=== PATIENT | male | born 1950 | race Caucasian/White ===

== ENCOUNTER → 2017-06-10 10:19 | Outpatient (CLI) | payer MEDICARE, OTHER, SELFPAY ==
[2017-06-10 12:46] LABS: Absolute Lymphocyte Count 1.05 X10^3/ul (0.83-4.51); Absolute Neutrophil Count 3.7 X10^3/uL (2.0-7.7); Basophil# 0.03 X10^3/uL; Basophil% 0.6 % (0-1); Eosinophil# 0.03 X10^3/uL; Eosinophils% 0.6 % (0-5); Hematocrit 40.5 % (40-54); Hemoglobin 13.7 g/dl (13.0-16.5); Lymphocyte # 1.05 X10^3/ul (4.0); Lymphocyte % 19.7 % (19-41); Mean Corp Hgb Conc 33.8 g/gl (32-36); Mean Corpuscular Hgb 32.3 pg (27.0-32.0); Mean Corpuscular Volume 95.5 fL (80-94); Mean Platelet Vol. 9.7 fl (6.2-12.0); Monocyte% 9.4 % (0-10); Neutrophil # 3.71 X10^3/uL (2.7-7.7); Neutrophil % 69.5 % (47-70); Platelet Count 203 K/mm3 (150-450); RBC Distribution Width CV 13.6 % (11.6-14.6); RBC Distribution Width SD 45.6 fl (35.1-43.9); Red Blood Count 4.24 M/mm3 (4.6-6.2); White Blood Count 5.3 K/mm3 (4.4-11.0)
[2017-06-10 12:50] LABS: ALB/GLOB Ratio 1.2 RATIO (0.9-2.4); AST(SGOT) 20 U/L (15-37); Alanine Aminotransfer ALT/SGPT 30 U/L (16-61); Albumin, Serum 3.8 g/dL (3.2-5.0); Alkaline Phosphatase 76 U/L (45-117); Anion Gap 8 (5-15); BUN 14 mg/dL (7-18); BUN/Creat Ratio 10.9 RATIO (10-20); CRP 6.72 mg/L (0.0-3.0); Calcium,Total 9.4 mg/dL (8.5-10.1); Chloride 102 mmol/L (98-107); Creatinine, Serum 1.29 mg/dL (0.70-1.30); EST Glomerular Filtration Rate 59 mL/min (>60); Est Glom Filt Rate - Afr Amer 72 mL/min (>60); Globulin 3.2 g/dL (2.2-4.2); Glucose 109 mg/dL (74-106); Potassium 3.9 mmol/L (3.5-5.1); Sodium Level 139 mmol/L (136-145); Uric Acid 10.7 mg/dL (3.5-7.2)
[2017-06-10 12:55] LABS: POSITIVE COUNT NO; POSITIVE DIFFERENTIAL NO; POSITIVE MORPHOLOGY NO
[2017-06-10 13:02] LABS: Vitamin D,25 Hydroxy 21.2 ng/mL (29.95-100.01)
== END ==
PROVIDERS: Family Provider Family Medicine; PCP Family Medicine; Visit Provider Family Medicine
DX: M10.9 Gout, unspecified (principal); M77.42 Metatarsalgia, left foot
CPT/HCPCS: 36415; 80053; 82306; 84550; 85025; 86140

== ENCOUNTER → 2017-07-14 13:20 | Outpatient (CLI) | payer MEDICARE, OTHER, SELFPAY ==
--- NOTE | 2017-07-14 13:20 | DT_ITS ---
This patient was seen during an EMR downtime July 13, 2017 - July 20, 2017. This patient may have a combination of paper and electronic documentation or all paper documentation. All documentation is viewable within the e-chart portion of [facility] for each patient visit.
[2017-07-19 09:49] LABS: ALB/GLOB Ratio 1.3 RATIO (0.9-2.4); AST(SGOT) 28 U/L (15-37); Albumin, Serum 3.8 g/dL (3.2-5.0); Alkaline Phosphatase 79 U/L (45-117); BUN 14 mg/dL (7-18); BUN/Creat Ratio 11.9 RATIO (10-20); Creatinine, Serum 1.18 mg/dL (0.70-1.30); EST Glomerular Filtration Rate 66 mL/min (>60); Est Glom Filt Rate - Afr Amer 80 mL/min (>60); Glucose 97 mg/dL (74-106); Protein, Total 6.8 g/dL (6.4-8.2); Uric Acid 6.2 mg/dL (3.5-7.2)
[2017-07-19 09:50] LABS: Alanine Aminotransfer ALT/SGPT 34 U/L (16-61); Anion Gap 8 (5-15); Chloride 106 mmol/L (98-107); Potassium 3.5 mmol/L (3.5-5.1); Sodium Level 140 mmol/L (136-145)
== END ==
PROVIDERS: Family Provider Family Medicine; PCP Family Medicine; Visit Provider Family Medicine
DX: M10.9 Gout, unspecified (principal)
CPT/HCPCS: 80053; 84550

== ENCOUNTER → 2017-09-17 14:04 | Outpatient (CLI) | payer MEDICARE, OTHER, SELFPAY ==
--- NOTE | 2017-09-17 14:11 | RAD_ITS ---
STUDY: X-RAY - RIGHT KNEE REASON FOR EXAM: Male, 67 years old. Right knee was hit by a chair on previous night, pain TECHNIQUE: 4 view(s) of the knee. COMPARISON: None. FINDINGS: Normal visualized distal femur. Normal visualized proximal tibia and fibula. Normal proximal tibiofibular articulation. Normal medial femorotibial compartment. Normal lateral femorotibial compartment. Normal patellofemoral articulation. There is no demonstrated joint effusion. The soft tissue structures are unremarkable. RAD/Knee 4 or More Views IMPRESSION: Normal x-ray examination of the knee. Electronically Signed: Abel Crawley MD at 8:20 EDT , Service support ,
== END ==
PROVIDERS: Family Provider Family Medicine; PCP Family Medicine; Visit Provider Nurse Practitioner Family
DX: S89.91XA Unspecified injury of right lower leg, initial encounter (principal)
CPT/HCPCS: 73562; 73564

== ENCOUNTER → 2017-10-29 08:23 | Outpatient (CLI) | payer MEDICARE, OTHER, SELFPAY ==
[2017-10-29 10:25] LABS: Absolute Lymphocyte Count 0.93 X10^3/ul (0.83-4.51); Absolute Neutrophil Count 2.9 X10^3/uL (2.0-7.7); Basophil# 0.03 X10^3/uL; Basophil% 0.7 % (0-1); Eosinophil# 0.15 X10^3/uL; Eosinophils% 3.4 % (0-5); Hematocrit 37.8 % (40-54); Hemoglobin 12.6 g/dl (13.0-16.5); Lymphocyte # 0.93 X10^3/ul (4.0); Lymphocyte % 20.9 % (19-41); Mean Corp Hgb Conc 33.3 g/gl (32-36); Mean Corpuscular Volume 95.9 fL (80-94); Mean Platelet Vol. 9.6 fl (6.2-12.0); Neutrophil # 2.94 X10^3/uL (2.7-7.7); Platelet Count 165 K/mm3 (150-450); RBC Distribution Width CV 13.7 % (11.6-14.6); RBC Distribution Width SD 48.2 fl (35.1-43.9); Red Blood Count 3.94 M/mm3 (4.6-6.2); White Blood Count 4.5 K/mm3 (4.4-11.0)
[2017-10-29 10:38] LABS: POSITIVE COUNT NO; POSITIVE DIFFERENTIAL NO; POSITIVE MORPHOLOGY NO
[2017-10-29 10:44] LABS: Vitamin D,25 Hydroxy 19.9 ng/mL (29.95-100.01)
[2017-10-29 10:59] LABS: ALB/GLOB Ratio 1.2 RATIO (0.9-2.4); AST(SGOT) 23 U/L (15-37); Alanine Aminotransfer ALT/SGPT 37 U/L (16-61); Albumin, Serum 3.7 g/dL (3.2-5.0); Alkaline Phosphatase 90 U/L (45-117); Anion Gap 11 (5-15); BUN 15 mg/dL (7-18); BUN/Creat Ratio 12.4 RATIO (10-20); Calcium,Total 8.6 mg/dL (8.5-10.1); Chloride 103 mmol/L (98-107); Cholesterol 192 mg/dL (200); Creatinine, Serum 1.21 mg/dL (0.70-1.30); EST Glomerular Filtration Rate 64 mL/min (>60); Est Glom Filt Rate - Afr Amer 77 mL/min (>60); Ferritin 287 ng/mL (26-388); Glucose 115 mg/dL (74-106); High Density Lipoprotein 28 mg/dL; PSA,Total - Annual Screen 0.49 ng/mL (0.00-4.00); Protein, Total 6.7 g/dL (6.4-8.2); Sodium Level 141 mmol/L (136-145); Thyroid Stim Hormone (TSH) 2.07 uIU/mL (0.358-3.74); Triglycerides 524 mg/dL; Uric Acid 6.1 mg/dL (3.5-7.2)
== END ==
PROVIDERS: Family Provider Family Medicine; PCP Family Medicine; Visit Provider Family Medicine
DX: Z00.00 Encounter for general adult medical examination without abnormal findings (principal); E79.0 Hyperuricemia without signs of inflammatory arthritis and tophaceous disease; M10.9 Gout, unspecified
CPT/HCPCS: 36415; 80053; 80061; 82306; 82728; 84153; 84443; 84550; 85025; G0103

== ENCOUNTER 2017-12-13 14:04 | Observation (INO) | payer MEDICARE, OTHER, SELFPAY ==
[2017-12-13] VITALS (8 sets, daily range): BP systolic 95–112; BP diastolic 53–73; PULSE 53–67; RESP 15–20; TEMP 36.4–36.6; O2SAT 96–100; BMI 30.8; BMI 31.1; BMI 31.2
--- NOTE | 2017-12-13 14:15 | NURSING ---
NO OLD EKGS
--- NOTE | 2017-12-13 14:17 | RAD_ITS ---
STUDY: X-RAY CHEST REASON FOR EXAM: Male, 67 years old. Chest pain TECHNIQUE: AP COMPARISON: 11/26/2016 FINDINGS: Lungs are mildly underexpanded with atelectasis in both lung bases. No airspace consolidation. EKG leads project over the chest. There is no demonstrated pleural abnormality. Normal size heart. Normal mediastinum and byron. Normal visualized pulmonary arteries. There is atherosclerotic calcification of the aortic arch with tortuosity. No acute bony process. There is no demonstrated abnormality of the visualized soft tissue structures of the upper abdomen. RAD/Chest 1 View (Portable) IMPRESSION: 1. Hypoinflation with mild bibasilar atelectasis. 2. No airspace consolidation. Electronically Signed: Abel Crawley MD at 15:21 EST , Service support ,
--- NOTE | 2017-12-13 14:17 | EKG12_ITS ---
Test Reason : CP Blood Pressure : / mmHG Vent. Rate : 059 BPM Atrial Rate : 059 BPM P-R Int : 168 ms QRS Dur : 098 ms QT Int : 422 ms P-R-T Axes : 019 017 039 degrees QTc Int : 417 ms Sinus bradycardia Otherwise normal ECG Confirmed by SAPNA ACOSTA, MARLON ([id number]), editor managing newspaper ATILIO PLEITEZ ([id number]) on 12/16/2017 1:37:49 PM Referred By: GRADY Confirmed By:MARLON ALEJO MD
[2017-12-13 14:37] LABS: Absolute Lymphocyte Count 1.46 X10^3/ul (0.83-4.51); Absolute Neutrophil Count 3.6 X10^3/uL (2.0-7.7); Basophil# 0.04 X10^3/uL; Basophil% 0.7 % (0-1); Eosinophil# 0.15 X10^3/uL; Eosinophils% 2.7 % (0-5); Hematocrit 38.3 % (40-54); Hemoglobin 12.5 g/dl (13.0-16.5); Lymphocyte # 1.46 X10^3/ul (4.0); Lymphocyte % 25.9 % (19-41); Mean Corp Hgb Conc 32.6 g/gl (32-36); Mean Corpuscular Hgb 32.1 pg (27.0-32.0); Mean Corpuscular Volume 98.5 fL (80-94); Mean Platelet Vol. 9.3 fl (6.2-12.0); Monocyte% 7.1 % (0-10); Neutrophil # 3.58 X10^3/uL (2.7-7.7); Neutrophil % 63.4 % (47-70); Platelet Count 208 K/mm3 (150-450); RBC Distribution Width CV 14.2 % (11.6-14.6); RBC Distribution Width SD 51.2 fl (35.1-43.9); Red Blood Count 3.89 M/mm3 (4.6-6.2); White Blood Count 5.6 K/mm3 (4.4-11.0)
[2017-12-13] MEDS: Aspirin 81 MG TAB.CHEW 324 MG PO (14:40)
[2017-12-13] MEDS: 0.9% Normal Saline 1,000 ML 150 ML IV (14:40)
[2017-12-13 14:41] LABS: POSITIVE COUNT NO; POSITIVE DIFFERENTIAL NO; POSITIVE MORPHOLOGY NO
[2017-12-13 14:50] LABS: Anion Gap 5 (5-15); BUN 17 mg/dL (7-18); BUN/Creat Ratio 14.2 RATIO (10-20); Calcium,Total 8.6 mg/dL (8.5-10.1); Chloride 102 mmol/L (98-107); EST Glomerular Filtration Rate 64 mL/min (>60); Est Glom Filt Rate - Afr Amer 78 mL/min (>60); Estimated Creatinine Clearance 61.68 ml/min; Glucose 75 mg/dL (74-106); Potassium 3.7 mmol/L (3.5-5.1); Sodium Level 136 mmol/L (136-145)
--- NOTE | 2017-12-13 14:54 | ED.VISSUMM ---
- ER Visit Summary Date of Service: 12/13/17 Chief Complaint: Chest pain History of Present Illness: The patient is a [address] Arnaldo Casiano. He reports that he has had intermittent chest pain for the past 5 days. States the first 2 episodes were Thursday and when he was riding an exercise bike. States the pain was a sharp left-sided pain that lasted approximately 2 hours. Was 4 out of 10 at worst and is pain-free currently. States that it was worsened by exertion relieved by rest. He was short of breath and diaphoretic with this. Reports that today he had an episode while he was at rest. Physical Examination: Vitals: Stable. Afebrile. General: Well-nourished and well-developed. Head: Normocephalic atraumatic. Neck: Supple, no lymphadenopathy. No JVD. Nontender. Cardiovascular: Regular rate and rhythm. 2 out of 6 systolic murmur. Respiratory: No respiratory distress. Clear to auscultation bilaterally. Abdominal: Soft, nontender, nondistended, normal bowel sounds. No guarding, rebound, or peritoneal signs. Back: Nontender. Extremities: Nontender, no edema. Skin: Normal color, no rash. Neurologic: Alert and oriented ?3. Cranial nerves II through XII are intact. Normal strength and sensation. Psych: Normal affect. Test Results: EKG is sinus bradycardia at 59 with no acute changes. Chest x-ray shows no acute disease. CBC is more for an H&H 12.5 and 30.3. Chem-7 is normal. Troponin is negative. Emergency Department Course and Treatment: Patient was treated with aspirin. Is been pain-free while here. Treatment Plan: Patient's RACHEL score is only 1. However, his history is very concerning for unstable angina. He will be admitted to the hospital for further evaluation and treatment. Disposition: Admitted in stable condition. Impression: 1. Chest pain. 2. RACHEL score 1. This note was generated with Knock Knock dictation software. It may contain incorrect words, spelling, and punctuation that were not noted in review of the chart prior to signing ED Disposition - Plan for ED Patient: Chief Complaint: Chest Pain Referrals: Arnaldo Casiano MD [Primary Care Provider] -
--- NOTE | 2017-12-13 15:35 | HP.PCM_ITS ---
<Vipin Amos - Last Filed: 12/13/17 15:26> Problem List (1) Chest pain Status: Acute (2) HTN (hypertension) Status: Chronic (3) GERD (gastroesophageal reflux disease) Status: Chronic History of Present Illness Date of Admission: 12/13/17 Chief Complaint: chest pain The patient is a 67 year old M with a pmhx of HTN, GERD, who presents to the ER with chest pain that has occurred 3x this past week. He has not felt this before. He developed this first on Thursday. He switched from a recumbant exercise bike to an upright and was pedaling hard and started to have sharp chest pain over the left breast that he described as a muscle cramp. It occurred again with the same exercise on . Today he woke up with a dull ache over this area 02/18 which is still present. Today he denies radiation, SOB, palp, LH, dizziness, or diaphoresis. He had a stress test about 7 years ago that was negative. His dad did have 3x OR's by the age of 60, his mom had a stroke. He does not smoke. [] Past Medical History Past Medical History (Chronic Problems): Chronic Problems HTN (hypertension) (Chronic) GERD (gastroesophageal reflux disease) (Chronic) Allergies Penicillins Allergy (Verified 12/13/17 14:05) Anaphylaxis STEROIDS Adverse Reaction (Uncoded 12/13/17 14:06) Shortness of breath Home Medications: Ambulatory Orders Medication Instructions Recorded Hydrochlorothiazide 12.5 mg PO DAILY 08/15/13 Lisinopril [Zestril] 20 mg PO BID 04/28/14 Magnesium Oxide [Magnesium] 250 mg PO DAILY 04/28/14 Allopurinol [Zyloprim] 200 mg PO DAILY 12/13/17 Famotidine 40 mg PO DAILY 12/13/17 Surgical History: herniorrhaphy Psychiatric History: No pertinent psych hx Lives: Spouse/ Significant Other Smoking Status: Never smoker Tobacco Use: Non-smoker Alcohol: None Drugs: None - *Family History Maternal History Items: Stroke Paternal History Items: Heart Disease - 3x OR by the age of 60 Review of Systems Constitutional: Denies: Chills, Fever, Weight Change HEENT: Denies: Head Aches, Sinus Congestion, Sinus Drainage Cardiovascular: Reports: Chest Pressure. Denies: Chest Pain, Palpitations Respiratory: Denies: Cough, Shortness of breath at rest, Sputum production Gastrointestinal: Denies: Abdominal Pain, Nausea, Vomiting Genitourinary: Denies: Dysuria Musculoskeletal: Denies: Joint Pain, Joint Tenderness Skin: Denies: Rash, Wounds Neurological: Denies: Numbness, Tingling, Focal weakness Psychiatric: Denies: Anxiety, Depression, Homicidal Ideations, Suicidal Ideations Hematologic/ Lymphatic: Denies: Easy Bruising, Easy Bleeding VTE Information - Inpt Only VTE Present on Admission: No VTE Mechan Device Prophylaxis: None VTE Pharm Prophylaxis ordered?: No Reason prophylaxis not ordered:: Procedure Not Indicated Patient Problems: Active and Suspected Problems Chest pain (Acute) - Physical Exam General: Alert, Oriented x3, Cooperative HEENT: Atraumatic, PERRLA, EOMI, Normocephalic Neck: Supple, No JVD, Negative Carotid Bruits Lungs: Clear to auscultation, Normal air movement Cardiovascular: Regular rate, No murmurs Abdomen: Bowel Sounds Present, Soft, Non Tender Extremities: No edema, Capillary Refill Less than 3 Seconds Skin: No rashes, No breakdown Musculoskeletal: No Tenderness to Palpation of Joints or Extremities Neurological: Cranial nerves II-XII grossly intact Psych/Mental Status: Normal Affect, Appropriate, Alert and oriented to time, place, person, mood and affect Vital Signs Temp Pulse Resp BP Pulse Ox 97.6 F L 67 18 112/71 98 12/13/17 14:06 12/13/17 14:06 12/13/17 14:06 12/13/17 14:06 12/13/17 14:06 Oxygen Flow Rate (L/min) 2 Oxygen Delivery Method Nasal Cannula Weight: 215 lb Body Mass Index (BMI) 30.8 Laboratory Tests Past 24 Hrs 12/13/17 12/13/17 14:18 14:18 WBC 5.6 RBC 3.89 L Hgb 12.5 L Hct 38.3 L MCV 98.5 H MCH 32.1 H MCHC 32.6 RDW 14.2 RDW Differential 51.2 H Plt Count 208 MPV 9.3 Immature Gran % (Auto) 0.200 Neut % (Auto) 63.4 Lymph % (Auto) 25.9 [place] % (Auto) 7.1 Eos % (Auto) 2.7 Baso % (Auto) 0.7 Absolute Neuts (auto) 3.6 Absolute Lymphs (auto) 1.46 Total Counted Not Reportable Sodium 136 Potassium 3.7 Chloride 102 Carbon Dioxide 29.0 Anion Gap 5 BUN 17 Creatinine 1.20 Estim Creat Clear Calc 61.68 Est GFR (MDRD) Af Amer 78 Est GFR (MDRD) Non-Af 64 BUN/Creatinine Ratio 14.2 Glucose 75 Calcium 8.6 Troponin I < 0.015 Assessment/Plan All Active Problems Chest pain (Acute) Contusion of left hip (Acute) 1. Chest pain - negative trop, cxr, EKG. Risk factors include + family hx, htn, age. Cycle enzymes. Repeat AM EKG. Stress test in AM. Maintain on tele. 2. HTN - stable 3. GERD - pepcid 4. Gout - allopurinol DVT ppx: early ambulation This patient was seen by Vipin Amos PA-C under the supervision of Doctor Marleni. <Jack Yepez F - Last Filed: 12/13/17 16:04> History of Present Illness The patient is a 67 year old M [] Past Medical History Allergies Penicillins Allergy (Verified 12/13/17 14:05) Anaphylaxis STEROIDS Adverse Reaction (Uncoded 12/13/17 14:06) Shortness of breath - Physical Exam Vital Signs Temp Pulse Resp BP Pulse Ox 97.6 F L 61 20 H 103/73 98 12/13/17 14:06 12/13/17 15:33 12/13/17 15:33 12/13/17 15:33 12/13/17 15:33 Oxygen Flow Rate (L/min) 2 Oxygen Delivery Method Nasal Cannula Weight: 215 lb Body Mass Index (BMI) 30.8 Laboratory Tests Past 24 Hrs 12/13/17 12/13/17 14:18 14:18 WBC 5.6 RBC 3.89 L Hgb 12.5 L Hct 38.3 L MCV 98.5 H MCH 32.1 H MCHC 32.6 RDW 14.2 RDW Differential 51.2 H Plt Count 208 MPV 9.3 Immature Gran % (Auto) 0.200 Neut % (Auto) 63.4 Lymph % (Auto) 25.9 [place] % (Auto) 7.1 Eos % (Auto) 2.7 Baso % (Auto) 0.7 Absolute Neuts (auto) 3.6 Absolute Lymphs (auto) 1.46 Total Counted Not Reportable Sodium 136 Potassium 3.7 Chloride 102 Carbon Dioxide 29.0 Anion Gap 5 BUN 17 Creatinine 1.20 Estim Creat Clear Calc 61.68 Est GFR (MDRD) Af Amer 78 Est GFR (MDRD) Non-Af 64 BUN/Creatinine Ratio 14.2 Glucose 75 Calcium 8.6 Troponin I < 0.015 Code Visit Addendum: Dr. Yepez I personally examined the patient and reviewed the chart. I agree with the above. 67-year-old male with past medical history of gout, GERD, hypertension presenting with 2 episodes of chest pain with activity last week, and up episode of chest pain this morning at rest. He states that his pain is was a sharp pain over the left side of his chest that he described as a muscle cramp or spasm. No shortness of breath associated with this, no radiation of the pain. He does not smoke, he does have a family history of heart disease where his father had a had 3 heart attacks but the age of 60. Will admit for chest pain rule out with serial cardiac enzymes and obtain an exercise stress echo in the morning. Inpatient E&M: 29612 Init Hosp L3 OBSV E&M: 22537 Initial observation care L3
--- NOTE | 2017-12-13 18:09 | EKG12_ITS ---
Test Reason : CP ADMISSION Blood Pressure : / mmHG Vent. Rate : 058 BPM Atrial Rate : 058 BPM P-R Int : 180 ms QRS Dur : 100 ms QT Int : 440 ms P-R-T Axes : 023 018 024 degrees QTc Int : 431 ms Sinus bradycardia Otherwise normal ECG When compared with ECG of 13-DEC-2017 14:07, MANUAL COMPARISON REQUIRED, DATA IS UNCONFIRMED Confirmed by SAPNA ACOSTA, MARLON ([id number]), photography editor ATILIO PLEITEZ ([id number]) on 12/17/2017 4:05:40 PM Referred By: LAKHWINDER Confirmed By:MARLON ALEJO MD
[2017-12-13] MEDS: Famotidine 20 MG Tablet 40 MG PO (21:23)
[2017-12-13] MEDS: hydroCHLOROthiazide 12.5mg 12.5 MG PO (21:23)
[2017-12-13] MEDS: Lisinopril 20 MG Tablet PO (21:23)
[2017-12-13] MEDS: 0.9% NaCl Peripheral Flush Adult/Peds IV (21:24)
[2017-12-14] VITALS (9 sets, daily range): BP systolic 93–103; BP diastolic 56–62; PULSE 53–90; RESP 15–18; TEMP 36.4–36.9; O2SAT 92–98
--- NOTE | 2017-12-14 00:04 | NURSING ---
PT REPORTS HE TAKES HIS HCTZ AT BEDTIME. HCTZ GIVEN WITH HS MEDS PER PT'S REQUEST.
[2017-12-14 04:06] LABS: Hematocrit 34.4 % (40-54); Hemoglobin 11.8 g/dl (13.0-16.5); Mean Corp Hgb Conc 34.3 g/gl (32-36); Mean Corpuscular Hgb 33.4 pg (27.0-32.0); Mean Corpuscular Volume 97.5 fL (80-94); Mean Platelet Vol. 9.3 fl (6.2-12.0); Platelet Count 160 K/mm3 (150-450); RBC Distribution Width CV 13.9 % (11.6-14.6); RBC Distribution Width SD 47.7 fl (35.1-43.9); Red Blood Count 3.53 M/mm3 (4.6-6.2)
[2017-12-14 04:08] LABS: Scan Indicated on CBC? Y/N NO
[2017-12-14 04:29] LABS: Prothrombin Time (Protime)PT. 13.3 SECONDS (11.7-14.9)
[2017-12-14 04:30] LABS: Partial Thromboplast Time 28.1 Seconds (24.1-36.2)
[2017-12-14 04:32] LABS: Anion Gap 9 (5-15); BUN 18 mg/dL (7-18); BUN/Creat Ratio 18.1 RATIO (10-20); Calcium,Total 8.3 mg/dL (8.5-10.1); Chloride 104 mmol/L (98-107); Creatinine, Serum 0.99 mg/dL (0.70-1.30); EST Glomerular Filtration Rate 80 mL/min (>60); Est Glom Filt Rate - Afr Amer 97 mL/min (>60); Estimated Creatinine Clearance 74.76 ml/min; Glucose 107 mg/dL (74-106); Potassium 3.4 mmol/L (3.5-5.1); Sodium Level 139 mmol/L (136-145)
--- NOTE | 2017-12-14 05:00 | EKG12_ITS ---
Test Reason : AM EKG Blood Pressure : / mmHG Vent. Rate : 062 BPM Atrial Rate : 062 BPM P-R Int : 172 ms QRS Dur : 100 ms QT Int : 430 ms P-R-T Axes : 026 006 031 degrees QTc Int : 436 ms Normal sinus rhythm Possible Inferior infarct , age undetermined Abnormal ECG When compared with ECG of 13-DEC-2017 16:52, MANUAL COMPARISON REQUIRED, DATA IS UNCONFIRMED Confirmed by SAPNA ACOSTA, MARLON ([id number]), assignment desk editor ATILIO PLEITEZ ([id number]) on 12/17/2017 4:02:28 PM Referred By: LAKHWINDER Confirmed By:MARLON ALEJO MD
--- NOTE | 2017-12-14 05:55 | STEWCON_ITS ---
Reason For Study: Chest Pain Stress Results Protocol: Bird Protocol Maximum Predicted HR: 153 bpm Target HR: 130 bpm % Maximum Predicted HR: 100 % DurationHeart Rate Stage (mm:ss) (bpm) BP Comment Baseline 66 104/661/10 Chest Tightness Bird Protocol Stage I 3:00 110 110/701/10 Chest Tightness Bird Protocol Stage II 3:00 130 134/681/10 Chest Tightness Bird Protocol Stage III 3:00 153 142/661/10 Chest Tightness, Mild Dyspnea Recovery 96 102/641/10 Chest Tightness Stress Duration: 9:00 mm:ss Maximum Stress HR: 153 bpm METS: 10 Baseline Echocardiogram Findings Stress Echo Wall motion Data Resting WM Intermediate WM Stress WM Resting Wall Motion Wall Motion Stress No regional wall motion No regional wall motion abnormalities noted. abnormalities noted. Ejection Fraction 55 %. Ejection Fraction 65 %. Interpretation Summary Exercise stress echo. 67-year-old man with a history of chest pain. Stress protocol: Resting EKG demonstrates normal sinus rhythm with rate of 66 bpm normal intervals and noted resting blood pressure 104/66 mmHg. The patient exercised according to regular Bird protocol for a total duration of 9 minutes. The maximum heart rate attained was 176 bpm which was 115% of maximum predicted heart rate the maximum workload was 10.1 metabolic equivalents. The patient maintained sinus rhythm throughout the recording. At rest there were no ST or T wave changes noted suggest ischemia at peak exercise no ST or T wave changes were noted suggest ischemia. No clinical angina was noted the test was terminated due to leg fatigue. No arrhythmias were noted. Stress echocardiographic images. Resting echocardiogram performed with Definity demonstrated an ejection fraction of 55%. The stress echocardiographic images demonstrated improvement in left ventricular systolic function with an estimated ejection fraction of 65%. No wall motion abnormalities were noted. Conclusion: Normal stress echocardiographic images with no evidence of ischemia. Excellent functional aerobic capacity. No arrhythmias noted. Ordering Physician: Jack Yepez Referring Physician: Dwayne Klein Performed By: Radha Thornton, NASH, RVT
[2017-12-14] MEDS: Lisinopril 20 MG Tablet PO (06:14)
[2017-12-14] MEDS: 0.9% NaCl Peripheral Flush Adult/Peds IV (06:14)
[2017-12-14] MEDS: hydroCHLOROthiazide 12.5mg 12.5 MG PO (09:58)
[2017-12-14] MEDS: Allopurinol 100 MG Tablet 200 MG PO (09:58)
[2017-12-14] MEDS: Famotidine 20 MG Tablet 40 MG PO (09:58)
--- NOTE | 2017-12-14 11:09 | DCINST_ITS ---
- Discharge Diagnoses Current Active Problems: Current Active and Chronic Problems HTN (hypertension) (Chronic) GERD (gastroesophageal reflux disease) (Chronic) Chest pain (Acute) You will use the following diet at home:: Cardiac Your food should be the consistency of: Regular Your liquids should be the consistency of: Regular/Thin Discharge Activity: Return to Normal Activity Allergies/Adverse Reactions: Allergies Penicillins Allergy (Verified 12/13/17 14:05) Anaphylaxis STEROIDS Adverse Reaction (Uncoded 12/13/17 14:06) Shortness of breath Medications to take at Discharge Hydrochlorothiazide 12.5 mg PO BID 08/15/13 Lisinopril [Zestril] 20 mg PO BID 04/28/14 Allopurinol [Zyloprim] 200 mg PO DAILY 12/13/17 Famotidine 40 mg PO BID 12/13/17 Primary Care Physician: Arnaldo Casiano MD [Primary Care Provider] - Please follow up with your Primary Care Physician in: 1-2 weeks Test Results: Test results from this visit will be discussed in further detail at your follow- up appointment, if applicable. Proposed Discharge Date: 12/14/17
--- NOTE | 2017-12-14 11:27 | PHA.DC.MR ---
Pharmacy Service has performed discharge medication reconciliation for this patient. Home medication list reviewed, no new medications upon discharge. The patient's discharge medication list was reviewed for discrepancies and discrepancies were resolved. Home Medications Hydrochlorothiazide 12.5 mg PO BID 08/15/13 Lisinopril [Zestril] 20 mg PO BID 04/28/14 Allopurinol [Zyloprim] 200 mg PO DAILY 12/13/17 Famotidine 40 mg PO BID 12/13/17
--- NOTE | 2017-12-14 14:36 | DS.PCM_ITS ---
<Vipin Amos - Last Filed: 12/14/17 14:32> Discharge Date and Diagnosis Date of Admission: 12/13/17 Date of Discharge: 12/14/17 - Primary Discharge Diagnosis Chest pain-musculoskeletal Hypertension Hypokalemia GERD Mild, mildly macrocytic anemia - Secondary Discharge Diagnosis Chronic Problems HTN (hypertension) (Chronic) GERD (gastroesophageal reflux disease) (Chronic) Hospital Course and Treatment Imaging Results: 12/14/17 05:55 Stress Test Echo W/Contrast [ECHO] AM (NON MEDS) Operations: None Procedures: Stress test Summary of Care Provided: Hospital Course: The patient is a 67 year old M with past medical history of GERD, hypertension, who presented to the emergency room with complaints of chest pain started when he switched from recumbent to upright bike. Occurred twice with exertion on the exercise bike. The morning of admission it occurred when he woke up. He described it as a left-sided chest muscle ache pain which is 1 out of 10 when he presented to the ER. He had a negative troponin and negative chest x-ray. He had undergone stress testing about 7-8 years earlier which was negative. He is admitted to the PCU and placed on telemetry. No events overnight. Troponins were cycled and remained negative. He underwent a stress test the following morning and did very well with no ischemia indicated. He was discharged home in stable condition he will need to follow-up with his PCP in 1-2 weeks. He had some mild hypokalemia before he left and was given potassium supplementation. This patient was seen by Vipin Amos PA-C under the supervision of Doctor Patricia. [] - Physical Exam General: Alert, Oriented x3, Cooperative HEENT: Atraumatic, PERRLA, EOMI, Normocephalic Neck: Supple, No JVD, Negative Carotid Bruits Lungs: Clear to auscultation, Normal air movement Cardiovascular: Regular rate, No murmurs, - - Mild chest tenderness on palpation of the upper left chest wall. Abdomen: Bowel Sounds Present, Soft, Non Tender Extremities: No edema, Capillary Refill Less than 3 Seconds Skin: No rashes, No breakdown Musculoskeletal: No Tenderness to Palpation of Joints or Extremities Neurological: Cranial nerves II-XII grossly intact Psych/Mental Status: Normal Affect, Appropriate Vital Signs Temp Pulse Resp BP Pulse Ox 97.9 F 80 18 97/62 98 12/14/17 11:52 12/14/17 11:52 12/14/17 11:52 12/14/17 11:52 12/14/17 11:52 Oxygen Flow Rate (L/min) 2 Oxygen Delivery Method Room Air Weight: 217 lb 6.012 oz Body Mass Index (BMI) 31.1 Intake and Output for Last 24 Hours 12/13/17 12/13/17 12/14/17 00:59 23:59 23:59 Intake Total 340 / 340 Balance 340 / 340 Laboratory Tests Past 24 Hrs 12/13/17 12/13/17 12/13/17 14:18 14:18 18:20 WBC 5.6 RBC 3.89 L Hgb 12.5 L Hct 38.3 L MCV 98.5 H MCH 32.1 H MCHC 32.6 RDW 14.2 RDW Differential 51.2 H Plt Count 208 MPV 9.3 Immature Gran % (Auto) 0.200 Neut % (Auto) 63.4 Lymph % (Auto) 25.9 [place] % (Auto) 7.1 Eos % (Auto) 2.7 Baso % (Auto) 0.7 Absolute Neuts (auto) 3.6 Absolute Lymphs (auto) 1.46 Total Counted Not Reportable PT INR APTT Sodium 136 Potassium 3.7 Chloride 102 Carbon Dioxide 29.0 Anion Gap 5 BUN 17 Creatinine 1.20 Estim Creat Clear Calc 61.68 Est GFR (MDRD) Af Amer 78 Est GFR (MDRD) Non-Af 64 BUN/Creatinine Ratio 14.2 Glucose 75 Calcium 8.6 Troponin I < 0.015 < 0.015 12/13/17 12/14/17 12/14/17 20:48 03:50 03:50 WBC 4.0 L RBC 3.53 L Hgb 11.8 L Hct 34.4 L MCV 97.5 H MCH 33.4 H MCHC 34.3 RDW 13.9 RDW Differential 47.7 H Plt Count 160 MPV 9.3 Immature Gran % (Auto) Neut % (Auto) Lymph % (Auto) [place] % (Auto) Eos % (Auto) Baso % (Auto) Absolute Neuts (auto) Absolute Lymphs (auto) Total Counted PT 13.3 INR 1.0 APTT 28.1 Sodium Potassium Chloride Carbon Dioxide Anion Gap BUN Creatinine Estim Creat Clear Calc Est GFR (MDRD) Af Amer Est GFR (MDRD) Non-Af BUN/Creatinine Ratio Glucose Calcium Troponin I < 0.015 12/14/17 03:50 WBC RBC Hgb Hct MCV MCH MCHC RDW RDW Differential Plt Count MPV Immature Gran % (Auto) Neut % (Auto) Lymph % (Auto) [place] % (Auto) Eos % (Auto) Baso % (Auto) Absolute Neuts (auto) Absolute Lymphs (auto) Total Counted PT INR APTT Sodium 139 Potassium 3.4 L Chloride 104 Carbon Dioxide 26.0 Anion Gap 9 BUN 18 Creatinine 0.99 Estim Creat Clear Calc 74.76 Est GFR (MDRD) Af Amer 97 Est GFR (MDRD) Non-Af 80 BUN/Creatinine Ratio 18.1 Glucose 107 H Calcium 8.3 L Troponin I Discharge Diet: Low fat/ Low Cholesterol, 2000 mg Sodium Diet Discharge Activity: Return to Normal Activity Home Medications: Medications to take at Discharge Hydrochlorothiazide 12.5 mg PO BID 08/15/13 Lisinopril [Zestril] 20 mg PO BID 04/28/14 Allopurinol [Zyloprim] 200 mg PO DAILY 12/13/17 Famotidine 40 mg PO BID 12/13/17 Primary Care Physician: Arnaldo Casiano MD [Primary Care Provider] - Please follow up with your Primary Care Physician in: 1-2 weeks Please Follow Up With: Arnaldo Casiano MD Disposition: Home Minutes spent on discharge:: 35 Patient Condition:: Stable Medical Necessity - Tobacco Use Smoking Status: Never smoker Tobacco Use: Non-smoker Meaningful Use Info Meaningful Use Diagnoses (Choose all that apply): None applicable <Luana Gomez - Last Filed: 12/14/17 15:35> Discharge Date and Diagnosis - Secondary Discharge Diagnosis Chronic Problems HTN (hypertension) (Chronic) GERD (gastroesophageal reflux disease) (Chronic) Hospital Course and Treatment Operations: None Summary of Care Provided: Patient seen under my supervision by Vipin ADAME The patient is a 67 year old M has medical history as detailed above was admitted with a complaint of chest pain which was worsened with exertion. Troponins were negative and chest x-ray was negative. He had a stress echocardiogram which was negative and showed no ischemia on 12/14/2017. Patient also had hypokalemia which was replaced prior to being discharged. Patient remained stable and was discharged home on 12/14/2017. Patient seen and examined prior to discharge. He had no complaints and felt well. He denied any fever chills, cough or chest pain, any shortness of breath, abdominal pain, any diarrhea vomiting. 12 point review of systems otherwise negative. Labs and vitals reviewed. o/e: Vital Signs Height 5 ft 10 in Weight: 217 lb 6.012 oz Weight in Pounds 217.4 lbs Pulse Ox 98 Temperature 97.9 F Pulse Rate 80 Respiratory Rate 18 Blood Pressure 97/62 Blood Pressure Position Semi-Fowlers []General: Alert, Oriented x3, Cooperative HEENT: Atraumatic, PERRLA, EOMI, Normocephalic Neck: Supple, No JVD, Negative Carotid Bruits Lungs: Clear to auscultation, Normal air movement Cardiovascular: Regular rate, No murmurs, Abdomen: Bowel Sounds Present, Soft, Non Tender Extremities: No edema, Capillary Refill Less than 3 Seconds Skin: No rashes, No breakdown Musculoskeletal: No Tenderness to Palpation of Joints or Extremities Neurological: Cranial nerves II-XII grossly intact Psych/Mental Status: Normal Affect, Appropriate Patient discharged home today. He is to follow up with his PCP. Rest of management as per Vipin Amos PA-C's note. Rest of assessment and plan as by Vipin Amos PA-C's note. - Physical Exam Vital Signs Temp Pulse Resp BP Pulse Ox 97.9 F 80 18 97/62 98 12/14/17 11:52 12/14/17 11:52 12/14/17 11:52 12/14/17 11:52 12/14/17 11:52 Oxygen Flow Rate (L/min) 2 Oxygen Delivery Method Room Air Weight: 217 lb 6.012 oz Body Mass Index (BMI) 31.1 Intake and Output for Last 24 Hours 12/13/17 12/13/17 12/14/17 00:59 23:59 23:59 Intake Total 340 / 340 Balance 340 / 340 Laboratory Tests Past 24 Hrs 12/13/17 12/13/17 12/14/17 18:20 20:48 03:50 WBC 4.0 L RBC 3.53 L Hgb 11.8 L Hct 34.4 L MCV 97.5 H MCH 33.4 H MCHC 34.3 RDW 13.9 RDW Differential 47.7 H Plt Count 160 MPV 9.3 PT INR APTT Sodium Potassium Chloride Carbon Dioxide Anion Gap BUN Creatinine Estim Creat Clear Calc Est GFR (MDRD) Af Amer Est GFR (MDRD) Non-Af BUN/Creatinine Ratio Glucose Calcium Troponin I < 0.015 < 0.015 12/14/17 12/14/17 03:50 03:50 WBC RBC Hgb Hct MCV MCH MCHC RDW RDW Differential Plt Count MPV PT 13.3 INR 1.0 APTT 28.1 Sodium 139 Potassium 3.4 L Chloride 104 Carbon Dioxide 26.0 Anion Gap 9 BUN 18 Creatinine 0.99 Estim Creat Clear Calc 74.76 Est GFR (MDRD) Af Amer 97 Est GFR (MDRD) Non-Af 80 BUN/Creatinine Ratio 18.1 Glucose 107 H Calcium 8.3 L Troponin I Code Visit Inpatient E&M: 17348 Disch Hosp
== END 2017-12-14 11:09 | disposition home or self-care (01) ==
LOC: ED 14:42 → PCU 15:57
PROVIDERS: Admitting Provider Family Medicine; Emergency Provider Emergency Medicine; Family Provider Family Medicine; PCP Family Medicine; Visit Provider Student in an Organized Health Care Education/Training Program
DX: R07.89 Other chest pain (principal); K21.9 Gastro-esophageal reflux disease without esophagitis; I10 Essential (primary) hypertension; E87.6 Hypokalemia; D53.9 Nutritional anemia, unspecified; Z79.899 Other long term (current) drug therapy; R06.02 Shortness of breath; R00.1 Bradycardia, unspecified; M10.9 Gout, unspecified
CPT/HCPCS: 36415; 71045; 80048; 84484; 85025; 85027; 85610; 85730; 93005; 93017; 93350; 96360; 96361; 99218; 99283; J7030; Q9957; A4216; C8928; G0378

== ENCOUNTER 2018-03-19 08:35 | Inpatient (IN) | payer MEDICARE, OTHER, SELFPAY ==
[2018-03-19 08:37] VITALS: BP 110/60; PULSE 54; RESP 16; TEMP 36.4; BMI 31.8
--- NOTE | 2018-03-19 08:38 | RAD_ITS ---
STUDY: X-RAY - LEFT ELBOW REASON FOR EXAM: Male, 67 years old. Pain following a fall. TECHNIQUE: 3 view(s) of the elbow. COMPARISON: None. FINDINGS: Depressed fracture of the radial head. Normal radiocapitellar and ulnotrochlear articulations. Joint effusion. RAD/Elbow min 3 Views IMPRESSION: Depressed fracture of the radial head with a joint effusion. Electronically Signed: Shimon Alcazar MD at 9:27 EST , Service support ,
--- NOTE | 2018-03-19 08:38 | RAD_ITS ---
STUDY: X-RAY - LEFT HIP REASON FOR EXAM: Male, 67 years old. Left hip pain following a fall. TECHNIQUE: 2 views of the hip. COMPARISON: None. FINDINGS: The Walls of a comminuted nondisplaced left intertrochanteric fracture. Normal visualized superior and inferior pubic rami and ischial tuberosities. RAD/HIP, UNI W/ Pelvis 2-3 Views IMPRESSION: Comminuted nondisplaced left intertrochanteric fracture. Electronically Signed: Shimon Alcazar MD at 9:27 EST , Service support ,
--- NOTE | 2018-03-19 08:39 | ED.VISSUMM ---
- ER Visit Summary Date of Service: 03/19/18 Chief Complaint: Fall on ice, left elbow, left hip pain History of Present Illness: The patient is a 67 M who was walking his dog when he slipped on some ice and fell onto his left side. Did not hit his head. No LOC. He complains of left elbow and left hip pain. Denies back pain. His pain is worse with movement. He was not able to ambulate after the fall. EMS was called to help lift him and transport him to the hospital. Physical Examination: Vitals are reviewed. Left hip exam reveals no tenderness. He has limited range of motion secondary to pain near the greater trochanteric area. There is no knee pain. He has 2+ DP pulses. Left elbow is tender over the lateral condyle. He has full range of motion of the joint with pain. Test Results: Left hip x-ray reveals a left intertrochanteric fracture. Left elbow x-ray reveals a radial head fracture. Emergency Department Course and Treatment: The patient was discussed with Dr. Salvador. He will be placed in a fabricated, Ortho-Glass left posterior long-arm splint. Patient was medicated with [place] and morphine. He will be admitted to the hospital. Treatment Plan: [] Disposition: Admit for surgery Impression: Left intertrochanteric hip fracture, left radial head fracture This note was generated with [employer] dictation software. It may contain incorrect words, spelling, and punctuation that were not noted in review of the chart prior to signing ED Disposition - Plan for ED Patient: Referrals: Arnaldo Casiano MD [Primary Care Provider] -
[2018-03-19] MEDS: HYDROcodone Bitartrate/Apap 5/325 Tablet PO (08:46)
--- NOTE | 2018-03-19 09:11 | EKG12_ITS ---
Test Reason : FALL Blood Pressure : / mmHG Vent. Rate : 063 BPM Atrial Rate : 063 BPM P-R Int : 156 ms QRS Dur : 096 ms QT Int : 432 ms P-R-T Axes : 043 018 048 degrees QTc Int : 442 ms Normal sinus rhythm Normal ECG Confirmed by MARLON ALEJO MD ([id number]), supervising editor trailer ATILIO PLEITEZ ([id number]) on 03/22/2018 11:21:50 AM Referred By: WAYNE Confirmed By:MARLON ALEJO MD
[2018-03-19 09:32] LABS: Absolute Lymphocyte Count 0.92 X10^3/ul (0.83-4.51); Absolute Neutrophil Count 3.4 X10^3/uL (2.0-7.7); Basophil# 0.03 X10^3/uL; Basophil% 0.6 % (0-1); Eosinophil# 0.14 X10^3/uL; Hematocrit 37.4 % (40-54); Hemoglobin 12.5 g/dl (13.0-16.5); Lymphocyte # 0.92 X10^3/ul (4.0); Lymphocyte % 19.6 % (19-41); Mean Corp Hgb Conc 33.4 g/gl (32-36); Mean Corpuscular Hgb 32.1 pg (27.0-32.0); Mean Corpuscular Volume 96.1 fL (80-94); Mean Platelet Vol. 9.2 fl (6.2-12.0); Monocyte# 0.24 X10^3/uL; Monocyte% 5.1 % (0-10); Neutrophil # 3.35 X10^3/uL (2.7-7.7); Neutrophil % 71.5 % (47-70); Platelet Count 147 K/mm3 (150-450); Red Blood Count 3.89 M/mm3 (4.6-6.2); White Blood Count 4.7 K/mm3 (4.4-11.0)
[2018-03-19 09:34] LABS: POSITIVE COUNT NO; POSITIVE DIFFERENTIAL NO; POSITIVE MORPHOLOGY NO
[2018-03-19 09:39] LABS: Prothrombin Time (Protime)PT. 13.3 SECONDS (11.7-14.9)
--- NOTE | 2018-03-19 09:39 | NURSING ---
DR TAYO BLACK
[2018-03-19 09:48] LABS: Anion Gap 12 (5-15); BUN 12 mg/dL (7-18); BUN/Creat Ratio 10.4 RATIO (10-20); Calcium,Total 8.5 mg/dL (8.5-10.1); Chloride 105 mmol/L (98-107); Creatinine, Serum 1.15 mg/dL (0.70-1.30); EST Glomerular Filtration Rate 67 mL/min (>60); Est Glom Filt Rate - Afr Amer 82 mL/min (>60); Estimated Creatinine Clearance 62.33 ml/min; Glucose 146 mg/dL (74-106); Potassium 3.6 mmol/L (3.5-5.1); Sodium Level 145 mmol/L (136-145)
[2018-03-19] MEDS: Morphine 4 MG/ML Syringe IV (09:48)
--- NOTE | 2018-03-19 09:49 | NURSING ---
MED SURG LT HIP FX TAYO
[2018-03-19 09:57] VITALS: BP 127/71; PULSE 66; RESP 16; O2SAT 98
[2018-03-19 10:54] VITALS: BMI 32.7; BMI 32.8
[2018-03-19 11:20] VITALS: BP 117/68; PULSE 67; RESP 16; TEMP 36.4; O2SAT 95
[2018-03-19] MEDS: Allopurinol 100 MG Tablet 200 MG PO (12:27)
[2018-03-19] MEDS: hydroCHLOROthiazide 12.5mg 12.5 MG PO ×2 (12:28→21:35)
[2018-03-19] MEDS: Famotidine 20 MG Tablet PO ×2 (12:28→21:36)
[2018-03-19] MEDS: Lisinopril 20 MG Tablet PO ×2 (12:28→21:35)
--- NOTE | 2018-03-19 12:43 | PCM.HP.STD ---
Problem List (1) Closed left hip fracture Status: Acute Qualifiers: Encounter type: initial encounter Qualified Code(s): S72.002A - Fracture of unspecified part of neck of left femur, initial encounter for closed fracture (2) Fracture of radial head, left, closed Status: Acute Qualifiers: Encounter type: initial encounter Fracture alignment: nondisplaced Qualified Code(s): S52.125A - Nondisplaced fracture of head of left radius, initial encounter for closed fracture History of Present Illness Date of Admission: 03/19/18 Chief Complaint: fall The patient is a 67 year old M who was walking his dog, slipped on a patch of ice and landed on his left elbow and hip. Patient had pain. Brought to the emergency room and was found to have a depressed fracture of the left radial head with joint effusion and comminuted nondisplaced left intertrochanteric fracture. Patient denies hitting his head. Patient was seen in the emergency room and had his left arm splinted. Dr. Salvador, of orthopedics, was contacted and would be seeing the patient in consultation. [] Past Medical History Past Medical History (Chronic Problems): Chronic Problems HTN (hypertension) (Chronic) GERD (gastroesophageal reflux disease) (Chronic) Allergies Penicillins Allergy (Verified 12/13/17 14:05) Anaphylaxis STEROIDS Adverse Reaction (Uncoded 12/13/17 14:06) Shortness of breath Home Medications: Ambulatory Orders Medication Instructions Recorded Hydrochlorothiazide 12.5 mg PO BID 08/15/13 Lisinopril [Zestril] 20 mg PO BID 04/28/14 Allopurinol [Zyloprim] 200 mg PO DAILY 12/13/17 Omeprazole 40 mg PO DAILY 03/19/18 Surgical History: herniorrhaphy Psychiatric History: No pertinent psych hx Smoking Status: Never smoker - *Family History Maternal History Items: Stroke Paternal History Items: Heart Disease - 3x [place] by the age of 60 Review of Systems Constitutional: Denies: Chills, Fever, Weight Change Eyes: Denies: Blurred vision, Double vision HEENT: Denies: Head Aches, Sinus Congestion, Sinus Drainage Cardiovascular: Denies: Chest Pain, Palpitations Respiratory: Denies: Cough, Shortness of breath at rest, Sputum production Gastrointestinal: Reports: Nausea. Denies: Abdominal Pain, Vomiting Genitourinary: Denies: Dysuria Musculoskeletal: Reports: Arm Pain, Leg Pain Skin: Denies: Dryness, Jaundice Neurological: Denies: Numbness, Tingling, Focal weakness Psychiatric: Denies: Anxiety, Depression Hematologic/ Lymphatic: Denies: Easy Bruising, Easy Bleeding, Hx of blood clot Comment: A 10 point review of systems were negative except as mentioned in the history of present illness and the other review of systems. VTE Information - Inpt Only VTE Present on Admission: No VTE Mechan Device Prophylaxis: SCD's VTE Pharm Prophylaxis ordered?: No Reason prophylaxis not ordered:: Procedure Not Indicated Patient Problems: Active and Suspected Problems Fracture of radial head, left, closed (Acute) Closed left hip fracture (Acute) - Physical Exam General: Alert, Cooperative, No apparent distress HEENT: Atraumatic, Normocephalic Oral: Moist Mucosa, No Gingival or Mucosal Lesions/ Ulcerations Neck: No Nodes, Thyroid Normal Size and Texture Lungs: Clear to auscultation, Normal air movement, No rhonchi, No wheeze Cardiovascular: Regular rate, Regular Rhythm, Normal S1, Normal S2, No murmurs Abdomen: Bowel Sounds Present, Soft, Non Tender, Non-Distended, No Hepato-splenomegaly Extremities: No edema, No Calf Tenderness Skin: No rashes, No breakdown Musculoskeletal: - - Left arm in a splint and wrapped in an Johnny wrap, did not remove. Left lower extremity is shortened as compared to the right. Psych/Mental Status: Normal Affect, Appropriate Vital Signs Temp Pulse Resp BP Pulse Ox 36.4 C L 67 16 117/68 95 03/19/18 11:20 03/19/18 11:20 03/19/18 11:20 03/19/18 11:20 03/19/18 11:20 Oxygen Delivery Method Room Air Weight: 100.3 kg Body Mass Index (BMI) 32.7 Laboratory Tests Past 24 Hrs 03/19/18 03/19/18 03/19/18 09:23 09:23 09:23 WBC 4.7 RBC 3.89 L Hgb 12.5 L Hct 37.4 L MCV 96.1 H MCH 32.1 H MCHC 33.4 RDW 14.0 RDW Differential 49.0 H Plt Count 147 L MPV 9.2 Immature Gran % (Auto) 0.200 Neut % (Auto) 71.5 H Lymph % (Auto) 19.6 [place] % (Auto) 5.1 Eos % (Auto) 3.0 Baso % (Auto) 0.6 Absolute Neuts (auto) 3.4 Absolute Lymphs (auto) 0.92 Total Counted Not Reportable PT 13.3 INR 1.0 Sodium 145 Potassium 3.6 Chloride 105 Carbon Dioxide 28.0 Anion Gap 12 BUN 12 Creatinine 1.15 Estim Creat Clear Calc 62.33 Est GFR (MDRD) Af Amer 82 Est GFR (MDRD) Non-Af 67 BUN/Creatinine Ratio 10.4 Glucose 146 H Calcium 8.5 Clinical Impression(s) from Imaging Studies Elbow X-Ray 03/19/18 08:38 IMPRESSION: Depressed fracture of the radial head with a joint effusion. Electronically Signed: Shimon Alcazar MD at 9:27 EST , Service support , Hip/Pelvis X-Ray 03/19/18 08:38 IMPRESSION: Comminuted nondisplaced left intertrochanteric fracture. Electronically Signed: Shimon Alcazar MD at 9:27 EST , Service support , Assessment/Plan All Active Problems Fracture of radial head, left, closed (Acute) Closed left hip fracture (Acute) Chest pain (Acute) Contusion of left hip (Acute) 1. Left nondisplaced intertrochanteric fracture At baseline, patient is very active working out several times per week. Patient does chores around his house and to be. He is able to engage greater than 4 METs activity. Patient is medically cleared to proceed with surgery. Dr. Salvador is on and will take patient to surgery at a point to be determined. Bedrest until surgery After surgery, patient will have therapy services. Disposition will depend on patient's progress with therapy services but either home versus rehab. 2. Left radial head fracture Currently in a splint Defer to orthopedics for any potential surgical intervention 3. Hypertension Stable Continue with home medications 4. DVT prophylaxis with SCDs for now. Patient be on chemical prophylaxis after his surgery. Code Visit Inpatient E&M: 32213 Init Hosp L2
--- NOTE | 2018-03-19 12:49 | HP.PCM_ITS ---
Problem List (1) Closed left hip fracture Status: Acute Qualifiers: Encounter type: initial encounter Qualified Code(s): S72.002A - Fracture of unspecified part of neck of left femur, initial encounter for closed fracture (2) Fracture of radial head, left, closed Status: Acute Qualifiers: Encounter type: initial encounter Fracture alignment: nondisplaced Qu alified Code(s): S52.125A - Nondisplaced fracture of head of left radius, initial encounter for closed fracture History of Present Illness Date of Admission: 03/19/18 Chief Complaint: fall The patient is a 67 year old M who was walking his dog, slipped on a patch of ice and landed on his left elbow and hip. Patient had pain. Brought to the emergency room and was found to have a depressed fracture of the left radial head with joint effusion and comminuted nondisplaced left intertrochanteric fracture. Patient denies hitting his head. Patient was seen in the emergency room and had his left arm splinted. Dr. Salvador, of orthopedics, was contacted and would be seeing the patient in consultation. [] Past Medical History Past Medical History (Chronic Problems): Chronic Problems HTN (hypertension) (Chronic) GERD (gastroesophageal reflux disease) (Chronic) Allergies Penicillins Allergy (Verified 12/13/17 14:05) Anaphylaxis STEROIDS Adverse Reaction (Uncoded 12/13/17 14:06) Shortness of breath Home Medications: Ambulatory Orders Medication Instructions Recorded Hydrochlorothiazide 12.5 mg PO BID 08/15/13 Lisinopril [Zestril] 20 mg PO BID 04/28/14 Allopurinol [Zyloprim] 200 mg PO DAILY 12/13/17 Omeprazole 40 mg PO DAILY 03/19/18 Surgical History: herniorrhaphy Psychiatric History: No pertinent psych hx Smoking Status: Never smoker - *Family History Maternal History Items: Stroke Paternal History Items: Heart Disease - 3x [place] by the age of 60 Review of Systems Constitutional: Denies: Chills, Fever, Weight Change Eyes: Denies: Blurred vision, Double vision HEENT: Denies: Head Aches, Sinus Congestion, Sinus Drainage Cardiovascular: Denies: Chest Pain, Palpitations Respiratory: Denies: Cough, Shortness of breath at rest, Sputum production Gastrointestinal: Reports: Nausea. Denies: Abdominal Pain, Vomiting Genitourinary: Denies: Dysuria Musculoskeletal: Reports: Arm Pain, Leg Pain Skin: Denies: Dryness, Jaundice Neurological: Denies: Numbness, Tingling, Focal weakness Psychiatric: Denies: Anxiety, Depression Hematologic/ Lymphatic: Denies: Easy Bruising, Easy Bleeding, Hx of blood clot Comment: A 10 point review of systems were negative except as mentioned in the history of present illness and the other review of systems. VTE Information - Inpt Only VTE Present on Admission: No VTE Mechan Device Prophylaxis: SCD's VTE Pharm Prophylaxis ordered?: No Reason prophylaxis not ordered:: Procedure Not Indicated Patient Problems: Active and Suspected Problems Fracture of radial head, left, closed (Acute) Closed left hip fracture (Acute) - Physical Exam General: Alert, Cooperative, No apparent distress HEENT: Atraumatic, Normocephalic Oral: Moist Mucosa, No Gingival or Mucosal Lesions/ Ulcerations Neck: No Nodes, Thyroid Normal Size and Texture Lungs: Clear to auscultation, Normal air movement, No rhonchi, No wheeze Cardiovascular: Regular rate, Regular Rhythm, Normal S1, Normal S2, No murmurs Abdomen: Bowel Sounds Present, Soft, Non Tender, Non-Distended, No Hepato- splenomegaly Extremities: No edema, No Calf Tenderness Skin: No rashes, No breakdown Musculoskeletal: - - Left arm in a splint and wrapped in an Johnny wrap, did not remove. Left lower extremity is shortened as compared to the right. Psych/Mental Status: Normal Affect, Appropriate Vital Signs Temp Pulse Resp BP Pulse Ox 36.4 C L 67 16 117/68 95 03/19/18 11:20 03/19/18 11:20 03/19/18 11:20 03/19/18 11:20 03/19/18 11:20 Oxygen Delivery Method Room Air Weight: 100.3 kg Body Mass Index (BMI) 32.7 Laboratory Tests Past 24 Hrs 03/19/18 03/19/18 03/19/18 09:23 09:23 09:23 WBC 4.7 RBC 3.89 L Hgb 12.5 L Hct 37.4 L MCV 96.1 H MCH 32.1 H MCHC 33.4 RDW 14.0 RDW Differential 49.0 H Plt Count 147 L MPV 9.2 Immature Gran % (Auto) 0.200 Neut % (Auto) 71.5 H Lymph % (Auto) 19.6 [place] % (Auto) 5.1 Eos % (Auto) 3.0 Baso % (Auto) 0.6 Absolute Neuts (auto) 3.4 Absolute Lymphs (auto) 0.92 Total Counted Not Reportable PT 13.3 INR 1.0 Sodium 145 Potassium 3.6 Chloride 105 Carbon Dioxide 28.0 Anion Gap 12 BUN 12 Creatinine 1.15 Estim Creat Clear Calc 62.33 Est GFR (MDRD) Af Amer 82 Est GFR (MDRD) Non-Af 67 BUN/Creatinine Ratio 10.4 Glucose 146 H Calcium 8.5 Clinical Impression(s) from Imaging Studies Elbow X-Ray 03/19/18 08:38 IMPRESSION: Depressed fracture of the radial head with a joint effusion. Electronically Signed: Shimon Alcazar MD at 9:27 EST , Service support , Hip/Pelvis X-Ray 03/19/18 08:38 IMPRESSION: Comminuted nondisplaced left intertrochanteric fracture. Electronically Signed: Shimon Alcazar MD at 9:27 EST , Service support , Assessment/Plan All Active Problems Fracture of radial head, left, closed (Acute) Closed left hip fracture (Acute) Chest pain (Acute) Contusion of left hip (Acute) 1. Left nondisplaced intertrochanteric fracture At baseline, patient is very active working out several times per week. Patient does chores around his house and to be. He is able to engage greater than 4 METs activity. Patient is medically cleared to proceed with surgery. Dr. Salvador is on and will take patient to surgery at a point to be determined. Bedrest until surgery After surgery, patient will have therapy services. Disposition will depend on patient's progress with therapy services but either home versus rehab. 2. Left radial head fracture Currently in a splint Defer to orthopedics for any potential surgical intervention 3. Hypertension Stable Continue with home medications 4. DVT prophylaxis with SCDs for now. Patient be on chemical prophylaxis after his surgery. Code Visit Inpatient E&M: 07730 Init Hosp L2
--- NOTE | 2018-03-19 13:10 | CASEMGMT ---
Addendum entered by Maninder Forte 03/19/18 14:26: Correction: Sees Dr Kohler (Bridge Rigger) Original Note: RN CM FACTORY PROCESS WORKERS CM to room to meet with patient for initial transition planning/care coordination assessment. RN CM introduced self and role at [facility]. Pt voices understanding and consents to assessment at this time. Pt resting in bed in no distress at this time. Pt is A/O at this time and answers all questions appropriately. Care providers, pharmacy, and demographics verified at this time. PCP: Oh Specialists: Dr Eaton for GERD Preferred Pharmacy: [facility] Insurance: MCR, Other Commercial insurance as secondary. Does not remember the name Prescription Benefit: Envision Living Will/HPOA: States does not have LW or HCPOA . Interested in more information but states does not want to talk with SW at this time to complete paperwork. Instructed to ask for SW if he decides he would like to talk to SW while here. Provided information on advanced directives and given Social Service rac card with number to call if chooses in the future to utilize [facility] social work for advanced directive completion. Educated patient that, if patient so chooses, can come back to [facility] and meet with a SW as an outpatient to complete health care advanced directives. Patient voices understanding. Living Arrangements: Lives @ home with his in a one-story home. No steps to enter. Was independent prior to fall/hospitalization. Transportation: Pt drove self prior to fall/hospitalization. States his is able to drive. DME: States uses a BIPAP. No home O2. Has a cane and crutches but does not use. Pt states is unsure of DME need after surgery. HHC/SNF: Has never been to a SNF or used HHC. Pt states is not sure where he wishes to go on discharge. States he wants to wait until after surgery to decide on discharge plans. CM to follow for further for further discharge planning/needs. Pt voices no further concerns/needs at this time. Advised pt to ask for CM if any further questions/concerns/needs arise. Voices understanding. PLAN: CRISTÓBAL COPELAND RN, CM
[2018-03-19] MEDS: Morphine 2 MG/ML Syringe IV ×2 (14:24→19:28)
--- NOTE | 2018-03-19 16:01 | CON.PCM_ITS ---
Reason for Consult Date of Consultation: 03/19/18 Reason for Consultation: Left hip fracture, left radial head fracture. Requested by Dr Fermin History of Present Illness: The patient is a 67 year old M who lives at home with his and ambulates without a walker or a cane. Normally works out a couple times a week. Patient was walking his dog this morning when he slipped on the ice. Patient fell on his left side and was unable to bear weight on the left hip. He had 10 out of 10 pain could not get up. He also had pain on the lateral side of his elbow and difficulty with elbow range of motion. He was brought to the emergency department where he was evaluated. Patient denies any current numbness or tingling. With morphine his pain is a 4 out of 10. He is also improved with rest. His pain in the left hip is in the groin area on the elbow its over the lateral part of the elbow at the radial head. Pain is constant. Elbow pain is improved with immobilization. He is currently placed in left elbow splint and put on bedrest. Past Medical History Past Medical History (Chronic Problems): Chronic Problems HTN (hypertension) (Chronic) GERD (gastroesophageal reflux disease) (Chronic) Allergies Penicillins Allergy (Verified 12/13/17 14:05) Anaphylaxis STEROIDS Adverse Reaction (Uncoded 12/13/17 14:06) Shortness of breath Home Medications: Ambulatory Orders Medication Instructions Recorded Hydrochlorothiazide 12.5 mg PO BID 08/15/13 Lisinopril [Zestril] 20 mg PO BID 04/28/14 Allopurinol [Zyloprim] 200 mg PO DAILY 12/13/17 Omeprazole 40 mg PO DAILY 03/19/18 Surgical History: herniorrhaphy Psychiatric History: No pertinent psych hx Smoking Status: Never smoker Tobacco Use: Non-smoker Alcohol: Rare Drugs: None - *Family History Maternal History Items: Stroke Paternal History Items: Heart Disease - 3x NE by the age of 60 Review of Systems Constitutional: Denies: Chills, Fever, Weight Change HEENT: Denies: Head Aches, Sinus Congestion, Sinus Drainage Cardiovascular: Denies: Chest Pain, Palpitations Respiratory: Denies: Cough, Shortness of breath at rest, Sputum production Gastrointestinal: Denies: Abdominal Pain, Nausea, Vomiting Genitourinary: Denies: Dysuria Musculoskeletal: Reports: Joint Pain, Joint Tenderness Skin: Denies: Rash, Wounds Neurological: Denies: Numbness, Tingling, Focal weakness Psychiatric: Denies: Anxiety, Depression, Homicidal Ideations, Suicidal Ideations Hematologic/ Lymphatic: Denies: Easy Bruising, Easy Bleeding Patient Problems: Active and Suspected Problems Fracture of radial head, left, closed (Acute) Closed left hip fracture (Acute) Objective: Left hip x-rays were reviewed. Despite the radiologist reading of nondisplaced fracture patient has a displaced intertrochanteric hip fracture with complete separation of the lesser trochanter. This is a low basicervical pattern. Left elbow radiographs show lateral rim impaction of the radial head. Elbow is well aligned. - Physical Exam General: Alert, Oriented x3, Cooperative HEENT: Atraumatic Neck: No JVD Lungs: - - Nonlabored breathing Cardiovascular: Regular rate Abdomen: Non-Distended Extremities: - Skin: No rashes, No breakdown - Left lower extremity: Skin clean, dry, and intact. Limb is shortened and externally rotated Motor is intact dorsiflexion, EHL and plantar flexion. Sensation is intact to light touch saphenous, meme,l superficial peroneal, deep peroneal and tibial distributions. Calves are soft and supple. Left upper extremity: Tenderness palpation over the radial head. Splint is intact, posterior splint at 90 degrees. Positive thumbs up, okay sign and cross his fingers. Sensations intact light touch R/M/U. Digits are all warm and pink. She did have his wedding ring on which was removed from the ring finger without complications. Neurological: Cranial nerves II-XII grossly intact Psych/Mental Status: Normal Affect Vital Signs Temp Pulse Resp BP Pulse Ox 97.6 F L 67 16 117/68 95 03/19/18 11:20 03/19/18 11:20 03/19/18 11:20 03/19/18 11:20 03/19/18 11:20 Oxygen Delivery Method Room Air Weight: 221 lb 1.978 oz Body Mass Index (BMI) 32.7 Laboratory Tests Past 24 Hrs 03/19/18 03/19/18 03/19/18 09:23 09:23 09:23 WBC 4.7 RBC 3.89 L Hgb 12.5 L Hct 37.4 L MCV 96.1 H MCH 32.1 H MCHC 33.4 RDW 14.0 RDW Differential 49.0 H Plt Count 147 L MPV 9.2 Immature Gran % (Auto) 0.200 Neut % (Auto) 71.5 H Lymph % (Auto) 19.6 [place] % (Auto) 5.1 Eos % (Auto) 3.0 Baso % (Auto) 0.6 Absolute Neuts (auto) 3.4 Absolute Lymphs (auto) 0.92 Total Counted Not Reportable PT 13.3 INR 1.0 Sodium 145 Potassium 3.6 Chloride 105 Carbon Dioxide 28.0 Anion Gap 12 BUN 12 Creatinine 1.15 Estim Creat Clear Calc 62.33 Est GFR (MDRD) Af Amer 82 Est GFR (MDRD) Non-Af 67 BUN/Creatinine Ratio 10.4 Glucose 146 H Calcium 8.5 Assessment/Plan All Active Problems Fracture of radial head, left, closed (Acute) Closed left hip fracture (Acute) Chest pain (Acute) Contusion of left hip (Acute) Left intertrochanteric hip fracture Natural history of disease process and treatment options were discussed the patient. At this time based on the fracture pattern I recommended cephalo- medullary nail. Risks and benefits of the procedure were discussed with the patient including but not limited to blood loss, DVTs, PEs, neurovascular d amage, infection, general risk of anesthesia including loss of life. Patient demonstrates an understanding wishes to proceed. Medical clearance will be obtained. Plan is for surgery tomorrow morning. Patient will be n.p.o. after midnight. Clindamycin on-call to the operating room. She is consented and needs to sign consent for surgery. Left depressed lateral rim fracture of the radial head Patient has been placed in a posterior splint. We will keep him nonweightbearing with the hand and elbow. However he will be able to bear weight through the elbow in order to use a platform walker if he can tolerate it. Plan is for splint for 2 weeks and then begin range of motion. Ring was removed today to prevent excessive swelling. [facility] Office:
[2018-03-19 16:04] VITALS: BP 104/61; PULSE 70; RESP 18; TEMP 37.2; O2SAT 94
--- NOTE | 2018-03-19 17:17 | CHAPLAIN ---
Type of Pastoral Visit _x__ Initial Visit ___ Follow-up Visit ___ On-call Visit ___ General Patient Visit ___ Spiritual Assessment ___ Family Conference ___ Bereavement ___ Rapid Response ___ Code Blue ___ Other (describe below) Pastoral Care Referral From _x__ Patient ___ Family ___ Nurse ___ Physician ___ Mask Layout Designer ___ Orderly ___ Other (describe below) Sacrament/Intervention _x__ Active listening ___ Anointing ___ Alevism ___ Bereavement ___ Communion ___ Kim exploration ___ _x__ Life review _x__ Prayer ___ Reconciliation ___ Sacrament of Sick _x__ Supportive presence ___ Wedding ___ Other (describe below) Pastoral Comments
[2018-03-19] MEDS: 0.9% NaCl Peripheral Flush Adult/Peds IV (19:29)
[2018-03-19] MEDS: oxyCODONE 5 MG Tablet PO (21:35)
[2018-03-19 22:00] VITALS: BP 109/64; PULSE 84; RESP 16; TEMP 36.9; O2SAT 96
[2018-03-20] VITALS (10 sets, daily range): BP systolic 96–121; BP diastolic 55–69; PULSE 74–95; RESP 16–18; TEMP 36.5–37; O2SAT 92–97; BMI 32.8
[2018-03-20] MEDS: oxyCODONE 5 MG Tablet PO ×2 (02:36→14:19)
[2018-03-20 07:28] LABS: Absolute Lymphocyte Count 1.06 X10^3/ul (0.83-4.51); Absolute Neutrophil Count 6.5 X10^3/uL (2.0-7.7); Basophil# 0.01 X10^3/uL; Basophil% 0.1 % (0-1); Eosinophil# 0.05 X10^3/uL; Eosinophils% 0.6 % (0-5); Hematocrit 35.2 % (40-54); Hemoglobin 11.7 g/dl (13.0-16.5); Lymphocyte # 1.06 X10^3/ul (4.0); Lymphocyte % 12.7 % (19-41); Mean Corp Hgb Conc 33.2 g/gl (32-36); Mean Corpuscular Hgb 31.8 pg (27.0-32.0); Mean Corpuscular Volume 95.7 fL (80-94); Mean Platelet Vol. 9.3 fl (6.2-12.0); Monocyte# 0.72 X10^3/uL; Monocyte% 8.6 % (0-10); Neutrophil # 6.49 X10^3/uL (2.7-7.7); Neutrophil % 77.6 % (47-70); Platelet Count 169 K/mm3 (150-450); RBC Distribution Width CV 14.2 % (11.6-14.6); RBC Distribution Width SD 49.2 fl (35.1-43.9); Red Blood Count 3.68 M/mm3 (4.6-6.2); White Blood Count 8.4 K/mm3 (4.4-11.0)
[2018-03-20 07:30] LABS: POSITIVE COUNT NO; POSITIVE DIFFERENTIAL NO; POSITIVE MORPHOLOGY NO
[2018-03-20 07:49] LABS: Anion Gap 11 (5-15); BUN 17 mg/dL (7-18); BUN/Creat Ratio 15.2 RATIO (10-20); Calcium,Total 8.1 mg/dL (8.5-10.1); Chloride 105 mmol/L (98-107); Creatinine, Serum 1.12 mg/dL (0.70-1.30); EST Glomerular Filtration Rate 69 mL/min (>60); Est Glom Filt Rate - Afr Amer 84 mL/min (>60); Estimated Creatinine Clearance 61.92 ml/min; Glucose 127 mg/dL (74-106); Potassium 3.4 mmol/L (3.5-5.1); Sodium Level 143 mmol/L (136-145)
--- NOTE | 2018-03-20 07:51 | RAD_ITS ---
STUDY: X-RAY - LEFT HIP REASON FOR EXAM: Male, 67 years old. Left IT fracture, status post fixation TECHNIQUE: AP and lateral views of the hip. AP pelvis. COMPARISON: 03/19/2018 FINDINGS: Left intratrochanteric fracture is again identified with similar mild displacement of the lesser trochanter medially. Interval placement of left femoral medullary radha with femoral neck screws. Soft tissue swelling and air compatible with recent surgery. Normal acetabulum. Mild degenerative changes of the bilateral hip joints. No pelvic ring fracture or pubic symphysis/sacroiliac joint diastases. RAD/Hip Min 2 Views (Portable) IMPRESSION: Left IT fracture fixation with medullary radha and left femoral neck screws. Gross radiographic alignment. Electronically Signed: Abel Crawley MD at 12:46 EST , Service support ,
--- NOTE | 2018-03-20 07:59 | PCM.OPRPT ---
Report of Operation Date of Procedure: 03/20/18 Pre-Operative Diagnosis: Left displaced intertrochanteric hip fracture Post-Operative Diagnosis: Left displaced intertrochanteric hip fracture Surgery/Procedure Performed:: Left hip cephalo-medullary nail Description of Surgical Findings:: Stable reduction painter and body mechanic apprentice: Darlene Ramos Type of Anesthesia:: General Anesthesiologist: Griselda Garcia Special Medications: 600 mg clindamycin Estimated Blood Loss (mL): 150 Fluids Replaced: 1 L crystalloid Description of Procedure: Components used: 1. [employer] InterTAN nail 11.5 mm, 42 cm, 125 degree neck angle 2. [employer] InterTAN lag screw 100mm Brief history operative indications: 67-year-old male fell on the ice yesterday and sustained a left intertrochanteric hip fracture. After extensive discussion including risk and benefits which include but are not limited to blood loss, PEs, DVTs, neurovascular damage, nonunions, malunions and screw cut out patient has elected to proceed with a L cephalo-medullary nail. Procedure: On the date of the procedure the patient's L hip was marked in the preoperative area and patient was taken back to the operating room. Anesthetic was administered and patient was transferred to the table were all bony prominence identified well-padded and the ipsilateral arm was placed across the chest. Patient was then translated down to the perineal post and the operative leg was placed in the boot while the nonoperative leg was lowered and secured. The operative leg was placed in traction and internal rotation and live fluoroscopy was used to verify adequate reduction. The operative leg was then prepped in a sterile fashion with chlorhexidine while the surgeon scrubbed. Upon reentering the room the operative extremity was draped in the standard orthopedic fashion. Skin incision was marked and a timeout was called. Everyone agreed upon the side, the site, the procedure be performed, patient's identity, and antibiotics given. Skin incision was made and the position of the entry guidepin was verified using live fluoroscopy. Once we were satisfied with our position the pin was advanced in the soft tissue protector was placed over the pin. The entry reamer was then advanced into the proximal portion of the femur. A guidewire was placed down the intramedullary canal and fluoroscopy was used to verify that the anterior cortex had not been breached distally as well as satisfactory distal positioning. We then used live fluoroscopy to verify the length of the nail and a [employer] InterTAN 42 CM by 11.5 m hip nail was selected. The 12.5 mm reamer was then passed. The nail was then attached to the concrete finishing machine operator and inserted into the intramedullary canal. The appropriate depth was verified and the skin incision for the lag screw was made. The lag screw guidepin was then placed under live fluoroscopy and when a satisfactory position was obtained the length of the screw was measured and the standard technique to drill for the lag screws was performed. The anti-rotation bar was used. At this time a 100 mm lag screw was selected with its corresponding compression screw. The lag screw was then passed and traction was left off the leg. The compression screw was then passed and the fracture was compressed. The final position of the lag screw was verified under fluoroscopy. Live fluoroscopy was used to verify the position of the final position of the hip components. Once we were satisfied with our positioning the wounds were copiously irrigated out with normal saline skin was closed with 2-0 Vicryl and mohit for final skin closure. A sterile dressing was placed with Xeroform. Patient was then awakened by anesthesia transferred from the fracture table back to their hospital bed and transferred to the PACU for recovery. Postoperative plan: Patient will be weight-bear as tolerated. XARELTO for DVT prophylaxis with knee-high stockings. Follow up in the office in 2 weeks. Grafts/Implants Used: [employer] InterTAN - Complications No intraoperative complications - Admit VTE Documentation VTE Present on Admission: No VTE Mechan Device Prophylaxis: SCD's, Thigh High LOUISE Hose VTE Pharm Prophylaxis ordered?: Yes
--- NOTE | 2018-03-20 08:00 | RAD_ITS ---
STUDY: X-RAY - LEFT HIP REASON FOR EXAM: Male, 67 years old. Fluoroscopic guidance for left IT fracture fixation TECHNIQUE: 4 fluoroscopic views. Cumulative dose: 21.17 mGy COMPARISON: 03/19/2018 FINDINGS: 4 fluoroscopic views show placement of a femoral intramedullary rdaha with femoral neck fixation screws. Intratrochanteric fracture is improved in alignment since the prior study with mild displacement of the lesser trochanter persisting. RAD/Hip Min 2 Views (Portable) IMPRESSION: 1. Fluoroscopic guidance for left IT fracture fixation. See procedural report. Electronically Signed: Abel Crawley MD at 12:44 EST , Service support ,
--- NOTE | 2018-03-20 09:17 | PN_ITS ---
Patient Problems: Active and Suspected Problems Fracture of radial head, left, closed (Acute) Closed left hip fracture (Acute) Subjective: Patient was seen and examined. His is controlled except when he moves. Denies any fever or chills Had surgery today for left hip cephalo-medullary nailing. Vitals/I&O's: Vital Signs Temp Pulse Resp BP Pulse Ox 98.6 F 75 16 115/65 97 03/20/18 04:00 03/20/18 04:00 03/20/18 04:00 03/20/18 04:00 03/20/18 04:00 Oxygen Delivery Method Room Air Weight: 100.3 kg Body Mass Index (BMI) 32.7 Intake and Output for Last 24 Hours 03/18/18 03/19/18 03/20/18 23:59 23:59 23:59 Intake Total 300 / 300 Output Total 425 / 425 300 / 300 Balance -125 / -125 -300 / -300 General: Alert, Oriented x3, Cooperative, No apparent distress, - - 2 L of oxygen HEENT: Atraumatic, PERRLA, EOMI, Normocephalic Oral: Moist Mucosa Neck: Supple, No JVD, Negative Carotid Bruits Lungs: Clear to auscultation, Normal air movement Cardiovascular: Regular rate, Regular Rhythm, Normal S1, Normal S2, No murmurs Abdomen: Bowel Sounds Present, Soft, Non Tender, Non-Distended, No Hepato- splenomegaly Extremities: No edema Skin: No rashes, No breakdown Musculoskeletal: No Tenderness to Palpation of Joints or Extremities Lymphatic: No Cervical, Supraclavicular, or Inguinal Adenopathy Neurological: Cranial nerves II-XII grossly intact, Neuro grossly intact Psych/Mental Status: Normal Affect, Appropriate Laboratory Results 03/19/18 09:23: WBC 4.7, RBC 3.89 L, Hgb 12.5 L, Hct 37.4 L, MCV 96.1 H, MCH 32.1 H, MCHC 33.4, RDW 14.0, RDW Differential 49.0 H, Plt Count 147 L, MPV 9.2, Immature Gran % (Auto) 0.200, Neut % (Auto) 71.5 H, Lymph % (Auto) 19.6, [place] % (Auto) 5.1, Eos % (Auto) 3.0, Baso % (Auto) 0.6, Absolute Neuts (auto) 3.4, Absolute Lymphs (auto) 0.92, Total Counted Not Reportable 03/19/18 09:23: Sodium 145, Potassium 3.6, Chloride 105, Carbon Dioxide 28.0, Anion Gap 12, BUN 12, Creatinine 1.15, Estim Creat Clear Calc 62.33, Est GFR (MDRD) Af Amer 82, Est GFR (MDRD) Non-Af 67, BUN/Creatinine Ratio 10.4, Glucose 146 H, Calcium 8.5 03/19/18 09:23: PT 13.3, INR 1.0 03/19/18 20:21: Blood Type O POSITIVE, Antibody Screen NEGATIVE 03/20/18 06:45: WBC 8.4, RBC 3.68 L, Hgb 11.7 L, Hct 35.2 L, MCV 95.7 H, MCH 31.8, MCHC 33.2, RDW 14.2, RDW Differential 49.2 H, Plt Count 169, MPV 9.3, Immature Gran % (Auto) 0.400, Neut % (Auto) 77.6 H, Lymph % (Auto) 12.7 L, [place] % (Auto) 8.6, Eos % (Auto) 0.6, Baso % (Auto) 0.1, Absolute Neuts (auto) 6.5, Absolute Lymphs (auto) 1.06, Total Counted Not Reportable 03/20/18 06:45: Sodium 143, Potassium 3.4 L, Chloride 105, Carbon Dioxide 27.0, Anion Gap 11, BUN 17, Creatinine 1.12, Estim Creat Clear Calc 61.92, Est GFR (MDRD) Af Amer 84, Est GFR (MDRD) Non-Af 69, BUN/Creatinine Ratio 15.2, Glucose 127 H, Calcium 8.1 L Current Medications Acetaminophen (Tylenol) 1,000 mg PO Q8 [facility] Allopurinol (Zyloprim) 200 mg PO DAILY [facility] Last Admin: 03/19/18 12:27 Dose: 200 mg Calcium Carbonate (Os-Elroy 500) 1,000 mg PO DAILY@0800 [facility] Cholecalciferol (Vitamin D) 1,000 unit PO DAILY [facility] Famotidine (Pepcid) 20 mg PO BID [facility] Last Admin: 03/19/18 21:36 Dose: 20 mg Clindamycin Phosphate 600 mg/ (Dextrose) 54 mls @ 100 mls/hr IV Q6H [facility] Stop: 03/21/18 02:33 Lactated Ringer's () 1,000 mls @ 125 mls/hr IV .Q8H [facility] Lisinopril (Zestril) 20 mg PO BID [facility] Last Admin: 03/19/18 21:35 Dose: 20 mg Magnesium Hydroxide (Milk Of Magnesia) 30 ml PO DAILY PRN PRN PRN Reason: Constipation Morphine Sulfate () 2 - 4 mg IV Q2H PRN PRN PRN Reason: Severe pain (6-10) Nutritional Formula (Lactose Free) (Ensure Enlive) 120 ml PO TID [facility] Ondansetron HCl (Zofran) 4 mg IV Q6H PRN PRN PRN Reason: Nausea Oxycodone HCl (Oxyir) 5 - 10 mg PO Q4H PRN PRN PRN Reason: PAIN Promethazine HCl (Phenergan) 12.5 mg IV Q6H PRN PRN PRN Reason: NAUSEA/VOMITING Rivaroxaban (Xarelto) 10 mg PO DAILY@0600 [facility] Senna/Docusate Sodium (Senokot-S, Evette-Colace) 2 tablet PO BID PRN PRN PRN Reason: Constipation Sodium Chloride () 5 - 15 ml IV UD PRN PRN Reason: SALINE FLUSH Last Admin: 03/19/18 19:29 Dose: 10 ml Medical Necessity - Tobacco Use Smoking Status: Never smoker Tobacco Use: Non-smoker Assessment/Plan All Active Problems Fracture of radial head, left, closed (Acute) Closed left hip fracture (Acute) Chest pain (Acute) Contusion of left hip (Acute) 67-year-old male with past medical history hypertension, GERD comes in with complaints of hip pain and found to have depressed fracture of the left radial head with joint effusion and comminuted nondisplaced left intertrochanteric fracture. 1. Postop day #0 status post left cephalo-medullary nailing, pain is controlled, PT and OT, wound care and other therapy recommendations per orthopedics 2. Left radial head fracture, in splint, nonweightbearing with a hand and elbow Orthopedics plan is to put in splint for 2 weeks and then begin range of movement. 3. Hypertension, controlled, continue home lisinopril 4. DVT prophylaxis with Xarelto 5. Disposition: Per orthopedics recommendations Code Visit Inpatient E&M: 32036 Subs Hosp L2
[2018-03-20] MEDS: Famotidine 20 MG Tablet PO ×2 (12:13→21:20)
[2018-03-20] MEDS: Allopurinol 100 MG Tablet 200 MG PO (12:13)
[2018-03-20] MEDS: Calcium (Elemental) 500 MG Tablet 1000 MG PO (12:14)
[2018-03-20] MEDS: Lactated Ringers 1,000 ML 125 ML IV ×2 (12:18→23:28)
[2018-03-20] MEDS: Acetaminophen 500 MG Tablet 1000 MG PO ×2 (14:19→21:20)
--- NOTE | 2018-03-20 23:45 | NURSING ---
Spoke with Dr. Bermudez regarding pts urinary output of concentrated 375ml and low bp-and zestril held. Discussed that IVF is due to be dc'd when pt tolerates po intake, which he is. New order to continue IV fluids for 1 more liter.
[2018-03-21 02:38] VITALS: BP 106/59; PULSE 77; RESP 16; TEMP 36.7; O2SAT 96
[2018-03-21 06:14] LABS: Absolute Lymphocyte Count 0.67 X10^3/ul (0.83-4.51); Absolute Neutrophil Count 4.3 X10^3/uL (2.0-7.7); Basophil# 0.01 X10^3/uL; Basophil% 0.2 % (0-1); Eosinophil# 0.07 X10^3/uL; Eosinophils% 1.2 % (0-5); Hematocrit 28.4 % (40-54); Hemoglobin 9.4 g/dl (13.0-16.5); Lymphocyte # 0.67 X10^3/ul (4.0); Lymphocyte % 11.8 % (19-41); Mean Corp Hgb Conc 33.1 g/gl (32-36); Mean Corpuscular Hgb 31.9 pg (27.0-32.0); Mean Corpuscular Volume 96.3 fL (80-94); Mean Platelet Vol. 9.1 fl (6.2-12.0); Monocyte# 0.63 X10^3/uL; Monocyte% 11.1 % (0-10); Neutrophil # 4.27 X10^3/uL (2.7-7.7); Neutrophil % 75.3 % (47-70); Platelet Count 130 K/mm3 (150-450); RBC Distribution Width CV 14.6 % (11.6-14.6); RBC Distribution Width SD 50.8 fl (35.1-43.9); Red Blood Count 2.95 M/mm3 (4.6-6.2); White Blood Count 5.7 K/mm3 (4.4-11.0)
[2018-03-21 06:23] LABS: POSITIVE COUNT NO; POSITIVE DIFFERENTIAL NO; POSITIVE MORPHOLOGY NO
[2018-03-21 06:31] LABS: Anion Gap 11 (5-15); BUN 23 mg/dL (7-18); BUN/Creat Ratio 18.4 RATIO (10-20); Calcium,Total 7.8 mg/dL (8.5-10.1); Chloride 101 mmol/L (98-107); Creatinine, Serum 1.25 mg/dL (0.70-1.30); EST Glomerular Filtration Rate 61 mL/min (>60); Est Glom Filt Rate - Afr Amer 74 mL/min (>60); Estimated Creatinine Clearance 55.48 ml/min; Glucose 123 mg/dL (74-106); Potassium 3.6 mmol/L (3.5-5.1); Sodium Level 139 mmol/L (136-145)
[2018-03-21] MEDS: Acetaminophen 500 MG Tablet 1000 MG PO ×3 (07:13→20:53)
[2018-03-21] MEDS: oxyCODONE 5 MG Tablet PO (07:35)
--- NOTE | 2018-03-21 07:41 | PCM.PN.HOSP ---
Patient Problems: Active and Suspected Problems Fracture of radial head, left, closed (Acute) Closed left hip fracture (Acute) Vitals/I&O's: Vital Signs Temp Pulse Resp BP Pulse Ox 98.0 F 77 16 106/59 L 96 03/21/18 02:38 03/21/18 02:38 03/21/18 02:38 03/21/18 02:38 03/21/18 02:38 Oxygen Flow Rate (L/min) 2 Oxygen Delivery Method CPAP Weight: 100.3 kg Body Mass Index (BMI) 32.7 Intake and Output for Last 24 Hours 03/19/18 03/20/18 03/21/18 23:59 23:59 23:59 Intake Total 300 / 300 3855 / 3855 Output Total 425 / 425 675 / 675 Balance -125 / -125 3180 / 3180 Laboratory Results 03/20/18 06:45: Sodium 143, Potassium 3.4 L, Chloride 105, Carbon Dioxide 27.0, Anion Gap 11, BUN 17, Creatinine 1.12, Estim Creat Clear Calc 61.92, Est GFR (MDRD) Af Amer 84, Est GFR (MDRD) Non-Af 69, BUN/Creatinine Ratio 15.2, Glucose 127 H, Calcium 8.1 L 03/21/18 05:30: Sodium 139, Potassium 3.6, Chloride 101, Carbon Dioxide 27.0, Anion Gap 11, BUN 23 H, Creatinine 1.25, Estim Creat Clear Calc 55.48, Est GFR (MDRD) Af Amer 74, Est GFR (MDRD) Non-Af 61, BUN/Creatinine Ratio 18.4, Glucose 123 H, Calcium 7.8 L 03/21/18 05:30: WBC 5.7, RBC 2.95 L, Hgb 9.4 L, Hct 28.4 L, MCV 96.3 H, MCH 31.9, MCHC 33.1, RDW 14.6, RDW Differential 50.8 H, Plt Count 130 L, MPV 9.1, Immature Gran % (Auto) 0.400, Neut % (Auto) 75.3 H, Lymph % (Auto) 11.8 L, [place] % (Auto) 11.1 H, Eos % (Auto) 1.2, Baso % (Auto) 0.2, Absolute Neuts (auto) 4.3, Absolute Lymphs (auto) 0.67 L, Total Counted Not Reportable Current Medications Acetaminophen (Tylenol) 1,000 mg PO Q8 [facility] Last Admin: 03/21/18 07:13 Dose: 1,000 mg Allopurinol (Zyloprim) 200 mg PO DAILY [facility] Last Admin: 03/20/18 12:13 Dose: 200 mg Calcium Carbonate (Os-[place] 500) 1,000 mg PO DAILY@0800 [facility] Last Admin: 03/20/18 12:14 Dose: 1,000 mg Cholecalciferol (Vitamin D) 1,000 unit PO DAILY [facility] Last Admin: 03/20/18 12:14 Dose: 1,000 unit Famotidine (Pepcid) 20 mg PO BID [facility] Last Admin: 03/20/18 21:20 Dose: 20 mg Lactated Ringer's () 1,000 mls @ 125 mls/hr IV .Q8H [facility] Last Admin: 03/20/18 23:28 Dose: 125 mls/hr Lisinopril (Zestril) 20 mg PO BID [facility] Last Admin: 03/20/18 21:20 Dose: Not Given Magnesium Hydroxide (Milk Of Magnesia) 30 ml PO DAILY PRN PRN PRN Reason: Constipation Morphine Sulfate () 2 - 4 mg IV Q2H PRN PRN PRN Reason: Severe pain (6-10) Nutritional Formula (Lactose Free) (Ensure Enlive) 120 ml PO TID [facility] Last Admin: 03/21/18 02:30 Dose: Not Given Ondansetron HCl (Zofran) 4 mg IV Q6H PRN PRN PRN Reason: Nausea Oxycodone HCl (Oxyir) 5 - 10 mg PO Q4H PRN PRN PRN Reason: PAIN Last Admin: 03/21/18 07:35 Dose: 10 mg Promethazine HCl (Phenergan) 12.5 mg IV Q6H PRN PRN PRN Reason: NAUSEA/VOMITING Rivaroxaban (Xarelto) 10 mg PO DAILY@0600 [facility] Senna/Docusate Sodium (Senokot-S, Evette-Colace) 2 tablet PO BID PRN PRN PRN Reason: Constipation Sodium Chloride () 5 - 15 ml IV UD PRN PRN Reason: SALINE FLUSH Last Admin: 03/19/18 19:29 Dose: 10 ml Medical Necessity - Tobacco Use Smoking Status: Never smoker Tobacco Use: Non-smoker Assessment/Plan All Active Problems Fracture of radial head, left, closed (Acute) Closed left hip fracture (Acute) Chest pain (Acute) Contusion of left hip (Acute)
[2018-03-21] MEDS: Rivaroxaban 10 MG Tablet PO (07:42)
[2018-03-21 07:47] VITALS: BP 124/69; PULSE 89; RESP 16; TEMP 36.7; O2SAT 95
--- NOTE | 2018-03-21 07:56 | PCM.PN.ORT ---
Patient Problems: Active and Suspected Problems Fracture of radial head, left, closed (Acute) Closed left hip fracture (Acute) Subjective: Patient is doing well. He has not mobilized well he did get up once yesterday. No chest pain or shortness of breath. Does report some bowel gas. Overall pain is controlled. Was getting ready to get up with the [employer] today. Going to attempt to use a 4 pronged cane/side walker and platform walker today to determine which is best for him. Objective: Postop radiographs show well fixed adequately aligned intertrochanteric hip fracture status post cephalo-medullary nail. - Physical Exam General: Alert, Oriented x3, Cooperative Extremities: - - Left lower extremity: Dressing is clean dry and intact Sensations intact to light touch saphenous, sural, superficial peroneal, deep peroneal, and tibial distributions Motors intact EHL, DF, PF calves are soft and supple Vital Signs Temp Pulse Resp BP Pulse Ox 98.0 F 89 16 124/69 H 95 03/21/18 07:47 03/21/18 07:47 03/21/18 07:47 03/21/18 07:47 03/21/18 07:47 Oxygen Flow Rate (L/min) 2 Oxygen Delivery Method Room Air Weight: 221 lb 1.978 oz Body Mass Index (BMI) 32.7 Intake and Output for Last 24 Hours 03/19/18 03/20/18 03/21/18 23:59 23:59 23:59 Intake Total 300 / 300 3855 / 3855 1018 / 1018 Output Total 425 / 425 675 / 675 275 / 275 Balance -125 / -125 3180 / 3180 743 / 743 Laboratory Tests Past 24 Hrs 03/21/18 03/21/18 05:30 05:30 WBC 5.7 RBC 2.95 L Hgb 9.4 L Hct 28.4 L MCV 96.3 H MCH 31.9 MCHC 33.1 RDW 14.6 RDW Differential 50.8 H Plt Count 130 L MPV 9.1 Immature Gran % (Auto) 0.400 Neut % (Auto) 75.3 H Lymph % (Auto) 11.8 L [place] % (Auto) 11.1 H Eos % (Auto) 1.2 Baso % (Auto) 0.2 Absolute Neuts (auto) 4.3 Absolute Lymphs (auto) 0.67 L Total Counted Not Reportable Sodium 139 Potassium 3.6 Chloride 101 Carbon Dioxide 27.0 Anion Gap 11 BUN 23 H Creatinine 1.25 Estim Creat Clear Calc 55.48 Est GFR (MDRD) Af Amer 74 Est GFR (MDRD) Non-Af 61 BUN/Creatinine Ratio 18.4 Glucose 123 H Calcium 7.8 L Medical Necessity - Tobacco Use Smoking Status: Never smoker Tobacco Use: Non-smoker Assessment/Plan All Active Problems Fracture of radial head, left, closed (Acute) Closed left hip fracture (Acute) Chest pain (Acute) Contusion of left hip (Acute) Left intertrochanteric hip fracture Left elbow depressed lateral rim fracture of the radial head Postop day 1 cephalo-medullary nail 1. DVT prophylaxis: Xarelto for 2 weeks followed by a course of oral aspirin patient will be switched in the office 2. Physical therapy: Weight-bear as tolerated, activity as tolerated 3. Pain control: Currently pain is under control continue current regimen 4. Elbow: Splint for 2 weeks followed by early range of motion nonweightbearing for 6 weeks patient is however able to bear weight through the elbow for the platform on the walker 5. Anemia: Acute, related to fracture and postop/Intra-Op bleeding. Likely some dilutional effect as well considering IV fluids and hydration admission 6. Disposition: Rehab versus home. Will be able to determine this better over the next 24-48 hours as patient participates in therapy. [facility] Office:
[2018-03-21] MEDS: Calcium (Elemental) 500 MG Tablet 1000 MG PO (08:20)
--- NOTE | 2018-03-21 09:24 | PCM.PN.HOSP ---
Patient Problems: Active and Suspected Problems Fracture of radial head, left, closed (Acute) Closed left hip fracture (Acute) Subjective: Patient was seen and examined. He had issues trying to void yesterday. He had to be straight catheterized yesterday. He was able to void this morning. Pain is about 4 out of 10. Denies chest pain, dizziness, palpitations. Objective: Physical exam: General: Alert, Oriented x3, Cooperative, No apparent distress, off oxygen HEENT: Atraumatic, PERRLA, EOMI, Normocephalic Oral: Moist Mucosa Neck: Supple, No JVD, Negative Carotid Bruits Lungs: Clear to auscultation, Normal air movement Cardiovascular: Regular rate, Regular Rhythm, Normal S1, Normal S2, No murmurs Abdomen: Bowel Sounds Present, Soft, Non Tender, Non-Distended, No Hepato-splenomegaly Extremities: No edema Skin: No rashes, No breakdown Musculoskeletal: No Tenderness to Palpation of Joints or Extremities Lymphatic: No Cervical, Supraclavicular, or Inguinal Adenopathy Neurological: Cranial nerves II-XII grossly intact, Neuro grossly intact Psych/Mental Status: Normal Affect, Appropriate Vitals/I&O's: Vital Signs Temp Pulse Resp BP Pulse Ox 98.0 F 89 16 124/69 H 95 03/21/18 07:47 03/21/18 07:47 03/21/18 07:47 03/21/18 07:47 03/21/18 07:47 Oxygen Flow Rate (L/min) 2 Oxygen Delivery Method Room Air Weight: 100.3 kg Body Mass Index (BMI) 32.7 Intake and Output for Last 24 Hours 03/19/18 03/20/18 03/21/18 23:59 23:59 23:59 Intake Total 300 / 300 3855 / 3855 1018 / 1018 Output Total 425 / 425 675 / 675 275 / 275 Balance -125 / -125 3180 / 3180 743 / 743 Laboratory Results 03/21/18 05:30: Sodium 139, Potassium 3.6, Chloride 101, Carbon Dioxide 27.0, Anion Gap 11, BUN 23 H, Creatinine 1.25, Estim Creat Clear Calc 55.48, Est GFR (MDRD) Af Amer 74, Est GFR (MDRD) Non-Af 61, BUN/Creatinine Ratio 18.4, Glucose 123 H, Calcium 7.8 L 03/21/18 05:30: WBC 5.7, RBC 2.95 L, Hgb 9.4 L, Hct 28.4 L, MCV 96.3 H, MCH 31.9, MCHC 33.1, RDW 14.6, RDW Differential 50.8 H, Plt Count 130 L, MPV 9.1, Immature Gran % (Auto) 0.400, Neut % (Auto) 75.3 H, Lymph % (Auto) 11.8 L, [place] % (Auto) 11.1 H, Eos % (Auto) 1.2, Baso % (Auto) 0.2, Absolute Neuts (auto) 4.3, Absolute Lymphs (auto) 0.67 L, Total Counted Not Reportable Current Medications Acetaminophen (Tylenol) 1,[address] [facility] Last Admin: 03/21/18 07:13 Dose: 1,000 mg Allopurinol (Zyloprim) [address] [facility] Last Admin: 03/20/18 12:13 Dose: 200 mg Calcium Carbonate (Os-Elroy 500) 1,000 mg PO DAILY@0800 [facility] Last Admin: 03/21/18 08:20 Dose: 1,000 mg Cholecalciferol (Vitamin D) 1,[address] [facility] Last Admin: 03/20/18 12:14 Dose: 1,000 unit Famotidine (Pepcid) [address] [facility] Last Admin: 03/20/18 21:20 Dose: 20 mg Lisinopril (Zestril) [address] [facility] Last Admin: 03/20/18 21:20 Dose: Not Given Magnesium Hydroxide (Milk Of Magnesia) 30 ml PO DAILY PRN PRN PRN Reason: Constipation Morphine Sulfate () 2 - 4 mg IV Q2H PRN PRN PRN Reason: Severe pain (6-10) Nutritional Formula (Lactose Free) (Ensure Enlive) [address] [facility] Last Admin: 03/21/18 02:30 Dose: Not Given Ondansetron HCl (Zofran) 4 mg IV Q6H PRN PRN PRN Reason: Nausea Oxycodone HCl (Oxyir) 5 - 10 mg PO Q4H PRN PRN PRN Reason: PAIN Last Admin: 03/21/18 07:35 Dose: 10 mg Promethazine HCl (Phenergan) 12.5 mg IV Q6H PRN PRN PRN Reason: NAUSEA/VOMITING Rivaroxaban (Xarelto) 10 mg PO DAILY@0600 [facility] Last Admin: 03/21/18 07:42 Dose: 10 mg Senna/Docusate Sodium (Senokot-S, Evette-Colace) 2 tablet PO BID PRN PRN PRN Reason: Constipation Sodium Chloride () 5 - 15 ml IV UD PRN PRN Reason: SALINE FLUSH Last Admin: 03/19/18 19:29 Dose: 10 ml Medical Necessity - Tobacco Use Smoking Status: Never smoker Tobacco Use: Non-smoker Assessment/Plan All Active Problems Fracture of radial head, left, closed (Acute) Closed left hip fracture (Acute) Chest pain (Acute) Contusion of left hip (Acute) 67-year-old male with past medical history hypertension, GERD comes in with complaints of hip pain and found to have depressed fracture of the left radial head with joint effusion and comminuted nondisplaced left intertrochanteric fracture. 1. POD#1 status post left cephalo-medullary nailing, for comminuted nondisplaced left intertrochanteric fracture, pain is fairly controlled, PT and OT, wound care and other therapy recommendations per orthopedics 2. Left radial head fracture, in splint, nonweightbearing with a hand and elbow Orthopedics plan is to put in splint for 2 weeks and then begin range of movement. 3. Hypertension, controlled, continue home lisinopril 4. DVT prophylaxis with Xarelto 5. Disposition: Per orthopedics recommendations Code Visit Inpatient E&M: 80198 Subs Hosp L2
--- NOTE | 2018-03-21 09:31 | PN_ITS ---
Patient Problems: Active and Suspected Problems Fracture of radial head, left, closed (Acute) Closed left hip fracture (Acute) Subjective: Patient was seen and examined. He had issues trying to void yesterday. He had to be straight catheterized yesterday. He was able to void this morning. Pain is about 4 out of 10. Denies chest pain, dizziness, palpitations. Objective: Physical exam: General: Alert, Oriented x3, Cooperative, No apparent distress, off oxygen HEENT: Atraumatic, PERRLA, EOMI, Normocephalic Oral: Moist Mucosa Neck: Supple, No JVD, Negative Carotid Bruits Lungs: Clear to auscultation, Normal air movement Cardiovascular: Regular rate, Regular Rhythm, Normal S1, Normal S2, No murmurs Abdomen: Bowel Sounds Present, Soft, Non Tender, Non-Distended, No Hepato- splenomegaly Extremities: No edema Skin: No rashes, No breakdown Musculoskeletal: No Tenderness to Palpation of Joints or Extremities Lymphatic: No Cervical, Supraclavicular, or Inguinal Adenopathy Neurological: Cranial nerves II-XII grossly intact, Neuro grossly intact Psych/Mental Status: Normal Affect, Appropriate Vitals/I&O's: Vital Signs Temp Pulse Resp BP Pulse Ox 98.0 F 89 16 124/69 H 95 03/21/18 07:47 03/21/18 07:47 03/21/18 07:47 03/21/18 07:47 03/21/18 07:47 Oxygen Flow Rate (L/min) 2 Oxygen Delivery Method Room Air Weight: 100.3 kg Body Mass Index (BMI) 32.7 Intake and Output for Last 24 Hours 03/19/18 03/20/18 03/21/18 23:59 23:59 23:59 Intake Total 300 / 300 3855 / 3855 1018 / 1018 Output Total 425 / 425 675 / 675 275 / 275 Balance -125 / -125 3180 / 3180 743 / 743 Laboratory Results 03/21/18 05:30: Sodium 139, Potassium 3.6, Chloride 101, Carbon Dioxide 27.0, Anion Gap 11, BUN 23 H, Creatinine 1.25, Estim Creat Clear Calc 55.48, Est GFR (MDRD) Af Amer 74, Est GFR (MDRD) Non-Af 61, BUN/Creatinine Ratio 18.4, Glucose 123 H, Calcium 7.8 L 03/21/18 05:30: WBC 5.7, RBC 2.95 L, Hgb 9.4 L, Hct 28.4 L, MCV 96.3 H, MCH 31.9, MCHC 33.1, RDW 14.6, RDW Differential 50.8 H, Plt Count 130 L, MPV 9.1, Immature Gran % (Auto) 0.400, Neut % (Auto) 75.3 H, Lymph % (Auto) 11.8 L, [place] % (Auto) 11.1 H, Eos % (Auto) 1.2, Baso % (Auto) 0.2, Absolute Neuts (auto) 4.3, Absolute Lymphs (auto) 0.67 L, Total Counted Not Reportable Current Medications Acetaminophen (Tylenol) 1,000 mg PO Q8 [facility] Last Admin: 03/21/18 07:13 Dose: 1,000 mg Allopurinol (Zyloprim) 200 mg PO DAILY [facility] Last Admin: 03/20/18 12:13 Dose: 200 mg Calcium Carbonate (Os-Elroy 500) 1,000 mg PO DAILY@0800 [facility] Last Admin: 03/21/18 08:20 Dose: 1,000 mg Cholecalciferol (Vitamin D) 1,000 unit PO DAILY [facility] Last Admin: 03/20/18 12:14 Dose: 1,000 unit Famotidine (Pepcid) 20 mg PO BID [facility] Last Admin: 03/20/18 21:20 Dose: 20 mg Lisinopril (Zestril) 20 mg PO BID [facility] Last Admin: 03/20/18 21:20 Dose: Not Given Magnesium Hydroxide (Milk Of Magnesia) 30 ml PO DAILY PRN PRN PRN Reason: Constipation Morphine Sulfate () 2 - 4 mg IV Q2H PRN PRN PRN Reason: Severe pain (6-10) Nutritional Formula (Lactose Free) (Ensure Enlive) 120 ml PO TID [facility] Last Admin: 03/21/18 02:30 Dose: Not Given Ondansetron HCl (Zofran) 4 mg IV Q6H PRN PRN PRN Reason: Nausea Oxycodone HCl (Oxyir) 5 - 10 mg PO Q4H PRN PRN PRN Reason: PAIN Last Admin: 03/21/18 07:35 Dose: 10 mg Promethazine HCl (Phenergan) 12.5 mg IV Q6H PRN PRN PRN Reason: NAUSEA/VOMITING Rivaroxaban (Xarelto) 10 mg PO DAILY@0600 [facility] Last Admin: 03/21/18 07:42 Dose: 10 mg Senna/Docusate Sodium (Senokot-S, Evette-Colace) 2 tablet PO BID PRN PRN PRN Reason: Constipation Sodium Chloride () 5 - 15 ml IV UD PRN PRN Reason: SALINE FLUSH Last Admin: 03/19/18 19:29 Dose: 10 ml Medical Necessity - Tobacco Use Smoking Status: Never smoker Tobacco Use: Non-smoker Assessment/Plan All Active Problems Fracture of radial head, left, closed (Acute) Closed left hip fracture (Acute) Chest pain (Acute) Contusion of left hip (Acute) 67-year-old male with past medical history hypertension, GERD comes in with complaints of hip pain and found to have depressed fracture of the left radial head with joint effusion and comminuted nondisplaced left intertrochanteric fracture. 1. POD#1 status post left cephalo-medullary nailing, for comminuted nondisplaced left intertrochanteric fracture, pain is fairly controlled, PT and OT, wound care and other therapy recommendations per orthopedics 2. Left radial head fracture, in splint, nonweightbearing with a hand and elbow Orthopedics plan is to put in splint for 2 weeks and then begin range of movement. 3. Hypertension, controlled, continue home lisinopril 4. DVT prophylaxis with Xarelto 5. Disposition: Per orthopedics recommendations Code Visit Inpatient E&M: 11812 Subs Hosp L2
[2018-03-21] MEDS: Allopurinol 100 MG Tablet 200 MG PO (10:39)
[2018-03-21] MEDS: Lisinopril 20 MG Tablet PO ×2 (10:39→20:53)
[2018-03-21] MEDS: Famotidine 20 MG Tablet PO ×2 (10:40→20:53)
[2018-03-21 11:47] VITALS: BP 107/71; PULSE 86; RESP 16; TEMP 36.6; O2SAT 98
[2018-03-21 15:52] VITALS: BP 104/54; PULSE 83; RESP 18; TEMP 37.3; O2SAT 98
[2018-03-21 20:46] VITALS: BP 110/63; PULSE 87; RESP 16; TEMP 37.3; O2SAT 95
[2018-03-21] MEDS: 0.9% NaCl Peripheral Flush Adult/Peds IV (20:58)
[2018-03-22 02:30] VITALS: BP 109/64; PULSE 86; RESP 16; TEMP 36.9; O2SAT 92
[2018-03-22] MEDS: Rivaroxaban 10 MG Tablet PO (05:52)
[2018-03-22] MEDS: Acetaminophen 500 MG Tablet 1000 MG PO ×2 (05:52→12:38)
--- NOTE | 2018-03-22 06:55 | PCM.PN.ORT ---
Patient Problems: Active and Suspected Problems Fracture of radial head, left, closed (Acute) Closed left hip fracture (Acute) Subjective: Patient is doing well this morning. Pain is controlled with current regimen. No chest pain or shortness of breath. Was able to participate with physical therapy yesterday. Base issue at this time is continued difficulty with weightbearing due to weightbearing associated pain. Overall has been happy with his progress still unsure about his ability to go home and take care of himself. - Physical Exam General: Alert, Oriented x3, Cooperative Extremities: - - Left lower extremity: Dressing is clean dry and intact Sensations intact to light touch saphenous, sural, superficial peroneal, deep peroneal, and tibial distributions Motors intact EHL, DF, PF calves are soft and supple Vital Signs Temp Pulse Resp BP Pulse Ox 98.5 F 86 16 109/64 92 03/22/18 02:30 03/22/18 02:30 03/22/18 02:30 03/22/18 02:30 03/22/18 02:30 Oxygen Flow Rate (L/min) 2 Oxygen Delivery Method Room Air Weight: 221 lb 1.978 oz Body Mass Index (BMI) 32.7 Intake and Output for Last 24 Hours 03/20/18 03/21/18 03/22/18 23:59 23:59 23:59 Intake Total 3855 / 3855 3978 / 3978 200 / 200 Output Total 675 / 675 3185 / 3185 625 / 625 Balance 3180 / 3180 793 / 793 -425 / -425 Medical Necessity - Tobacco Use Smoking Status: Never smoker Tobacco Use: Non-smoker Assessment/Plan All Active Problems Fracture of radial head, left, closed (Acute) Closed left hip fracture (Acute) Chest pain (Acute) Contusion of left hip (Acute) Left intertrochanteric hip fracture Left elbow depressed lateral rim fracture of the radial head Postop day 2 cephalo-medullary nail 1. DVT prophylaxis: Xarelto for 2 weeks followed by a course of oral aspirin patient will be switched in the office 2. Physical therapy: Weight-bear as tolerated, activity as tolerated, continue to evaluate for appropriate disposition 3. Pain control: Currently pain is under control continue current regimen 4. Elbow: Splint for 2 weeks followed by early range of motion nonweightbearing for 6 weeks patient is however able to bear weight through the elbow for the platform on the walker 5. Anemia: Acute, related to fracture and postop/Intra-Op bleeding. Likely some dilutional effect as well considering IV fluids and hydration admission. Vital signs are stable currently asymptomatic 6. Disposition: Rehab versus home. Will be able to determine this better over the next 24-48 hours as patient participates in therapy. Patient will follow-up in the office with orthopedics 2 weeks after surgery for radiographs and staple removal. Upon discharge patient should have dressings removed 5 days after surgery. DVT prophylaxis as noted above. [facility] Office:
[2018-03-22 07:38] VITALS: BP 95/51; PULSE 83; RESP 18; TEMP 37.1; O2SAT 92
[2018-03-22] MEDS: Famotidine 20 MG Tablet PO (07:49)
[2018-03-22] MEDS: Calcium (Elemental) 500 MG Tablet 1000 MG PO (07:49)
[2018-03-22] MEDS: Allopurinol 100 MG Tablet 200 MG PO (07:50)
[2018-03-22 07:53] VITALS: BP 111/68
[2018-03-22] MEDS: oxyCODONE 5 MG Tablet PO (07:57)
[2018-03-22] MEDS: Lisinopril 20 MG Tablet PO (07:58)
--- NOTE | 2018-03-22 08:07 | PCM.PN.HOSP ---
Patient Problems: Active and Suspected Problems Fracture of radial head, left, closed (Acute) Closed left hip fracture (Acute) Subjective: Patient was seen and examined. Denied any pain except when he is moving with therapy. Denied any fever or chills. Able to void. Complains of constipation. No other acute events overnight. Vitals have been stable. Objective: Physical exam: General: Alert, Oriented x3, Cooperative, No apparent distress, off oxygen HEENT: Atraumatic, PERRLA, EOMI, Normocephalic Oral: Moist Mucosa Neck: Supple, No JVD, Negative Carotid Bruits Lungs: Clear to auscultation, Normal air movement Cardiovascular: Regular rate, Regular Rhythm, Normal S1, Normal S2, No murmurs Abdomen: Bowel Sounds Present, Soft, Non Tender, Non-Distended, No Hepato-splenomegaly Extremities: No edema in bilateral lower legs, left upper extremity in splint, able to wiggle fingers Skin: No rashes, No breakdown Musculoskeletal: Mild tenderness over left hip, Lymphatic: No Cervical, Supraclavicular, or Inguinal Adenopathy Neurological: Cranial nerves II-XII grossly intact, Neuro grossly intact Psych/Mental Status: Normal Affect, Appropriate Vitals/I&O's: Vital Signs Temp Pulse Resp BP Pulse Ox 98.8 F 83 18 111/68 92 03/22/18 07:38 03/22/18 07:38 03/22/18 07:38 03/22/18 07:53 03/22/18 07:38 Oxygen Flow Rate (L/min) 2 Oxygen Delivery Method Room Air Weight: 100.3 kg Body Mass Index (BMI) 32.7 Intake and Output for Last 24 Hours 03/20/18 03/21/18 03/22/18 23:59 23:59 23:59 Intake Total 3855 / 3855 3978 / 3978 200 / 200 Output Total 675 / 675 3185 / 3185 625 / 625 Balance 3180 / 3180 793 / 793 -425 / -425 Current Medications Acetaminophen (Tylenol) 1,000 mg PO Q8 [facility] Last Admin: 03/22/18 05:52 Dose: 1,000 mg Allopurinol (Zyloprim) 200 mg PO DAILY [facility] Last Admin: 03/22/18 07:50 Dose: 200 mg Calcium Carbonate (Os-Elroy 500) 1,000 mg PO DAILY@0800 [facility] Last Admin: 03/22/18 07:49 Dose: 1,000 mg Cholecalciferol (Vitamin D) 1,000 unit PO DAILY [facility] Last Admin: 03/22/18 07:49 Dose: 1,000 unit Famotidine (Pepcid) 20 mg PO BID [facility] Last Admin: 03/22/18 07:49 Dose: 20 mg Lisinopril (Zestril) 20 mg PO BID [facility] Last Admin: 03/22/18 07:58 Dose: 20 mg Magnesium Hydroxide (Milk Of Magnesia) 30 ml PO DAILY PRN PRN PRN Reason: Constipation Morphine Sulfate () 2 - 4 mg IV Q2H PRN PRN PRN Reason: Severe pain (6-10) Nutritional Formula (Lactose Free) (Ensure Enlive) 120 ml PO TID [facility] Last Admin: 03/21/18 23:52 Dose: Not Given Ondansetron HCl (Zofran) 4 mg IV Q6H PRN PRN PRN Reason: Nausea Oxycodone HCl (Oxyir) 5 - 10 mg PO Q4H PRN PRN PRN Reason: PAIN Last Admin: 03/22/18 07:57 Dose: 10 mg Promethazine HCl (Phenergan) 12.5 mg IV Q6H PRN PRN PRN Reason: NAUSEA/VOMITING Rivaroxaban (Xarelto) 10 mg PO DAILY@0600 [facility] Last Admin: 03/22/18 05:52 Dose: 10 mg Senna/Docusate Sodium (Senokot-S, Evette-Colace) 2 tablet PO BID PRN PRN PRN Reason: Constipation Sodium Chloride () 5 - 15 ml IV UD PRN PRN Reason: SALINE FLUSH Last Admin: 03/21/18 20:58 Dose: 10 ml Medical Necessity - Tobacco Use Smoking Status: Never smoker Tobacco Use: Non-smoker Assessment/Plan All Active Problems Fracture of radial head, left, closed (Acute) Closed left hip fracture (Acute) Chest pain (Acute) Contusion of left hip (Acute) 67-year-old male with past medical history hypertension, GERD comes in with complaints of hip pain and found to have depressed fracture of the left radial head with joint effusion and comminuted nondisplaced left intertrochanteric fracture. 1. POD#2 status post left cephalo-medullary nailing, for comminuted nondisplaced left intertrochanteric fracture, pain is controlled, PT and OT, wound care and other therapy recommendations per orthopedics 2. Left radial head fracture, in splint, nonweightbearing with a hand and elbow Orthopedics plan is to put in splint for 2 weeks and then begin range of movement. 3. Anemia, post-op related vs dilututional, hemoglobin from 12.5 to 9.4, will check iron stores,m if low, will start on po iron 4. Hypertension, relatively low, on lisinopril, will continue to hold for SBP <110 5. DVT prophylaxis with Xarelto 6. Disposition: Per orthopedics recommendations; possible TCU at discharge Code Visit Inpatient E&M: 19921 Subs Hosp L2
[2018-03-22 08:44] LABS: AST(SGOT) 19 U/L (15-37); Alanine Aminotransfer ALT/SGPT 25 U/L (16-61); Albumin, Serum 2.7 g/dL (3.2-5.0); Alkaline Phosphatase 63 U/L (45-117); Bilirubin, Direct 0.33 mg/dL (0.00-0.30); Globulin 2.7 g/dL (2.2-4.2); Iron 30 ug/dL (65-175); Iron Binding Capacity,Total 218 ug/dL (250-450); PERCENT IRON SATURATION 13.8 % (15.0-55.0); Protein, Total 5.4 g/dL (6.4-8.2)
--- NOTE | 2018-03-22 10:17 | CASEMGMT ---
Addendum entered by Bharati Ambrose 03/22/18 10:54: SW received message from Cary with [facility] stating Dr. Davis is agreeable to pt coming to TCU once medically cleared. Original Note: Social Work Note RN IVY French updated this worker that Sammie [facility] had placed pt on [facility] list Thursday for possible referral for [facility]. SW met with pt to confirm discharge plans. Pt is alert and orientated x3. Pt states that he is agreeable to [facility] or TCU at [facility]. Pt states that this first choice is [facility]. SW placed a call to Cary with [facility]. Per Cary she is able to accept pt today or once medically cleared. Physician updated. Plan: [facility] once medically cleared Bharati Ambrose [employer], [employer]
--- NOTE | 2018-03-22 10:24 | HP.PCM_ITS ---
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 previously completely indepedence.doing well now although cons tipated. pain controlled. slept poorly last night.able to ambulate with walker. lives with in one story house no steps. per admit note:The patient is a 67 year old M who was walking his dog, slipped on a patch of ice and landed on his left elbow and hip. Patient had pain. Brought to the emergency room and was found to have a depressed fracture of the left radial head with joint effusion and comminuted nondisplaced left intertrochanteric fracture. Patient denies hitting his head. Patient was seen in the emergency room and had his left arm splinted. Dr. Salvador, of orthopedics, was contacted and would be seeing the patient in consultation. Past Medical History Past Medical History (Chronic Problems): Chronic Problems HTN (hypertension) (Chronic) GERD (gastroesophageal reflux disease) (Chronic) Allergies Egg Derived Allergy (Verified 03/21/18 07:16) Food Allergy Penicillins Allergy (Verified 12/13/17 14:05) Anaphylaxis Milk Containing Products Adverse Reaction (Verified 03/20/18 21:18) Diarrhea STEROIDS Adverse Reaction (Uncoded 12/13/17 14:06) Shortness of breath Home Medications: Ambulatory Orders Medication Instructions Recorded Hydrochlorothiazide 12.5 mg PO BID 08/15/13 Lisinopril [Zestril] 20 mg PO BID 04/28/14 Allopurinol [Zyloprim] 200 mg PO DAILY 12/13/17 Omeprazole 40 mg PO DAILY 03/19/18 Acetaminophen [Tylenol] 1,000 mg PO Q8 PRN #90 tablet 03/22/18 Ascorbic Acid [Vitamin C] 500 mg PO BIDCM #60 tablet 03/22/18 Calcium (Elemental) [Os-Elroy 500] 1,000 mg PO DAILY@0800 #30 tablet 03/22/18 Cholecalciferol (VIT D3) [Vitamin 1,000 unit PO DAILY #30 tablet 03/22/18 D3] Ensure Enlive 120 ml PO TID #30 liquid 03/22/18 Ferrous Sulfate Syrup 300 mg PO BIDCM #60 udc 03/22/18 Oxycodone [Oxyir] 5 - 10 mg PO Q4H PRN PRN 5 Days 03/22/18 #20 tablet Rivaroxaban [Xarelto] 10 mg PO DAILY@0600 #30 tablet 03/22/18 Senna/Docusate Sodium [Senokot-S] 2 tablet PO BID PRN PRN #60 tablet 03/22/18 Surgical History: herniorrhaphy Psychiatric History: No pertinent psych hx Smoking Status: Never smoker Tobacco Use: Non-smoker Alcohol: Rare Drugs: None - *Family History Maternal History Items: Stroke Paternal History Items: Heart Disease - 3x CA by the age of 60 Review of Systems Constitutional: Denies: Chills, Fever, Weight Change HEENT: Denies: Head Aches, Sinus Congestion, Sinus Drainage Cardiovascular: Denies: Chest Pain, Palpitations Respiratory: Denies: Cough, Shortness of breath at rest, Sputum production Gastrointestinal: Reports: Constipation. Denies: Abdominal Pain, Nausea, Vomiting Genitourinary: Denies: Dysuria Musculoskeletal: Denies: Joint Pain, Joint Tenderness Skin: Denies: Rash, Wounds Neurological: Denies: Numbness, Tingling, Focal weakness Psychiatric: Denies: Anxiety, Depression, Homicidal Ideations, Suicidal Ideations Hematologic/ Lymphatic: Denies: Easy Bruising, Easy Bleeding VTE Information - Inpt Only VTE Present on Admission: Yes VTE Pharm Prophylaxis ordered?: Yes Patient Problems: Active and Suspected Problems Fracture of radial head, left, closed (Acute) Closed left hip fracture (Acute) - Physical Exam General: Alert, Oriented x3, Cooperative, No apparent distress Neurological: Cranial nerves II-XII grossly intact Psych/Mental Status: Normal Affect, Alert and oriented to time, place, person, mood and affect Vital Signs Temp Pulse Resp BP Pulse Ox 37.1 C 83 18 111/68 92 03/22/18 07:38 03/22/18 07:38 03/22/18 07:38 03/22/18 07:53 03/22/18 07:38 Oxygen Flow Rate (L/min) 2 Oxygen Delivery Method Room Air Weight: 100.3 kg Body Mass Index (BMI) 32.7 Intake and Output for Last 24 Hours 03/20/18 03/21/18 03/22/18 23:59 23:59 23:59 Intake Total 3855 / 3855 3978 / 3978 200 / 200 Output Total 675 / 675 3185 / 3185 625 / 625 Balance 3180 / 3180 793 / 793 -425 / -425 Laboratory Tests Past 24 Hrs 03/22/18 05:30 Iron 30 L TIBC 218 L Iron Saturation 13.8 L Total Bilirubin 1.10 H Direct Bilirubin 0.33 H AST 19 ALT 25 Alkaline Phosphatase 63 Total Protein 5.4 L Albumin 2.7 L Globulin 2.7 Current Medications Generic Name Dose Route Start Last Admin Trade Name Freq PRN Reason Stop Dose Admin Acetaminophen 1,000 mg 03/20/18 14:00 03/22/18 05:52 Tylenol PO 1,000 mg Q8 [facility] Administration Allopurinol 200 mg 03/19/18 10:45 03/22/18 07:50 Zyloprim PO 200 mg DAILY [facility] Administration Ascorbic Acid 500 mg 03/22/18 17:00 Vitamin C PO BIDCM [facility] Calcium Carbonate 1,000 mg 03/20/18 12:00 03/22/18 07:49 Os-Elroy 500 PO 1,000 mg DAILY@0800 [facility] Administration Cholecalciferol 1,000 unit 03/20/18 10:00 03/22/18 07:49 Vitamin D PO 1,000 unit DAILY [facility] Administration Famotidine 20 mg 03/19/18 22:00 03/22/18 07:49 Pepcid PO 20 mg BID [facility] Administration Ferrous Sulfate 300 mg 03/22/18 17:00 Ferrous Sulfate Syrup PO BIDCM [facility] Lisinopril 20 mg 03/22/18 10:00 03/22/18 08:42 Zestril PO Not Given BID [facility] Magnesium Hydroxide 30 ml 03/19/18 10:45 Milk Of Magnesia PO DAILY PRN PRN Constipation Morphine Sulfate 2 - 4 mg 03/20/18 07:49 IV Q2H PRN PRN Severe pain (6-10) Ondansetron HCl 4 mg 03/20/18 07:49 Zofran IV Q6H PRN PRN Nausea Oxycodone HCl 5 - 10 mg 03/20/18 07:49 03/22/18 07:57 Oxyir PO 10 mg Q4H PRN PRN Administration PAIN Promethazine HCl 12.5 mg 03/20/18 07:49 Phenergan IV Q6H PRN PRN NAUSEA/VOMITING Rivaroxaban 10 mg 03/21/18 07:45 03/22/18 05:52 Xarelto PO 10 mg DAILY@0600 [facility] Administration Senna/Docusate Sodium 2 tablet 03/20/18 07:49 Senokot-S, Evette-Colace PO BID PRN PRN Constipation Sodium Chloride 5 - 15 ml 03/19/18 12:05 03/21/18 20:58 IV 10 ml UD PRN Administration SALINE FLUSH Assessment/Plan All Active Problems Fracture of radial head, left, closed (Acute) Closed left hip fracture (Acute) Chest pain (Acute) Contusion of left hip (Acute) debility s/p mechanical fall with left hip fx/orif and nondisplaced left radial fx. goal of rehab is adventism of prior level of functional independence. pt for gait and balance ot for adls dvt prophylaxis: xarelto bowel protocol: currently constipated prn analgesics: oxyir, consider adding duragesic htn: controlled jayson on bipal
--- NOTE | 2018-03-22 11:29 | DCINST_ITS ---
- Discharge Diagnoses Current Active Problems: Current Active and Chronic Problems Fracture of radial head, left, closed (Acute) Closed left hip fracture (Acute) Reason(s) for Visit for Discharge Instructions: Fall, hip and radial fracture You will use the following diet at home:: Cardiac Your food should be the consistency of: Regular Your liquids should be the consistency of: Regular/Thin Discharge Activity: Return to Normal Activity Allergies/Adverse Reactions: Allergies Egg Derived Allergy (Verified 03/21/18 07:16) Food Allergy Penicillins Allergy (Verified 12/13/17 14:05) Anaphylaxis Milk Containing Products Adverse Reaction (Verified 03/20/18 21:18) Diarrhea STEROIDS Adverse Reaction (Uncoded 12/13/17 14:06) Shortness of breath Medications to take at Discharge Hydrochlorothiazide 12.5 mg PO BID 08/15/13 Lisinopril [Zestril] 20 mg PO BID 04/28/14 Allopurinol [Zyloprim] 200 mg PO DAILY 12/13/17 Omeprazole 40 mg PO DAILY 03/19/18 Acetaminophen [Tylenol] 1,000 mg PO Q8 PRN #90 tablet 03/22/18 Ascorbic Acid [Vitamin C] 500 mg PO BIDCM #60 tablet 03/22/18 Calcium (Elemental) [Os-Elroy 500] 1,000 mg PO DAILY@0800 #30 tablet 03/22/18 Cholecalciferol (VIT D3) [Vitamin D3] 1,000 unit PO DAILY #30 tablet 03/22/18 Ensure Enlive 120 ml PO TID #30 liquid 03/22/18 Ferrous Sulfate Syrup 300 mg PO BIDCM #60 udc 03/22/18 Oxycodone [Oxyir] 5 - 10 mg PO Q4H PRN PRN 5 Days #20 tablet 03/22/18 Rivaroxaban [Xarelto] 10 mg PO DAILY@0600 #30 tablet 03/22/18 Senna/Docusate Sodium [Senokot-S] 2 tablet PO BID PRN PRN #60 tablet 03/22/18 The following prescriptions were given: Oxycodone [Oxyir] 5 - 10 mg PO Q4H PRN PRN 5 Days #20 tablet PRN Reason: Pain Acetaminophen [Tylenol] 1,000 mg PO Q8 PRN #90 tablet PRN Reason: Pain Calcium (Elemental) [Os-Elroy 500] 1,000 mg PO DAILY@0800 #30 tablet Cholecalciferol (VIT D3) [Vitamin D3] 1,000 unit PO DAILY #30 tablet Rivaroxaban [Xarelto] 10 mg PO DAILY@0600 #30 tablet Senna/Docusate Sodium [Senokot-S] 2 tablet PO BID PRN PRN #60 tablet PRN Reason: Constipation Ascorbic Acid [Vitamin C] 500 mg PO BIDCM #60 tablet Ferrous Sulfate Syrup 300 mg PO BIDCM #60 udc Ensure Enlive 120 ml PO TID #30 liquid Primary Care Physician: Arnaldo Casiano MD [Primary Care Provider] - Please follow up with your Primary Care Physician in: within 1-2 weeks after discharge Test Results: Test results from this visit will be discussed in further detail at your follow- up appointment, if applicable. Proposed Discharge Date: 03/22/18
--- NOTE | 2018-03-22 11:29 | DS.PCM_ITS ---
Discharge Date and Diagnosis - Problem List Patient Problems: Active and Suspected Problems Fracture of radial head, left, closed (Acute) Closed left hip fracture (Acute) Date of Admission: 03/19/18 Date of Discharge: 03/22/18 - Primary Discharge Diagnosis Active and Suspected Problems Fracture of radial head, left, closed (Acute) Closed left hip fracture (Acute) Post-op anemia - Secondary Discharge Diagnosis Chronic Problems HTN (hypertension) (Chronic) GERD (gastroesophageal reflux disease) (Chronic) Hospital Course and Treatment Imaging Results: Clinical Impression(s) from Imaging Studies Elbow X-Ray 03/19/18 08:38 IMPRESSION: Depressed fracture of the radial head with a joint effusion. Electronically Signed: Shimon Alcazar MD at 9:27 EST , Service support , Hip/Pelvis X-Ray 03/19/18 08:38 IMPRESSION: Comminuted nondisplaced left intertrochanteric fracture. Electronically Signed: Shimon Alcazar MD at 9:27 EST , Service support , Hip X-Ray 03/20/18 07:51 IMPRESSION: Left IT fracture fixation with medullary radha and left femoral neck screws. Gross radiographic alignment. Electronically Signed: Abel Crawley MD at 12:46 EST , Service support , Hip X-Ray 03/20/18 08:00 IMPRESSION: 1. Fluoroscopic guidance for left IT fracture fixation. See procedural report. Electronically Signed: Abel Crawley MD at 12:44 EST , Service support , Orthopedics surgery Operations: total hip replacement - left cephalomedullary nailing Summary of Care Provided: The patient is a 67 year old M with past medical history of hypertension who was walking his dog when he slipped on some ice and fell on his left side. He denies hitting his head or loss of consciousness. He had left elbow and hip pain. Patient was unable to ambulate after the fall and EMS was called to lift him up and transported him to the hospital. In the emergency department, his vitals were stable. He had a left intertrochanteric fracture and a left radial head fracture. Patient was admitted to the telemetry floor, orthopedic surgery was consulted, patient was sent for left cephalo-medullary nailing. He was managed conservatively in a posterior splint with nonweightbearing with a hand and elbow for 2 weeks. Patient will follow-up with orthopedic surgery. Patient was found to be urine retention in the immediate postop. He was st raight catheterised once. He subsequently was able to void. He also was noted to have a drop in his hemoglobin from 12.5-9.4. No overt signs of bleeding. This is likely secondary to blood loss during surgery as well as hemodilution. Patient will need to follow-up with repeat blood work within a week. He was also started on oral iron with vitamin C. Patient Problems: Active and Suspected Problems Fracture of radial head, left, closed (Acute) Closed left hip fracture (Acute) Subjective: See progress note of the day Objective: See progress note of the day - Physical Exam Vital Signs Temp Pulse Resp BP Pulse Ox 98.8 F 83 18 111/68 92 03/22/18 07:38 03/22/18 07:38 03/22/18 07:38 03/22/18 07:53 03/22/18 07:38 Oxygen Flow Rate (L/min) 2 Oxygen Delivery Method Room Air Weight: 100.3 kg Body Mass Index (BMI) 32.7 Intake and Output for Last 24 Hours 03/20/18 03/21/18 03/22/18 23:59 23:59 23:59 Intake Total 3855 / 3855 3978 / 3978 200 / 200 Output Total 675 / 675 3185 / 3185 625 / 625 Balance 3180 / 3180 793 / 793 -425 / -425 Laboratory Tests Past 24 Hrs 03/22/18 05:30 Iron 30 L TIBC 218 L Iron Saturation 13.8 L Total Bilirubin 1.10 H Direct Bilirubin 0.33 H AST 19 ALT 25 Alkaline Phosphatase 63 Total Protein 5.4 L Albumin 2.7 L Globulin 2.7 Discharge Diet: Low fat/ Low Cholesterol, 2000 mg Sodium Diet Discharge Activity: Return to Normal Activity Home Medications: Medications to take at Discharge Hydrochlorothiazide 12.5 mg PO BID 08/15/13 Lisinopril [Zestril] 20 mg PO BID 04/28/14 Allopurinol [Zyloprim] 200 mg PO DAILY 12/13/17 Omeprazole 40 mg PO DAILY 03/19/18 Acetaminophen [Tylenol] 1,000 mg PO Q8 PRN #90 tablet 03/22/18 Ascorbic Acid [Vitamin C] 500 mg PO BIDCM #60 tablet 03/22/18 Calcium (Elemental) [Os-Elroy 500] 1,000 mg PO DAILY@0800 #30 tablet 03/22/18 Cholecalciferol (VIT D3) [Vitamin D3] 1,000 unit PO DAILY #30 tablet 03/22/18 Ensure Enlive 120 ml PO TID #30 liquid 03/22/18 Ferrous Sulfate Syrup 300 mg PO BIDCM #60 udc 03/22/18 Oxycodone [Oxyir] 5 - 10 mg PO Q4H PRN PRN 5 Days #20 tablet 03/22/18 Rivaroxaban [Xarelto] 10 mg PO DAILY@0600 #30 tablet 03/22/18 Senna/Docusate Sodium [Senokot-S] 2 tablet PO BID PRN PRN #60 tablet 03/22/18 Following Prescrptions Were Given to Patient: Oxycodone [Oxyir] 5 - 10 mg PO Q4H PRN PRN 5 Days #20 tablet PRN Reason: Pain Acetaminophen [Tylenol] 1,000 mg PO Q8 PRN #90 tablet PRN Reason: Pain Calcium (Elemental) [Os-Elroy 500] 1,000 mg PO DAILY@0800 #30 tablet Cholecalciferol (VIT D3) [Vitamin D3] 1,000 unit PO DAILY #30 tablet Rivaroxaban [Xarelto] 10 mg PO DAILY@0600 #30 tablet Senna/Docusate Sodium [Senokot-S] 2 tablet PO BID PRN PRN #60 tablet PRN Reason: Constipation Ascorbic Acid [Vitamin C] 500 mg PO BIDCM #60 tablet Ferrous Sulfate Syrup 300 mg PO BIDCM #60 udc Ensure Enlive 120 ml PO TID #30 liquid Primary Care Physician: Arnaldo Casiano MD [Primary Care Provider] - Please follow up with your Primary Care Physician in: within 1-2 weeks after discharge Disposition: Inpt Rehab Unit/Facility Minutes spent on discharge:: 40 Patient Condition:: Stable Medical Necessity - Tobacco Use Smoking Status: Never smoker Tobacco Use: Non-smoker Meaningful Use Info Meaningful Use Diagnoses (Choose all that apply): None applicable Code Visit Inpatient E&M: 50217 Disch Hosp
[2018-03-22 11:41] VITALS: BP 122/74; PULSE 89; RESP 18; TEMP 36.8; O2SAT 97
--- NOTE | 2018-03-22 12:06 | REHABEVAL_ITS ---
Admission Information Status Changes from Prescreening?: No changes Identified Actual Problem List:: Falls, Pain, ALteration in Cmfrt, Bowel, Constipation, Alteration in Sleep, Mobility Impaired, Self Care Deficit, BP, Hypertension, Ineffect.D/C Plan r/t Psy Potential Problem List:: DVT, Bleeding, Infection, UTI, Aspiration, Falls, Skin Integrity, Depression Risk of Complications DVT: LMWH, LOUISE Hose, Sequential Compression Device Bleeding: Monitor Lab Values, Nursing to Teach Precautions for anti-coagulation therapy., Wound, if applicable, to be assessed every shift., Stroke patients assessed for lethargy or change in status. Infection: Clinical Staff to Monitor for S/S of infection:, S/S of infection include fever, redness, warmth, etc. Urinary Tract Infection: Monitor for frequency, burning, discomfort, or incontinence., Nursing will obtain urine sample for urinalysis and C&S when ordered. Aspiration: Clinical staff will monitor for coughing, drooling, congestion., Speech will evaluate swallowing and dsyphasia., Nursing will monitor patient swallowing during meals. Falls: Patient will be evaluated for Fall Precautions, Patient will be placed on Fall Precautions as indicated per protocol. Skin Breakdown: Nursing will assess skin daily using assessment tool., Nursing will place on Skin Breakdown Precautions as indicated. Pain: Clinical staff will assess patient's pain level per protocol., Medications will be given, if needed, and the pain level reassessed., Other methods: Massage, distraction, decrease stimulus, etc. used PRN. Plan of Care Patient requires physician specializing in physical medicine and rehab oversight to provide close medical supervision of rehab issues including: Pain Management, Sleep Problems, Bowel and Bladder, Medical and co-morbidity Management, DVT prophylaxis, Rehabilitation Leadership, Coordination of treatment team Patient needs Physical Therapy: For a minimum of 1 hour, At least 5 out of 7 days Patient needs Physical Therapy to improve:: Mobility, Mobility, Mobility, Strengthening, Transfers, Stretching, ROM, Endurance, Stairs, Gait, Balance Patient needs Occupational Therapy: For a minimum of 1 hour, At least 5 out of 7 days Patient needs Occupational Therapy to improve ADL's incl.: Eating, Grooming, Bathing, Dressing, Toileting, Toilet transfers, Community Reintegration, Higher functioning activities, Household tasks, Adaptive Equipment, Splinting, Other activities as determined Patient requires 24/ Rehabilitation Nursing for: Pain Issues, Identifying and preventing risk factors, Monitoring and reporting current medical conditions, Assisting with ambulation, transfer, and all ADL's, Teaching patients about disease process and medications, Family teaching, Providing safe environment, Bowel and Bladder Issues, Skin integrity, Medication Management Patient needs Copy Camera Operator/ Case Management for: Discharge Planning, Arranging Home Equipment or Services, Family Interventions Patient needs Dietary and Nutrition Services for: Adequate Nutrition, Nutritional Supplements, Nutritional Education Goals Patient will remain: free from falls, or injury at time of discharge. Patient will perform bed mobility at: MOD I level of assist. Patient will complete transfers from bed to chair at: MOD I level of assist. Patient will ambulate: 100 feet, with MOD I assist, with LRD Patient will complete upper body dressing at: MOD I level of assist. Patient will complete lower body dressing at: MOD I level of assist. Patient will complete toileting at: MOD I level of assist. Patient will perform bathing at: MOD I level of assist. Patient will complete grooming at: MOD I level of assist. Patient will complete home management skills at: MOD I level of assist. Patient will achieve: 12 stairs, at MOD I assist Patient will have pain level of: of 3 or less Patient's skin will: remain intact, free from infection. Patient will receive: adequate nutrition. Discharge Planning Pt Prognosis for Sig. Practical Improv. w/in Reasonable Time: Good Anticipated D/C Destination: Home with Outpt Therapy Was Preadmission Assessment Accurate?: Yes
--- NOTE | 2018-03-22 12:09 | CASEMGMT ---
Social Work Note Pt is medically cleared to be discharged to [facility] today. SW updated [facility] of this and she is able to accept pt today. SW updated pt and RN of discharge to [facility] today. Pt states understanding. Plan: [facility] today Bharati Ambrose AIR DRILL OPERATOR, COLLECTOR OF AQUARIUM SPECIMENS
== END 2018-03-22 13:28 | DRG 481 ==
LOC: ED 09:40 → MS3 10:53
PROVIDERS: Anesthesiology; Specialist; Emergency Provider Emergency Medicine; Family Provider Family Medicine; PCP Family Medicine; Visit Provider Internal Medicine
PROC: 0QS736Z Reposition Left Upper Femur with Intramedullary Internal Fixation Device, Percutaneous Approach (ICD-10-PCS; CPT 27245; principal; 2018-03-20 07:30)
DX: S72.142A Displaced intertrochanteric fracture of left femur, initial encounter for closed fracture (principal); D62 Acute posthemorrhagic anemia; S52.122A Displaced fracture of head of left radius, initial encounter for closed fracture; W00.0XXA Fall on same level due to ice and snow, initial encounter; Y93.K1 Activity, walking an animal; K21.9 Gastro-esophageal reflux disease without esophagitis; I10 Essential (primary) hypertension
CPT/HCPCS: 36415; 73080; 73502; 76000; 80048; 80076; 83540; 83550; 85025; 85610; 86850; 86900; 93005; 97110; 97116; 97162; 97166; 97530; 99251; 99284; C1713; J7120; A4216; G0463

== ENCOUNTER 2018-03-22 13:40 | Inpatient (IN) | payer MEDICARE, OTHER, SELFPAY ==
[2018-03-19 10:54] VITALS: BMI 32.7
--- NOTE | 2018-03-22 14:56 | CHAPLAIN ---
Type of Pastoral Visit ___ Initial Visit _x__ Follow-up Visit ___ On-call Visit ___ General Patient Visit ___ Spiritual Assessment ___ Family Conference ___ Bereavement ___ Rapid Response ___ Code Blue ___ Other (describe below) Pastoral Care Referral From _x__ Patient _x__ Family ___ Nurse ___ Physician ___ Finishing Tunnel Operator ___ Natural Resource Manager ___ Other (describe below) Sacrament/Intervention _x__ Active listening ___ Anointing ___ Zoroastrianism ___ Bereavement ___ Communion ___ Kim exploration ___ ___ Life review _x__ Prayer ___ Reconciliation ___ Sacrament of Sick _x__ Supportive presence ___ Wedding ___ Other (describe below) Pastoral Comments
[2018-03-22 15:52] VITALS: BP 137/53; PULSE 86; RESP 16; TEMP 37.1; O2SAT 96; BMI 33.5
[2018-03-22 18:00] VITALS: O2SAT 97
[2018-03-22] MEDS: Ferrous Sulfate 325 MG Tablet PO (18:31)
[2018-03-22] MEDS: Ascorbic Acid 500 MG Tablet PO (18:31)
--- NOTE | 2018-03-22 18:35 | NURSING ---
Pt. admitted to rm 409 came from [facility]. Oriented pt to room, call light, bedalarm. Pt verbalized understanding. Bed in lowest position, call light within reach.
--- NOTE | 2018-03-22 18:37 | NURSING ---
Removed IV from R. AC, no bleeding noted, pressure dressing applied.
[2018-03-22 20:38] VITALS: BP 117/60; PULSE 85; RESP 16; TEMP 38.1; O2SAT 92
[2018-03-22] MEDS: Acetaminophen 500 MG Tablet 1000 MG PO (22:23)
[2018-03-22] MEDS: hydroCHLOROthiazide 12.5mg 12.5 MG PO (22:24)
[2018-03-22] MEDS: Lisinopril 20 MG Tablet PO (22:24)
--- NOTE | 2018-03-22 22:25 | NURSING ---
Refuses Ensure due to being lactose intolerant
[2018-03-23] MEDS: Magnesium Hydroxide 30 ML UDC PO (00:11)
[2018-03-23] MEDS: MELATONIN 3 MG TABLET PO ×2 (00:11→20:49)
[2018-03-23] MEDS: oxyCODONE 5 MG Tablet PO ×4 (00:13→20:45)
[2018-03-23 00:33] VITALS: TEMP 37
--- NOTE | 2018-03-23 00:33 | NURSING ---
Temp 100.6 previously. Temp now 98.6 orally. Will continue to moniter. No redness at surgical site noted. Small to moderate SS drainage only from proximal surgical site on left hip with no odor.
[2018-03-23 05:42] LABS: Hematocrit 27.8 % (40-54); Mean Corp Hgb Conc 32.4 g/gl (32-36); Mean Corpuscular Hgb 31.9 pg (27.0-32.0); Mean Corpuscular Volume 98.6 fL (80-94); Mean Platelet Vol. 9.1 fl (6.2-12.0); Platelet Count 163 K/mm3 (150-450); RBC Distribution Width CV 13.9 % (11.6-14.6); RBC Distribution Width SD 47.6 fl (35.1-43.9); Red Blood Count 2.82 M/mm3 (4.6-6.2); White Blood Count 5.5 K/mm3 (4.4-11.0)
[2018-03-23 05:44] LABS: Scan Indicated on CBC? Y/N NO
[2018-03-23 06:05] LABS: Anion Gap 10 (5-15); BUN 24 mg/dL (7-18); Calcium,Total 8.3 mg/dL (8.5-10.1); Chloride 104 mmol/L (98-107); Creatinine, Serum 1.09 mg/dL (0.70-1.30); EST Glomerular Filtration Rate 72 mL/min (>60); Est Glom Filt Rate - Afr Amer 87 mL/min (>60); Estimated Creatinine Clearance 65.76 ml/min; Glucose 99 mg/dL (74-106); Potassium 3.9 mmol/L (3.5-5.1); Sodium Level 141 mmol/L (136-145)
[2018-03-23] MEDS: Rivaroxaban 10 MG Tablet PO ×2 (06:33→20:45)
[2018-03-23 09:08] VITALS: BP 167/64; PULSE 79; RESP 16; TEMP 37.1; O2SAT 94
[2018-03-23] MEDS: Allopurinol 100 MG Tablet 200 MG PO (10:08)
[2018-03-23] MEDS: Lisinopril 20 MG Tablet PO ×2 (10:08→20:44)
[2018-03-23] MEDS: Ferrous Sulfate 325 MG Tablet PO ×2 (10:09→18:26)
[2018-03-23] MEDS: Calcium (Elemental) 500 MG Tablet 1000 MG PO (10:09)
[2018-03-23] MEDS: hydroCHLOROthiazide 12.5mg 12.5 MG PO ×2 (10:09→20:44)
[2018-03-23] MEDS: Ascorbic Acid 500 MG Tablet PO ×2 (10:09→18:26)
[2018-03-23] MEDS: Pantoprazole Sodium 40 MG Tablet PO (10:09)
--- NOTE | 2018-03-23 11:37 | PCM.PN.NEU ---
Subjective: New complaints. Tolerating therapies. No GI or complaints. Slept well last night with use of melatonin. Remains somewhat constipated, nursing staff is aware and bowel protocol is in effect. - Physical Exam General: Alert, Oriented x3, Cooperative, No apparent distress HEENT: PERRLA, EOMI Neurological: Cranial nerves II-XII grossly intact Psych/Mental Status: Normal Affect, Alert and oriented to time, place, person, mood and affect Vital Signs Temp Pulse Resp BP Pulse Ox 37.1 C 79 16 167/64 H 94 03/23/18 09:08 03/23/18 09:08 03/23/18 09:08 03/23/18 09:08 03/23/18 09:08 Oxygen Delivery Method Room Air Weight: 102.8 kg Body Mass Index (BMI) 33.5 Intake and Output for Last 24 Hours 03/21/18 03/22/18 03/23/18 23:59 23:59 23:59 Intake Total 480 / 480 Output Total 200 / 200 Balance -200 / -200 480 / 480 Laboratory Tests Past 24 Hrs 03/23/18 03/23/18 05:27 05:27 WBC 5.5 RBC 2.82 L Hgb 9.0 L Hct 27.8 L MCV 98.6 H MCH 31.9 MCHC 32.4 RDW 13.9 RDW Differential 47.6 H Plt Count 163 MPV 9.1 Sodium 141 Potassium 3.9 Chloride 104 Carbon Dioxide 27.0 Anion Gap 10 BUN 24 H Creatinine 1.09 Estim Creat Clear Calc 65.76 Est GFR (MDRD) Af Amer 87 Est GFR (MDRD) Non-Af 72 BUN/Creatinine Ratio 22.0 H Glucose 99 Calcium 8.3 L Medical Necessity - Tobacco Use Smoking Status: Never smoker Assessment/Plan All Active Problems Fracture of radial head, left, closed (Acute) Closed left hip fracture (Acute) Chest pain (Acute) Contusion of left hip (Acute) debility s/p mechanical fall with left hip fx/orif and nondisplaced left radial fx. goal of rehab is rastafari of prior level of functional independence. pt for gait and balance ot for adls dvt prophylaxis: xarelto bowel protocol: currently constipated prn analgesics: oxyir, consider adding duragesic. 03/23: Today his pain remains controlled htn: controlled jayson on BiPAP
[2018-03-23] MEDS: Senna/Docusate Sodium 1 Tablet 2 TABLET PO ×2 (13:13→20:44)
[2018-03-23 20:00] VITALS: BP 120/71; PULSE 78; RESP 16; TEMP 36.8; O2SAT 94
--- NOTE | 2018-03-24 03:12 | NURSING ---
Reviewed and agree with CUT ROLL MACHINE OPERATOR documentation and FIMs charting.
[2018-03-24 07:00] VITALS: BP 118/66; PULSE 76; RESP 18; TEMP 36.8; O2SAT 98
[2018-03-24] MEDS: oxyCODONE 5 MG Tablet PO ×2 (08:57→14:20)
[2018-03-24] MEDS: Calcium (Elemental) 500 MG Tablet 1000 MG PO (08:57)
[2018-03-24] MEDS: Allopurinol 100 MG Tablet 200 MG PO (08:57)
[2018-03-24] MEDS: Lisinopril 20 MG Tablet PO ×2 (08:57→21:04)
[2018-03-24] MEDS: Senna/Docusate Sodium 1 Tablet 2 TABLET PO ×2 (08:58→21:04)
[2018-03-24] MEDS: Ferrous Sulfate 325 MG Tablet PO ×2 (08:59→17:14)
[2018-03-24] MEDS: hydroCHLOROthiazide 12.5mg 12.5 MG PO ×2 (08:59→21:04)
[2018-03-24] MEDS: Ascorbic Acid 500 MG Tablet PO ×2 (08:59→17:14)
[2018-03-24] MEDS: Pantoprazole Sodium 40 MG Tablet PO (08:59)
[2018-03-24 13:39] VITALS: O2SAT 98
[2018-03-24] MEDS: Magnesium Hydroxide 30 ML UDC PO (14:20)
--- NOTE | 2018-03-24 15:09 | CHAPLAIN ---
Type of Pastoral Visit ___ Initial Visit _x__ Follow-up Visit ___ On-call Visit ___ General Patient Visit ___ Spiritual Assessment ___ Family Conference ___ Bereavement ___ Rapid Response ___ Code Blue ___ Other (describe below) Pastoral Care Referral From _x__ Patient ___ Family ___ Nurse ___ Physician ___ Enamel Pulverizer ___ Regional Intermodal Truck Driver ___ Other (describe below) Sacrament/Intervention _x__ Active listening ___ Anointing ___ Congregation ___ Bereavement ___ Communion ___ Kim exploration ___ ___ Life review _x__ Prayer ___ Reconciliation ___ Sacrament of Sick _x__ Supportive presence ___ Wedding ___ Other (describe below) Pastoral Comments
[2018-03-24 20:34] VITALS: BP 107/60; PULSE 81; RESP 17; TEMP 36.7; O2SAT 93
[2018-03-24] MEDS: MELATONIN 3 MG TABLET PO (21:04)
[2018-03-25] MEDS: Rivaroxaban 10 MG Tablet PO (05:45)
[2018-03-25] MEDS: Acetaminophen 500 MG Tablet 1000 MG PO ×2 (05:45→20:55)
[2018-03-25] MEDS: oxyCODONE 5 MG Tablet PO ×2 (05:45→12:17)
[2018-03-25] MEDS: Allopurinol 100 MG Tablet 200 MG PO (07:23)
[2018-03-25] MEDS: Pantoprazole Sodium 40 MG Tablet PO (07:23)
[2018-03-25] MEDS: Lisinopril 20 MG Tablet PO ×2 (07:23→20:54)
[2018-03-25] MEDS: Calcium (Elemental) 500 MG Tablet 1000 MG PO (07:23)
[2018-03-25] MEDS: hydroCHLOROthiazide 12.5mg 12.5 MG PO ×2 (07:23→20:55)
[2018-03-25] MEDS: Ascorbic Acid 500 MG Tablet PO ×2 (07:23→16:54)
[2018-03-25] MEDS: Senna/Docusate Sodium 1 Tablet 2 TABLET PO ×2 (07:23→20:54)
[2018-03-25] MEDS: Ferrous Sulfate 325 MG Tablet PO ×2 (07:24→16:54)
[2018-03-25 08:59] VITALS: BP 115/60; PULSE 77; RESP 16; TEMP 36.7; O2SAT 95
[2018-03-25 09:00] VITALS: O2SAT 95
--- NOTE | 2018-03-25 13:27 | CASEMGMT ---
Reviewed and approved attached social work student documentation. Note: Assessment completed on Inpatient Rehab Unit. ANABELLA Carrizales
[2018-03-25 19:34] VITALS: BP 112/67; PULSE 79; RESP 18; TEMP 36.5; O2SAT 96
[2018-03-25] MEDS: MELATONIN 3 MG TABLET PO (20:54)
[2018-03-26] MEDS: oxyCODONE 5 MG Tablet PO ×2 (05:29→12:42)
[2018-03-26] MEDS: Rivaroxaban 10 MG Tablet PO (05:29)
[2018-03-26 07:16] VITALS: BP 106/64; PULSE 71; RESP 16; TEMP 36.3; O2SAT 93
[2018-03-26] MEDS: Allopurinol 100 MG Tablet 200 MG PO (07:18)
[2018-03-26] MEDS: Pantoprazole Sodium 40 MG Tablet PO (07:18)
[2018-03-26] MEDS: Senna/Docusate Sodium 1 Tablet 2 TABLET PO (07:18)
[2018-03-26] MEDS: hydroCHLOROthiazide 12.5mg 12.5 MG PO ×2 (07:19→19:43)
[2018-03-26] MEDS: Lisinopril 20 MG Tablet PO ×2 (07:19→19:43)
[2018-03-26] MEDS: Ascorbic Acid 500 MG Tablet PO ×2 (07:19→16:38)
[2018-03-26] MEDS: Calcium (Elemental) 500 MG Tablet 1000 MG PO (07:19)
[2018-03-26] MEDS: Ferrous Sulfate 325 MG Tablet PO ×2 (07:19→16:38)
--- NOTE | 2018-03-26 13:17 | PCM.PN.NEU ---
Subjective: no new complaints. constipation resolved. tolerating therapies. - Physical Exam General: Alert, Oriented x3, Cooperative, No apparent distress Neurological: Cranial nerves II-XII grossly intact Psych/Mental Status: Normal Affect, Alert and oriented to time, place, person, mood and affect Vital Signs Temp Pulse Resp BP Pulse Ox 36.3 C L 71 16 106/64 93 03/26/18 07:16 03/26/18 07:16 03/26/18 07:16 03/26/18 07:16 03/26/18 07:16 Oxygen Delivery Method Room Air Weight: 102 kg Body Mass Index (BMI) 33.5 Intake and Output for Last 24 Hours 03/24/18 03/25/18 03/26/18 23:59 23:59 23:59 Intake Total 780 / 780 Output Total 500 / 500 900 / 900 Balance 780 / 780 -500 / -500 -900 / -900 Medical Necessity - Tobacco Use Smoking Status: Never smoker Assessment/Plan All Active Problems Fracture of radial head, left, closed (Acute) Closed left hip fracture (Acute) Chest pain (Acute) Contusion of left hip (Acute) debility s/p mechanical fall with left hip fx/orif and nondisplaced left radial fx. goal of rehab is scientology of prior level of functional independence. pt for gait and balance ot for adls dvt prophylaxis: xarelto bowel protocol: currently constipated. 03/26: resolved prn analgesics: oxyir, consider adding duragesic. 03/23: Today his pain remains controlled. 03/26: stable htn: controlled. 03/26: stable jayson on BiPAP. 03/26: stable
[2018-03-26] MEDS: Acetaminophen 500 MG Tablet 1000 MG PO (16:38)
[2018-03-26 19:41] VITALS: BP 103/65; PULSE 82; RESP 18; TEMP 36.8; O2SAT 95
[2018-03-26] MEDS: LORazepam 0.5 MG Tablet PO (21:30)
--- NOTE | 2018-03-27 00:58 | NURSING ---
Reviewed and agree with SHELVER documentation and FIMs charting.
[2018-03-27] MEDS: oxyCODONE 5 MG Tablet PO ×2 (05:03→17:48)
[2018-03-27] MEDS: Rivaroxaban 10 MG Tablet PO (05:03)
[2018-03-27 07:33] VITALS: BP 102/58; PULSE 77; RESP 17; TEMP 36.8; O2SAT 97
[2018-03-27] MEDS: Calcium (Elemental) 500 MG Tablet 1000 MG PO (11:20)
[2018-03-27] MEDS: Lisinopril 20 MG Tablet PO ×2 (11:21→21:39)
[2018-03-27] MEDS: Allopurinol 100 MG Tablet 200 MG PO (11:21)
[2018-03-27] MEDS: Pantoprazole Sodium 40 MG Tablet PO (11:21)
[2018-03-27] MEDS: Ferrous Sulfate 325 MG Tablet PO ×2 (11:21→17:48)
[2018-03-27] MEDS: Ascorbic Acid 500 MG Tablet PO ×2 (11:21→17:47)
[2018-03-27] MEDS: hydroCHLOROthiazide 12.5mg 12.5 MG PO ×2 (11:21→19:42)
[2018-03-27 18:55] VITALS: BP 128/71; PULSE 75; RESP 16; TEMP 36.4; O2SAT 95
[2018-03-27] MEDS: LORazepam 0.5 MG Tablet PO (19:42)
[2018-03-27 22:00] VITALS: RESP 16
[2018-03-28] MEDS: Rivaroxaban 10 MG Tablet PO (06:06)
[2018-03-28 07:54] VITALS: BP 107/64; PULSE 79; RESP 18; TEMP 36.8; O2SAT 95
[2018-03-28] MEDS: Pantoprazole Sodium 40 MG Tablet PO (08:33)
[2018-03-28] MEDS: Ferrous Sulfate 325 MG Tablet PO ×2 (08:33→17:13)
[2018-03-28] MEDS: Calcium (Elemental) 500 MG Tablet 1000 MG PO (08:33)
[2018-03-28] MEDS: Ascorbic Acid 500 MG Tablet PO ×2 (08:33→17:13)
[2018-03-28] MEDS: hydroCHLOROthiazide 12.5mg 12.5 MG PO ×2 (08:33→20:05)
[2018-03-28] MEDS: Lisinopril 20 MG Tablet PO ×2 (08:34→20:05)
[2018-03-28] MEDS: Allopurinol 100 MG Tablet 200 MG PO (08:34)
[2018-03-28] MEDS: Senna/Docusate Sodium 1 Tablet 2 TABLET PO ×2 (08:34→20:05)
[2018-03-28] MEDS: oxyCODONE 5 MG Tablet PO ×3 (08:39→20:06)
[2018-03-28] MEDS: Acetaminophen 500 MG Tablet 1000 MG PO (17:13)
[2018-03-28 19:46] VITALS: BP 109/61; PULSE 77; RESP 16; TEMP 36.6; O2SAT 95
[2018-03-28 20:05] VITALS: PULSE 77; RESP 16
[2018-03-28] MEDS: MELATONIN 3 MG TABLET PO (20:06)
[2018-03-29] MEDS: Rivaroxaban 10 MG Tablet PO (05:41)
[2018-03-29] MEDS: oxyCODONE 5 MG Tablet PO ×2 (06:13→13:07)
[2018-03-29] MEDS: hydroCHLOROthiazide 12.5mg 12.5 MG PO ×2 (08:03→19:54)
[2018-03-29] MEDS: Ferrous Sulfate 325 MG Tablet PO ×2 (08:03→17:35)
[2018-03-29] MEDS: Allopurinol 100 MG Tablet 200 MG PO (08:04)
[2018-03-29] MEDS: Calcium (Elemental) 500 MG Tablet 1000 MG PO (08:04)
[2018-03-29] MEDS: Ascorbic Acid 500 MG Tablet PO ×2 (08:04→17:35)
[2018-03-29] MEDS: Lisinopril 20 MG Tablet PO ×2 (08:05→19:53)
[2018-03-29] MEDS: Pantoprazole Sodium 40 MG Tablet PO (08:05)
[2018-03-29 08:18] VITALS: BP 102/58; PULSE 74; RESP 16; TEMP 36.1; O2SAT 94
--- NOTE | 2018-03-29 11:42 | CASEMGMT ---
Team meeting held. Patient present as well as patient spouse. Patient approved until 04/07/18. No set discharge date at this time. Patient plans to discharge to home with spouse. Patient reporting to need a walker and platform attachment at time of discharge. Patient requesting for [employer] to be utilized for equipment needs. Patient to continue with further care and treatment on the Inpatient Rehab Unit with plan to re-team patient next week. Support given. Telephone call to Kim Ram. This social security specialist making referral for needed equipment mentioned above so as to ensure that equipment will be in by time of patient discharge. Orders and supportive documentation faxed. Will continue to follow. Surendra RESENDEZ, ANABELLA
--- NOTE | 2018-03-29 11:47 | PCM.PN.NEU ---
Subjective: No complaints. Tolerating therapies. No GI or complaints. Patient's is present, staffed in team meeting. With physical therapy he is standby assistance/min assistance and doing well with occupational therapy measures. No new issues from a nursing standpoint. Tentative plan is to discharge on the . The patient reports that he is not tolerating his OxyIR well and requests tramadol. Agrees to initiate tramadol 50 mg twice daily and if this is inadequate we can readdress. - Physical Exam General: Alert, Oriented x3, Cooperative, No apparent distress Neurological: Cranial nerves II-XII grossly intact Psych/Mental Status: Normal Affect, Alert and oriented to time, place, person, mood and affect Vital Signs Temp Pulse Resp BP Pulse Ox 36.1 C L 74 16 102/58 L 94 03/29/18 08:18 03/29/18 08:18 03/29/18 08:18 03/29/18 08:18 03/29/18 08:18 Oxygen Delivery Method Room Air Weight: 102 kg Body Mass Index (BMI) 33.5 Intake and Output for Last 24 Hours 03/27/18 03/28/18 03/29/18 23:59 23:59 23:59 Intake Total 660 / 660 260 / 260 Balance 660 / 660 260 / 260 Current Medications Generic Name Dose Route Start Last Admin Trade Name Freq PRN Reason Stop Dose Admin Acetaminophen 1,000 mg 03/22/18 15:28 03/28/18 17:13 Tylenol PO 1,000 mg Q8 PRN Administration PAIN Allopurinol 200 mg 03/23/18 10:00 03/29/18 08:04 Zyloprim PO 200 mg DAILY [facility] Administration Ascorbic Acid 500 mg 03/22/18 17:00 03/29/18 08:04 Vitamin C PO 500 mg BIDCM [facility] Administration Bisacodyl 10 mg 03/22/18 15:43 Dulcolax RECTAL .PRN X 1 PRN Constipation Calcium Carbonate 1,000 mg 03/23/18 08:00 03/29/18 08:04 Os-Elroy 500 PO 1,000 mg DAILY@0800 [facility] Administration Cholecalciferol 1,000 unit 03/23/18 10:00 03/29/18 08:06 Vitamin D PO 1,000 unit DAILY [facility] Administration Ferrous Sulfate 325 mg 03/22/18 17:00 03/29/18 08:03 [facility] Hydrochlorothiazide 12.5 mg 03/22/18 22:00 03/29/18 08:03 PO 12.5 mg BID [facility] Administration Lisinopril 20 mg 03/22/18 22:00 03/29/18 08:05 Zestril PO 20 mg BID [facility] Administration Lorazepam 0.5 mg 03/26/18 16:55 03/27/18 19:42 Ativan PO 0.5 mg QHS PRN PRN Administration Insomnia Magnesium Hydroxide 30 ml 03/22/18 15:43 03/24/18 14:20 Milk Of Magnesia PO 30 ml .PRN X 1 PRN Administration Constipation Melatonin 3 mg 03/22/18 23:56 03/28/18 20:06 Melatonin PO 3 mg QHS PRN Administration INSOMNIA Oxycodone HCl 5 - 10 mg 03/22/18 15:28 03/29/18 06:13 Oxyir PO 10 mg Q4H PRN PRN Administration PAIN Pantoprazole Sodium 40 mg 03/23/18 10:00 03/29/18 08:05 Protonix PO 40 mg DAILY [facility] Administration Rivaroxaban 10 mg 03/23/18 06:00 03/29/18 05:41 Xarelto PO 10 mg DAILY@0600 [facility] Administration Senna/Docusate Sodium 2 tablet 03/23/18 11:00 03/29/18 08:06 Senokot-S, Evette-Colace PO Not Given BID [facility] Medical Necessity - Tobacco Use Smoking Status: Never smoker Assessment/Plan All Active Problems Fracture of radial head, left, closed (Acute) Closed left hip fracture (Acute) Chest pain (Acute) Contusion of left hip (Acute) debility s/p mechanical fall with left hip fx/orif and nondisplaced left radial fx. goal of rehab is bahai of prior level of functional independence. pt for gait and balance ot for adls dvt prophylaxis: xarelto bowel protocol: currently constipated. 03/26: resolved prn analgesics: oxyir, consider adding duragesic. 03/23: Today his pain remains controlled. 03/26: stable. 03/29: Reports that he is not tolerating OxyIR and has requested tramadol. Risks of tramadol discussed and understood by the patient and , 50 mg twice daily initiated. htn: controlled. 03/26: stable jayson on BiPAP. 03/26: stable
--- NOTE | 2018-03-29 15:53 | CHAPLAIN ---
Type of Pastoral Visit ___ Initial Visit _x__ Follow-up Visit ___ On-call Visit ___ General Patient Visit ___ Spiritual Assessment ___ Family Conference ___ Bereavement ___ Rapid Response ___ Code Blue ___ Other (describe below) Pastoral Care Referral From _x__ Patient ___ Family ___ Nurse ___ Physician ___ Picking Table Worker ___ Gyroscopic Instrument Tester ___ Other (describe below) Sacrament/Intervention _x__ Active listening ___ Anointing ___ Alevism ___ Bereavement ___ Communion ___ Kim exploration ___ _x__ Life review _x__ Prayer ___ Reconciliation ___ Sacrament of Sick ___ Supportive presence ___ Wedding ___ Other (describe below) Pastoral Comments
[2018-03-29] MEDS: Acetaminophen 500 MG Tablet 1000 MG PO (17:36)
[2018-03-29 19:30] VITALS: BP 110/59; PULSE 76; RESP 16; TEMP 37.1; O2SAT 97
[2018-03-29] MEDS: Senna/Docusate Sodium 1 Tablet 2 TABLET PO (19:53)
[2018-03-29] MEDS: MELATONIN 3 MG TABLET PO (19:53)
--- NOTE | 2018-03-30 01:54 | NURSING ---
REVIEWED AND AGREE WITH REIMBURSEMENT SPECIALIST'S FIM AND HANDOFF CHARTING.
[2018-03-30] MEDS: Rivaroxaban 10 MG Tablet PO (05:15)
[2018-03-30] MEDS: oxyCODONE 5 MG Tablet PO ×2 (07:44→12:59)
[2018-03-30] MEDS: Ascorbic Acid 500 MG Tablet PO ×2 (07:46→17:11)
[2018-03-30] MEDS: Ferrous Sulfate 325 MG Tablet PO ×2 (07:46→17:11)
[2018-03-30] MEDS: Calcium (Elemental) 500 MG Tablet 1000 MG PO (07:46)
[2018-03-30 08:33] VITALS: PULSE 79; RESP 16; TEMP 36.4; O2SAT 95
[2018-03-30] MEDS: Allopurinol 100 MG Tablet 200 MG PO (09:54)
[2018-03-30] MEDS: Pantoprazole Sodium 40 MG Tablet PO (09:54)
--- NOTE | 2018-03-30 12:44 | PCM.PN.NEU ---
Subjective: New complaints. He has decided to continue on OxyIR and not take tramadol. He says his pain is controlled if he takes OxyIR in the morning and early afternoon and avoids it later in the day. He says his pain is controlled otherwise and he does not needed otherwise. He is sleeping well with melatonin. We discussed that he could take a higher dose of melatonin if needed. - Physical Exam General: Alert, Oriented x3, Cooperative, No apparent distress HEENT: PERRLA, EOMI Neurological: Cranial nerves II-XII grossly intact Psych/Mental Status: Normal Affect, Alert and oriented to time, place, person, mood and affect Vital Signs Temp Pulse Resp BP Pulse Ox 36.4 C L 79 16 110/59 L 95 03/30/18 08:33 03/30/18 08:33 03/30/18 08:33 03/29/18 19:30 03/30/18 08:33 Oxygen Delivery Method Room Air Weight: 102 kg Body Mass Index (BMI) 33.5 Intake and Output for Last 24 Hours 03/28/18 03/29/18 03/30/18 23:59 23:59 23:59 Intake Total 260 / 260 Balance 260 / 260 Current Medications Generic Name Dose Route Start Last Admin Trade Name Freq PRN Reason Stop Dose Admin Acetaminophen 1,000 mg 03/22/18 15:28 03/29/18 17:36 Tylenol PO 1,000 mg Q8 PRN Administration PAIN Allopurinol 200 mg 03/23/18 10:00 03/30/18 09:54 Zyloprim PO 200 mg DAILY [facility] Administration Ascorbic Acid 500 mg 03/22/18 17:00 03/30/18 07:46 Vitamin C PO 500 mg BIDCM [facility] Administration Bisacodyl 10 mg 03/22/18 15:43 Dulcolax RECTAL .PRN X 1 PRN Constipation Calcium Carbonate 1,000 mg 03/23/18 08:00 03/30/18 07:46 Os-Elroy 500 PO 1,000 mg DAILY@0800 [facility] Administration Cholecalciferol 1,000 unit 03/23/18 10:00 03/30/18 09:54 Vitamin D PO 1,000 unit DAILY [facility] Administration Ferrous Sulfate 325 mg 03/22/18 17:00 03/30/18 07:46 Ferrous Sulfate PO 325 mg BIDCM [facility] Administration Hydrochlorothiazide 12.5 mg 03/22/18 22:00 03/30/18 10:48 PO Not Given BID [facility] Lisinopril 20 mg 03/22/18 22:00 03/30/18 10:48 Zestril PO Not Given BID [facility] Lorazepam 0.5 mg 03/26/18 16:55 03/27/18 19:42 Ativan PO 0.5 mg QHS PRN PRN Administration Insomnia Magnesium Hydroxide 30 ml 03/22/18 15:43 03/24/18 14:20 Milk Of Magnesia PO 30 ml .PRN X 1 PRN Administration Constipation Melatonin 3 mg 03/22/18 23:56 03/29/18 19:53 Melatonin PO 3 mg QHS PRN Administration INSOMNIA Oxycodone HCl 5 - 10 mg 03/22/18 15:28 03/30/18 07:44 Oxyir PO 5 mg Q4H PRN PRN Administration PAIN Pantoprazole Sodium 40 mg 03/23/18 10:00 03/30/18 09:54 Protonix PO 40 mg DAILY [facility] Administration Rivaroxaban 10 mg 03/23/18 06:00 03/30/18 05:15 Xarelto PO 10 mg DAILY@0600 [facility] Administration Senna/Docusate Sodium 2 tablet 03/23/18 11:00 03/30/18 07:47 Senokot-S, Evette-Colace PO Not Given BID [facility] Medical Necessity - Tobacco Use Smoking Status: Never smoker Assessment/Plan All Active Problems Fracture of radial head, left, closed (Acute) Closed left hip fracture (Acute) Chest pain (Acute) Contusion of left hip (Acute) debility s/p mechanical fall with left hip fx/orif and nondisplaced left radial fx. goal of rehab is jewish of prior level of functional independence. pt for gait and balance ot for adls dvt prophylaxis: xarelto bowel protocol: currently constipated. 03/26: resolved prn analgesics: oxyir, consider adding duragesic. 03/23: Today his pain remains controlled. 03/26: stable. 03/29: Reports that he is not tolerating OxyIR and has requested tramadol. Risks of tramadol discussed and understood by the patient and , 50 mg twice daily initiated. 03/30: Patient has chosen to remain with OxyIR he says his pain is controlled and he is sleeping better if he does not take the OxyIR after early afternoon. htn: controlled. 03/26: stable jayson on BiPAP. 03/26: stable Insomnia: Melatonin 3 mg. 1-3 as needed nightly
--- NOTE | 2018-03-30 14:36 | NURSING ---
This nurse spoke to Dr. Cantu nurse and orders received for repeat xrays and staple removal.
[2018-03-30] MEDS: Acetaminophen 500 MG Tablet 1000 MG PO (17:13)
--- NOTE | 2018-03-30 18:48 | PN_ITS ---
Subjective: Patient was seen and examined. Doing well with therapy. Denies chest pain, dizziness, palpitations. Vitals/I&O's: Vital Signs Temp Pulse Resp BP Pulse Ox 97.5 F L 79 16 110/59 L 95 03/30/18 08:33 03/30/18 08:33 03/30/18 08:33 03/29/18 19:30 03/30/18 08:33 Oxygen Delivery Method Room Air Weight: 102 kg Body Mass Index (BMI) 33.5 Intake and Output for Last 24 Hours 03/28/18 03/29/18 03/30/18 23:59 23:59 23:59 Intake Total 260 / 260 Balance 260 / 260 General: Alert, Oriented x3, Cooperative, No apparent distress HEENT: Atraumatic, PERRLA, EOMI, Normocephalic Oral: Moist Mucosa Neck: Supple Lungs: Clear to auscultation, Normal air movement Cardiovascular: Regular rate, Regular Rhythm, Normal S1, Normal S2, No murmurs Abdomen: Bowel Sounds Present, Soft, Non Tender, Non-Distended, No Hepato- splenomegaly Extremities: No edema, - - left upper extremity in partial cast and sling Skin: No rashes, No breakdown Musculoskeletal: No Tenderness to Palpation of Joints or Extremities Neurological: Cranial nerves II-XII grossly intact Psych/Mental Status: Normal Affect, Appropriate Current Medications Acetaminophen (Tylenol) 1,000 mg PO Q8 PRN PRN Reason: PAIN Last Admin: 03/30/18 17:13 Dose: 1,000 mg Allopurinol (Zyloprim) 200 mg PO DAILY [facility] Last Admin: 03/30/18 09:54 Dose: 200 mg [facility] Last Admin: 03/30/18 17:11 Dose: 500 mg Bisacodyl (Dulcolax) 10 mg RECTAL .PRN X 1 PRN PRN Reason: Constipation Calcium Carbonate (Os-Elroy 500) 1,000 mg PO DAILY@0800 [facility] Last Admin: 03/30/18 07:46 Dose: 1,000 mg Cholecalciferol (Vitamin D) 1,000 unit PO DAILY [facility] Last Admin: 03/30/18 09:54 Dose: 1,000 unit Ferrous Sulfate (Ferrous Sulfate) 325 mg PO BIDCM [facility] Last Admin: 03/30/18 17:11 Dose: 325 mg Hydrochlorothiazide () 12.5 mg PO BID [facility] Last Admin: 03/30/18 10:48 Dose: Not Given Lisinopril (Zestril) 20 mg PO BID [facility] Last Admin: 03/30/18 10:48 Dose: Not Given Lorazepam (Ativan) 0.5 mg PO QHS PRN PRN PRN Reason: Insomnia Last Admin: 03/27/18 19:42 Dose: 0.5 mg Magnesium Hydroxide (Milk Of Magnesia) 30 ml PO .PRN X 1 PRN PRN Reason: Constipation Last Admin: 03/24/18 14:20 Dose: 30 ml Melatonin (Melatonin) 3 - 9 mg PO QHS PRN PRN Reason: INSOMNIA Oxycodone HCl (Oxyir) 5 - 10 mg PO Q4H PRN PRN PRN Reason: PAIN Last Admin: 03/30/18 12:59 Dose: 5 mg Pantoprazole Sodium (Protonix) 40 mg PO DAILY [facility] Last Admin: 03/30/18 09:54 Dose: 40 mg Rivaroxaban (Xarelto) 10 mg PO DAILY@0600 [facility] Last Admin: 03/30/18 05:15 Dose: 10 mg Senna/Docusate Sodium (Senokot-S, Evette-Colace) 2 tablet PO BID [facility] Last Admin: 03/30/18 07:47 Dose: Not Given Medical Necessity - Tobacco Use Smoking Status: Never smoker Assessment/Plan All Active Problems Fracture of radial head, left, closed (Acute) Closed left hip fracture (Acute) Chest pain (Acute) Contusion of left hip (Acute) 67-year-old male with past medical history of hypertension, GERD admitted with debilty s/p left hip repair. 1. Debility secondary to recent left hip repair s/p fall, therapy is going well, pain is controlled. 2. Left radial head fracture, in splint, nonweightbearing with a hand and elbow, follow-up with orthopedics is planned 3. Anemia, post-op , stable, on po iron 4. Hypertension, stable 5. DVT prophylaxis with Xarelto Code Visit Inpatient E&M: 26405 Subs Hosp L2
[2018-03-30] MEDS: Lisinopril 20 MG Tablet PO (20:49)
[2018-03-30] MEDS: hydroCHLOROthiazide 12.5mg 12.5 MG PO (20:49)
[2018-03-30 20:50] VITALS: BP 102/70; PULSE 73; RESP 16; TEMP 37.1; O2SAT 97
[2018-03-30] MEDS: MELATONIN 3 MG TABLET PO (20:50)
--- NOTE | 2018-03-31 01:33 | NURSING ---
REVIEWED AND AGREE WITH BRIDGE CREW MEMBER'S FIM AND HANDOFF CHARTING.
[2018-03-31] MEDS: Rivaroxaban 10 MG Tablet PO (06:13)
[2018-03-31] MEDS: oxyCODONE 5 MG Tablet PO ×2 (06:13→13:22)
[2018-03-31] MEDS: Allopurinol 100 MG Tablet 200 MG PO (07:43)
[2018-03-31] MEDS: hydroCHLOROthiazide 12.5mg 12.5 MG PO ×2 (07:44→21:38)
[2018-03-31] MEDS: Pantoprazole Sodium 40 MG Tablet PO (07:44)
[2018-03-31] MEDS: Calcium (Elemental) 500 MG Tablet 1000 MG PO (07:44)
[2018-03-31] MEDS: Ferrous Sulfate 325 MG Tablet PO ×2 (07:44→18:38)
[2018-03-31] MEDS: Ascorbic Acid 500 MG Tablet PO ×2 (07:44→18:38)
[2018-03-31] MEDS: Lisinopril 20 MG Tablet PO ×2 (07:45→21:38)
[2018-03-31] MEDS: Senna/Docusate Sodium 1 Tablet 2 TABLET PO ×2 (07:46→21:38)
[2018-03-31 09:00] VITALS: BP 104/59; PULSE 84; RESP 16; TEMP 36.4; O2SAT 97
[2018-03-31] MEDS: Acetaminophen 500 MG Tablet 1000 MG PO (18:38)
[2018-03-31 18:43] VITALS: BP 126/68; PULSE 84; RESP 16; TEMP 36.8; O2SAT 98
[2018-03-31 20:04] VITALS: PULSE 84; RESP 16; O2SAT 98
[2018-03-31] MEDS: MELATONIN 3 MG TABLET PO (21:39)
[2018-04-01] MEDS: oxyCODONE 5 MG Tablet PO ×2 (06:42→12:13)
[2018-04-01] MEDS: Rivaroxaban 10 MG Tablet PO (06:42)
[2018-04-01 07:22] VITALS: BP 101/61; PULSE 75; RESP 18; TEMP 36.6; O2SAT 98
[2018-04-01] MEDS: Pantoprazole Sodium 40 MG Tablet PO (07:28)
[2018-04-01] MEDS: Ferrous Sulfate 325 MG Tablet PO ×2 (07:28→16:53)
[2018-04-01] MEDS: hydroCHLOROthiazide 12.5mg 12.5 MG PO ×2 (07:28→19:45)
[2018-04-01] MEDS: Calcium (Elemental) 500 MG Tablet 1000 MG PO (07:28)
[2018-04-01] MEDS: Senna/Docusate Sodium 1 Tablet 2 TABLET PO (07:28)
[2018-04-01] MEDS: Lisinopril 20 MG Tablet PO ×2 (07:28→19:46)
[2018-04-01] MEDS: Ascorbic Acid 500 MG Tablet PO ×2 (07:28→16:53)
[2018-04-01] MEDS: Allopurinol 100 MG Tablet 200 MG PO (07:28)
--- NOTE | 2018-04-01 11:41 | CASEMGMT ---
Addendum entered by Saira Perea 04/01/18 12:07: Reviewed and approved social work student documentation. Note: [facility] to contact patient to set up physical therapy appointment and patient is aware of this. Patient sposue plans to provide transportation home for patient at time of discharge. [facility] psychosocial [facility] as patient is now reporting to have gotten equipment by another means per patient choice. Surendra Perea SIGNAL MAINTAINER HELPER, WORD PROCESSOR Original Note: Social Work Patient voiced he wanted to discharge home with 04/04/2018. Team is agreeable to discharge date. Team is recommending a walker and attachable arm platform and outpatient physical therapy. Patient stated that his has obtained both a walker and attachable arm platform. Social work student spoke with patient about outpatient therapy at [facility]. Faxed paper work to [facility] to set up outpatient physical therapy. Discharge date: 04/04/2018 Discharge plan: Home with [place] social work student
[2018-04-01] MEDS: Acetaminophen 500 MG Tablet 1000 MG PO (19:46)
[2018-04-01] MEDS: MELATONIN 3 MG TABLET PO (19:46)
[2018-04-01 20:11] VITALS: BP 127/58; PULSE 83; RESP 16; TEMP 36.7; O2SAT 99
--- NOTE | 2018-04-02 04:40 | NURSING ---
Reviewed and agree with TIMBER SIZER OPERATOR documentation and FIMs charting.
[2018-04-02] MEDS: Rivaroxaban 10 MG Tablet PO (06:33)
[2018-04-02] MEDS: Ferrous Sulfate 325 MG Tablet PO ×2 (07:58→18:20)
[2018-04-02] MEDS: Calcium (Elemental) 500 MG Tablet 1000 MG PO (07:58)
[2018-04-02] MEDS: Senna/Docusate Sodium 1 Tablet 2 TABLET PO ×2 (07:58→20:36)
[2018-04-02] MEDS: Pantoprazole Sodium 40 MG Tablet PO (07:58)
[2018-04-02] MEDS: Ascorbic Acid 500 MG Tablet PO ×2 (07:58→18:20)
[2018-04-02] MEDS: Allopurinol 100 MG Tablet 200 MG PO (07:59)
[2018-04-02] MEDS: oxyCODONE 5 MG Tablet PO ×2 (08:03→12:56)
[2018-04-02 08:13] VITALS: BP 95/68; PULSE 95; RESP 18; TEMP 36.6; O2SAT 91
--- NOTE | 2018-04-02 08:47 | NURSING ---
removed 12 mohit from L. hip, no bleeding, no infection noted, area clean, dry, intact, pt tolerated well.
--- NOTE | 2018-04-02 08:50 | RAD_ITS ---
STUDY: X-RAY - LEFT ELBOW REASON FOR EXAM: Male, 67 years old. Injury, radial head fracture follow-up TECHNIQUE: 3 view(s) of the elbow. COMPARISON: 03/19/2018 FINDINGS: Splint material obscures underlying bony detail. Partial healing of radial head fracture better seen on the prior study with mild residual depression. Normal radiocapitellar and ulnotrochlear articulations. The soft tissue structures are unremarkable. RAD/Elbow min 3 Views IMPRESSION: 1. Stable alignment of radial head fracture with partial healing. Electronically Signed: Abel Crawley MD at 14:36 EST , Service support ,
--- NOTE | 2018-04-02 08:50 | RAD_ITS ---
STUDY: X-RAY - LEFT HIP REASON FOR EXAM: Male, 67 years old. Left IT fracture fixation 2 weeks ago, follow-up TECHNIQUE: 2 views of the hip. AP pelvis. COMPARISON: 03/20/2018 FINDINGS: Femoral medullary radha stable in alignment with femoral neck fixation screws. Similar displacement of lesser trochanter. Intratrochanteric fracture has a similar appearance. There is cortical sclerosis with subcortical cyst formation of the acetabulum. There is mild articular joint space narrowing. Pelvic ring is intact without evidence of sacroiliac or pubic symphysis diastases. Circumferential narrowing of the right hip joint is identified with small subchondral cysts. RAD/HIP, UNI W/ Pelvis 2-3 Views IMPRESSION: Stable alignment of left IT fracture following orthopedic fixation. Electronically Signed: Abel Crawley MD at 14:38 EST , Service support ,
--- NOTE | 2018-04-02 11:55 | DCINST_ITS ---
- Discharge Diagnoses Current Active Problems: Debility due to left hip fracture, open reduction and internal fixation and closed fracture of the left radius You will use the following diet at home:: No restrictions, Regular Your food should be the consistency of: Regular Your liquids should be the consistency of: Regular/Thin Discharge Activity: Return to Normal Activity, May Not Drive, Use Walker Weight Bearing Status: Weight bearing as tolerated Lifting Restrictions: 10 pounds Call your doctor if your incision/area has: Increased Pain/ Swelling Call your doctor if you observe: Coldness, Increased Pain Allergies/Adverse Reactions: Allergies Egg Derived Allergy (Verified 03/21/18 07:16) Food Allergy Penicillins Allergy (Verified 12/13/17 14:05) Anaphylaxis Milk Containing Products Adverse Reaction (Verified 03/20/18 21:18) Diarrhea STEROIDS Adverse Reaction (Uncoded 12/13/17 14:06) Shortness of breath Medications to take at Discharge Allopurinol [Zyloprim] 200 mg PO DAILY 12/13/17 Omeprazole 40 mg PO DAILY 03/19/18 Acetaminophen [Tylenol] 1,000 mg PO Q8 PRN #90 tablet 03/22/18 Ascorbic Acid [Vitamin C] 500 mg PO BIDCM 03/22/18 Calcium (Elemental) [Os-Elroy 500] 1,000 mg PO DAILY@0800 03/22/18 Cholecalciferol (VIT D3) [Vitamin D3] 1,000 unit PO DAILY 03/22/18 Ensure Enlive 120 ml PO TID 03/22/18 Ferrous Sulfate 325 mg PO BID 03/22/18 Senna/Docusate Sodium [Senokot-S] 2 tablet PO BID PRN PRN #60 tablet 03/22/18 Lisinopril [Zestril] 10 mg PO BID #60 tab 04/02/18 Melatonin 3 - 9 mg PO QHS PRN tablet 04/02/18 Oxycodone [Oxyir] 5 - 10 mg PO Q4H PRN PRN 7 Days #14 tab 04/02/18 The following prescriptions were given: Oxycodone [Oxyir] 5 - 10 mg PO Q4H PRN PRN 7 Days #14 tab PRN Reason: Pain Lisinopril [Zestril] 10 mg PO BID #60 tab Primary Care Physician: Arnaldo Casiano MD [Primary Care Provider] - Test Results: Test results from this visit will be discussed in further detail at your follow- up appointment, if applicable. Proposed Discharge Date: 04/04/18
--- NOTE | 2018-04-02 12:00 | DS.PCM_ITS ---
Rehab Discharge Summary DATE OF ADMISSION: 03/22/18 DATE OF DISCHARGE: 04/04/18 - Rehab Diagnosis Cele Santana is a 67-year-old previously healthy male, who slipped on ice and suffered a fracture of his left hip and his left radius. He was admitted to the hospital and a open reduction internal fixation was performed of his left hip and his left elbow was treated conservatively. He was then admitted to the rehab unit for further rehabilitation in order to return home. He was comp letely functionally independent at home. His rehab stay was unremarkable. His pain was controlled with Oxyir. He improved to the extent that he could be discharged home at a level of walker and in the care of his . - Physical Exam General: Alert, Oriented x3, Cooperative HEENT: Atraumatic, PERRLA, EOMI, Normocephalic Neck: Supple, No JVD, Negative Carotid Bruits Lungs: Clear to auscultation, Normal air movement Cardiovascular: Regular rate, No murmurs Abdomen: Bowel Sounds Present, Soft, Non Tender Extremities: No edema, Capillary Refill Less than 3 Seconds Skin: No rashes, No breakdown Musculoskeletal: No Tenderness to Palpation of Joints or Extremities Neurological: Cranial nerves II-XII grossly intact Psych/Mental Status: Normal Affect, Appropriate Vital Signs Temp Pulse Resp BP Pulse Ox 36.6 C 95 18 95/68 91 04/02/18 08:13 04/02/18 08:13 04/02/18 08:13 04/02/18 08:13 04/02/18 08:13 Oxygen Delivery Method Room Air Weight: 98.9 kg Body Mass Index (BMI) 33.5 Intake and Output for Last 24 Hours 03/31/18 04/01/18 04/02/18 23:59 23:59 23:59 Intake Total 960 / 960 1120 / 1120 360 / 360 Balance 960 / 960 1120 / 1120 360 / 360 Discharge Diet: No Restrictions Discharge Activity: Return to Normal Activity, May Not Drive, Use Walker Weight Bearing Status: Weight bearing as tolerated Lifting Restrict to (lbs):: 10 Call your doctor if your incision/area has: Increased Pain/ Swelling Call your doctor if you observe: Coldness, Increased Pain Home Medications: Medications to take at Discharge Allopurinol [Zyloprim] 200 mg PO DAILY 12/13/17 Omeprazole 40 mg PO DAILY 03/19/18 Acetaminophen [Tylenol] 1,000 mg PO Q8 PRN #90 tablet 03/22/18 Ascorbic Acid [Vitamin C] 500 mg PO BIDCM 03/22/18 Calcium (Elemental) [Os-Elroy 500] 1,000 mg PO DAILY@0800 03/22/18 Cholecalciferol (VIT D3) [Vitamin D3] 1,000 unit PO DAILY 03/22/18 Ensure Enlive 120 ml PO TID 03/22/18 Ferrous Sulfate 325 mg PO BID 03/22/18 Senna/Docusate Sodium [Senokot-S] 2 tablet PO BID PRN PRN #60 tablet 03/22/18 Lisinopril [Zestril] 10 mg PO BID #60 tab 04/02/18 Melatonin 3 - 9 mg PO QHS PRN tablet 04/02/18 Oxycodone [Oxyir] 5 - 10 mg PO Q4H PRN PRN 7 Days #14 tab 04/02/18 Following Prescrptions Were Given to Patient: Oxycodone [Oxyir] 5 - 10 mg PO Q4H PRN PRN 7 Days #14 tab PRN Reason: Pain Lisinopril [Zestril] 10 mg PO BID #60 tab Primary Care Physician: Arnaldo Casiano MD [Primary Care Provider] - Disposition: Home Minutes spent on discharge:: 40 Patient Condition:: Good Rehab Course 67-year-old male admitted to the rehab unit after brief hospitalization after he slipped and fell on the ice suffering a left hip fracture as well as a left radius fracture. His hip was treated with open reduction internal fixation p erformed by Dr. Salvador. His hospitalization was on eventful. He is previously functionally independent and was admitted to the rehab unit for further convalescence that he could return home. His rehab course was uneventful. Improved and was discharged home at walker level with assistance from his . He was instructed to follow-up with Dr. Salvador as well as his primary care physician. Meaningful Use Info Meaningful Use Diagnoses (Choose all that apply): None applicable
[2018-04-02] MEDS: Lisinopril 10 MG Tablet PO (12:56)
[2018-04-02 12:58] VITALS: BP 107/57; PULSE 91
--- NOTE | 2018-04-02 14:35 | PCM.PN.HOSP ---
Subjective: Patient was seen and examined. He denied any new complains. BP are running low. Denies dizziness, SOB, chest pain Objective: General: Alert, Oriented x3, Cooperative, No apparent distress HEENT: Atraumatic, PERRLA, EOMI, Normocephalic Oral: Moist Mucosa Neck: Supple Lungs: Clear to auscultation, Normal air movement Cardiovascular: Regular rate, Regular Rhythm, Normal S1, Normal S2, No murmurs Abdomen: Bowel Sounds Present, Soft, Non Tender, Non-Distended, No Hepato-splenomegaly Extremities: No edema, - - left upper extremity in partial cast and sling Skin: No rashes, No breakdown Musculoskeletal: No Tenderness to Palpation of Joints or Extremities Neurological: Cranial nerves II-XII grossly intact Psych/Mental Status: Normal Affect, Appropriate Vitals/I&O's: Vital Signs Temp Pulse Resp BP Pulse Ox 98 F 91 18 107/57 L 91 04/02/18 08:13 04/02/18 12:58 04/02/18 08:13 04/02/18 12:58 04/02/18 08:13 Oxygen Delivery Method Room Air Weight: 98.9 kg Body Mass Index (BMI) 33.5 Intake and Output for Last 24 Hours 03/31/18 04/01/18 04/02/18 23:59 23:59 23:59 Intake Total 960 / 960 1120 / 1120 360 / 360 Balance 960 / 960 1120 / 1120 360 / 360 Current Medications Acetaminophen (Tylenol) 1,000 mg PO Q8 PRN PRN Reason: PAIN Last Admin: 04/01/18 19:46 Dose: 1,000 mg Allopurinol (Zyloprim) 200 mg PO DAILY [facility] Last Admin: 04/02/18 07:59 Dose: 200 mg Ascorbic Acid (Vitamin C) 500 mg PO BIDCM [facility] Last Admin: 04/02/18 07:58 Dose: 500 mg Bisacodyl (Dulcolax) 10 mg RECTAL .PRN X 1 PRN PRN Reason: Constipation Calcium Carbonate (Os-Elroy 500) 1,000 mg PO DAILY@0800 [facility] Last Admin: 04/02/18 07:58 Dose: 1,000 mg Cholecalciferol (Vitamin D) 1,000 unit PO DAILY [facility] Last Admin: 04/02/18 07:58 Dose: 1,000 unit [facility]ous S[facility] S[facility] Admin: 04/02/18 07:58 Dose: 325 mg Lisinopril (Zestril) 10 mg PO BID [facility] Last Admin: 04/02/18 12:56 Dose: 10 mg Lorazepam (Ativan) 0.5 mg PO QHS PRN PRN PRN Reason: Insomnia Last Admin: 03/27/18 19:42 Dose: 0.5 mg Magnesium Hydroxide (Milk Of Magnesia) 30 ml PO .PRN X 1 PRN PRN Reason: Constipation Last Admin: 03/24/18 14:20 Dose: 30 ml Melatonin (Melatonin) 3 - 9 mg PO QHS PRN PRN Reason: INSOMNIA Last Admin: 04/01/18 19:46 Dose: 3 mg Oxycodone HCl (Oxyir) 5 - 10 mg PO Q4H PRN PRN PRN Reason: PAIN Last Admin: 04/02/18 12:56 Dose: 5 mg Pantoprazole Sodium (Protonix) 40 mg PO DAILY [facility] Last Admin: 04/02/18 07:58 Dose: 40 mg Rivaroxaban (Xarelto) 10 mg PO DAILY@0600 [facility] Last Admin: 04/02/18 06:33 Dose: 10 mg Senna/Docusate Sodium (Senokot-S, Evette-Colace) 2 tablet PO BID [facility] Last Admin: 04/02/18 07:58 Dose: 2 tablet Medical Necessity - Tobacco Use Smoking Status: Never smoker Assessment/Plan All Active Problems Fracture of radial head, left, closed (Acute) Closed left hip fracture (Acute) Chest pain (Acute) Contusion of left hip (Acute) 67-year-old male with past medical history of hypertension, GERD admitted with debilty s/p left hip repair. 1. Debility secondary to recent left hip repair s/p fall, therapy is going well, pain is controlled. 2. Left radial head fracture, in splint, nonweightbearing with a hand and elbow, follow-up with orthopedics is planned 3. Anemia, post-op , stable, on po iron 4. Hypertension, relatively low, will dc HCTZ, continue on Lisinopril, continue to monitor BP 5. DVT prophylaxis with Xarelto Code Visit Inpatient E&M: [id number] [facility] [place] [facility] L2
[2018-04-02 18:16] VITALS: BP 92/50; PULSE 88; RESP 16; TEMP 36.4; O2SAT 98
[2018-04-02] MEDS: Acetaminophen 500 MG Tablet 1000 MG PO (18:22)
[2018-04-02] MEDS: MELATONIN 3 MG TABLET PO (20:36)
[2018-04-02 20:38] VITALS: BP 86/49; PULSE 75
[2018-04-03] MEDS: oxyCODONE 5 MG Tablet PO ×2 (06:39→13:08)
[2018-04-03] MEDS: Rivaroxaban 10 MG Tablet PO (06:39)
[2018-04-03 07:00] VITALS: BP 99/68; PULSE 72; RESP 18; TEMP 36.6; O2SAT 98
[2018-04-03] MEDS: Lisinopril 10 MG Tablet PO ×2 (07:38→20:48)
[2018-04-03] MEDS: Senna/Docusate Sodium 1 Tablet 2 TABLET PO ×2 (07:38→20:48)
[2018-04-03] MEDS: Allopurinol 100 MG Tablet 200 MG PO (07:38)
[2018-04-03] MEDS: Ascorbic Acid 500 MG Tablet PO ×2 (07:39→16:55)
[2018-04-03] MEDS: Calcium (Elemental) 500 MG Tablet 1000 MG PO (07:39)
[2018-04-03] MEDS: Pantoprazole Sodium 40 MG Tablet PO (07:39)
[2018-04-03] MEDS: Ferrous Sulfate 325 MG Tablet PO ×2 (07:39→16:55)
[2018-04-03] MEDS: Acetaminophen 500 MG Tablet 1000 MG PO (18:41)
[2018-04-03 20:46] VITALS: BP 116/60; PULSE 84; RESP 16; TEMP 36.6; O2SAT 96
[2018-04-03] MEDS: MELATONIN 3 MG TABLET PO (20:48)
[2018-04-04] MEDS: Rivaroxaban 10 MG Tablet PO (06:33)
[2018-04-04] MEDS: oxyCODONE 5 MG Tablet PO (06:33)
[2018-04-04 07:21] VITALS: PULSE 69; RESP 16; TEMP 36.9; O2SAT 95
[2018-04-04 07:24] VITALS: BP 98/59
[2018-04-04] MEDS: Senna/Docusate Sodium 1 Tablet 2 TABLET PO (07:36)
[2018-04-04] MEDS: Lisinopril 10 MG Tablet PO (07:36)
[2018-04-04] MEDS: Ferrous Sulfate 325 MG Tablet PO (07:36)
[2018-04-04] MEDS: Calcium (Elemental) 500 MG Tablet 1000 MG PO (07:36)
[2018-04-04] MEDS: Ascorbic Acid 500 MG Tablet PO (07:36)
[2018-04-04] MEDS: Pantoprazole Sodium 40 MG Tablet PO (07:36)
[2018-04-04] MEDS: Acetaminophen 500 MG Tablet 1000 MG PO (09:21)
--- NOTE | 2018-04-04 09:31 | NURSING ---
patient and verbalized understanding of discharge instructions.
--- NOTE | 2018-04-04 09:44 | NURSING ---
patient discharged home with spouse at this time. denied any further questions.
== END 2018-04-04 09:45 | disposition home or self-care (01) | DRG 561 ==
PROVIDERS: Admitting Provider Psychiatry & Neurology Neurology; Family Provider Family Medicine; PCP Family Medicine; Referring Provider Psychiatry & Neurology Neurology; Visit Provider Internal Medicine
DX: S72.145D Nondisplaced intertrochanteric fracture of left femur, subsequent encounter for closed fracture with routine healing (principal); S52.122D Displaced fracture of head of left radius, subsequent encounter for closed fracture with routine healing; W00.0XXD Fall on same level due to ice and snow, subsequent encounter; I10 Essential (primary) hypertension; K21.9 Gastro-esophageal reflux disease without esophagitis; G47.33 Obstructive sleep apnea (adult) (pediatric); D64.9 Anemia, unspecified
CPT/HCPCS: 36415; 73080; 73502; 80048; 85027; 97110; 97116; 97162; 97166; 97530; 97535

== ENCOUNTER → 2018-05-18 | Outpatient (CLI) | payer MEDICARE, OTHER, SELFPAY ==
[2018-03-22 15:52] VITALS: BMI 33.5
== END | disposition home or self-care (01) ==
LOC: LABSPEC 10:41
PROVIDERS: Family Provider Family Medicine; PCP Family Medicine; Referring Provider Family Medicine; Visit Provider Family Medicine
DX: N30.90 Cystitis, unspecified without hematuria (principal)
CPT/HCPCS: 87077; 87086; 87088

== ENCOUNTER → 2018-06-10 | Outpatient (CLI) | payer MEDICARE, OTHER, SELFPAY ==
[2018-03-22 15:52] VITALS: BMI 33.5
--- NOTE | 2018-06-10 08:57 | BD_ITS ---
STUDY: DUAL ENERGY X-RAY ABSORPTIOMETRY / DXA REASON FOR EXAM: Male, 67 years old. Recent left hip fracture. Loss of height. TECHNIQUE: Bone Mineral Density (BMD) measurements of lumbar spine and right hip were obtained. COMPARISON: None. FINDINGS: Lumbar Spine (L1-L4): g/cm2 (0.904) / T-score (-2.8) / Z-score (-2.3) Findings are suggestive of osteoporosis with a high fracture risk. Right Femur Total: g/cm2 (0.792) / T-score (-2.1) / Z-score (-1.5) Right Femoral Neck: g/cm2 (0.749) / T-score (-2.5) / Z-score (-1.3) BD/Dexa Bone Density Study IMPRESSION: The patient is considered osteoporotic as outlined below according to World Hussein Organization (WHO) criteria with a high fracture risk. Reference Information: The T-score is the number of standard deviations above or below the standard which is normal for young adults at their peak bone mineral density. The World Health Organization (WHO) interprets the T-scores as follows: Above -1 Normal bone density Between -1 and -2.5 Osteopenia Equal to / or below -2.5 Osteoporosis As a practical clinical guideline, osteopenia may be graded as follows: Mild -1 through -1.5 Moderate -1.6 through -2.0 Severe -2.1 through -2.4 The Z-score is the number of standard deviations above or below age-matched controls. A Z-score of less than -1.5 would be considered abnormal. References: 1. NIH Osteoporosis and Related Bone Diseases http://www.osteo.org 2. International Society for Clinical Densitometry http://www.iscd.org 3. National Osteoporosis Foundation http://www.nof.org Electronically Signed: Shimon Alcazar, at 14:39 EDT , Service support ,
== END | disposition home or self-care (01) ==
PROVIDERS: Family Provider Family Medicine; PCP Family Medicine; Referring Provider Family Medicine; Visit Provider Family Medicine
DX: M80.00XA Age-related osteoporosis with current pathological fracture, unspecified site, initial encounter for fracture (principal); S72.142D Displaced intertrochanteric fracture of left femur, subsequent encounter for closed fracture with routine healing; S52.122D Displaced fracture of head of left radius, subsequent encounter for closed fracture with routine healing
CPT/HCPCS: 77080

== ENCOUNTER → 2019-03-17 08:31 | Outpatient (CLI) | payer MEDICARE, OTHER, SELFPAY ==
[2018-09-03 10:29] VITALS: BMI 31.4
[2019-03-17 10:23] LABS: Absolute Lymphocyte Count 0.95 X10^3/uL (0.83-4.51); Absolute Neutrophil Count 2.4 X10^3/uL (2.0-7.7); Basophil# 0.02 X10^3/uL; Basophil% 0.5 % (0-1); Eosinophil# 0.08 X10^3/uL; Eosinophils% 2.1 % (0-5); Hematocrit 37.7 % (40-54); Hemoglobin 12.7 g/dL (13.0-16.5); Lymphocyte # 0.95 X10^3/ul (4.0); Lymphocyte % 24.6 % (19-41); Mean Corp Hgb Conc 33.7 g/dL (32-36); Mean Corpuscular Hgb 32.2 pg (27.0-32.0); Mean Corpuscular Volume 95.7 fL (80-94); Mean Platelet Vol. 9.8 fl (6.2-12.0); Monocyte# 0.36 X10^3/uL; Monocyte% 9.3 % (0-10); NRBC Flagged by Analyzer 0 % (0-5); Neutrophil # 2.44 X10^3/uL (2.7-7.7); Neutrophil % 63.2 % (47-70); Platelet Count 169 K/mm3 (150-450); RBC Distribution Width CV 13.6 % (11.6-14.6); RBC Distribution Width SD 47.8 fl (35.1-43.9); Red Blood Count 3.94 M/mm3 (4.6-6.2); White Blood Count 3.9 K/mm3 (4.4-11.0)
[2019-03-17 10:50] LABS: ALB/GLOB Ratio 1.3 RATIO (0.9-2.4); AST(SGOT) 19 U/L (15-37); Alanine Aminotransfer ALT/SGPT 31 U/L (16-61); Albumin, Serum 3.9 g/dL (3.2-5.0); Alkaline Phosphatase 75 U/L (45-117); Anion Gap 4 (5-15); BUN 16 mg/dL (7-18); BUN/Creat Ratio 15.2 RATIO (10-20); Calcium,Total 9.3 mg/dL (8.5-10.1); Chloride 104 mmol/L (98-107); Creatinine, Serum 1.05 mg/dL (0.70-1.30); EST Glomerular Filtration Rate 75 mL/min (>60); Est Glom Filt Rate - Afr Amer 90 mL/min (>60); Glucose 106 mg/dL (74-106); Magnesium 2.1 mg/dL (1.6-2.6); Potassium 3.7 mmol/L (3.5-5.1); Protein, Total 6.9 g/dL (6.4-8.2); Sodium Level 137 mmol/L (136-145)
== END ==
PROVIDERS: PCP Family Medicine; Referring Provider Family Medicine; Visit Provider Family Medicine
DX: G43.909 Migraine, unspecified, not intractable, without status migrainosus (principal); I10 Essential (primary) hypertension
CPT/HCPCS: 36415; 80053; 83735; 85025

== ENCOUNTER → 2019-09-15 08:47 | Outpatient (CLI) | payer MEDICARE, OTHER, SELFPAY ==
[2018-09-03 10:29] VITALS: BMI 31.4
[2019-09-15 10:48] LABS: PTHIN 55.9 pg/mL (18.4-80.1)
[2019-09-15 10:55] LABS: ALB/GLOB Ratio 1.3 RATIO (0.9-2.4); AST(SGOT) 24 U/L (15-37); Alanine Aminotransfer ALT/SGPT 39 U/L (16-61); Albumin, Serum 3.7 g/dL (3.2-5.0); Alkaline Phosphatase 79 U/L (45-117); Anion Gap 5 (5-15); BUN 13 mg/dL (7-18); BUN/Creat Ratio 12.3 RATIO (10-20); Calcium,Total 8.9 mg/dL (8.5-10.1); Chloride 103 mmol/L (98-107); Cholesterol 217 mg/dL (200); Creatinine, Serum 1.06 mg/dL (0.70-1.30); EST Glomerular Filtration Rate 74 mL/min (>60); Est Glom Filt Rate - Afr Amer 89 mL/min (>60); Globulin 2.9 g/dL (2.2-4.2); Glucose 119 mg/dL (74-106); High Density Lipoprotein 36 mg/dL; Magnesium 2.4 mg/dL (1.6-2.6); Potassium 3.9 mmol/L (3.5-5.1); Protein, Total 6.6 g/dL (6.4-8.2); Sodium Level 138 mmol/L (136-145); Thyroid Stim Hormone (TSH) 2.22 uIU/mL (0.358-3.74); Triglycerides 296 mg/dL; Very Low Density Lipoprotein 59 mg/dL (5-40)
[2019-09-15 11:23] LABS: Vitamin D,25 Hydroxy 37.8 ng/mL
== END ==
PROVIDERS: PCP Family Medicine; Referring Provider Family Medicine; Visit Provider Family Medicine
DX: M81.8 Other osteoporosis without current pathological fracture (principal); I10 Essential (primary) hypertension
CPT/HCPCS: 36415; 80053; 80061; 82306; 83735; 83970; 84443

== ENCOUNTER 2020-06-09 14:51 | Emergency (ER) | payer MEDICARE, OTHER, SELFPAY ==
[2020-04-05 08:05] VITALS: BMI 32.2
[2020-06-09 14:52] VITALS: BP 121/74; PULSE 80; RESP 16; TEMP 36.6; O2SAT 97; BMI 28.7
--- NOTE | 2020-06-09 15:02 | RAD_ITS ---
STUDY: X-RAY - RIGHT ELBOW REASON FOR EXAM: Male, 69 years old. Injury and pain TECHNIQUE: 3 view(s) of the elbow. COMPARISON: None. FINDINGS: There is a nondisplaced fracture of the radial head. Elbow is located. Ulna is intact. There is a joint effusion. RAD/Elbow min 3 Views IMPRESSION: Radial head fracture. Electronically Signed: Drake Szymanski MD at 15:22 EDT Tel , Service support ,
--- NOTE | 2020-06-09 15:02 | EX.ED.UPPERE ---
HPI History of Present Illness Chief Complaint: Upper Extremity Injury Informant: patient Narrative Narrative: 69-year-old male presents with left arm injury. He states he was coming down off of a ladder and missed stepped and fell with his right arm bent and tucked up against him. He denies any other injuries except to the left elbow region. He notes pain with flexion extension and pronation supination. He notes no rib pain or shortness of breath. No head or neck pain. No hip pain. [facility] Medical History (Updated 06/09/20 @ 15:[address] Dominic Harmon, ) Chest pain Closed left hip fracture Contusion of left hip Fracture of radial head, left, closed GERD (gastroesophageal reflux disease) HTN (hypertension) Osteopenia Osteoporosis Sleep apnea Home Medications allopurinol 200 mg PO DAILY 12/13/17 [History Last Taken 03/18/18] omeprazole 40 mg PO DAILY 03/19/18 [History Last Taken 03/18/18] acetaminophen 1,000 mg PO Q8 PRN #90 tab 03/22/18 [Rx Last Taken Unknown] ascorbic acid (vitamin C) 500 mg PO BIDCM 03/22/18 [History Last Taken Unknown] calcium carbonate 1,000 mg PO DAILY@0800 03/22/18 [History Last Taken Unknown] cholecalciferol (vitamin D3) 1,000 unit PO DAILY 03/22/18 [History Last Taken Unknown] ferrous sulfate 325 mg PO BID 03/22/18 [History Last Taken Unknown] food supplemt, lactose-reduced 120 ml PO TID 03/22/18 [History Last Taken Unknown] sennosides-docusate sodium 2 tab PO BID PRN PRN #60 tab 03/22/18 [Rx Last Taken Unknown] lisinopril 10 mg PO BID #60 tab 04/02/18 [Rx Last Taken Unknown] melatonin 3 - 9 mg PO QHS PRN tab 04/02/18 [Rx Last Taken Unknown] loratadine 10 mg tablet 10 mg PO DAILY 04/05/20 [History Last Taken Unknown] oxycodone-acetaminophen 1 tab PO Q6H PRN PRN 3 Days #12 tablet 06/09/20 [Rx Last Taken Unknown] Allergy/AdvReac Type Severity Reaction Status Date / Time Egg Derived Allergy Food Verified 06/09/20 14:52 Allergy Penicillins Allergy Anaphylaxis Verified 06/09/20 14:52 Milk Containing Products AdvReac Diarrhea Verified 06/09/20 14:52 STEROIDS AdvReac Shortness Uncoded 06/09/20 14:52 of breath Family History (Reviewed 04/05/20 @ 08:17 by Josephine Grant BEATING MACHINE OPERATOR, BEATING MACHINE OPERATOR-C) Mother Diabetes Dementia Father Heart disease Leukemia Surgical History History of hip surgery Social History (Updated 06/09/20 @ 15:[address] Dominic Harmon DO) current occupational status: retired Smoking Status: Never smoker ROS ROS ED Constitutional Constitutional ED: Denies chills or weight loss Eyes Eyes: Denies change in vision or diplopia ENT ENT ED: Denies ear pain, rhinorrhea or sore throat Cardiovascular Cardiovascular: Denies chest pain, orthopnea, palpitations or racing heartbeat Respiratory/Chest Respiratory/Chest: Denies cough, dyspnea or orthopnea Gastrointestinal Gastrointestinal: Denies abdominal pain, diarrhea, nausea or vomiting Genitourinary Genitourinary ED: Denies dysuria, hematuria or urinary frequency Musculoskeletal Musculoskeletal: Reports extremity pain, joint pain and limited range of motion; Denies arthralgias, myalgias or neck pain Integumentary Denies abscess or rash Neurologic Neurologic: Denies headache(s) or weakness Psychiatric Psychiatric: Denies anxiety, depression, suicidal ideation or suicidal thoughts Endocrine Endocrinology: Denies polydipsia, polyphagia or polyuria Allergic/Immunologic Allergic/Immunologic ED: Denies mouth swelling, tongue swelling or urticaria EXAM Physical Exam Const Vital Signs: 06/09/20 14:52 Temperature 97.8 F Temperature Source Temporal Pulse Rate 80 Respiratory Rate 16 Blood Pressure 121/74 H Blood Pressure Mean 89 Pulse Ox 97 Positive well nourished and well developed General Appearance ED: well developed HEENT Reports normocephalic, head/scalp atraumatic and moist mucous membranes Eyes PERRL and EOMs intact bilaterally Neck no lymphadenopathy, supple and no JVD Resp normal respiratory effort and clear to auscultation bilaterally Cardio regular rate, regular rhythm and no murmurs GI normal to inspection, nondistended, normoactive bowel sounds and non-tender Palpation: soft Back/Spine no CVA tenderness and normal ROM Extremity Extremity Narrative: Right elbow is held in flexion. Pain with pronation supination. Tender palpation over the olecranon. Neurovascular intact distal General Extremety ED: Negative for edema General Extremity: Negative for edema Neuro oriented x3 and CN's II-XII intact bilaterally Sensorium / Orientation: alert Motor Exam: strength 5/5 throughout Psych mental status grossly normal Mood & Affect: Negative for depressed or tearful Skin no rashes or lesions noted and no wounds MDM MDM MDM Narrative Medical decision making narrative: My interpretation of the plain films of the right elbow is acute radial head fracture with joint effusion. Patient was placed in a sling. I will write for some pain medication. He will follow up with orthopedics. He is seen Dr. Salvador in the past. Discharge Plan Triage Chief Complaint: Upper Extremity Injury ED Provider: Dominic Harmon Dx/Rx/DC Orders Clinical Impression: Closed fracture of head of right radius, Fall Instructions: ED Radial Head Fracture Prescriptions: New oxycodone-acetaminophen [oxycodone-acetaminophen] 1 TABLET tablet 1 tab PO Q6H PRN PRN (Reason: Pain) 3 Days Qty: 12 RF: 0 No Action loratadine [Claritin] 10 mg tablet 10 mg PO DAILY RF: 0 allopurinol 100 MG tablet 200 mg PO DAILY RF: 0 omeprazole 40 MG capsule,delayed release(DR/EC) 40 mg PO DAILY RF: 0 sennosides-docusate sodium 1 TABLET tablet 2 tab PO BID PRN PRN (Reason: Constipation) Qty: 60 RF: 0 acetaminophen 500 MG tablet 1,000 mg PO Q8 PRN (Reason: Pain) Qty: 90 RF: 0 ferrous sulfate 325 MG tablet 325 mg PO BID RF: 0 calcium carbonate 500 MG tablet 1,000 mg PO DAILY@0800 RF: 0 ascorbic acid (vitamin C) 500 MG tablet 500 mg PO BIDCM RF: 0 cholecalciferol (vitamin D3) 1,000 UNIT tablet 1,000 unit PO DAILY RF: 0 food supplemt, lactose-reduced 120 ML liquid 120 ml PO TID RF: 0 melatonin 3 MG tablet 3 - 9 mg PO QHS PRN (Reason: Insomnia) RF: 0 lisinopril 10 MG tablet 10 mg PO BID Qty: 60 RF: 0 Primary Care Provider: Arnaldo Casiano Referrals: Arnaldo Casiano MD [Primary Care Provider] - Feng Salvador MD [STAFF PHYSICIAN] - As soon as possible Disposition Disposition: Home, self care
== END 2020-06-09 15:53 | disposition home or self-care (01) ==
PROVIDERS: Emergency Provider Emergency Medicine; PCP Family Medicine
DX: S52.124A Nondisplaced fracture of head of right radius, initial encounter for closed fracture (principal); W11.XXXA Fall on and from ladder, initial encounter; Y93.9 Activity, unspecified; Y92.9 Unspecified place or not applicable; I10 Essential (primary) hypertension; K21.9 Gastro-esophageal reflux disease without esophagitis; M81.0 Age-related osteoporosis without current pathological fracture; G47.30 Sleep apnea, unspecified; Z79.899 Other long term (current) drug therapy
CPT/HCPCS: 73080; 99283

== ENCOUNTER → 2020-06-13 07:59 | Outpatient (CLI) | payer MEDICARE, OTHER, SELFPAY ==
[2020-06-09 14:52] VITALS: BMI 28.7
--- NOTE | 2020-06-13 08:01 | CT_ITS ---
STUDY: CT RIGHT ELBOW WITHOUT CONTRAST REASON FOR EXAM: Right elbow fracture, right elbow pain status post right elbow injury. TECHNIQUE: Transaxial CT imaging of the elbow was performed. Sagittal and coronal images were reconstructed. Individualized dose optimization techniques were used for this CT. COMPARISON: Radiographs 06/09/2020. FINDINGS: There is a nondisplaced fracture of the radial neck (sagittal reconstruction series 601 images 28-33; axial series 4 images 48, 49). There is a mildly displaced fracture of the coronoid process (sagittal reconstruction series 601 images 18-22). There is no demonstrated fracture of the distal humerus. Normal radiocapitellar and ulnotrochlear articulations. There is a hemarthrosis. CT/Extremity Upper without Contra IMPRESSION: Nondisplaced fracture of the radial neck. Coronoid process fracture. Hemarthrosis. Electronically Signed: Paolo Dumont MD at 8:45 EDT Tel , Service support ,
== END ==
PROVIDERS: PCP Family Medicine; Referring Provider Physician Assistant; Visit Provider Physician Assistant
DX: S52.124A Nondisplaced fracture of head of right radius, initial encounter for closed fracture (principal)
CPT/HCPCS: 73200

== ENCOUNTER → 2020-07-30 15:02 | Outpatient (CLI) | payer MEDICARE, OTHER, SELFPAY ==
--- NOTE | 2020-07-30 15:05 | RAD_ITS ---
STUDY: X-RAY - BILATERAL RIBS REASON FOR EXAM: Male, 69 years old. Left sided chest pain. TECHNIQUE: 6 view(s) of the ribs. COMPARISON: None. FINDINGS: Generalized osteopenia of the osseous structures. The visualized lungs are clear and expanded. Normal heart, mediastinum and pulmonary byron. RAD/Ribs Bilat 3V No CXR IMPRESSION: Osteopenia with no displaced rib fracture identified. Electronically Signed: Tyrese Iqbal MD at 15:10 EDT , Service support ,
== END ==
PROVIDERS: PCP Family Medicine; Referring Provider Family Medicine; Visit Provider Family Medicine
DX: R07.81 Pleurodynia (principal)
CPT/HCPCS: 71110

== ENCOUNTER → 2020-11-09 13:13 | Outpatient (CLI) | payer MEDICARE, OTHER, SELFPAY ==
--- NOTE | 2020-11-09 13:28 | CT_ITS ---
EXAM: CT LUMBAR SPINE WITHOUT INTRAVENOUS CONTRAST : 1950 CLINICAL INDICATION: R/O MYELOMA TECHNIQUE: Helically acquired images were obtained of the lumbar spine without intravenous contrast. 2D reformats were reviewed. This CT exam was performed using one or more of the following dose reduction techniques: automated exposure control, adjustment of the mA and/or kV according to patient size, and/or use of iterative reconstruction technique. This report was created using [employer] report generation technology. COMPARISON: None. FINDINGS: VERTEBRAE: Unremarkable. No fracture. No traumatic subluxation. No discrete lytic or blastic abnormality. Normal alignment. DISCS/SPINAL CANAL/NEURAL FORAMINA: There is disc space narrowing at L5 - S1. VASCULATURE: Visualized abdominal aorta is not dilated. LYMPH NODES: Unremarkable. No retroperitoneal adenopathy. CT/Spine Lumbar without Contrast IMPRESSION: Degenerative changes at L5-S1 with disc space narrowing. There are no acute osseous abnormalities. There are no obvious lytic lesions identified. Individualized dose optimization techniques were used for this CT. at 1425 Reported and signed by: Lloyd Pisano MD Electronically Signed: Lloyd Pisano MD at 14:24 EDT Tel , Service support ,
--- NOTE | 2020-11-09 13:28 | CT_ITS ---
EXAM: CT THORACIC SPINE WITHOUT INTRAVENOUS CONTRAST : 1950 CLINICAL INDICATION: R/O MYELOMA TECHNIQUE: Helically acquired images were obtained of the thoracic spine without intravenous contrast. 2D reformats were reviewed. This CT exam was performed using one or more of the following dose reduction techniques: automated exposure control, adjustment of the mA and/or kV according to patient size, and/or use of iterative reconstruction technique. This report was created using [employer] report generation technology. COMPARISON: None. FINDINGS: VERTEBRAE: There is lucency within the T8 vertebral body compatible with a hemangioma. No fracture. No traumatic subluxation. Normal alignment. DISCS/SPINAL CANAL/NEURAL FORAMINA: There is multilevel degenerative change with disc space narrowing. VASCULATURE: Visualized thoracic aorta is not dilated. LYMPH NODES: Unremarkable. No retroperitoneal adenopathy. LUNGS AND PLEURAL SPACES: Unremarkable as visualized. No mass. No consolidation or edema. No pleural effusion or thickening. No pneumothorax. CT/Spine Thoracic without Contras IMPRESSION: No acute osseous abnormalities of the thoracic spine. There is multilevel degenerative change with disc space narrowing. No lytic lesions are identified. Individualized dose optimization techniques were used for this CT. at 1429 Reported and signed by: lLoyd Pisano MD Electronically Signed: Lloyd Pisano MD at 14:28 EDT Tel , Service support ,
[2020-11-09 13:49] LABS: Absolute Lymphocyte Count 1.46 X10^3/uL (0.83-4.51); Absolute Neutrophil Count 4.6 X10^3/uL (2.0-7.7); Basophil# 0.03 X10^3/uL; Basophil% 0.4 % (0-1); Eosinophil# 0.16 X10^3/uL; Eosinophils% 2.3 % (0-5); Hematocrit 38.3 % (40-54); Hemoglobin 13.4 g/dL (13.0-16.5); Lymphocyte # 1.46 X10^3/ul (0.83-4.51); Lymphocyte % 21.2 % (19-41); Mean Corpuscular Hgb 33.7 pg (27.0-32.0); Mean Corpuscular Volume 96.2 fL (80-94); Mean Platelet Vol. 9.3 fl (6.2-12.0); Monocyte# 0.62 X10^3/uL; NRBC Flagged by Analyzer 0 % (0-5); Neutrophil # 4.59 X10^3/uL (2.7-7.7); Neutrophil % 66.8 % (47-70); Platelet Count 191 K/mm3 (150-450); RBC Distribution Width CV 13.8 % (11.6-14.6); RBC Distribution Width SD 48.8 fl (35.1-43.9); Red Blood Count 3.98 M/mm3 (4.6-6.2); White Blood Count 6.9 K/mm3 (4.4-11.0)
[2020-11-09 13:54] LABS: Erythrocyte Sedimentation Rate 3 mm/hr (0-20)
[2020-11-09 14:35] LABS: ALB/GLOB Ratio 1.2 RATIO (0.9-2.4); AST(SGOT) 21 U/L (15-37); Alanine Aminotransfer ALT/SGPT 24 U/L (16-61); Albumin, Serum 3.8 g/dL (3.2-5.0); Alkaline Phosphatase 69 U/L (45-117); Anion Gap 8 (5-15); BUN 26 mg/dL (7-18); Calcium,Total 9.7 mg/dL (8.5-10.1); Chloride 103 mmol/L (98-107); Creatinine, Serum 1.13 mg/dL (0.70-1.30); EST Glomerular Filtration Rate 68 mL/min (>60); Est Glom Filt Rate - Afr Amer 83 mL/min (>60); Globulin 3.2 g/dL (2.2-4.2); Glucose 89 mg/dL (74-106); LDH 161 U/L (87-241); Potassium 3.8 mmol/L (3.5-5.1); Sodium Level 140 mmol/L (136-145)
[2020-11-12 14:08] LABS: Albumin 3.6 g/dL (2.9-4.4); Alpha-1-Globulins 0.2 g/dL (0.0-0.4); Alpha-2-Globulins 0.6 g/dL (0.4-1.0); Free Kappa Light Chains 19.6 mg/L (3.3-19.4); Free Lambda Light Chains 15.2 mg/L (5.7-26.3); Gamma Globulin 0.8 g/dL (0.4-1.8); Immunoglobulin A 93 mg/dL (61-437); Immunoglobulin G 792 mg/dL (603-1613); Immunoglobulin M 61 mg/dL (20-172); PROEL- TOTAL PROTEIN 6.3 g/dL (6.0-8.5)
[2020-11-12 16:39] LABS: IMMUNOFIXATION RESULT,S Comment: (.)
== END ==
PROVIDERS: PCP Family Medicine; Referring Provider Internal Medicine Medical Oncology; Visit Provider Internal Medicine Medical Oncology
DX: S70.02XA Contusion of left hip, initial encounter (principal); R77.9 Abnormality of plasma protein, unspecified
CPT/HCPCS: 36415; 72128; 72131; 80053; 82784; 83615; 83883; 84165; 85025; 85652; 86334

== ENCOUNTER → 2020-12-21 09:51 | Outpatient (CLI) | payer MEDICARE, OTHER, SELFPAY ==
[2020-12-21 10:06] VITALS: BP 116/66; PULSE 67; RESP 16; TEMP 35.8; O2SAT 98; BMI 29.0
[2020-12-21] MEDS: 0.9% NaCl Peripheral Flush Adult/Peds IV (10:22)
[2020-12-21] MEDS: Zoledronic Acid 5 MG 100 ML 300 MG IV (10:22)
[2020-12-21 10:48] VITALS: BP 105/61; PULSE 60; RESP 16; TEMP 35.8; O2SAT 97
== END ==
PROVIDERS: PCP Family Medicine; Referring Provider Family Medicine; Visit Provider Family Medicine
DX: M81.8 Other osteoporosis without current pathological fracture (principal); K90.9 Intestinal malabsorption, unspecified; K21.9 Gastro-esophageal reflux disease without esophagitis; K58.9 Irritable bowel syndrome, unspecified
CPT/HCPCS: 96365; A4216; J3489

== ENCOUNTER 2021-03-01 08:20 | Outpatient (CLI) | payer MEDICARE, OTHER, SELFPAY ==
[2021-03-01 09:34] LABS: AST(SGOT) 22 U/L (15-37); Alanine Aminotransfer ALT/SGPT 29 U/L (16-61); Albumin, Serum 3.9 g/dL (3.2-5.0); Alkaline Phosphatase 62 U/L (45-117); Bilirubin, Direct 0.15 mg/dL (0.00-0.30); Cholesterol 249 mg/dL (200); Globulin 3.2 g/dL (2.2-4.2); High Density Lipoprotein 44 mg/dL; Protein, Total 7.1 g/dL (6.4-8.2); Triglycerides 170 mg/dL; Very Low Density Lipoprotein 34 mg/dL (5-40)
== END 2021-03-01 23:59 | disposition short-term general hospital (02) ==
PROVIDERS: PCP Family Medicine; Referring Provider Internal Medicine Cardiovascular Disease; Visit Provider Internal Medicine Cardiovascular Disease
DX: R07.9 Chest pain, unspecified (principal); E78.5 Hyperlipidemia, unspecified
CPT/HCPCS: 36415; 80061; 80076

== ENCOUNTER 2021-03-14 11:48 | Outpatient (CLI) | payer MEDICARE, OTHER, SELFPAY ==
--- NOTE | 2021-03-14 11:57 | CT_ITS ---
STUDY: CT CHEST WITHOUT CONTRAST REASON FOR EXAM: Male, 70 years old. hyperlipidemia. Overread examination. RADIATION DOSAGE (If Supplied By Facility): CTDIvol = ( 12.19 ) mGy, DLP = ( 195.04 ) mGycm TECHNIQUE: Transaxial imaging was performed without the administration of intravenous contrast material. Individualized dose optimization techniques were used for this CT. COMPARISON: None. FINDINGS: Mild degree of increased interstitial markings with areas of confluence in the lower lobes slightly worse on the left side. This most likely represents chronic scarring. There is no demonstrated pleural abnormality. There are calcifications of the coronary arteries. There are multiple small lymph nodes within the mediastinum, which are normal in size and morphology most compatible with reactive lymph hyperplasia. Normal hilar regions. Normal unenhanced pulmonary arteries. Normal aorta arch and descending thoracic aorta. There are mild degenerative changes of the thoracic spine. There is no demonstrated abnormality of the visualized upper abdomen. CT/Limited Chest CT w/CCTA IMPRESSION: Mild degree of increased interstitial markings with areas of confluence in the lower lobes suggestive of scarring. Coronary artery calcification. Electronically Signed: Shimon Alcazar MD at 14:57 EST ,
[2021-03-14 13:04] VITALS: BP 96/51; PULSE 57; RESP 16; O2SAT 97; BMI 29.8
== END 2021-03-14 23:59 | disposition short-term general hospital (02) ==
LOC: CT 11:50
PROVIDERS: PCP Family Medicine; Referring Provider Internal Medicine Cardiovascular Disease; Visit Provider Internal Medicine Cardiovascular Disease
DX: E78.5 Hyperlipidemia, unspecified (principal); I25.10 Atherosclerotic heart disease of native coronary artery without angina pectoris; L90.5 Scar conditions and fibrosis of skin
CPT/HCPCS: 75571; 76380

== ENCOUNTER 2021-03-15 12:14 | Outpatient (CLI) | payer MEDICARE, OTHER, SELFPAY ==
--- NOTE | 2021-03-14 15:33 | CA.SCORE ---
Calcium Scoring Coronary Calcium Scoring: High-resolution Computed Tomographic imaging of the chest was performed on [03/14/21 ], with particular attention paid to the coronary arteries. Images from the examination were analyzed for the presence and extent of coronary artery calcification , using coronary calcium quantification software. The patient tolerated the procedure well and there were no complications. The results of the coronary calcification analysis are provided below. Left main coronary artery score 2.39 Left anterior descending artery score 6.56 Left circumflex artery score 92.1 Right coronary artery score 1118 Total Agatston score 1219. The above places him between the 75th and 90th percentile ranking for coronary artery calcification. This demonstrates a high likelihood of at least 1 significant coronary stenosis of more than 50% diameter Calcium Scoring Interpretation: 0 No identifiable atherosclerotic plaque. Very low cardiovascular disease risk. <5% chance of presence coronary artery disease A Negative Examination 1-10 Minimal Plaque burden. Significant coronary artery disease very unlikely. 11-100 Mild plaque burden. Likely mild or minimal coronary atherosclerosis. 101-400 Moderate plaque burden Moderate non-obstructive coronary artery disease highly likely. Over 400 Extensive plaque burden. High likelihood of at least one significant coronary stenosis (>50% diameter)
--- NOTE | 2021-03-15 12:16 | STEWCON_ITS ---
Reason For Study: Chest Pain; CAD Stress Results Protocol: Bird Protocol WITH DEFINITY Maximum Predicted HR: 150 bpm Target HR: 128 bpm % Maximum Predicted HR: 91 % DurationHeart Rate Stage (mm:ss) (bpm) BP Comment Baseline 71 102/603 ML Diluted Definity; Mild Left Chest Pain Bird Protocol Stage I 3:00 97 114/62No Chest Pain Bird Protocol Stage II 3:00 113 124/60No Chest Pain; Mild Dyspnea Bird Protocol Stage III 3:00 137 142/60No Chest Pain; Moderate Dyspnea Recovery 85 104/64No Chest Pain Stress Duration: 9:00 mm:ss Maximum Stress HR: 137 bpm METS: 10 Baseline Echocardiogram Findings Stress Echo Wall motion Data Resting WM Intermediate WM Stress WM ECHO/Stress Test Echo W/Contrast Interpretation Summary Exercise stress echo. 70-year-old male with a history of elevated calcium score. Stress protocol: Resting KG demonstrates normal sinus rhythm with a rate of 62 bpm normal interv als are noted resting blood pressure is 102/60 mmHg. The patient exercised according to regular Bird protocol for a total duration of 9 minutes. Patient completed stage III of the Bird protocol. The m aximum heart rate attained was 160 bpm which was 106% of max impact at heart rate the maximum wor kload was 10.1 metabolic equivalents. The patient maintained sinus rhythm throughout the recor ding. At rest there were no ST or T wave changes noted to suggest ischemia and at peak exercise ups loping ST changes were noted with did not meet the criteria for ischemia. No clinical angina was noted. The peak blood pressure was 142/60 mmHg. Rate-pressure product was 19,454. Stress echocardiogram. Resting echocardiographic images were obtained with Definity enhancement. There was preserved left ventricular systolic function estimated to be 60%. No wall motion abnormalities were noted. At peak exercise there was thickening of all gonzalez, reduction of left ventricular cavit y size and peaking of ejection fraction of 70%. No new wall motion abnormalities were noted. Conclusion: Normal exercise stress echo with no EKG or echocardiographic evidence of ischem ia. Excellent functional aerobic capacity. Good blood pressure response to exercise. In comparison with the stress echocardiogram from 4 years ago the above is esse ntially unchanged. Ordering Physician: Dwayne Klein Referring Physician: Arnaldo Casiano Performed By: Radha Thornton, NASH, RVT
== END 2021-03-15 23:59 | disposition short-term general hospital (02) ==
LOC: CVS 12:15
PROVIDERS: PCP Family Medicine; Referring Provider Internal Medicine Cardiovascular Disease; Visit Provider Internal Medicine Cardiovascular Disease
DX: E78.5 Hyperlipidemia, unspecified (principal); R06.09 Other forms of dyspnea
CPT/HCPCS: 93017; 93350; Q9957; A4216; C8928

== ENCOUNTER 2021-03-22 12:40 | Outpatient (CLI) | payer MEDICARE, OTHER, SELFPAY ==
[2021-03-22 15:39] LABS: Vitamin B12 262 pg/mL (211-911)
[2021-03-22 16:06] LABS: ALB/GLOB Ratio 1.2 RATIO (0.9-2.4); AST(SGOT) 23 U/L (15-37); Alanine Aminotransfer ALT/SGPT 28 U/L (16-61); Albumin, Serum 3.8 g/dL (3.2-5.0); Alkaline Phosphatase 64 U/L (45-117); Anion Gap 5 (5-15); BUN 23 mg/dL (7-18); BUN/Creat Ratio 22.3 RATIO (10-20); Calcium,Total 9.4 mg/dL (8.5-10.1); Chloride 100 mmol/L (98-107); Creatinine, Serum 1.03 mg/dL (0.70-1.30); EST Glomerular Filtration Rate 76 mL/min (>60); Est Glom Filt Rate - Afr Amer 92 mL/min (>60); Ferritin 267 ng/mL (26-388); Globulin 3.1 g/dL (2.2-4.2); Glucose 96 mg/dL (74-106); Iron 48 ug/dL (65-175); Potassium 3.7 mmol/L (3.5-5.1); Protein, Total 6.9 g/dL (6.4-8.2); Sodium Level 137 mmol/L (136-145); Thyroid Stim Hormone (TSH) 1.35 uIU/mL (0.358-3.74)
== END 2021-03-22 23:59 | disposition home or self-care (01) ==
LOC: MTLAB 12:42
PROVIDERS: PCP Family Medicine; Referring Provider Family Medicine; Visit Provider Family Medicine
DX: K90.9 Intestinal malabsorption, unspecified (principal); R53.83 Other fatigue; E53.8 Deficiency of other specified B group vitamins
CPT/HCPCS: 36415; 80053; 82607; 82728; 82746; 83540; 84443

== ENCOUNTER 2021-05-09 11:49 | Outpatient (CLI) | payer MEDICARE, OTHER, SELFPAY ==
[2021-05-09 12:10] LABS: Hematocrit 37.2 % (40-54); Hemoglobin 12.9 g/dL (13.0-16.5); Mean Corp Hgb Conc 34.7 g/dL (32-36); Mean Corpuscular Hgb 32.7 pg (27.0-32.0); Mean Corpuscular Volume 94.4 fL (80-94); Mean Platelet Vol. 8.9 fl (6.2-12.0); Platelet Count 178 K/mm3 (150-450); RBC Distribution Width CV 13.6 % (11.6-14.6); RBC Distribution Width SD 46.9 fl (35.1-43.9); Red Blood Count 3.94 M/mm3 (4.6-6.2); White Blood Count 5.7 K/mm3 (4.4-11.0)
[2021-05-09 12:59] LABS: Anion Gap 3 (5-15); BUN 17 mg/dL (7-18); Calcium,Total 9.4 mg/dL (8.5-10.1); Chloride 103 mmol/L (98-107); EST Glomerular Filtration Rate 78 mL/min (>60); Est Glom Filt Rate - Afr Amer 95 mL/min (>60); Glucose 98 mg/dL (74-106); PSA,Total- Diagnostic 0.69 ng/mL (0.0-4.0); Potassium 3.9 mmol/L (3.5-5.1); Sodium Level 137 mmol/L (136-145)
== END 2021-05-09 23:59 | disposition home or self-care (01) ==
LOC: LAB 11:51
PROVIDERS: PCP Family Medicine; Referring Provider Urology; Visit Provider Urology
DX: D41.01 Neoplasm of uncertain behavior of right kidney (principal)
CPT/HCPCS: 36415; 80048; 84153; 85027

== ENCOUNTER 2021-05-17 07:20 | Outpatient (CLI) | payer MEDICARE, OTHER, SELFPAY ==
[2021-05-17 11:02] LABS: AST(SGOT) 21 U/L (15-37); Alanine Aminotransfer ALT/SGPT 34 U/L (16-61); Albumin, Serum 3.8 g/dL (3.2-5.0); Alkaline Phosphatase 74 U/L (45-117); Bilirubin, Direct 0.17 mg/dL (0.00-0.30); Cholesterol 222 mg/dL (200); Globulin 2.8 g/dL (2.2-4.2); High Density Lipoprotein 38 mg/dL; Protein, Total 6.6 g/dL (6.4-8.2); Triglycerides 164 mg/dL; Very Low Density Lipoprotein 33 mg/dL (5-40)
== END 2021-05-17 23:59 | disposition home or self-care (01) ==
LOC: MTLAB 07:21
PROVIDERS: PCP Family Medicine; Referring Provider Internal Medicine Cardiovascular Disease; Visit Provider Internal Medicine Cardiovascular Disease
DX: E78.00 Pure hypercholesterolemia, unspecified (principal); E78.5 Hyperlipidemia, unspecified
CPT/HCPCS: 36415; 80061; 80076

== ENCOUNTER 2021-05-23 07:43 | Outpatient (CLI) | payer MEDICARE, OTHER, SELFPAY ==
--- NOTE | 2021-05-23 07:45 | CT_ITS ---
STUDY: CT ABDOMEN AND PELVIS WITH AND WITHOUT CONTRAST REASON FOR EXAM: Male, 70 years old. 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 IV 100mL Isovue-300 was administered. Sagittal and coronal images were reconstructed. Individualized dose optimization techniques were used for this CT. COMPARISON: None. FINDINGS: There are increased interstitial markings at the lung bases with areas of confluence suggestive of basilar scarring. Coronary artery calcification Normal liver. There are multiple small gallstones. Normal spleen. Normal pancreas. Normal bilateral adrenal glands. There is a 1 cm x 1 cm hypodense nodule in the upper outer aspect of the right kidney. This is not a typical cyst. There is a 3.1 cm x 2.5 cm cyst in the lower pole of the left kidney. There is also evidence of a 1.3 cm x 1.6 on the cyst in the mid medial aspect of the left kidney. There is a 3.7 cm x 3.8 cm hypodense nodule in the inferior pole of the left kidney. This is not a typical cyst. Correlation with ultrasound recommended. Incidental note is made of a left retroaortic renal vein. There is a small hiatal hernia. Normal small intestine. Normal colon. The appendix is visualized and appears normal. There is diffuse atherosclerotic calcification of the abdominal aorta and its major visceral branches, without a demonstrated aneurysm. Normal inferior vena cava. Normal retroperitoneum. Diffuse thickening of the urinary bladder wall. Heterogeneous enlargement of the prostate with calcifications. The prostate measures 4.7 cm x 4 cm. This causes indentation at the bladder base. Bilateral inguinal rings containing fat slightly larger on the right side. There are diffuse degenerative changes of the visualized lumbar spine. CT/CT Abd/Pelvis W/WO Contrast IMPRESSION: Bilateral renal cysts. Atypical cystic nodule seen in the lower pole of the left kidney as described. Relation with ultrasound is recommended. 1 cm hypodense nodule in the superior aspect of the right kidney. Diffusely thickened urinary bladder wall with heterogeneous enlargement of the prostate causing indentation at the bladder base. Electronically Signed: Shimon Alcazar MD at 9:12 EDT ,
== END 2021-05-23 23:59 | disposition home or self-care (01) ==
LOC: CT 07:44
PROVIDERS: PCP Family Medicine; Referring Provider Urology; Visit Provider Urology
DX: D41.01 Neoplasm of uncertain behavior of right kidney (principal)
CPT/HCPCS: 74178; Q9967

== ENCOUNTER 2021-06-12 14:33 | Observation (INO) | payer MEDICARE, OTHER, SELFPAY ==
--- NOTE | 2021-06-10 08:50 | EKG12_ITS ---
Test Reason : PRE OP Blood Pressure : / mmHG Vent. Rate : 071 BPM Atrial Rate : 071 BPM P-R Int : 168 ms QRS Dur : 092 ms QT Int : 400 ms P-R-T Axes : 065 056 060 degrees QTc Int : 434 ms Normal sinus rhythm Normal ECG Confirmed by SAPNA ACOSTA, MARLON ([id number]), online editor MAGGIE ENCARNACION ([id number]) on 06/10/2021 1:31:12 PM Referred By: Eduardo Wilhelm Confirmed By:MARLON ALEJO MD
--- NOTE | 2021-06-10 09:05 | RAD_ITS ---
STUDY: X-RAY CHEST REASON FOR EXAM: Male, 70 years old. preop TECHNIQUE: PA and lateral COMPARISON: None. FINDINGS: The lungs are clear and expanded. There is no demonstrated pleural abnormality. Normal size heart. Normal mediastinum and byron. Normal visualized pulmonary arteries. Normal visualized aortic arch and descending thoracic aorta. Normal visualized thoracic spine. Normal visualized ribs, clavicles, and shoulders. There is no demonstrated abnormality of the visualized soft tissue structures of the upper abdomen. RAD/Chest PA and Lateral IMPRESSION: Normal x-ray examination of the chest. Electronically Signed: Landen Armstrong MD at 22:53 EDT ,
[2021-06-12] VITALS (11 sets, daily range): BP systolic 83–108; BP diastolic 50–70; PULSE 54–84; RESP 16–18; TEMP 35.8–36.6; O2SAT 95–100; BMI 28.8
--- NOTE | 2021-06-12 | IMM_PTH ---
PATIENT: MARIA LUZ COHEN II LOC: MS3 U#:[id number] AGE/SX: 70/M ROOM: KS318 RE06/12/[address]: Dr. Jack Yepez MD : 1950 BED: 1 DIS: 06/14/2021 SPEC #: [id number] RECD: 06/17/21 12:01 STATUS: CODY TOM #: [id number] FAY: 06/12/21 00:[address]: Eduardo Wilhelm DEPT: IMMUNOHISTOCHEMISTRY RECD BY: Christine Yoo ENTERED: 06/17/21 12:03 SP TYPE: IMMUNO OTHR DR: MD Dr. Jack Jimenez MD Dr. Prakash Chand, MD Tissues: Kidney, NOS Procedures: CD10 (add) CK20 (add) CK5-6 (add) CK7 (add) MARIN-2 (add) E-CAD (add) KI-67 (add) P53 (add) Vimentin (add) 34BE12 (add) Pankeratin (initial) P40 (add) PHYSICIAN & [place] [id number] SPECIMEN INFORMATION: Tissue Source: Left renal mass Clinical Info: Left renal mass Specimen Number: [id number] #8 CPT code: 13936, 91495 x11 METHODOLOGY: Deparaffinized sections of prefer/formalin-fixed tissue or PAP/DQ stained slides are incubated with monoclonal/polyclonal antibodies/oligonucleotide probes. Localization is made via biotin free immunoperoxidase method. Appropriate controls are performed and reacted as expected. Results on target cell population are indicated in the following table: RESULTS: ANTIBODY / CLONE RESULT Block 8 E-Cad (ECH-6) negative AE1-3 (AE1/AE3/PCK26) positive CK7 (OV-TL12/30) positive CK20 (KS20.8) negative MARIN-2 (SP21) positive, focal CD10 (56C6) positive Vimentin (V9) positive 34BE12 (34BE12) negative CK5-6 (D5 & 1684) negative P40 (BC28) negative P53 (DO-7) positive, 2% Ki-67 (30-9) positive, 5% These tests were developed and their performance characteristics determined by [facility]. They may not have been cleared or approved by the U.S. Food and Drug Administration. The FDA has determined that such clearance or approval is not necessary. The above immunohistochemical/dualISH markers are ordered and reviewed by the Pathologist. INTERPRETATION: Left renal mass, partial nephrectomy: Papillary renal cell carcinoma. AM:jeanne 06/18/2021
--- NOTE | 2021-06-12 | KID_PTH ---
PATIENT: MARIA LUZ COHEN II LOC: MS3 U#:[id number] AGE/SX: 70/M ROOM: CO318 RE06/12/[address]: Dr. Jack Yepez MD : 1950 BED: 1 DIS: 06/14/2021 SPEC #: [id number] RECD: 06/12/21 12:40 STATUS: CODY SANTOS #: [id number] FAY: 06/12/21 00:[address]: Eduardo Wilhelm DEPT: SURGICAL PATHOLOGY RECD BY: Geo Brink ENTERED: 06/13/21 08:02 SP TYPE: KIDNEY OTHR DR: MD Dr. Raul Jimenez MD Tissues: Kidney, NOS Procedures: Surgery Specimen Level V HEADER OPERATION: Lap. Robotic Partial Nephrectomy PRE-OP DIAGNOSIS: History of Renal Disease TISSUE SUBMITTED: Left Renal Mass MICROSCOPIC DIAGNOSIS Left renal mass, partial nephrectomy: Papillary renal cell carcinoma, type I. See cancer checklist below. AM:rg 06/17/2021 COMMENT KIDNEY CANCER SUMMARY Procedure ? partial nephrectomy Specimen laterality ? left kidney Tumor site ? left kidney Tumor focality ? single focus of carcinoma Histologic type ? papillary renal cell carcinoma, type I Sarcomatoid features ? not identified Rhabadoid features - not identified Histologic grade - grade 2 of 4 Tumor necrosis ? focally present Tumor extension ? tumor confined to kidney. Lymphvascular invasion - not identified Regional lymph nodes ? no lymph nodes found. Non-neoplastic kidney ? mild arterionephrosclerosis. PATHOLOGIC STAGE: T1 Nx Mx The above summary is in compliance with [employer] [place] [employer] (CAP) Cancer Protocols Checklist and [place] Joint Committee on Cancer (AJCC), Staging Manual, 8th Ed. Immunohistochemistry ([id number]) supports the above diagnosis. Cytogenetic studies may be performed on sections of tumor if indicated. Please notify the laboratory if cytogenetic studies are indicated. Case has been reviewed in consultation with Dr. Marroquin who concurs with the above diagnosis. IDC:SJ MICROSCOPIC DESCRIPTION Slides are reviewed. GROSS DESCRIPTION Received in fixative is one container labeled with the patient's name and designated left renal mass. The specimen consists of a partial nephrectomy specimen consisting of portion of kidney with overlying mass including a mass and perirenal adipose tissue weighing 51 gm. The entire specimen measures 7 x 4 x 4 cm. The mass appears to be partly disrupted. The mass measures 3.5 x 3 x 3 cm. Portion of the attached kidney measures 4 x 4 x 2.5 cm. Attached perirenal adipose tissue measures 2 cm in greatest width. Renal parenchymal resection margin is inked black. The rest of the external surface is inked blue. Sections of the tumor reveal yellowish, necrotic cut surfaces without area of hemorrhage. The tumor is 0.1 cm away from the closest renal parenchymal margin. It appears to be completely excised. Sagger Filler sections are submitted in eight cassettes as follows: 1-5 ? tumor with renal parenchymal margin, 6-8 ? tumor with adjacent perirenal adipose tissue. Sections are submitted after overnight fixation. / SJ:rg 06/13/2021 TC:0 CPT: 69342
[2021-06-12] MEDS: Lactated Ringers 1,000 ML 30 ML IV ×3 (07:18→09:30)
[2021-06-12] MEDS: Ciprofloxacin 400 MG/200 ML BAG 200 MG IV (07:30)
--- NOTE | 2021-06-12 07:48 | HP.PCM_ITS ---
HPI - General HPI Narrative MARIA LUZ COHEN, is a 70 M who presents for a left partial nephrectomy he has a 3 cm solid lower pole renal mass options of management reviewed with the patient and regular proceed with a laparoscopic robotic assisted partial nephrectomy. [facility] Medical History (Updated 06/12/21 @ 07:[address] Eduardo Wilhelm MD) Cardiology follow-up encounter Chronic cough Closed left hip fracture Difficulty swallowing Eczema Essential hypertension Fracture of radial head, left, closed Fracture of right patella Fracture of right radius GERD (gastroesophageal reflux disease) Gout History of echocardiogram History of renal disease History of stress test Hyperlipidemia Hyperuricemia IBS (irritable bowel syndrome) Migraine headache Non-smoker Obesity Osteopenia Osteoporosis Personal history of supraventricular tachycardia Seasonal allergies Wears glasses Wears hearing aid Home Medications allopurinol 200 mg PO DAILY 12/13/17 [History Last Taken 03/18/18] calcium carbonate 1,000 mg PO DAILY@0800 03/22/18 [History Last Taken Unknown] loratadine 10 mg tablet 10 mg PO DAILY 04/05/20 [History Last Taken Unknown] cholecalciferol (vit D3) 1,000 unit-vitamin K2 (MK4) 100 mcg tablet 1 tab PO DAILY 02/20/21 [History Last Taken Unknown] colchicine 0.6 mg capsule 0.6 mg PO DAILY PRN 02/20/21 [History Last Taken Unknown] diltiazem HCl 60 mg capsule,extended release 12 hr 60 mg PO DAILY cap 02/20/21 [History Last Taken 06/12/21] hydrochlorothiazide 12.5 mg capsule 12.5 mg PO BID cap 02/20/21 [History Last Taken Unknown] indomethacin 50 mg capsule 50 mg PO BID PRN 02/20/21 [History Last Taken Unknown] lisinopril 20 mg tablet 20 mg PO BID tab 02/20/21 [History Last Taken 06/12/21] magnesium oxide 400 mg PO DAILY 02/20/21 [History Last Taken Unknown] ubrogepant 100 mg tablet 100 mg PO ONCE PRN tab 02/20/21 [History Last Taken Unknown] zoledronic acid 5 mg/100 mL in mannitol 5 %-water intravenous piggybck 5 ea .ROUTE .YEARLY PRN ml 02/27/21 [History Last Taken 03/13/21] atorvastatin 40 mg PO QPM 06/07/21 [History Last Taken Unknown] famotidine 40 mg PO BID 06/07/21 [History Last Taken 06/12/21] docusate sodium [Colace] 100 mg PO BID #20 cap 06/12/21 [Rx Last Taken Unknown] oxycodone-acetaminophen 1 tab PO Q4H PRN 7 Days #14 tab 06/12/21 [Rx Last Taken Unknown] Allergy/AdvReac Type Severity Reaction Status Date / Time Egg Derived Allergy Food Verified 06/12/21 06:28 Allergy Penicillins Allergy Anaphylaxis Verified 06/12/21 06:28 Milk Containing Products AdvReac Diarrhea Verified 06/12/21 06:28 STEROIDS AdvReac Other Uncoded 06/12/21 06:28 Family History Mother Diabetes Dementia Heart disease tachycardia Father Heart disease Leukemia Surgical History (Updated 06/07/21 @ 09:15 by Niru Patterson) History of hip surgery History of mandibular surgery Social History household members: spouse current occupational status: retired Smoking Status: Never smoker alcohol intake: current alcohol intake frequency: a few times a week Alcohol type: beer substance use type: does not use diet: lactose free caffeine: No what type of physical activity do you participate in: walking and bicycling frequency: 3-4 times per week ROS Constitutional Constitutional: Denies chills, fever(s) or malaise Eyes Eyes: Denies blurry vision or change in vision ENT HEENT: Reports none Cardiovascular Cardiovascular: Denies chest pain or palpitations Respiratory/Chest Respiratory/Chest: Denies cough or shortness of breath with exertion Gastrointestinal Gastrointestinal: Denies abdominal pain, constipation or diarrhea Musculoskeletal Musculoskeletal: Denies back pain, joint stiffness or joint swelling Integumentary Integumentary: Denies dry skin, jaundice, lesions or rash Neurologic Neurologic: Denies confusion, syncope or weakness Psychiatric Psychiatric: Reports none; Denies anxiety or depression Endocrine Endocrinology: Denies excessive sweating, fatigue or flushing Hematologic/Lymphatic Hematologic/Lymphatic: Denies anemia, easy bleeding or easy bruising Vital Signs Vital Signs Vital Signs: 06/12/21 06:33 Temperature 97.9 F Temperature Source Temporal Pulse Rate 71 Respiratory Rate 16 Respiratory Pattern Normal Blood Pressure 103/63 Blood Pressure Mean 76 Blood Pressure Source Monitor Blood Pressure Position Sitting Blood Pressure Location Left Arm Pulse Ox 100 Oxygen Delivery Method Room Air Weight Weight: 91 kg Body Mass Index (BMI) 28.8 Physical Exam Const alert and oriented x3 General Appearance: cooperative HEENT normocephalic, head/scalp atraumatic, EAC's normal and TM's normal bilaterally Eyes PERRL and EOMs intact bilaterally Pupil: sluggish Neck no lymphadenopathy, supple and no JVD General: trachea midline Lymph Lymphatic: no lymphadenopathy noted, lymphedema and lymphadenopathy Resp normal respiratory effort, normal air movement and clear to auscultation bilaterally Cardio regular rate, regular rhythm and peripheral pulses 2+ throughout GI soft to palpation, non-tender and non-distended Extremity normal capillary refill and no clubbing, cyanosis or edema General Extremity: no tenderness to palpation of joints or extremities Skin no rashes or lesions noted General Skin Exam: turgor normal Lesions: no lesions Rashes: no rashes Neuro CN's II-XII intact bilaterally Speech: speech normal Motor Exam: strength 5/5 throughout; Negative for general weakness Psych thought process normal, cooperative and affect normal Appearance: appropriate Results Lab / Micro Data Labs: Laboratory Results - last 24 hr 06/10/21 09:35: Blood Type Cancelled, A1 Antigen Typing Cancelled, Rho(D) Type Cancelled, Antibody Screen Cancelled, Crossmatch See Detail Assessment & Plan Assessment/Plan (1) History of renal disease:
--- NOTE | 2021-06-12 11:06 | PCM.DC ---
Discharge Instructions Diet Discharge Diet: Light diet - advance as tolerated and Soft diet Activity Discharge Activity: May Not Drive (while taking narcotic pain medications.) and May Shower May resume sexual activity in: 6-8 weeks Dressing / Incision Call your doctor if you observe: Fever of 101 or Higher Cleanse incision/area with: Soap & Water Follow Up Care Please Follow Up With: Eduardo Wilhelm MD When: Call [phone] for an appointment Test Results: Test results from this visit will be discussed in further detail at your follow-up appointment, if applicable. Discharge Plan Admission Primary Reason for Your Visit: left partial nephrectomy Attending Provider: Eduardo Wilhelm Primary Care Provider: Arnaldo Casiano Instructions Patient Instructions: Nephrectomy Dc Discharge Orders/Prescriptions Prescriptions: New docusate sodium [Colace] 100 mg capsule 100 mg PO BID Qty: 20 RF: 0 oxycodone-acetaminophen 5-325 mg tablet 1 tab PO Q4H PRN (Reason: pain) 7 Days Qty: 14 RF: 0 Continued loratadine [Claritin] 10 mg tablet 10 mg PO DAILY RF: 0 magnesium oxide 400 mg magnesium capsule 400 mg PO DAILY RF: 0 hydrochlorothiazide 12.5 mg capsule 12.5 mg PO BID RF: 0 lisinopril 20 mg tablet 20 mg PO BID RF: 0 indomethacin 50 mg capsule 50 mg PO BID PRN (Reason: arthritis) RF: 0 colchicine 0.6 mg capsule 0.6 mg PO DAILY PRN (Reason: GOUT) RF: 0 K2 Plus D3 1,000-100 unit-mcg tablet 1 tab PO DAILY RF: 0 Ubrelvy 100 mg tablet 100 mg PO ONCE PRN (Reason: migraines) RF: 0 diltiazem HCl 60 mg capsule,extended release 12 hr 60 mg PO DAILY RF: 0 zoledronic gyyz-dwblkdhm-bmjle [Reclast] 5 mg/100 mL piggyback 5 ea .Route .YEARLY PRN (Reason: osteoporosis) RF: 0 allopurinol 100 MG tablet 200 mg PO DAILY RF: 0 calcium carbonate 500 MG tablet 1,000 mg PO DAILY@0800 RF: 0 atorvastatin 40 mg tablet 40 mg PO QPM RF: 0 famotidine 40 mg tablet 40 mg PO BID RF: 0 Referrals / Follow Up: Arnaldo Casiano MD [Primary Care Provider] - Eduardo Wilhelm MD [STAFF PHYSICIAN] - Disposition Disposition (needs filled in before D/C Order can be placed): Home, Self Care
--- NOTE | 2021-06-12 11:06 | PCM.OPRPT ---
Report of Operation Date of Procedure: 06/12/21 Pre-Operative Diagnosis: Left renal mass Post-Operative Diagnosis: The same Surgery/Procedure Performed:: Laparoscopic robotic assisted partial nephrectomy Description of Surgical Findings:: Patient was taken back to the operating room at the smooth induction of general anesthesia he was then placed in full flank lateral position and secured to the table and the table was fully flexed. The abdomen was then prepped and draped in usual sterile fashion. Went in and filled the peritoneal space with CO2 gas then placed my trochars then we docked the robot we then air seal port and 4 trochars and camera trocar we used the X. I. da Silv[place] robot. We first dissected the colon off the kidney reflected the spleen off the kidney after this was completely reflected off then we went underneath the ureter and Gerota's fascia elevated this up with a fourth arm and then worked our way up to the hilum when he got to the hilum I then identified the renal vein and renal artery these were dissected out to identify them for clamping we then went up to the kidney we identified the tumor in the lower part of the kidney use of the ultrasound identify the tumor marked out the edges using ultrasound to guide this then once the tumor was completely identified in the lower part of the kidney and all the margins were identified with the resection then the artery was clamped and then using cold scissors and cautery I and cut the tumor off the lower part of the kidney and with a negative margin there was no gross contamination of the tumor after cutting out the tumor then we sewed the resection site with V-Loc stitches 3 stitches were used to control bleeding vessels then the artery was unclamped clamped times about 20 minutes I then reapproximated the edges of the resection site of the kidney back together with 0 Vicryl stitches using reconstruction free technique with a sliding clips. After this was done we checked for bleeding but he did Floseal on the site there was no bleeding from the resection of the tumor site robot was undocked we then extracted the tumor through the umbilicus we then closed the umbilicus primarily we looked back inside after 10 minutes of extracting the tumor there was no bleeding from the kidney the tumor was excised completely the fat was then placed over back over the kidney the all the ports were removed the patient anesthetic reversed minimal blood loss in the case a complete resection of the lower pole tumor and patient anesthetic reversed taken back to PACU in good condition. Surgeon: tomasz Type of Anesthesia: General Drains: granado Admit VTE Documentation VTE Present on Admission: No VTE Mechan Device Prophylaxis: SCD's VTE Pharm Prophylaxis ordered?: No
[2021-06-12 11:13] LABS: Hemoglobin 11.5 g/dL (13.0-16.5); Mean Corp Hgb Conc 33.8 g/dL (32-36); Mean Corpuscular Hgb 32.8 pg (27.0-32.0); Mean Corpuscular Volume 96.9 fL (80-94); Platelet Count 128 K/mm3 (150-450); RBC Distribution Width CV 13.6 % (11.6-14.6); Red Blood Count 3.51 M/mm3 (4.6-6.2); White Blood Count 4.3 K/mm3 (4.4-11.0)
[2021-06-12 11:23] LABS: Anion Gap 7 (5-15); BUN 17 mg/dL (7-18); BUN/Creat Ratio 18.8 RATIO (10-20); Calcium,Total 8.1 mg/dL (8.5-10.1); Chloride 101 mmol/L (98-107); EST Glomerular Filtration Rate 88 mL/min (>60); Est Glom Filt Rate - Afr Amer 106 mL/min (>60); Estimated Creatinine Clearance 78.86 ml/min; Glucose 130 mg/dL (74-106); Potassium 3.5 mmol/L (3.5-5.1); Sodium Level 136 mmol/L (136-145)
[2021-06-12] MEDS: Loratadine 10 MG Tablet PO (13:07)
[2021-06-12] MEDS: HYDROcodone Bitartrate/Apap 5/325 Tablet PO ×2 (13:07→20:44)
[2021-06-12] MEDS: Lactated Ringers 1,000 ML 125 ML IV ×2 (14:16→21:03)
--- NOTE | 2021-06-12 14:17 | CHAPLAIN ---
Type of Pastoral Visit _x__ Initial Visit ___ Follow-up Visit ___ On-call Visit ___ General Patient Visit ___ Spiritual Assessment ___ Family Conference ___ Bereavement ___ Rapid Response ___ Code Blue ___ Other (describe below) Pastoral Care Referral From _x__ Patient x Family ___ Nurse ___ Physician ___ Patient Resource Coordinator ___ Science Education Professor ___ Other (describe below) Sacrament/Intervention _x__ Active listening ___ Anointing ___ Lutheran ___ Bereavement ___ Communion _x__ Kim exploration ___ ___ Life review _x__ Prayer ___ Reconciliation ___ Sacrament of Sick _x__ Supportive presence ___ Wedding ___ Other (describe below) Pastoral Comments patient is known to this superior court justice and patient asks for support in spiritual and emotional ways; pt is awake and spouse is at his side; both relate about surgery and perspective on health; kim in God is important for pt and he speaks of that; prayer and presence of this superior court justice is welcomed
[2021-06-12] MEDS: Morphine 2 MG/ML Syringe IV (15:55)
[2021-06-12] MEDS: Docusate Sodium 100 MG Capsule 200 MG PO (20:43)
[2021-06-12] MEDS: hydroCHLOROthiazide 12.5mg 12.5 MG PO (20:43)
[2021-06-12] MEDS: Famotidine 20 MG Tablet 40 MG PO (20:44)
[2021-06-12] MEDS: 0.9% Saline Lock 10 ML Syringe IV (20:46)
[2021-06-12] MEDS: Allopurinol 100 MG Tablet 200 MG PO (21:01)
[2021-06-13] VITALS (10 sets, daily range): BP systolic 102–119; BP diastolic 63–73; PULSE 54–82; RESP 16–18; TEMP 36.4–37.2; O2SAT 93–97
[2021-06-13] MEDS: Acetaminophen 325 MG Tablet PO ×2 (02:38→23:19)
[2021-06-13] MEDS: Lactated Ringers 1,000 ML 125 ML IV (02:39)
[2021-06-13 05:23] LABS: Hematocrit 30.1 % (40-54); Hemoglobin 10.2 g/dL (13.0-16.5); Mean Corp Hgb Conc 33.9 g/dL (32-36); Mean Corpuscular Hgb 33.2 pg (27.0-32.0); Mean Platelet Vol. 9.4 fl (6.2-12.0); Platelet Count 144 K/mm3 (150-450); RBC Distribution Width CV 13.5 % (11.6-14.6); RBC Distribution Width SD 48.2 fl (35.1-43.9); Red Blood Count 3.07 M/mm3 (4.6-6.2); White Blood Count 6.2 K/mm3 (4.4-11.0)
[2021-06-13 05:45] LABS: Anion Gap 7 (5-15); BUN 17 mg/dL (7-18); BUN/Creat Ratio 17.1 RATIO (10-20); Calcium,Total 7.4 mg/dL (8.5-10.1); Chloride 102 mmol/L (98-107); EST Glomerular Filtration Rate 79 mL/min (>60); Est Glom Filt Rate - Afr Amer 95 mL/min (>60); Estimated Creatinine Clearance 70.97 ml/min; Glucose 138 mg/dL (74-106); Potassium 3.3 mmol/L (3.5-5.1); Sodium Level 135 mmol/L (136-145)
--- NOTE | 2021-06-13 06:51 | EKG12_ITS ---
Test Reason : CP Blood Pressure : / mmHG Vent. Rate : 059 BPM Atrial Rate : 059 BPM P-R Int : 164 ms QRS Dur : 098 ms QT Int : 436 ms P-R-T Axes : 031 010 -02 degrees QTc Int : 431 ms Sinus bradycardia Inferior infarct , age undetermined Abnormal ECG When compared with ECG of 10-JUN-2021 08:55, Inferior infarct is now Present Nonspecific T wave abnormality now evident in Inferior leads Confirmed by SAPNA ACOSTA, MARLON ([id number]), photograph editor MAGGIE ENCARNACION ([id number]) on 06/17/2021 1:58:17 PM Referred By: Eduardo Wilhelm Confirmed By:MARLON ALEJO MD
--- NOTE | 2021-06-13 07:43 | PN.URO_ITS ---
Subjective Subjective s/p left partial nephrectomy for renal mass yesturday did well over night but this am did have episode of chest tightness with pain into left are ad up neck looks classic for some cardiac ischemia? EKG no majoy changes, clinically stable will start on baby aspirin, but unfortunately will post op partial he can NOT be anticoagulated (unless clinical status changes) will consult hospitalist d/c loy, discharge pending cardiac status Objective Data Objective Data Vital Signs: Vital Signs Temp Pulse Resp BP Pulse Ox 97.5 F L 64 18 111/64 96 06/13/21 06:45 06/13/21 06:45 06/13/21 06:45 06/13/21 06:45 06/13/21 06:45 Oxygen Flow Rate (L/min) 4 Oxygen Delivery Method Room Air Weight: 91 kg Body Mass Index (BMI) 28.8 Intake & Output: Intake and Output for Last 24 Hours 06/11/21 06/12/21 06/13/21 23:59 23:59 23:59 Intake Total 3494.92 / 3494.92 700 / 700 Output Total 710 / 935 450 / 450 Balance 2784.92 / 2559.92 250 / 250 Lab / Micro Data Result Diagrams: 06/13/21 04:49 06/13/21 04:49 Labs: Laboratory Results - last 24 hr 06/12/21 11:01: WBC 4.3 L, RBC 3.51 L, Hgb 11.5 L, Hct 34.0 L, MCV 96.9 H, MCH 32.8 H, MCHC 33.8, RDW Std Deviation 48.0 H, RDW Coeff of Tin 13.6, Plt Count 128 L, MPV 9.0 06/12/21 11:01: Sodium 136, Potassium 3.5, Chloride 101, Carbon Dioxide 28.0, Anion Gap 7, BUN 17, Creatinine 0.90, Estim Creat Clear Calc 78.86, Est GFR (MDRD) Af Amer 106, Est GFR (MDRD) Non-Af 88, BUN/Creatinine Ratio 18.8, Glucose 130 H, Calcium 8.1 L 06/13/21 04:49: WBC 6.2, RBC 3.07 L, Hgb 10.2 L, Hct 30.1 L, MCV 98.0 H, MCH 33.2 H, MCHC 33.9, RDW Std Deviation 48.2 H, RDW Coeff of Tin 13.5, Plt Count 144 L, MPV 9.4 06/13/21 04:49: Sodium 135 L, Potassium 3.3 L, Chloride 102, Carbon Dioxide 26.0, Anion Gap 7, BUN 17, Creatinine 1.00, Estim Creat Clear Calc 70.97, Est GFR (MDRD) Af Amer 95, Est GFR (MDRD) Non-Af 79, BUN/Creatinine Ratio 17.1, Gl ucose 138 H, Calcium 7.4 L Micro: Microbiology 06/10/21 08:53 Interface Orders SARS-CoV-2 Antigen (Rapid) - Final
--- NOTE | 2021-06-13 07:46 | CON.PCM.HO_ITS ---
Assessment & Plan Assessment/Plan (1) Chest pain, atypical: PLAN: MARIA LUZ COHEN, is a 70 M with history of hypertension, dyslipidemia and supraventricular arrhythmia and coronary artery disease as per CT coronary calci um score is being evaluated by atypical chest pain with radiation to left arm. Twelve-lead EKG done in the morning shows sinus bradycardia at 59 bpm, old inferior infarct, QTC 431 ms. QRS 98 ms. No significant from prior EKG of June 10, 2021 and February. Patient had 2 prior stress echoes, first 02-12 and then 12/13/2017 and was negative for stress-induced ischemia with excellent functional aerobic capacity. Patient also had 24 hours Holter monitor for possible SVT and was started on DVT IgM in January 2021. Holter Holter monitor demonstrated average heart rate of 71 with minimal 49 bpm, maximum 123 bpm Patient has been evaluated by Dr. Klein in the office last time in February 2021. Patient had CT calcium score in March 2021 and reported total score of 1219 which is about 88 percentile of the total population for the age group 70-74. Indirectly this represents atherosclerotic heart disease. 1. Atypical chest pain history of supraventricular tachycardia arrhythmia: Patient is being admitted on MedSurg floor under telemetry by Dr. Wilhelm. Chest pain tightness is almost resolved. Serial troponin enzymes ordered. Current and previous EKGs, stress echo and coronary calcium score reviewed as described in HPI. 1 dose baby aspirin 81 mg to chew, low-dose hold if heart rate less than 60/min and if persistently low between 60-70/m, can decrease the dose to 25 mg twice daily in consultation his PCP 12.5 mg twice daily with holding parameters and nitroglycerin ointment 1 inch. Patient has sinus bradycardia therefore may not be able to tolerate beta-tia. Careful monitoring. Further recommendation as per results of all. Mild hypokalemia: Potassium replacement ordered. Ordered magnesium and phosphorus. Calcium is low 7.4. Serum albumin ordered 2. Left solid renal mass status post robotic laparoscopic partial nephrectomy: Dr. Wilhelm is very concerned about anticoagulation that he might bleed but I think he does not need it. Incentive spirometry. Rest as per Dr. Wilhelm recommendation H&H 10.2/30%. Platelet count is 1 44,000. 3. Hypertension and dyslipidemia: Blood pressure is normal 111/64, heart rate 64. Patient had recent fasting profile on May 17, 2021, total cholesterol 212, LDL 151. Patient on atorvastatin 40 mg daily and continued. VTE prophylaxis: Bilateral SCDs Total time of the visit including total time spent in counseling or coordination of care, (more than 50% of the total time, spent in obtaining medical information from nurses and other ancillary care providers,explaining to the patient about labs, imaging, diagnosis and management), , review of labs and imaging is 40 minutes. HPI Consult Data Date of Consult: 06/13/21 HPI Narrative Reason for Consultation: Chest pain with radiation to left arm at 7 AM today HPI Narrative: MARIA LUZ COHEN, is a 70 M with history of hypertension, dyslipidemia and supraventricular arrhythmia and coronary artery disease as per CT coronary calcium score was admitted electively for left kidney mass by Dr. Louise nixon. Patient had 3 cm solid lower pole renal mass and had laparoscopic robotic assisted partial nephrectomy on 06/12/2021. I talked to urologist Dr. Wilhelm and he said surgery was uncomplicated under general anesthesia. Patient has Kelley catheter which is draining clear urine. Patient described chest tightness that was on the left side of chest radiation to left arm started about 6AM and persisted for some time then completely resolved at 7:30 AM. Patient also felt dizzy and lightheaded and nauseated shortness of breath. Twelve-lead EKG done in the morning shows sinus bradycardia at 59 bpm, old inferior infarct, QTC 431 ms. QRS 98 ms. No significant from prior EKG of June 10, 2021 and February. Patient had 2 prior stress echoes, first -2021 and then 12/13/2017 and was negative for stress-induced ischemia with excellent functional aerobic capacity. Patient also had 24 hours Holter monitor for possible SVT and was started on DVT IgM in January 2021. Holter Holter monitor demonstrated average heart rate of 71 with minimal 49 bpm, maximum 123 bpm Patient has been evaluated by Dr. Klein in the office last time in February 2021. Patient had CT calcium score in March 2021 and reported total score of 1219 which is about 88 percentile of the total population for the age group 70-74. Indirectly this represents atherosclerotic heart disease. The patient has history of occasional chest tightness in the past on exertion relieved with rest and breathing. [facility] Medical History Cardiology follow-up encounter Chronic cough Closed left hip fracture Difficulty swallowing Eczema Essential hypertension Fracture of radial head, left, closed Fracture of right patella Fracture of right radius GERD (gastroesophageal reflux disease) Gout History of echocardiogram History of renal disease History of stress test Hyperlipidemia Hyperuricemia IBS (irritable bowel syndrome) Migraine headache Non-smoker Obesity Osteopenia Osteoporosis Personal history of supraventricular tachycardia Seasonal allergies Wears glasses Wears hearing aid Home Medications allopurinol 200 mg PO DAILY 12/13/17 [History Last Taken 03/18/18] calcium carbonate 1,000 mg PO DAILY@0800 03/22/18 [History Last Taken Unknown] loratadine 10 mg tablet 10 mg PO DAILY 04/05/20 [History Last Taken Unknown] cholecalciferol (vit D3) 1,000 unit-vitamin K2 (MK4) 100 mcg tablet 1 tab PO DAILY 02/20/21 [History Last Taken Unknown] colchicine 0.6 mg capsule 0.6 mg PO DAILY PRN 02/20/21 [History Last Taken Unknown] diltiazem HCl 60 mg capsule,extended release 12 hr 60 mg PO DAILY cap 02/20/21 [History Last Taken 06/12/21] hydrochlorothiazide 12.5 mg capsule 12.5 mg PO BID cap 02/20/21 [History Last Taken Unknown] indomethacin 50 mg capsule 50 mg PO BID PRN 02/20/21 [History Last Taken Unknown] lisinopril 20 mg tablet 20 mg PO BID tab 02/20/21 [History Last Taken 06/12/21] magnesium oxide 400 mg PO DAILY 02/20/21 [History Last Taken Unknown] ubrogepant 100 mg tablet 100 mg PO ONCE PRN tab 02/20/21 [History Last Taken Unknown] zoledronic acid 5 mg/100 mL in mannitol 5 %-water intravenous piggybck 5 ea .ROUTE .YEARLY PRN ml 02/27/21 [History Last Taken 03/13/21] atorvastatin 40 mg PO QPM 06/07/21 [History Last Taken Unknown] famotidine 40 mg PO BID 06/07/21 [History Last Taken 06/12/21] docusate sodium [Colace] 100 mg PO BID #20 cap 06/12/21 [Rx Last Taken Unknown] oxycodone-acetaminophen 1 tab PO Q4H PRN 7 Days #14 tab 06/12/21 [Rx Last Taken Unknown] Allergy/AdvReac Type Severity Reaction Status Date / Time Egg Derived Allergy Food Verified 06/12/21 06:28 Allergy Penicillins Allergy Anaphylaxis Verified 06/12/21 06:28 Milk Containing Products AdvReac Diarrhea Verified 06/12/21 06:28 STEROIDS AdvReac hypertensiv Uncoded 06/12/21 12:10 e Family History Mother Diabetes Dementia Heart disease tachycardia Father Heart disease Leukemia Surgical History History of hip surgery History of mandibular surgery Social History household members: spouse current occupational status: retired Smoking Status: Never smoker alcohol intake: current alcohol intake frequency: a few times a week Alcohol type: beer substance use type: does not use diet: lactose free caffeine: No what type of physical activity do you participate in: walking and bicycling frequency: 3-4 times per week ROS ROS Narrative Constitutional: No fever. Mild fatigue. HEENT: Reports systems reviewed and no addt'l complaints, except as documented Respiratory/Chest: As described in HPI Gastrointestinal: Denies coffee ground emesis, hematemesis or vomiting Genitourinary: Has Kelley catheter. As described in HPI. Musculoskeletal: Reports mild joint pain, in knees chronic Neurologic: Denies seizure-like activity skin: No ulcer. No rash Endocrinology: Reports systems reviewed and no addt'l complaints, except as documented Hematologic/Lymphatic: Reports systems reviewed and no addt'l complaints, except as documented Rest 14 ROS are negative except as mentioned in HPI Physical Exam Narrative General: Alert, Oriented x3, Cooperative HEENT: Atraumatic, PERRLA, EOMI, Normocephalic Oral: No Gingival or Mucosal Lesions/ Ulcerations Neck: Supple, No JVD, Negative Carotid Bruits Lungs: Air entry diminished in bilateral lung bases. No crepitation/rhonchi Cardiovascular: Regular rate, Regular Rhythm, Normal S1, Normal S2,grade 2/6 LLSB systolic murmur Abdomen: Bowel Sounds Present, Soft, Non Tender, Non-Distended : Kelley catheter draining clear urine. Mild tenderness over left flank. Laparoscopic ports dressing are dry. No suprapubic tenderness. Extremities: No edema, Capillary Refill Less than 3 Seconds Skin: No rashes, No breakdown Musculoskeletal: No Tenderness to Palpation of Joints or Extremities Neurological: Cranial nerves II-XII grossly intact, DTR 2+/4 and Symmetrical, Neuro grossly intact Psych/Mental Status: Normal Affect, Appropriate Lab / Micro Data Result Diagrams: 06/13/21 04:49 06/13/21 04:49 Labs: Laboratory Results - last 24 hr 06/12/21 11:01: WBC 4.3 L, RBC 3.51 L, Hgb 11.5 L, Hct 34.0 L, MCV 96.9 H, MCH 32.8 H, MCHC 33.8, RDW Std Deviation 48.0 H, RDW Coeff of Tin 13.6, Plt Count 128 L, MPV 9.0 06/12/21 11:01: Sodium 136, Potassium 3.5, Chloride 101, Carbon Dioxide 28.0, Anion Gap 7, BUN 17, Creatinine 0.90, Estim Creat Clear Calc 78.86, Est GFR (MDRD) Af Amer 106, Est GFR (MDRD) Non-Af 88, BUN/Creatinine Ratio 18.8, Glucose 130 H, Calcium 8.1 L 06/13/21 04:49: WBC 6.2, RBC 3.07 L, Hgb 10.2 L, Hct 30.1 L, MCV 98.0 H, MCH 33.2 H, MCHC 33.9, RDW Std Deviation 48.2 H, RDW Coeff of Tin 13.5, Plt Count 144 L, MPV 9.4 06/13/21 04:49: Sodium 135 L, Potassium 3.3 L, Chloride 102, Carbon Dioxide 26.0, Anion Gap 7, BUN 17, Creatinine 1.00, Estim Creat Clear Calc 70.97, Est GFR (MDRD) Af Amer 95, Est GFR (MDRD) Non-Af 79, BUN/Creatinine Ratio 17.1, Glucose 138 H, Calcium 7.4 L Charges/Coding Visit Charges Office Visits / Consults: 17550 OP Consult L4
[2021-06-13 08:02] LABS: Troponin-I HS 6 pg/mL (3.0-78.0)
[2021-06-13] MEDS: Aspirin 81 MG TAB.CHEW PO (08:57)
[2021-06-13] MEDS: Famotidine 20 MG Tablet 40 MG PO ×2 (08:57→23:16)
[2021-06-13] MEDS: Loratadine 10 MG Tablet PO (08:58)
[2021-06-13] MEDS: Magnesium Chloride 64 MG Delay Rel.Tablet 128 MG PO (08:58)
[2021-06-13] MEDS: Docusate Sodium 100 MG Capsule 200 MG PO ×2 (08:58→23:15)
[2021-06-13 09:09] LABS: Troponin-I HS 6 pg/mL (3.0-78.0)
[2021-06-13] MEDS: Metoprolol Tartrate 25 MG Tablet 12.5 MG PO ×2 (09:10→23:16)
--- NOTE | 2021-06-13 09:30 | EKG12_ITS ---
Test Reason : CP Blood Pressure : / mmHG Vent. Rate : 053 BPM Atrial Rate : 053 BPM P-R Int : 172 ms QRS Dur : 094 ms QT Int : 432 ms P-R-T Axes : 018 -01 007 degrees QTc Int : 405 ms Sinus bradycardia Otherwise normal ECG When compared with ECG of 13-JUN-2021 07:17, MANUAL COMPARISON REQUIRED, DATA IS UNCONFIRMED Confirmed by SAPNA ACOSTA, MARLON ([id number]), editor map MAGGIE ENCARNACION ([id number]) on 06/17/2021 1:58:31 PM Referred By: Eduardo Wilhelm Confirmed By:MARLON ALEJO MD
[2021-06-13 11:08] LABS: AST(SGOT) 24 U/L (15-37); Alanine Aminotransfer ALT/SGPT 27 U/L (16-61); Alkaline Phosphatase 49 U/L (45-117); Bilirubin, Direct 0.22 mg/dL (0.00-0.30); Globulin 2.4 g/dL (2.2-4.2); Magnesium 2.1 mg/dL (1.6-2.6); Protein, Total 5.4 g/dL (6.4-8.2); Troponin-I HS 6 pg/mL (3.0-78.0)
[2021-06-13] MEDS: Potassium Chloride Oral Tablet 20 MEQ 40 MEQ PO ×2 (11:18→15:10)
[2021-06-13 11:29] LABS: Phosphorus 2.8 mg/dL (2.5-4.9)
--- NOTE | 2021-06-13 15:36 | CASEMGMT ---
AILIN HAYNES in to discuss SCHAFFER form with patient and who is at bedside. RN IVY explained SCHAFFER form, patient voiced understanding. Pt signed form and filed in chart. Pt provided with a copy of signed SCHAFFER form. Patient had no further questions or concerns at this time.
--- NOTE | 2021-06-13 16:30 | CHAPLAIN ---
Type of Pastoral Visit ___ Initial Visit _x__ Follow-up Visit ___ On-call Visit ___ General Patient Visit ___ Spiritual Assessment ___ Family Conference ___ Bereavement ___ Rapid Response ___ Code Blue ___ Other (describe below) Pastoral Care Referral From _x__ Patient _x__ Family ___ Nurse ___ Physician ___ Tray Casting Machine Operator ___ Bilingual Account Manager ___ Other (describe below) Sacrament/Intervention _x__ Active listening ___ Anointing ___ Uatsdin ___ Bereavement ___ Communion ___ Kim exploration ___ ___ Life review ___ Prayer ___ Reconciliation ___ Sacrament of Sick _x__ Supportive presence ___ Wedding ___ Other (describe below) Pastoral Comments
[2021-06-13] MEDS: Tamsulosin HCl 0.4 MG Capsule 0.8 MG PO (20:48)
[2021-06-13] MEDS: Allopurinol 100 MG Tablet 200 MG PO (23:17)
[2021-06-14 03:07] VITALS: BP 111/69; PULSE 73; RESP 18; TEMP 37.1; O2SAT 93
[2021-06-14 08:30] VITALS: BP 95/57; PULSE 65; RESP 16; TEMP 36.9; O2SAT 98
--- NOTE | 2021-06-14 10:12 | PCM.PN.HOSP ---
Subjective Subjective Doing well, no issues overnight. Chest pressure has completely resolved. Work-up has been negative, he recently had a stress echo which was unremarkable in March, and troponins were all negative. Objective Data Objective Data Vital Signs: Vital Signs Temp Pulse Resp BP Pulse Ox 98.4 F 65 16 95/57 L 98 06/14/21 08:30 06/14/21 08:30 06/14/21 08:30 06/14/21 08:30 06/14/21 08:30 Oxygen Flow Rate (L/min) 4 Oxygen Delivery Method Room Air Weight: 200 lb 9.93 oz Body Mass Index (BMI) 28.8 Intake & Output: Intake and Output for Last 24 Hours 06/13/21 06/14/21 06/15/21 03:59 03:59 03:59 Intake Total 4194.92 / 4194.92 1745.83 / 1745.83 300 / 300 Output Total 935 / 935 875 / 875 1600 / 1600 Balance 3259.92 / 3259.92 870.83 / 870.83 -1300 / -1300 Lab / Micro Data Result Diagrams: 06/13/21 04:49 06/13/21 04:49 Labs: Laboratory Results - last 24 hr 06/10/21 09:35: Crossmatch See Detail 06/13/21 10:28: Magnesium 2.1, Total Bilirubin 0.80, Direct Bilirubin 0.22, AST 24, ALT 27, Alkaline Phosphatase 49, Troponin I High Sens 6, Total Protein 5.4 L, Albumin 3.0 L, Globulin 2.4 06/13/21 10:28: Phosphorus 2.8 Micro: Microbiology 06/10/21 08:53 Interface Orders SARS-CoV-2 Antigen (Rapid) - Final Physical Exam Const alert, oriented x3 and no apparent distress General Appearance: cooperative HEENT normocephalic and moist oral mucous membranes Eyes PERRL, EOMs intact bilaterally and conjunctivae normal Neck supple and no JVD Resp normal respiratory effort, no retractions, no use of accessory muscles and clear to auscultation bilaterally Auscultation: Negative for crackles, rales, rhonchi or wheezes Cardio regular rate, regular rhythm, S1 normal heart sound and S2 normal heart sound Heart Sounds: murmur GI soft to palpation, non-tender and non-distended; Negative for hepatosplenomegaly Extremity no clubbing, cyanosis or edema Skin no rashes or lesions noted Neuro no focal motor deficits and no sensory deficits noted Psych affect normal Appearance: appropriate Assessment & Plan Assessment/Plan (1) Chest pain, atypical: PLAN: 1. Atypical chest pain history of supraventricular tachycardia arrhythmia: Patient is being admitted on [facility] floor under telemetry by Dr. Wilhelm. Chest pain tightness is almost resolved. Serial troponin enzymes ordered. Current and previous EKGs, stress echo and coronary calcium score reviewed as described in HPI. 1 dose baby aspirin 81 mg to chew, low-dose hold if heart rate less than 60/min and if persistently low between 60-70/m, can decrease the dose to 25 mg twice daily in consultation his PCP 12.5 mg twice daily with holding parameters and nitroglycerin ointment 1 inch. Patient has sinus bradycardia therefore may not be able to tolerate beta-tia. Careful monitoring. Further recommendation as per results of all. Mild hypokalemia: Potassium replacement ordered. Ordered magnesium and phosphorus. Calcium is low 7.4. Serum albumin ordered 06/14/2021: Chest pain is noncardiac, recent work-up was negative and he had a stress echo in March which was unremarkable. Pain is resolved. 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 Left solid renal mass status post robotic laparoscopic partial nephrectomy: Dr. Wilhelm is very concerned about anticoagulation that he might bleed but I think he does not need it. Incentive spirometry. Rest as per Dr. Wilhelm recommendation H&H 10.2/30%. Platelet count is 1 44,000. 3. Hypertension and dyslipidemia: Blood pressure is normal 111/64, heart rate 64. Patient had recent fasting profile on May 17, 2021, total cholesterol 212, LDL 151. Patient on atorvastatin 40 mg daily and continued. Will follow peripherally VTE prophylaxis: Bilateral SCDs Charges/Coding Visit Charges OBSV E&M: 14281 Subsequent observation care L2
[2021-06-14] MEDS: Famotidine 20 MG Tablet 40 MG PO (10:26)
[2021-06-14] MEDS: Docusate Sodium 100 MG Capsule 200 MG PO (10:26)
[2021-06-14] MEDS: Loratadine 10 MG Tablet PO (10:26)
[2021-06-14] MEDS: Tamsulosin HCl 0.4 MG Capsule 0.8 MG PO (10:27)
[2021-06-14] MEDS: Magnesium Chloride 64 MG Delay Rel.Tablet 128 MG PO (10:28)
[2021-06-14] MEDS: Potassium Chloride Oral Tablet 20 MEQ 40 MEQ PO (10:32)
--- NOTE | 2021-06-14 12:20 | CHAPLAIN ---
Type of Pastoral Visit ___ Initial Visit _x__ Follow-up Visit ___ On-call Visit ___ General Patient Visit ___ Spiritual Assessment ___ Family Conference ___ Bereavement ___ Rapid Response ___ Code Blue ___ Other (describe below) Pastoral Care Referral From _x__ Patient _x__ Family ___ Nurse ___ Physician ___ Wire Chief ___ Psychology Clinician ___ Other (describe below) Sacrament/Intervention __x_ Active listening ___ Anointing ___ Temple ___ Bereavement ___ Communion ___ Kim exploration ___ ___ Life review ___ Prayer ___ Reconciliation ___ Sacrament of Sick ___ Supportive presence ___ Wedding ___ Other (describe below) Pastoral Comments patient and spouse walking in the room; stopped and had casual conversation, offer of support
[2021-06-14 14:11] VITALS: BP 103/57; PULSE 88; RESP 16; TEMP 36.9; O2SAT 96
--- NOTE | 2021-06-14 16:15 | DS.PCM_ITS ---
Providers Date of Admission: 06/12/21 Primary Care Physician: Dr. Arnaldo Casiano MD Consultations 06/13/21 07:55 Consult: Hospitalist Routine Consulting Provider: Raul Eddy Reason for Consult: chest pain EMERGENT Consult: No MD Notified: Yes Date Notified: 06/13/21 Time Notified: 07:55 Method of Notification: doctors spoke with each Reason For Visit: ROBOTIC PARTIAL NEPHRECTOMY Diagnosis Discharge Diagnosis (1) Chest pain, atypical: Status: Acute Code(s): R07.89 - Other chest pain Medications at Discharge Home Medications allopurinol 200 mg PO DAILY 12/13/17 calcium carbonate 1,000 mg PO DAILY@0800 03/22/18 loratadine 10 mg tablet 10 mg PO DAILY 04/05/20 cholecalciferol (vit D3) 1,000 unit-vitamin K2 (MK4) 100 mcg tablet 1 tab PO DAILY 02/20/21 colchicine 0.6 mg capsule 0.6 mg PO DAILY PRN 02/20/21 diltiazem HCl 60 mg capsule,extended release 12 hr 60 mg PO DAILY cap 02/20/21 hydrochlorothiazide 12.5 mg capsule 12.5 mg PO BID cap 02/20/21 indomethacin 50 mg capsule 50 mg PO BID PRN 02/20/21 lisinopril 20 mg tablet 20 mg PO BID tab 02/20/21 magnesium oxide 400 mg PO DAILY 02/20/21 ubrogepant 100 mg tablet 100 mg PO ONCE PRN tab 02/20/21 zoledronic acid 5 mg/100 mL in mannitol 5 %-water intravenous piggybck 5 ea .ROUTE .YEARLY PRN ml 02/27/21 atorvastatin 40 mg PO QPM 06/07/21 famotidine 40 mg PO BID 06/07/21 docusate sodium [Colace] 100 mg PO BID #20 cap 06/12/21 oxycodone-acetaminophen 1 tab PO Q4H PRN 7 Days #14 tab 06/12/21 tamsulosin [Flomax] 0.4 mg PO QHS #30 cap 06/14/21 Hospital Course Summary of Care Provided Hospital Course: 70-year-old male underwent a left robotic partial nephrectomy. Postop course he had some atypical chest pain work-up by hospitalist service was negative for any cardiac ischemia. He will go home the day with pain medicine stool softeners and Flomax, he did an episode of retention of urine re solved with Flomax. Instructed him that it is okay to take statins but I do want him to take any blood thinners for the risk of bleeding from the kidney. Physical Exam Const alert and oriented x3 General Appearance: cooperative HEENT normocephalic and head/scalp atraumatic Eyes PERRL and EOMs intact bilaterally Neck supple, no JVD and no carotid bruits Resp normal respiratory effort, normal air movement and clear to auscultation bilaterally Cardio regular rate and no murmurs GI normal to inspection, nondistended, normoactive bowel sounds and soft to palpat ion Extremity normal capillary refill General Extremity: no tenderness to palpation of joints or extremities; Negative for edema Skin no rashes or lesions noted and no wounds General Skin Exam: no breakdown Neuro CN's II-XII intact bilaterally Psych affect normal Appearance: appropriate Weight / BMI Weight Weight: 91 kg Body Mass Index (BMI) 28.8 ABG / Lab / Microbiology Data Result Diagrams: 06/13/21 04:49 06/13/21 04:49 Laboratory: Laboratory Results - last 24 hr 06/10/21 09:35: Crossmatch See Detail Microbiology: Microbiology 06/10/21 08:53 Interface Orders SARS-CoV-2 Antigen (Rapid) - Final D/C Instructions Discharge Diet: Light diet - advance as tolerated and Soft diet May resume sexual activity in: 6-8 weeks Call your doctor if you observe: Fever of 101 or Higher Cleanse incision/area with: Soap & Water Please Follow Up With: Eduardo Wilhelm MD When: Call [phone] for an appointment Meaningful Use Info Meaningful Use Diagnoses (Choose all that apply): None applicable Discharge Plan Admission Admit Date/Time: 06/12/21 14:33 Primary Reason for Your Visit: left partial nephrectomy Attending Provider: Jack Yepez Primary Care Provider: Arnaldo Casiano Consulting Providers: Eduardo Wilhelm ; Raul Eddy Instructions Patient Instructions: Nephrectomy Dc Discharge Orders/Prescriptions Prescriptions: New docusate sodium [Colace] 100 mg capsule 100 mg PO BID Qty: 20 RF: 0 oxycodone-acetaminophen 5-325 mg tablet 1 tab PO Q4H PRN (Reason: pain) 7 Days Qty: 14 RF: 0 tamsulosin [Flomax] 0.4 mg capsule 0.4 mg PO QHS Qty: 30 RF: 0 Continued loratadine [Claritin] 10 mg tablet 10 mg PO DAILY RF: 0 magnesium oxide 400 mg magnesium capsule 400 mg PO DAILY RF: 0 hydrochlorothiazide 12.5 mg capsule 12.5 mg PO BID RF: 0 lisinopril 20 mg tablet 20 mg PO BID RF: 0 indomethacin 50 mg capsule 50 mg PO BID PRN (Reason: arthritis) RF: 0 colchicine 0.6 mg capsule 0.6 mg PO DAILY PRN (Reason: GOUT) RF: 0 K2 Plus D3 1,000-100 unit-mcg tablet 1 tab PO DAILY RF: 0 Ubrelvy 100 mg tablet 100 mg PO ONCE PRN (Reason: migraines) RF: 0 diltiazem HCl 60 mg capsule,extended release 12 hr 60 mg PO DAILY RF: 0 zoledronic [id number] [Reclast] 5 mg/100 mL piggyback 5 ea .Route .YEARLY PRN (Reason: osteoporosis) RF: 0 allopurinol 100 MG tablet 200 mg PO DAILY RF: 0 calcium carbonate 500 MG tablet 1,000 mg PO DAILY@0800 RF: 0 atorvastatin 40 mg tablet 40 mg PO QPM RF: 0 famotidine 40 mg tablet 40 mg PO BID RF: 0 Referrals / Follow Up: Arnaldo Casiano MD [Primary Care Provider] - Eduardo Wilhelm MD [STAFF PHYSICIAN] - Disposition Discharge Orders: Discharge Patient (Routine); Ordered 06/14/21 Ordered By: Dr. Eduardo Wilhelm
== END 2021-06-14 16:51 | disposition home or self-care (01) ==
LOC: MS3 18:32 → SDC 06-14 11:56
PROVIDERS: Internal Medicine; Admitting Provider Urology; PCP Family Medicine; Referring Provider Urology; Visit Provider Family Medicine
PROC: (CPT 50543; principal; 2021-06-12 07:10)
DX: C64.2 Malignant neoplasm of left kidney, except renal pelvis (principal); R07.89 Other chest pain; I10 Essential (primary) hypertension; M10.9 Gout, unspecified; I25.10 Atherosclerotic heart disease of native coronary artery without angina pectoris; E78.5 Hyperlipidemia, unspecified; R00.1 Bradycardia, unspecified; Z79.899 Other long term (current) drug therapy; K21.9 Gastro-esophageal reflux disease without esophagitis; G47.33 Obstructive sleep apnea (adult) (pediatric); E66.9 Obesity, unspecified; Z68.28 Body mass index [BMI] 28.0-28.9, adult
CPT/HCPCS: 50543; S2900; 00862; 36415; 71046; 80048; 80076; 83735; 84100; 84484; 85027; 86850; 86900; 86901; 86920; 87426; 88307; 88341; 88342; 93005; 96361; 96374; 99218; C9803; J7120; A4216; G0378; J0744; J2405

== ENCOUNTER → 2021-06-28 | Outpatient (CLI) | payer MEDICARE, OTHER, SELFPAY | END | disposition home or self-care (01) | LOC: LABSPEC 12:19 | PROVIDERS: PCP Family Medicine; Referring Provider Family Medicine; Visit Provider Family Medicine | DX: Z20.822 Contact with and (suspected) exposure to COVID-19 (principal) | CPT/HCPCS: 87635; U0003; U0005 ==

== ENCOUNTER 2021-07-03 14:06 | Outpatient (CLI) | payer MEDICARE, OTHER, SELFPAY ==
[2021-07-03 14:20] VITALS: BP 102/66; PULSE 77; RESP 16; TEMP 36.6; O2SAT 99; BMI 28.4
[2021-07-03] MEDS: 0.9% Saline Lock 10 ML Syringe IV ×3 (14:29→14:50)
[2021-07-03] MEDS: BEBTELOVIMAB 175 MG/2 ML VIAL IV (14:47)
[2021-07-03 15:16] VITALS: BP 92/58; PULSE 69; RESP 18; TEMP 36.6; O2SAT 96
[2021-07-03 15:44] VITALS: BP 96/59; PULSE 64; RESP 16; TEMP 36.3; O2SAT 98
== END 2021-07-03 15:47 | disposition home or self-care (01) ==
LOC: MS3OUT 14:07 → MS3 14:08
PROVIDERS: PCP Family Medicine; Visit Provider Nurse Practitioner Adult Health
DX: U07.1 COVID-19 (principal)
CPT/HCPCS: M0222; Q0222; A4216

== ENCOUNTER → 2021-08-16 | Outpatient (CLI) | payer MEDICARE, OTHER, SELFPAY ==
[2021-08-16 12:54] LABS: Lyme Ab Screen Interpretation REF LAB
[2021-08-16 15:07] LABS: Absolute Lymphocyte Count 1.15 X10^3/uL (0.83-4.51); Absolute Neutrophil Count 3.6 X10^3/uL (2.0-7.7); Basophil# 0.03 X10^3/uL; Basophil% 0.6 % (0-1); Eosinophil# 0.12 X10^3/uL; Eosinophils% 2.3 % (0-5); Hematocrit 33.8 % (40-54); Hemoglobin 11.3 g/dL (13.0-16.5); Lymphocyte # 1.15 X10^3/ul (0.83-4.51); Lymphocyte % 21.6 % (19-41); Mean Corp Hgb Conc 33.4 g/dL (32-36); Mean Corpuscular Hgb 31.7 pg (27.0-32.0); Mean Corpuscular Volume 94.9 fL (80-94); Mean Platelet Vol. 9.7 fl (6.2-12.0); Monocyte# 0.43 X10^3/uL; Monocyte% 8.1 % (0-10); NRBC Flagged by Analyzer 0 % (0-5); Neutrophil # 3.59 X10^3/uL (2.7-7.7); Neutrophil % 67.2 % (47-70); Platelet Count 145 K/mm3 (150-450); RBC Distribution Width CV 14.1 % (11.6-14.6); RBC Distribution Width SD 49.2 fl (35.1-43.9); Red Blood Count 3.56 M/mm3 (4.6-6.2); White Blood Count 5.3 K/mm3 (4.4-11.0)
[2021-08-16 15:28] LABS: Bilirubin, Direct 0.27 mg/dL (0.00-0.30); Cholesterol 123 mg/dL (200); High Density Lipoprotein 47 mg/dL; Triglycerides 101 mg/dL; Very Low Density Lipoprotein 20 mg/dL (5-40)
[2021-08-16 15:40] LABS: ALB/GLOB Ratio 1.5 RATIO (0.9-2.4); AST(SGOT) 25 U/L (15-37); Alanine Aminotransfer ALT/SGPT 33 U/L (16-61); Alkaline Phosphatase 68 U/L (45-117); Anion Gap 6 (5-15); BUN 18 mg/dL (7-18); CPK Total, Creatine Kinase 139 U/L (39-308); CRP < 2.90 mg/L (0.0-3.0); Calcium,Total 9.1 mg/dL (8.5-10.1); Chloride 103 mmol/L (98-107); Creatinine, Serum 1.06 mg/dL (0.70-1.30); EST Glomerular Filtration Rate 73 mL/min (>60); Est Glom Filt Rate - Afr Amer 89 mL/min (>60); Globulin 2.7 g/dL (2.2-4.2); Glucose 89 mg/dL (74-106); Potassium 3.6 mmol/L (3.5-5.1); Protein, Total 6.7 g/dL (6.4-8.2); Sodium Level 139 mmol/L (136-145); Thyroid Stim Hormone (TSH) 1.03 uIU/mL (0.358-3.74)
[2021-08-19 13:18] LABS: Lyme Scn Total Ab w/Rflx Negative (Negative)
== END | disposition home or self-care (01) ==
PROVIDERS: Internal Medicine Cardiovascular Disease; PCP Family Medicine; Referring Provider Family Medicine; Visit Provider Family Medicine
DX: R53.81 Other malaise (principal); R53.83 Other fatigue; Z78.9 Other specified health status; R41.89 Other symptoms and signs involving cognitive functions and awareness; E78.00 Pure hypercholesterolemia, unspecified; E78.5 Hyperlipidemia, unspecified
CPT/HCPCS: 36415; 80053; 80061; 82140; 82248; 82550; 84443; 85025; 86140; 86618

== ENCOUNTER → 2021-10-10 | Outpatient (CLI) | payer MEDICARE, OTHER, SELFPAY ==
--- NOTE | 2021-10-10 07:45 | RAD_ITS ---
STUDY: X-RAY - ESOPHAGUS (BARIUM SWALLOW) WITH FLUOROSCOPY REASON FOR EXAM: Male, 71 years old. DYSPHAGIA TECHNIQUE: 15 view(s) of the esophagus were obtained following swallowing of barium. FLUOROSCOPY TIME (if supplied): (28 seconds) minutes/seconds COMPARISON: None. FINDINGS: There is no demonstrated esophageal foreign body. There is no demonstrated stricture or mucosal abnormality. Normal gastroesophageal junction, without a demonstrated hiatal hernia. The patient ingested a 12 mm tablet of barium without any difficulty. There is atherosclerotic calcification of the aortic arch with tortuosity of the descending aorta. Normal visualized pulmonary parenchyma. Normal visualized osseous structures of the thorax. RAD/Esophagus Dual Contrast IMPRESSION: Normal plain film x-ray examination (barium swallow) of the esophagus. Electronically Signed: Shimon Alcazar MD at 8:45 EDT ,
== END | disposition home or self-care (01) ==
LOC: RAD 07:31
PROVIDERS: PCP Family Medicine; Referring Provider Family Medicine; Visit Provider Family Medicine
DX: R13.10 Dysphagia, unspecified (principal)
CPT/HCPCS: 74221

== ENCOUNTER → 2021-11-21 | Outpatient (CLI) | payer MEDICARE, OTHER, SELFPAY ==
[2021-11-21 10:46] LABS: Vitamin D,25 Hydroxy 43.6 ng/mL
[2021-11-21 11:04] LABS: ALB/GLOB Ratio 1.2 RATIO (0.9-2.4); AST(SGOT) 20 U/L (15-37); Alanine Aminotransfer ALT/SGPT 30 U/L (16-61); Albumin, Serum 3.8 g/dL (3.2-5.0); Alkaline Phosphatase 69 U/L (45-117); Anion Gap 5 (5-15); BUN 18 mg/dL (7-18); BUN/Creat Ratio 16.5 RATIO (10-20); CPK Total, Creatine Kinase 111 U/L (39-308); CRP < 2.90 mg/L (0.0-3.0); Calcium,Total 9.6 mg/dL (8.5-10.1); Chloride 106 mmol/L (98-107); Cholesterol 136 mg/dL (200); Creatinine, Serum 1.09 mg/dL (0.70-1.30); EST Glomerular Filtration Rate 71 mL/min (>60); Est Glom Filt Rate - Afr Amer 86 mL/min (>60); Globulin 3.1 g/dL (2.2-4.2); Glucose 88 mg/dL (74-106); High Density Lipoprotein 46 mg/dL; Magnesium 2.3 mg/dL (1.6-2.6); Potassium 3.8 mmol/L (3.5-5.1); Protein, Total 6.9 g/dL (6.4-8.2); Sodium Level 141 mmol/L (136-145)
[2021-11-22 13:08] LABS: Anti-Centromere B Ab <0.2 AI (0.0-0.9); Anti-Chromatin <0.2 AI (0.0-0.9); Anti-Jo <0.2 AI (0.0-0.9); Anti-Scleroderma-70 AB <0.2 AI (0.0-0.9); RNP Ab <0.2 AI (0.0-0.9); SJOGREN'S Anti-SS-A test 0.2 AI (0.0-0.9); SJOGREN'S Anti-SS-B test < 0.2 AI (0.0-0.9); Smith Ab <0.2 AI (0.0-0.9)
[2021-11-23 12:25] LABS: Anti-dsDNA Ab <1 IU/mL (0-9)
[2021-11-25 16:09] LABS: PROEL- A/G Ratio 1.6 (0.7-1.7); PROEL- Albumin 4.1 g/dL (2.9-4.4); PROEL- Alpha-1 Globulin 0.3 g/dL (0.0-0.4); PROEL- Alpha-2 Globulin 0.6 g/dL (0.4-1.0); PROEL- Gamma Globulin 0.7 g/dL (0.4-1.8); PROEL- Globulin, Total 2.6 g/dL (2.2-3.9); PROEL- TOTAL PROTEIN 6.7 g/dL (6.0-8.5)
[2021-11-25 18:57] LABS: Perinuclear Ab (P-ANCA) <1:20 titer (Neg:<1:20)
== END | disposition home or self-care (01) ==
LOC: MTLAB 08:31
PROVIDERS: PCP Family Medicine; Referring Provider Family Medicine; Visit Provider Family Medicine
DX: M80.00XA Age-related osteoporosis with current pathological fracture, unspecified site, initial encounter for fracture (principal); E55.9 Vitamin D deficiency, unspecified; M25.50 Pain in unspecified joint; I25.10 Atherosclerotic heart disease of native coronary artery without angina pectoris; R41.82 Altered mental status, unspecified
CPT/HCPCS: 36415; 80053; 82306; 82465; 82550; 83718; 83735; 84165; 86140; 86225; 86235; 86256

== ENCOUNTER → 2021-12-03 | Outpatient (CLI) | payer MEDICARE, OTHER, SELFPAY ==
--- NOTE | 2021-12-03 | TISS_PTH ---
PATIENT: MARIA LUZ COHEN II LOC: [facility] U#:[id number] AGE/SX: 71/M ROOM: RE12/03/[address]: Dr. Aime De La O DDS : 1950 BED: DIS: 12/03/2021 SPEC #: [id number] RECD: 12/03/21 11:11 STATUS: CODY TOM #: [id number] FAY: 12/03/21 00:[address]: Aime De La O DEPT: SURGICAL PATHOLOGY RECD BY: Mary Ferrari ENTERED: 12/03/21 13:23 SP TYPE: Tissue Bx JÚNIOR DR: Dr. Arnaldo Casiano MD Tissues: Palate, NOS Procedures: Surgery Specimen Level IV HEADER OPERATION: Hard palate biopsy PRE-OP DIAGNOSIS: Brown macular lesion, rule out melanoma TISSUE SUBMITTED: Palate MICROSCOPIC DIAGNOSIS Lesion of hard palate, biopsy: Fibrosis with pigment incontinence. No evidence of malignancy. See comment. AM:jeanne 12/04/2021 COMMENT Immunohistochemistry ([id number]) supports the above diagnosis. Iron stain with matched control is negative. MICROSCOPIC DESCRIPTION Slides are reviewed. GROSS DESCRIPTION Received in fixative is one container labeled with the patient's name and designated upper left palate. The specimen consists of one cylindrical fragment of sin tissue measuring 0.4 cm in diameter and 0.2 cm in thickness. The specimen is totally submitted in one cassette. / AM:jeanne 12/03/2021 TC:5 CPT: 00399 ,88452
--- NOTE | 2021-12-03 | IMM_PTH ---
PATIENT: MARIA LUZ COHEN II LOC: [facility] U#:[id number] AGE/SX: 71/M ROOM: RE12/03/[address]: Dr. Aime De La O DDS : 1950 BED: DIS: 12/03/2021 SPEC #: [id number] RECD: 12/04/21 13:15 STATUS: CODY REQ #: [id number] FAY: 12/03/21 00:[address]: Aime De La O DEPT: IMMUNOHISTOCHEMISTRY RECD BY: Christine Yoo ENTERED: 12/04/21 13:17 SP TYPE: IMMUNO OTHR DR: Dr. Arnaldo Casiano MD Tissues: Palate, NOS Procedures: CD56 (add) MACRO (add) P53 (add) Vimentin (add) NEUROFIL (add) Pankeratin (initial) MELAN-A (add) P40 (add) S-100 (add) PHYSICIAN [facility] INSTITUTION [address] [address] SPECIMEN INFORMATION: Tissue Source: Hard palate biopsy Clinical Info: Brown macular lesion Specimen Number: [id number] CPT code: 73765, 70799 x8 METHODOLOGY: Deparaffinized sections of prefer/formalin-fixed tissue or PAP/DQ stained slides are incubated with monoclonal/polyclonal antibodies/oligonucleotide probes. Localization is made via biotin free immunoperoxidase method. Appropriate controls are performed and reacted as expected. Results on target cell population are indicated in the following table: RESULTS: ANTIBODY / CLONE RESULT AE1-3 (AE1/AE3/PCK26) negative Vimentin (V9) positive Macro (HAM-56) negative Melan A (A103) negative S-100 (4C4.9) negative Neurofil (2F11) negative CK5-6 (D5 & 1684) negative P40 (BC28) negative P53 (DO-7) negative These tests were developed and their performance characteristics determined by [facility]. They may not have been cleared or approved by the U.S. Food and Drug Administration. The FDA has determined that such clearance or approval is not necessary. The above immunohistochemical/dualISH markers are ordered and reviewed by the Pathologist. INTERPRETATION: Lesion of hard palate, biopsy: No evidence of melanoma. AM:jeanne 12/05/2021
== END | disposition home or self-care (01) ==
PROVIDERS: PCP Family Medicine; Visit Provider Dentist Oral and Maxillofacial Surgery
DX: L98.9 Disorder of the skin and subcutaneous tissue, unspecified (principal)
CPT/HCPCS: 88305; 88341; 88342

== ENCOUNTER 2021-12-18 15:48 | Emergency (ER) | payer MEDICARE, OTHER, SELFPAY ==
[2021-12-18 15:49] VITALS: BP 134/69; PULSE 63; RESP 16; TEMP 36.8; O2SAT 97; BMI 29.4
[2021-12-18 15:57] VITALS: BP 124/76; PULSE 62; RESP 15; O2SAT 98
--- NOTE | 2021-12-18 16:01 | EKG12_ITS ---
Test Reason : CP Blood Pressure : / mmHG Vent. Rate : 064 BPM Atrial Rate : 064 BPM P-R Int : 162 ms QRS Dur : 096 ms QT Int : 404 ms P-R-T Axes : 050 029 053 degrees QTc Int : 416 ms Normal sinus rhythm Normal ECG Confirmed by PHANI ACOSTA, CÉSAR ([id number]), city editor MAGGIE ENCARNACION ([id number]) on 12/24/2021 9:30:03 A M Referred By: BG/DELPHINE Confirmed By:GILMAR JERONIMO MD
[2021-12-18 16:03] VITALS: O2SAT 98
--- NOTE | 2021-12-18 16:08 | ED.VIS.CHEST ---
HPI History of Present Illness Chief Complaint: Chest Pain Informant: patient Onset/Context/Timing Onset: Today Activity at onset: sudden Timing: Intermittent Quality: Positive for Sharp Location: Left Parasternal Current Severity: Gone Maximum Severity: Mild Worsened By: Nothing Relieved By: Nothing Associated Symptoms: Negative for Nausea, Vomiting, Diaphoresis, Dyspnea, Cough, Fever, Lightheadedness, Acid Reflux or Palpitations Narrative Narrative: 71-year-old male history of hypertension reflux. No cardiac disease. Patient had a CAT scan for calcifications recently after that they did a stress test says it was negative and he did not need a heart cath. That was done about 3 to 4 months ago he thought. Denies any recent exertional chest pain or exertional dyspnea. He has never had a DVT or PE. No leg pain or swelling. No hemoptysis. No recent travel, surgery or immobilization. 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 He had some intermittent sharp stabbing left-sided chest discomfort. Sometimes it occurs when he coughed of the times it was not. It is not associated with deep breathing. Currently symptom-free. Said he is at episodes are very brief lasting seconds and are not associated with exertion. Prior Similar Symptoms: No Recent Illness/Hospitalization: No CVD Risk Factors: Positive for Hypertension PE Risk Factors: Negative for Recent Travel/Surgery, Recent Immobilization, Prior DVT or PE, Cancer or OCP + Smoking + >/=35 TAD Risk Factors: Negative for Marfan's Syndrome [facility] Medical History Cardiology follow-up encounter Chronic cough Closed left hip fracture Difficulty swallowing Eczema Essential hypertension Fracture of radial head, left, closed Fracture of right patella Fracture of right radius GERD (gastroesophageal reflux disease) Gout History of echocardiogram History of renal disease History of stress test Hyperlipidemia Hyperuricemia IBS (irritable bowel syndrome) Migraine headache Non-smoker Obesity Osteopenia Osteoporosis Personal history of supraventricular tachycardia Seasonal allergies Wears glasses Wears hearing aid Home Medications allopurinol 100 mg tablet 200 mg PO DAILY gout 12/13/17 [History Last Taken 03/18/18] calcium carbonate 500 mg calcium (1,250 mg) tablet 1,000 mg PO DAILY@0800 supplement 03/22/18 [History Last Taken Unknown] loratadine 10 mg tablet (Claritin) 10 mg PO DAILY allergies 04/05/20 [History Last Taken Unknown] cholecalciferol (vit D3) 1,000 unit-vitamin K2 (MK4) 100 mcg tablet (K2 Plus D3) 1 tab PO DAILY supplement 02/20/21 [History Last Taken Unknown] diltiazem HCl 60 mg capsule,extended release 12 hr 60 mg PO DAILY heart rate 02/20/21 [History Last Taken 06/12/21] hydrochlorothiazide 12.5 mg capsule 12.5 mg PO BID 02/20/21 [History Last Taken Unknown] indomethacin 50 mg capsule 50 mg PO BID PRN arthritis 02/20/21 [History Last Taken Unknown] lisinopril 20 mg tablet 20 mg PO BID HTN 02/20/21 [History Last Taken 06/12/21] ubrogepant 100 mg tablet (Ubrelvy) 100 mg PO ONCE PRN migraines 02/20/21 [History Last Taken Unknown] Allergy/AdvReac Type Severity Reaction Status Date / Time Egg Derived Allergy Severe Food Verified 12/18/21 15:51 Allergy Penicillins Allergy Anaphylaxis Verified 12/18/21 15:51 Milk Containing Products AdvReac Diarrhea Verified 12/18/21 15:51 STEROIDS AdvReac hypertensiv Uncoded 07/02/21 15:30 e Family History Mother Diabetes Dementia Heart disease tachycardia Father Heart disease Leukemia Surgical History History of hip surgery History of mandibular surgery Social History household members: spouse current occupational status: retired Smoking Status: Never smoker alcohol intake: current alcohol intake frequency: a few times a week Alcohol type: beer substance use type: does not use diet: lactose free caffeine: No what type of physical activity do you participate in: walking and bicycling frequency: 3-4 times per week ROS ROS ED ROS Narrative No recent illness. Review of Systems ROS Unobtainable: Denies due to encephalopathy Constitutional Constitutional ED: Denies chills or fever(s) Eyes Eyes: Denies none ENT ENT ED: Denies ear pain Cardiovascular Cardiovascular: Reports as per HPI and chest pain; Denies palpitations or racing heartbeat Respiratory/Chest Respiratory/Chest: Denies cough or dyspnea Gastrointestinal Gastrointestinal: Denies abdominal pain Genitourinary Genitourinary ED: Denies dysuria or hematuria Musculoskeletal Musculoskeletal: Denies arthralgias Integumentary Denies abscess Neurologic Neurologic: Denies headache(s) Psychiatric Psychiatric: Denies anxiety Endocrine Endocrinology: Denies cold intolerance Hematologic/Lymphatic Hematologic/Lymphatic: Denies easy bleeding Allergic/Immunologic Allergic/Immunologic ED: Denies mouth swelling or tongue swelling EXAM Physical Exam Narrative Exam Narrative: 71-year-old male vital signs stable afebrile. Pulse ox 97% on room air no hypoxia. H EENT exam unremarkable. Neck nontender no JVD. Lungs clear to auscultation bilaterally. Heart rate and rhythm. Abdomen soft nontender. Chest wall nontender. Moving all 4 extremities. Calves are nontender with edema or cords. Equal symmetrical radial pulses. Back nontender. Neurologically is awake and alert with no focal motor deficits. Const Vital Signs: 12/18/21 15:49 12/18/21 15:57 12/18/21 15:57 Temperature 98.2 F Temperature Source Temporal Pulse Rate 63 62 Respiratory Rate 16 15 Respiratory Effort Normal Blood Pressure 134/69 H 124/76 H Blood Pressure Mean 90 92 Pulse Ox 97 98 Oxygen Delivery Method Room Air Room Air 12/18/21 16:03 Temperature Temperature Source Pulse Rate Respiratory Rate Respiratory Effort Blood Pressure Blood Pressure Mean Pulse Ox 98 Oxygen Delivery Method Room Air Positive well nourished and well developed; Negative for obese, cachectic, contractures or unkempt General Appearance ED: well developed and NAD; Negative for unkempt, cachectic, contractures or pallor Nutritional Appearance: Negative for cachectic or obese HEENT Reports moist mucous membranes normocephalic and atraumatic; Negative for trauma or tenderness Eyes PERRL and EOMs intact bilaterally General Eye ED: Negative for pale conjunctiva or scleral icterus Neck no lymphadenopathy, supple and no JVD General: Negative for tenderness Chest Wall inspection of chest normal and palpation of chest normal Chest: Negative for tenderness Resp normal respiratory effort and clear to auscultation bilaterally Effort and Inspection: Negative for respiratory distress Auscultation: Negative for rales, rhonchi or wheezes Cardio regular rate, regular rhythm, S1 normal heart sound, S2 normal heart sound and no murmurs Rate: Negative for bradycardia or tachycardic Rhythm: Negative for abnormal rhythm GI normal to inspection, nondistended, normoactive bowel sounds, soft to palpation, non-tender, non-distended and no masses; Negative for hepatosplenomegaly Auscultation: Negative for hyperactive bowel sounds Palpation: Negative for splenomegaly Back/Spine no CVA tenderness and no thoracic nor lumbar tenderness General Back: Negative for CVA tenderness Cervical Spine: Negative for cervical spine tenderness Extremity normal to inspection General Extremety ED: Negative for edema or pulses abnormal General Extremity: Negative for edema or pulses abnormal Neuro oriented x3 and CN's II-XII intact bilaterally Sensorium / Orientation: awake, alert, oriented to person, oriented to place and oriented to time; Negative for confused, lethargic or stuporous Sensory Exam: No sensory level loss detected Motor Exam: strength 5/5 throughout Psych mental status grossly normal Appearance: Negative for unkempt Attitude: No agitated Mood & Affect: Negative for depressed, anxious or tearful Skin no rashes or lesions noted and no wounds General Skin Exam: Negative for jaundice or pallor Rashes: No rashes noted Trauma: Negative for abrasion or laceration Heart Score History: Slightly/Non-Suspicious ECG: Normal Age: >/= 65 years Risk Factors: 1 or 2 Risk Factors Troponin: </= Normal Limit Score: 3 MDM MDM MDM Narrative Medical decision making narrative: 71-year-old male with very atypical, nonexertional chest pain. Is not reproducible. He has no risk factors or history of any DVT or PE. Exam benign. He had a negative stress test about 4 months ago. He will undergo cardiac work-up with his negative uncomfortable to him being discharged home. Repeat exam patient is doing well at 4:34 PM. He and I discussed all his test results. He will be discharged home. Chest pain uncertain etiology. Outpatient follow-up. Return if worse. Lab Data Attestation: I reviewed the patient's lab results. Lab results narrative: CBC White count 5.7. H&H 12.2 and 36.5. Electrolytes unremarkable gap is 6 BUN and creatinine 18 and 1.2. Troponin 6. Labs: Laboratory Results - last 24 hr 12/18/21 12/18/21 16:10 16:10 WBC 5.7 RBC 3.80 L Hgb 12.2 L Hct 36.5 L MCV 96.1 H MCH 32.1 H MCHC 33.4 RDW Std Deviation 48.2 H RDW Coeff of Tin 13.8 Plt Count 160 MPV 9.2 Immature Gran % (Auto) 0.400 Neut % (Auto) 67.2 Lymph % (Auto) 20.4 [place] % (Auto) 8.3 Eos % (Auto) 3.0 Baso % (Auto) 0.7 Absolute Neuts (auto) 3.8 Absolute Lymphs (auto) 1.15 Nucleated RBC % 0 Sodium 140 Potassium 3.6 Chloride 104 Carbon Dioxide 30.0 Anion Gap 6 BUN 18 Creatinine 1.29 Estim Creat Clear Calc 54.23 Est GFR (MDRD) Af Amer 71 Est GFR (MDRD) Non-Af 58 L BUN/Creatinine Ratio 14.0 Glucose 100 Calcium 9.5 Troponin I High Sens 6 Radiography Chest X-Ray - ED: 1 View, Read by ED Physician, Heart, Lungs, Mediastinum, Bony Structures, No Acute Disease and Chronic Changes Rhythm Strip Rhythm Strip: Sinus Rhythm Rate: 64 Ectopy: None EKG Initial EKG: Attestation: I personally reviewed and interpreted this EKG as follows: Interpretation: Sinus Rhythm and No Acute Injury Pattern Comments: Normal sinus rhythm rate of 64 no acute signs of CA or ischemia unremarkable EKG. Discharge Plan Triage Chief Complaint: Chest Pain ED Provider: Jc Villarreal Dx/Rx/DC Orders Clinical Impression: Chest pain, Essential hypertension Instructions: ED Chest Pain, Uncertain Cause Prescriptions: No Action loratadine [Claritin] 10 mg tablet 10 mg PO DAILY hydrochlorothiazide 12.5 mg capsule 12.5 mg PO BID Label Comments: TAKE 1 CAPSULE BY MOUTH TWICE DAILY lisinopril 20 mg tablet 20 mg PO BID Label Comments: TAKE 1 TABLET BY MOUTH TWICE DAILY indomethacin 50 mg capsule 50 mg PO BID PRN (Reason: arthritis) Rx Instructions: administer with food or milk K2 Plus D3 1,000-100 unit-mcg tablet 1 tab PO DAILY Ubrelvy 100 mg tablet 100 mg PO ONCE PRN (Reason: migraines) Label Comments: Take 1 (one) Tablet PIERRE once daily as needed for migraine diltiazem HCl 60 mg capsule,extended release 12 hr 60 mg PO DAILY allopurinol 100 MG tablet 200 mg PO DAILY calcium carbonate 500 MG tablet 1,000 mg PO DAILY@0800 Primary Care Provider: Arnaldo Casiano Referrals: Arnaldo Casiano MD [Primary Care Provider] - As Needed Activity Restrictions/Additional Instructions: Your exam, history and work-up are unremarkable. Clinically this does not sound like cardiac chest pain. Follow-up with your doctor if not improving or return if worse. Disposition Disposition: Home, Self Care
--- NOTE | 2021-12-18 16:10 | RAD_ITS ---
EXAM: XR CHEST, 1 VIEW CLINICAL INDICATION: chest pain TECHNIQUE: Frontal view of the chest. This report was created using [employer] report generation technology. COMPARISON: 06/10/2021 FINDINGS: LUNGS AND PLEURAL SPACES: Unremarkable. No consolidation or edema. No pneumothorax. No effusion. HEART: Unremarkable. Cardiac silhouette not enlarged. MEDIASTINUM: Central airways and mediastinal contour are unremarkable. BONES/JOINTS: Unremarkable. SOFT TISSUES: Unremarkable. RAD/Chest 1 View (Portable) IMPRESSION: No radiographic evidence of acute cardiopulmonary disease. Electronically Signed: Lloyd Pisano MD at 16:43 EST ,
[2021-12-18 16:15] LABS: Absolute Lymphocyte Count 1.15 X10^3/uL (0.83-4.51); Absolute Neutrophil Count 3.8 X10^3/uL (2.0-7.7); Basophil# 0.04 X10^3/uL; Basophil% 0.7 % (0-1); Eosinophil# 0.17 X10^3/uL; Hematocrit 36.5 % (40-54); Hemoglobin 12.2 g/dL (13.0-16.5); Lymphocyte # 1.15 X10^3/ul (0.83-4.51); Lymphocyte % 20.4 % (19-41); Mean Corp Hgb Conc 33.4 g/dL (32-36); Mean Corpuscular Hgb 32.1 pg (27.0-32.0); Mean Corpuscular Volume 96.1 fL (80-94); Mean Platelet Vol. 9.2 fl (6.2-12.0); Monocyte# 0.47 X10^3/uL; Monocyte% 8.3 % (0-10); NRBC Flagged by Analyzer 0 % (0-5); Neutrophil % 67.2 % (47-70); Platelet Count 160 K/mm3 (150-450); RBC Distribution Width CV 13.8 % (11.6-14.6); RBC Distribution Width SD 48.2 fl (35.1-43.9); White Blood Count 5.7 K/mm3 (4.4-11.0)
[2021-12-18 16:33] LABS: Anion Gap 6 (5-15); BUN 18 mg/dL (7-18); Calcium,Total 9.5 mg/dL (8.5-10.1); Chloride 104 mmol/L (98-107); Creatinine, Serum 1.29 mg/dL (0.70-1.30); EST Glomerular Filtration Rate 58 mL/min (>60); Est Glom Filt Rate - Afr Amer 71 mL/min (>60); Estimated Creatinine Clearance 54.23 ml/min; Glucose 100 mg/dL (74-106); Potassium 3.6 mmol/L (3.5-5.1); Sodium Level 140 mmol/L (136-145); Troponin-I HS (w/2H Reflex) 6 pg/mL (3.0-78.0)
[2021-12-18 16:43] VITALS: BP 113/74; PULSE 55; RESP 16; O2SAT 96
[2021-12-18 18:12] LABS: Reflex Troponin-HS? (from REC) Y
== END 2021-12-18 16:44 | disposition home or self-care (01) ==
LOC: ED 16:21
PROVIDERS: Emergency Provider Emergency Medicine; PCP Family Medicine; Visit Provider Emergency Medicine
DX: R07.9 Chest pain, unspecified (principal); E78.5 Hyperlipidemia, unspecified; I10 Essential (primary) hypertension
CPT/HCPCS: 71045; 80048; 84484; 85025; 93005; 99284; A4216

== ENCOUNTER 2022-01-10 15:21 | Outpatient (CLI) | payer MEDICARE, OTHER, SELFPAY ==
[2022-01-10 18:02] LABS: Absolute Lymphocyte Count 1.41 X10^3/uL (0.83-4.51); Absolute Neutrophil Count 4.7 X10^3/uL (2.0-7.7); Basophil# 0.03 X10^3/uL; Basophil% 0.4 % (0-1); Eosinophil# 0.17 X10^3/uL; Eosinophils% 2.5 % (0-5); Hematocrit 39.2 % (40-54); Hemoglobin 12.8 g/dL (13.0-16.5); Lymphocyte # 1.41 X10^3/ul (0.83-4.51); Lymphocyte % 20.6 % (19-41); Mean Corp Hgb Conc 32.7 g/dL (32-36); Mean Corpuscular Hgb 31.5 pg (27.0-32.0); Mean Corpuscular Volume 96.6 fL (80-94); Mean Platelet Vol. 9.6 fl (6.2-12.0); Monocyte# 0.54 X10^3/uL; Monocyte% 7.9 % (0-10); NRBC Flagged by Analyzer 0 % (0-5); Neutrophil # 4.66 X10^3/uL (2.7-7.7); Platelet Count 203 K/mm3 (150-450); RBC Distribution Width CV 13.8 % (11.6-14.6); RBC Distribution Width SD 48.6 fl (35.1-43.9); Red Blood Count 4.06 M/mm3 (4.6-6.2); White Blood Count 6.9 K/mm3 (4.4-11.0)
[2022-01-10 18:43] LABS: ALB/GLOB Ratio 1.3 RATIO (0.9-2.4); AST(SGOT) 18 U/L (15-37); Alanine Aminotransfer ALT/SGPT 33 U/L (16-61); Alkaline Phosphatase 74 U/L (45-117); Anion Gap 6 (5-15); BUN 18 mg/dL (7-18); BUN/Creat Ratio 15.8 RATIO (10-20); Calcium,Total 9.1 mg/dL (8.5-10.1); Chloride 101 mmol/L (98-107); Creatinine, Serum 1.14 mg/dL (0.70-1.30); EST Glomerular Filtration Rate 67 mL/min (>60); Est Glom Filt Rate - Afr Amer 81 mL/min (>60); Glucose 76 mg/dL (74-106); Potassium 3.1 mmol/L (3.5-5.1); Rheumatoid Factor < 10.0 IU/mL (<15); Sodium Level 139 mmol/L (136-145)
[2022-01-10 18:44] LABS: Hepatitis B Surface Antibody Non-Reactive; Hepatitis B Surface Antigen Non-Reactive (Nonreactive); Hepatitis C Antibody Non-Reactive (Nonreactive)
[2022-01-15 09:30] LABS: CCP IgG Antibodies 2 units (0-19)
== END 2022-01-10 23:59 | disposition home or self-care (01) ==
LOC: MTLAB 15:22
PROVIDERS: PCP Family Medicine; Referring Provider Internal Medicine Rheumatology; Visit Provider Internal Medicine Rheumatology
DX: M06.4 Inflammatory polyarthropathy (principal); I47.1 Supraventricular tachycardia; M48.061 Spinal stenosis, lumbar region without neurogenic claudication; I10 Essential (primary) hypertension; E78.5 Hyperlipidemia, unspecified; K21.9 Gastro-esophageal reflux disease without esophagitis
CPT/HCPCS: 36415; 80053; 85025; 86200; 86431; 86706; 86803; 87340

== ENCOUNTER → 2022-02-07 | Outpatient (CLI) | payer MEDICARE, OTHER, SELFPAY ==
[2022-02-07 10:29] LABS: Anion Gap 5 (5-15); BUN 14 mg/dL (7-18); BUN/Creat Ratio 12.8 RATIO (10-20); Calcium,Total 8.9 mg/dL (8.5-10.1); Chloride 110 mmol/L (98-107); Creatinine, Serum 1.09 mg/dL (0.70-1.30); EST Glomerular Filtration Rate 71 mL/min (>60); Est Glom Filt Rate - Afr Amer 86 mL/min (>60); Glucose 110 mg/dL (74-106); Potassium 4.1 mmol/L (3.5-5.1); Sodium Level 143 mmol/L (136-145)
== END | disposition home or self-care (01) ==
LOC: MFPLAB 08:33
PROVIDERS: PCP Family Medicine; Referring Provider Family Medicine; Visit Provider Family Medicine
DX: E87.6 Hypokalemia (principal)
CPT/HCPCS: 36415; 80048

== ENCOUNTER 2022-02-10 08:13 | Emergency (ER) | payer MEDICARE, OTHER, SELFPAY ==
[2022-02-10 08:15] VITALS: BP 136/85; PULSE 62; RESP 25; TEMP 35.9; O2SAT 96; BMI 30.5
--- NOTE | 2022-02-10 08:33 | EKG12_ITS ---
Test Reason : CP Blood Pressure : / mmHG Vent. Rate : 058 BPM Atrial Rate : 058 BPM P-R Int : 162 ms QRS Dur : 090 ms QT Int : 412 ms P-R-T Axes : 035 005 016 degrees QTc Int : 404 ms Sinus bradycardia Possible Inferior infarct , age undetermined Abnormal ECG Confirmed by JOSE ACOSTA, RICH ([id number]), staff editor MAGGIE ENCARNACION ([id number]) on 02/11/2022 1:07:06 PM Referred By: LETI Confirmed By:RICH GARCIA MD
--- NOTE | 2022-02-10 08:33 | RAD_ITS ---
EXAM: XR CHEST, 1 VIEW CLINICAL INDICATION: chest pain TECHNIQUE: Frontal view of the chest. This report was created using [employer] report generation technology. COMPARISON: XR Chest dated december 18 2021 FINDINGS: LUNGS AND PLEURAL SPACES: No pulmonary consolidation. No pneumothorax. No effusion. HEART: Normal heart size. MEDIASTINUM: No mediastinal or hilar mass. BONES/JOINTS: No acute abnormality. SOFT TISSUES: Normal. RAD/Chest 1 View (Portable) IMPRESSION: No acute cardiopulmonary abnormality. Electronically Signed: Patrick Goddard MD at 9:06 EST ,
--- NOTE | 2022-02-10 08:35 | ED.VIS.CHEST ---
HPI History of Present Illness Chief Complaint: Chest Pain Informant: patient Narrative Narrative: Patient presents with left-sided chest pain. He states he has had issues with this in the past. Its thought to be musculoskeletal because he always sleeps on his left side. The pain is reproducible especially if he lifts his arm up high. He has an area along the lateral aspect of his left pectoralis major muscle that sore. He also has 1 area about 2 inches around that is a little sore over by his deltoid on the left. These areas are sore to move and press. He does not have dyspnea nausea vomiting lightheadedness with this. Although he has a history of SVT he is not having racing heartbeats. On review of systems he does have a little bit of dyspnea when he is walking up a hill walking his dog. But no other symptoms with this. His dyspnea resolves rapidly if he walks down or stops walking up the hill. He has had CTs that showed some coronary calcification. 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 He does have high blood pressure. He does not have diabetes high cholesterol smoking history or family history below the age of 55. His father did develop some heart disease in his 60s. His symptoms are intermittent. [facility] Medical History Cardiology follow-up encounter Chronic cough Closed left hip fracture Difficulty swallowing Eczema Essential hypertension Fracture of radial head, left, closed Fracture of right patella Fracture of right radius GERD (gastroesophageal reflux disease) Gout History of echocardiogram History of renal disease History of stress test Hyperlipidemia Hyperuricemia IBS (irritable bowel syndrome) Migraine headache Non-smoker Obesity Osteopenia Osteoporosis Personal history of supraventricular tachycardia Seasonal allergies Wears glasses Wears hearing aid Home Medications allopurinol 100 mg tablet 200 mg PO DAILY gout 12/13/17 [History Last Taken 03/18/18] calcium carbonate 500 mg calcium (1,250 mg) tablet 1,000 mg PO DAILY@0800 supplement 03/22/18 [History Last Taken Unknown] loratadine 10 mg tablet (Claritin) 10 mg PO DAILY allergies 04/05/20 [History Last Taken Unknown] cholecalciferol (vit D3) 1,000 unit-vitamin K2 (MK4) 100 mcg tablet (K2 Plus D3) 1 tab PO DAILY supplement 02/20/21 [History Last Taken Unknown] diltiazem HCl 60 mg capsule,extended release 12 hr 60 mg PO DAILY heart rate 02/20/21 [History Last Taken 06/12/21] hydrochlorothiazide 12.5 mg capsule 12.5 mg PO BID 02/20/21 [History Last Taken Unknown] indomethacin 50 mg capsule 50 mg PO BID PRN arthritis 02/20/21 [History Last Taken Unknown] lisinopril 20 mg tablet 20 mg PO BID HTN 02/20/21 [History Last Taken 06/12/21] ubrogepant 100 mg tablet (Ubrelvy) 100 mg PO ONCE PRN migraines 02/20/21 [History Last Taken Unknown] Allergy/AdvReac Type Severity Reaction Status Date / Time Egg Derived Allergy Severe Food Verified 02/10/22 08:19 Allergy Penicillins Allergy Anaphylaxis Verified 02/10/22 08:19 Milk Containing Products AdvReac Diarrhea Verified 02/10/22 08:19 STEROIDS AdvReac hypertensiv Uncoded 02/10/22 08:19 e Family History Mother Diabetes Dementia Heart disease tachycardia Father Heart disease Leukemia Surgical History History of hip surgery History of mandibular surgery Social History household members: spouse current occupational status: retired Smoking Status: Never smoker alcohol intake: current alcohol intake frequency: a few times a week Alcohol type: beer substance use type: does not use diet: lactose free caffeine: No what type of physical activity do you participate in: walking and bicycling frequency: 3-4 times per week ROS ROS ED Constitutional Constitutional ED: Denies chills or fever(s) ENT ENT ED: Denies rhinorrhea or sore throat Cardiovascular Cardiovascular: Reports as per HPI; Denies palpitations or racing heartbeat Respiratory/Chest Respiratory/Chest: Denies cough or dyspnea Gastrointestinal Gastrointestinal: Denies nausea or vomiting Musculoskeletal Musculoskeletal: Denies myalgias Integumentary Denies rash Neurologic Neurologic: Denies headache(s), paresthesias or weakness Psychiatric Psychiatric: Denies anxiety Endocrine Endocrinology: Denies polydipsia or polyuria Hematologic/Lymphatic Hematologic/Lymphatic: Denies easy bleeding or easy bruising Allergic/Immunologic Allergic/Immunologic ED: Denies urticaria EXAM Physical Exam Const Vital Signs: 02/10/22 08:15 02/10/22 08:21 02/10/22 08:38 Temperature 96.6 F L Temperature Source Temporal Pulse Rate 62 Respiratory Rate 25 H Respiratory Effort Normal Non-Labored Respiratory Pattern Tachypnea Blood Pressure 136/85 H Blood Pressure Mean 102 Pulse Ox 96 99 Oxygen Delivery Method Room Air Room Air 02/10/22 10:48 Temperature Temperature Source Pulse Rate 71 Respiratory Rate 26 H Respiratory Effort Respiratory Pattern Blood Pressure 121/78 H Blood Pressure Mean 92 Pulse Ox 98 Oxygen Delivery Method Room Air Positive well nourished General Appearance ED: NAD HEENT Reports moist mucous membranes Eyes General Eye ED: Negative for scleral icterus Neck supple and no JVD Chest Wall inspection of chest normal Chest Narrative: He does have some reproducible chest wall tenderness. If I have him lift his left arm up over his head or shrug her shoulder high it also reproduces this pain. Resp normal respiratory effort and clear to auscultation bilaterally Resp Narrative: No pain with deep breath. Lungs are clear. No asymmetry. Cardio regular rate and regular rhythm Rate: other Other Details: Heart rate runs anywhere from the upper 50s to the mid 60s. This is likely due to his diltiazem that he takes primarily for SVT. There is no ectopy on the monitor. There is no murmur that I hear. Peripheral pulses are normal. GI normal to inspection, nondistended, normoactive bowel sounds and soft to palpation Back/Spine no CVA tenderness Extremity normal to inspection Extremity Narrative: No edema, cords, tenderness, distended veins or asymmetry. Neuro Sensorium / Orientation: awake and alert Psych mental status grossly normal Skin no rashes or lesions noted Heart Score History: Slightly/Non-Suspicious ECG: Normal Age: >/= 65 years Risk Factors: 1 or 2 Risk Factors Score: 3 MDM MDM MDM Narrative Medical decision making narrative: X-ray shows no acute process. EKG is normal. He has a heart score of 3. CBC showed mildly low hemoglobin and white count. Platelets are normal. Electrolytes were overall within normal limits. Minimal elevation of the chloride and glucose. Troponin is negative at 6. Even though patient has had some symptoms for days, we did repeat the troponin and it was unchanged. This patient has isolated pain that is reproducible with motion. He has a history of the same pain he has been evaluated before. He has a negative stress test within a year. He is asymptomatic. He has 2 negative troponins and they are not rising. I think he is safe and appropriate for discharge. He will follow-up with his supervisor laboratory animal facility. He should return with worsening pain or additional symptoms such as nausea vomiting diaphoresis lightheadedness or shortness of breath. Lab Data Labs: Laboratory Results - last 24 hr 02/10/22 02/10/22 02/10/22 08:15 08:15 10:46 WBC 4.2 L RBC 3.94 L Hgb 12.9 L Hct 39.1 L MCV 99.2 H MCH 32.7 H MCHC 33.0 RDW Std Deviation 51.8 H RDW Coeff of Tin 14.2 Plt Count 157 MPV 9.9 Immature Gran % (Auto) 0.500 Neut % (Auto) 65.1 Lymph % (Auto) 23.7 Canyon % (Auto) 7.6 Eos % (Auto) 2.6 Baso % (Auto) 0.5 Absolute Neuts (auto) 2.8 Absolute Lymphs (auto) 1.00 Nucleated RBC % 0 Sodium 143 Potassium 4.1 Chloride 108 H Carbon Dioxide 30.0 Anion Gap 5 BUN 19 H Creatinine 1.10 Estim Creat Clear Calc 63.60 Est GFR (MDRD) Af Amer 85 Est GFR (MDRD) Non-Af 70 BUN/Creatinine Ratio 17.3 Glucose 119 H Calcium 9.3 Troponin I High Sens 6 6 Radiography Diagnostic Testing: Clinical Impression(s) from Imaging Studies Chest X-Ray 02/10/22 08:33 IMPRESSION: No acute cardiopulmonary abnormality. Electronically Signed: Patrick Goddard MD at 9:06 EST , X-ray shows no acute process. EKG Initial EKG: Comments: EKG done for chest pain read by me shows a normal sinus rhythm except for mildly bradycardic rate at 58. No ventricular ectopy. No acute ST elevation or depression. Mild decreased voltage. GA interval, QRS duration and QTc normal. The EKG is quite similar to 18 December 2021. Discharge Plan Triage Chief Complaint: Chest Pain ED Provider: Kenton Dillard Dx/Rx/DC Orders Clinical Impression: Left-sided chest pain Instructions: ED Chest Pain, Uncertain Cause Prescriptions: No Action loratadine [Claritin] 10 mg tablet 10 mg PO DAILY hydrochlorothiazide 12.5 mg capsule 12.5 mg PO BID Label Comments: TAKE 1 CAPSULE BY MOUTH TWICE DAILY lisinopril 20 mg tablet 20 mg PO BID Label Comments: TAKE 1 TABLET BY MOUTH TWICE DAILY indomethacin 50 mg capsule 50 mg PO BID PRN (Reason: arthritis) Rx Instructions: administer with food or milk K2 Plus D3 1,000-100 unit-mcg tablet 1 tab PO DAILY Ubrelvy 100 mg tablet 100 mg PO ONCE PRN (Reason: migraines) Label Comments: Take 1 (one) Tablet PIERRE once daily as needed for migraine diltiazem HCl 60 mg capsule,extended release 12 hr 60 mg PO DAILY allopurinol 100 MG tablet 200 mg PO DAILY calcium carbonate 500 MG tablet 1,000 mg PO DAILY@0800 Primary Care Provider: Arnaldo Casiano Referrals: Dwayne Klein MD [Med Staff - Active Staff] - 3-5 Days Arnaldo Casiano MD [Primary Care Provider] - As Needed Disposition Disposition: Home, Self Care
[2022-02-10 08:38] VITALS: O2SAT 99
[2022-02-10] MEDS: Aspirin 81 MG TAB.CHEW 324 MG PO (08:41)
[2022-02-10 08:56] LABS: Absolute Neutrophil Count 2.8 X10^3/uL (2.0-7.7); Basophil# 0.02 X10^3/uL; Basophil% 0.5 % (0-1); Eosinophil# 0.11 X10^3/uL; Eosinophils% 2.6 % (0-5); Hematocrit 39.1 % (40-54); Hemoglobin 12.9 g/dL (13.0-16.5); Lymphocyte % 23.7 % (19-41); Mean Corpuscular Hgb 32.7 pg (27.0-32.0); Mean Corpuscular Volume 99.2 fL (80-94); Mean Platelet Vol. 9.9 fl (6.2-12.0); Monocyte# 0.32 X10^3/uL; Monocyte% 7.6 % (0-10); NRBC Flagged by Analyzer 0 % (0-5); Neutrophil # 2.75 X10^3/uL (2.7-7.7); Neutrophil % 65.1 % (47-70); Platelet Count 157 K/mm3 (150-450); RBC Distribution Width CV 14.2 % (11.6-14.6); RBC Distribution Width SD 51.8 fl (35.1-43.9); Red Blood Count 3.94 M/mm3 (4.6-6.2); White Blood Count 4.2 K/mm3 (4.4-11.0)
[2022-02-10 09:01] LABS: Anion Gap 5 (5-15); BUN 19 mg/dL (7-18); BUN/Creat Ratio 17.3 RATIO (10-20); Calcium,Total 9.3 mg/dL (8.5-10.1); Chloride 108 mmol/L (98-107); EST Glomerular Filtration Rate 70 mL/min (>60); Est Glom Filt Rate - Afr Amer 85 mL/min (>60); Glucose 119 mg/dL (74-106); Potassium 4.1 mmol/L (3.5-5.1); Sodium Level 143 mmol/L (136-145); Troponin-I HS (w/2H Reflex) 6 pg/mL (3.0-78.0)
[2022-02-10 10:41] LABS: Reflex Troponin-HS? (from REC) Y
[2022-02-10 10:48] VITALS: BP 121/78; PULSE 71; RESP 26; O2SAT 98
[2022-02-10 11:13] LABS: Troponin-I HS 6 pg/mL (3.0-78.0)
[2022-02-10 11:39] VITALS: BP 134/79; PULSE 78; RESP 16; O2SAT 98
== END 2022-02-10 11:40 | disposition home or self-care (01) ==
PROVIDERS: Emergency Provider Emergency Medicine; PCP Family Medicine; Visit Provider Emergency Medicine
DX: R07.9 Chest pain, unspecified (principal); I10 Essential (primary) hypertension; Z79.899 Other long term (current) drug therapy
CPT/HCPCS: 36415; 71045; 80048; 84484; 85025; 93005; 99284; A4216

== ENCOUNTER → 2022-02-12 | Outpatient (CLI) | payer MEDICARE, OTHER, SELFPAY ==
[2022-02-12 10:27] LABS: AST(SGOT) 16 U/L (15-37); Alanine Aminotransfer ALT/SGPT 24 U/L (16-61); Albumin, Serum 3.5 g/dL (3.2-5.0); Alkaline Phosphatase 57 U/L (45-117); Bilirubin, Direct 0.18 mg/dL (0.00-0.30); Cholesterol 163 mg/dL (200); Globulin 2.4 g/dL (2.2-4.2); High Density Lipoprotein 47 mg/dL; Protein, Total 5.9 g/dL (6.4-8.2); Triglycerides 127 mg/dL; Very Low Density Lipoprotein 25 mg/dL (5-40)
== END | disposition home or self-care (01) ==
LOC: MFPLAB 08:30
PROVIDERS: PCP Family Medicine; Visit Provider Nurse Practitioner Gerontology
DX: E78.00 Pure hypercholesterolemia, unspecified (principal); E78.5 Hyperlipidemia, unspecified
CPT/HCPCS: 36415; 80061; 80076

== ENCOUNTER → 2022-02-13 | Outpatient (CLI) | payer MEDICARE, OTHER, SELFPAY ==
[2022-02-13 11:56] LABS: BNP,B-Type NATRIURETIC PEPTIDE 26.2 pg/mL (0-100)
== END | disposition home or self-care (01) ==
LOC: LAB 11:03
PROVIDERS: PCP Family Medicine; Referring Provider Nurse Practitioner Gerontology; Visit Provider Nurse Practitioner Gerontology
DX: R60.9 Edema, unspecified (principal); R06.09 Other forms of dyspnea
CPT/HCPCS: 36415; 83880

== ENCOUNTER → 2022-02-28 | Outpatient (CLI) | payer MEDICARE, OTHER, SELFPAY ==
--- NOTE | 2022-02-28 06:40 | ECHOD_ITS ---
Version 2 Reason For Study: DYSPNEA Procedure This was a 2D Doppler, Color Flow transthoracic echocardiogram. Exam performed in department. Left Ventricle Normal LV size. Left ventricular systolic function is normal. The estimated ejection fraction is 60 %. No regional wall motion abnormalities noted. Right Ventricle Normal RV size. Normal systolic function. Atria Normal left atrium. Normal right atrium. Mitral Valve Normal mitral valve. Tricuspid Valve Normal tricuspid valve. Mild (1+) tricuspid valve insufficiency. Pulmonary artery systolic pressure is 32 mmHg. Aortic Valve Normal aortic valve. Trisinus/trileaflet aortic valve. Pulmonic Valve Normal pulmonic valve. Great Vessels Normal aortic root. The pulmonary is not well visualized. Normal inferior vena cava. Pericardium/Pleural No pericardial effusion. MMode/2D Measurements & Calculations Ao root diam: 3.7 cm LAV(MOD-bp): 49.8 ml LVAd ap4: 28.0 cm2 LAV(MOD-bp) Indexed: 23.4 ml/m2 LVLd ap4: 7.3 cm LAV(MOD-sp2): 52.2 ml EDV(MOD-sp4): 85.5 ml LAV(MOD-sp4): 40.6 ml EDV(sp4-el): 91.1 ml LVAs ap4: 13.8 cm2 LVLs ap4: 6.0 cm ESV(MOD-sp4): 27.1 ml ESV(sp4-el): 26.9 ml EF(MOD-sp4): 68.3 % EF(sp4-el): 70.5 % SV(MOD-sp4): 58.4 ml SV(sp4-el): 64.2 ml LA A4 area: 15.9 cm2 LA dimension(2D): 4.2 cm RA A4 area: 14.5 cm2 Time Measurements MV dec time: 0.19 sec Doppler Measurements & Calculations MV E max jesus manuel: 69.1 cm/sec Lat Peak E' Jesus Manuel: 11.2 cm/sec Med Peak E' Jesus Manuel: 7.7 cm/sec MV A max jesus manuel: 77.2 cm/sec E/E' lat: 6.2 E/E' med: 9.0 MV E/A: 0.90 MV V2 max: 88.2 cm/sec MV dec slope: 401.4 cm/sec2 Ao V2 max: 139.0 cm/sec MV max P.1 mmHg Ao max P.7 mmHg MV V2 mean: 60.5 cm/sec Ao V2 mean: 101.6 cm/sec MV mean P.6 mmHg Ao mean P.7 mmHg MV V2 VTI: 32.1 cm Ao V2 VTI: 33.8 cm AV (velocity ratio): 0.77 LV V1 max: 112.9 cm/sec MR max jesus manuel: 438.0 cm/sec PA V2 max: 124.7 cm/sec LV V1 max P.1 mmHg MR max P.7 mmHg PA V2 mean: 80.7 cm/sec LV V1 mean P.9 mmHg MR mean jesus manuel: 333.9 cm/sec LV V1 mean: 79.9 cm/sec MR mean P.9 mmHg LV V1 VTI: 26.1 cm MR VTI: 153.8 cm TR max jesus manuel: 264.8 cm/sec TR max P.1 mmHg ECHO/Echo Complete Interpretation Summary Normal LV size. Left ventricular systolic function is normal. The estimated ejection fraction is 60 %. Mild (1+) tricuspid valve insufficiency. Pulmonary artery systolic pressure is 32 mmHg. The global longitudinal strain is normal. The global longitudinal strain = -19. 1 % (normal). Ordering Physician: Yamilet Coppola Referring Physician: ANA MOMIN Performed By: Miguelina Rodríguez RCS
--- NOTE | 2022-02-28 17:09 | STRESSREP ---
Stress Test Report Pharmacologic myocardial perfusion stress test. 71-year-old man with a history of chest pain Resting EKG demonstrates sinus rhythm with a rate of 74 bpm. Resting blood pressure is 114/70 mmHg. 0.4 mg of regadenoson was infused per usual protocol followed by rapid intravenous saline flush injection. Continuous EKG monitoring was performed. The maximum heart rate was 108 bpm which was 72% of max impacted heart rate the maximum workload was 1 metabolic equivalent. At rest there were no ST or T wave changes noted to suggest ischemia and at peak infusion nonspecific ST changes were noted which did not meet the criteria for ischemia. No clinical angina is noted. The final blood pressure was 120/74 mmHg. Myocardial perfusion protocol. 12.0 mCi of technetium 99m sestamibi was injected at rest. 0.4 mg of regadenoson was infused per usual protocol. At peak infusion 36.0 mCi of technetium 99m sestamibi was injected stress images were obtained stress and rest images were reconstructed and compared in the short axis vertical long and horizontal long axis. Gated images were also obtained. Perfusion SPECT analysis: Review of the stress images demonstrate normal uptake of tracer noted in all areas of the myocardium. The resting images similar demonstrated normal uptake of tracer noted in all areas of the myocardium. No areas of reversibility are noted to suggest ischemia and no previous infarct is noted. Gated SPECT analysis: The gated ejection fraction is 70%. Conclusion: Normal pharmacologic myocardial perfusion stress test. Preserved ejection fraction.
== END | disposition home or self-care (01) ==
LOC: CVS 06:39
PROVIDERS: PCP Family Medicine; Visit Provider Nurse Practitioner Gerontology
DX: R07.9 Chest pain, unspecified (principal); R06.09 Other forms of dyspnea
CPT/HCPCS: 78452; 93017; 93306; A9500; A4216; J2785

== ENCOUNTER → 2022-03-07 | Outpatient (CLI) | payer MEDICARE, OTHER, SELFPAY ==
[2022-03-07 15:23] LABS: Absolute Lymphocyte Count 1.37 X10^3/uL (0.83-4.51); Absolute Neutrophil Count 3.4 X10^3/uL (2.0-7.7); Basophil# 0.03 X10^3/uL; Basophil% 0.6 % (0-1); Eosinophil# 0.14 X10^3/uL; Eosinophils% 2.6 % (0-5); Hematocrit 40.5 % (40-54); Hemoglobin 13.8 g/dL (13.0-16.5); Lymphocyte # 1.37 X10^3/ul (0.83-4.51); Lymphocyte % 25.1 % (19-41); Mean Corp Hgb Conc 34.1 g/dL (32-36); Mean Corpuscular Hgb 32.2 pg (27.0-32.0); Mean Corpuscular Volume 94.6 fL (80-94); Mean Platelet Vol. 9.8 fl (6.2-12.0); Monocyte# 0.51 X10^3/uL; Monocyte% 9.4 % (0-10); NRBC Flagged by Analyzer 0 % (0-5); Neutrophil # 3.38 X10^3/uL (2.7-7.7); Neutrophil % 61.9 % (47-70); Platelet Count 194 K/mm3 (150-450); RBC Distribution Width SD 48.5 fl (35.1-43.9); Red Blood Count 4.28 M/mm3 (4.6-6.2); White Blood Count 5.5 K/mm3 (4.4-11.0)
[2022-03-07 15:38] LABS: ALB/GLOB Ratio 1.5 RATIO (0.9-2.4); AST(SGOT) 20 U/L (15-37); Alanine Aminotransfer ALT/SGPT 28 U/L (16-61); Albumin, Serum 3.9 g/dL (3.2-5.0); Alkaline Phosphatase 56 U/L (45-117); Anion Gap 9 (5-15); BUN 18 mg/dL (7-18); BUN/Creat Ratio 14.5 RATIO (10-20); Calcium,Total 9.6 mg/dL (8.5-10.1); Chloride 104 mmol/L (98-107); Creatinine, Serum 1.24 mg/dL (0.70-1.30); EST Glomerular Filtration Rate 61 mL/min (>60); Est Glom Filt Rate - Afr Amer 74 mL/min (>60); Globulin 2.6 g/dL (2.2-4.2); Glucose 100 mg/dL (74-106); Potassium 3.6 mmol/L (3.5-5.1); Protein, Total 6.5 g/dL (6.4-8.2); Sodium Level 141 mmol/L (136-145); Thyroid Stim Hormone (TSH) 1.16 uIU/mL (0.358-3.74)
[2022-03-07 16:05] LABS: Syphilis Antibodies Non-reactive; Vitamin D,25 Hydroxy 60.6 ng/mL
[2022-03-15 21:07] LABS: PROEL- A/G Ratio 1.5 (0.7-1.7); PROEL- Albumin 3.8 g/dL (2.9-4.4); PROEL- Alpha-1 Globulin 0.2 g/dL (0.0-0.4); PROEL- Alpha-2 Globulin 0.6 g/dL (0.4-1.0); PROEL- Gamma Globulin 0.8 g/dL (0.4-1.8); PROEL- Globulin, Total 2.6 g/dL (2.2-3.9); PROEL- TOTAL PROTEIN 6.4 g/dL (6.0-8.5)
[2022-03-17 19:50] LABS: Vitamin A, Retinol 64.6 ug/dL (22.0-69.5)
== END | disposition home or self-care (01) ==
PROVIDERS: PCP Family Medicine; Referring Provider Family Medicine; Visit Provider Family Medicine
DX: R41.89 Other symptoms and signs involving cognitive functions and awareness (principal); M81.8 Other osteoporosis without current pathological fracture; Z78.9 Other specified health status
CPT/HCPCS: 36415; 80053; 82140; 82306; 84165; 84443; 84590; 85025; 86780

== ENCOUNTER → 2022-05-07 | Outpatient (CLI) | payer MEDICARE, OTHER, SELFPAY ==
[2022-05-07 11:04] LABS: AST(SGOT) 21 U/L (15-37); Alanine Aminotransfer ALT/SGPT 28 U/L (16-61); Albumin, Serum 3.6 g/dL (3.2-5.0); Alkaline Phosphatase 55 U/L (45-117); Bilirubin, Direct 0.21 mg/dL (0.00-0.30); Cholesterol 230 mg/dL (200); Globulin 2.7 g/dL (2.2-4.2); High Density Lipoprotein 43 mg/dL; Protein, Total 6.3 g/dL (6.4-8.2); Triglycerides 147 mg/dL; Very Low Density Lipoprotein 29 mg/dL (5-40)
== END | disposition home or self-care (01) ==
LOC: MFPLAB 08:25
PROVIDERS: PCP Family Medicine; Visit Provider Internal Medicine Cardiovascular Disease
DX: E78.00 Pure hypercholesterolemia, unspecified (principal)
CPT/HCPCS: 36415; 80061; 80076

== ENCOUNTER 2022-05-16 07:01 | Outpatient (CLI) | payer MEDICARE, OTHER, SELFPAY ==
--- NOTE | 2022-05-16 07:03 | CT_ITS ---
STUDY: CT ABDOMEN AND PELVIS WITHOUT CONTRAST REASON FOR EXAM: Male, 71 years old. KIDNEY CA. Follow-up examination. RADIATION DOSAGE (If Supplied By Facility): CTDIvol = ( 16.86 ) mGy, DLP = ( 884.37 ) mGycm TECHNIQUE: Transaxial images were obtained from the dome of the diaphragm to the symphysis pubis without oral contrast, and without intravenous contrast. Sagittal and coronal images were reconstructed. Individualized dose optimization techniques were used for this CT. COMPARISON: Comparison is made with prior study dated May 23, 2021. FINDINGS: Stable increased markings at the lung bases with areas of confluence suggests bibasilar scarring. There has been essentially no change. Coronary artery calcification. Normal liver. Multiple small gallstones. Normal spleen. Normal pancreas. Normal bilateral adrenal glands. There is a 1.2 cm x 1 cm hypodense nodule in the upper outer anterior aspect of the right kidney. This is unchanged. There is a 3.1 sign by 3.5 cm hypodense nodule in the inferior pole of the left kidney. There is also evidence of a 1.3 cm x 1.6 cm hypodense nodule in the medial midportion of the left kidney. Incidental note is made of a left retroaortic renal vein. There is a small hiatal hernia. Normal small intestine. Normal colon. The appendix is visualized and appears normal. Normal abdominal aorta. Normal inferior vena cava. Normal retroperitoneum. Diffuse bladder wall thickening. There is a 3.4 cm x 4.3 cm density seen at the base of the bladder. This may represent an enlarged prostate with indentation at the bladder base. Small bilateral inguinal hernia is containing fat. There are degenerative changes of the visualized lumbar spine. CT/Abdomen/Pelvis without Cont IMPRESSION: Stable examinations with hypodense nodules in both kidneys as described. Prostatic enlargement. Diffuse bladder wall thickening with possible polypoid mass at the base of the bladder although this may represent prosthetic enlargement and bladder base indentation. Multiple small gallstones. Electronically Signed: Shimon Alcazar MD at 14:51 EDT ,
== END 2022-05-16 23:59 | disposition home or self-care (01) ==
LOC: CT 07:02
PROVIDERS: PCP Family Medicine; Referring Provider Urology; Visit Provider Urology
DX: N28.1 Cyst of kidney, acquired (principal); M81.0 Age-related osteoporosis without current pathological fracture
CPT/HCPCS: 96365; 74176; A4216; J3489

== ENCOUNTER → 2022-05-16 | Outpatient (CLI) | payer MEDICARE, OTHER, SELFPAY ==
[2022-05-16 12:41] VITALS: BP 116/69; PULSE 58; RESP 16; TEMP 36.6; O2SAT 98; BMI 29.4
[2022-05-16] MEDS: Zoledronic Acid 5 MG 100 ML 300 MG IV (12:53)
[2022-05-16 13:24] VITALS: BP 106/68; PULSE 52; RESP 16; TEMP 36.3; O2SAT 100
== END | disposition home or self-care (01) ==
LOC: MEDOUTP 12:36
PROVIDERS: PCP Family Medicine; Referring Provider Internal Medicine Endocrinology, Diabetes & Metabolism; Visit Provider Internal Medicine Endocrinology, Diabetes & Metabolism
DX: M81.0 Age-related osteoporosis without current pathological fracture (principal)
CPT/HCPCS: 96365; 96366; A4216; J3489

== ENCOUNTER → 2022-06-16 | Outpatient (CLI) | payer MEDICARE, OTHER, SELFPAY ==
[2022-06-16 15:12] LABS: Hematocrit 39.2 % (40-54); Hemoglobin 13.2 g/dL (13.0-16.5); Mean Corp Hgb Conc 33.7 g/dL (32-36); Mean Corpuscular Volume 94.9 fL (80-94); Platelet Count 171 K/mm3 (150-450); RBC Distribution Width CV 13.4 % (11.6-14.6); RBC Distribution Width SD 46.6 fl (35.1-43.9); Red Blood Count 4.13 M/mm3 (4.6-6.2); White Blood Count 5.1 K/mm3 (4.4-11.0)
[2022-06-16 15:36] LABS: Anion Gap 7 (5-15); BUN 19 mg/dL (7-18); BUN/Creat Ratio 15.8 RATIO (10-20); Chloride 105 mmol/L (98-107); EST Glomerular Filtration Rate 63 mL/min (>60); Est Glom Filt Rate - Afr Amer 77 mL/min (>60); Glucose 127 mg/dL (74-106); PSA,Total - Annual Screen 0.83 ng/mL (0.00-4.00); Potassium 3.5 mmol/L (3.5-5.1); Sodium Level 139 mmol/L (136-145)
== END | disposition home or self-care (01) ==
LOC: MTLAB 13:01
PROVIDERS: PCP Family Medicine; Referring Provider Urology; Visit Provider Urology
DX: Z12.5 Encounter for screening for malignant neoplasm of prostate (principal); D64.2 Secondary sideroblastic anemia due to drugs and toxins
CPT/HCPCS: 36415; 80048; 84153; 85027; G0103

== ENCOUNTER → 2022-11-19 | Outpatient (CLI) | payer MEDICARE, OTHER, SELFPAY | END | disposition home or self-care (01) | LOC: LABSPEC 15:13 | PROVIDERS: PCP Family Medicine; Referring Provider Physician Assistant Surgical; Visit Provider Physician Assistant Surgical | DX: J06.9 Acute upper respiratory infection, unspecified (principal) | CPT/HCPCS: 87632 ==

== ENCOUNTER 2022-12-22 08:33 | Day surgery (SDC) | payer MEDICARE, OTHER, SELFPAY ==
[2022-12-22] VITALS (9 sets, daily range): BP systolic 83–106; BP diastolic 60–68; PULSE 52–70; RESP 16–17; TEMP 36.4–36.7; O2SAT 92–99; BMI 31.9
--- NOTE | 2022-12-22 | IMM_PTH ---
PATIENT: MARIA LUZ COHEN II LOC: EN U#:[id number] AGE/SX: 72/M ROOM: RE12/22/[address]: Dr. Kaiden Gill DO : 1950 BED: DIS: 12/22/2022 SPEC #: [id number] RECD: 12/24/22 13:42 STATUS: CODY REQ #: [id number] FAY: 12/22/22 00:[address]: Kaiden Gill DEPT: IMMUNOHISTOCHEMISTRY RECD BY: Christine Yoo ENTERED: 12/24/22 13:42 SP TYPE: IMMUNO OTHR DR: Dr. Arnaldo Casiano MD Tissues: Esophagus, NOS Procedures: P53 (initial) KI-67 (add) MOC-31 (add) PHYSICIAN & INSTITUTION [place] [id number] SPECIMEN INFORMATION: Tissue Source: Distal esophagus Clinical Info: Difficulty swallowing Specimen Number: [id number] CPT code: 39284, 55606 x2 METHODOLOGY: Deparaffinized sections of prefer/formalin-fixed tissue or PAP/DQ stained slides are incubated with monoclonal/polyclonal antibodies/oligonucleotide probes. Localization is made via biotin free immunoperoxidase method. Appropriate controls are performed and reacted as expected. Results on target cell population are indicated in the following table: RESULTS: ANTIBODY / CLONE RESULT P53 (DO-7) positive, wild type pattern Ki-67 (30-9) positive, low MOC-31 (4561) positive These tests were developed and their performance characteristics determined by [facility]. They may not have been cleared or approved by the U.S. Food and Drug Administration. The FDA has determined that such clearance or approval is not necessary. The above immunohistochemical/dualISH markers are ordered and reviewed by the Pathologist. INTERPRETATION: Distal esophagus, biopsy: No evidence of dysplasia. AM:jeanne 12/25/2022
--- NOTE | 2022-12-22 08:50 | PCM.HP.BLA ---
History and Physical Date of Admission: 12/22/22 MARIA LUZ COHEN, is a 72 M who presents to the office today for initial consult. PCP OV 4. with back pain (spinal stenosis). Additional difficulty with GERD?CT abd/pel 4.08.31?small gallstones; renal nodules; small hiatal hernia? ?OV 9.8.23 Pt has previous dx of GERD. Currently taking famotidine 40mg BID. Has had increased dysphagia the last 2 months. Mostly has issues with bread and meats. Did have scopes with Dr. Castaneda 4-5 years ago. He told him he had a hiatal hernia. BM are normal. ROS Const Constitutional: Positive for fatigue and headache(s) ENT ENT: Positive for headache(s) and difficulty swallowing Gastro GI: Positive for bloating, diarrhea, heartburn, difficulty swallowing and excessive flatus; No abdominal pain, belching, change in bowel habits, change in stool character, coffee ground emesis, constipation, cramping, feeling full early, incontinent of stools, Vomiting blood/hematemesis, Blood in stool, loose stools, Black,tarry stools, nausea/dyspepsia, pain with swallowing, vomiting or other Musc Musculoskeletal: Positive for joint pain, back pain, muscle cramps, numbness, stiffness and tingling Skin Skin: No yellowing of the eye or itchy eyes Neuro Neurology: Positive for headache(s), numbness and tingling Psych Psychiatric: No anxiety and No depression Endo Endocrine: Positive for fatigue Aller/Imm Allergy/Immunologic: No itchy eyes Carlos/Lymp Hematologic/Lymphatic: Positive for easy bruising; No easy bleeding Exam Const General: cooperative and no acute distress Resp Effort & Inspection: normal respiratory effort, able to speak in complete sentences and cough Neuro General: patient alert, patient awake and patient oriented x3 Cognition: normal cognition Speech: speech normal Psych Mental Status: mental status grossly normal Mood: congruent mood Attitude: cooperative Thought Process: normal Thought Content: normal Judgment: judgment good Quality Reporting Tobacco Screening ([facility] 138) Smoking Status: Never smoker Assessment and Plan Assessment and Plan (1) Difficulty swallowing: Status: Acute Qualifiers: Dysphagia type: esophageal phase Qualified Code(s): R13.19 - Other dysphagia Plan: Esophageal dysphagia in the setting of gastroesophageal reflux disease history of Schatzki's ring. We will perform upper endoscopy to evaluate his upper GI tract with Christopher off of PPI therapy. He will also get a gastric emptying study will evaluate his hiatal hernia. We discussed possible manometry in the future as he may be a candidate for a fundoplication procedure. I have examined the patient and the H&P has been reviewed. There are no clinical changes since date of exam.
[2022-12-22] MEDS: Lactated Ringers 1,000 ML 15 ML IV (09:00)
--- NOTE | 2022-12-22 10:15 | EGD_PTH ---
PATIENT: MARIA LUZ COHEN II LOC: EN U#:[id number] AGE/SX: 72/M ROOM: RE12/22/[address]: Dr. Kaiden Gill DO : 1950 BED: DIS: 12/22/2022 SPEC #: [id number] RECD: 12/22/22 13:48 STATUS: CODY REQ #: [id number] FAY: 12/22/22 10:[address]: Kaiden Gill DEPT: SURGICAL PATHOLOGY RECD BY: Mary Ferrari ENTERED: 12/23/22 10:50 SP TYPE: EGD BIOPSY JÚNIOR DR: Dr. Arnaldo Casiano MD Tissues: Esophagus, NOS Procedures: Special Stain Group II Surgery Specimen Level IV Alcian Blue/PAS (control) HEADER OPERATION: EGD - PH probe and biopsy PRE-OP DIAGNOSIS: Difficulty swallowing TISSUE SUBMITTED: Distal esophagus biopsy MICROSCOPIC DIAGNOSIS Distal esophagus, biopsy: Gastroesophageal junctional mucosa with chronic inflammation. 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 Focal changes of reflux. No evidence of dysplasia. See comment. AM:jeanne 12/24/2022 COMMENT Alcian blue/PAS stain with matched control supports the above diagnosis. Immunohistochemistry ([id number]) for P53 and Ki-67 will be performed and results will be reported separately. MICROSCOPIC DESCRIPTION Slides are reviewed. GROSS DESCRIPTION Received in fixative is one container labeled with the patient's name and designated distal esophagus. The specimen consists of multiple irregular fragments of light sin soft tissue that in aggregate measure 1.5 x 0.5 x 0.1 cm. The specimen is totally submitted in one cassette. / AM:jeanne 12/23/2022 TC:3 CPT: 20591, 09446
--- NOTE | 2022-12-22 10:57 | OP.CCLET_ITS ---
12/22/2022 Arnaldo Casiano [address] [place] [address] Re : Upper GI endoscopy procedure for Garcia Santana Dear Dr. Casiano This procedure was performed on Thursday, December 22, 2022. My impressions and recommendations are as follows: Impressions : - Esophageal mucosal changes suspicious for short-segment Anthony's esophagus. Biopsied. - LA Grade B reflux esophagitis with no bleeding. Biopsied. - Medium-sized hiatal hernia. - No gross lesions in the entire stomach. - No gross lesions in the first portion of the duodenum. - The STAFFORD pH capsule was positioned 36 cm from the incisors, which was 6 cm proximal to the GE junction. Recommendations : - Discharge patient to home. - Resume previous diet. - Continue present medications. - Await pathology results. - Repeat upper endoscopy in 1 year for surveillance of Anthony's esophagus. My findings are described in the full procedure note, which is enclosed. If I can be of further assistance, please feel free to contact me at . Sincerely, Kaiden Gill, 12/22/2022 10:56:40 AM This report has been signed electronically.
--- NOTE | 2022-12-22 10:57 | OP.EGD_ITS ---
Patient Name: Garcia Santana Procedure Date: 12/22/2022 10:36 AM Date of : 1950 Age: 72 Procedure: Upper GI endoscopy Indications: Heartburn, Suspected Anthony's esophagus Providers: Kaiden Gill DO Medicines: Monitored Anesthesia Care Patient Profile: This is a 72 year old male. Refer to note in patient chart for documentation of history and physical. Patient has symptoms of chronic cough and chronic heartburn. Complications: No immediate complications. Procedure: Pre-Anesthesia Assessment: - Prior to the procedure, a History and Physical was performed, and patient medications and allergies were reviewed. The patient is competent. The risks and benefits of the procedure and the sedation options and risks were discussed with the patient. All questions were answered and informed consent was obtained. Patient identification and proposed procedure were verified by the physician in the pre-procedure area. Mental Status Examination: alert and oriented. Airway Examination: normal oropharyngeal airway and neck mobility. Respiratory Examination: clear to auscultation. CV Examination: normal. Prophylactic Antibiotics: The patient does not require prophylactic antibiotics. Prior Anticoagulants: The patient has taken no anticoagulant or antiplatelet agents. ASA Grade Assessment: II - A patient with mild systemic disease. After reviewing the risks and benefits, the patient was deemed in satisfactory condition to undergo the procedure. The anesthesia plan was to use monitored anesthesia care (MAC). Immediately prior to administration of medications, the patient was re-assessed for adequacy to receive sedatives. The heart rate, respiratory rate, oxygen saturations, blood pressure, adequacy of pulmonary ventilation, and response to care were monitored throughout the procedure. The physical status of the patient was re-assessed after the procedure. After obtaining informed consent, the endoscope was passed under direct vision. Throughout the procedure, the patient's blood pressure, pulse, and oxygen saturations were monitored continuously. The gastroscope was introduced through the mouth, and advanced to the second part of duodenum. The upper GI endoscopy was accomplished without difficulty. The patient tolerated the procedure well. Scope In: 10:40:49 AM Scope Out: 10:47:33 AM Total Procedure Duration Time 0 hours 6 minutes 44 seconds Findings: There were esophageal mucosal changes suspicious for short-segment Anthony's esophagus present in the lower third of the esophagus. The maximum longitudinal extent of these mucosal changes was 4 cm in length. Mucosa was biopsied with a cold forceps for histology in a targeted manner at intervals of 1 cm in the lower third of the esophagus. One specimen bottle was sent to pathology. Biopsies were taken with a cold forceps for histology. Verification of patient identification for the specimen was done. Estimated blood loss was minimal. LA Grade B (one or more mucosal breaks greater than 5 mm, not extending between the tops of two mucosal folds) esophagitis with no bleeding was found 32 to 36 cm from the incisors. Biopsies were taken with a cold forceps for histology. Verification of patient identification for the specimen was done. Estimated blood loss was minimal. The STAFFORD capsule with delivery system was introduced through the mouth and advanced into the esophagus, such that the STAFFORD pH capsule was positioned 36 cm from the incisors, which was 6 cm proximal to the GE junction. Suction was applied to the well of the STAFFORD pH capsule to suck in the adjacent mucosa of the esophagus using the external vacuum pump set at a minimum vacuum pressure of 550 mmHg for 30 seconds. The STAFFORD pH capsule was then deployed by depressing the plunger on top of the handle to advance the locking pin into the mucosa, thereby attaching the capsule to the esophagus. The plunger was then rotated a quarter turn clockwise to release the capsule from the delivery system. The delivery system was then withdrawn. Endoscopy was utilized for probe placement and diagnostic evaluation. A medium-sized hiatal hernia was present. No gross lesions were noted in the entire examined stomach. No gross lesions were noted in the first portion of the duodenum. Impression: - Esophageal mucosal changes suspicious for short-segment Anthony's esophagus. Biopsied. - LA Grade B reflux esophagitis with no bleeding. Biopsied. - Medium-sized hiatal hernia. - No gross lesions in the entire stomach. - No gross lesions in the first portion of the duodenum. - The STAFFORD pH capsule was positioned 36 cm from the incisors, which was 6 cm proximal to the GE junction. Recommendation: - Discharge patient to home. - Resume previous diet. - Continue present medications. - Await pathology results. - Repeat upper endoscopy in 1 year for surveillance of Anthony's esophagus. Procedure Code(s): --- Professional --- 41987, Esophagogastroduodenoscopy, flexible, transoral; with biopsy, single or multiple CPT copyright 2021 [employer]. All rights reserved. The codes documented in this report are preliminary and upon [employer] review may be revised to meet current compliance requirements. Kaiden Gill DO 12/22/2022 10:56:40 AM This report has been signed electronically. Number of Addenda: 0 Note Initiated On: 12/22/2022 10:36 AM
--- NOTE | 2022-12-22 12:05 | SUR.PHASEII ---
reviewed ph probe use
== END 2022-12-22 12:09 | disposition home or self-care (01) ==
LOC: EN 08:40 → AC 08:42
PROVIDERS: PCP Family Medicine; Referring Provider Family Medicine; Visit Provider Internal Medicine Gastroenterology
PROC: (CPT 43235; principal; 2022-12-22 10:10)
DX: R13.19 Other dysphagia (principal); K44.9 Diaphragmatic hernia without obstruction or gangrene; K20.90 Esophagitis, unspecified without bleeding
CPT/HCPCS: 43239; 81002; 88305; 88313; 88341; 88342; J7120; J2405

== ENCOUNTER → 2022-12-30 | Outpatient (CLI) | payer MEDICARE, OTHER, SELFPAY ==
--- NOTE | 2022-12-30 12:12 | CT_ITS ---
HISTORY: new, severe headache STAT. TECHNIQUE: Multiple axial images were obtained of the head without intravenous contrast. A radiation dose optimization technique was used for this scan. 252 images. COMPARISON: MR 01/16/2014. FINDINGS: BRAIN PARENCHYMA: Multiple foci and zones of low attenuation in the bilateral cerebral white matter compatible with chronic small vessel ischemic gliosis. No acute intra-axial hemorrhage identified. CSF SPACES: Chronic mild volume loss. No midline shift or other significant mass effect. No acute extra-axial hemorrhage seen. OTHER: Intact calvarium. Mild fluid in the left maxillary sinus with postoperative change of the maxilla. Bilateral lens resections. CT/Brain/Head without Contrast IMPRESSION: No acute intracranial process identified. Mild chronic involutional and white matter changes. Electronically Signed: Aspen Arreola MD at 13:58 EST ,
== END | disposition home or self-care (01) ==
LOC: CT 12:10
PROVIDERS: PCP Family Medicine; Referring Provider Family Medicine; Visit Provider Family Medicine
DX: R51.9 Headache, unspecified (principal)
CPT/HCPCS: 70450

== ENCOUNTER 2023-01-14 18:55 | Emergency (ER) | payer MEDICARE, OTHER, SELFPAY ==
[2023-01-14 18:55] VITALS: BP 125/78; PULSE 97; RESP 16; TEMP 36.6; O2SAT 98; BMI 30.5
--- NOTE | 2023-01-14 19:06 | ED.VIS.LOWEX ---
HPI History of Present Illness Chief Complaint: Lower Extremity Injury Narrative Narrative: 72-year-old male past medical history of hypertension, states he fell a few years back and shattered his left hip. This required plate and screws by Dr. Salvador. He states over the last few hours, he has had pain in his left hip. He denies any fevers or chills, no nausea or vomiting. On occasion he might have low back pain, but denies any loss of bowel or bladder, no saddle anesthesia, no other symptoms. 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 He may have aggravated this. He has soreness to his left greater trochanter area. [facility] Medical History (Updated 01/14/23 @ 20:53 by Yusuf Jurado MD) Alcohol use Barretts esophagus (01/05/23) Cancer Cardiology follow-up encounter Chronic cough Closed left hip fracture Dietary restriction Difficulty swallowing Eczema Essential hypertension Fracture of radial head, left, closed Fracture of right patella Fracture of right radius GERD (gastroesophageal reflux disease) Gout History of echocardiogram History of hiatal hernia History of irregular heartbeat History of renal cell cancer History of renal disease History of stress test Hyperlipidemia Hyperuricemia Migraine headache Non-smoker Obesity Osteopenia Osteoporosis Personal history of supraventricular tachycardia Seasonal allergies Spinal stenosis Wears glasses Wears hearing aid Home Medications allopurinol 100 mg tablet 200 mg PO DAILY PRN gout 12/13/17 [History Last Taken 03/18/18] loratadine 10 mg tablet (Claritin) 10 mg PO DAILY allergies 04/05/20 [History Last Taken Unknown] hydrochlorothiazide 12.5 mg capsule 12.5 mg PO BID 02/20/21 [History Last Taken Unknown] lisinopril 20 mg tablet 20 mg PO BID HTN 02/20/21 [History Last Taken 06/12/21] ubrogepant 100 mg tablet (Ubrelvy) 100 mg PO ONCE PRN migraines 02/20/21 [History Last Taken Unknown] diltiazem HCl 120 mg capsule,extended release 24 hr, controlled (DILT-XR) 120 mg PO DAILY 12/19/22 [History Last Taken Unknown] famotidine 40 mg tablet 40 mg PO Q12H PRN GERD 01/14/23 [History Last Taken Unknown] Allergy/AdvReac Type Severity Reaction Status Date / Time Egg Derived Allergy Severe Food Verified 01/14/23 18:57 Allergy febuxostat [From Uloric] Allergy Intermediate Other Verified 01/14/23 18:57 Penicillins Allergy Anaphylaxis Verified 01/14/23 18:57 omeprazole AdvReac Intermediate Rash Verified 01/14/23 18:57 pantoprazole [From Protonix] AdvReac Intermediate Hives Verified 01/14/23 18:57 Corticosteroids AdvReac Hypertensio Verified 01/14/23 18:57 (Glucocorticoids) n [steroids] Milk Containing Products AdvReac Diarrhea Verified 01/14/23 18:57 (Dairy) [Milk Containing Products] Family History Mother Diabetes Dementia Heart disease tachycardia Father Heart disease Leukemia Surgical History History of colonoscopy History of esophagogastroduodenoscopy (EGD) History of hip surgery History of mandibular surgery History of partial nephrectomy Social History household members: spouse current occupational status: retired Smoking Status: Never smoker alcohol intake: current alcohol intake frequency: a few times a week Alcohol type: beer substance use type: does not use diet: lactose free caffeine: No what type of physical activity do you participate in: walking and bicycling frequency: 3-4 times per week ROS ROS ED ROS Narrative Constitutional: No fever, no chills. HEENT: No sore throat. No neck pain. No loss of vision. No rhinorrhea. Cardiovascular: No chest pain. No palpitations. No pedal edema. Respiratory: No cough, no shortness of breath. Abdominal: No abdominal pain. No nausea. No vomiting. Genitourinary: No dysuria. No hematuria. Musculoskeletal: No myalgias. Left hip pain, worse with movement and touching the area. Occasional low back pain. Neurologic: No headaches. No dizziness. No lightheadedness. No saddle anesthesia. No loss of bowel or bladder. Skin: No rash. No change in color. Psychiatric: No depression. No anxiety. EXAM Physical Exam Narrative Exam Narrative: Afebrile. Vital signs noted. HEENT: Normocephalic. Atraumatic. PERRL, EOMI. Neck soft and supple. No point tenderness or step off. Cardiovascular: Regular rate and rhythm. No murmurs, rubs, or gallops appreciated. Respiratory: No tachypnea. Lungs clear to auscultation bilaterally. Gastrointestinal: Abdomen soft, nontender, with normoactive bowel sounds. No rebound or guarding. Neurological: Awake. Alert. Nonfocal, nonlateralizing. Skin: No rash. Normal color. No pallor. Musculoskeletal: No pedal edema. Full range of motion extremities. Pelvis is stable. Full range of motion of left hip including flexion extension. Flexion extension of left knee intact. Palpable dorsalis pedis pulse, left. No pain with logrolling of femur. No clinical dislocation of left hip. Const Vital Signs: 01/14/23 18:55 Temperature 98 F Temperature Source Temporal Pulse Rate 97 Respiratory Rate 16 Blood Pressure 125/78 H Blood Pressure Mean 93 Pulse Ox 98 Oxygen Delivery Method Room Air MDM MDM MDM Narrative Medical decision making narrative: In the differential diagnosis is lumbar radiculopathy versus loosening of the hardware versus occult fracture versus bursitis or hip strain. Patient declines analgesia, usually takes Tylenol but even declined this. X-rays will be obtained of the left hip and pelvis in 3 views and interpreted by myself independently. On my independent interpretation, there are postsurgical changes but no evidence of periprosthetic fracture. I reviewed the radiology report which confirms my independent interpretation. At this point in time, I feel that his pain may be more of a bursitis or muscular in nature. He will take [id number] analgesics as needed and follow-up with his primary care provider. He can also follow-up with his orthopedic surgeon as needed. Return instructions to the emergency department were reviewed. Disposition is discharged home in stable condition. History & Record Review Discussion w/independent historian: Patient Radiography Diagnostic Testing: Clinical Impression(s) from Imaging Studies Hip/Pelvis X-Ray 01/14/23 19:13 IMPRESSION: Degenerative and postoperative change with healed fracture status post ORIF. Electronically Signed: Mukesh Guardado MD at 20:49 EST , Discharge Plan Triage Chief Complaint: Lower Extremity Injury ED Provider: Reodica,Yusuf Dx/Rx/DC Orders Clinical Impression: Hip strain, Hip pain Instructions: ED Arthralgia, ED Hip Strain Prescriptions: No Action loratadine [Claritin] 10 mg tablet 10 mg PO DAILY hydrochlorothiazide 12.5 mg capsule 12.5 mg PO BID Patient Comments: TAKES 2 CAPSULES IN MORNING PER MD INSTRUCTIONS lisinopril 20 mg tablet 20 mg PO BID Patient Comments: TAKE 1 TABLET BY MOUTH TWICE DAILY Ubrelvy 100 mg tablet 100 mg PO ONCE PRN (Reason: migraines) Patient Comments: Take 1 (one) Tablet PIERRE once daily as needed for migraine allopurinol 100 MG tablet 200 mg PO DAILY PRN (Reason: gout) diltiazem HCl [DILT-XR] 120 mg capsule,ext.rel 24h degradable 120 mg PO DAILY famotidine 40 mg tablet 40 mg PO Q12H PRN (Reason: GERD) Primary Care Provider: Arnaldo Casiano Referrals: Arnaldo Casiano MD [Primary Care Provider] - 1 Week if not improving Activity Restrictions/Additional Instructions: Tylenol as needed for pain. You may also follow-up with Dr. Salvador, your orthopedic surgeon as needed. Disposition Disposition: Home, Self Care
--- NOTE | 2023-01-14 19:13 | RAD_ITS ---
STUDY: X-RAY - PELVIS AND LEFT HIP REASON FOR EXAM: Male, 72 years old. Pain TECHNIQUE: 5 views of the pelvis and hip. COMPARISON: April 02, 2018 FINDINGS: There is a non-specific bowel gas pattern. Normal visualized soft tissue structures. Normal bilateral iliac wings, sacroiliac joints and visualized sacrum. Normal bilateral superior and inferior pubic rami. Normal pubic symphysis. Normal bilateral ischial tuberosities. Normal visualized femoral head. There is healed intertrochanteric left proximal femur fracture status post ORIF with intramedullary radha extending to the distal femur and screws extending to the femoral head. Normal acetabulum. There is mild articular joint space narrowing of the hip. There is no acute fracture. RAD/HIP, UNI W/ Pelvis 2-3 Views IMPRESSION: Degenerative and postoperative change with healed fracture status post ORIF. Electronically Signed: Mukesh Guardado MD at 20:49 EST ,
== END 2023-01-14 20:59 | disposition home or self-care (01) ==
PROVIDERS: Emergency Provider Emergency Medicine; PCP Family Medicine; Referring Provider Emergency Medicine; Visit Provider Emergency Medicine
DX: S73.102A Unspecified sprain of left hip, initial encounter (principal); I10 Essential (primary) hypertension; E78.5 Hyperlipidemia, unspecified; M10.9 Gout, unspecified; G43.909 Migraine, unspecified, not intractable, without status migrainosus; Z79.899 Other long term (current) drug therapy; K21.9 Gastro-esophageal reflux disease without esophagitis; Z90.5 Acquired absence of kidney; M25.552 Pain in left hip
CPT/HCPCS: 73502; 99282

== ENCOUNTER 2023-02-08 19:45 | Emergency (ER) | payer MEDICARE, OTHER, SELFPAY ==
[2023-02-08 19:46] VITALS: BP 104/68; PULSE 72; RESP 15; TEMP 36.3; O2SAT 97; BMI 30.2
--- NOTE | 2023-02-08 20:48 | EX.ED.DYSGE1 ---
HPI History of Present Illness Chief Complaint: Other, Pain/Inj Narrative Narrative: Patient presents with soreness in the tip of his penis. Patient had a flulike illness over . He was written for a Z-Joon on the . He took this for several days. His flulike illness is gone. But he now has some irritation of the tip of the penis. It is mostly under the foreskin. He is urinating just fine. No dysuria frequency or urgency. No difficulty starting or stopping. He has no fevers or chills. He states he is tired today but that is because he took 50 mg of Benadryl twice. He had contacted his primary physician and the concern was this was an allergic reaction. He states Benadryl normally makes him feel tired but other than that he feels fine. [facility] Medical History (Updated 02/08/23 @ 20:[address] Kenton Dillard MD) Alcohol use Barretts esophagus (01/05/23) Cancer Cardiology follow-up encounter Chronic cough Closed left hip fracture Dietary restriction Difficulty swallowing Eczema Essential hypertension Fracture of radial head, left, closed Fracture of right patella Fracture of right radius GERD (gastroesophageal reflux disease) Gout History of hiatal hernia History of irregular heartbeat History of renal cell cancer History of renal disease History of stress test Hyperlipidemia Hyperuricemia Migraine headache Non-smoker Obesity Osteoporosis Personal history of supraventricular tachycardia Seasonal allergies Spinal stenosis Wears glasses Wears hearing aid Home Medications allopurinol 100 mg tablet 200 mg PO DAILY PRN gout 12/13/17 [History Last Taken 03/18/18] loratadine 10 mg tablet (Claritin) 10 mg PO DAILY allergies 04/05/20 [History Last Taken Unknown] hydrochlorothiazide 12.5 mg capsule 12.5 mg PO BID 02/20/21 [History Last Taken Unknown] lisinopril 20 mg tablet 20 mg PO BID HTN 02/20/21 [History Last Taken 06/12/21] ubrogepant 100 mg tablet (Ubrelvy) 100 mg PO ONCE PRN migraines 02/20/21 [History Last Taken Unknown] diltiazem HCl 120 mg capsule,extended release 24 hr, controlled (DILT-XR) 120 mg PO DAILY 12/19/22 [History Last Taken Unknown] famotidine 40 mg tablet 40 mg PO Q12H PRN GERD 01/14/23 [History Last Taken Unknown] Allergy/AdvReac Type Severity Reaction Status Date / Time Egg Derived Allergy Severe Food Verified 02/08/23 19:50 Allergy febuxostat [From Uloric] Allergy Intermediate Other Verified 02/08/23 19:50 Penicillins Allergy Anaphylaxis Verified 02/08/23 19:50 omeprazole AdvReac Intermediate Rash Verified 02/08/23 19:50 pantoprazole [From Protonix] AdvReac Intermediate Hives Verified 02/08/23 19:50 Corticosteroids AdvReac Hypertensio Verified 02/08/23 19:50 (Glucocorticoids) n [steroids] Milk Containing Products AdvReac Diarrhea Verified 02/08/23 19:50 (Dairy) [Milk Containing Products] Family History Mother Diabetes Dementia Heart disease tachycardia Father Heart disease Leukemia Surgical History History of colonoscopy History of esophagogastroduodenoscopy (EGD) History of hip surgery History of mandibular surgery History of partial nephrectomy Social History household members: spouse current occupational status: retired Smoking Status: Never smoker alcohol intake: current alcohol intake frequency: a few times a week Alcohol type: beer substance use type: does not use diet: lactose free caffeine: No what type of physical activity do you participate in: walking and bicycling frequency: 3-4 times per week ROS ROS ED Constitutional Constitutional ED: Denies chills, fever(s) or sweats Eyes Eyes: Denies change in vision ENT ENT ED: Denies ear pain, rhinorrhea or sore throat Cardiovascular Cardiovascular: Denies chest pain or palpitations Respiratory/Chest Respiratory/Chest: Denies cough, dyspnea or sputum Gastrointestinal Gastrointestinal: Denies abdominal pain, diarrhea, nausea or vomiting Genitourinary Genitourinary ED: Reports other Details: See his present illness ; Denies dysuria, hematuria or urinary frequency Musculoskeletal Musculoskeletal: Denies arthralgias Integumentary Reports rash; Denies abscess Hematologic/Lymphatic Hematologic/Lymphatic: Denies easy bleeding or easy bruising Allergic/Immunologic Allergic/Immunologic ED: Denies urticaria EXAM Physical Exam Narrative Exam Narrative: General: Patient awake alert no acute distress pleasant. He brings in a list of his concerns and the timing of them to help with his evaluation. Very nontoxic. HEENT shows no trauma. No thrush. Lungs are clear and saturations are normal at 97% on room air. Heart is regular. Abdomen is benign Inguinal area is normal. Testicles nontender. There are not ulcerated lesions on the penis. There is some erythema moisture and slight swelling of the foreskin and a few spots on the glans more consistent with balanitis. Const Vital Signs: 02/08/23 19:46 Temperature 97.3 F L Temperature Source Temporal Pulse Rate 72 Respiratory Rate 15 Blood Pressure 104/68 Blood Pressure Mean 80 Pulse Ox 97 Oxygen Delivery Method Room Air MDM MDM MDM Narrative Medical decision making narrative: I think this patient probably has overgrowth of yeast after being on antibiotics. We will get him on antifungal cream. He will follow-up with his primary physician. If he has trouble urinating, fevers, swelling or any other concerns he should return Discharge Plan Triage Chief Complaint: Other, Pain/Inj ED Provider: Kenton Dillard Dx/Rx/DC Orders Clinical Impression: Balanitis, History of antimicrobial use Instructions: ED Balanitis Prescriptions: No Action loratadine [Claritin] 10 mg tablet 10 mg PO DAILY hydrochlorothiazide 12.5 mg capsule 12.5 mg PO BID Patient Comments: TAKES 2 CAPSULES IN MORNING PER MD INSTRUCTIONS lisinopril 20 mg tablet 20 mg PO BID Patient Comments: TAKE 1 TABLET BY MOUTH TWICE DAILY Ubrelvy 100 mg tablet 100 mg PO ONCE PRN (Reason: migraines) Patient Comments: Take 1 (one) Tablet PIERRE once daily as needed for migraine allopurinol 100 MG tablet 200 mg PO DAILY PRN (Reason: gout) diltiazem HCl [DILT-XR] 120 mg capsule,ext.rel 24h degradable 120 mg PO DAILY famotidine 40 mg tablet 40 mg PO Q12H PRN (Reason: GERD) Primary Care Provider: Arnaldo Casiano Referrals: Arnaldo Casiano MD [Primary Care Provider] - 1 Week if not improving Activity Restrictions/Additional Instructions: Use the clotrimazole cream twice a day for the next 2-3 weeks Disposition Disposition: Home, Self Care
--- OUTSIDE RECORDS SUMMARY | 2023-02-08 21:10 | XMS RPT_ITS | CCD ---
Author Name Unknown Address [address] [place] [address] Organization [facility] Care Team Providers Care Vp Corporate Development Name Role Phone Wesley ACOSTA, Flakito Myers Unavailable Allergies Allergy Classification Reported Allergen(s) Allergy Type Date of Onset Reaction(s) Facility (2 sources) egg; Translations: [EGGS] food allergy 1 [facility] Work Phone: (2 sources) [place] Animalia; Translations: [ANIMALS] allergy to substance 2 [facility] Work Phone: (2 sources) Penicillin G Drug Allergy 1 [facility] Work Phone: (2 sources) Sulfacetamide Drug Allergy 1 [facility] Work Phone: (2 sources) PLANT POLLENS; Translations: [PLANT POLLENS] allergy to substance 1 hay fever [facility] Work Phone: (2 sources) DAIRY; Translations: [DAIRY] food allergy 1 [facility] Work Phone: Medications Completed/Discontinued Medications Medication Drug Class(es) Dates Sig (Normalized) Sig (Original) allopurinol 100 mg oral tablet (2 sources) Xanthine Oxidase Inhibitor Start: 1 take 1 tablet by mouth once daily ALLOPURINOL 100 MG TABS 1 tablet by mouth once a day allopurinol [id number] Teralanna Lovett RN Calcium (2 sources) Phosphate Binder, Calcium Start: 1 take 1 capsule by mouth twice daily CALCIUM 250 MG CAPS 1 capsule by mouth twice a day CALCIUM Liset Lovett RN Cholecalciferol (2 sources) Vitamin D Start: 1 take 1 tablet by mouth once daily RA VITAMIN D-3 25 MCG (1000 UT) TABS 1 tablet by mouth once a day cholecalciferol (vitamin d3) [id number] Liset Lovett RN hydroCHLOROthiazide 12.5 mg oral tablet (2 sources) Thiazide Diuretic Start: 1 take 2 tablets by mouth once daily HYDROCHLOROTHIAZIDE 12.5 MG TABS 2 tablet by mouth once a day (25 mg) hydrochlorothiazide [id number] Liset Lovett RN lisinopril 20 mg oral tablet (2 sources) Angiotensin Converting Enzyme Inhibitor Start: 1 take 1 tablet by mouth twice daily LISINOPRIL 20 MG TABS 1 tablet by mouth twice a day lisinopril [id number] Liset Lovett RN omeprazole 40 mg delayed release oral capsule (2 sources) Proton Pump Inhibitor Start: 1 take 1 capsule by mouth once daily OMEPRAZOLE 40 MG CPDR 1 capsule by mouth once a day omeprazole [id number] Liset Lovett RN vitamin k2 0.04 mg oral tablet (2 sources) Start: 1 take 1 tablet by mouth once daily VITAMIN K2 40 MCG TABS 1 tablet by mouth once a day vitamin k2 [id number] Liset Lovett RN Problems Active Problems Problem Classification Problem Date Documented Date Episodic/Chronic Joint disorders and dislocations; trauma-related (2 sources) Derangement of medial meniscus; Translations: [Other meniscus derangements, other medial meniscus, right knee] Onset: 08-07-2020 08-07-2020 Chronic Osteoarthritis (2 sources) Osteoarthritis of right knee joint; Translations: [Unilateral primary osteoarthritis, right knee] Onset: 08-07-2020 08-07-2020 Chronic Other and unspecified benign neoplasm (2 sources) Hemangioma; Translations: [Hemangioma unspecified site] Onset: 04-22-2021 04-22-2021 Episodic Other diseases of kidney and ureters (1 source) Renal mass; Translations: [Other specified disorders of kidney and ureter] Onset: 05-10-2021 05-10-2021 Chronic Spondylosis; intervertebral disc disorders; other back problems (4 sources) Spinal stenosis; Translations: [Spinal stenosis, site unspecified] Onset: 04-22-2021 04-22-2021 Episodic Past or Other Problems Problem Classification Problem Date Documented Da te Episodic/Chronic Fracture of lower limb (2 sources) Fracture of patella; Translations: [Unspecified fracture of unspecified patella, initial encounter for closed fracture] Onset: 08-07-2020 08-07-2020 Episodic Fracture of upper limb (2 sources) Closed fracture of neck of right radius; Translations: [Nondisplaced fracture of neck of right radius, subsequent encounter for closed fracture with delayed healing] Onset: 07-11-2020 07-11-2020 Episodic Other non-traumatic joint disorders (4 sources) Hemarthrosis of right knee; Translations: [Hemarthrosis, right knee] Onset: 07-30-2020 08-07-2020 Episodic Unclassified (2 sources) Problem Results Test Name Value Interpretation Reference Range Facil ity Vital Signs Date Time Vital Sign Value Performing Clinician Facility NEGATED: Highlighted [id number] 10:34-0400 Body height 177.8 cm Bharati Medina AT [facility] Work Phone: NEGATED: Highlighted [id number]:[id number] Body height 178 cm Bharati Medina AT [facility] Work Phone: NEGATED: Highlighted [id number] 10:34-0400 Body mass index (BMI) [Ratio] 29.23 kg/m2 Bharati Medina AT [facility] Work Phone: NEGATED: Highlighted [id number] 10:34-040 Body weight 92.08 kg Bharati Medina AT [facility] Work Phone: NEGATED: Highlighted [id number] 10:34-040 Body weight 92 kg Bharati Medina AT [facility] Work Phone: NEGATED: Highlighted [id number] 08:46-0400 Body height 177.8 cm Lali Rodolfo AT [facility] Work Phone: NEGATED: Highlighted [id number] 08:46-0400 Body height 178 cm Lali Rodolfo AT [facility] Work Phone: NEGATED: Highlighted [id number] 08:46-0400 Body mass index (BMI) [Ratio] 29.23 kg/m2 Lali Rodolfo AT [facility] Work Phone: NEGATED: Highlighted [id number] 08:46-0400 Body weight 92.08 kg Lali Rodolfo AT [facility] Work Phone: NEGATED: Highlighted [id number] 08:46-0400 Body weight 92 kg Lali Rodolfo AT [facility] Work Phone: Procedures Date Procedure Procedure Detail Performing Clinician Start: 05-10-2021 End: 05-10-2021 BP scrn no perf at interval Flakito Olson MD Work Phone: Start: 05-10-2021 End: 05-10-2021 Calc BMI out nrm freda nof/u Flakito Olson MD Work Phone: Start: 05-10-2021 End: 05-10-2021 Current tobacco non-user cad cap copd pv dm Flakito Olson MD Work Phone: Start: 05-10-2021 End: 05-10-2021 Docrev cur meds by elig clin Flakito Olson MD Work Phone: Start: 05-10-2021 End: 05-10-2021 Falls plan of care not done for unspecified reasons Flakito Olson MD Work Phone: Start: 05-10-2021 End: 05-10-2021 Falls risk not documented - reason not given Flakito Olson MD Work Phone: Start: 05-10-2021 End: 05-10-2021 No doc of pain Flakito Olson MD Work Phone: Start: 05-10-2021 End: 05-10-2021 Patient encounter procedure Flakito Olson MD Work Phone: Start: 05-10-2021 End: 05-10-2021 Pt falls assess docd 2/> falls/fall w/injury/yr Flakito Olson MD Work Phone: Start: 04-22-2021 End: 04-22-2021 BP scrn no perf at interval Flakito Olson MD Work Phone: Start: 04-22-2021 End: 04-22-2021 Calc BMI abv up freda f/u Flakito Olson MD Work Phone: Start: 04-22-2021 End: 04-22-2021 Current tobacco non-user cad cap copd pv dm Flakito Olson MD Work Phone: Start: 04-22-2021 End: 04-22-2021 Docrev cur meds by elig clin Flakito Olson MD Work Phone: Start: 04-22-2021 End: 04-22-2021 No doc of pain Flakito Olson MD Work Phone: Start: 04-22-2021 End: 04-22-2021 Patient encounter procedure Flakito Olson MD Work Phone: NEGATED: Highlighted rowStart: 05-10-2021 End: 05-10-2021 Documentation of current medications Bharati Medina AT NEGATED: Highlighted rowStart: 04-22-2021 End: 04-22-2021 Documentation of current medications Lali Reynolds AT Plan of Treatment Date Care Activity Detail Author Start: 05-10-2021 End: 05-10-2021 Patient encounter procedure Appointment [facility] Work Phone: Start: 04-22-2021 End: 04-22-2021 Patient encounter procedure Appointment [facility] Work Phone: Start: 04-22-2021 End: 04-22-2021 Mri spinal canal lumbar w/o & w/contr matrl MRI lumbar with and without contrast [facility] Work Phone: Start: 04-22-2021 End: 04-22-2021 Mri spinal canal thoracic w/o & w/contr matrl MRI thoracic with and without contrast [facility] Work Phone: Social History Date Type Detail Facility Start: 04-22-2021 End: 05-10-2021 Assertion Unknown if ever smoked [facility] Work Phone: NEGATED: Highlighted rowStart: 05-10-2021 End: 05-10-2021 Employment detail Employment detail [facility] Work Phone: Evaluation note Note Date & Type Note Facility Evaluation note There may be informa tion available, but it has not been provided by the sender. [facility] Work Phone: Instructions Note Date & Type Note Facility [facility] Work Phone: Instructions Note Date & Type Note Facility [facility] Work Phone: Chief Complaint Chief Complaint Description Start Date mid back pain Preliminary chief co mplaint data, not yet signed by the author as of Chief Complaint Description Start Date lower back pain Preliminary chief co mplaint data, not yet signed by the author as of Advance Directives There may be information available, but it has not been provided by the sender. There may be information available, but it has not been provided by the sender. Family History There may be information available, but it has not been provided by the sender.There may be information available, but it has not been provided by the sender. Additional Source Comments Reason for Visit (unrecogniz ed section and content) Reason For Visit Description Start Date Test Result Preliminary reason f or visit data, not yet signed by the author as of lower back pain FOR RECORDS PERTAINING TO PATIENTS WHO ARE OR HAVE BEEN ENROLLED IN A CHEMICAL DEPENDENCY/SUBSTANCEABUSE PROGRAM, SOME INFORMATION MAY BE OMITTED. This clinical summary was aggregated from multiple sources. Caution should be exercised in using it in the provision of clinical care. This summary normalizes information from multiple sources, and as a consequence, information in this document may materially change the coding, format and clinical context of patient data. In addition, data may be omitted in some cases. CLINICAL DECISIONS SHOULD BE BASED ON THE PRIMARY CLINICAL RECORDS. [facility] [employer] provides no warranty or guarantee of the accuracy or completeness of information in this document.
[2023-02-08] MEDS: Clotrimazole 1 APPLIC Tube TOPICAL (21:18)
== END 2023-02-08 21:20 | disposition home or self-care (01) ==
LOC: ED 21:09
PROVIDERS: Emergency Provider Emergency Medicine; PCP Family Medicine; Visit Provider Emergency Medicine
DX: N48.1 Balanitis (principal); I10 Essential (primary) hypertension; E78.5 Hyperlipidemia, unspecified; Z85.89 Personal history of malignant neoplasm of other organs and systems; M10.9 Gout, unspecified; Z79.899 Other long term (current) drug therapy; G43.909 Migraine, unspecified, not intractable, without status migrainosus; K21.9 Gastro-esophageal reflux disease without esophagitis; Z90.5 Acquired absence of kidney
CPT/HCPCS: 99284

== ENCOUNTER 2023-02-12 09:46 | Emergency (ER) | payer MEDICARE, OTHER, SELFPAY ==
[2023-02-12 09:47] VITALS: BP 108/73; BP 94/56; PULSE 68; PULSE 73; RESP 16; TEMP 36.8; O2SAT 100; O2SAT 98; BMI 29.4
[2023-02-12 09:48] VITALS: BP 96/63; PULSE 63; RESP 16; TEMP 36.7; O2SAT 97
--- NOTE | 2023-02-12 10:11 | RAD_ITS ---
EXAM: XR CHEST, 2 VIEWS CLINICAL INDICATION: Cough, wheezing TECHNIQUE: Frontal and lateral views of the chest. COMPARISON: 02/10/2022. FINDINGS: LUNGS AND PLEURAL SPACES: Equivocal 1.4 cm pulmonary nodule containing multiple lucencies overlying the left posterior sixth rib. Pulmonary hyperinflation and flattening of the hemidiaphragms.. Minimal subsegmental atelectasis in left lung base. No pneumothorax. No effusion. HEART: Unremarkable. Cardiac silhouette not enlarged. MEDIASTINUM: Central airways and mediastinal contour are unremarkable. BONES/JOINTS: Unremarkable. No acute fracture. SOFT TISSUES: Unremarkable. RAD/Chest PA and Lateral IMPRESSION: 1. Equivocal 1.4 cm pulmonary nodule containing small lucencies overlying the left posterior sixth rib. This is a new finding when compared to 02/10/2022. HRCT chest will help clarify. 2. Minimal subsegmental atelectasis in left lung base. Electronically Signed: Yusuf Law MD at 11:[address] [facility] ,
[2023-02-12 10:15] VITALS: O2SAT 96
[2023-02-12] MEDS: Albuterol 2.5 MG/3 ML VIAL.NEB. INHALATION (10:21)
[2023-02-12 10:22] VITALS: PULSE 67; RESP 17
[2023-02-12 10:32] LABS: Absolute Neutrophil Count 3.3 X10^3/uL (2.0-7.7); Basophil# 0.02 X10^3/uL; Basophil% 0.4 % (0-1); Eosinophil# 0.04 X10^3/uL; Eosinophils% 0.9 % (0-5); Hematocrit 36.3 % (40-54); Hemoglobin 12.3 g/dL (13.0-16.5); Lymphocyte % 15.5 % (19-41); Mean Corp Hgb Conc 33.9 g/dL (32-36); Mean Corpuscular Hgb 31.4 pg (27.0-32.0); Mean Corpuscular Volume 92.6 fL (80-94); Mean Platelet Vol. 9.7 fl (6.2-12.0); Monocyte# 0.43 X10^3/uL; Monocyte% 9.5 % (0-10); NRBC Flagged by Analyzer 0 % (0-5); Neutrophil # 3.31 X10^3/uL (2.7-7.7); Platelet Count 202 K/mm3 (150-450); RBC Distribution Width CV 13.6 % (11.6-14.6); RBC Distribution Width SD 46.2 fl (35.1-43.9); Red Blood Count 3.92 M/mm3 (4.6-6.2); White Blood Count 4.5 K/mm3 (4.4-11.0)
--- NOTE | 2023-02-12 10:33 | EDS_ITS ---
HPI History of Present Illness Chief Complaint: Shortness of Breath Detail of Chief Complaint: Shortness of breath, nonproductive cough and diagnosed influenza 2 weeks ag Informant: patient Onset/Context/Timing Onset: Today (While driving he became short of breath.) Context: sudden Timing: Continuous and Waxes and wanes Quality: Positive for Dyspnea on exertion and Wheezing; Negative for Orthopnea or PND Current Severity: Mild Maximum Severity: Moderate Worsened by: Exertion and Coughing; Not Worsened By Lying flat Relieved by: Nothing Associated Symptoms cough, rhinorrhea, post nasal drip and sore throat; Negative for ear pain, fever, subjective, chills, sweats, clear sputum, white sputum, yellow sputum or green sputum Chest Pain: Positive for None (Reports midsternal congestion. Denies pleuritic pain.) Narrative Narrative: Patient is a 72-year-old male with history of COVID, recent diagnosis of influenza and placed on azithromycin. He states since he is was placed on the azithromycin has had 2-3 watery stools per day. He has not noted blood or mucus. He denies odor to the diarrhea. He denies headache, visual, ocular auditory symptoms. He does endorse rhinorrhea, congestion, postnasal drainage sore throat. His cough is nonproductive. There is pain when he coughs. He denies leg pain, swelling or discoloration. He denies history of VTE. He has no risk factors for VTE. He does have history of partial left nephrectomy due to renal cancer. There were no positive lymph nodes. Patient was considered a cure with surgery. Patient denies history of angina or stents. He does have evidence of coronary calcification on CT angio of the chest. He does have history of essential hypertension and hyperlipidemia. He also has history of obstructive sleep apnea. PE Risk Factors: Positive for Cancer (Documented HPI narrative); Negative for OCP + Smoking + > 35, Prior DVT or PE, Recent immobilization, Recent surgery or Recent travel Prior similar symptoms: Yes Recent Illness/Hospital[facility]: [facility] Medical History Alcohol use Barretts esophagus (01/05/23) Cancer Cardiology follow-up encounter Chronic cough Closed left hip fracture Dietary restriction Difficulty swallowing Eczema Essential hypertension Fracture of radial head, left, closed Fracture of right patella Fracture of right radius GERD (gastroesophageal reflux disease) Gout History of hiatal hernia History of irregular heartbeat History of renal cell cancer History of renal disease History of stress test Hyperlipidemia Hyperuricemia Migraine headache Non-smoker Obesity Osteoporosis Personal history of supraventricular tachycardia Seasonal allergies Spinal stenosis Wears glasses Wears hearing aid Home Medications allopurinol 100 mg tablet 200 mg PO DAILY PRN gout 12/13/17 [History Last Taken 03/18/18] loratadine 10 mg tablet (Claritin) 10 mg PO DAILY allergies 04/05/20 [History Last Taken Unknown] hydrochlorothiazide 12.5 mg capsule 12.5 mg PO BID 02/20/21 [History Last Taken Unknown] lisinopril 20 mg tablet 20 mg PO BID HTN 02/20/21 [History Last Taken 06/12/21] ubrogepant 100 mg tablet (Ubrelvy) 100 mg PO ONCE PRN migraines 02/20/21 [History Last Taken Unknown] diltiazem HCl 120 mg capsule,extended release 24 hr, controlled (DILT-XR) 120 mg PO DAILY 12/19/22 [History Last Taken Unknown] famotidine 40 mg tablet 40 mg PO Q12H PRN GERD 01/14/23 [History Last Taken Unknown] doxycycline monohydrate 100 mg capsule 100 mg PO BID #14 CAPSULES 02/12/23 [Rx Last Taken Unknown] oseltamivir 75 mg capsule (Tamiflu) 75 mg PO BID 5 days #10 caps 02/12/23 [Rx Last Taken Unknown] Allergy/AdvReac Type Severity Reaction Status Date / Time Egg Derived Allergy Severe Food Verified 02/08/23 19:50 Allergy febuxostat [From Uloric] Allergy Intermediate Other Verified 02/08/23 19:50 Penicillins Allergy Anaphylaxis Verified 02/08/23 19:50 omeprazole AdvReac Intermediate Rash Verified 02/08/23 19:50 pantoprazole [From Protonix] AdvReac Intermediate Hives Verified 02/08/23 19:50 Corticosteroids AdvReac Hypertensio Verified 02/08/23 19:50 (Glucocorticoids) n [steroids] Milk Containing Products AdvReac Diarrhea Verified 02/08/23 19:50 (Dairy) [Milk Containing Products] Family History Mother Diabetes Dementia Heart disease tachycardia Father Heart disease Leukemia Surgical History History of colonoscopy History of esophagogastroduodenoscopy (EGD) History of hip surgery History of mandibular surgery History of partial nephrectomy Social History household members: spouse current occupational status: retired Smoking Status: Never smoker alcohol intake: current alcohol intake frequency: a few times a week Alcohol type: beer substance use type: does not use diet: lactose free caffeine: No what type of physical activity do you participate in: walking and bicycling frequency: 3-4 times per week ROS ROS ED Constitutional Constitutional ED: Denies chills, fever(s), sweats or weight loss Eyes Eyes: Denies blurry vision, change in vision or diplopia ENT ENT ED: Reports rhinorrhea and sore throat; Denies ear pain Cardiovascular Cardiovascular: Reports chest pain; Denies orthopnea, palpitations, paroxysmal nocturnal dyspnea or racing heartbeat Respiratory/Chest Respiratory/Chest: Reports cough and dyspnea; Denies dyspnea on exertion, orthopnea, paroxysmal nocturnal dyspnea or sputum Gastrointestinal Gastrointestinal: Reports diarrhea; Denies abdominal pain, constipation, melena, nausea or vomiting Genitourinary Genitourinary ED: Denies dysuria, hematuria or urinary frequency Musculoskeletal Musculoskeletal: Denies arthralgias, back pain or myalgias Integumentary Denies rash Neurologic Neurologic: Denies headache(s) or paresthesias Endocrine Endocrinology: Denies cold intolerance or heat intolerance EXAM Physical Exam Const Vital Signs: 02/12/23 09:47 02/12/23 09:47 02/12/23 10:15 Temperature 98.2 F Temperature Source Temporal Temporal Pulse Rate 73 68 Respiratory Rate 16 16 Respiratory Effort Normal Respiratory Depth Normal Respiratory Pattern Normal Blood Pressure 108/73 94/56 L Blood Pressure Mean 84 68 Pulse Ox 98 100 Oxygen Delivery Method Room Air Room Air Room Air 02/12/23 09:48 02/12/23 10:22 Temperature 98.1 F Temperature Source Temporal Pulse Rate 63 67 Respiratory Rate 16 17 Respiratory Effort Respiratory Depth Respiratory Pattern Normal Blood Pressure 96/63 Blood Pressure Mean 74 Pulse Ox 97 Oxygen Delivery Method Room Air Positive well nourished and well developed Constitutional Narrative: Vital signs noted. Patient is not hypoxic. He is not tachypneic or tachycardic. General Appearance ED: well developed; Negative for pallor HEENT Reports moist mucous membranes HEENT Narrative: Head is atraumatic and normocephalic. Ears are normal. Nares patent with clear drainage. Posterior pharynx not erythema or exudate. Uvula is midline. Eyes PERRL and EOMs intact bilaterally General Eye ED: Negative for pale conjunctiva or scleral icterus Neck no lymphadenopathy, supple, no meningeal signs and no JVD Resp normal respiratory effort and No clear to auscultation bilaterally Resp Narrative: Expiratory phase is increased. Patient has wheezing throughout greater in the lower lobes and greater on the left side. There are few crackles noted at the right base. Cardio regular rate, regular rhythm, S1 normal heart sound, S2 normal heart sound and no murmurs GI non-tender, non-distended and no masses Auscultation: normoactive bowel sounds Palpation: soft Extremity normal to inspection Extremity Narrative: There is no asymmetry, swelling, discoloration, leg vein distention, palpable cords or tenderness along the distribution of the deep venous system. Neuro oriented x3 and CN's II-XII intact bilaterally Fidelina Coma Scale: document GCS findings Spontaneous Obeys Commands Oriented 15 Sensorium / Orientation: alert Speech: speech normal Psych mental status grossly normal Skin no wounds and skin turgor normal General Skin Exam: Negative for jaundice or pallor MDM MDM MDM Narrative Medical decision making narrative: With history of influenza diagnosed outside facility approximate 2 weeks and abnormal oscillatory findings need to rule out post influenza pneumonia. Will obtain chest x-ray. CBC as well as electrolyte panel to assess for endorgan dysfunction. Respiratory panel was obtained to evaluate for influenza since the influenza is much more prominent in the area. He was treated with albuterol for his wheezing. Lab Data Attestation: I reviewed the patient's lab results. Lab results narrative: CBC reveals mild anemia. White count and differential are within normal range. Rapid antigen for influenza, COVID and RSV was positive for influenza type A. Labs: Laboratory Results - last 24 hr 02/12/23 10:23 WBC 4.5 RBC 3.92 L Hgb 12.3 L Hct 36.3 L MCV 92.6 MCH 31.4 MCHC 33.9 RDW Std Deviation 46.2 H RDW Coeff of Tin 13.6 Plt Count 202 MPV 9.7 Immature Gran % (Auto) 0.700 Neut % (Auto) 73.0 H Lymph % (Auto) 15.5 L [place] % (Auto) 9.5 Eos % (Auto) 0.9 Baso % (Auto) 0.4 Absolute Neuts (auto) 3.3 Absolute Lymphs (auto) 0.70 L Nucleated RBC % 0 Sodium 139 Potassium 3.7 Chloride 102 Carbon Dioxide 27.0 Anion Gap 10 BUN 16 Creatinine 1.30 Estim Creat Clear Calc 53.03 Est GFR (MDRD) Af Amer 70 Est GFR (MDRD) Non-Af 58 L BUN/Creatinine Ratio 12.3 Glucose 106 Lactic Acid 1.5 Calcium 9.4 Radiography Chest X-Ray - ED: Read by ED Physician (There is no effusion or pneumothorax. There is increased interstitial markings noted. Cardiac silhouette and size normal. Perihilar regions unremarkable. Osseous structures unremarkable.) Diagnostic Testing: Clinical Impression(s) from Imaging Studies Chest X-Ray 02/12/23 10:11 IMPRESSION: 1. Equivocal 1.4 cm pulmonary nodule containing small lucencies overlying the left posterior sixth rib. This is a new finding when compared to 02/10/2022. HRCT chest will help clarify. 2. Minimal subsegmental atelectasis in left lung base. Electronically Signed: Yusuf Law MD at 11:06 EST , Chest CT 02/12/23 11:51 IMPRESSION: Mild peripheral groundglass and nodular opacities septal thickening concerning for atypical or viral pneumonia. Bilateral pulmonary nodules measuring up to 10 mm; recommend close short-term interval follow-up to assess for infectious/inflammatory etiologies versus metastases. Electronically Signed: Aspen Arreola MD at 13:18 EST , Radiology read was reviewed. Since there is a 1.4 cm pulmonary nodule noted and this is new will obtain CT per radiology recommendation. Treatment and Re-Evaluation :: Patient was informed of his CAT scan results. He received first dose of doxycycline emergency room. He was given a prescription for doxycycline and Tamiflu. Because of the nodule he was referred to Dr. Cristiano Newman for nodule follow-up. Discharge Plan Triage Chief Complaint: Shortness of Breath ED Provider: Rell Valentine Dx/Rx/DC Orders Clinical Impression: Type A influenza, Essential hypertension, Bilateral interstitial pneumonia Instructions: ED Influenza (Adult), ED Pneumonia (Adult) Prescriptions: New doxycycline monohydrate 100 mg capsule 100 mg PO BID Qty: 14 0RF oseltamivir [Tamiflu] 75 mg capsule 75 mg PO BID 5 Days Qty: 10 0RF No Action loratadine [Claritin] 10 mg tablet 10 mg PO DAILY hydrochlorothiazide 12.5 mg capsule 12.5 mg PO BID Patient Comments: TAKES 2 CAPSULES IN MORNING PER MD INSTRUCTIONS lisinopril 20 mg tablet 20 mg PO BID Patient Comments: TAKE 1 TABLET BY MOUTH TWICE DAILY Ubrelvy 100 mg tablet 100 mg PO ONCE PRN (Reason: migraines) Patient Comments: Take 1 (one) Tablet PIERRE once daily as needed for migraine allopurinol 100 MG tablet 200 mg PO DAILY PRN (Reason: gout) diltiazem HCl [DILT-XR] 120 mg capsule,ext.rel 24h degradable 120 mg PO DAILY famotidine 40 mg tablet 40 mg PO Q12H PRN (Reason: GERD) Stand Alone Forms: ED Work / School Excuse Primary Care Provider: Arnaldo Casiano Referrals: Cristiano Newman DO [Med Staff - Active Staff] - 1-2 Weeks Arnaldo Casiano MD [Primary Care Provider] - 3-5 Days if not improving Disposition Disposition: Home, Self Care
[2023-02-12 10:43] LABS: Anion Gap 10 (5-15); BUN 16 mg/dL (7-18); BUN/Creat Ratio 12.3 RATIO (10-20); Calcium,Total 9.4 mg/dL (8.5-10.1); Chloride 102 mmol/L (98-107); EST Glomerular Filtration Rate 58 mL/min (>60); Est Glom Filt Rate - Afr Amer 70 mL/min (>60); Estimated Creatinine Clearance 53.03 ml/min; Glucose 106 mg/dL (74-106); Potassium 3.7 mmol/L (3.5-5.1); Sodium Level 139 mmol/L (136-145)
[2023-02-12] MEDS: 0.9% Normal Saline (500mL Bag) 500 ML 1000 ML IV (10:51)
--- OUTSIDE RECORDS SUMMARY | 2023-02-12 10:51 | XMS RPT_ITS | CCD ---
Author Name Unknown Address [address] [place] [address] Organization [facility] Care Team Providers Care Superintendent Power Name Role Phone Wesley ACOSTA, Flakito Myers Unavailable [phone] Allergies Allergy Classification Reported Allergen(s) Allergy Type Date of Onset Reaction(s) Facility (2 sources) egg; Translations: [EGGS] food allergy 1 [facility] Work Phone: (2 sources) [employer]; Translations: [ANIMALS] allergy to substance 2 [facility] Work Phone: (2 sources) Penicillin G Drug Allergy 1 [facility] Work Phone: (2 sources) Sulfacetamide Drug Allergy 1 [facility] Work Phone: (2 sources) PLANT POLLENS; Translations: [PLANT POLLENS] allergy to substance 1 hay fever [facility] Work Phone: (2 sources) DAIRY; Translations: [DAIRY] food allergy 1 [facility] Work Phone: Medications Completed/Discontinued Medications Medication Drug Class(es) Dates Sig (Normalized) Sig (Original) allopurinol 100 mg oral tablet (2 sources) Xanthine Oxidase Inhibitor Start: 1 take 1 tablet by mouth once daily ALLOPURINOL 100 MG TABS 1 tablet by mouth once a day allopurinol [id number] Teralanna Lovett RN Calcium (2 sources) Phosphate [...] mouth once a day cholecalciferol (vitamin d3) [id number] Liset Lovett RN hydroCHLOROthiazide 12.5 mg oral tablet (2 sources) Thiazide Diuretic Start: 1 take 2 tablets by mouth once daily HYDROCHLOROTHIAZIDE 12.5 MG TABS 2 tablet by mouth once a day (25 mg) hydrochlorothiazide [id number] Liset Lovett RN lisinopril 20 mg oral tablet (2 sources) Angiotensin Converting Enzyme Inhibitor Start: 1 take 1 tablet by mouth twice daily LISINOPRIL 20 MG TABS 1 tablet by mouth twice a day lisinopril [id number] Liset Lovett RN omeprazole 40 mg delayed release oral capsule (2 sources) Proton Pump Inhibitor Start: 1 take 1 capsule by mouth once daily OMEPRAZOLE 40 MG CPDR 1 capsule by mouth once a day omeprazole [id number] Liset Lovett RN vitamin k2 0.04 mg oral tablet (2 sources) Start: 1 take 1 tablet by mouth once daily VITAMIN K2 40 MCG TABS 1 tablet by mouth once a day vitamin k2 47240050375 Liset Lovett RN Problems Active Problems Problem [...] Sign Value Performing Clinician Facility NEGATED: Highlighted [id number] 10:34-0400 Body height 177.8 cm Bharati Medina AT [facility] Work Phone: NEGATED: Highlighted [id number] 10:34040 Body height 178 cm Bharati Medina AT [facility] Work Phone: NEGATED: Highlighted [id number] 10:34-0400 Body mass index (BMI) [Ratio] 29.23 kg/m2 Bharati Medina AT [facility] Work Phone: NEGATED: Highlighted [id number] 10:34-040 Body weight 92.08 kg Bharati Medina AT [facility] Work Phone: NEGATED: Highlighted [id number] 10:34-040 Body weight 92 kg Bharati Medina AT [facility] Work Phone: NEGATED: Highlighted [id number] 08:46-0400 Body height 177.8 cm Lali Rodolfo AT [facility] Work Phone: NEGATED: Highlighted [id number] 08:46-0400 Body height 178 cm Lali Rodolfo AT [facility] Work Phone: NEGATED: Highlighted [id number] 08:46-0400 Body mass index (BMI) [Ratio] 29.23 kg/m2 Lali Rodolfo AT [facility] Work Phone: NEGATED: Highlighted [id number] 08:46-0400 Body weight 92.08 kg Lali Rodolfo AT [facility] Work Phone: NEGATED: Highlighted [id number] 08:46-0400 Body weight 92 kg Lali Rodolfo AT [facility] Work Phone: Procedures Date Procedure Procedure Detail [...] 04-22-2021 BP scrn no perf at interval Flaktio Olson MD Work Phone: Start: 04-22-2021 End: [...] 05-10-2021 End: 05-10-2021 Patient encounter procedure Appointment [facility] Work Phone: Start: 04-22-2021 End: 04-22-2021 Patient encounter procedure Appointment [facility] Work Phone: Start: 04-22-2021 End: 04-22-2021 Mri spinal canal lumbar w/o & w/contr matrl MRI lumbar with and without contrast [facility] Work Phone: Start: 04-22-2021 End: 04-22-2021 Mri spinal canal thoracic w/o & w/contr matrl MRI thoracic with and without contrast [facility] Work Phone: Social History Date Type Detail Facility Start: 04-22-2021 End: 05-10-2021 Assertion Unknown if ever smoked [facility] Work Phone: NEGATED: Highlighted rowStart: 05-10-2021 End: 05-10-2021 Employment detail Employment detail [facility] Work Phone: Evaluation note Note Date & Type Note Facility Evaluation note There may be informa tion available, but it has not been provided by the sender. [facility] Work Phone: Instructions Note Date & Type Note Facility [facility] Work Phone: Instructions Note Date & Type Note Facility [facility] Work Phone: Chief Complaint Chief [...] BE BASED ON THE PRIMARY CLINICAL RECORDS. [facility] [employer] provides no warranty or guarantee of the accuracy or completeness of information in this document.
[2023-02-12 11:00] LABS: Lactic Acid 1.5 mmol/L (0.4-1.9)
--- NOTE | 2023-02-12 11:51 | CT_ITS ---
HISTORY: New nodule noted with lucency. TECHNIQUE: CT of the chest was performed after the intravenous administration of 100 mL Isovue 300. Coronal and sagittal reformatted images. Individualized dose optimization techniques were used for this CT. 845 images. COMPARISON: XR same day. FINDINGS: CENTRAL AIRWAYS: Patent. LUNGS: Mild peripheral groundglass opacities with septal thickening in the left upper, bilateral middle, and bilateral lower lobes. 9 mm pleural-based bilateral lower lobe nodules. 6 mm right lower lobe nodule adjacent to the diaphragm. 10 mm right middle lobe and left lower lobe nodules. PLEURA: No pneumothorax or significant pleural effusion. HEART/PERICARDIUM: Heart within normal limits in size. No pericardial effusion. AORTA/VESSELS: No thoracic aortic aneurysm or dissection flap. No large central filling defect identified in the pulmonary arteries. MEDIASTINUM/NERY: No pathologically enlarged lymph nodes. OSSEOUS STRUCTURES: Osteopenia and degenerative change. UPPER ABDOMEN: Unremarkable. CT/Chest WITH Contrast IMPRESSION: Mild peripheral groundglass and nodular opacities septal thickening concerning for atypical or viral pneumonia. Bilateral pulmonary nodules measuring up to 10 mm; recommend close short-term interval follow-up to assess for infectious/inflammatory etiologies versus metastases. Electronically Signed: Aspen Arreola MD at 13:18 EST ,
--- NOTE | 2023-02-12 13:16 | CHAPLAIN ---
Type of Pastoral Visit _x__ Initial Visit ___ Follow-up Visit ___ On-call Visit ___ General Patient Visit ___ Spiritual Assessment ___ Family Conference ___ Bereavement ___ Rapid Response ___ Code Blue ___ Other (describe below) Pastoral Care Referral From _x__ Patient ___ Family ___ Nurse ___ Physician ___ Heavy Line Technician ___ Corrective And Manual Arts Therapist ___ Other (describe below) Sacrament/Intervention _x__ Active listening ___ Anointing ___ Spiritism ___ Bereavement ___ Communion ___ Kim exploration ___ ___ Life review _x__ Prayer ___ Reconciliation ___ Sacrament of Sick _x__ Supportive presence ___ Wedding ___ Other (describe below) Pastoral Comments
[2023-02-12] MEDS: Doxycycline 100 MG CAPSULE PO (14:24)
== END 2023-02-12 14:34 | disposition home or self-care (01) ==
PROVIDERS: Emergency Provider Emergency Medicine; PCP Family Medicine; Visit Provider Emergency Medicine
DX: J10.1 Influenza due to other identified influenza virus with other respiratory manifestations (principal); J84.9 Interstitial pulmonary disease, unspecified; E78.5 Hyperlipidemia, unspecified; I10 Essential (primary) hypertension; Z85.9 Personal history of malignant neoplasm, unspecified; M10.9 Gout, unspecified; Z79.899 Other long term (current) drug therapy; G43.909 Migraine, unspecified, not intractable, without status migrainosus; K21.9 Gastro-esophageal reflux disease without esophagitis
CPT/HCPCS: 71046; 71260; 80048; 83605; 85025; 87631; 94640; 99284; J7040; Q9967; A4216

== ENCOUNTER 2023-02-13 17:14 | Emergency (ER) | payer MEDICARE, OTHER, SELFPAY ==
[2023-02-13 17:16] VITALS: BP 131/71; PULSE 70; RESP 14; TEMP 37.2; O2SAT 97; BMI 28.6
[2023-02-13 17:48] LABS: Basophil# 0.02 X10^3/uL; Basophil% 0.4 % (0-1); Eosinophil# 0.07 X10^3/uL; Eosinophils% 1.3 % (0-5); Hematocrit 36.9 % (40-54); Hemoglobin 12.4 g/dL (13.0-16.5); Lymphocyte % 16.5 % (19-41); Mean Corp Hgb Conc 33.6 g/dL (32-36); Mean Corpuscular Hgb 30.9 pg (27.0-32.0); Mean Platelet Vol. 9.5 fl (6.2-12.0); Monocyte# 0.47 X10^3/uL; Monocyte% 8.6 % (0-10); NRBC Flagged by Analyzer 0 % (0-5); Neutrophil # 3.95 X10^3/uL (2.7-7.7); Neutrophil % 72.6 % (47-70); Platelet Count 250 K/mm3 (150-450); RBC Distribution Width CV 13.5 % (11.6-14.6); RBC Distribution Width SD 46.1 fl (35.1-43.9); Red Blood Count 4.01 M/mm3 (4.6-6.2); White Blood Count 5.4 K/mm3 (4.4-11.0)
[2023-02-13 18:01] LABS: Anion Gap 6 (5-15); BUN 16 mg/dL (7-18); BUN/Creat Ratio 13.6 RATIO (10-20); Calcium,Total 9.2 mg/dL (8.5-10.1); Chloride 103 mmol/L (98-107); Creatinine, Serum 1.18 mg/dL (0.70-1.30); EST Glomerular Filtration Rate 64 mL/min (>60); Est Glom Filt Rate - Afr Amer 78 mL/min (>60); Estimated Creatinine Clearance 58.43 ml/min; Glucose 106 mg/dL (74-106); Potassium 3.8 mmol/L (3.5-5.1); Sodium Level 137 mmol/L (136-145)
[2023-02-13 18:24] VITALS: O2SAT 99
[2023-02-13 18:45] VITALS: PULSE 79; RESP 20
[2023-02-13] MEDS: Ipratropium/Albuterol Sulfate 3 ML AMPUL.NEB INHALATION (18:45)
--- OUTSIDE RECORDS SUMMARY | 2023-02-13 19:17 | XMS RPT_ITS | CCD ---
Author Name Unknown Address [address] [place] [address] Organization [facility] Care Team Providers Care Senior Shipping Clerk Name Role Phone Wesley ACOSTA, Flakito Myers Unavailable Allergies Allergy Classification Reported Allergen(s) Allergy Type Date of Onset Reaction(s) Facility (2 sources) egg; Translations: [EGGS] food allergy 1 [facility] Work Phone: (2 sources) [employer]; Translations: [ANIMALS] allergy to substance 2 [facility] Work Phone: (2 sources) Penicillin G Drug Allergy 1 [facility] Work Phone: (2 sources) Sulfacetamide Drug Allergy 1 [facility] Work Phone: (2 sources) PLANT POLLENS; Translations: [PLANT POLLENS] allergy to substance 1 hay fever [facility] Work Phone: (2 sources) DAIRY; Translations: [DAIRY] food allergy 1 [facility] Work Phone: Medications Completed/Discontinued Medications Medication Drug Class(es) Dates Sig (Normalized) Sig (Original) allopurinol 100 mg oral tablet (2 sources) Xanthine Oxidase Inhibitor Start: 1 take 1 tablet by mouth once daily ALLOPURINOL 100 MG TABS 1 tablet by mouth once a day allopurinol [id number] Teralanna Lovett RN Calcium (2 sources) Phosphate [...] mouth once a day cholecalciferol (vitamin d3) [id number] Liset Lovett RN hydroCHLOROthiazide 12.5 mg oral tablet (2 sources) Thiazide Diuretic Start: 1 take 2 tablets by mouth once daily HYDROCHLOROTHIAZIDE 12.5 MG TABS 2 tablet by mouth once a day (25 mg) hydrochlorothiazide [id number] Liset Lovett RN lisinopril 20 mg oral tablet (2 sources) Angiotensin Converting Enzyme Inhibitor Start: 1 take 1 tablet by mouth twice daily LISINOPRIL 20 MG TABS 1 tablet by mouth twice a day lisinopril 65387279732 Liset Lovett RN omeprazole 40 mg delayed release oral capsule (2 sources) Proton Pump Inhibitor Start: 1 take 1 capsule by mouth once daily OMEPRAZOLE 40 MG CPDR 1 capsule by mouth once a day omeprazole 64921131094 Liset Lovett RN vitamin k2 0.04 mg oral tablet (2 sources) Start: 1 take 1 tablet by mouth once daily VITAMIN K2 40 MCG TABS 1 tablet by mouth once a day vitamin k2 89362095953 Liset Lovett RN Problems Active Problems Problem [...] Sign Value Performing Clinician Facility NEGATED: Highlighted [id number] 10:34-0400 Body height 177.8 cm hBarati Medina AT [facility] Work Phone: NEGATED: Highlighted [id number] 10:34040 Body height 178 cm Bharati Medina AT [facility] Work Phone: NEGATED: Highlighted [id number] 10:34-0400 Body mass index (BMI) [Ratio] 29.23 kg/m2 Bahrati Medina AT [facility] Work Phone: NEGATED: Highlighted [id number] 10:34-040 Body weight 92.08 kg Bharati Medina AT [facility] Work Phone: NEGATED: Highlighted [id number] 10:34-040 Body weight 92 kg Bharati Medina AT [facility] Work Phone: NEGATED: Highlighted [id number] 08:46-0400 Body height 177.8 cm Lali Rodolfo AT [facility] Work Phone: NEGATED: Highlighted [id number] 08:46-0400 Body height 178 cm Lali Rodolfo AT [facility] Work Phone: NEGATED: Highlighted [id number] 08:46-0400 Body mass index (BMI) [Ratio] 29.23 kg/m2 Lali Rodolfo AT [facility] Work Phone: NEGATED: Highlighted [id number] 08:46-0400 Body weight 92.08 kg Lali Rodolfo AT [facility] Work Phone: NEGATED: Highlighted [id number] 08:46-0400 Body weight 92 kg Lali Rodolfo AT [facility] Work Phone: Procedures Date Procedure [...] 05-10-2021 End: 05-10-2021 Patient encounter procedure Appointment [facility] Work Phone: Start: 04-22-2021 End: 04-22-2021 Patient encounter procedure Appointment [facility] Work Phone: Start: 04-22-2021 End: 04-22-2021 Mri spinal canal lumbar w/o & w/contr matrl MRI lumbar with and without contrast [facility] Work Phone: Start: 04-22-2021 End: 04-22-2021 Mri spinal canal thoracic w/o & w/contr matrl MRI thoracic with and without contrast [facility] Work Phone: Social History Date Type Detail Facility Start: 04-22-2021 End: 05-10-2021 Assertion Unknown if ever smoked [facility] Work Phone: NEGATED: Highlighted rowStart: 05-10-2021 End: 05-10-2021 Employment detail Employment detail [facility] Work Phone: Evaluation note Note Date & Type Note Facility Evaluation note There may be informa tion available, but it has not been provided by the sender. [facility] Work Phone: Instructions Note Date & Type Note Facility [facility] Work Phone: Instructions Note Date & Type Note Facility [facility] Work Phone: Chief Complaint Chief [...] BE BASED ON THE PRIMARY CLINICAL RECORDS. [employer] provides no warranty or guarantee of the accuracy or completeness of information in this document.
--- NOTE | 2023-02-13 19:37 | ED.VIS.DYS ---
HPI History of Present Illness Chief Complaint: Shortness of Breath Informant: patient and spouse/S.O. Narrative Narrative: This patient presents with feeling of difficulty breathing. He states he can check his oxygen at home and it is always in the mid 90s or more even when he has symptoms. It sounds like he has had the symptoms predate his current illness. He and his state that he has been having the symptoms due to his reflux and hiatal hernia. They have tried many different meds for this and they are currently on famotidine twice a day. They are evaluating him for possible surgery. He did get viral type illness starting [place]. It started to get better. It then got worse. A week ago he was placed on azithromycin. He was seen here yesterday found to have influenza A with some infiltrative process and was placed on doxycycline and Tamiflu. He states Tamiflu has made a little bit of nausea but no vomiting. He is not having fevers. He is not bringing up sputum. He is not having chest pain. He states that is just sometimes he feels like he has trouble taking a deep breath. It is worse when he taste the acid reflux. He has been trying Maalox in addition to the famotidine. He states the albuterol does seem to help his breathing. But symptoms come back. This note was generated with BetterYou dictation software. It may contain incorrect words, spelling, and punctuation that were not noted in review of the chart prior to signing. Also, today, the computer system is making markedly more errors than normal. 100s of errors are being corrected but many may be missed per chart. [facility] Medical History Alcohol use Barretts esophagus (01/05/23) Cancer Cardiology follow-up encounter Chronic cough Closed left hip fracture Dietary restriction Difficulty swallowing Eczema Essential hypertension Fracture of radial head, left, closed Fracture of right patella Fracture of right radius GERD (gastroesophageal reflux disease) Gout History of hiatal hernia History of irregular heartbeat History of renal cell cancer History of renal disease History of stress test Hyperlipidemia Hyperuricemia Migraine headache Non-smoker Obesity Osteoporosis Personal history of supraventricular tachycardia Seasonal allergies Spinal stenosis Wears glasses Wears hearing aid Home Medications allopurinol 100 mg tablet 200 mg PO DAILY PRN gout 12/13/17 [History Last Taken 03/18/18] loratadine 10 mg tablet (Claritin) 10 mg PO DAILY allergies 04/05/20 [History Last Taken Unknown] hydrochlorothiazide 12.5 mg capsule 12.5 mg PO BID 02/20/21 [History Last Taken Unknown] lisinopril 20 mg tablet 20 mg PO BID HTN 02/20/21 [History Last Taken 06/12/21] ubrogepant 100 mg tablet (Ubrelvy) 100 mg PO ONCE PRN migraines 02/20/21 [History Last Taken Unknown] diltiazem HCl 120 mg capsule,extended release 24 hr, controlled (DILT-XR) 120 mg PO DAILY 12/19/22 [History Last Taken Unknown] famotidine 40 mg tablet 40 mg PO Q12H PRN GERD 01/14/23 [History Last Taken Unknown] doxycycline monohydrate 100 mg capsule 100 mg PO BID #14 CAPSULES 02/12/23 [Rx Last Taken Unknown] oseltamivir 75 mg capsule (Tamiflu) 75 mg PO BID 5 days #10 caps 02/12/23 [Rx Last Taken Unknown] Allergy/AdvReac Type Severity Reaction Status Date / Time Egg Derived Allergy Severe Food Verified 02/13/23 17:15 Allergy febuxostat [From Uloric] Allergy Intermediate Other Verified 02/13/23 17:15 Penicillins Allergy Anaphylaxis Verified 02/13/23 17:15 omeprazole AdvReac Intermediate Rash Verified 02/13/23 17:15 pantoprazole [From Protonix] AdvReac Intermediate Hives Verified 02/13/23 17:15 Corticosteroids AdvReac Hypertensio Verified 02/13/23 17:15 (Glucocorticoids) n [steroids] Milk Containing Products AdvReac Diarrhea Verified 02/13/23 17:15 (Dairy) [Milk Containing Products] Family History Mother Diabetes Dementia Heart disease tachycardia Father Heart disease Leukemia Surgical History History of colonoscopy History of esophagogastroduodenoscopy (EGD) History of hip surgery History of mandibular surgery History of partial nephrectomy Social History household members: spouse current occupational status: retired Smoking Status: Never smoker alcohol intake: current alcohol intake frequency: a few times a week Alcohol type: beer substance use type: does not use diet: lactose free caffeine: No what type of physical activity do you participate in: walking and bicycling frequency: 3-4 times per week ROS ROS ED Constitutional Constitutional ED: Denies fever(s) Eyes Eyes: Denies change in vision ENT ENT ED: Reports other Details: He does get acid reflux feelings in his throat. ; Denies rhinorrhea or sore throat Cardiovascular Cardiovascular: Denies chest pain or palpitations Respiratory/Chest Respiratory/Chest: Reports cough and dyspnea Gastrointestinal Gastrointestinal: Reports nausea; Denies abdominal pain, diarrhea or vomiting Genitourinary Genitourinary ED: Denies dysuria Musculoskeletal Musculoskeletal: Reports myalgias Integumentary Denies rash Neurologic Neurologic: Denies headache(s) Psychiatric Psychiatric: Reports anxiety Hematologic/Lymphatic Hematologic/Lymphatic: Denies easy bleeding, easy bruising or lymphadenopathy Allergic/Immunologic Allergic/Immunologic ED: Denies urticaria EXAM Physical Exam Narrative Exam Narrative: General: Despite this patient's influenza A infiltrate and his history, he looks phenomenally comfortable as I walk in the room. He is smiling pleasant and breathing easily with normal saturations. I was actually shocked at how good he looked. HEENT: No exudate. Oropharynx is normal. Voice is normal. Neck is supple. There is no stridor. There is no JVD. Heart is regular. No murmur. Tones are not muffled. Pulses are normal distally. Lungs there are a few coarse breath sounds at the bases a little bit more on the right than the left. But no wheezing. He takes good deep breaths without any pain. Saturations remain normal at 97% on room air showing no hypoxia. Abdomen soft nontender no mass. Extremities show no edema. Const Vital Signs: 02/13/23 17:16 02/13/23 18:22 02/13/23 18:22 Temperature 98.9 F Temperature Source Temporal Pulse Rate 70 Respiratory Rate 14 Respiratory Effort Respiratory Depth Respiratory Pattern Blood Pressure 131/71 H Blood Pressure Mean 91 Pulse Ox 97 Oxygen Delivery Method Room Air Room Air Room Air 02/13/23 18:24 02/13/23 18:56 02/13/23 18:45 Temperature Temperature Source Pulse Rate 79 Respiratory Rate 20 H Respiratory Effort Normal Non-Labored Respiratory Depth Normal Respiratory Pattern Normal Normal Blood Pressure Blood Pressure Mean Pulse Ox Oxygen Delivery Method Room Air Room Air 02/13/23 21:44 Temperature Temperature Source Pulse Rate 85 Respiratory Rate 18 Respiratory Effort Respiratory Depth Respiratory Pattern Blood Pressure 125/79 H Blood Pressure Mean 94 Pulse Ox 94 Oxygen Delivery Method Room Air MDM MDM MDM Narrative Medical decision making narrative: My independent interpretation of the patient's PA and lateral chest x-ray shows some marked base is this may be scarring no acute issue was seen by radiologist. Patient CT shows normal white count. Hemoglobin is minimally low. Platelets are normal. Patient's electrolytes show no marked normalities. Patient's lactic acid is normal. We walked the patient and his saturations are normal with a very brisk walk in the hallway. Normally I would be very concerned about somebody with pulmonary findings influenza on antibiotics and antivirals who comes back after being discharged. However, this patient looks fantastic. He does not desaturate. He wants to go home. A lot of his symptoms are chronic in terms of his reflux. We will have him follow-up. Continue his antacid. This note was generated with BetterYou dictation software. It may contain incorrect words, spelling, and punctuation that were not noted in review of the chart prior to signing. Also, today, the computer system is making markedly more errors than normal. 100s of errors are being corrected but many may be missed per chart. Lab Data Attestation: I reviewed the patient's lab results. Labs: Laboratory Results - last 24 hr 02/13/23 02/13/23 17:40 18:47 WBC 5.4 RBC 4.01 L Hgb 12.4 L Hct 36.9 L MCV 92.0 MCH 30.9 MCHC 33.6 RDW Std Deviation 46.1 H RDW Coeff of Tin 13.5 Plt Count 250 MPV 9.5 Immature Gran % (Auto) 0.600 Neut % (Auto) 72.6 H Lymph % (Auto) 16.5 L [place] % (Auto) 8.6 Eos % (Auto) 1.3 Baso % (Auto) 0.4 Absolute Neuts (auto) 4.0 Absolute Lymphs (auto) 0.90 Nucleated RBC % 0 Sodium 137 Potassium 3.8 Chloride 103 Carbon Dioxide 28.0 Anion Gap 6 BUN 16 Creatinine 1.18 Estim Creat Clear Calc 58.43 Est GFR (MDRD) Af Amer 78 Est GFR (MDRD) Non-Af 64 BUN/Creatinine Ratio 13.6 Glucose 106 Lactic Acid 1.2 Calcium 9.2 Radiography Diagnostic Testing: Clinical Impression(s) from Imaging Studies Chest X-Ray 02/13/23 19:45 IMPRESSION: Mild pulmonary hyperinflation with interstitial scarring. There is no acute pulmonary abnormality. Electronically Signed: Lloyd Pisano MD at 19:57 EST , Discharge Plan Triage Chief Complaint: Shortness of Breath ED Provider: Kenton Dillard Dx/Rx/DC Orders Clinical Impression: Acute dyspnea, Type A influenza, Pneumonia Instructions: ED Pneumonia (Adult) Prescriptions: No Action loratadine [Claritin] 10 mg tablet 10 mg PO DAILY hydrochlorothiazide 12.5 mg capsule 12.5 mg PO BID Patient Comments: TAKES 2 CAPSULES IN MORNING PER MD INSTRUCTIONS lisinopril 20 mg tablet 20 mg PO BID Patient Comments: TAKE 1 TABLET BY MOUTH TWICE DAILY Ubrelvy 100 mg tablet 100 mg PO ONCE PRN (Reason: migraines) Patient Comments: Take 1 (one) Tablet PIERRE once daily as needed for migraine allopurinol 100 MG tablet 200 mg PO DAILY PRN (Reason: gout) diltiazem HCl [DILT-XR] 120 mg capsule,ext.rel 24h degradable 120 mg PO DAILY famotidine 40 mg tablet 40 mg PO Q12H PRN (Reason: GERD) doxycycline monohydrate 100 mg capsule 100 mg PO BID Qty: 14 0RF oseltamivir [Tamiflu] 75 mg capsule 75 mg PO BID 5 Days Qty: 10 0RF Primary Care Provider: Arnaldo Casiano Referrals: Arnaldo Casiano MD [Primary Care Provider] - 1-2 Days if not improving Disposition Disposition: Home, Self Care
[2023-02-13 19:41] LABS: Lactic Acid 1.2 mmol/L (0.4-1.9)
--- NOTE | 2023-02-13 19:45 | RAD_ITS ---
EXAM: XR CHEST, 2 VIEWS CLINICAL INDICATION: cough TECHNIQUE: Frontal and lateral views of the chest. COMPARISON: 02/12/2023 FINDINGS: LUNGS AND PLEURAL SPACES: Lungs are mildly hyperinflated with minimal bibasilar scarring. No pneumothorax. No effusion. HEART: Unremarkable. Cardiac silhouette not enlarged. MEDIASTINUM: Central airways and mediastinal contour are unremarkable. BONES/JOINTS: Unremarkable. No acute fracture. SOFT TISSUES: Unremarkable. RAD/Chest PA and Lateral IMPRESSION: Mild pulmonary hyperinflation with interstitial scarring. There is no acute pulmonary abnormality. Electronically Signed: Lloyd Pisano MD at 19:57 EST ,
[2023-02-13 21:43] VITALS: O2SAT 96
[2023-02-13 21:44] VITALS: BP 125/79; PULSE 85; RESP 18; O2SAT 94
== END 2023-02-13 22:27 | disposition home or self-care (01) ==
PROVIDERS: Emergency Provider Emergency Medicine; PCP Family Medicine; Visit Provider Emergency Medicine
DX: J10.1 Influenza due to other identified influenza virus with other respiratory manifestations (principal); R06.00 Dyspnea, unspecified; J18.9 Pneumonia, unspecified organism; I10 Essential (primary) hypertension; E78.5 Hyperlipidemia, unspecified; Z85.89 Personal history of malignant neoplasm of other organs and systems; M10.9 Gout, unspecified; Z79.899 Other long term (current) drug therapy; G43.909 Migraine, unspecified, not intractable, without status migrainosus; K21.9 Gastro-esophageal reflux disease without esophagitis; Z90.5 Acquired absence of kidney
CPT/HCPCS: 71046; 80048; 83605; 85025; 87040; 93005; 94640; 94760; 99283; A4216

== ENCOUNTER → 2023-03-16 | Outpatient (CLI) | payer MEDICARE, OTHER, SELFPAY ==
[2023-03-16 13:25] LABS: Hematocrit 37.1 % (40-54); Hemoglobin 12.1 g/dL (13.0-16.5); Mean Corp Hgb Conc 32.6 g/dL (32-36); Mean Corpuscular Hgb 31.3 pg (27.0-32.0); Mean Corpuscular Volume 95.9 fL (80-94); Mean Platelet Vol. 9.2 fl (6.2-12.0); Platelet Count 207 K/mm3 (150-450); RBC Distribution Width CV 14.6 % (11.6-14.6); RBC Distribution Width SD 51.2 fl (35.1-43.9); Red Blood Count 3.87 M/mm3 (4.6-6.2); White Blood Count 5.8 K/mm3 (4.4-11.0)
[2023-03-16 14:10] LABS: Anion Gap 3 (5-15); BUN 15 mg/dL (7-18); BUN/Creat Ratio 11.9 RATIO (10-20); Chloride 105 mmol/L (98-107); Creatinine, Serum 1.26 mg/dL (0.70-1.30); EST Glomerular Filtration Rate 60 mL/min (>60); Est Glom Filt Rate - Afr Amer 72 mL/min (>60); Glucose 101 mg/dL (74-106); Potassium 3.6 mmol/L (3.5-5.1); Sodium Level 140 mmol/L (136-145)
[2023-03-16 14:11] LABS: BNP,B-Type NATRIURETIC PEPTIDE 9.7 pg/mL (0-100)
[2023-03-16 14:23] LABS: AST(SGOT) 19 U/L (15-37); Alanine Aminotransfer ALT/SGPT 25 U/L (16-61); Albumin, Serum 3.6 g/dL (3.2-5.0); Alkaline Phosphatase 56 U/L (45-117); Bilirubin, Direct 0.16 mg/dL (0.00-0.30); Cholesterol 235 mg/dL (200); Globulin 3.1 g/dL (2.2-4.2); High Density Lipoprotein 43 mg/dL; Protein, Total 6.7 g/dL (6.4-8.2); Triglycerides 253 mg/dL; Very Low Density Lipoprotein 51 mg/dL (5-40)
== END | disposition home or self-care (01) ==
LOC: LAB 12:58
PROVIDERS: Nurse Practitioner Gerontology; PCP Family Medicine; Referring Provider Internal Medicine Cardiovascular Disease; Visit Provider Internal Medicine Cardiovascular Disease
DX: R06.02 Shortness of breath (principal); I25.10 Atherosclerotic heart disease of native coronary artery without angina pectoris; I25.84 Coronary atherosclerosis due to calcified coronary lesion; E78.00 Pure hypercholesterolemia, unspecified; R93.1 Abnormal findings on diagnostic imaging of heart and coronary circulation
CPT/HCPCS: 36415; 80048; 80061; 80076; 83880; 85027

== ENCOUNTER → 2023-03-20 | Outpatient (CLI) | payer MEDICARE, OTHER, SELFPAY ==
--- NOTE | 2023-03-20 07:35 | NM_ITS ---
CLINICAL: 72-year-old male with history of thoracic spine pain. WHOLE BODY 99m Tc MDP RADIONUCLIDE BONE SCINTIGRAPHY COMPARISON: Plain film chest x-ray report 02/13/2023, CT of the chest report 02/12/2023 FINDINGS: Following the intravenous administration of 26.7 mCi of 99m Tc MDP, whole body bone images reveal: 1. Increased radiopharmaceutical concentration is defined in the mid cervical spine posteriorly on the right, the acromioclavicular and sternoclavicular compartments of both shoulders, the medial glenohumeral compartment of the left shoulder, the right elbow, bilateral knees, the right-left ankles, the bilateral midfoot and right forefoot. 2. The remaining skeletal structures are scintigraphically unremarkable with normal-appearing renal images and urinary bladder activity identified. There is an increase in uptake noted in the distal left femoral diaphysis. NM/Bone Scan Whole Body IMPRESSION: 1. The increase in tracer uptake defined in the cervical spine, the shoulder articulations bilaterally, the right elbow, right-left knees, ankles bilaterally, the midfoot bilaterally and right forefoot is commensurate with degenerative arthrosis. 2. Enhanced uptake defined in the distal left femoral diaphysis is of uncertain etiology. Plain film radiographic correlation is recommended. Electronically Signed: Patrice Maynard DO at 17:12 EST ,
--- OUTSIDE RECORDS SUMMARY | 2023-03-20 07:36 | XMS RPT_ITS | CCD ---
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 Name Role Phone Wesley ACOSTA, Flakito Myers Unavailable GATITO SULLIVAN Attending Unavailable GATITO SULLIVAN Admitting Unavailable ANA CASIANO Primary Care Unavailable ANA CASIANO Primary Care Unavailable GATITO SULLIVAN Attending Unavailable ANA CASIANO Primary Care Unavailable GATITO SULLIVAN Referring Unavailable Allergies Allergy Classification Reported Allergen(s) Allergy Type Date of Onset Reaction(s) Facility (2 sources) egg; Translations: [EGGS] food allergy 1 [facility] Work Phone: (2 sources) [employer]; Translations: [ANIMALS] allergy to substance 2 [facility] Work Phone: (2 sources) Penicillin G Drug Allergy 1 [facility] Work Phone: (2 sources) Sulfacetamide Drug Allergy 1 [facility] Work Phone: (2 sources) PLANT POLLENS; Translations: [PLANT POLLENS] allergy to substance 1 hay fever [facility] Work Phone: (2 sources) DAIRY; Translations: [DAIRY] food allergy 1 [facility] Work Phone: (1 source) Betamethasone; Translations: [BETAMETHASONE DIPROPIONATE] Drug Allergy 6 [facility] Repository (1 source) Corticosteroids; Translations: [CORTICOSTEROIDS (GLUCOCORTICOIDS) ] Propensity to adverse reactions to drug (disorder) 9 [facility] Repository (1 source) febuxostat; Translations: [FEBUXOSTAT] Drug Allergy 4 [facility] Repository (1 source) levoFLOXacin; Translations: [LEVOFLOXACIN] Drug Allergy 4 [facility] Rep[facility] (1 source) Omeprazole; Translations: [OMEPRAZOLE] Drug Allergy 4 [facility] Repository (1 source) pantoprazole; Translations: [PANTOPRAZOLE] Drug Allergy 4 [facility] Repository (1 source) Penicillins; Translations: [PENICILLINS] Propensity to adverse reactions to drug (disorder) 4 [facility] Repository (1 source) EGG DERIVED; Translations: [EGG DERIVED] Propensity to adverse reactions to drug (disorder) 9 [facility] Repository (1 source) MILK CONTAINING PRODUCTS (DAIRY); Translations: [MILK CONTAINING PRODUCTS (DAIRY)] Propensity to adverse reactions to drug (disorder) 9 [facility]ository Medications Completed/Discontinued Medications Medication Drug Class(es) Dates Sig (Normalized) Sig (Original) allopurinol 100 mg oral tablet (2 sources) Xanthine Oxidase Inhibitor Start: 1 take 1 tablet by mouth once daily ALLOPURINOL 100 MG TABS 1 tablet by mouth once a day allopurinol [id number] Liset Lovett RN Calcium (2 sources) Phosphate Binder, [...] mouth once a day cholecalciferol (vitamin d3) [id number] Liset Lovett RN hydroCHLOROthiazide 12.5 mg oral tablet (2 sources) Thiazide Diuretic Start: 1 take 2 tablets by mouth once daily HYDROCHLOROTHIAZIDE 12.5 MG TABS 2 tablet by mouth once a day (25 mg) hydrochlorothiazide [id number] Liset Lovett RN lisinopril 20 mg oral tablet (2 sources) Angiotensin Converting Enzyme Inhibitor Start: 1 take 1 tablet by mouth twice daily LISINOPRIL 20 MG TABS 1 tablet by mouth twice a day lisinopril [id number] Liset Lovett RN omeprazole 40 mg delayed release oral capsule (2 sources) Proton Pump Inhibitor Start: 1 take 1 capsule by mouth once daily OMEPRAZOLE 40 MG CPDR 1 capsule by mouth once a day omeprazole [id number] Liset Lovett RN vitamin k2 0.04 mg oral tablet (2 sources) Start: 1 take 1 tablet by mouth once daily VITAMIN K2 40 MCG TABS 1 tablet by mouth once a day vitamin k2 [id number] Liset Lovett RN Problems Active Problems Problem Classification Problem Date Documented Date Episodic/Chronic Abdominal hernia (1 source) Diaphragmatic hernia without obstruction or gangrene; Translations: [Paraesophageal hernia] Onset: 03-13-2023 Episodic Cardiac dysrhythmias (1 source) Supraventricular tachycardia; Translations: [SVT (supraventricular tachycardia)] Onset: 03-06-2023 Chronic Esophageal disorders (1 source) Anthony's esophagus without dysplasia; Translations: [Anthony's esophagus without dysplasia] Onset: 03-06-2023 Chronic Esophageal disorders (2 sources) Esophageal disorders; Translations: [Gastroesophageal reflux disease with esophagitis, unspecified whether hemorrhage] Onset: 03-06-2023 Essential hypertension (1 source) Essential (primary) hypertension; Translations: [Hypertension, unspecified type] Onset: 03-06-2023 Chronic Joint disorders and dislocations; trauma-related (2 sources) [...] kidney and ureter] Onset: 05-10-2021 05-10-2021 Chronic Other lower respiratory disease (1 source) Shortness of breath; Translations: [Shortness of breath] Onset: 03-06-2023 Episodic Residual codes; unclassified (1 source) Obstructive sleep apnea (adult) (pediatric); Translations: [STEPHANY treated with BiPAP] Onset: 03-06-2023 Chronic Spondylosis; intervertebral disc disorders; other back [...] Sign Value Performing Clinician Facility NEGATED: Highlighted [id number] 10:34-0400 Body height 177.8 cm Bharati Medina AT [facility] Work Phone: NEGATED: Highlighted [id number] Body height 178 cm Bharati Medina AT [facility] Work Phone: NEGATED: Highlighted [id number] Body mass index (BMI) [Ratio] 29.23 kg/m2 Bharati Medina AT [facility] Work Phone: NEGATED: Highlighted [id number] 10:34-0400 Body weight 92.08 kg Bharati Medina AT [facility] Work Phone: NEGATED: Highlighted [id number] 10:34-0400 Body weight 92 kg Bharati Medina AT [facility] Work Phone: NEGATED: Highlighted [id number] 08:46-0400 Body height 177.8 cm Lali Rodolfo AT [facility] Work Phone: NEGATED: Highlighted [id number] 08:46-0400 Body height 178 cm Lali Rodolfo AT [facility] Work Phone: NEGATED: Highlighted [id number] 08:46-0400 Body mass index (BMI) [Ratio] 29.23 kg/m2 Lali Rodolfo AT [facility] Work Phone: NEGATED: Highlighted [id number] 08:46-0400 Body weight 92.08 kg Lali Rodolfo AT [facility] Work Phone: NEGATED: Highlighted [id number] 08:46-0400 Body weight 92 kg Lali Rodolfo AT [facility] Work Phone: Encounters Encounter Date Encounter Type Care Provider Facility Start: 03-13-2023 End: 03-13-2023 ambulatory GATITO SULLIVAN Facility:[facility] Start: 03-10-2023 ambulatory ANA CASIANO [facility] Start: 03-06-2023 End: 03-06-2023 ambulatory ANA CASIANO Facility:[facility] Procedures Date Procedure Procedure Detail Performing Clinician Start: 05-10-2021 End: 05-10-2021 BP scrn no perf at interval Flakito Olson MD Work Phone: Start: 05-10-2021 End: 05-10-2021 Calc BMI out nrm freda nof/u Flakito Olson MD Work Phone: Start: 05-10-2021 End: 05-10-2021 Current tobacco non-user cad cap copd pv dm Flakito Olson MD Work Phone: Start: 05-10-2021 End: 05-10-2021 Docrev cur meds by perry Olson MD Work Phone: Start: 05-10-2021 End: [...] 04-22-2021 End: 04-22-2021 Docrev cur meds by perry Olson MD Work Phone: Start: 04-22-2021 End: 04-22-2021 No doc of pain Flakito Olson MD Work Phone: Start: 04-22-2021 End: 04-22-2021 Patient encounter procedure Flakito Olson MD Work Phone: NEGATED: Highlighted rowStart: 05-10-2021 End: 05-10-2021 Documentation of current medications Bharati Adam AT NEGATED: Highlighted rowStart: 04-22-2021 End: 04-22-2021 Documentation of current medications Lali Reynolds AT Plan of Treatment Date Care Activity Detail Author Start: 05-10-2021 End: 05-10-2021 Patient encounter procedure Appointment [facility] Work Phone: Start: 04-22-2021 End: 04-22-2021 Patient encounter procedure Appointment [facility] Work Phone: Start: 04-22-2021 End: 04-22-2021 Mri spinal canal lumbar w/o & w/contr matrl MRI lumbar with and without contrast [facility] Work Phone: Start: 04-22-2021 End: 04-22-2021 Mri spinal canal thoracic w/o & w/contr matrl MRI thoracic with and without contrast [facility] Work Phone: Payers Date Payer Category Payer Medicare [id number] Social History Date Type Detail Facility Start: 04-22-2021 End: 05-10-2021 Assertion Unknown if ever smoked [facility] Work Phone: NEGATED: Highlighted rowStart: 05-10-2021 End: 05-10-2021 Employment detail Employment detail [facility] Work Phone: Progress note 03-10-2023 Note Date & Type Note Facility 03-10-2023 Note HNO ID: [id number] Author: RIRI CLAYTON RT(R) Service: ? Author Type: Operations Supervisor Type: Progress Notes Filed: 03/10/2023 13:06 Note Text: Radiology Service Progress Note PATIENT NAME: Maria Luz Santana DATE OF SERVICE: March 10, 2023 TIME: 1:05 PM PATIENT IDENTITY VERIFICATION COMPLETED USING TWO (2) IDENTIFIERS: Name and Date of confirmed by patient verbally. FALL SCREENING: Has the patient had 2 falls in the last year or 1 fall with injury or currently using an Ambulatory Assistive Device (Walker, Cane, Wheelchair, Crutches, etc.)? No PATIENT GENDER DATA: Male PATIENT RELEVANT IMPLANT DATA REVIEWED: Not Applicable PATIENT PRESENTS WITH AN IMPLANTABLE OR ATTACHED LINUX NETWORK ENGINEER: No RADIOLOGY DEPARTMENT: General X-ray: Exam(s) Completed: GI/ Procedure(s): Esophogram with barium contrast PERIPHERAL IV DATA: Not applicable SIGNED BY: RT Dena(R) March 10, 2023 1:05 PM [facility] Progress note 03-06-2023 Note Date & Type Note Facility 03-06-2023 Note HNO ID: [id number] Author: KELLY ALBERT RN Service: ? Author Type: Nurse Clinician Type: Progress Notes Filed: 03/06/2023 11:22 Note Text: Patient given written information about upper GI x-ray and the prep instructions. I verbally discussed and reviewed the information with the patient. All of patient's questions were answered. Patient given written information about esophageal manometry and the prep instructions. I verbally discussed and reviewed the information with the patient. All of patient's questions were answered. Kelly Albert RN [facility] Progress note 03-06-2023 Note Date & Type Note Facility 03-06-2023 Note HNO ID: [id number] Author: GATITO SULLIVAN MD Service: ? Author Type: Physician Type: Progress Notes Filed: 03/06/2023 11:05 Note Text: SURGICAL SERVICES HISTORY AND PHYSICAL EXAMINATION SERVICE DATE: 03/06/2023 SERVICE TIME: 10:31 AM PRIMARY CARE PHYSICIAN: Ana Casiano MD SUBJECTIVE CHIEF COMPLAINT: reflux HISTORY OF PRESENT ILLNESS: Mr. Santana is a 72 year old male with a PMH of gallstones, GERD, hiatal hernia, Anthony's esophagus, HTN (HCTZ, lisinopril), SVT (diltiazem), inguinal hernias, STEPHANY (BiPAP), who presents for surgical consultation. Surgical consultation was requested by the patient's referring physician, Dr. Casiano. A copy of this consultation note will be provided to the requesting physician(s) by way of shared medical record or letter via [place] mail. The patient reports that greater than 14 years he has experienced reflux. He has been on many reflux medications over the years and has been on one medication of some sort for all of this time. He has had reactions to most of the medications he has been on recently. Currently he is taking 40 mg Pepcid BID and he is having some memory issues related to his medication and also has daily breakthrough symptoms despite being on the medication. His also endorses vocal hoarseness which is new for the patient. He endorses 2-3 times per week episodes of dysphagia with breads and crackers. He also has intermittent regurgitation of acid. He has made many lifestyle and dietary changes due to his symptoms. He has lost greater than 50 pounds over the last 10 years. He endorses new episodes of shortness of breath related to chest tightness and this happens several times a day. He does follow with a water pump servicer for SVT. He has not discussed this with his water pump servicer due to the fact that the patient thinks these symptoms are related to acid reflux. Workup: - EGD (12/22/22; Dr. Gill): LA Grade B reflux esophagitis, medium sized hiatal hernia. 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 Gill COLONOSCOPY 01/18/2015 EGD 01/18/2015 EGD WITH BIOPSY(S) 12/22/2022 medium hiatal hernia; Anthony's without dysplasia; Dr. Gill INGUINAL HERNIA REPAIR HX Left 10/11/1979 open PAST SURGICAL HISTORY OF jaw surgery VASECTOMY UNI/BI SPX W/POSTOP SEMEN EXAMS FAMILY HISTORY: FAMILY HISTORY Problem Relation Age of Onset Allergies Mother Diabetes Mother Hypertension Mother Stroke Mother Blood Disease Father Coronary Artery Disease Father Heart Father SOCIAL HISTORY: Social History Tobacco Use Smoking status: Never Smokeless tobacco: Never Substance Use Topics Alcohol use: Yes Comment: occasional Drug use: No MEDICATIONS: Current Outpatient Medications Medication Sig DILT-XR 120 mg 24 hr capsule famotidine (PEPCID) 40 mg tablet Take 40 mg by mouth once daily. allopurinol (ZYLOPRIM) 100 mg tablet Take 200 mg by mouth once daily. loratadine (CLARITIN) 10 mg tablet Take 10 mg by mouth once daily. LISINOPRIL ORAL Take by mouth. hydrochlorothiazide 12.5 mg tablet Take 12.5 mg by mouth once daily. Two tablets No current facility-administered medications for this visit. ALLERGIES: ALLERGIES Allergen Reactions Egg Derived Other: See Comments Milk Containing Pro* Diarrhea Penicillins Swelling swelling of tongue Steroids [Betametha* Swelling Tongue swelling COMPLETE REVIEW OF SYSTEMS: Review of Systems Constitutional: Negative for chills, diaphoresis, fever and malaise/fatigue. HENT: Negative for congestion, hearing loss, nosebleeds, sinus pain, sore throat and tinnitus. Eyes: Negative for blurred vision, double vision, pain and redness. Respiratory: Positive for shortness of breath. Negative for cough, hemoptysis, sputum production and wheezing. Cardiovascular: Negative for chest pain, palpitations, orthopnea, leg swelling and PND. Gastrointestinal: Positive for heartburn. Negative for abdominal pain, blood in stool, constipation, diarrhea, nausea and vomiting. Genitourinary: Negative for dysuria, frequency, hematuria and urgency. Musculoskeletal: Positive for joint pain. Negative for back pain, falls, myalgias and neck pain. Skin (more content not included)... [facility] Evaluation note Note Date & Type Note Facility Evaluation note There may be informa tion available, but it has not been provided by the sender. [facility] Work Phone: Instructions Note Date & Type Note Facility [facility] Work Phone: Instructions Note Date & Type Note Facility [facility] Work Phone: Chief Complaint Chief Complaint [...] has not been provided by the sender. No Advanced Directives Records Found Family History There may be information available, but it has not been provided by the sender.There may be information available, but it has not been provided by the sender.No Family History Records Found Summary Purpose Additional Source Comments Reason for Visit (unrecogniz ed section and content) Reason For Visit Description Start Date Test Result Preliminary reason f or visit data, not yet signed by the author as of lower back pain (unrecognized sect ion and content) No Status Records Found INFORMATION SOURCE (unrecogn ized section and content) FOR RECORDS PERTAINING TO PATIENTS WHO ARE [...] BE BASED ON THE PRIMARY CLINICAL RECORDS. [employer] provides no warranty or guarantee of the accuracy or completeness of information in this document.
== END | disposition home or self-care (01) ==
PROVIDERS: PCP Family Medicine
DX: M54.6 Pain in thoracic spine (principal)
CPT/HCPCS: 78306; A9503

== ENCOUNTER → 2023-03-31 | Outpatient (CLI) | payer MEDICARE, OTHER, SELFPAY ==
[2023-03-31 17:46] LABS: Bacteria 0 SEEN /hpf (None Seen); Mucous, Urine 0 SEEN /hpf (<or=2+); Red Blood Cells-Urine 0 SEEN /hpf (0-5); Squamous Epithelial Cells - UA 0 SEEN /hpf (0-5)
[2023-03-31 18:00] LABS: Absolute Lymphocyte Count 1.45 X10^3/uL (0.83-4.51); Absolute Neutrophil Count 3.7 X10^3/uL (2.0-7.7); Basophil# 0.04 X10^3/uL; Basophil% 0.7 % (0-1); Eosinophil# 0.11 X10^3/uL; Eosinophils% 1.9 % (0-5); Hemoglobin 12.6 g/dL (13.0-16.5); Lymphocyte # 1.45 X10^3/ul (0.83-4.51); Lymphocyte % 24.8 % (19-41); Mean Corp Hgb Conc 33.2 g/dL (32-36); Mean Corpuscular Hgb 31.8 pg (27.0-32.0); Monocyte# 0.55 X10^3/uL; Monocyte% 9.4 % (0-10); NRBC Flagged by Analyzer 0 % (0-5); Neutrophil # 3.67 X10^3/uL (2.7-7.7); Neutrophil % 62.9 % (47-70); Platelet Count 183 K/mm3 (150-450); RBC Distribution Width CV 14.5 % (11.6-14.6); RBC Distribution Width SD 51.1 fl (35.1-43.9); Red Blood Count 3.96 M/mm3 (4.6-6.2); White Blood Count 5.8 K/mm3 (4.4-11.0)
[2023-03-31 18:04] LABS: Color, Urine Yellow (Yellow); Glucose, Dipstick Normal (Normal); Ketone-Dipstick Negative (Negative); Leukocyte Esterase-Dipstick 100 /ul (Negative); Nitrite-Dipstick Negative (Negative); Occult Blood-Urine Negative /ul (Negative); Protein-Dipstick Negative (Negative); Urine Bilirubin Dipstick Negative (Negative); Urine Clarity Clear (Clear); Urine Urobilinogen Normal (Normal)
[2023-03-31 18:25] LABS: White Blood Cells 0-5 SEEN /hpf (0-5)
[2023-03-31 18:48] LABS: ALB/GLOB Ratio 1.2 RATIO (0.9-2.4); AST(SGOT) 22 U/L (15-37); Alanine Aminotransfer ALT/SGPT 31 U/L (16-61); Albumin, Serum 3.8 g/dL (3.2-5.0); Alkaline Phosphatase 63 U/L (45-117); Anion Gap 6 (5-15); BUN 19 mg/dL (7-18); CRP < 2.90 mg/L (0.0-3.0); Calcium,Total 9.2 mg/dL (8.5-10.1); Chloride 104 mmol/L (98-107); Creatinine, Serum 1.36 mg/dL (0.70-1.30); EST Glomerular Filtration Rate 55 mL/min (>60); Est Glom Filt Rate - Afr Amer 66 mL/min (>60); Globulin 3.1 g/dL (2.2-4.2); Glucose 102 mg/dL (74-106); PSA,Total- Diagnostic 0.58 ng/mL (0.0-4.0); Potassium 3.7 mmol/L (3.5-5.1); Protein, Total 6.9 g/dL (6.4-8.2); Sodium Level 138 mmol/L (136-145)
--- OUTSIDE RECORDS SUMMARY | 2023-03-31 20:51 | XMS RPT_ITS | CCD ---
Author Name Unknown Address [address] [place] [address] Organization [facility] Care Team Providers Care Store Coordinator Name Role Phone Wesley ACOSTA, Flakito Myers Unavailable [phone] Ana Casiano MD Primary Care Provider [phone] ANA CASIANO Primary Care Unavailable GATITO SULLIVAN Admitting Unavailable GATITO SULLIVAN Attending Unavailable GATITO SULLIVNA Attending Unavailable ANA CASIANO Primary Care Unavailable GATITO SULLIVAN Referring Unavailable LILIANE ANA Harpreet Primary Care Unavailable LILIANE ANA Harpreet Primary Care Unavailable LILIANE ANA Harpreet Referring Unavailable ALPA PEARSON Attending Unavailable Allergies Allergy Classification Reported Allergen(s) Allergy Type Date of Onset Reaction(s) Facility (2 sources) egg; Translations: [EGGS] food allergy 07-12-19 21 [facility] Work Phone: (2 sources) Kingdom Animalia; Translations: [ANIMALS] allergy to substance 04-20-19 [facility] Work Phone: (2 sources) Penicillin G Drug Allergy 07-12-19 [facility] Work Phone: (2 sources) Sulfacetamide Drug Allergy 07-12-19 21 [facility] Work Phone: (2 sources) PLANT POLLENS; Translations: [PLANT POLLENS] allergy to substance 07-12-19 21 hay fever [facility] Work Phone: (2 sources) DAIRY; Translations: [DAIRY] food allergy 07-12-19 21 [facility] Work Phone: (2 sources) Betamethasone; Translations: [BETAMETHASONE DIPROPIONATE] Drug Allergy 05-10-19 16 Swelling [facility] (2 sources) Egg; Translations: [EGG DERIVED] Drug Allergy 07-09-19 19 Other: See Comments [facility] (2 sources) febuxostat; Translations: [FEBUXOSTAT] Drug Allergy 03-13-19 24 Rash [facility] (2 sources) Glucocorticoid preparation; Translations: [CORTICOSTEROIDS (GLUCOCORTICOIDS) ] Drug Allergy 07-09-19 19 Other: See Comments, Shortness of Breath [facility] (2 sources) levoFLOXacin; Translations: [LEVOFLOXACIN] Drug Allergy 03-13-19 24 Rash [facility] (2 sources) Milk; Translations: [MILK CONTAINING PRODUCTS (DAIRY)] Drug Allergy 07-09-19 19 Diarrhea [facility] (2 sources) Omeprazole; Translations: [OMEPRAZOLE] Drug Allergy 03-13-19 Itching [facility] (2 sources) pantoprazole; Translations: [PANTOPRAZOLE] Drug Allergy 03-13-19 24 Itching [facility] (2 sources) Penicillins; Translations: [PENICILLINS] Drug Intolerance 10-02-19 14 Swelling [facility] Work Phone: Medications Completed/Discontinued Medications Medication Drug Class(es) Dates Sig (Normalized) Sig (Original) allopurinol 100 mg oral tablet (3 sources) Xanthine Oxidase Inhibitor Start: 07-11-2020 take 1 tablet by mouth once daily ALLOPURINOL 100 MG TABS 1 tablet by mouth once a day allopurinol [id number] Liset Lovett RN Problems Active Problems Problem Classification Problem Date Documented Date Episodic/Chronic Abdominal hernia (2 sources) Paraesophageal hernia; Translations: [Diaphragmatic hernia without obstruction or gangrene] Onset: 03-13-2023 03-30-2023 Episodic Cardiac dysrhythmias (2 sources) Supraventricular tachycardia; Translations: [SVT (supraventricular tachycardia)] Onset: 03-06-2023 03-30-2023 Chronic Esophageal disorders (2 sources) Gastro-esophageal reflux disease with esophagitis; Translations: [Gastroesophageal reflux disease with esophagitis without hemorrhage] Onset: 03-06-2023 03-30-2023 Chronic Esophageal disorders (2 sources) Esophageal disorders; Translations: [Gastroesophageal reflux disease with esophagitis, unspecified whether hemorrhage] Onset: 03-06-2023 Essential hypertension (2 sources) Hypertensive disorder; Translations: [Essential (primary) hypertension] Onset: 03-06-2023 03-30-2023 Chronic Joint disorders and dislocations; trauma-related (2 [...] codes; unclassified (1 source) Obstructive sleep apnea syndrome; Translations: [Obstructive sleep apnea (adult) (pediatric)] 03-30-2023 Chronic Residual codes; unclassified (1 source) Obstructive sleep [...] Time Vital Sign Value Performing Clinician Facility 03-30-2023 10:36-0500 Body height 177.8 cm Alpa Pearson [employer] Work Phone: [facility] 03-30-2023 10:36-0500 Body weight 88.91 kg Alpa Nguyenozoumar [employer] Work Phone: [facility] 03-30-2023 10:36-0500 Diastolic blood pressure 75 mm[Hg] Alpa Nguyenozer [employer] Work Phone: [facility] 03-30-2023 10:36-0500 Heart rate 65 /min Alpa Nguyenozoumar [employer] Work Phone: [facility] 03-30-2023 10:36-0500 Respiratory rate 18 /min Alpa Nguyenozer [employer] Work Phone: [facility] 03-30-2023 10:36-0500 SaO2% (BldA) [Mass fraction] 98 % Alpa Pearson [employer] Work Phone: [facility] 03-30-2023 10:36-0500 Systolic blood pressure 113 mm[Hg] Alpa Nguyenozer [employer] Work Phone: [facility] NEGATED: Highlighted [id number] 10:34-0400 Body height 177.8 cm Bharati Medina AT [facility] Work Phone: NEGATED: Highlighted [id number] 10:34-0400 Body height 178 cm Bharati Medina AT [facility] Work Phone: NEGATED: Highlighted [id number] 10:34-0400 Body mass index (BMI) [Ratio] 29.23 kg/m2 Bharati Medina AT [facility] Work Phone: NEGATED: Highlighted [id number] 10:34-0400 Body weight 92.08 kg Bharati Medina AT [facility] Work Phone: NEGATED: Highlighted [id number] 10:34-0400 Body weight 92 kg Bharati Medina AT [facility] Work Phone: NEGATED: Highlighted [id number] 08:46-0400 Body height 177.8 cm Lali Rodolfo AT [facility] Work Phone: NEGATED: Highlighted [id number] 08:46-0400 Body height 178 cm Lali Rodolfo AT [facility] Work Phone: NEGATED: Highlighted [id number] 08:46-0400 Body mass index (BMI) [Ratio] 29.23 kg/m2 Lali Rodolfo AT [facility] Work Phone: NEGATED: Highlighted [id number] 08:46-0400 Body weight 92.08 kg Lali Rodolfo AT [facility] Work Phone: NEGATED: Highlighted [id number] 08:46-0400 Body weight 92 kg Lali Rodolfo AT [facility] Work Phone: Encounters Encounter Date Encounter Type Care Provider Facility Start: 03-30-2023 ambulatory NAA CASIANO Facility:[facility] Start: 03-30-2023 End: 03-30-2023 Patient encounter procedure Alpa Pearson [employer] Work Phone: [facility] Procedures Date Procedure Procedure Detail Performing Clinician [...] Current tobacco non-user cad cap copd pv niurka Olson MD Work Phone: Start: 04-22-2021 End: 04-22-2021 Docrev cur meds by perry Olson MD Work Phone: Start: 04-22-2021 End: 04-22-2021 No doc of pain Flakito Olson MD Work Phone: Start: 04-22-2021 End: 04-22-2021 Patient encounter procedure Flakito Olson MD Work Phone: Start: 01-18-2015 Colonoscopy Alpa salter APRNAndriyINSTRUCTOR INDUSTRIAL DESIGN Work Phone: NEGATED: Highlighted rowStart: 05-10-2021 End: 05-10-2021 Documentation of current medications Bharati Medina AT NEGATED: Highlighted rowStart: 04-22-2021 End: 04-22-2021 Documentation of current medications Lali Reynolds AT Plan of Treatment Date Care Activity Detail Author Start: 12-08-2032 Urine microalbumin profile DTaP,Tdap,Td Vaccine (3 - Td or Tdap) [facility] Start: 01-18-2025 Screening for malignant neoplasm of colon [facility] Start: 03-30-2024 BP Controlled (<130/80) BP Controlled (<130/80) [facility] Start: 04-13-2023 End: 07-13-2023 CBC panel - Blood by Automated count CBC Lab Routine Preoperative examination Expected: 04/13/2023, Expires: 07/13/2023 [facility] Work Phone: Payers Date Payer Category Payer Medicare [id number] 2015 Medicare [id number] Social History Date Type Detail Facility Start: 04-22-2021 End: 05-10-2021 Assertion Unknown if ever smoked [facility] Work Phone: Start: 03-06-2023 Tobacco smoking status NHIS Never smoked tobacco [facility] Start: 03-06-2023 Tobacco use and exposure Smokeless tobacco non-user [facility] Start: 03-30-2023 Alcohol intake Current drinke r of alcohol (finding) [facility] Start: 03-06-2023 End: 03-30-2023 History of Social function [facility] Start: 03-06-2023 End: 03-30-2023 Tobacco use panel [facility] National Score (1-100), lower number is lower risk 48 [facility] Start: 05-10-2015 Alcohol Comment occasional [facility] Start: 1950 Sex Assigned At Not on file [facility] Start: 10-27-2019 Gender identity Identifies as male gender (finding) [facility] Start: 10-27-2019 Sexual orientation Heterosexual (fin ding) [facility] NEGATED: Highlighted rowStart: 05-10-2021 End: 05-10-2021 Employment detail Employment detail [facility] Work Phone: Progress note 03-30-2023 Note Date & Type Note Facility 03-30-2023 Note HNO ID: [id number] Author: ALPA PEARSON APRN.CNP Service: ? Author Type: Nurse Practitioner Type: Progress Notes Filed: 03/30/2023 13:18 Note Text: -- Summary: SOC -- Alpa Pearson APRN.[employer]STRUCTOR [employer] [facility] [address] [facility], [address] [place], [place] [address] Patient: Maria Luz Santana Date of : 1950 Subjective Scheduled OR Date: TBD Surgeon: Dr. Sullivan PCP: Ana Casinao MD DIAGNOSES: Hiatal Hernia PLANNED PROCEDURE: lap paraesophageal hernia with fundoplication HPI Maria Luz Santana is a 72 year old male, who was recently evaluated for surgery and has elected to proceed with the above mentioned surgical intervention. Patient has a h/o HTN, anemia, STEPHANY, kidney cancer with a left nephrectomy in 2020. Patient also has a h/o Anthony's esophagus, GERD, and a paraesophageal hernia. He is on famotidine. He had his esophogeal manometry on 03/13/23. Patient has met with Dr. Sullivan and surgery is TBD. Patient reports that he has noticed sometimes he has to catch his breath. Reports he was referred to Cardiology for clearance, was seen by Dr. Klein in [place] last week and reports there were no concerns from Cardiology. Reports he has been having sinus drainage, working with PCP using a few different nasal sprays. Reports a good appetite and no unexplained weight loss. Denies any N/V/D/C, or blood in the stool. Denies any CP, syncope, falls, fevers or chills. PAST MEDICAL HISTORY PAST MEDICAL HISTORY Diagnosis Date Anthony's esophagus without dysplasia 12/22/2022 Cancer of kidney (HCC) Gallstones 05/16/[address] Gout Hiatal hernia 12/22/2022 medium sized Hypertension Inguinal hernia 05/16/2022 bilateral, small Iron deficiency anemia Sleep apnea FAMILY HISTORY FAMILY HISTORY Problem Relation Age of Onset Allergies Mother Diabetes Mother Hypertension Mother Stroke Mother Blood Disease Father Coronary Artery Disease Father Heart Father PAST SURGICAL HISTORY PAST MEDICAL HISTORY Diagnosis Date Anthony's esophagus without dysplasia 12/22/2022 Cancer of kidney (HCC) Gallstones 05/16/[address] Gout Hiatal hernia 12/22/2022 medium sized Hypertension Inguinal hernia 05/16/2022 bilateral, small Iron deficiency anemia Sleep apnea ALLERGIES ALLERGIES Allergen Reactions Corticosteroids (Gl* Other: See Comments, Shortness of Breath Egg Derived Other: See Comments Levaquin [Levofloxa* Rash Milk Containing Pro* Diarrhea Omeprazole Itching Penicillins Swelling swelling of tongue Protonix [Pantopraz* Itching Steroids [Betametha* Swelling Tongue swelling Uloric [Febuxostat] Rash MEDICATIONS Current Outpatient Medications Medication Sig Dispense Refill ergocalciferol 50,000 unit capsule (VITAMIN D2, DRISDOL) Take 1 capsule by mouth one time a week. 8 capsule 0 DILT-XR 120 mg 24 hr capsule famotidine [...] No current facility-administered medications for this visit. Review of Systems Review of Systems Constitutional: Negative for chills, fever and unexpected weight change. HENT: Negative for trouble swallowing. Respiratory: Positive for apnea (h/o STEPHANY, compliant with BiPAP) and shortness of breath ( catches breath occasionally ). Negative for cough. +post nasal drainage Cardiovascular: Negative for chest pain, palpitations and leg swelling. Gastrointestinal: Negative for abdominal pain, blood in stool, constipation, diarrhea, nausea and vomiting. Genitourinary: Negative for hematuria. Musculoskeletal: Negative for gait problem. Skin: Negative for rash and wound. Neurological: Negative for dizziness, seizures, syncope and headaches. Psychiatric/Behavioral: Negative for confusion. OBJECTIVE PHYSICAL EXAMINATION: BP 113/75 Pulse 65 Resp 18 Ht 177.8 cm (5' 10 ) Wt 88.9 kg (196 lb) SpO2 98% BMI 28.12 kg/m? Body mass index is 28.12 kg/m?. Physical Exam Vitals and nursing note reviewed. Eyes: Pupils: Pupils are equal, round, and reactive to light. Neck: Vascular: No carotid bruit. Cardiovascular: Rate and Rhythm: Normal rate and regular rhythm. Pulses: Normal pulses. Heart sounds: Normal heart sounds. Pulmonary: Effort: Pulmonary effort is normal. Breath sounds: Normal breath sounds. Abdominal: General: Bowel sounds are normal. Musculoskeletal: Right lower leg: No edema. Left lower leg: No edema. Skin: Findings: No erythema or lesion. Neurological: Ment (more content not included)... [facility] History of Present illness Narrative 03-30-2023 Alpa Pearson APRN.[facility] - 03/30/2023 11:00 AM EST Note Date & Type Note Facility 03-30-2023 History of Presen t illness Narrative Summary: [facility] Images from the original note were not included. Alpa Pearson APRN.[facility] ([facility]) [address] [facility], [address] [place] [id number] Patient: Maria Luz Santana Date of : 1950 Subjective Scheduled OR Date: TBD Surgeon: Dr. Sullivan PCP: Ana Casiano MD DIAGNOSES: Hiatal Hernia PLANNED PROCEDURE: lap paraesophageal hernia with fundoplication HPI Maria Luz Santana is a 72 year old male, who was recently evaluated for surgery and has elected to proceed with the above mentioned surgical intervention. Patient has a h/o HTN, anemia, STEPHANY, kidney cancer with a left nephrectomy in 2020. Patient also has a h/o Anthony's esophagus, GERD, and a paraesophageal hernia. He is on famotidine. He had his esophogeal manometry on 03/13/23. Patient has met with Dr. Sullivan and surgery is TBD. Patient reports that he has noticed sometimes he has to catch his breath. Reports he was referred to Cardiology for clearance, was seen by Dr. Klein in [place] last week and reports there were no concerns from Cardiology. Reports he has been having sinus drainage, working with PCP using a few different nasal sprays. Reports a good appetite and no unexplained weight loss. Denies any N/V/D/C, or blood in the stool. Denies any CP, syncope, falls, fevers or chills. PAST MEDICAL HISTORY PAST MEDICAL HISTORY Diagnosis Date Anthony's esophagus without dysplasia 12/22/2022 Cancer of kidney (HCC) Gallstones 05/16/[address] Gout Hiatal hernia 12/22/2022 medium sized Hypertension Inguinal hernia 05/16/2022 bilateral, small Iron deficiency anemia Sleep apnea FAMILY HISTORY FAMILY HISTORY Problem Relation Age of Onset Allergies Mother Diabetes Mother Hypertension Mother Stroke Mother Blood Disease Father Coronary Artery Disease Father Heart Father PAST SURGICAL HISTORY PAST MEDICAL HISTORY Diagnosis Date Anthony's esophagus without dysplasia 12/22/2022 Cancer of kidney (HCC) Gallstones 05/16/[address] Gout Hiatal hernia 12/22/2022 medium sized Hypertension Inguinal hernia 05/16/2022 bilateral, small Iron deficiency anemia Sleep apnea ALLERGIES ALLERGIES Allergen Reactions Corticosteroids (Gl* Other: See Comments, Shortness of Breath Egg Derived Other: See Comments Levaquin [Levofloxa* Rash Milk Containing Pro* Diarrhea Omeprazole Itching Penicillins Swelling swelling of tongue Protonix [Pantopraz* Itching Steroids [Betametha* Swelling Tongue swelling Uloric [Febuxostat] Rash MEDICATIONS Current Outpatient Medications Medication Sig Dispense Refill ergocalciferol 50,000 unit capsule (VITAMIN D2, DRISDOL) Take 1 capsule by mouth one time a week. 8 capsule 0 DILT-XR 120 mg 24 hr capsule famotidine [...] No current facility-administered medications for this visit. Review of Systems Review of Systems Constitutional: Negative for chills, fever and unexpected weight change. HENT: Negative for trouble swallowing. Respiratory: Positive for apnea (h/o STEPHANY, compliant with BiPAP) and shortness of breath ( catches breath occasionally ). Negative for cough. +post nasal drainage Cardiovascular: Negative for chest pain, palpitations and leg swelling. Gastrointestinal: Negative for abdominal pain, blood in stool, constipation, diarrhea, nausea and vomiting. Genitourinary: Negative for hematuria. Musculoskeletal: Negative for gait problem. Skin: Negative for rash and wound. Neurological: Negative for dizziness, seizures, syncope and headaches. Psychiatric/Behavioral: Negative for confusion. OBJECTIVE PHYSICAL EXAMINATION: BP 113/75 Pulse 65 Resp 18 Ht 177.8 cm (5' 10 ) Wt 88.9 kg (196 lb) SpO2 98% BMI 28.12 kg/m Body mass index is 28.12 kg/m . Physical Exam Vitals and nursing note reviewed. Eyes: Pupils: Pupils are equal, round, and reactive to light. Neck: Vascular: No carotid bruit. Cardiovascular: Rate and Rhythm: Normal rate and regular rhythm. Pulses: Normal pulses. Heart sounds: Normal heart sounds. Pulmonary: Effort: Pulmonary effort is normal. Breath sounds: Normal breath sounds. Abdominal: General: Bowel sounds are normal. Musculoskeletal: Right lower leg: No edema. Left lower leg: No edema. Skin: Findings: No erythema or lesion. Neurological: Mental Status: He is alert and oriented to person, place, and time. Psychiatric: Mood and Affect: Mood normal. ADVANCED DIRECTIVES ADVANCED CARE PLANNING: Has Interest in creation of advance directives. Information will be given SURROGATE DECISION MAKERS: Spouse, Ira, number on file and verified -Patient working on AD and will bring in to be scanned when completed MENTAL STATUS: 4AT Delirium Test: -Alertness: Normal=0 Mild sleepiness for <10 seconds after waking, then normal=0 Clearly abnormal=4 -Abbreviated Mental Test: Age, , Location, current year(No mistake=0, One mistake=1, Two or more=2) -Attention: Months of the year backwards-(7 or more=0, less than 7=1, intestable=2) -Acute Change: Fluctuation in alertness, cognition, hallucinations over the past 2 weeks (No=0, yes=4) Total: 0 4 or more:possible delirium and/or cognitive impairment 1-3: possible cognitive impairment 0:Delirium or severe cognitive impairment unlikely Discussed possibility of delirium during hospital course Social History: Limited finances/resources: no Home assistance/caregiver required after surgery: no 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 Home environment/homeless/hygiene concerns: no PHQ-9 Questionnaire: Denies any symptoms No flowsheet data found.(0-4) minimal depression, (5-9) mild depression, (10-14) moderate depression, (15-19) moderately severe depression, (20-27) severe depression PIETRO-7 (Anxiety): Denies any symptoms No Data Recorded (0-4) minimal anxiety, (5-9) mild anxiety, (10-14) moderate anxiety, (15-21) severe anxiety Functional Status: Clinical Frailty Scale: -Very Fit- Exercise regularly (1) -Well- Occasionally active (2) -Managing Well- Not regularly active (3) -Vulnerable- Limited activity/tired throughout day/ slowed up (4) -Mildly Frail- Help needed with ADLs (finances, medications, transportation) (5) -Moderately Frail- Help with all outside activities and with keeping the house, stairs/bathing/dressing (6) -Severely Frail- Completely dependent for personal care (7) -Very Severely frail- Approaching End of Life (8) -Terminally Ill- Life expectancy < 6 months (9) SCORE: 1 Score 1-3- Walking Program Score 4-6- Referral to Outpatient PT/OT Score 7-9- Referral to Home PT/OT 20 mins bike and 30 mins walk, walking hour at work Functional assessment: WNL=Within normal limits Substance Abuse: Denies The Alcohol Use Disorders Identification Test (AUDIT): No flowsheet data found.The scoring instructions are as follows: Risk Level Intervention AUDIT score Zone I Alcohol Education 0-7 Zone II Simple Advice 8-15 Zone III Simple Advice plus Brief Counseling and Continued Monitoring 16-19 Zone IV Referral to Specialist for Diagnostic Evaluation and Treatment 20-40 SMOKER/TOBACCO USE: No Drug Abuse Screen Test (DAST-10): Denies No flowsheet data found. Sleep Apnea STOP BANG Questionnaire H/o STEPHANY, on Bipap, no oxygen needed Nutrition: Perioperative Nutrition Score (KRISTIE) BMI <18.5: No BMI <20 if age >65: No Eating less than 50% of normal diet in the preceding week: No Unplanned weight loss >10% in past 6 months: No Albumin Level less than 3: Will order CMP Protein supplement daily 20 mg Dyspnea Assessment (mMRC Dyspnea Scale): Dx of COPD/Asthma: No -I only get breathless with strenuous exercise 0 -I get SOB when hurrying on level ground or walking up a slight hill 1 -On level ground, I walk slower than people of the same age because of breathlessness, or have to stop for breath when walking at my own pace. 2 -I stop for breath after walking about 100 yards or after a few minutes on level ground 3 -I am too breathless to leave the house or I am breathless when dressing 4 Score: 0 Venous Thromboembolism Risk Assessment: Hx clotting disorder: No Hx PE/DVT: no OAC Use: No ASA use: No Pulmonology: Asthma: no COPD: no Hypoventilation syndrome: no Microsoft Application Developer: NA Recent exacerbation: No recent PNA or bronchitis Cardiac: Beta Derian use: No Hx of CAD: no Hx of HLD: no CHF: no Prior [place]: no Hx abnormal EKG: no Hx abnormal heart rhythm: no Valvular heart disease: no Hx endocarditis: no PAD: no PVD: no CVA: no HTN: yes, controlled on medication Pulmonary HTN: no Hx cardiovascular surgery: no Shipping Technician: Dr. Klein, will get EKG from office visit last week ASSESSMENT/PLAN: Maria Luz Santana is a 72 year old male, who was recently evaluated for surgery. Patient has a h/o HTN, anemia, STEPHANY, kidney cancer with a left nephrectomy in 2020. Patient also has a h/o Anthony's esophagus, GERD, and a paraesophageal hernia. He is on famotidine. He had his esophogeal manometry on 03/13/23. Patient has met with Dr. Sullivan and surgery is TBD. Vulnerabilities Assessed at Visit: 1.) None ACS Surgical Risk Calculator: [id number] - Laparoscopy, surgical, repair of paraesophageal hernia, includes fundoplasty, when performed; with implantation of mesh: 5.3% risk of serious complication, 0.2% risk of mortality, 6.1% risk of postop delirium, 33.8% risk of functional decline NUTRITION: KRISTIE score: negative -Education provided with reference material given to patient -Protein supplements to start 5 days prior to surgery, BID -Albumin lab work ordered -Vitamin D 50,000 units weekly x8 -Make sure to eat source of lean protein at each meal, aim for 71 grams of protein a day -Aim for 2 servings of leafy green vegetables a day ANEMIA: No -CBC ordered CKD: No -Reviewed with the patient the importance of hydration pre/postoperatively. -Nephrotoxic agents should be avoided pre and postoperatively -[employer], Dr. Norris, partial left nephrectomy in 2020 for kidney cancer DIABETES: No -CMP ordered MOBILITY: -Frailty score: 1=walking program -Pedometer: increase your steps by 100 every couple of days, goal is 2,000 steps per day over baseline COGNITION: -4AT score: 0=Delirium or severe cognitive impairment unlikely -Patient should bring all sensory aids with them DOS, hearing aids -Discussed risk of delirium during hospital course -Discussed importance of a delegated health proxy -Advanced Directives to be brought in to be scanned once completed PSYCHOSOCIAL: -Educational material given to patient for stress reduction/management -Denies any symptoms of depression or anxiety CARDIAC: Recommended cardiac clearance: requested per surgeon, saw Dr. Klein in [place] last week -will request EKG to be sent over -Continue BP medication during preoperative period as prescribed -METs >5 VENOUS THROMBOEMBOLISM RISK ASSESSMENT: -Surgeon to determine prophylaxis regimen PULMONOLOGY: -Stop BANG: h/o STEPHANY, on BiPAP -Dyspnea Scale: 0=able to climb a flight of stairs without SOB or CP -Start IS, instructions reviewed -Recommend using IS 10 times an hour while awake during hospital course -The function of the surgery optimization clinic is to optimize modifiable risk factors prior to surgery. This clinic does not provide medical clearance for surgery. As always, the decision whether or not to proceed with surgery should be based on an evaluation of the risks versus benefits of the procedure, and should be made between the patient in the surgeon. -A letter and copy of this encounter was sent to referring surgeon and the patient's primary care provider. -Surgery optimization clinic RN will follow up with patient on areas addressed for optimization. I spent a total of 100 minutes on the date of the service which included preparing to see the patient, [id number] patient care, completing clinical documentation, obtaining and/or reviewing separately obtained history, performing a medically appropriate examination, counseling and educating the patient/family/caregiver, ordering medications, tests, or procedures, and communicating with other HCPs (not separately reported). ELECTRONICALLY SIGNED AND DATED BY: Alpa Pearson APRN, CNP [facility] Surgery Optimization Clinic documented in this encounter [facility] Instructions 03-23-2023 Patient Instructions Note Date & Type Note Facility 03-23-2023 Instructions Alpa Pearson APRN.[facility] - 03/23/2023 11:23 AM EST Incentive Spirometer: -Start with breathing exercise today, goal 30-40 breaths a day *Incentive spirometer is used to help with lung expansion post operatively. It can be of benefit preoperatively to for those who smoke or have lung disease. Use the spirometer as instructed during your hospital visit. Take 10 deep breaths, hold for one second and then slowly exhale. You can take cleansing breaths in between as needed to avoid feeling dizzy or lightheaded. Use the spirometer hourly if possible. You will continue with this postoperatively. Pedometer: -Pedometer to monitor your steps starting today -For the first 3 days monitor your average daily steps to get your baseline number -Then increase your steps by 200-300 every couple of days as able -Goal is to increase mobility as much as possible prior to surgery * Research has shown that increased strength, mobility and function preoperatively will help you to recover with less complication. Your effort preoperatively will yield better results postoperatively Stress Relief: -Deep breathing exercises -Sleep: 6-8 hours of sleep each night -Meditate -Laughing -Walking -Positive self-talk -Finding a support system -Exercise, walking, being active Nutrition: -Make sure you are getting enough protein a day, with a goal of at least 1 high-protein food with each of your three meals a day -High protein sources include: chicken breast, lean beef, salmon, tofu, peanut butter, eggs, mauritian yogurt, cottage cheese, black beans, lentils -Make sure you are including high calcium foods, at least 3 servings a day: low-fat dairy, dark-leafy greens, sardines, or calcium-fortified cereals -Make sure you are getting vitamins and minerals by including at least four servings of fruits/vegetables a day - Drink 2 shakes daily for 5 days leading up to the day of surgery. *It has been shown through research that boosting the nutritional intake preoperatively with calories, vitamins and minerals, and hydration, promotes early recovery and improved healing postoperatively. You have been provided a case of supplement to take. Advanced Directives: Advanced directives are your preferences and personal requests in the event you are unable to make decisions for yourself following surgery. It is important for you to discuss your wishes with your family. It is requested that a single family member be designated as your power of insurance defense attorney in the event you cannot speak for yourself. This person should know what you would prefer as your medical choices if you were not compromised. This person, family or friend, should know what you prefer for your medical care and decisions if you are unable to make those decisions for yourself. Notify your surgeon s office to update your records with the designated Durable Power of Automobile Dealer. -A great web site for information: www.[email or web address] Sensory Aids: -If you have any sensory aids, such as hearing aids, or glasses, please bring these with you day of surgery -Encouraged to bring sleep hygiene items such as ear plugs and eye mask for more restful sleep during hospital stay - Information sheet on Delirium given to patient Sleep Apnea: If you have a CPAP machine, please bring that with you day of surgery. documented in this encounter [facility] Progress note 03-10-2023 Note Date & Type Note Facility 03-10-2023 Note HNO ID: [id number] Author: RIRI CLAYTON RT(R) Service: ? Author Type: Product Manager [employer] Services Type: Progress Notes Filed: 03/10/2023 13:06 Note [...] PATIENT PRESENTS WITH AN IMPLANTABLE OR ATTACHED END FRAZER: No RADIOLOGY DEPARTMENT: General X-ray: Exam(s) Completed: GI/ Procedure(s): Esophogram with barium contrast PERIPHERAL IV DATA: Not applicable SIGNED BY: RT Dena(R) March 10, 2023 1:05 PM [facility] Progress note 03-06-2023 Note Date & Type Note Facility 03-06-2023 Note HNO ID: [id number] Author: KELLY ALBERT RN Service: ? Author [...] patient's questions were answered. Kelly Albert RN [facility] Progress note 03-06-2023 Note Date & Type Note Facility 03-06-2023 Note HNO ID: [id number] Author: GATITO SULLIVAN MD Service: ? Author [...] a day. He does follow with a department of natural resources officer for [employer]. He has not discussed this with his department of natural resources officer due to the fact that the patient [...] neck pain. Skin (more content not included)... [facility] Evaluation note Note Date & Type Note Facility Evaluation note There may be informa tion available, but it has not been provided by the sender. [facility] Work Phone: Evaluation note Note Date & Type Note Facility documented in this encounter [facility] Instructions Note Date & Type Note Facility [facility] Work Phone: Instructions Note Date & Type Note Facility [facility] Work Phone: Chief Complaint [...] the author as of lower back pain Source Comments (unrecognize d section and content) In the event this informatio n is protected by the Federal Confidentiality of Alcohol and Drug Abuse Patient Records regulations: The Federal rules restrict any use of the information to criminally investigate or prosecute any alcohol or drug abuse patient.[facility] Care Teams (unrecognized sec tion and content) (unrecognized sect ion and content) No Status [...] BE BASED ON THE PRIMARY CLINICAL RECORDS. [facility]. provides no warranty or guarantee of the accuracy or completeness of information in this document.
== END | disposition home or self-care (01) ==
LOC: LAB 17:40
PROVIDERS: PCP Family Medicine; Referring Provider Family Medicine; Visit Provider Family Medicine
DX: R10.32 Left lower quadrant pain (principal)
CPT/HCPCS: 36415; 80053; 81001; 84153; 85025; 86140; 87086; 87088

== ENCOUNTER → 2023-04-20 | Outpatient (CLI) | payer MEDICARE, OTHER, SELFPAY ==
--- OUTSIDE RECORDS SUMMARY | 2023-04-20 09:54 | XMS RPT_ITS | CCD ---
Author Name Unknown Address [address] [place] [address] Organization [facility] Care Team Providers Care Investigative Research Specialist Name Role Phone Wesley ACOSTA, Flakito Myers Unavailable Ana Casiano MD Primary Care Provider [phone] Dwayne Klein MD Unavailable ANA CASIANO Primary Care Unavailable GATITO SULLIVAN Referring Unavailable LILIANE, ANA A Primary Care Unavailable LILIANE ANA A Referring Unavailable GATITO SULLIVAN Attending Unavailable LILIANE, ANA A Primary Care Unavailable LILIANE, ANA A Referring Unavailable ALPA PEARSON Attending Unavailable CASIANO, ANA A Primary Care Unavailable NATECHARLEE LAINEZTA Admitting Unavailable GATITO SULLIVAN Attending Unavailable LILIANE, ANA A Primary Care Unavailable GATITO SULLIVAN Attending Unavailable Allergies Allergy Classification Reported Allergen(s) Allergy Type Date of Onset Reaction(s) Facility (2 sources) egg; Translations: [EGGS] food allergy 07-12-19 [facility] Work Phone: (2 sources) [employer]; Translations: [ANIMALS] allergy to substance 04-20-19 22 [facility] Work Phone: (2 sources) Penicillin G Drug Allergy 07-12-19 [facility] Work Phone: (2 sources) Sulfacetamide Drug Allergy 07-12-19 [facility] Work Phone: (2 sources) PLANT POLLENS; Translations: [PLANT POLLENS] allergy to substance 07-12-19 21 hay fever [facility] Work Phone: (2 sources) DAIRY; Translations: [DAIRY] food allergy 07-12-19 21 [facility] Work Phone: (5 sources) Betamethasone; Translations: [BETAMETHASONE DIPROPIONATE] Drug Allergy 05-10-19 16 Swelling [facility] (5 sources) Egg; Translations: [EGG DERIVED] Drug Allergy 07-09-19 19 Other: See Comments [facility] (5 sources) febuxostat; Translations: [FEBUXOSTAT] Drug Allergy 03-13-19 24 Rash [facility] (5 sources) Glucocorticoid preparation; Translations: [CORTICOSTEROIDS (GLUCOCORTICOIDS) ] Drug Allergy 07-09-19 19 Other: See Comments, Shortness of Breath [facility] (5 sources) levoFLOXacin; Translations: [LEVOFLOXACIN] Drug Allergy 03-13-19 Rash [facility] (5 sources) Milk; Translations: [MILK CONTAINING PRODUCTS (DAIRY)] Drug Allergy 07-09-19 19 Diarrhea [facility] (5 sources) Omeprazole; Translations: [OMEPRAZOLE] Drug Allergy 03-13-19 Itching [facility] (5 sources) pantoprazole; Translations: [PANTOPRAZOLE] Drug Allergy 03-13-19 Itching [facility] (5 sources) Penicillins; Translations: [PENICILLINS] Drug Intolerance 10-02-19 14 Swelling [facility] Work Phone: Medications Completed/Discontinued Medications Medication Drug Class(es) Dates Sig (Normalized) Sig (Original) allopurinol 100 mg oral tablet (6 sources) Xanthine Oxidase Inhibitor Start: 07-11-2020 take 1 tablet by mouth once daily ALLOPURINOL 100 MG TABS 1 tablet by mouth once a day allopurinol [id number] Liset Lovett RN Problems Active Problems Problem Classification Problem Date Documented Date Episodic/Chronic Abdominal hernia (4 sources) Paraesophageal hernia; Translations: [Diaphragmatic hernia without obstruction or gangrene] Onset: 03-10-2023 03-30-2023 Episodic Cardiac dysrhythmias (3 sources) Supraventricular tachycardia; Translations: [SVT (supraventricular tachycardia)] Onset: 04-02-2023 03-30-2023 Chronic Esophageal disorders (4 sources) Gastro-esophageal reflux disease with esophagitis; Translations: [Gastroesophageal reflux disease with esophagitis without hemorrhage] Onset: 04-02-2023 03-30-2023 Chronic Esophageal disorders (2 sources) Esophageal disorders; Translations: [Gastroesophageal reflux disease with esophagitis, unspecified whether hemorrhage] Onset: 03-10-2023 Essential hypertension (3 sources) Hypertensive disorder; Translations: [Essential (primary) hypertension] Onset: 04-02-2023 03-30-2023 Chronic Joint disorders and dislocations; trauma-related [...] breath] Onset: 03-06-2023 Episodic Residual codes; unclassified (2 sources) Obstructive sleep apnea syndrome; Translations: [Obstructive sleep apnea (adult) (pediatric)] 03-30-2023 Chronic Residual codes; unclassified (1 source) Obstructive sleep apnea (adult) (pediatric); Translations: [STEPHANY treated with BiPAP] Onset: 04-02-2023 Chronic Spondylosis; intervertebral disc disorders; other back [...] Time Vital Sign Value Performing Clinician Facility 04-02-2023 08:27-0500 Body height 177.8 cm Gatito Sullivan MD Work Phone: [facility] 04-02-2023 08:27-0500 Body weight 90.27 kg Gatito Sullivan MD Work Phone: [facility] 04-02-2023 08:27-0500 Diastolic blood pressure 68 mm[Hg] Gatito Sullivan MD Work Phone: [facility] 04-02-2023 08:27-0500 Heart rate 67 /min Gatito Sullivan MD Work Phone: [facility] 04-02-2023 08:27-0500 Systolic blood pressure 110 mm[Hg] Gatito Sullivan MD Work Phone: [facility] 03-30-2023 10:36-0500 Body height 177.8 cm Alpa Nguyenozer [employer]EL HAND.SUPERVISOR ENGRAVING Work Phone: [facility] 03-30-2023 10:36-0500 Body weight 88.91 kg Alpa Boozer [employer]EL [employer].SUPERVISOR ENGRAVING Work Phone: [facility] 03-30-2023 10:36-0500 Diastolic blood pressure 75 mm[Hg] Alpa Boozer CREEL HAND.SUPERVISOR ENGRAVING Work Phone: [facility] 03-30-2023 10:36-0500 Heart rate 65 /min Alpa Boozer [employer]EL HAND.SUPERVISOR ENGRAVING Work Phone: [facility] 03-30-2023 10:36-0500 Respiratory rate 18 /min Alpa Boozer [employer]EL HAND.SUPERVISOR ENGRAVING Work Phone: [facility] 03-30-2023 10:36-0500 SaO2% (BldA) [Mass fraction] 98 % Alpa Pearson [employer]EL HAND.SUPERVISOR ENGRAVING Work Phone: [facility] 03-30-2023 10:36-0500 Systolic blood pressure 113 mm[Hg] Alpa Pearson [employer]EL HAND.SUPERVISOR ENGRAVING Work Phone: [facility] NEGATED: Highlighted [id number] 10:34-0400 Body height 177.8 cm Bharati Kelbach AT [facility] Work Phone: NEGATED: Highlighted [id number] 10:34-0400 Body height 178 cm Bharati Kelbach AT [facility] Work Phone: NEGATED: Highlighted [id number] 10:34-0400 Body mass index (BMI) [Ratio] 29.23 kg/m2 Bharati Kelbach AT [facility] Work Phone: NEGATED: Highlighted [id number] 10:34-0400 Body weight 92.08 kg Bharati Kelbach AT [facility] Work Phone: NEGATED: Highlighted [id number] 10:34-0400 Body weight 92 kg Bharati Kelbach AT [facility] Work Phone: NEGATED: Highlighted [id number] 08:46-0400 Body height 177.8 cm Lali Reynolds AT [facility] Work Phone: NEGATED: Highlighted [id number] 08:46-0400 Body height 178 cm Lalimonica Reynolds AT [facility] Work Phone: NEGATED: Highlighted [id number] 08:46-0400 Body mass index (BMI) [Ratio] 29.23 kg/m2 Lali Rodolfo AT [facility] Work Phone: NEGATED: Highlighted [id number] 08:46-0400 Body weight 92.08 kg Lali Rodolfo AT [facility] Work Phone: NEGATED: Highlighted [id number] 08:46-0400 Body weight 92 kg Lali Reynolds AT [facility] Work Phone: Encounters Encounter Date Encounter Type Care Provider Facility Start: 04-13-2023 Telephone encounter Alpa salter [employer]EL HAND.SUPERVIS[employer]RA[employer]ING Work Phone: [facility] Procedures Date Procedure Procedure [...] Work Phone: Start: 01-18-2015 Colonoscopy Alpa salter [employer]EL [employer].SUPERVIS[employer]RA[employer] Work Phone: NEGATED: Highlighted rowStart: 05-10-2021 End: 05-10-2021 Documentation of current medications Bharati Medina AT NEGATED: Highlighted rowStart: 04-22-2021 End: 04-22-2021 Documentation of current medications Lali Reynolds AT Plan of Treatment Date Care Activity Detail Author Start: 12-08-2032 Urine microalbumin profile DTaP,Tdap,Td Vaccine (3 - Td or Tdap) [facility] Start: 04-06-2026 Diabetes Screening Diabetes Screening [facility] Start: 01-18-2025 Screening for malignant neoplasm of colon [facility] Start: 04-02-2024 BP Controlled (<130/80) BP Controlled (<130/80) [facility] Start: 03-30-2024 BP Controlled (<130/80) BP Controlled (<130/80) [facility] Start: 04-13-2023 End: 07-13-2023 CBC panel - Blood by Automated count CBC Lab Routine Preoperative examination Expected: 04/13/2023, Expires: 07/13/2023 [facility] Work Phone: Payers Date Payer Category Payer Medicare [id number] 2015 Medicare [id number] 2015 Medicare [id number] Social History Date Type Detail Facility Start: 04-22-2021 End: 05-10-2021 Assertion Unknown if ever smoked [facility] Work Phone: Start: 03-06-2023 Tobacco smoking status NHIS Never smoked tobacco [facility] Start: 03-06-2023 Tobacco use and exposure Smokeless tobacco non-user [facility] Start: 03-30-2023 End: 04-02-2023 Alcohol intake Current drinker of alcohol (finding) [facility] Start: 03-06-2023 End: 03-30-2023 History of Social function [facility] Start: 03-06-2023 End: 03-30-2023 Tobacco use panel [facility] National Score (1-100), lower number is lower risk 48 [facility] Start: 05-10-2015 [facility] Start: 1950 Sex Assigned At Not on file [facility] Start: 10-27-2019 Gender identity Identifies as male gender (finding) [facility] Start: 10-27-2019 Sexual orientation Heterosexual (fin ding) [facility] NEGATED: Highlighted rowStart: 05-10-2021 End: 05-10-2021 Employment detail Employment detail [facility] Work Phone: Clinical Notes 03-06-2023 to 04-13-2023 Telephone Encounter - Alpa Pearson APRN.CNP - 04/13/2023 12:03 PM ESTTelephone Encounter - Tanja Underwood RN - 04/02/2023 10:15 AM Kelly Mas RN - 04/02/2023 9:54 AM EST Note Date & Type Note Facility 04-13-2023 Miscellaneous Notes Summary: SOC Updates LMV for patient to call clinic with SOC updates. Alpa Pearson APRN.CHADD documented in this encounter [facility] 04-02-2023 Note HNO ID: [id number] Author: KELLY ALBERT RN Service: ? Author Type: Nurse Clinician Type: Progress Notes Filed: 04/02/2023 09:55 Note Text: Patient given folder with written information about laparoscopic Toupet fundoplication and hiatal hernia repair, including the pre-op instructions, what to expect in the hospital, pre- and post-op diet and discharge instructions. I verbally discussed and reviewed all the information with the patient and his . All of patient's questions were answered. Patient has my contact information if he has questions prior to surgery. Kelly Albert RN [facility] 04-02-2023 Note HNO ID: [id number] Author: GATITO SULLIVAN MD Service: ? Author Type: Physician Type: Progress Notes Filed: 04/02/2023 09:22 Note Text: SURGICAL SERVICES HISTORY AND PHYSICAL EXAMINATION SERVICE DATE: 04/02/2023 SERVICE TIME: 8:43 AM PRIMARY CARE PHYSICIAN: Ana Casiano MD SUBJECTIVE CHIEF COMPLAINT: reflux HISTORY OF PRESENT ILLNESS: Mr. Santana is a 72 year old male with a PMH of gallstones, GERD, hiatal hernia, Anthony's esophagus, HTN (HCTZ, lisinopril), SVT (diltiazem), inguinal hernias, STEPHANY (BiPAP) who presents for follow up after testing. The patient reports he has been coughing a lot recently due to chronic sinus drainage. He sees an computer education teacher and is on medications for this. He is clearing his throat and coughing. He has greatly restricted his diet and does continue to have reflux symptoms despite taking Famotidine. He endorses intermittent dysphagia with breads or crackers - this occurs 2-3 times per week. He did see cardiology and has been cleared for surgery. He believes that the SOB is related to increased mucus production and this improves with albuterol inhaler. Workup: - CT abd/pelvis (done for back pain) done last week at [facility] patient will get this uploaded - Manometry (03/13/23): Ineffective esophageal motility; DCI less than 500 - Esophagram (03/10/23): Persistent area of very mild stricture within the distal esophagus which could be more optimally evaluated by direct visualization. Gastroesophageal reflux into the midesophagus - EGD (12/22/22; Dr. Gill): LA Grade B reflux esophagitis, medium sized hiatal hernia. 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 He does follow with a loom stop checker for SVT. He has not discussed this with his loom stop checker due to the fact that the patient thinks these symptoms are related to acid reflux. Social: denies x 3; cutting down on [...] hiatal hernia; Anthony's without dysplasia; Dr. Gill ESOPHAGEAL MANOMETRY 03/13/2023 Dr. Sullivan EXTENSIVE JAW SURGERY INGUINAL HERNIA REPAIR HX Left 10/11/1979 open NEPHRECTOMY PARTIAL Left 2020 VASECTOMY UNI/BI SPX W/POSTOP SEMEN EXAMS FAMILY HISTORY: FAMILY HISTORY Problem Relation Age of Onset Allergies Mother Diabetes Mother Hypertension Mother Stroke Mother Blood Disease Father Coronary Artery Disease Father Heart Father SOCIAL HISTORY: Social History Tobacco Use Smoking status: Never Smokeless tobacco: Never Substance Use Topics Alcohol use: Yes Comment: occasional Drug use: No MEDICATIONS: Current Outpatient Medications Medication Sig ergocalciferol 50,000 unit capsule (VITAMIN D2, DRISDOL) Take 1 capsule by mouth one time a week. DILT-XR 120 mg 24 hr capsule famotidine [...] for this visit. ALLERGIES: ALLERGIES Allergen Reactions Corticosteroids (Gl* Other: (more content not included)... [facility] 04-02-2023 Miscellaneous Notes Cardiology clearance letter sent/faxed to Dr. Dwayne Klein MD. Tanja Underwood, RN documented in this encounter [facility] 04-02-2023 History of Present illness Narrative Patient given folder with written information about laparoscopic Toupet fundoplication and hiatal hernia repair, including the pre-op instructions, what to expect in the hospital, pre- and post-op diet and discharge instructions. I verbally discussed and reviewed all the information with the patient and his . All of patient's questions were answered. Patient has my contact information if he has questions prior to surgery. Kelly Albert RN SURGICAL SERVICES HISTORY AND PHYSICAL EXAMINATION SERVICE DATE: 04/02/2023 SERVICE TIME: 8:43 AM PRIMARY CARE PHYSICIAN: Ana Casiano MD SUBJECTIVE CHIEF COMPLAINT: reflux HISTORY OF PRESENT ILLNESS: Mr. Santana is a 72 year old male with a PMH of gallstones, GERD, hiatal hernia, Anthony's esophagus, HTN (HCTZ, lisinopril), SVT (diltiazem), inguinal hernias, STEPHANY (BiPAP) who presents for follow up after testing. The patient reports he has been coughing a lot recently due to chronic sinus drainage. He sees an computer education teacher and is on medications for this. He is clearing his throat and coughing. He has greatly restricted his diet and does continue to have reflux symptoms despite taking Famotidine. He endorses intermittent dysphagia with breads or crackers - this occurs 2-3 times per week. He did see cardiology and has been cleared for surgery. He believes that the SOB is related to increased mucus production and this improves with albuterol inhaler. Workup: - CT abd/pelvis (done for back pain) done last week at [facility] patient will get this uploaded - Manometry (03/13/23): Ineffective esophageal motility; DCI less than 500 - Esophagram (03/10/23): Persistent area of very mild stricture within the distal esophagus which could be more optimally evaluated by direct visualization. Gastroesophageal reflux into the midesophagus - EGD (12/22/22; Dr. Gill): LA Grade B reflux esophagitis, medium sized hiatal hernia. 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 He does follow with a loom stop checker for SVT. He has not discussed this with his loom stop checker due to the fact that the patient thinks these symptoms are related to acid reflux. Social: denies x 3; cutting down on [...] hiatal hernia; Anthony's without dysplasia; Dr. Gill ESOPHAGEAL MANOMETRY 03/13/2023 Dr. Sullivan EXTENSIVE JAW SURGERY INGUINAL HERNIA REPAIR HX Left 10/11/1979 open NEPHRECTOMY PARTIAL Left 2020 VASECTOMY UNI/BI SPX W/POSTOP SEMEN EXAMS FAMILY HISTORY: FAMILY HISTORY Problem Relation Age of Onset Allergies Mother Diabetes Mother Hypertension Mother Stroke Mother Blood Disease Father Coronary Artery Disease Father Heart Father SOCIAL HISTORY: Social History Tobacco Use Smoking status: Never Smokeless tobacco: Never Substance Use Topics Alcohol use: Yes Comment: occasional Drug use: No MEDICATIONS: Current Outpatient Medications Medication Sig ergocalciferol 50,000 unit capsule (VITAMIN D2, DRISDOL) Take 1 capsule by mouth one time a week. DILT-XR 120 mg 24 hr capsule famotidine [...] for this visit. ALLERGIES: ALLERGIES Allergen Reactions Corticosteroids (Gl* Other: See Comments, Shortness of Breath Egg Derived Other: See Comments Levaquin [Levofloxa* Rash Milk Containing Pro* Diarrhea Omeprazole Itching Penicillins Swelling swelling of tongue Protonix [Pantopraz* Itching Steroids [Betametha* Swelling Tongue swelling Uloric [Febuxostat] Rash COMPLETE REVIEW OF SYSTEMS: Review of Systems Constitutional: Negative for chills, diaphoresis, fever and malaise/fatigue. HENT: Negative for congestion, hearing loss, nosebleeds, sinus pain, sore throat and tinnitus. Eyes: Negative for blurred vision, double vision, pain and redness. Respiratory: Negative for cough, hemoptysis, sputum production, shortness of breath and wheezing. Cardiovascular: Negative for chest pain, palpitations, orthopnea, leg swelling and PND. Gastrointestinal: Positive for heartburn. Negative for abdominal pain, blood in stool, constipation, diarrhea, nausea and vomiting. Genitourinary: Negative for dysuria, frequency, hematuria and urgency. Musculoskeletal: Positive for joint pain. Negative for falls, myalgias and neck pain. Skin: Negative for itching and rash. Neurological: Positive for headaches. Negative for dizziness, speech change, focal weakness, seizures, loss of consciousness and weakness. Endo/Heme/Allergies: Does not bruise/bleed easily. Psychiatric/Behavioral: Negative for depression, hallucinations, memory loss, substance abuse and suicidal ideas. The patient is not nervous/anxious and does not have insomnia. OBJECTIVE PHYSICAL EXAM: BP 110/68 Pulse 67 Ht 5' 10 (1.78m) Wt 199 lb (90.3kg) BMI 28.55 kg/(m^2). Physical Exam Vitals reviewed. Constitutional: Appearance: Normal appearance. HENT: Head: Normocephalic and atraumatic. Nose: Nose normal. Eyes: General: No scleral icterus. Extraocular Movements: Extraocular movements intact. Conjunctiva/sclera: Conjunctivae normal. Pupils: Pupils are equal, round, and reactive to light. Cardiovascular: Rate and Rhythm: Normal rate. Pulmonary: Effort: Pulmonary effort is normal. Skin: General: Skin is warm and dry. Coloration: Skin is not jaundiced or pale. Neurological: General: No focal deficit present. Mental Status: He is alert and oriented to person, place, and time. Psychiatric: Mood and Affect: Mood normal. DATA: Diagnostic tests reviewed for today's visit: EMR reviewed Plan ASSESSMENT AND PLAN Garcia Santana is a 72 year old male with a PMH as noted above who presents with GERD. 1. Gastroesophageal reflux disease with esophagitis without hemorrhage - ICD9: 530.81, 530.10, ICD10: K21.00 (primary diagnosis) - Discussed lifestyle modifications including losing weight, limiting caffeine, no meals three hours before sleep, and head of bed elevation - Continue treatment with Pepcid 40 mg BID - Today in clinic the patient and I reviewed his diagnosis, his workup and treatment up to this point, and my recommended treatment going forward. We discussed surgical repair of his known paraesophageal hernia which has been complicated by Anthony's esophagus and severe GERD symptoms as evidence by elevated DeMeester score. - We reviewed the surgical procedure - laparoscopic, possible open, paraesophageal hernia repair with partial posterior fundoplication, Bio-A mesh placement, EGD, and possible blood transfusion. - All of his questions and concerns were addressed. The informed consent was reviewed and the patient provided both written and verbal informed consent. We discussed the potential risks and complications associated with surgery, including but not limited to, infection, scarring, postoperative bleeding, injury to surrounding structures (stomach, esophagus, spleen, liver, lungs), deep vein thrombosis, pulmonary embolism, pneumonia, myocardial infarction. We also discussed correction risks of recurrence, dysphagia, and bloating. - While we will perform appropriate precautions to minimize patient exposure and risk, by undergoing surgery during the Covid-19 pandemic, the patient understands and accepts the unpredictable nature of the Covid-19 virus and the possibility of risks specific to the Covid-19 virus including but not limited to pneumonia, respiratory failure, sepsis, blood clots in different organs, heart attack, stroke, multiple organ failure, and . The patient understands and accepts these risks prior to proceeding with surgery. - CONSULT TO PRE-SURGICAL TESTING (AG) - CBC + DIFF - BASIC METABOLIC PNL 2. Hiatal hernia - ICD9: 553.3, ICD10: K44.9 - As above 3. Anthony's esophagus without dysplasia - ICD9: 530.85, ICD10: K22.70 - He will require surveillance with GI - he will follow up with Dr. Gill for this 4. Hypertension, unspecified type - ICD9: 401.9, ICD10: I10 - Continue current medical management 5. STEPHANY treated with BiPAP - ICD9: 327.23, ICD10: G47.33 - Continue current medical management - Bring BiPAP machine to hospital on day of surgery 6. SVT (supraventricular tachycardia) - ICD9: 427.89, ICD10: I47.10 - Continue current medical management Medical Decision Making: Problems: Moderate: 2+ stable chronic illnesses Data: Unique test result(s) reviewed: 3+ Discussed management or test w/ external physician/QHCP/source Risk: Moderate: Drug management High: Decision on elective major surgery w/ risk factors Medical Decision Making Level: 5 - High SIGNATURE: Gatito Sullivan MD PATIENT NAME: Garcia Santana DATE: April 02, 2023 TIME: 8:43 AM PAGER/CONTACT #: [id number] documented in this encounter [facility] 03-30-2023 Note HNO ID: [id number] Author: ALPA PEARSON APRN.SUPERVISOR ENGRAVING Service: ? Author Type: Nurse Practitioner Type: Progress Notes Filed: 03/30/2023 13:18 Note Text: Summary: SOC Alpa Pearson APRN.[facility] (SOC) [address] [facility], [address] [place] [id number] Patient: Garcia Santana Date of : 1950 Subjective Scheduled OR Date: TBD Surgeon: Dr. Sullivan PCP: Ana Casiano MD DIAGNOSES: Hiatal Hernia PLANNED PROCEDURE: lap paraesophageal hernia with fundoplication HPI Garcia Santana is a 72 year old male, [...] clearance, was seen by Dr. Klein in [place] last week and reports there were no [...] trouble swallowing. Respiratory: Positive for apnea (h/o STEPHNAY, compliant with BiPAP) and shortness of breath [...] lesion. Neurological: Ment (more content not included)... [facility] 03-30-2023 History of Present illness Narrative Summary: SOC Images from the original note were not included. Alpa Pearson APRN.[facility] Surgery [facility] (SOC) [address] [facility], [address] [place] [address] Patient: Garcia Santana Date of : 1950 Subjective Scheduled OR Date: TBD Surgeon: Dr. Sullivan PCP: Ana Casiano MD DIAGNOSES: Hiatal Hernia PLANNED PROCEDURE: lap paraesophageal hernia with fundoplication HPI Garcia Santana is a 72 year old male, [...] clearance, was seen by Dr. Klein in [place] last week and reports there were no [...] after surgery: no Currently involved with Case Management/Licensing Court Magistrate: no Home environment/homeless/hygiene concerns: no PHQ-9 Questionnaire: [...] Asthma: no COPD: no Hypoventilation syndrome: no Butter Production Supervisor: NA Recent exacerbation: No recent PNA or bronchitis Cardiac: Beta Derian use: No Hx of CAD: no Hx of HLD: no CHF: no Prior KS: no Hx abnormal EKG: no Hx abnormal heart rhythm: no Valvular heart disease: no Hx endocarditis: no PAD: no PVD: no CVA: no HTN: yes, controlled on medication Pulmonary HTN: no Hx cardiovascular surgery: no Recruiter Specialist: Dr. 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 Klein in [place] last week -will request EKG to be sent over -Continue BP medication during preoperative period as prescribed -METs >5 VENOUS THROMBOEMBOLISM RISK ASSESSMENT: -Surgeon to determine prophylaxis regimen PULMONOLOGY: -Stop BANG: h/o STPEHANY, on BiPAP -Dyspnea Scale: 0=able to climb [...] which included preparing to see the patient, [id number] patient care, completing clinical documentation, obtaining and/or reviewing separately obtained history, performing a medically appropriate examination, counseling and educating the patient/family/caregiver, ordering medications, tests, or procedures, and communicating with other HCPs (not separately reported). ELECTRONICALLY SIGNED AND DATED BY: Alpa Pearson APRN, CNP [facility] documented in this encounter [facility] 03-23-2023 Instructions Alpa Pearson APRN.[facility] - 03/23/2023 [...] lean beef, salmon, tofu, peanut butter, eggs, tajik yogurt, cottage cheese, black beans, lentils -Make [...] member be designated as your power of city attorney in the event you cannot speak [...] records with the designated Durable Power of Mainframe Systems Programmer. -A great web site for information: www.[email or web address].org Sensory Aids: -If you have any sensory [...] day of surgery. documented in this encounter [facility] 03-10-2023 Note HNO ID: [id number] Author: RIRI CLAYTON RT(R) Service: ? Author Type: Screw Machine Repairer Type: Progress Notes Filed: 03/10/2023 13:06 Note Text: Radiology Service Progress Note PATIENT NAME: Garcia Santana DATE OF SERVICE: March 10, 2023 [...] PATIENT PRESENTS WITH AN IMPLANTABLE OR ATTACHED LEGAL INVESTIGATOR: No RADIOLOGY DEPARTMENT: General X-ray: Exam(s) Completed: GI/ Procedure(s): Esophogram with barium contrast PERIPHERAL IV DATA: Not applicable SIGNED BY: RT Dena(R) March 10, 2023 1:05 PM [facility] 03-06-2023 Note HNO ID: [id number] Author: KELLY ALBERT RN Service: ? Author [...] patient's questions were answered. Kelly Albert RN [facility] 03-06-2023 Note HNO ID: [id number] Author: GATITO SULLIVAN MD Service: ? Author [...] a day. He does follow with a loom stop checker for SVT. He has not discussed this with his loom stop checker due to the fact that the patient [...] neck pain. Skin (more content not included)... [facility] Evaluation note There may be informa tion available, but it has not been provided by the sender. [facility] Work Phone: [facility] Diagnosis Gastroesophageal reflux disease with esophagitis without hemorrhage- Primary Hiatal hernia Diaphragmatic hernia without mention of obstruction or gangrene Anthony's esophagus without dysplasia Anthony's esophagus Hypertension, unspecified type STEPHANY treated with BiPAP SVT (supraventricular tachycardia) Other specified cardiac dysrhythmias [facility] Instruction Description Start Date CompletedPatient advised to follow-up with Primary Care Physician for BMI management. [facility] Work Phone: Instructions* Instruction Description Start Date Completed [facility] Work Phone: Chief Complaint Chief Complaint [...] by the sender.No Family History Records Found Reason for Referral Specialty Diagnoses / Procedures Referred By Contac t Referred To Contact Diagnoses Gastroesophageal reflux disease with esophagitis without hemorrhage Procedures CONSULT TO PRE-SURGICAL TESTING (AG) Gatito Sullivan MD [address] [address] Referral ID Status Reason Start Date Expiration Date Visits Requested Visits Authorized [id number] Ref Not Required PCP Requested Referral 04/02/2023 07/01/2023 1 1 Summary Purpose Additional Source Comments Reason for Visit (unrecogniz ed section and content) Reason For Visit Description Start Date Test Result Preliminary reason f or visit data, not yet signed by the author as of lower back pain Reason Comments Follow Up Reason Comments Medical Clearance Reason Comments Patient Update Source Comments (unrecognize d section and content) In the event this informatio n is protected by the Federal Confidentiality of Alcohol and Drug Abuse Patient Records regulations: The Federal rules restrict any use of the information to criminally investigate or prosecute any alcohol or drug abuse patient.[facility] the event this information is protected by the Federal Confidentiality of Alcohol and Drug Abuse Patient Records regulations: The Federal rules restrict any use of the information to criminally investigate or prosecute any alcohol or drug abuse patient.[facility] the event this information is protected by the Federal Confidentiality of Alcohol and Drug Abuse Patient Records regulations: The Federal rules restrict any use of the information to criminally investigate or prosecute any alcohol or drug abuse patient.[facility] the event this information is protected by the Federal Confidentiality of Alcohol and Drug Abuse Patient Records regulations: The Federal rules restrict any use of the information to criminally investigate or prosecute any alcohol or drug abuse patient.[facility] Care Teams (unrecognized sec tion and content) Investigative Research Specialist Relationship Specialty Start Date End Date Ana Casiano MD [address] [place], [place] [address] PCP - General Family Medicine 01/12/18 Dwayne Klein MD [address] [id number] Cardiology 04/02/23 Investigative Research Specialist Relationship Specialty Start Date End Date Ana Casiano MD [address] [place], [place] [address] PCP - General Family Medicine 01/12/18 Dwayne Klein MD [address] [id number] Cardiology 04/02/23 Investigative Research Specialist Relationship Specialty Start Date End Date Ana Casiano MD [address] [place] [address] PCP - General Family Medicine 01/12/18 Dwayne Klein MD [address] [place] [id number] Cardiology 04/02/23 (unrecognized sect ion and content) No Status [...] BE BASED ON THE PRIMARY CLINICAL RECORDS. [facility] [employer] [facility]. provides no warranty or guarantee of the accuracy or completeness of information in this document.
[2023-04-20 12:53] LABS: PTHIN 39.5 pg/mL (18.4-80.1)
[2023-04-20 12:55] LABS: Vitamin D,25 Hydroxy 33.8 ng/mL
[2023-04-20 13:43] LABS: ALB/GLOB Ratio 1.1 RATIO (0.9-2.4); AST(SGOT) 14 U/L (15-37); Alanine Aminotransfer ALT/SGPT 28 U/L (16-61); Albumin, Serum 3.6 g/dL (3.2-5.0); Alkaline Phosphatase 74 U/L (45-117); Anion Gap 5 (5-15); BUN 14 mg/dL (7-18); BUN/Creat Ratio 12.4 RATIO (10-20); Calcium,Total 9.4 mg/dL (8.5-10.1); Chloride 107 mmol/L (98-107); Creatinine, Serum 1.13 mg/dL (0.70-1.30); EST Glomerular Filtration Rate 68 mL/min (>60); Est Glom Filt Rate - Afr Amer 82 mL/min (>60); Globulin 3.2 g/dL (2.2-4.2); Glucose 101 mg/dL (74-106); Potassium 3.9 mmol/L (3.5-5.1); Protein, Total 6.8 g/dL (6.4-8.2); Sodium Level 142 mmol/L (136-145); Thyroid Stim Hormone (TSH) 1.56 uIU/mL (0.358-3.74)
== END | disposition home or self-care (01) ==
LOC: MFPLAB 09:33
PROVIDERS: Internal Medicine Endocrinology, Diabetes & Metabolism; PCP Family Medicine; Visit Provider Family Medicine
DX: M81.0 Age-related osteoporosis without current pathological fracture (principal); E21.5 Disorder of parathyroid gland, unspecified; E04.0 Nontoxic diffuse goiter; E55.9 Vitamin D deficiency, unspecified
CPT/HCPCS: 36415; 80053; 82306; 83970; 84443

== ENCOUNTER 2023-05-01 14:30 | Emergency (ER) | payer MEDICARE, OTHER, SELFPAY ==
[2023-05-01 14:32] VITALS: BP 116/62; PULSE 70; RESP 18; TEMP 36; O2SAT 99; BMI 29.1
--- NOTE | 2023-05-01 14:49 | EKG12_ITS ---
Test Reason : CP Blood Pressure : / mmHG Vent. Rate : 060 BPM Atrial Rate : 060 BPM P-R Int : 174 ms QRS Dur : 096 ms QT Int : 434 ms P-R-T Axes : 026 009 032 degrees QTc Int : 434 ms Normal sinus rhythm Confirmed by Damien Cornejo ([id number]), food editor KAVIN GALAN ([id number]) on 05/05/2023 8:53:08 AM Referred By: STEPHANY Confirmed By:Damien Cornejo
--- NOTE | 2023-05-01 14:50 | RAD_ITS ---
STUDY: X-RAY CHEST REASON FOR EXAM: Male, 72 years old. Chest pain TECHNIQUE: Single AP portable view of the chest. COMPARISON: Comparison is made with prior study dated February 13, 2023. FINDINGS: EKG electrodes are seen. Hyperinflation. Mild increased markings at the left lung base suggestive of either atelectasis and/or scarring. There is no demonstrated pleural abnormality. Normal size heart. Normal mediastinum and byron. Normal visualized pulmonary arteries. There is atherosclerotic tortuosity of the aortic arch and descending thoracic aorta. There are degenerative changes of the visualized thoracic spine. Normal visualized ribs, clavicles, and shoulders. There is no demonstrated abnormality of the visualized soft tissue structures of the upper abdomen. RAD/Chest 1 View (Portable) IMPRESSION: Persistent mild increased markings at the left lung base suggestive of linear atelectasis and/or scarring. Electronically Signed: Shimon Alcazar MD at 15:07 EDT ,
--- NOTE | 2023-05-01 14:52 | EX.ED.DYSGE1 ---
HPI <DEEP Alanis - Last Filed: 05/01/23 18:29> History of Present Illness Chief Complaint: Chest Pain Narrative Narrative: Patient resenting today due to left-sided chest pressure that started this afternoon around noon. He reports that he became fatigued and felt like his heart was pounding, he went to take a nap and when he got up he noticed left-sided chest pressure that has been constant since. It is not worse with exertion. He reports a history of a tachyarrhythmia for which he takes diltiazem for, he denies any other cardiac history. He reports a history of hypertension and hyperlipidemia. He reports that he did have a stress test about a year ago that was unremarkable. He follows with Dr. Klein. He is not feeling short of breath and denies any history of blood clots, recent surgery/procedures/travel/immobilization. He denies any recent illness, fevers, and chills. PFS <DEEP Alanis - Last Filed: 05/01/23 18:29> [facility] Medical History Alcohol use Barretts esophagus (01/05/23) Cancer Cardiology follow-up encounter Chronic cough Closed left hip fracture Dietary restriction Difficulty swallowing Eczema Essential hypertension Fracture of radial head, left, closed Fracture of right patella Fracture of right radius GERD (gastroesophageal reflux disease) Gout History of hiatal hernia History of irregular heartbeat History of renal cell cancer History of renal disease History of stress test Hyperlipidemia Hyperuricemia Migraine headache Non-smoker Obesity Osteoporosis Personal history of supraventricular tachycardia Seasonal allergies Spinal stenosis Wears glasses Wears hearing aid Home Medications hydrochlorothiazide 12.5 mg capsule 12.5 mg PO BID 02/20/21 [History Last Taken Unknown] lisinopril 20 mg tablet 20 mg PO BID HTN 02/20/21 [History Last Taken 06/12/21] ubrogepant 100 mg tablet (Ubrelvy) 100 mg PO ONCE PRN migraines 02/20/21 [History Last Taken Unknown] diltiazem HCl 120 mg capsule,extended release 24 hr, controlled (DILT-XR) 120 mg PO DAILY 12/19/22 [History Last Taken Unknown] azelastine 137 mcg (0.1 %) nasal spray aerosol 1 spray intranasal BID PRN Allergies 02/24/23 [History Last Taken Unknown] famotidine 40 mg tablet 20 mg PO BID GERD 02/24/23 [History Last Taken Unknown] allopurinol 100 mg tablet 200 mg PO DAILY PRN Gout 05/01/23 [History Last Taken Unknown] Allergy/AdvReac Type Severity Reaction Status Date / Time Egg Derived Allergy Severe Food Verified 05/01/23 14:32 Allergy febuxostat [From Uloric] Allergy Intermediate Other Verified 05/01/23 14:32 Penicillins Allergy Anaphylaxis Verified 05/01/23 14:32 omeprazole AdvReac Intermediate Rash Verified 05/01/23 14:32 pantoprazole [From Protonix] AdvReac Intermediate Hives Verified 05/01/23 14:32 Corticosteroids AdvReac Hypertensio Verified 05/01/23 14:32 (Glucocorticoids) n [steroids] Milk Containing Products AdvReac Diarrhea Verified 05/01/23 14:32 (Dairy) [Milk Containing Products] Family History Mother Diabetes Dementia Heart disease tachycardia Father Heart disease Leukemia Surgical History History of colonoscopy History of esophagogastroduodenoscopy (EGD) History of hip surgery History of mandibular surgery History of partial nephrectomy Social History household members: spouse current occupational status: retired Smoking Status: Never smoker alcohol intake: current alcohol intake frequency: a few times a week Alcohol type: beer substance use type: does not use diet: lactose free caffeine: No what type of physical activity do you participate in: walking and bicycling frequency: 3-4 times per week ROS <DEEP Alanis - Last Filed: 05/01/23 18:29> ROS ED Constitutional Constitutional ED: Denies chills or fever(s) Cardiovascular Cardiovascular: Reports chest pain; Denies palpitations Respiratory/Chest Respiratory/Chest: Denies cough or dyspnea Gastrointestinal Gastrointestinal: Denies abdominal pain, nausea or vomiting Musculoskeletal Musculoskeletal: Denies arthralgias or myalgias Integumentary Denies rash Neurologic Neurologic: Denies weakness EXAM <DEEP Alanis - Last Filed: 05/01/23 18:29> Physical Exam Const Vital Signs: 05/01/23 14:32 05/01/23 15:38 05/01/23 15:31 Temperature 96.8 F L Temperature Source Temporal Pulse Rate 70 61 62 Respiratory Rate 18 15 18 Blood Pressure 116/62 99/65 99/59 L Blood Pressure Mean 80 76 72 Pulse Ox 99 97 98 Oxygen Delivery Method Room Air Room Air 05/01/23 16:00 05/01/23 17:00 05/01/23 18:02 Temperature Temperature Source Pulse Rate 65 67 60 Respiratory Rate 14 16 16 Blood Pressure 112/70 112/72 120/79 Blood Pressure Mean 84 85 92 Pulse Ox 98 97 98 Oxygen Delivery Method Room Air Room Air 05/01/23 18:02 Temperature 96.8 F L Temperature Source Pulse Rate 60 Respiratory Rate 16 Blood Pressure 120/79 Blood Pressure Mean 92 Pulse Ox 98 Oxygen Delivery Method Positive well nourished, well developed and no apparent distress General Appearance ED: well developed HEENT Reports normocephalic and head/scalp atraumatic Mouth ED: Yes moist mucous membranes normal Eyes PERRL and EOMs intact bilaterally Neck full ROM and supple Chest Wall inspection of chest normal and palpation of chest normal Resp normal respiratory effort and clear to auscultation bilaterally Cardio regular rate and regular rhythm GI soft to palpation, non-tender, non-distended and no masses Back/Spine normal ROM and normal to inspection Extremity normal to inspection and full ROM Neuro oriented x3, CN's II-XII intact bilaterally, moves all extremities, no focal motor deficits and no sensory deficits noted Sensorium / Orientation: awake and alert Psych mental status grossly normal and thought process normal Skin no rashes or lesions noted and no wounds <Dr. Jc Villarreal MD - Last Filed: 05/01/23 16:16> Physical Exam Const Vital Signs: 05/01/23 14:32 05/01/23 15:38 05/01/23 15:31 Temperature 96.8 F L Temperature Source Temporal Pulse Rate 70 61 62 Respiratory Rate 18 15 18 Blood Pressure 116/62 99/65 99/59 L Blood Pressure Mean 80 76 72 Pulse Ox 99 97 98 Oxygen Delivery Method Room Air Room Air 05/01/23 16:00 05/01/23 17:00 05/01/23 18:02 Temperature Temperature Source Pulse Rate 65 67 60 Respiratory Rate 14 16 16 Blood Pressure 112/70 112/72 120/79 Blood Pressure Mean 84 85 92 Pulse Ox 98 97 98 Oxygen Delivery Method Room Air Room Air 05/01/23 18:02 Temperature 96.8 F L Temperature Source Pulse Rate 60 Respiratory Rate 16 Blood Pressure 120/79 Blood Pressure Mean 92 Pulse Ox 98 Oxygen Delivery Method [facility] <DEEP Alanis - Last Filed: 05/01/23 18:29> [facility] Narrative Medical decision making narrative: Patient presenting today due to left sided chest pressure started this afternoon. He had a stress test about a year ago that was unremarkable, he does not have any cardiac history. He is well-appearing and in no acute distress, vitals are unremarkable. Patient has a Wells score of 0, low suspicion for PE. Cardiac workup will be obtained to rule out ACS. EKG negative for any signs of cardiac ischemia. Nonsignificant delta troponin, otherwise labs are unremarkable. Chest x-ray negative for any acute cardiopulmonary abnormality. On reexamination he reports that his symptoms have gone away. I do think that patient is stable for outpatient follow-up and will be discharged home in stable condition. He is comfortable with plan. I have personally performed a face to face assessment of the patient and have reviewed the VESNA Note. I performed a substantive portion of the visit including all aspects of the following. My brown findings include: History is 70-year-old male no cardiac history. Stress test about a year ago which was unremarkable. Today was at home and physical therapy earlier. 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 Started having some left-sided chest discomfort which she described as pressure. Some radiated to his left arm. No nausea. No diaphoresis. No shortness of breath. No history of DVT or PE or risk factors. No leg pain or swelling. No hemoptysis. Exam is [well-appearing 72-year-old male. Vital signs stable afebrile. Pulse ox 99% room air no hypoxia. HEENT exam unremarkable. Neck nontender no JVD. Lungs clear to auscultation bilaterally. Chest wall and ribs nontender. No bruising. No reproducible pain. No subcu air or crepitance. Heart regular rate and rhythm rate about 70 no murmur. Abdomen soft nontender normal bowel sounds no peritoneal signs. Moving all 4 extremities. Calves are nontender without edema or cords. Equal symmetrical radial pulses. 5 out of 5 framing manager strength. Dorsi plantarflexion intact. Back nontender. Neurologically is awake and alert no focal motor deficits. Answering questions following commands.] Medical Decision Making [72-year-old male with left-sided chest discomfort. Undergo cardiac workup. His initial EKG is unremarkable. No signs of GA or ischemia. Chest x-ray is unremarkable.] Other additions or changes: [None] Lab Data Labs: Laboratory Results - last 24 hr 05/01/23 05/01/23 14:53 16:49 WBC 6.9 RBC 4.41 L Hgb 13.6 Hct 41.8 MCV 94.8 H MCH 30.8 MCHC 32.5 RDW Std Deviation 49.3 H RDW Coeff of Tin 14.1 Plt Count 207 MPV 9.2 Immature Gran % (Auto) 0.400 Neut % (Auto) 69.9 Lymph % (Auto) 17.4 L Lamb % (Auto) 8.8 Eos % (Auto) 2.9 Baso % (Auto) 0.6 Absolute Neuts (auto) 4.9 Absolute Lymphs (auto) 1.21 Nucleated RBC % 0 Sodium 140 Potassium 3.5 Chloride 106 Carbon Dioxide 29.0 Anion Gap 5 BUN 19 H Creatinine 1.25 Estim Creat Clear Calc 60.91 Est GFR (MDRD) Af Amer 73 Est GFR (MDRD) Non-Af 60 BUN/Creatinine Ratio 15.2 Glucose 107 H Calcium 9.4 Troponin I High Sens 6 6 Radiography Diagnostic Testing: Clinical Impression(s) from Imaging Studies Chest X-Ray 05/01/23 14:50 IMPRESSION: Persistent mild increased markings at the left lung base suggestive of linear atelectasis and/or scarring. Electronically Signed: Shimon Alcazar MD at 15:07 EDT , EKG Initial EKG: Comments: 60 bpm, normal sinus rhythm, no ST elevation, no signs of cardiac ischemia, reviewed and interpreted by attending ED physician <Dr. Jc Villarreal MD - Last Filed: 05/01/23 16:16> MDM MDM Narrative Medical decision making narrative: I have personally performed a face to face assessment of the patient and have reviewed the VESNA Note. I performed a substantive portion of the visit including all aspects of the following. My brown findings include: History is 70-year-old male no cardiac history. Stress test about a year ago which was unremarkable. Today was at home and physical therapy earlier. 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 Started having some left-sided chest discomfort which she described as pressure. Some radiated to his left arm. No nausea. No diaphoresis. No shortness of breath. No history of DVT or PE or risk factors. No leg pain or swelling. No hemoptysis. Exam is [well-appearing 72-year-old male. Vital signs stable afebrile. Pulse ox 99% room air no hypoxia. HEENT exam unremarkable. Neck nontender no JVD. Lungs clear to auscultation bilaterally. Chest wall and ribs nontender. No bruising. No reproducible pain. No subcu air or crepitance. Heart regular rate and rhythm rate about 70 no murmur. Abdomen soft nontender normal bowel sounds no peritoneal signs. Moving all 4 extremities. Calves are nontender without edema or cords. Equal symmetrical radial pulses. 5 out of 5 framing manager strength. Dorsi plantarflexion intact. Back nontender. Neurologically is awake and alert no focal motor deficits. Answering questions following commands.] Medical Decision Making [72-year-old male with left-sided chest discomfort. Undergo cardiac workup. His initial EKG is unremarkable. No signs of GA or ischemia. Chest x-ray is unremarkable.] Other additions or changes: [None] History & Record Review Discussion w/independent historian: Patient Additional record(s) reviewed:: Prior inpatient record, Prior outpatient record, Prior ED visit, Prior labs and No prior records Lab Data Attestation: I reviewed the patient's lab results. Lab results narrative: CBC normal. White count of 6.9. H&H 13 and 41. Platelets 207. Electrolytes show a gap of 5. BUN 19 creatinine 1.2. Glucose 107. Initial troponin 6. Labs: Laboratory Results - last 24 hr 05/01/23 05/01/23 14:53 16:49 WBC 6.9 RBC 4.41 L Hgb 13.6 Hct 41.8 MCV 94.8 H MCH 30.8 MCHC 32.5 RDW Std Deviation 49.3 H RDW Coeff of Tin 14.1 Plt Count 207 MPV 9.2 Immature Gran % (Auto) 0.400 Neut % (Auto) 69.9 Lymph % (Auto) 17.4 L Lamb % (Auto) 8.8 Eos % (Auto) 2.9 Baso % (Auto) 0.6 Absolute Neuts (auto) 4.9 Absolute Lymphs (auto) 1.21 Nucleated RBC % 0 Sodium 140 Potassium 3.5 Chloride 106 Carbon Dioxide 29.0 Anion Gap 5 BUN 19 H Creatinine 1.25 Estim Creat Clear Calc 60.91 Est GFR (MDRD) Af Amer 73 Est GFR (MDRD) Non-Af 60 BUN/Creatinine Ratio 15.2 Glucose 107 H Calcium 9.4 Troponin I High Sens 6 6 Radiography Chest X-Ray - ED: 1 View, Read by ED Physician, Heart, Lungs, Mediastinum, Bony Structures, No Acute Disease and Chronic Changes Diagnostic Testing: Clinical Impression(s) from Imaging Studies Chest X-Ray 05/01/23 14:50 IMPRESSION: Persistent mild increased markings at the left lung base suggestive of linear atelectasis and/or scarring. Electronically Signed: Shimon Alcazar MD at 15:07 EDT , Chest x-ray, portable, single view interpreted by myself shows no acute abnormality. Normal cardiac silhouette. Normal mediastinum. Normal lung vann. Chronic changes. Discharge Plan Triage Chief Complaint: Chest Pain ED Midlevel Provider: Zayda Tinajero ED Provider: Jc Villarreal Dx/Rx/DC Orders Clinical Impression: Chest pain Instructions: ED Chest Pain, Uncertain Cause Prescriptions: No Action hydrochlorothiazide 12.5 mg capsule 12.5 mg PO BID Patient Comments: TAKES 2 CAPSULES IN MORNING PER MD INSTRUCTIONS lisinopril 20 mg tablet 20 mg PO BID Patient Comments: TAKE 1 TABLET BY MOUTH TWICE DAILY Ubrelvy 100 mg tablet 100 mg PO ONCE PRN (Reason: migraines) Patient Comments: Take 1 (one) Tablet PIERRE once daily as needed for migraine azelastine 137 mcg (0.1 %) aerosol,spray 1 spray intranasal BID PRN (Reason: Allergies) Rx Instructions: administer into each nostril 1-2 sprays as needed diltiazem HCl [DILT-XR] 120 mg capsule,ext.rel 24h degradable 120 mg PO DAILY famotidine 40 mg tablet 20 mg PO BID allopurinol 100 mg tablet 200 mg PO DAILY PRN (Reason: Gout) Primary Care Provider: Arnaldo Casiano Referrals: Arnaldo Casiano MD [Primary Care Provider] - 3-5 Days Activity Restrictions/Additional Instructions: Follow-up with your PCP and return for any worsening of your symptoms. Disposition Disposition: Home, Self Care Discharge Date/Time: 05/01/23 18:04
[2023-05-01 15:03] LABS: Absolute Lymphocyte Count 1.21 X10^3/uL (0.83-4.51); Absolute Neutrophil Count 4.9 X10^3/uL (2.0-7.7); Basophil# 0.04 X10^3/uL; Basophil% 0.6 % (0-1); Eosinophils% 2.9 % (0-5); Hematocrit 41.8 % (40-54); Hemoglobin 13.6 g/dL (13.0-16.5); Lymphocyte # 1.21 X10^3/ul (0.83-4.51); Lymphocyte % 17.4 % (19-41); Mean Corp Hgb Conc 32.5 g/dL (32-36); Mean Corpuscular Hgb 30.8 pg (27.0-32.0); Mean Corpuscular Volume 94.8 fL (80-94); Mean Platelet Vol. 9.2 fl (6.2-12.0); Monocyte# 0.61 X10^3/uL; Monocyte% 8.8 % (0-10); NRBC Flagged by Analyzer 0 % (0-5); Neutrophil # 4.85 X10^3/uL (2.7-7.7); Neutrophil % 69.9 % (47-70); Platelet Count 207 K/mm3 (150-450); RBC Distribution Width CV 14.1 % (11.6-14.6); RBC Distribution Width SD 49.3 fl (35.1-43.9); Red Blood Count 4.41 M/mm3 (4.6-6.2); White Blood Count 6.9 K/mm3 (4.4-11.0)
[2023-05-01 15:26] LABS: Anion Gap 5 (5-15); BUN 19 mg/dL (7-18); BUN/Creat Ratio 15.2 RATIO (10-20); Calcium,Total 9.4 mg/dL (8.5-10.1); Chloride 106 mmol/L (98-107); Creatinine, Serum 1.25 mg/dL (0.70-1.30); EST Glomerular Filtration Rate 60 mL/min (>60); Est Glom Filt Rate - Afr Amer 73 mL/min (>60); Estimated Creatinine Clearance 60.91 ml/min; Glucose 107 mg/dL (74-106); Potassium 3.5 mmol/L (3.5-5.1); Sodium Level 140 mmol/L (136-145); Troponin-I HS (w/2H Reflex) 6 pg/mL (3.0-78.0)
[2023-05-01 15:31] VITALS: BP 99/59; PULSE 62; RESP 18; O2SAT 98
[2023-05-01 15:38] VITALS: BP 99/65; PULSE 61; RESP 15; O2SAT 97
[2023-05-01 16:00] VITALS: BP 112/70; PULSE 65; RESP 14; O2SAT 98
--- NOTE | 2023-05-01 16:32 | CHAPLAIN ---
Type of Pastoral Visit ___ Initial Visit ___ Follow-up Visit ___ On-call Visit _x__ General Patient Visit ___ Spiritual Assessment ___ Family Conference ___ Bereavement ___ Rapid Response ___ Code Blue ___ Other (describe below) Pastoral Care Referral From _x__ Patient _x__ Family ___ Nurse ___ Physician ___ Tool Design Drafter ___ Pulp Drier Firer ___ Other (describe below) Sacrament/Intervention _x__ Active listening ___ Anointing ___ Methodist ___ Bereavement ___ Communion _x__ Kim exploration ___ ___ Life review _x__ Prayer ___ Reconciliation ___ Sacrament of Sick ___ Supportive presence ___ Wedding ___ Other (describe below) Pastoral Comments
[2023-05-01 17:00] VITALS: BP 112/72; PULSE 67; RESP 16; O2SAT 97
[2023-05-01 17:00] LABS: Reflex Troponin-HS? (from REC) Y
[2023-05-01 17:25] LABS: Troponin-I HS 6 pg/mL (3.0-78.0)
[2023-05-01 18:02] VITALS: BP 120/79; PULSE 60; RESP 16; TEMP 36; O2SAT 98
== END 2023-05-01 18:04 | disposition home or self-care (01) ==
PROVIDERS: Physician Assistant; Emergency Provider Emergency Medicine; PCP Family Medicine; Visit Provider Emergency Medicine
DX: R07.9 Chest pain, unspecified (principal); I10 Essential (primary) hypertension; E78.5 Hyperlipidemia, unspecified; Z79.899 Other long term (current) drug therapy; G43.909 Migraine, unspecified, not intractable, without status migrainosus; K21.9 Gastro-esophageal reflux disease without esophagitis; M10.9 Gout, unspecified; Z90.5 Acquired absence of kidney
CPT/HCPCS: 71045; 80048; 84484; 85025; 93005; 99284; A4216

== ENCOUNTER → 2023-06-30 | Outpatient (CLI) | payer MEDICARE, OTHER, SELFPAY ==
--- NOTE | 2023-06-30 16:07 | RAD_ITS ---
STUDY: X-RAY - RIGHT FOOT CLINICAL: Male, 72 years old. pain TECHNIQUE: 3 view(s) of the foot. COMPARISON: None. FINDINGS: Normal talus, calcaneus, and tarsal bones. Normal visualized subtalar, talonavicular, calcaneocuboid, tarsal and tarsometatarsal articulations. Normal metatarsi. 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 Normal tibial and fibular sesamoid bones. Normal interphalangeal joint of the great toe. Normal phalanges of the great toe. Normal second through fifth metatarsophalangeal joints. Normal interphalangeal joints and phalanges of the lesser toes. The soft tissue structures are unremarkable. There is no demonstrated fracture. RAD/Foot min 3 Views IMPRESSION: Degenerative changes. No acute fracture or dislocation. Electronically Signed: Berry Garcia MD at 16:45 EDT ,
== END | disposition home or self-care (01) ==
LOC: MTRAD 16:06
PROVIDERS: PCP Family Medicine; Referring Provider Physician Assistant; Visit Provider Physician Assistant
DX: R52 Pain, unspecified (principal)
CPT/HCPCS: 73630

== ENCOUNTER → 2023-07-24 | Outpatient (CLI) | payer MEDICARE, OTHER, SELFPAY | END | disposition home or self-care (01) | LOC: LABSPEC 15:43 | PROVIDERS: PCP Family Medicine; Referring Provider Physician Assistant Surgical; Visit Provider Physician Assistant Surgical | DX: N39.0 Urinary tract infection, site not specified (principal) | CPT/HCPCS: 87086 ==

== ENCOUNTER → 2023-07-27 | Outpatient (CLI) | payer MEDICARE, OTHER, SELFPAY ==
--- NOTE | 2023-07-27 07:41 | CT_ITS ---
STUDY: CT CHEST WITHOUT CONTRAST REASON FOR EXAM: Male, 72 years old. Lung Nodules. 4-5 month history of dyspnea. RADIATION DOSAGE (If Supplied By Facility): CTDIvol = ( 14.75 ) mGy, DLP = ( 1366.53 ) mGycm TECHNIQUE: Transaxial imaging was performed without the administration of intravenous contrast material. Multiplanar coronal and sagittal images were reformatted. Individualized dose optimization techniques were used for this CT. COMPARISON: Comparison is made with prior study dated February 12, 2019. FINDINGS: CHEST Stable increased markings at the lung bases with areas of confluence suggestive of scarring. The previously seen subtle areas of groundglass appearance in the right middle lobe and lower lobes has improved. No definite pulmonary nodule is seen at this time. There is no demonstrated pleural abnormality. There are calcifications of the coronary arteries. There are small lymph nodes within the mediastinum, which are normal in size and morphology most compatible with reactive lymph hyperplasia. Normal hilar regions. Normal unenhanced pulmonary arteries. There is atherosclerotic calcification of the aortic arch. There are multi-level degenerative changes of the thoracic spine. Prominent trabecular pattern in a mid dorsal vertebra suggestive of possible hemangioma. Small hiatal hernia. Increased markings in the peripancreatic region. CT/Chest without Contrast IMPRESSION: Mild increased markings at the lung bases with areas of confluence suggestive of scarring. No suspicious nodules seen. Electronically Signed: Shimon Alcazar MD at 9:49 EDT ,
--- NOTE | 2023-07-27 07:47 | CT_ITS ---
STUDY: CT ABDOMEN AND PELVIS WITHOUT CONTRAST REASON FOR EXAM: Male, 72 years old. KIDNEY CANCER RADIATION DOSAGE (If Supplied By Facility): CTDIvol = ( 14.75 ) mGy, DLP = ( 1366.53 ) mGycm TECHNIQUE: Transaxial images were obtained from the dome of the diaphragm to the symphysis pubis without oral contrast, and without intravenous contrast. Sagittal and coronal images were reconstructed. Individualized dose optimization techniques were used for this CT. COMPARISON: Comparison is made with prior study dated May 16, 2022. FINDINGS: Stable mild degree of volar interstitial scarring at the lung bases. Coronary artery calcification is seen. Normal liver. Multiple small gallstones are seen within the gallbladder lumen. Normal spleen. Normal pancreas. Normal bilateral adrenal glands. Stable 1.2 cm x 1 cm hypodense nodule in the anterior upper pole of the right kidney. The patient is status post partial nephrectomy in the anterior upper aspect of the left kidney. Stable 2.9 cm x 3.1 cm cystic nodule in the lower pole. Stable 1.3 cm x 1.6 cm hypodense nodule in the medial midportion of the left kidney. There is a small hiatal hernia. Normal small intestine. Normal colon. The appendix is visualized and appears normal. There is atherosclerotic calcification of the abdominal aorta and its major visceral branches, without a demonstrated aneurysm. Normal inferior vena cava. Normal retroperitoneum. Mild degree of diffuse bladder wall thickening. Prostatic enlargement with indentation at the bladder base. Once again, a polypoid mass is suspected the base of the bladder. Prostatic calcifications. Small bilateral inguinal hernias containing fat or prominent on the right side. Disc space narrowing and disc degeneration at the L5-S1 level. CT/Abdomen/Pelvis without Cont IMPRESSION: Stable examination. Gallstones. Electronically Signed: Shimon Alcazar MD at 14:18 EDT ,
== END | disposition home or self-care (01) ==
PROVIDERS: PCP Family Medicine; Referring Provider Internal Medicine Critical Care Medicine; Visit Provider Internal Medicine Critical Care Medicine
DX: C64.2 Malignant neoplasm of left kidney, except renal pelvis (principal); Z12.5 Encounter for screening for malignant neoplasm of prostate
CPT/HCPCS: 71250; 74176

== ENCOUNTER → 2023-08-03 | Outpatient (CLI) | payer MEDICARE, OTHER, SELFPAY ==
[2023-08-03 15:37] LABS: AST(SGOT) 18 U/L (15-37); Alanine Aminotransfer ALT/SGPT 23 U/L (16-61); Albumin, Serum 3.7 g/dL (3.2-5.0); Alkaline Phosphatase 84 U/L (45-117); Bilirubin, Direct 0.19 mg/dL (0.00-0.30); Cholesterol 182 mg/dL (200); Globulin 2.7 g/dL (2.2-4.2); High Density Lipoprotein 46 mg/dL; Protein, Total 6.4 g/dL (6.4-8.2); Triglycerides 128 mg/dL; Very Low Density Lipoprotein 26 mg/dL (5-40)
== END | disposition home or self-care (01) ==
PROVIDERS: Nurse Practitioner Gerontology; PCP Family Medicine; Referring Provider Urology; Visit Provider Urology
DX: E78.5 Hyperlipidemia, unspecified (principal)
CPT/HCPCS: 36415; 80061; 80076

== ENCOUNTER 2023-10-29 22:34 | Emergency (ER) | payer MEDICARE, OTHER, SELFPAY ==
[2023-10-29 22:35] VITALS: BP 167/91; PULSE 48; PULSE 49; RESP 16; TEMP 36.8; O2SAT 98; BMI 30.3
--- NOTE | 2023-10-29 23:16 | CT_ITS ---
EXAM: CT HEAD WITHOUT INTRAVENOUS CONTRAST CLINICAL INDICATION: headache TECHNIQUE: Multiple axial images were obtained of the head without intravenous contrast. This CT exam was performed using one or more of the following dose reduction techniques: automated exposure control, adjustment of the mA and/or kV according to patient size, and/or use of iterative reconstruction technique. RADIATION DOSE: CTDIvol = 44.99 mGy, DLP = 883.29 mGy-cm COMPARISON: 12/30/2022. FINDINGS: BRAIN AND EXTRA-AXIAL SPACES: Unremarkable. No intra- or extra-axial hemorrhage. No evidence of acute infarct. No intracranial mass or mass effect. There is preservation of the chawla/white matter interface. Posterior fossa structures are unremarkable. Ventricles are appropriate for age. No hydrocephalus. Basal cisterns are patent. BONES/JOINTS: Unremarkable. No discrete lytic or blastic abnormalities. SINUSES: Unremarkable as visualized. Clear. MASTOID AIR CELLS: Unremarkable. Clear. ORBITS: Visualized globes, extraocular muscles, optic nerves and retrobulbar fat appear unremarkable. CT/Brain/Head without Contrast IMPRESSION: No acute intracranial abnormality. Electronically Signed: Damien Khan MD at 0:38 EDT ,
[2023-10-29] MEDS: DiphenhydrAMINE 50 MG/ML Syringe 25 MG IV (23:31)
[2023-10-29] MEDS: Ketorolac 15 MG/ML Vial IV (23:31)
[2023-10-29] MEDS: Metoclopramide 10 MG/2 ML Vial IV (23:31)
[2023-10-29] MEDS: Fluorescein 1 MG STRIP 1 STRIP RIGHT EYE (23:32)
[2023-10-29] MEDS: Tetracaine 0.5% Ophthalmic Bottle 1 DRP RIGHT EYE (23:32)
[2023-10-29] MEDS: 0.9% Normal Saline (500mL Bag) 500 ML 999 ML IV (23:32)
[2023-10-29 23:35] LABS: Absolute Lymphocyte Count 1.39 X10^3/uL (0.83-4.51); Absolute Neutrophil Count 2.8 X10^3/uL (2.0-7.7); Basophil# 0.04 X10^3/uL; Basophil% 0.8 % (0-1); Eosinophil# 0.15 X10^3/uL; Eosinophils% 3.1 % (0-5); Hematocrit 36.8 % (40-54); Hemoglobin 11.8 g/dL (13.0-16.5); Lymphocyte # 1.39 X10^3/ul (0.83-4.51); Lymphocyte % 28.8 % (19-41); Mean Corp Hgb Conc 32.1 g/dL (32-36); Mean Corpuscular Hgb 30.2 pg (27.0-32.0); Mean Corpuscular Volume 94.1 fL (80-94); Mean Platelet Vol. 9.4 fl (6.2-12.0); Monocyte# 0.41 X10^3/uL; Monocyte% 8.5 % (0-10); NRBC Flagged by Analyzer 0 % (0-5); Neutrophil # 2.82 X10^3/uL (2.7-7.7); Neutrophil % 58.6 % (47-70); Platelet Count 143 K/mm3 (150-450); RBC Distribution Width CV 14.6 % (11.6-14.6); RBC Distribution Width SD 49.8 fl (35.1-43.9); Red Blood Count 3.91 M/mm3 (4.6-6.2); White Blood Count 4.8 K/mm3 (4.4-11.0)
[2023-10-29 23:58] LABS: Anion Gap 7 (5-15); BUN 13 mg/dL (7-18); BUN/Creat Ratio 12.9 RATIO (10-20); CRP < 2.90 mg/L (0.0-3.0); Calcium,Total 9.2 mg/dL (8.5-10.1); Chloride 106 mmol/L (98-107); Creatinine, Serum 1.01 mg/dL (0.70-1.30); EST Glomerular Filtration Rate 77 mL/min (>60); Est Glom Filt Rate - Afr Amer 93 mL/min (>60); Estimated Creatinine Clearance 71.13 ml/min; Glucose 96 mg/dL (74-106); Potassium 3.8 mmol/L (3.5-5.1); Sodium Level 141 mmol/L (136-145)
[2023-10-30 00:35] VITALS: BP 125/73; PULSE 50; RESP 17; O2SAT 99
--- NOTE | 2023-10-30 01:18 | EX.ED.DYSGE1 ---
HPI History of Present Illness Chief Complaint: Headache Informant: patient and spouse/S.O. Narrative Narrative: Patient is a 73-year-old male with past medical history of migraine headache on Ubrelvy as well as hypertension and hyperlipidemia. He states that his headaches typically have a aura and also neurologic symptoms. He states this headache starts off behind the right eye and radiates to the eye but there is no change in vision nor was or any type of aura. He denies any trauma or high risk activities such as grinding metal or chipping wood but states he feels like there is something in his eye. As he took medication which normally helps with his headache and it is not improved he presents for evaluation [facility] Medical History (Updated 11/04/23 @ 07:[address] Roman Odonnell, ) Right foot strain Barretts esophagus (01/05/23) Cancer Alcohol use Dietary restriction History of hiatal hernia History of irregular heartbeat History of renal cell cancer Spinal stenosis History of renal disease Wears hearing aid Wears glasses Gout Migraine headache Difficulty swallowing Non-smoker Chronic cough Seasonal allergies Personal history of supraventricular tachycardia History of stress test Cardiology follow-up encounter Obesity Hyperuricemia Eczema Hyperlipidemia Essential hypertension Fracture of right patella Fracture of right radius Osteoporosis Fracture of radial head, left, closed Closed left hip fracture GERD (gastroesophageal reflux disease) Home Medications ?Medication ?Instructions ?Recorded ?Last Taken ?Type hydrochlorothiazide 12.5 mg capsule 12.5 mg PO BID 02/20/21 Unknown History lisinopril 20 mg tablet 20 mg PO BID HTN 02/20/21 06/12/21 History ubrogepant 100 mg tablet (Ubrelvy) 100 mg PO ONCE PRN migraines 02/20/21 Unknown History azelastine 137 mcg (0.1 %) nasal 1 spray intranasal BID PRN 02/24/23 Unknown History spray Allergies famotidine 40 mg tablet 20 mg PO BID GERD 02/24/23 Unknown History allopurinol 100 mg tablet 200 mg PO DAILY PRN Gout 05/01/23 Unknown History diltiazem HCl 120 mg 120 mg PO BID 08/14/23 Unknown History capsule,extended release 24 hr, controlled (DILT-XR) fluconazole 100 mg tablet 100 mg PO QDAY 08/14/23 Unknown History Allergy/AdvReac Type Severity Reaction Status Date / Time Egg Derived Allergy Severe Food Verified 10/29/23 22:40 Allergy febuxostat (From Uloric) Allergy Intermediate Other Verified 10/29/23 22:40 Penicillins Allergy Anaphylaxis Verified 10/29/23 22:40 omeprazole AdvReac Intermediate Rash Verified 10/29/23 22:40 pantoprazole (From Protonix) AdvReac Intermediate Hives Verified 10/29/23 22:40 Corticosteroids AdvReac Hypertensio Verified 10/29/23 22:40 (Glucocorticoids) (steroids) n Milk Containing Products AdvReac Diarrhea Verified 10/29/23 22:40 (Dairy) (Milk Containing Products) Family History Mother Diabetes Dementia Heart disease tachycardia Father Heart disease Leukemia Surgical History History of repair of hiatal hernia History of esophagogastroduodenoscopy (EGD) History of colonoscopy History of partial nephrectomy History of mandibular surgery History of hip surgery Social History household members: spouse current occupational status: retired Smoking Status: Never smoker alcohol intake: current alcohol intake frequency: a few times a week Alcohol type: beer substance use type: does not use diet: lactose free caffeine: No what type of physical activity do you participate in: walking and bicycling frequency: 3-4 times per week ROS ROS ED Constitutional Constitutional ED: Denies chills or fever(s) Eyes Eyes: Reports other Details: Positive right eye pain ; Denies blurry vision, change in vision or diplopia ENT ENT ED: Reports rhinorrhea; Denies ear pain or sore throat Cardiovascular Cardiovascular: Denies chest pain Respiratory/Chest Respiratory/Chest: Denies cough or dyspnea Gastrointestinal Gastrointestinal: Denies abdominal pain, diarrhea, nausea or vomiting Genitourinary Genitourinary ED: Denies dysuria Musculoskeletal Musculoskeletal: Denies myalgias or neck pain Integumentary Denies rash Neurologic Neurologic: Reports headache(s); Denies paresthesias or weakness Hematologic/Lymphatic Hematologic/Lymphatic: Denies easy bleeding or easy bruising EXAM Physical Exam Const Vital Signs: 10/29/23 22:35 10/29/23 22:35 10/30/23 00:35 Temperature 98.2 F Temperature Source Temporal Pulse Rate 48 L 49 L 50 L Respiratory Rate 16 17 Blood Pressure 167/91 H 125/73 H Blood Pressure Mean 116 90 Pulse Ox 98 99 Oxygen Delivery Method Room Air Room Air Positive well nourished and well developed General Appearance ED: well developed; Negative for pallor HEENT Reports moist mucous membranes HEENT Narrative: Normocephalic atraumatic No signs of infection noted in the posterior pharynx There is mild cobblestoning noted in the posterior pharynx and nasal mucosa is hyperemic Eyes PERRL and EOMs intact bilaterally Eyes Narrative: Pupils are equal reactive to light and accommodation extraocular muscles are intact Upper lid was everted there is no retained foreign body Vargas lamp exam reveals no uptake of dye. Negative August sign Moisés-Pen testing shows intraocular pressure to be 16 in the right eye. No pain with eye motion There is mild tenderness with palpation along the temporal portion of the scalp General Eye ED: Negative for pale conjunctiva or scleral icterus Neck supple Neck Narrative: No nuchal rigidity or meningeal signs Resp normal respiratory effort and clear to auscultation bilaterally Cardio regular rate and regular rhythm GI normal to inspection, nondistended, normoactive bowel sounds, non-tender, non-distended and no masses Auscultation: normoactive bowel sounds Palpation: soft Extremity normal to inspection Neuro oriented x3, CN's II-XII intact bilaterally and no sensory deficits noted Neuro Narrative: Cranial nerves II through XII are grossly intact there are no focal neurologic deficit No pronator drift no dysmetria no truncal ataxia NIH stroke scale score of 0 GCS of 15 Sensorium / Orientation: alert Motor Exam: strength 5/5 throughout Psych mental status grossly normal Skin no rashes or lesions noted General Skin Exam: Negative for jaundice or pallor MDM MDM MDM Narrative Medical decision making narrative: Patient arrived to the ER hypertensive but has a past medical history of this. Neurologic exam is normal. Different diagnosis for his pain is potential atypical migraine versus temporal arteritis versus corneal abrasion versus retained foreign body versus sinus pressure/infection versus viral infection such as COVID. There is also concern for potential spontaneous brain bleed or mass. There is also concern for potential glaucoma/acute angle-closure. Therefore patient underwent basic labs which showed no clinically significant findings head CT revealed no sign of bleed or mass and testing with Moisés-Pen showed no sign of increased intraocular pressure. Patient also had a viral swab obtained which is negative for COVID influenza or RSV. Patient was given IV hydration as well as Toradol Benadryl and Reglan and had improvement of his headache and on reevaluation and neurologic exam remained normal. Therefore at this time with improvement of symptoms and overall negative workup this is most likely an atypical migraine and as he is not having neurologic findings and symptoms have improved he is otherwise safe for discharge History & Record Review Discussion w/independent historian: Patient and Significant other Lab Data Attestation: I reviewed the patient's lab results. Labs: Laboratory Results - last 24 hr 10/29/23 23:22 WBC 4.8 RBC 3.91 L Hgb 11.8 L Hct 36.8 L MCV 94.1 H MCH 30.2 MCHC 32.1 RDW Std Deviation 49.8 H RDW Coeff of Tin 14.6 Plt Count 143 L MPV 9.4 Immature Gran % (Auto) 0.200 Neut % (Auto) 58.6 Lymph % (Auto) 28.8 [place] % (Auto) 8.5 Eos % (Auto) 3.1 Baso % (Auto) 0.8 Absolute Neuts (auto) 2.8 Absolute Lymphs (auto) 1.39 Nucleated RBC % 0 ESR Cancelled Sodium 141 Potassium 3.8 Chloride 106 Carbon Dioxide 28.0 Anion Gap 7 BUN 13 Creatinine 1.01 Estim Creat Clear Calc 71.13 Est GFR (MDRD) Af Amer 93 Est GFR (MDRD) Non-Af 77 BUN/Creatinine Ratio 12.9 Glucose 96 Calcium 9.2 C-React Prot Ext Range < 2.90 Radiography Diagnostic Testing: Clinical Impression(s) from Imaging Studies Brain CT 10/29/23 23:16 IMPRESSION: No acute intracranial abnormality. Electronically Signed: Damien Khan MD at 0:38 EDT , Discharge Plan Triage Chief Complaint: Headache ED Provider: Roman Odonnell Dx/Rx/DC Orders Clinical Impression: Cephalgia, Essential hypertension, Hyperlipidemia Instructions: ED Headache Unspecified Prescriptions: No Action hydrochlorothiazide 12.5 mg capsule 12.5 mg PO BID Patient Comments: TAKES 2 CAPSULES IN MORNING PER INSTRUCTIONS lisinopril 20 mg tablet 20 mg PO BID Patient Comments: TAKE 1 TABLET BY MOUTH TWICE DAILY Ubrelvy 100 mg tablet 100 mg PO ONCE PRN (Reason: migraines) Patient Comments: Take 1 (one) Tablet PIERRE once daily as needed for migraine fluconazole 100 mg tablet 100 mg PO QDAY azelastine 137 mcg (0.1 %) aerosol,spray 1 spray intranasal BID PRN (Reason: Allergies) Rx Instructions: administer into each nostril 1-2 sprays as needed diltiazem HCl [DILT-XR] 120 mg capsule,ext.rel 24h degradable 120 mg PO BID famotidine 40 mg tablet 20 mg PO BID allopurinol 100 mg tablet 200 mg PO DAILY PRN (Reason: Gout) Primary Care Provider: Arnaldo Casiano Referrals: Arnaldo Casiano MD [Primary Care Provider] - Activity Restrictions/Additional Instructions: Please follow-up with your family doctor for repeat evaluation and return to the ER should you have any further concerns or worsening of symptoms Print Language: Kiswahili Disposition Disposition: Home, Self Care Discharge Date/Time: 10/30/23 01:54
[2023-10-30] MEDS: DiphenhydrAMINE 50 MG/ML Syringe 25 MG IV (01:49)
== END 2023-10-30 01:54 | disposition home or self-care (01) ==
PROVIDERS: Emergency Provider Emergency Medicine; PCP Family Medicine; Visit Provider Emergency Medicine
DX: R51.9 Headache, unspecified (principal); I10 Essential (primary) hypertension; E78.5 Hyperlipidemia, unspecified; Z79.899 Other long term (current) drug therapy; K21.9 Gastro-esophageal reflux disease without esophagitis; M10.9 Gout, unspecified; Z90.5 Acquired absence of kidney
CPT/HCPCS: 70450; 80048; 85025; 86140; 87631; 96361; 96374; 96375; 96376; 99283; J7030; A4216

== ENCOUNTER → 2023-11-23 | Outpatient (CLI) | payer MEDICARE, OTHER, SELFPAY ==
--- NOTE | 2023-11-23 10:00 | RAD_ITS ---
INDICATION: distal L femur lesion/update on outside bone scan March 2023. EXAMINATION/TECHNIQUE: X-RAY - LEFT XR Femur Min 2 Views COMPARISON: 01/14/2023 left femur radiographs.. Whole body bone scan 03/20/2023. FINDINGS: 4 views of the left femur. BONES: Intramedullary radha in place with hip retention screw. No obvious hardware complication. Otherwise, anatomic alignment without acute fracture or subluxation. No concerning bony lesion or abnormal sclerosis to suggest lesion. JOINTS: No significant degenerative change. SOFT TISSUES: Dense atherosclerotic vascular calcifications. RAD/Femur Min 2 Views IMPRESSION: No acute osseous abnormality of the left femur. No bony lesion appreciated within the distal femur with bone scan changes likely post procedure. Electronically Signed: Rory Sandhu MD at 5:07 EDT ,
== END | disposition home or self-care (01) ==
LOC: MTRAD 09:58
PROVIDERS: PCP Family Medicine; Referring Provider Family Medicine; Visit Provider Family Medicine
DX: M89.9 Disorder of bone, unspecified (principal)
CPT/HCPCS: 73552

== ENCOUNTER 2024-01-11 11:30 | Outpatient (RCR) | payer MEDICARE, OTHER, SELFPAY | END 2024-01-11 19:00 | disposition home or self-care (01) | LOC: PT 11:30 | PROVIDERS: PCP Family Medicine; Referring Provider Family Medicine; Visit Provider Family Medicine | DX: G44.86 Cervicogenic headache (principal) | CPT/HCPCS: 97110; 97140; 97161; 97530 ==

== ENCOUNTER 2024-01-14 07:26 | Emergency (ER) | payer MEDICARE, OTHER, SELFPAY ==
[2024-01-14 07:30] VITALS: BP 133/71; PULSE 64; RESP 17; TEMP 36.6; O2SAT 94; BMI 30.7
--- NOTE | 2024-01-14 07:41 | RAD_ITS ---
STUDY: X-RAY CHEST REASON FOR EXAM: Male, 73 years old. Cough, left-sided pleuritic chest pain TECHNIQUE: PA and lateral views of the chest. COMPARISON: 05/01/2023 FINDINGS: EKG leads overlie the chest Lungs are hyperexpanded with chronic interstitial changes, no superimposed acute pulmonary process. Normal size heart. Normal mediastinum and byron. Normal visualized pulmonary arteries. There is atherosclerotic calcification of the aortic arch with tortuosity. There are diffuse degenerative changes of the visualized thoracic spine. Normal visualized ribs, clavicles, and shoulders. There is no demonstrated abnormality of the visualized soft tissue structures of the upper abdomen. RAD/Chest PA and Lateral IMPRESSION: Hyperexpanded lungs with chronic interstitial changes, no superimposed acute pulmonary process Electronically Signed: Rosales Peters MD at 8:10 EST ,
--- NOTE | 2024-01-14 07:45 | EX.ED.DYSGE1 ---
HPI History of Present Illness Chief Complaint: Chest Pain Detail of Chief Complaint: Left-sided pleuritic chest point with shortness of breath Informant: patient Onset/Context/Timing Onset: Today (1599) Context: Sudden Onset Timing: Continuous Quality: Pain left side of chest near the superior aspect of the left pectoralis paige Location: Left pectoralis muscle and left arm Current Severity: Mild Maximum Severity: Moderate Worsened by: Breathing Relieved by: Nothing Associated Symptoms Associated Symptoms: Shortness of breath Narrative Narrative: Patient is a 73-year-old male. He has history of hypertension, hypercholesterolemia and gout. He presents with left-sided chest pain near the superior aspect of the left pectoralis muscle that has been constant since 1599. Onset at rest. He does report increased pain with breathing. He also complains of discomfort proximal left arm. He does report shortness of breath. He states this has happened in the past and no etiology has been found. He had a long distance trip to [place] this past Thanksgiving. He denies leg pain, swelling discoloration. He denies history of VTE. He denies fever, chills night sweats. The cough is productive of clear-colored sputum. He reports this is a chronic issue. He states he is never smoked. He is status post hiatal hernia surgery. He states since that surgery he has lost approximately 70 pounds and is not on his much blood pressure medication. He denies orthopnea or PND. He does report increased shortness of breath with activity. Prior similar symptoms: Yes Recent Illness/Hospitalization: No PFSH PFS Medical History Right foot strain Barretts esophagus (01/05/23) Cancer Alcohol use Dietary restriction History of hiatal hernia History of irregular heartbeat History of renal cell cancer Spinal stenosis History of renal disease Wears hearing aid Wears glasses Gout Migraine headache Difficulty swallowing Non-smoker Chronic cough Seasonal allergies Personal history of supraventricular tachycardia History of stress test Cardiology follow-up encounter Obesity Hyperuricemia Eczema Hyperlipidemia Essential hypertension Fracture of right patella Fracture of right radius Osteoporosis Fracture of radial head, left, closed Closed left hip fracture GERD (gastroesophageal reflux disease) Home Medications ?Medication ?Instructions ?Recorded ?Last Taken ?Type lisinopril 20 mg tablet 20 mg PO BID HTN 02/20/21 06/12/21 History ubrogepant 100 mg tablet (Ubrelvy) 100 mg PO ONCE PRN migraines 02/20/21 Unknown History azelastine 137 mcg (0.1 %) nasal 1 spray intranasal BID PRN 02/24/23 Unknown History spray Allergies allopurinol 100 mg tablet 200 mg PO DAILY PRN Gout 05/01/23 Unknown History diltiazem HCl 120 mg 120 mg PO BID 08/14/23 Unknown History capsule,extended release 24 hr, controlled (DILT-XR) Allergy/AdvReac Type Severity Reaction Status Date / Time Egg Derived Allergy Severe Food Verified 01/14/24 07:27 Allergy febuxostat (From Uloric) Allergy Intermediate Other Verified 01/14/24 07:27 Penicillins Allergy Anaphylaxis Verified 01/14/24 07:27 omeprazole AdvReac Intermediate Rash Verified 01/14/24 07:27 pantoprazole (From Protonix) AdvReac Intermediate Hives Verified 01/14/24 07:27 Corticosteroids AdvReac Hypertensio Verified 01/14/24 07:27 (Glucocorticoids) (steroids) n Milk Containing Products AdvReac Diarrhea Verified 01/14/24 07:27 (Dairy) (Milk Containing Products) Family History Mother Diabetes Dementia Heart disease tachycardia Father Heart disease Leukemia Surgical History History of repair of hiatal hernia History of esophagogastroduodenoscopy (EGD) History of colonoscopy History of partial nephrectomy History of mandibular surgery History of hip surgery Social History household members: spouse current occupational status: retired Smoking Status: Never smoker alcohol intake: current alcohol intake frequency: a few times a week Alcohol type: beer substance use type: does not use diet: lactose free caffeine: No what type of physical activity do you participate in: walking and bicycling frequency: 3-4 times per week ROS ROS ED Constitutional Constitutional ED: Denies chills, fever(s), subjective, sweats or weight loss Eyes Eyes: Denies blurry vision or change in vision ENT ENT ED: Denies ear pain, rhinorrhea or sore throat Cardiovascular Cardiovascular: Reports chest pain; Denies orthopnea, palpitations, paroxysmal nocturnal dyspnea or racing heartbeat Respiratory/Chest Respiratory/Chest: Reports cough and sputum; Denies orthopnea or paroxysmal nocturnal dyspnea Gastrointestinal Gastrointestinal: Denies abdominal pain, diarrhea, melena, nausea or vomiting Genitourinary Genitourinary ED: Denies dysuria, hematuria or urinary frequency Musculoskeletal Musculoskeletal: Denies arthralgias, back pain, myalgias or neck pain Integumentary Denies rash Neurologic Neurologic: Denies headache(s) Hematologic/Lymphatic Hematologic/Lymphatic: Reports systems reviewed and no addt'l complaints, except as documented EXAM Physical Exam Const Vital Signs: 01/14/24 07:30 01/14/24 07:30 Temperature 97.9 F Temperature Source Oral Pulse Rate 64 Respiratory Rate 17 Respiratory Effort Normal Non-Labored Blood Pressure 133/71 H Blood Pressure Mean 91 Pulse Ox 94 Oxygen Delivery Method Room Air Positive well nourished and well developed Constitutional Narrative: Vital signs are marked for slight elevation of blood pressure. General Appearance ED: well developed and NAD; Negative for pallor HEENT Reports moist mucous membranes HEENT Narrative: Head is atraumatic nose phallic. There is areas of alopecia. Nares patent. Posterior pharynx normal. Eyes PERRL and EOMs intact bilaterally General Eye ED: Negative for pale conjunctiva or scleral icterus Neck no lymphadenopathy, supple and no JVD Chest Wall inspection of chest normal and palpation of chest normal Resp normal respiratory effort and clear to auscultation bilaterally Cardio regular rate, regular rhythm, S1 normal heart sound, S2 normal heart sound and no murmurs GI normal to inspection, nondistended, normoactive bowel sounds, non-tender, non-distended and no masses; Negative for hepatosplenomegaly Palpation: soft Back/Spine no CVA tenderness Extremity Extremity Narrative: There is no asymmetry, swelling, discoloration, leg vein distention, palpable cords or tenderness along the distribution of the deep venous system. Neuro oriented x3 and CN's II-XII intact bilaterally Sensorium / Orientation: alert Psych mental status grossly normal Skin no rashes or lesions noted, no wounds and skin turgor normal General Skin Exam: elasticity normal; Negative for jaundice or pallor MDM MDM MDM Narrative Medical decision making narrative: Differential diagnosis is chest pain of unknown etiology, pleurisy, pneumonia, pulmonary embolus, cardiac is unlikely. Patient had a prehospital EKG. The EKG was normal. Rate is 70. IL interval is 172 ms. Cures duration 96 ms. QT duration 406 ms. Forman is normal. Since this was done prehospital and normal it was not repeated. Apparently nurses called the EKG/respiratory therapist for EKG. EKG is normal. Rate is 62. Parables are at 88 ms. QRS duration 100 ms. QT duration 4 and 24 ms. Forman is normal. Lab Data Attestation: I reviewed the patient's lab results. Lab results narrative: Patient is neutropenic. Differential is normal. H&H is normal. Troponin with 18 hours of pain is negative. D-dimer is normal. Electrolyte panel is unremarkable. Patient and were informed of test results he has an appointment to be seen by his primary care doctor Dr. Casiano next week. Labs: Laboratory Results - last 24 hr 01/14/24 07:13 WBC 4.3 L RBC 4.40 L Hgb 14.2 Hct 41.3 MCV 93.9 MCH 32.3 H MCHC 34.4 RDW Std Deviation 48.1 H RDW Coeff of Tin 14.0 Plt Count 157 MPV 9.3 Immature Gran % (Auto) 0.500 Neut % (Auto) 63.2 Lymph % (Auto) 23.8 [place] % (Auto) 9.2 Eos % (Auto) 2.4 Baso % (Auto) 0.9 Absolute Neuts (auto) 2.7 Absolute Lymphs (auto) 1.01 Nucleated RBC % 0 D-Dimer Quant (PE/DVT) 0.32 Sodium 141 Potassium 3.7 Chloride 108 H Carbon Dioxide 27.0 Anion Gap 6 BUN 15 Creatinine 1.07 Estim Creat Clear Calc 67.63 Est GFR (MDRD) Af Amer 87 Est GFR (MDRD) Non-Af 72 BUN/Creatinine Ratio 14.0 Glucose 105 Calcium 9.4 Troponin I High Sens 5 Radiography Chest X-Ray - ED: 2 View, Read by ED Physician, Unchanged, Normal, Heart, Lungs, Mediastinum, Bony Structures and No Acute Disease (Comparison April 2023) Diagnostic Testing: Clinical Impression(s) from Imaging Studies Chest X-Ray 01/14/24 07:41 IMPRESSION: Hyperexpanded lungs with chronic interstitial changes, no superimposed acute pulmonary process Electronically Signed: Rosales Peters MD at 8:10 EST , EKG Initial EKG: Attestation: I personally reviewed and interpreted this EKG as follows: Interpretation: Sinus Rhythm (70 and normal. Documented under the MDM portion of the EMR.) Discharge Plan Triage Chief Complaint: Chest Pain ED Provider: Rell Valentine Dx/Rx/DC Orders Clinical Impression: Left-sided chest pain, Coronary artery calcification, Chest pain, pleuritic, Elevated blood pressure reading with diagnosis of hypertension, Acute dyspnea Instructions: ED Chest Pain, Uncertain Cause Prescriptions: No Action lisinopril 20 mg tablet 20 mg PO BID Patient Comments: TAKE 1 TABLET BY MOUTH TWICE DAILY Ubrelvy 100 mg tablet 100 mg PO ONCE PRN (Reason: migraines) Patient Comments: Take 1 (one) Tablet PIERRE once daily as needed for migraine azelastine 137 mcg (0.1 %) aerosol,spray 1 spray intranasal BID PRN (Reason: Allergies) Rx Instructions: administer into each nostril 1-2 sprays as needed diltiazem HCl [DILT-XR] 120 mg capsule,ext.rel 24h degradable 120 mg PO BID allopurinol 100 mg tablet 200 mg PO DAILY PRN (Reason: Gout) Primary Care Provider: Arnaldo Casiano Referrals: Arnaldo Casiano MD [Primary Care Provider] - Keep [facility] appointment Print Language: Gambian Disposition Disposition: Home, Self Care
[2024-01-14 07:57] LABS: Absolute Lymphocyte Count 1.01 X10^3/uL (0.83-4.51); Absolute Neutrophil Count 2.7 X10^3/uL (2.0-7.7); Basophil# 0.04 X10^3/uL; Basophil% 0.9 % (0-1); Eosinophils% 2.4 % (0-5); Hematocrit 41.3 % (40-54); Hemoglobin 14.2 g/dL (13.0-16.5); Lymphocyte # 1.01 X10^3/ul (0.83-4.51); Lymphocyte % 23.8 % (19-41); Mean Corp Hgb Conc 34.4 g/dL (32-36); Mean Corpuscular Hgb 32.3 pg (27.0-32.0); Mean Corpuscular Volume 93.9 fL (80-94); Mean Platelet Vol. 9.3 fl (6.2-12.0); Monocyte# 0.39 X10^3/uL; Monocyte% 9.2 % (0-10); NRBC Flagged by Analyzer 0 % (0-5); Neutrophil # 2.69 X10^3/uL (2.7-7.7); Neutrophil % 63.2 % (47-70); Platelet Count 157 K/mm3 (150-450); RBC Distribution Width SD 48.1 fl (35.1-43.9); White Blood Count 4.3 K/mm3 (4.4-11.0)
[2024-01-14 08:07] LABS: D-Dimer Quantitative (DVT/PE) 0.32 FEU/ug/m (0.27-0.49)
[2024-01-14 08:16] LABS: Anion Gap 6 (5-15); BUN 15 mg/dL (7-18); Calcium,Total 9.4 mg/dL (8.5-10.1); Chloride 108 mmol/L (98-107); Creatinine, Serum 1.07 mg/dL (0.70-1.30); EST Glomerular Filtration Rate 72 mL/min (>60); Est Glom Filt Rate - Afr Amer 87 mL/min (>60); Estimated Creatinine Clearance 67.63 ml/min; Glucose 105 mg/dL (74-106); Potassium 3.7 mmol/L (3.5-5.1); Sodium Level 141 mmol/L (136-145); Troponin-I HS 5 pg/mL (3.0-78.0)
[2024-01-14 08:27] VITALS: BP 132/77; PULSE 71; RESP 16; O2SAT 99
[2024-01-14 08:50] VITALS: BP 132/77; PULSE 71; RESP 16; TEMP 36.6; O2SAT 99
== END 2024-01-14 08:50 | disposition home or self-care (01) ==
PROVIDERS: Emergency Provider Emergency Medicine; PCP Family Medicine; Visit Provider Emergency Medicine
DX: R07.81 Pleurodynia (principal); I25.10 Atherosclerotic heart disease of native coronary artery without angina pectoris; I10 Essential (primary) hypertension; E78.00 Pure hypercholesterolemia, unspecified; R06.00 Dyspnea, unspecified; Z85.53 Personal history of malignant neoplasm of renal pelvis; Z79.899 Other long term (current) drug therapy; G43.909 Migraine, unspecified, not intractable, without status migrainosus; M10.9 Gout, unspecified; Z90.5 Acquired absence of kidney
CPT/HCPCS: 71046; 80048; 84484; 85025; 85379; 93005; 99285

== ENCOUNTER → 2024-01-25 | Outpatient (CLI) | payer MEDICARE, OTHER, SELFPAY ==
--- NOTE | 2024-01-25 13:05 | RAD_ITS ---
STUDY: X-RAY - PELVIS AND LEFT HIP REASON FOR EXAM: Male, 73 years old. Pain in buttock, hx surgery, left TECHNIQUE: 6 views of the pelvis and left hip. COMPARISON: Left femur radiographs dated 11/23/2023. FINDINGS: There is a non-specific bowel gas pattern. Normal visualized soft tissue structures. Normal bilateral iliac wings, sacroiliac joints and visualized sacrum. Normal bilateral superior and inferior pubic rami. Normal pubic symphysis. Normal bilateral ischial tuberosities. Again seen is an intramedullary nail/radha in the left femur with left hip screws in place. There is no adjacent acute fracture. There is mild degenerative arthrosis of the hip joints bilaterally with joint space narrowing and marginal osteophyte formation. RAD/HIP, UNI W/ Pelvis 2-3 Views IMPRESSION: Stable ORIF hardware in the left femur, with no adjacent acute fracture. Mild degenerative arthrosis of the hip joints bilaterally. Electronically Signed: Tirso Cruz MD at 11:14 EST ,
== END | disposition home or self-care (01) ==
PROVIDERS: PCP Family Medicine; Referring Provider Family Medicine; Visit Provider Family Medicine
DX: M79.18 Myalgia, other site (principal)
CPT/HCPCS: 73502

== ENCOUNTER 2024-02-29 09:00 | Outpatient (RCR) | payer MEDICARE, OTHER, SELFPAY ==
--- NOTE | 2024-01-29 13:52 | HP.PTEVAL_ITS ---
Patient's Visit Information Visit Information Visit Information: MARIA LUZ COHEN II is a 73 year old M referred to Physical Therapy by Dr. Arnaldo Casiano MD with a diagnosis of L buttock pain/ hip and LBP/L leg acquired shortening. Date of Evaluation: 01/29/24 Physical Therapist: GERALD Erazo Visit Plan Frequency: 2x /Week Duration: 2 Months Plan: 2X/ week for 8 weeks for stretching of B hip flexors and piriformis and see if that helps to decrease B leg pain with walking/sitting etch. May try some flexion based repeated exercises and see if there is a stenosis component if not getting anywhere with stretching piriformis. Core stability and hip strength. Pt will bring in a new heel lift and we can tray and adjust it for his leg length from previous radha placed in L femur (per pt) with HEP. May also try E-stim and dry needling if needed. HEP: sitting piriformis stretch (knee to opp shoulder), supine leg off the bed hip flexor stretch, bridges Subjective Subjective: Pt has pain in B buttocks if he walks too much. It feels muscular and very painful. He gets a shooting pain down his L leg, in the groin and down the front of the L leg. He has a radha in his L leg and had an x-ray taken and it was good. This pain all started last week. He did not do anything different last week. His L leg is shorter. He has an orthotic in his L shoe but he does not think it is high enough. He can sleep at night. He has some pain on the L sitting in a chair. But def walking is the worst. He has been trying to walk straighter the last few days and it has been better. Stairs bother it and laying on that side bothers it. He has no N&T. Pain R buttock: Pain Intensity (Out of 10): 0 L Leg pain: Pain Intensity (Out of 10): 2 back pain: Pain Intensity (Out of 10): 0 L buttock: Pain Intensity (Out of 10): 4 Objective Objective: Gait: Walks with decrease stance time on the L LE Trunk AROM: flex 50%, ext 10%, Rot B 25%, SB B 25% Pt is able to heel and toe raise but has decreased ability to raise his toes LE MMT: R hip flex 15.7 and L 13.1 R knee ext 25.8 and L 16.8 R knee flex 11.3 and L 10.4 R hip flex 13.4 and L 6 R hip ext 12.8 and L 9.5 bridge 1/2 normal ROM Tight HS and hip flexors/Quads/Piriformis B Balance/Special Test Scores Lower Extremity Functional Score: 46 Goals Goal 1:: I HEP Goal Time Frame: 6-8 Weeks Goal 2:: Decrease B buttock pain with walking by 50% Goal Time Frame: 6-8 Weeks Goal 3:: Increase flexibility of B Quad/hip flexors and piriformis B Goal Time Frame: 6-8 Weeks Goal 4:: Increase LE strength (at the time of the eval: LE MMT: R hip flex 15.7 and L 13.1 R knee ext 25.8 and L 16.8 R knee flex 11.3 and L 10.4 R hip flex 13.4 and L 6 R hip ext 12.8 and L 9.5 bridge 1/2 normal ROM) Goal Time Frame: 6-8 Weeks Rehabilitation Potential Rehabilitation Potential: Good Anticipated Interventions Text: Thank you for the opportunity to evaluate your patient. For Medicare and Medicare HMO plans, please review the plan of care and approve it. It will need to be FAXED BACK to us at [phone] for Medicare purposes. For Medicare only, by signing this I certify the plan of care. Please let me know if there are questions or concerns regarding this plan of care. Physician Signature: Date:
--- NOTE | 2024-02-29 09:45 | HP.PTDCSUM ---
Discharge Summary D/C summary: It has been my pleasure to treat MARIA LUZ COHEN II referred by Dr. Arnaldo Casiano MD, with the diagnosis of L buttock pain/ hip and LBP/L leg acquired shortening for a total of 10 visit(s). Discharge Date: 02/29/24 Please see the following information for a summary of their discharge status. Subjective Subjective: Pt reports that he is doing better. If he does his exercises 3X/ week. Once in awhile he will get a twinge in his L hip, he will kind of feel it and it will go away. He is not sure what brings it on. He has only had the sciatica once or twice since coming here. His exercises make his back pain much better. Pain R buttock: Pain Intensity (Out of 10): 0 L Leg pain: Pain Intensity (Out of 10): 0 back pain: Pain Intensity (Out of 10): 0 L buttock: Pain Intensity (Out of 10): 0 Overall Improvement % Improvement: 100 Objective Objective/Function: LE MMT: R hip flex 15.7 and L 13.1 R knee ext 26.7 and L 25.4 R knee flex 14.1 and L 11.8 R hip ext 15.9 and L 11.8 bridge full ROM Hip flexor stretch: good length B Piriformis stretch: good length B Goals Goal 1:: I HEP Goal Progress: Goal Met Goal 2:: Decrease B buttock pain with walking by 50% Goal Progress: Goal Met Goal 3:: Increase flexibility of B Quad/hip flexors and piriformis B Goal Progress: Goal Met Goal 4:: Increase LE strength (at the time of the eval: LE MMT: R hip flex 15.7 and L 13.1 R knee ext 25.8 and L 16.8 R knee flex 11.3 and L 10.4 R hip flex 13.4 and L 6 R hip ext 12.8 and L 9.5 bridge 1/2 normal ROM) Goal Progress: Goal Met Plan Plan: DC PT to HEP D/C Information Discharge Comments: DC PT to HEP d/c sentence: If there are questions or concerns regarding this patient's physical therapy, please feel free to call me at [phone]. Thank you for the referral of this patient. Sincerely, Kathi Lux, MPT Balance/Gait/Functional tests Balance/Special Test Scores Lower Extremity Functional Score: 60 Improvement % Improvement: 100
== END 2024-02-29 19:00 | disposition home or self-care (01) ==
LOC: PT 09:00
PROVIDERS: PCP Family Medicine; Referring Provider Family Medicine; Visit Provider Family Medicine
DX: M25.552 Pain in left hip (principal); M54.50 Low back pain, unspecified; M21.70 Unequal limb length (acquired), unspecified site
CPT/HCPCS: 97110; 97161; 97530

== ENCOUNTER → 2024-03-04 | Outpatient (CLI) | payer MEDICARE, OTHER, SELFPAY ==
[2024-03-04 15:11] LABS: Hematocrit 37.2 % (40-54); Hemoglobin 12.5 g/dL (13.0-16.5); Mean Corp Hgb Conc 33.6 g/dL (32-36); Mean Corpuscular Hgb 31.5 pg (27.0-32.0); Mean Corpuscular Volume 93.7 fL (80-94); Mean Platelet Vol. 9.6 fl (6.2-12.0); Platelet Count 181 K/mm3 (150-450); RBC Distribution Width CV 13.6 % (11.6-14.6); RBC Distribution Width SD 46.8 fl (35.1-43.9); Red Blood Count 3.97 M/mm3 (4.6-6.2); White Blood Count 5.1 K/mm3 (4.4-11.0)
[2024-03-04 15:27] LABS: Erythrocyte Sedimentation Rate < 1 mm/hr (0-20)
[2024-03-04 15:54] LABS: CRP < 2.90 mg/L (0.0-3.0)
== END | disposition home or self-care (01) ==
LOC: MTLAB 12:57
PROVIDERS: PCP Family Medicine; Referring Provider Ophthalmology; Visit Provider Ophthalmology
DX: R51.9 Headache, unspecified (principal)
CPT/HCPCS: 36415; 85027; 85652; 86140

== ENCOUNTER → 2024-05-23 | Outpatient (CLI) | payer MEDICARE, OTHER, SELFPAY ==
[2024-05-23 18:32] LABS: ALB/GLOB Ratio 1.9 RATIO (0.9-2.4); AST(SGOT) 22 U/L (<=37); Alanine Aminotransfer ALT/SGPT 16 U/L (<=46); Albumin, Serum 4.1 g/dL (3.4-4.8); Alkaline Phosphatase 59 U/L (40-129); Anion Gap 11 (5-15); BUN 22 mg/dL (4-19); BUN/Creat Ratio 19.6 RATIO (10-20); CRP < 3.00 mg/L (0.0-3.0); Calcium,Total 9.1 mg/dL (7.6-11.0); Carbon Dioxide 27.2 mmol/L (21.0-32.0); Chloride 102 mmol/L (98-108); Creatinine, Serum 1.14 mg/dL (0.70-1.20); EST Glomerular Filtration Rate 68 (>60); Globulin 2.1 g/dL (2.2-4.2); Glucose 109 mg/dL (70-99); Potassium 3.8 mmol/L (3.3-5.1); Protein, Total 6.2 g/dL (5.9-8.4); Sodium Level 140 mmol/L (133-145); Total Bilirubin 0.65 mg/dL (0.00-1.30)
[2024-05-23 19:19] LABS: Vitamin D,25 Hydroxy 33.2 ng/mL (30-100)
[2024-05-23 20:11] LABS: Absolute Lymphocyte Count 1.04 X10^3/uL (0.83-4.51); Absolute Neutrophil Count 3.4 X10^3/uL (2.0-7.7); Basophil# 0.03 X10^3/uL; Basophil% 0.6 % (0-1); Eosinophil# 0.21 X10^3/uL; Hematocrit 35.9 % (40-54); Hemoglobin 12.4 g/dL (13.0-16.5); Lymphocyte # 1.04 X10^3/ul (0.83-4.51); Lymphocyte % 19.8 % (19-41); Mean Corp Hgb Conc 34.5 g/dL (32-36); Mean Corpuscular Hgb 33.3 pg (27.0-32.0); Mean Corpuscular Volume 96.5 fL (80-94); Mean Platelet Vol. 10.4 fl (6.2-12.0); Monocyte# 0.54 X10^3/uL; Monocyte% 10.3 % (0-10); NRBC Flagged by Analyzer 0 % (0-5); Neutrophil # 3.39 X10^3/uL (2.7-7.7); Neutrophil % 64.7 % (47-70); Platelet Count 196 K/mm3 (150-450); RBC Distribution Width CV 13.2 % (11.6-14.6); RBC Distribution Width SD 46.9 fl (35.1-43.9); Red Blood Count 3.72 M/mm3 (4.6-6.2); White Blood Count 5.2 K/mm3 (4.4-11.0)
[2024-05-23 20:12] LABS: Erythrocyte Sedimentation Rate 1 mm/hr (0-20)
== END | disposition home or self-care (01) ==
LOC: MTLAB 14:55
PROVIDERS: PCP Family Medicine; Referring Provider Family Medicine; Visit Provider Family Medicine
DX: M81.8 Other osteoporosis without current pathological fracture (principal); R51.9 Headache, unspecified
CPT/HCPCS: 36415; 80053; 82306; 85025; 85652; 86140

== ENCOUNTER → 2024-06-20 | Outpatient (CLI) | payer MEDICARE, OTHER, SELFPAY ==
[2024-06-20 12:52] LABS: PSA,Total - Annual Screen 0.88 ng/mL (0.02-4.00)
== END | disposition home or self-care (01) ==
PROVIDERS: PCP Family Medicine; Referring Provider Family Medicine; Visit Provider Family Medicine
DX: Z12.5 Encounter for screening for malignant neoplasm of prostate (principal)
CPT/HCPCS: 36415; 84153; G0103

== ENCOUNTER 2024-09-03 07:48 | Emergency (ER) | payer MEDICARE, OTHER, SELFPAY ==
[2024-09-03 07:49] VITALS: BP 126/79; PULSE 49; RESP 18; TEMP 36.9; O2SAT 99; BMI 31.0
--- NOTE | 2024-09-03 08:07 | EKG12_ITS ---
Test Reason : CP Blood Pressure : */* mmHG Vent. Rate : 50 BPM Atrial Rate : 50 BPM P-R Int : 192 ms QRS Dur : 96 ms QT Int : 448 ms P-R-T Axes : 43 6 22 degrees QTcB Int : 408 ms Sinus bradycardia Cannot rule out Inferior infarct , age undetermined Abnormal ECG Confirmed by MARLON ALEJO MD ([id number]), loan expeditor KAVIN GALAN ([id number]) on 09/05/2024 7:28:45 AM Referred By: CHRIS Confirmed By: MARLON ALEJO MD
--- NOTE | 2024-09-03 08:08 | ED.VIS.CHEST ---
HPI History of Present Illness Chief Complaint: Chest Pain Informant: patient Narrative Narrative: Patient is a 73-year-old male with history of SVT, Anthony's esophagus, GERD and obstructive sleep apnea as well as hyperlipidemia presenting for chest discomfort. Patient states that he woke up at around 5 AM this morning. States it is on the left side of his chest and he has some numbness going down his left arm. States it is worse with some movements. Has had symptoms like this before and states it is usually not his heart. Denies any acute shortness of breath but states he always has a little bit of shortness of breath associate with his Anthony's. Denies any recent leg swelling. Does note that yesterday he is concerned an episode of heat exhaustion or heatstroke. States he was out mowing the lawn (a self-propelled walking mower) and was wearing headphones as well as hat. He states is very hot out and he feels like he got overheated. He came inside and was profusely sweating for about an hour. He fell asleep. He states he had an episode of cramping lower abdominal pain and diarrhea. He does not recall if there is any blood in his stool (states he did not look). Had some nausea but no vomiting. The symptoms have since resolved. His states that he might of had streaks of stroke but he did not actually think about it and that is why did not come in yesterday. He is also concerned that his SVT could be acting up. He notes he has been feeling a little off lately but no other specific complaints. Has not had any aspirin today. Denies any swelling of his legs. Denies any history of coronary artery disease, stenting or cardiac catheterization. States his last tress test was about 2 years ago and he states was normal. [facility] Medical History Right foot strain Barretts esophagus (01/05/23) Cancer Alcohol use Dietary restriction History of hiatal hernia History of irregular heartbeat History of renal cell cancer Spinal stenosis History of renal disease Wears hearing aid Wears glasses Gout Migraine headache Difficulty swallowing Non-smoker Chronic cough Seasonal allergies Personal history of supraventricular tachycardia History of stress test Cardiology follow-up encounter Obesity Hyperuricemia Eczema Hyperlipidemia Essential hypertension Fracture of right patella Fracture of right radius Osteoporosis Fracture of radial head, left, closed Closed left hip fracture GERD (gastroesophageal reflux disease) Home Medications Medication Instructions Recorded Last Taken Type lisinopril 20 mg tablet 20 mg PO BID HTN 02/20/21 06/12/21 History diltiazem HCl 120 mg 120 mg PO BID 08/14/23 Unknown History capsule,extended release 24 hr, controlled (DILT-XR) indapamide 1.25 mg tablet 1.25 mg PO QAM 08/19/24 Unknown History Allergy/AdvReac Type Severity Reaction Status Date / Time Egg Derived Allergy Severe Food Verified 09/03/24 07:53 Allergy febuxostat (From Uloric) Allergy Intermediate Other Verified 09/03/24 07:53 Penicillins Allergy Anaphylaxis Verified 09/03/24 07:53 omeprazole AdvReac Intermediate Rash Verified 09/03/24 07:53 pantoprazole (From Protonix) AdvReac Intermediate Hives Verified 09/03/24 07:53 Corticosteroids AdvReac Hypertensio Verified 09/03/24 07:53 (Glucocorticoids) (steroids) n Milk Containing Products AdvReac Diarrhea Verified 09/03/24 07:53 (Dairy) (Milk Containing Products) Family History Mother Diabetes Dementia Heart disease tachycardia Father Heart disease Leukemia Surgical History History of repair of hiatal hernia History of esophagogastroduodenoscopy (EGD) History of colonoscopy History of partial nephrectomy History of mandibular surgery History of hip surgery Social History household members: spouse current occupational status: retired Smoking Status: Never smoker alcohol intake: current alcohol intake frequency: a few times a week Alcohol type: beer substance use type: does not use diet: lactose free caffeine: No what type of physical activity do you participate in: walking and bicycling frequency: 3-4 times per week ROS ROS ED Constitutional Constitutional ED: Reports sweats; Denies chills or fever(s) ENT ENT ED: Denies sore throat Cardiovascular Cardiovascular: Reports as per HPI and chest pain; Denies palpitations Respiratory/Chest Respiratory/Chest: Reports dyspnea; Denies cough Gastrointestinal Gastrointestinal: Reports abdominal pain, diarrhea and nausea; Denies vomiting Musculoskeletal Musculoskeletal: Denies arthralgias or myalgias Neurologic Neurologic: Reports paresthesias RUE Psychiatric Psychiatric: Denies anxiety Hematologic/Lymphatic Hematologic/Lymphatic: Denies easy bleeding or easy bruising EXAM Physical Exam Const Vital Signs: 09/03/24 07:49 09/03/24 08:07 09/03/24 08:49 Temperature 98.4 F Temperature Source Oral Pulse Rate 49 L 41 L Respiratory Rate 18 19 H Blood Pressure 126/79 H 109/67 Blood Pressure Mean 94 81 Pulse Ox 99 97 Oxygen Delivery Method Room Air Room Air Room Air 09/03/24 09:00 09/03/24 10:00 09/03/24 11:00 Temperature Temperature Source Pulse Rate 48 L 48 L 46 L Respiratory Rate 19 H 18 18 Blood Pressure 111/69 109/65 109/68 Blood Pressure Mean 83 79 81 Pulse Ox 98 99 100 Oxygen Delivery Method Room Air Room Air Room Air Positive well nourished and well developed General Appearance ED: well developed and NAD; Negative for pallor HEENT HEENT Narrative: Mildly tacky mucosal membranes normocephalic and atraumatic Eyes PERRL Neck supple and no JVD Chest Wall inspection of chest normal and palpation of chest normal Chest Narrative: No significant reproducibility of chest pain with palpation of the chest. No chest wall crepitus Resp normal respiratory effort and clear to auscultation bilaterally Cardio regular rate, regular rhythm and no murmurs Cardio Narrative: 2+ radial and PT pulses bilaterally GI normal to inspection, nondistended, normoactive bowel sounds, soft to palpation and non-tender Extremity normal to inspection General Extremety ED: Negative for edema General Extremity: Negative for edema Neuro oriented x3 Sensorium / Orientation: awake and alert Motor Exam: Negative for general weakness Psych mental status grossly normal Skin no rashes or lesions noted and no wounds General Skin Exam: Negative for pallor Heart Score History: Slightly/Non-Suspicious ECG: Normal Age: >/= 65 years Risk Factors: 1 or 2 Risk Factors Troponin: </= Normal Limit Score: 3 MDM MDM MDM Narrative Medical decision making narrative: Patient is evaluated for an episode of waves concern for heatstroke yesterday and chest pain today. Patient peers nontoxic in no acute distress. Vital signs significant for mild bradycardia however patient is on diltiazem at baseline. Differential includes ACS, muscle skeletal chest pain/atypical chest pain, pneumonia, pneumothorax, rhabdomyolysis, dehydration and electrolyte abnormality. His abdomen is currently soft and nontender his lower suspicion for intra-abdominal process such as diverticulitis. He is currently has a normal temperature so low suspicion for hyperthermia at this time. Will obtain workup including troponins, CBC, BMP as well as CPK. EKG shows sinus bradycardia with no acute ischemia. Patient given IV fluids and aspirin in the emergency room Patient reevaluated. States he feels better after fluids.-See troponin stable at 18 and 16. Low suspicion for ACS. Will be discharged home to follow-up with his primary care doctor. Remains hemodynamically stable in the emergency room. Does have some resting bradycardia which he is asymptomatic with and I suspect his chronic release but she is on diltiazem. Given return precautions. Discharged home in stable condition Lab Data Attestation: I reviewed the patient's lab results. Labs: Laboratory Results - last 24 hr 09/03/24 09/03/24 08:03 10:15 WBC 5.3 RBC 4.01 L Hgb 13.0 Hct 37.5 L MCV 93.5 MCH 32.4 H MCHC 34.7 RDW Std Deviation 46.7 H RDW Coeff of Tin 13.7 Plt Count 182 MPV 9.5 Immature Gran % (Auto) 0.400 Neut % (Auto) 65.1 Lymph % (Auto) 21.4 [place] % (Auto) 10.1 H Eos % (Auto) 2.4 Baso % (Auto) 0.6 Absolute Neuts (auto) 3.5 Absolute Lymphs (auto) 1.14 Nucleated RBC % 0 Sodium 139 Potassium 4.1 Chloride 102 Carbon Dioxide 24.2 Anion Gap 13 BUN 15 Creatinine 1.08 Estim Creat Clear Calc 67.25 Est GFR (MDRD) Non-Af 72 BUN/Creatinine Ratio 13.8 Glucose 120 H Calcium 9.7 Magnesium 2.3 H Total Creatine Kinase 96 Troponin T High Sens 18 Troponin T Hi Sens 2 Hr 16 Radiography Chest X-Ray - ED: 2 View, Read by ED Physician, Read by Radiologist and No Acute Disease Diagnostic Testing: Clinical Impression(s) from Imaging Studies Chest X-Ray 09/03/24 08:15 IMPRESSION: No acute cardiopulmonary abnormalities. Reading Location: [facility] Rhythm Strip Rhythm Strip: Sinus Rhythm Rate: 50 Ectopy: None EKG Initial EKG: Attestation: I personally reviewed and interpreted this EKG as follows: Interpretation: Sinus Bradycardia Comments: Sinus bradycardia at a rate of 50 bpm Normal axis Normal intervals Normal ST segments Discharge Plan Triage Chief Complaint: Chest Pain ED Provider: Latonia Petersen Dx/Rx/DC Orders Clinical Impression: Chest pain, Bradycardia Instructions: ED Chest Pain, Uncertain Cause Prescriptions: No Action lisinopril 20 mg tablet 20 mg PO BID Patient Comments: TAKE 1 TABLET BY MOUTH TWICE DAILY indapamide 1.25 mg tablet 1.25 mg PO QAM diltiazem HCl [DILT-XR] 120 mg capsule,ext.rel 24h degradable 120 mg PO BID Primary Care Provider: Arnaldo Casiano Referrals: Arnaldo Casiano MD [Primary Care Provider] - Activity Restrictions/Additional Instructions: Your workup today was very reassuring. Does not appear to be any acute cardiac process going on. Please follow with your family doctor. They might want to repeat a stress test. Print Language: Gambian Disposition Disposition: Home, Self Care
--- NOTE | 2024-09-03 08:15 | RAD_ITS ---
PROCEDURE: CHEST PA AND LATERAL 09/03/2024 REASON FOR EXAM: CHEST PAIN TECHNIQUE: CHEST PA AND LATERAL COMPARISON: 01/14/2024. FINDINGS: The heart is normal in size. The lungs are hyperexpanded with probable mild chronic interstitial changes. No acute osseous abnormalities. RAD/Chest PA and Lateral IMPRESSION: No acute cardiopulmonary abnormalities. Reading Location: [id number]
[2024-09-03 08:20] LABS: Hematocrit 37.5 % (40-54); Hemoglobin 13.0 g/dL (13.0-16.5); Immature Granulocytes Count 0.020 X10^3/uL (0.0-0.0); Mean Corp Hgb Conc 34.7 g/dL (32-36); Mean Corpuscular Volume 93.5 fL (80-94); Mean Platelet Vol. 9.5 fl (6.2-12.0); NRBC Flagged by Analyzer 0 % (0-5); Platelet Count 182 K/mm3 (150-450); RBC Distribution Width CV 13.7 % (11.6-14.6); RBC Distribution Width SD 46.7 fl (35.1-43.9); Red Blood Count 4.01 M/mm3 (4.6-6.2); White Blood Count 5.3 K/mm3 (4.4-11.0)
[2024-09-03] MEDS: 0.9% Normal Saline (1000mL) 1,000 ML 999 ML IV (08:22)
--- OUTSIDE RECORDS SUMMARY | 2024-09-03 08:37 | XMS RPT_ITS | CCD ---
Author Organization [facility] Care Team Providers Care Budget Controller Name Role Phone Alexia Richardson MD Unavailable Dr. Ana Casiano Primary Care Provider Dr. Ana Casiano Referring Provider [phone] Dr. Dwayne Klein Attending Provider Dr. Dwayne Klein Referring Provider Dr. Dwayne Klein Other Provider Dr. Eduardo Wilhelm Admit Provider Dr. Eduardo Wilhelm Referring Provider Dr. Eduardo Wilhelm Other Provider Dr. Raul Eddy Attending Provider Dr. Raul Eddy Other Provider Dr. Jack Yepez Attending Provider Dr. Jack Yepez Other Provider Dr. Ana Casiano Primary Care Provider [phone] Dwayne Klein Attending Provider Dr. Raul Eddy Referring Provider Dr. Ana Casiano Primary Care Provider [phone] Dwayne Klein Attending Provider Dr. Ana Casiano Primary Care Provider [phone] Ana Casiano Referring Provider DEEP Danielson Attending Provider Dr. Ana Casiano Primary Care Provider Dr. Ana Casiano Referring Provider 1([facility])[phone] DEEP Danielson Attending Provider Abdon STRICKLAND, KAVONC Yamilet Attending Provider Dr. Dwayne Klein Attending Provider 1([facility])- 00 Dr. Ana Casiano Primary Care Provider 1([facility])[phone] Dr. Ana Casiano Referring Provider 1([facility])[phone] Abdon STRICKLAND, MARCO A-C Yamilet Attending Provider Dr. Dwayne Klein Attending Provider 1([facility]) 00 Dr. Ana Casiano Primary Care Provider 1([facility])[phone] Dr. Ana Casiano Referring Provider 1([facility])[phone] Abdon STRICKLAND, MARCO A-C Yamilet Attending Provider Dr. Ana Casiano Primary Care Provider 1([facility])[phone] Dr. Ana Casiano Referring Provider 1([facility])[phone] Kaiden Gill Attending Provider 1([facility]) 66 DEEP Ramirez Attending Provider 1([facility])[phone] DEEP Danielson Attending Provider 1([facility])[phone] Dr. Ana Casiano Primary Care Provider 1([facility])[phone] Dr. Ana Casiano Referring Provider 1([facility])[phone] Kaiden Gill Attending Provider 1([facility]) [phone] DEEP Ramirez Attending Provider 1([facility])[phone] DEEP Danielson Attending Provider 1([facility])[phone] Abdon STRICKLAND, BOTTOM IRONER-C Yamilet Attending Provider Dr. Kaiden Gill Other Provider 1([facility])-[phone] Joelle BOTTOM IRONER, BOTTOM IRONER-C Richie Malik Attending Provider 1([facility])[phone] Dr. Dwayne Klein Attending Provider 1([facility])-[phone] Abdon BOTTOM IRONER, BOTTOM IRONER-C Yamilet Referring Provider Dr. Ana Casiano Primary Care Provider Dr. Ana Casiano Referring Provider 1([facility])[phone] Jairo, Dr. Richey Attending Provider Dr. Cristiano Newman Attending Provider 1([facility])[phone] Oh ACOSTA, Ana A Primary Care Provider 1([facility])[phone] Dwayne Klein MD Unavailable Dr. Ana Casiano Primary Care Provider [phone] Dr. Ana Casiano Referring Provider Abdon BOTTOM IRONER, BOTTOM IRONER-C Yamilet Attending Provider Dr. Ana Casiano Primary Care Provider Dr. Dwayne Klein Attending Provider 1([facility])-[phone] Abdon BOTTOM IRONER, BOTTOM IRONER-C Yamilet Referring Provider Joelle BOTTOM IRONER, BOTTOM IRONER-C Richie Malik Attending Provider 1([facility])[phone] Dr. Ana Casiano Referring Provider 1([facility])[phone] Cristiano Newman Attending Provider 1([facility])[phone] Abdon BOTTOM IRONER, BOTTOM IRONER-C Yamilet Attending Provider Dr. Ana Casiano Primary Care Provider 1([facility])[phone] Oh ACOSTA, Ana A Primary Care Provider CASIANOANA A Primary Care Unavailable NATE, RUTH Attending Unavailable CASIANO, ANA A Primary Care Unavailable NATE, RUTH Referring Unavailable NATE, RUTH Attending Unavailable CASIANO, ANA A Primary Care Unavailable CASIANO, ANA A Referring Unavailable NATE, RUTH Attending Unavailable CASIANO, ANA A Primary Care Unavailable NATE, RUTH Referring Unavailable NATE, RUTH Admitting Unavailable CASIANO, ANA A Primary Care Unavailable NATE, RUTH Attending Unavailable NATE, RUTH Admitting Unavailable CASIANO, ANA A Primary Care Unavailable ALPA PEARSON ([employer] CLE[employer]) Attending Unavailab le CASIANO, ANA A Referring Unavailable CASIANO, ANA A Primary Care Unavailable NATE, RUTH Referring Unavailable CASIANO, ANA A Primary Care Unavailable NATE, RUTH Attending Unavailable CASIANO, ANA A Primary Care Unavailable NATE, RUTH Attending Unavailable CASIANO, ANA A Primary Care Unavailable NATE, RUTH Referring Unavailable CASIANO, ANA A Primary Care Unavailable NATE, RUTH Referring Unavailable NATE, RUTH Attending Unavailable CASIANO, ANA A Primary Care Unavailable NATE, RUTH Attending Unavailable CASIANO, ANA A Referring Unavailable CASIANO, ANA A Primary Care Unavailable NATE, RUTH Attending Unavailable ALPA PEARSON ([facility]) Referring Unavailab le CASIANO, ANA A Primary Care Unavailable ALEXIA RICHARDSON Referring Unavaila PANTERA Winkler Attending Unavailable CASIANO, ANA A Primary Care Unavailable CONNIE AMBROSE Attending Unavailable CASIANO, ANA A Primary Care Unavailable CONNIE AMBROSE Referring Unavailable Dominic Gonzalez Attending Unavailable CASIANO, ANA A Primary Care Unavailable CASIANO, ANA A Primary Care Unavailable CONNIE AMBROSE Attending Unavailable CASIANO, ANA A Referring Unavailable Oh ACOSTA, Dr. Mcintosh Primary Care Provider 1([facility])[phone] Oh ACOSTA, Dr. Mcintosh Attending Provider 1([facility])[phone] Oh ACOSTA, Dr. Mcintosh Referring Provider 1([facility])[phone] Danny ACOSTA, Dr. Horton Attending Provider 1([facility])[phone] Danny ACOSTA, Dr. Horton Referring Provider 1([facility])[phone] Danny ACOSTA, Dr. Horton Other Provider 1([facility])[phone] Oh ACOSTA, Dr. Mcintosh Primary Care Provider 1([facility])[phone] Oh ACOSTA, Dr. Mcintosh Attending Provider 1([facility])[phone] Oh ACOSTA, Dr. Mcintosh Referring Provider 1([facility])[phone] Jairo MILLARD, Dr. Richey Attending Provider Rell Valentine Attending Unavailable Casiano, Ana Primary Care Unavailable Clifford Delgado Attending Unavailable Clifford Delgado Referring Unavailable Casiano, Ana Primary Care Unavailable Casiano, Ana Primary Care Unavailable Clifford Delgado Consulting Unavailable Casiano, Ana Attending Unavailable Casiano, Ana Referring Unavailable Casiano, Ana Primary Care Unavailable Casiano, Ana Attending Unavailable Casiano, Ana Referring Unavailable Casiano, Ana Primary Care Unavailable Kaiden Gill Attending Unavailable Csaiano, Naa Primary Care Unavailable Casiano, Ana Attending Unavailable Casiano, Ana Referring Unavailable Casiano, Ana Primary Care Unavailable Ata Ramirez Attending Unavailable Casiano, Ana Referring Unavailable Casiano, Ana Primary Care Unavailable Casiano, Ana Referring Unavailable Jairo, Kaiden Attending Unavailable Casiano, Ana Primary Care Unavailable Casiano, Ana Attending Unavailable Casiano, Ana Referring Unavailable Casiano, Ana Primary Care Unavailable Casiano, Ana Attending Unavailable Casiano, Ana Referring Unavailable Casiano, Ana Primary Care Unavailable Casiano, Ana Attending Unavailable Casiano, Ana Referring Unavailable Roman Odonnell Attending Unavailable Casiano, Ana Primary Care Unavailable Allergies Allergy Classification Reported Allergen(s) Allergy Type Date of Onset Reaction(s) Facility (2 sources) egg; Translations: [EGGS] food allergy 07-12-19 [facility] Work Phone: (2 sources) [employer]; Translations: [ANIMALS] allergy to substance 04-20-19 [facility] Work Phone: (2 sources) Penicillin G Drug Allergy 07-12-19 [facility] Work Phone: (2 sources) Sulfacetamide Drug Allergy 07-12-19 [facility] Work Phone: (2 sources) PLANT POLLENS; Translations: [PLANT POLLENS] allergy to substance 07-12-19 21 hay fever [facility] Work Phone: (2 sources) DAIRY; Translations: [DAIRY] food allergy 07-12-19 [facility] Work Phone: (17 sources) Corticosteroids Propensity to adverse reactions 02-27-19 22 Other, hypertensive [facility] (20 sources) Penicillins; Translations: [PENICILLINS] Allergy to substance 10-02-19 14 Swelling [facility] (20 sources) Egg Derived; Translations: [EGG DERIVED] Allergy to substance 07-09-19 19 Other: See Comments [facility] Comment on above: When eaten caused to ngue swelling (17 sources) Milk Containing Products Propensity to adverse reactions 02-27-19 22 Diarrhea [facility] (15 sources) Glucocorticoid Receptor Agonists; Translations: [CORTICOSTEROIDS (GLUCOCORTICOIDS)] Propensity to adverse reactions 07-09-19 19 Hypertension [facility] (15 sources) Milk Containing Products (Dairy); Translations: [MILK CONTAINING PRODUCTS (DAIRY)] Propensity to adverse reactions 07-09-19 Diarrhea [facility] (20 sources) febuxostat; Translations: [FEBUXOSTAT] Drug Allergy 11-20-19 23 Rash [facility] (20 sources) Omeprazole; Translations: [OMEPRAZOLE] Drug Allergy 01-15-20 Itching [facility] (20 sources) pantoprazole; Translations: [PANTOPRAZOLE] Drug Allergy 01-15-20 23 Itching [facility] (20 sources) Betamethasone; Translations: [BETAMETHASONE DIPROPIONATE] Drug Allergy 05-10-19 16 Swelling [facility] (20 sources) Glucocorticoid preparation Drug Allergy 07-09-19 19 Other: See Comments, Shortness of Breath [facility] (20 sources) levoFLOXacin; Translations: [LEVOFLOXACIN] Drug Allergy 03-13-19 24 Rash [facility] (20 sources) Milk Drug Allergy 07-09-19 Diarrhea [facility] (20 sources) Fluconazole; Translations: [FLUCONAZOLE] Drug Allergy 05-21-19 Intolerance, Shortness of Breath [facility] (1 source) Corticosteroids Drug allergy (disorder) 08-20-19 [facility] (1 source) febuxostat Drug Allergy 08-20-19 25 [facility] (1 source) Omeprazole Drug Allergy 08-20-19 25 [facility] (1 source) pantoprazole Drug Allergy 08-20-19 25 [facility] (1 source) Milk Containing Products (Dairy) Drug allergy (disorder) 08-20-19 [facility] Medications Current Medications Medication Drug Class(es) Dates Sig (Normalized) Sig (Original) acetaminophen 325 mg / oxyCODONE hydrochloride 5 mg oral tablet (20 sources) Opioid Agonist Start: 06-12-2021 take 1 tablet by mouth every four hours Oxycodone-Acetami nophen Active 1 TABLET PO Q4H 14 7 June 12, 2021 Start: 06-09-2020 End: 02-20-2021 Oxycodone-Acetaminophen 1 TA BLET tablet Discontinued 1 {tbl} PO EVERY 6 HOURS NEEDED as needed for Pain 12 3 0 June 09, 2020 February 20, 2021 4:04pm Closed fracture of head of right radius Start: 06-09-2020 End: 02-20-2021 take 1 tablet by mouth every six hours as needed Oxycodone-Acetaminophen Discontinued 1 TABLET PO EVERY 6 HOURS NEEDED 12 3 June 09, 2020 February 20, 2021 4:04pm colchicine 0.6 mg oral capsule (7 sources) Start: 02-20-2021 take 0.6 mg by mouth once daily Colchicine Active 0.6 MG PO DAILY February 20, 2021 1:00am cranberry fruit (CRANBERRY) 450 mg tab (4 sources) Start: 03-12-2024 cranberry frui t (CRANBERRY) 450 mg tab once daily. 03/12/2024 Active 24 hr dilTIAZem hydrochloride 120 mg extended release oral capsule (20 sources) Calcium Channel Tia Start: 08-14-2023 take 1 capsule by mouth twice daily Diltiazem Hcl (Dilt-Xr) 120 mg capsule,ext.rel 24h degradable Active 120 mg PO TWICE A DAY August 14, 2023 11:29am Start: 05-05-2023 take 1 tablet by sammie th every twelve hours dilTIAZem (CARDIZEM) 60 mg tablet Take 1 tablet by mouth every 12 hours. 05/05/2023 Active Start: 12-19-2022 End: 08-14-2023 take 1 capsule by mouth once daily Diltiazem Hcl (Dilt-Xr) 120 mg capsule,ext.rel 24h degradable Discontinued 120 mg PO DAILY December 19, 2022 1:00am August 14, 2023 11:29am Start: 12-09-2022 DILT-XR 120 mg 24 hr capsule Start: 02-20-2021 End: 12-05-2022 take 1 capsule by mouth once daily Diltiazem Hcl 60 mg capsule,extended release 12 hr Discontinued 60 mg PO DAILY February 20, 2021 1:00am December 05, 2022 8:44am heart rate docusate sodium 100 mg oral capsule (5 sources) Start: 06-12-2021 take 1 capsule by mouth twice daily Docusate Sodium (Colace) 100 mg capsule Active 100 MG PO TWICE A DAY June 12, 2021 12:00am indapamide 1.25 mg oral tablet (5 sources) Thiazide-like Diuretic Start: 08-19-2024 take 1 tablet by mouth once daily in the morning Indapamide 1.25 mg tablet Active 1.25 mg PO EVERY MORNING August 19, 2024 12:00am Start: 03-21-2024 take 1 tablet by mouth once in dapamide (LOZOL) 1.25 mg tablet Take 1 tablet by mouth every afternoon. 03/21/2024 Active lisinopril 20 mg oral tablet (20 sources) Angiotensin Converting Enzyme Inhibitor Start: 04-28-2023 take 1 tablet by mouth every twelve hours lisinopril (ZESTRIL) 20 mg tablet Take 1 tablet by mouth every 12 hours. 04/28/2023 Active Start: 07-11-2020 take 1 tablet by sammie th twice daily Lisinopril 20 mg tablet Active 20 mg PO TWICE A DAY February 20, 2021 1:00am HTN Start: 04-02-2018 End: 02-20-2021 take 1 tablet by mouth twice daily Lisinopril 10 MG tablet Discontinued 10 mg PO TWICE A DAY 60 0 April 02, 2018 1:00am February 20, 2021 4:04pm Start: 04-28-2014 End: 04-02-2018 take 1 tablet by mouth twice daily Lisinopril 20 MG tablet Discontinued 20 mg PO TWICE A DAY April 28, 2014 12:00am April 02, 2018 12:48pm Blood Pressure End: 05-05-2023 LISINOPRIL ORAL Take by mout h. 0 05/05/2023 Discontinued LISINOPRIL ORAL Take by mouth. 0 Active Comment on above: Take by mouth. Take 1 tablet by sammie th every 12 hours. Magnesium (4 sources) Magnesium 200 mg tab Take by mouth once daily. Active ondansetron 4 mg oral tablet (3 sources) Serotonin-3 Receptor Antagonist Start: 05-13-19 End: 05-17-19 take 1 tablet by mouth every eight hours as needed ondansetron (ZOFRAN) 4 mg tablet Take 1 tablet by mouth every 8 hours as needed for nausea/vomiting for up to 4 days. 12 tablet 0 05/13/2023 05/17/2023 Active Comment on above: Take 1 tablet by sammie th every 8 hours as needed for nausea/vomiting for up to 4 days. polyethylene glycol 3350 384203 mg / potassium chloride 2970 mg / sodium bicarbonate 6740 mg / sodium chloride 5860 mg / sodium sulfate 51204 mg powder for oral solution (1 source) Osmotic Laxative Start: 03-25-19 End: 03-25-19 peg 3350-Electrolytes (GOLYTELY) 236-22.74-6.74 -5.86 gram suspension Indications: Positive colorectal cancer screening using Cologuard test Take 4,000 mL by mouth one time only for 1 dose. Refer to printed prep instructions from your provider. 4000 mL 03/25/2024 03/25/2024 Active tamsulosin hydrochloride 0.4 mg oral capsule (2 sources) alpha-Adrenergic Tia Start: 06-15-19 take 1 capsule by mouth at bedtime Tamsulosin (Flomax) 0.4 mg capsule Active 0.4 MG PO AT BEDTIME June 14, 2021 4:15pm traMADol hydrochloride 50 mg oral tablet (3 sources) Opioid Agonist Start: 05-13-19 End: 05-15-19 take 1 tablet by mouth every eight hours as needed for pain traMADol (ULTRAM) 50 mg tablet Indications: Paraesophageal hernia Take 1 tablet by mouth every 8 hours as needed for pain for up to 2 days. 5 tablet 0 05/13/2023 05/15/2023 Active Comment on above: Take 1 tablet by sammie every 8 hours as needed for pain for up to 2 days. Vitamin D3-Vitamin K2 (Mk4) (K2 Plus D3) 1,000-100 unit-mcg tablet (20 sources) Start: 02-20-19 take 1 tablet by mouth once daily Vitamin D3-Vitamin K2 (Mk4) (K2 Plus D3) 1,000-100 unit-mcg tablet Active 1 TABLET PO DAILY February 20, 2021 4:01pm Start: 02-20-2021 End: 12-05-2022 Vitamin D3-Vitamin K2 (Mk4) (K2 Plus D3) 1,000-100 unit-mcg tablet Discontinued 1 {tbl} PO DAILY February 20, 2021 1:00am December 05, 2022 8:28am supplement Start: 02-20-2021 End: 12-05-2022 Vitamin D3-Vitamin K2 (Mk4) (K2 Plus D3) 1,000-100 unit-mcg tablet Discontinued 1 {tbl} PO DAILY February 20, 2021 1:00am December 05, 2022 8:28am Start: 02-20-2021 End: 12-05-2022 take 1 tablet by mouth once daily Vitamin D3-Vitamin K2 (Mk4) (K2 Plus D3) 1,000-100 unit-mcg tablet Discontinued 1 TABLET PO DAILY February 20, 2021 1:00am December 05, 2022 8:28am Start: 02-20-2021 End: 12-05-2022 take 1 tablet by mouth once daily Vitamin D3-Vitamin K2 (Mk4) (K2 Plus D3) 1,000-100 unit-mcg tablet Discontinued 1 TABLET PO DAILY February 20, 2021 12:00am December 05, 2022 7:28am Start: 02-20-2021 take 1 tablet by sammie th once daily Vitamin D3-Vitamin K2 (Mk4) (K2 Plus D3) 1,000-100 unit-mcg tablet Active 1 TABLET PO DAILY February 20, 2021 12:00am Start: 02-20-2021 take 1 tablet by sammie th once daily Vitamin D3-Vitamin K2 (Mk4) (K2 Plus D3) 1,000-100 unit-mcg tablet Active 1 TABLET PO DAILY February 20, 2021 1:00am 100 ml zoledronic acid 0.05 mg/ml injection (7 sources) Bisphosphonate Start: 02-27-2021 Zoledronic Cpqq-Oepynukj-Rmheo (Reclast) 5 mg/100 mL piggyback Active 5 EACH .Route .YEARLY February 27, 2021 1:00am yearly PRN Completed/Discontinued Medications Medication Drug Class(es) Dates Sig (Normalized) Sig (Original) acetaminophen 500 mg oral tablet (20 sources) Start: 03-22-2018 End: 02-20-2021 take 2 tablets by mouth every eight hours as needed for pain Acetaminophen 500 MG tablet Discontinued 1000 mg PO EVERY 8 HOURS as needed for Pain 90 0 March 22, 2018 12:22pm February 20, 2021 3:57pm Start: 03-22-2018 End: 02-20-2021 take 1000 mg by mouth every eight hours Acetaminophen Discontinued 1000 MG PO EVERY 8 HOURS 90 March 22, 2018 12:22pm February 20, 2021 3:57pm allopurinol 100 mg oral tablet (20 sources) Xanthine Oxidase Inhibitor Start: 05-01-2023 End: 08-19-2024 take 2 tablets by mouth once daily as needed Allopurinol 100 mg tablet Discontinued 200 mg PO DAILY as needed for Gout May 01, 2023 12:00am August 19, 2024 8:00am Start: 05-01-2023 take 200 mg by mouth once keagan y Allopurinol Active 200 MG PO DAILY May 01, 2023 12:00am Start: 07-11-2020 take 1 tablet by sammie th once daily ALLOPURINOL 100 MG TABS 1 tablet by mouth once a day allopurinol [id number] Liset Lovett RN Start: 12-13-2017 End: 02-24-2023 take 2 tablets by mouth once daily as needed Allopurinol 100 MG tablet Discontinued 200 mg PO DAILY as needed for gout December 13, 2017 12:00am February 24, 2023 12:14pm Start: 12-13-2017 End: 02-24-2023 take 200 mg by mouth once daily Allopurinol Discontinu ed 200 MG PO DAILY December 13, 2017 12:00am February 24, 2023 12:14pm Comment on above: Take 200 mg by mouth once daily. ascorbic acid 1000 mg oral capsule (20 sources) Vitamin C Start: 06-26-2022 End: 12-05-2022 take 1 g by mouth every six hours Ascorbic Acid (Vitamin C) 1,000 mg capsule Discontinued 1 g PO EVERY 6 HOURS June 26, 2022 12:00am December 05, 2022 8:28am Start: 06-26-2022 End: 12-05-2022 take 1 g by mouth every six hours Ascorbic Acid (Vitamin C) Discontinued 1 GM PO EVERY 6 HOURS June 26, 2022 12:00am December 05, 2022 8:28am Start: 06-26-2022 End: 12-05-2022 take 1 g by mouth every six hours Ascorbic Acid (Vitamin C) Discontinued 1 GM PO EVERY 6 HOURS June 25, 2022 11:00pm December 05, 2022 7:28am Start: 06-26-2022 take 1 g by mouth ev argelia six hours Ascorbic Acid (Vitamin C) Active 1 GM PO EVERY 6 HOURS June 26, 2022 12:00am Start: 03-22-2018 End: 02-20-2021 take 1 tablet by mouth twice daily at mealtime Ascorbic Acid (Vitamin C) 500 MG tablet Discontinued 500 mg PO TWICE DAILY WITH MEALS March 22, 2018 4:28pm February 20, 2021 4:04pm supplement aspirin 81 mg delayed release oral tablet (20 sources) Platelet Aggregation Inhibitor, Nonsteroidal Anti-inflammatory Drug Start: 03-15-2021 End: 03-15-2021 take 1 tablet by mouth once daily Aspirin (Adult Aspirin Regimen) 81 mg tablet,delayed release (DR/EC) Discontinued 81 mg PO DAILY March 15, 2021 1:00am March 15, 2021 8:19am atorvastatin 40 mg oral tablet (20 sources) HMG-CoA Reductase Inhibitor Start: 05-21-2021 End: 06-07-2021 take 1 tablet by mouth once daily in the evening Atorvastatin 40 mg tablet Discontinued 40 mg PO EVERY EVENING 08 01May 21, 2021 12:00am June 07, 2021 9:11am azelastine hydrochloride 0.137 mg/actuat metered dose nasal spray (6 sources) Histamine-1 Receptor Antagonist Start: 02-24-2023 End: 08-19-2024 take 1-2 spray(s) nasal route twice daily as needed Azelastine 137 mcg (0.1 %) aerosol,spray Discontinued 1 NMA INTRANASAL TWICE A DAY as needed for Allergies February 24, 2023 1:00am August 19, 2024 8:00am administer into each nostril 1-2 sprays as needed Calcium (2 sources) Phosphate Binder, Calcium Start: 07-11-2020 take 1 capsule by mouth twice daily CALCIUM 250 MG CAPS 1 capsule by mouth twice a day CALCIUM Terena Lovett RN calcium carbonate 1250 mg oral tablet (20 sources) Start: 03-22-2018 End: 03-22-2018 Calcium Carbonate (Oyster Shell Calcium 500) 500 MG tablet Discontinued 1000 mg PO DAILY@0800 30 0 March 22, 2018 1:00am March 22, 2018 4:28pm calcium chloride 0.0014 meq/ml / potassium chloride 0.004 meq/ml / sodium chloride 0.103 meq/ml / sodium lactate 0.028 meq/ml injectable solution (2 sources) Start: 04-01-2024 End: 04-01-2024 take 30 mL intravenously every hour 30 mL/hr, INTRAVENOUS, CONTINUOUS, Starting on Thu04/01/24 at 1030, Until Thu04/01/24 at 1238, Preprocedure Start: 09-24-2023 End: 09-24-2023 lactated ringers iv infusion Cholecalciferol (20 sources) Vitamin D Start: 07-11-2020 take 1 tablet by mouth once daily RA VITAMIN D-3 25 MCG (1000 UT) TABS 1 tablet by mouth once a day cholecalciferol (vitamin d3) [id number] Liset Lovett RN Start: 03-22-2018 End: 03-22-2018 take 1 tablet by mouth once daily Cholecalciferol (Vitamin D3) (Vitamin D3) 1,000 UNIT tablet Discontinued 1000 U PO DAILY 30 0 March 22, 2018 1:00am March 22, 2018 4:28pm ciprofloxacin 500 mg oral tablet (2 sources) Quinolone Antimicrobial Start: 07-24-2023 End: 08-03-2023 take 1 tablet by mouth twice daily Ciprofloxacin Hcl (Cipro) 500 mg tablet Discontinued 500 mg PO TWICE A DAY 20 10 July 24, 2023 12:00am August 02, 2023 12:00am August 03, 2023 12:07am diphenhydrAMINE (1 source) Histamine-1 Receptor Antagonist Start: 04-01-2024 End: 04-01-2024 12.5-50 mg, INTRAVENOUS, DIRECTED, Starting on Thu04/01/24 at 1230, Until Thu04/01/24 at 1629, DOSING DIRECTED BY PHYSICIAN FOR PROCEDURAL SEDATION ONLY, Intraprocedure docusate sodium 50 mg / sennosides, prison 8.6 mg oral tablet (20 sources) Start: 03-22-2018 End: 02-20-2021 Sennosides-Docusate Sodium 1 TABLET tablet Discontinued 2 {tbl} PO TWICE DAILY NEEDED as needed for Constipation 60 0 March 22, 2018 1:00am February 20, 2021 4:04pm Start: 03-22-2018 End: 02-20-2021 take 2 tablets by mouth twice daily as needed Sennosides-Docusate Sodium Discontinued 2 TABLET PO TWICE DAILY NEEDED 60 March 22, 2018 1:00am February 20, 2021 4:04pm doxycycline monohydrate 100 mg oral capsule (7 sources) Tetracycline-class Drug Start: 02-12-2023 End: 02-24-2023 take 1 capsule by mouth twice daily Doxycycline Monohydrate 100 mg capsule Discontinued 100 mg PO TWICE A DAY 14 0 February 12, 2023 1:00am February 24, 2023 12:15pm ergocalciferol 1.25 mg oral capsule (20 sources) Provitamin D2 Compound Start: 03-30-2023 End: 03-25-2024 take 1 capsule by mouth every week ergocalciferol 50,000 unit capsule (VITAMIN D2, DRISDOL) Take 1 capsule by mouth one time a week. 8 capsule 03/30/2023 03/25/2024 Discontinued (Other) Comment on above: Take 1 capsule by mo ut one time a week. famotidine 20 mg oral tablet (20 sources) Histamine-2 Receptor Antagonist Start: 05-04-2023 End: 03-25-2024 take 1 tablet by mouth every twelve hours famotidine (PEPCID) 20 mg tablet Take 1 tablet by mouth every 12 hours. 05/04/2023 03/25/2024 Discontinued (Course of therapy completed) Start: 02-24-2023 End: 01-14-2024 Famotidine 40 mg tablet Discontinued 20 mg PO TWICE A DAY February 24, 2023 12:14pm January 14, 2024 8:36am GERD Start: 02-24-2023 take 20 mg by mouth twice keagan y Famotidine Active 20 MG PO TWICE A DAY February 24, 2023 12:14pm Start: 01-14-2023 End: 02-24-2023 take 1 tablet by mouth every twelve hours as needed for gastroesophageal reflux disease Famotidine 40 mg tablet Discontinued 40 mg PO Q12H as needed for GERD January 14, 2023 1:00am February 24, 2023 12:15pm Start: 01-14-2023 End: 01-14-2023 take 1 tablet by mouth twice daily Famotidine 20 mg ta blet Discontinued 20 mg PO TWICE A DAY 60 30 2 January 14, 2023 1:00am January 14, 2023 8:22pm Start: 06-26-2022 End: 01-07-2023 take 1 tablet by mouth twice daily Famotidine 40 mg ta blet Discontinued 40 mg PO TWICE A DAY June 26, 2022 12:00am January 07, 2023 10:04am Start: 06-26-2022 take 40 mg by mouth once daily Famotidine Active 40 MG PO DAILY June 26, 2022 12:00am Start: 06-07-2021 take 40 mg by mouth twice keagan y Famotidine Active 40 MG PO TWICE A DAY June 07, 2021 12:00am Comment on above: Take 40 mg by mouth once daily. 1 ml fentaNYL 0.05 mg/ml injection (1 source) Opioid Agonist Start: 04-01-2024 End: 04-01-2024 25-100 mcg, INTRAVENOUS, DIRECTED, Starting on Thu04/01/24 at 1230, Until Thu04/01/24 at 1629, DOSING DIRECTED BY PHYSICIAN FOR PROCEDURAL SEDATION ONLY, Intraprocedure ferrous sulfate 325 mg oral tablet (20 sources) Start: 03-22-2018 End: 02-20-2021 take 1 tablet by mouth twice daily Ferrous Sulfate 325 MG tablet Discontinued 325 mg PO TWICE A DAY March 22, 2018 1:00am February 20, 2021 4:03pm supplement flaxseed oil (OMEGA 3 ORAL) (3 sources) End: 04-08-2024 flaxseed oil (OMEGA 3 ORAL) Take by mouth. 04/08/2024 Discontinued (Discontinued by Patient) flaxseed oil (OM EGA 3 ORAL) Take by mouth. Active fluconazole 100 mg oral tablet (4 sources) Azole Antifungal Start: 08-14-2023 End: 01-14-2024 take 1 tablet by mouth once daily Fluconazole 100 mg tablet Discontinued 100 mg PO daily August 14, 2023 12:00am January 14, 2024 8:36am Start: 05-19-2023 End: 05-26-2023 take 1 tablet by mouth once daily fluconazole (DIFLUCAN) 100 mg tablet Take 1 tablet by mouth once daily for 7 days. 7 tablet 0 05/19/2023 05/26/2023 Comment on above: Take 1 tablet by sammie once daily for 7 days. Food Supplemt, Lactose-Reduced (20 sources) Start: 10-18-2020 End: 02-20-2021 take 1 mL by mouth three times daily Food Supplemt, Lactose-Reduced Discontinued 120 ML PO THREE TIMES A DAY October 18, 2020 7:22am February 20, 2021 3:04pm Start: 10-18-2020 End: 02-20-2021 take 1 mL by mouth three times daily Food Supplemt, Lactose-Reduced Discontinued 120 ML PO THREE TIMES A DAY October 18, 2020 8:22am February 20, 2021 4:04pm Start: 03-22-2018 End: 10-18-2020 take 1 mL by mouth three times daily Food Supplemt, Lactose-Reduced Discontinued 120 ML PO THREE TIMES A DAY March 22, 2018 3:28pm October 18, 2020 7:23am Start: 03-22-2018 End: 10-18-2020 take 1 mL by mouth three times daily Food Supplemt, Lactose-Reduced Discontinued 120 ML PO THREE TIMES A DAY March 22, 2018 4:28pm October 18, 2020 8:23am Food Supplemt, Lactose-Reduced (Ensure Enlive) 120 ML Liquid (20 sources) Start: 03-22-2018 End: 03-22-2018 take 1 mL by mouth three times daily Food Supplemt, Lactose-Reduced (Ensure Enlive) 120 ML Liquid Discontinued 120 ML PO THREE TIMES A DAY March 22, 2018 12:22pm March 22, 2018 4:28pm Start: 03-22-2018 End: 03-22-2018 take 1 mL by mouth three times daily Food Supplemt, Lactose-Reduced (Ensure Enlive) 120 ML Liquid Discontinued 120 mL PO THREE TIMES A DAY March 22, 2018 1:00am March 22, 2018 4:28pm Start: 03-22-2018 End: 03-22-2018 take 1 mL by mouth three times daily Food Supplemt, Lactose-Reduced (Ensure Enlive) 120 ML Liquid Discontinued 120 mL PO THREE TIMES A DAY March 22, 2018 1:00am March 22, 2018 4:28pm Start: 03-22-2018 End: 03-22-2018 take 1 mL by mouth three times daily Food Supplemt, Lactose-Reduced (Ensure Enlive) 120 ML Liquid Discontinued 120 ML PO THREE TIMES A DAY March 22, 2018 12:00am March 22, 2018 3:28pm Start: 03-22-2018 End: 03-22-2018 take 1 mL by mouth three times daily Food Supplemt, Lactose-Reduced (Ensure Enlive) 120 ML Liquid Discontinued 120 ML PO THREE TIMES A DAY March 22, 2018 1:00am March 22, 2018 4:28pm Food Supplemt, Lactose-Reduced 0.08 gram-1.5 kcal/mL liquid (2 sources) Start: 10-18-2020 End: 02-20-2021 take 1 mL by mouth three times daily as needed Food Supplemt, Lactose-Reduced 0.08 gram-1.5 kcal/mL liquid Discontinued 120 mL PO THREE TIMES A DAY as needed for supplement October 18, 2020 8:22am February 20, 2021 4:04pm Food Supplemt, Lactose-Reduced 120 ML liquid (2 sources) Start: 03-22-2018 End: 10-18-2020 take 1 mL by mouth three times daily Food Supplemt, Lactose-Reduced 120 ML liquid Discontinued 120 mL PO THREE TIMES A DAY March 22, 2018 4:28pm October 18, 2020 8:23am supplement Start: 03-22-2018 End: 10-18-2020 take 1 mL by mouth three times daily Food Supplemt, Lactose-Reduced 120 ML liquid Discontinued 120 mL PO THREE TIMES A DAY March 22, 2018 4:28pm October 18, 2020 8:23am hydroCHLOROthiazide 12.5 mg oral capsule (20 sources) Thiazide Diuretic Start: 02-20-2021 End: 01-14-2024 take 1 capsule by mouth twice daily Hydrochlorothiazide 12.5 mg capsule Discontinued 12.5 mg PO TWICE A DAY February 20, 2021 1:00am January 14, 2024 8:36am Start: 07-11-2020 End: 03-25-2024 take 2 tablets by mouth once daily HYDROCHLOROTHIAZIDE 12.5 MG TABS 2 tablet by mouth once a day (25 mg) hydrochlorothiazide [id number] Liset Lovett RN Start: 08-15-2013 End: 04-02-2018 take 1 capsule by mouth twice daily Hydrochlorothiazide 12.5 MG capsule Discontinued 12.5 mg PO TWICE A DAY August 15, 2013 12:00am April 02, 2018 12:52pm Diuretic Comment on above: Take 12.5 mg by mout h once daily. Two tablets indomethacin 50 mg oral capsule (20 sources) Nonsteroidal Anti-inflammatory Drug Start: End: take 1 capsule by mouth twice daily as needed for arthritis Indomethacin 50 mg capsule Discontinued 50 mg PO TWICE A DAY as needed for arthritis February 20, 2021 1:00am December 05, 2022 8:28am administer with food or milk levocetirizine dihydrochloride 5 mg oral tablet (12 sources) Histamine-1 Receptor Antagonist Start: End: take 1 tablet by mouth once daily Levocetirizine (Allergy Relief (Levocetirizin)) 5 mg tablet Discontinued 5 mg PO DAILY June 26, 2022 12:00am December 05, 2022 8:28am loratadine 10 mg oral tablet (20 sources) Start: End: take 1 tablet by mouth once daily Loratadine (Claritin) 10 mg tablet Discontinued 10 mg PO DAILY April 05, 2020 1:00am February 24, 2023 12:15pm allergies Comment on above: Take 10 mg by mouth once daily. Take 10 mg by mouth as needed for cold/allergy symptoms. magnesium oxide 400 mg oral tablet (19 sources) Start: End: take 1 tablet by mouth once daily Magnesium Oxide 400 mg (241.3 mg magnesium) tablet Discontinued 400 mg PO DAILY June 26, 2022 12:00am December 05, 2022 8:27am Start: 02-20-2021 take 400 mg by mouth once keagan y Magnesium Oxide Active 400 MG PO DAILY February 20, 2021 1:00am melatonin 3 mg oral tablet (20 sources) Start: 04-02-2018 End: 02-20-2021 take 3-9 mg by mouth at bedtime as needed Melatonin 3 MG tablet Discontinued 3 - 9 mg PO AT BEDTIME as needed for Insomnia 0 April 02, 2018 1:00am February 20, 2021 4:04pm Start: 04-02-2018 End: 02-20-2021 take 3-9 mg by mouth at bedtime Melatonin Discontinued 3 - 9 MG PO AT BEDTIME April 02, 2018 1:00am February 20, 2021 4:04pm metoprolol tartrate 50 mg oral tablet (20 sources) beta-Adrenergic Tia Start: 03-13-2021 End: 03-13-2021 take 1 tablet by mouth once daily Metoprolol Tartrate 50 mg tablet Discontinued 50 mg PO DAILY 02 09March 13, 2021 1:00am February 2nd, 2022 4:36pm 1 hour prior to Coronary Calcium CTA 5 ml midazolam 1 mg/ml injection (1 source) Benzodiazepine Start: 04-01-2024 End: 04-01-2024 1-5 mg, INTRAVENOUS, DIRECTED, Starting on Thu04/01/24 at 1230, Until Thu04/01/24 at 1629, DOSING DIRECTED BY PHYSICIAN FOR PROCEDURAL SEDATION ONLY, Intraprocedure nystatin [id number] unt/ml oral suspension (17 sources) Polyene Antifungal Start: 05-21-2023 End: 03-25-2024 take 1 mL by mouth four times daily nystatin (MYCOSTATIN) 100,000 unit/mL suspension swish and spit 1 ml BY MOUTH FOUR TIMES DAILY for 1 minute 05/21/2023 03/25/2024 Discontinued (Discontinued by Patient) omeprazole 40 mg delayed release oral capsule (20 sources) Proton Pump Inhibitor Start: 01-12-2023 End: 01-14-2023 take 1 capsule by mouth twice daily Omeprazole 40 mg capsule,delayed release(DR/EC) Discontinued 40 mg PO TWICE A DAY 60 2 January 12, 2023 1:00am January 14, 2023 5:49pm Start: 03-19-2018 End: 11-14-2020 take 1 capsule by mouth once daily Omeprazole 40 MG capsule,delayed release(DR/EC) Discontinued 40 mg PO DAILY March 19, 2018 1:00am November 14, 2020 11:33am REFLEX oseltamivir 75 mg oral capsule (7 sources) Neuraminidase Inhibitor Start: 02-12-2023 End: 02-24-2023 take 1 capsule by mouth twice daily Oseltamivir (Tamiflu) 75 mg capsule Discontinued 75 mg PO TWICE A DAY 10 5 0 February 12, 2023 1:00am February 24, 2023 12:12pm oxyCODONE hydrochloride 5 mg oral tablet (20 sources) Opioid Agonist Start: 04-02-2018 End: 04-09-2018 take 5-10 mg by mouth every four hours as needed for pain Oxycodone 5 MG tablet Discontinued 5 - 10 mg PO EVERY 4 HOURS NEEDED as needed for Pain 14 7 0 April 02, 2018 1:00am April 08, 2018 1:00am April 09, 2018 1:08am Pain Pain, unspecified Start: 03-22-2018 End: 03-27-2018 take 5-10 mg by mouth every four hours as needed for pain Oxycodone 5 MG tablet Discontinued 5 - 10 mg PO EVERY 4 HOURS NEEDED as needed for Pain 20 5 0 March 22, 2018 1:00am March 26, 2018 1:00am March 27, 2018 1:13am Closed fracture of left hip pantoprazole 40 mg delayed release oral tablet (10 sources) Proton Pump Inhibitor Start: 01-07-2023 End: 01-12-2023 Pantoprazole (Protonix) 40 mg tablet,delayed release (DR/EC) Discontinued 40 mg PO TWICE A DAY 60 2 January 07, 2023 1:00am January 12, 2023 9:46am two times a day for 8 weeks then daily End: 03-25-2024 take 1 tablet by mouth once daily pantoprazole DR (PROTONIX) 40 mg tablet Take 40 mg by mouth once daily. 03/25/2024 Discontinued (Course of therapy completed) rivaroxaban 10 mg oral tablet (20 sources) Factor Xa Inhibitor Start: 03-22-2018 End: 04-02-2018 take 1 tablet by mouth once daily Rivaroxaban (Xarelto) 10 MG tablet Discontinued 10 mg PO DAILY@0600 March 22, 2018 4:28pm April 02, 2018 12:52pm prevent dvt rosuvastatin calcium 10 mg oral tablet (20 sources) HMG-CoA Reductase Inhibitor Start: 02-13-2022 End: 05-12-2022 take 1 tablet by mouth three times weekly Rosuvastatin 10 mg tablet Discontinued 10 mg PO .3xweek February 13, 2022 1:00am May 12, 2022 8:48am 3 times a week ubidecarenone 200 mg oral capsule (12 sources) Start: 06-26-2022 End: 12-05-2022 take 10 capsules by mouth once daily Coenzyme Q10 200 mg capsule Discontinued 200 mg PO DAILY June 26, 2022 12:00am December 05, 2022 8:28am ubrogepant 100 mg oral tablet (20 sources) Start: 02-20-2021 End: 08-19-2024 take 1 tablet by mouth once as needed Ubrogepant (Ubrelvy) 100 mg tablet Discontinued 100 mg PO ONCE as needed for migraines February 20, 2021 1:00am August 19, 2024 8:00am vitamin k2 0.04 mg oral tablet (2 sources) Start: 07-11-2020 take 1 tablet by mouth once daily VITAMIN K2 40 MCG TABS 1 tablet by mouth once a day vitamin k2 [id number] Liset Lovett RN Problems Active Problems Problem Classification Problem Date Documented Da te Episodic/Chronic Cardiac dysrhythmias (3 sources) Supraventricular tachycardia; Translations: [SVT (supraventricular tachycardia)] Onset: 4 03-30-2023 Chronic Cardiac dysrhythmias (20 sources) Tachyarrhythmia ; Translations: [Tachycardia, unspecified] Onset: 4 Episodic Comment on above: was started on dilti azem 01/2021 ? SVT Coronary atherosclerosis and other heart disease (20 sources) Calcification of coronary artery; Translations: [Atherosclerotic heart disease of [place] coronary artery without angina pectoris] 03-15-2021 Chronic Disorders of lipid metabolism (20 sources) Hyperlipidemia; Translations: [Hyperlipidemia, unspecified] Chronic E Codes: Fall (20 sources) Fall; Translations: [Unspecified fall, initial encounter] 06-10-2020 Episodic Esophageal disorders (20 sources) Gastroesophageal reflux disease; Translations: [Gastro-esophageal reflux disease without esophagitis] Onset: 4 06-07-2021 Chronic Comment on above: per pt, controlled o n meds Esophageal disorders (2 sources) Esophageal disorders; Translations: [Gastroesophageal reflux disease with esophagitis without hemorrhage] Onset: 4 Essential hypertension (20 sources) Essential hypertension; Translations: [Essential (primary) hypertension] Onset: 4 Chronic Comment on above: per pt, controlled o n meds Fracture of neck of femur (hip) (20 sources) Closed fracture of hip; Translations: [Fracture of unspecified part of neck of left femur, initial encounter for closed fracture] 02-20-2021 Episodic Comment on above: 2019 Fracture of upper limb (20 sources) Closed fracture of neck of right radius; Translations: [Nondisplaced fracture of neck of right radius, subsequent encounter for closed fracture with delayed healing] Onset: 1 07-11-2020 Episodic Fracture of upper limb (20 sources) Closed fracture of head of radius; Translations: [Displaced fracture of head of left radius, initial encounter for closed fracture] 02-20-2021 Episodic Comment on above: 2020 Genitourinary symptoms and ill-defined conditions (20 sources) H/O: kidney disease; Translations: [Personal history of other diseases of urinary system] Episodic Comment on above: Mass on Left Kidney Headache; including migraine (20 sources) Migraine with aura; Translations: [Migraine with aura, not intractable, without status migrainosus] Onset: 4 05-05-2023 Chronic Headache; including migraine (2 sources) Headache; Translations: [Headache] 11-07-2023 Episodic Headache; including migraine (1 source) Headache; including migraine; Translations: [Headache, unspecified] Onset: 5 Immunizations and screening for infectious disease (1 source) Patient encounter status; Translations: [Encounter for immunization] 04-08-2024 Episodic Inflammatory conditions of male genital organs (8 sources) Balanitis; Translations: [Balanitis] 02-08-2023 Chronic Influenza (7 sources) Influenza due to Influenza A virus; Translations: [Influenza due to other identified influenza virus with other respiratory manifestations] 02-12-2023 Episodic Joint disorders and dislocations; trauma-related (2 sources) Derangement of medial meniscus; Translations: [Other meniscus derangements, other medial meniscus, right knee] Onset: 1 08-07-2020 Chronic Malaise and fatigue (20 sources) Fatigue; Translations: [Other fatigue] Episodic Mycoses (15 sources) Candidiasis of mouth and esophagus; Translations: [Candidal esophagitis] Onset: 4 08-28-2023 Episodic Nonspecific chest pain (20 sources) Chest pain; Translations: [Chest pain, unspecified] Episodic Osteoarthritis (2 sources) Osteoarthritis of right knee joint; Translations: [Unilateral primary osteoarthritis, right knee] Onset: 1 08-07-2020 Chronic Osteoporosis (1 source) Other osteoporosis without current pathological fracture; Translations: [Other osteoporosis without current pathological fracture] Onset: 5 Chronic Other and unspecified benign neoplasm (2 sources) Hemangioma; Translations: [Hemangioma unspecified site] Onset: 2 04-22-2021 Episodic Other and unspecified benign neoplasm (1 source) Adenomatous polyp of rectum; Translations: [Benign neoplasm of rectum] 04-06-2024 Episodic Other and unspecified benign neoplasm (1 source) Benign neoplasm of rectum; Translations: [Adenomatous rectal polyp] Onset: 5 Episodic Other diseases of kidney and ureters (1 source) Renal mass; Translations: [Other specified disorders of kidney and ureter] Onset: 2 05-10-2021 Chronic Other gastrointestinal disorders (13 sources) Dysphagia; Translations: [Dysphagia, unspecified] 10-17-2022 Episodic Other gastrointestinal disorders (6 sources) Dysphagia, unspecified; Translations: [Dysphagia, unspecified] 10-17-2022 Episodic Other gastrointestinal disorders (1 source) Personal history of other diseases of the digestive system; Translations: [Status post repair of paraesophageal diaphragmatic hernia] Onset: 4 Episodic Other gastrointestinal disorders (7 sources) Diarrhea; Translations: [Diarrhea, unspecified] Onset: 5 03-25-2024 Episodic Other gastrointestinal disorders (5 sources) Stool DNA-based colorectal cancer screening positive; Translations: [Other fecal abnormalities] Onset: 5 03-25-2024 Episodic Other gastrointestinal disorders (1 source) Other fecal abnormalities; Translations: [Positive colorectal cancer screening using Cologuard test] Onset: 5 Episodic Other gastrointestinal disorders (1 source) Diarrhea, unspecified; Translations: [Diarrhea, unspecified type] Onset: 5 Episodic Other hematologic conditions (20 sources) Protein level - finding; Translations: [Abnormality of plasma protein, unspecified] 02-20-2021 Episodic Comment on above: M-spike on 11/09/2020 is undetectable. L/K ratio is normal. Has no evidence of Plasma cell dyscrasia.CT of T/L spine on 11/09/2020 shows DJD, no lytic lesions. Other lower respiratory disease (7 sources) Interstitial pneumonia; Translations: [Interstitial pulmonary disease, unspecified] 02-12-2023 Chronic Other lower respiratory disease (20 sources) Dyspnea on exertion; Translations: [Other forms of dyspnea] 02-13-2022 Episodic Other lower respiratory disease (7 sources) Other forms of dyspnea; Translations: [Other respiratory abnormalities] Episodic Other lower respiratory disease (14 sources) Dyspnea; Translations: [Shortness of breath] 03-13-2023 Episodic Other lower respiratory disease (6 sources) Multiple nodules of lung; Translations: [Other nonspecific abnormal finding of lung field] 02-24-2023 Episodic Other lower respiratory disease (4 sources) Other nonspecific abnormal finding of lung field; Translations: [Other nonspecific abnormal finding of lung field] 02-24-2023 Episodic Other lower respiratory disease (2 sources) Pleuritic pain; Translations: [Pleurodynia] 01-22-2024 Episodic Other non-traumatic joint disorders (9 sources) Hip pain; Translations: [Pain in unspecified hip] 01-14-2023 Episodic Other nutritional; endocrine; and metabolic disorders (20 sources) Obesity; Translations: [Obesity, unspecified] 02-20-2021 Chronic Other screening for suspected conditions (not mental disorders or infectious disease) (20 sources) Calcification of coronary artery; Translations: [Abnormal findings on diagnostic imaging of heart and coronary circulation] Onset: 5 03-15-2021 Episodic Other upper respiratory infections (18 sources) Acute upper respiratory infection; Translations: [Acute upper respiratory infection, unspecified] 11-19-2022 Episodic Pneumonia (except that caused by tuberculosis or sexually transmitted disease) (6 sources) Pneumonia; Translations: [Pneumonia, unspecified organism] 02-21-2023 Episodic Residual codes; unclassified (20 sources) Obstructive sleep apnea syndrome; Translations: [Obstructive sleep apnea (adult) (pediatric)] Onset: 4 07-08-2018 Chronic Residual codes; unclassified (6 sources) Obstructive sleep apnea (adult) (pediatric); Translations: [Obstructive sleep apnea (adult)(pediatric)] Onset: 4 02-24-2023 Chronic Residual codes; unclassified (8 sources) History of drug therapy; Translations: [Personal history of other drug therapy] 02-08-2023 Episodic Residual codes; unclassified (2 sources) History of hernia repair; Translations: [Other specified postprocedural states] 08-28-2023 Episodic Residual codes; unclassified (2 sources) History of fundoplication; Translations: [Other specified postprocedural states] 09-24-2023 Episodic Residual codes; unclassified (2 sources) Other specified postprocedural states; Translations: [Status post repair of paraesophageal diaphragmatic hernia] Onset: Episodic Sprains and strains (11 sources) Strain of muscle of hip; Translations: [Strain of muscle, fascia and tendon of unspecified hip, initial encounter] 01-14-2023 Episodic Superficial injury; contusion (20 sources) Contusion of hip; Translations: [Contusion of left hip, initial encounter] 02-20-2021 Episodic Comment on above: 2019 Unclassified (20 sources) Age more than 65 years; Translations: [Over 65 years old] 07-02-2021 Viral infection (20 sources) Disease caused by 2019-nCoV; Translations: [COVID-19] 07-03-2021 Episodic Comment on above: In the category of H PI is should read: The FDA has authorized the emergency use of monoclonal antibody treatment Bebtelovimab and not "(bamlanivimab/estesevimab or casirivimab/imdevimab"... Under Assessment and Plan, it should read: Patient is unable to take Paxlovid and not "Paxil over due"... Clarification: There are medications which are FDA approved for the treatment of outpatient patients with Covid-19 such as Paxlovid, Remdesivir, and Molnupiravir. Past or Other Problems Problem Classification Problem Date Documented Da te Episodic/Chronic Abdominal hernia (20 sources) Paraesophageal hernia; Translations: [Diaphragmatic hernia without obstruction or gangrene] Onset: 04-02-2023 03-30-2023 Episodic Cancer of kidney and renal pelvis (20 sources) History of malignant neoplasm of retroperitoneum; Translations: [Personal history of other malignant neoplasm of kidney] Onset: 05-05-2023 05-05-2023 Episodic Deficiency and other anemia (20 sources) Anemia; Translations: [Other specified anemias] Onset: 05-05-2023 05-05-2023 Episodic Deficiency and other anemia (1 source) Other specified anemias; Translations: [Anemia due to other cause, not classified] Onset: 05-05-2023 Episodic Fracture of lower limb (2 sources) Fracture of patella; Translations: [Unspecified fracture of unspecified patella, initial encounter for closed fracture] Onset: 08-07-2020 08-07-2020 Episodic Other bone disease and musculoskeletal deformities (1 source) Disorder of bone, unspecified; Translations: [Disorder of bone, unspecified] Onset: 12-15-2023 Episodic Other connective tissue disease (1 source) Myalgia, other site; Translations: [Myalgia, other site] Onset: 02-26-2024 Episodic Other lower respiratory disease (4 sources) Shortness of breath; Translations: [Shortness of breath] Onset: 03-06-2023 03-23-2023 Episodic Other lower respiratory disease (1 source) Pleurodynia; Translations: [Pleurodynia] Onset: 02-17-2024 Episodic Other non-traumatic joint disorders (4 sources) Hemarthrosis of right knee; Translations: [Hemarthrosis, right knee] Onset: 07-30-2020 08-07-2020 Episodic Spondylosis; intervertebral disc disorders; other back problems (20 sources) Spinal stenosis; Translations: [Spinal stenosis, site unspecified] Onset: 04-22-2021 04-22-2021 Episodic Unclassified (2 sources) Problem Results Test Name Value Interpretation Reference Range Facility Gastroenterology Visit Repor ton 08-19-2024 Gastroenterology Visit Report [facility] [address] [place] [address] OFFICE VISIT Date of Service: 08/19/24 MR#: [id number] Acct: [id number] Name: VICKIMARIA LUZ RICH BOOTHE Rep #: [id number] : 1950 Provider: Kaiden Gill DO Age/Sex: 73/M Location: [facility] [place] [place] Status: Signed Intake Vital Signs 01/14/24 07:30 Height 5 ft 8 in Intake Visit Reasons: PAIN IN ESOPHAGUS Chief Complaint: dysuria Allergies Egg Derived Allergy (Severe, Verified 08/19/24 07:59) Food Allergy febuxostat (From Uloric) Allergy (Intermediate, Verified 08/19/24 07:59) Other Penicillins Allergy (Verified 08/19/24 07:59) Anaphylaxis omeprazole Adverse Reaction (Intermediate, Verified 08/19/24 07:59) Rash pantoprazole (From Protonix) Adverse Reaction (Intermediate, Verified 08/19/24 07:59) Hives Corticosteroids (Glucocorticoids) (steroids) Adverse Reaction (Verified 08/19/24 07:59) Hypertension Milk Containing Products (Dairy) (Milk Containing Products) Adverse Reaction (Verified 08/19/24 07:59) Diarrhea Medications ???Medication ???Instructions ???Recorded ???Confirmed ???Type lisinopril 20 mg tablet 20 mg PO BID HTN 02/20/21 08/19/24 History diltiazem HCl 120 mg 120 mg PO BID 08/14/23 08/19/24 Hi story capsule,extended release 24 hr, controlled (DILT-XR) indapamide 1.25 mg tablet 1.25 mg PO QAM 08/19/24 08/19/24 H istory Have you fallen in the past year?: No PFSH Medical History Right foot strain Barretts esophagus (01/05/23) Cancer Alcohol use Dietary restriction History of hiatal hernia History of irregular heartbeat History of renal cell cancer Spinal stenosis History of renal disease Wears hearing aid Wears glasses Gout Migraine headache Difficulty swallowing Non-smoker Chronic cough Seasonal allergies Personal history of supraventricular tachycardia History of stress test Cardiology follow-up encounter Obesity Hyperuricemia Eczema Hyperlipidemia Essential hypertension Fracture of right patella Fracture of right radius Osteoporosis Fracture of radial head, left, closed Closed left hip fracture GERD (gastroesophageal reflux disease) Surgical History History of repair of hiatal hernia History of esophagogastroduodenosc opy (EGD) History of colonoscopy History of partial nephrectomy History of mandibular surgery History of hip surgery Family History Mother Diabetes Dementia Heart disease tachycardia Father Heart disease Leukemia Social History household members: spouse current occupational status: retired Smoking Status: Never smoker alcohol intake: current alcohol intake frequency: a few times a week Alcohol type: beer substance use type: does not use diet: lactose free caffeine: No what type of physical activity do you participate in: walking and bicycling frequency: 3-4 times per week HPI HPI Chief Complaint: dysuria Details: MARIA LUZ SANTANA, is a 73 M who presents to the office today for follow up. PCP OV 06.02.22 with back pain (spinal stenosis). Additional difficulty with GERD CT abd/pel 4.08.31 small gallstones; renal nodules; small hiatal hernia OV 9.8.23 Pt has previous dx of GERD. Currently taking famotidine 40mg BID. Has had increased dysphagia the last 2 months. Mostly has issues with bread and meats. Did have scopes with Dr. Castaneda 4-5 years ago. He told him he had a hiatal hernia. BM are normal. EGD 12.22.22- Short- segment Anthony's Esophagus, [place] Grade B reflux esophagitis, Medium HH. 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 Some heartburn. Denies nausea of vomiting. States he has issues with dry foods primarily. Is not taking any PPI. Is asking for f/u for Anthony's. ROS Const Constitutional: Positive for fatigue, headache(s) and weight change; No fever(s) ENT ENT: Positive for headache(s) and difficulty swallowing Gastro GI: Positive for bloating, difficulty swallowing and excessive flatus; No abdominal pain, belching, change in bowel habits, change in stool character, coffee ground emesis, constipation, cramping, diarrhea, heartburn, feeling full early, incontinent of stools, Vomiting blood/hematemesis, Blood in stool, loose stools, Black,tarry stools, nausea/dyspepsia, pain with swallowing, vomiting or other Musc Musculoskeletal: Positive for joint pain, back pain and Arthritis Skin Skin: No yellowing of the eye or itchy eyes Neuro Neurology: Positive for headache(s) (more content not included)... Normal [facility] PSA,Total - Annual Screenon 06-20-2024 PSA,TOT SCREEN 0.88 ng/mL Normal 0.02-4.00 [facility] Comment on above: Order Comment: AV PERES WAS ASKED ABOUT MARCO A BENAVIDES ORDERS FOR LOOD WORK AND HE REFUSED. Result Comment: This test was performed using the [employer] tPSA method. Measured values of a patient??sample can vary depending on the testing procedure used. PSA values determined on patient samples by different testing procedures cannot be used interchangeably. If there is a change in PSA assays while monitoring therapy, sequential testing should be performed to confirm baseline values. Performed By: #### L 501.9910 ####[facility] [address] [place], [address] Absolute lymphocyte countOrd ered By: Ana Casiano on 05-23-2024 Lymphocytes Auto (Unsp spec) [#/Vol] 1.04 10*3/uL 0.83-4.51 [facility] Absolute neutrophil countOrd ered By: Ana Casiano on 05-23-2024 Neutrophils (Bld) [#/Vol] 3.4 10*3/uL 2.0-7.7 [facility] Anion gap in Serum or Plasma Ordered By: Ana Casiano on 05-23-2024 Anion gap [Moles/Vol] 11 mmol/L 5- [facility] Automated lymphocyte count a s percentage of total leukocytesOrdered By: Ana Casiano on 05-23-2024 Lymphocytes/100 WBC Auto (Unsp spec) 19.8 % 19- [facility] BUN/creatinine ratioOrdered By: Ana Casiano on 05-23-2024 Urea nitrogen/Creatinine [Mass ratio] 19.6 mg/mg 10- [facility] Basophil percentageOrdered B y: Ana Casiano on 05-23-2024 Basophils/100 WBC (Bld) 0.6 % 0- [facility] Bilirubin, totalOrdered By: Ana Casiano on 05-23-2024 Bilirubin [Mass/Vol] 0.65 mg/dL 0.00-1.30 [facility] CBC W/Diff, Automatedon 05-10 Absolute Lymph 1.04 X10 3/uL Normal 0.83-4.51 [facility] Comment on above: Order Comment: CRP,C BC,SED(DUPLICATE TESTS FOR BOTH DRS.)OTHER TESTS-SMITHOrder Date: 05/23/24Order Info: [id number] - CBCDOrder Info: [id number] - SED Performed By: #### L 101.9900, L500.4050, L501.6710, L100.0100 ####[facility] [address] [place], [address] Absolute Neut 3.4 X10 3/uL Normal 2.0-7.7 [facility] Comment on above: Order Comment: CRP,C BC,SED(DUPLICATE TESTS FOR BOTH DRS.)OTHER TESTS-SMITHOrder Date: 05/23/24Order Info: [id number] - CBCDOrder Info: [id number] - SED Performed By: #### L 101.9900, L500.4050, L501.6710, L100.0100 ####[facility] [address] [place], [address] Basophils/100 WBC (Bld) 0.6 % Normal 0-1 [facility] Comment on above: Order Comment: CRP,C BC,SED(DUPLICATE TESTS FOR BOTH DRS.)OTHER TESTS-SMITHOrder Date: 05/23/24Order Info: [id number] - CBCDOrder Info: [id number] - SED Performed By: #### L 101.9900, L500.4050, L501.6710, L100.0100 ####[facility] [address] [place], [address] Eosinophils/100 WBC (Bld) 4.0 % Normal 0-5 [facility] Comment on above: Order Comment: CRP,C BC,SED(DUPLICATE TESTS FOR BOTH DRS.)OTHER TESTS-SMITHOrder Date: 05/23/24Order Info: [id number] - CBCDOrder Info: [id number] - SED Performed By: #### L 101.9900, L500.4050, L501.6710, L100.0100 ####[facility] [address] [place], [address] Erythrocyte distribution width (RBC) [Ratio] 13.2 % Normal 11.6-14.6 [facility] Comment on above: Order Comment: CRP,C BC,SED(DUPLICATE TESTS FOR BOTH DRS.)OTHER TESTS-SMITHOrder Date: 05/23/24Order Info: [id number] - CBCDOrder Info: [id number] - SED Performed By: #### L 101.9900, L500.4050, L501.6710, L100.0100 ####[facility] [address] [place], [address] Hematocrit (Bld) [Volume fraction] 35.9 % Low 40-54 [facility] Comment on above: Order Comment: CRP,C BC,SED(DUPLICATE TESTS FOR BOTH DRS.)OTHER TESTS-SMITHOrder Date: 05/23/24Order Info: 4-1 - CBCDOrder Info: [id number] - SED Performed By: #### L 101.9900, L500.4050, L501.6710, L100.0100 ####[facility] [address] [place], [address] Hemoglobin (Bld) [Mass/Vol] 12.4 g/dL Low 13.0-16.5 [facility] Comment on above: Order Comment: CRP,C BC,SED(DUPLICATE TESTS FOR BOTH DRS.)OTHER TESTS-SMITHOrder Date: 05/23/24Order Info: 183-1 - CBCDOrder Info: [id number] - SED Performed By: #### L 101.9900, L500.4050, L501.6710, L100.0100 ####[facility] [address] [place], [address] IG% 0.600 Normal 0.0-0.9 [facility] Comment on above: Order Comment: CRP,C BC,SED(DUPLICATE TESTS FOR BOTH DRS.)OTHER TESTS-SMITHOrder Date: 05/23/24Order Info: 183-1 - CBCDOrder Info: [id number] - SED Result Comment: IG% - Immature Granulocytes (promyelocytes, myelocytes and metamyelocytes) > 1% indicates that a LEFT SHIFT is Present. Performed By: #### L 101.9900, L500.4050, L501.6710, L100.0100 ####[facility] [address] [place], [address] Lymphocytes/100 WBC (Bld) 19.8 % Normal 19-41 [facility] Comment on above: Order Comment: CRP,C BC,SED(DUPLICATE TESTS FOR BOTH DRS.)OTHER TESTS-SMITHOrder Date: 05/23/24Order Info: [id number] - CBCDOrder Info: [id number] - SED Performed By: #### L 101.9900, L500.4050, L501.6710, L100.0100 ####[facility] [address] [place], [address] MCH (RBC) [Entitic mass] 33.3 pg High 27.0-32.0 [facility] Comment on above: Order Comment: CRP,C BC,SED(DUPLICATE TESTS FOR BOTH DRS.)OTHER TESTS-SMITHOrder Date: 05/23/24Order Info: [id number] - CBCDOrder Info: [id number] - SED Performed By: #### L 101.9900, L500.4050, L501.6710, L100.0100 ####[facility] [address] [place], [address] MCHC (RBC) [Mass/Vol] 34.5 g/dL Normal 32-36 [facility] Comment on above: Order Comment: CRP,C BC,SED(DUPLICATE TESTS FOR BOTH DRS.)OTHER TESTS-SMITHOrder Date: 05/23/24Order Info: [id number] - CBCDOrder Info: [id number] - SED Performed By: #### L 101.9900, L500.4050, L501.6710, L100.0100 ####[facility] [address] [place], [address] MCV (RBC) [Entitic vol] 96.5 fL High 80-94 [facility] Comment on above: Order Comment: CRP,C BC,SED(DUPLICATE TESTS FOR BOTH DRS.)OTHER TESTS-SMITHOrder Date: 05/23/24Order Info: 183- - CBCDOrder Info: [id number] - SED Performed By: #### L 101.9900, L500.4050, L501.6710, L100.0100 ####[facility] [address] [place], [address] Monocytes/100 WBC (Bld) 10.3 % High 0-10 [facility] Comment on above: Order Comment: CRP,C BC,SED(DUPLICATE TESTS FOR BOTH DRS.)OTHER TESTS-SMITHOrder Date: 05/23/24Order Info: [id number]- - CBCDOrder Info: [id number] - SED Performed By: #### L 101.9900, L500.4050, L501.6710, L100.0100 ####[facility] [address] [place], [address] Neutrophils/100 WBC (Bld) 64.7 % Normal 47-70 [facility] Comment on above: Order Comment: CRP,C BC,SED(DUPLICATE TESTS FOR BOTH DRS.)OTHER TESTS-SMITHOrder Date: 05/23/24Order Info: 0184- - CBCDOrder Info: [id number] - SED Performed By: #### L 101.9900, L500.4050, L501.6710, L100.0100 ####[facility] [address] [place], [address] Nucleated RBC (Bld) [#/Vol] 0 10*3/uL Normal 0-5 [facility] Comment on above: Order Comment: CRP,C BC,SED(DUPLICATE TESTS FOR BOTH DRS.)OTHER TESTS-SMITHOrder Date: 05/23/24Order Info: [id number] - CBCDOrder Info: [id number] - SED Performed By: #### L 101.9900, L500.4050, L501.6710, L100.0100 ####[facility] [address] [place], [address] Platelet mean volume (Bld) [Entitic vol] 10.4 fL Normal 6.2-12.0 [facility] Comment on above: Order Comment: CRP,C BC,SED(DUPLICATE TESTS FOR BOTH DRS.)OTHER TESTS-SMITHOrder Date: 05/23/24Order Info: [id number] - CBCDOrder Info: [id number] - SED Performed By: #### L 101.9900, L500.4050, L501.6710, L100.0100 ####[facility] [address] [place], [address] Platelets (Bld) [#/Vol] 196 10*3/uL Normal 150-450 [facility] Comment on above: Order Comment: CRP,C BC,SED(DUPLICATE TESTS FOR BOTH DRS.)OTHER TESTS-SMITHOrder Date: 05/23/24Order Info: 183- - CBCDOrder Info: [id number] - SED Performed By: #### L 101.9900, L500.4050, L501.6710, L100.0100 ####[facility] [address] [place], [address] RBC (Bld) [#/Vol] 3.72 10*6/uL Low 4.6-6.2 [facility] Comment on above: Order Comment: CRP,C BC,SED(DUPLICATE TESTS FOR BOTH DRS.)OTHER TESTS-SMITHOrder Date: 05/23/24Order Info: [id number] - CBCDOrder Info: [id number] - SED Performed By: #### L 101.9900, L500.4050, L501.6710, L100.0100 ####[facility] [address] [place], [address] RDW SD 46.9 fl High 35.1-43.9 [facility] Comment on above: Order Comment: CRP,C BC,SED(DUPLICATE TESTS FOR BOTH DRS.)OTHER TESTS-SMITHOrder Date: 05/23/24Order Info: [id number] - CBCDOrder Info: [id number] - SED Performed By: #### L 101.9900, L500.4050, L501.6710, L100.0100 ####[facility] [address] [place], [address] WBC (Bld) [#/Vol] 5.2 10*3/uL Normal 4.4-11.0 [facility] Comment on above: Order Comment: CRP,C BC,SED(DUPLICATE TESTS FOR BOTH DRS.)OTHER TESTS-SMITHOrder Date: 05/23/24Order Info: [id number] - CBCDOrder Info: [id number] - SED Performed By: #### L 101.9900, L500.4050, L501.6710, L100.0100 ####[facility] [address] [place], [address] CRPon 05-23-2024 C-REACTIVE PROT < 3.00 Normal 0.0-3.0 [facility] Comment on above: Order Comment: CRP,C BC,SED(DUPLICATE TESTS FOR BOTH DRS.)OTHER TESTS-SMITHOrder Date: 05/23/24Order Info: [id number] - CMPOrder Info: [id number] - CRP Performed By: #### L 101.9900, L500.4050, L501.6710, L100.0100 ####[facility] [address] [place], [address] Carbon dioxide, total [Moles /volume] in Central venous bloodOrdered By: Ana Casiano on 05-23-2024 CO2 [Moles/Vol] 27.2 mmol/L 21.0-32.0 [facility] Chloride assayOrdered By: Jaswant Casiano on 05-23-2024 Chloride [Moles/Vol] 102 mmol/L 98-108 [facility] Comprehensive Metabolic Prof ilon 05-23-2024 Albumin [Mass/Vol] 4.1 g/dL Normal 3.4-4.8 [facility] Comment on above: Order Comment: CRP,C BC,SED(DUPLICATE TESTS FOR BOTH DRS.)OTHER TESTS-SMITHOrder Date: 05/23/24Order Info: [id number] - CMPOrder Info: [id number] - CRP Performed By: #### L 101.9900, L500.4050, L501.6710, L100.0100 ####[facility] [address] [place], [address] Albumin/Globulin [Mass ratio] 1.9 {ratio} Normal 0.9-2.4 [facility] Comment on above: Order Comment: CRP,C BC,SED(DUPLICATE TESTS FOR BOTH DRS.)OTHER TESTS-SMITHOrder Date: 05/23/24Order Info: [id number] - CMPOrder Info: [id number] - CRP Performed By: #### L 101.9900, L500.4050, L501.6710, L100.0100 ####[facility] [address] [place], [address] ALK PHOS 59 U/L Normal 40-129 [facility] Comment on above: Order Comment: CRP,C BC,SED(DUPLICATE TESTS FOR BOTH DRS.)OTHER TESTS-SMITHOrder Date: 05/23/24Order Info: [id number] - CMPOrder Info: - CRP Performed By: #### L 101.9900, L500.4050, L501.6710, L100.0100 ####[facility] [address] [place], [address] ALT [Catalytic activity/Vol] 16 U/L Normal <=46 [facility] Comment on above: Order Comment: CRP,C BC,SED(DUPLICATE TESTS FOR BOTH DRS.)OTHER TESTS-SMITHOrder Date: 05/23/24Order Info: [id number] - CMPOrder Info: [id number] - CRP Performed By: #### L 101.9900, L500.4050, L501.6710, L100.0100 ####[facility] [address] [place], [address] AST [Catalytic activity/Vol] 22 U/L Normal <=37 [facility] Comment on above: Order Comment: CRP,C BC,SED(DUPLICATE TESTS FOR BOTH DRS.)OTHER TESTS-SMITHOrder Date: 05/23/24Order Info: [id number] - CMPOrder Info: [id number] - CRP Performed By: #### L 101.9900, L500.4050, L501.6710, L100.0100 ####[facility] [address] [place], [address] Bilirubin [Mass/Vol] 0.65 mg/dL Normal 0.00-1.30 [facility] Comment on above: Order Comment: CRP,C BC,SED(DUPLICATE TESTS FOR BOTH DRS.)OTHER TESTS-SMITHOrder Date: 05/23/24Order Info: 0786- - CMPOrder Info: [id number] - CRP Performed By: #### L 101.9900, L500.4050, L501.6710, L100.0100 ####[facility] [address] [place], [address] BUN/CRE 19.6 RATIO Normal 10-20 [facility] Comment on above: Order Comment: CRP,C BC,SED(DUPLICATE TESTS FOR BOTH DRS.)OTHER TESTS-SMITHOrder Date: 05/23/24Order Info: [id number]- - CMPOrder Info: [id number] - CRP Performed By: #### L 101.9900, L500.4050, L501.6710, L100.0100 ####[facility] [address] [place], [address] Calcium [Mass/Vol] 9.1 mg/dL Normal 7.6-11.0 [facility] Comment on above: Order Comment: CRP,C BC,SED(DUPLICATE TESTS FOR BOTH DRS.)OTHER TESTS-SMITHOrder Date: 05/23/24Order Info: 0786- - CMPOrder Info: [id number] - CRP Performed By: #### L 101.9900, L500.4050, L501.6710, L100.0100 ####[facility] [address] [place], [address] Chloride [Moles/Vol] 102 mmol/L Normal 98-108 [facility] Comment on above: Order Comment: CRP,C BC,SED(DUPLICATE TESTS FOR BOTH DRS.)OTHER TESTS-SMITHOrder Date: 05/23/24Order Info: 07- - CMPOrder Info: [id number] - CRP Performed By: #### L 101.9900, L500.4050, L501.6710, L100.0100 ####[facility] [address] [place], [address] CO2 [Moles/Vol] 27.2 mmol/L Normal 21.0-32.0 [facility] Comment on above: Order Comment: CRP,C BC,SED(DUPLICATE TESTS FOR BOTH DRS.)OTHER TESTS-SMITHOrder Date: 05/23/24Order Info: 785- - CMPOrder Info: [id number] - CRP Performed By: #### L 101.9900, L500.4050, L501.6710, L100.0100 ####[facility] [address] [place], [address] Creatinine [Mass/Vol] 1.14 mg/dL Normal 0.70-1.20 [facility] Comment on above: Order Comment: CRP,C BC,SED(DUPLICATE TESTS FOR BOTH DRS.)OTHER TESTS-SMITHOrder Date: 05/23/24Order Info: [id number] - CMPOrder Info: [id number] - CRP Performed By: #### L 101.9900, L500.4050, L501.6710, L100.0100 ####[facility] [address] [place], [address] GAP 11 Normal 5-15 [facility] Comment on above: Order Comment: CRP,C BC,SED(DUPLICATE TESTS FOR BOTH DRS.)OTHER TESTS-SMITHOrder Date: 05/23/24Order Info: 07- - CMPOrder Info: [id number] - CRP Performed By: #### L 101.9900, L500.4050, L501.6710, L100.0100 ####[facility] [address] [place], [address] GFR/1.73 sq M.predicted among non-blacks MDRD (S/P/Bld) [Vol rate/Area] 68 mL/min/{1.73_m2} Normal >60 [facility] Comment on above: Order Comment: CRP,C BC,SED(DUPLICATE TESTS FOR BOTH DRS.)OTHER TESTS-SMITHOrder Date: 05/23/24Order Info: [id number]- - CMPOrder Info: [id number] - CRP Result Comment: mL/m in/1.73m2 CKD-EPI Creatinine Equation (2020) Performed By: #### L 101.9900, L500.4050, L501.6710, L100.0100 ####[facility] [address] [place], [address] Globulin (S) [Mass/Vol] 2.1 g/dL Low 2.2-4.2 [facility] Comment on above: Order Comment: CRP,C BC,SED(DUPLICATE TESTS FOR BOTH DRS.)OTHER TESTS-SMITHOrder Date: 05/23/24Order Info: 07 - CMPOrder Info: [id number] - CRP Performed By: #### L 101.9900, L500.4050, L501.6710, L100.0100 ####[facility] [address] [place], [address] Glucose [Mass/Vol] 109 mg/dL High 70-99 [facility] Comment on above: Order Comment: CRP,C BC,SED(DUPLICATE TESTS FOR BOTH DRS.)OTHER TESTS-SMITHOrder Date: 05/23/24Order Info: [id number] - CMPOrder Info: [id number] - CRP Performed By: #### L 101.9900, L500.4050, L501.6710, L100.0100 ####[facility] [address] [place], [address] Potassium [Moles/Vol] 3.8 mmol/L Normal 3.3-5.1 [facility] Comment on above: Order Comment: CRP,C BC,SED(DUPLICATE TESTS FOR BOTH DRS.)OTHER TESTS-SMITHOrder Date: 05/23/24Order Info: [id number] - CMPOrder Info: [id number] - CRP Performed By: #### L 101.9900, L500.4050, L501.6710, L100.0100 ####[facility] [address] [place], [address] Sodium [Moles/Vol] 140 mmol/L Normal 133-145 [facility] Comment on above: Order Comment: CRP,C BC,SED(DUPLICATE TESTS FOR BOTH DRS.)OTHER TESTS-SMITHOrder Date: 05/23/24Order Info: [id number] - CMPOrder Info: [id number] - CRP Performed By: #### L 101.9900, L500.4050, L501.6710, L100.0100 ####[facility] [address] [place], [address] T PROT 6.2 g/dL Normal 5.9-8.4 [facility] Comment on above: Order Comment: CRP,C BC,SED(DUPLICATE TESTS FOR BOTH DRS.)OTHER TESTS-SMITHOrder Date: 05/23/24Order Info: [id number] - CMPOrder Info: [id number] - CRP Performed By: #### L 101.9900, L500.4050, L501.6710, L100.0100 ####[facility] [address] [place], [address] Urea nitrogen [Mass/Vol] 22 mg/dL High 4-19 [facility] Comment on above: Order Comment: CRP,C BC,SED(DUPLICATE TESTS FOR BOTH DRS.)OTHER TESTS-SMITHOrder Date: 05/23/24Order Info: [id number] - CMPOrder Info: [id number] - CRP Performed By: #### L 101.9900, L500.4050, L501.6710, L100.0100 ####[facility] [address] [place], [address] Eosinophil percentageOrdered By: Ana Casiano on 05-23-2024 Eosinophils/100 WBC (Bld) 4.0 % 0-5 [facility] Erythrocyte Sed Rateon 05-23 SED RATE 1 mm/hr Normal 0-20 [facility] Comment on above: Order Comment: CRP,C BC,SED(DUPLICATE TESTS FOR BOTH DRSAndriy)OTHER TESTS-SMITHOrder Date: 05/23/24Order Info: [id number] - CBCDOrder Info: [id number] - SED Performed By: #### L 101.9900, L500.4050, L501.6710, L100.0100 ####[facility] [address] [place], [address] Erythrocyte distribution wid th ratioOrdered By: Ana Casiano on 05-23-2024 Erythrocyte distribution width (RBC) [Ratio] 13.2 % 11.6-14.6 [facility] Erythrocyte distribution wid th standard deviationOrdered By: Ana Casiano on 05-23-2024 Erythrocyte distribution width (RBC) [Ratio] 46.9 fl High 35.1-43.9 [facility] Erythrocyte sedimentation ra teOrdered By: Ana Casiano on 05-23-2024 ESR (Bld) [Velocity] 1 mm/h 0-20 [facility] Glomerular filtration rate ( GFR) estimation/1.73 sq m using serum, plasma, or whole bOrdered By: Ana Casiano on 05-23-2024 GFR/1.73 sq M.predicted among non-blacks MDRD (S/P/Bld) [Vol rate/Area] 68 mL/min/{1.73_m2} >60 [facility] Comment on above: mL/min/1.73m2 CKD-EP I Creatinine Equation (2020) Hematocrit Auto (Bld) [Volum e fraction]Ordered By: Ana Casiano on 05-23-2024 Hematocrit (Bld) [Volume fraction] 35.9 % Low 40-54 [facility] Hemoglobin measurementOrdere d By: Ana Casiano on 05-23-2024 Hemoglobin (Bld) [Mass/Vol] 12.4 g/dL Low 13.0-16.5 [facility] Immature granulocytes/100 WB C Auto (Bld)Ordered By: Ana Casiano on 05-23-2024 Immature granulocytes/100 WBC (Bld) 0.600 % 0.0-0.9 [facility] Comment on above: IG% - Immature Granu locytes (promyelocytes, myelocytes and metamyelocytes) > 1% indicates that a LEFT SHIFT is Present. Laboratory - Chemistry and C hemistry - challengeOrdered By: Ana Casiano on 05-23-2024 AST [Catalytic activity/Vol] 22 U/L <38 [facility] MCV (mean corpuscular volume ) determinationOrdered By: Ana Casiano on 05-23-2024 MCV (RBC) [Entitic vol] 96.5 fL High 80-94 [facility] Mean corpuscular hemoglobin (MCH) determinationOrdered By: Ana Casiano on 05-23-2024 MCH (RBC) [Entitic mass] 33.3 pg High 27.0-32.0 [facility] Mean corpuscular hemoglobin concentration (MCHC) determinationOrdered By: Ana Casiano on 05-23-2024 MCHC (RBC) [Mass/Vol] 34.5 g/dL 32-36 [facility] Mean platelet volume determi nationOrdered By: Ana Casiano on 05-23-2024 Platelet mean volume (Bld) [Entitic vol] 10.4 fL 6.2-12.0 [facility] Monocyte percentageOrdered B y: Ana Casiano on 05-23-2024 Monocytes/100 WBC (Bld) 10.3 % High 0-10 [facility] Neutrophil percentageOrdered By: Ana Casiano on 05-23-2024 Neutrophils/100 WBC (Bld) 64.7 % 47-70 [facility] Nucleated red blood cell per centageOrdered By: Ana Casiano 05-23-2024 Nucleated RBC/100 WBC (Bld) [Ratio] 0 % 0-5 [facility] Platelet countOrdered By: Jaswant Casiano on 05-23-2024 Platelets (Bld) [#/Vol] 196 10*3/uL 150-450 [facility] Potassium measurement (mass/ volume)Ordered By: Ana Casiano on 05-23-2024 Potassium (Unsp spec) [Mass/Vol] 3.8 mmol/L 3.3-5.1 [facility] RBC Auto (Bld) [#/Vol]Ordere d By: Ana Casiano on 05-23-2024 RBC (Bld) [#/Vol] 3.72 10*6/uL Low 4.6-6.2 [facility] Serum creatinine measurement (mass/volume)Ordered By: Ana Casiano on 05-23-2024 Creatinine [Mass/Vol] 1.14 mg/dL 0.70-1.20 [facility] Serum globulin measurementOr dered By: Ana Casiano on 05-23-2024 Globulin (S) [Mass/Vol] 2.1 g/dL Low 2.2-4.2 [facility] Serum glucose measurement (m ass/volume)Ordered By: Ana Casiano on 05-23-2024 Glucose [Mass/Vol] 109 mg/dL High 70-99 [facility] Serum or plasma C reactive p rotein measurement (mass/volume)Ordered By: Ana Casiano on 05-23-2024 CRP [Mass/Vol] mg/L 0.0-3.0 [facility] Serum or plasma alanine malcolm otransferase (ALT) measurementOrdered By: Ana Casiano on 05-23-2024 ALT [Catalytic activity/Vol] 16 U/L <47 [facility] Serum or plasma albumin remington urement (mass/volume)Ordered By: Ana Casiano on 05-23-2024 Albumin [Mass/Vol] 4.1 g/dL 3.4-4.8 [facility] Serum or plasma albumin/glob ulin mass ratioOrdered By: Aan Casiano on 05-23-2024 Albumin/Globulin [Mass ratio] 1.9 {ratio} 0.9-2.4 [facility] Serum or plasma alkaline milagros sphatase measurementOrdered By: Ana Casiano 05-23-2024 ALP [Catalytic activity/Vol] 59 U/L 40-129 [facility] Serum or plasma calcium remington urement (mass/volume)Ordered By: Ana Casiano on 05-23-2024 Calcium [Mass/Vol] 9.1 mg/dL 7.6-11.0 [facility] Serum or plasma urea nitroge n measurement (mass/volume)Ordered By: Ana Casiano on 05-23-2024 Urea nitrogen [Mass/Vol] 22 mg/dL High 4-19 [facility] Sodium levelOrdered By: Ana Casiano on 05-23-2024 Sodium [Moles/Vol] 140 mmol/L 133-145 [facility] Total proteinOrdered By: Danisha Casiano on 05-23-2024 Protein [Mass/Vol] 6.2 g/dL 5.9-8.4 [facility] Vitamin D,25 Hydroxyon 05-23 Vitamin D 25-OH 33.2 ng/mL Normal 30-100 [facility] Comment on above: Order Comment: CRP,C BC,SED(DUPLICATE TESTS FOR BOTH DRS.)OTHER TESTS-SMITHOrder Date: 05/23/24Order Info: [id number] - CMPOrder Info: [id number] - CRP Result Comment: Cathryn min D Status Deficiency: <20 ng/mL (50nmol/L) Insufficiency: 20-30 ng/mL (50-75 nmol/L) Sufficiency: 30-100 ng/mL (75-250 nmol/L) Toxicity: >100 ng/mL (>250 nmol/L) Performed By: #### L 506.1001 ####[facility] [id number] [place], [address] White blood cell (WBC) count Ordered By: Ana Casiano on 05-23-2024 WBC (Bld) [#/Vol] 5.2 10*3/uL 4.4-11.0 [facility] [id number] 04-01-2024 [id number] HNO ID: [id number] Author: MARIYA CHAVEZ RN Service: ? Author Type: Registered Nurse Type: [id number] Filed: 04/01/2024 12:51 Note Text: The patient received a copy of Colonoscopy discharge instructions that contain information for how to contact the physician who performed the procedure and when to seek medical care. Normal [facility] Colonoscopyon 04-01-2024 Colonoscopy [facility] Gastrointestinal Endoscopy Patient Name: Maria Luz Santana Procedure Date: 04/01/2024 11:58 AM Date of : 1950 Admit Type: Outpatient Age: 73 Gender: Male Note Status: Finalized Procedure: Colonoscopy Indications: Positive Cologuard test Providers: Dominic Gonzalez MD Patient Profile: This is a 73 year old male. Refer to note in patient chart for documentation of history and physical. Last Colonoscopy: 2014. Referring Physician: Connie Ambrose (Referring MD) Medicines: Fentanyl 100 micrograms IV, Midazolam 5 mg IV, Diphenhydramine 50 mg IV Complications: No immediate complications. Estimated blood loss: Minimal. Requesting Provider: Procedure: Pre-Anesthesia Assessment: - Prior to the procedure, a History and Physical was performed, and patient medications and allergies were reviewed. The patient's tolerance of previous anesthesia was also reviewed. The risks and benefits of the procedure and the sedation options and risks were discussed with the patient. All questions were answered, and informed consent was obtained. Prior Anticoagulants: The patient has taken no anticoagulant or antiplatelet agents. ASA Grade Assessment: III - A patient with severe systemic disease. After reviewing the risks and benefits, the patient was deemed in satisfactory condition to undergo the procedure. After I obtained informed consent, the scope was passed under direct vision. Throughout the procedure, the patient's blood pressure, pulse, and oxygen saturations were monitored continuously. The Colonoscope was introduced through the anus and advanced to 2 cm into the ileum. The colonoscopy was performed without difficulty. The patient tolerated the procedure well. The quality of the bowel preparation was adequate to identify polyps greater than 5 mm in size. The terminal ileum, ileocecal valve, appendiceal orifice, and rectum were photographed. Moderate Sedation: Moderate (conscious) sedation was personally administered by the endoscopist. The following parameters were monitored: oxygen saturation, heart rate, blood pressure, respiratory rate, EKG, adequacy of pulmonary ventilation, and response to care. Total physician intraservice time was 25 minutes. The administration of moderate sedation was initiated at 12:00. Findings: The perianal and digital rectal examinations were normal. A small (4-6 mm) polyp was found in the rectum. The polyp was sessile. The polyp was removed with a cold snare. Resection and retrieval were complete. To prevent bleeding post-intervention, one hemostatic clip was successfully placed. Clip rn transition: Keepcon. There was no bleeding at the end of the procedure. Non-bleeding internal hemorrhoids were found during retroflexion. The hemorrhoids were mild and small. The terminal ileum appeared normal. The exam was otherwise without abnormality. Impression: - One small (4-6 mm) polyp in the rectum, removed with a cold snare. Resected and retrieved. Clip was placed. Clip rn transition: Keepcon. - Non-bleeding internal hemorrhoids. - The examined portion of the ileum was normal. - The examination was otherwise normal. Recommendation: - Patient has a contact number available for emergencies. The signs and symptoms of potential delayed complications were discussed with the patient. Return to normal activities tomorrow. Written discharge instructions were provided to the patient. - Resume previous diet. - Continue present medications. - Await pathology results. - Repeat colonoscopy in 5 years for surveillance. - Return to referring provider at appointment to be scheduled. Procedure Code(s): --- Professional --- 54133, Colonoscopy, flexible; with removal of tumor(s), polyp(s), or other lesion(s) by snare technique G0500, Moderate sedation services provided by the same physician or other qualified health overnight caregiver performing a gastrointestinal endoscopic service that sedation supports, requiring the presence of an independent trained observer to assist in the monitoring of the patient's level of consciousness and physiological status; initial 15 minutes of intra-service time; patient age 5 years or older (additional time may be reported with 65856, as appropriate) 81505, Moderate sedation; each additional 15 minutes intraservice time Diagnosis Code(s): --- Professional --- D12.8, Benign neoplasm of rectum K64.8, Other hemorrhoids R19.5, Other fecal abnormalities CPT copyright 2020 [employer]. All rights reserved. The codes documented in this report are preliminary and upon global climate change analyst review may be revised to meet current compliance requirements. Attending Participation: I personally performed the entire procedure. Scope In: 12:05:10 PM Scope Out: 12:25:56 PM MD Dominic Barney MD 04/01/2024 12:29:41 PM (more content not included)... Normal [facility] Flexible sigmoidoscopy study on 04-01-2024 [facility] Gastrointestinal Endoscopy Patient Name: Maria Luz Santana Procedure Date: 04/01/2024 11:58 AM Date of : 1950 Admit Type: Outpatient Age: 73 Gender: Male Note Status: Finalized Procedure: Colonoscopy Indications: Positive Cologuard test Providers: Dominic Gonzalez MD Patient Profile: This is a 73 year old male. Refer to note in patient chart for documentation of history and physical. Last Colonoscopy: 2014. Referring Physician: Connie Ambrose (Referring MD) Medicines: Fentanyl 100 micrograms IV, Midazolam 5 mg IV, Diphenhydramine 50 mg IV Complications: No immediate complications. Estimated blood loss: Minimal. Requesting Provider: Procedure: Pre-Anesthesia Assessment: - Prior to the procedure, a History and Physical was performed, and patient medications and allergies were reviewed. The patient's tolerance of previous anesthesia was also reviewed. The risks and benefits of the procedure and the sedation options and risks were discussed with the patient. All questions were answered, and informed consent was obtained. Prior Anticoagulants: The patient has taken no anticoagulant or antiplatelet agents. ASA Grade Assessment: III - A patient with severe systemic disease. After reviewing the risks and benefits, the patient was deemed in satisfactory condition to undergo the procedure. After I obtained informed consent, the scope was passed under direct vision. Throughout the procedure, the patient's blood pressure, pulse, and oxygen saturations were monitored continuously. The Colonoscope was introduced through the anus and advanced to 2 cm into the ileum. The colonoscopy was performed without difficulty. The patient tolerated the procedure well. The quality of the bowel preparation was adequate to identify polyps greater than 5 mm in size. The terminal ileum, ileocecal valve, appendiceal orifice, and rectum were photographed. Moderate Sedation: Moderate (conscious) sedation was personally administered by the endoscopist. The following parameters were monitored: oxygen saturation, heart rate, blood pressure, respiratory rate, EKG, adequacy of pulmonary ventilation, and response to care. Total physician intraservice time was 25 minutes. The administration of moderate sedation was initiated at 12:00. Findings: The perianal and digital rectal examinations were normal. A small (4-6 mm) polyp was found in the rectum. The polyp was sessile. The polyp was removed with a cold snare. Resection and retrieval were complete. To prevent bleeding post-intervention, one hemostatic clip was successfully placed. Clip rn transition: Keepcon. There was no bleeding at the end of the procedure. Non-bleeding internal hemorrhoids were found during retroflexion. The hemorrhoids were mild and small. The terminal ileum appeared normal. The exam was otherwise without abnormality. Impression: - One small (4-6 mm) polyp in the rectum, removed with a cold snare. Resected and retrieved. Clip was placed. Clip rn transition: [employer]. - Non-bleeding internal hemorrhoids. - The examined portion of the ileum was normal. - The examination was otherwise normal. Recommendation: - Patient has a contact number available for emergencies. The signs and symptoms of potential delayed complications were discussed with the patient. Return to normal activities tomorrow. Written discharge instructions were provided to the patient. - Resume previous diet. - Continue present medications. - Await pathology results. - Repeat colonoscopy in 5 years for surveillance. - Return to referring provider at appointment to be scheduled. Procedure Code(s): --- Professional --- 72701, Colonoscopy, flexible; wit (more content not included)... [facility] Radiology Study observation (narrative) [facility] HISTORY PHYSICALon HISTORY PHYSICAL HNO ID: [id number] Author: DOMINIC GONZALEZ MD Service: General Surgery Author Type: Physician Type: H&P Filed: 04/01/2024 11:53 Note Text: HISTORY AND PHYSICAL Maria Luz Santana II : 1950 REFERRING PHYSICIAN: Ana Casiano (John) [address] [facility] [address] [id number] CHIEF COMPLAINT: Patient presents with: Consult: Positive cologuard HPI: Maria Luz is a 73 year old male referred for endoscopy. Maria Luz notes + Cologuard. Maria Luz denies abdominal pain.. Maria Luz notes recent history of diarrhea. -states stools have been softer since completing the Cologuard -last 3 days has had episodes of diarrhea in the am AND one other- not bad enough to take anything OTC -denies fevers but notes "he hasn't felt great". 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 Maria Luz denies a change in bowel habits. Maria Luz denies melena. Maria Luz denies bright red blood per rectum. Maria Luz denies hemorrhoids. Maria Luz denies family history of colon issues. Maria Luz also notes an increase in acid reflux since developing diarrhea 3 days ago. Maria Luz follows with [facility] for hx of SVT. Last OV 01/02- no changes made. Denies CP, SOB, dizziness, palpitations, syncope, edema, recent hospitalizations Hx of STEPHANY c/w BiPAP Maria Luz has a hx of Anthony's esophagus which is managed by Dr. Miranda. He has hx of Toupet fundoplication. No longer taking PPIs. Last EGD 09/2023. Maria Luz has undergone prior endoscopy. Last EGD at [facility] with MAC. Impression: - Anthony's esophagus noted. - 3 cm hiatal hernia - appears to be a very small recurrent sliding hiatal hernia. Random esophageal biopsies were obtained due to his recent ongoing issues with Thrush - A Toupet fundoplication was found. The wrap appears intact on retroflexion with no evidence of recurrnece. Biopsied the gastric antrum for h.pylori. - Normal duodenal bulb, first portion of the duodenum, second portion of the duodenum and third portion of the duodenum. CURRENT MEDICATIONS Current Outpatient Medications Medication Sig indapamide (LOZOL) 1.25 mg tablet Take 1 tablet by mouth every afternoon. cranberry fruit (CRANBERRY) 450 mg tab once daily. flaxseed oil (OMEGA 3 ORAL) Take by mouth. Magnesium 200 mg tab Take by mouth once daily. dilTIAZem (CARDIZEM) 60 mg tablet Take 1 tablet by mouth every 12 hours. lisinopril (ZESTRIL) 20 mg tablet Take 1 tablet by mouth every 12 hours. loratadine (CLARITIN) 10 mg tablet Take 10 mg by mouth as needed for cold/allergy symptoms. peg 3350-Electrolytes (GOLYTELY) 236-22.74-6.74 -5.86 gram suspension Take 4,000 mL by mouth one time only for 1 dose. Refer to printed prep instructions from your provider. No current facility-administered medications for this visit. ALLERGIES: Corticosteroids (Glucocorticoids), Egg Derived, Fluconazole, Levaquin [Levofloxacin], Milk Containing Products (Dairy), Omeprazole, Penicillins, Protonix [Pantoprazole], Steroids [Betamethasone Dipropionate], and Uloric [Febuxostat] PAST MEDICAL HISTORY PAST MEDICAL HISTORY Diagnosis Date Allergic rhinitis Anthony's esophagus without dysplasia 12/22/2022 Benign enlargement of prostate CAD (coronary artery disease) Cancer of kidney (HCC) Gallstones 05/16/[address] GERD (gastroesophageal reflux disease) Gout Hiatal hernia 12/22/2022 medium sized; surgically repaired 05/12/23 History of anemia Hypertension Hypokalemia Inguinal hernia 05/16/2022 bilateral, small Iron deficiency anemia Lesion of left femur Migraines Sleep apnea wears bipap SVT (supraventricular tachycardia) (HCC) PAST SURGICAL HISTORY PAST SURGICAL HISTORY Procedure Laterality Date 48 HOUR PH STUDY 12/22/2022 Dr. Jairo CARSON 01/18/2015 EGD 01/18/2015 EGD WITH BIOPSY(S) 12/22/2022 medium hiatal hernia; Anthony's without dysplasia; Dr. Gill EGD WITH BIOPSY(S) 09/24/2023 3 cm recurrent hiatal hernia; Dr. Sullivan ESOPHAGEAL MANOMETRY 03/13/2023 Dr. Sullivan EXTENSIVE JAW SURGERY INGUINAL HERNIA REPAIR HX Left 10/11/1979 open LAPS RPR PARAESPHGL HRNA INCL FUNDPLSTY W/MESH 05/12/2023 Toupet; Dr. Sullivan NEPHRECTOMY PARTIAL Left 2020 VASECTOMY UNI/BI SPX W/POSTOP SEMEN EXAMS FAMILY HISTORY FAMILY HISTORY Problem Relation Age of Onset Allergies Mother Diabetes Mother Hypertension Mother Stroke Mother Coronary Artery Disease Father 60 [place] x 3 Blood Disease Father Heart Father Lymphoma Father Diabetes Maternal Grandmother SOCIAL HISTORY Social History Tobacco Use Smoking status: Never Smokeless tobacco: Never Vaping Use Vaping status: Never Used Substance Use Topics Alcohol use: Yes Comment: [id number]-3-6 times monthly Drug use: No REVIEW OF SYMPTOMS: REVIEW OF SYSTEMS: General: The patient denies fatigue, denies weight loss, denies weight gain, denies feeling hot, and feelings of cold. Eyes: The patient denies glaucoma, denies eye in (more content not included)... Normal [facility] Pathology biopsy report Hieu (Tiss)on 04-01-2024 CASE REPORT Normal [facility] Comment on above: Order Comment: Speci april Type: TISSUE SPECIMEN Ordering Facility: Address: [address] [place] [address] Result Comment: Surg ica Pathology Report Case: [id number] Authorizing Provider: Dominic Gonzalez MD Collected: 04/01/2024 12:22 PM Ordering Location: Ambulatory Surgery Received: 04/01/2024 01:10 PM Pathologist: Davi Mary MD Specimen: Rectum, Polyp Performed By: #### 6 6121-5 #### [facility] CLIA [id number] [address] [place] [address] [place] [address] [place] FINAL DIAGNOSIS Normal [facility] Comment on above: Order Comment: Speci men Type: TISSUE SPECIMEN Ordering Facility: Address: [address] [place] [address] Result Comment: A. R ectum, polypectomy: -Fragments of tubular adenoma at 1344 EST Performed By: #### 6 6121-5 #### [facility] CLIA [id number] [address] [place] [address] [place] FINAL PERFORMING LAB Normal [facility] Comment on above: Order Comment: Speci men Type: TISSUE SPECIMEN Ordering Facility: Address: [address] [place] [address] Result Comment: Diag nostic interpretation performed at: [facility], [address] [place] [address] CLIA# [id number] Tube Repairer: Saravanan Luis MD Performed By: #### 6 6121-5 #### [facility] CLIA [id number] [address] [place] [address] [place] [facility] GROSS DESCRIPTION Normal [facility] Comment on above: Order Comment: Speci men Type: TISSUE SPECIMEN Ordering Facility: Address: [address] [place] [address] Result Comment: A. R ectum, Polyp Received in formalin are multiple segments of sin polypoid tissue ranging in size from 0.6 x 0.5 x 0.3 cm to 0.2 x 0.1 x 0.1 cm. No stalks are noted. The lines of resections are noted. The larger specimens are bisected. The smaller specimens are not sectioned. Totally submitted in formalin in four cassettes. SS April 02, 2024 12:03 AM Gross examination performed at [facility], [address] [place] [address] Performed By: #### 6 6121-5 #### [facility] CLIA [id number] [address] [place] [address] [place] CNOVon 03-25-2024 CNOV Office Visit (GENSWS ) MARIA LUZ SANTANA II ([id number]) 1950 M Date Time Provider Department 03/25/24 1:00 PM CONNIE AMBROSE During your visit today, we recorded the following information about you: Pulse Blood pressure Weight Height 58/minute 111/72 91.2 kg 1.778 m Connie Ambrose APRN.[employer] CLEANER 03/25/2024 1:18 PM Signed HISTORY AND PHYSICAL Maria Luz Santana II : 1950 REFERRING PHYSICIAN: Ana Casiano (Jaspal) [address] [facility] [place] [address] [facility] [address] CHIEF COMPLAINT: Patient presents with: Consult: Positive cologuard HPI: Maria Luz is a 73 year old male referred for endoscopy. Maria Luz notes + Cologuard. Maria Luz denies abdominal pain.. Maria Luz notes recent history of diarrhea. -states stools have been softer since completing the Cologuard -last 3 days has had episodes of diarrhea in the am AND one other- not bad enough to take anything OTC -denies fevers but notes "he hasn't felt great". 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 Maria Luz denies a change in bowel habits. Maria Luz denies melena. Maria Luz denies bright red blood per rectum. Maria Luz denies hemorrhoids. Maria Luz denies family history of colon issues. Maria Luz also notes an increase in acid reflux since developing diarrhea 3 days ago. Maria Luz follows with [facility] for hx of SVT. Last OV 01/02- no changes made. Denies CP, SOB, dizziness, palpitations, syncope, edema, recent hospitalizations Hx of STEPHANY c/w BiPAP Maria Luz has a hx of Anthony's esophagus which is managed by Dr. Miranda. He has hx of Toupet fundoplication. No longer taking PPIs. Last EGD 09/2023. Maria Luz has undergone prior endoscopy. Last EGD at [facility] with MAC. Impression: - Anthony's esophagus noted. - 3 cm hiatal hernia - appears to be a very small recurrent sliding hiatal hernia. Random esophageal biopsies were obtained due to his recent ongoing issues with Thrush - A Toupet fundoplication was found. The wrap appears intact on retroflexion with no evidence of recurrnece. Biopsied the gastric antrum for h.pylori. - Normal duodenal bulb, first portion of the duodenum, second portion of the duodenum and third portion of the duodenum. Current Outpatient Medications Medication Sig indapamide (LOZOL) 1.25 mg tablet Take 1 tablet by mouth every afternoon. cranberry fruit (CRANBERRY) 450 mg tab once daily. flaxseed oil (OMEGA 3 ORAL) Take by mouth. Magnesium 200 mg tab Take by mouth once daily. dilTIAZem (CARDIZEM) 60 mg tablet Take 1 tablet by mouth every 12 hours. lisinopril (ZESTRIL) 20 mg tablet Take 1 tablet by mouth every 12 hours. loratadine (CLARITIN) 10 mg tablet Take 10 mg by mouth as needed for cold/allergy symptoms. peg 3350-Electrolytes (GOLYTELY) 236-22.74-6.74 -5.86 gram suspension Take 4,000 mL by mouth one time only for 1 dose. Refer to printed prep instructions from your provider. No current facility-administered medications for this visit. ALLERGIES: Corticosteroids (Glucocorticoids), Egg Derived, Fluconazole, Levaquin [Levofloxacin], Milk Containing Products (Dairy), Omeprazole, Penicillins, Protonix [Pantoprazole], Steroids [Betamethasone Dipropionate], and Uloric [Febuxostat] PAST MEDICAL HISTORY Diagnosis Date Allergic rhinitis Anthony's esophagus without dysplasia 12/22/2022 Benign enlargement of prostate CAD (coronary artery disease) Cancer of kidney (HCC) Gallstones 05/16/[address] GERD (gastroesophageal reflux disease) Gout Hiatal hernia 12/22/2022 medium sized; surgically repaired 05/12/23 History of anemia Hypertension Hypokalemia Inguinal hernia 05/16/2022 bilateral, small Iron deficiency anemia Lesion of left femur Migraines Sleep apnea wears bipap SVT (supraventricular tachycardia) (HCC) PAST SURGICAL HISTORY Procedure Laterality Date 48 HOUR PH STUDY 12/22/2022 Dr. Gill COLONOSCOPY 01/18/2015 EGD 01/18/2015 EGD WITH BIOPSY(S) 12/22/2022 medium hiatal hernia; Anthony's without dysplasia; Dr. Gill EGD WITH BIOPSY(S) 09/24/2023 3 cm recurrent hiatal hernia; Dr. Sullivan ESOPHAGEAL MANOMETRY 03/13/2023 Dr. Sullivan EXTENSIVE JAW SURGERY INGUINAL HERNIA REPAIR HX Left 10/11/1979 open LAPS RPR PARAESPHGL HRNA INCL FUNDPLSTY W/MESH 05/12/2023 Toupet; Dr. Sullivan NEPHRECTOMY PARTIAL Left 2020 VASECTOMY UNI/BI SPX W/POSTOP SEMEN EXAMS FAMILY HISTORY Problem Relation Age of Onset Allergies Mother Diabetes Mother Hypertension Mother Stroke Mother Coronary Artery Disease Father 60 [place] x 3 Blood Disease Father Heart Father Lymphoma Father Diabetes Maternal Grandmother Social History Tobacco Use Smoking status: Never Smokeless tobacco: Never Vaping Use Vaping status: Never Used Substance Use Topics Alcohol use: Yes Comment: [id number]-5-8 times monthly Drug use: No REVIEW OF SYMPTOMS: REVIEW OF SYSTEMS: G (more content not included)... [facility] MARIA LUZ SANTANA II ([id number]) 1950 M Date Time Provider Department 03/25/24 CONNIE AMBROSE [employer] During your visit today, we recorded the following information about you: Marina Pleitez 03/25/2024 2:11 PM Signed 04-01-2024 [facility] provider went over all prep information and gave patient direct number to contact Marina Pleitez Allergies As of Date: 03/25/2024 Noted Allergy Reaction CORTICOSTEROIDS (GLUCOCORTICOIDS) 07/08/2018 14 - Other: See Comments 12 - Shortness of Breath EGG DERIVED 07/08/2018 14 - Other: See Comments FLUCONAZOLE 05/21/2023 5 - Intolerance 12 - Shortness of Breath LEVAQUIN (LEVOFLOXACIN) 03/13/2023 2 - Rash MILK CONTAINING PRODUCTS (DAIRY) 07/08/2018 6 - Diarrhea OMEPRAZOLE 03/13/2023 9 - Itching PENICILLINS 10/01/2013 7 - Swelling Comments: swelling of tongue PROTONIX (PANTOPRAZOLE) 03/13/2023 9 - Itching STEROIDS (BETAMETHASONE DIPROPION*05/10/2015 7 - Swelling Comments: Tongue swelling ULORIC (FEBUXOSTAT) 03/13/2023 2 - Rash Date Reviewed: 03/25/2024 Reviewed by: Connie Ambrose APRN.[employer] - Fully Assessed Reason for Visit: 04-01-2024 [facility] [facility] [Other] Prescriptions as of 05/04/2024 - indapamide (LOZOL) 1.25 mg tablet Take 1 tablet by mouth every afternoon. - cranberry fruit (CRANBERRY) 450 mg tab once daily. - Magnesium 200 mg tab Take by mouth once daily. - dilTIAZem (CARDIZEM) 60 mg tablet Take 1 tablet by mouth every 12 hours. - lisinopril (ZESTRIL) 20 mg tablet Take 1 tablet by mouth every 12 hours. - loratadine (CLARITIN) 10 mg tablet Take 10 mg by mouth as needed for cold/allergy symptoms. 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] 05/05/2023 Tachyarrhythmia [R00.0] 05/05/2023 Migraine with aura [G43.109] 05/05/2023 History of kidney cancer [Z85.528] 05/05/2023 STEPHANY (obstructive sleep apnea) [G47.33] 05/05/2023 Primary hypertension [I10] 05/05/2023 Other specified anemias [D64.89] 05/05/2023 Thrush of mouth and esophagus (HCC) (HCC) [B37*09/24/2023 Encounter Status:Closed by MARINA PLEITEZ on 05/04/24 Normal [facility] CBC-Complete Blood Cnt No Di ffon 03-04-2024 Erythrocyte distribution width (RBC) [Ratio] 13.6 % Normal 11.6-14.6 [facility] Comment on above: Performed By: #### L 501.6710, L101.9900, L100.0500 #### [facility] [address] [place], [address] Hematocrit (Bld) [Volume fraction] 37.2 % Low 40-54 [facility] Comment on above: Performed By: #### L 501.6710, L101.9900, L100.0500 #### [facility] [address] [place], [address] Hemoglobin (Bld) [Mass/Vol] 12.5 g/dL Low 13.0-16.5 [facility] Comment on above: Performed By: #### L 501.6710, L101.9900, L100.0500 #### [facility] [address] [place], [address] MCH (RBC) [Entitic mass] 31.5 pg Normal 27.0-32.0 [facility] Comment on above: Performed By: #### L 501.6710, L101.9900, L100.0500 #### [facility] [address] [place], [address] MCHC (RBC) [Mass/Vol] 33.6 g/dL Normal 32-36 [facility] Comment on above: Performed By: #### L 501.6710, L101.9900, L100.0500 #### [facility] [address] [place], [address] MCV (RBC) [Entitic vol] 93.7 fL Normal 80-94 [facility] Comment on above: Performed By: #### L 501.6710, L101.9900, L100.0500 #### [facility] [address] [place], [address] Platelet mean volume (Bld) [Entitic vol] 9.6 fL Normal 6.2-12.0 [facility] Comment on above: Performed By: #### L 501.6710, L101.9900, L100.0500 #### [facility] [address] [place], [address] Platelets (Bld) [#/Vol] 181 10*3/uL Normal 150-450 [facility] Comment on above: Performed By: #### L 501.6710, L101.9900, L100.0500 #### [facility] [address] [place], [address] RBC (Bld) [#/Vol] 3.97 10*6/uL Low 4.6-6.2 [facility] Comment on above: Performed By: #### L 501.6710, L101.9900, L100.0500 #### [facility] [address] [place], [address] RDW SD 46.8 fl High 35.1-43.9 [facility] Comment on above: Performed By: #### L 501.6710, L101.9900, L100.0500 #### [facility] [address] [place], [address] WBC (Bld) [#/Vol] 5.1 10*3/uL Normal 4.4-11.0 [facility] Comment on above: Performed By: #### L 501.6710, L101.9900, L100.0500 #### [facility] [address] [place], [address] CRPon 03-04-2024 C-REACTIVE PROT < 2.90 Normal 0.0-3.0 [facility] Comment on above: Result Comment: C-Re active Protein (CRP) provides useful information for the diagnosis, therapy and monitoring of inflammatory processes and associated diseases. For the evaluation of Relative Risk for Cardiovascular Disease, a High Sensitivity CRP (HSCRP) should be ordered. Performed By: #### L 501.6710, L101.9900, L100.0500 ####[facility] [address] [place], [address] Erythrocyte Sed Rateon 03-04 SED RATE < 1 Normal 0-20 [facility] Comment on above: Performed By: #### L 501.6710, L101.9900, L100.0500 ####[facility] [address] [place], [address] Erythrocyte distribution wid th ratioOrdered By: Clifford Delgado on 03-04-2024 Erythrocyte distribution width (RBC) [Ratio] 13.6 % 11.6-14.6 [facility] Erythrocyte distribution wid th standard deviationOrdered By: Clifford Delgado on 03-04-2024 Erythrocyte distribution width (RBC) [Ratio] 46.8 fl High 35.1-43.9 [facility] Erythrocyte sedimentation ra teOrdered By: Clifford Delgado on 03-04-2024 ESR (Bld) [Velocity] mm/h 0-20 [facility] Hematocrit Auto (Bld) [Volum e fraction]Ordered By: Clifford Delgado on 03-04-2024 Hematocrit (Bld) [Volume fraction] 37.2 % Low 40-54 [facility] Hemoglobin measurementOrdere d By: Clifford Delgado on 03-04-2024 Hemoglobin (Bld) [Mass/Vol] 12.5 g/dL Low 13.0-16.5 [facility] MCV (mean corpuscular volume ) determinationOrdered By: Clifford Delgado on 03-04-2024 MCV (RBC) [Entitic vol] 93.7 fL 80-94 [facility] Mean corpuscular hemoglobin (MCH) determinationOrdered By: Clifford Delgado on 03-04-2024 MCH (RBC) [Entitic mass] 31.5 pg 27.0-32.0 [facility] Mean corpuscular hemoglobin concentration (MCHC) determinationOrdered By: Clifford Delgado on 03-04-2024 MCHC (RBC) [Mass/Vol] 33.6 g/dL 32-36 [facility] Mean platelet volume determi nationOrdered By: Clifford Delgado on 03-04-2024 Platelet mean volume (Bld) [Entitic vol] 9.6 fL 6.2-12.0 [facility] Platelet countOrdered By: Kirstie Delgado on 03-04-2024 Platelets (Bld) [#/Vol] 181 10*3/uL 150-450 [facility] RBC Auto (Bld) [#/Vol]Ordere d By: Clifford Delgado on 03-04-2024 RBC (Bld) [#/Vol] 3.97 10*6/uL Low 4.6-6.2 [facility] White blood cell (WBC) count Ordered By: Clifford Delgado on 03-04-2024 WBC (Bld) [#/Vol] 5.1 10*3/uL 4.4-11.0 [facility] PT D/C Summary (1)on 025 PT D/C Summary (1) [facility] [place] [address] / REHABILITATION SERVICES DISCHARGE SUMMARY MR#: [id number] Acct: [id number] Name: MARIA LUZ SANTANA II Rep #: [id number] : 1950 73 From: Kathi DUARTE Referring Dr.: Dr. Ana Casiano MD Status: REG R CR Insurance: MEDICARE PART A B MEDICARE SUPPLEMENT PLAN Discharge Summary D/C summary: It has been my pleasure to treat MARIA LUZ SANTANA II referred by Dr. Ana Casiano MD, with the diagnosis of L buttock pain/ hip and LBP/L leg acquired shortening for a total of 10 visit(s). Discharge Date: 02/29/24 Please see the following information for a summary of their discharge status. Subjective Subjective: Pt reports that he is doing better. If he does his exercises 3X/ week. Once in awhile he will get a twinge in his L hip, he will kind of feel it and it will go away. He is not sure what brings it on. He has only had the sciatica once or twice since coming here. His exercises make his back pain much better. Pain R buttock: Pain Intensity (Out of 10): 0 L Leg pain: Pain Intensity (Out of 10): 0 back pain: Pain Intensity (Out of 10): 0 L buttock: Pain Intensity (Out of 10): 0 Overall Improvement % Improvement: 100 Objective Objective/Function: LE MMT: R hip flex 15.7 and L 13.1 R knee ext 26.7 and L 25.4 R knee flex 14.1 and L 11.8 R hip ext 15.9 and L 11.8 bridge full ROM Hip flexor stretch: good length B Piriformis stretch: good length B Goals Goal 1:: I HEP Goal Progress: Goal Met Goal 2:: Decrease B buttock pain with walking by 50% Goal Progress: Goal Met Goal 3:: Increase flexibility of B Quad/hip flexors and piriformis B Goal Progress: Goal Met Goal 4:: Increase LE strength (at the time of the eval: LE MMT: R hip flex 15.7 and L 13.1 R knee ext 25.8 and L 16.8 R knee flex 11.3 and L 10.4 R hip flex 13.4 and L 6 R hip ext 12.8 and L 9.5 bridge 1/2 normal ROM) Goal Progress: Goal Met Plan Plan: DC PT to HEP D/C Information Discharge Comments: DC PT to HEP d/c sentence: If there are questions or concerns regarding this patient's physical therapy, please feel free to call me at [phone]. Thank you for the referral of this patient. Sincerely, GERALD Erazo Balance/Gait/Functional tests Balance/Special Test Scores Lower Extremity Functional Score: 60 Improvement % Improvement: 100 02/29/24 0945 CC: Dr. Ana Casiano MD Signed Normal [facility] Inital Evaluation (1) - PTon 01-29-2024 Inital Evaluation (1) - PT [facility] [place] [address] / REHABILITATION SERVICES INITIAL EVALUATION MR#: [id number] Acct: [id number] Name: MARIA LUZ SANTANA II Rep #: [id number] : 1950 73 From: Kathi Stoner MPT Referring Dr.: Dr. Ana Casiano MD Status: REG R CR Insurance: MEDICARE PART A B MEDICARE SUPPLEMENT PLAN Patient's Visit Information Visit Information Visit Information: MARIA LUZ SANTANA II is a 73 year old M referred to Physical Therapy by Dr. Ana Casiano MD with a diagnosis of L buttock pain/ hip and LBP/L leg acquired shortening. Date of Evaluation: 01/29/24 Physical Therapist: GERALD Erazo Visit Plan Frequency: 2x /Week Duration: 2 Months Plan: 2X/ week for 8 weeks for stretching of B hip flexors and piriformis and see if that helps to decrease B leg pain with walking/sitting etch. May try some flexion based repeated exercises and see if there is a stenosis component if not getting anywhere with stretching piriformis. Core stability and hip strength. Pt will bring in a new heel lift and we can tray and adjust it for his leg length from previous radha placed in L femur (per pt) with HEP. May also try E-stim and dry needling if needed. HEP: sitting piriformis stretch (knee to opp shoulder), supine leg off the bed hip flexor stretch, bridges Subjective Subjective: Pt has pain in B buttocks if he walks too much. It feels muscular and very painful. He gets a shooting pain down his L leg, in the groin and down the front of the L leg. He has a radha in his L leg and had an x-ray taken and it was good. This pain all started last week. He did not do anything different last week. His L leg is shorter. He has an orthotic in his L shoe but he does not think it is high enough. He can sleep at night. He has some pain on the L sitting in a chair. But def walking is the worst. He has been trying to walk straighter the last few days and it has been better. Stairs bother it and laying on that side bothers it. He has no N T. Pain R buttock: Pain Intensity (Out of 10): 0 L Leg pain: Pain Intensity (Out of 10): 2 back pain: Pain Intensity (Out of 10): 0 L buttock: Pain Intensity (Out of 10): 4 Objective Objective: Gait: Walks with decrease stance time on the L LE Trunk AROM: flex 50%, ext 10%, Rot B 25%, SB B 25% Pt is able to heel and toe raise but has decreased ability to raise his toes LE MMT: R hip flex 15.7 and L 13.1 R knee ext 25.8 and L 16.8 R knee flex 11.3 and L 10.4 R hip flex 13.4 and L 6 R hip ext 12.8 and L 9.5 bridge 1/2 normal ROM Tight HS and hip flexors/Quads/Piriformi s B Balance/Special Test Scores Lower Extremity Functional Score: 46 Goals Goal 1:: I HEP Goal Time Frame: 6-8 Weeks Goal 2:: Decrease B buttock pain with walking by 50% Goal Time Frame: 6-8 Weeks Goal 3:: Increase flexibility of B Quad/hip flexors and piriformis B Goal Time Frame: 6-8 Weeks Goal 4:: Increase LE strength (at the time of the eval: LE MMT: R hip flex 15.7 and L 13.1 R knee ext 25.8 and L 16.8 R knee flex 11.3 and L 10.4 R hip flex 13.4 and L 6 R hip ext 12.8 and L 9.5 bridge 1/2 normal ROM) Goal Time Frame: 6-8 Weeks Rehabilitation Potential Rehabilitation Potential: Good Anticipated Interventions Text: Thank you for the opportunity to evaluate your patient. For Medicare and Medicare HMO plans, please review the plan of care and approve it. It will need to be FAXED BACK to us at [phone] for Medicare purposes. For Medicare only, by signing this I certify the plan of care. Please let me know if there are questions or concerns regarding this plan of care. Physician Signature: Date: 01/29/24 1352 CC: Dr. Ana Casiano MD Signed Normal [facility] HIP, UNI W/ Pelvis 2-3 Views on 01-25-2024 HIP, UNI W/ Pelvis 2-3 Views [facility] Imaging Services [address] [place] [address] HIP, UNI W/ Pelvis 2-3 Views MR#: [id number] Acct: [id number] Name: MARIA LUZ SANTANA II Rep #: [id number] : 1950 M 73 From: Tirso Cruz MD PCP: Dr. Ana Casiano MD Status: REG CLI Study: HIP, UNI W/ Pelvis 2-3 Views Date of Exam: Exam# [id number] Ordering [place]: [place] [id number] STUDY: X-RAY - PELVIS AND LEFT HIP REASON FOR EXAM: Male, 73 years old. Pain in buttock, hx surgery, left TECHNIQUE: 6 views of the pelvis and left hip. COMPARISON: Left femur radiographs dated 11/23/2023. FINDINGS: There is a non-specific bowel gas pattern. Normal visualized soft tissue structures. Normal bilateral iliac wings, sacroiliac joints and visualized sacrum. Normal bilateral superior and inferior pubic rami. Normal pubic symphysis. Normal bilateral ischial tuberosities. Again seen is an intramedullary nail/radha in the left femur with left hip screws in place. There is no adjacent acute fracture. There is mild degenerative arthrosis of the hip joints bilaterally with joint space narrowing and marginal osteophyte formation. RAD/HIP, UNI W/ Pelvis 2-3 Views IMPRESSION: Stable ORIF hardware in the left femur, with no adjacent acute fracture. Mild degenerative arthrosis of the hip joints bilaterally. Electronically Signed: Tirso Cruz MD at 11:14 EST , CC: Dr. Ana Casiano MD Patient Intake Representative: Signed Normal [facility] Basic Metabolic Profile (BMP )on 01-14-2024 BUN/CRE 14.0 RATIO Normal 10-20 [facility] Comment on above: Order Comment: 'TROP ' Serial specimen #1, #2 or #3: 1 Performed By: #### L 501.4020, L500.2500, L300.8000, L100.0100 #### [facility] [address] [place], [address] CA,Total 9.4 mg/dL Normal 8.5-10.1 [facility] Comment on above: Order Comment: 'TROP ' Serial specimen #1, #2 or #3: 1 Performed By: #### L 501.4020, L500.2500, L300.8000, L100.0100 #### [facility] [address] [place], [address] Chloride [Moles/Vol] 108 mmol/L High 98-107 [facility] Comment on above: Order Comment: 'TROP ' Serial specimen #1, #2 or #3: 1 Performed By: #### L 501.4020, L500.2500, L300.8000, L100.0100 #### [facility] [address] [place], [address] CO2 [Moles/Vol] 27.0 mmol/L Normal 21.0-32.0 [facility] Comment on above: Order Comment: 'TROP ' Serial specimen #1, #2 or #3: 1 Performed By: #### L 501.4020, L500.2500, L300.8000, L100.0100 #### [facility] [address] [place], [address] Creatinine [Mass/Vol] 1.07 mg/dL Normal 0.70-1.30 [facility] Comment on above: Order Comment: 'TROP ' Serial specimen #1, #2 or #3: 1 Result Comment: The validity of the calculated GFR GFRAA in patients over 70 years has not been determined. Clinical correlation is essential. Performed By: #### L 501.4020, L500.2500, L300.8000, L100.0100 #### [facility] [address] [place], [address] ECRCL 67.63 ml/min Normal [facility] Comment on above: Order Comment: 'TROP ' Serial specimen #1, #2 or #3: 1 Performed By: #### L 501.4020, L500.2500, L300.8000, L100.0100 #### [facility] [address] [place], [address] EST GFR - AA 87 mL/min Normal >60 [facility] Comment on above: Order Comment: 'TROP ' Serial specimen #1, #2 or #3: 1 Result Comment: Afri can Italian GFR Calc Performed By: #### L 501.4020, L500.2500, L300.8000, L100.0100 #### [facility] [address] [place], [address] GAP 6 Normal 5-15 [facility] Comment on above: Order Comment: 'TROP ' Serial specimen #1, #2 or #3: 1 Performed By: #### L 501.4020, L500.2500, L300.8000, L100.0100 #### [facility] [address] [place], [address] GFR/1.73 sq M.predicted among non-blacks MDRD (S/P/Bld) [Vol rate/Area] 72 mL/min/{1.73_m2} Normal >60 [facility] Comment on above: Order Comment: 'TROP ' Serial specimen #1, #2 or #3: 1 Result Comment: Non- GFR Calc Performed By: #### L 501.4020, L500.2500, L300.8000, L100.0100 #### [facility] [address] [place], [address] Glucose [Mass/Vol] 105 mg/dL Normal 74-106 [facility] Comment on above: Order Comment: 'TROP ' Serial specimen #1, #2 or #3: 1 Result Comment: Fast ing Glucose result from 100 to 125 mg/dL suggests IMPAIRED HOMEOSTASIS per A.D.A. criteria. Performed By: #### L 501.4020, L500.2500, L300.8000, L100.0100 #### [facility] [address] [place], [address] Potassium [Moles/Vol] 3.7 mmol/L Normal 3.5-5.1 [facility] Comment on above: Order Comment: 'TROP ' Serial specimen #1, #2 or #3: 1 Performed By: #### L 501.4020, L500.2500, L300.8000, L100.0100 #### [facility] [address] [place], [address] Sodium [Moles/Vol] 141 mmol/L Normal 136-145 [facility] Comment on above: Order Comment: 'TROP ' Serial specimen #1, #2 or #3: 1 Performed By: #### L 501.4020, L500.2500, L300.8000, L100.0100 #### [facility] [address] [place], [address] Urea nitrogen [Mass/Vol] 15 mg/dL Normal 7-18 [facility] Comment on above: Order Comment: 'TROP ' Serial specimen #1, #2 or #3: 1 Performed By: #### L 501.4020, L500.2500, L300.8000, L100.0100 #### [facility] [address] [place], [address] CBC W/Diff, Automatedon 12-0 Absolute Lymph 1.01 X10 3/uL Normal 0.83-4.51 [facility] Comment on above: Performed By: #### L 501.4020, L500.2500, L300.8000, L100.0100 #### [facility] [address] [place], [address] Absolute Neut 2.7 X10 3/uL Normal 2.0-7.7 [facility] Comment on above: Performed By: #### L 501.4020, L500.2500, L300.8000, L100.0100 #### [facility] [address] [place], [address] Basophils/100 WBC (Bld) 0.9 % Normal 0-1 [facility] Comment on above: Performed By: #### L 501.4020, L500.2500, L300.8000, L100.0100 #### [facility] [address] [place], [address] Eosinophils/100 WBC (Bld) 2.4 % Normal 0-5 [facility] Comment on above: Performed By: #### L 501.4020, L500.2500, L300.8000, L100.0100 #### [facility] [address] [place], [address] Erythrocyte distribution width (RBC) [Ratio] 14.0 % Normal 11.6-14.6 [facility] Comment on above: Performed By: #### L 501.4020, L500.2500, L300.8000, L100.0100 #### [facility] [address] [place], [address] Hematocrit (Bld) [Volume fraction] 41.3 % Normal 40-54 [facility] Comment on above: Performed By: #### L 501.4020, L500.2500, L300.8000, L100.0100 #### [facility] [address] [place], [address] Hemoglobin (Bld) [Mass/Vol] 14.2 g/dL Normal 13.0-16.5 [facility] Comment on above: Performed By: #### L 501.4020, L500.2500, L300.8000, L100.0100 #### [facility] [address] [place], [address] IG% 0.500 Normal 0.0-0.9 [facility] Comment on above: Result Comment: IG% - Immature Granulocytes (promyelocytes, myelocytes and metamyelocytes) > 1% indicates that a LEFT SHIFT is Present. Performed By: #### L 501.4020, L500.2500, L300.8000, L100.0100 #### [facility] [address] [place], [address] Lymphocytes/100 WBC (Bld) 23.8 % Normal 19-41 [facility] Comment on above: Performed By: #### L 501.4020, L500.2500, L300.8000, L100.0100 #### [facility] [address] [place], [address] MCH (RBC) [Entitic mass] 32.3 pg High 27.0-32.0 [facility] Comment on above: Performed By: #### L 501.4020, L500.2500, L300.8000, L100.0100 #### [facility] [address] [place], [address] MCHC (RBC) [Mass/Vol] 34.4 g/dL Normal 32-36 [facility] Comment on above: Performed By: #### L 501.4020, L500.2500, L300.8000, L100.0100 #### [facility] [address] [place], [address] MCV (RBC) [Entitic vol] 93.9 fL Normal 80-94 [facility] Comment on above: Performed By: #### L 501.4020, L500.2500, L300.8000, L100.0100 #### [facility] [address] [place], [address] Monocytes/100 WBC (Bld) 9.2 % Normal 0-10 [facility] Comment on above: Performed By: #### L 501.4020, L500.2500, L300.8000, L100.0100 #### [facility] [address] [place], [address] Neutrophils/100 WBC (Bld) 63.2 % Normal 47-70 [facility] Comment on above: Performed By: #### L 501.4020, L500.2500, L300.8000, L100.0100 #### [facility] [address] [place], [address] Nucleated RBC (Bld) [#/Vol] 0 10*3/uL Normal 0-5 [facility] Comment on above: Performed By: #### L 501.4020, L500.2500, L300.8000, L100.0100 #### [facility] [address] [place], [address] Platelet mean volume (Bld) [Entitic vol] 9.3 fL Normal 6.2-12.0 [facility] Comment on above: Performed By: #### L 501.4020, L500.2500, L300.8000, L100.0100 #### [facility] [address] [place], [address] Platelets (Bld) [#/Vol] 157 10*3/uL Normal 150-450 [facility] Comment on above: Performed By: #### L 501.4020, L500.2500, L300.8000, L100.0100 #### [facility] [address] [place], [address] RBC (Bld) [#/Vol] 4.40 10*6/uL Low 4.6-6.2 [facility] Comment on above: Performed By: #### L 501.4020, L500.2500, L300.8000, L100.0100 #### [facility] [address] [place], [address] RDW SD 48.1 fl High 35.1-43.9 [facility] Comment on above: Performed By: #### L 501.4020, L500.2500, L300.8000, L100.0100 #### [facility] [address] [place], [address] WBC (Bld) [#/Vol] 4.3 10*3/uL Low 4.4-11.0 [facility] Comment on above: Performed By: #### L 501.4020, L500.2500, L300.8000, L100.0100 #### [facility] [address] [place], [address] Chest PA and Lateralon 01-13 Chest PA and Lateral [facility] Imaging Services [address] [place] [address] Chest PA and Lateral MR#: [id number] Acct: [id number] Name: MARIA LUZ SANTANA II Rep #: [id number] : 1950 M 73 From: Everton Peters MD PCP: Dr. Ana Casiano MD Status: [facility] Study: Chest PA and Lateral Date of Exam: 01/14/24 Exam# [id number] Ordering Dr: [place] [id number] STUDY: X-RAY CHEST REASON FOR EXAM: Male, 73 years old. Cough, left-sided pleuritic chest pain TECHNIQUE: PA and lateral views of the chest. COMPARISON: 05/01/2023 FINDINGS: EKG leads overlie the chest Lungs are hyperexpanded with chronic interstitial changes, no superimposed acute pulmonary process. Normal size heart. Normal mediastinum and byron. Normal visualized pulmonary arteries. There is atherosclerotic calcification of the aortic arch with tortuosity. There are diffuse degenerative changes of the visualized thoracic spine. Normal visualized ribs, clavicles, and shoulders. There is no demonstrated abnormality of the visualized soft tissue structures of the upper abdomen. RAD/Chest PA and Lateral IMPRESSION: Hyperexpanded lungs with chronic interstitial changes, no superimposed acute pulmonary process Electronically Signed: Rosales Peters MD at 8:10 EST , CC: Dr. Ana Casiano MD; Dr. Rell Valentine MD Patient Intake Representative: Signed Normal [facility] D-Dimer Quantitative (DVT/PE )on 01-14-2024 D-DIMER QUANT 0.32 FEU/ug/m Normal 0.27-0.49 [facility] Comment on above: Result Comment: NORM AL D-Dimer level (<0.50) indicates no DVT or PE. Performed By: #### L 501.4020, L500.2500, L300.8000, L100.0100 #### [facility] [address] [place], [address] Emergency Department Summary on 01-14-2024 Emergency Department Summary [facility] Medical Records Department [address] [place] [address] Emergency Department Summary 01/14/24 MR#: [id number] Acct: [id number] Name: MARIA LUZ SANTANA TL Rep #: [id number] : 1950 73 From: Rell Valentine MD PCP: Dr. Ana Casiano MD Status:REG ER Location: ED HPI History of Present Illness Chief Complaint: Chest Pain Detail of Chief Complaint: Left-sided pleuritic chest point with shortness of breath Informant: patient Onset/Context/Timing Onset: Today (1599) Context: Sudden Onset Timing: Continuous Quality: Pain left side of chest near the superior aspect of the left pectoralis paige Location: Left pectoralis muscle and left arm Current Severity: Mild Maximum Severity: Moderate Worsened by: Breathing Relieved by: Nothing Associated Symptoms Associated Symptoms: Shortness of breath Narrative Narrative: Patient is a 73-year-old male. He has history of hypertension, hypercholesterolemia and gout. He presents with left-sided chest pain near the superior aspect of the left pectoralis muscle that has been constant since 1600. Onset at rest. He does report increased pain with breathing. He also complains of discomfort proximal left arm. He does report shortness of breath. He states this has happened in the past and no etiology has been found. He had a long distance trip to [place] this past Thanksgiving. He denies leg pain, swelling discoloration. He denies history of VTE. He denies fever, chills night sweats. The cough is productive of clear-colored sputum. He reports this is a chronic issue. He states he is never smoked. He is status post hiatal hernia surgery. He states since that surgery he has lost approximately 70 pounds and is not on his much blood pressure medication. He denies orthopnea or PND. He does report increased shortness of breath with activity. Prior similar symptoms: Yes Recent Illness[facility] : [facility] Medical History Right foot strain Barretts esophagus (01/05/23) Cancer Alcohol use Dietary restriction History of hiatal hernia History of irregular heartbeat History of renal cell cancer Spinal stenosis History of renal disease Wears hearing aid Wears glasses Gout Migraine headache Difficulty swallowing Non-smoker Chronic cough Seasonal allergies Personal history of supraventricular tachycardia History of stress test Cardiology follow-up encounter Obesity Hyperuricemia Eczema Hyperlipidemia Essential hypertension Fracture of right patella Fracture of right radius Osteoporosis Fracture of radial head, left, closed Closed left hip fracture GERD (gastroesophageal reflux disease) Home Medications ???Medication ???Instructions ???Recorded ???Last Taken ???Type lisinopril 20 mg tablet 20 mg PO BID HTN 02/20/21 06/12/21 History ubrogepant 100 mg tablet (Ubrelvy) 100 mg PO ONCE PRN migraines 02/20/21 Unknown History azelastine 137 mcg (0.1 %) nasal 1 spray intranasal BID PRN 02/24/23 Unknown History spray Allergies allopurinol 100 mg tablet 200 mg PO DAILY PRN Gout 05/01/23 Unknown History diltiazem HCl 120 mg 120 mg PO BID 08/14/23 Unknown History capsule,extended release 24 hr, controlled (DILT-XR) Allergy/AdvReac Type Severity Reaction Status Date / Time Egg Derived Allergy Severe Food Verified 01/14/24 07:27 Allergy febuxostat (From Uloric) Allergy Intermediate Other Verified 01/14/24 07:27 Penicillins Allergy Anaphylaxis Verified 01/14/24 07:27 omeprazole AdvReac Intermediate Rash Verified 01/14/24 07:27 pantoprazole (From Protonix) AdvReac Intermediate Hives Verified 01/14/24 07:27 Corticosteroids AdvReac Hypertensio Verified 01/14/24 07:27 (Glucocorticoids) (steroids) n Milk Containing Products AdvReac Diarrhea Verified 01/14/24 07:27 (Dairy) (Milk Containing Products) Family History Mother Diabetes Dementia Heart disease tachycardia Father Heart disease Leukemia Surgical History History of repair of hiatal hernia History of esophagogastroduodenosc opy (EGD) History of colonoscopy History of partial nephrectomy History of mandibular surgery History of hip surgery Social History household members: spouse current occupational status: retired Smoking Status: Never smoker alcohol intake: current alcohol intake frequency: a few times a week Alcohol type: beer substance use type: does not use diet: lactose free caffeine: No what type of physical activity do you participate in: walking and bicycling frequency: 3-4 times per week ROS ROS ED Constitutional Constitutional ED: Denies chills, fever(s), subjec (more content not included)... Normal [facility] L501.4020on 01-14-2024 TROPONIN-I HS 5 pg/mL Normal 3.0-78.0 [facility] Comment on above: Order Comment: 'TROP ' Serial specimen #1, #2 or #3: 1 Result Comment: Sharan rodriguez Note: New Test Units and Gender Specific Reference Ranges. For more information see Policy Stat Procedure [employer] High Sensitivity Troponin (TNIH) and attachments. Performed By: #### L 501.4020, L500.2500, L300.8000, L100.0100 #### [facility] [address] [place], [address] PT D/C Summary (1)on 024 PT D/C Summary (1) [facility] Physical Therapy [facility] [address] [place] [address] / REHABILITATION SERVICES DISCHARGE SUMMARY MR#: [id number] Acct: [id number] Name: MARIA LUZ SANTANA II Rep #: [id number] : 1950 73 From: Kathi DUARTE Referring Dr.: Dr. Ana Casiano MD Status: REG R CR Insurance: MEDICARE PART A B MEDICARE SUPPLEMENT PLAN Discharge Summary D/C summary: It has been my pleasure to treat MARIA LUZ SANTANA II referred by Dr. Ana Casiano MD, with the diagnosis of migraine/cervicogenic headaches for a total of 8 visit(s). Discharge Date: 01/11/24 Please see the following information for a summary of their discharge status. Subjective Subjective: He has had no BECERRIL/Migraines but did have some side of head pressure. He still has to do 1/2 hour to 40 min of massage to upper c-spine everyday. He is more aware of posture and head position. He does not have the foggy disoriented feeling. Pain Head pressure: Pain Intensity (Out of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 WITHOUT INTRAVENOUS CONTRAST CLINICAL INDICATION: headache TECHNIQUE: Multiple axial images were obtained of the head without intravenous contrast. This CT exam was performed using one or more of the following dose reduction techniques: automated exposure control, adjustment of the mA and/or kV according to patient size, and/or use of iterative reconstruction technique. RADIATION DOSE: CTDIvol = 44.99 mGy, DLP = 883.29 mGy-cm COMPARISON: 12/30/2022. FINDINGS: BRAIN AND EXTRA-AXIAL SPACES: Unremarkable. No intra- or extra-axial hemorrhage. No evidence of acute infarct. No intracranial mass or mass effect. There is preservation of the chawla/white matter interface. Posterior fossa structures are unremarkable. Ventricles are appropriate for age. No hydrocephalus. Basal cisterns are patent. BONES/JOINTS: Unremarkable. No discrete lytic or blastic abnormalities. SINUSES: Unremarkable as visualized. Clear. MASTOID AIR CELLS: Unremarkable. Clear. ORBITS: Visualized globes, extraocular muscles, optic nerves and retrobulbar fat appear unremarkable. CT/Brain/Head without Contrast IMPRESSION: No acute intracranial abnormality. Electronically Signed: Damien Khan MD at 0:38 EDT , CC: Dr. Ana Casiano MD; Roman Odonnell DO Patient Intake Representative: Signed Normal [facility] CBC W/Diff, Automatedon 10-10 Absolute Lymph 1.39 X10 3/uL Normal 0.83-4.51 [facility] Comment on above: Performed By: #### L 500.2500, L501.6710, L100.0100 ####[facility] [address] [place], [address] Absolute Neut 2.8 X10 3/uL Normal 2.0-7.7 [facility] Comment on above: Performed By: #### L 500.2500, L501.6710, L100.0100 ####[facility] [address] [place], [address] Basophils/100 WBC (Bld) 0.8 % Normal 0-1 [facility] Comment on above: Performed By: #### L 500.2500, L501.6710, L100.0100 ####[facility] [address] [place], [address] Eosinophils/100 WBC (Bld) 3.1 % Normal 0-5 [facility] Comment on above: Performed By: #### L 500.2500, L501.6710, L100.0100 ####[facility] [address] [place], [address] Erythrocyte distribution width (RBC) [Ratio] 14.6 % Normal 11.6-14.6 [facility] Comment on above: Performed By: #### L 500.2500, L501.6710, L100.0100 ####[facility] [address] [place], [address] Hematocrit (Bld) [Volume fraction] 36.8 % Low 40-54 [facility] Comment on above: Performed By: #### L 500.2500, L501.6710, L100.0100 ####[facility] [address] [place], [address] Hemoglobin (Bld) [Mass/Vol] 11.8 g/dL Low 13.0-16.5 [facility] Comment on above: Performed By: #### L 500.2500, L501.6710, L100.0100 ####[facility] [address] [place], [address] IG% 0.200 Normal 0.0-0.9 [facility] Comment on above: Result Comment: IG% - Immature Granulocytes (promyelocytes, myelocytes and metamyelocytes) > 1% indicates that a LEFT SHIFT is Present. Performed By: #### L 500.2500, L501.6710, L100.0100 ####[facility] [address] [place], [address] Lymphocytes/100 WBC (Bld) 28.8 % Normal 19-41 [facility] Comment on above: Performed By: #### L 500.2500, L501.6710, L100.0100 ####[facility] [address] [place], [address] MCH (RBC) [Entitic mass] 30.2 pg Normal 27.0-32.0 [facility] Comment on above: Performed By: #### L 500.2500, L501.6710, L100.0100 ####[facility] [address] [place], [address] MCHC (RBC) [Mass/Vol] 32.1 g/dL Normal 32-36 [facility] Comment on above: Performed By: #### L 500.2500, L501.6710, L100.0100 ####[facility] [address] [place], [address] MCV (RBC) [Entitic vol] 94.1 fL High 80-94 [facility] Comment on above: Performed By: #### L 500.2500, L501.6710, L100.0100 ####[facility] [address] [place], [address] Monocytes/100 WBC (Bld) 8.5 % Normal 0-10 [facility] Comment on above: Performed By: #### L 500.2500, L501.6710, L100.0100 ####[facility] [address] [place], [address] Neutrophils/100 WBC (Bld) 58.6 % Normal 47-70 [facility] Comment on above: Performed By: #### L 500.2500, L501.6710, L100.0100 ####[facility] [address] [place], [address] Nucleated RBC (Bld) [#/Vol] 0 10*3/uL Normal 0-5 [facility] Comment on above: Performed By: #### L 500.2500, L501.6710, L100.0100 ####[facility] [address] [place], [address] Platelet mean volume (Bld) [Entitic vol] 9.4 fL Normal 6.2-12.0 [facility] Comment on above: Performed By: #### L 500.2500, L501.6710, L100.0100 ####[facility] [address] [place], [address] Platelets (Bld) [#/Vol] 143 10*3/uL Low 150-450 [facility] Comment on above: Performed By: #### L 500.2500, L501.6710, L100.0100 ####[facility] [address] [place], [address] RBC (Bld) [#/Vol] 3.91 10*6/uL Low 4.6-6.2 [facility] Comment on above: Performed By: #### L 500.2500, L501.6710, L100.0100 ####[facility] [address] [place], [address] RDW SD 49.8 fl High 35.1-43.9 [facility] Comment on above: Performed By: #### L 500.2500, L501.6710, L100.0100 ####[facility] [address] [place], [address] WBC (Bld) [#/Vol] 4.8 10*3/uL Normal 4.4-11.0 [facility] Comment on above: Performed By: #### L 500.2500, L501.6710, L100.0100 ####[facility] [address] [place], [address] CRPon 10-29-2023 C-REACTIVE PROT < 2.90 Normal 0.0-3.0 [facility] Comment on above: Result Comment: C-Re active Protein (CRP) provides useful information for the diagnosis, therapy and monitoring of inflammatory processes and associated diseases. For the evaluation of Relative Risk for Cardiovascular Disease, a High Sensitivity CRP (HSCRP) should be ordered. Performed By: #### L 500.2500, L501.6710, L100.0100 ####[facility] [address] [place], [address] CNPNon 09-29-2023 CHADDN Telephone (AGGENS4) MARIA LUZ SANTANA II ([id number]) 1950 M Date Time Provider Department 09/29/23 RUTH SULLIVAN During your visit today, we recorded the following information about you: Bharati Oneal LPN 09/29/2023 5:07 PM Signed Patient called in confused stating that he believed he was supposed to have a test done testing his stomach acid. This nurse reached out to Holly PARISI and she stated that that is the EGD Stafford test and not just the EGD. Patient made aware, but still wanted to check with provider about this. Bharati Oneal LPN Allergies As of Date: 09/29/2023 Noted Allergy Reaction CORTICOSTEROIDS (GLUCOCORTICOIDS) 07/08/2018 14 - Other: See Comments 12 - Shortness of Breath EGG DERIVED 07/08/2018 14 - Other: See Comments FLUCONAZOLE 05/21/2023 5 - Intolerance 12 - Shortness of Breath LEVAQUIN (LEVOFLOXACIN) 03/13/2023 2 - Rash MILK CONTAINING PRODUCTS (DAIRY) 07/08/2018 6 - Diarrhea OMEPRAZOLE 03/13/2023 9 - Itching PENICILLINS 10/01/2013 7 - Swelling Comments: swelling of tongue PROTONIX (PANTOPRAZOLE) 03/13/2023 9 - Itching STEROIDS (BETAMETHASONE DIPROPION*05/10/2015 7 - Swelling Comments: Tongue swelling ULORIC (FEBUXOSTAT) 03/13/2023 2 - Rash Date Reviewed: 09/24/2023 Reviewed by: Francoise Telles RN - Fully Assessed Prescriptions as of 09/30/2023 - nystatin (MYCOSTATIN) 100,000 unit/mL suspension swish and spit 1 ml BY MOUTH FOUR TIMES DAILY for 1 minute - dilTIAZem (CARDIZEM) 60 mg tablet Take 1 tablet by mouth every 12 hours. - famotidine (PEPCID) 20 mg tablet Take 1 tablet by mouth every 12 hours. - lisinopril (ZESTRIL) 20 mg tablet Take 1 tablet by mouth every 12 hours. - ergocalciferol 50,000 unit capsule (VITAMIN D2, DRISDOL) Take 1 capsule by mouth one time a week. - allopurinol (ZYLOPRIM) 100 mg tablet Take 200 mg by mouth once daily. - loratadine (CLARITIN) 10 mg tablet Take 10 mg by mouth as needed for cold/allergy symptoms. - hydrochlorothiazide 12.5 mg tablet Take 12.5 mg by mouth once daily. Two tablets Problem List As Of Date 09/29/2023 Noted Resolved Pain in thoracic spine [M54.6] 04/20/2023 Pre-op examination [Z01.818] 05/05/2023 Paraesophageal hernia [K44.9] 05/05/2023 Tachyarrhythmia [R00.0] 05/05/2023 Migraine with aura [G43.109] 05/05/2023 History of kidney cancer [Z85.528] 05/05/2023 STEPHANY (obstructive sleep apnea) [G47.33] 05/05/2023 Primary hypertension [I10] 05/05/2023 Other specified anemias [D64.89] 05/05/2023 Thrush of mouth and esophagus (HCC) (HCC) [B37*09/24/2023 Encounter Status:Closed by BHARATI ONEAL on 09/30/23 [facility] CNPN Telephone (AGGENS4) MARIA LUZ SANTANA II ([id number]) 1950 M Date Time Provider Department 09/29/23 RUTH SULLIVAN CASSENS4 During your visit today, we recorded the following information about you: Allergies As of Date: 09/29/2023 Noted Allergy Reaction CORTICOSTEROIDS (GLUCOCORTICOIDS) 07/08/2018 14 - Other: See Comments 12 - Shortness of Breath EGG DERIVED 07/08/2018 14 - Other: See Comments FLUCONAZOLE 05/21/2023 5 - Intolerance 12 - Shortness of Breath LEVAQUIN (LEVOFLOXACIN) 03/13/2023 2 - Rash MILK CONTAINING PRODUCTS (DAIRY) 07/08/2018 6 - Diarrhea OMEPRAZOLE 03/13/2023 9 - Itching PENICILLINS 10/01/2013 7 - Swelling Comments: swelling of tongue PROTONIX (PANTOPRAZOLE) 03/13/2023 9 - Itching STEROIDS (BETAMETHASONE DIPROPION*05/10/2015 7 - Swelling Comments: Tongue swelling ULORIC (FEBUXOSTAT) 03/13/2023 2 - Rash Date Reviewed: 09/24/2023 Reviewed by: Francoise Telles, RN - Fully Assessed Prescriptions as of 09/29/2023 - nystatin (MYCOSTATIN) 100,000 unit/mL suspension swish and spit 1 ml BY MOUTH FOUR TIMES DAILY for 1 minute - dilTIAZem (CARDIZEM) 60 mg tablet Take 1 tablet by mouth every 12 hours. - famotidine (PEPCID) 20 mg tablet Take 1 tablet by mouth every 12 hours. - lisinopril (ZESTRIL) 20 mg tablet Take 1 tablet by mouth every 12 hours. - ergocalciferol 50,000 unit capsule (VITAMIN D2, DRISDOL) Take 1 capsule by mouth one time a week. - allopurinol (ZYLOPRIM) 100 mg tablet Take 200 mg by mouth once daily. - loratadine (CLARITIN) 10 mg tablet Take 10 mg by mouth as needed for cold/allergy symptoms. - hydrochlorothiazide 12.5 mg tablet Take 12.5 mg by mouth once daily. Two tablets Problem List As Of Date 09/29/2023 Noted Resolved Pain in thoracic spine [M54.6] 04/20/2023 Pre-op examination [Z01.818] 05/05/2023 Paraesophageal hernia [K44.9] 05/05/2023 Tachyarrhythmia [R00.0] 05/05/2023 Migraine with aura [G43.109] 05/05/2023 History of kidney cancer [Z85.528] 05/05/2023 STEPHANY (obstructive sleep apnea) [G47.33] 05/05/2023 Primary hypertension [I10] 05/05/2023 Other specified anemias [D64.89] 05/05/2023 Thrush of mouth and esophagus (HCC) (HCC) [B37*09/24/2023 Encounter Status:Closed by BHARATI ONEAL on 09/29/23 [facility] ANES POSTPROC EVALon 024 ANES POSTPROC EVAL HNO ID: [id number] Author: MANISHA CRUZ MD Service: Anesthesiology Author Type: Anesthesiologist Type: Anesthesia Postprocedure Evaluation Filed: 09/24/2023 15:37 Note Text: POST ANESTHESIA EVALUATION NOTE : 1950 Procedure Summary Date: 09/24/23 Room / Location: [facility] Anesthesia Start: 1336 Anesthesia Stop: 1346 Procedure: EGD DIAGNOSTIC Diagnosis: Thrush of mouth and esophagus (HCC) (HCC) (Dysphagia) Scheduled Providers: Ruth Sullivan MD Responsible Provider: Manisha Cruz MD Anesthesia Type: MAC ASA Status: 3 Anesthesia Type: MAC Last Vitals Vitals Value Taken Time BP 128/67 09/24/23 1405 Temp 36.3 ?C (97.4 ?F) 09/24/23 1347 Pulse 54 09/24/23 1405 Resp 15 09/24/23 1405 SpO2 100 % 09/24/23 1405 Post Anesthesia Patient Status Anticipated Disposition: phase 2 then home. Neurological Status: aware and responsive. Pulmonary Status: breathing comfortably on room air Airway Control: returned to baseline unsupported. Cardiovascular Status: stable. Pain Management: clinically adequate Postoperative Hydration: acceptable. Intraoperative Events: no significant anesthesia events Post Operative Nausea/Vomiting Status: no significant post operative nausea or vomiting Recommendation: continue current plan of care. Anesthesia Observations No Documentation SIGNATURE: Manisha Cruz MD PATIENT NAME: Maria Luz Santana II DATE: September 24, 2023 TIME: 3:37 PM CSN: [id number] [facility] ANES PRE-OPon 09-24-2023 ANES PRE-OP HNO ID: [id number] Author: MANISHA CRUZ MD Service: Anesthesiology Author Type: Anesthesiologist Type: Anesthesia Preprocedure Evaluation Filed: 09/24/2023 12:36 Note Text: ANESTHESIOLOGY DAY OF SURGERY NOTE : 1950 Procedure Information Date/Time: 09/24/23 1330 Scheduled providers: Ruth Sullivan MD Procedure: EGD DIAGNOSTIC Location: [facility] Estimated body mass index is 26.54 kg/m? as calculated from the following: Height as of 08/28/23: 177.8 cm (5' 10"). Weight as of 08/28/23: 83.9 kg (185 lb). Most recent hematocrit and potassium results: Hematocrit 35.6 05/13/2023 Potassium 4.1 05/13/2023 Relevant Problems ANESTHESIA (+) STEPHANY (obstructive sleep apnea) CARDIO (+) Migraine with aura (+) Primary hypertension (+) Tachyarrhythmia GI (+) Paraesophageal hernia NEURO-PSYCH (+) History of kidney cancer (+) Migraine with aura PULMONARY (+) STEPHANY (obstructive sleep apnea) I - PHYSICAL EVALUATION AIRWAY Patient intubated: No. Tracheostomy tube not present Mallampati: III. TM distance: >3 FB. Neck ROM: full ROM without neurological symptoms. Mouth opening: adequate. Short neck: no. Thick neck: no DENTAL Dental findings: teeth intact. II - ANESTHESIA PLAN ASA Score: 3 Anesthetic Plan: MAC NPO Status: adequate Beta Tia Monitoring Plan Monitoring plan: standard ASA. Post Procedure Analgesic Plan Postoperative analgesic plan: multimodal analgesia. Informed Consent Anesthetic risks, benefits, alternatives, personnel and consent discussed: yes. Patient / Responsible Alliance Party agrees to proceed: yes Patient / Surrogate agrees to blood products: blood products not planned Potential Anesthesia issues that may suggest increased risk of complications or contraindication to planned procedure: none. No vitals data found for the desired time range. Outpatient Medications as of 09/24/2023 Medication Sig nystatin (MYCOSTATIN) 100,000 unit/mL suspension swish and spit 1 ml BY MOUTH FOUR TIMES DAILY for 1 minute dilTIAZem (CARDIZEM) 60 mg tablet Take 1 tablet by mouth every 12 hours. famotidine (PEPCID) 20 mg tablet Take 1 tablet by mouth every 12 hours. lisinopril (ZESTRIL) 20 mg tablet Take 1 tablet by mouth every 12 hours. ergocalciferol 50,000 unit capsule (VITAMIN D2, DRISDOL) Take 1 capsule by mouth one time a week. allopurinol (ZYLOPRIM) 100 mg tablet Take 200 mg by mouth once daily. loratadine (CLARITIN) 10 mg tablet Take 10 mg by mouth as needed for cold/allergy symptoms. hydrochlorothiazide 12.5 mg tablet Take 12.5 mg by mouth once daily. Two tablets Facility-Administered Medications as of 09/24/2023 Medication Dose Route Frequency lactated ringers iv infusion 5-30 mL/hr INTRAVENOUS CONTINUOUS I have interviewed and examined the patient. I have reviewed the medical record and/or the pre-anesthesia evaluation, pertinent labs, and test results. This contains updated information obtained within 48 hours of Surgery/Procedure. SIGNATURE: Manisha Cruz MD PATIENT NAME: Maria Luz Santana II DATE: September 24, 2023 TIME: 12:25 PM CSN: [id number] [facility] EGD Study observation Narrat rosalio 09-24-2023 [facility] Gastrointestinal Endoscopy Patient Name: Maria Luz aSntana Procedure Date: 09/24/2023 1:27 PM Date of : 1950 Admit Type: Outpatient Room: [place] [address] Gender: Male Note Status: Finalized Attending MD: Ruth Sullivan MD, [id number] Procedure: Upper GI endoscopy Indications: Dysphagia Providers: Ruth Sullivan MD Patient Profile: Refer to note in patient chart for documentation of history and physical. Patient has symptoms of acute chest pain, acute dysphagia and acute throat burning. He is status post laparoscopic antireflux surgery within the past six months. Referring Physician: Ruth Sullivan MD (Referring MD) Medicines: Monitored Anesthesia Care Complications: No immediate complications. Procedure: Pre-Anesthesia Assessment: - Prior to the procedure, a History and Physical was performed, and patient medications and allergies were reviewed. The patient's tolerance of previous anesthesia was also reviewed. The risks and benefits of the procedure and the sedation options and risks were discussed with the patient. All questions were answered, and informed consent was obtained. Prior Anticoagulants: The patient has taken no anticoagulant or antiplatelet agents. ASA Grade Assessment: II - A patient with mild systemic disease. After reviewing the risks and benefits, the patient was deemed in satisfactory condition to undergo the procedure. After obtaining informed consent, the endoscope was passed under direct vision. Throughout the procedure, the patient's blood pressure, pulse, and oxygen saturations were monitored continuously. The Endoscope was introduced through the mouth, and advanced to the third part of duodenum. I was present and participated during the entire procedure, including non-brown portions, and during the administration and monitoring of Moderate Sedation. The upper GI endoscopy was accomplished without difficulty. The patient tolerated the procedure well. Moderate Sedation: Exam was performed under monitored anesthesia care (MAC) Findings: Anthony's esophagus was present in the lower third of the esophagus. The maximum longitudinal extent of these mucosal changes was 2 cm in length. A 3 cm hiatal hernia was present. Biopsies were taken with a cold forceps for histology. Evidence of a Toupet fundoplication was found in the gastric fundus. The wrap appeared intact. This was traversed. Biopsies were taken with a cold forceps for Helicobacter pylori testing. The duodenal bulb, first portion of the duodenum, second portion of the duodenum and third portion of the duodenum were normal. Estimated Blood Loss: Estimated blood loss: none. Impression: - Anthony's esophagus noted. - 3 cm hiatal hernia - appears to be a very small recurrent sliding hiatal hernia. Random esophageal biopsies were obtained due to his recent ongoing issues with Thrush - A Toupet fundoplication was found. The wrap appears intact on retroflexion with no evidence of recurrnece. Biopsied the gastric antrum for h.pylori. - Normal duodenal bulb, first portion of the duodenum, second portion of the duodenum and third portion of the duodenum. Recommendation: - Await pathology results. - Discharge patient to home (ambulatory). - Resume previous diet. - Return to my office as previously scheduled. - The patient is not currently taking anticoagulant or antiplatelet agents. Procedure Code(s): --- Professional --- 87919, Esophagogastroduodenosc opy, flexible, transoral; with biopsy, single or multiple (more content not included)... [facility] Radiology Study observation (narrative) [facility] HISTORY PHYSICALon HISTORY PHYSICAL HNO ID: [id number] Author: CIRO STEELE PA Service: ? Author Type: Physician Medical Physiologist Type: H&P Filed: 09/24/2023 13:17 Note Text: Summary: PAT HISTORY AND PHYSICAL EXAMINATION SERVICE DATE: 09/24/2023 SERVICE TIME: 12:22 PM Diagnosis: Thrush of mouth and esophagus (HCC) ([facility]) [B37.81, B37.0] Planned Procedure: EGD Planned Anesthetic: MAC PRIMARY CARE PHYSICIAN: Ana Casiano MD REASON FOR VISIT: The reason for this visit is to perform a comprehensive review of the patients past medical history, assess their current health status and obtain any additional testing required based on anesthesia guidelines. To assess and identify potential anesthesia problems, particularly those that may suggest potential complications or contraindications to the planned procedure. The patient has the following: ACTIVE PROBLEM LIST Pain in Thoracic Spine Pre-Op Examination Paraesophageal Hernia Tachyarrhythmia Migraine With Aura History of Kidney Cancer Stephany (Obstructive Sleep Apnea) Primary Hypertension Other Specified Anemias Subjective CHIEF COMPLAINT: Preoperative Examination HPI: Patient present to [facility] for the above procedure. Patient here for routine Upper GI Endoscopy screening. Patient has had a prior endoscopies. Here s/p repair of paraesophageal hernia. Patient denies any N/V/D or constipation. Notes upper abdominal pain and dysphagia of spit - notes that he has more mucus as of late 2/2 allergies. Denies any melena, hematochezia, or hematemesis. Patient denies any other problems at this time. Denies any family history of colon CA or other gastric CA. Patient agreed to planned procedure. METS: Climb a flight of stairs or walk up a hill (5.50 METs) Patient denies any CP/SOB with above activity. 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 Gill 01/18/2015: COLONOSCOPY 01/18/2015: EGD 12/22/2022: EGD WITH BIOPSY(S) Comment: medium hiatal hernia; Anthony's without dysplasia; Dr. Gill 03/13/2023: ESOPHAGEAL MANOMETRY Comment: Dr. Sullivan No date: EXTENSIVE JAW SURGERY 10/11/1979: INGUINAL HERNIA REPAIR HX; Left Comment: open 05/12/2023: LAPS RPR PARAESPHGL HRNA INCL FUNDPLSTY W/MESH Comment: Cem; Dr. Sullivan No date: NEPHRECTOMY PARTIAL; Left Comment: 2020 No date: VASECTOMY UNI/BI SPX W/POSTOP SEMEN EXAMS FAMILY HISTORY Problem Relation Age of Onset Allergies Mother Diabetes Mother Hypertension Mother Stroke Mother Coronary Artery Disease Father 60 [place] x 3 Blood Disease Father Heart Father SOCIAL HISTORY: Social History Tobacco Use Smoking status: Never Smokeless tobacco: Never Vaping Use Vaping Use: Never used Substance Use Topics Alcohol use: Yes Comment: [id number] times monthly Drug use: No Prior to Admission medications as of 09/24/23 1314 Medication Sig Last Dose Taking dilTIAZem (CARDIZEM) 60 mg tablet Take 1 tablet by mouth every 12 hours. 09/24/2023 Yes nystatin (MYCOSTATIN) 100,000 unit/mL suspension swish and spit 1 ml BY MOUTH FOUR TIMES DAILY for 1 minute famotidine (PEPCID) 20 mg tablet Take 1 tablet by mouth every 12 hours. lisinopril (ZESTRIL) 20 mg tablet Take 1 tablet by mouth every 12 hours. ergocalciferol 50,000 unit capsule (VITAMIN D2, DRISDOL) Take 1 capsule by mouth one time a week. 09/22/2023 allopurinol (ZYLOPRIM) 100 mg tablet Take 200 mg by mouth once daily. loratadine (CLARITIN) 10 mg tablet Take 10 mg by mouth as needed for cold/allergy symptoms. 09/22/2023 hydrochlorothiazide 12.5 mg tablet Take 12.5 mg by mouth once daily. Two tablets No medication comments found. ALLERGIES Allergen Reactions Corticosteroids (Gl* Other: See Comments, Shortness of Breath Egg Derived Other: See Comments Fluconazole Intolerance, Shortness of Breath Levaquin [Levofloxa* Rash Milk Containing Pro* Diarrhea Omeprazole Itching Penicillins Swelling swelling of tongue Protonix [Pantopraz* Itching Steroids [Betametha* Swelling Tongue swelling Uloric [Febuxostat] Rash REVIEW OF SYSTEMS: PAIN ASSESSMENT: Pain Pain Level: 0 Pain Assessment: Assessment Tool: Verbal (Numeric Rating or Visual Analog Scale) General: Denies fever, chills, and unexpected weight change. Neuro: Denies headaches. Denies h/o CVA and seizures. Respiratory: Denies SOB. Denies h/o COPD an (more content not included)... Normal [facility] SURGICAL PATHOLOGYon 024 CASE REPORT Normal [facility] Comment on above: Order Comment: Steven chen Type: TISSUE SPECIMEN Ordering Facility: Address: [address] [place] [address] Result Comment: Surg ica Pathology Report Case: [id number] Authorizing Provider: Ruth Sullivan MD Collected: 09/24/2023 01:42 PM Ordering Location: [facility] Received: 09/25/2023 08:42 AM Pathologist: Bharati Milligan MD Specimens: A) - Esophagus, Biopsy, random B) - Stomach, Biopsy, r/o h.pylori Performed By: #### S #### [facility] CLIA [id number] [address] [place] [address] DIAGNOSIS COMMENT Normal [facility] Comment on above: Order Comment: Steven chen Type: TISSUE SPECIMEN Ordering Facility: Address: [address] [place] [address] Result Comment: If c linical concern for Helicobacter pylori persists, correlation with stool antigen studies or urea breath test may be useful. Dr. Analilia Farrell reviewed part A and agrees with the diagnosis. Laboratory Developed Test (LDT) Disclaimer: Performance characteristics of immunohistochemical, immunofluorescent and chromogenic in-situ hybridization tests have been determined by the performing laboratory within [facility]???s [facility] Pathology and Laboratory Medicine Department ([facility], [facility], [facility], [facility], [facility], [facility], or [facility]) in a manner consistent with CLIA requirements. One or more of these tests have not been cleared or approved by the FDA. [facility] is regulated under CLIA as qualified to perform high-complexity testing. These tests are used for clinical purposes. They should not be regarded as investigational or for research. Positive and negative controls stain appropriately. Performed By: #### S #### [facility] CLIA [id number] [address] [place] [address] FINAL DIAGNOSIS Normal [facility] Comment on above: Order Comment: Steven chen Type: TISSUE SPECIMEN Ordering Facility: Address: [address] [place] [address] Result Comment: 8. E sophagus, random, biopsy: - Squamous epithelium with minimal chronic inflammation. Special stain for PAS/D negative for fungal elements. B. Stomach, biopsy: - Mild chronic gastritis. Immunohistochemical stain for Helicobacter is negative for Helicobacter pylori-like for microorganisms. Performed By: #### S #### [facility] CLIA [id number] [address] [place] [address] FINAL PERFORMING LAB Normal [facility] Comment on above: Order Comment: Speci men Type: TISSUE SPECIMEN Ordering Facility: Address: [address] [place] [address] Result Comment: Diag nostic interpretation performed at [facility], [address] [place] [address] CLIA# [id number] Tube Repairer: Ana Gonzales M.D. Performed By: #### S #### [facility] CLIA [id number] [address] [place] [address] GROSS DESCRIPTION Normal [facility] Comment on above: Order Comment: Speci men Type: TISSUE SPECIMEN Ordering Facility: Address: [address] [place] [address] Result Comment: A. E sophagus, Biopsy Received in formalin labeled "random esophagus biopsy" are multiple white segments of tissue aggregating to 0.9 x 0.6 x 0.1 cm. The specimens are totally submitted in formalin in 1 cassette. B. Stomach, Biopsy Received in formalin labeled "stomach biopsy" is a sin segment of tissue measuring 0.6 x 0.3 x 0.2 cm. The specimen is totally submitted in formalin in 1 cassette. Gross examination performed at [facility], [address] [place] [address] KVB September 25, 2023 11:49 AM Performed By: #### S #### [facility] CLIA [id number] [address] [place] [address] Upper GI endoscopy 08-15-2 024 Upper GI endoscopy [facility] Gastrointestinal Endoscopy Patient Name: Maria Luz Santana Procedure Date: 09/24/2023 1:27 PM Date of : 1950 Admit Type: Outpatient Room: [place] [address] Gender: Male Note Status: Finalized Attending MD: Ruth Sullivan MD, [id number] Procedure: Upper GI endoscopy Indications: Dysphagia Providers: Ruth Sullivan MD Patient Profile: Refer to note in patient chart for documentation of history and physical. Patient has symptoms of acute chest pain, acute dysphagia and acute throat burning. He is status post laparoscopic antireflux surgery within the past six months. Referring Physician: Ruth Sullivan MD (Referring MD) Medicines: Monitored Anesthesia Care Complications: No immediate complications. Procedure: Pre-Anesthesia Assessment: - Prior to the procedure, a History and Physical was performed, and patient medications and allergies were reviewed. The patient's tolerance of previous anesthesia was also reviewed. The risks and benefits of the procedure and the sedation options and risks were discussed with the patient. All questions were answered, and informed consent was obtained. Prior Anticoagulants: The patient has taken no anticoagulant or antiplatelet agents. ASA Grade Assessment: II - A patient with mild systemic disease. After reviewing the risks and benefits, the patient was deemed in satisfactory condition to undergo the procedure. After obtaining informed consent, the endoscope was passed under direct vision. Throughout the procedure, the patient's blood pressure, pulse, and oxygen saturations were monitored continuously. The Endoscope was introduced through the mouth, and advanced to the third part of duodenum. I was present and participated during the entire procedure, including non-brown portions, and during the administration and monitoring of Moderate Sedation. The upper GI endoscopy was accomplished without difficulty. The patient tolerated the procedure well. Moderate Sedation: Exam was performed under monitored anesthesia care (MAC) Findings: Anthony's esophagus was present in the lower third of the esophagus. The maximum longitudinal extent of these mucosal changes was 2 cm in length. A 3 cm hiatal hernia was present. Biopsies were taken with a cold forceps for histology. Evidence of a Toupet fundoplication was found in the gastric fundus. The wrap appeared intact. This was traversed. Biopsies were taken with a cold forceps for Helicobacter pylori testing. The duodenal bulb, first portion of the duodenum, second portion of the duodenum and third portion of the duodenum were normal. Estimated Blood Loss: Estimated blood loss: none. Impression: - Anthony's esophagus noted. - 3 cm hiatal hernia - appears to be a very small recurrent sliding hiatal hernia. Random esophageal biopsies were obtained due to his recent ongoing issues with Thrush - A Toupet fundoplication was found. The wrap appears intact on retroflexion with no evidence of recurrnece. Biopsied the gastric antrum for h.pylori. - Normal duodenal bulb, first portion of the duodenum, second portion of the duodenum and third portion of the duodenum. Recommendation: - Await pathology results. - Discharge patient to home (ambulatory). - Resume previous diet. - Return to my office as previously scheduled. - The patient is not currently taking anticoagulant or antiplatelet agents. Procedure Code(s): --- Professional --- 47812, Esophagogastroduodenosc opy, flexible, transoral; with biopsy, single or multiple --- Technical --- 89631, Esophagogastroduodenosc opy, flexible, transoral; with biopsy, single or multiple Diagnosis Code(s): --- Professional --- K22.70, Anthony's esophagus without dysplasia K44.9, Diaphragmatic hernia without obstruction or gangrene Z98.890, Other specified postprocedural states R13.10, Dysphagia, unspecified --- Technical --- K22.70, Anthony's esophagus without dysplasia K44.9, Diaphragmatic hernia without obstruction or gangrene Z98.890, Other specified postprocedural states R13.10, Dysphagia, unspecified CPT copyright 2020 [employer]. All rights reserved. The codes documented in this report are preliminary and upon global climate change analyst review may be revised to meet current compliance requirements. Attending Participation: I personally performed the entire procedure. Scope In: 1:39:28 PM Scope Out: 1:45:33 PM MD Ruth Sow MD 09/24/2023 1:53:57 PM This report has been signed electronically by Ruth Sullivan MD Number of Addenda: 0 Note Initiated On: 09/24/2023 1:27 PM Normal [facility] Telephone (AGGENS4) VICKIMARIA LUZ PARKS II ([id number]) 1950 M Date Time Provider Department 09/07/23 RUTH SULLIVAN4 During your visit today, we recorded the following information about you: Bharati Oneal LPN 09/07/2023 10:24 AM Signed EGD scheduled for 09/24/2023 at 3:00pm. Prep/instructions given to patient at checkout. Snapboard updated. Bharati Oneal LPN Allergies As of Date: 09/07/2023 Noted Allergy Reaction CORTICOSTEROIDS (GLUCOCORTICOIDS) 07/08/2018 14 - Other: See Comments 12 - Shortness of Breath EGG DERIVED 07/08/2018 14 - Other: See Comments FLUCONAZOLE 05/21/2023 5 - Intolerance 12 - Shortness of Breath LEVAQUIN (LEVOFLOXACIN) 03/13/2023 2 - Rash MILK CONTAINING PRODUCTS (DAIRY) 07/08/2018 6 - Diarrhea OMEPRAZOLE 03/13/2023 9 - Itching PENICILLINS 10/01/2013 7 - Swelling Comments: swelling of tongue PROTONIX (PANTOPRAZOLE) 03/13/2023 9 - Itching STEROIDS (BETAMETHASONE DIPROPION*05/10/2015 7 - Swelling Comments: Tongue swelling ULORIC (FEBUXOSTAT) 03/13/2023 2 - Rash Date Reviewed: 08/28/2023 Reviewed by: Ruth Sullivan MD - Fully Assessed Reason for Visit: Appointment [186] Cmt: EGD new appointment. Prescriptions as of 09/07/2023 - nystatin (MYCOSTATIN) 100,000 unit/mL suspension swish and spit 1 ml BY MOUTH FOUR TIMES DAILY for 1 minute - dilTIAZem (CARDIZEM) 60 mg tablet Take 1 tablet by mouth every 12 hours. - famotidine (PEPCID) 20 mg tablet Take 1 tablet by mouth every 12 hours. - lisinopril (ZESTRIL) 20 mg tablet Take 1 tablet by mouth every 12 hours. - ergocalciferol 50,000 unit capsule (VITAMIN D2, DRISDOL) Take 1 capsule by mouth one time a week. - allopurinol (ZYLOPRIM) 100 mg tablet Take 200 mg by mouth once daily. - loratadine (CLARITIN) 10 mg tablet Take 10 mg by mouth as needed for cold/allergy symptoms. - hydrochlorothiazide 12.5 mg tablet Take 12.5 mg by mouth once daily. Two tablets Problem List As Of Date 09/07/2023 Noted Resolved Pain in thoracic spine [M54.6] 04/20/2023 Pre-op exam [Z01.818] 05/05/2023 Paraesophageal hernia [K44.9] 05/05/2023 Tachyarrhythmia [R00.0] 05/05/2023 Migraine with aura [G43.109] 05/05/2023 History of kidney cancer [Z85.528] 05/05/2023 STEPHANY (obstructive sleep apnea) [G47.33] 05/05/2023 Primary hypertension [I10] 05/05/2023 Other specified anemias [D64.89] 05/05/2023 Encounter Status:Closed by BHARATI ONEAL on 09/07/23 [facility] 09-01-2023 CNPN Telephone (AGGENS4) MARIA LUZ SANTANA II ([id number]) 1950 M Date Time Provider Department 09/01/23 RUTH SULLIVAN4 During your visit today, we recorded the following information about you: Zari Walls 09/01/2023 1:00 PM Signed LVM for patient to scheduled follow up appointment for EGD - requested patient call back to schedule appointment. Haztucesta message sent to patient. Allergies As of Date: 09/01/2023 Noted Allergy Reaction CORTICOSTEROIDS (GLUCOCORTICOIDS) 07/08/2018 14 - Other: See Comments 12 - Shortness of Breath EGG DERIVED 07/08/2018 14 - Other: See Comments FLUCONAZOLE 05/21/2023 5 - Intolerance 12 - Shortness of Breath LEVAQUIN (LEVOFLOXACIN) 03/13/2023 2 - Rash MILK CONTAINING PRODUCTS (DAIRY) 07/08/2018 6 - Diarrhea OMEPRAZOLE 03/13/2023 9 - Itching PENICILLINS 10/01/2013 7 - Swelling Comments: swelling of tongue PROTONIX (PANTOPRAZOLE) 03/13/2023 9 - Itching STEROIDS (BETAMETHASONE DIPROPION*05/10/2015 7 - Swelling Comments: Tongue swelling ULORIC (FEBUXOSTAT) 03/13/2023 2 - Rash Date Reviewed: 08/28/2023 Reviewed by: Ruth Sullivan MD - Fully Assessed Reason for Visit: Appointment [186] Prescriptions as of 09/01/2023 - nystatin (MYCOSTATIN) 100,000 unit/mL suspension swish and spit 1 ml BY MOUTH FOUR TIMES DAILY for 1 minute - dilTIAZem (CARDIZEM) 60 mg tablet Take 1 tablet by mouth every 12 hours. - famotidine (PEPCID) 20 mg tablet Take 1 tablet by mouth every 12 hours. - lisinopril (ZESTRIL) 20 mg tablet Take 1 tablet by mouth every 12 hours. - ergocalciferol 50,000 unit capsule (VITAMIN D2, DRISDOL) Take 1 capsule by mouth one time a week. - allopurinol (ZYLOPRIM) 100 mg tablet Take 200 mg by mouth once daily. - loratadine (CLARITIN) 10 mg tablet Take 10 mg by mouth as needed for cold/allergy symptoms. - hydrochlorothiazide 12.5 mg tablet Take 12.5 mg by mouth once daily. Two tablets Problem List As Of Date 09/01/2023 Noted Resolved Pain in thoracic spine [M54.6] 04/20/2023 Pre-op exam [Z01.818] 05/05/2023 Paraesophageal hernia [K44.9] 05/05/2023 Tachyarrhythmia [R00.0] 05/05/2023 Migraine with aura [G43.109] 05/05/2023 History of kidney cancer [Z85.528] 05/05/2023 STEPHANY (obstructive sleep apnea) [G47.33] 05/05/2023 Primary hypertension [I10] 05/05/2023 Other specified anemias [D64.89] 05/05/2023 Encounter Status:Closed by ZARI WALLS on 09/01/23 [facility] 08-31-2023 CNPN Telephone (AGGENS4) MARIA LUZ SANTANA II ([id number]) 1950 M Date Time Provider Department 08/31/23 RUTH SULLIVAN ELLA4 During your visit today, we recorded the following information about you: Zari Walls 08/31/2023 8:22 AM Signed Patient called to schedule EGD and follow up. Please call to schedule patient EGD and forward to schedule follow up. Bharati Oneal LPN 09/01/2023 10:19 AM Signed EGD scheduled for 10/16/2023 at 11:00am. Prep/instructions given to patient at checkout. JOAO Rodas Sarah, LPN 09/01/2023 10:20 AM Signed Please schedule 2 week follow up for patient. Bharati Oneal LPN Allergies As of Date: 08/31/2023 Noted Allergy Reaction CORTICOSTEROIDS (GLUCOCORTICOIDS) 07/08/2018 14 - Other: See Comments 12 - Shortness of Breath EGG DERIVED 07/08/2018 14 - Other: See Comments FLUCONAZOLE 05/21/2023 5 - Intolerance 12 - Shortness of Breath LEVAQUIN (LEVOFLOXACIN) 03/13/2023 2 - Rash MILK CONTAINING PRODUCTS (DAIRY) 07/08/2018 6 - Diarrhea OMEPRAZOLE 03/13/2023 9 - Itching PENICILLINS 10/01/2013 7 - Swelling Comments: swelling of tongue PROTONIX (PANTOPRAZOLE) 03/13/2023 9 - Itching STEROIDS (BETAMETHASONE DIPROPION*05/10/2015 7 - Swelling Comments: Tongue swelling ULORIC (FEBUXOSTAT) 03/13/2023 2 - Rash Date Reviewed: 08/28/2023 Reviewed by: uRth Sullivan MD - Fully Assessed Reason for Visit: Appointment [186] Cmt: EGD Prescriptions as of 09/01/2023 - nystatin (MYCOSTATIN) 100,000 unit/mL suspension swish and spit 1 ml BY MOUTH FOUR TIMES DAILY for 1 minute - dilTIAZem (CARDIZEM) 60 mg tablet Take 1 tablet by mouth every 12 hours. - famotidine (PEPCID) 20 mg tablet Take 1 tablet by mouth every 12 hours. - lisinopril (ZESTRIL) 20 mg tablet Take 1 tablet by mouth every 12 hours. - ergocalciferol 50,000 unit capsule (VITAMIN D2, DRISDOL) Take 1 capsule by mouth one time a week. - allopurinol (ZYLOPRIM) 100 mg tablet Take 200 mg by mouth once daily. - loratadine (CLARITIN) 10 mg tablet Take 10 mg by mouth as needed for cold/allergy symptoms. - hydrochlorothiazide 12.5 mg tablet Take 12.5 mg by mouth once daily. Two tablets Problem List As Of Date 08/31/2023 Noted Resolved Pain in thoracic spine [M54.6] 04/20/2023 Pre-op exam [Z01.818] 05/05/2023 Paraesophageal hernia [K44.9] 05/05/2023 Tachyarrhythmia [R00.0] 05/05/2023 Migraine with aura [G43.109] 05/05/2023 History of kidney cancer [Z85.528] 05/05/2023 STEPHANY (obstructive sleep apnea) [G47.33] 05/05/2023 Primary hypertension [I10] 05/05/2023 Other specified anemias [D64.89] 05/05/2023 Encounter Status:Closed by ZARI WALLS on 08/31/23 [facility] CNPN Telephone (AGGENS4) MARIA LUZ SANTANA II ([id number]) 1950 M Date Time Provider Department 08/31/23 RUTH SULLIVAN4 During your visit today, we recorded the following information about you: Zari Walls 08/31/2023 8:12 AM Signed VM received regarding patient wanting to scheduling an EGD and a follow up appointment - [facility] for patient to call back to schedule an appointment. Haztucesta message sent to patient. Allergies As of Date: 08/31/2023 Noted Allergy Reaction CORTICOSTEROIDS (GLUCOCORTICOIDS) 07/08/2018 14 - Other: See Comments 12 - Shortness of Breath EGG DERIVED 07/08/2018 14 - Other: See Comments FLUCONAZOLE 05/21/2023 5 - Intolerance 12 - Shortness of Breath LEVAQUIN (LEVOFLOXACIN) 03/13/2023 2 - Rash MILK CONTAINING PRODUCTS (DAIRY) 07/08/2018 6 - Diarrhea OMEPRAZOLE 03/13/2023 9 - Itching PENICILLINS 10/01/2013 7 - Swelling Comments: swelling of tongue PROTONIX (PANTOPRAZOLE) 03/13/2023 9 - Itching STEROIDS (BETAMETHASONE DIPROPION*05/10/2015 7 - Swelling Comments: Tongue swelling ULORIC (FEBUXOSTAT) 03/13/2023 2 - Rash Date Reviewed: 08/28/2023 Reviewed by: Ruth Sullivan MD - Fully Assessed Reason for Visit: Appointment [186] Prescriptions as of 08/31/2023 - nystatin (MYCOSTATIN) 100,000 unit/mL suspension swish and spit 1 ml BY MOUTH FOUR TIMES DAILY for 1 minute - dilTIAZem (CARDIZEM) 60 mg tablet Take 1 tablet by mouth every 12 hours. - famotidine (PEPCID) 20 mg tablet Take 1 tablet by mouth every 12 hours. - lisinopril (ZESTRIL) 20 mg tablet Take 1 tablet by mouth every 12 hours. - ergocalciferol 50,000 unit capsule (VITAMIN D2, DRISDOL) Take 1 capsule by mouth one time a week. - allopurinol (ZYLOPRIM) 100 mg tablet Take 200 mg by mouth once daily. - loratadine (CLARITIN) 10 mg tablet Take 10 mg by mouth as needed for cold/allergy symptoms. - hydrochlorothiazide 12.5 mg tablet Take 12.5 mg by mouth once daily. Two tablets Problem List As Of Date 08/31/2023 Noted Resolved Pain in thoracic spine [M54.6] 04/20/2023 Pre-op exam [Z01.818] 05/05/2023 Paraesophageal hernia [K44.9] 05/05/2023 Tachyarrhythmia [R00.0] 05/05/2023 Migraine with aura [G43.109] 05/05/2023 History of kidney cancer [Z85.528] 05/05/2023 STEPHANY (obstructive sleep apnea) [G47.33] 05/05/2023 Primary hypertension [I10] 05/05/2023 Other specified anemias [D64.89] 05/05/2023 Encounter Status:Closed [facility]S [facility] 08[facility]31/[facility]ENS[facility] MARIA LUZ SANTANA II ([id number]) 1950 M Date Time Provider Department 08/28/23 RUTH SULLIVANENS4 During your visit today, we recorded the following information about you: Bharati Oneal LPN 08/28/2023 4:31 PM Signed Attempted to call patient to schedule for EGD. Left voicemail to return. Bharati Oneal LPN Allergies As of Date: 08/28/2023 Noted Allergy Reaction CORTICOSTEROIDS (GLUCOCORTICOIDS) 07/08/2018 14 - Other: See Comments 12 - Shortness of Breath EGG DERIVED 07/08/2018 14 - Other: See Comments FLUCONAZOLE 05/21/2023 5 - Intolerance 12 - Shortness of Breath LEVAQUIN (LEVOFLOXACIN) 03/13/2023 2 - Rash MILK CONTAINING PRODUCTS (DAIRY) 07/08/2018 6 - Diarrhea OMEPRAZOLE 03/13/2023 9 - Itching PENICILLINS 10/01/2013 7 - Swelling Comments: swelling of tongue PROTONIX (PANTOPRAZOLE) 03/13/2023 9 - Itching STEROIDS (BETAMETHASONE DIPROPION*05/10/2015 7 - Swelling Comments: Tongue swelling ULORIC (FEBUXOSTAT) 03/13/2023 2 - Rash Date Reviewed: 08/28/2023 Reviewed by: Ruth Sullivan MD - Fully Assessed Reason for Visit: Orders [681] Cmt: Schedule EGD Prescriptions as of 08/28/2023 - nystatin (MYCOSTATIN) 100,000 unit/mL suspension swish and spit 1 ml BY MOUTH FOUR TIMES DAILY for 1 minute - dilTIAZem (CARDIZEM) 60 mg tablet Take 1 tablet by mouth every 12 hours. - famotidine (PEPCID) 20 mg tablet Take 1 tablet by mouth every 12 hours. - lisinopril (ZESTRIL) 20 mg tablet Take 1 tablet by mouth every 12 hours. - ergocalciferol 50,000 unit capsule (VITAMIN D2, DRISDOL) Take 1 capsule by mouth one time a week. - allopurinol (ZYLOPRIM) 100 mg tablet Take 200 mg by mouth once daily. - loratadine (CLARITIN) 10 mg tablet Take 10 mg by mouth as needed for cold/allergy symptoms. - hydrochlorothiazide 12.5 mg tablet Take 12.5 mg by mouth once daily. Two tablets Problem List As Of Date 08/28/2023 Noted Resolved Pain in thoracic spine [M54.6] 04/20/2023 Pre-op exam [Z01.818] 05/05/2023 Paraesophageal hernia [K44.9] 05/05/2023 Tachyarrhythmia [R00.0] 05/05/2023 Migraine with aura [G43.109] 05/05/2023 History of kidney cancer [Z85.528] 05/05/2023 STEPHANY (obstructive sleep apnea) [G47.33] 05/05/2023 Primary hypertension [I10] 05/05/2023 Other specified anemias [D64.89] 05/05/2023 Encounter Status:Closed by BHARATI ONEAL on 08/28/23 [facility] 08-04-2023 CNPN Telephone (AGGENS4) MARIA LUZ SANTANA II ([id number]) 1950 M Date Time Provider Department 08/04/23 EDITH ROQUE AGGENS4 During your visit today, we recorded the following information about you: Edith Roque, RN 08/04/2023 1:26 PM Signed Patient called today to update us. Patient is s/p PEPITO w/Caitlinet on 05/12/23. Patient complains of "acid reflux", describing it as "in the center of my chest. If I take a deep breath is it painful. It is pressure above my breast bone, feeling like stabbing pain when I inhale deeply. Before surgery I felt the acid in the back of my throat and up high in my chest." Patient stated he has been taking his Famotidine off and on and denies having any stabbing chest pain or pain on inhaling while he is on the Famotidine. "I really want to come off the Famotidine because I mentally foggy on it. Patient followed my last recommendation of removing milk, Fairlife milk and yogurt out of his diet. He has not noticed any improvement. He does not relate the stabbing chest pain to eating in general or eating any foods or liquids in particular, although he does admit if he eats too big of a meal he may get the chest pain. Patient is successfully eating meat as long as it is small, moist pieces. Patient reports he is eating 3 smaller meals/day and has cut back on his protein intake to 50-60 gm/day. Patient stated the only thing he has trouble swallowing is his diltiazem. I recommended that he try taking it with a teaspoon of applesauce or yogurt. Patient agreed to try it. Patient continues to sleep with his head of bed elevated at 45 degrees. Bernabe stated he woke up this morning with "acid reflux" as he described above. Patient does have environmental allergies and takes Sima every night. He also does a nasal rinse twice a day. He denies cough, but does have intermittent PND (post nasal drip). Patient does not sound nasally congested during our conversation. I told the patient that I don't know if this is acid reflux and since he describes it as "stabbing chest pain" I recommended that he make an appointment with his PCP (whom he has not seen since prior to surgery) to make sure we are not overlooking something, possibly musculoskeletal. Patient agreed with the plan. Patient has a video follow up appointment with Dr. Sullivan on 09/18/23. Edith Shine-Nurse, Josephine 08/05/2023 2:59 PM Signed Pt says he will see cardiology first and swill keep his scheduled appt Allergies As of Date: 08/04/2023 Noted Allergy Reaction CORTICOSTEROIDS (GLUCOCORTICOIDS) 07/08/2018 14 - Other: See Comments 12 - Shortness of Breath EGG DERIVED 07/08/2018 14 - Other: See Comments FLUCONAZOLE 05/21/2023 5 - Intolerance 12 - Shortness of Breath LEVAQUIN (LEVOFLOXACIN) 03/13/2023 2 - Rash MILK CONTAINING PRODUCTS (DAIRY) 07/08/2018 6 - Diarrhea OMEPRAZOLE 03/13/2023 9 - Itching PENICILLINS 10/01/2013 7 - Swelling Comments: swelling of tongue PROTONIX (PANTOPRAZOLE) 03/13/2023 9 - Itching STEROIDS (BETAMETHASONE DIPROPION*05/10/2015 7 - Swelling Comments: Tongue swelling ULORIC (FEBUXOSTAT) 03/13/2023 2 - Rash Date Reviewed: 06/03/2023 Reviewed by: Ruth Sullivan MD - Fully Assessed Reason for Visit: Patient Question [1477] Follow Up [171] Prescriptions as of 08/05/2023 - nystatin (MYCOSTATIN) 100,000 unit/mL suspension swish and spit 1 ml BY MOUTH FOUR TIMES DAILY for 1 minute - dilTIAZem (CARDIZEM) 60 mg tablet Take 1 tablet by mouth every 12 hours. - famotidine (PEPCID) 20 mg tablet Take 1 tablet by mouth every 12 hours. - lisinopril (ZESTRIL) 20 mg tablet Take 1 tablet by mouth every 12 hours. - ergocalciferol 50,000 unit capsule (VITAMIN D2, DRISDOL) Take 1 capsule by mouth one time a week. - allopurinol (ZYLOPRIM) 100 mg tablet Take 200 mg by mouth once daily. - loratadine (CLARITIN) 10 mg tablet Take 10 mg by mouth as needed for cold/allergy symptoms. - hydrochlorothiazide 12.5 mg tablet Take 12.5 mg by mouth once daily. Two tablets Problem List As Of Date 08/04/2023 Noted Resolved Pain in thoracic spine [M54.6] 04/20/2023 Pre-op exam [Z01.818] 05/05/2023 Paraesophageal hernia [K44.9] 05/05/2023 Tachyarrhythmia [R00.0] 05/05/2023 Migraine with aura [G43.109] 05/05/2023 History of kidney cancer [Z85.528] 05/05/2023 STEPHANY (obstructive sleep apnea) [G47.33] 05/05/2023 Primary hypertension [I10] 05/05/2023 Other specified anemias [D64.89] 05/05/2023 Encounter Status:Closed by EDITH ROQUE on 08/04/23 [facility] 07-03-2023 [facility] Telephone (AGGENS4) MARIA LUZ SANTANA II ([id number]) 1950 M Date Time Provider Department 07/03/23 RUTH SULLIVAN4 During your visit today, we recorded the following information about you: Luis Underwood RN 07/03/2023 8:09 AM Signed Pt called to speak with Edith Roque RN about post-op symptoms. He states he was speaking with Dr. Sullivan last night, when his phone . Pt reports that his acid reflux symptoms are back, and uncomfortable. He reports this has been happening for the last 3-4 days, and wants to know if he should start taking pepcid again, or something else. Advised pt that I will forward his concern over to Edith Roque and Dr. Sullivan. Pt feels good otherwise, no further questions. Luis Underwood, AILIN Roque, Edith, RN 07/03/2023 12:22 PM Signed I called Bernabe this morning an told him I left him a message at 4:30 on 06/30, again yesterday at 12:30 AND :30. Bernabe said he thought it was odd he didn't hear from me "because you always call me back. That's why I called Dr. Sullivan's office. Then my phone when I went to black pickler the call. They had to reset my phone to get it to work." I asked Bernabe for more detail about the message he left on Thursday stating he has heartburn again. Bernabe said "I've had twinges of heartburn here and there and then Thursday it really started to hurt around 3 pm. Before surgery the burning was in my throat and I would call it irritating but this burning was in the middle of my chest and it hurts. I went back on my famotidine twice a day and it much better." Patient denies the heartburn being related to eating or drinking. He also denies nate N/V, constipation or diarrhea. Patient's 24 hour diet recall: ~breakfast-oatmeal, prunes AND 1 cup Fairlife milk ~snack-kamaljit crackers and 1 cup Fairlife milk ~Lunch-canned chicken w/veggie hand, green beans AND protein shake ~snack-kamaljit crackers AND 1 cup Fairlife milk ~Dinner-cod, [employer]ian yogurt AND green beans Bernabe said he has been moving his bowels every morning since he started adding the prunes to his oatmeal and added a stool softener every evening. Bernabe and I discussed his diet and came up with this new plan: ~stop drinking milk, but OK to eat yogurt AND cheese ~continue taking the Famotidine twice a day ~Continue eating prunes AND taking a daily stool softener Bernabe asked if he could decrease his famotidine to daily, as it causes him to get brain fog, which his PCP agreed it can cause in older adults. I asked him to stay on the Famotidine twice a day for a week and lets see if withholding the milk makes any difference. He agreed. We also discussed that he could decrease his protein intake to 60 gms/daily vs. 80 gms/day. Patient agreed to call me with any other questions. Edith Roque RN Allergies As of Date: 07/03/2023 Noted Allergy Reaction CORTICOSTEROIDS (GLUCOCORTICOIDS) 07/08/2018 14 - Other: See Comments 12 - Shortness of Breath EGG DERIVED 07/08/2018 14 - Other: See Comments FLUCONAZOLE 05/21/2023 5 - Intolerance 12 - Shortness of Breath LEVAQUIN (LEVOFLOXACIN) 03/13/2023 2 - Rash MILK CONTAINING PRODUCTS (DAIRY) 07/08/2018 6 - Diarrhea OMEPRAZOLE 03/13/2023 9 - Itching PENICILLINS 10/01/2013 7 - Swelling Comments: swelling of tongue PROTONIX (PANTOPRAZOLE) 03/13/2023 9 - Itching STEROIDS (BETAMETHASONE DIPROPION*05/10/2015 7 - Swelling Comments: Tongue swelling ULORIC (FEBUXOSTAT) 03/13/2023 2 - Rash Date Reviewed: 06/03/2023 Reviewed by: Ruth Sullivan MD - Fully Assessed Reason for Visit: Patient Question [1477] Returning Patient's Call [408] Prescriptions as of 07/03/2023 - nystatin (MYCOSTATIN) 100,000 unit/mL suspension swish and spit 1 ml BY MOUTH FOUR TIMES DAILY for 1 minute - dilTIAZem (CARDIZEM) 60 mg tablet Take 1 tablet by mouth every 12 hours. - famotidine (PEPCID) 20 mg tablet Take 1 tablet by mouth every 12 hours. - lisinopril (ZESTRIL) 20 mg tablet Take 1 tablet by mouth every 12 hours. - ergocalciferol 50,000 unit capsule (VITAMIN D2, DRISDOL) Take 1 capsule by mouth one time a week. - allopurinol (ZYLOPRIM) 100 mg tablet Take 200 mg by mouth once daily. - loratadine (CLARITIN) 10 mg tablet Take 10 mg by mouth as needed for cold/allergy symptoms. - hydrochlorothiazide 12.5 mg tablet Take 12.5 mg by mouth once daily. Two tablets Problem List As Of Date 07/03/2023 Noted Resolved Pain in thoracic spine [M54.6] 04/20/2023 Pre-op exam [Z01.818] 05/05/2023 Paraesophageal hernia [K44.9] 05/05/2023 Tachyarrhythmia [R00.0] 05/05/2023 Migraine with aura [G43.109] 05/05/2023 History of kidney cancer [Z85.528] 05/05/2023 STEPHANY (obstructive sleep apnea) [G47.33] 05/05/2023 Primary hypertension [I10] 05/05/2023 Other specified anemias [D64.89] 05/05/2023 Encounter Status:Closed by STEPHY UNDERWOOD (more content not included)... [facility] (AGGENS4) MARIA LUZ SANTANA II ([id number]) 1950 M Date Time Provider Department 06/29/23 RUTH SULLIVAN4 During your visit today, we recorded the following information about you: Edith Roque, AILIN 06/29/2023 2:29 PM Signed Patient called because he continues to have issues with constipation. Patient has been taking colace three times a day, drinking at least 70 oz/fluid/day, taking Miralax daily for the last 3 days. He has a hard stool yesterday after using an enema, but did not feel like he completed his bowel movement. "My belly got soft after the bowel movement yesterday but it is hard and distended again today." Patient had daily bowel movements before surgery. Patient's diet in the last 24 hours: Breakfast: oatmeal with cut up prunes Lunch #`:protein shake made w/[employer] milk, [place] Lucian yogurt, greens and protein powder (split into 2 meals). Lunch#2 : canned chicken, apple, pear Dinner: canned tuna I told Bernabe he is doing everything correctly. His last colonoscopy was 2014 and was normal. I told him I would share this info with Dr. Sullivan and ask her for recommendations. Edith Roque RN Allergies As of Date: 06/29/2023 Noted Allergy Reaction CORTICOSTEROIDS (GLUCOCORTICOIDS) 07/08/2018 14 - Other: See Comments 12 - Shortness of Breath EGG DERIVED 07/08/2018 14 - Other: See Comments FLUCONAZOLE 05/21/2023 5 - Intolerance 12 - Shortness of Breath LEVAQUIN (LEVOFLOXACIN) 03/13/2023 2 - Rash MILK CONTAINING PRODUCTS (DAIRY) 07/08/2018 6 - Diarrhea OMEPRAZOLE 03/13/2023 9 - Itching PENICILLINS 10/01/2013 7 - Swelling Comments: swelling of tongue PROTONIX (PANTOPRAZOLE) 03/13/2023 9 - Itching STEROIDS (BETAMETHASONE DIPROPION*05/10/2015 7 - Swelling Comments: Tongue swelling ULORIC (FEBUXOSTAT) 03/13/2023 2 - Rash Date Reviewed: 06/03/2023 Reviewed by: Ruth Sullivan MD - Fully Assessed Reason for Visit: Patient Question [8917] Prescriptions as of 06/29/2023 - nystatin (MYCOSTATIN) 100,000 unit/mL suspension swish and spit 1 ml BY MOUTH FOUR TIMES DAILY for 1 minute - dilTIAZem (CARDIZEM) 60 mg tablet Take 1 tablet by mouth every 12 hours. - famotidine (PEPCID) 20 mg tablet Take 1 tablet by mouth every 12 hours. - lisinopril (ZESTRIL) 20 mg tablet Take 1 tablet by mouth every 12 hours. - ergocalciferol 50,000 unit capsule (VITAMIN D2, DRISDOL) Take 1 capsule by mouth one time a week. - allopurinol (ZYLOPRIM) 100 mg tablet Take 200 mg by mouth once daily. - loratadine (CLARITIN) 10 mg tablet Take 10 mg by mouth as needed for cold/allergy symptoms. - hydrochlorothiazide 12.5 mg tablet Take 12.5 mg by mouth once daily. Two tablets Problem List As Of Date 06/29/2023 Noted Resolved Pain in thoracic spine [M54.6] 04/20/2023 Pre-op exam [Z01.818] 05/05/2023 Paraesophageal hernia [K44.9] 05/05/2023 Tachyarrhythmia [R00.0] 05/05/2023 Migraine with aura [G43.109] 05/05/2023 History of kidney cancer [Z85.528] 05/05/2023 STEPHANY (obstructive sleep apnea) [G47.33] 05/05/2023 Primary hypertension [I10] 05/05/2023 Other specified anemias [D64.89] 05/05/2023 Encounter Status:Closed by EDITH ROQUE on 06/29/23 [facility] 06-22-2023 CNPN Telephone (AGGENS4) MARIA LUZ SANTANA II ([id number]) 1950 M Date Time Provider Department 06/22/23 RUTH SULLIVAN4 During your visit today, we recorded the following information about you: Edith Roque, RN 06/22/2023 10:06 AM Signed Patient called with complaints of constipation. He is only moving his bowels every 3 days with the assist of a suppository. He is passing hard stool . Patient denies taking any stool softeners or laxatives. Patient is either walking 40-50 minutes/day or riding his bike 40 minutes/day. He reports getting 80 grams of protein/day. We reviewed options and settled on Bernabe adding a daily stool softener, like Colace, and eating a few prunes daily. I also recommended that he take a dose of Miralax today to get things moving. Patient agreed with the plan. Patient still has thrush. His PCP prescribed Diflucan, but patient "had a reaction to it" so he was put on Nystatin, 100,000 units QID swish and spit, but it's not working. I recommended to Bernabe that he make sure he is taking the Nystatin after meals and before bedtime and that he swallow the Nystatin not spit it out. Bernabe said his PCP did give him those instructions. Bernabe has an appointment with his PCP today about the thrush. I asked him to update me on his constipation in a week; he agreed. Edith Roque RN Allergies As of Date: 06/22/2023 Noted Allergy Reaction CORTICOSTEROIDS (GLUCOCORTICOIDS) 07/08/2018 14 - Other: See Comments 12 - Shortness of Breath EGG DERIVED 07/08/2018 14 - Other: See Comments FLUCONAZOLE 05/21/2023 5 - Intolerance 12 - Shortness of Breath LEVAQUIN (LEVOFLOXACIN) 03/13/2023 2 - Rash MILK CONTAINING PRODUCTS (DAIRY) 07/08/2018 6 - Diarrhea OMEPRAZOLE 03/13/2023 9 - Itching PENICILLINS 10/01/2013 7 - Swelling Comments: swelling of tongue PROTONIX (PANTOPRAZOLE) 03/13/2023 9 - Itching STEROIDS (BETAMETHASONE DIPROPION*05/10/2015 7 - Swelling Comments: Tongue swelling ULORIC (FEBUXOSTAT) 03/13/2023 2 - Rash Date Reviewed: 06/03/2023 Reviewed by: Ruth Sullivan MD - Fully Assessed Reason for Visit: Patient Question [1477] Prescriptions as of 06/22/2023 - nystatin (MYCOSTATIN) 100,000 unit/mL suspension swish and spit 1 ml BY MOUTH FOUR TIMES DAILY for 1 minute - dilTIAZem (CARDIZEM) 60 mg tablet Take 1 tablet by mouth every 12 hours. - famotidine (PEPCID) 20 mg tablet Take 1 tablet by mouth every 12 hours. - lisinopril (ZESTRIL) 20 mg tablet Take 1 tablet by mouth every 12 hours. - ergocalciferol 50,000 unit capsule (VITAMIN D2, DRISDOL) Take 1 capsule by mouth one time a week. - allopurinol (ZYLOPRIM) 100 mg tablet Take 200 mg by mouth once daily. - loratadine (CLARITIN) 10 mg tablet Take 10 mg by mouth as needed for cold/allergy symptoms. - hydrochlorothiazide 12.5 mg tablet Take 12.5 mg by mouth once daily. Two tablets Problem List As Of Date 06/22/2023 Noted Resolved Pain in thoracic spine [M54.6] 04/20/2023 Pre-op exam [Z01.818] 05/05/2023 Paraesophageal hernia [K44.9] 05/05/2023 Tachyarrhythmia [R00.0] 05/05/2023 Migraine with aura [G43.109] 05/05/2023 History of kidney cancer [Z85.528] 05/05/2023 STEPHANY (obstructive sleep apnea) [G47.33] 05/05/2023 Primary hypertension [I10] 05/05/2023 Other specified anemias [D64.89] 05/05/2023 Encounter Status:Closed by EDITH ROQUE on 06/22/23 [facility]OVon 06-03-2023 CNOV Office Visit (AGGENS 4) MARIA LUZ SANTANA Iris BOOTHE ([id number]) 1950 M Date Time Provider Department 06/03/23 9:00 AM RUTH SULLIVAN AGGENS4 During your visit today, we recorded the following information about you: Pulse Blood pressure Weight Height 51/minute 112/67 88 kg 1.778 m Ruth Sullivan MD 06/03/2023 9:36 AM Signed SURGICAL SERVICES HISTORY AND PHYSICAL EXAMINATION SERVICE DATE: 06/03/2023 SERVICE TIME: 9:29 AM PRIMARY CARE PHYSICIAN: Ana Casiano MD SUBJECTIVE CHIEF COMPLAINT: follow up after hernia repair HISTORY OF PRESENT ILLNESS: Mr. Santana is a 72 year old male who is well known to me who presents for follow up in clinic after undergoing lap PEHR with Toupet fundoplication and mesh placement on 05/12/23. He presents today with his . He denies fever, chills, nausea, emesis, difficulty with oral intake, or diarrhea. He did initially have constipation, but this has resolved. He does have a lump at the 12-mm port site which is consistent on exam to a hematoma/seroma at the site of the fascial stitch. 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 Gill COLONOSCOPY 01/18/2015 EGD 01/18/2015 EGD WITH BIOPSY(S) 12/22/2022 medium hiatal hernia; Anthony's without dysplasia; Dr. Gill ESOPHAGEAL MANOMETRY 03/13/2023 Dr. Sullivan EXTENSIVE JAW SURGERY INGUINAL HERNIA REPAIR HX Left 10/11/1979 open LAPS RPR PARAESPHGL HRNA INCL FUNDPLSTY W/MESH 05/12/2023 Toupet; Dr. Sullivan NEPHRECTOMY PARTIAL Left 2020 VASECTOMY UNI/BI SPX W/POSTOP SEMEN EXAMS FAMILY HISTORY: FAMILY HISTORY Problem Relation Age of Onset Allergies Mother Diabetes Mother Hypertension Mother Stroke Mother Coronary Artery Disease Father 60 [place] x 3 Blood Disease Father Heart Father SOCIAL HISTORY: Social History Tobacco Use Smoking status: Never Smokeless tobacco: Never Vaping Use Vaping Use: Never used Substance Use Topics Alcohol use: Yes Comment: [id number]-3-8 times monthly Drug use: No MEDICATIONS: Current Outpatient Medications Medication Sig nystatin (MYCOSTATIN) 100,000 unit/mL suspension swish and spit 1 ml BY MOUTH FOUR TIMES DAILY for 1 minute dilTIAZem (CARDIZEM) 60 mg tablet Take 1 tablet by mouth every 12 hours. famotidine (PEPCID) 20 mg tablet Take 1 tablet by mouth every 12 hours. lisinopril (ZESTRIL) 20 mg tablet Take 1 tablet by mouth every 12 hours. ergocalciferol 50,000 unit capsule (VITAMIN D2, DRISDOL) Take 1 capsule by mouth one time a week. allopurinol (ZYLOPRIM) 100 mg tablet Take 200 mg by mouth once daily. loratadine (CLARITIN) 10 mg tablet Take 10 mg by mouth as needed for cold/allergy symptoms. hydrochlorothiazide 12.5 mg tablet Take 12.5 mg by mouth once daily. Two tablets No current facility-administered medications for this visit. ALLERGIES: ALLERGIES Allergen Reactions Corticosteroids (Gl* Other: See Comments, Shortness of Breath Egg Derived Other: See Comments Fluconazole Intolerance, Shortness of Breath Levaquin [Levofloxa* Rash Milk Containing Pro* Diarrhea [...] palpitations, orthopnea, leg swelling and PND. Gastrointestinal: Negative for abdominal pain, blood in stool, constipation, diarrhea, heartburn, nausea and vomiting. Genitourinary: Negative for dysuria, frequency, hematuria and urgency. Musculoskeletal: Negative for back pain, falls, joint pain, myalgias and neck pain. Skin: Negative for itching and rash. Neurological: Negative for dizziness, speech change, focal weakness, seizures, loss of consciousness, weakness and headaches. Endo/Heme/Allergies: Does not bruise/bleed easily. Psychiatric/Behavioral: Negative for depression, hallucinations, memory loss, substance abuse and suicidal ideas. The patient is not nervous/a (more content not included)... Normal [facility] Amy 05-28-2023 [facility] Telephone (AGGENS4) MARIA LUZ SANTANA II ([id number]) 1950 M Date Time Provider Department 05/28/23 RUTH SULLIVAN4 During your visit today, we recorded the following information about you: Edith Roque RN 05/28/2023 10:21 AM Signed Patient called and had a couple of questions as he enters his 3rd week post op. Patient stated that before surgery he had a lot of difficulty swallowing foods. He is starting to advance to soft foods like fish and canned fruit but is worried it will get stuck. I recommended that Bernabe start by pureeing these foods to make sure they go down. As he feels more comfortable and confident, he can start chewing his foods thoroughly and swallowing. Patient said that would make him more comfortable and agreed with the plan. Patient is scheduled to have his teeth cleaned on 06/03/23 and asked if that was OK. He will be 22 days post op and I agreed that should be OK. Edith Roque RN Allergies As of Date: 05/28/2023 Noted Allergy Reaction CORTICOSTEROIDS (GLUCOCORTICOIDS) 07/08/2018 14 - Other: See Comments 12 - Shortness of Breath EGG DERIVED 07/08/2018 14 - Other: See Comments LEVAQUIN (LEVOFLOXACIN) 03/13/2023 2 - Rash MILK CONTAINING PRODUCTS (DAIRY) 07/08/2018 6 - Diarrhea OMEPRAZOLE 03/13/2023 9 - Itching PENICILLINS 10/01/2013 7 - Swelling Comments: swelling of tongue PROTONIX (PANTOPRAZOLE) 03/13/2023 9 - Itching STEROIDS (BETAMETHASONE DIPROPION*05/10/2015 7 - Swelling Comments: Tongue swelling ULORIC (FEBUXOSTAT) 03/13/2023 2 - Rash Date Reviewed: 05/12/2023 Reviewed by: Karishma Longoria RN - Fully Assessed Reason for Visit: Patient Question [5087] Prescriptions as of 05/28/2023 - lisinopril (ZESTRIL) 20 mg tablet Take 1 tablet by mouth every 12 hours. - ergocalciferol 50,000 unit capsule (VITAMIN D2, DRISDOL) Take 1 capsule by mouth one time a week. - DILT-XR 120 mg 24 hr capsule - famotidine (PEPCID) 40 mg tablet Take 40 mg by mouth once daily. - allopurinol (ZYLOPRIM) 100 mg tablet Take 200 mg by mouth once daily. - loratadine (CLARITIN) 10 mg tablet Take 10 mg by mouth as needed for cold/allergy symptoms. - hydrochlorothiazide 12.5 mg tablet Take 12.5 mg by mouth once daily. Two tablets Problem List As Of Date 05/28/2023 Noted Resolved Pain in thoracic spine [M54.6] 04/20/2023 Pre-op exam [Z01.818] 05/05/2023 Paraesophageal hernia [K44.9] 05/05/2023 Tachyarrhythmia [R00.0] 05/05/2023 Migraine with aura [G43.109] 05/05/2023 History of kidney cancer [Z85.528] 05/05/2023 STEPHANY (obstructive sleep apnea) [G47.33] 05/05/2023 Primary hypertension [I10] 05/05/2023 Other specified anemias [D64.89] 05/05/2023 Encounter Status:Closed by [facility] (AG[facility]ENS4) MARIA LUZ SANTANA II ([id number]) 1950 M Date Time Provider Department 05/18/23 RUTH SULLIVAN AGGENS4 During your visit today, we recorded the following information about you: Edith Roque RN 05/18/2023 10:31 AM Signed Patient called and left a message this morning asking for a return call. When I returned his call Bernabe informed me that he had his DILT-XR 24 hour capsule changed to tablets that he was crushing and taking with water. He was having a hard time getting all the crushed tablet out of the glass so his pharmacist recommended that he quarter the tablets and swallow them. Bernabe has noticed his mouth and throat is sore and he has noticed a difference in his voice. Bernabe also reports a "acidy taste in my mouth". I asked Bernabe to go to a mirror, stick his tongue out and report what he sees. "Yeah, it looks weird, there is a white coating all over my tongue." I told him I suspect he may have thrush, from his symptoms and I will share that info with Dr. Sullivan. If she sends in a prescription to his [facility] pharmacy I will call him back. Patient stated he is drinking without difficulty, he has moved his bowels and is back to "being regular". Patient states his abdominal distension is gone and he has been doing his walking. I told him to keep up the good work. Bernabe said he is grateful that we offer follow up phone calls once the patient is out of the hospital. It is really nice to be able to reach out to someone to make sure you are doing everything right." I told him it was my pleasure to help him recover. Edith Fields RN, RN 05/19/2023 1:55 PM Signed I called patient back and let him know that Dr. Sullivan ordered medication for him and it should be at his pharmacy in [place]. I let him know if that if the medication does not work he is to call his PCP as he may need further workup. Patient agreed with the plan and thanked me for the call. Edith Roque RN Allergies As of Date: 05/18/2023 Noted Allergy Reaction CORTICOSTEROIDS (GLUCOCORTICOIDS) 07/08/2018 14 - Other: See Comments 12 - Shortness of Breath EGG DERIVED 07/08/2018 14 - Other: See Comments LEVAQUIN (LEVOFLOXACIN) 03/13/2023 2 - Rash MILK CONTAINING PRODUCTS (DAIRY) 07/08/2018 6 - Diarrhea OMEPRAZOLE 03/13/2023 9 - Itching PENICILLINS 10/01/2013 7 - Swelling Comments: swelling of tongue PROTONIX (PANTOPRAZOLE) 03/13/2023 9 - Itching STEROIDS (BETAMETHASONE DIPROPION*05/10/2015 7 - Swelling Comments: Tongue swelling ULORIC (FEBUXOSTAT) 03/13/2023 2 - Rash Date Reviewed: 05/12/2023 Reviewed by: Karishma Longoria RN - Fully Assessed Reason for Visit: Returning Patient's Call [408] Prescriptions as of 05/19/2023 - fluconazole (DIFLUCAN) 100 mg tablet Take 1 tablet by mouth once daily for 7 days. - lisinopril (ZESTRIL) 20 mg tablet Take 1 tablet by mouth every 12 hours. - ergocalciferol 50,000 unit capsule (VITAMIN D2, DRISDOL) Take 1 capsule by mouth one time a week. - DILT-XR 120 mg 24 hr capsule - famotidine (PEPCID) 40 mg tablet Take 40 mg by mouth once daily. - allopurinol (ZYLOPRIM) 100 mg tablet Take 200 mg by mouth once daily. - loratadine (CLARITIN) 10 mg tablet Take 10 mg by mouth as needed for cold/allergy symptoms. - hydrochlorothiazide 12.5 mg tablet Take 12.5 mg by mouth once daily. Two tablets Problem List As Of Date 05/18/2023 Noted Resolved Pain in thoracic spine [M54.6] 04/20/2023 Pre-op exam [Z01.818] 05/05/2023 Paraesophageal hernia [K44.9] 05/05/2023 Tachyarrhythmia [R00.0] 05/05/2023 Migraine with aura [G43.109] 05/05/2023 History of kidney cancer [Z85.528] 05/05/2023 STEPHANY (obstructive sleep apnea) [G47.33] 05/05/2023 Primary hypertension [I10] 05/05/2023 Other specified anemias [D64.89] 05/05/2023 Encounter Status:Closed by EDITH ROQUE on 05/18/23 [facility] 05-15-2023 [facility] Telephone (AGGENS4) MARIA LUZ SANTANA II ([id number]) 1950 M Date Time Provider Department 05/15/23 RUTH SULLIVAN4 During your visit today, we recorded the following information about you: Edith Roque RN 05/15/2023 12:34 PM Signed Patient called concerned that he needs to thin out his protein shakes ([employer] brand) and sip small mouthfuls to get it down. I assured him this is normal during the initial phase of his recovery. Patient reports that water goes down without difficulty, but if he drinks a big mouthful or too quickly if feels like it backs up. I get a little nauseated, but not to the point I need to throw up." I asked patient if he has moved his bowels yet and he replied no. He reports his abdomen is distended and firm and he is passing some flatus. Patient's , Ira, came to the phone and reported that Bernabe took 1 dose of Miralax initially when he was discharged home and then took another dose this morning. I told them both is was time for a different approach and recommended that Bernabe either use a Dulcolax suppository or a Fleets enema today. Patient agreed with the plan. Edith Roque RN Allergies As of Date: 05/15/2023 Noted Allergy Reaction CORTICOSTEROIDS (GLUCOCORTICOIDS) 07/08/2018 14 - Other: See Comments 12 - Shortness of Breath EGG DERIVED 07/08/2018 14 - Other: See Comments LEVAQUIN (LEVOFLOXACIN) 03/13/2023 2 - Rash MILK CONTAINING PRODUCTS (DAIRY) 07/08/2018 6 - Diarrhea OMEPRAZOLE 03/13/2023 9 - Itching PENICILLINS 10/01/2013 7 - Swelling Comments: swelling of tongue PROTONIX (PANTOPRAZOLE) 03/13/2023 9 - Itching STEROIDS (BETAMETHASONE DIPROPION*05/10/2015 7 - Swelling Comments: Tongue swelling ULORIC (FEBUXOSTAT) 03/13/2023 2 - Rash Date Reviewed: 05/12/2023 Reviewed by: Karishma Longoria, AILIN - Fully Assessed Reason for Visit: Patient Question [4867] Prescriptions as of 05/15/2023 - ondansetron (ZOFRAN) 4 mg tablet Take 1 tablet by mouth every 8 hours as needed for nausea/vomiting for up to 4 days. - traMADol (ULTRAM) 50 mg tablet Take 1 tablet by mouth every 8 hours as needed for pain for up to 2 days. - lisinopril (ZESTRIL) 20 mg tablet Take 1 tablet by mouth every 12 hours. - ergocalciferol 50,000 unit capsule (VITAMIN D2, DRISDOL) Take 1 capsule by mouth one time a week. - DILT-XR 120 mg 24 hr capsule - famotidine (PEPCID) 40 mg tablet Take 40 mg by mouth once daily. - allopurinol (ZYLOPRIM) 100 mg tablet Take 200 mg by mouth once daily. - loratadine (CLARITIN) 10 mg tablet Take 10 mg by mouth as needed for cold/allergy symptoms. - hydrochlorothiazide 12.5 mg tablet Take 12.5 mg by mouth once daily. Two tablets Problem List As Of Date 05/15/2023 Noted Resolved Pain in thoracic spine [M54.6] 04/20/2023 Pre-op exam [Z01.818] 05/05/2023 Paraesophageal hernia [K44.9] 05/05/2023 Tachyarrhythmia [R00.0] 05/05/2023 Migraine with aura [G43.109] 05/05/2023 History of kidney cancer [Z85.528] 05/05/2023 STEPHANY (obstructive sleep apnea) [G47.33] 05/05/2023 Primary hypertension [I10] 05/05/2023 Other specified anemias [D64.89] 05/05/2023 Encounter Status:Closed by EDITH ROQUE on 05/15/23 [facility] Telephone (AGGENS4) MARIA LUZ SANTANA II ([id number]) 1950 M Date Time Provider Department 05/14/23 RUTH SULLIVAN4 During your visit today, we recorded the following information about you: Mary Beth Demarco MA 05/14/2023 12:27 PM Signed The Su called in stating they were under the impression the Zofran was going to be quick dissolve but after they got it home they realized it was not. The is concerned that her may chock or have difficulty with the current Zofran and would prefer the quick dissolve Zofran called in if you could do that? Mary Beth Demarco MA 05/14/2023 1:53 PM Signed The Zofran pills that he was given are fine to swallow. They should not cause an issue with his fundoplication Called and spoke with and gave above message. She understood. Mary Beth Demarco MA Allergies As of Date: 05/14/2023 Noted Allergy Reaction CORTICOSTEROIDS (GLUCOCORTICOIDS) 07/08/2018 14 - Other: See Comments 12 - Shortness of Breath EGG DERIVED 07/08/2018 14 - Other: See Comments LEVAQUIN (LEVOFLOXACIN) 03/13/2023 2 - Rash MILK CONTAINING PRODUCTS (DAIRY) 07/08/2018 6 - Diarrhea OMEPRAZOLE 03/13/2023 9 - Itching PENICILLINS 10/01/2013 7 - Swelling Comments: swelling of tongue PROTONIX (PANTOPRAZOLE) 03/13/2023 9 - Itching STEROIDS (BETAMETHASONE DIPROPION*05/10/2015 7 - Swelling Comments: Tongue swelling ULORIC (FEBUXOSTAT) 03/13/2023 2 - Rash Date Reviewed: 05/12/2023 Reviewed by: Karishma Longoria RN - Fully Assessed Reason for Visit: Medication Problem [65] Cmt: Zofran Prescriptions as of 05/14/2023 - ondansetron (ZOFRAN) 4 mg tablet Take 1 tablet by mouth every 8 hours as needed for nausea/vomiting for up to 4 days. - traMADol (ULTRAM) 50 mg tablet Take 1 tablet by mouth every 8 hours as needed for pain for up to 2 days. - lisinopril (ZESTRIL) 20 mg tablet Take 1 tablet by mouth every 12 hours. - ergocalciferol 50,000 unit capsule (VITAMIN D2, DRISDOL) Take 1 capsule by mouth one time a week. - DILT-XR 120 mg 24 hr capsule - famotidine (PEPCID) 40 mg tablet Take 40 mg by mouth once daily. - allopurinol (ZYLOPRIM) 100 mg tablet Take 200 mg by mouth once daily. - loratadine (CLARITIN) 10 mg tablet Take 10 mg by mouth as needed for cold/allergy symptoms. - hydrochlorothiazide 12.5 mg tablet Take 12.5 mg by mouth once daily. Two tablets Problem List As Of Date 05/14/2023 Noted Resolved Pain in thoracic spine [M54.6] 04/20/2023 Pre-op exam [Z01.818] 05/05/2023 Paraesophageal hernia [K44.9] 05/05/2023 Tachyarrhythmia [R00.0] 05/05/2023 Migraine with aura [G43.109] 05/05/2023 History of kidney cancer [Z85.528] 05/05/2023 STEPHANY (obstructive sleep apnea) [G47.33] 05/05/2023 Primary hypertension [I10] 05/05/2023 Other specified anemias [D64.89] 05/05/2023 Encounter Status:Closed by MARY BETH DEMARCO on 05/14/23 Normal [facility] Basic metabolic 2000 panelon 05-13-2023 Anion gap [Moles/Vol] 13 mmol/L Normal 9-18 [facility] Comment on above: Order Comment: Speci men Type: BLOOD SPECIMEN Ordering Facility: Address: [address] [place] [address] Performed By: #### 2 4321-2 #### [facility] CLIA [id number] [address] [place] [address] [place] Calcium [Mass/Vol] 8.8 mg/dL Normal 8.5-10.2 [facility] Comment on above: Order Comment: Speci men Type: BLOOD SPECIMEN Ordering Facility: Address: [address] [place] [address] Performed By: #### 2 4321-2 #### [facility] CLIA [id number] [address] [place] [address] [place] Chloride [Moles/Vol] 100 mmol/L Normal 97-105 [facility] Comment on above: Order Comment: Rajeshi men Type: BLOOD SPECIMEN Ordering Facility: Address: [address] [place] [address] Performed By: #### 2 4321-2 #### [facility] CLIA [id number] [address] [place] CO2 [Moles/Vol] 25 mmol/L Normal 22-30 [facility] Comment on above: Order Comment: Speci men Type: BLOOD SPECIMEN Ordering Facility: Address: [address] [place] [address] Performed By: #### 2 4321-2 #### [facility] CLIA [id number] [address] [place] Creatinine [Mass/Vol] 1.06 mg/dL Normal 0.73-1.22 [facility] Comment on above: Order Comment: Speci men Type: BLOOD SPECIMEN Ordering Facility: Address: [address] [place] [address] Performed By: #### 2 4321-2 #### [facility] CLIA [id number] [address] Creatinine and Glomerular filtration rate.predicted panel (S/P/Bld) 75 mL/min/1.73m??? Normal >=60 [facility] Comment on above: Order Comment: Speci men Type: BLOOD SPECIMEN Ordering Facility: Address: [address] [place] [address] Result Comment: Tasha mated Glomerular Filtration Rate (eGFR) is calculated using the 2020 CKD-EPI creatinine equation. This equation utilizes serum creatinine, sex, and age as parameters. The creatinine assay has traceable calibration to isotope dilution-mass spectrometry. Refer to KDIGO guidelines for clinical interpretation. In patients with unstable renal function, e.g. those with acute kidney injury, the eGFR may not accurately reflect actual GFR. Performed By: #### 2 4321-2 #### [facility] CLIA [id number] [address] [place] Glucose [Mass/Vol] 110 mg/dL High 74-99 [facility] Comment on above: Order Comment: Speci men Type: BLOOD SPECIMEN Ordering Facility: Address: [address] [place] [address] Result Comment: The [place] Diabetes Association (ADA) provides guidance for cutoff values for fasting glucose and random glucose. The ADA defines fasting as no caloric intake for at least 8 hours. Fasting plasma glucose results between 100 to 125 mg/dL indicate increased risk for diabetes (prediabetes). Fasting plasma glucose results greater than or equal to 126 mg/dL meet the criteria for diagnosis of diabetes. In the absence of unequivocal hyperglycemia, results should be confirmed by repeat testing. In a patient with classic symptoms of hyperglycemia or hyperglycemic crisis, random plasma glucose results greater than or equal to 200 mg/dL meet the criteria for diagnosis of diabetes. Reference: Standards of Medical Care in Diabetes 2016, [place] Diabetes Association. Diabetes Care. 2016.39(Suppl 1). Performed By: #### 2 4321-2 #### [facility] CLIA [id number] [address] STATES OF [facility] Potassium [Moles/Vol] 4.1 mmol/L Normal 3.7-5.1 [facility] Comment on above: Order Comment: Speci april Type: BLOOD SPECIMEN Ordering Facility: Address: [address] [place] [address] Performed By: #### 2 4321-2 #### [facility] CLIA [id number] [address] [place] Sodium [Moles/Vol] 138 mmol/L Normal 136-144 [facility] Comment on above: Order Comment: Rajeshi men Type: BLOOD SPECIMEN Ordering Facility: Address: [address] [place] [address] Performed By: #### 2 4321-2 #### [facility] CLIA [id number] [address] STATES [facility] Urea nitrogen [Mass/Vol] 22 mg/dL Normal 9-24 [facility] Comment on above: Order Comment: Rajeshi men Type: BLOOD SPECIMEN Ordering Facility: Address: [address] [place] [address] Performed By: #### 2 4321-2 #### [facility] CLIA [id number] [address] OF [facility] CASE MANAGEMon 05-13-2023 CASE MANAGEM HNO ID: [id number] Author: SORIN PATTERSON LISW Service: Social Work Author Type: Environmental Department Manager Type: Care Mgt Progress Note Filed: 05/13/2023 12:01 Note Text: CARE MANAGEMENT PROGRESS NOTE SERVICE DATE: 05/13/2023 SERVICE TIME: 12:00 PM LOS: 1 day IMM Follow Up Copy Given: Yes Copy given to:: Patient Method: In Person IMM letter given. Patient voiced understanding. SIGNATURE: ANABELLA Mcmanus PATIENT NAME: Maria Luz Santana II DATE: May 13, 2023 TIME: 12:00 PM PAGER/CONTACT #: [phone] [facility] CASE MGT INIT eJs 2023 CASE MGT INIT EILEEN HNO ID: [id number] Author: SORIN PATTERSON LISW Service: Social Work Author Type: Environmental Department Manager Type: Care Mgt Initial Assessment Filed: 05/13/2023 11:30 Note Text: CARE MANAGEMENT: ASSESSMENT AND DISCHARGE PLAN SERVICE DATE: May 13, 2023 SERVICE TIME: 11:27 AM PCP: Ana Casiano MD Primary Contact: Extended Emergency Contact Information Primary Emergency Contact: Ira Santana Mobile Relation: Spouse Admission Status: Inpatient Insurance Provider: MEDICARE A AND B Discharge Planning requested by: Per Department Practice Potential Transition Plans Home Advance Directives Current Advance Directive: Health Care Power of Csm Consultant In Chart: Yes Up To Date and Valid: Yes Current Living Arrangements and Support Lives with: Spouse/significant other Type of Residence: Private Residence (House) Does the patient have to climb stairs at home?: No Support: Spouse/significant other How do you manage to accomplish the following: Independent: Ambulation;Bathe/Shower ;Dress;Meals/Meal Prep;Going to the bathroom;Medication Management;Transportati on to appointments/community Current Services/Equipment Current Post-Acute Service(s): None Discharge Planning Patient Goal(s): Be able to go home, Independent living, General wellness Piqua of Choice Explained: Piqua of Choice Given: No Reason Not Given: No placements necessary Are you interested in bedside delivery of your medications? No Discharge Planning Participant(s): Patient;Spouse/signific ant other Patient/Family Comments: Caregiver Assessment: No caregiver needs. Transport at Discharge: will transport home. Needs Prior to Discharge: Needs Prior to Discharge: None Post-Acute Discharge Plan: Met with patient and his . They live in a one level home and have grab bars through out the house. No DME. No services in place.. +PCP,+advance directives. will transport home when medically ready. SIGNATURE: ANABELLA Mcmanus PATIENT NAME: aMria Luz Santana II DATE: May 13, 2023 TIME: 11:27 AM CONTACT #: [phone] Normal [facility] CBC W Auto Differential pane l (Bld)on 05-13-2023 Basophils (Bld) [#/Vol] 10*3/uL Normal <0.11 [facility] Comment on above: Order Comment: Speci men Type: BLOOD SPECIMEN Ordering Facility: Address: [address] [place] [address] Performed By: #### 5 7021-8 #### [facility] CLIA [id number] [address] [place] [address] [place] Basophils/100 WBC (Bld) 0.1 % Normal A [facility] Comment on above: Order Comment: Speci men Type: BLOOD SPECIMEN Ordering Facility: Address: [address] [place] [address] Performed By: #### 5 7021-8 #### [facility] CLIA [id number] [address] [place] [address] [place] Differential cell count method Nom (Bld) Auto Normal [facility] Comment on above: Order Comment: Speci men Type: BLOOD SPECIMEN Ordering Facility: Address: [address] [place] [address] Performed By: #### 5 7021-8 #### [facility] CLIA [id number] [address] [place] [address] [place] Eosinophils (Bld) [#/Vol] 10*3/uL Normal <0.46 [facility] Comment on above: Order Comment: Speci men Type: BLOOD SPECIMEN Ordering Facility: Address: [address] [place] [address] Performed By: #### 5 7021-8 #### [facility] CLIA [id number] [address] Eosinophils/100 WBC (Bld) 0.0 % Normal [facility] Comment on above: Order Comment: Speci men Type: BLOOD SPECIMEN Ordering Facility: Address: [address] [place] [address] Performed By: #### 5 7021-8 #### [facility] CLIA [id number] [address] [place] Erythrocyte distribution width (RBC) [Ratio] 13.9 % Normal 11.5-15.0 [facility] Comment on above: Order Comment: Speci men Type: BLOOD SPECIMEN Ordering Facility: Address: [address] [place] [address] Performed By: #### 5 7021-8 #### [facility] CLIA [id number] [address] Hematocrit (Bld) [Volume fraction] 35.6 % Low 39.0-51.0 [facility] Comment on above: Order Comment: Speci men Type: BLOOD SPECIMEN Ordering Facility: Address: [address] [place] [address] Performed By: #### 5 7021-8 #### [facility] CLIA [id number] [address] [place] Hemoglobin (Bld) [Mass/Vol] 12.0 g/dL Low 13.0-17.0 [facility] Comment on above: Order Comment: Speci men Type: BLOOD SPECIMEN Ordering Facility: Address: [address] [place] [address] Performed By: #### 5 7021-8 #### [facility] CLIA [id number] [address] [place] Immature granulocytes (Bld) [#/Vol] 0.06 10*3/uL Normal <0.10 [facility] Comment on above: Order Comment: Speci men Type: BLOOD SPECIMEN Ordering Facility: Address: [address] [place] [address] Performed By: #### 5 7021-8 #### [facility] CLIA [id number] [address] Immature granulocytes/100 WBC (Bld) 0.8 % Normal [facility] Comment on above: Order Comment: Speci men Type: BLOOD SPECIMEN Ordering Facility: Address: [address] [place] [address] Performed By: #### 5 7021-8 #### [facility] CLIA [id number] [address] Lymphocytes (Bld) [#/Vol] 0.59 10*3/uL Low 1.00-4.00 [facility] Comment on above: Order Comment: Speci men Type: BLOOD SPECIMEN Ordering Facility: Address: [address] [place] [address] Performed By: #### 5 7021-8 #### [facility] CLIA [id number] [address] Lymphocytes/100 WBC (Bld) 7.4 % Normal [facility] Comment on above: Order Comment: Speci men Type: BLOOD SPECIMEN Ordering Facility: Address: [address] [place] [address] Performed By: #### 5 7021-8 #### [facility] CLIA [id number] [address] MCH (RBC) [Entitic mass] 31.7 pg Normal 26.0-34.0 [facility] Comment on above: Order Comment: Speci men Type: BLOOD SPECIMEN Ordering Facility: Address: [address] [place] [address] Performed By: #### 5 7021-8 #### [facility] CLIA [id number] [address] MCHC (RBC) [Mass/Vol] 33.7 g/dL Normal 30.5-36.0 [facility] Comment on above: Order Comment: Speci men Type: BLOOD SPECIMEN Ordering Facility: Address: [facility] [place] [address] Performed By: #### 5 7021-8 #### [facility] CLIA [id number] [address] [place] MCV (RBC) [Entitic vol] 94.2 fL Normal 80.0-100.0 [facility] Comment on above: Order Comment: Speci men Type: BLOOD SPECIMEN Ordering Facility: Address: [address] [place] [address] Performed By: #### 5 7021-8 #### [facility] CLIA [id number] [address] [place] Monocytes (Bld) [#/Vol] 0.63 10*3/uL Normal <0.87 [facility] Comment on above: Order Comment: Speci men Type: BLOOD SPECIMEN Ordering Facility: Address: [address] [place] [address] Performed By: #### 5 7021-8 #### [facility] CLIA [id number] [address] Monocytes/100 WBC (Bld) 7.9 % Normal [facility] Comment on above: Order Comment: Speci men Type: BLOOD SPECIMEN Ordering Facility: Address: [address] [place] [address] Performed By: #### 5 7021-8 #### [facility] CLIA [id number] [address] [place] Neutrophils (Bld) [#/Vol] 6.71 10*3/uL Normal 1.45-7.50 [facility] Comment on above: Order Comment: Speci men Type: BLOOD SPECIMEN Ordering Facility: Address: [address] [place] [address] Performed By: #### 5 7021-8 #### [facility] CLIA [id number] [address] [place] Neutrophils/100 WBC (Bld) 83.8 % Normal [facility] Comment on above: Order Comment: Speci men Type: BLOOD SPECIMEN Ordering Facility: Address: [address] [place] [address] Performed By: #### 5 7021-8 #### [facility] CLIA [id number] [address] [place] Nucleated RBC (Bld) [#/Vol] 10*3/uL Normal <0.01 [facility] Comment on above: Order Comment: Speci men Type: BLOOD SPECIMEN Ordering Facility: Address: [address] [place] [address] Performed By: #### 5 7021-8 #### [facility] CLIA [id number] [address] [place] Nucleated RBC/100 WBC (Bld) [Ratio] 0.0 /100 WBC Normal [facility] Comment on above: Order Comment: Speci men Type: BLOOD SPECIMEN Ordering Facility: Address: [address] [place] [address] Performed By: #### 5 7021-8 #### [facility] CLIA [id number] [address] [place] Platelet mean volume (Bld) [Entitic vol] 9.5 fL Normal 9.0-12.7 [facility] Comment on above: Order Comment: Speci men Type: BLOOD SPECIMEN Ordering Facility: Address: [address] [place] [address] Performed By: #### 5 7021-8 #### [facility] CLIA [id number] 1 [place] [address] [place] Platelets (Bld) [#/Vol] 146 10*3/uL Low 150-400 [facility] Comment on above: Order Comment: Speci men Type: BLOOD SPECIMEN Ordering Facility: Address: [address] [place] [address] Performed By: #### 5 7021-8 #### [facility] CLIA [id number] [address] STATES OF [facility] RBC (Bld) [#/Vol] 3.78 10*6/uL Low 4.20-6.00 [facility] Comment on above: Order Comment: Steven chen Type: BLOOD SPECIMEN Ordering Facility: Address: [address] [place] [address] Performed By: #### 5 7021-8 #### [facility] CLIA [id number] [address] WBC (Bld) [#/Vol] 8.00 10*3/uL Normal 3.70-11.00 [facility] Comment on above: Order Comment: Steven chen Type: BLOOD SPECIMEN Ordering Facility: Address: [address] [place] [address] Performed By: #### 5 7021-8 #### [facility] CLIA [id number] [address] CNDSon 05-13-2023 CNDS HNO ID: [id number] Author: RUTH SULLIVAN MD Service: General Surgery Author Type: Resident Type: Discharge Summary Filed: 05/13/2023 13:08 Note Text: Attestation signed by Ruth Sullivan MD at 05/13/2023 1:08 PM I saw and evaluated/examined the patient with the resident and personally participated in the brown components. I have reviewed the resident's note and discussed the case and management of the patient's care with the resident. I agree with the above assessment and plan unless otherwise noted below. Plan of care discussed with: Provider, RN, Patient. - greater than 30 min spent in d/c planning and instruction DISCHARGE SUMMARY PATIENT NAME: Maria Luz Santana II Code Status: Full Code Highest Readmission Risk Score: 10 The 30 day readmissions risk score is derived from an internally validated risk model which evaluates patient level characteristics, utilization history, medication orders and lab results up until the day of discharge. Patients with a score of 40 or above are considered highest risk for readmission. Specific patient level drivers will be listed at the bottom of the summary. Admission Information Admission Information ADMIT DATE: 05/12/2023 DISCHARGE DATE: 05/13/2023 MY DOCTORS AND MEDICAL TEAM: My Main Hospital Doctor: Ruth Sullivan MD Primary Care Provider: Ana Casiano MD My Medical Team Members: Treatment Team: Attending Provider: Ruth Sullivan MD MY CONDITION AT DISCHARGE: Stable REASON I WAS IN THE HOSPITAL: Paraesophageal hernia repair with fundoplication and mesh placement SUMMARY OF WHAT HAPPENED WHILE I WAS IN THE HOSPITAL: Patient presented to [facility] on 05/12/23 and underwent laparoscopic paraesophageal hernia repair with fundoplication and mesh placement. He tolerated the operation well without any immediate post operative complications. On 05/12, he was discharged in stable condition with instruction to follow up outpatient with Dr. Sullivan in 2 weeks and continue his liquid diet. OTHER PROBLEMS/DIAGNOSIS: Principal Problem: Paraesophageal hernia Resolved Problems: * No resolved hospital problems. * OPERATIONS PERFORMED WHILE IN THE HOSPITAL: Paraesophageal hernia repair with fundoplication and mesh placement IMPORTANT TEST/PROCEDURES: No procedures performed TEST RESULTS NOT AVAILABLE AT THIS TIME: No pending results Discharge Disposition Discharge Disposition: Home With Self Care Activity When You Leave the Hospital Other: Avoid heavy (>15 lbs) lifting, pushing, or pulling for the next 4 weeks You may shower when you get home. Avoid submerging your wounds in water (swimming, hot tubs, baths, etc) for the next 4 weeks Diet Instructions Other: Continue your liquid diet as instructed by Dr. Sullivan in office until you follow up for your post operative visit and are instructed otherwise. For Pain When You Leave the Hospital Use acetaminophen (Tylenol) as recommended on the bottle Wound/Surgical Site Care Apply heating pad as needed Apply ice packs as needed Call Your Doctor If Other: You are unable to tolerate a liquid diet. There is severe pain at the operative site You have persistent nausea/vomiting over 24 hours You have redness, swelling, pus or drainage from the wound Your temperature is greater than 101F Additional Provider to Provider Information: Patient presented to [facility] on 05/12/23 and underwent laparoscopic paraesophageal hernia repair with fundoplication and mesh placement. He tolerated the operation well without any immediate post operative complications. On 05/12, he was discharged in stable condition with instruction to follow up outpatient with Dr. Sullivan in 2 weeks and continue his liquid diet. Treatment Team: Attending Provider: Ruth Sullivan MD FOLLOW-UP APPOINTMENTS ALREADY SCHEDULED WITH A [facility] PROVIDER: Future Appointments Date Time Provider Department Center 06/03/2023 9:00 AM Ruth Sullivan MD [facility] [place] [facility] ALLERGIES Allergen Reactions Corticosteroids (Gl* Other: See Comments, Shortness of Breath Egg Derived Other: See Comments Levaquin [Levofloxa* Rash Milk Containing Pro* Diarrhea Omeprazole Itching Penicillins Swelling swelling of tongue Protonix [Pantopraz* Itching Steroids [Betametha* Swelling Tongue swelling Uloric [Febuxostat] Rash DISCHARGE MEDICATION: Medication List START taking these medications ondansetron 4 mg tablet Commonly known as: ZOFRAN Take 1 tablet by mouth every 8 hours as needed for nausea/vomiting for up to 4 days. traMADol 50 mg tablet Commonly known as: ULTRAM Take 1 tablet by mouth every 8 hours as needed for pain for up to 2 days. CONTINUE taking these medications allopurinol 100 mg tablet Commonly known as: ZYLOPRIM DIL (more content not included)... Normal [facility] CNPTila 05-13-2023 CNPN Telephone ([facility]) MARIA LUZ SANTANA II ([id number]) 1950 M Date Time Provider Department 05/13/23 RUTH [email or web address] During your visit today, we recorded the following information about you: Edith Roque RN 05/13/2023 5:39 PM Signed I called patient and spoke with both him and his , Ira, after hospital discharge home after lap Toupet procedure on 05/11/22: Swallowing: Patient states the liquids are going down slowly, but they are going down. Patient has had hiccups intermittently; I recommended he try so decaf tea or broth to see if the relaxed the hiccup. Voiding/color of urine: Instructed patient to sip liquids all day and to aim for his urine to be light in color like lemonade. Passing flatus: a little Moving bowels: no, instructed patient to take a dose of Miralax tomorrow; patient agreed Pain rating/use of medications: Patient denies pain. His picked up his prescription for Tramadol but is concerned about giving it to him as he seems very restless. Patient's last dose of Tramadol was on 05/12/23 at 2348 and his last dose of Tylenol was 05/13/23 at 0452. I recommended Bernabe use heat to his chest, neck and shoulders and to try a hot shower. Patient agreed. Inspection of incisions: skin glue intact Using incentive spirometer: Patient reports he can get incentive spirometer up to 2000 ml. I instructed him to continue using incentive spirometer for 10 breaths every hour while awake until he reaches his goal of 3000 ml. Patient agreed with the plan. Physical activity: Patient is ambulating without difficulty and climbing stairs at home. He asked if he could cut the grass and I said no. Patient's said they had talked about this and she will take care of the mowing. I reminded Bernabe of his physical restrictions of no lifting/pushing/pulling more than 10 lbs for 8 weeks. Follow up appt confirmation: 06/03/23. I explained that standing up and holding hands overhead to release any food/medications that feel stuck. We discussed the need to return to a liquid diet for 48 hours if something gets stuck to allow time for any swelling at the EG junction to resolve. Patient acknowledged understanding. I encouraged patient to call with any questions or concerns before his follow up appointment. Patient thanked me for the call. Edith Roque RN Allergies As of Date: 05/13/2023 Noted Allergy Reaction CORTICOSTEROIDS (GLUCOCORTICOIDS) 07/08/2018 14 - Other: See Comments 12 - Shortness of Breath EGG DERIVED 07/08/2018 14 - Other: See Comments LEVAQUIN (LEVOFLOXACIN) 03/13/2023 2 - Rash MILK CONTAINING PRODUCTS (DAIRY) 07/08/2018 6 - Diarrhea OMEPRAZOLE 03/13/2023 9 - Itching PENICILLINS 10/01/2013 7 - Swelling Comments: swelling of tongue PROTONIX (PANTOPRAZOLE) 03/13/2023 9 - Itching STEROIDS (BETAMETHASONE DIPROPION*05/10/2015 7 - Swelling Comments: Tongue swelling ULORIC (FEBUXOSTAT) 03/13/2023 2 - Rash Date Reviewed: 05/12/2023 Reviewed by: Karishma Longoria RN - Fully Assessed Reason for Visit: Hospital Follow Up [177] Prescriptions as of 05/13/2023 - ondansetron (ZOFRAN) 4 mg tablet Take 1 tablet by mouth every 8 hours as needed for nausea/vomiting for up to 4 days. - traMADol (ULTRAM) 50 mg tablet Take 1 tablet by mouth every 8 hours as needed for pain for up to 2 days. - lisinopril (ZESTRIL) 20 mg tablet Take 1 tablet by mouth every 12 hours. - ergocalciferol 50,000 unit capsule (VITAMIN D2, DRISDOL) Take 1 capsule by mouth one time a week. - DILT-XR 120 mg 24 hr capsule - famotidine (PEPCID) 40 mg tablet Take 40 mg by mouth once daily. - allopurinol (ZYLOPRIM) 100 mg tablet Take 200 mg by mouth once daily. -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 and fever. Neurological: Positive for: headaches. Negative for: seizures and strokes. Respiratory: Positive for: obstructive sleep apnea and CPAP/BiPAP compliant. Negative for: asthma, COPD, pneumonia within 6 weeks and URI < 2 weeks. Cardiovascular: tachyarrhythmia Positive for: hypertension Negative for: atrial fibrillation, CAD, chest pain, CHF, DVT/PE and hyperlipidemia. GI: See HPI. (more content not included)... Normal [facility] TYPE + SCREENon 05-05-2023 ABO O Normal [facility] Comment on above: Order Comment: Speci men Type: BLOOD SPECIMEN Ordering Facility: Address: [address] [place] [address] Performed By: #### T SCR #### [facility] CLIA [id number] [address] HISTORICAL AB SCR STATUS Negative Normal [facility] Comment on above: Order Comment: Speci men Type: BLOOD SPECIMEN Ordering Facility: Address: [address] [place] [address] Performed By: #### T SCR #### [facility] CLIA [id number] [address] Rh Nom (Bld) Positive Normal [facility] Comment on above: Order Comment: Speci men Type: BLOOD SPECIMEN Ordering Facility: Address: [facility] [place] [address] Performed By: #### T SCR #### [facility] CLIA [id number] [address] OF [facility] TYPE AND SCREEN EXPIRATION 06/04/2023 23:59 Normal [facility] Comment on above: Order Comment: Speci men Type: BLOOD SPECIMEN Ordering Facility: Address: [address] [place] [id number] Performed By: #### T SCR #### [facility] CLIA [id number] [address] Absolute lymphocyte countOrd ered By: Zayda Tinajero on 05-01-2023 Lymphocytes Auto (Unsp spec) [#/Vol] 1.21 10*3/uL 0.83-4.51 [facility] Automated lymphocyte count a s percentage of total leukocytesOrdered By: Zayda Tinajero on 05-01-2023 Lymphocytes/100 WBC Auto (Unsp spec) 17.4 % 19-41 [facility] Basophil percentageOrdered B y: Zayda Tinajero on 05-01-2023 Basophils/100 WBC (Bld) 0.6 % 0-1 [facility] Chloride [Moles/Vol] 106 mmol/L 98-107 [facility] Eosinophils/100 WBC (Bld) 2.9 % 0-5 [facility] Glucose [Mass/Vol] 107 mg/dL 74-106 [facility] Comment on above: Fasting Glucose resu lt from 100 to 125 mg/dL suggests IMPAIRED HOMEOSTASIS per A.D.A. criteria. Hemoglobin (Bld) [Mass/Vol] 13.6 g/dL 13.0-16.5 [facility] Monocytes/100 WBC (Bld) 8.8 % 0-10 [facility] Neutrophils (Bld) [#/Vol] 4.9 10*3/uL 2.0-7.7 [facility] Neutrophils/100 WBC (Bld) 69.9 % 47-70 [facility] Potassium [Moles/Vol] 3.5 mmol/L 3.5-5.1 [facility] Sodium [Moles/Vol] 140 mmol/L 136-145 [facility] WBC (Bld) [#/Vol] 6.9 10*3/uL 4.4-11.0 [facility] Determination of erythrocyte mean corpuscular volume (MCV)Ordered By: Zayda Tinajero on 05-01-2023 MCV (RBC) [Entitic vol] 94.8 fL 80-94 [facility] Erythrocyte distribution wid th ratioOrdered By: Zayda Tinajero on 05-01-2023 Erythrocyte distribution width (RBC) [Ratio] 14.1 % 11.6-14.6 [facility] Erythrocyte distribution wid th standard deviationOrdered By: Zayda Tinajero on 05-01-2023 Erythrocyte distribution width (RBC) [Entitic vol] 49.3 fL 35.1-43.9 [facility] Hematocrit Auto (Bld) [Volum e fraction]Ordered By: Zayda Tinajero on 05-01-2023 Hematocrit (Bld) [Volume fraction] 41.8 % 40-54 [facility] Immature granulocytes/100 WB C Auto (Bld)Ordered By: Zayda Tinajero on 05-01-2023 Immature granulocytes/100 WBC (Bld) 0.400 % 0.0-0.9 [facility] Comment on above: IG% - Immature Granu locytes (promyelocytes, myelocytes and metamyelocytes) > 1% indicates that a LEFT SHIFT is Present. Laboratory - Chemistry and C hemistry - challengeOrdered By: Zayda Tinajero on 05-01-2023 CO2 [Moles/Vol] 29.0 mmol/L 21.0-32.0 [facility] Urea nitrogen/Creatinine [Mass ratio] 15.2 mg/mg 10-20 [facility] Laboratory - Hematology and Cell countsOrdered By: Zayda Tinajero on 05-01-2023 MCH (RBC) [Entitic mass] 30.8 pg 27.0-32.0 [facility] MCHC (RBC) [Mass/Vol] 32.5 g/dL 32-36 [facility] Nucleated RBC/100 WBC (Bld) [Ratio] 0 % 0-5 [facility] Platelet mean volume (Bld) [Entitic vol] 9.2 fL 6.2-12.0 [facility] Platelets (Bld) [#/Vol] 207 10*3/uL 150-450 [facility] No Panel InformationOrdered By: Zayda Tinajero on 05-01-2023 Troponin I High Sensitivity 6 pg/mL 3.0-78.0 [facility] Comment on above: Please Note: New [place]ath[place] t Units and Gender Specific Reference Ranges. For more information see Policy Stat Procedure [employer] High Sensitivity Troponin (TNIH) and attachments. Estimated Creatinine Clearance Calc 60.91 ml/min [facility] Estimated GFR (MDRD) Amer 73 mL/min >60 [facility] Comment on above: GFR Calc Estimated GFR (MDRD) Non-Af Amer 60 mL/min >60 [facility] Comment on above: Non- GFR Calc RBC Auto (Bld) [#/Vol]Ordere d By: Zayda Tinajero on 05-01-2023 RBC (Bld) [#/Vol] 4.41 10*6/uL 4.6-6.2 [facility] Serum or plasma calcium [place] urement (mass/volume)Ordered By: Zayda Tinajero on 05-01-2023 Calcium [Mass/Vol] 9.4 mg/dL 8.5-10.1 [facility] Serum or plasma creatinine m easurement (mass/volume)Ordered By: Zayda Tinajero on 05-01-2023 Creatinine [Mass/Vol] 1.25 mg/dL 0.70-1.30 [facility] Comment on above: The validity of the calculated GFR & GFRAA in patients over 70 years has not been determined. Clinical correlation is essential. Serum or plasma urea nitroge n measurement (mass/volume)Ordered By: Zayda Tinajero on 05-01-2023 Urea nitrogen [Mass/Vol] 19 mg/dL 7-18 [facility] Thin prep Papanicolaou smear with manual screeningOrdered By: Zayda Tinajero on 05-01-2023 Thin prep Papanicolaou smear with manual screening 5 5-15 [facility] VICKIMARIA LUZ Iris ([id number]) 1950 M Date Time Provider Department 04/30/23 ALPA PEARSON AGGENS3 During your visit today, we recorded the following information about you: Alpa Pearson APRN.CNP 04/30/2023 11:48 AM Signed LVM on 04/28/23 for patient to call clinic with SOC updates. This is a second attempt. No call back. Will remove off of call schedule. Alpa Pearson APRN.CNP Allergies As of Date: 04/30/2023 Noted Allergy Reaction CORTICOSTEROIDS (GLUCOCORTICOIDS) 07/08/2018 14 - Other: See Comments 12 - Shortness of Breath EGG DERIVED 07/08/2018 14 - Other: See Comments LEVAQUIN (LEVOFLOXACIN) 03/13/2023 2 - Rash MILK CONTAINING PRODUCTS (DAIRY) 07/08/2018 6 - Diarrhea OMEPRAZOLE 03/13/2023 9 - Itching PENICILLINS 10/01/2013 7 - Swelling Comments: swelling of tongue PROTONIX (PANTOPRAZOLE) 03/13/2023 9 - Itching STEROIDS (BETAMETHASONE DIPROPION*05/10/2015 7 - Swelling Comments: Tongue swelling ULORIC (FEBUXOSTAT) 03/13/2023 2 - Rash Date Reviewed: 04/02/2023 Reviewed by: Ruth Sullivan MD - Fully Assessed Reason for Visit: Patient Update [1234] Prescriptions as of 04/30/2023 - ergocalciferol 50,000 unit capsule (VITAMIN D2, DRISDOL) Take 1 capsule by mouth one time a week. - DILT-XR 120 mg 24 hr capsule - famotidine (PEPCID) 40 mg tablet Take 40 mg by mouth once daily. - allopurinol (ZYLOPRIM) 100 mg tablet Take 200 mg by mouth once daily. - loratadine (CLARITIN) 10 mg tablet Take 10 mg by mouth once daily. - LISINOPRIL ORAL Take by mouth. - hydrochlorothiazide 12.5 mg tablet Take 12.5 mg by mouth once daily. Two tablets Problem List As Of Date 04/30/2023 Noted Resolved Pain in thoracic spine [M54.6] 04/20/2023 Encounter Status:Closed by ALPA PEARSON on 04/30/23 Normal [facility] Basophil percentageOrdered B y: Matt Hopkins on 04-20-2023 Bilirubin [Mass/Vol] 0.90 mg/dL 0.20-1.00 [facility] Comment on above: For patients on eltr ombopag therapy, use of [employer]ension [employer] TBIL is not recommended. Chloride [Moles/Vol] 107 mmol/L 98-107 [facility] Glucose [Mass/Vol] 101 mg/dL 74-106 [facility] Comment on above: Fasting Glucose resu lt from 100 to 125 mg/dL suggests IMPAIRED HOMEOSTASIS per A.D.A. criteria. Potassium [Moles/Vol] 3.9 mmol/L 3.5-5.1 [facility] Protein [Mass/Vol] 6.8 g/dL 6.4-8.2 [facility] Sodium [Moles/Vol] 142 mmol/L 136-145 [facility] Laboratory - Chemistry and C hemistry - challengeOrdered By: Matt Hopkins on 04-20-2023 Albumin/Globulin [Mass ratio] 1.1 {ratio} 0.9-2.4 [facility] ALP [Catalytic activity/Vol] 74 U/L 45-117 [facility] ALT [Catalytic activity/Vol] 28 U/L 16-61 [facility] CO2 [Moles/Vol] 30.0 mmol/L 21.0-32.0 [facility] Globulin (S) [Mass/Vol] 3.2 g/dL 2.2-4.2 [facility] Urea nitrogen/Creatinine [Mass ratio] 12.4 mg/mg 10-20 [facility] No Panel InformationOrdered By: Matt Hopkins on 04-20-2023 Estimated GFR (MDRD) Amer 82 mL/min >60 [facility] Comment on above: GFR Calc Estimated GFR (MDRD) Non-Af Amer 68 mL/min >60 [facility] Comment on above: Non- GFR Calc Parathyroid Hormone (Intact) 39.5 pg/mL 18.4-80.1 [facility] Vitamin D 25-Hydroxy 33.8 ng/mL [facility] Comment on above: Vitamin D 25(OH) Sta tus Range Deficiency <20 ng/mL (50nmol/L) Insufficiency 20 - 30 ng/mL (50 - 75 nmol/L) Sufficiency 30 - 100 ng/mL (75 - 250 nmol/L) Toxicity >100 ng/mL (>250 nmol/L) Serum or plasma calcium remington urement (mass/volume)Ordered By: Matt Hopkins on 04-20-2023 Calcium [Mass/Vol] 9.4 mg/dL 8.5-10.1 [facility] Serum or plasma creatinine m easurement (mass/volume)Ordered By: Mtat Hopkins on 04-20-2023 Creatinine [Mass/Vol] 1.13 mg/dL 0.70-1.30 [facility] Comment on above: The validity of the calculated GFR & GFRAA in patients over 70 years has not been determined. Clinical correlation is essential. Serum or plasma thyroid stim ulating hormone (TSH) measurement (units/volume)Ordered By: Matt Hopkins on 04-20-2023 TSH Qn 1.56 uIU/mL 0.358-3.74 [facility] Serum or plasma urea nitroge n measurement (mass/volume)Ordered By: Matt Hopkins on 04-20-2023 Urea nitrogen [Mass/Vol] 14 mg/dL 7-18 [facility] Thin prep Papanicolaou smear with manual screeningOrdered By: Matt Hopkins on 04-20-2023 Thin prep Papanicolaou smear with manual screening 3.6 g/dL 3.2-5.0 [facility] Thin prep Papanicolaou smear with manual screening 14 U/L 15-37 [facility] Thin prep Papanicolaou smear with manual screening 5 5-15 [facility] CNPNon 04-13-2023 ESTER Telephone (AGGENS3) MARIA LUZ SANTANA ([id number]) 1950 M Date Time Provider Department 04/13/23 ALPA PEARSON During your visit today, we recorded the following information about you: Alpa Pearson APRN.CNP 04/13/2023 12:03 PM Signed LMV for patient to call clinic with SOC updates. Alpa Pearson APRN.PRESS CLEANER Allergies As of Date: 04/13/2023 Noted Allergy Reaction CORTICOSTEROIDS (GLUCOCORTICOIDS) 07/08/2018 14 - Other: See Comments 12 - Shortness of Breath EGG DERIVED 07/08/2018 14 - Other: See Comments LEVAQUIN (LEVOFLOXACIN) 03/13/2023 2 - Rash MILK CONTAINING PRODUCTS (DAIRY) 07/08/2018 6 - Diarrhea OMEPRAZOLE 03/13/2023 9 - Itching PENICILLINS 10/01/2013 7 - Swelling Comments: swelling of tongue PROTONIX (PANTOPRAZOLE) 03/13/2023 9 - Itching STEROIDS (BETAMETHASONE DIPROPION*05/10/2015 7 - Swelling Comments: Tongue swelling ULORIC (FEBUXOSTAT) 03/13/2023 2 - Rash Date Reviewed: 04/02/2023 Reviewed by: Ruth Sullivan MD - Fully Assessed Reason for Visit: Patient Update [1234] Prescriptions as of 04/13/2023 - ergocalciferol 50,000 unit capsule (VITAMIN D2, DRISDOL) Take 1 capsule by mouth one time a week. - DILT-XR 120 mg 24 hr capsule - famotidine (PEPCID) 40 mg tablet Take 40 mg by mouth once daily. - allopurinol (ZYLOPRIM) 100 mg tablet Take 200 mg by mouth once daily. - loratadine (CLARITIN) 10 mg tablet Take 10 mg by mouth once daily. - LISINOPRIL ORAL Take by mouth. - hydrochlorothiazide 12.5 mg tablet Take 12.5 mg by mouth once daily. Two tablets Problem List As Of Date: 04/13/2023 (None) Encounter Status:Closed by ALPA PEARSON on 04/13/23 [facility] CNOVon 04-02-2023 CNOV Office Visit (AGGENS 4) MARIA LUZ SANTANA ([id number]) 1950 M Date Time Provider Department 04/02/23 8:30 AM RUTH SULLIVAN AGGENS4 During your visit today, we recorded the following information about you: Pulse Blood pressure Weight Height 67/minute 110/68 90.3 kg 1.778 m Ruth Sullivan MD 04/02/2023 9:22 AM Signed SURGICAL SERVICES HISTORY AND PHYSICAL EXAMINATION SERVICE [...] to chronic sinus drainage. 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 He [...] for back pain) done last week at [facility] patient will get this uploaded - Manometry (03/13/23): Ineffective esophageal motility; DCI less than 500 - Esophagram (03/10/23): Persistent area of very mild stricture within the distal esophagus which could be more optimally evaluated by direct visualization. Gastroesophageal reflux into the midesophagus - EGD (12/22/22; Dr. Gill): LA Grade B reflux esophagitis, medium sized hiatal hernia. - Stafford (12/22/22): DeMeester score of 73.1; SAP 100 [...] a day. He does follow with a die machine operator for SVT. He has not discussed this with his die machine operator due to the fact that the patient [...] mg tablet Take 10 mg by mouth (more content not included)... [facility] 04-02-2023 [facility] Telephone (AGGENS4) MARIA LUZ SANTANA ([id number]) 1950 Date Time Provider Department 04/02/23 RUTH SULLIVAN AGGENS4 During your visit today, we recorded the following information about you: Luis Underwood RN 04/02/2023 10:20 AM Signed Cardiology clearance letter sent/faxed to Dr. Dwayne Klein MD. AILIN Jean Baptiste Shannon M, RN 04/03/2023 10:25 AM Signed We have received cardiology clearance and it has been scanned in for review. Luis Underwood RN Allergies As of Date: 04/02/2023 Noted Allergy Reaction CORTICOSTEROIDS (GLUCOCORTICOIDS) 07/08/2018 14 - Other: See Comments 12 - Shortness of Breath EGG DERIVED 07/08/2018 14 - Other: See Comments LEVAQUIN (LEVOFLOXACIN) 03/13/2023 2 - Rash MILK CONTAINING PRODUCTS (DAIRY) 07/08/2018 6 - Diarrhea OMEPRAZOLE 03/13/2023 9 - Itching PENICILLINS 10/01/2013 7 - Swelling Comments: swelling of tongue PROTONIX (PANTOPRAZOLE) 03/13/2023 9 - Itching STEROIDS (BETAMETHASONE DIPROPION*05/10/2015 7 - Swelling Comments: Tongue swelling ULORIC (FEBUXOSTAT) 03/13/2023 2 - Rash Date Reviewed: 04/02/2023 Reviewed by: Ruth Sullivan MD - Fully Assessed Reason for Visit: Medical Clearance [1982] Prescriptions as of 04/03/2023 - ergocalciferol 50,000 unit capsule (VITAMIN D2, DRISDOL) Take 1 capsule by mouth one time a week. - DILT-XR 120 mg 24 hr capsule - famotidine (PEPCID) 40 mg tablet Take 40 mg by mouth once daily. - allopurinol (ZYLOPRIM) 100 mg tablet Take 200 mg by mouth once daily. - loratadine (CLARITIN) 10 mg tablet Take 10 mg by mouth once daily. - LISINOPRIL ORAL Take by mouth. - hydrochlorothiazide 12.5 mg tablet Take 12.5 mg by mouth once daily. Two tablets Problem List As Of Date: 04/02/2023 (None) Letter Text Encounter Status:Closed by LUIS UNDERWOOD on 04/02/23 [facility] Absolute lymphocyte countOrd ered By: Ana Casiano on 03-31-2023 Lymphocytes Auto (Unsp spec) [#/Vol] 1.45 10*3/uL 0.83-4.51 [facility] Automated lymphocyte count a s percentage of total leukocytesOrdered By: Ana Casiano on 03-31-2023 Lymphocytes/100 WBC Auto (Unsp spec) 24.8 % 19-41 [facility] Basophil percentageOrdered B y: Ana Casiano on 03-31-2023 Basophil percentage 0-5 SEEN /hpf 0-5 [facility] Basophil percentage 0.58 ng/mL 0.0-4.0 [facility] Comment on above: This test was perfor med using the TPSA assay method for the[facility] chemistry system. Values obtained with differentassay methods cannot be used interchangably.When changing PSA assays in the course of monitoring apatient, additional sequential testing should be carriedout to confirm baseline values. Basophils/100 WBC (Bld) 0.7 % 0-1 [facility] Bilirubin [Mass/Vol] 1.10 mg/dL 0.20-1.00 [facility] Comment on above: For patients on eltr ombopag therapy, use of Dimension [place] TBIL is not recommended. Chloride [Moles/Vol] 104 mmol/L 98-107 [facility] Eosinophils/100 WBC (Bld) 1.9 % 0-5 [facility] Glucose [Mass/Vol] 102 mg/dL 74-106 [facility] Comment on above: Fasting Glucose resu lt from 100 to 125 mg/dL suggests IMPAIRED HOMEOSTASIS per A.D.A. criteria. Hemoglobin (Bld) [Mass/Vol] 12.6 g/dL 13.0-16.5 [facility] Monocytes/100 WBC (Bld) 9.4 % 0-10 [facility] Neutrophils (Bld) [#/Vol] 3.7 10*3/uL 2.0-7.7 [facility] Neutrophils/100 WBC (Bld) 62.9 % 47-70 [facility] Potassium [Moles/Vol] 3.7 mmol/L 3.5-5.1 [facility] Protein [Mass/Vol] 6.9 g/dL 6.4-8.2 [facility] Sodium [Moles/Vol] 138 mmol/L 136-145 [facility] WBC (Bld) [#/Vol] 5.8 10*3/uL 4.4-11.0 [facility] Bilirubin Test strip Ql (U)O rdered By: Ana Casiano on 03-31-2023 Bilirubin Ql (U) Negative Negative [facility] Culture, urineOrdered By: Jaswant Casiano on 03-31-2023 Bacteria identified Cx Nom (U) Positive [facility] Bacteria identified Cx Nom (U) Positive [facility] Determination of erythrocyte mean corpuscular volume (MCV)Ordered By: Ana Casiano on 03-31-2023 MCV (RBC) [Entitic vol] 96.0 fL 80-94 [facility] Erythrocyte distribution wid th ratioOrdered By: Ana Casiano on 03-31-2023 Erythrocyte distribution width (RBC) [Ratio] 14.5 % 11.6-14.6 [facility] Erythrocyte distribution wid th standard deviationOrdered By: Ana Casiano on 03-31-2023 Erythrocyte distribution width (RBC) [Entitic vol] 51.1 fL 35.1-43.9 [facility] Hematocrit Auto (Bld) [Volum e fraction]Ordered By: Ana Casiano on 03-31-2023 Hematocrit (Bld) [Volume fraction] 38.0 % 40-54 [facility] Immature granulocytes/100 WB C Auto (Bld)Ordered By: Ana Casiano on 03-31-2023 Immature granulocytes/100 WBC (Bld) 0.300 % 0.0-0.9 [facility] Comment on above: IG% - Immature Granu locytes (promyelocytes, myelocytes and metamyelocytes) > 1% indicates that a LEFT SHIFT is Present. Ketones Test strip Ql (U)Ord ered By: Ana Casiano on 03-31-2023 Ketones Ql (U) Negative Negative [facility] Laboratory - Chemistry and C hemistry - challengeOrdered By: Ana Casiano on 03-31-2023 Albumin/Globulin [Mass ratio] 1.2 {ratio} 0.9-2.4 [facility] ALP [Catalytic activity/Vol] 63 U/L 45-117 [facility] ALT [Catalytic activity/Vol] 31 U/L 16-61 [facility] CO2 [Moles/Vol] 28.0 mmol/L 21.0-32.0 [facility] Globulin (S) [Mass/Vol] 3.1 g/dL 2.2-4.2 [facility] Urea nitrogen/Creatinine [Mass ratio] 14.0 mg/mg 10-20 [facility] Laboratory - Hematology and Cell countsOrdered By: Ana Casiano on 03-31-2023 MCH (RBC) [Entitic mass] 31.8 pg 27.0-32.0 [facility] MCHC (RBC) [Mass/Vol] 33.2 g/dL 32-36 [facility] Nucleated RBC/100 WBC (Bld) [Ratio] 0 % 0-5 [facility] Platelet mean volume (Bld) [Entitic vol] 9.0 fL 6.2-12.0 [facility] Platelets (Bld) [#/Vol] 183 10*3/uL 150-450 [facility] Mucus LM Ql (Urine sed)Order ed By: Ana Casiano on 03-31-2023 Mucus Ql (Urine sed) 0 SEEN /hpf [facility] Nitrite Test strip Ql (U)Ord ered By: Ana Casiano on 03-31-2023 Nitrite Ql (U) Negative Negative [facility] No Panel InformationOrdered By: Ana Casiano on 03-31-2023 C-Reactive Protein Extended Range < 2.90 mg/L 0.0-3.0 [facility] Comment on above: C-Reactive Protein ( CRP) provides useful information for thediagnosis, therapy and monitoring of inflammatory processesand associated diseases. For the evaluation of Relative Riskfor Cardiovascular Disease, a High Sensitivity CRP (HSCRP)should be ordered. Estimated GFR (MDRD) Amer 66 mL/min >60 [facility] Comment on above: GFR Calc Estimated GFR (MDRD) Non-Af Amer 55 mL/min >60 [facility] Comment on above: Non- GFR Calc Urine RBC 0 SEEN /hpf 0-5 [facility] Protein Test strip Ql (U)Ord ered By: Ana Casiano on 03-31-2023 Protein Ql (U) Negative Negative [facility] RBC Auto (Bld) [#/Vol]Ordere d By: Ana Casiano on 03-31-2023 RBC (Bld) [#/Vol] 3.96 10*6/uL 4.6-6.2 [facility] Serum or plasma calcium [place] urement (mass/volume)Ordered By: Ana Casiano on 03-31-2023 Calcium [Mass/Vol] 9.2 mg/dL 8.5-10.1 [facility] Serum or plasma creatinine m easurement (mass/volume)Ordered By: Ana Casiano on 03-31-2023 Creatinine [Mass/Vol] 1.36 mg/dL 0.70-1.30 [facility] Comment on above: The validity of the calculated GFR & GFRAA in patients over 70 years has not been determined. Clinical correlation is essential. Serum or plasma urea nitroge n measurement (mass/volume)Ordered By: Ana Casiano on 03-31-2023 Urea nitrogen [Mass/Vol] 19 mg/dL 7-18 [facility] Squamous epithelial cells de tection in urine sediment by light microscopyOrdered By: Ana Casiano on 03-31-2023 Epithelial cells.squamous LM Ql (Urine sed) 0 SEEN /hpf 0-5 [facility] Thin prep Papanicolaou smear with manual screeningOrdered By: Ana Casiano on 03-31-2023 Thin prep Papanicolaou smear with manual screening 3.8 g/dL 3.2-5.0 [facility] Thin prep Papanicolaou smear with manual screening 22 U/L 15-37 [facility] Thin prep Papanicolaou smear with manual screening 6 5-15 [facility] Urine blood detectionOrdered By: Ana Casiano on 03-31-2023 RBC Ql (U) Negative Negative [facility] Urine clarityOrdered By: Danisha Casiano on 03-31-2023 Clarity (U) Clear Clear [facility] Urine color determinationOrd ered By: Ana Casiano on 03-31-2023 Color (U) Yellow Yellow [facility] Urine glucose detectionOrder ed By: Ana Casiano on 03-31-2023 Glucose Ql (U) Normal mg/dl Normal [facility] Urine leukocyte esterase det ection by dipstickOrdered By: Ana Casiano on 03-31-2023 Leukocyte esterase Test strip Ql (U) 100 /ul Negative [facility] Urine pHOrdered By: Ana royal on 03-31-2023 pH (U) 7.0 [pH] 5.0 - 8.0 [facility] Urine sediment bacteria coun t by microscopy (number/high power field)Ordered By: Ana Casiano on 03-31-2023 Bacteria LM.HPF (Urine sed) [#/Area] 0 /[HPF] None Seen [facility] Urine specific gravity measu rementOrdered By: Ana Casiano on 03-31-2023 Specific gravity (U) [Rel density] 1.010 1.002-1.030 [facility] Urine urobilinogen measureme ntOrdered By: Ana Casiano on 03-31-2023 Urobilinogen Ql (U) Normal mg/dl Normal [facility] CNOVon 03-30-2023 CNOV Office Visit (AGGENS 3) VICKIMARIA LUZ PARKS ([id number]) 1950 M Date Time Provider Department 03/30/23 11:00 AM ALPA PEARSON3 During your visit today, we recorded the following information about you: Pulse Respiration Blood pressure Weight 65/minute 18/minute 113/75 88.9 kg Height 1.778 m Apla Pearson APRN.PRESS CLEANER 03/30/2023 11:10 AM Signed Incentive Spirometer: -Start with breathing exercise today, [...] lean beef, salmon, tofu, peanut butter, eggs, peruvian yogurt, cottage cheese, black beans, lentils -Make [...] member be designated as your power of family law attorney in the event you cannot speak for yourself. This person should know what you would prefer as your medical choices if you were not compromised. This person, family or friend, should know what you prefer for your medical care and decisions if you are unable to make those decisions for yourself. Notify your surgeon?s office to update your records with the designated Durable Power of Csm Consultant. -A [employer] web site for information: www.[employer]. org Sensory Aids: -If you have any sensory [...] bring that with you day of surgery. Alpa Pearson APRN.CNP 03/30/2023 1:18 PM Signed Alpa Pearson APRN.CNP [facility] [address] [facility], [address] [place] [id number] Patient: Maria Luz Santana Date of : [...] he has noticed sometimes he has to "catch his breath." Reports he was referred to Cardiology for clearance, was seen by Dr. Klein in [place] last week and reports there were no concerns from Cardiology. Reports he has been having sinus drainage, working with PCP using a few different nasal sprays. Reports a good (more content not included)... Normal [facility] Basophil percentageOrdered B y: Dwayne Klein on 03-16-2023 Bilirubin [Mass/Vol] 0.70 mg/dL 0.20-1.00 [facility] Comment on above: For patients on eltr ombopag therapy, use of Dimension [place] TBIL is not recommended. Cholesterol [Mass/Vol] 235 mg/dL <200 [facility] Comment on above: <200 mg/dL Desirable 200-240 mg/dL Borderline >240 mg/dL High Risk Protein [Mass/Vol] 6.7 g/dL 6.4-8.2 [facility] Triglyceride [Mass/Vol] 253 mg/dL <199 [facility] Comment on above: The drugs N-Acetylcy steine and Metamizole may falsely depress this assay.Serum Triglycerides Reference Interval Normal <150 mg/dL Borderline high 150 - 199 mg/dL High 200 - 499 mg/dL Very High > or = 500 mg/dL Basophil percentageOrdered B y: Yamilet Benavides on 03-16-2023 Chloride [Moles/Vol] 105 mmol/L 98-107 [facility] Glucose [Mass/Vol] 101 mg/dL 74-106 [facility] Comment on above: Fasting Glucose resu lt from 100 to 125 mg/dL suggests IMPAIRED HOMEOSTASIS per A.D.A. criteria. Hemoglobin (Bld) [Mass/Vol] 12.1 g/dL 13.0-16.5 [facility] Potassium [Moles/Vol] 3.6 mmol/L 3.5-5.1 [facility] Sodium [Moles/Vol] 140 mmol/L 136-145 [facility] WBC (Bld) [#/Vol] 5.8 10*3/uL 4.4-11.0 [facility] Determination of erythrocyte mean corpuscular volume (MCV)Ordered By: Yamilet Benavides on 03-16-2023 MCV (RBC) [Entitic vol] 95.9 fL 80-94 [facility] Direct bilirubinOrdered By: Dwayne Klein on 03-16-2023 Bilirubin.direct [Mass/Vol] 0.16 mg/dL 0.00-0.30 [facility] Erythrocyte distribution wid th ratioOrdered By: Yamilet Benavides on 03-16-2023 Erythrocyte distribution width (RBC) [Ratio] 14.6 % 11.6-14.6 [facility] Erythrocyte distribution wid th standard deviationOrdered By: Yamilet Benavides on 03-16-2023 Erythrocyte distribution width (RBC) [Entitic vol] 51.2 fL 35.1-43.9 [facility] Hematocrit Auto (Bld) [Volum e fraction]Ordered By: Yamilet Benavides on 03-16-2023 Hematocrit (Bld) [Volume fraction] 37.1 % 40-54 [facility] Laboratory - Chemistry and C hemistry - challengeOrdered By: Dwayne Klein on 03-16-2023 ALP [Catalytic activity/Vol] 56 U/L 45-117 [facility] ALT [Catalytic activity/Vol] 25 U/L 16-61 [facility] Cholesterol in HDL [Mass/Vol] 43 mg/dL >40 [facility] Comment on above: The drugs N-Acetylcy steine and Metamizole may falsely depress this assay. Reference Range HDL <40 mg/dL Low HDL Cholesterol HDL >or= 60 mg/dL High HDL Cholesterol Cholesterol in LDL [Mass/Vol] 141 mg/dL 0-130 [facility] Globulin (S) [Mass/Vol] 3.1 g/dL 2.2-4.2 [facility] Laboratory - Chemistry and C hemistry - challengeOrdered By: Yamilet Benavides on 03-16-2023 CO2 [Moles/Vol] 32.0 mmol/L 21.0-32.0 [facility] Natriuretic peptide B (Bld) [Mass/Vol] 9.7 pg/mL 0-100 [facility] Urea nitrogen/Creatinine [Mass ratio] 11.9 mg/mg 10-20 [facility] Laboratory - Hematology and Cell countsOrdered By: Yamilet Benavides on 03-16-2023 MCH (RBC) [Entitic mass] 31.3 pg 27.0-32.0 [facility] MCHC (RBC) [Mass/Vol] 32.6 g/dL 32-36 [facility] Platelets (Bld) [#/Vol] 207 10*3/uL 150-450 [facility] No Panel InformationOrdered By: Yamilet Benavides on 03-16-2023 Estimated GFR (MDRD) Amer 72 mL/min >60 [facility] Comment on above: GFR Calc Estimated GFR (MDRD) Non-Af Amer 60 mL/min >60 [facility] Comment on above: Non- GFR Calc No Panel InformationOrdered By: Dwayne Klein on 03-16-2023 VLDL Cholesterol 51 mg/dL 5-40 [facility] Platelet mean volume Brijesh-Ec ker (Bld) [Entitic vol]Ordered By: Yamilet Benavides on 03-16-2023 Platelet mean volume (Bld) [Entitic vol] 9.2 fL 6.2-12.0 [facility] RBC Auto (Bld) [#/Vol]Ordere d By: Yamilet Benavides on 03-16-2023 RBC (Bld) [#/Vol] 3.87 10*6/uL 4.6-6.2 [facility] Serum or plasma calcium [place] urement (mass/volume)Ordered By: Yamilet Benavides on 03-16-2023 Calcium [Mass/Vol] 9.0 mg/dL 8.5-10.1 [facility] Serum or plasma creatinine m easurement (mass/volume)Ordered By: Yamilet Benavides on 03-16-2023 Creatinine [Mass/Vol] 1.26 mg/dL 0.70-1.30 [facility] Comment on above: The validity of the calculated GFR & GFRAA in patients over 70 years has not been determined. Clinical correlation is essential. Serum or plasma urea nitroge n measurement (mass/volume)Ordered By: Yamilet Benavides on 03-16-2023 Urea nitrogen [Mass/Vol] 15 mg/dL 7-18 [facility] Thin prep Papanicolaou smear with manual screeningOrdered By: Dwayne Klein on 03-16-2023 Thin prep Papanicolaou smear with manual screening 3.6 g/dL 3.2-5.0 [facility] Thin prep Papanicolaou smear with manual screening 19 U/L 15-37 [facility] Thin prep Papanicolaou smear with manual screeningOrdered By: Yamilet Benavides on 03-16-2023 Thin prep Papanicolaou smear with manual screening 3 5-15 [facility] NURSING PROGon 03-13-2023 NURSING PROG HNO ID: [id number] Author: JOSE HILTON, RN Service: Nursing Author Type: Registered Nurse Type: Nursing Progress Note Filed: 03/13/2023 08:53 Note Text: The patient was brought into the procedure room and a time out was done. Patient denies taking any muscle relaxers or blood thinners. Patient denies any surgeries or injuries to nose. After confirmation of potential allergies, a topical analgesic was used to numb the right nares followed by the trans-nasal insertion of a High Resolution Manometry catheter. Pressure bands of the UES and LES were observed on the color contour. The patient was instructed to take a deep breath to verify placement of catheter, diaphragmatic pinch noted on inspiration. The patient was assisted to supine position and the catheter stabilized. The patient was encouraged to relax while acclimating to the catheter for approximately 5 minutes. A 30 second baseline pressure was obtained to identify the UES and LES followed by a series of ten wet swallows, using 5mL of room temperature normal saline to assess esophageal motility. At the conclusion of the procedure the catheter was removed. The patient tolerated the procedure well. Patient was informed of possible congestion and minimal nose bleeding following procedure.No heme noted when catheter removed. Normal [facility] XR ESOPHAGRAMon 03-10-2023 XR ESOPHAGRAM * * *Final Report* * * DATE OF EXAM: Mar 10 2023 12:54PM [id number] - XR ESOPHAGRAM / PROCEDURE REASON: multiple diagnoses * * * * Physician Interpretation * * * * EXAM TITLE: XR ESOPHAGRAM DATE: 03/10/2023 COMPARISON: None. CLINICAL INDICATION/HISTORY: Gastroesophageal reflux TECHNIQUE: A double contrast esophagram was performed by a cardiac cath lab radiology technologist. 110 images are submitted for interpretation. 44 seconds of fluoroscopy time was utilized. FINDINGS: There is a persistent area of very mild stricture within the distal esophagus. No other region of stricture is identified. There is no ulcer or filling defect. No significant extrinsic mass effect. No sizable hiatal hernia. There was gastroesophageal reflux into the midesophagus. A 13 mm barium tablet passed easily into the stomach. IMPRESSION: Persistent area of very mild stricture within the distal esophagus which could be more optimally evaluated by direct visualization. Gastroesophageal reflux into the midesophagus. Patient Intake Representative: PSCB Transcribe Date/Time: Mar 10 2023 1:06P Dictated by : ALEXIA HOUSE MD This examination was interpreted and the report reviewed and electronically signed by: ALEXIA HOUSE MD on Mar 10 2023 1:08PM EST [id number] Normal [facility] CNOVon 03-06-2023 CNOV Office Visit (AGGENS 4) MARIA LUZ SANTANA ([id number]) 1950 M Date Time Provider Department 03/06/23 10:00 AM RUTH SULLIVAN AGGENS4 During your visit today, we recorded the following information about you: Pulse Blood pressure Weight Height 68/minute 116/67 89.4 kg 1.778 m Ruth Sullivan MD 03/06/2023 11:05 AM Signed SURGICAL SERVICES HISTORY AND PHYSICAL EXAMINATION SERVICE [...] a day. He does follow with a die machine operator for SVT. He has not discussed this with his die machine operator due to the fact that the patient thinks these symptoms are related to acid reflux. Workup: - EGD (12/22/22; Dr. Gill): [place] Grade B reflux esophagitis, medium sized hiatal hernia. - Stafford (12/22/22): DeMeester score of 73.1; SAP 100 [...] swelling and PND. Gastrointestinal: Positive for heartburn. (more content not included)... Normal [facility] Amy 03-06-2023 [facility] Telephone (AGGENS4) MARIA LUZ SANTANA ([id number]) 1950 M Date Time Provider Department 03/06/23 RUTH SULLIVAN4 During your visit today, we recorded the following information about you: Luz Gilliam MA 03/06/2023 1:23 PM Signed Manometry scheduled for 03/13/2023 at 8:00 am. Prep/instructions given to patient at checkout. Luz Gilliam MA Allergies As of Date: 03/06/2023 Noted Allergy Reaction EGG DERIVED 07/08/2018 14 - Other: See Comments MILK CONTAINING PRODUCTS (DAIRY) 07/08/2018 6 - Diarrhea PENICILLINS 10/01/2013 7 - Swelling Comments: swelling of tongue STEROIDS (BETAMETHASONE DIPROPION*05/10/2015 7 - Swelling Comments: Tongue swelling Date Reviewed: 03/06/2023 Reviewed by: Ruth Sullivan MD - Fully Assessed Reason for Visit: Appointment [[id number]] Cmt: Manometry Prescriptions as of 03/06/2023 - DILT-XR 120 mg 24 hr capsule - famotidine (PEPCID) 40 mg tablet Take 40 mg by mouth once daily. - allopurinol (ZYLOPRIM) 100 mg tablet Take 200 mg by mouth once daily. - loratadine (CLARITIN) 10 mg tablet Take 10 mg by mouth once daily. - LISINOPRIL ORAL Take by mouth. - hydrochlorothiazide 12.5 mg tablet Take 12.5 mg by mouth once daily. Two tablets Problem List As Of Date: 03/06/2023 (None) Encounter Status:Closed by LUZ GILLIAM on 03/06/23 [facility] Amy 03-02-2023 [facility] Telephone ([id number]) MARIA LUZ SANTANA ([id number]) 1950 M Date Time Provider Department 03/02/23 RUTH SULLIVAN4 During your visit today, we recorded the following information about you: Eileen Mathis 03/02/2023 10:20 AM Signed Left voicemail for patient regarding voicemail patient left about his upcoming appointment time. Correct appointment information left on patient voicemail. iEleen Mathis March 02, 2023 10:20 AM Allergies As of Date: 03/02/2023 Noted Allergy Reaction PENICILLINS 10/01/2013 7 - Swelling Comments: swelling of tongue STEROIDS (BETAMETHASONE DIPROPION*05/10/2015 7 - Swelling Comments: Tongue swelling Date Reviewed: 12/01/2019 Reviewed by: Brook Tellez (Rn), RN - Fully Assessed Prescriptions as of 03/02/2023 - Omeprazole 40 mg capsule Take 1 capsule by mouth twice daily before meals. - famotidine (PEPCID) 40 mg tablet Take 40 mg by mouth once daily. - allopurinol (ZYLOPRIM) 100 mg tablet Take 200 mg by mouth once daily. - loratadine (CLARITIN) 10 mg tablet Take 10 mg by mouth once daily. - cholecalciferol (VITAMIN D-3) 2,000 unit tablet Take 4,000 Units by mouth once daily. - chlorpheniramine (CHLORTABS) 4 mg tablet Take 4 mg by mouth every evening. - ACETYLCYSTEINE (J-IKCZKT-X-CYSTEINE MISC) - LISINOPRIL ORAL Take by mouth. - hydrochlorothiazide 12.5 mg tablet Take 12.5 mg by mouth once daily. Two tablets Problem List As Of Date: 03/02/2023 (None) Encounter Status:Closed by EILEEN MATHIS on 03/02/23 Normal [facility] Absolute lymphocyte countOrd ered By: ED PROVIDER on 02-13-2023 Lymphocytes Auto (Unsp spec) [#/Vol] 0.90 10*3/uL 0.83-4.51 [facility] Basophil percentageOrdered B y: Kenton Dillard on 02-13-2023 Lactate [Moles/Vol] 1.2 mmol/L 0.4-2.0 [facility] Basophil percentageOrdered B y: ED PROVIDER on 02-13-2023 Basophils/100 WBC (Bld) 0.4 % 0-1 [facility] Chloride [Moles/Vol] 103 mmol/L 98-107 [facility] Eosin[facility]/100 WBC (Bld) 1.3 % 0-5 [facility] Glucose [Mass/Vol] 106 mg/dL 74-[address] [facility] Comment on above: Fasting Glucose resu lt from 100 to 125 mg/dL suggests IMPAIRED HOMEOSTASIS per A.D.A. criteria. Neutrophils (Bld) [#/Vol] 4.0 10*3/uL 2.0-7.7 [facility] Neutrophils/100 WBC (Bld) 72.6 % 47-70 [facility] Potassium [Moles/Vol] 3.8 mmol/L 3.5-5.1 [facility] Sodium [Moles/Vol] 137 mmol/L 136-145 [facility] WBC (Bld) [#/Vol] 5.4 10*3/uL 4.4-11.0 [facility] Blood erythrocytes count (nu mber/volume)Ordered By: ED PROVIDER on 02-13-2023 RBC (Bld) [#/Vol] 4.01 10*6/uL 4.6-6.2 [facility] Blood hemoglobin measurement (mass/volume)Ordered By: ED PROVIDER on 02-13-2023 Hemoglobin (Bld) [Mass/Vol] 12.4 g/dL 13.0-16.5 [facility] Blood lymphocytes/100 leukoc ytesOrdered By: ED PROVIDER on 02-13-2023 Lymphocytes/100 WBC (Bld) 16.5 % 19-41 [facility] Blood monocytes/100 leukocyt esOrdered By: ED PROVIDER on 02-13-2023 Monocytes/100 WBC (Bld) 8.6 % 0-10 [facility] Blood platelet mean volumeOr dered By: ED PROVIDER on 02-13-2023 Platelet mean volume (Bld) [Entitic vol] 9.5 fL 6.2-12.0 [facility] Determination of erythrocyte mean corpuscular volume (MCV)Ordered By: ED PROVIDER on 02-13-2023 MCV (RBC) [Entitic vol] 92.0 fL 80-94 [facility] Hematocrit Auto (Bld) [Volum e fraction]Ordered By: ED PROVIDER on 02-13-2023 Hematocrit (Bld) [Volume fraction] 36.9 % 40-54 [facility] Laboratory - Chemistry and C hemistry - challengeOrdered By: ED PROVIDER on 02-13-2023 CO2 [Moles/Vol] 28.0 mmol/L 21.0-32.0 [facility] Urea nitrogen/Creatinine [Mass ratio] 13.6 mg/mg 10-20 [facility] Laboratory - Hematology and Cell countsOrdered By: ED PROVIDER on 02-13-2023 Erythrocyte distribution width (RBC) [Entitic vol] 46.1 fL 35.1-43.9 [facility] Erythrocyte distribution width (RBC) [Ratio] 13.5 % 11.6-14.6 [facility] Immature granulocytes/100 WBC (Bld) 0.600 % 0.0-0.9 [facility] Comment on above: IG% - Immature Granu locytes (promyelocytes, myelocytes and metamyelocytes) > 1% indicates that a LEFT SHIFT is Present. MCH (RBC) [Entitic mass] 30.9 pg 27.0-32.0 [facility] Nucleated RBC/100 WBC (Bld) [Ratio] 0 % 0-5 [facility] Laboratory - Microbiology an d Antimicrobial susceptibilityOrdered By: Kenton Dillard on 02-13-2023 Bacteria identified Cx Nom (Bld) No growth in 5 days. [facility] Bacteria identified Cx Nom (Bld) No growth in 5 days. [facility] MCHC Auto (RBC) [Mass/Vol]Or dered By: ED PROVIDER on 02-13-2023 MCHC (RBC) [Mass/Vol] 33.6 g/dL 32-36 [facility] No Panel InformationOrdered By: ED PROVIDER on 02-13-2023 Estimated Creatinine Clearance Calc 58.43 ml/min [facility] Estimated GFR (MDRD) Amer 78 mL/min >60 [facility] Comment on above: GFR Calc Estimated GFR (MDRD) Non-Af Amer 64 mL/min >60 [facility] Comment on above: Non- GFR Calc Platelets bldOrdered By: ED PROVIDER on 02-13-2023 Platelets (Bld) [#/Vol] 250 10*3/uL 150-450 [facility] Serum or plasma calcium [place] urement (mass/volume)Ordered By: ED PROVIDER on 02-13-2023 Calcium [Mass/Vol] 9.2 mg/dL 8.5-10.1 [facility] Serum or plasma creatinine m easurement (mass/volume)Ordered By: ED PROVIDER on 02-13-2023 Creatinine [Mass/Vol] 1.18 mg/dL 0.70-1.30 [facility] Comment on above: The validity of the calculated GFR & GFRAA in patients over 70 years has not been determined. Clinical correlation is essential. Serum or plasma urea nitroge n measurement (mass/volume)Ordered By: ED PROVIDER on 02-13-2023 Urea nitrogen [Mass/Vol] 16 mg/dL 7-18 [facility] Thin prep Papanicolaou smear with manual screeningOrdered By: ED PROVIDER on 02-13-2023 Thin prep Papanicolaou smear with manual screening 6 5-15 [facility] Absolute lymphocyte countOrd ered By: Rell Valentine on 02-12-2023 Lymphocytes Auto (Unsp spec) [#/Vol] 0.70 10*3/uL 0.83-4.51 [facility] Basophil percentageOrdered B y: Rellmichela Valentine on 02-12-2023 Basophils/100 WBC (Bld) 0.4 % 0-1 [facility] Chloride [Moles/Vol] 102 mmol/L 98-107 [facility] Eosinophils/100 WBC (Bld) 0.9 % 0-5 [facility] Glucose [Mass/Vol] 106 mg/dL 74-106 [facility] Comment on above: Fasting Glucose resu lt from 100 to 125 mg/dL suggests IMPAIRED HOMEOSTASIS per A.D.A. criteria. Lactate [Moles/Vol] 1.5 mmol/L 0.4-2.0 [facility] Neutrophils (Bld) [#/Vol] 3.3 10*3/uL 2.0-7.7 [facility] Neutrophils/100 WBC (Bld) 73.0 % 47-70 [facility] Potassium [Moles/Vol] 3.7 mmol/L 3.5-5.1 [facility] Sodium [Moles/Vol] 139 mmol/L 136-145 [facility] WBC (Bld) [#/Vol] 4.5 10*3/uL 4.4-11.0 [facility] Blood erythrocytes count (nu mber/volume)Ordered By: Rellmichela Valentine on 02-12-2023 RBC (Bld) [#/Vol] 3.92 10*6/uL 4.6-6.2 [facility] Blood hemoglobin measurement (mass/volume)Ordered By: Rell Valentine on 02-12-2023 Hemoglobin (Bld) [Mass/Vol] 12.3 g/dL 13.0-16.5 [facility] Blood lymphocytes/100 leukoc ytesOrdered By: Rell Valentine on 02-12-2023 Lymphocytes/100 WBC (Bld) 15.5 % 19-41 [facility] Blood monocytes/100 leukocyt esOrdered By: Rell Valentine on 02-12-2023 Monocytes/100 WBC (Bld) 9.5 % 0-10 [facility] Blood platelet mean volumeOr dered By: Rellmichela Valentine on 02-12-2023 Platelet mean volume (Bld) [Entitic vol] 9.7 fL 6.2-12.0 [facility] Determination of erythrocyte mean corpuscular volume (MCV)Ordered By: Rellmichela Valentine on 02-12-2023 MCV (RBC) [Entitic vol] 92.6 fL 80-94 [facility] Hematocrit Auto (Bld) [Volum e fraction]Ordered By: Rellmichela Valentine on 02-12-2023 Hematocrit (Bld) [Volume fraction] 36.3 % 40-54 [facility] Laboratory - Chemistry and C hemistry - challengeOrdered By: Rellmichela Valentine on 02-12-2023 CO2 [Moles/Vol] 27.0 mmol/L 21.0-32.0 [facility] Urea nitrogen/Creatinine [Mass ratio] 12.3 mg/mg 10-20 [facility] Laboratory - Hematology and Cell countsOrdered By: Rellmichela Valentine on 02-12-2023 Erythrocyte distribution width (RBC) [Entitic vol] 46.2 fL 35.1-43.9 [facility] Erythrocyte distribution width (RBC) [Ratio] 13.6 % 11.6-14.6 [facility] Immature granulocytes/100 WBC (Bld) 0.700 % 0.0-0.9 [facility] Comment on above: IG% - Immature Granu locytes (promyelocytes, myelocytes and metamyelocytes) > 1% indicates that a LEFT SHIFT is Present. MCH (RBC) [Entitic mass] 31.4 pg 27.0-32.0 [facility] Nucleated RBC/100 WBC (Bld) [Ratio] 0 % 0-5 [facility] Laboratory - Microbiology an d Antimicrobial susceptibilityOrdered By: Rell Valentine on 02-12-2023 SARS-CoV-2 (COVID-19) RNA KASIE+probe Ql (Unsp spec) Influenzae A [facility] SARS-CoV-2 (COVID-19) RNA KASIE+probe Ql ([facility]sp spec) [facility] [Mass/Vol]Or dered By: Rell Valentine on 02-12-2023 MCHC (RBC) [Mass/Vol] 33.9 g/dL 32-36 [facility] No Panel InformationOrdered By: Rell Valentine on 02-12-2023 Estimated Creatinine Clearance Calc 53.03 ml/min [facility] Estimated GFR (MDRD) Amer 70 mL/min >60 [facility] Comment on above: GFR Calc Estimated GFR (MDRD) Non-Af Amer 58 mL/min >60 [facility] Comment on above: Non- GFR Calc Platelets bldOrdered By: Rell Valentine on 02-12-2023 Platelets (Bld) [#/Vol] 202 10*3/uL 150-450 [facility] Serum or plasma calcium [place] urement (mass/volume)Ordered By: Rell Valentine on 02-12-2023 Calcium [Mass/Vol] 9.4 mg/dL 8.5-10.1 [facility] Serum or plasma creatinine m easurement (mass/volume)Ordered By: Rell Valentine on 02-12-2023 Creatinine [Mass/Vol] 1.30 mg/dL 0.70-1.30 [facility] Comment on above: The validity of the calculated GFR & GFRAA in patients over 70 years has not been determined. Clinical correlation is essential. Serum or plasma urea nitroge n measurement (mass/volume)Ordered By: Rell Valentine on 02-12-2023 Urea nitrogen [Mass/Vol] 16 mg/dL 7-18 [facility] Thin prep Papanicolaou smear with manual screeningOrdered By: Rell Valentine on 02-12-2023 Thin prep Papanicolaou smear with manual screening 10 5-15 [facility] Influenza virus A and B and Respiratory syncytial virus RNA panel - Upper respiratoryOrdered By: Ata Edwards on 11-19-2022 FLUAV and FLUBV and RSV pnl KASIE+probe (Upper resp) [facility] FLUAV and FLUBV and RSV pnl KASIE+probe (Upper resp) [facility] No Panel Informationon 11-19 Influenza Types A,B Rapid (Clinic) Negative [facility] POC SARS CoV-2 Antigen Negative [facility] Basophil percentageOrdered B y: Dr. Wilhelm on 06-16-2022 Chloride [Moles/Vol] 105 mmol/L 98-107 [facility] Glucose [Mass/Vol] 127 mg/dL 74-106 [facility] Comment on above: Fasting Glucose resu lt greater than or equal to 126 mg/dL suggests DIABETES MELLITUS per A.D.A. criteria. Potassium [Moles/Vol] 3.5 mmol/L 3.5-5.1 [facility] Sodium [Moles/Vol] 139 mmol/L 136-145 [facility] WBC (Bld) [#/Vol] 5.1 10*3/uL 4.4-11.0 [facility] Blood erythrocytes count (nu mber/volume)Ordered By: Dr. Wilhelm on 06-16-2022 RBC (Bld) [#/Vol] 4.13 10*6/uL 4.6-6.2 [facility] Blood hemoglobin measurement (mass/volume)Ordered By: Dr. Wilhelm on 06-16-2022 Hemoglobin (Bld) [Mass/Vol] 13.2 g/dL 13.0-16.5 [facility] Blood platelet mean volumeOr dered By: Dr. Wilhelm on 06-16-2022 Platelet mean volume (Bld) [Entitic vol] 10.0 fL 6.2-12.0 [facility] Determination of erythrocyte mean corpuscular volume (MCV)Ordered By: Dr. Wilhelm on 06-16-2022 MCV (RBC) [Entitic vol] 94.9 fL 80-94 [facility] Hematocrit Auto (Bld) [Volum e fraction]Ordered By: Dr. Wilhelm on 06-16-2022 Hematocrit (Bld) [Volume fraction] 39.2 % 40-54 [facility] Laboratory - Chemistry and C hemistry - challengeOrdered By: Dr. Wilhelm on 06-16-2022 CO2 [Moles/Vol] 27.0 mmol/L 21.0-32.0 [facility] Urea nitrogen/Creatinine [Mass ratio] 15.8 mg/mg 10-20 [facility] Laboratory - Hematology and Cell countsOrdered By: Dr. Wilhelm on 06-16-2022 Erythrocyte distribution width (RBC) [Entitic vol] 46.6 fL 35.1-43.9 [facility] Erythrocyte distribution width (RBC) [Ratio] 13.4 % 11.6-14.6 [facility] MCH (RBC) [Entitic mass] 32.0 pg 27.0-32.0 [facility] MCHC Auto (RBC) [Mass/Vol]Or dered By: Dr. Wilhelm on 06-16-2022 MCHC (RBC) [Mass/Vol] 33.7 g/dL 32-36 [facility] No Panel InformationOrdered By: Dr. Wilhelm on 06-16-2022 Estimated GFR (MDRD) Amer 77 mL/min >60 [facility] Comment on above: GFR Calc Estimated GFR (MDRD) Non-Af Amer 63 mL/min >60 [facility] Comment on above: Non- GFR Calc Prostate Specific Antigen Screen 0.83 ng/mL 0.00-4.00 [facility] Comment on above: This test was perfor med using the TPSA assay method [facility] system. Values obtained with differentassay methods cannot be used interchangably.When changing PSA assays in the course of monitoring apatient, additional sequential testing should be carriedout to confirm baseline values. Platelets bldOrdered By: Dr. Wilhelm on 06-16-2022 Platelets (Bld) [#/Vol] 171 10*3/uL 150-450 [facility] Serum or plasma calcium remington urement (mass/volume)Ordered By: Dr. Wilhelm on 06-16-2022 Calcium [Mass/Vol] 9.0 mg/dL 8.5-10.1 [facility] Serum or plasma creatinine m easurement (mass/volume)Ordered By: Dr. Wilhelm on 06-16-2022 Creatinine [Mass/Vol] 1.20 mg/dL 0.70-1.30 [facility] Comment on above: The validity of the calculated GFR & GFRAA in patients over 70 years has not been determined. Clinical correlation is essential. Serum or plasma urea nitroge n measurement (mass/volume)Ordered By: Dr. Wilhelm on 06-16-2022 Urea nitrogen [Mass/Vol] 19 mg/dL 7-18 [facility] Thin prep Papanicolaou smear with manual screeningOrdered By: Dr. Wilhelm on 06-16-2022 Thin prep Papanicolaou smear with manual screening 7 5-15 [facility] Basophil percentageOrdered B y: Dr. Klein on 05-07-2022 Bilirubin [Mass/Vol] 0.90 mg/dL 0.20-1.00 [facility] Comment on above: For patients on eltr ombopag therapy, use of Dimension [place] TBIL is not recommended. Cholesterol [Mass/Vol] 230 mg/dL <200 [facility] Comment on above: <200 mg/dL Desirable 200-240 mg/dL Borderline >240 mg/dL High Risk Protein [Mass/Vol] 6.3 g/dL 6.4-8.2 [facility] Triglyceride [Mass/Vol] 147 mg/dL <199 [facility] Comment on above: The drugs N-Acetylcy steine and Metamizole may falsely depress this assay.Serum Triglycerides Reference Interval Normal <150 mg/dL Borderline high 150 - 199 mg/dL High 200 - 499 mg/dL Very High > or = 500 mg/dL Direct bilirubinOrdered By: Dr. Klein on 05-07-2022 Bilirubin.direct [Mass/Vol] 0.21 mg/dL 0.00-0.30 [facility] Laboratory - Chemistry and C hemistry - challengeOrdered By: Dr. Klein on 05-07-2022 ALP [Catalytic activity/Vol] 55 U/L 45-117 [facility] ALT [Catalytic activity/Vol] 28 U/L 16-61 [facility] Globulin (S) [Mass/Vol] 2.7 g/dL 2.2-4.2 [facility] Serum or plasma albumin rem[place] urement (mass/volume)Ordered By: Dr. Klein on 05-07-2022 Albumin [Mass/Vol] 3.6 g/dL 3.2-5.0 [facility] Serum or plasma cholesterol in HDL measurement (mass/volume)Ordered By: Dr. Klein on 05-07-2022 Cholesterol in HDL [Mass/Vol] 43 mg/dL >40 [facility] Comment on above: The drugs N-Acetylcy steine and Metamizole may falsely depress this assay. Reference Range HDL <40 mg/dL Low HDL Cholesterol HDL >or= 60 mg/dL High HDL Cholesterol Serum or plasma cholesterol in VLDL measurement (mass/volume)Ordered By: Dr. Klein on 05-07-2022 Cholesterol in VLDL [Mass/Vol] 29 mg/dL 5-40 [facility] Serum or plasma low density lipoprotein (LDL) cholesterol measurement (mass/volume)Ordered By: Dr. Klein on 05-07-2022 Cholesterol in LDL [Mass/Vol] 158 mg/dL 0-130 [facility] Thin prep Papanicolaou smear with manual screeningOrdered By: Dr. Klein on 05-07-2022 Thin prep Papanicolaou smear with manual screening 21 U/L 15-37 [facility] Absolute lymphocyte countOrd ered By: Dr. Casiano on 03-07-2022 Lymphocytes Auto (Unsp spec) [#/Vol] 1.37 10*3/uL 0.83-4.51 [facility] Basophil percentageOrdered B y: Dr. Casiano on 03-07-2022 Ammonia (P) [Moles/Vol] 22.0 umol/L 11-32 [facility] Basophils/100 WBC (Bld) 0.6 % 0-1 [facility] Bilirubin [Mass/Vol] 0.80 mg/dL 0.20-1.00 [facility] Comment on above: For patients on eltr ombopag therapy, use of Dimension [place] TBIL is not recommended. Chloride [Moles/Vol] 104 mmol/L 98-107 [facility] Eosinophils/100 WBC (Bld) 2.6 % 0-5 [facility] Glucose [Mass/Vol] 100 mg/dL 74-106 [facility] Comment on above: Fasting Glucose resu lt from 100 to 125 mg/dL suggests IMPAIRED HOMEOSTASIS per A.D.A. criteria. Neutrophils (Bld) [#/Vol] 3.4 10*3/uL 2.0-7.7 [facility] Neutrophils/100 WBC (Bld) 61.9 % 47-70 [facility] Potassium [Moles/Vol] 3.6 mmol/L 3.5-5.1 [facility] Protein [Mass/Vol] 6.5 g/dL 6.4-8.2 [facility] Sodium [Moles/Vol] 141 mmol/L 136-145 [facility] WBC (Bld) [#/Vol] 5.5 10*3/uL 4.4-11.0 [facility] Blood erythrocytes count (nu mber/volume)Ordered By: Dr. Casiano on 03-07-2022 RBC (Bld) [#/Vol] 4.28 10*6/uL 4.6-6.2 [facility] Blood hemoglobin measurement (mass/volume)Ordered By: Dr. Casiano on 03-07-2022 Hemoglobin (Bld) [Mass/Vol] 13.8 g/dL 13.0-16.5 [facility] Blood lymphocytes/100 leukoc ytesOrdered By: Dr. Casiano on 03-07-2022 Lymphocytes/100 WBC (Bld) 25.1 % 19-41 [facility] Blood monocytes/100 leukocyt esOrdered By: Dr. Casiano on 03-07-2022 Monocytes/100 WBC (Bld) 9.4 % 0-10 [facility] Blood platelet mean volumeOr dered By: Dr. Casiano on 03-07-2022 Platelet mean volume (Bld) [Entitic vol] 9.8 fL 6.2-12.0 [facility] Determination of erythrocyte mean corpuscular volume (MCV)Ordered By: Dr. Casiano on 03-07-2022 MCV (RBC) [Entitic vol] 94.6 fL 80-94 [facility] Hematocrit Auto (Bld) [Volum e fraction]Ordered By: Dr. Casiano on 03-07-2022 Hematocrit (Bld) [Volume fraction] 40.5 % 40-54 [facility] Laboratory - Chemistry and C hemistry - challengeOrdered By: Dr. Casiano on 03-07-2022 Albumin [Mass/Vol] 3.8 g/dL 2.9-4.4 [facility] ALP [Catalytic activity/Vol] 56 U/L 45-117 [facility] ALT [Catalytic activity/Vol] 28 U/L 16-61 [facility] CO2 [Moles/Vol] 28.0 mmol/L 21.0-32.0 [facility] Urea nitrogen/Creatinine [Mass ratio] 14.5 mg/mg 10-20 [facility] Laboratory - Hematology and Cell countsOrdered By: Dr. Casiano on 03-07-2022 Erythrocyte distribution width (RBC) [Entitic vol] 48.5 fL 35.1-43.9 [facility] Erythrocyte distribution width (RBC) [Ratio] 14.0 % 11.6-14.6 [facility] Immature granulocytes/100 WBC (Bld) 0.400 % 0.0-0.9 [facility] Comment on above: IG% - Immature Granu locytes (promyelocytes, myelocytes and metamyelocytes) > 1% indicates that a LEFT SHIFT is Present. MCH (RBC) [Entitic mass] 32.2 pg 27.0-32.0 [facility] Nucleated RBC/100 WBC (Bld) [Ratio] 0 % 0-5 [facility] MCHC Auto (RBC) [Mass/Vol]Or dered By: Dr. Casiano on 03-07-2022 MCHC (RBC) [Mass/Vol] 34.1 g/dL 32-36 [facility] No Panel InformationOrdered By: Dr. Casiano on 03-07-2022 Addendum Document Comment . [facility] Comment on above: The SPE pattern appe ars unremarkable. Evidence ofmonoclonal protein is not apparent. Qfmbm-2-Qnohxrkmv 0.2 g/dL 0.0-0.4 [facility] Zcina-7-Fdoawhlzx 0.6 g/dL 0.4-1.0 [facility] Estimated GFR (MDRD) Amer 74 mL/min >60 [facility] Comment on above: GFR Calc Estimated GFR (MDRD) Non-Af Amer 61 mL/min >60 [facility] Comment on above: Non- GFR Calc Gamma Globulins 0.8 g/dL 0.4-1.8 [facility] Miscellaneous Test See comment [facility] Comment on above: TEST RESULT LIMITSCo enzyme Q10, Total 1.27 ug/mL 0.37-2.20 ____ TESTING PERFORMED AT [facility]. ORIGINAL REPORT ON FILE IN LAB CONTAINS ADDITIONAL TEST SITE INFORMATION. Thyroid Stimulating Hormone (TSH) 1.16 uIU/mL 0.358-3.74 [facility] Vitamin D 25-Hydroxy 60.6 ng/mL [facility] Comment on above: Vitamin D 25(OH) Sta tus Range Deficiency <20 ng/mL (50nmol/L) Insufficiency 20 - 30 ng/mL (50 - 75 nmol/L) Sufficiency 30 - 100 ng/mL (75 - 250 nmol/L) Toxicity >100 ng/mL (>250 nmol/L) Platelets bldOrdered By: Dr. Casiano on 03-07-2022 Platelets (Bld) [#/Vol] 194 10*3/uL 150-450 [facility] Protein Fractions Elph [Inte rp]Ordered By: Dr. Casiano on 03-07-2022 Protein Fractions [Interp] Comment . [facility] Comment on above: Protein electrophore sis scan will follow via computer,mail, or disability attorney delivery. Serum Treponema species anti body detectionOrdered By: Dr. Casiano on 03-07-2022 Treponema sp Ab Ql (S) Non-Reactive [facility] Serum albumin to globulin ra amber by protein electrophoresisOrdered By: Dr. Casiano on 03-07-2022 Albumin/Globulin Elph [Mass ratio] 1.5 0.7-1.7 [facility] Serum globulin measurement ( mass/volume)Ordered By: Dr. Casiano on 03-07-2022 Globulin (S) [Mass/Vol] 2.6 g/dL 2.2-3.9 [facility] Serum or plasma albumin [place] urement (mass/volume)Ordered By: Dr. Casiano on 03-07-2022 Albumin [Mass/Vol] 3.9 g/dL 3.2-5.0 [facility] Serum or plasma albumin/glob ulin mass ratioOrdered By: Dr. Casiano on 03-07-2022 Albumin/Globulin [Mass ratio] 1.5 {ratio} 0.9-2.4 [facility] Serum or plasma beta globuli n measurement by electrophoresis (mass/volume)Ordered By: Dr. Casiano on 03-07-2022 Beta globulin Elph [Mass/Vol] 1.0 g/dL 0.7-1.3 [facility] Serum or plasma calcium remington urement (mass/volume)Ordered By: Dr. Casiano on 03-07-2022 Calcium [Mass/Vol] 9.6 mg/dL 8.5-10.1 [facility] Serum or plasma creatinine m easurement (mass/volume)Ordered By: Dr. Casiano on 03-07-2022 Creatinine [Mass/Vol] 1.24 mg/dL 0.70-1.30 [facility] Comment on above: The validity of the calculated GFR & GFRAA in patients over 70 years has not been determined. Clinical correlation is essential. Serum or plasma retinol remington urement (mass/volume)Ordered By: Dr. Casiano on 03-07-2022 Retinol [Mass/Vol] 64.6 ug/dL 22.0-69.5 [facility] Comment on above: Reference intervals for vitamin A determined from LabCorpinternal studies. Individuals with vitamin A less than 20ug/dL are considered vitamin A deficient and those withserum concentrations less than 10 ug/dL are consideredseverely deficient.This test was developed and its performance characteristicsdetermined by [facility]. It has not been cleared orapproved by the Food and Drug Administration.Performed at: [address] [id number] Director: Aime Guadalupe PhD, Phone: [phone] at: [address] [id number] Director: Alfa Kwan MD, Phone: [phone] Serum or plasma urea nitroge n measurement (mass/volume)Ordered By: Dr. Casiano on 03-07-2022 Urea nitrogen [Mass/Vol] 18 mg/dL 7-18 [facility] Thin prep Papanicolaou smear with manual screeningOrdered By: Dr. Casiano on 03-07-2022 Thin prep Papanicolaou smear with manual screening 20 U/L 15-37 [facility] Thin prep Papanicolaou smear with manual screening 9 5-15 [facility] Thin prep Papanicolaou smear with manual screening See comment [facility] Comment on above: NOT OBSERVED Total protein bloodOrdered B y: Dr. Casiano on 03-07-2022 Protein [Mass/Vol] 6.4 g/dL 6.0-8.5 [facility] Laboratory - Chemistry and C hemistry - challengeOrdered By: Yamilet Benavides on 02-13-2022 Natriuretic peptide B (Bld) [Mass/Vol] 26.2 pg/mL 0-100 [facility] Basophil percentageOrdered B y: Yamilet Benavides on 02-12-2022 Bilirubin [Mass/Vol] 0.60 mg/dL 0.20-1.00 [facility] Comment on above: For patients on eltr ombopag therapy, use of Dimension [place] TBIL is not recommended. Cholesterol [Mass/Vol] 163 mg/dL <200 [facility] Comment on above: <200 mg/dL Desirable 200-240 mg/dL Borderline >240 mg/dL High Risk Protein [Mass/Vol] 5.9 g/dL 6.4-8.2 [facility] Triglyceride [Mass/Vol] 127 mg/dL <199 [facility] Comment on above: The drugs N-Acetylcy steine and Metamizole may falsely depress this assay.Serum Triglycerides Reference Interval Normal <150 mg/dL Borderline high 150 - 199 mg/dL High 200 - 499 mg/dL Very High > or = 500 mg/dL Direct bilirubinOrdered By: Yamilet Benavides on 02-12-2022 Bilirubin.direct [Mass/Vol] 0.18 mg/dL 0.00-0.30 [facility] Laboratory - Chemistry and C hemistry - challengeOrdered By: Yamilet Benavides on 02-12-2022 ALP [Catalytic activity/Vol] 57 U/L 45-117 [facility] ALT [Catalytic activity/Vol] 24 U/L 16-61 [facility] Globulin (S) [Mass/Vol] 2.4 g/dL 2.2-4.2 [facility] Serum or plasma albumin remington urement (mass/volume)Ordered By: Yamilet Benavides on 02-12-2022 Albumin [Mass/Vol] 3.5 g/dL 3.2-5.0 [facility] Serum or plasma cholesterol in HDL measurement (mass/volume)Ordered By: Yamilet Benavides on 02-12-2022 Cholesterol in HDL [Mass/Vol] 47 mg/dL >40 [facility] Comment on above: The drugs N-Acetylcy steine and Metamizole may falsely depress this assay. Reference Range HDL <40 mg/dL Low HDL Cholesterol HDL >or= 60 mg/dL High HDL Cholesterol Serum or plasma cholesterol in VLDL measurement (mass/volume)Ordered By: Yamilet Benavides on 02-12-2022 Cholesterol in VLDL [Mass/Vol] 25 mg/dL 5-40 [facility] Serum or plasma low density lipoprotein (LDL) cholesterol measurement (mass/volume)Ordered By: Yamilet Benavides on 02-12-2022 Cholesterol in LDL [Mass/Vol] 91 mg/dL 0-130 [facility] Thin prep Papanicolaou smear with manual screeningOrdered By: Yamilet Benavides on 02-12-2022 Thin prep Papanicolaou smear with manual screening 16 U/L 15-37 [facility] Absolute lymphocyte countOrd ered By: Dr. Dillard on 02-10-2022 Lymphocytes Auto (Unsp spec) [#/Vol] 1.00 10*3/uL 0.83-4.51 [facility] Basophil percentageOrdered B y: Dr. Dillard on 02-10-2022 Basophils/100 WBC (Bld) 0.5 % 0-1 [facility] Chloride [Moles/Vol] 108 mmol/L 98-107 [facility] Eosinophils/100 WBC (Bld) 2.6 % 0-5 [facility] Glucose [Mass/Vol] 119 mg/dL 74-106 [facility] Comment on above: Fasting Glucose resu lt from 100 to 125 mg/dL suggests IMPAIRED HOMEOSTASIS per A.D.A. criteria. Neutrophils (Bld) [#/Vol] 2.8 10*3/uL 2.0-7.7 [facility] Neutrophils/100 WBC (Bld) 65.1 % 47-70 [facility] Potassium [Moles/Vol] 4.1 mmol/L 3.5-5.1 [facility] Sodium [Moles/Vol] 143 mmol/L 136-145 [facility] WBC (Bld) [#/Vol] 4.2 10*3/uL 4.4-11.0 [facility] Blood erythrocytes count (nu mber/volume)Ordered By: Dr. Dillard on 02-10-2022 RBC (Bld) [#/Vol] 3.94 10*6/uL 4.6-6.2 [facility] Blood hemoglobin measurement (mass/volume)Ordered By: Dr. Dillard on 02-10-2022 Hemoglobin (Bld) [Mass/Vol] 12.9 g/dL 13.0-16.5 [facility] Blood lymphocytes/100 leukoc ytesOrdered By: Dr. Dillard on 02-10-2022 Lymphocytes/100 WBC (Bld) 23.7 % 19-41 [facility] Blood monocytes/100 leukocyt esOrdered By: Dr. Dillard on 02-10-2022 Monocytes/100 WBC (Bld) 7.6 % 0-10 [facility] Blood platelet mean volumeOr dered By: Dr. Dillard on 02-10-2022 Platelet mean volume (Bld) [Entitic vol] 9.9 fL 6.2-12.0 [facility] Determination of erythrocyte mean corpuscular volume (MCV)Ordered By: Dr. Dillard on 02-10-2022 MCV (RBC) [Entitic vol] 99.2 fL 80-94 [facility] Hematocrit Auto (Bld) [Volum e fraction]Ordered By: Dr. Dillard on 02-10-2022 Hematocrit (Bld) [Volume fraction] 39.1 % 40-54 [facility] Laboratory - Chemistry and C hemistry - challengeOrdered By: Dr. Dillard on 02-10-2022 CO2 [Moles/Vol] 30.0 mmol/L 21.0-32.0 [facility] Urea nitrogen/Creatinine [Mass ratio] 17.3 mg/mg 10-20 [facility] Laboratory - Hematology and Cell countsOrdered By: Dr. Dillard on 02-10-2022 Erythrocyte distribution width (RBC) [Entitic vol] 51.8 fL 35.1-43.9 [facility] Erythrocyte distribution width (RBC) [Ratio] 14.2 % 11.6-14.6 [facility] Immature granulocytes/100 WBC (Bld) 0.500 % 0.0-0.9 [facility] Comment on above: IG% - Immature Granu locytes (promyelocytes, myelocytes and metamyelocytes) > 1% indicates that a LEFT SHIFT is Present. MCH (RBC) [Entitic mass] 32.7 pg 27.0-32.0 [facility] Nucleated RBC/100 WBC (Bld) [Ratio] 0 % 0-5 [facility] MCHC Auto (RBC) [Mass/Vol]Or dered By: Dr. Dillard on 02-10-2022 MCHC (RBC) [Mass/Vol] 33.0 g/dL 32-36 [facility] No Panel InformationOrdered By: Dr. Dillard on 02-10-2022 Troponin I High Sensitivity 6 pg/mL 3.0-78.0 [facility] Comment on above: Please Note: New [place]ath[place] t Units and Gender Specific Reference Ranges. For more information see Policy Stat Procedure [place] High Sensitivity Troponin (TNIH) and attachments. Estimated Creatinine Clearance Calc 63.60 ml/min [facility] Estimated GFR (MDRD) Amer 85 mL/min >60 [facility] Comment on above: GFR Calc Estimated GFR (MDRD) Non-Af Amer 70 mL/min >60 [facility] Comment on above: Non- GFR Calc Platelets bldOrdered By: Dr. Dillard on 02-10-2022 Platelets (Bld) [#/Vol] 157 10*3/uL 150-450 [facility] Serum or plasma calcium remington urement (mass/volume)Ordered By: Dr. Dillard on 02-10-2022 Calcium [Mass/Vol] 9.3 mg/dL 8.5-10.1 [facility] Serum or plasma creatinine m easurement (mass/volume)Ordered By: Dr. Dillard on 02-10-2022 Creatinine [Mass/Vol] 1.10 mg/dL 0.70-1.30 [facility] Comment on above: The validity of the calculated GFR & GFRAA in patients over 70 years has not been determined. Clinical correlation is essential. Serum or plasma urea nitroge n measurement (mass/volume)Ordered By: Dr. Dillard on 02-10-2022 Urea nitrogen [Mass/Vol] 19 mg/dL 7-18 [facility] Thin prep Papanicolaou smear with manual screeningOrdered By: Dr. Dillard on 02-10-2022 Thin prep Papanicolaou smear with manual screening 5 5-15 [facility] Basophil percentageOrdered B y: Dr. Casiano on 02-07-2022 Chloride [Moles/Vol] 110 mmol/L 98-107 [facility] Glucose [Mass/Vol] 110 mg/dL 74-106 [facility] Comment on above: Fasting Glucose resu lt from 100 to 125 mg/dL suggests IMPAIRED HOMEOSTASIS per A.D.A. criteria. Potassium [Moles/Vol] 4.1 mmol/L 3.5-5.1 [facility] Sodium [Moles/Vol] 143 mmol/L 136-145 [facility] Laboratory - Chemistry and C hemistry - challengeOrdered By: Dr. Casiano on 02-07-2022 CO2 [Moles/Vol] 28.0 mmol/L 21.0-32.0 [facility] Urea nitrogen/Creatinine [Mass ratio] 12.8 mg/mg 10-20 [facility] No Panel InformationOrdered By: Dr. Casiano on 02-07-2022 Estimated GFR (MDRD) Amer 86 mL/min >60 [facility] Comment on above: GFR Calc Estimated GFR (MDRD) Non-Af Amer 71 mL/min >60 [facility] Comment on above: Non- GFR Calc Serum or plasma calcium remington urement (mass/volume)Ordered By: Dr. Casiano on 02-07-2022 Calcium [Mass/Vol] 8.9 mg/dL 8.5-10.1 [facility] Serum or plasma creatinine m easurement (mass/volume)Ordered By: Dr. Casiano on 02-07-2022 Creatinine [Mass/Vol] 1.09 mg/dL 0.70-1.30 [facility] Comment on above: The validity of the calculated GFR & GFRAA in patients over 70 years has not been determined. Clinical correlation is essential. Serum or plasma urea nitroge n measurement (mass/volume)Ordered By: Dr. Casiano on 02-07-2022 Urea nitrogen [Mass/Vol] 14 mg/dL 7-18 [facility] Thin prep Papanicolaou smear with manual screeningOrdered By: Dr. Casiano on 02-07-2022 Thin prep Papanicolaou smear with manual screening 5 5-15 [facility] Absolute lymphocyte countOrd ered By: Dr. Levine on 01-10-2022 Lymphocytes Auto (Unsp spec) [#/Vol] 1.41 10*3/uL 0.83-4.51 [facility] Basophil percentageOrdered B y: Dr. Levine on 01-10-2022 Basophils/100 WBC (Bld) 0.4 % 0-1 [facility] Bilirubin [Mass/Vol] 0.90 mg/dL 0.20-1.00 [facility] Comment on above: For patients on eltr ombopag therapy, use of Dimension [place] TBIL is not recommended. Chloride [Moles/Vol] 101 mmol/L 98-107 [facility] Eosinophils/100 WBC (Bld) 2.5 % 0-5 [facility] Glucose [Mass/Vol] 76 mg/dL 74-106 [facility] Neutrophils (Bld) [#/Vol] 4.7 10*3/uL 2.0-7.7 [facility] Neutrophils/100 WBC (Bld) 68.0 % 47-70 [facility] Potassium [Moles/Vol] 3.1 mmol/L 3.5-5.1 [facility] Protein [Mass/Vol] 7.0 g/dL 6.4-8.2 [facility] Sodium [Moles/Vol] 139 mmol/L 136-145 [facility] WBC (Bld) [#/Vol] 6.9 10*3/uL 4.4-11.0 [facility] Blood erythrocytes count (nu mber/volume)Ordered By: Dr. Levine on 01-10-2022 RBC (Bld) [#/Vol] 4.06 10*6/uL 4.6-6.2 [facility] Blood hemoglobin measurement (mass/volume)Ordered By: Dr. Levine on 01-10-2022 Hemoglobin (Bld) [Mass/Vol] 12.8 g/dL 13.0-16.5 [facility] Blood lymphocytes/100 leukoc ytesOrdered By: Dr. Levine on 01-10-2022 Lymphocytes/100 WBC (Bld) 20.6 % 19-41 [facility] Blood monocytes/100 leukocyt esOrdered By: Dr. Levine on 01-10-2022 Monocytes/100 WBC (Bld) 7.9 % 0-10 [facility] Blood platelet mean volumeOr dered By: Dr. Levine on 01-10-2022 Platelet mean volume (Bld) [Entitic vol] 9.6 fL 6.2-12.0 [facility] Determination of erythrocyte mean corpuscular volume (MCV)Ordered By: Dr. Levine on 01-10-2022 MCV (RBC) [Entitic vol] 96.6 fL 80-94 [facility] Hematocrit Auto (Bld) [Volum e fraction]Ordered By: Dr. Levine on 01-10-2022 Hematocrit (Bld) [Volume fraction] 39.2 % 40-54 [facility] Laboratory - Chemistry and C hemistry - challengeOrdered By: Dr. Levine on 01-10-2022 ALP [Catalytic activity/Vol] 74 U/L 45-117 [facility] ALT [Catalytic activity/Vol] 33 U/L 16-61 [facility] CO2 [Moles/Vol] 32.0 mmol/L 21.0-32.0 [facility] Globulin (S) [Mass/Vol] 3.0 g/dL 2.2-4.2 [facility] Urea nitrogen/Creatinine [Mass ratio] 15.8 mg/mg 10-20 [facility] Laboratory - Hematology and Cell countsOrdered By: Dr. Levine on 01-10-2022 Erythrocyte distribution width (RBC) [Entitic vol] 48.6 fL 35.1-43.9 [facility] Erythrocyte distribution width (RBC) [Ratio] 13.8 % 11.6-14.6 [facility] Immature granulocytes/100 WBC (Bld) 0.600 % 0.0-0.9 [facility] Comment on above: IG% - Immature Granu locytes (promyelocytes, myelocytes and metamyelocytes) > 1% indicates that a LEFT SHIFT is Present. MCH (RBC) [Entitic mass] 31.5 pg 27.0-32.0 [facility] Nucleated RBC/100 WBC (Bld) [Ratio] 0 % 0-5 [facility] MCHC Auto (RBC) [Mass/Vol]Or dered By: Dr. Levine on 01-10-2022 MCHC (RBC) [Mass/Vol] 32.7 g/dL 32-36 [facility] No Panel InformationOrdered By: Dr. Levine on 01-10-2022 Estimated GFR (MDRD) Amer 81 mL/min >60 [facility] Comment on above: GFR Calc Estimated GFR (MDRD) Non-Af Amer 67 mL/min >60 [facility] Comment on above: Non- GFR Calc Hepatitis B Surface Antigen Non-Reactive Nonreactive [facility] Hepatitis C Antibody Non-Reactive Nonreactive [facility] Comment on above: Non Reactive: < 0.8 Equivocal: >/= 0.8 to < 1.0 Reactive: >/= 1.0The CDC recommends that a reactive/equivocal HCV antibody result be followed up by the HCV Nucleic Acid Amplificationtest (279199) Platelets bldOrdered By: Dr. Levine on 01-10-2022 Platelets (Bld) [#/Vol] 203 10*3/uL 150-450 [facility] Serum cyclic citrullinated p eptide IgG antibody assay (units/volume)Ordered By: Dr. Levine on 01-10-2022 Cyclic citrullinated peptide IgG Qn 2 units 0-19 [facility] Comment on above: Negative <20 Weak po sitive 20 - 39 Moderate positive 40 - 59 Strong positive >59Performed at: - [address] [id number] Director: Alfa Kwan MD, Phone: [phone] Serum hepatitis B virus surf joseph antibody IgG detectionOrdered By: Dr. Levine on 01-10-2022 HBV surface IgG Ql (S) Non-Reactive [facility] Comment on above: Non Reactive: Incons istent with immunity less than <10 mIU/mL Reactive: Consistent with immunity greater than or equal to 10 mIU/mL Serum or plasma albumin remington urement (mass/volume)Ordered By: Dr. Levine on 01-10-2022 Albumin [Mass/Vol] 4.0 g/dL 3.2-5.0 [facility] Serum or plasma albumin/glob ulin mass ratioOrdered By: Dr. Levine on 01-10-2022 Albumin/Globulin [Mass ratio] 1.3 {ratio} 0.9-2.4 [facility] Serum or plasma calcium remington urement (mass/volume)Ordered By: Dr. Levine on 01-10-2022 Calcium [Mass/Vol] 9.1 mg/dL 8.5-10.1 [facility] Serum or plasma creatinine m easurement (mass/volume)Ordered By: Dr. Levine on 01-10-2022 Creatinine [Mass/Vol] 1.14 mg/dL 0.70-1.30 [facility] Comment on above: The validity of the calculated GFR & GFRAA in patients over 70 years has not been determined. Clinical correlation is essential. Serum or plasma urea nitroge n measurement (mass/volume)Ordered By: Dr. Levine on 01-10-2022 Urea nitrogen [Mass/Vol] 18 mg/dL 7-18 [facility] Serum rheumatoid factor dete ctionOrdered By: Dr. Levine on 01-10-2022 Rheumatoid factor Ql (S) < 10.0 IU/mL <15 [facility] Thin prep Papanicolaou smear with manual screeningOrdered By: Dr. Levine on 01-10-2022 Thin prep Papanicolaou smear with manual screening 18 U/L 15-37 [facility] Thin prep Papanicolaou smear with manual screening 6 5-15 [facility] Absolute lymphocyte countOrd ered By: Dr. Villarreal on 12-18-2021 Lymphocytes Auto (Unsp spec) [#/Vol] 1.15 10*3/uL 0.83-4.51 [facility] Basophil percentageOrdered B y: Dr. Villarreal on 12-18-2021 Basophils/100 WBC (Bld) 0.7 % 0-1 [facility] Chloride [Moles/Vol] 104 mmol/L 98-107 [facility] Eosinophils/100 WBC (Bld) 3.0 % 0-5 [facility] Glucose [Mass/Vol] 100 mg/dL 74-106 [facility] Comment on above: Fasting Glucose resu lt from 100 to 125 mg/dL suggests IMPAIRED HOMEOSTASIS per A.D.A. criteria. Neutrophils (Bld) [#/Vol] 3.8 10*3/uL 2.0-7.7 [facility] Neutrophils/100 WBC (Bld) 67.2 % 47-70 [facility] Potassium [Moles/Vol] 3.6 mmol/L 3.5-5.1 [facility] Sodium [Moles/Vol] 140 mmol/L 136-145 [facility] WBC (Bld) [#/Vol] 5.7 10*3/uL 4.4-11.0 [facility] Blood erythrocytes count (nu mber/volume)Ordered By: Dr. Villarreal on 12-18-2021 RBC (Bld) [#/Vol] 3.80 10*6/uL 4.6-6.2 [facility] Blood hemoglobin measurement (mass/volume)Ordered By: Dr. Villarreal on 12-18-2021 Hemoglobin (Bld) [Mass/Vol] 12.2 g/dL 13.0-16.5 [facility] Blood lymphocytes/100 leukoc ytesOrdered By: Dr. Villarreal on 12-18-2021 Lymphocytes/100 WBC (Bld) 20.4 % 19-41 [facility] Blood monocytes/100 leukocyt esOrdered By: Dr. Villarreal on 12-18-2021 Monocytes/100 WBC (Bld) 8.3 % 0-10 [facility] Blood platelet mean volumeOr dered By: Dr. Villarreal on 12-18-2021 Platelet mean volume (Bld) [Entitic vol] 9.2 fL 6.2-12.0 [facility] Determination of erythrocyte mean corpuscular volume (MCV)Ordered By: Dr. Villarreal on 12-18-2021 MCV (RBC) [Entitic vol] 96.1 fL 80-94 [facility] Hematocrit Auto (Bld) [Volum e fraction]Ordered By: Dr. Villarreal on 12-18-2021 Hematocrit (Bld) [Volume fraction] 36.5 % 40-54 [facility] Laboratory - Chemistry and C hemistry - challengeOrdered By: Dr. Villarreal on 12-18-2021 CO2 [Moles/Vol] 30.0 mmol/L 21.0-32.0 [facility] Urea nitrogen/Creatinine [Mass ratio] 14.0 mg/mg 10-20 [facility] Laboratory - Hematology and Cell countsOrdered By: Dr. Villarreal on 12-18-2021 Erythrocyte distribution width (RBC) [Entitic vol] 48.2 fL 35.1-43.9 [facility] Erythrocyte distribution width (RBC) [Ratio] 13.8 % 11.6-14.6 [facility] Immature granulocytes/100 WBC (Bld) 0.400 % 0.0-0.9 [facility] Comment on above: IG% - Immature Granu locytes (promyelocytes, myelocytes and metamyelocytes) > 1% indicates that a LEFT SHIFT is Present. MCH (RBC) [Entitic mass] 32.1 pg 27.0-32.0 [facility] Nucleated RBC/100 WBC (Bld) [Ratio] 0 % 0-5 [facility] MCHC Auto (RBC) [Mass/Vol]Or dered By: Dr. Villarreal on 12-18-2021 MCHC (RBC) [Mass/Vol] 33.4 g/dL 32-36 [facility] No Panel InformationOrdered By: Dr. Villarreal on 12-18-2021 Estimated Creatinine Clearance Calc 54.23 ml/min [facility] Estimated GFR (MDRD) Amer 71 mL/min >60 [facility] Comment on above: GFR Calc Estimated GFR (MDRD) Non-Af Amer 58 mL/min >60 [facility] Comment on above: Non- GFR Calc Troponin I High Sensitivity 6 pg/mL 3.0-78.0 [facility] Comment on above: Please Note: New Nathalia t Units and Gender Specific Reference Ranges. For more information see Policy Stat Procedure [employer] [place] High Sensitivity Troponin (TNIH) and attachments. Platelets bldOrdered By: Dr. Villarreal on 12-18-2021 Platelets (Bld) [#/Vol] 160 10*3/uL 150-450 [facility] Serum or plasma calcium rem[place] urement (mass/volume)Ordered By: Dr. Villarreal on 12-18-2021 Calcium [Mass/Vol] 9.5 mg/dL 8.5-10.1 [facility] Serum or plasma creatinine m easurement (mass/volume)Ordered By: Dr. Villarreal on 12-18-2021 Creatinine [Mass/Vol] 1.29 mg/dL 0.70-1.30 [facility] Comment on above: The validity of the calculated GFR & GFRAA in patients over 70 years has not been determined. Clinical correlation is essential. Serum or plasma urea nitroge n measurement (mass/volume)Ordered By: Dr. Villarreal on 12-18-2021 Urea nitrogen [Mass/Vol] 18 mg/dL 7-18 [facility] Thin prep Papanicolaou smear with manual screeningOrdered By: Dr. Villarreal on 12-18-2021 Thin prep Papanicolaou smear with manual screening 6 5-15 [facility] Atypical perinuclear antineu trophil cytoplasmic antibodies measurementOrdered By: Dr. Casiano on 11-21-2021 Neutrophil cytoplasmic Ab.perinuclear.atypical IF (S) [Titer] <1:20 titer Neg:<1:20 [facility] Comment on above: The atypical pANCA p attern has been observed in asignificant percentage of patients with ulcerative colitis,primary sclerosing cholangitis and autoimmune hepatitis.Performed at: [facility] [employer] [id number] Director: Aime Guadalupe PhD, Phone: [phone] Basophil percentageOrdered B y: Dr. Casiano on 11-21-2021 Basophil percentage 0.2 AI 0.0-0.9 [facility] Basophil percentage < 0.2 AI 0.0-0.9 [facility] Bilirubin [Mass/Vol] 0.90 mg/dL 0.20-1.00 [facility] Comment on above: For patients on eltr ombopag therapy, use of Dimension [place] TBIL is not recommended. Chloride [Moles/Vol] 106 mmol/L 98-107 [facility] Cholesterol [Mass/Vol] 136 mg/dL <200 [facility] Comment on above: <200 mg/dL Desirable 200-240 mg/dL Borderline >240 mg/dL High Risk Glucose [Mass/Vol] 88 mg/dL 74-106 [facility] Potassium [Moles/Vol] 3.8 mmol/L 3.5-5.1 [facility] Protein [Mass/Vol] 6.9 g/dL 6.4-8.2 [facility] Sodium [Moles/Vol] 141 mmol/L 136-145 [facility] Laboratory - Chemistry and C hemistry - challengeOrdered By: Dr. Casiano on 11-21-2021 Albumin [Mass/Vol] 4.1 g/dL 2.9-4.4 [facility] ALP [Catalytic activity/Vol] 69 U/L 45-117 [facility] ALT [Catalytic activity/Vol] 30 U/L 16-61 [facility] CK [Catalytic activity/Vol] 111 U/L 39-308 [facility] CO2 [Moles/Vol] 30.0 mmol/L 21.0-32.0 [facility] Globulin (S) [Mass/Vol] 3.1 g/dL 2.2-4.2 [facility] Magnesium [Mass/Vol] 2.3 mg/dL 1.6-2.6 [facility] Urea nitrogen/Creatinine [Mass ratio] 16.5 mg/mg 10-20 [facility] No Panel InformationOrdered By: Dr. Casiano on 11-21-2021 Addendum Document Comment . [facility] Comment on above: The SPE pattern appe ars unremarkable. Evidence ofmonoclonal protein is not apparent. Cycwg-9-Fdyyajlzy 0.3 g/dL 0.0-0.4 [facility] Kzldv-8-Astrrzqls 0.6 g/dL 0.4-1.0 [facility] Centromere B Antibody <0.2 AI 0.0-0.9 [facility] Estimated GFR (MDRD) Amer 86 mL/min >60 [facility] Comment on above: GFR Calc Estimated GFR (MDRD) Non-Af Amer 71 mL/min >60 [facility] Comment on above: Non- GFR Calc Gamma Globulins 0.7 g/dL 0.4-1.8 [facility] [employer] Antibody <0.2 AI 0.0-0.9 [facility] Vitamin D 25-Hydroxy 43.6 ng/mL [facility] Comment on above: Vitamin D 25(OH) Sta tus Range Deficiency <20 ng/mL (50nmol/L) Insufficiency 20 - 30 ng/mL (50 - 75 nmol/L) Sufficiency 30 - 100 ng/mL (75 - 250 nmol/L) Toxicity >100 ng/mL (>250 nmol/L) Protein Fractions Elph [Inte rp]Ordered By: Dr. Casiano on 11-21-2021 Protein Fractions [Interp] Comment . [facility] Comment on above: Protein electrophore sis scan will follow via computer,mail, or disability attorney delivery. Serum DNA double strand anti body assay (units/volume)Ordered By: Dr. Casiano on 11-21-2021 DNA double strand Ab Qn (S) [IU]/mL 0-9 [facility] Comment on above: Negative <5 Equivoca l 5 - 9 Positive >9 Serum Lorelei-1 antibody assay (u nits/volume)Ordered By: Dr. Casiano on 11-21-2021 Lorelei-1 extractable nuclear Ab Qn (S) <0.2 AI 0.0-0.9 [facility] Serum Scl-70 extractable nuc lear antibody assay (units/volume)Ordered By: Dr. Casiano on 11-21-2021 SCL-70 extractable nuclear Ab Qn (S) <0.2 AI 0.0-0.9 [facility] Serum Casiano extractable nucl ear antibody detectionOrdered By: Dr. Casiano on 11-21-2021 Oh extractable nuclear Ab Ql (S) <0.2 AI 0.0-0.9 [facility] Serum albumin to globulin ra amber by protein electrophoresisOrdered By: Dr. Casiano on 11-21-2021 Albumin/Globulin Elph [Mass ratio] 1.6 0.7-1.7 [facility] Serum classic neutrophil cyt oplasmic antibody assay (units/volume)Ordered By: Dr. Casiano on 11-21-2021 Neutrophil cytoplasmic Ab.classic Qn (S) Comment titer Neg:<1:20 [facility] Comment on above: Results are Indeterm inate. Serum globulin measurement ( mass/volume)Ordered By: Dr. Casiano on 11-21-2021 Globulin (S) [Mass/Vol] 2.6 g/dL 2.2-3.9 [facility] Serum or plasma C reactive p rotein measurement (mass/volume)Ordered By: Dr. Casiano on 11-21-2021 CRP [Mass/Vol] mg/L 0.0-3.0 [facility] Comment on above: C-Reactive Protein ( CRP) provides useful information for thediagnosis, therapy and monitoring of inflammatory processesand associated diseases. For the evaluation of Relative Riskfor Cardiovascular Disease, a High Sensitivity CRP (HSCRP)should be ordered. Serum or plasma albumin remington urement (mass/volume)Ordered By: Dr. Casiano on 11-21-2021 Albumin [Mass/Vol] 3.8 g/dL 3.2-5.0 [facility] Serum or plasma albumin/glob ulin mass ratioOrdered By: Dr. Casiano on 11-21-2021 Albumin/Globulin [Mass ratio] 1.2 {ratio} 0.9-2.4 [facility] Serum or plasma beta globuli n measurement by electrophoresis (mass/volume)Ordered By: Dr. Casiano on 11-21-2021 Beta globulin Elph [Mass/Vol] 1.0 g/dL 0.7-1.3 [facility] Serum or plasma calcium remington urement (mass/volume)Ordered By: Dr. Casiano on 11-21-2021 Calcium [Mass/Vol] 9.6 mg/dL 8.5-10.1 [facility] Serum or plasma cholesterol in HDL measurement (mass/volume)Ordered By: Dr. Casiano on 11-21-2021 Cholesterol in HDL [Mass/Vol] 46 mg/dL >40 [facility] Comment on above: The drugs N-Acetylcy steine and Metamizole may falsely depress this assay. Reference Range HDL <40 mg/dL Low HDL Cholesterol HDL >or= 60 mg/dL High HDL Cholesterol Serum or plasma creatinine m easurement (mass/volume)Ordered By: Dr. Casiano on 11-21-2021 Creatinine [Mass/Vol] 1.09 mg/dL 0.70-1.30 [facility] Comment on above: The validity of the calculated GFR & GFRAA in patients over 70 years has not been determined. Clinical correlation is essential. Serum or plasma urea nitroge n measurement (mass/volume)Ordered By: Dr. Casiano on 11-21-2021 Urea nitrogen [Mass/Vol] 18 mg/dL 7-18 [facility] Serum perinuclear neutrophil cytoplasmic antibody titer by immunofluorescenceOrdered By: Dr. Casiano on 11-21-2021 Neutrophil cytoplasmic Ab.perinuclear IF (S) [Titer] <1:20 titer Neg:<1:20 [facility] Comment on above: The presence of posi tive fluorescence exhibiting P-ANCA orC-ANCA patterns alone is not specific for the diagnosis ofWegener's Granulomatosis (WG) or microscopic polyangiitis.Decisions about treatment should not be based solely onANCA IFA results. The [employer] ANCA [employer] Consensusrecommends follow up testing of positive sera with both HI-3 and MPO-ANCA enzyme immunoassays. As many as 5% serumsamples are positive only by EIA. Ref. AM J Clin [id number];111:507-513. Thin prep Papanicolaou smear with manual screeningOrdered By: Dr. Casiano on 11-21-2021 Thin prep Papanicolaou smear with manual screening 20 U/L 15-37 [facility] Thin prep Papanicolaou smear with manual screening 5 5-15 [facility] Thin prep Papanicolaou smear with manual screening See comment [facility] Comment on above: Result: Not Observed Total protein bloodOrdered B y: Dr. Casiano on 11-21-2021 Protein [Mass/Vol] 6.7 g/dL 6.0-8.5 [facility] Absolute lymphocyte counton 08-16-2021 Lymphocytes Auto (Unsp spec) [#/Vol] 1.15 10*3/uL 0.83-4.51 [facility] Work Phone: Basophil percentageon 2021 Ammonia (P) [Moles/Vol] 23.0 umol/L 11-32 [facility] Work Phone: Basophils/100 WBC (Bld) 0.6 % 0-1 [facility] Work Phone: Bilirubin [Mass/Vol] 1.00 mg/dL 0.20-1.00 [facility] Work Phone: Comment on above: For patients on eltr ombopag therapy, use of Dimension [place] TBIL is not recommended. Chloride [Moles/Vol] 103 mmol/L 98-107 [facility] Work Phone: Eosinophils/100 WBC (Bld) 2.3 % 0-5 [facility] Work Phone: Glucose [Mass/Vol] 89 mg/dL 74-[address] [facility] [facility] Work Phone: Neutrophils (Bld) [#/Vol] 3.6 10*3/uL 2.0-7.7 [facility] Work Phone: Neutrophils/100 WBC (Bld) 67.2 % 47-70 [facility] Work Phone: Potassium [Moles/Vol] 3.6 mmol/L 3.5-5.1 [facility]: Protein [Mass/Vol] 6.7 g/dL 6.4-8.2 [facility] Work Phone: Sodium [Moles/Vol] 139 mmol/L 136-145 [facility] Work Phone: WBC (Bld) [#/Vol] 5.3 10*3/uL 4.4-11.0 [facility] Work Phone: Cholesterol [Mass/Vol] 123 mg/dL <200 [facility] Work Phone: Comment on above: <200 mg/dL Desirable 200-240 mg/dL Borderline >240 mg/dL High Risk Triglyceride [Mass/Vol] 101 mg/dL <199 [facility] Work Phone: Comment on above: The drugs N-Acetylcy steine and Metamizole may falsely depress this assay.Serum Triglycerides Reference Interval Normal <150 mg/dL Borderline high 150 - 199 mg/dL High 200 - 499 mg/dL Very High > or = 500 mg/dL Blood erythrocytes count (nu mber/volume)on 08-16-2021 RBC (Bld) [#/Vol] 3.56 10*6/uL 4.6-6.2 [facility] Work Phone: Blood hemoglobin measurement (mass/volume)on 08-16-2021 Hemoglobin (Bld) [Mass/Vol] 11.3 g/dL 13.0-16.5 [facility] Work Phone: Blood lymphocytes/100 leukoc yteson 08-16-2021 Lymphocytes/100 WBC (Bld) 21.6 % 19-41 [facility] Work Phone: Blood monocytes/100 leukocyt eson 08-16-2021 Monocytes/100 WBC (Bld) 8.1 % 0-10 [facility] Work Phone: Blood platelet mean volumeon 08-16-2021 Platelet mean volume (Bld) [Entitic vol] 9.7 fL 6.2-12.0 [facility] Work Phone: Determination of erythrocyte mean corpuscular volume (MCV)on 08-16-2021 MCV (RBC) [Entitic vol] 94.9 fL 80-94 [facility] Work Phone: Direct bilirubinon Bilirubin.direct [Mass/Vol] 0.27 mg/dL 0.00-0.30 [facility] Work Phone: Hematocrit Auto (Bld) [Volum e fraction]on 08-16-2021 Hematocrit (Bld) [Volume fraction] 33.8 % 40-54 [facility] Work Phone: Interpretation of Borrelia b urgdorferi antibody assayon 08-16-2021 B. burgdorferi Ab (S) [Interp] REF LAB [facility] Work Phone: Laboratory - Chemistry and C hemistry - challengeon 08-16-2021 ALP [Catalytic activity/Vol] 68 U/L 45-117 [facility] Work Phone: ALT [Catalytic activity/Vol] 33 U/L 16-61 [facility] Work Phone: CK [Catalytic activity/Vol] 139 U/L 39-308 [facility] Work Phone: CO2 [Moles/Vol] 30.0 mmol/L 21.0-32.0 [facility] Work Phone: [phone] Globulin (S) [Mass/Vol] 2.7 g/dL 2.2-4.2 [facility] Work Phone: [phone] Urea nitrogen/Creatinine [Mass ratio] 17.0 mg/mg 10-20 [facility] Work Phone: [phone] Laboratory - Hematology and Cell countson 08-16-2021 Erythrocyte distribution width (RBC) [Entitic vol] 49.2 fL 35.1-43.9 [facility] Work Phone: [phone] Erythrocyte distribution width (RBC) [Ratio] 14.1 % 11.6-14.6 [facility] Work Phone: [phone] Immature granulocytes/100 WBC (Bld) 0.200 % 0.0-0.9 [facility] Work Phone: [phone] Comment on above: IG% - Immature Granu locytes (promyelocytes, myelocytes and metamyelocytes) > 1% indicates that a LEFT SHIFT is Present. MCH (RBC) [Entitic mass] 31.7 pg 27.0-32.0 [facility] Work Phone: [phone] Nucleated RBC/100 WBC (Bld) [Ratio] 0 % 0-5 [facility] Work Phone: [phone] MCHC Auto (RBC) [Mass/Vol]on 08-16-2021 MCHC (RBC) [Mass/Vol] 33.4 g/dL 32-36 [facility] Work Phone: [phone] Panel Informationon 08-16 Estimated GFR (MDRD) Amer 89 mL/min >60 [facility] Work Phone: [phone] Comment on above: GFR Calc Estimated GFR (MDRD) Non-Af Amer 73 mL/min >60 [facility] Work Phone: [phone] Comment on above: Non- GFR Calc Miscellaneous Test See comment [facility] Work Phone: [phone] Comment on above: TEST RESULT LIMITSCo enzyme Q10 (Leukocytes) 125 pmol/mg protein 66 - 183 TESTING PERFORMED AT [facility]. ORIGINAL REPORT ON FILE IN LAB CONTAINS ADDITIONAL TEST SITE INFORMATION. Thyroid Stimulating Hormone (TSH) 1.03 uIU/mL 0.358-3.74 [facility] Work Phone: Platelets bldon 08-16-2021 Platelets (Bld) [#/Vol] 145 10*3/uL 150-450 [facility] Work Phone: Serum or plasma C reactive p rotein measurement (mass/volume)on 08-16-2021 CRP [Mass/Vol] mg/L 0.0-3.0 [facility] Work Phone: Comment on above: C-Reactive Protein ( CRP) provides useful information for thediagnosis, therapy and monitoring of inflammatory processesand associated diseases. For the evaluation of Relative Riskfor Cardiovascular Disease, a High Sensitivity CRP (HSCRP)should be ordered. Serum or plasma albumin remington urement (mass/volume)on 08-16-2021 Albumin [Mass/Vol] 4.0 g/dL 3.2-5.0 [facility] Work Phone: [phone] Serum or plasma albumin/glob ulin mass ratioon 08-16-2021 Albumin/Globulin [Mass ratio] 1.5 {ratio} 0.9-2.4 [facility] Work Phone: Serum or plasma calcium remington urement (mass/volume)on 08-16-2021 Calcium [Mass/Vol] 9.1 mg/dL 8.5-10.1 [facility] Work Phone: Serum or plasma cholesterol in HDL measurement (mass/volume)on 08-16-2021 Cholesterol in HDL [Mass/Vol] 47 mg/dL >40 [facility] Work Phone: Comment on above: The drugs N-Acetylcy steine and Metamizole may falsely depress this assay. Reference Range HDL <40 mg/dL Low HDL Cholesterol HDL >or= 60 mg/dL High HDL Cholesterol Serum or plasma cholesterol in VLDL measurement (mass/volume)on 08-16-2021 Cholesterol in VLDL [Mass/Vol] 20 mg/dL 5-40 [facility] Work Phone: Serum or plasma creatinine m easurement (mass/volume)on 08-16-2021 Creatinine [Mass/Vol] 1.06 mg/dL 0.70-1.30 [facility] Work Phone: Comment on above: The validity of the calculated GFR & GFRAA in patients over 70 years has not been determined. Clinical correlation is essential. Serum or plasma low density lipoprotein (LDL) cholesterol measurement (mass/volume)on 08-16-2021 Cholesterol in LDL [Mass/Vol] 56 mg/dL 0-130 [facility] Work Phone: Serum or plasma urea nitroge n measurement (mass/volume)on 08-16-2021 Urea nitrogen [Mass/Vol] 18 mg/dL 7-18 [facility] Work Phone: Thin prep Papanicolaou smear with manual screeningon 08-16-2021 Thin prep Papanicolaou smear with manual screening 25 U/L 15-37 [facility] Work Phone: Thin prep Papanicolaou smear with manual screening 6 5-15 [facility] Work Phone: Thin prep Papanicolaou smear with manual screening Negative Negative [facility] Work Phone: Comment on above: Lyme Antibody Negati veNo laboratory evidence of infection with B. burgdorferi(Lyme disease). Negative results may occur in patientsrecently infected (greater than or equal to 14 days) withB. burgdorferi. If recent infection is suspected, repeattesting on a new sample collected in 7 to 14 days isrecommended.Performed at: [address] [id number] Director: Aime Guadalupe PhD, Phone: [phone] Laboratory - Microbiology an d Antimicrobial susceptibilityon 06-28-2021 SARS-CoV-2 (COVID-19) RNA KASIE+probe Ql (Unsp spec) Not detected Not Detect [facility] Work Phone: Comment on above: Normal Reference Ran ge: Not DetectedMethod:(RT-PCR) real-time reverse transcriptase PCRLuminex HOMERO Instrument*The Food and Drug Administration (FDA) has issued an Emergency Use Authorization (EAU) for the Bevy SARS-CoV-2 Assay for the rapid detection of the virus that causes COVID-19. This test has been validated, but the FDAs independent review of this validation is pending.*Negative results do not preclude infection and should not be used as the sole basis for treatment or patient management. Optimum specimen types and timing for peak viral levels during infections caused by SARS-CoV-2 have not been determined. Collection of multiple specimens from the same patient may be necessary to detect the virus. The possibility of a false negative result should be considered if the patient has clinical presentation or has had recent exposure. Basophil percentageon 2021 Basophil percentage 2.8 mg/dL 2.5-4.9 [facility] Work Phone: Bilirubin [Mass/Vol] 0.80 mg/dL 0.20-1.00 [facility] Work Phone: Comment on above: For patients on eltr ombopag therapy, use of Dimension [place] TBIL is not recommended. Protein [Mass/Vol] 5.4 g/dL 6.4-8.2 [facility] Work Phone: Chloride [Moles/Vol] 102 mmol/L 98-107 [facility] Work Phone: [phone] Glucose [Mass/Vol] 138 mg/dL 74-106 [facility] Work Phone: [phone] Comment on above: Fasting Glucose resu lt greater than or equal to 126 mg/dL suggests DIABETES MELLITUS per A.D.A. criteria. Potassium [Moles/Vol] 3.3 mmol/L 3.5-5.1 [facility] Work Phone: Sodium [Moles/Vol] 135 mmol/L 136-145 [facility] Work Phone: [phone] WBC (Bld) [#/Vol] 6.2 10*3/uL 4.4-11.0 [facility] Work Phone: [phone] Blood erythrocytes count (nu mber/volume)on 06-13-2021 RBC (Bld) [#/Vol] 3.07 10*6/uL 4.6-6.2 [facility] Work Phone: [phone] Blood hemoglobin measurement (mass/volume)on 06-13-2021 Hemoglobin (Bld) [Mass/Vol] 10.2 g/dL 13.0-16.5 [facility] Work Phone: [phone] Blood platelet mean volumeon 06-13-2021 Platelet mean volume (Bld) [Entitic vol] 9.4 fL 6.2-12.0 [facility] Work Phone: [phone] Determination of erythrocyte mean corpuscular volume (MCV)on 06-13-2021 MCV (RBC) [Entitic vol] 98.0 fL 80-94 [facility] Work Phone: [phone] Direct bilirubinon Bilirubin.direct [Mass/Vol] 0.22 mg/dL 0.00-0.30 [facility] Work Phone: [phone] Hematocrit Auto (Bld) [Volum e fraction]on 06-13-2021 Hematocrit (Bld) [Volume fraction] 30.1 % 40-54 [facility] Work Phone: [phone] Laboratory - Chemistry and C hemistry - challengeon 06-13-2021 ALP [Catalytic activity/Vol] 49 U/L 45-117 [facility] Work Phone: [phone] ALT [Catalytic activity/Vol] 27 U/L 16-61 [facility] Work Phone: [phone] Globulin (S) [Mass/Vol] 2.4 g/dL 2.2-4.2 [facility] Work Phone: [phone] Magnesium [Mass/Vol] 2.1 mg/dL 1.6-2.6 [facility] Work Phone: CO2 [Moles/Vol] 26.0 mmol/L 21.0-32.0 [facility] Work Phone: [phone] Urea nitrogen/Creatinine [Mass ratio] 17.1 mg/mg 10-20 [facility] Work Phone: [phone] Laboratory - Hematology and Cell countson 06-13-2021 Erythrocyte distribution width (RBC) [Entitic vol] 48.2 fL 35.1-43.9 [facility] Work Phone: [phone] Erythrocyte distribution width (RBC) [Ratio] 13.5 % 11.6-14.6 [facility] Work Phone: [phone] MCH (RBC) [Entitic mass] 33.2 pg 27.0-32.0 [facility] Work Phone: [phone] MCHC Auto (RBC) [Mass/Vol]on 06-13-2021 MCHC (RBC) [Mass/Vol] 33.9 g/dL 32-36 [facility] Work Phone: No Panel Informationon 06-13 Troponin I High Sensitivity 6 pg/mL 3.0-78.0 [facility] Work Phone: [phone] Comment on above: Please Note: New Nathalia t Units and Gender Specific Reference Ranges. For more information see Policy Stat Procedure [place] High Sensitivity Troponin (TNIH) and attachments. Estimated Creatinine Clearance Calc 70.97 ml/min [facility] Work Phone: [phone] Estimated GFR (MDRD) Amer 95 mL/min >60 [facility] Work Phone: [phone] Comment on above: GFR Calc Estimated GFR (MDRD) Non-Af Amer 79 mL/min >60 [facility] Work Phone: [phone] Comment on above: Non- GFR Calc Platelets bldon 06-13-2021 Platelets (Bld) [#/Vol] 144 10*3/uL 150-450 [facility] Work Phone: [phone] Serum or plasma albumin rem[place] urement (mass/volume)on 06-13-2021 Albumin [Mass/Vol] 3.0 g/dL 3.2-5.0 [facility] Work Phone: Serum or plasma calcium [place] urement (mass/volume)on 06-13-2021 Calcium [Mass/Vol] 7.4 mg/dL 8.5-10.1 [facility] Work Phone: Serum or plasma creatinine m easurement (mass/volume)on 06-13-2021 Creatinine [Mass/Vol] 1.00 mg/dL 0.70-1.30 [facility] Work Phone: Comment on above: The validity of the calculated GFR & GFRAA in patients over 70 years has not been determined. Clinical correlation is essential. Serum or plasma urea nitroge n measurement (mass/volume)on 06-13-2021 Urea nitrogen [Mass/Vol] 17 mg/dL 7-18 [facility] Work Phone: Thin prep Papanicolaou smear with manual screeningon 06-13-2021 Thin prep Papanicolaou smear with manual screening 24 U/L 15-37 [facility] Work Phone: Thin prep Papanicolaou smear with manual screening 7 5-15 [facility] Work Phone: Basophil percentageon 2021 Bilirubin [Mass/Vol] 0.70 mg/dL 0.20-1.00 [facility] Work Phone: [phone] Comment on above: For patients on eltr ombopag therapy, use of Dimension [place] TBIL is not recommended. Cholesterol [Mass/Vol] 222 mg/dL <200 [facility] Work Phone: [phone] Comment on above: <200 mg/dL Desirable 200-240 mg/dL Borderline >240 mg/dL High Risk Protein [Mass/Vol] 6.6 g/dL 6.4-8.2 [facility] Work Phone: [phone] Triglyceride [Mass/Vol] 164 mg/dL <199 [facility] Work Phone: [phone] Comment on above: The drugs N-Acetylcy steine and Metamizole may falsely depress this assay.Serum Triglycerides Reference Interval Normal <150 mg/dL Borderline high 150 - 199 mg/dL High 200 - 499 mg/dL Very High > or = 500 mg/dL Direct bilirubinon Bilirubin.direct [Mass/Vol] 0.17 mg/dL 0.00-0.30 [facility] Work Phone: Laboratory - Chemistry and C hemistry - challengeon 05-17-2021 ALP [Catalytic activity/Vol] 74 U/L 45-117 [facility] Work Phone: ALT [Catalytic activity/Vol] 34 U/L 16-61 [facility] Work Phone: Globulin (S) [Mass/Vol] 2.8 g/dL 2.2-4.2 [facility] Work Phone: Serum or plasma albumin [place] urement (mass/volume)on 05-17-2021 Albumin [Mass/Vol] 3.8 g/dL 3.2-5.0 [facility] Work Phone: Serum or plasma cholesterol in HDL measurement (mass/volume)on 05-17-2021 Cholesterol in HDL [Mass/Vol] 38 mg/dL >40 [facility] Work Phone: Comment on above: The drugs N-Acetylcy steine and Metamizole may falsely depress this assay. Reference Range HDL <40 mg/dL Low HDL Cholesterol HDL >or= 60 mg/dL High HDL Cholesterol Serum or plasma cholesterol in VLDL measurement (mass/volume)on 05-17-2021 Cholesterol in VLDL [Mass/Vol] 33 mg/dL 5-40 [facility] Work Phone: Serum or plasma low density lipoprotein (LDL) cholesterol measurement (mass/volume)on 05-17-2021 Cholesterol in LDL [Mass/Vol] 151 mg/dL 0-130 [facility] Work Phone: Thin prep Papanicolaou smear with manual screeningon 05-17-2021 Thin prep Papanicolaou smear with manual screening 21 U/L 15-37 [facility] Work Phone: Clinical Summary: Katina chavez 05-10-2021 MC75 OP Visit Invalid Interpretation Code [facility] Work Phone: Office Visit: Test Result, R m: 22on 05-10-2021 NEGATED: Highlighted rowMRI (magnetic resonance imaging) history of the back on 05/02/2021 at [facility] Invalid Interpretation Code [facility] Work Phone: Basophil percentageon 2021 Chloride [Moles/Vol] 103 mmol/L 98-107 [facility] Work Phone: [phone] Glucose [Mass/Vol] 98 mg/dL 74-106 [facility] Work Phone: [phone] Potassium [Moles/Vol] 3.9 mmol/L 3.5-5.1 [facility] Work Phone: [phone] Sodium [Moles/Vol] 137 mmol/L 136-[address] [facility] Work Phone: [phone] WBC (Bld) [#/Vol] 5.7 10*3/uL 4.4-11.0 [facility] Work Phone: [phone] Blood erythrocytes count (nu mber/volume)on 05-09-2021 RBC (Bld) [#/Vol] 3.94 10*6/uL 4.6-6.2 [facility] Work Phone: [phone] Blood hemoglobin measurement (mass/volume)on 05-09-2021 Hemoglobin (Bld) [Mass/Vol] 12.9 g/dL 13.0-16.5 [facility] Work Phone: [phone] Blood platelet mean volumeon 05-09-2021 Platelet mean volume (Bld) [Entitic vol] 8.9 fL 6.2-12.0 [facility] Work Phone: [phone] Determination of erythrocyte mean corpuscular volume (MCV)on 05-09-2021 MCV (RBC) [Entitic vol] 94.4 fL 80-94 [facility] Work Phone: Hematocrit Auto (Bld) [Volum e fraction]on 05-09-2021 Hematocrit (Bld) [Volume fraction] 37.2 % 40-54 [facility] Work Phone: [phone] Laboratory - Chemistry and C hemistry - challengeon 05-09-2021 CO2 [Moles/Vol] 31.0 mmol/L 21.0-32.0 [facility] Work Phone: [phone] Urea nitrogen/Creatinine [Mass ratio] 17.0 mg/mg 10-20 [facility] Work Phone: [phone] Laboratory - Hematology and Cell countson 05-09-2021 Erythrocyte distribution width (RBC) [Entitic vol] 46.9 fL 35.1-43.9 [facility] Work Phone: [phone] Erythrocyte distribution width (RBC) [Ratio] 13.6 % 11.6-14.6 [facility] Work Phone: [phone] MCH (RBC) [Entitic mass] 32.7 pg 27.0-32.0 [facility] Work Phone: [phone] MCHC Auto (RBC) [Mass/Vol]on 05-09-2021 MCHC (RBC) [Mass/Vol] 34.7 g/dL 32-36 [facility] Work Phone: No Panel Informationon 05-09 Estimated GFR (MDRD) Amer 95 mL/min >60 [facility] Work Phone: Comment on above: GFR Calc Estimated GFR (MDRD) Non-Af Amer 78 mL/min >60 [facility] Work Phone: [phone] Comment on above: Non- GFR Calc Prostate Specific Antigen Total 0.69 ng/mL 0.0-4.0 [facility] Work Phone: Comment on above: This test was perfor med using the TPSA assay method [facility]. Values obtained with differentassay methods cannot be used interchangably.When changing PSA assays in the course of monitoring apatient, additional sequential testing should be carriedout to confirm baseline values. Platelets bldon 05-09-2021 Platelets (Bld) [#/Vol] 178 10*3/uL 150-450 [facility] Work Phone: Serum or plasma calcium remington urement (mass/volume)on 05-09-2021 Calcium [Mass/Vol] 9.4 mg/dL 8.5-10.1 [facility] Work Phone: Serum or plasma creatinine m easurement (mass/volume)on 05-09-2021 Creatinine [Mass/Vol] 1.00 mg/dL 0.70-1.30 [facility] Work Phone: Comment on above: The validity of the calculated GFR & GFRAA in patients over 70 years has not been determined. Clinical correlation is essential. Serum or plasma urea nitroge n measurement (mass/volume)on 05-09-2021 Urea nitrogen [Mass/Vol] 17 mg/dL 7-18 [facility] Work Phone: Thin prep Papanicolaou smear with manual screeningon 05-09-2021 Thin prep Papanicolaou smear with manual screening 3 5-15 [facility] Work Phone: Clinical Summary: PrashanthChristiano kathy 04-22-2021 MC75 OP Visit Invalid Interpretation Code [facility] Work Phone: Office Visit: New/Est - 1st visit with physician, Rm: 2204-22-2021 NEGATED: Highlighted rowbone scan history on 11/01/2020 at [facility] Endocrinology Invalid Interpretation Code [facility] Work Phone: NEGATED: Highlighted rowCT scan history of the Lumbar without contrast on 11/09/2020 at [facility] Invalid Interpretation Code [facility] Work Phone: Clinical Summary: Outcome Chavez mmaryon 04-21-2021 Oswestry Pain Disability Index score 16 Invalid Interpretation Code [facility] Work Phone: pain affects sex life (Oswestry Pain Disability Index) 0 Invalid Interpretation Code [facility] Work Phone: pain affects sleeping (Oswestry Pain Disability Index) 0 Invalid Interpretation Code [facility] Work Phone: pain affects social life (Oswestry Pain Disability Index) 0 Invalid Interpretation Code [facility] Work Phone: pain intensity (Oswestry Pain Disability Index) 1 Invalid Interpretation Code [facility] Work Phone: pain when traveling (Oswestry Pain Disability Index) 1 Invalid Interpretation Code [facility] Work Phone: pain when walking (Oswestry Pain Disability Index) 0 Invalid Interpretation Code [facility] Work Phone: pain while sitting (Oswestry Pain Disability Index) 2 Invalid Interpretation Code [facility] Work Phone: pain while standing (Oswestry Pain Disability Index) 0 Invalid Interpretation Code [facility] Work Phone: pain with lifting (Oswestry Pain Disability Index) 3 Invalid Interpretation Code [facility] Work Phone: pain with personal care (Oswestry Pain Disability Index) 1 Invalid Interpretation Code [facility] Work Phone: diagnostic criteria for SLE #1 2 Invalid Interpretation Code [facility] Work Phone: diagnostic criteria for SLE #10 4 Invalid Interpretation Code [facility] Work Phone: diagnostic criteria for SLE #11 9 Invalid Interpretation Code [facility] Work Phone: diagnostic criteria for SLE #12 16 Invalid Interpretation Code [facility] Work Phone: diagnostic criteria for SLE #13 32.4 Invalid Interpretation Code [facility] Work Phone: diagnostic criteria for SLE #14 53.3 Invalid Interpretation Code [facility] Work Phone: diagnostic criteria for SLE #15 [phone] Invalid Interpretation Code [facility] Work Phone: diagnostic criteria for SLE #2 2 Invalid Interpretation Code [facility] Work Phone: diagnostic criteria for SLE #3 2 Invalid Interpretation Code [facility] Work Phone: diagnostic criteria for SLE #4 4 Invalid Interpretation Code [facility] Work Phone: diagnostic criteria for SLE #5 5 Invalid Interpretation Code [facility] Work Phone: diagnostic criteria for SLE #6 4 Invalid Interpretation Code [facility] Work Phone: diagnostic criteria for SLE #7 4 Invalid Interpretation Code [facility] Work Phone: diagnostic criteria for SLE #8 5 Invalid Interpretation Code [facility] Work Phone: diagnostic criteria for SLE #9 3 Invalid Interpretation Code [facility] Work Phone: Clinical Summary: Odilon [facility] Summaryon 04-18-2021 Data entered by patient exercise frequency 4 days per week Invalid Interpretation Code [facility] Work Phone: Data entered by patient exercise type walking, strength training, yoga Invalid Interpretation Code [facility] Work Phone: data entered by patient, alcohol (ethanol or ETOH) use No Invalid Interpretation Code [facility] Work Phone: Data entered by patient, allergy list Penicillin Animals Plant pollens (Hay Fever) Eggs Dairy Invalid Interpretation Code [facility] Work Phone: data entered by patient, drug (of abuse) use No Invalid Interpretation Code [facility] Work Phone: data entered by patient, Employer Name employed Invalid Interpretation Code [facility] Work Phone: data entered by patient, exercise history Yes Invalid Interpretation Code [facility] Work Phone: data entered by patient, father's medical history Cancer Heart disease Invalid Interpretation Code [facility] Work Phone: Data entered by patient, history of past surgeries Cataract surgery Fracture repair Knee surgery other Invalid Interpretation Code [facility] Work Phone: data entered by patient, mother's medical history Diabetes - non-insulin dependent High blood pressure Stroke/TIA Invalid Interpretation Code [facility] Work Phone: data entered by patient, past medical history Fractures GERD Gout High blood pressure Obstructive sleep apnea Osteoporosis Invalid Interpretation Code [facility] Work Phone: data entered by patient, 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, current smoker never smoker Invalid Interpretation Code [facility] Work Phone: data entered by patient, 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, marital status Invalid Interpretation Code [facility] Work Phone: data entered by patient, 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, 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 Interpretation Code [facility] Work Phone: Housing Type: apartment, house, custodial, trailer, none house Invalid Interpretation Code [facility] Work Phone: housing unit size (asthma environmental history, housing) (from single family to don't know) 1 floor Invalid Interpretation Code [facility] Work Phone: Number of dependent children No Invalid Interpretation Code [facility] Work Phone: Basophil percentageon 2021 Bilirubin [Mass/Vol] 0.70 mg/dL 0.20-1.00 [facility] Work Phone: Comment on above: For patients on eltr ombopag therapy, use of Dimension [place] TBIL is not recommended. Chloride [Moles/Vol] 100 mmol/L 98-107 [facility] Work Phone: Glucose [Mass/Vol] 96 mg/dL 74-106 [facility] Work Phone: Potassium [Moles/Vol] 3.7 mmol/L 3.5-5.1 [facility] Work Phone: Protein [Mass/Vol] 6.9 g/dL 6.4-8.2 [facility] Work Phone: Sodium [Moles/Vol] 137 mmol/L 136-145 [facility] Work Phone: Iron measurement (mass/mass) on 03-22-2021 Iron (Unsp spec) [Mass/Mass] 48 ug/dL 65-175 [facility] Work Phone: Laboratory - Chemistry and C hemistry - challengeon 03-22-2021 ALP [Catalytic activity/Vol] 64 U/L 45-117 [facility] Work Phone: ALT [Catalytic activity/Vol] 28 U/L 16-61 [facility] Work Phone: CO2 [Moles/Vol] 32.0 mmol/L 21.0-32.0 [facility] Work Phone: Cobalamin (Vitamin B12) [Mass/Vol] 262 pg/mL 211-911 [facility] Work Phone: Globulin (S) [Mass/Vol] 3.1 g/dL 2.2-4.2 [facility] Work Phone: Urea nitrogen/Creatinine [Mass ratio] 22.3 mg/mg 10-20 [facility] Work Phone: No Panel Informationon 03-22 Estimated GFR (MDRD) Amer 92 mL/min >60 [facility] Work Phone: Comment on above: GFR Calc Estimated GFR (MDRD) Non-Af Amer 76 mL/min >60 [facility] Work Phone: Comment on above: Non- GFR Calc Thyroid Stimulating Hormone (TSH) 1.35 uIU/mL 0.358-3.74 [facility] Work Phone: [phone] Serum or plasma albumin remington urement (mass/volume)on 03-22-2021 Albumin [Mass/Vol] 3.8 g/dL 3.2-5.0 [facility] Work Phone: [phone] Serum or plasma albumin/glob ulin mass ratioon 03-22-2021 Albumin/Globulin [Mass ratio] 1.2 {ratio} 0.9-2.4 [facility] Work Phone: [phone] Serum or plasma calcium remington urement (mass/volume)on 03-22-2021 Calcium [Mass/Vol] 9.4 mg/dL 8.5-10.1 [facility] Work Phone: [phone] Serum or plasma creatinine m easurement (mass/volume)on 03-22-2021 Creatinine [Mass/Vol] 1.03 mg/dL 0.70-1.30 [facility] Work Phone: Comment on above: The validity of the calculated GFR & GFRAA in patients over 70 years has not been determined. Clinical correlation is essential. Serum or plasma ferritin katelyn surement (mass/volume)on 03-22-2021 Ferritin [Mass/Vol] 267 ng/mL 26-388 [facility] Work Phone: [phone] Serum or plasma folate measu rement (mass/volume)on 03-22-2021 Folate [Mass/Vol] 9.20 ng/mL 3.1-55.4 [facility] Work Phone: [phone] Serum or plasma urea nitroge n measurement (mass/volume)on 03-22-2021 Urea nitrogen [Mass/Vol] 23 mg/dL 7-18 [facility] Work Phone: [phone] Thin prep Papanicolaou smear with manual screeningon 03-22-2021 Thin prep Papanicolaou smear with manual screening 23 U/L 15-37 [facility] Work Phone: [phone] Thin prep Papanicolaou smear with manual screening 5 5-15 [facility] Work Phone: [phone] Basophil percentageon 2021 Bilirubin [Mass/Vol] 0.80 mg/dL 0.20-1.00 [facility] Work Phone: [phone] Comment on above: For patients on eltr ombopag therapy, use of Dimension [place] TBIL is not recommended. Cholesterol [Mass/Vol] 249 mg/dL <200 [facility] Work Phone: [phone] Comment on above: <200 mg/dL Desirable 200-240 mg/dL Borderline >240 mg/dL High Risk Protein [Mass/Vol] 7.1 g/dL 6.4-8.2 [facility] Work Phone: [phone] Triglyceride [Mass/Vol] 170 mg/dL [facility] Work Phone: [phone] Comment on above: The drugs N-Acetylcy steine and Metamizole may falsely depress this assay.Serum Triglycerides Reference Interval Normal <150 mg/dL Borderline high 150 - 199 mg/dL High 200 - 499 mg/dL Very High > or = 500 mg/dL Direct bilirubinon Bilirubin.direct [Mass/Vol] 0.15 mg/dL 0.00-0.30 [facility] Work Phone: [phone] Laboratory - Chemistry and C hemistry - challengeon 03-01-2021 ALP [Catalytic activity/Vol] 62 U/L 45-117 [facility] Work Phone: [phone] ALT [Catalytic activity/Vol] 29 U/L 16-61 [facility] Work Phone: [phone] Globulin (S) [Mass/Vol] 3.2 g/dL 2.2-4.2 [facility] Work Phone: [phone] Serum or plasma albumin remington urement (mass/volume)on 03-01-2021 Albumin [Mass/Vol] 3.9 g/dL 3.2-5.0 [facility] Work Phone: [phone] Serum or plasma cholesterol in HDL measurement (mass/volume)on 03-01-2021 Cholesterol in HDL [Mass/Vol] 44 mg/dL [facility] Work Phone: Comment on above: The drugs N-Acetylcy steine and Metamizole may falsely depress this assay. Reference Range HDL <40 mg/dL Low HDL Cholesterol HDL >or= 60 mg/dL High HDL Cholesterol Serum or plasma cholesterol in VLDL measurement (mass/volume)on 03-01-2021 Cholesterol in VLDL [Mass/Vol] 34 mg/dL 5-40 [facility] Work Phone: Serum or plasma low density lipoprotein (LDL) cholesterol measurement (mass/volume)on 03-01-2021 Cholesterol in LDL [Mass/Vol] 171 mg/dL 0-130 [facility] Work Phone: Thin prep Papanicolaou smear with manual screeningon 03-01-2021 Thin prep Papanicolaou smear with manual screening 22 U/L 15-37 [facility] Work Phone: Vital Signs Date Time Vital Sign Value Performing Clinician Facility 04-01-2024 13:00-0500 Diastolic blood pressure 68 mm[Hg] Dominic Gonzalez MD Work Phone: [facility] 04-01-2024 13:00-0500 Heart rate 62 /min Dominic Gonzalez MD Work Phone: [facility] 04-01-2024 13:00-0500 Respiratory rate 16 /min Dominic Gonzalez MD Work Phone: [facility] 04-01-2024 13:00-0500 SaO2% (BldA) [Mass fraction] 99 % Dominic Gonzalez MD Work Phone: [facility] 04-01-2024 13:00-0500 Systolic blood pressure 105 mm[Hg] Dominic Gonzalez MD Work Phone: [facility] 04-01-2024 10:51-0500 Body mass index (BMI) [Ratio] 28.85 kg/m2 Dominic Gonzalez MD Work Phone: [facility] 04-01-2024 10:51-0500 Body temperature 97.5 [degF] Dominic Gonzalez MD Work Phone: [facility] 04-01-2024 10:51-0500 Body weight 91.2 kg Dominic Gonzalez MD Work Phone: [facility] 03-25-2024 12:48-0500 Body height 177.8 cm Connie Zeus [employer] Work Phone: [facility] 03-25-2024 12:48-0500 Body mass index (BMI) [Ratio] 28.84 kg/m2 Connie Zeus [employer] Work Phone: [facility] 03-25-2024 12:48-0500 Body weight 91.17 kg Connie Zeus [employer] Work Phone: [facility] 03-25-2024 12:48-0500 Diastolic blood pressure 72 mm[Hg] Connie Zeus [employer] Work Phone: [facility] 03-25-2024 12:48-0500 Heart rate 58 /min Connie Zeus [employer] Work Phone: [facility] 03-25-2024 12:48-0500 SaO2% (BldA) [Mass fraction] 98 % Connie Zeus [employer] Work Phone: [facility] 03-25-2024 12:48-0500 Systolic blood pressure 111 mm[Hg] Connie Zeus [employer] Work Phone: [facility] 11-26-2023 11:16-0400 Body height 177.8 cm Ruth Sullivan MD Work Phone: [facility] 11-26-2023 11:16-0400 Body mass index (BMI) [Ratio] 27.55 kg/m2 Ruth Sullivan MD Work Phone: [facility] 11-26-2023 11:16-0400 Body weight 87.09 kg Ruth Sullivan MD Work Phone: [facility] 11-26-2023 11:16-0400 Diastolic blood pressure 60 mm[Hg] Ruth Sullivan MD Work Phone: [facility] 11-26-2023 11:16-0400 Heart rate 65 /min Ruth Sullivan MD Work Phone: [facility] 11-26-2023 11:16-0400 Systolic blood pressure 122 mm[Hg] Ruth Sullivan MD Work Phone: [facility] 09-24-2023 14:05-0400 Diastolic blood pressure 67 mm[Hg] Ruth Sullivan MD Work Phone: [facility] 09-24-2023 14:05-0400 Heart rate 54 /min Ruth Sullivan MD Work Phone: [facility] 09-24-2023 14:05-0400 Respiratory rate 15 /min Ruth Sullivan MD Work Phone: [facility] 09-24-2023 14:05-0400 SaO2% (BldA) [Mass fraction] 100 % Ruth Sullivan MD Work Phone: [facility] 09-24-2023 14:05-0400 Systolic blood pressure 128 mm[Hg] Ruth Sullivan MD Work Phone: [facility] 09-24-2023 13:47-0400 Body temperature 97.39 [degF] Ruth Sullivan MD Work Phone: [facility] 08-28-2023 13:17-0400 Body height 177.8 cm Ruth Sullivan MD Work Phone: [facility] 08-28-2023 13:17-0400 Body mass index (BMI) [Ratio] 26.54 kg/m2 Ruth Sullivan MD Work Phone: [facility] 08-28-2023 13:17-0400 Body weight 83.92 kg Ruth Sullivan MD Work Phone: [facility] 05-05-2023 14:51-0400 Body height 177.8 cm Pst 1 [facility] 05-05-2023 14:51-0400 Body temperature 98.2 [degF] Pst 1 [facility] 05-05-2023 14:51-0400 Body weight 91.63 kg Pst 1 [facility] 05-05-2023 14:51-0400 Diastolic blood pressure 73 mm[Hg] Pst 1 [facility] 05-05-2023 14:51-0400 Heart rate 68 /min Pst 1 [facility] 05-05-2023 14:51-0400 Respiratory rate 16 /min Pst 1 [facility] 05-05-2023 14:51-0400 SaO2% (BldA) [Mass fraction] 97 % Pst 1 [facility] 05-05-2023 14:51-0400 Systolic blood pressure 120 mm[Hg] Pst 1 [facility] 05-01-2023 18:02-0400 Body temperature 96.8 [degF] Dr. Ana Casiano Work Phone: [facility] 05-01-2023 18:02-0400 Diastolic blood pressure 79 mm[Hg] Dr. Ana Casiano Work Phone: [facility] 05-01-2023 18:02-0400 Heart rate 60 /min Dr. Ana Casiano Work Phone: [facility] 05-01-2023 18:02-0400 Respiratory rate 16 /min Dr. Ana Casiano Work Phone: [facility] 05-01-2023 18:02-0400 SaO2% (BldA) [Mass fraction] 98 % Dr. Ana Casiano Work Phone: [facility] 05-01-2023 18:02-0400 Systolic blood pressure 120 mm[Hg] Dr. Ana Casiano Work Phone: [facility] 05-01-2023 14:32-0400 Body height 177.[address] Ana Casiano Work Phone: [facility] 05-01-2023 14:32-0400 Body mass index (BMI) [Ratio] 29.1 kg/m2 Dr. Ana Casiano Work Phone: [facility] 05-01-2023 14:32-0400 Body weight 92.[address] Ana Casiano Work Phone: [facility] 04-20-2023 08:00-0400 Diastolic blood pressure 71 mm[Hg] Pantera Gallegos PT Work Phone: [facility] 04-20-2023 08:00-0400 Heart rate 60 /min Pantera Golias PT Work Phone: [facility] 04-20-2023 08:00-0400 Systolic blood pressure 120 mm[Hg] Pantera Golias PT Work Phone: [facility] 04-02-2023 08:27-0500 Body height 177.8 cm Ruth Sullivan MD Work Phone: [facility] 04-02-2023 08:27-0500 Body weight 90.27 kg Ruth Sullivan MD Work Phone: [facility] 04-02-2023 08:27-0500 Diastolic blood pressure 68 mm[Hg] Ruth Sullivan MD Work Phone: [facility] 04-02-2023 08:27-0500 Heart rate 67 /min Ruth Sullivan MD Work Phone: [facility] 04-02-2023 08:27-0500 Systolic blood pressure 110 mm[Hg] Ruth Sullivan MD Work Phone: [facility] 03-30-2023 10:36-0500 Body height 177.8 cm Alpa Boozer [employer] Work Phone: [facility] 03-30-2023 10:36-0500 Body weight 88.91 kg Alpa Boozer [employer] Work Phone: [facility] 03-30-2023 10:36-0500 Diastolic blood pressure 75 mm[Hg] Alpa Boozer [employer] Work Phone: [facility] 03-30-2023 10:36-0500 Heart rate 65 /min Alpa Boozer [employer] Work Phone: [facility] 03-30-2023 10:36-0500 Respiratory rate 18 /min Alpa Boozer [employer] Work Phone: [facility] 03-30-2023 10:36-0500 SaO2% (BldA) [Mass fraction] 98 % Alpa Pearson APRN.[employer] Work Phone: [facility] 03-30-2023 10:36-0500 Systolic blood pressure 113 mm[Hg] Alpa Pearson APRN.[employer] Work Phone: [facility] 03-23-2023 08:23-0500 Body height 177.[address] Ana Casiano Work Phone: [facility] 03-23-2023 08:23-0500 Body mass index (BMI) [Ratio] 28.8 kg/m2 Dr. Ana Casiano Work Phone: [facility] 03-23-2023 08:23-0500 Body weight 91.[address] Ana Casiano Work Phone: [facility] 03-23-2023 08:23-0500 Diastolic blood pressure 71 mm[Hg] Dr. Ana Casiano Work Phone: [facility] 03-23-2023 08:23-0500 Heart rate 63 /min Dr. Ana Casiano Work Phone: [facility] 03-23-2023 08:23-0500 Respiratory rate 18 /min Dr. Ana Casiano Work Phone: [facility] 03-23-2023 08:23-0500 SaO2% (BldA) [Mass fraction] 97 % Dr. Ana Casiano Work Phone: [facility] 03-23-2023 08:23-0500 Systolic blood pressure 116 mm[Hg] Dr. Ana Casiano Work Phone: [facility] 02-24-2023 08:24-0500 Body height 177.[address] Ana Casiano Work Phone: [facility] 02-24-2023 08:24-0500 Body mass index (BMI) [Ratio] 29.5 kg/m2 Dr. Ana Casiano Work Phone: [facility] 02-24-2023 08:24-0500 Body temperature 97.3 [degF] Dr. Ana Casiano Work Phone: [facility] 02-24-2023 08:24-0500 Body weight 93.[address] Ana Casiano Work Phone: [facility] 02-24-2023 08:24-0500 Diastolic blood pressure 72 mm[Hg] Dr. Ana Casiano Work Phone: [facility] 02-24-2023 08:24-0500 Heart rate 63 /min Dr. Ana Casiano Work Phone: [facility] 02-24-2023 08:24-0500 Respiratory rate 20 /min Dr. Ana Casiano Work Phone: [facility] 02-24-2023 08:24-0500 SaO2% (BldA) [Mass fraction] 98 % Dr. Ana Casiano Work Phone: [facility] 02-24-2023 08:24-0500 Systolic blood pressure 107 mm[Hg] Dr. Ana Casiano Work Phone: [facility] 02-13-2023 21:44-0500 Diastolic blood pressure 79 mm[Hg] Dr. Ana Casiano Work Phone: [facility] 02-13-2023 21:44-0500 Heart rate 85 /min Dr. Ana Casiano Work Phone: [facility] 02-13-2023 21:44-0500 Respiratory rate 18 /min Dr. Ana Casiano Work Phone: [facility] 02-13-2023 21:44-0500 SaO2% (BldA) [Mass fraction] 94 % Dr. Ana Casiano Work Phone: [facility] 02-13-2023 21:44-0500 Systolic blood pressure 125 mm[Hg] Dr. Ana Casiano Work Phone: [facility] 02-13-2023 17:16-0500 Body mass index (BMI) [Ratio] 28.6 kg/m2 Dr. Ana Casiano Work Phone: [facility] 02-13-2023 17:16-0500 Body temperature 98.9 [degF] Dr. Ana Casiano Work Phone: [facility] 02-13-2023 17:16-0500 Body weight 90.[address] Ana Casiano Work Phone: [facility] 02-12-2023 10:22-0500 Heart rate 67 /min Dr. Ana Casiano Work Phone: [facility] 02-12-2023 10:22-0500 Respiratory rate 17 /min Dr. Ana Casiano Work Phone: [phone] 02-12-2023 09:48-0500 Body temperature 98.1 [degF] Dr. Ana Casiano Work Phone: [phone] [address] 02-12-2023 09:48-0500 Diastolic blood pressure 63 mm[Hg] Dr. Ana Casiano Work Phone: [phone] [place] [address] 02-12-2023 09:48-0500 SaO2% (BldA) [Mass fraction] 97 % Dr. Ana Casiano Work Phone: 3(167)[phone] [place] [address] 02-12-2023 09:48-0500 Systolic blood pressure 96 mm[Hg] Dr. Ana Casiano Work Phone: 7(263)[phone] [place] [address] 02-12-2023 09:47-0500 Body height 177.[address] Ana Casiano Work Phone: [facility] 02-12-2023 09:47-0500 Body mass index (BMI) [Ratio] 29.4 kg/m2 Dr. Ana Casiano Work Phone: 3(642)762-759444 [place] [address] 02-12-2023 09:47-0500 Body weight 92.[address] Ana Casiano Work Phone: [facility] 02-08-2023 19:46-0500 Body height 177.[address] Ana Casiano Work Phone: [facility] 02-08-2023 19:46-0500 Body mass index (BMI) [Ratio] 30.2 kg/m2 Dr. Ana Casiano Work Phone: [facility] 02-08-2023 19:46-0500 Body temperature 97.3 [degF] Dr. Ana Casiano Work Phone: [facility] 02-08-2023 19:46-0500 Body weight 95.[address] Ana Casiano Work Phone: [facility] 02-08-2023 19:46-0500 Diastolic blood pressure 68 mm[Hg] Dr. Ana Casiano Work Phone: [facility] 02-08-2023 19:46-0500 Heart rate 72 /min Dr. Ana Casiano Work Phone: [facility] 02-08-2023 19:46-0500 Respiratory rate 15 /min Dr. Ana Casiano Work Phone: [facility] 02-08-2023 19:46-0500 SaO2% (BldA) [Mass fraction] 97 % Dr. Ana Casiano Work Phone: [facility] 02-08-2023 19:46-0500 Systolic blood pressure 104 mm[Hg] Dr. Ana Casiano Work Phone: [facility] 01-14-2023 18:55-0500 Body height 177.[address] Ana Casiano Work Phone: [facility] 01-14-2023 18:55-0500 Body mass index (BMI) [Ratio] 30.5 kg/m2 Dr. Ana Casiano Work Phone: [facility] 01-14-2023 18:55-0500 Body temperature 98 [degF] Dr. Ana Casiano Work Phone: [facility] 01-14-2023 18:55-0500 Body weight 96.[address] Ana Casiano Work Phone: [facility] 01-14-2023 18:55-0500 Diastolic blood pressure 78 mm[Hg] Dr. Ana Casiano Work Phone: [facility] 01-14-2023 18:55-0500 Heart rate 97 /min Dr. Ana Casiano Work Phone: [facility] 01-14-2023 18:55-0500 Respiratory rate 16 /min Dr. Ana Casiano Work Phone: [facility] 01-14-2023 18:55-0500 SaO2% (BldA) [Mass fraction] 98 % Dr. Ana Casiano Work Phone: [facility] 01-14-2023 18:55-0500 Systolic blood pressure 125 mm[Hg] Dr. Ana Casiano Work Phone: [facility] 12-22-2022 11:25-0500 Body temperature 97.8 [degF] Dr. Ana Casiano Work Phone: [facility] 12-22-2022 11:25-0500 Diastolic blood pressure 68 mm[Hg] Dr. Ana Casiano Work Phone: [facility] 12-22-2022 11:25-0500 Heart rate 55 /min Dr. Ana Casiano Work Phone: [facility] 12-22-2022 11:25-0500 Respiratory rate 16 /min Dr. Ana Casiano Work Phone: [facility] 12-22-2022 11:25-0500 SaO2% (BldA) [Mass fraction] 99 % Dr. Ana Casiano Work Phone: [facility] 12-22-2022 11:25-0500 Systolic blood pressure 91 mm[Hg] Dr. Ana Casiano Work Phone: [facility] 12-22-2022 09:29-0500 Body height 172.[address] Ana Casiano Work Phone: [facility] 12-22-2022 09:29-0500 Body mass index (BMI) [Ratio] 31.9 kg/m2 Dr. Ana Casiano Work Phone: 6(880)425-105559 [place] [address] 12-22-2022 09:29-0500 Body weight 95.[address] Ana Casiano Work Phone: [facility] 12-05-2022 08:12-0400 Body mass index (BMI) [Ratio] 30.1 kg/m2 Dr. Ana Casiano Work Phone: [facility] 12-05-2022 08:12-0400 Body weight 95.[address] Ana Casiano Work Phone: [facility] 12-05-2022 08:12-0400 Diastolic blood pressure 72 mm[Hg] Dr. Ana Casiano Work Phone: 4(292)889-519144 [place] [address] 12-05-2022 08:12-0400 Heart rate 69 /min Dr. Ana Casiano Work Phone: 6(004)722-041544 [place] [address] 12-05-2022 08:12-0400 Respiratory rate 18 /min Dr. Ana Casiano Work Phone: 6(118)414-646044 [place] [address] 12-05-2022 08:12-0400 SaO2% (BldA) [Mass fraction] 97 % Dr. Ana Casiano Work Phone: 8(092)434-083944 [place] [address] 12-05-2022 08:12-0400 Systolic blood pressure 107 mm[Hg] Dr. Ana Casiano Work Phone: [facility] 11-19-2022 13:26-0400 Body height 177.[address] Ana Casiano Work Phone: [facility] 11-19-2022 13:26-0400 Body mass index (BMI) [Ratio] 31 kg/m2 Dr. Ana Casiano Work Phone: [facility] 11-19-2022 13:26-0400 Body temperature 98 [degF] Dr. Ana Casiano Work Phone: [facility] 11-19-2022 13:26-0400 Body weight 98.[address] Ana Casiano Work Phone: [facility] 11-19-2022 13:26-0400 Diastolic blood pressure 72 mm[Hg] Dr. Ana Casiano Work Phone: [facility] 11-19-2022 13:26-0400 Heart rate 67 /min Dr. Ana Casinao Work Phone: [facility] 11-19-2022 13:26-0400 Respiratory rate 16 /min Dr. Ana Casiano Work Phone: [facility] 11-19-2022 13:26-0400 SaO2% (BldA) [Mass fraction] 94 % Dr. Ana Casiano Work Phone: [facility] 11-19-2022 13:26-0400 Systolic blood pressure 128 mm[Hg] Dr. Ana Casiano Work Phone: 5(678)033-532956 [address] 05-16-2022 13:24-0400 Body temperature 97.4 [degF] Dr. Ana Casiano Work Phone: 0(708)637-351956 [address] 05-16-2022 13:24-0400 Diastolic blood pressure 68 mm[Hg] Dr. Ana Casiano Work Phone: 0(913)324-501456 [address] 05-16-2022 13:24-0400 Heart rate 52 /min Dr. Ana Casiano Work Phone: [facility] 05-16-2022 13:24-0400 Respiratory rate 16 /min Dr. Ana Casiano Work Phone: [facility] 05-16-2022 13:24-0400 SaO2% (BldA) [Mass fraction] 100 % Dr. Ana Casiano Work Phone: [facility] 05-16-2022 13:24-0400 Systolic blood pressure 106 mm[Hg] Dr. Ana Casiano Work Phone: [facility] 05-16-2022 12:41-0400 Body height 177.[address] Ana Casiano Work Phone: [facility] 05-16-2022 12:41-0400 Body mass index (BMI) [Ratio] 29.4 kg/m2 Dr. Ana Casiano Work Phone: [facility] 05-16-2022 12:41-0400 Body weight 92.[address] Ana Casiano Work Phone: [facility] 05-12-2022 08:47-0400 Body height 177.[address] Ana Casiano Work Phone: 9(733)867-113356 [address] 05-12-2022 08:45-0400 Body mass index (BMI) [Ratio] 30.7 kg/m2 Dr. Ana Casiano Work Phone: [facility] 05-12-2022 08:45-0400 Body weight 97.[address] Ana Casiano Work Phone: 2(378)870-502123 [place] [address] 05-12-2022 08:45-0400 Diastolic blood pressure 75 mm[Hg] Dr. Ana Casiano Work Phone: 3(936)969-538023 [place] [address] 05-12-2022 08:45-0400 Heart rate 62 /min Dr. Ana Casiano Work Phone: 5(829)458-755944 [place] [address] 05-12-2022 08:45-0400 Respiratory rate 18 /min Dr. Ana Casiano Work Phone: 6(658)113-963656 [address] 05-12-2022 08:45-0400 SaO2% (BldA) [Mass fraction] 97 % Dr. Ana Casiano Work Phone: 5(397)212-632744 [place] [address] 05-12-2022 08:45-0400 Systolic blood pressure 118 mm[Hg] Dr. Ana Casiano Work Phone: [facility] 02-13-2022 10:39-0500 Body height 177.[address] Ana Casiano Work Phone: 4(336)609-357944 [place] [address] 02-13-2022 10:39-0500 Body mass index (BMI) [Ratio] 31.8 kg/m2 Dr. Ana Casiano Work Phone: [facility] 02-13-2022 10:39-0500 Body weight 100.[address] Ana Casiano Work Phone: [facility] 02-13-2022 10:39-0500 Diastolic blood pressure 78 mm[Hg] Dr. Ana Casiano Work Phone: [facility] 02-13-2022 10:39-0500 Heart rate 64 /min Dr. Ana Casiano Work Phone: [facility] 02-13-2022 10:39-0500 Respiratory rate 16 /min Dr. Ana Casiano Work Phone: [facility] 02-13-2022 10:39-0500 SaO2% (BldA) [Mass fraction] 99 % Dr. Ana Casiaon Work Phone: [facility] 02-13-2022 10:39-0500 Systolic blood pressure 138 mm[Hg] Dr. Ana Casiano Work Phone: [facility] 02-10-2022 11:39-0500 Diastolic blood pressure 79 mm[Hg] Dr. Ana Casiano Work Phone: [facility] 02-10-2022 11:39-0500 Heart rate 78 /min Dr. Ana Casiano Work Phone: [facility] 02-10-2022 11:39-0500 Respiratory rate 16 /min Dr. Ana Casiano Work Phone: [facility] 02-10-2022 11:39-0500 SaO2% (BldA) [Mass fraction] 98 % Dr. Ana Casiano Work Phone: [facility] 02-10-2022 11:39-0500 Systolic blood pressure 134 mm[Hg] Dr. Ana Casiano Work Phone: [facility] 02-10-2022 08:15-0500 Body height 177.[address] Ana Casiano Work Phone: [facility] Work Phone: 02-10-2022 08:15-0500 Body mass index (BMI) [Ratio] 30.5 kg/m2 Dr. Ana Casiano Work Phone: [facility] 02-10-2022 08:15-0500 Body temperature 96.6 [degF] Dr. Ana Casiano Work Phone: [facility] 02-10-2022 08:15-0500 Body weight 96.[address] Ana Casiano Work Phone: [facility] 12-18-2021 16:43-0500 Diastolic blood pressure 74 mm[Hg] Dr. Ana Casiano Work Phone: [facility] 12-18-2021 16:43-0500 Heart rate 55 /min Dr. Ana Casiano Work Phone: [facility] 12-18-2021 16:43-0500 Respiratory rate 16 /min Dr. Ana Casiano Work Phone: [facility] 12-18-2021 16:43-0500 SaO2% (BldA) [Mass fraction] 96 % Dr. Ana Casiano Work Phone: [facility] 12-18-2021 16:43-0500 Systolic blood pressure 113 mm[Hg] Dr. Ana Casiano Work Phone: [facility] 12-18-2021 15:49-0500 Body height 177.[address] Aan Casiano Work Phone: [facility] Work Phone: 12-18-2021 15:49-0500 Body mass index (BMI) [Ratio] 29.4 kg/m2 Dr. Ana Casiano Work Phone: [facility] 12-18-2021 15:49-0500 Body temperature 98.2 [degF] Dr. Ana Casiano Work Phone: [facility] 12-18-2021 15:49-0500 Body weight 92.[address] Ana Casiano Work Phone: [facility] 07-03-2021 15:44-0400 Body temperature 97.4 [degF] Dr. Ana Casiano Work Phone: [facility] Work Phone: 07-03-2021 15:44-0400 Diastolic blood pressure 59 mm[Hg] Dr. Ana Casiano Work Phone: [facility] Work Phone: 07-03-2021 15:44-0400 Heart rate 64 /min Dr. Ana Casiano Work Phone: [facility] Work Phone: 07-03-2021 15:44-0400 Respiratory rate 16 /min Dr. Ana Casiano Work Phone: [facility] Work Phone: 07-03-2021 15:44-0400 SaO2% (BldA) [Mass fraction] 98 % Dr. Ana Casiano Work Phone: [facility] Work Phone: 07-03-2021 15:44-0400 Systolic blood pressure 96 mm[Hg] Dr. Ana Casiano Work Phone: [facility] Work Phone: 07-03-2021 14:20-0400 Body height 177.[address] Ana Casiano Work Phone: [facility] Work Phone: 07-03-2021 14:20-0400 Body mass index (BMI) [Ratio] 28.4 kg/m2 Dr. Ana Casiano Work Phone: [facility] Work Phone: 07-03-2021 14:20-0400 Body weight 89.[address] Ana Casiano Work Phone: [facility] Work Phone: 06-14-2021 14:11-0400 Body temperature 98.4 [degF] Dr. Ana Casiano Work Phone: [facility] Work Phone: 06-14-2021 14:11-0400 Diastolic blood pressure 57 mm[Hg] Dr. Ana Casiano Work Phone: [facility] Work Phone: 06-14-2021 14:11-0400 Heart rate 88 /min Dr. Ana Casiano Work Phone: [facility] Work Phone: 06-14-2021 14:11-0400 Respiratory rate 16 /min Dr. Ana Casiano Work Phone: [facility] Work Phone: 06-14-2021 14:11-0400 SaO2% (BldA) [Mass fraction] 96 % Dr. Ana Casiano Work Phone: [facility] Work Phone: 06-14-2021 14:11-0400 Systolic blood pressure 103 mm[Hg] Dr. Ana Casiano Work Phone: [facility] Work Phone: 06-12-2021 10:45-0400 Inhaled oxygen flow rate 4 L/min Dr. Ana Casiano Work Phone: [facility] Work Phone: 06-12-2021 06:33-0400 Body height 177.[address] Ana Casiano Work Phone: [facility] Work Phone: 06-12-2021 06:33-0400 Body mass index (BMI) [Ratio] 28.8 kg/m2 Dr. Ana Casiano Work Phone: [facility] Work Phone: 06-12-2021 06:33-04[address] Body weight [address] Ana Casiano Work Phone: [facility] Work Phone: 03-14-2021 12:04-0500 Body height 177.[address] Ana Casiano Work Phone: [facility] Work Phone: 03-14-2021 12:04-0500 Body mass index (BMI) [Ratio] 29.8 kg/m2 Dr. Ana Casiano Work Phone: [facility] Work Phone: 03-14-2021 12:04-0500 Body weight 94.[address] Ana Casiano Work Phone: [facility] Work Phone: 03-14-2021 12:04-0500 Diastolic blood pressure 51 mm[Hg] Dr. Ana Casiano Work Phone: [facility] Work Phone: 03-14-2021 12:04-0500 Heart rate 57 /min Dr. Ana Casiano Work Phone: [facility] Work Phone: 03-14-2021 12:04-0500 Respiratory rate 16 /min Dr. Ana Casiano Work Phone: [facility] Work Phone: 03-14-2021 12:04-0500 SaO2% (BldA) [Mass fraction] 97 % Dr. Ana Casiano Work Phone: [facility] Work Phone: 03-14-2021 12:04-0500 Systolic blood pressure 96 mm[Hg] Dr. Ana Casiano Work Phone: [facility] Work Phone: 02-27-2021 07:31-0500 Body mass index (BMI) [Ratio] 30.8 kg/m2 Dr. Ana Casiano Work Phone: [facility] Work Phone: 02-27-2021 07:31-0500 Body weight 97.[address] Ana Casiano Work Phone: [facility] Work Phone: 02-27-2021 07:31-0500 Diastolic blood pressure 77 mm[Hg] Dr. Ana Casiano Work Phone: [facility] Work Phone: 02-27-2021 07:31-0500 Heart rate 82 /min Dr. Ana Casiaon Work Phone: [facility] Work Phone: 02-27-2021 07:31-0500 Respiratory rate 16 /min Dr. Ana Casiano Work Phone: [facility] Work Phone: 02-27-2021 07:31-0500 SaO2% (BldA) [Mass fraction] 96 % Dr. Ana Casiano Work Phone: [facility] Work Phone: 02-27-2021 07:31-0500 Systolic blood pressure 107 mm[Hg] Dr. Ana Casiano Work Phone: [facility] Work Phone: NEGATED: Highlighted [id number] 10:34-0400 Body height 177.8 cm Bharati Medina AT [facility] Work Phone: NEGATED: Highlighted [id number] 10:34-0400 Body height 178 cm Bharati Medina AT [facility] Work Phone: NEGATED: Highlighted [id number] 10:34-0400 Body mass index (BMI) [Ratio] 29.23 kg/m2 Bharati Medina AT [facility] Work Phone: NEGATED: Highlighted [id number] 10:34-0400 Body weight 92.08 kg Bharati Kulkarnibach AT [facility] Work Phone: NEGATED: Highlighted [id number] 10:34-0400 Body weight 92 kg Bharati Kulkarnibach AT [facility] Work Phone: NEGATED: Highlighted [id number] 08:46-0400 Body height 177.8 cm Lali Reynolds AT [facility] Work Phone: NEGATED: Highlighted [id number] 08:46-0400 Body height 178 cm Lali Reynolds AT [facility] Work Phone: NEGATED: Highlighted [id number] 08:46-0400 Body mass index (BMI) [Ratio] 29.23 kg/m2 Lali Reynolds AT [facility] Work Phone: NEGATED: Highlighted [id number] 08:46-0400 Body weight 92.08 kg Lali Reynolds AT [facility] Work Phone: NEGATED: Highlighted [id number] 08:46-0400 Body weight 92 kg Lali Reynolds AT [facility] Work Phone: Encounters Encounter Date Encounter Type Care Provider Facility Start: 09-30-2024 ambulatory Ana Forsyth Facility:[facility] Start: 08-19-2024 End: 08-19-2024 Patient encounter procedure Kaiden Gill DO [facility] Work Phone: Start: 08-19-2024 End: 08-19-[address] Ana Casiano MD Work Phone[facility] Start: 06-20-2024 End: 06-20-[address] Ana Casiano MD Work Phone: [facility] Work Phone: Start: 06-20-2024 End: 06-20-[address] Ana Casiano MD -[facility] Work Phone: Start: 06-20-2024 End: 06-20-2024 ambulatory Ana Casiano Facility:[facility] Start: 05-23-2024 End: 05-23-[address] Ana Casiano MD -Monica Muñiz Work Phone: Start: 05-23-2024 End: 05-23-2024 ambulatory Ana Casiano Facility:[facility] Start: 04-08-2024 End: 04-08-2024 Admission to same day surgery center Connie Ambrose APRN.CNP Work Phone: General Surgery Comment on above: Adenomatous rectal p olyp (Primary Dx); Encounter for immunization Start: 04-08-2024 End: 04-08-2024 ambulatory CONNIE AMBROSE Facility:[facility] Start: 04-08-2024 End: 04-08-2024 Telemedicine consultation with patient Connie Ambrose APRN.[employer] Work Phone: General Surgery Start: 04-01-2024 End: 04-01-2024 ambulatory CONNIE AMBROSE Facility:[facility] Start: 04-01-2024 End: 04-01-2024 Subsequent hospital visit by physician Dominic Gonzalez MD Work Phone: Ambulatory Surgery Comment on above: Positive colorectal cancer screening using Cologuard test [R19.5] Start: 03-25-2024 End: 05-04-2024 Telephone encounter Connie Ambrose APRN.[employer] Work Phone: General Surgery Comment on above: 04-01-2024 [facility] Start: 03-25-2024 End: 03-25-2024 ambulatory ANA CASIANO Facility:[facility] Start: 03-25-2024 End: 03-25-2024 Patient encounter procedure Connie Ambrose APRN.[employer] Work Phone: General Surgery Comment on above: Positive colorectal cancer screening using Cologuard test (Primary Dx); Diarrhea, unspecified type Start: 03-04-2024 End: 03-04-[address] Clifford Delgado MD -Laboratory [place] Work Phone: Start: 03-04-2024 End: 03-04-2024 ambulatory Clifford Delgado Facility:[facility] Start: 02-29-2024 End: 02-29-2024 ambulatory Ana Casiano Facility:[facility] Start: 02-29-2024 End: 02-29-[address] 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); STEPHANY treated with BiPAP; Anthony's esophagus without dysplasia Start: 11-26-2023 End: 11-26-2023 ambulatory ANA A CASIANO Facility:[facility] Start: 11-23-2023 End: 11-23-2023 ambulatory Ana Casiano Facility:[facility] Start: 11-18-2023 End: 11-18-2023 ambulatory Ana Casiano Facility:[facility] [place] [place] Start: 11-06-2023 ambulatory ANA A CASIANO Facility:[facility] Start: 11-06-2023 End: 11-06-2023 Subsequent hospital visit by physician Gi/Gu [facility] ([facility]) [facility] Comment on above: History of fundoplic ation [Z98.890] Start: 10-29-2023 End: 10-30-2023 Emergency department patient visit Roman Odonnell Facility:[facility] Start: 09-29-2023 End: 09-30-2023 Telephone encounter Ruth Sullivan MD Work Phone: [facility] Start: 09-24-2023 ambulatory ANA Harpreet CASIANO Facility:[facility] Start: 09-24-2023 End: 09-24-2023 Preprocedural examination done Ruth Sullivan MD Work Phone: [facility] Work Phone: Start: 09-24-2023 End: 09-24-2023 Subsequent hospital visit by physician Ruth Sullivan MD Work Phone: [facility] Comment on above: Thrush of mouth and esophagus (HCC) (HCC) [B37.81, B37.0] Start: 09-07-2023 Telephone encounter Ruth santacruz MD Work Phone: [facility] Comment on above: Appointment (EGD new appointment. ) Start: 09-04-2023 ambulatory Ruth Sullivan MD Work Phone: [facility] Start: 09-04-2023 Patient encounter procedure Ruth Sullivan MD Work Phone: [facility] Comment on above: Egd question Start: 09-01-2023 Telephone encounter Ruth santacruz MD Work Phone: [facility] Comment on above: Appointment Start: 08-31-2023 Telephone encounter Ruth santacruz MD Work Phone: [facility] Comment on above: Appointment Start: 08-28-2023 End: 08-28-2023 Patient encounter procedure Ruth Sullivan MD Work Phone: [facility] Comment on above: 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); Anthony's esophagus without dysplasia; STEPHANY treated with BiPAP; Thrush of mouth and esophagus (HCC) (HCC) Start: 08-28-2023 End: 08-28-2023 Telemedicine consultation with patient Ruth Sullivan MD Work Phone: [facility] Start: 08-28-2023 End: 08-28-2023 ambulatory ANA CASIANO [facility] Start: 08-28-2023 Telephone encounter Ruth santacruz MD Work Phone: [facility] Comment on above: Orders (Schedule EGD ) Start: 08-28-2023 ambulatory ANA CASIANO [facility] Start: 08-04-2023 Telephone encounter Edith Chavez [facility] Comment on above: Patient Question; Fo llow Up Start: 07-03-2023 Telephone encounter Ruth santacruz MD Work Phone: [facility] Comment on above: Patient Question; Re turning Patient's Call Start: 06-29-2023 Telephone encounter Ruth santacruz MD Work Phone: [facility] Comment on above: Patient Question Start: 06-22-2023 Telephone encounter Ruth santacruz MD Work Phone: [facility] Comment on above: Patient Question Start: 06-03-2023 End: 06-03-2023 ambulatory ANA CASIANO Facility[facility] Start: 05-28-2023 Telephone encounter Ruth santacruz MD Work Phone: [facility] Comment on above: Patient Question Start: 05-26-2023 ambulatory Ruth Sullivan MD Work Phone: [facility] Comment on above: Hard spot on stomach Start: 05-19-2023 Orders Only Ruth Sullivan MD Work Phone: [facility] Start: 05-18-2023 Telephone encounter Ruth santacruz MD Work Phone: [facility] Comment on above: Returning Patient's Call Start: 05-15-2023 Telephone encounter Ruth santacruz MD Work Phone: [facility] Comment on above: Patient Question Start: 05-14-2023 Telephone encounter Ruth santacruz MD Work Phone: [facility] Comment on above: Medication Problem ( Zofran) Start: 05-13-2023 Telephone encounter Ruth santacruz MD Work Phone: [facility] Comment on above: Hospital Follow Up Start: 05-12-2023 End: 05-13-2023 ambulatory RUTH SULLIVAN Facility[facility] Start: 05-11-2023 Telephone encounter Ruth santacruz MD Work Phone: [facility] Comment on above: Patient Update Start: 05-08-2023 End: 05-08-2023 ambulatory ALEXIA RICHARDSON Facility:[facility] Start: 05-05-2023 Encounter for other preprocedural examination ANA CASIANO [facility] Start: 05-05-2023 End: 05-05-2023 Admission to establishment [email or web address] [place] [facility] Start: 05-05-2023 End: 05-05-2023 ambulatory ALPA PEARSON Pre Surgical Testing Comment on above: Pre-op exam; Paraesophageal hernia; Tachyarrhythmia; Migraine with aura and without status migrainosus, not intractable; History of kidney cancer; STEPHANY (obstructive sleep apnea); Primary hypertension; Anemia due to other cause, not classified Start: 05-05-2023 End: 05-05-2023 Preprocedural examination done [address] Work Phone: Start: 05-01-2023 End: 05-01-2023 Emergency department patient visit Dr. Ana Casiano Work Phone: [facility] Work Phone: Start: 05-01-2023 End: 05-01-2023 ambulatory Danaeolayinka Umanzor SUPERVISOR DYER Work Phone: [facility] Physical Therapy Comment on above: Pain in thoracic spi ne (Primary Dx) Start: 04-30-2023 Telephone encounter Alpa salter APRN.PRESS CLEANER Work Phone: [facility] SURGERY DEPARTMENT Comment on above: Patient Update Start: 04-23-2023 Orders Only Ruth Sullivan MD Work Phone: [facility] BARIATRIC DEPARTMENT Comment on above: Paraesophageal herni a (Primary Dx) Start: 04-20-2023 End: 04-20-[address] Ana Casiano Work Phone: [facility] Work Phone: Start: 04-20-2023 End: 04-20-[address] Ana Casiano Work Phone: [facility] Start: 04-20-2023 End: 04-20-2023 ambulatory Pantera Gallegos PT Work Phone: [facility] Physical Therapy Comment on above: Pain in thoracic spi ne Start: 04-13-2023 Telephone encounter Alpa salter APRN.PRESS CLEANER Work Phone: [facility] SURGERY DEPARTMENT Comment on above: Patient Update Start: 04-02-2023 Telephone encounter Ruth santacruz MD Work Phone: [facility] BARI[facility]IC [facility] Comment on above: Medical Clearance Start: 04-02-2023 End: 04-02-2023 Patient encounter procedure Ruth Sullivan MD Work Phone: [facility]IC DE[facility] Comment on above: Gastroesophageal ref lux disease with esophagitis without hemorrhage (Primary Dx); Hiatal hernia; Anthony's esophagus without dysplasia; Hypertension, unspecified type; STEPHANY treated with BiPAP; SVT (supraventricular tachycardia) Start: 04-02-2023 End: 04-02-2023 ambulatory RUTH SULLIVAN Facility:[facility] Start: 03-31-2023 End: 03-31-[address] Ana Casiano Work Phone: [facility] Work Phone: Start: 03-31-2023 End: 03-31-[address] Ana Casiano Work Phone: [facility]Laboratory Work Phone: Start: 03-30-2023 End: 03-30-2023 Patient encounter procedure Alpa Pearson APRN.PRESS CLEANER Work Phone: [facility] DEPARTMENT Comment on above: Paraesophageal herni a (Primary Dx); Preoperative examination; STEPHANY treated with BiPAP; Gastroesophageal reflux disease with esophagitis without hemorrhage; SVT (supraventricular tachycardia); Hypertension, unspecified type Start: 03-30-2023 End: 03-30-2023 Preprocedural examination done Alpa Pearson APRN.CNP Work Phone: [facility] Work Phone: Start: 03-30-2023 End: 03-30-2023 ambulatory ANA CASIANO Facility:[facility] Start: 03-30-2023 Encounter for other preprocedural examination ALPA PEARSON [facility] Start: 03-23-[address] Kim Casiano Work Phone: [facility] Start: 03-23-2023 End: 03-23-2023 Admission to same day surgery center Dr. Ana Casiano Work Phone: [facility] Start: 03-23-2023 End: 03-23-[address] Ana Casiano Work Phone: [facility] Work Phone: Start: 03-20-2023 End: 03-20-[address] Ana Casiano Work Phone: [facility]Nuclear Medicine, [facility] Work Phone: Start: 03-16-2023 End: 03-16-[address] Ana Casiano Work Phone: [facility] Work Phone: Start: 03-16-2023 End: 03-16-[address] Ana Casiano Work Phone: [facility]Laboratory Work Phone: Start: 03-13-2023 End: 03-13-2023 ambulatory ANA CASIANO Facility:[facility] Start: 03-10-2023 ambulatory ANA CASIANO Facility:[facility] Start: 03-06-2023 End: 03-06-2023 ambulatory ANA CASIANO Facility:[facility] Start: 02-24-2023 End: 02-24-[address] Ana Casiano Work Phone: [facility] Work Phone: Start: 02-13-2023 End: 02-13-2023 Emergency department patient visit Dr. Ana Casiano Work Phone: [facility]Emergency Department Work Phone: Start: 02-12-2023 End: 02-12-2023 Emergency department patient visit Dr. Ana Casiano Work Phone: [facility]Emer[facility] Work Phone: Start: 02-08-2023 End: 02-08-2023 Emergency department patient visit Dr. Ana Casiano Work Phone: [facility]Emer[facility] Work Phone: Start: 01-14-2023 End: 01-14-2023 Emergency department patient visit Dr. Ana Casiano Work Phone: [facility]Emergency Department Work Phone: Start: 01-09-2023 Non-patient / Non-visit Dr. Jaswant Casiano Work Phone: [facility] Work Phone: Start: 12-30-2022 End: 12-30-[address] Ana Casiano Work Phone: [facility] Work Phone: Start: 12-30-2022 End: 12-30-[address] Ana Casiano Work Phone: [facility] Work Phone: Start: 12-26-2022 End: 12-26-2022 Non-patient / Non-visit Dr. Ana Casiano Work Phone: [facility] Work Phone: Start: 12-26-[address] nAa mendoza [facility] Work Phone: Start: 12-22-2022 Non-patient / Non-visit Dr. Jaswant Casiano Work Phone: [facility] Start: 12-22-2022 End: 12-22-2022 Admission to same day surgery center Dr. Ana Casiano Work Phone: [facility]-Endoscopy Work Phone: Start: 12-22-2022 End: 12-22-[address] Ana Casiano Work Phone: [facility] Work Phone: Start: 12-05-2022 End: 12-05-[address] Ana Casiano Work Phone: [facility] Work Phone: Start: 11-24-2022 End: 11-24-[address] Ana Casiano Work Phone: [facility] Work Phone: Start: 11-19-2022 End: 11-19-[address] Ana Casiano Work Phone: [facility] Work Phone: Start: 11-19-2022 End: 11-19-[address] Ana Casiano Work Phone: [facility] Work Phone: Start: 11-19-2022 End: 11-19-[address] Ana Casiano Work Phone: [facility] Work Phone: Start: 10-17-2022 End: 10-17-[address] Ana Casiano Work Phone: [facility] Work Phone: Start: 06-16-2022 End: 06-16-[address] Ana Casiano Work Phone: [facility] Work Phone: Start: 06-16-2022 End: 06-16-[address] Ana Casiano Work Phone: [facility] [place] Start: 05-16-2022 End: 05-16-[address] Ana Casiano Work Phone: [facility] Start: 05-16-2022 End: 05-16-[address] Ana Casiano Work Phone: [facility] Work Phone: Start: 05-16-2022 End: 05-16-[address] Ana Casiano Work Phone: [facility] Start: 05-12-2022 End: 05-12-[address] Ana Casiano Work Phone: [facility] Start: 05-07-2022 End: 05-07-[address] Ana Casiano Work Phone: [facility] Work Phone: Start: 05-07-2022 End: 05-07-[address] Ana Casiano Work Phone: [facility] Start: 03-07-2022 End: 03-07-[address] Ana Casiano Work Phone: [facility] Work Phone: Start: 03-07-2022 End: 03-07-[address] Ana Casiano Work Phone: [facility] Start: 02-28-2022 Non-patient / Non-visit Dr. Jaswant Casiano Work Phone: [facility] Start: 02-28-2022 End: 02-28-[address] Ana Casiano Work Phone: [facility] Work Phone: Start: 02-28-2022 End: 02-28-[address] Ana Casiano Work Phone: [facility]Cardi[facility] Services Start: 02-13-2022 End: 02-13-[address] Ana Casiano Work Phone: [facility] Work Phone: Start: 02-13-2022 End: 02-13-[address] Ana Casiano Work Phone: [facility] Start: 02-12-2022 End: 02-12-[address] Ana Casiano Work Phone: [facility] Work Phone: Start: 02-12-2022 End: 02-12-[address] Ana Casiano Work Phone: [facility] Start: 02-10-2022 End: 02-10-2022 Emergency department patient [facility] Dr. [facility] Start: 02-07-2022 End: 02-07-[address] Ana Casiano Work Phone: [facility] Work Phone: Start: 02-07-2022 End: 02-07-[address] Ana Casiano Work Phone: [facility] Start: 01-10-2022 End: 01-10-[address] Ana Casiano Work Phone: [facility] Work Phone: Start: 01-10-2022 End: 01-10-[address] Ana Casiano Work Phone: [facility] Start: 12-18-2021 End: 12-18-2021 Emergency department patient [facility] Dr. Ana Casiano [facility] Start: 12-03-2021 End: 12-03-[address] Ana Casiano Work Phone: [facility] Work Phone: Start: 12-03-2021 End: 12-03-[address] Ana Casiano Work Phone: [facility] Start: 11-28-2021 End: 11-28-[address] Ana Casiano Work Phone: [facility] Start: 11-21-2021 End: 11-21-[address] Ana Casiano Work Phone[facility] Start: 10-10-2021 End: 10-10-[address] Ana Casiano Work Phone: [facility] Start: 08-16-2021 End: 08-16-[address] Ana Casiano Work Phone: [facility] Start: 07-03-2021 End: 07-03-[address] Ana Casiano [facility] Start: 06-28-2021 End: 06-28-[address] Ana Casiano [facility] Start: 06-14-2021 Non-patient / Non-visit Dr. Jaswant Casiano Work Phone: [facility] Phys[facility] Start: 06-13-2021 Non-patient / Non-visit Dr. Jaswant Casiano Work Phone: [facility] Start: 06-13-2021 Non-patient / Non-visit Dr. Jaswant Casiano Work Phone: [facility] Start: 06-12-2021 End: 06-14-2021 Evaluation and management of inpatient Dr. Ana Casiano [facility] Start: 05-23-2021 End: 05-23-[address] Ana Casiano Work Phone[facility] Start: 05-17-2021 End: 05-17-[address] Ana Casiano [facility] Start: 05-09-2021 End: 05-09-[address] Ana [facility] Start: 03-22-2021 End: 03-22-[address] Ana Casiano Work Phone: [facility] Start: 03-15-2021 Non-patient / Non-visit Dr. Jaswant Casiano Work Phone: [facility] Start: 03-15-2021 End: 03-15-[address] Ana Casiano [facility] Start: 03-14-2021 Non-patient / Non-visit Dr. Jaswant Casiano Work Phone: [facility] Start: 03-14-2021 End: 03-14-[address] Ana Casiano Work Phone: [facility] Start: 03-01-2021 End: 03-01-[address] Ana Casiano [facility] Start: 02-27-2021 End: 02-27-[address] Ana Casiano Work Phone: [facility] Procedures Date Procedure Procedure Detail Performing Clinician Start: 06-20-2024 Prostate specific an tigen measurement Dr. Ana Casiano MD Work Phone: Comment on above: This test was perfor med using the [employer] tPSA method. Measured values of a patient sample can vary depending on the testing procedure used. PSA values determined on patient samples by different testing procedures cannot be used interchangeably. If there is a change in PSA assays while monitoring therapy, sequential testing should be performed to confirm baseline values. Start: 05-23-2024 Vitamin D, 25-hydroxy measurement Dr. Ana Casiano MD Work Phone: Comment on above: Vitamin D StatusDefi ciency: <20 ng/mL (50nmol/L)Insufficiency: 20-30 ng/mL (50-75 nmol/L)Sufficiency: 30-100 ng/mL (75-250 nmol/L)Toxicity: >100 ng/mL (>250 nmol/L) Start: 04-01-2024 Colonoscopy flx dx w /collj spec when pfrmd Connie Ambrose BRAZER FURNACE.[employer] CLEANER Work Phone: Start: 04-01-2024 Colonoscopy Dominic cuevas MD Work Phone: Start: 03-04-2024 Measurement of C-akiko ctive protein using high sensitivity technique Dr. Ana Casiano MD Work Phone: Comment on above: C-Reactive Protein ( CRP) provides useful information for thediagnosis, therapy and monitoring of inflammatory processesand associated diseases. For the evaluation of Relative Riskfor Cardiovascular Disease, a High Sensitivity CRP (HSCRP)should be ordered. Start: 11-06-2023 XR UPPER GI SINGLE CONTRAST Ruth Sullivan MD Work Phone: Start: 09-24-2023 Esophagogastroduoden oscopy transoral diagnostic Ruth Sullivan MD Work Phone: Start: 05-05-2023 Antibody screen ANA MOORE Comment on above: Order Comment: Speci men Type: BLOOD SPECIMEN Ordering Facility: Address: [address] [place] [address] Performed By: #### T SCR #### [facility] [place] [id number] [address] [place] [address] [place] Start: 05-01-2023 Plain chest X-ray Dr. Kim Casiano Work Phone: Start: 03-31-[address] Ana Casiano Work Phone: Start: 03-20-2023 Radionuclide whole b estella bone study Dr. Ana Casiano Work Phone: Start: 02-13-2023 Plain chest X-ray Dr. Kim Casiano Work Phone: Start: 02-13-2023 Bacteria identified in Blood by Culture Dr. Ana Casiano Work Phone: Start: 02-12-2023 SARS-CoV-2, Influenza & RSV (PCR) Dr. Ana Casiano Work Phone: Start: 02-12-2023 CT of thorax with contrast Dr. Ana Casiano Work Phone: Start: 02-12-2023 Plain chest X-ray Dr. Kim Casiano Work Phone: Start: 01-14-2023 Plain x-ray of pelvi s and lower extremity Dr. Ana Casiano Work Phone: Start: 12-30-2022 CT of head without contrast Dr. Ana Casiano Work Phone: Start: 12-22-2022 EGD - PH Probe (Not Applicable) Dr. Ana Casiano Work Phone: Start: 11-19-2022 Dr. Ana mendoza Work Phone: Start: 05-16-2022 CT of abdomen and pe lvis without contrast Dr. Ana Casiano Work Phone: Start: 02-28-2022 Cardiovascular stres s test using pharmacologic stress agent Dr. Ana Casiano Work Phone: Start: 02-10-2022 Plain chest X-ray Dr. Kim Casiano Work Phone: Start: 12-18-2021 Plain chest X-ray Dr. Kim Casiano Work Phone: Start: 10-10-[address] Ana Casiano Work Phone: Start: 06-12-[address] Ana Casiano Work Phone: Start: 06-10-2021 End: 06-10-[address] Ana Casiano Work Phone: Start: 06-10-2021 Plain chest X-ray Dr. Kim Casiano Work Phone: Start: 05-23-2021 Computed tomography of abdomen and pelvis with contrast Dr. Ana Casiano Work Phone: Start: 05-10-2021 End: 05-10-2021 BP scrn no perf at interval Alexia duarte MD Work Phone: Start: 05-10-2021 End: 05-10-2021 Calc BMI out nrm freda nof/u Alexia maher MD Work Phone: Start: 05-10-2021 End: 05-10-2021 Current tobacco non-user cad cap copd pv dm Alexia Richardson MD Work Phone: Start: 05-10-2021 End: 05-10-2021 Docrev cur meds by perry maher MD Work Phone: Start: 05-10-2021 End: 05-10-2021 Falls plan of care not done for unspecified reasons Alexia Richardson MD Work Phone: Start: 05-10-2021 End: 05-10-2021 Falls risk not documented - reason not given Alexia Richardson MD Work Phone: Start: 05-10-2021 End: 05-10-2021 No doc of pain Alexia Richardson MD Work Phone: Start: 05-10-2021 End: 05-10-2021 Patient encounter procedure Alexia duarte MD Work Phone: Start: 05-10-2021 End: 05-10-2021 Pt falls assess docd 2/> falls/fall w/injury/yr Alexia Richardson MD Work Phone: Start: 04-22-2021 End: 04-22-2021 BP scrn no perf at interval Alexia duarte MD Work Phone: Start: 04-22-2021 End: 04-22-2021 Calc BMI abv up freda f/u Alexia oseguera MD Work Phone: Start: 04-22-2021 End: 04-22-2021 Current tobacco non-user cad cap copd pv dm Alexia Richardson MD Work Phone: Start: 04-22-2021 End: 04-22-2021 Docrev cur meds by perry maher MD Work Phone: Start: 04-22-2021 End: 04-22-2021 No doc of pain Alexia Richardson MD Work Phone: Start: 04-22-2021 End: 04-22-2021 Patient encounter procedure Alexia duarte MD Work Phone: Start: 03-14-[address] Ana mendoza Work Phone: Start: 03-14-2021 CT angiography of co ronary arteries Dr. Ana Casiano Work Phone: Start: 01-18-2015 Colonoscopy Alpa salter B[employer]ER [employer]CE.[employer] CLEANER Work Phone: Viral antigen assay Dr. Ana Casiano Work Phone: NEGATED: Highlighted rowStart: 05-10-2021 End: 05-10-2021 Documentation of current medications Bharati Medina AT NEGATED: Highlighted rowStart: 04-22-2021 End: 04-22-2021 Documentation of current medications Lali Reynolds AT Plan of Treatment Date Care Activity Detail Author Start: 04-01-2034 Screening for malignant neoplasm of colon [facility] Start: 12-08-2032 Urine microalbumin profile DTaP,Tdap,Td Vaccine (3 - Td or Tdap) [facility] Start: 04-01-2029 Screening for malignant neoplasm of colon [facility] Start: 03-14-2027 Screening for malignant neoplasm of colon Cologuard (FIT-DNA) [facility] Start: 05-12-2026 Diabetes Screening Diabetes Screening [facility] Start: 04-06-2026 Diabetes Screening Diabetes Screening [facility] Start: 03-25-2025 BP Controlled (<130/80) BP Controlled (<130/80) [facility] Start: 01-18-2025 Screening for malignant neoplasm of colon [facility] Start: 11-25-2024 BP Controlled (<130/80) BP Controlled (<130/80) [facility] Start: 06-02-2024 BP Controlled (<130/80) BP Controlled (<130/80) [facility] Start: 05-04-2024 BP Controlled (<130/80) BP Controlled (<130/80) [facility] Start: 04-19-2024 BP Controlled (<130/80) BP Controlled (<130/80) [facility] Start: 04-08-2024 End: 04-08-2024 Follow-up encounter 04/08/2024 10:30 AM EST [facility] [address] [place] [phone] Connie Ambrose APRN.PRESS CLEANER [address] [place] [id number] 04-01 colon follow up [facility] Comment on above: 04-01 colon follow up Virtual Start: 04-02-2024 BP Controlled (<130/80) BP Controlled (<130/80) [facility] Start: 04-01-2024 End: 04-01-2024 Patient encounter procedure 04/01/2024 2:45 PM EST Appointment Ambulatory Surgery [address] [place], [place] [address] Dominic Gonzalez MD [address] [phone] Ambulatory Surgery Start: 03-30-2024 BP Controlled (<130/80) BP Controlled (<130/80) [facility] Start: 02-10-2024 Advance Directive Discussion Advance Directive Discussion [facility] Start: 11-26-2023 End: 11-26-2023 Patient encounter procedure 11/26/2023 11:30 AM EDT Office Visit [facility] [address] [place] [address] Ruth Sullivan MD [address] [phone] Follow up testing results [facility] Comment on above: Follow up testing results Start: 11-20-2023 End: 11-20-2023 Patient encounter procedure 11/20/2023 11:00 AM EDT Office Visit [facility] [address] [facility] [place] [address] Ruth Sullivan MD 1 [facility] [address] [place], [place] [id number] F/U UGI [facility]IC DEPARTMENT Comment on above: F/U UGI Start: 11-06-2023 End: 11-06-2023 Patient encounter procedure 11/06/2023 10:00 AM EDT Appointment [facility] [address] [facility] [place], [place] [phone] History of fundoplication [Z98.890] [facility] Comment on above: History of fundoplication [Z98.890] Start: 10-16-2023 End: 10-16-2023 Patient encounter procedure 10/16/2023 11:00 AM EDT App[facility]ment [facility] [place] [address] [facility] Start: 10-11-2023 Covid-19 Vaccine ( season) Covid-19 Vaccine ( season) [facility] Start: 10-11-2023 Influenza vaccination Influenza Vaccine (#1) [facility] Start: 09-24-2023 End: 09-24-2023 Patient encounter procedure 09/24/2023 3:00 PM EDT App[facility]ment [facility] [place] [address] Ruth Sullivan MD 1 [facility] [address] [place] [address] [facility] Start: 09-18-2023 End: 09-18-2023 Follow-up encounter 09/18/2023 8:30 AM EDT [facility] [place] [place] [phone] Ruth Sullivan MD [address] [facility] [address] [place] [address] HBC-3 month follow up [facility] Comment on above: HBC-3 month follow up Start: 06-05-2023 Shingrix Vaccine (2 of 2) Shingrix Vaccine (2 of 2) [facility] Start: 05-01-2023 [facility] Start: 04-13-2023 End: 07-13-2023 CBC panel - Blood by Automated count CBC Lab Routine Preoperative examination Expected: 04/13/2023, Expires: 07/13/2023 [facility] Work Phone: Comment on above: Expected: 04/13/2023, Expires: Start: 04-13-2023 End: 07-13-2023 Comprehensive metabolic 2000 panel - Serum or Plasma COMP METABOLIC PANEL Lab Routine Preoperative examination Expected: 04/13/2023, Expires: 07/13/2023 [facility] Work Phone: Comment on above: Expected: 04/13/2023, Expires: Start: 04-13-2023 End: 07-13-2023 CONFIRM BLOOD TYPE CONFIRM BLOOD TYPE Blood Bank Routine Preoperative examination Expected: 04/13/2023, Expires: 07/13/2023 [facility] Work Phone: Comment on above: Expected: 04/13/2023, Expires: Start: 04-02-2023 End: 07-02-2023 Basic metabolic 2000 panel - Serum or Plasma BASIC METABOLIC PNL Lab Routine Gastroesophageal reflux disease with esophagitis without hemorrhage Expected: 04/02/2023, Expires: 07/02/2023 [facility] Work Phone: Comment on above: Expected: 04/02/2023, Expires: Start: 04-02-2023 End: 07-02-2023 CBC W Auto Differential panel - Blood CBC + DIFF Lab Routine Gastroesophageal reflux disease with esophagitis without hemorrhage Expected: 04/02/2023, Expires: 07/02/2023 [facility] Work Phone: Comment on above: Expected: 04/02/2023, Expires: 4 Start: 03-30-2023 End: 06-29-2023 TYPE + SCREEN TYPE + SCREEN Blood Bank Routine Preoperative examination Expected: 03/30/2023, Expires: 06/29/2023 [facility] Work Phone: Comment on above: Expected: 03/30/2023, Expires: 4 Start: 03-20-2023 NM Whole body Bone Views [facility] Start: 03-20-2023 Radionuclide whole body bone study Bone Scan Whole Body [facility] Start: 02-13-2023 [facility] Start: 02-13-2023 End: 02-13-2023 [facility] Start: 02-12-2023 [facility] Start: 02-09-2023 Advance Directive Discussion Advance Directive Discussion [facility] Start: 02-09-2023 Behavioral Health Screening Behavioral Health Screening [facility] Start: 02-09-2023 Depression Assessment Depression Assessment [facility] Start: 02-08-2023 [facility] Start: 01-14-2023 [facility] Start: 12-22-2022 Egd transoral biopsy single/multiple EGD BIOPSY SINGLE/MULTIPLE [facility] Start: 12-22-2022 Patient discharge [facility] Start: 10-10-2022 Covid-19 Vaccine () Covid-19 Vaccine () [facility] Start: 05-16-2022 Iv infusion therapy prophylaxis/dx ea hour THER/PROPH/DIAG IV INF ADDON [facility] Start: 05-16-2022 Iv infusion therapy/prophylaxis /dx 1st to 1 hr THER/PROPH/DIAG IV INF INIT [facility] Start: 03-07-2022 Procedure [facility] Start: 02-10-2022 [facility] Start: 12-18-2021 Blood chemistry [facility] Work Phone: Start: 12-18-2021 End: 12-18-2021 [facility] Start: 06-14-2021 Patient discharge [facility] Work Phone: Start: 06-13-2021 End: 06-14-2021 [facility] Work Phone: Start: 06-13-2021 Tobacco use cessation education [facility] Work Phone: Start: 06-13-2021 Consultation [facility] Work Phone: Start: 06-13-2021 Removal of urinary catheter [facility] Work Phone: Start: 06-12-2021 Admission procedure [facility] Work Phone: Start: 06-12-2021 Anes xtrprtl lower abd ur tract renal don nfrct ANESTH KIDNEY/URETER SURG [facility] Work Phone: Start: 06-12-2021 Laparoscopy surg partial nephrectomy LAPARO PARTIAL NEPHRECTOMY [facility] Work Phone: Start: 06-12-2021 Following clinical pathway protocol [facility] Work Phone: Start: 06-12-2021 Following clinical pathway protocol [facility] Work Phone: Start: 06-12-2021 Incentive spirometry [facility] Work Phone: Start: 06-12-2021 Application of intermittent pneumatic compression device [facility] Work Phone: Start: 06-12-2021 Measuring intake and output [facility] Work Phone: Start: 06-12-2021 Patient education [facility] Work Phone: Start: 06-12-2021 Provision of activity privileges [facility] Work Phone: Start: 06-12-2021 Taking patient vital signs [facility] Work Phone: Start: 06-12-2021 Vital signs measurements [facility] Work Phone: Start: 06-12-2021 [facility] Work Phone: Start: 06-12-2021 [facility] Work Phone: Start: 05-10-2021 End: 05-10-2021 Patient encounter procedure Appointment [facility] Work Phone: Start: 04-22-2021 End: 04-22-2021 Patient encounter procedure Appointment [facility] Work Phone: Start: 04-22-2021 End: 04-22-2021 Mri spinal canal lumbar w/o & w/contr matrl MRI lumbar with and without contrast [facility] Work Phone: Start: 04-22-2021 End: 04-22-2021 Mri spinal canal thoracic w/o & w/contr matrl MRI thoracic with and without contrast [facility] Work Phone: Start: 10-27-2018 Pneumococcal Vaccine: 50+ (2 of 2 - PPSV23) Pneumococcal Vaccine: 50+ (2 of 2 - PPSV23) [facility] Start: 10-27-2018 Pneumococcal Vaccine: 65+ (2 of 2 - PPSV23 or PCV20) Pneumococcal Vaccine: 65+ (2 of 2 - PPSV23 or PCV20) [facility] Start: 2010 RSV Vaccine (1 - 1-dose 60+ series) RSV Vaccine (1 - 1-dose 60+ series) [facility] Start: 2010 RSV Vaccine (1 - Risk 60-74 years 1-dose series) RSV Vaccine (1 - Risk 60-74 years 1-dose series) [facility] Start: 2000 Shingrix Vaccine (1 of 2) Shingrix Vaccine (1 of 2) [facility] Start: 09-14-1995 Diabetes Screening Diabetes Screening [facility] Start: 09-14-1995 Screening for malignant neoplasm of colon [facility] Start: 1985 Lipid panel Lipid Screening [facility] Start: 1968 Annual PCP Team Chronic Disease Visit Annual PCP Team Chronic Disease Visit [facility] Start: 1968 Anxiety Screening Anxiety Screening [facility] Start: 1968 Depression Screening Depression Screening [facility] Start: 1968 Hepatitis C screening Hepatitis C Screening [facility] Albumin/Globulin [Ma ss Ratio] in Serum or Plasma by Electrophoresis [facility] Cardiac event recording os ter [facility] Chest WO contrast [facility] Cyclic citrullinated peptide IgG Ab [Units/volume] in Serum or Plasma [facility] Work Phone: End: 08-27-2024 EGD DIAGNOSTIC EGD DIAGNOSTIC Endoscopy Routine Thrush of mouth and esophagus (HCC) (HCC) 1 Occurrences starting 08/28/2023 until 08/27/2024 [facility] Work Phone: Comment on above: 1 Occurrences starting 08/28/2023 until 08/27/2024 Electrophoresis: albumin [facility] Electrophoresis: [id number] [facility] Electrophoresis: [id number] [facility] Electrophoresis: traci ma globulin [facility] End: 03-25-2025 Flexible sigmoidoscopy study COLONOSCOPY DIAGNOSTIC Endoscopy Routine Positive colorectal cancer screening using Cologuard test Diarrhea, unspecified type 1 Occurrences starting 03/25/2024 until 03/25/2025 [facility] Work Phone: Comment on above: 1 Occurrences starting 03/25/2024 until 03/25/2025 Globulin measurement [facility] Lipid 1996 panel - S jluis or Plasma [facility] NM Heart Views W str ess and W radionuclide IV [facility] Work Phone: NM Heart Views W str ess and W radionuclide IV [facility] Patient Education [facility] Work Phone: Patient referral [facility] Work Phone: Procedure [facility] Work Phone: Protein electrophore sis panel - Serum or Plasma [facility] Retinol [Mass/volume ] in Serum or Plasma [facility] End: 10-23-2024 RF Gastrointestinal tract upper Views W barium contrast PO XR UPPER GI SINGLE CONTRAST Radiology Routine History of fundoplication 1 Occurrences starting 09/24/2023 until 10/23/2024 [facility] Comment on above: 1 Occurrences starting 09/24/2023 until 10/23/2024 Serum protein electrophoresis [facility] SURGICAL PATHOLOGY SURGICAL PATH OLOGY Lab Routine Thrush of mouth and esophagus (HCC) (HCC) Release Upon Ordering for 1 Occurrences starting 09/24/2023 [facility] Work Phone: Comment on above: Release Upon Ordering for 1 Occurrences starting 09/24/2023 Tissue Pathology bio psy report [facility] Work Phone: Comment on above: Release Upon Ordering for 1 Occurrences starting 04/01/2024, 1 completed Total globulins measurement [facility] Work Phone: [facility] Immunizations Immunization Date Immunization Notes Care Provider [facility] 02-20-2023 influenza virus vaccine, unspecified formulation Ruth Sullivan MD Work Phone: [facility] 04-17-2020 Covid (Moderna) Dr. Ana Nolen Work Phone: [facility] 03-20-2020 Covid (Moderna) Dr. Ana Nolen Work Phone: [facility] 12-25-2014 influenza, injectabl e, quadrivalent, preservative free Dr. Ana Casiano Work Phone: [facility] 12-25-2014 influenza, seasonal, injectable Dr. Ana Casiano Work Phone: [facility] 06-26-2014 tetanus toxoid, redu codi diphtheria toxoid, and acellular pertussis vaccine, adsorbed Dr. Ana Casiano Work Phone: [facility] Payers Date Payer Category Payer Self-pay [id number] 2022 Private Health Insurance MEDICAR E SUPPLEMENT Member Subscriber Plan / Payer (Effective 2022-Present) Name: Maria Luz Santana II Relation to Subscriber: Self Name: Maria Luz Santana II Payer ID: Not on file Group ID: Not on file Type: Indemnity Address: [place] [id number] 2022 Medicare [id number] 2015 Medicare [id number] 2015 Medicare [id number] Medicare [id number] Unknown [id number] Unknown [id number] Unknown [id number] Unknown [facility] DO NOT USE 22 [id number] Unknown [id number] Unknown [id number] Unknown [id number] 462 Unknown [id number] 462 Unknown [id number] 462 Unknown [id number] 462 Unknown [id number] 462 Unknown [id number] 462 Unknown [id number] 462 Unknown [id number] 462 Unknown [id number] Unknown [id number] 462 Social History Date Type Detail Facility Start: 02-27-2021 End: 05-01-2023 Assertion Unknown if ever smoked [facility] Work Phone: Start: 03-22-2018 Rare [facility] Start: 03-22-2018 None [facility] Start: 12-13-2017 Spouse/ Signif icant Other [facility] Start: 06-09-2020 Non-smoker [facility] Start: 1950 Sex Assigned At Male [facility] Start: 03-06-2023 End: 01-14-2024 Tobacco smoking status NHIS Never smoked tobacco [facility] Start: 03-06-2023 Tobacco use and exposure Smokeless tobacco non-user [facility] Start: 03-30-2023 End: 03-25-2024 Alcohol intake Current drinker of alcohol (finding) [facility] Start: 03-06-2023 End: 03-30-2023 History of Social function [facility] Work Phone: Start: 03-06-2023 End: 03-30-2023 Tobacco use panel [facility] Work Phone: National Score (1-100), lower number is lower risk 48 [facility] Work Phone: Start: 05-10-2015 Alcohol Comment occasional [facility] Start: 1950 Sex Assigned At Not on file [facility] Start: 10-27-2019 Gender identity Identifies as male gender (finding) [facility] Start: 10-27-2019 Sexual orientation Heterosexual ([place]) [facility] Start: 05-05-2023 Alcohol Comment [id number] times monthly [facility] Has the [employer], gas, oil, or water company threatened to shut off services in your home in past 12Mo No [facility] Work Phone: (I/We) worried whether (my/our) food would run out before (I/we) got money to buy more. Never true [facility] Work Phone: NEGATED: Highlighted rowStart: 05-10-2021 End: 05-10-2021 Employment detail Employment detail [facility] Work Phone: Medical Equipment Procedure Code Equipment Code Equipment Original Text Equipment Identifier Dates Robot-assisted partial nephrectomy KIRSTY JONES LG FDA Start: 06-12-2021 Robot-assisted partial nephrectomy CLIP,LAPRA-TY FDA Start: 06-12-2021 Robot-assisted partial nephrectomy SEALANT,FLOSEAL HEMOSTATIC 5ML FDA Start: 06-12-2021 Robot-assisted partial nephrectomy Ligation clip, synthetic polymer, non-bioabsorbable [id number] FDA Start: 06-12-2021 Robot-assisted partial nephrectomy Ligation clip, synthetic polymer, non-bioabsorbable [id number] FDA Start: 06-12-2021 Robot-assisted partial nephrectomy CLIPKIRSTY LG FDA Start: 06-12-2021 Robot-assisted partial nephrectomy CLIP,LAPRA-TY FDA Start: 06-12-2021 Robot-assisted partial nephrectomy SEALANT,FLOSEAL HEMOSTATIC 5ML FDA Start: 06-12-2021 Robot-assisted partial nephrectomy CLIPKIRSTY LG FDA Start: 06-12-2021 Robot-assisted partial nephrectomy CLIP,LAPRA-TY FDA Start: 06-12-2021 Robot-assisted partial nephrectomy SEALANT,FLOSEAL HEMOSTATIC 5ML FDA Start: 06-12-2021 Robot-assisted partial nephrectomy KIRSTY JONES LG FDA Start: 06-12-2021 Robot-assisted partial nephrectomy CLIP,LAPRA-TY FDA Start: 06-12-2021 Robot-assisted partial nephrectomy SEALANT,FLOSEAL HEMOSTATIC 5ML FDA Start: 06-12-2021 Robot-assisted partial nephrectomy CLIP,HEMOLOCK LG WECK FDA Start: 06-12-2021 Robot-assisted partial nephrectomy CLIP,LAPRA-TY FDA Start: 06-12-2021 Robot-assisted partial nephrectomy SEALANT,FLOSEAL HEMOSTATIC 5ML FDA Start: 06-12-2021 Robot-assisted partial nephrectomy CLIP,HEMOLOCK LG WECK FDA Start: 06-12-2021 Robot-assisted partial nephrectomy CLIP,LAPRA-TY FDA Start: 06-12-2021 Robot-assisted partial nephrectomy SEALANT,FLOSEAL HEMOSTATIC 5ML FDA Start: 06-12-2021 Robot-assisted partial nephrectomy CLIP,HEMOLOCK LG GIBRAN FDA Start: 06-12-2021 Robot-assisted partial nephrectomy CLIP,LAPRA-TY FDA Start: 06-12-2021 Robot-assisted partial nephrectomy SEALANT,FLOSEAL HEMOSTATIC 5ML FDA Start: 06-12-2021 Robot-assisted partial nephrectomy CLIP,HEMOLOEDMUND LG GIBRAN FDA Start: 06-12-2021 Robot-assisted partial nephrectomy CLIP,LAPRA-TY FDA Start: 06-12-2021 Robot-assisted partial nephrectomy SEALANT,FLOSEAL HEMOSTATIC 5ML FDA Start: 06-12-2021 Robot-assisted partial nephrectomy CLIP,HEMOLOEDMUND LG GIBRAN FDA Start: 06-12-2021 Robot-assisted partial nephrectomy CLIP,LAPRA-TY FDA Start: 06-12-2021 Robot-assisted partial nephrectomy SEALANT,FLOSEAL HEMOSTATIC 5ML FDA Start: 06-12-2021 Robot-assisted partial nephrectomy CLIP,HEMOLOCK LG RAEDMUND FDA Start: 06-12-2021 Robot-assisted partial nephrectomy CLIP,LAPRA-TY FDA Start: 06-12-2021 Robot-assisted partial nephrectomy SEALANT,FLOSEAL HEMOSTATIC 5ML FDA Start: 06-12-2021 Robot-assisted partial nephrectomy CLIP,HEMOLOCK ALONDRA LEARY FDA Start: 06-12-2021 Robot-assisted partial nephrectomy CLIP,LAPRA-TY FDA Start: 06-12-2021 Robot-assisted partial nephrectomy SEALANT,FLOSEAL HEMOSTATIC 5ML FDA Start: 06-12-2021 Robot-assisted partial nephrectomy CLIP,HEMOLOCK LG WECK FDA Start: 06-12-2021 Robot-assisted partial nephrectomy CLIP,LAPRA-TY FDA Start: 06-12-2021 Robot-assisted partial nephrectomy SEALANT,FLOSEAL HEMOSTATIC 5ML FDA Start: 06-12-2021 Robot-assisted partial nephrectomy CLIP,HEMOLOCK LG WECK FDA Start: 06-12-2021 Robot-assisted partial nephrectomy CLIP,LAPRA-TY FDA Start: 06-12-2021 Robot-assisted partial nephrectomy SEALANT,FLOSEAL HEMOSTATIC 5ML FDA Start: 06-12-2021 Robot-assisted partial nephrectomy CLIP,HEMOLOCK LG WECK FDA Start: 06-12-2021 Robot-assisted partial nephrectomy CLIP,LAPRA-TY FDA Start: 06-12-2021 Robot-assisted partial nephrectomy SEALANT,FLOSEAL HEMOSTATIC 5ML FDA Start: 06-12-2021 Robot-assisted partial nephrectomy CLIP,HEMOLOCK LG WECK FDA Start: 06-12-2021 Robot-assisted partial nephrectomy CLIP,LAPRA-TY FDA Start: 06-12-2021 Robot-assisted partial nephrectomy SEALANT,FLOSEAL HEMOSTATIC 5ML FDA Start: 06-12-2021 Robot-assisted partial nephrectomy CLIP,HEMOLOCK LG WECK FDA Start: 06-12-2021 Robot-assisted partial nephrectomy CLIP,LAPRA-TY FDA Start: 06-12-2021 Robot-assisted partial nephrectomy SEALANT,FLOSEAL HEMOSTATIC 5ML FDA Start: 06-12-2021 Robot-assisted partial nephrectomy CLIP,HEMOLOCK LG WECK FDA Start: 06-12-2021 Robot-assisted partial nephrectomy CLIP,LAPRA-TY FDA Start: 06-12-2021 Robot-assisted partial nephrectomy SEALANT,FLOSEAL HEMOSTATIC 5ML FDA Start: 06-12-2021 Robot-assisted partial nephrectomy CLIP,HEMOLOCK LG WECK FDA Start: 06-12-2021 Robot-assisted partial nephrectomy CLIP,LAPRA-TY FDA Start: 06-12-2021 Robot-assisted partial nephrectomy SEALANT,FLOSEAL HEMOSTATIC 5ML FDA Start: 06-12-2021 Robot-assisted partial nephrectomy CLIP,HEMOLOCK LG WECK FDA Start: 06-12-2021 Robot-assisted partial nephrectomy CLIP,LAPRA-TY FDA Start: 06-12-2021 Robot-assisted partial nephrectomy SEALANT,FLOSEAL HEMOSTATIC 5ML FDA Start: 06-12-2021 Robot-assisted partial nephrectomy CLIP,HEMKEMAL LEARY FDA Start: 06-12-2021 Robot-assisted partial nephrectomy CLIP,LAPRA-TY FDA Start: 06-12-2021 Robot-assisted partial nephrectomy SEALANT,FLOSEAL HEMOSTATIC 5ML FDA Start: 06-12-2021 Robot-assisted partial nephrectomy CLIP,HEMKEMAL LEARY FDA Start: 06-12-2021 Robot-assisted partial nephrectomy CLIP,LAPRA-TY FDA Start: 06-12-2021 Robot-assisted partial nephrectomy SEALANT,FLOSEAL HEMOSTATIC 5ML FDA Start: 06-12-2021 Robot-assisted partial nephrectomy CLIP,HEMKEMAL LEARY FDA Start: 06-12-2021 Robot-assisted partial nephrectomy CLIP,LAPRA-TY FDA Start: 06-12-2021 Robot-assisted partial nephrectomy SEALANT,FLOSEAL HEMOSTATIC 5ML FDA Start: 06-12-2021 Robot-assisted partial nephrectomy CLIP,HEMKEMAL LEARY FDA Start: 06-12-2021 Robot-assisted partial nephrectomy CLIP,LAPRA-TY FDA Start: 06-12-2021 Robot-assisted partial nephrectomy SEALANT,FLOSEAL HEMOSTATIC 5ML FDA Start: 06-12-2021 Robot-assisted partial nephrectomy CLIP,HEMKEMAL LERAY FDA Start: 06-12-2021 Robot-assisted partial nephrectomy CLIP,LAPRA-TY FDA Start: 06-12-2021 Robot-assisted partial nephrectomy SEALANT,FLOSEAL HEMOSTATIC 5ML FDA Start: 06-12-2021 Robot-assisted partial nephrectomy CLIP,HEMKEMAL LEARY FDA Start: 06-12-2021 Robot-assisted partial nephrectomy CLIP,LAPRA-TY FDA Start: 06-12-2021 Robot-assisted partial nephrectomy SEALANT,FLOSEAL HEMOSTATIC 5ML FDA Start: 06-12-2021 Robot-assisted partial nephrectomy CLIP,HEMKEMAL LEARY FDA Start: 06-12-2021 Robot-assisted partial nephrectomy CLIP,LAPRA-TY FDA Start: 06-12-2021 Robot-assisted partial nephrectomy SEALANT,FLOSEAL HEMOSTATIC 5ML FDA Start: 06-12-2021 Robot-assisted partial nephrectomy CLIP,KIRSTY LEARY FDA Start: 06-12-2021 Robot-assisted partial nephrectomy CLIP,LAPRA-TY FDA Start: 06-12-2021 Robot-assisted partial nephrectomy SEALANT,FLOSEAL HEMOSTATIC 5ML FDA Start: 06-12-2021 Robot-assisted partial nephrectomy CLIP,HEMOLOCK LG RACK FDA Start: 06-12-2021 Robot-assisted partial nephrectomy CLIP,LAPRA-TY FDA Start: 06-12-2021 Robot-assisted partial nephrectomy SEALANT,FLOSEAL HEMOSTATIC 5ML FDA Start: 06-12-2021 INTEGRATED INTER LOCKING L[employer] SC FDA Start: 03-20-2018 TRIGEN [id number] 1.5 NAIL FDA Start: 03-20-2018 INTEGRATED INTER LOCKING LAG SC FDA Start: 03-20-2018 TRIGEN [id number] 1.5 NAIL FDA Start: 03-20-2018 INTEGRATED INTER LOCKING LAG SC FDA Start: 03-20-2018 TRIGEN [id number] 1.5 NAIL FDA Start: 03-20-2018 INTEGRATED INTER LOCKING LAG SC FDA Start: 03-20-2018 TRIGEN [id number] 1.5 NAIL FDA Start: 03-20-2018 INTEGRATED INTER LOCKING LAG SC FDA Start: 03-20-2018 TRIGEN [id number] 1.5 NAIL FDA Start: 03-20-2018 INTEGRATED INTER LOCKING LAG SC FDA Start: 03-20-2018 TRIGEN [id number] 1.5 NAIL FDA Start: 03-20-2018 INTEGRATED INTER LOCKING LAG SC FDA Start: 03-20-2018 TRIGEN [id number] 1.5 NAIL FDA Start: 03-20-2018 INTEGRATED INTER LOCKING LAG SC FDA Start: 03-20-2018 TRIGEN [id number] 1.5 NAIL FDA Start: 03-20-2018 INTEGRATED INTER LOCKING LAG SC FDA Start: 03-20-2018 TRIGEN [id number] 1.5 NAIL FDA Start: 03-20-2018 INTEGRATED INTER LOCKING LAG SC FDA Start: 03-20-2018 TRIGEN [id number] 1.5 NAIL FDA Start: 03-20-2018 INTEGRATED INTER LOCKING LAG SC FDA Start: 03-20-2018 TRIGEN [id number] 1.5 NAIL FDA Start: 03-20-2018 INTEGRATED INTER LOCKING LAG SC FDA Start: 03-20-2018 TRIGEN [id number] 1.5 NAIL FDA Start: 03-20-2018 INTEGRATED INTER LOCKING LAG SC FDA Start: 03-20-2018 TRIGEN [id number] 1.5 NAIL FDA Start: 03-20-2018 INTEGRATED INTER LOCKING LAG SC FDA Start: 03-20-2018 TRIGEN [id number] 1.5 NAIL FDA Start: 03-20-2018 INTEGRATED INTER LOCKING LAG SC FDA Start: 03-20-2018 TRIGEN [id number] 1.5 NAIL FDA Start: 03-20-2018 INTEGRATED INTER LOCKING LAG SC FDA Start: 03-20-2018 TRIGEN [id number] 1.5 NAIL FDA Start: 03-20-2018 INTEGRATED INTER LOCKING LAG SC FDA Start: 03-20-2018 TRIGEN [id number] 1.5 NAIL FDA Start: 03-20-2018 INTEGRATED INTER LOCKING LAG SC FDA Start: 03-20-2018 TRIGEN [id number] 1.5 NAIL FDA Start: 03-20-2018 INTEGRATED INTER LOCKING LAG SC FDA Start: 03-20-2018 TRIGEN [id number] 1.5 NAIL FDA Start: 03-20-2018 INTEGRATED INTER LOCKING LAG SC FDA Start: 03-20-2018 TRIGEN [id number] 1.5 NAIL FDA Start: 03-20-2018 INTEGRATED INTER LOCKING LAG SC FDA Start: 03-20-2018 TRIGEN [id number] 1.5 NAIL FDA Start: 03-20-2018 Gastrointestinal telemetric monitoring system [id number] FDA Start: 12-22-2022 INTEGRATED INTER LOCKING LAG SC FDA Start: 03-20-2018 TRIGEN [id number] 1.5 NAIL FDA Start: 03-20-2018 INTEGRATED INTER LOCKING LAG SC FDA Start: 03-20-2018 TRIGEN [id number] 1.5 NAIL FDA Start: 03-20-2018 INTEGRATED INTER LOCKING LAG SC FDA Start: 03-20-2018 TRIGEN [id number] 1.5 NAIL FDA Start: 03-20-2018 INTEGRATED INTER LOCKING LAG SC FDA Start: 03-20-2018 TRIGEN [id number] 1.5 NAIL FDA Start: 03-20-2018 INTEGRATED INTER LOCKING LAG SC FDA Start: 03-20-2018 TRIGEN [id number] 1.5 NAIL FDA Start: 03-20-2018 INTEGRATED INTER LOCKING LAG SC FDA Start: 03-20-2018 TRIGEN [id number] 1.5 NAIL FDA Start: 03-20-2018 INTEGRATED INTER LOCKING LAG SC FDA Start: 03-20-2018 TRIGEN [id number] 1.5 NAIL FDA Start: 03-20-2018 Mesh Bio-A Synth etic 10x7cm Surgical Reinforcement Hernia Repair - [id number] Start: 05-12-2023 INTEGRATED INTER LOCKING LAG SC FDA Start: 03-20-2018 TRIGEN [id number] 1.5 NAIL FDA Start: 03-20-2018 INTEGRATED INTER LOCKING LAG SC FDA Start: 03-20-2018 TRIGEN [id number] 1.5 NAIL FDA Start: 03-20-2018 Goals Date Patient Goal Desired Activity /State Functional Status Date Assessment Result Facility 06-14-2021 Functional status Ambulates;Up ad aspen [facility] Work Phone: 06-28-2014 Are you deaf, or do you have serious difficulty hearing No 06/28/2014 1:11 PM EDT Lolita Dye LPN No [facility] 06-28-2014 Are you blind, or do you have serious difficulty seeing, even when wearing glasses No 06/28/2014 1:11 PM EDT Lolita Dye LPN No [facility] 06-28-2014 Do you have serious difficulty walking or climbing stairs No 06/28/2014 1:11 PM EDT Lolita Dye LPN No [facility] 06-28-2014 Do you have difficul ty dressing or bathing No 06/28/2014 1:11 PM EDT Lolita Dye LPN No [facility] 06-28-2014 Because of a physica l, mental, or emotional condition, do you have difficulty doing errands alone such as visiting a physician's office or shopping No 06/28/2014 1:11 PM EDT Lolita Dye LPN No [facility] Mental Status Date Assessment Result Facility 05-01-2023 Cognitive function Voice/Name [facility] Work Phone: 12-22-2022 Cognitive function Level Of Cons ciousness Follows Commands;Drowsy [facility] Work Phone: 12-22-2022 Cognitive function Voice/Name [facility] Work Phone: 05-16-2022 Cognitive function Level Of Cons ciousness Awake;Alert;Appropriate;Fol lows Commands [facility] Work Phone: 02-10-2022 Cognitive function Voice/Name [facility] Work Phone: 12-18-2021 Cognitive function Voice/Name [facility] Work Phone: 07-03-2021 Cognitive function Voice/Name;To uch/Shaking;Li ght Pain [facility] Work Phone: 06-14-2021 Cognitive function Appropriate;Cooperativ e [facility] Work Phone: 06-13-2021 Cognitive function Voice/Name [facility] Work Phone: 03-14-2021 Cognitive function Voice/Name [facility] Work Phone: 06-28-2014 Because of a physica l, mental, or emotional condition, do you have serious difficulty concentrating, remembering, or making decisions No 06/28/2014 1:11 PM EDT Lolita Dye LPN No [facility] Clinical Notes 12-22-2022 to 04-08-2024 Connie Ambrose APRN.[employer] - 04/08/2024 10:30 AM ESTDischarge Instr - Nursing - Mariya Chavez RN - 04/01/2024 12:51 PM ESTDischarge Instr - Nursing - Mariya Chavez RN - 04/01/2024 12:51 PM EST Note Date & Type Note Facility 04-08-2024 History of Present illness Narrative GENERAL SURGERY-ENDOSCOPY FOLLOW UP VIRTUAL VISIT I have communicated my name and active licensure. The patient's identity and physical location were verified at the time of this visit. 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 Maria Luz Santana II 1950 [id number] REFERRING PHYSICIAN: No referring provider defined for this encounter. Maria Luz Santana II is a patient I am following for positive cologuard. Dr. Gonzalez performed lower endoscopy on 04/01/24. The patient was found to have Impression: - One small (4-6 mm) polyp in the rectum, removed with a cold snare. Resected and retrieved. Clip was placed. Clip rn transition: Keepcon. - Non-bleeding internal hemorrhoids. - The examined portion of the ileum was normal. - The examination was otherwise normal. PATHOLOGY: FINAL DIAGNOSIS A. Rectum, polypectomy: -Fragments of tubular adenoma The patient notes no complaints since the procedure. VITALS: There were no vitals taken for this visit. General: patient is alert, cooperative, pleasant and in no acute distress Assessment ASSESSMENT/PLAN: 1. Adenomatous rectal polyp - ICD9: 211.4, ICD10: D12.8 The operative findings and pathology report were reviewed with the patient, and the patient has had the opportunity to ask questions and have questions answered. If the patient notes any problems or changes in bowel function, the patient should contact me immediately. Otherwise I recommend follow up endoscopy in 5 years. HM updated and recall letter generated. Discussed treatment plan and patient voices understanding. Patient's questions answered appropriately. Medications and potential side effects were discussed and patient voices understanding. Return to the office as scheduled or as needed for worsening/no improvement. Connie Ambrose APRN.CNP Risk of morbidity, mortality and/or complications of treatment plan: low I spent a total of 10 minutes on the date of the service which included preparing to see the patient, [id number] patient care, completing clinical documentation, communicating with other HCPs (not separately reported), and communicating results to the patient/family/caregiver. documented in this encounter [facility] 04-08-2024 Note HNO ID: [id number] Author: CONNIE AMBROSE APRN.CNP Service: ? Author Type: Nurse Practitioner Type: Progress Notes Filed: 04/08/2024 10:32 Note Text: GENERAL SURGERY-ENDOSCOPY FOLLOW UP VIRTUAL VISIT I have communicated my name and active licensure. The patient's identity and physical location were verified at the time of this visit. 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 Maria Luz Santana II 1950 [id number] REFERRING PHYSICIAN: No referring provider defined for this encounter. Maria Luz Santana II is a patient I am following for positive cologuard. Dr. Gonzalez performed lower endoscopy on 04/01/24. The patient was found to have Impression: - One small (4-6 mm) polyp in the rectum, removed with a cold snare. Resected and retrieved. Clip was placed. Clip rn transition: Keepcon. - Non-bleeding internal hemorrhoids. - The examined portion of the ileum was normal. - The examination was otherwise normal. PATHOLOGY: FINAL DIAGNOSIS A. Rectum, polypectomy: -Fragments of tubular adenoma The patient notes no complaints since the procedure. VITALS: There were no vitals taken for this visit. General: patient is alert, cooperative, pleasant and in no acute distress Assessment ASSESSMENT/PLAN: 1. Adenomatous rectal polyp - ICD9: 211.4, ICD10: D12.8 The operative findings and pathology report were reviewed with the patient, and the patient has had the opportunity to ask questions and have questions answered. If the patient notes any problems or changes in bowel function, the patient should contact me immediately. Otherwise I recommend follow up endoscopy in 5 years. HM updated and recall letter generated. Discussed treatment plan and patient voices understanding. Patient's questions answered appropriately. Medications and potential side effects were discussed and patient voices understanding. Return to the office as scheduled or as needed for worsening/no improvement. Connie Ambrose APRN.PRESS CLEANER Risk of morbidity, mortality and/or complications of treatment plan: low I spent a total of 10 minutes on the date of the service which included preparing to see the patient, [id number] patient care, completing clinical documentation, communicating with other HCPs (not separately reported), and communicating results to the patient/family/caregiver. [facility] 04-01-2024 Note Formatting of this n ote might be different from the original. The patient received a copy of Colonoscopy discharge instructions that contain information for how to contact the physician who performed the procedure and when to seek medical care. [facility] 04-01-2024 Miscellaneous Notes The patient received a copy of Colonoscopy discharge instructions that contain information for how to contact the physician who performed the procedure and when to seek medical care. documented in this encounter [facility] 04-01-2024 History and physical note HISTORY AND PHYSICAL Maria Luz Santana II : 1950 REFERRING PHYSICIAN: Ana Casiano ([facility]) [address] [place] [address] [facility] [id number] CHIEF COMPLAINT: Patient presents with: Consult: Positive cologuard HPI: Maria Luz is a 73 year old male referred for endoscopy. Maria Luz notes + Cologuard. Maria Luz denies abdominal pain.. Maria Luz notes recent history of diarrhea. -states stools have been softer since completing the Cologuard -last 3 days has had episodes of diarrhea in the am & one other- not bad enough to take anything OTC -denies fevers but notes "he hasn't felt great". 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 Maria Luz denies a change in bowel habits. Maria Luz denies melena. Maria Luz denies bright red blood per rectum. Maria Luz denies hemorrhoids. Maria Luz denies family history of colon issues. Maria Luz also notes an increase in acid reflux since developing diarrhea 3 days ago. Maria Luz follows with [facility] for hx of SVT. Last OV 01/02- no changes made. Denies CP, SOB, dizziness, palpitations, syncope, edema, recent hospitalizations Hx of STEPHANY c/w BiPAP Maria Luz has a hx of Anthony's esophagus which is managed by Dr. Miranda. He has hx of Toupet fundoplication. No longer taking PPIs. Last EGD 09/2023. Maria Luz has undergone prior endoscopy. Last EGD at [facility] with MAC. Impression: - Anthony's esophagus noted. - 3 cm hiatal hernia - appears to be a very small recurrent sliding hiatal hernia. Random esophageal biopsies were obtained due to his recent ongoing issues with Thrush - A Toupet fundoplication was found. The wrap appears intact on retroflexion with no evidence of recurrnece. Biopsied the gastric antrum for h.pylori. - Normal duodenal bulb, first portion of the duodenum, second portion of the duodenum and third portion of the duodenum. CURRENT MEDICATIONS Current Outpatient Medications Medication Sig indapamide (LOZOL) 1.25 mg tablet Take 1 tablet by mouth every afternoon. cranberry fruit (CRANBERRY) 450 mg tab once daily. flaxseed oil (OMEGA 3 ORAL) Take by mouth. Magnesium 200 mg tab Take by mouth once daily. dilTIAZem (CARDIZEM) 60 mg tablet Take 1 tablet by mouth every 12 hours. lisinopril (ZESTRIL) 20 mg tablet Take 1 tablet by mouth every 12 hours. loratadine (CLARITIN) 10 mg tablet Take 10 mg by mouth as needed for cold/allergy symptoms. peg 3350-Electrolytes (GOLYTELY) 236-22.74-6.74 -5.86 gram suspension Take 4,000 mL by mouth one time only for 1 dose. Refer to printed prep instructions from your provider. No current facility-administered medications for this visit. ALLERGIES: Corticosteroids (Glucocorticoids), Egg Derived, Fluconazole, Levaquin [Levofloxacin], Milk Containing Products (Dairy), Omeprazole, Penicillins, Protonix [Pantoprazole], Steroids [Betamethasone Dipropionate], and Uloric [Febuxostat] PAST MEDICAL HISTORY PAST MEDICAL HISTORY Diagnosis Date Allergic rhinitis Anthony's esophagus without dysplasia 12/22/2022 Benign enlargement of prostate CAD (coronary artery disease) Cancer of kidney (HCC) Gallstones 05/16/[address] GERD (gastroesophageal reflux disease) Gout Hiatal hernia 12/22/2022 medium sized; surgically repaired 05/12/23 History of anemia Hypertension Hypokalemia Inguinal hernia 05/16/2022 bilateral, small Iron deficiency anemia Lesion of left femur Migraines Sleep apnea wears bipap SVT (supraventricular tachycardia) (HCC) PAST SURGICAL HISTORY PAST SURGICAL HISTORY Procedure Laterality Date 48 HOUR PH STUDY 12/22/2022 Dr. Gill COLONOSCOPY 01/18/2015 EGD 01/18/2015 EGD WITH BIOPSY(S) 12/22/2022 medium hiatal hernia; Anthony's without dysplasia; Dr. Gill EGD WITH BIOPSY(S) 09/24/2023 3 cm recurrent hiatal hernia; Dr. Sullivan ESOPHAGEAL MANOMETRY 03/13/2023 Dr. Sullivan EXTENSIVE JAW SURGERY INGUINAL HERNIA REPAIR HX Left 10/11/1979 open LAPS RPR PARAESPHGL HRNA INCL FUNDPLSTY W/MESH 05/12/2023 Tojennifer; Dr. Sullivan NEPHRECTOMY PARTIAL Left 2020 VASECTOMY UNI/BI SPX W/POSTOP SEMEN EXAMS FAMILY HISTORY FAMILY HISTORY Problem Relation Age of Onset Allergies Mother Diabetes Mother Hypertension Mother Stroke Mother Coronary Artery Disease Father 60 [place] x 3 Blood Disease Father Heart Father Lymphoma Father Diabetes Maternal Grandmother SOCIAL HISTORY Social History Tobacco Use Smoking status: Never Smokeless tobacco: Never Vaping Use Vaping status: Never Used Substance Use Topics Alcohol use: Yes Comment: [id number] times monthly Drug use: No REVIEW OF SYMPTOMS: REVIEW OF SYSTEMS: General: The patient denies fatigue, denies weight loss, denies weight gain, denies feeling hot, and feelings of cold. Eyes: The patient denies glaucoma, denies eye injury/surgery, denies glasses or contacts. Ear/Nose/Throat: The patient + allergies, + hayfever, denies ear infections, and denies bloody noses. Cardiovascular: The patient denies chest pain, denies heart disease, denies high blood pressure, denies high cholesterol, and denies poor circulation. Respiratory: The patient denies tuberculosis, denies pneumonia, + frequent cough, denies shortness of breath, and denies coughing up blood. Gastrointestinal: The patient + difficulty swallowing, denies acid reflux, denies ulcers, denies jaundice/hepatitis, denies gallbladder problems, denies vomiting, denies black or tarry stools, denies hemorrhoids, denies bleeding from rectum, denies diverticulitis, denies constipation, + diarrhea, denies loss of stool control, and denies hernias. Kidney/Bladder: The patient denies kidney stones, denies urine infections, and denies bloody urine. Skin: The patient denies a history of skin cancer, denies bleeding/changing moles, and denies a history of skin rash. Neurologic: The patient denies a history of epilepsy/convulsions, + headaches, denies head/spinal injuries, and denies stroke/TIA. Psychiatric: The patient denies psychiatric medications, denies depression, and denies voices. Endocrine: The patient denies thyroid disorders, denies diabetes, and denies hormonal problems. Hematologic: The patient denies a history of bruising, denies bleeding, and denies anemia. Infections: The patient denies a history of measles and mumps, denies rheumatic fever, and denies sexually transmitted diseases. Musculoskeletal: The patient denies back pain/injury, + back problems, denies sciatica, denies knee/foot trouble, + arthritis, or denies gout. PHYSICAL EXAMINATION: General: The patient is 73 year old, male well nourished, well hydrated in no acute distress. The patient is oriented to time, place, and person. VITALS: Blood pressure 111/72, pulse (!) 58, height 177.8 cm (5' 10"), weight 91.2 kg (201 lb), SpO2 98%. Body mass index is 28.84 kg/m . HEENT: Normal cephalic, ataumatic, pupils are equally round, sclera are anicteric, mucous membranes are moist, oropharynx is clear. Neck has no masses, asymmetry or lymphadenopathy. Respiratory: Clear to auscultation and percussion. Normal respiratory excursion and pattern. Cardiac: Examination is regular rate and rhythm. Normal S1/S2 Abdominal exam: Soft, nontender, with no palpable masses. No hepatosplenomegaly. No palpable hernias. Extremities: no clubbing, cyanosis or edema. No adenopathy. LABORATORY VALUES: As Noted RADIOLOGIC STUDIES: As Noted Assessment IMPRESSION: positive cologuard PLAN: I have reviewed my findings with the surgeon. Will plan for lower endoscopy. We discussed the risks and benefits of the planned endoscopy. I have informed the patient that complications can occur including failure to complete the endoscopy and perforation. Maria Luz had the opportunity to ask questions concerning the planned endoscopy. My staff has also explained the procedure to the patient in understandable terms and has given the patient printed material concerning the procedure. Maria Luz freely consents to surgery. With the increase in acid reflux symptoms I suggested an EGD even though he just had one completed in September. He declines at this time. Bernabe notes if colonoscopy is normal and he is concerned will do EGD at a later date. I plan to use Golytely bowel preparation I have explained to the patient the difference between IV conscious sedation and MAC anesthesia - and I have offered either, according to the patient's wishes. I have explained that with IV conscious sedation there is no anesthesia provider available and therefore there is a limitation of the amount of IV medications that can be given and that the patient may wake up in the middle of the procedure and/or experience pain/discomfort during the procedure. Further discussion was done and the patient was given the opportunity to ask questions and all questions were answered. Maria Luz chooses IV conscious sedation. Maria Luz was counseled that if there are changes in his/her medical condition, to let the office know if surgery should proceed. If there are changes in patient's medical condition from time of this encounter to the day of the procedure that preclude anesthesia, patient may have procedure cancelled for patient's safety. Diagnoses: (R19.5) Positive colorectal cancer screening using Cologuard test (primary encounter diagnosis) (R19.7) Diarrhea, unspecified type Portions of this documentation were copied and pasted from previous office visit notes in order to provide a cohesive continuity of the history. The note has been reviewed and edited and updated as necessary. Connie Ambrose APRN.PRESS CLEANER UPDATED HISTORY AND PHYSICAL EXAMINATION SERVICE DATE: 04/01/2024 SERVICE TIME: 11:53 AM PHYSICAL EXAM MUST BE COMPLETED ON ADMISSION The History and Physical (completed in the past 30 days) has been reviewed and the patient has been examined. The contents accurately reflect the patient's condition with the following additions or revisions since the H&P was completed. Examination indicates no changes. This H&P can be found in the attached. SIGNATURE: Dominic Gonzalez III, MD PATIENT NAME: Maria Luz Santana II DATE: April 01, 2024 TIME: 11:53 AM [facility] 04-01-2024 History and physical note HISTORY AND PHYSICAL Maria Luz Santana II : 1950 REFERRING PHYSICIAN: Ana Casiano ([facility]) [address] [place] [address] [facility] [address] CHIEF COMPLAINT: Patient presents with: Consult: Positive cologuard HPI: Maria Luz is a 73 year old male referred for endoscopy. Maria Luz notes + Cologuard. Maria Luz denies abdominal pain.. Maria Luz notes recent history of diarrhea. -states stools have been softer since completing the Cologuard -last 3 days has had episodes of diarrhea in the am & one other- not bad enough to take anything OTC -denies fevers but notes "he hasn't felt great". 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 Maria Luz denies a change in bowel habits. Maria Luz denies melena. Maria Luz denies bright red blood per rectum. Maria Luz denies hemorrhoids. Maria Luz denies family history of colon issues. Maria Luz also notes an increase in acid reflux since developing diarrhea 3 days ago. Maria Luz follows with [facility] for hx of SVT. Last OV 01/02- no changes made. Denies CP, SOB, dizziness, palpitations, syncope, edema, recent hospitalizations Hx of STEPHANY c/w BiPAP Maria Luz has a hx of Anthony's esophagus which is managed by Dr. Miranda. He has hx of Toupet fundoplication. No longer taking PPIs. Last EGD 09/2023. Maria Luz has undergone prior endoscopy. Last EGD at [facility] with MAC. Impression: - Anthony's esophagus noted. - 3 cm hiatal hernia - appears to be a very small recurrent sliding hiatal hernia. Random esophageal biopsies were obtained due to his recent ongoing issues with Thrush - A Toupet fundoplication was found. The wrap appears intact on retroflexion with no evidence of recurrnece. Biopsied the gastric antrum for h.pylori. - Normal duodenal bulb, first portion of the duodenum, second portion of the duodenum and third portion of the duodenum. CURRENT MEDICATIONS Current Outpatient Medications Medication Sig indapamide (LOZOL) 1.25 mg tablet Take 1 tablet by mouth every afternoon. cranberry fruit (CRANBERRY) 450 mg tab once daily. flaxseed oil (OMEGA 3 ORAL) Take by mouth. Magnesium 200 mg tab Take by mouth once daily. dilTIAZem (CARDIZEM) 60 mg tablet Take 1 tablet by mouth every 12 hours. lisinopril (ZESTRIL) 20 mg tablet Take 1 tablet by mouth every 12 hours. loratadine (CLARITIN) 10 mg tablet Take 10 mg by mouth as needed for cold/allergy symptoms. peg 3350-Electrolytes (GOLYTELY) 236-22.74-6.74 -5.86 gram suspension Take 4,000 mL by mouth one time only for 1 dose. Refer to printed prep instructions from your provider. No current facility-administered medications for this visit. ALLERGIES: Corticosteroids (Glucocorticoids), Egg Derived, Fluconazole, Levaquin [Levofloxacin], Milk Containing Products (Dairy), Omeprazole, Penicillins, Protonix [Pantoprazole], Steroids [Betamethasone Dipropionate], and Uloric [Febuxostat] PAST MEDICAL HISTORY PAST MEDICAL HISTORY Diagnosis Date Allergic rhinitis Anthony's esophagus without dysplasia 12/22/2022 Benign enlargement of prostate CAD (coronary artery disease) Cancer of kidney (HCC) Gallstones 05/16/[address] GERD (gastroesophageal reflux disease) Gout Hiatal hernia 12/22/2022 medium sized; surgically repaired 05/12/23 History of anemia Hypertension Hypokalemia Inguinal hernia 05/16/2022 bilateral, small Iron deficiency anemia Lesion of left femur Migraines Sleep apnea wears bipap SVT (supraventricular tachycardia) (HCC) PAST SURGICAL HISTORY PAST SURGICAL HISTORY Procedure Laterality Date 48 HOUR PH STUDY 12/22/2022 Dr. Gill COLONOSCOPY 01/18/2015 EGD 01/18/2015 EGD WITH BIOPSY(S) 12/22/2022 medium hiatal hernia; Anthony's without dysplasia; Dr. Gill EGD WITH BIOPSY(S) 09/24/2023 3 cm recurrent hiatal hernia; Dr. Sullivan ESOPHAGEAL MANOMETRY 03/13/2023 Dr. Sullivan EXTENSIVE JAW SURGERY INGUINAL HERNIA REPAIR HX Left 10/11/1979 open LAPS RPR PARAESPHGL HRNA INCL FUNDPLSTY W/MESH 05/12/2023 Toupet; Dr. Sullivan NEPHRECTOMY PARTIAL Left 2020 VASECTOMY UNI/BI SPX W/POSTOP SEMEN EXAMS FAMILY HISTORY FAMILY HISTORY Problem Relation Age of Onset Allergies Mother Diabetes Mother Hypertension Mother Stroke Mother Coronary Artery Disease Father 60 [place] x 3 Blood Disease Father Heart Father Lymphoma Father Diabetes Maternal Grandmother SOCIAL HISTORY Social History Tobacco Use Smoking status: Never Smokeless tobacco: Never Vaping Use Vaping status: Never Used Substance Use Topics Alcohol use: Yes Comment: [id number] times monthly Drug use: No REVIEW OF SYMPTOMS: REVIEW OF SYSTEMS: General: The patient denies fatigue, denies weight loss, denies weight gain, denies feeling hot, and feelings of cold. Eyes: The patient denies glaucoma, denies eye injury/surgery, denies glasses or contacts. Ear/Nose/Throat: The patient + allergies, + hayfever, denies ear infections, and denies bloody noses. Cardiovascular: The patient denies chest pain, denies heart disease, denies high blood pressure, denies high cholesterol, and denies poor circulation. Respiratory: The patient denies tuberculosis, denies pneumonia, + frequent cough, denies shortness of breath, and denies coughing up blood. Gastrointestinal: The patient + difficulty swallowing, denies acid reflux, denies ulcers, denies jaundice/hepatitis, denies gallbladder problems, denies vomiting, denies black or tarry stools, denies hemorrhoids, denies bleeding from rectum, denies diverticulitis, denies constipation, + diarrhea, denies loss of stool control, and denies hernias. Kidney/Bladder: The patient denies kidney stones, denies urine infections, and denies bloody urine. Skin: The patient denies a history of skin cancer, denies bleeding/changing moles, and denies a history of skin rash. Neurologic: The patient denies a history of epilepsy/convulsions, + headaches, denies head/spinal injuries, and denies stroke/TIA. Psychiatric: The patient denies psychiatric medications, denies depression, and denies voices. Endocrine: The patient denies thyroid disorders, denies diabetes, and denies hormonal problems. Hematologic: The patient denies a history of bruising, denies bleeding, and denies anemia. Infections: The patient denies a history of measles and mumps, denies rheumatic fever, and denies sexually transmitted diseases. Musculoskeletal: The patient denies back pain/injury, + back problems, denies sciatica, denies knee/foot trouble, + arthritis, or denies gout. PHYSICAL EXAMINATION: General: The patient is 73 year old, male well nourished, well hydrated in no acute distress. The patient is oriented to time, place, and person. VITALS: Blood pressure 111/72, pulse (!) 58, height 177.8 cm (5' 10"), weight 91.2 kg (201 lb), SpO2 98%. Body mass index is 28.84 kg/m . HEENT: Normal cephalic, ataumatic, pupils are equally round, sclera are anicteric, mucous membranes are moist, oropharynx is clear. Neck has no masses, asymmetry or lymphadenopathy. Respiratory: Clear to auscultation and percussion. Normal respiratory excursion and pattern. Cardiac: Examination is regular rate and rhythm. Normal S1/S2 Abdominal exam: Soft, nontender, with no palpable masses. No hepatosplenomegaly. No palpable hernias. Extremities: no clubbing, cyanosis or edema. No adenopathy. LABORATORY VALUES: As Noted RADIOLOGIC STUDIES: As Noted Assessment IMPRESSION: positive cologuard PLAN: I have reviewed my findings with the surgeon. Will plan for lower endoscopy. We discussed the risks and benefits of the planned endoscopy. I have informed the patient that complications can occur including failure to complete the endoscopy and perforation. Maria Luz had the opportunity to ask questions concerning the planned endoscopy. My staff has also explained the procedure to the patient in understandable terms and has given the patient printed material concerning the procedure. Maria Luz freely consents to surgery. With the increase in acid reflux symptoms I suggested an EGD even though he just had one completed in September. He declines at this time. Bernabe notes if colonoscopy is normal and he is concerned will do EGD at a later date. I plan to use Golytely bowel preparation I have explained to the patient the difference between IV conscious sedation and MAC anesthesia - and I have offered either, according to the patient's wishes. I have explained that with IV conscious sedation there is no anesthesia provider available and therefore there is a limitation of the amount of IV medications that can be given and that the patient may wake up in the middle of the procedure and/or experience pain/discomfort during the procedure. Further discussion was done and the patient was given the opportunity to ask questions and all questions were answered. Maria Luz chooses IV conscious sedation. Maria Luz was counseled that if there are changes in his/her medical condition, to let the office know if surgery should proceed. If there are changes in patient's medical condition from time of this encounter to the day of the procedure that preclude anesthesia, patient may have procedure cancelled for patient's safety. Diagnoses: (R19.5) Positive colorectal cancer screening using Cologuard test (primary encounter diagnosis) (R19.7) Diarrhea, unspecified type Portions of this documentation were copied and pasted from previous office visit notes in order to provide a cohesive continuity of the history. The note has been reviewed and edited and updated as necessary. Connie Ambrose, BRAZER FURNACE.PRESS CLEANER UPDATED HISTORY AND PHYSICAL EXAMINATION SERVICE DATE: 04/01/2024 SERVICE TIME: 11:53 AM PHYSICAL EXAM MUST BE COMPLETED ON ADMISSION The History and Physical (completed in the past 30 days) has been reviewed and the patient has been examined. The contents accurately reflect the patient's condition with the following additions or revisions since the H&P was completed. Examination indicates no changes. This H&P can be found in the attached. SIGNATURE: Dominic Gonzlaez III, MD PATIENT NAME: Maria Luz Santana II DATE: April 01, 2024 TIME: 11:53 AM documented in this encounter [facility] 03-25-2024 Telephone encounter Note 04-01-2024 Colonoscopy [facility] provider went over all prep information and gave patient direct number to contact Marina Pleitez [facility] 03-25-2024 Miscellaneous Notes 04-01-2024 Colonoscopy [facility] provider went over all prep information and gave patient direct number to contact Marina Pleitez documented in this encounter [facility] 03-25-2024 History of Present illness Narrative HISTORY AND PHYSICAL Maria Luz Santana II : 1950 REFERRING PHYSICIAN: Ana Casiano ([facility]) [address] [place] [address] [facility] [address] CHIEF COMPLAINT: Patient presents with: Consult: Positive cologuard HPI: Maria Luz is a 73 year old male referred for endoscopy. Maria Luz notes + Cologuard. Maria Luz denies abdominal pain.. Maria Luz notes recent history of diarrhea. -states stools have been softer since completing the Cologuard -last 3 days has had episodes of diarrhea in the am & one other- not bad enough to take anything OTC -denies fevers but notes "he hasn't felt great". 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 Maria Luz denies a change in bowel habits. Maria Luz denies melena. Maria Luz denies bright red blood per rectum. Maria Luz denies hemorrhoids. Maria Luz denies family history of colon issues. Maria Luz also notes an increase in acid reflux since developing diarrhea 3 days ago. Maria Luz follows with [facility] for hx of SVT. Last OV 01/02- no changes made. Denies CP, SOB, dizziness, palpitations, syncope, edema, recent hospitalizations Hx of STEPHANY c/w BiPAP Maria Luz has a hx of Anthony's esophagus which is managed by Dr. Miranda. He has hx of Toupet fundoplication. No longer taking PPIs. Last EGD 09/2023. Maria Luz has undergone prior endoscopy. Last EGD at [facility] with MAC. Impression: - Anthony's esophagus noted. - 3 cm hiatal hernia - appears to be a very small recurrent sliding hiatal hernia. Random esophageal biopsies were obtained due to his recent ongoing issues with Thrush - A Toupet fundoplication was found. The wrap appears intact on retroflexion with no evidence of recurrnece. Biopsied the gastric antrum for h.pylori. - Normal duodenal bulb, first portion of the duodenum, second portion of the duodenum and third portion of the duodenum. Current Outpatient Medications Medication Sig indapamide (LOZOL) 1.25 mg tablet Take 1 tablet by mouth every afternoon. cranberry fruit (CRANBERRY) 450 mg tab once daily. flaxseed oil (OMEGA 3 ORAL) Take by mouth. Magnesium 200 mg tab Take by mouth once daily. dilTIAZem (CARDIZEM) 60 mg tablet Take 1 tablet by mouth every 12 hours. lisinopril (ZESTRIL) 20 mg tablet Take 1 tablet by mouth every 12 hours. loratadine (CLARITIN) 10 mg tablet Take 10 mg by mouth as needed for cold/allergy symptoms. peg 3350-Electrolytes (GOLYTELY) 236-22.74-6.74 -5.86 gram suspension Take 4,000 mL by mouth one time only for 1 dose. Refer to printed prep instructions from your provider. No current facility-administered medications for this visit. ALLERGIES: Corticosteroids (Glucocorticoids), Egg Derived, Fluconazole, Levaquin [Levofloxacin], Milk Containing Products (Dairy), Omeprazole, Penicillins, Protonix [Pantoprazole], Steroids [Betamethasone Dipropionate], and Uloric [Febuxostat] PAST MEDICAL HISTORY Diagnosis Date Allergic rhinitis Anthony's esophagus without dysplasia 12/22/2022 Benign enlargement of prostate CAD (coronary artery disease) Cancer of kidney (HCC) Gallstones 05/16/[address] GERD (gastroesophageal reflux disease) Gout Hiatal hernia 12/22/2022 medium sized; surgically repaired 05/12/23 History of anemia Hypertension Hypokalemia Inguinal hernia 05/16/2022 bilateral, small Iron deficiency anemia Lesion of left femur Migraines Sleep apnea wears bipap SVT (supraventricular tachycardia) (HCC) PAST SURGICAL HISTORY Procedure Laterality Date 48 HOUR PH STUDY 12/22/2022 Dr. Gill COLONOSCOPY 01/18/2015 EGD 01/18/2015 EGD WITH BIOPSY(S) 12/22/2022 medium hiatal hernia; Anthony's without dysplasia; Dr. Gill EGD WITH BIOPSY(S) 09/24/2023 3 cm recurrent hiatal hernia; Dr. Sullivan ESOPHAGEAL MANOMETRY 03/13/2023 Dr. Sullivan EXTENSIVE JAW SURGERY INGUINAL HERNIA REPAIR HX Left 10/11/1979 open LAPS RPR PARAESPHGL HRNA INCL FUNDPLSTY W/MESH 05/12/2023 Toupet; Dr. Sullivan NEPHRECTOMY PARTIAL Left 2020 VASECTOMY UNI/BI SPX W/POSTOP SEMEN EXAMS FAMILY HISTORY Problem Relation Age of Onset Allergies Mother Diabetes Mother Hypertension Mother Stroke Mother Coronary Artery Disease Father 60 [place] x 3 Blood Disease Father Heart Father Lymphoma Father Diabetes Maternal Grandmother Social History Tobacco Use Smoking status: Never Smokeless tobacco: Never Vaping Use Vaping status: Never Used Substance Use Topics Alcohol use: Yes Comment: [id number] times monthly Drug use: No REVIEW OF SYMPTOMS: REVIEW OF SYSTEMS: General: The patient denies fatigue, denies weight loss, denies weight gain, denies feeling hot, and feelings of cold. Eyes: The patient denies glaucoma, denies eye injury/surgery, denies glasses or contacts. Ear/Nose/Throat: The patient + allergies, + hayfever, denies ear infections, and denies bloody noses. Cardiovascular: The patient denies chest pain, denies heart disease, denies high blood pressure, denies high cholesterol, and denies poor circulation. Respiratory: The patient denies tuberculosis, denies pneumonia, + frequent cough, denies shortness of breath, and denies coughing up blood. Gastrointestinal: The patient + difficulty swallowing, denies acid reflux, denies ulcers, denies jaundice/hepatitis, denies gallbladder problems, denies vomiting, denies black or tarry stools, denies hemorrhoids, denies bleeding from rectum, denies diverticulitis, denies constipation, + diarrhea, denies loss of stool control, and denies hernias. Kidney/Bladder: The patient denies kidney stones, denies urine infections, and denies bloody urine. Skin: The patient denies a history of skin cancer, denies bleeding/changing moles, and denies a history of skin rash. Neurologic: The patient denies a history of epilepsy/convulsions, + headaches, denies head/spinal injuries, and denies stroke/TIA. Psychiatric: The patient denies psychiatric medications, denies depression, and denies voices. Endocrine: The patient denies thyroid disorders, denies diabetes, and denies hormonal problems. Hematologic: The patient denies a history of bruising, denies bleeding, and denies anemia. Infections: The patient denies a history of measles and mumps, denies rheumatic fever, and denies sexually transmitted diseases. Musculoskeletal: The patient denies back pain/injury, + back problems, denies sciatica, denies knee/foot trouble, + arthritis, or denies gout. PHYSICAL EXAMINATION: General: The patient is 73 year old, male well nourished, well hydrated in no acute distress. The patient is oriented to time, place, and person. VITALS: Blood pressure 111/72, pulse (!) 58, height 177.8 cm (5' 10"), weight 91.2 kg (201 lb), SpO2 98%. Body mass index is 28.84 kg/m . HEENT: Normal cephalic, ataumatic, pupils are equally round, sclera are anicteric, mucous membranes are moist, oropharynx is clear. Neck has no masses, asymmetry or lymphadenopathy. Respiratory: Clear to auscultation and percussion. Normal respiratory excursion and pattern. Cardiac: Examination is regular rate and rhythm. Normal S1/S2 Abdominal exam: Soft, nontender, with no palpable masses. No hepatosplenomegaly. No palpable hernias. Extremities: no clubbing, cyanosis or edema. No adenopathy. LABORATORY VALUES: As Noted RADIOLOGIC STUDIES: As Noted Assessment IMPRESSION: positive cologuard PLAN: I have reviewed my findings with the surgeon. Will plan for lower endoscopy. We discussed the risks and benefits of the planned endoscopy. I have informed the patient that complications can occur including failure to complete the endoscopy and perforation. Maria Luz had the opportunity to ask questions concerning the planned endoscopy. My staff has also explained the procedure to the patient in understandable terms and has given the patient printed material concerning the procedure. Maira Luz freely consents to surgery. With the increase in acid reflux symptoms I suggested an EGD even though he just had one completed in September. He declines at this time. Bernabe notes if colonoscopy is normal and he is concerned will do EGD at a later date. I plan to use Golytely bowel preparation I have explained to the patient the difference between IV conscious sedation and MAC anesthesia - and I have offered either, according to the patient's wishes. I have explained that with IV conscious sedation there is no anesthesia provider available and therefore there is a limitation of the amount of IV medications that can be given and that the patient may wake up in the middle of the procedure and/or experience pain/discomfort during the procedure. Further discussion was done and the patient was given the opportunity to ask questions and all questions were answered. Maria Luz chooses IV conscious sedation. Maria Luz was counseled that if there are changes in his/her medical condition, to let the office know if surgery should proceed. If there are changes in patient's medical condition from time of this encounter to the day of the procedure that preclude anesthesia, patient may have procedure cancelled for patient's safety. Diagnoses: (R19.5) Positive colorectal cancer screening using Cologuard test (primary encounter diagnosis) (R19.7) Diarrhea, unspecified type Portions of this documentation were copied and pasted from previous office visit notes in order to provide a cohesive continuity of the history. The note has been reviewed and edited and updated as necessary. Connie Ambrose APRN.PRESS CLEANER documented in this encounter [facility] 03-25-2024 Note HNO ID: [id number] Author: CONNIE AMBROSE APRN.PRESS CLEANER Service: ? Author Type: Nurse Practitioner Type: Progress Notes Filed: 03/25/2024 13:18 Note Text: HISTORY AND PHYSICAL Maria Luz Santana II : 1950 REFERRING PHYSICIAN: Ana Casiano ([facility]) [address] [place] [address] [facility] [address] CHIEF COMPLAINT: Patient presents with: Consult: Positive cologuard HPI: Maria Luz is a 73 year old male referred for endoscopy. Maria Luz notes + Cologuard. Maria Luz denies abdominal pain.. Maria Luz notes recent history of diarrhea. -states stools have been softer since completing the Cologuard -last 3 days has had episodes of diarrhea in the am AND one other- not bad enough to take anything OTC -denies fevers but notes "he hasn't felt great". 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 Maria Luz denies a change in bowel habits. Maria Luz denies melena. Maria Luz denies bright red blood per rectum. Maria Luz denies hemorrhoids. Maria Luz denies family history of colon issues. Maria Luz also notes an increase in acid reflux since developing diarrhea 3 days ago. Maria Luz follows with [facility] for hx of SVT. Last OV 01/02- no changes made. Denies CP, SOB, dizziness, palpitations, syncope, edema, recent hospitalizations Hx of STEPHANY c/w BiPAP Maria Luz has a hx of Anthony's esophagus which is managed by Dr. Miranda. He has hx of Toupet fundoplication. No longer taking PPIs. Last EGD 09/2023. Maria Luz has undergone prior endoscopy. Last EGD at [facility] with MAC. Impression: - Anthony's esophagus noted. - 3 cm hiatal hernia - appears to be a very small recurrent sliding hiatal hernia. Random esophageal biopsies were obtained due to his recent ongoing issues with Thrush - A Toupet fundoplication was found. The wrap appears intact on retroflexion with no evidence of recurrnece. Biopsied the gastric antrum for h.pylori. - Normal duodenal bulb, first portion of the duodenum, second portion of the duodenum and third portion of the duodenum. Current Outpatient Medications Medication Sig indapamide (LOZOL) 1.25 mg tablet Take 1 tablet by mouth every afternoon. cranberry fruit (CRANBERRY) 450 mg tab once daily. flaxseed oil (OMEGA 3 ORAL) Take by mouth. Magnesium 200 mg tab Take by mouth once daily. dilTIAZem (CARDIZEM) 60 mg tablet Take 1 tablet by mouth every 12 hours. lisinopril (ZESTRIL) 20 mg tablet Take 1 tablet by mouth every 12 hours. loratadine (CLARITIN) 10 mg tablet Take 10 mg by mouth as needed for cold/allergy symptoms. peg 3350-Electrolytes (GOLYTELY) 236-22.74-6.74 -5.86 gram suspension Take 4,000 mL by mouth one time only for 1 dose. Refer to printed prep instructions from your provider. No current facility-administered medications for this visit. ALLERGIES: Corticosteroids (Glucocorticoids), Egg Derived, Fluconazole, Levaquin [Levofloxacin], Milk Containing Products (Dairy), Omeprazole, Penicillins, Protonix [Pantoprazole], Steroids [Betamethasone Dipropionate], and Uloric [Febuxostat] PAST MEDICAL HISTORY Diagnosis Date Allergic rhinitis Anthony's esophagus without dysplasia 12/22/2022 Benign enlargement of prostate CAD (coronary artery disease) Cancer of kidney (HCC) Gallstones 05/16/[address] GERD (gastroesophageal reflux disease) Gout Hiatal hernia 12/22/2022 medium sized; surgically repaired 05/12/23 History of anemia Hypertension Hypokalemia Inguinal hernia 05/16/2022 bilateral, small Iron deficiency anemia Lesion of left femur Migraines Sleep apnea wears bipap SVT (supraventricular tachycardia) (HCC) PAST SURGICAL HISTORY Procedure Laterality Date 48 HOUR PH STUDY 12/22/2022 Dr. Gill COLONOSCOPY 01/18/2015 EGD 01/18/2015 EGD WITH BIOPSY(S) 12/22/2022 medium hiatal hernia; Anthony's without dysplasia; Dr. Gill EGD WITH BIOPSY(S) 09/24/2023 3 cm recurrent hiatal hernia; Dr. Sullivan ESOPHAGEAL MANOMETRY 03/13/2023 Dr. Sullivan EXTENSIVE JAW SURGERY INGUINAL HERNIA REPAIR HX Left 10/11/1979 open LAPS RPR PARAESPHGL HRNA INCL FUNDPLSTY W/MESH 05/12/2023 Toupet; Dr. Sullivan NEPHRECTOMY PARTIAL Left 2020 VASECTOMY UNI/BI SPX W/POSTOP SEMEN EXAMS FAMILY HISTORY Problem Relation Age of Onset Allergies Mother Diabetes Mother Hypertension Mother Stroke Mother Coronary Artery Disease Father 60 [place] x 3 Blood Disease Father Heart Father Lymphoma Father Diabetes Maternal Grandmother Social History Tobacco Use Smoking status: Never Smokeless tobacco: Never Vaping Use Vaping status: Never Used Substance Use Topics Alcohol use: Yes Comment: [id number] times monthly Drug use: No REVIEW OF SYMPTOMS: REVIEW OF SYSTEMS: General: The patient denies fatigue, denies weight loss, denies weight gain, denies feeling hot, and feelings of cold. Eyes: The patient denies glaucoma, denies eye injury/surgery, denies glasses or contacts. Ear/Nose/Throat: The patient + allergies, + (more content not included)... [facility] 11-26-2023 Note HNO ID: [id number] Author: RUTH SULLIVAN MD Service: ? Author Type: Physician Type: Progress Notes Filed: 11/26/2023 11:58 Note Text: SURGICAL SERVICES HISTORY AND PHYSICAL EXAMINATION SERVICE DATE: 11/26/2023 SERVICE TIME: 11:42 AM PRIMARY CARE PHYSICIAN: Ana Casiano MD SUBJECTIVE CHIEF COMPLAINT: follow up after EGD HISTORY OF PRESENT ILLNESS: Mr. Santana is a 73 year old male who is well-known to me who presents for follow up after recent EGD. I last saw him in clinic on 08/28/23 at which time he was endorsing vocal hoarseness and chest discomfort and chronic thrush. He then underwent EGD on 09/24/23 which demonstrated 2 cm Anthony's esophagus and a small recurrent sliding 3 cm hiatal hernia with intact Toupet Fundoplication. UGI on 11/06/23 demonstrated no hernia and no abnormality. Today the patient endorses feeling better with resolution of most of his symptoms. He believes that most of his vocal hoarseness and chest discomfort is due to chronic sinus drainage. While on sinus medication these symptoms all resolved. Workup: - EGD (Nate 09/24/23): Anthony's esophagus. Small sliding hiatal hernia - Pathology: Esophagus, random, biopsy: Squamous epithelium with minimal chronic inflammation. Special stain for PAS/D negative for fungal elements. Stomach, biopsy: - Mild chronic gastritis. Immunohistochemical stain for Helicobacter is negative for Helicobacter pylori-like for microorganisms - UGI (10/2023): Normal caliber of the esophagus. Contrast freely flows through the esophagus into the stomach. No hiatal hernia. No obvious mass. No stricture. Contrast freely flows through the pylorus into the duodenum. 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 Gill COLONOSCOPY 01/18/2015 EGD 01/18/2015 EGD WITH BIOPSY(S) 12/22/2022 medium hiatal hernia; Anthony's without dysplasia; Dr. Gill EGD WITH BIOPSY(S) 09/24/2023 3 cm recurrent hiatal hernia; Dr. Sullivan ESOPHAGEAL MANOMETRY 03/13/2023 Dr. Sullivan EXTENSIVE JAW SURGERY INGUINAL HERNIA REPAIR HX Left 10/11/1979 open LAPS RPR PARAESPHGL HRNA INCL FUNDPLSTY W/MESH 05/12/2023 Toupet; Dr. Sullivan NEPHRECTOMY PARTIAL Left 2020 VASECTOMY UNI/BI SPX W/POSTOP SEMEN EXAMS FAMILY HISTORY: FAMILY HISTORY Problem Relation Age of Onset Allergies Mother Diabetes Mother Hypertension Mother Stroke Mother Coronary Artery Disease Father 60 [place] x 3 Blood Disease Father Heart Father SOCIAL HISTORY: Social History Tobacco Use Smoking status: Never Smokeless tobacco: Never Vaping Use Vaping status: Never Used Substance Use Topics Alcohol use: Yes Comment: [id number] times monthly Drug use: No MEDICATIONS: Current Outpatient Medications Medication Sig dilTIAZem (CARDIZEM) 60 mg tablet Take 1 tablet by mouth every 12 hours. ergocalciferol 50,000 unit capsule (VITAMIN D2, DRISDOL) Take 1 capsule by mouth one time a week. allopurinol (ZYLOPRIM) 100 mg tablet Take 200 mg by mouth once daily. loratadine (CLARITIN) 10 mg tablet Take 10 mg by mouth as needed for cold/allergy symptoms. nystatin (MYCOSTATIN) 100,000 unit/mL suspension swish and spit 1 ml BY MOUTH FOUR TIMES DAILY for 1 minute famotidine (PEPCID) 20 mg tablet Take 1 tablet by mouth every 12 hours. lisinopril (ZESTRIL) 20 mg tablet Take 1 tablet by mouth every 12 hours. hydrochlorothiazide 12.5 mg tablet Take 12.5 mg by mouth once daily. Two tablets No current facility-administered medications for this visit. ALLERGIES: ALLERGIES Allergen Reactions Corticosteroids (Gl* Other: See Comments, Shortness of Breath Egg Derived Other: See Comments Fluconazole Intolerance, Shortness of Breath Levaquin [Levofloxa* Rash Milk Containing Pro* Diarrhea Omeprazole Itching Penicillins Swelling swelling of tongue Protonix [Pantopraz* Itching Steroids [Betametha* Swelling Tongue swelling Uloric [Febuxostat] Rash COMPLETE REVIEW OF SYSTEMS: Review of Systems All other systems reviewed and are negative. OBJECTIVE PHYSICAL EXAM: BP 122/60 Pulse 65 Ht 5' 10" (1.78m) Wt 192 lb (87.1kg) BMI 27.55 kg/(m2). Physical Exam Vitals reviewed. Constitutional: Appearance: Normal appearance. HENT: Head: Normocephalic and atraumatic. Nose: Nose normal. Eyes: General: No scleral icterus. Extraocular Movements: Extraocular movements intact. Conjunctiva/sclera: Conjunctivae normal. Pupils: Pupils are equal, round, and reactive to light. Cardiov (more content not included)... [facility] 11-26-2023 History of Present illness Narrative SURGICAL SERVICES HISTORY AND PHYSICAL EXAMINATION SERVICE DATE: 11/26/2023 SERVICE TIME: 11:42 AM PRIMARY CARE PHYSICIAN: Ana Casiano MD SUBJECTIVE CHIEF COMPLAINT: follow up after EGD HISTORY OF PRESENT ILLNESS: Mr. Santana is a 73 year old male who is well-known to me who presents for follow up after recent EGD. I last saw him in clinic on 08/28/23 at which time he was endorsing vocal hoarseness and chest discomfort and chronic thrush. He then underwent EGD on 09/24/23 which demonstrated 2 cm Anthony's esophagus and a small recurrent sliding 3 cm hiatal hernia with intact Toupet Fundoplication. UGI on 11/06/23 demonstrated no hernia and no abnormality. Today the patient endorses feeling better with resolution of most of his symptoms. He believes that most of his vocal hoarseness and chest discomfort is due to chronic sinus drainage. While on sinus medication these symptoms all resolved. Workup: - EGD (Nate 09/24/23): Anthony's esophagus. Small sliding hiatal hernia - Pathology: Esophagus, random, biopsy: Squamous epithelium with minimal chronic inflammation. Special stain for PAS/D negative for fungal elements. Stomach, biopsy: - Mild chronic gastritis. Immunohistochemical stain for Helicobacter is negative for Helicobacter pylori-like for microorganisms - UGI (10/2023): Normal caliber of the esophagus. Contrast freely flows through the esophagus into the stomach. No hiatal hernia. No obvious mass. No stricture. Contrast freely flows through the pylorus into the duodenum. 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 Gill COLONOSCOPY 01/18/2015 EGD 01/18/2015 EGD WITH BIOPSY(S) 12/22/2022 medium hiatal hernia; Anthony's without dysplasia; Dr. Gill EGD WITH BIOPSY(S) 09/24/2023 3 cm recurrent hiatal hernia; Dr. Sullivan ESOPHAGEAL MANOMETRY 03/13/2023 Dr. Sullivan EXTENSIVE JAW SURGERY INGUINAL HERNIA REPAIR HX Left 10/11/1979 open LAPS RPR PARAESPHGL HRNA INCL FUNDPLSTY W/MESH 05/12/2023 [facility]; Dr. Sullivan NEPHRECTOMY PARTIAL Left 2020 VASECTOMY UNI/BI SPX W/POSTOP SEMEN EXAMS FAMILY HISTORY: FAMILY HISTORY Problem Relation Age of Onset Allergies Mother Diabetes Mother Hypertension Mother Stroke Mother Coronary Artery Disease Father 60 [place] x 3 Blood Disease Father Heart Father SOCIAL HISTORY: Social History Tobacco Use Smoking status: Never Smokeless tobacco: Never Vaping Use Vaping status: Never Used Substance Use Topics Alcohol use: Yes Comment: [id number]-5-6 times monthly Drug use: No MEDICATIONS: Current Outpatient Medications Medication Sig dilTIAZem (CARDIZEM) 60 mg tablet Take 1 tablet by mouth every 12 hours. ergocalciferol 50,000 unit capsule (VITAMIN D2, DRISDOL) Take 1 capsule by mouth one time a week. allopurinol (ZYLOPRIM) 100 mg tablet Take 200 mg by mouth once daily. loratadine (CLARITIN) 10 mg tablet Take 10 mg by mouth as needed for cold/allergy symptoms. nystatin (MYCOSTATIN) 100,000 unit/mL suspension swish and spit 1 ml BY MOUTH FOUR TIMES DAILY for 1 minute famotidine (PEPCID) 20 mg tablet Take 1 tablet by mouth every 12 hours. lisinopril (ZESTRIL) 20 mg tablet Take 1 tablet by mouth every 12 hours. hydrochlorothiazide 12.5 mg tablet Take 12.5 mg by mouth once daily. Two tablets No current facility-administered medications for this visit. ALLERGIES: ALLERGIES Allergen Reactions Corticosteroids (Gl* Other: See Comments, Shortness of Breath Egg Derived Other: See Comments Fluconazole Intolerance, Shortness of Breath Levaquin [Levofloxa* Rash Milk Containing Pro* Diarrhea Omeprazole Itching Penicillins Swelling swelling of tongue Protonix [Pantopraz* Itching Steroids [Betametha* Swelling Tongue swelling Uloric [Febuxostat] Rash COMPLETE REVIEW OF SYSTEMS: Review of Systems All other systems reviewed and are negative. OBJECTIVE PHYSICAL EXAM: BP 122/60 Pulse 65 Ht 5' 10" (1.78m) Wt 192 lb (87.1kg) BMI 27.55 kg/(m^2). Physical Exam Vitals reviewed. Constitutional: Appearance: Normal appearance. HENT: Head: Normocephalic and atraumatic. Nose: Nose normal. Eyes: General: No scleral icterus. Extraocular Movements: Extraocular movements intact. Conjunctiva/sclera: Conjunctivae normal. Pupils: Pupils are equal, round, and reactive to light. Cardiovascular: Rate and Rhythm: Normal rate. Pulmonary: Effort: Pulmonary effort is normal. No respiratory distress. Skin: General: Skin is warm and dry. Neurological: Mental Status: He is alert and oriented to person, place, and time. Psychiatric: Mood and Affect: Mood normal. Behavior: Behavior normal. DATA: Diagnostic tests reviewed for today's visit: EMR reviewed Plan ASSESSMENT AND PLAN Maria Luz Santana II is a 73 year old male with a PMH as noted above who presents in follow up after PEH repair with Toupet fundoplication. 1. Status post repair of paraesophageal diaphragmatic hernia - ICD9: V45.89, ICD10: Z98.890, Z87.19 (primary diagnosis) - We reviewed his recent testing and imaging together - no abnormality noted on UGI and perhaps a small sliding hernia on EGD, but his symptoms of GERD have completely resolved off of all anti-reflux medications. He does believe that most of his symptoms of vocal hoarseness and chest discomfort are secondary to sinus drainage and he is working with his PCP to find a medication that helps with sinusitis/sinus drainage - Discontinue all anti-reflux medications - since surgery he has lost weight, is eating more healthy, and due to weight loss he has now been able to decrease lisinopril dose and come off of HCTZ completely. 2. STEPHANY treated with BiPAP - ICD9: 327.23, ICD10: G47.33 - Continue nightly BiPAP use 3. 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 Service: ? Author Type: ? Type: Progress Notes Filed: 11/16/2023 09:10 Note Text: Appointment canceled. [facility] 09-29-2023 Telephone encounter Note Patient called in confused stating that he believed he was supposed to have a test done testing his stomach acid. This nurse reached out to Holly PARISI and she stated that that is the EGD Stafford test and not just the EGD. Patient made aware, but still wanted to check with provider about this. Bharati Oneal LPN [facility] Work Phone: 09-29-2023 Miscellaneous Notes Patient called in confused stating that he believed he was supposed to have a test done testing his stomach acid. This nurse reached out to Holly PARISI and she stated that that is the EGD Stafford test and not just the EGD. Patient made aware, but still wanted to check with provider about this. Bharati Oneal LPN documented in this encounter [facility] 09-24-2023 History and physical note Summary: PAT HISTORY AND PHYSICAL EXAMINATION SERVICE DATE: 09/24/2023 SERVICE TIME: 12:22 PM Diagnosis: Thrush of mouth and esophagus (HCC) (HCC) [B37.81, B37.0] Planned Procedure: EGD Planned Anesthetic: MAC PRIMARY CARE PHYSICIAN: Ana Casiano MD REASON FOR VISIT: The reason for this visit is to perform a comprehensive review of the patients past medical history, assess their current health status and obtain any additional testing required based on anesthesia guidelines. To assess and identify potential anesthesia problems, particularly those that may suggest potential complications or contraindications to the planned procedure. The patient has the following: ACTIVE PROBLEM LIST Pain in Thoracic Spine Pre-Op Examination Paraesophageal Hernia Tachyarrhythmia Migraine With Aura History of Kidney Cancer Stephany (Obstructive Sleep Apnea) Primary Hypertension Other Specified Anemias Subjective CHIEF COMPLAINT: Preoperative Examination HPI: Patient present to [facility] for the above procedure. Patient here for routine Upper GI Endoscopy screening. Patient has had a prior endoscopies. Here s/p repair of paraesophageal hernia. Patient denies any N/V/D or constipation. Notes upper abdominal pain and dysphagia of spit - notes that he has more mucus as of late 2/2 allergies. Denies any melena, hematochezia, or hematemesis. Patient denies any other problems at this time. Denies any family history of colon CA or other gastric CA. Patient agreed to planned procedure. METS: Climb a flight of stairs or walk up a hill (5.50 METs) Patient denies any CP/SOB with above activity. 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 Gill 01/18/2015: COLONOSCOPY 01/18/2015: EGD 12/22/2022: EGD WITH BIOPSY(S) Comment: medium hiatal hernia; Anthony's without dysplasia; Dr. Gill 03/13/2023: ESOPHAGEAL MANOMETRY Comment: Dr. Sullivan No date: EXTENSIVE JAW SURGERY 10/11/1979: INGUINAL HERNIA REPAIR HX; Left Comment: open 05/12/2023: LAPS RPR PARAESPHGL HRNA INCL FUNDPLSTY W/MESH Comment: Toupet; Dr. Sullivan No date: NEPHRECTOMY PARTIAL; Left Comment: 2020 No date: VASECTOMY UNI/BI SPX W/POSTOP SEMEN EXAMS FAMILY HISTORY Problem Relation Age of Onset Allergies Mother Diabetes Mother Hypertension Mother Stroke Mother Coronary Artery Disease Father 60 [place] x 3 Blood Disease Father Heart Father SOCIAL HISTORY: Social History Tobacco Use Smoking status: Never Smokeless tobacco: Never Vaping Use Vaping Use: Never used Substance Use Topics Alcohol use: Yes Comment: qrhgqyrtus-9-3 times monthly Drug use: No Prior to Admission medications as of 09/24/23 1314 Medication Sig Last Dose Taking dilTIAZem (CARDIZEM) 60 mg tablet Take 1 tablet by mouth every 12 hours. 09/24/2023 Yes nystatin (MYCOSTATIN) 100,000 unit/mL suspension swish and spit 1 ml BY MOUTH FOUR TIMES DAILY for 1 minute famotidine (PEPCID) 20 mg tablet Take 1 tablet by mouth every 12 hours. lisinopril (ZESTRIL) 20 mg tablet Take 1 tablet by mouth every 12 hours. ergocalciferol 50,000 unit capsule (VITAMIN D2, DRISDOL) Take 1 capsule by mouth one time a week. 09/22/2023 allopurinol (ZYLOPRIM) 100 mg tablet Take 200 mg by mouth once daily. loratadine (CLARITIN) 10 mg tablet Take 10 mg by mouth as needed for cold/allergy symptoms. 09/22/2023 hydrochlorothiazide 12.5 mg tablet Take 12.5 mg by mouth once daily. Two tablets No medication comments found. ALLERGIES Allergen Reactions Corticosteroids (Gl* Other: See Comments, Shortness of Breath Egg Derived Other: See Comments Fluconazole Intolerance, Shortness of Breath Levaquin [Levofloxa* Rash Milk Containing Pro* Diarrhea Omeprazole Itching Penicillins Swelling swelling of tongue Protonix [Pantopraz* Itching Steroids [Betametha* Swelling Tongue swelling Uloric [Febuxostat] Rash REVIEW OF SYSTEMS: PAIN ASSESSMENT: Pain Pain Level: 0 Pain Assessment: Assessment Tool: Verbal (Numeric Rating or Visual Analog Scale) General: Denies fever, chills, and unexpected weight change. Neuro: Denies headaches. Denies h/o CVA and seizures. Respiratory: Denies SOB. Denies h/o COPD and Asthma. Cardiovascular: Denies CP and palpitations. GI: See HPI. : Denies dysuria, hematuria, and increased urinary frequency. Endocrine: No history of diabetes or thyroid conditions. Hematology: Denies history of bleeding or clotting disorder. No known autoimmune disorders. Musculoskeletal: Denies back and joint pain. Skin: Denies open sores and rashes. Objective PHYSICAL EXAM: VITALS: BP 141/74 Pulse 49 Temp (Src) 97.1 (Temporal) Resp 17 SpO2 99% O2 Therapy: Room Air See nursing flowsheet General: NAD. Cooperative. Skin: Skin is warm, no rashes, and no open sores. HEENT: Normocephalic. Cardiovascular: Normal S1 & S2. No murmur. Lungs: CTA Bilaterally. No respiratory distress. Abdomen: Soft. Pos BS Extremities: No edema. Neurological: Alert and oriented to person, place, and time. Pulses: radial pulses +2 Diagnostic tests reviewed for today's visit: Lab Value Units Date High Low HB 12.0 g/dL 05/13/2023 17.0 13.0 HCT 35.6 % 05/13/2023 51.0 39.0 WBC 8.00 k/uL 05/13/2023 11.00 3.70 PLT 146 k/uL 05/13/2023 400 150 NA 138 mmol/L 05/13/2023 144 136 K 4.1 mmol/L 05/13/2023 5.1 3.7 GLUC 110 mg/dL 05/13/2023 99 74 BUN 22 mg/dL 05/13/2023 24 9 CREAT 1.06 mg/dL 05/13/2023 1.22 0.73 PTSEC No results within date range. INR No results within date range. APTT No results within date range. ALT 26 U/L 04/06/2023 54 10 AST 25 U/L 04/06/2023 40 14 TBILI 0.6 mg/dL 04/06/2023 1.3 0.2 TSH No results within date range. Lab Value Units Date High Low HCGQT No results within date range. UHCG No results within date range. HCG, BODY* No results within date range. Lab Value Units Date High Low ABORHD No results within date range. ABSCREEN No results within date range. No results found for: "HBA1C" Assessment/Plan Patient has the following medical conditions; Problem List Items Addressed This Visit Neurology Migraine with aura Current Assessment & Plan Managed by PCP. Ubrelvy prn. Cardiovascular Tachyarrhythmia Current Assessment & Plan Follows with Dr. Klein. On diltiazem. Primary hypertension Current Assessment & Plan Off HCTZ. Is restarting lisinopril after briefly being off. Pulmonary STEPHANY (obstructive sleep apnea) Current Assessment & Plan On bipap Oncology History of kidney cancer Current Assessment & Plan Noted. Other Pre-op examination - Primary Current Assessment & Plan See note for medical conditions which may affect familia-operative course that were addressed at today's visit. Other Visit Diagnoses Thrush of mouth and esophagus (HCC) (HCC) Relevant Orders EGD DIAGNOSTIC ANESTHESIA FINDINGS: Significant Anesthesia Considerations: None I spent a total of 25 minutes on the date of the service which included preparing to see the patient, [id number] patient care, completing clinical documentation, obtaining and/or reviewing separately obtained history, performing a medically appropriate examination, counseling and educating the patient/family/caregiver, and ordering medications, tests, or procedures. Instructions Given to Patient: Patient given verbal preop instructions and voices comprehension and compliance. SIGNATURE: DEEP Das PATIENT NAME: Maria Luz Santana II DATE: September 24, 2023 TIME: 12:22 PM PAGER/CONTACT #: ' [facility] 09-24-2023 History and physical note Summary: PAT HISTORY AND PHYSICAL EXAMINATION SERVICE DATE: 09/24/2023 SERVICE TIME: 12:22 PM Diagnosis: Thrush of mouth and esophagus (HCC) (HCC) [B37.81, B37.0] Planned Procedure: EGD Planned Anesthetic: MAC PRIMARY CARE PHYSICIAN: Ana Casiano MD REASON FOR VISIT: The reason for this visit is to perform a comprehensive review of the patients past medical history, assess their current health status and obtain any additional testing required based on anesthesia guidelines. To assess and identify potential anesthesia problems, particularly those that may suggest potential complications or contraindications to the planned procedure. The patient has the following: ACTIVE PROBLEM LIST Pain in Thoracic Spine Pre-Op Examination Paraesophageal Hernia Tachyarrhythmia Migraine With Aura History of Kidney Cancer Stephany (Obstructive Sleep Apnea) Primary Hypertension Other Specified Anemias Subjective CHIEF COMPLAINT: Preoperative Examination HPI: Patient present to [facility] for the above procedure. Patient here for routine Upper GI Endoscopy screening. Patient has had a prior endoscopies. Here s/p repair of paraesophageal hernia. Patient denies any N/V/D or constipation. Notes upper abdominal pain and dysphagia of spit - notes that he has more mucus as of late 2/2 allergies. Denies any melena, hematochezia, or hematemesis. Patient denies any other problems at this time. Denies any family history of colon CA or other gastric CA. Patient agreed to planned procedure. METS: Climb a flight of stairs or walk up a hill (5.50 METs) Patient denies any CP/SOB with above activity. 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 Gill 01/18/2015: COLONOSCOPY 01/18/2015: EGD 12/22/2022: EGD WITH BIOPSY(S) Comment: medium hiatal hernia; Anthony's without dysplasia; Dr. Gill 03/13/2023: ESOPHAGEAL MANOMETRY Comment: Dr. Sullivan No date: EXTENSIVE JAW SURGERY 10/11/1979: INGUINAL HERNIA REPAIR HX; Left Comment: open 05/12/2023: LAPS RPR PARAESPHGL HRNA INCL FUNDPLSTY W/MESH Comment: Toupet; Dr. Sullivan No date: NEPHRECTOMY PARTIAL; Left Comment: 2020 No date: VASECTOMY UNI/BI SPX W/POSTOP SEMEN EXAMS FAMILY HISTORY Problem Relation Age of Onset Allergies Mother Diabetes Mother Hypertension Mother Stroke Mother Coronary Artery Disease Father 60 [place] x 3 Blood Disease Father Heart Father SOCIAL HISTORY: Social History Tobacco Use Smoking status: Never Smokeless tobacco: Never Vaping Use Vaping Use: Never used Substance Use Topics Alcohol use: Yes Comment: wngwdeause-4-0 times monthly Drug use: No Prior to Admission medications as of 09/24/23 1314 Medication Sig Last Dose Taking dilTIAZem (CARDIZEM) 60 mg tablet Take 1 tablet by mouth every 12 hours. 09/24/2023 Yes nystatin (MYCOSTATIN) 100,000 unit/mL suspension swish and spit 1 ml BY MOUTH FOUR TIMES DAILY for 1 minute famotidine (PEPCID) 20 mg tablet Take 1 tablet by mouth every 12 hours. lisinopril (ZESTRIL) 20 mg tablet Take 1 tablet by mouth every 12 hours. ergocalciferol 50,000 unit capsule (VITAMIN D2, DRISDOL) Take 1 capsule by mouth one time a week. 09/22/2023 allopurinol (ZYLOPRIM) 100 mg tablet Take 200 mg by mouth once daily. loratadine (CLARITIN) 10 mg tablet Take 10 mg by mouth as needed for cold/allergy symptoms. 09/22/2023 hydrochlorothiazide 12.5 mg tablet Take 12.5 mg by mouth once daily. Two tablets No medication comments found. ALLERGIES Allergen Reactions Corticosteroids (Gl* Other: See Comments, Shortness of Breath Egg Derived Other: See Comments Fluconazole Intolerance, Shortness of Breath Levaquin [Levofloxa* Rash Milk Containing Pro* Diarrhea Omeprazole Itching Penicillins Swelling swelling of tongue Protonix [Pantopraz* Itching Steroids [Betametha* Swelling Tongue swelling Uloric [Febuxostat] Rash REVIEW OF SYSTEMS: PAIN ASSESSMENT: Pain Pain Level: 0 Pain Assessment: Assessment Tool: Verbal (Numeric Rating or Visual Analog Scale) General: Denies fever, chills, and unexpected weight change. Neuro: Denies headaches. Denies h/o CVA and seizures. Respiratory: Denies SOB. Denies h/o COPD and Asthma. Cardiovascular: Denies CP and palpitations. GI: See HPI. : Denies dysuria, hematuria, and increased urinary frequency. Endocrine: No history of diabetes or thyroid conditions. Hematology: Denies history of bleeding or clotting disorder. No known autoimmune disorders. Musculoskeletal: Denies back and joint pain. Skin: Denies open sores and rashes. Objective PHYSICAL EXAM: VITALS: BP 141/74 Pulse 49 Temp (Src) 97.1 (Temporal) Resp 17 SpO2 99% O2 Therapy: Room Air See nursing flowsheet General: NAD. Cooperative. Skin: Skin is warm, no rashes, and no open sores. HEENT: Normocephalic. Cardiovascular: Normal S1 & S2. No murmur. Lungs: CTA Bilaterally. No respiratory distress. Abdomen: Soft. Pos BS Extremities: No edema. Neurological: Alert and oriented to person, place, and time. Pulses: radial pulses +2 Diagnostic tests reviewed for today's visit: Lab Value Units Date High Low HB 12.0 g/dL 05/13/2023 17.0 13.0 HCT 35.6 % 05/13/2023 51.0 39.0 WBC 8.00 k/uL 05/13/2023 11.00 3.70 PLT 146 k/uL 05/13/2023 400 150 NA 138 mmol/L 05/13/2023 144 136 K 4.1 mmol/L 05/13/2023 5.1 3.7 GLUC 110 mg/dL 05/13/2023 99 74 BUN 22 mg/dL 05/13/2023 24 9 CREAT 1.06 mg/dL 05/13/2023 1.22 0.73 PTSEC No results within date range. INR No results within date range. APTT No results within date range. ALT 26 U/L 04/06/2023 54 10 AST 25 U/L 04/06/2023 40 14 TBILI 0.6 mg/dL 04/06/2023 1.3 0.2 TSH No results within date range. Lab Value Units Date High Low HCGQT No results within date range. UHCG No results within date range. HCG, BODY* No results within date range. Lab Value Units Date High Low ABORHD No results within date range. ABSCREEN No results within date range. No results found for: "HBA1C" Assessment/Plan Patient has the following medical conditions; Problem List Items Addressed This Visit Neurology Migraine with aura Current Assessment & Plan Managed by PCP. Ubrelvmaría prn. Cardiovascular Tachyarrhythmia Current Assessment & Plan Follows with Dr. Klein. On diltiazem. Primary hypertension Current Assessment & Plan Off HCTZ. Is restarting lisinopril after briefly being off. Pulmonary STEPHANY (obstructive sleep apnea) Current Assessment & Plan On bipap Oncology History of kidney cancer Current Assessment & Plan Noted. Other Pre-op examination - Primary Current Assessment & Plan See note for medical conditions which may affect familia-operative course that were addressed at today's visit. Other Visit Diagnoses Thrush of mouth and esophagus (HCC) (HCC) Relevant Orders EGD DIAGNOSTIC ANESTHESIA FINDINGS: Significant Anesthesia Considerations: None I spent a total of 25 minutes on the date of the service which included preparing to see the patient, [id number] patient care, completing clinical documentation, obtaining and/or reviewing separately obtained history, performing a medically appropriate examination, counseling and educating the patient/family/caregiver, and ordering medications, tests, or procedures. Instructions Given to Patient: Patient given verbal preop instructions and voices comprehension and compliance. SIGNATURE: DEEP Das PATIENT NAME: Maria Luz Santana II DATE: September 24, 2023 TIME: 12:22 PM PAGER/CONTACT #: ' documented in this encounter [facility] 09-07-2023 Telephone encounter Note EGD scheduled for 09/24/2023 at 3:00pm. Prep/instructions given to patient at checkout. Snapboard updated. Bharati Oneal LPN [facility] Work Phone: 09-07-2023 Miscellaneous Notes EGD scheduled for 09/24/2023 at 3:00pm. Prep/instructions given to patient at checkout. [employer] updated. Bharati Oneal LPN documented in this encounter [facility] 09-04-2023 Telephone encounter Note Called patient back and left voicemail requesting return call. Bharati Oneal LPN [facility] Work Phone: 09-04-2023 Miscellaneous Notes Called patient back and left voicemail requesting return call. Bharati Oneal LPN documented in this encounter [facility] 09-01-2023 Telephone encounter Note LVM for patient to scheduled follow up appointment for EGD - requested patient call back to schedule appointment. [email or web address] message sent to patient. [facility] 09-01-2023 Miscellaneous Notes LVM for patient to scheduled follow up appointment for EGD - requested patient call back to schedule appointment. MyChart message sent to patient. documented in this encounter [facility] 08-31-2023 Telephone encounter Note Patient called to schedule EGD and follow up. Please call to schedule patient EGD and forward to schedule follow up. [facility] 08-31-2023 Miscellaneous Notes Patient called to schedule EGD and follow up. Please call to schedule patient EGD and forward to schedule follow up. documented in this encounter [facility] 08-31-2023 Telephone encounter Note VM received regarding patient wanting to scheduling an EGD and a follow up appointment - LVM for patient to call back to schedule an appointment. [email or web address] message sent to patient. [facility] 08-31-2023 Miscellaneous Notes VM received regarding patient wanting to scheduling an EGD and a follow up appointment - LVM for patient to call back to schedule an appointment. MyChart message sent to patient. documented in this encounter [facility] 08-28-2023 Telephone encounter Note Attempted to call patient to schedule for EGD. Left voicemail to return. Bharati Oneal LPN [facility] Work Phone: 08-28-2023 Miscellaneous Notes Attempted to call patient to schedule for EGD. Left voicemail to return. Bharati Oneal LPN documented in this encounter [facility] 08-28-2023 Note HNO ID: [id number] Author: RUTH SULLIVAN MD Service: ? Author Type: Physician Type: Progress Notes Filed: 08/28/2023 16:02 Note Text: SURGICAL SERVICES HISTORY AND PHYSICAL EXAMINATION SERVICE DATE: 08/28/2023 SERVICE TIME: 3:43 PM PRIMARY CARE PHYSICIAN: Ana Casiano MD SUBJECTIVE CHIEF COMPLAINT: follow up for 3 months follow up after Toupet HISTORY OF PRESENT ILLNESS: Mr. Santana is a 72 year old male is well known to me who presents for follow up in clinic after undergoing lap PEHR with Toupet fundoplication and mesh placement on 05/12/23. He states that he has been doing well overall aside from getting Thrush around 06/09/23. He was started on nystatin and this cleared up. After this he then developed esophageal thrush. He states that today is his last dose of fluconazole and he believes the thrush is still present. He describes the sensation of middle chest pain when he eats too much/a larger meal than normal. He states that as long as he chops his food up well he has no difficulty swallowing. He also reports new hoarseness. He has been off of famotidine. He does not believe his symptoms to be consistent with heartburn. He did try to take famotidine several days, but he did not see any resolution of symptoms. 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 Gill COLONOSCOPY 01/18/2015 EGD 01/18/2015 EGD WITH BIOPSY(S) 12/22/2022 medium hiatal hernia; Anthony's without dysplasia; Dr. Gill ESOPHAGEAL MANOMETRY 03/13/2023 Dr. Sullivan EXTENSIVE JAW SURGERY INGUINAL HERNIA REPAIR HX Left 10/11/1979 open LAPS RPR PARAESPHGL HRNA INCL FUNDPLSTY W/MESH 05/12/2023 Toupet; Dr. Sullivan NEPHRECTOMY PARTIAL Left 2020 VASECTOMY UNI/BI SPX W/POSTOP SEMEN EXAMS FAMILY HISTORY: FAMILY HISTORY Problem Relation Age of Onset Allergies Mother Diabetes Mother Hypertension Mother Stroke Mother Coronary Artery Disease Father 60 [place] x 3 Blood Disease Father Heart Father SOCIAL HISTORY: Social History Tobacco Use Smoking status: Never Smokeless tobacco: Never Vaping Use Vaping Use: Never used Substance Use Topics Alcohol use: Yes Comment: [id number] times monthly Drug use: No MEDICATIONS: Current Outpatient Medications Medication Sig nystatin (MYCOSTATIN) 100,000 unit/mL suspension swish and spit 1 ml BY MOUTH FOUR TIMES DAILY for 1 minute dilTIAZem (CARDIZEM) 60 mg tablet Take 1 tablet by mouth every 12 hours. ergocalciferol 50,000 unit capsule (VITAMIN D2, DRISDOL) Take 1 capsule by mouth one time a week. allopurinol (ZYLOPRIM) 100 mg tablet Take 200 mg by mouth once daily. loratadine (CLARITIN) 10 mg tablet Take 10 mg by mouth as needed for cold/allergy symptoms. famotidine (PEPCID) 20 mg tablet Take 1 tablet by mouth every 12 hours. lisinopril (ZESTRIL) 20 mg tablet Take 1 tablet by mouth every 12 hours. hydrochlorothiazide 12.5 mg tablet Take 12.5 mg by mouth once daily. Two tablets No current facility-administered medications for this visit. ALLERGIES: ALLERGIES Allergen Reactions Corticosteroids (Gl* Other: See Comments, Shortness of Breath Egg Derived Other: See Comments Fluconazole Intolerance, Shortness of Breath Levaquin [Levofloxa* Rash Milk Containing Pro* Diarrhea [...] production, shortness of breath and wheezing. Cardiovascular: Positive for chest pain. Negative for palpitations, orthopnea, leg swelling and PND. Gastrointestinal: Negative for abdominal pain, blood in stool, constipation, diarrhea, heartburn, nausea and vomiting. Genitourinary: Negative for dysuria, frequency, hematuria and urgency. Musculoskeletal: Negative for back pain, falls, joint pain, myalgias and neck pain. Skin: Negative for itching and rash. Neurological: Negative for dizziness, speech change, focal weakness, seizures, loss of consciousness, weakness and headaches. Endo/Heme/Allergies: Does not bruise/bleed easily. Psychiatric/Behavioral: Negative for depression, hallucinations, memory loss, (more content not included)... [facility] 08-28-2023 History of Present illness Narrative SURGICAL SERVICES HISTORY AND PHYSICAL EXAMINATION SERVICE DATE: 08/28/2023 SERVICE TIME: 3:43 PM PRIMARY CARE PHYSICIAN: Ana Casiano MD SUBJECTIVE CHIEF COMPLAINT: follow up for 3 months follow up after Toupet HISTORY OF PRESENT ILLNESS: Mr. Santana is a 72 year old male is well known to me who presents for follow up in clinic after undergoing lap PEHR with Toupet fundoplication and mesh placement on 05/12/23. He states that he has been doing well overall aside from getting Thrush around 06/09/23. He was started on nystatin and this cleared up. After this he then developed esophageal thrush. He states that today is his last dose of fluconazole and he believes the thrush is still present. He describes the sensation of middle chest pain when he eats too much/a larger meal than normal. He states that as long as he chops his food up well he has no difficulty swallowing. He also reports new hoarseness. He has been off of famotidine. He does not believe his symptoms to be consistent with heartburn. He did try to take famotidine several days, but he did not see any resolution of symptoms. 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 Gill COLONOSCOPY 01/18/2015 EGD 01/18/2015 EGD WITH BIOPSY(S) 12/22/2022 medium hiatal hernia; Anthony's without dysplasia; Dr. Gill ESOPHAGEAL MANOMETRY 03/13/2023 Dr. Sullivan EXTENSIVE JAW SURGERY INGUINAL HERNIA REPAIR HX Left 10/11/1979 open LAPS RPR PARAESPHGL HRNA INCL FUNDPLSTY W/MESH 05/12/2023 Toupet; Dr. Sullivan NEPHRECTOMY PARTIAL Left 2020 VASECTOMY UNI/BI SPX W/POSTOP SEMEN EXAMS FAMILY HISTORY: FAMILY HISTORY Problem Relation Age of Onset Allergies Mother Diabetes Mother Hypertension Mother Stroke Mother Coronary Artery Disease Father 60 [place] x 3 Blood Disease Father Heart Father SOCIAL HISTORY: Social History Tobacco Use Smoking status: Never Smokeless tobacco: Never Vaping Use Vaping Use: Never used Substance Use Topics Alcohol use: Yes Comment: [id number] times monthly Drug use: No MEDICATIONS: Current Outpatient Medications Medication Sig nystatin (MYCOSTATIN) 100,000 unit/mL suspension swish and spit 1 ml BY MOUTH FOUR TIMES DAILY for 1 minute dilTIAZem (CARDIZEM) 60 mg tablet Take 1 tablet by mouth every 12 hours. ergocalciferol 50,000 unit capsule (VITAMIN D2, DRISDOL) Take 1 capsule by mouth one time a week. allopurinol (ZYLOPRIM) 100 mg tablet Take 200 mg by mouth once daily. loratadine (CLARITIN) 10 mg tablet Take 10 mg by mouth as needed for cold/allergy symptoms. famotidine (PEPCID) 20 mg tablet Take 1 tablet by mouth every 12 hours. lisinopril (ZESTRIL) 20 mg tablet Take 1 tablet by mouth every 12 hours. hydrochlorothiazide 12.5 mg tablet Take 12.5 mg by mouth once daily. Two tablets No current facility-administered medications for this visit. ALLERGIES: ALLERGIES Allergen Reactions Corticosteroids (Gl* Other: See Comments, Shortness of Breath Egg Derived Other: See Comments Fluconazole Intolerance, Shortness of Breath Levaquin [Levofloxa* Rash Milk Containing Pro* Diarrhea [...] production, shortness of breath and wheezing. Cardiovascular: Positive for chest pain. Negative for palpitations, orthopnea, leg swelling and PND. Gastrointestinal: Negative for abdominal pain, blood in stool, constipation, diarrhea, heartburn, nausea and vomiting. Genitourinary: Negative for dysuria, frequency, hematuria and urgency. Musculoskeletal: Negative for back pain, falls, joint pain, myalgias and neck pain. Skin: Negative for itching and rash. Neurological: Negative for dizziness, speech change, focal weakness, seizures, loss of consciousness, weakness and headaches. Endo/Heme/Allergies: Does not bruise/bleed easily. Psychiatric/Behavioral: Negative for depression, hallucinations, memory loss, substance abuse and suicidal ideas. The patient is not nervous/anxious and does not have insomnia. OBJECTIVE PHYSICAL EXAM: Ht 5' 10" (1.78m) Wt 185 lb (83.9kg) BMI 26.54 kg/(m^2). Physical Exam Constitutional: Appearance: Normal appearance. HENT: Head: Normocephalic and atraumatic. Nose: Nose normal. Pulmonary: Effort: Pulmonary effort is normal. Skin: Coloration: Skin is not jaundiced or pale. Neurological: Mental Status: He is alert and oriented to person, place, and time. Psychiatric: Behavior: Behavior normal. DATA: Diagnostic tests reviewed for today's visit: EMR reviewed Plan ASSESSMENT AND PLAN Maria Luz Santana II is a 72 year old male with a PMH as noted above who presents today after lap PEHR with Toupet fundoplication. ASSESSMENT/PLAN: 1. Status post repair of paraesophageal diaphragmatic hernia - ICD9: V45.89, ICD10: Z98.890, Z87.19 (primary diagnosis) - Has vocal hoarseness and chest discomfort with larger meals/eating too much. Has undergone multiple rounds of treatment of Thrust without successful resolution. I am recommending an EGD to assess for recurrence and to also test esophageal mucosa for zander/infection/abnormality 2. 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 STEPHANY treated with BiPAP - ICD9: 327.23, ICD10: G47.33 - Continue use of nightly BiPAP 4. Thrush of mouth and esophagus (HCC) (HCC) - ICD9: 112.84, 112.0, ICD10: B37.81, B37.0 - Has had multiple courses of therapy and believes they have not resulted in symptom resolution - will obtain esophageal biopsies - EGD DIAGNOSTIC Today's visit is a virtual visit required by ongoing precautions to prevent spread and transmission of COVID19 during the current pandemic. The visit was in lieu of an in person visit due to these restrictions and was done virtually as approved currently by the [facility] Government which has transiently waved [facility] requirements. The patient agreed to this virtual visit Medical Decision Making: Problems: Moderate: 2+ stable chronic illnesses and New problem with uncertain prognosis Data: Unique test result(s) reviewed: 3+ Discussed management or test w/ external physician/QHCP/source Risk: Moderate: Drug management Medical Decision Making Level: 4 - Moderate SIGNATURE: Ruth Sullivan MD PATIENT NAME: Maria Luz Santana II DATE: August 28, 2023 TIME: 3:43 PM PAGER/CONTACT #: [id number] documented in this encounter [facility] 08-04-2023 Telephone encounter Note Patient called today to update us. Patient is s/p PEHR w/Toupet on 05/12/23. Patient complains of "acid reflux", describing it as "in the center of my chest. If I take a deep breath is it painful. It is pressure above my breast bone, feeling like stabbing pain when I inhale deeply. Before surgery I felt the acid in the back of my throat and up high in my chest." Patient stated he has been taking his Famotidine off and on and denies having any stabbing chest pain or pain on inhaling while he is on the Famotidine. "I really want to come off the Famotidine because I mentally foggy on it. Patient followed my last recommendation of removing milk, Fairlife milk and yogurt out of his diet. He has not noticed any improvement. He does not relate the stabbing chest pain to eating in general or eating any foods or liquids in particular, although he does admit if he eats too big of a meal he may get the chest pain. Patient is successfully eating meat as long as it is small, moist pieces. Patient reports he is eating 3 smaller meals/day and has cut back on his protein intake to 50-60 gm/day. Patient stated the only thing he has trouble swallowing is his diltiazem. I recommended that he try taking it with a teaspoon of applesauce or yogurt. Patient agreed to try it. Patient continues to sleep with his head of bed elevated at 45 degrees. Bernabe stated he woke up this morning with "acid reflux" as he described above. Patient does have environmental allergies and takes Sima every night. He also does a nasal rinse twice a day. He denies cough, but does have intermittent PND (post nasal drip). Patient does not sound nasally congested during our conversation. I told the patient that I don't know if this is acid reflux and since he describes it as "stabbing chest pain" I recommended that he make an appointment with his PCP (whom he has not seen since prior to surgery) to make sure we are not overlooking something, possibly musculoskeletal. Patient agreed with the plan. Patient has a video follow up appointment with Dr. Sullivan on 09/18/23. Edith Roque RN T [facility] 08-04-2023 Miscellaneous Notes Patient called today to update us. Patient is s/p PEHR w/Toupet on 05/12/23. Patient complains of "acid reflux", describing it as "in the center of my chest. If I take a deep breath is it painful. It is pressure above my breast bone, feeling like stabbing pain when I inhale deeply. Before surgery I felt the acid in the back of my throat and up high in my chest." Patient stated he has been taking his Famotidine off and on and denies having any stabbing chest pain or pain on inhaling while he is on the Famotidine. "I really want to come off the Famotidine because I mentally foggy on it. Patient followed my last recommendation of removing milk, Fairlife milk and yogurt out of his diet. He has not noticed any improvement. He does not relate the stabbing chest pain to eating in general or eating any foods or liquids in particular, although he does admit if he eats too big of a meal he may get the chest pain. Patient is successfully eating meat as long as it is small, moist pieces. Patient reports he is eating 3 smaller meals/day and has cut back on his protein intake to 50-60 gm/day. Patient stated the only thing he has trouble swallowing is his diltiazem. I recommended that he try taking it with a teaspoon of applesauce or yogurt. Patient agreed to try it. Patient continues to sleep with his head of bed elevated at 45 degrees. Bernabe stated he woke up this morning with "acid reflux" as he described above. Patient does have environmental allergies and takes Sima every night. He also does a nasal rinse twice a day. He denies cough, but does have intermittent PND (post nasal drip). Patient does not sound nasally congested during our conversation. I told the patient that I don't know if this is acid reflux and since he describes it as "stabbing chest pain" I recommended that he make an appointment with his PCP (whom he has not seen since prior to surgery) to make sure we are not overlooking something, possibly musculoskeletal. Patient agreed with the plan. Patient has a video follow up appointment with Dr. Sullivan on 09/18/23. Edith Roque RN documented in this encounter [facility] 07-03-2023 Telephone encounter Note I called Bernabe this morning an told him I left him a message at 4:30 on 06/30, again yesterday at 12:30 & 4:30. Bernabe said he thought it was odd he didn't hear from me because you always call me back. That's why I called Dr. Sullivan's office. Then my phone when I went to [employer] the call. They had to reset my phone to get it to work." I asked Bernabe for more detail about the message he left on Thursday stating he has heartburn again. Bernabe said "I've had twinges of heartburn here and there and then Thursday it really started to hurt around 3 pm. Before surgery the burning was in my throat and I would call it irritating but this burning was in the middle of my chest and it hurts. I went back on my famotidine twice a day and it much better." Patient denies the heartburn being related to eating or drinking. He also denies nate N/V, constipation or diarrhea. Patient's 24 hour diet recall: ~breakfast-oatmeal, prunes & 1 cup Fairlife milk ~snack-kamaljit crackers and 1 cup Fairlife milk ~Lunch-canned chicken w/veggie hand, green beans & protein shake ~snack-kamaljit crackers & 1 cup Fairlife milk ~Dinner-cod, [place] Lucian yogurt & green beans Bernabe said he has been moving his bowels every morning since he started adding the prunes to his oatmeal and added a stool softener every evening. Bernabe and I discussed his diet and came up with this new plan: ~stop drinking milk, but OK to eat yogurt & cheese ~continue taking the Famotidine twice a day ~Continue eating prunes & taking a daily stool softener Bernabe asked if he could decrease his famotidine to daily, as it causes him to get brain fog, which his PCP agreed it can cause in older adults. I asked him to stay on the Famotidine twice a day for a week and lets see if withholding the milk makes any difference. He agreed. We also discussed that he could decrease his protein intake to 60 gms/daily vs. 80 gms/day. Patient agreed to call me with any other questions. Edith Roque RN [facility] 07-03-2023 Miscellaneous Notes I called Bernabe this morning an told him I left him a message at 4:30 on 06/30, again yesterday at 12:30 & 4:30. Bernabe said he thought it was odd he didn't hear from me because you always call me back. That's why I called Dr. Sullivan's office. Then my phone when I went to [employer] the call. They had to reset my phone to get it to work." I asked Bernabe for more detail about the message he left on Thursday stating he has heartburn again. Bernabe said "I've had twinges of heartburn here and there and then Thursday it really started to hurt around 3 pm. Before surgery the burning was in my throat and I would call it irritating but this burning was in the middle of my chest and it hurts. I went back on my famotidine twice a day and it much better." Patient denies the heartburn being related to eating or drinking. He also denies nate N/V, constipation or diarrhea. Patient's 24 hour diet recall: ~breakfast-oatmeal, prunes & 1 cup Fairlife milk ~snack-kamaljit crackers and 1 cup Fairlife milk ~Lunch-canned chicken w/veggie hand, green beans & protein shake ~snack-kamaljit crackers & 1 cup Fairlife milk ~Dinner-cod, [place]ian yogurt & green beans Bernabe said he has been moving his bowels every morning since he started adding the prunes to his oatmeal and added a stool softener every evening. Bernabe and I discussed his diet and came up with this new plan: ~stop drinking milk, but OK to eat yogurt & cheese ~continue taking the Famotidine twice a day ~Continue eating prunes & taking a daily stool softener Bernabe asked if he could decrease his famotidine to daily, as it causes him to get brain fog, which his PCP agreed it can cause in older adults. I asked him to stay on the Famotidine twice a day for a week and lets see if withholding the milk makes any difference. He agreed. We also discussed that he could decrease his protein intake to 60 gms/daily vs. 80 gms/day. Patient agreed to call me with any other questions. Edith Roque RN Pt called to speak with Edith Roque RN about post-op symptoms. He states he was speaking with Dr. Sullivan last night, when his phone . Pt reports that his acid reflux symptoms are back, and uncomfortable. He reports this has been happening for the last 3-4 days, and wants to know if he should start taking pepcid again, or something else. Advised pt that I will forward his concern over to Edith Roque and Dr. Sullivan. Pt feels good otherwise, no further questions. Luis Underwood RN documented in this encounter [facility] 07-03-2023 Telephone encounter Note Pt called to speak with Edith Roque RN about post-op symptoms. He states he was speaking with Dr. Sullivan last night, when his phone . Pt reports that his acid reflux symptoms are back, and uncomfortable. He reports this has been happening for the last 3-4 days, and wants to know if he should start taking pepcid again, or something else. Advised pt that I will forward his concern over to Edith Roque and Dr. Sullivan. Pt feels good otherwise, no further questions. Luis Underwood RN [facility] 06-29-2023 Telephone encounter Note Patient called because he continues to have issues with constipation. Patient has been taking colace three times a day, drinking at least 70 oz/fluid/day, taking Miralax daily for the last 3 days. He has a hard stool yesterday after using an enema, but did not feel like he completed his bowel movement. "My belly got soft after the bowel movement yesterday but it is hard and distended again today." Patient had daily bowel movements before surgery. Patient's diet in the last 24 hours: Breakfast: oatmeal with cut up prunes Lunch #`:protein shake made w/Fairlife milk, [place] Lucian yogurt, greens and protein powder (split into 2 meals). Lunch#2 : canned chicken, apple, pear Dinner: canned tuna I told Bernabe he is doing everything correctly. His last colonoscopy was 2014 and was normal. I told him I would share this info with Dr. Sullivan and ask her for recommendations. Edith Roque RN [facility] 06-29-2023 Miscellaneous Notes Patient called because he continues to have issues with constipation. Patient has been taking colace three times a day, drinking at least 70 oz/fluid/day, taking Miralax daily for the last 3 days. He has a hard stool yesterday after using an enema, but did not feel like he completed his bowel movement. "My belly got soft after the bowel movement yesterday but it is hard and distended again today." Patient had daily bowel movements before surgery. Patient's diet in the last 24 hours: Breakfast: oatmeal with cut up prunes Lunch #`:protein shake made w/Fairlife milk, [place] Lucian yogurt, greens and protein powder (split into 2 meals). Lunch#2 : canned chicken, apple, pear Dinner: canned tuna I told Bernabe he is doing everything correctly. His last colonoscopy was 2014 and was normal. I told him I would share this info with Dr. Sullivan and ask her for recommendations. Edith Roque RN documented in this encounter [facility] 06-22-2023 Telephone encounter Note Patient called with complaints of constipation. He is only moving his bowels every 3 days with the assist of a suppository. He is passing hard stool . Patient denies taking any stool softeners or laxatives. Patient is either walking 40-50 minutes/day or riding his bike 40 minutes/day. He reports getting 80 grams of protein/day. We reviewed options and settled on Bernabe adding a daily stool softener, like Colace, and eating a few prunes daily. I also recommended that he take a dose of Miralax today to get things moving. Patient agreed with the plan. Patient still has thrush. His PCP prescribed Diflucan, but patient "had a reaction to it" so he was put on Nystatin, 100,000 units QID swish and spit, "but it's not working." I recommended to Bernabe that he make sure he is taking the Nystatin after meals and before bedtime and that he swallow the Nystatin not spit it out. Bernabe said his PCP did give him those instructions. Bernabe has an appointment with his PCP today about the thrush. I asked him to update me on his constipation in a week; he agreed. Edith Roque RN [facility] 06-22-2023 Miscellaneous Notes Patient called with complaints of constipation. He is only moving his bowels every 3 days with the assist of a suppository. He is passing hard stool . Patient denies taking any stool softeners or laxatives. Patient is either walking 40-50 minutes/day or riding his bike 40 minutes/day. He reports getting 80 grams of protein/day. We reviewed options and settled on Bernabe adding a daily stool softener, like Colace, and eating a few prunes daily. I also recommended that he take a dose of Miralax today to get things moving. Patient agreed with the plan. Patient still has thrush. His PCP prescribed Diflucan, but patient "had a reaction to it" so he was put on Nystatin, 100,000 units QID swish and spit, "but it's not working." I recommended to Bernabe that he make sure he is taking the Nystatin after meals and before bedtime and that he swallow the Nystatin not spit it out. Bernabe said his PCP did give him those instructions. Bernabe has an appointment with his PCP today about the thrush. I asked him to update me on his constipation in a week; he agreed. Edith Roque RN documented in this encounter [facility] 06-03-2023 Note HNO ID: [id number] Author: EDITH ROQUE RN Service: ? Author Type: Nurse Clinician Type: Progress Notes Filed: 06/03/2023 09:51 Note Text: Office visit after lap Toupet procedure on 05/12/23: Swallowing: denies any difficulty swallowing fluids, foods or pills. 24 hour diet recall: Breakfast: Maypo and Fairlife milk Lunch: Protein shake with [place] Lucian yogurt Dinner: 4 oz. Cod, green beans Patient eating/drinking 6 meals/day Voiding/color of urine: light in color Passing flatus: yes Moving bowels: formed stool every day for the last 2 days, finally feels less bloated and constipated Pain rating/use of medications: some lower abdominal cramping, not taking any pain medication Proton pump inhibitor: yes Inspection of incisions: per Dr. Sullivan Using incentive spirometer: Course of therapy completed. Patient reached pre-determined goal with incentive spirometer. Physical activity: walking 30 minutes daily Follow up appt confirmation: phone call from programmer developer in 6 weeks, follow up appointment with Dr. Sullivan in 3 months. I demonstrated standing up and holding hands overhead to release any food/medications that feel stuck. We discussed the need to return to a liquid diet for 48 hours if something gets stuck to allow time for any swelling at the EG junction to resolve. Patient acknowledged understanding. I verbally reviewed expanding the diet to include fish, cheese, mashed AND sweet potatoes. We discussed starting with one new food per meal. I reminded her that the fish needed to not be breaded or fried, but baked and moist. Patient denied any questions and I reinforced we are available if she has any questions. Edith Roque RN [facility] 06-03-2023 Note HNO ID: [id number] Author: RUTH SULLIVAN MD Service: ? Author Type: Physician Type: Progress Notes Filed: 06/03/2023 09:36 Note Text: SURGICAL SERVICES HISTORY AND PHYSICAL EXAMINATION SERVICE DATE: 06/03/2023 SERVICE TIME: 9:29 AM PRIMARY CARE PHYSICIAN: Ana Casiano MD SUBJECTIVE CHIEF COMPLAINT: follow up after hernia repair HISTORY OF PRESENT ILLNESS: Mr. Santana is a 72 year old male who is well known to me who presents for follow up in clinic after undergoing lap PEHR with Toupet fundoplication and mesh placement on 05/12/23. He presents today with his . He denies fever, chills, nausea, emesis, difficulty with oral intake, or diarrhea. He did initially have constipation, but this has resolved. He does have a lump at the 12-mm port site which is consistent on exam to a hematoma/seroma at the site of the fascial stitch. 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 Gill COLONOSCOPY 01/18/2015 EGD 01/18/2015 EGD WITH BIOPSY(S) 12/22/2022 medium hiatal hernia; Anthony's without dysplasia; Dr. Gill ESOPHAGEAL MANOMETRY 03/13/2023 Dr. Sullivan EXTENSIVE JAW SURGERY INGUINAL HERNIA REPAIR HX Left 10/11/1979 open LAPS RPR PARAESPHGL HRNA INCL FUNDPLSTY W/MESH 05/12/2023 Toupet; Dr. Sullivan NEPHRECTOMY PARTIAL Left 2020 VASECTOMY UNI/BI SPX W/POSTOP SEMEN EXAMS FAMILY HISTORY: FAMILY HISTORY Problem Relation Age of Onset Allergies Mother Diabetes Mother Hypertension Mother Stroke Mother Coronary Artery Disease Father 60 [place] x 3 Blood Disease Father Heart Father SOCIAL HISTORY: Social History Tobacco Use Smoking status: Never Smokeless tobacco: Never Vaping Use Vaping Use: Never used Substance Use Topics Alcohol use: Yes Comment: [id number]-3-8 times monthly Drug use: No MEDICATIONS: Current Outpatient Medications Medication Sig nystatin (MYCOSTATIN) 100,000 unit/mL suspension swish and spit 1 ml BY MOUTH FOUR TIMES DAILY for 1 minute dilTIAZem (CARDIZEM) 60 mg tablet Take 1 tablet by mouth every 12 hours. famotidine (PEPCID) 20 mg tablet Take 1 tablet by mouth every 12 hours. lisinopril (ZESTRIL) 20 mg tablet Take 1 tablet by mouth every 12 hours. ergocalciferol 50,000 unit capsule (VITAMIN D2, DRISDOL) Take 1 capsule by mouth one time a week. allopurinol (ZYLOPRIM) 100 mg tablet Take 200 mg by mouth once daily. loratadine (CLARITIN) 10 mg tablet Take 10 mg by mouth as needed for cold/allergy symptoms. hydrochlorothiazide 12.5 mg tablet Take 12.5 mg by mouth once daily. Two tablets No current facility-administered medications for this visit. ALLERGIES: ALLERGIES Allergen Reactions Corticosteroids (Gl* Other: See Comments, Shortness of Breath Egg Derived Other: See Comments Fluconazole Intolerance, Shortness of Breath Levaquin [Levofloxa* Rash Milk Containing Pro* Diarrhea [...] palpitations, orthopnea, leg swelling and PND. Gastrointestinal: Negative for abdominal pain, blood in stool, constipation, diarrhea, heartburn, nausea and vomiting. Genitourinary: Negative for dysuria, frequency, hematuria and urgency. Musculoskeletal: Negative for back pain, falls, joint pain, myalgias and neck pain. Skin: Negative for itching and rash. Neurological: Negative for dizziness, speech change, focal weakness, seizures, loss of consciousness, weakness and headaches. Endo/Heme/Allergies: Does not bruise/bleed easily. Psychiatric/Behavioral: Negative for depression, hallucinations, memory loss, substance abuse and suicidal ideas. The patient is not nervous/anxious and does not have insomnia. OBJECTIVE PHYSICAL EXAM: BP 112/67 Pulse 51 Ht 5' 10" (1.78m) Wt 194 lb (88.0kg) BMI 27.84 kg/(m2). Physical Exam Vitals reviewed. Constitutional: Appearance: Normal appearance. HENT: Head: Normocephalic a (more content not included)... [facility] 05-28-2023 Miscellaneous Notes Patient called and had a couple of questions as he enters his 3rd week post op. Patient stated that before surgery he had a lot of difficulty swallowing foods. He is starting to advance to soft foods like fish and canned fruit but is worried it will get stuck. I recommended that Bernabe start by pureeing these foods to make sure they go down. As he feels more comfortable and confident, he can start chewing his foods thoroughly and swallowing. Patient said that would make him more comfortable and agreed with the plan. Patient is scheduled to have his teeth cleaned on 06/03/23 and asked if that was OK. He will be 22 days post op and I agreed that should be OK. Edith Roque RN documented in this encounter [facility] 05-26-2023 Miscellaneous Notes Called Bernabe to let him know that per Dr. Sullivan, this is most likely a stitch that he is describing, and that his body should reabsorb it as he heals. Advised him if that there is any new pain, the area gets bigger or looks infected, to please let us know and to please send a picture. Bernabe agrees nd has no further questions or concerns at this time. Luis Underwood RN documented in this encounter [facility] 05-18-2023 Miscellaneous Notes Patient called and left a message this morning asking for a return call. When I returned his call Bernabe informed me that he had his DILT-XR 24 hour capsule changed to tablets that he was crushing and taking with water. He was having a hard time getting all the crushed tablet out of the glass so his pharmacist recommended that he quarter the tablets and swallow them. Bernabe has noticed his mouth and throat is sore and he has noticed a difference in his voice. Bernabe also reports a "acidy taste in my mouth". I asked Bernabe to go to a mirror, stick his tongue out and report what he sees. "Yeah, it looks weird, there is a white coating all over my tongue." I told him I suspect he may have thrush, from his symptoms and I will share that info with Dr. Sullivan. If she sends in a prescription to his [facility] pharmacy I will call him back. Patient stated he is drinking without difficulty, he has moved his bowels and is back to "being regular". Patient states his abdominal distension is gone and he has been doing his walking. I told him to keep up the good work. Bernabe said he is grateful that we offer follow up phone calls once the patient is out of the hospital. "It is really nice to be able to reach out to someone to make sure you are doing everything right." I told him it was my pleasure to help him recover. Edith Roque RN documented in this encounter [facility] 05-15-2023 Miscellaneous Notes Patient called concerned that he needs to thin out his protein shakes ([employer] brand) and sip small mouthfuls to get it down. I assured him this is normal during the initial phase of his recovery. Patient reports that water goes down without difficulty, but if he drinks a big mouthful or too quickly "if feels like it backs up. I get a little nauseated, but not to the point I need to throw up." I asked patient if he has moved his bowels yet and he replied no. He reports his abdomen is distended and firm and he is passing some flatus. Patient's , Ira, came to the phone and reported that Bernabe took 1 dose of Miralax initially when he was discharged home and then took another dose this morning. I told them both is was time for a different approach and recommended that Bernabe either use a Dulcolax suppository or a Fleets enema today. Patient agreed with the plan. Edith Roque RN documented in this encounter [facility] 05-14-2023 Miscellaneous Notes The Zofran pills that he was given are fine to swallow. They should not cause an issue with his fundoplication Called and spoke with and gave above message. She understood. Mary Beth Demarco MA The [facility] called in stating they were under the impression the Zofran was going to be quick dissolve but after they got it home they realized it was not. The is concerned that her may chock or have difficulty with the current Zofran and would prefer the quick dissolve Zofran called in if you could do that? documented in this encounter [facility] 05-13-2023 Miscellaneous Notes I called patient and spoke with both him and his , Ira, after hospital discharge home after lap Toupet procedure on 05/11/22: Swallowing: Patient states the liquids are going down slowly, but they are going down. Patient has had hiccups intermittently; I recommended he try so decaf tea or broth to see if the relaxed the hiccup. Voiding/color of urine: Instructed patient to sip liquids all day and to aim for his urine to be light in color like lemonade. Passing flatus: a little Moving bowels: no, instructed patient to take a dose of Miralax tomorrow; patient agreed Pain rating/use of medications: Patient denies pain. His picked up his prescription for Tramadol but is concerned about giving it to him as he seems very restless. Patient's last dose of Tramadol was on 05/12/23 at 2348 and his last dose of Tylenol was 05/13/23 at 0452. I recommended Bernabe use heat to his chest, neck and shoulders and to try a hot shower. Patient agreed. Inspection of incisions: skin glue intact Using incentive spirometer: Patient reports he can get incentive spirometer up to 2000 ml. I instructed him to continue using incentive spirometer for 10 breaths every hour while awake until he reaches his goal of 3000 ml. Patient agreed with the plan. Physical activity: Patient is ambulating without difficulty and climbing stairs at home. He asked if he could cut the grass and I said no. Patient's said they had talked about this and she will take care of the mowing. I reminded Bernabe of his physical restrictions of no lifting/pushing/pulling more than 10 lbs for 8 weeks. Follow up appt confirmation: 06/03/23. I explained that standing up and holding hands overhead to release any food/medications that feel stuck. We discussed the need to return to a liquid diet for 48 hours if something gets stuck to allow time for any swelling at the EG junction to resolve. Patient acknowledged understanding. I encouraged patient to call with any questions or concerns before his follow up appointment. Patient thanked me for the call. Edith Roque RN documented in this encounter [facility] 05-13-2023 Note HNO ID: [id number] Author: MAG NARAYAN RN Service: Care Management Author Type: Registered Nurse Type: Care Mgt Progress Note Filed: 05/13/2023 14:18 Note Text: CARE MANAGEMENT UTILIZATION REVIEW COMMITTEE CODE 44 (Admission Status Discrepancy Review) Admission Date: 05/12/2023 Patient's Initial Order is: Inpatient Date Received: May 13, 2023 Date Reviewed: May 13, 2023 Dr.Marita Sullivan, the practitioner responsible for the care of the patient, was consulted and concurs with the determinination made by the UR committee. Under the authority of the Utilization Management Committee, the Physician Advisor, Dr. Amy Ravi, has reviewed the medical record of the above patient. The following recommendation has been made by the Physician Advisor, based upon the current available medical information as of the date of this determination. The patient is appropriate for: Outpatient in a Bed/Extended Recovery Rationale for this decision: Lack of medical necessity for inpatient admission SIGNATURE: Mag Narayan RN PATIENT NAME: Maria Luz Santana II DATE: May 13, 2023 TIME: 2:18 PM Disclaimer: The information in this determination is to be used for utilization management purposes only. The information and recommendation is made pursuant to Medicare Hospital Conditions of Participation (442 CFR Part 482) and is neither a judgment nor an assessment with regard to the appropriateness or quality of the clinical care. Nothing in this document may be used to limit clinical services provided to the above named patient. This form should be used as one part of the process utilized to ensure compliance with [facility] policy regarding Inpatient Admission and Observation Services. The definitions of Inpatient and Observation used in making the determination above are those provided in Medicare Benefit Policy Manual Chapter 1, Section 1 and 10, Chapter 6, Section 20, and the Medicare Claims Processing Manual Chapter 1, Section 50.3 and Chapter 4, Section 290. This recommendation should be considered as only one factor in determining the patient's final level of service along with other pertinent documentation such as the treating physician's order as documented evidence of concurrence. [facility] 05-13-2023 Note HNO ID: [id number] Author: RUTH SULLIVAN MD Service: General Surgery Author Type: Resident Type: Progress Notes Filed: 05/13/2023 13:02 Note Text: Attestation signed by Ruth Sullivan MD at 05/13/2023 1:02 PM I saw and evaluated/examined the patient with the resident and personally participated in the brown components. I have reviewed the resident's note and discussed the case and management of the patient's care with the resident. I agree with the above assessment and plan unless otherwise noted below. Plan of care discussed with: Provider, RN, Patient. - Meeting all d/c criteria. Will d/c home today. Continue all home medications. Will need prn zofran and tramadol (5 tabs) scripts at d/c - Follow up already scheduled [facility] General Surgery ([facility]) Progress Note SERVICE DATE: May 13, 2023 [facility] General Surgery (Green Surgery) Service Pager: For questions or concerns Mon-Fri 6a-5p please page [phone]. After 5pm and on Weekends and Holidays, please page [phone]. SUBJECTIVE: Patient seen and examined. He is overall doing well. Pain is controlled on his current regimen. He has been walking. Tolerating clear liquid diet. Had mild nausea last night but this is resolved this morning. Tolerating diet DIET LIQUID OBJECTIVE: Vitals: Temp (24hrs), Av.3 ?C (97.4 ?F), Min:36 ?C (96.8 ?F), Max:36.7 ?C (98 ?F) BP 125/69 Pulse (!) 51 Temp 36.4 ?C (97.6 ?F) (Oral) Resp 16 Ht 177.8 cm (5' 10") Wt 93.7 kg (206 lb 9.1 oz) SpO2 95% BMI 29.64 kg/m? O2 Therapy: Room Air IANDO: Date 05/12/23 07 - 05/13/23 0659 05/13/23 07 - 05/14/23 0659 Shift 4594-5225 0310-4470 5359-1095 24 Hour Total 6227-1557 6868-3473 5408-3535 24 Hour Total INTAKE PO 50 50 PO 50 50 IV 1175 1175 Volume (mL) (clindamycin iv piggyback 900 mg in D5W 50 mL (CLEOCIN)) 50 50 Volume (mL) (lactated ringers iv infusion) 1000 1000 Volume (mL) (lactated ringers iv infusion) 125 125 Shift Total 1225 1225 OUTPUT Urine Urine Not Saved. 1 x 1 x Blood 10 10 Estimated Blood loss 10 10 Shift Total 10 10 Weight (kg) 93.7 93.7 93.7 93.7 93.7 93.7 93.7 93.7 MEDICATIONS: Current Facility-Administered Medications Medication Dose Route Frequency lisinopril 20 mg tab(s) (ZESTRIL) 20 mg ORAL q 12 HR famotidine 40 mg tab(s) (PEPCID) 40 mg ORAL DAILY allopurinol 200 mg tab(s) (ZYLOPRIM) 200 mg ORAL DAILY enoxaparin 40 mg injection (LOVENOX) 40 mg SUBCUTANEOUS q 24 HR lactated ringers iv infusion 75 mL/hr INTRAVENOUS CONTINUOUS acetaminophen 650 mg tab(s) (TYLENOL) 650 mg ORAL q 6 H traMADol 50 mg tab(s) (ULTRAM) 50 mg ORAL q 6 H PRN ondansetron 4 mg tab(s) (ZOFRAN) 4 mg ORAL q 6 H PRN Or ondansetron (PF) 4 mg injection (ZOFRAN) 4 mg INTRAVENOUS q 6 H PRN Labs: Recent Labs 05/13/23 0301 05/13/23 0300 NA -- 138 K -- 4.1 CHLOR -- 100 CO2 -- 25 BUN -- 22 CREAT -- 1.06 GLUC -- 110* ANION -- 13 CA -- 8.8 WBC 8.00 -- HB 12.0* -- HCT 35.6* -- PLT 146* -- Physical Exam: GENERAL: resting comfortably, in no acute distress HEENT: normocephalic, atraumatic, EOMI NECK: trachea midline, no JVD LUNGS: Unlabored breathing, equal chest rise bilaterally CARDIAC: Regular rate, warm extremities, good perfusion throughout ABDOMEN: Soft, non-tender, non-distended. No rebound or guarding, incisions clean dry intact with skin glue. EXTREMITIES: RYAN, No deformities, No edema SKIN: Skin color, texture, turgor normal, No rashes or lesions NEURO: AANDOx3, CN II-XII grossly intact PSYCH: normal mood and affect ASSESSMENT AND PLAN: Assessment Active Hospital Problems Diagnosis Date Noted Paraesophageal hernia 05/05/2023 Assessment: 72 year old male with PMH of PMH of gallstones, GERD, hiatal hernia, Anthony's esophagus, HTN (HCTZ, lisinopril), SVT (diltiazem), inguinal hernias, STEPHANY (BiPAP) who is s/p Laparoscopic repair of type 3 paraesophageal hernia with fundoplication and placement of mesh with Toupet. Hospital Course/Operations/Procedures: 05/12/2023 Procedure(s): LAPAROSCOPIC RPR PARAESOHAGEAL HERNIA W/ FUNDOPLASTY W/ MESH, TAP BLOCK EGD Plan: - Will advance to anti-reflux FLD this morning - To receive home going diet education today - Pain and nausea control PRN - Encourage ambulation, OOB, IS use - LVX for DVT ppx - Anticipate discharge home later today INPATIENT ATTENDING: Ruth Hernadez MD, Elective High-Risk Geriatric Patient Vulnerabilities: Patient is NOT high risk based on evaluation and assessment Diet: DIET LIQUID Code Status: Full Code Recommendations: Cognition: No Cognitive Impairment bCAM Score (Calc): Negative Delirium Screen Geriatric Consult (Age over 85 or impaired cognition):Consult not needed Palliative Care/Hospice: Consult not required Rehab/Therapy (more content not included)... [facility] 05-12-2023 Note HNO ID: [id number] Author: MARIO MCGREGOR DO Service: General Surgery Author Type: Resident Type: Plan of Care Filed: 05/12/2023 19:01 Note Text: Post-Op Check Subjective: Patient seen and examined at the bedside. They are not tachycardic, hypotensive, or hypoxic. They confirm good pain control. They Deny nausea. Objective: 05/12/23 1400 05/12/23 1415 05/12/23 1454 05/12/23 1515 BP: 106/68 114/65 115/65 Pulse: (!) 49 (!) 48 60 (!) 53 Resp: 16 14 16 Temp: 36.7 ?C (98 ?F) 36.5 ?C (97.7 ?F) TempSrc: Oral Oral SpO2: 100% 100% 96% 97% Weight: 93.7 kg (206 lb 9.1 oz) Height: 177.8 cm (5' 10") Physical Exam: General: Lungs: Regular respiratory effort, good diaphragmatic excursion, on room air Chest: Regular rate and rhythm, BP as above Abdomen: Soft, Appropriately tender to palpation, no rebound or guarding, incision clean/dry/intact Assessment/Plan: - Continue current management - Pain and nausea control as ordered - Mobilize, IS - Tolerating Diet: DIET LIQUID DIET LIQUID Mario Mcgregor DO General Surgery PGY-1 May 1147:01 PM [facility] 05-12-2023 Note HNO ID: [id number] Author: CHIARA TURNER APRN.PRESS CLEANER Service: ? Author Type: Nurse X Ray Developer Type: Anesthesia Procedure Notes Filed: 05/12/2023 08:02 Note Text: ANESTHESIOLOGY PROCEDURE NOTE PIV General Information Procedure Start Time/Medication Administration: 05/12/2023 7:45 AM Staffing Anesthesiologist: Alexander Thompson MD Performed by: anesthesiologist Preparation Sterility Preparation: hand hygiene performed prior to procedure, surgical cap used, mask used, skin prep agent completely dried prior to procedure Site Prep: chlorhexidine Procedure Details Indication: need for IV access Needle Size/Type: 18 gauge angiocath Orientation: Left Location: Hand Imaging Guidance Used: No SIGNATURE: Chiara Turner APRN.CNP PATIENT NAME: Maria Luz Santana II DATE: May 12, 2023 TIME: 8:01 AM CSN: [id number] [facility] 05-12-2023 Note HNO ID: [id number] Author: CHIARA TURNER APRN.CNP Service: ? Author Type: Nurse X Ray Developer Type: Anesthesia Procedure Notes Filed: 05/12/2023 08:01 Note Text: ANESTHESIOLOGY PROCEDURE NOTE Airway General Information Procedure Start Time/Medication Administration: 05/12/2023 7:47 AM Patient location during procedure: OR Timeout Performed Pre-procedure: timeout performed Consent Obtained: Yes Patient identity confirmed: arm band Staffing Anesthesiologist: Alexander Thompson MD LAWYER: Chiara Turner APRN.CNP Indications and Patient Condition Indications for airway management: anesthesia Preoxygenated: yes anesthesia circuit Patient position: sniffing Method: asleep Cricoid Pressure: Yes Manual In-Line Stabilization: No Final Airway Details Final airway type: endotracheal airway Final Endotracheal Airway: ETT Cuffed: yes Successful intubation technique: video laryngoscopy Devices used: [employer] Endotracheal tube insertion site: oral Blade: Carri Blade size: #4 ETT size (mm): 8.0 Measured from: lips Measurement (cm): 23 Placement verified by: chest auscultation Cormack-Lehane Classification: grade I - full view of glottis Number of attempts at approach: 1 Failed airway: no Unrecognized esophageal intubation: no Airway not difficult SIGNATURE: Chiara Turner APRN.CNP PATIENT NAME: Maria Luz Santana II DATE: May 12, 2023 TIME: 8:00 AM CSN: [id number] [facility] 05-11-2023 Miscellaneous Notes Patient is aware of 6;00 arrival time documented in this encounter [facility] 05-08-2023 Note HNO ID: [id number] Author: PANTERA GALLEGOS PT Service: ? Author Type: Physical Therapist Type: Progress Notes Filed: 05/08/2023 11:08 Note Text: Episode Visit Count: 3 Therapist That Will Accept/Oversee The Plan Of Care: Pantera Gallegos PT Start of Care Date: 04/20/23 Onset Date: 03/22/23 Plan of Care Certification Date: 04/20/23 Next Certification Due Date: 06/01/23 Patient Identified by Name and Date of : Yes REHABILITATION AND SPORTS THERAPY PHYSICAL THERAPY DISCONTINUANCE OF CARE PLAN OF CARE UPDATE: Assessment: Maria Luz Santana is discontinued from Physical Therapy services due to maximal benefit., medical/psychosocial complications., and pt is scheduled for surgery 05/12/23 and will not be permitted to exercise for 2 months . Patient was seen for 3 visits from Start of Care Date: 04/20/23 to 05/08/2023 and treatment included: Therapeutic exercise, Patient/Family/Caregiver Education, and Body mechanics training. Updated: 05/08/23 Goals for Episode of Care: created on 04/20/23 through 06/01/23 Independent in home exercises. - MET Patient will decrease pain to 0/10 at rest and with functional activities to allow patient to improve sitting tolerance for ADLs. - MET Restore pain-free thoracic ROM to WFL to allow for improved driving and completing work tasks. - Mostly MET Sit without limitations, without pain/symptoms to allow for increased sitting tolerance. - MET Knowledgeable regarding prophylaxis. - MET Patient will increase strength of postural muscles to WFL to allow for improved sitting an driving tolerance. - MET Patient Goals: eliminate pain and learn exercises for upper body - MET SUBJECTIVE: Pt reports that overall he is much improved compared to evaluation. He reports that the first set of exercises were very successful but the exercises added last session caused him increased pain. He rested and when he attempted to resume the new exercises, his pain returned. He reports that his sitting tolerance is no longer limited. He also denies any limitations with work or driving. Pain: Pain Pain Level: (1-03/21) Pain Location: (between scapula) Description: Dull (Pt is reluctant to describe this as pain, just something he notices) Frequency: Intermittent Post Treatment Pain Post Treatment Pain Level: No Change PROMIS Scales 04/19/2023 Higher is Better Phys Func - Score 46 (within normal limits) Phys Func - Percentile 34 Self-Eff Symptom - Score 57 (Average) Self-Eff Symptom - Percentile 76 T-scores: mean of general population = 50. 5 points is clinically meaningfully difference Percentiles provide an indication of how the patient's score ranks in relation to the general population. Higher percentile rankings indicate better function/quality of life. 50th percentile is the average of the general population and indicates half of respondents had a worse score. OBJECTIVE MEASURES WITH LEVEL OF FUNCTION: Thoracic Spine AROM Thoracic Flexion: Normal Thoracic Extension: Normal Thoracic Sidebend Right: Normal Thoracic Sidebend Left: Normal Thoracic Rotation Right: Minimal limitation Thoracic Rotation Left: Minimal limitation LE Strength Trunk Strength: Pt reports functional improvements with sitting, working and driving with improved postural awareness. TREATMENT: Therapeutic Exercise: 1: [employer] StepOne seat #13 x5 minutes (Subjective portion of goals assessed and pt provided an update on his condition.) 2: seated thoracic rotation 2x10 in painfree range and fingers laced in center of chest. 3: seated thoracic extension 2x10 4: L rhomboid doorknob stretch 3x30 seconds 5: HEP reviewed in detail. New exercises removed from HEP and he was advised to continue with set of exercises issued on 04/20/23 only. He was also advised that he should stop HEP after surgery next week and only resume once he has permission from surgeon. 6: Re-assessment results were reviewed with patient and used as rationale for d/c recommendations. 7: Pt questions about his independent workouts were answered and recommendations made. 8: Pt was urged to contact therapist with any future questions or concerns. Skilled Intervention: Patient was educated in proper exercise technique and purpose for exercises. Reviewed and educated patient on additions/changes for home exercise program as above (*). Skilled judgment was used in selection of appropriate interventions. Provided written instruction for home exercise program to facilitate proper performance and compliance. Correct performance of therapeutic exercises was facilitated with verbal and visual cuing. Patient education as noted. Billing Therapeutic Exercise Treatment Minutes: 23 Skilled Treatment Time Minutes (timed and untimed codes): 23 Total Session Time (minutes): 23 Session Start Time : 1030 Session Stop Time : 1053 Pantera Gallegos PT [facility] 05-05-2023 History and physical note HISTORY AND PHYSICAL EXAMINATION SERVICE DATE: 05/05/2023 SERVICE TIME: 3:06 PM PRIMARY CARE PHYSICIAN: Ana Casiano MD Implantable Devices: None Patient denies blood thinners Assessment/Plan Paraesophageal hernia [K44.9] PLAN Planned Procedure: Procedure(s): LAPAROSCOPIC RPR PARAESOHAGEAL HERNIA W/ FUNDOPLASTY W/ MESH (N/A) TRANSFUSION BLOOD (N/A) The Following Tests/Procedures Have Been Initiated: CBC CMP done 04/06/2023 T&S, Con ABO ordered per SOC. I spent a total of 40 minutes on the date of the service which included preparing to see the patient, [id number] patient care, completing clinical documentation, obtaining and/or reviewing separately obtained history, performing a medically appropriate examination, and counseling and educating the patient/family/caregiver. Assessment Patient has the following medical conditions which may affect familia-operative course: Pre-op exam see note for medical conditions which may affect familia-operative course that were addressed at today's visit. Paraesophageal hernia Surgery scheduled 05/12/2023 Tachyarrhythmia Diltiazem-instructed to take DOS Precision Lens Generator Dr. Klein-optimization in [facility] 04/02/2023 Migraine with aura Managed per PCP Ubrelvy PRN -takes about twice yearly History of kidney cancer Left partial nephrectomy 2020 STEPHANY (obstructive sleep apnea) Uses BiPap Instructed to bring DOS Primary hypertension Lisinopril-instructed to hold DOS HCTZ, diltiazem -instructed to take DOS Other specified anemias -04/06/2023 H&H 12.2/37.1 Rodriguez Activity Status Index: METS: Climb a flight of stairs or walk up a hill (5.50 METs) DASI Score: 5.5 Patient denies any chest pain or undue shortness of breath with the above physical activity. ARISCAT Score: Age: 51-80 Preoperative SpO2: >=96% Respiratory infection in the last month: No Preoperative anemia: No Surgical incision: upper abdominal Duration of surgery: >3 hrs Emergency procedure: No ARISCAT Score: 41 ANESTHESIA FINDINGS: Intubation History: No history of difficult intubation Significant Anesthesia Considerations: none Airway History: No history of difficult airway I - PHYSICAL EVALUATION AIRWAY Patient intubated: No. DENTAL Dental findings: teeth intact. II - ANESTHESIA PLAN Anesthetic Plan: general Beta Tia Monitoring Plan Post Procedure Analgesic Plan Prepared for Surgery: CONSULTS: The following consults have been initiated at this time: cardiology (scanned in [facility] 04/02/2023). Planned Anesthetic: general The Following Tests/Procedures Have Been Initiated: Orders Placed This Encounter lisinopril (ZESTRIL) 20 mg tablet Sig: Take 1 tablet by mouth every 12 hours. REASON FOR VISIT: Maria Luz Santana is a 72 year old male who is scheduled for Procedure(s): LAPAROSCOPIC RPR PARAESOHAGEAL HERNIA W/ FUNDOPLASTY W/ MESH (N/A) TRANSFUSION BLOOD (N/A) at the request of Dr. Ruth Sullivan for routine H&P. My final recommendation will be communicated back to the requesting physician by way of shared medical record or letter. Subjective The patient has the following: ACTIVE PROBLEM LIST Pain in Thoracic Spine Pre-Op Exam Paraesophageal Hernia Tachyarrhythmia Migraine With Aura History of Kidney Cancer Stephany (Obstructive Sleep Apnea) Primary Hypertension Other Specified Anemias COVID-19 Immunization Status Overdue - Covid-19 Vaccine () Overdue since 10/10/2022 04/17/2020 Imm Admin: COVID-19 original vaccine, full dose, monovalent (MODERNA) 03/20/2020 Imm Admin: COVID-19 original vaccine, full dose, monovalent (MODERNA) CHIEF COMPLAINT: The reason for this visit is to perform a comprehensive review of the patient's past medical history, assess their current health status and obtain any additional testing required based on anesthesia guidelines. We will also identify any potential anesthesia problems or contraindications to the planned procedure. HPI: Patient is a 72 year old male who presents for pre surgical testing. He has a h/o Anthony's esophagus, GERD, and a paraesophageal hernia. He is on famotidine which improves his symptoms. He had his esophogeal manometry on 03/13/23.After discussion with the surgeon the patient agrees to surgical intervention. REVIEW OF SYSTEMS: General: Negative for: unintentional weight change, malaise and fever. Neurological: Positive for: headaches. Negative for: seizures and strokes. Respiratory: Positive for: obstructive sleep apnea and CPAP/BiPAP compliant. Negative for: asthma, COPD, pneumonia within 6 weeks and URI < 2 weeks. Cardiovascular: tachyarrhythmia Positive for: hypertension Negative for: atrial fibrillation, CAD, chest pain, CHF, DVT/PE and hyperlipidemia. GI: See HPI. Positive for: GERD Negative for: abdominal pain, nausea and vomiting. : Negative for: dysuria, hematuria and renal failure. Endocrine: Negative for: diabetes mellitus, hyperthyroidism and hypothyroidism. Hematology: Positive for: anemia. Negative for: factor V Leiden and von Willebrand disease. Oncology: Kidney cancer-left partial nephrectomy Psych: Negative for: anxiety and depression. Musculoskeletal: Negative for: back pain and joint pain. Skin: Negative for lesions, rash and itching. PAST MEDICAL HISTORY Diagnosis Date Anthony's esophagus without dysplasia 12/22/2022 Cancer of kidney (HCC) Gallstones 05/16/[address] Gout Hiatal hernia 12/22/2022 medium sized Hypertension Inguinal hernia 05/16/2022 bilateral, small Iron deficiency anemia Migraines Sleep apnea wears bipap PAST SURGICAL HISTORY Procedure Laterality Date 48 HOUR PH STUDY 12/22/2022 Dr. Gill COLONOSCOPY 01/18/2015 EGD 01/18/2015 EGD WITH BIOPSY(S) 12/22/2022 medium hiatal hernia; Anthony's without dysplasia; Dr. Gill ESOPHAGEAL MANOMETRY 03/13/2023 Dr. Sullivan EXTENSIVE JAW SURGERY INGUINAL HERNIA REPAIR HX Left 10/11/1979 open NEPHRECTOMY PARTIAL Left 2020 VASECTOMY UNI/BI SPX W/POSTOP SEMEN EXAMS FAMILY HISTORY Problem Relation Age of Onset Allergies Mother Diabetes Mother Hypertension Mother Stroke Mother Coronary Artery Disease Father 60 [place] x 3 Blood Disease Father Heart Father Social History Tobacco Use Smoking status: Never Smokeless tobacco: Never Vaping Use Vaping Use: Never used Substance Use Topics Alcohol use: Yes Comment: [id number] times monthly Drug use: No Prior to Admission medications as of 05/05/23 1441 Medication Sig Last Dose Taking lisinopril (ZESTRIL) 20 mg tablet Take 1 tablet by mouth every 12 hours. Taking Yes ergocalciferol 50,000 unit capsule (VITAMIN D2, DRISDOL) Take 1 capsule by mouth one time a week. Taking Yes DILT-XR 120 mg 24 hr capsule Taking Yes famotidine (PEPCID) 40 mg tablet Take 40 mg by mouth once daily. Taking Yes allopurinol (ZYLOPRIM) 100 mg tablet Take 200 mg by mouth once daily. Taking Yes loratadine (CLARITIN) 10 mg tablet Take 10 mg by mouth as needed for cold/allergy symptoms. Taking Yes hydrochlorothiazide 12.5 mg tablet Take 12.5 mg by mouth once daily. Two tablets Taking Yes No medication comments found. ALLERGIES Allergen Reactions Corticosteroids (Gl* Other: See Comments, Shortness of Breath Egg Derived Other: See Comments Levaquin [Levofloxa* Rash Milk Containing Pro* Diarrhea Omeprazole Itching Penicillins Swelling swelling of tongue Protonix [Pantopraz* Itching Steroids [Betametha* Swelling Tongue swelling Uloric [Febuxostat] Rash Objective PHYSICAL EXAM: General: alert and oriented and healthy appearance. Pertinent negatives noted - not distressed. Skin: normal color, no rash or lesions. HEENT: pupils equal round. Cardiovascular: regular rate and rhythm, normal S1 and S2, no rub, murmurs, or gallop. Pulse characterized as regular. Respiratory: normal breath sounds, no wheezes or crackles. No chest wall deformity or tenderness. Abdomen: bowel sounds present. Extremities: no deformity, no edema or tenderness, no joint swelling or clubbing. Neurological: normal cognition and motor skills. Gait normal. No weakness or sensory deficit. PAIN ASSESSMENT: VITALS: BP 120/73 Pulse 68 Temp 98.2 Resp 16 Ht 5' 10" (1.78m) Wt 202 lb (91.6kg) SpO2 97% BMI 28.98 kg/(m^2). Diagnostic tests reviewed for today's visit: Lab Value Units Date High Low HB 12.2 g/dL 04/06/2023 17.0 13.0 HCT 37.1 % 04/06/2023 51.0 39.0 WBC 4.16 k/uL 04/06/2023 11.00 3.70 PLT 169 k/uL 04/06/2023 400 150 NA 143 mmol/L 04/06/2023 144 136 K 4.0 mmol/L 04/06/2023 5.1 3.7 GLUC 118 mg/dL 04/06/2023 99 74 BUN 17 mg/dL 04/06/2023 24 9 CREAT 1.15 mg/dL 04/06/2023 1.22 0.73 PTSEC No results within date range. INR No results within date range. APTT No results within date range. ALT 26 U/L 04/06/2023 54 10 AST 25 U/L 04/06/2023 40 14 TBILI 0.6 mg/dL 04/06/2023 1.3 0.2 TSH No results within date range. Lab Value Units Date High Low HCGQT No results within date range. UHCG No results within date range. HCG, BODY* No results within date range. Lab Value Units Date High Low ABORHD No results within date range. ABSCREEN No results within date range. No results found for: "HBA1C" No results found for this or any previous visit (from the past 8760 hour(s)). No results found for this or any previous visit (from the past 81110 hour(s)). Instructions Given to Patient: Instructions located in the after visit summary. Patient given verbal and written preop instructions and voices comprehension and compliance. SIGNATURE: Lisa Alfaro APRN.CNP PATIENT NAME: Maria Luz Santana DATE: May 05, 2023 TIME: 8:56 AM PAGER/CONTACT #: documented in this encounter [facility] 05-05-2023 Instructions Lisa Alfaro APRN.CNP - 05/05/2023 2:52 PM EDT PATIENT PREOPERATIVE INSTRUCTIONS Ruth Sullivan MD has scheduled you for your procedure at this surgery center: [facility]: [phone], [address] [address] Please read below carefully for your personalized instructions. Date of Surgery:05/12/2023 Arrival Time for Surgery: Your surgeon's office will provide you with your arrival time for surgery if they have not done so already. If you do not have your arrival time for surgery by the afternoon the day before your surgery you can call the surgeon's office. If you are scheduled for a Thursday surgery you can call the Thursday before. -Please be aware that emergency situations arise, which may delay or change your surgical time. If this happens, your surgeon's office will notify you as soon as possible and regret any inconvenience. Dietary Restrictions: Please follow Dr. Sullivan instructions Medications: Please follow surgeon instructions if given. Pre-Surgery Med Instructions Medication Instructions lisinopril (ZESTRIL) 20 mg tablet Last dose 05/11/2023 in morning. ergocalciferol 50,000 unit capsule (VITAMIN D2, DRISDOL) Continue until night before surgery DILT-XR 120 mg 24 hr capsule Take morning of surgery with sip of water, no other fluids famotidine (PEPCID) 40 mg tablet Take morning of surgery with sip of water, no other fluids allopurinol (ZYLOPRIM) 100 mg tablet Continue until night before surgery loratadine (CLARITIN) 10 mg tablet Continue until night before surgery hydrochlorothiazide 12.5 mg tablet Take morning of surgery with sip of water, no other fluids Blood pressure medications See med list for instructions Take beta tia day of surgery Do not take JOSEPH or ARB medications day of surgery Weight loss medications Sympathomimetics such as Adipex-P (Phentermine): Stop 4 days before surgery. Contrave (Naltrexone/Bupropion) Hold 2-3 days. Qsymia (Phentermine/Topiramate - Please contact your prescribing provider for Pre op directions. ( depending on the patients dose this medication may need tapered off. They should get pre op directions from their prescribing provider.) GLP-1 Agonists (oral and injectables) Hold 7 days. Blood Thinning Medications: - Stop NSAIDS (Ibuprofen, Advil, Aleve, Motrin, Celebrex, Mobic, etc.) 7 days before surgery, as directed by your surgeon. - You may take Tylenol (Acetaminophen) or any of your current prescribed pain medications that do not contain aspirin or NSAIDS as needed. - If you take any of the following blood thinners, please contact your surgeon and the physician who prescribes it for you in order to get perioperative instructions as soon as possible Blood thinners: Aspirin,Coumadin, Plavix, Eliquis, Pradaxa, Xarelto, Lovenox, Brilinta, Effient, Savaysa, etc. Supplements - Stop Vitamin E, fish oil, Ginko, Hallock's Wort, flax seed oil, multivitamins, CBD oil, marijuana and other over the counter herbals and dietary supplements 7 days before surgery. This would not apply to cancer patients who are prescribed Marinol or any other prescription form of marijuana or CBD. If you are taking Phentermine please hold 4 days prior to surgery. Pain medications Approved pain medications can be taken the morning of surgery with a sip of water. Erectile dysfunction medications If you take any medications for erectile dysfunction-Cialis (Tadalafil), Levitra, Staxyn (Vardenafil) Viagra (Sildenenafil please do not take these for 48 hours before surgery. If you start any new medications after today's visit, please contact the surgeon's office. Important Reminders: - If you use CPAP/BIPAP, bring the machine with you to the hospital if you are scheduled to stay over night. - If you are prescribed inhalers for breathing, continue using them AND bring them to the surgery center. - Candy, mints, gum and tobacco products are NOT permitted the morning of surgery. - Hearing aids, dentures and glasses may be worn the morning of surgery. - NO jewelry, body piercings, makeup, hairpins or contacts are to be worn the day of surgery. - NO lotion, creams, powders or deodorants on the skin the day of surgery - You will need to have someone else (Family or friend) drive you home once discharged from the hospital. You cannot take a cab or Uber. You are not allowed to drive yourself home after surgery. -You will need an adult(over the age of 18) to stay with you for the first 24 hours post surgery or your surgery may be cancelled. Please speak with your surgeon if this is an issue. If you develop symptoms such as a fever, cold, or flu, or have other changes to your health within TWO DAYS of scheduled surgery or the morning of surgery, please contact the surgery center above. Personal Belongings: - Leave ALL valuables and money at home or with family members. - You will need a form of ID and insurance card to check in the morning of surgery. - You will have to wear a hospital gown during your stay but if you wish to bring undergarments for after surgery you may. -If you do not have a copy of advance directives on file with us, please bring a copy with you on the day of surgery. If you already have an Advance Directive, please fax a copy to [phone] or email to for it to be added to your chart. If you do not have an Advance Directive, you can find the appropriate form and more information at [email or web address]. We recommend that you complete the Advance Directive form found on the website and bring it with you the day of your surgery. It can be witnessed and scanned into your chart that day. Please note-you should have a 72-hour period between getting your vaccine and date of surgery - If you have a stimulator, implant or pump that requires a remote please bring the remote with you day of surgery Lisa Alfaro APRN.[employer]AN[employer] documented in this encounter [facility] 05-01-2023 History of Present illness Narrative Program_ID:[id number] Access Code: [email or web address] URL: [email or web address] Date: 05-01-2023 Prepared By: Pantera Gallegos Program Notes Exercises - Seated Thoracic Extension with Hands Behind Neck - 3 x daily - 7 x weekly - 2 sets - 10 reps - Seated Trunk Rotation - Arms Crossed - 3 x daily - 7 x weekly - 2 sets - 10 reps - Doorway Rhomboid Stretch - 3 x daily - 7 x weekly - sets - 3 reps - Gentle Levator Scapulae Stretch - 3 x daily - 7 x weekly - 1 sets - 3 reps - Shoulder Horizontal Abduction - Thumbs Up - 1-2 x daily - 7 x weekly - 2 sets - 10 reps - Seated Scapular Retraction - 1-2 x daily - 7 x weekly - 2 sets - 10 reps Episode Visit Count: 2 Therapist That Will Accept/Oversee The Plan Of Care: Pantera Gallegos PT Start of Care Date: 04/20/23 Onset Date: 03/22/23 Plan of Care Certification Date: 04/20/23 Next Certification Due Date: 06/01/23 Patient Identified by Name and Date of : Yes REHABILITATION AND SPORTS THERAPY PHYSICAL THERAPY TREATMENT NOTE ASSESSMENT: Maria Luz Santana tolerated the session with decreased symptoms. He demonstrated improvements in tightness across thoracic spine. The patient will continue to benefit from ongoing skilled physical therapy to progress toward set goals. PLAN FOR NEXT VISIT: Asses repsonse to scapular and postural strengthening. Add resistance band as tolerated. SUBJECTIVE: Pt reports that he is feeling good this morning. He states that his pain is gone, has a slight twinge in the L scapula intermittently. Pt states that he deals with migranes daily. Pt has laprascopic surgery 05/12/23 to repair paraesophogeal hernia. Pt questions about treatment for his neck, advised him to reach out to referring provider. Pain: Pain Pain Level: 0 Pain Location: Scapula - Left, Thoracic Spine Post Treatment Pain Post Treatment Pain Location: Scapula - Left, Thoracic Spine Post Treatment Pain Description: ("My upper back feels much looser") OBJECTIVE MEASURES WITH LEVEL OF FUNCTION: Tight to palpate along medial l scapular border. TREATMENT: Therapeutic Exercise: 1: L rhomboid doorknob stretch 3x30 seconds 2: seated thoracic rotation 2x10 in painfree range and fingers laced in center of chest. 3: seated thoracic extension 2x10 4: *Seated scapular retractions 2x10 5: *Seated levator scap stretch 3x30 seconds B 6: Seated protraction and retraction 2x10 7: Seated scapular retraction with B shoulder ER 2x10 8: *Seated horizontal abduction with scapular retraction emphasis 2x10 Skilled Intervention: Patient was educated in proper exercise technique and purpose for exercises. Reviewed and educated patient on additions/changes for home exercise program as above (*). Skilled judgment was used in selection of appropriate interventions. Provided written instruction for home exercise program to facilitate proper performance and compliance. Correct performance of therapeutic exercises was facilitated with verbal and visual cuing. Billing Therapeutic Exercise Treatment Minutes: 40 Skilled Treatment Time Minutes (timed and untimed codes): 40 Total Session Time (minutes): 40 Session Start Time : 841 Session Stop Time : 921 CHRISTA White PT documented in this encounter [facility] 04-30-2023 Miscellaneous Notes Summary: SOC updates LVM on 04/28/23 for patient to call clinic with SOC updates. This is a second attempt. No call back. Will remove off of call schedule. Alpa Pearson APRN.CHADD documented in this encounter [facility] 04-20-2023 History of Present illness Narrative Episode Visit Count: 1 Therapist That Will Accept/Oversee The Plan Of Care: Pantera Gallegos PT Start of Care Date: 04/20/23 Onset Date: 03/22/23 Plan of Care Certification Date: 04/20/23 Next Certification Due Date: 06/01/23 Patient Identified by Name and Date of : Yes REHABILITATION AND SPORTS THERAPY PHYSICAL THERAPY EVALUATION PLAN OF CARE: Assessment: Maria Luz Santana presents with chief complaint of upper/mid back pain that interferes with sitting, driving. He presents with impairments in ADL's, overall function, posture, range of motion, strength, and symptom management. PROMIS (Patient-Reported Outcomes Measurement Information System) scores were reviewed and identified as within normal limits. Prognosis for therapy is Good due to: current objective clinical presentation, within-session changes, good support system/ coping skills, acuteness of condition. He will benefit from skilled therapy services to meet the goals established for this plan of care as noted below. Classification Low Back Pain Classification: Symptom Modulation Goals for Episode of Care: created on 04/20/23 through 06/01/23 Independent in home exercises. Patient will decrease pain to 0/10 at rest and with functional activities to allow patient to improve sitting tolerance for ADLs. Restore pain-free thoracic ROM to WFL to allow for improved driving and completing work tasks. Sit without limitations, without pain/symptoms to allow for increased sitting tolerance. Knowledgeable regarding prophylaxis. Patient will increase strength of postural muscles to WFL to allow for improved sitting an driving tolerance. Patient Goals: eliminate pain and learn exercises for upper body Planned Interventions, Frequency, and Duration: Current Frequency: 1x/week Duration: 6 weeks Total Number of Visits Planned: 6 Planned Treatment Interventions: Therapeutic exercise (31338), Body Mechanics Training, Patient/Family/Caregiver Education, Self-nursing home management (33115), Manual therapy (64166), Therapeutic activities (94641), Neuromuscular re-education (55859) PLAN FOR NEXT VISIT: Review, correct and progress HEP to tolerance. Continue with postural correction and postural stretching and strengthening for mid to upper back. Patient demonstrates good understanding of plan of care and treatment. The above goals and plan of care were discussed and agreed upon by patient/family. SUBJECTIVE: Pt reports intermittent pain between his shoulder blades, especially on L side. He locates pain close to medial border of L scapula. 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 He reports that prolonged sitting and driving aggravate his symptoms. He reports diagnosis of osteoporosis approximately 2 years ago. 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 Cancer Red Flags: History of Cancer Cancer Clinical Reasoning: Proceed with caution (kidney cancer one year ago with complete resolution from resection of 1/3 of kidney) Infection Clinical Reasoning: No identified risk factors. Cauda Equina Syndrome Clinical Reasoning: No identified risk factors. Red Flags - Cervical Cancer Red Flags: History of Cancer Cancer Clinical Reasoning: Proceed with caution (kidney cancer one year ago with complete resolution from resection of 1/3 of kidney) Infection Clinical Reasoning: No identified risk factors. Spine History Symptoms Location at Onset: Back Symptoms Since Onset: Unchanging Pain is Worse Always: Sitting (driving) Pain is Better Always: (postural correction, ice and/or heat) Previous Episodes: No Sleeping Position: Side lying left Sleep Affected by Pain: Not affected by pain Pain: Pain Pain Level: 4 (0/10 currently, 4/10 at worst) Pain Location: Scapula - Left, Thoracic Spine Description: Dull, Sharp (dull but intermittently sharp) Frequency: Intermittent, Sitting (driving) Post Treatment Pain Post Treatment Pain Level: Better Post Treatment Pain Location: Scapula - Left, Thoracic Spine Post Treatment Pain Description: (better) Post Treatment Symptoms: After initiation of therex, pt reported feeling better with rhomboid stretch especially helping. He also reports that postural correction helps to decrease his pain Pain Mechanism Classification: Nociceptive PROMIS Scales Higher is Better 04/19/2023 Phys Func - Score 46 (within normal limits) Phys Func - Percentile 34% Self-Eff Symptom - Score 57 (Average) Self-Eff Symptom - Percentile 76% T-scores: mean of general population = 50. 5 points is clinically meaningfully difference Percentiles provide an indication of how the patient's score ranks in relation to the general population. Higher percentile rankings indicate better function/quality of life. 50th percentile is the average of the general population and indicates half of respondents had a worse score. OBJECTIVE MEASURES WITH LEVEL OF FUNCTION: Posture / Alignment Posture: Forward head, Increased thoracic kyphosis, Rounded shoulders, Slump, Poor Sitting Posture: Slump, Poor Effects of Posture Correction: better with postural correction Spine Observations R Lumbar Spine Palpation Tenderness: No tenderness noted L Lumbar Spine Palpation Tenderness: No tenderness noted R Thoracic Spine Palpation Tenderness: (none) L Thoracic Spine Palpation Tenderness: (none) Thoracic Spine AROM Thoracic Flexion: Normal Thoracic Extension: Moderate limitation, Increased pain (stiffness) Thoracic Sidebend Right: Normal Thoracic Sidebend Left: Normal Thoracic Rotation Right: Moderate limitation Thoracic Rotation Left: Moderate limitation LE Strength Trunk Strength: Pt's reported functional difficulty with prolonged sitting/driving, his postural deficits and plans to stay active, indicate that he will benefit from increased postural strength. Education: Education Learning Preferences: Demonstration, Explanation, Performance, Printed Materials Barriers: None Learning/educational needs: Plan of Care, Home exercise program, Posture, Body Mechanics, Lifestyle changes Education Provided: Yes, see treatment interventions for education provided Education Provided To: Patient Education Mode/Type: Demonstration, Explanation/Discussion, Literature/Printed Materials, Performance Response to Education/Teach Back: States/Identifies, Return Demonstration, Requires Review/Additional Education TREATMENT: PT Treatment Interventions: Therapeutic Exercise Evaluation Therapeutic Exercise: 1: Pt was educated extensively on the anatomy of his symptomatic area, likely source of symptoms and rationale for proposed plan. Postural correction emphasized as well as precautions related to his osteoporosis diagnosis. He was repeatedly advised to stop any exercise that causes increased pain. 2: *seated thoracic rotation 2x10 in painfree range and fingers laced in center of chest. 3: *seated thoracic extension 2x10 4: *L rhomboid doorknob stretch 3x30 seconds Skilled Intervention: Patient was educated in proper exercise technique and purpose for exercises. Reviewed and educated patient on additions/changes for home exercise program as above (*). Skilled judgment was used in selection of appropriate interventions. Provided written instruction for home exercise program to facilitate proper performance and compliance. Correct performance of therapeutic exercises was facilitated with verbal, visual, and tactile cuing. Patient education as noted. Billing * Evaluation Moderate Complexity: 1 Unit Therapeutic Exercise Treatment Minutes: 14 Skilled Treatment Time Minutes (timed and untimed codes): 44 Total Session Time (minutes): 44 Session Start Time : 833 Session Stop Time : 917 Pantera Gallegos PT Program_ID:[id number] Access Code: [email or web address] URL: [email or web address] Date: 04-20-2023 Prepared By: Pantera Gallegos Program Notes Exercises - Seated Thoracic Extension with Hands Behind Neck - 3 x daily - 7 x weekly - 2 sets - 10 reps - Seated Trunk Rotation - Arms Crossed - 3 x daily - 7 x weekly - 2 sets - 10 reps - Doorway Rhomboid Stretch - 3 x daily - 7 x weekly - sets - 3 reps documented in this encounter [facility] 04-13-2023 Miscellaneous Notes Summary: SOC Updates LMV for patient to call clinic with SOC updates. Alpa Pearson APRN.PRESS CLEANER documented in this encounter [facility] 04-02-2023 Miscellaneous Notes Cardiology clearance letter sent/faxed to Dr. Dwayne Klein MD. Luis Underwood RN documented in this encounter [facility] 04-02-2023 Note HNO ID: [id number] Author: EDITH ROQUE RN Service: ? Author Type: Nurse Clinician [...] if he has questions prior to surgery. Edith Roque RN [facility] 04-02-2023 History of Present illness Narrative Patient [...] if he has questions prior to surgery. Edith Roque RN SURGICAL SERVICES HISTORY AND PHYSICAL EXAMINATION [...] to chronic sinus drainage. 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 He [...] for back pain) done last week at [facility] patient will get this uploaded - Manometry (03/13/23): Ineffective esophageal motility; DCI less than 500 - Esophagram (03/10/23): Persistent area of very mild stricture within the distal esophagus which could be more optimally evaluated by direct visualization. Gastroesophageal reflux into the midesophagus - EGD (12/22/22; Dr. Gill): LA Grade B reflux esophagitis, medium sized hiatal hernia. - Stafford (12/22/22): DeMeester score of 73.1; SAP 100 [...] a day. He does follow with a die machine operator for SVT. He has not discussed this with his die machine operator due to the fact that the patient [...] EXAM: BP 110/68 Pulse 67 Ht 5' 10" (1.78m) Wt 199 lb (90.3kg) BMI 28.55 [...] visit: EMR reviewed Plan ASSESSMENT AND PLAN Maria Luz Santana is a 72 year old male [...] embolism, pneumonia, myocardial infarction. We also discussed oysterman risks of recurrence, dysphagia, and bloating. - [...] Decision Making Level: 5 - High SIGNATURE: Ruth Sullivan MD PATIENT NAME: Maria Luz Santana DATE: April 02, 2023 TIME: 8:43 AM PAGER/CONTACT #: [phone] documented in this encounter [facility] 04-02-2023 Note HNO ID: [id number] Author: RUTH SULLIVAN MD Service: ? Author Type: Physician [...] to chronic sinus drainage. 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 He [...] for back pain) done last week at [facility] patient will get this uploaded - Manometry (03/13/23): Ineffective esophageal motility; DCI less than 500 - Esophagram (03/10/23): Persistent area of very mild stricture within the distal esophagus which could be more optimally evaluated by direct visualization. Gastroesophageal reflux into the midesophagus - EGD (12/22/22; Dr. Gill): LA Grade B reflux esophagitis, medium sized hiatal hernia. - Stafford (12/22/22): DeMeester score of 73.1; SAP 100 [...] a day. He does follow with a die machine operator for SVT. He has not discussed this with his die machine operator due to the fact that the patient [...] Corticosteroids (Gl* Other: (more content not included)... [facility] 03-30-2023 History of Present illness Narrative Summary: SOC Images from the original note were not included. Alpa Pearson APRN.[facility] (SOC) [address], [address] [place] [address] Patient: Maria Luz Santana Date of : [...] he has noticed sometimes he has to "catch his breath." Reports he was referred to Cardiology for clearance, was seen by Dr. Klein in [place] last week and reports there were no [...] compliant with BiPAP) and shortness of breath ("catches breath occasionally"). Negative for cough. +post nasal drainage Cardiovascular: [...] 65 Resp 18 Ht 177.8 cm (5' 10") Wt 88.9 kg (196 lb) SpO2 98% [...] after surgery: no Currently involved with Case Management/Environmental Department Manager: no Home environment/homeless/hygiene concerns: no PHQ-9 Questionnaire: [...] regularly active (3) -Vulnerable- Limited activity/tired throughout day/"slowed up" (4) -Mildly Frail- Help needed with ADLs [...] Asthma: no COPD: no Hypoventilation syndrome: no Nursing Department Chairperson: NA Recent exacerbation: No recent PNA or bronchitis Cardiac: Beta Tia use: No Hx of CAD: no Hx of HLD: no CHF: no Prior KS: no Hx abnormal EKG: no Hx abnormal heart rhythm: no Valvular heart disease: no Hx endocarditis: no PAD: no PVD: no CVA: no HTN: yes, controlled on medication Pulmonary HTN: no Hx cardiovascular surgery: no Precision Lens Generator: Dr. Klein, will get EKG from office [...] Visit: 1.) None ACS Surgical Risk Calculator: [id number] - Laparoscopy, surgical, repair of paraesophageal hernia, [...] agents should be avoided pre and postoperatively -Finisher Polisher, Dr. Norris, partial left nephrectomy in 2020 [...] requested per surgeon, saw Dr. Klein in [place] last week -will request EKG to be [...] which included preparing to see the patient, [id number] patient care, completing clinical documentation, obtaining and/or reviewing separately obtained history, performing a medically appropriate examination, counseling and educating the patient/family/caregiver, ordering medications, tests, or procedures, and communicating with other HCPs (not separately reported). ELECTRONICALLY SIGNED AND DATED BY: Alpa Pearson APRN, CNP [facility] documented in this encounter [facility] 03-30-2023 Note HNO ID: [id number] Author: ALPA PEARSON APRN.CHADD Service: ? Author Type: Nurse Practitioner Type: Progress Notes Filed: 03/30/2023 13:18 Note Text: Summary: SOC Alpa Pearson APRN.[facility] (SOC) [address], [address] [place] [id number] Patient: Maria Luz Santana Date of : [...] he has noticed sometimes he has to "catch his breath." Reports he was referred to Cardiology for clearance, was seen by Dr. Klein in [place] last week and reports there were no [...] compliant with BiPAP) and shortness of breath ("catches breath occasionally"). Negative for cough. +post nasal drainage Cardiovascular: [...] 65 Resp 18 Ht 177.8 cm (5' 10") Wt 88.9 kg (196 lb) SpO2 98% [...] lesion. Neurological: Ment (more content not included)... [facility] 03-23-2023 Instructions Alpa Pearson APRN.PRESS CLEANER - 03/23/2023 11:23 AM EST Incentive Spirometer: [...] lean beef, salmon, tofu, peanut butter, eggs, peruvian yogurt, cottage cheese, black beans, lentils -Make [...] member be designated as your power of family law attorney in the event you cannot speak [...] records with the designated Durable Power of Csm Consultant. -A great web site for information: [email or web address] Sensory Aids: -If you have any sensory [...] day of surgery. documented in this encounter [facility] 03-10-2023 Note HNO ID: [id number] Author: RIRI CLAYTON RT(R) Service: ? Author Type: Director On Air Type: Progress Notes Filed: 03/10/2023 13:06 Note [...] PATIENT PRESENTS WITH AN IMPLANTABLE OR ATTACHED SUPPORT STAFF: No RADIOLOGY DEPARTMENT: General X-ray: Exam(s) Completed: GI/ Procedure(s): Esophogram with barium contrast PERIPHERAL IV DATA: Not applicable SIGNED BY: Riri Clayton, RT(R) March 10, 2023 1:05 PM [facility] 03-06-2023 Note HNO ID: [id number] Author: EDITH ROQUE RN Service: ? Author Type: Nurse Clinician [...] patient. All of patient's questions were answered. Edith Roque RN [facility] 03-06-2023 Note HNO ID: [id number] Author: RUTH SULLIVAN MD Service: ? Author Type: Physician [...] a day. He does follow with a die machine operator for SVT. He has not discussed this with his die machine operator due to the fact that the patient thinks these symptoms are related to acid reflux. Workup: - EGD (12/22/22; Dr. Gill): LA Grade B reflux esophagitis, medium sized hiatal hernia. - Stafford (12/22/22): DeMeester score of 73.1; SAP 100 [...] neck pain. Skin (more content not included)... [facility] 02-12-2023 Discharge summary Note Date/Time February 12, 2023 10:40am [facility] Medical Records Department [address] [place] [address] Emergency Department Summary 02/12/23 MR#: [id number] Acct: [id number] Name: MARIA LUZ SANTANA II Rep #:[id number] : 1950 72 From: Rell Valentine MD PCP: Dr. Ana Casiano MD Status:REG ER Location: ED HPI History of Present Illness Chief Complaint: Shortness of Breath Detail of Chief Complaint: Shortness of breath, nonproductive cough and diagnosed influenza 2 weeks ag Informant: patient Onset/Context/Timing Onset: Today (While driving he became short of breath.) Context: sudden Timing: Continuous and Waxes and wanes Quality: Positive for Dyspnea on exertion and Wheezing; Negative for Orthopnea or PND Current Severity: Mild Maximum Severity: Moderate Worsened by: Exertion and Coughing; Not Worsened By Lying flat Relieved by: Nothing Associated Symptoms cough, rhinorrhea, post nasal drip and sore throat; Negative for ear pain, fever, subjective, chills, sweats, clear sputum, white sputum, yellow sputum or green sputum Chest Pain: Positive for None (Reports midsternal congestion. Denies pleuritic pain.) Narrative Narrative: Patient is a 72-year-old male with history of COVID, recent diagnosis of influenza and placed on azithromycin. He states since he is was placed on the azithromycin has had 2-3 watery stools per day. He has not noted blood or mucus. He denies odor to the diarrhea. He denies headache, visual, ocular auditory symptoms. He does endorse rhinorrhea, congestion, postnasal drainage sore throat. His cough is nonproductive. There is pain when he coughs. He denies leg pain, swelling or discoloration. He denies history of VTE. He has no risk factors for VTE. He does have history of partial left nephrectomy due to renal cancer. There were no positive lymph nodes. Patient was considered a cure with surgery. Patient denies history of angina or stents. He does have evidence of coronary calcification on CT angio of the chest. He does have history of essential hypertension and hyperlipidemia. He also has history of obstructive sleep apnea. PE Risk Factors: Positive for Cancer (Documented HPI narrative); Negative for OCP + Smoking + > 35, Prior DVT or PE, Recent immobilization, Recent surgery or Recent travel Prior similar symptoms: Yes Recent Illness/Hospitalization: Yes PFSH [facility] Medical History Alcohol use Barretts esophagus (01/05/23) Cancer Cardiology follow-up encounter Chronic cough Closed left hip fracture Dietary restriction Difficulty swallowing Eczema Essential hypertension Fracture of radial head, left, closed Fracture of right patella Fracture of right radius GERD (gastroesophageal reflux disease) Gout History of hiatal hernia History of irregular heartbeat History of renal cell cancer History of renal disease History of stress test Hyperlipidemia Hyperuricemia Migraine headache Non-smoker Obesity Osteoporosis Personal history of supraventricular tachycardia Seasonal allergies Spinal stenosis Wears glasses Wears hearing aid Home Medications allopurinol 100 mg tablet 200 mg PO DAILY PRN gout 12/13/17 [History Last Taken 03/18/18] loratadine 10 mg tablet (Claritin) 10 mg PO DAILY allergies 04/05/20 [History Last Taken Unknown] hydrochlorothiazide 12.5 mg capsule 12.5 mg PO BID 01/12/22 [History Last Taken Unknown] lisinopril 20 mg tablet 20 mg PO BID HTN 02/20/21 [History Last Taken 06/12/21] ubrogepant 100 mg tablet (Ubrelvy) 100 mg PO ONCE PRN migraines 02/20/21 [History Last Taken Unknown] diltiazem HCl 120 mg capsule,extended release 24 hr, controlled (DILT-XR) 120 mgPO DAILY 12/19/22 [History Last Taken Unknown] famotidine 40 mg tablet 40 mg PO Q12H PRN GERD 01/14/23 [History Last Taken Unknown] doxycycline monohydrate 100 mg capsule 100 mg PO BID #14 CAPSULES 02/12/23 [Rx Last Taken Unknown] oseltamivir 75 mg capsule (Tamiflu) 75 mg PO BID 5 days #10 caps 02/12/23 [Rx Last Taken Unknown] Allergy/AdvReac Type Severity Reaction Status Date / Time Egg Derived Allergy Severe Food Verified 02/08/23 19:50 Allergy febuxostat [From Uloric] Allergy Intermediate Other Verified 02/08/23 19:50 Penicillins Allergy Anaphylaxis Verified 02/08/23 19:50 omeprazole AdvReac Intermediate Rash Verified 02/08/23 19:50 pantoprazole [From Protonix] AdvReac Intermediate Hives Verified 02/08/23 19:50 Corticosteroids AdvReac Hypertensio Verified 02/08/23 19:50 (Glucocorticoids) n [steroids] Milk Containing Products AdvReac Diarrhea Verified 02/08/23 19:50 (Dairy) [Milk Containing Products] Family History Mother Diabetes Dementia Heart disease tachycardia Father Heart disease Leukemia Surgical History History of colonoscopy History of esophagogastroduodenoscopy (EGD) History of hip surgery History of mandibular surgery History of partial nephrectomy Social History household members: spouse current occupational status: retired Smoking Status: Never smoker alcohol intake: current alcohol intake frequency: a few times a week Alcohol type: beer substance use type: does not use diet: lactose free caffeine: No what type of physical activity do you participate in: walking and bicycling frequency: 3-4 times per week ROS ROS ED Constitutional Constitutional ED: Denies chills, fever(s), sweats or weight loss Eyes Eyes: Denies blurry vision, change in vision or diplopia ENT ENT ED: Reports rhinorrhea and sore throat; Denies ear pain Cardiovascular Cardiovascular: Reports chest pain; Denies orthopnea, palpitations, paroxysmal nocturnal dyspnea or racing heartbeat Respiratory/Chest Respiratory/Chest: Reports cough and dyspnea; Denies dyspnea on exertion, orthopnea, paroxysmal nocturnal dyspnea or sputum Gastrointestinal Gastrointestinal: Reports diarrhea; Denies abdominal pain, constipation, melena,nausea or vomiting Genitourinary Genitourinary ED: Denies dysuria, hematuria or urinary frequency Musculoskeletal Musculoskeletal: Denies arthralgias, back pain or myalgias Integumentary Denies rash Neurologic Neurologic: Denies headache(s) or paresthesias Endocrine Endocrinology: Denies cold intolerance or heat intolerance EXAM Physical Exam Const Vital Signs: 02/12/23 09:47 02/12/23 09:47 02/12/23 10:15 Temperature 98.2 F Temperature Source Temporal Temporal Pulse Rate 73 68 Respiratory Rate 16 16 Respiratory Effort Normal Respiratory Depth Normal Respiratory Pattern Normal Blood Pressure 108/73 94/56 L Blood Pressure Mean 84 68 Pulse Ox 98 100 Oxygen Delivery Method Room Air Room Air Room Air 02/12/23 09:48 02/12/23 10:22 Temperature 98.1 F Temperature Source Temporal Pulse Rate 63 67 Respiratory Rate 16 17 Respiratory Effort Respiratory Depth Respiratory Pattern Normal Blood Pressure 96/63 Blood Pressure Mean 74 Pulse Ox 97 Oxygen Delivery Method Room Air Positive well nourished and well developed Constitutional Narrative: Vital signs noted. Patient is not hypoxic. He is not tachypneic or tachycardic. General Appearance ED: well developed; Negative for pallor HEENT Reports moist mucous membranes HEENT Narrative: Head is atraumatic and normocephalic. Ears are normal. Nares patent with cleardrainage. Posterior pharynx not erythema or exudate. Uvula is midline. Eyes PERRL and EOMs intact bilaterally General Eye ED: Negative for pale conjunctiva or scleral icterus Neck no lymphadenopathy, supple, no meningeal signs and no JVD Resp normal respiratory effort and No clear to auscultation bilaterally Resp Narrative: Expiratory phase is increased. Patient has wheezing throughout greater in the lower lobes and greater on the left side. There are few crackles noted at the right base. Cardio regular rate, regular rhythm, S1 normal heart sound, S2 normal heart sound and no murmurs GI non-tender, non-distended and no masses Auscultation: normoactive bowel sounds Palpation: soft Extremity normal to inspection Extremity Narrative: There is no asymmetry, swelling, discoloration, leg vein distention, palpable cords or tenderness along the distribution of the deep venous system. Neuro oriented x3 and CN's II-XII intact bilaterally Fidelina Coma Scale: document GCS findings Spontaneous Obeys Commands Oriented 15 Sensorium / Orientation: alert Speech: speech normal Psych mental status grossly normal Skin no wounds and skin turgor normal General Skin Exam: Negative for jaundice or pallor MDM MDM MDM Narrative Medical decision making narrative: With history of influenza diagnosed outside facility approximate 2 weeks and abnormal oscillatory findings need to rule out post influenza pneumonia. Will obtain chest x-ray. CBC as well as electrolyte panel to assess for endorgan dysfunction. Respiratory panel was obtained to evaluate for influenza since theinfluenza is much more prominent in the area. He was treated with albuterol forhis wheezing. Lab Data Attestation: I reviewed the patient's lab results. Lab results narrative: CBC reveals mild anemia. White count and differential are within normal range. Rapid antigen for influenza, COVID and RSV was positive for influenza type A. Labs: Laboratory Results - last 24 hr 02/12/23 10:23 WBC 4.5 RBC 3.92 L Hgb 12.3 L Hct 36.3 L MCV 92.6 MCH 31.4 MCHC 33.9 RDW Std Deviation 46.2 H RDW Coeff of Tin 13.6 Plt Count 202 MPV 9.7 Immature Gran % (Auto) 0.700 Neut % (Auto) 73.0 H Lymph % (Auto) 15.5 L [place] % (Auto) 9.5 Eos % (Auto) 0.9 Baso % (Auto) 0.4 Absolute Neuts (auto) 3.3 Absolute Lymphs (auto) 0.70 L Nucleated RBC % 0 Sodium 139 Potassium 3.7 Chloride 102 Carbon Dioxide 27.0 Anion Gap 10 BUN 16 Creatinine 1.30 Estim Creat Clear Calc 53.03 Est GFR (MDRD) Af Amer 70 Est GFR (MDRD) Non-Af 58 L BUN/Creatinine Ratio 12.3 Glucose 106 Lactic Acid 1.5 Calcium 9.4 Radiography Chest X-Ray - ED: Read by ED Physician (There is no effusion or pneumothorax. There is increased interstitial markings noted. Cardiac silhouette and size normal. Perihilar regions unremarkable. Osseous structures unremarkable.) Diagnostic Testing: Clinical Impression(s) from Imaging Studies Chest X-Ray 02/12/23 10:11 IMPRESSION: 1. Equivocal 1.4 cm pulmonary nodule containing small lucencies overlying the left posterior sixth rib. This is a new finding when compared to 02/10/2022. HRCT chest will help clarify. 2. Minimal subsegmental atelectasis in left lung base. Electronically Signed: Yusuf Law MD at 11:06 EST , Chest CT 02/12/23 11:51 IMPRESSION: Mild peripheral groundglass and nodular opacities septal thickening concerning for atypical or viral pneumonia. Bilateral pulmonary nodules measuring up to 10 mm; recommend close short-term interval follow-up to assess for infectious/inflammatory etiologies versus metastases. Electronically Signed: Aspen Arreola MD at 13:18 EST , Radiology read was reviewed. Since there is a 1.4 cm pulmonary nodule noted andthis is new will obtain CT per radiology recommendation. Treatment and Re-Evaluation :: Patient was informed of his CAT scan results. He received first dose of doxycycline emergency room. He was given a prescription for doxycycline and Tamiflu. Because of the nodule he was referred to Dr. Cristiano Newman for nodule follow-up. Discharge Plan Triage Chief Complaint: Shortness of Breath ED Provider: Rell Valentine Dx/Rx/DC Orders Clinical Impression: Type A influenza, Essential hypertension, Bilateral interstitial pneumonia Instructions: ED Influenza (Adult), ED Pneumonia (Adult) Prescriptions: New doxycycline monohydrate 100 mg capsule 100 mg PO BID Qty: 14 0RF oseltamivir [Tamiflu] 75 mg capsule 75 mg PO BID 5 Days Qty: 10 0RF No Action loratadine [Claritin] 10 mg tablet 10 mg PO DAILY hydrochlorothiazide 12.5 mg capsule 12.5 mg PO BID Patient Comments: TAKES 2 CAPSULES IN MORNING PER MD INSTRUCTIONS lisinopril 20 mg tablet 20 mg PO BID Patient Comments: TAKE 1 TABLET BY MOUTH TWICE DAILY Ubrelvy 100 mg tablet 100 mg PO ONCE PRN (Reason: migraines) Patient Comments: Take 1 (one) Tablet PIERRE once daily as needed for migraine allopurinol 100 MG tablet 200 mg PO DAILY PRN (Reason: gout) diltiazem HCl [DILT-XR] 120 mg capsule,ext.rel 24h degradable 120 mg PO DAILY famotidine 40 mg tablet 40 mg PO Q12H PRN (Reason: GERD) Stand Alone Forms: ED Work / School Excuse Primary Care Provider: Ana Casiano Referrals: Cristiano Newman DO [Med Staff - Active Staff] - 1-2 Weeks Ana Casiano MD [Primary Care Provider] - 3-5 Days if not improving Disposition Disposition: Home, Self Care What to do if you have Problems For any increased pain, shortness of breath, bleeding, nausea or vomiting, chestpain, or any unexpected problems, contact your Primary Care Provider. Call [facility] ([phone]) or report to the closest Emergency Room. Call 911 if necessary. 02/12/23 1420 <Electronically signed by Rell Valentine MD> Cosigner Signature (if applicable): CC: Dr. Ana Casiano MD ~ Signed [facility] Work Phone: 1(205) 810-277812-31-2023 Discharge summary Author Kenton Dillard [facility] February 08, 2023 8:55pm Note Date/Time February 08, 2023 8:55pm [facility] Medical Records Department [address] [place] [address] Emergency Department Summary 02/08/23 MR#: [id number] Acct: [id number] Name: VICKIMARIA LUZ RICH BOOTHE Rep #:[id number] : 1950 72 From: Kenton Dillard MD PCP: Dr. Ana Casiano MD Status:PRE ER Location: ED HPI History of Present Illness Chief Complaint: Other, Pain/Inj Narrative Narrative: Patient presents with soreness in the tip of his penis. Patient had a flulike illness over . He was written for a Z-Joon on [id number]. He took this for several days. His flulike illness is gone. But he now has some irritation of the tip of the penis. It is mostly under the foreskin. He is urinating just fine. No dysuria frequency or urgency. No difficulty starting or stopping. He has no fevers or chills. He states he is tired today but that is because he took 50 mg of Benadryl twice. He had contacted his primary physician and the concern was this was an allergic reaction. He states Benadryl normally makes him feel tired but other than that he feels fine. [facility] Medical History (Updated 02/08/23 @ 20:[address] Kenton Dillard MD) Alcohol use Barretts esophagus (01/05/23) Cancer Cardiology follow-up encounter Chronic cough Closed left hip fracture Dietary restriction Difficulty swallowing Eczema Essential hypertension Fracture of radial head, left, closed Fracture of right patella Fracture of right radius GERD (gastroesophageal reflux disease) Gout History of hiatal hernia History of irregular heartbeat History of renal cell cancer History of renal disease History of stress test Hyperlipidemia Hyperuricemia Migraine headache Non-smoker Obesity Osteoporosis Personal history of supraventricular tachycardia Seasonal allergies Spinal stenosis Wears glasses Wears hearing aid Home Medications allopurinol 100 mg tablet 200 mg PO DAILY PRN gout 12/13/17 [History Last Taken 03/18/18] loratadine 10 mg tablet (Claritin) 10 mg PO DAILY allergies 04/05/20 [History Last Taken Unknown] hydrochlorothiazide 12.5 mg capsule 12.5 mg PO BID 02/20/21 [History Last Taken Unknown] lisinopril 20 mg tablet 20 mg PO BID HTN 02/20/21 [History Last Taken 06/12/21] ubrogepant 100 mg tablet (Ubrelvy) 100 mg PO ONCE PRN migraines 02/20/21 [History Last Taken Unknown] diltiazem HCl 120 mg capsule,extended release 24 hr, controlled (DILT-XR) 120 mgPO DAILY 12/19/22 [History Last Taken Unknown] famotidine 40 mg tablet 40 mg PO Q12H PRN GERD 01/14/23 [History Last Taken Unknown] Allergy/AdvReac Type Severity Reaction Status Date / Time Egg Derived Allergy Severe Food Verified 02/08/23 19:50 Allergy febuxostat [From Uloric] Allergy Intermediate Other Verified 02/08/23 19:50 Penicillins Allergy Anaphylaxis Verified 02/08/23 19:50 omeprazole AdvReac Intermediate Rash Verified 02/08/23 19:50 pantoprazole [From Protonix] AdvReac Intermediate Hives Verified 02/08/23 19:50 Corticosteroids AdvReac Hypertensio Verified 02/08/23 19:50 (Glucocorticoids) n [steroids] Milk Containing Products AdvReac Diarrhea Verified 02/08/23 19:50 (Dairy) [Milk Containing Products] Family History Mother Diabetes Dementia Heart disease tachycardia Father Heart disease Leukemia Surgical History History of colonoscopy History of esophagogastroduodenoscopy (EGD) History of hip surgery History of mandibular surgery History of partial nephrectomy Social History household members: spouse current occupational status: retired Smoking Status: Never smoker alcohol intake: current alcohol intake frequency: a few times a week Alcohol type: beer substance use type: does not use diet: lactose free caffeine: No what type of physical activity do you participate in: walking and bicycling frequency: 3-4 times per week ROS ROS ED Constitutional Constitutional ED: Denies chills, fever(s) or sweats Eyes Eyes: Denies change in vision ENT ENT ED: Denies ear pain, rhinorrhea or sore throat Cardiovascular Cardiovascular: Denies chest pain or palpitations Respiratory/Chest Respiratory/Chest: Denies cough, dyspnea or sputum Gastrointestinal Gastrointestinal: Denies abdominal pain, diarrhea, nausea or vomiting Genitourinary Genitourinary ED: Reports other Details: See his present illness ; Denies dysuria, hematuria or urinary frequency Musculoskeletal Musculoskeletal: Denies arthralgias Integumentary Reports rash; Denies abscess Hematologic/Lymphatic Hematologic/Lymphatic: Denies easy bleeding or easy bruising Allergic/Immunologic Allergic/Immunologic ED: Denies urticaria EXAM Physical Exam Narrative Exam Narrative: General: Patient awake alert no acute distress pleasant. He brings in a list ofhis concerns and the timing of them to help with his evaluation. Very nontoxic. HEENT shows no trauma. No thrush. Lungs are clear and saturations are normal at 97% on room air. Heart is regular. Abdomen is benign Inguinal area is normal. Testicles nontender. There are not ulcerated lesions on the penis. There is some erythema moisture and slight swelling of the foreskin and a few spots on the glans more consistent with balanitis. Const Vital Signs: 02/08/23 19:46 Temperature 97.3 F L Temperature Source Temporal Pulse Rate 72 Respiratory Rate 15 Blood Pressure 104/68 Blood Pressure Mean 80 Pulse Ox 97 Oxygen Delivery Method Room Air MDM MDM MDM Narrative Medical decision making narrative: I think this patient probably has overgrowth of yeast after being on antibiotics. We will get him on antifungal cream. He will follow-up with his primary physician. If he has trouble urinating, fevers, swelling or any other concerns he should return Discharge Plan Triage Chief Complaint: Other, Pain/Inj ED Provider: Kenton Dillard Dx/Rx/DC Orders Clinical Impression: Balanitis, History of antimicrobial use Instructions: ED Balanitis Prescriptions: No Action loratadine [Claritin] 10 mg tablet 10 mg PO DAILY hydrochlorothiazide 12.5 mg capsule 12.5 mg PO BID Patient Comments: TAKES 2 CAPSULES IN MORNING PER MD INSTRUCTIONS lisinopril 20 mg tablet 20 mg PO BID Patient Comments: TAKE 1 TABLET BY MOUTH TWICE DAILY Ubrelvy 100 mg tablet 100 mg PO ONCE PRN (Reason: migraines) Patient Comments: Take 1 (one) Tablet PIERRE once daily as needed for migraine allopurinol 100 MG tablet 200 mg PO DAILY PRN (Reason: gout) diltiazem HCl [DILT-XR] 120 mg capsule,ext.rel 24h degradable 120 mg PO DAILY famotidine 40 mg tablet 40 mg PO Q12H PRN (Reason: GERD) Primary Care Provider: Ana Casiano Referrals: Ana Casiano MD [Primary Care Provider] - 1 Week if not improving Activity Restrictions/Additional Instructions: Use the clotrimazole cream twice a day for the next 2-3 weeks Disposition Disposition: Home, Self Care What to do if you have Problems For any increased pain, shortness of breath, bleeding, nausea or vomiting, chestpain, or any unexpected problems, contact your Primary Care Provider. Call [facility] ([phone]) or report to the closest Emergency Room. Call 911 if necessary. 02/08/232054 <Electronically signed by Kenton Dillard MD> Cosigner Signature (if applicable): CC: Dr. Ana Casiano MD ~ Signed [facility] Work Phone: [phone]) 516-519512-31-2023 Hospital Discharge instructions Additional Instructions Use the clotrimazole cream twice a day [facility] the [facility]: 1(278) 387-292512-06-2023 Discharge summary Author Yusuf Jurado [facility] January 14, 2023 8:55pm Note Date/Time January 14, 2023 7 :09pm [facility] Medical Records Department [address] [place] [address] Emergency Department Summary 01/14/23 MR#: [id number] Acct: [id number] Name: MARIA LUZ SANTANA II Rep #:[id number] : 1950 72 From: Yusuf Jurado MD PCP: Dr. Ana Casiano MD Status:REG ER Location: ED HPI History of Present Illness Chief Complaint: Lower Extremity Injury Narrative Narrative: 72-year-old male past medical history of hypertension, states he fell a few years back and "shattered" his left hip. This required plate and screws by Dr. Salvador. He states over the last few hours, he has had pain in his left hip. Hedenies any fevers or chills, no nausea or vomiting. On occasion he might have low back pain, but denies any loss of bowel or bladder, no saddle anesthesia, noother symptoms. 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 He may have aggravated this. He has soreness to his left greater trochanter area. [facility] Medical History (Updated 01/14/23 @ 20:53 by Yusuf Jurado MD) Alcohol use Barretts esophagus (01/05/23) Cancer Cardiology follow-up encounter Chronic cough Closed left hip fracture Dietary restriction Difficulty swallowing Eczema Essential hypertension Fracture of radial head, left, closed Fracture of right patella Fracture of right radius GERD (gastroesophageal reflux disease) Gout History of echocardiogram History of hiatal hernia History of irregular heartbeat History of renal cell cancer History of renal disease History of stress test Hyperlipidemia Hyperuricemia Migraine headache Non-smoker Obesity Osteopenia Osteoporosis Personal history of supraventricular tachycardia Seasonal allergies Spinal stenosis Wears glasses Wears hearing aid Home Medications allopurinol 100 mg tablet 200 mg PO DAILY PRN gout 12/13/17 [History Last Taken 03/18/18] loratadine 10 mg tablet (Claritin) 10 mg PO DAILY allergies 04/05/20 [History Last Taken Unknown] hydrochlorothiazide 12.5 mg capsule 12.5 mg PO BID 02/20/21 [History Last Taken Unknown] lisinopril 20 mg tablet 20 mg PO BID HTN 02/20/21 [History Last Taken 06/12/21] ubrogepant 100 mg tablet (Ubrelvy) 100 mg PO ONCE PRN migraines 02/20/21 [History Last Taken Unknown] diltiazem HCl 120 mg capsule,extended release 24 hr, controlled (DILT-XR) 120 mgPO DAILY 12/19/22 [History Last Taken Unknown] famotidine 40 mg tablet 40 mg PO Q12H PRN GERD 01/14/23 [History Last Taken Unknown] Allergy/AdvReac Type Severity Reaction Status Date / Time Egg Derived Allergy Severe Food Verified 01/14/23 18:57 Allergy febuxostat [From Uloric] Allergy Intermediate Other Verified 01/14/23 18:57 Penicillins Allergy Anaphylaxis Verified 01/14/23 18:57 omeprazole AdvReac Intermediate Rash Verified 01/14/23 18:57 pantoprazole [From Protonix] AdvReac Intermediate Hives Verified 01/14/23 18:57 Corticosteroids AdvReac Hypertensio Verified 01/14/23 18:57 (Glucocorticoids) n [steroids] Milk Containing Products AdvReac Diarrhea Verified 01/14/23 18:57 (Dairy) [Milk Containing Products] Family History Mother Diabetes Dementia Heart disease tachycardia Father Heart disease Leukemia Surgical History History of colonoscopy History of esophagogastroduodenoscopy (EGD) History of hip surgery History of mandibular surgery History of partial nephrectomy Social History household members: spouse current occupational status: retired Smoking Status: Never smoker alcohol intake: current alcohol intake frequency: a few times a week Alcohol type: beer substance use type: does not use diet: lactose free caffeine: No what type of physical activity do you participate in: walking and bicycling frequency: 3-4 times per week ROS ROS ED ROS Narrative Constitutional: No fever, no chills. HEENT: No sore throat. No neck pain. No loss of vision. No rhinorrhea. Cardiovascular: No chest pain. No palpitations. No pedal edema. Respiratory: No cough, no shortness of breath. Abdominal: No abdominal pain. No nausea. No vomiting. Genitourinary: No dysuria. No hematuria. Musculoskeletal: No myalgias. Left hip pain, worse with movement and touching the area. Occasional low back pain. Neurologic: No headaches. No dizziness. No lightheadedness. No saddle anesthesia. No loss of bowel or bladder. Skin: No rash. No change in color. Psychiatric: No depression. No anxiety. EXAM Physical Exam Narrative Exam Narrative: Afebrile. Vital signs noted. HEENT: Normocephalic. Atraumatic. PERRL, EOMI. Neck soft and supple. No pointtenderness or step off. Cardiovascular: Regular rate and rhythm. No murmurs, rubs, or gallops appreciated. Respiratory: No tachypnea. Lungs clear to auscultation bilaterally. Gastrointestinal: Abdomen soft, nontender, with normoactive bowel sounds. No rebound or guarding. Neurological: Awake. Alert. Nonfocal, nonlateralizing. Skin: No rash. Normal color. No pallor. Musculoskeletal: No pedal edema. Full range of motion extremities. Pelvis is stable. Full range of motion of left hip including flexion extension. Flexion extension of left knee intact. Palpable dorsalis pedis pulse, left. No pain with logrolling of femur. No clinical dislocation of left hip. Const Vital Signs: 01/14/23 18:55 Temperature 98 F Temperature Source Temporal Pulse Rate 97 Respiratory Rate 16 Blood Pressure 125/78 H Blood Pressure Mean 93 Pulse Ox 98 Oxygen Delivery Method Room Air MDM MDM MDM Narrative Medical decision making narrative: In the differential diagnosis is lumbar radiculopathy versus loosening of the hardware versus occult fracture versus bursitis or hip strain. Patient declinesanalgesia, usually takes Tylenol but even declined this. X-rays will be obtained of the left hip and pelvis in 3 views and interpreted by myself independently. On my independent interpretation, there are postsurgical changesbut no evidence of periprosthetic fracture. I reviewed the radiology report which confirms my independent interpretation. At this point in time, I feel thathis pain may be more of a bursitis or muscular in nature. He will take [id number] analgesics as needed and follow-up with his primary care provider. He can also follow-up with his orthopedic surgeon as needed. Return instructions to the emergency department were reviewed. Disposition is discharged home in stable condition. History & Record Review Discussion w/independent historian: Patient Radiography Diagnostic Testing: Clinical Impression(s) from Imaging Studies Hip/Pelvis X-Ray 01/14/23 19:13 IMPRESSION: Degenerative and postoperative change with healed fracture status post ORIF. Electronically Signed: Mukesh Guardado MD at 20:49 EST Reading Location ID and State: [address] [place] [address] , Service support , Discharge Plan Triage Chief Complaint: Lower Extremity Injury ED Provider: Yusuf Jurado Dx/Rx/DC Orders Clinical Impression: Hip strain, Hip pain Instructions: ED Arthralgia, ED Hip Strain Prescriptions: No Action loratadine [Claritin] 10 mg tablet 10 mg PO DAILY hydrochlorothiazide 12.5 mg capsule 12.5 mg PO BID Patient Comments: TAKES 2 CAPSULES IN MORNING PER INSTRUCTIONS lisinopril 20 mg tablet 20 mg PO BID Patient Comments: TAKE 1 TABLET BY MOUTH TWICE DAILY Ubrelvy 100 mg tablet 100 mg PO ONCE PRN (Reason: migraines) Patient Comments: Take 1 (one) Tablet PIERRE once daily as needed for migraine allopurinol 100 MG tablet 200 mg PO DAILY PRN (Reason: gout) diltiazem HCl [DILT-XR] 120 mg capsule,ext.rel 24h degradable 120 mg PO DAILY famotidine 40 mg tablet 40 mg PO Q12H PRN (Reason: GERD) Primary Care Provider: Ana Casiano Referrals: Ana Casiano MD [Primary Care Provider] - 1 Week if not improving Activity Restrictions/Additional Instructions: Tylenol as needed for pain. You may also follow-up with Dr. Salvador, your orthopedic surgeon as needed. Disposition Disposition: Home, Self Care What to do if you have Problems For any increased pain, shortness of breath, bleeding, nausea or vomiting, chestpain, or any unexpected problems, contact your Primary Care Provider. Call [facility] ([phone]) or report to the closest Emergency Room. Call 911 if necessary. 01/14/232054 <Electronically signed by Yusuf Jurado MD> Cosigner Signature (if applicable): CC: Dr. Ana Casiano MD ~ Signed [facility] Work Phone: 1(571) 747-529611-13-2023 Procedure [facility] 12-22-2022 Procedure [facility]11-13-2023 History and physical note Author Kaiden Gill [facility] December 22, 2022 8:50am Note Date/Time December 22, 2022 8:50am [facility] Medical Records Department [address] [place] [address] History & Physical Exam 12/22/22 0850 MR#: [id number] Acct: [id number] Name: MARIA LUZ SANTANA II Rep #:[id number] : 1950 72 From: Kaiden Gill DO PCP: Dr. Ana Casiano MD Status:[facility] Location: [place] [address] History and Physical Date of Admission: 12/22/22 MARIA LUZ SANTANA, is a 72 M who presents to the office today for initial consult. PCP OV 4..23 with back pain (spinal stenosis). Additional difficulty with GERD?CT abd/pel 4.7.23?small gallstones; renal nodules; small hiatal hernia? ?OV 9.8.23 Pt has previous dx of GERD. Currently taking famotidine 40mg BID. Hashad increased dysphagia the last 2 months. Mostly has issues with bread and meats. Did have scopes with Dr. Castaneda 4-5 years ago. He told him he had a hiatalhernia. BM are normal. ROS Const Constitutional: Positive for fatigue and headache(s) ENT ENT: Positive for headache(s) and difficulty swallowing Gastro GI: Positive for bloating, diarrhea, heartburn, difficulty swallowing and excessive flatus; No abdominal pain, belching, change in bowel habits, change in stool character, coffee ground emesis, constipation, cramping, feeling full early, incontinent ofstools, Vomiting blood/hematemesis, Blood in stool, loose stools, Black,tarry stools, nausea/dyspepsia, pain with swallowing, vomiting or other Musc Musculoskeletal: Positive for joint pain, back pain, muscle cramps, numbness, stiffness and tingling Skin Skin: No yellowing of the eye or itchy eyes Neuro Neurology: Positive for headache(s), numbness and tingling Psych Psychiatric: No anxiety and No depression Endo Endocrine: Positive for fatigue Aller/Imm Allergy/Immunologic: No itchy eyes Carlos/Lymp Hematologic/Lymphatic: Positive for easy bruising; No easy bleeding Exam Const General: cooperative and no acute distress Resp Effort & Inspection: normal respiratory effort, able to speak in complete sentences and cough Neuro General: patient alert, patient awake and patient oriented x3 Cognition: normal cognition Speech: speech normal Psych Mental Status: mental status grossly normal Mood: congruent mood Attitude: cooperative Thought Process: normal Thought Content: normal Judgment: judgment good Quality Reporting Tobacco Screening ([facility] 138) Smoking Status: Never smoker Assessment and Plan Assessment and Plan (1) Difficulty swallowing: Status: Acute Qualifiers: Dysphagia type: esophageal phase Qualified Code(s): R13.19 - Other dysphagia Plan: Esophageal dysphagia in the setting of gastroesophageal reflux disease history of Schatzki's ring. We will perform upper endoscopy to evaluate his upper GI tract with [place] off of PPI therapy. He will also get a gastric emptying study will evaluate his hiatal hernia. We discussed possible manometry in the future as he may be a candidate for a fundoplication procedure. I have examined the patient and the H&P has been reviewed. There are no clinicalchanges since date of exam. 12/22/22 0850 <Electronically signed by Kaiden Gill DO> Cosigner Signature (if applicable): CC: Dr. Ana Casiano MD; Kaiden Gill DO~ Signed [facility] Work Phone: Evaluation noteThere may be information available, but it has not been provided by the sender.[facility] Work Phone: Evaluation note* Diagnosis Onset Date Resolution Status Tachyarrhythmia acute Essential hypertension chron ic Hyperlipidemia chronic [facility] Work Phone: Evaluation note* Diagnosis Onset Date Resolution Status Tachyarrhythmia acute Essential hypertension chron ic Hyperlipidemia chronic Chest pain, atypical acute History of renal disease acu [facility] Work Phone: Evaluation note* Diagnosis Onset Date Resolution Status Chest pain, atypical acute History of renal disease acu [facility] Work Phone: Evaluation noteNo assessment information available [facility] Work Phone: Evaluation note* Diagnosis Onset Date Resolution Status Chest pain acute FORREST (dyspnea on exertion) ac [place] Fatigue acute Tachyarrhythmia acute Essential hypertension chron ic Hyperlipidemia [facility] Work Phone: Evaluation note* Diagnosis Onset Date Resolution Status Chest pain acute FORREST (dyspnea on exertion) ac [place] Fatigue acute Tachyarrhythmia acute Essential hypertension chron ic Hyperlipidemia chronic Tachyarrhythmia acute Essential hypertension chron ic Hyperlipidemia [facility] Work Phone: Evaluation note* Diagnosis Onset Date Resolution Status Difficulty swallowing acute Acute upper respiratory infection acute [facility] Work Phone: Evaluation note* Diagnosis Onset Date Resolution Status Difficulty swallowing acute Acute upper respiratory infection acute Palpitations acute Tachyarrhythmia acute Essential hypertension chron ic Hyperlipidemia chronic [facility] Work Phone: Evaluation note* Diagnosis Onset Date Resolution Status Palpitations acute Tachyarrhythmia acute Essential hypertension chron ic Hyperlipidemia chronic Multiple lung nodules on CT acute STEPHANY (obstructive sleep apnea) [facility] Work Phone: Evaluation note* Diagnosis Paraesophageal hernia- Primary Diaphragmatic hernia without mention of obstruction or gangrene Preoperative examination Preoperative examination, unspecified STEPHANY treated with BiPAP Gastroesophageal reflux disease with esophagitis without hemorrhage SVT (supraventricular tachycardia) Other specified cardiac dysrhythmias Hypertension, unspecified type [facility] Gastroesophageal reflux disease with esophagitis without hemorrhage- Primary Hiatal hernia Diaphragmatic hernia without mention of obstruction or gangrene Anthony's esophagus without dysplasia Anthony's esophagus Hypertension, unspecified type STEPHANY treated with BiPAP SVT (supraventricular tachycardia) Other specified cardiac dysrhythmias [facility] Diagnosis Onset Date Resolution Status Multiple lung nodules on CT acute STEPHANY (obstructive sleep apnea) chronic Preoperative cardiovascular examination acute Shortness of breath acute Tachyarrhythmia acute Essential hypertension chron ic Hyperlipidemia chronic [facility] Work Phone: Evaluation note* Diagnosis Pain in thoracic spine [facility]* Diagnosis Paraesophageal hernia- Primary Diaphragmatic hernia without mention of obstruction or gangrene Paraesophageal hernia Diaphragmatic hernia without mention of obstruction or gangrene [facility]* Diagnosis Pain in thoracic spine- Primary Paraesophageal hernia Diaphragmatic hernia without mention of obstruction or gangrene [facility]* Diagnosis Pre-op exam Preoperative examination, unspecified Paraesophageal hernia Diaphragmatic hernia without mention of obstruction or gangrene Tachyarrhythmia Tachycardia, unspecified Migraine with aura and without status migrainosus, not intractable Migraine with aura, without mention of intractable migraine without mention of status migrainosus History of kidney cancer Personal history of malignant neoplasm of kidney STEPHANY (obstructive sleep apnea) Obstructive sleep apnea (adult) (pediatric) Primary hypertension Unspecified essential hypertension Anemia due to other cause, not classified Paraesophageal hernia Diaphragmatic hernia without mention of obstruction or gangrene [facility]* Diagnosis Status post repair of paraesophageal diaphragmatic hernia- Primary Other postprocedural status Anthony's esophagus without dysplasia Anthony's esophagus STEPHANY treated with BiPAP Thrush of mouth and esophagus (HCC) (HCC) Candidiasis of the esophagus [facility] Diagnosis Pre-op examination- Primary Preoperative examination, unspecified Thrush of mouth and esophagus (HCC) (HCC) Candidiasis of the esophagus STEPHANY (obstructive sleep apnea) Obstructive sleep apnea (adult) (pediatric) Primary hypertension Unspecified essential hypertension History of kidney cancer Personal history of malignant neoplasm of kidney Tachyarrhythmia Tachycardia, unspecified Migraine with aura and without status migrainosus, not intractable Migraine with aura, without mention of intractable migraine without mention of status migrainosus History of fundoplication Personal history of surgery to other organs * Assessment & Plan Note - Ciro Steele PA - 09/24/2023 1:09 PM EDT Associated Problem(s): Migraine with aura Managed by PCP. Ubrelvy prn. * Assessment & Plan Note - Ciro Steele PA - 09/24/2023 1:08 PM EDT Associated Problem(s): Tachyarrhythmia Follows with Dr. Klein. On diltiazem. * Assessment & Plan Note - Ciro Steele PA - 09/24/2023 12:29 PM EDT Associated Problem(s): History of kidney cancer Noted. * Assessment & Plan Note - Ciro Steele PA - 09/24/2023 12:29 PM EDT Associated Problem(s): Primary hypertension Off HCTZ. Is restarting lisinopril after briefly being off. * Assessment & Plan Note - Ciro Steele PA - 09/24/2023 12:29 PM EDT Associated Problem(s): STEPHANY (obstructive sleep apnea) On bipap * Assessment & Plan Note - iCro Steele PA - 09/24/2023 12:24 PM EDT Associated Problem(s): Pre-op examination See note for medical conditions which may affect familia-operative course that were addressed at today's visit. documented in this encounter [facility] note* Diagnosis Pre-op exam Preoperative examination, unspecified Paraesophageal hernia Diaphragmatic hernia without mention of obstruction or gangrene Tachyarrhythmia Tachycardia, unspecified Migraine with aura and without status migrainosus, not intractable Migraine with aura, without mention of intractable migraine without mention of status migrainosus History of kidney cancer Personal history of malignant neoplasm of kidney STEPHANY (obstructive sleep apnea) Obstructive sleep apnea (adult) (pediatric) Primary hypertension Unspecified essential hypertension Anemia due to other cause, not classified Pre-op examination- Primary Preoperative examination, unspecified Thrush of mouth and esophagus (HCC) (HCC) Candidiasis of the esophagus STEPHANY (obstructive sleep apnea) Obstructive sleep apnea (adult) (pediatric) Primary hypertension Unspecified essential hypertension History of kidney cancer Personal history of malignant neoplasm of kidney Tachyarrhythmia Tachycardia, unspecified Migraine with aura and without status migrainosus, not intractable Migraine with aura, without mention of intractable migraine without mention of status migrainosus History of fundoplication Personal history of surgery to other organs History of fundoplication Personal history of surgery to other organs documented in this encounter [facility] note* Diagnosis Pre-op exam Preoperative examination, unspecified Paraesophageal hernia Diaphragmatic hernia without mention of obstruction or gangrene Tachyarrhythmia Tachycardia, unspecified Migraine with aura and without status migrainosus, not intractable Migraine with aura, without mention of intractable migraine without mention of status migrainosus History of kidney cancer Personal history of malignant neoplasm of kidney STEPHANY (obstructive sleep apnea) Obstructive sleep apnea (adult) (pediatric) Primary hypertension Unspecified essential hypertension Anemia due to other cause, not classified Pre-op examination- Primary Preoperative examination, unspecified Thrush of mouth and esophagus (HCC) (HCC) Candidiasis of the esophagus STEPHANY (obstructive sleep apnea) Obstructive sleep apnea (adult) (pediatric) Primary hypertension Unspecified essential hypertension History of kidney cancer Personal history of malignant neoplasm of kidney Tachyarrhythmia Tachycardia, unspecified Migraine with aura and without status migrainosus, not intractable Migraine with aura, without mention of intractable migraine without mention of status migrainosus History of fundoplication Personal history of surgery to other organs Status post repair of paraesophageal diaphragmatic hernia- Primary Other postprocedural status STEPHANY treated with BiPAP Anthony's esophagus without dysplasia Anthony's esophagus documented in this encounter [facility] note* Diagnosis Pre-op exam Preoperative examination, unspecified Paraesophageal hernia Diaphragmatic hernia without mention of obstruction or gangrene Tachyarrhythmia Tachycardia, unspecified Migraine with aura and without status migrainosus, not intractable Migraine with aura, without mention of intractable migraine without mention of status migrainosus History of kidney cancer Personal history of malignant neoplasm of kidney STEPHANY (obstructive sleep apnea) Obstructive sleep apnea (adult) (pediatric) Primary hypertension Unspecified essential hypertension Anemia due to other cause, not classified Pre-op examination- Primary Preoperative examination, unspecified Thrush of mouth and esophagus (HCC) (HCC) Candidiasis of the esophagus STEPHANY (obstructive sleep apnea) Obstructive sleep apnea (adult) (pediatric) Primary hypertension Unspecified essential hypertension History of kidney cancer Personal history of malignant neoplasm of kidney Tachyarrhythmia Tachycardia, unspecified Migraine with aura and without status migrainosus, not intractable Migraine with aura, without mention of intractable migraine without mention of status migrainosus History of fundoplication Personal history of surgery to other organs Positive colorectal cancer screening using Cologuard test- Primary Diarrhea, unspecified type documented in this encounter [facility] note* Diagnosis Pre-op exam Preoperative examination, unspecified Paraesophageal hernia Diaphragmatic hernia without mention of obstruction or gangrene Tachyarrhythmia Tachycardia, unspecified Migraine with aura and without status migrainosus, not intractable Migraine with aura, without mention of intractable migraine without mention of status migrainosus History of kidney cancer Personal history of malignant neoplasm of kidney STEPHANY (obstructive sleep apnea) Obstructive sleep apnea (adult) (pediatric) Primary hypertension Unspecified essential hypertension Anemia due to other cause, not classified Pre-op examination- Primary Preoperative examination, unspecified Thrush of mouth and esophagus (HCC) (HCC) Candidiasis of the esophagus STEPHANY (obstructive sleep apnea) Obstructive sleep apnea (adult) (pediatric) Primary hypertension Unspecified essential hypertension History of kidney cancer Personal history of malignant neoplasm of kidney Tachyarrhythmia Tachycardia, unspecified Migraine with aura and without status migrainosus, not intractable Migraine with aura, without mention of intractable migraine without mention of status migrainosus History of fundoplication Personal history of surgery to other organs Encounter for screening colonoscopy- Primary Special screening for malignant neoplasms, colon Positive colorectal cancer screening using Cologuard test Diarrhea, unspecified type [facility] Pre-op exam Preoperative examination, unspecified Paraesophageal hernia Diaphragmatic hernia without mention of obstruction or gangrene Tachyarrhythmia Tachycardia, unspecified Migraine with aura and without status migrainosus, not intractable Migraine with aura, without mention of intractable migraine without mention of status migrainosus History of kidney cancer Personal history of malignant neoplasm of kidney STEPHANY (obstructive sleep apnea) Obstructive sleep apnea (adult) (pediatric) Primary hypertension Unspecified essential hypertension Anemia due to other cause, not classified Pre-op examination- Primary Preoperative examination, unspecified Thrush of mouth and esophagus (HCC) (HCC) Candidiasis of the esophagus STEPHANY (obstructive sleep apnea) Obstructive sleep apnea (adult) (pediatric) Primary hypertension Unspecified essential hypertension History of kidney cancer Personal history of malignant neoplasm of kidney Tachyarrhythmia Tachycardia, unspecified Migraine with aura and without status migrainosus, not intractable Migraine with aura, without mention of intractable migraine without mention of status migrainosus History of fundoplication Personal history of surgery to other organs Adenomatous rectal polyp- Primary Benign neoplasm of rectum and anal canal Encounter for immunization Need for other specified prophylactic vaccination against single bacterial disease documented in this encounter [facility] note* Diagnosis Onset Date Resolution Status Admit Date Difficulty swallowing acute Aug 7:55am [facility] Work Phone: Hospital Discharge instructions Additional Instructions Your exam, history and work-up are unremarkable. Clinically this does not sound like cardiac chest pain. Follow-up with your doctor if not improving or return if worse.[facility] Work Phone: Hospital Discharge instructions Additional Instructions Tylenol as needed for pain. You may also follow-up with Dr. Salvador, your orthopedic surgeon as needed.[facility] Work Phone: Hospital Discharge instructions Additional Instructions Follow-up with your PCP and return for any worsening of your symptoms.[facility] Work Phone: Instructions* Instruction Description Start Date CompletedPatient advised to follow-up with Primary Care Physician for BMI management. [facility] Work Phone: Instructions* Instruction Description Start Date Completed [facility] Work Phone: Reason for referral (narrative)* Outpatient Procedure (Routine) - New Request Specialty Diagnoses / Procedures Referred By Ankit barraza Referred To Contact [facility] Diagnoses Thrush of mouth and esophagus (HCC) (HCC) Procedures EGD DIAGNOSTIC ESOPHAGOGASTRODUODENOSC OPY TRANSORAL DIAGNOSTIC Ruth Sullivan MD [address] [employer] [address] [place] [id number] [facility] [address] [place] [address] Referral ID Status Reason Start Date Expiration Date Visits Requested Visits Authorized [id number] New Request Auto-Generat ed Referral 08/28/2023 08/27/2024 1 1 [facility] for referral (narrative)* Diagnostic Procedure Only (Routine) - Authorized Specialty Diagnoses / Procedures Referred By Ankit barraza Referred To Contact XR IMAGING Diagnoses History of fundoplication Procedures XR UPPER GI SINGLE CONTRAST RADIOLOGIC EXAM UPR GI TRC SINGLE CONTRAST STUDY Ruth Sullivan MD [address] [employer] [address] [place] [phone] Xr Imaging [facility] Referral ID Status Reason Start Date Expiration Date Visits Requested Visits Authorized [id number] Authorized Auto-Generat ed Referral 09/24/2023 10/23/2024 1 1 * Outpatient Procedure (Routine) - Closed Specialty Diagnoses / Procedures Referred By Ankit barraza Referred To Contact [facility] Diagnoses Thrush of mouth and esophagus (HCC) (HCC) Procedures EGD DIAGNOSTIC EGD DIAGNOSTIC ESOPHAGOGASTRODUODENOSC OPY TRANSORAL DIAGNOSTIC Ruth Sullivan MD [address] [employer] [address] [place] [id number] [facility] [address] [place] [address] Referral ID Status Reason Start Date Expiration Date V isits Requested Visits Authorized [id number] Closed Auto-Generate d Referral 08/28/2023 08/27/2024 1 1 [facility] for referral (narrative)* Diagnostic Procedure Only (Routine) - Closed Specialty Diagnoses / Procedures Referred By Ankit t Referred To Contact XR IMAGING Diagnoses History of fundoplication Procedures XR UPPER GI SINGLE CONTRAST RADIOLOGIC EXAM UPR GI TRC SINGLE CONTRAST STUDY Ruth Sullivan MD 1 [facility] [place] [place] [phone] [place] [address] Referral ID Status Reason Start Date Expiration Date V isits Requested Visits Authorized [id number] Closed Auto-Generate d Referral 09/24/2023 10/23/2024 1 1 [facility] for referral (narrative)No reason for referral [facility]: Reason for visit Narrative* Outpatient Procedure (Routine) - Closed Specialty Diagnoses / Procedures Referred By Ankit barraza Referred To Contact [facility] Diagnoses Thrush of mouth and esophagus (HCC) (HCC) Procedures EGD DIAGNOSTIC EGD DIAGNOSTIC ESOPHAGOGASTRODUODENOSC OPY TRANSORAL DIAGNOSTIC Ruth Sullivan MD [address] [employer] [address] [place] [address] [facility] [address] [place] [address] Referral ID Status Reason Start Date Expiration Date V isits Requested Visits Authorized [id number] Closed Auto-Generate d Referral 08/28/2023 08/27/2024 1 1 [facility] for visit Narrative* Diagnostic Procedure Only (Routine) - Closed Specialty Diagnoses / Procedures Referred By Ankit Referred To Contact XR IMAGING Diagnoses History of fundoplication Procedures XR UPPER GI SINGLE CONTRAST RADIOLOGIC EXAM [facility] GI TR SINGLE CONTRAST STUDY Ruth Sullivan MD [address] [employer] [address] [place] [address] [place] [address] Referral ID Status Reason Start Date Expiration Date V isits Requested Visits Authorized [id number] Closed Auto-Generate d Referral 09/24/2023 10/23/2024 1 1 [facility] for visit Narrative* Auth/Cert (Routine) Specialty Diagnoses / Procedures Referred By Ankit barraza Referred To Contact [facility] Diagnoses Other fecal abnormalities Procedures COLONOSCOPY FLX W/REMOVAL OF FOREIGN BODY(S) Amb[facility] [address] [place] [address] Phone: tel: Referral ID Status Reason Start Date Expiration Date Visits Re quested Visits Authorized [id number] 1 1 [facility] Chief Complaint Chief Complaint Description Start Date mid back pain Preliminary chief co mplaint data, not yet signed by the author as of Chief Complaint Description Start Date lower back pain Preliminary chief co mplaint data, not yet signed by the author as of Advance Directives No Advanced Directives Records Found Advance Directive Response Recorded Date/ Time Advance Directives No January 7:11am Living Will Yes June 09, 2020 3: 49pm Power of Csm Consultant Yes June 09, 2020 3:49pm Advance Directive Response Recorded Date/ Time Advance Directives No January 7:11am Living Will Yes June 12, 2021 12 :08pm Power of Csm Consultant Yes June 12, 2021 12:08pm Advance Directive Response Recorded Date/ Time Name of Medical Power of Csm Consultant KAYLAN Su Santana June 12, 2021 12:08pm Advance Directives No January 7:11am Living Will Yes June 12, 2021 12 :08pm Power of Csm Consultant Yes June 12, 2021 12:08pm Advance Directive Response Recorded Date/ Time Advance Directives No January 6:11am Living Will No December 18 3:57pm Power of Csm Consultant No December 18, 2021 3:57pm Advance Directive Response Recorded Date/ Time Advance Directives No January 6:11am Living Will No February 10 3 8:20am Power of Csm Consultant No February 10 023 8:20am Advance Directive Response Recorded Date/ Time Advance Directives No January 7:11am Living Will No February 10 3 9:20am Power of Csm Consultant No February 10 023 9:20am Advance Directive Response Recorded Date/ Time Advance Directives No January 6:11am Living Will No December 19 023 10:42am Power of Csm Consultant No December 19, 2022 10:42am Advance Directive Response Recorded Date/ Time Advance Directives No January 6:11am Living Will No January 14 7:22pm Power of Csm Consultant No January 14, 2023 7:22pm Advance Directive Response Recorded Date/ Time Advance Directives No January 6:11am Living Will No February 08, 023 8:06pm Power of Csm Consultant No February 08, 2023 8:06pm Advance Directive Response Recorded Date/ Time Advance Directives No January 6:11am Living Will No February 12 10:14am Power of Csm Consultant No February 12 024 10:14am Advance Directive Response Recorded Date/ Time Advance Directives No January 6:11am Living Will No February 13 6:24pm Power of Csm Consultant No February 13 024 6:24pm Advance Directive Response Recorded Date/ Time Advance Directives No January 7:11am Living Will No February 13 7:24pm Power of Csm Consultant No February 13 7:24pm Advance Directive Response Recorded Date/ Time Name of Medical Power of Csm Consultant Su May 01, 2023 2:45pm Advance Directives No January 7:11am Living Will Yes May 01, 2023 2:45pm Power of Csm Consultant Yes April 30 2:45pm Documents on File Type Date Recorded 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 anation Advance Directive(s) 05/05/2023 2:32 PM Date Activated Date Inactivated Comments 05/12/2023 12:48 PM 05/13/2023 5:02 PM Question Answer Comments Full Code Order Discussed With: Patient Documents on File Type Date Recorded 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 anation Advance Directive(s) 05/05/2023 2:32 PM Date Activated Date Inactivated Comments 05/12/2023 12:48 PM 05/13/2023 5:02 PM Question Answer Comments Full Code Order Discussed With: Patient Advance Directive Response Recorded Date/ Time Advance Directives No January 7:11am Family History No Family History Records Found Relationship Condition Age at Onset Recorded Date/T shakeel mother Diabetes mellitus Unknown Dementia Unknown Cardiac disease Unknown father Cardiac disease Unknown Leukemia Unknown Chief Complaint and Reason for Visit Chief Complaint SVT (CASIANO) INT LABS HYPERLIPIDEMIA CAD/ASHD CAD/ASHD EORDER Reason for Visit Tachyarrhythmia Essential hypertension Hyperlipidemia Chief Complaint SVT (CASIANO) INT LABS HYPERLIPIDEMIA 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 Reason for Visit Tachyarrhythmia Essential hypertension Hyperlipidemia Chief Complaint SVT (CASIANO) INT LABS HYPERLIPIDEMIA 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 ROBOTIC PARTIAL NEPHRECTOMY ROBOTIC PARTIAL NEPHRECTOMY Reason for Visit Tachyarrhythmia Essential hypertension Hyperlipidemia Chest pain, atypical History of renal disease Chief Complaint HYPERLIPIDEMIA 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 ROBOTIC PARTIAL NEPHRECTOMY ROBOTIC PARTIAL NEPHRECTOMY ROBOTIC PARTIAL NEPHRECTOMY Reason for Visit Chest pain, atypical History of renal disease Chief Complaint HYPERLIPIDEMIA 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 ROBOTIC PARTIAL NEPHRECTOMY ROBOTIC PARTIAL NEPHRECTOMY ROBOTIC PARTIAL NEPHRECTOMY COVID POS Reason for Visit Chest pain, atypical History of renal disease Chief Complaint EORDER 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 PARTIAL NEPHRECTOMY ROBOTIC PARTIAL NEPHRECTOMY ROBOTIC PARTIAL NEPHRECTOMY ROBOTIC PARTIAL NEPHRECTOMY COVID POS 2 DRS / 2 ORDERS- EORDER ERNIE Reason for Visit Chest pain, atypical History of renal disease Chief Complaint 2 DRS / 2 ORDERS- EO RDER ERNIE DYSPHAGIA 2 DRS / 2 ORDERS YEARLY DRUG SCREEN/GILCREST Chief Complaint DYSPHAGIA 2 DRS / 2 ORDERS YEARLY DRUG SCREEN/GILCREST chest pain Chief Complaint DYSPHAGIA 2 DRS / 2 ORDERS YEARLY DRUG SCREEN/GILCREST chest pain PAIN- COPY PCP Chief Complaint 2 DRS / 2 ORDERS YEARLY DRUG SCREEN/GILCREST chest pain PAIN- COPY PCP CP Chief Complaint 2 DRS / 2 ORDERS YEARLY DRUG SCREEN/GILCREST chest pain PAIN- COPY PCP CP s/p [facility] ED 12-30 E ORDER Reason for Visit Chest pain FORREST (dyspnea on exertion) Fatigue Tachyarrhythmia Essential hypertension Hyperlipidemia Chief Complaint 2 DRS / 2 ORDERS YEARLY DRUG SCREEN/GILCREST chest pain PAIN- COPY PCP CP s/p [facility] ED 12-30 E ORDER CHEST PAIN Reason for Visit Chest pain FORREST (dyspnea on exertion) Fatigue Tachyarrhythmia Essential hypertension Hyperlipidemia Chief Complaint CP s/p [facility] ED 12- E ORDER CHEST PAIN 3 M FU Reason for Visit Chest pain FORREST (dyspnea on exertion) Fatigue Tachyarrhythmia Essential hypertension Hyperlipidemia Tachyarrhythmia Essential hypertension Hyperlipidemia Chief Complaint CP s/p [facility] ED 1230 E ORDER CHEST PAIN 3 M FU KIDNEY CA RECLAST Reason for Visit Chest pain FORREST (dyspnea on exertion) Fatigue Tachyarrhythmia Essential hypertension Hyperlipidemia Tachyarrhythmia Essential hypertension Hyperlipidemia Chief Complaint CHEST PAIN 3 M FU KIDNEY CA RECLAST Reason for Visit Tachyarrhythmia Essential hypertension Hyperlipidemia Chief Complaint Consult COUGH/POST NASAL DRAINAGE PE/NON DOT/DRUG/BAT/GILCREST Reason for Visit Difficulty swallowin g Acute upper respiratory infection Chief Complaint Consult COUGH/POST NASAL DRAINAGE PE/NON DOT/DRUG/BAT/GILCREST 6 M FU Reason for Visit Difficulty swallowin g Acute upper respiratory infection Palpitations Tachyarrhythmia Essential hypertension Hyperlipidemia Chief Complaint Consult COUGH/POST NASAL DRAINAGE PE/NON DOT/DRUG/BAT/GILCREST 6 M FU PALPITATIONS ERNIE TO READ HEADACHE Reason for Visit Difficulty swallowin g Acute upper respiratory infection Palpitations Tachyarrhythmia Essential hypertension Hyperlipidemia Chief Complaint Consult COUGH/POST NASAL DRAINAGE PE/NON DOT/DRUG/BAT/GILCREST 6 M FU PALPITATIONS ERNIE TO READ HEADACHE Amb Documentation HIP PAIN Reason for Visit Difficulty swallowin g Acute upper respiratory infection Palpitations Tachyarrhythmia Essential hypertension Hyperlipidemia Chief Complaint Consult COUGH/POST NASAL DRAINAGE PE/NON DOT/DRUG/BAT/GILCREST 6 M FU PALPITATIONS ERNIE TO READ 30 DAY MONITOR HEADACHE Amb Documentation HIP PAIN PAIN OTHER Reason for Visit Difficulty swallowin g Acute upper respiratory infection Palpitations Tachyarrhythmia Essential hypertension Hyperlipidemia Chief Complaint Consult COUGH/POST NASAL DRAINAGE PE/NON DOT/DRUG/BAT/GILCREST 6 M FU PALPITATIONS ERNIE TO READ 30 DAY MONITOR HEADACHE Amb Documentation HIP PAIN PAIN OTHER SOB Reason for Visit Difficulty swallowin g Acute upper respiratory infection Palpitations Tachyarrhythmia Essential hypertension Hyperlipidemia Chief Complaint PE/NON DOT/DRUG/BAT/ GILCREST 6 M FU PALPITATIONS ERNIE TO READ 30 DAY MONITOR HEADACHE Amb Documentation HIP PAIN PAIN OTHER SOB FLU A ER Follow up nodule reestablish E ORDERS THORACIC BACK PAIN Reason for Visit Palpitations Tachyarrhythmia Essential hypertension Hyperlipidemia Multiple lung nodules on CT STEPHANY (obstructive sleep apnea) Chief Complaint PALPITATIONS ERNIE T O READ 30 DAY MONITOR HEADACHE Amb Documentation HIP PAIN PAIN OTHER SOB FLU A ER Follow up nodule reestablish E ORDERS THORACIC BACK PAIN SURGICAL CLEARANCE Reason for Visit Multiple lung nodule s on CT STEPHANY (obstructive sleep apnea) Preoperative cardiovascular examination Shortness of breath Tachyarrhythmia Essential hypertension Hyperlipidemia Chief Complaint Amb Documentation HIP PAIN PAIN OTHER SOB FLU A ER Follow up nodule reestablish E ORDERS THORACIC BACK PAIN SURGICAL CLEARANCE chest pain Reason for Visit Multiple lung nodule s on CT STEPHANY (obstructive sleep apnea) Preoperative cardiovascular examination Shortness of breath Tachyarrhythmia Essential hypertension Hyperlipidemia Chief Complaint Admit Date HIP/BACK RX HERE February 29, 2024 9 :00am HEADACHE May 23, 2024 2:5 3pm PSA June 20, 2024 10:03 am Chief Complaint Admit Date HEADACHE May 23, 2024 2:5 3pm PSA June 20, 2024 10:03 am PAIN IN ESOPHAGUS August 19, 2024 7:55 am Reason for Visit Admit Date Difficulty swallowing August 19, 2024 7: 55am Reason for Referral Specialty Diagnoses / Procedures Referred By Contac t Referred To Contact Diagnoses Gastroesophageal reflux disease with esophagitis without hemorrhage Procedures CONSULT TO PRE-SURGICAL TESTING (AG) Ruth Sullivan MD [address] [id number] [address] [place] [address] Referral ID Status Reason Start Date Expiration Date Visits Requested Visits Authorized [id number] Ref Not Required PCP Requested Referral 04/02/2023 07/01/2023 1 1 Specialty Diagnoses / Procedures Referred By Contac t Referred To Contact Diagnoses Paraesophageal hernia Procedures CONSULT TO PRE-SURGICAL TESTING (AG) Ruth Sullivan MD [address] [id number] [address] [place] [address] Referral ID Status Reason Start Date Expiration Date Visits Requested Visits Authorized [id number] Ref Not Required PCP Requested Referral 04/23/2023 07/22/2023 1 1 Summary Purpose Additional Source Comments Reason for Visit (unrecogniz ed section and content) Reason Comments Physical Therapy Specialty Diagnoses / Procedures Referred By Contac t Referred To Contact Physical Therapy / PHYSICAL THERAPY Diagnoses back pain pt will hand carry referal to appt Procedures NEW RS PT SPINE Alexia Richardson [address] [facility] [address] [place] [address] Pantera Gallegos, PT [address] [place] [address] Referral ID Status Reason Start Date Expiration Date V isits Requested Visits Authorized [id number] Authorized 02/09/2023 02/09/2024 99 99 Reason For Visit Description Start Date New/Est - 1st visit with physician 04/22 Preliminary reason f or visit data, not yet signed by the author as of mid back pain Reason For Visit Description Start Date Test Result Preliminary reason f or visit data, not yet signed by the author as of lower back pain Reason Comments Follow Up Reason Comments Medical Clearance Reason Comments Patient Update Reason Comments PT Eval Reason Comments Hospital Follow Up Reason Comments Medication Problem Zofran Reason Comments Returning Patient's Call Reason Comments Patient Question Reason Comments Patient Question Returning Patient's Call Reason Comments Patient Question Follow Up Reason Comments Established Patient Reason Comments Orders Schedule EGD Reason Comments Appointment Reason Comments Appointment EGD new appointment. Reason Comments Established Patient Reason Comments Consult Positive cologuard Reason Comments Follow Up colonoscopy Reason Comments 04-01-2024 [facility] Goals (unrecognized section and content) Goals may be documented in a n alternate sectionGoals may be documented in an alternate sectionGoals may be documented in an alternate sectionGoals may be documented in an alternate sectionGoals may be documented in an alternate sectionGoals may be documented in an alternate sectionGoals may be documented in an alternate sectionGoals may be documented in an alternate sectionGoals may be documented in an alternate sectionGoals may be documented in an alternate sectionGoals may be documented in an alternate sectionGoals may be documented in an alternate sectionGoals may be documented in an alternate sectionGoals may be documented in an alternate sectionGoals may be documented in an alternate sectionGoals may be documented in an alternate sectionGoals may be documented in an alternate sectionGoals may be documented in an alternate sectionGoals may be documented in an alternate sectionGoals may be documented in an alternate sectionGoals may be documented in an alternate sectionGoals may be documented in an alternate section Care Teams (unrecognized sec tion and content) Team Status: Active Member Role Status Dates Dr. Ana Casiano MD Family Provider Active Dr. Ana Casiano MD Primary Care Provider Active Team Status: Inactive Member Role Status Dates Dr. Ana Casiano MD Primary Care Provider, Referring P rovider Active Feng Richardson PA, PA Attending Provider Active Team Status: Inactive Member Role Status Dates Dr. Ana Casiano MD Primary Care Provider, Referring P rovider Active Yamilet Benavides BOTTOM IRONER, BOTTOM IRONER-C Attending Provider Active Team Status: Inactive Member Role Status Dates Dr. Ana Casiano MD Primary Care Provide r, Attending Provider, Referring Provider Active Dr. Matt Hopkins DO Other Provider Active Team Status: Inactive Member Role Status Dates Dr. Ana Casiano MD Primary Care Provider Active Dr. Aime De La O DDS Attending Provider Active Team Status: Inactive Member Role Status Dates Dr. Ana Casiano MD Primary Care Provider Active Dr. Jc Villarreal MD Attending Provider, Emergency Pro vider Active Team Status: Inactive Member Role Status Dates Dr. Ana Casiano MD Primary Care Provider Active Dr. Jacquelyn Levine MD Attending Provider, Referring Provider Active Team Status: Inactive Member Role Status Dates Dr. Ana Casiano MD Primary Care Provide r, Attending Provider, Referring Provider Active Team Status: Inactive Member Role Status Dates Dr. Ana Casiano MD Primary Care Provider Active Dr. Kenton Dillard MD Attending Provider, Emergency Provider Active Team Status: Inactive Member Role Status Dates Dr. Ana Casiano MD Primary Care Provider Active Yamilet Benavides BOTTOM IRONER, BOTTOM IRONER-C Attending Provider Active Team Status: Inactive Member Role Status Dates Dr. Ana Casiano MD Primary Care Provider Active Yamilet Benavides BOTTOM IRONER, BOTTOM IRONER-C Attending Provider, Referring P rovider Active Team Status: Active Member Role Status Dates Dr. Ana Casiano MD Primary Care Provider Active Dr. Dwayne Klein MD Attending Provider Active Team Status: Active Member Role Status Dates Dr. Ana Casiano MD Primary Care Provide r, Attending Provider, Referring Provider Active Team Status: Inactive Member Role Status Dates Dr. Ana Casiano MD Primary Care Provider Active Dr. Dwayne Klein MD Attending Provider Active Team Status: Inactive Member Role Status Dates Dr. Ana Casiano MD Primary Care Provider Active Dr. Matt Hopkins DO Attending Provider, Referring Provider Active Team Status: Inactive Member Role Status Dates Dr. Ana Casiano MD Primary Care Provider Active Dr. Eduardo Wilhelm MD Attending Provider, Referr ing Provider Active Team Status: Inactive Member Role Status Dates Dr. Ana Casiano MD Primary Care Provider, Referring P rovider Active Dr. Kaiden Gill DO Attending Provider Active Team Status: Inactive Member Role Status Dates Dr. Ana Casiano MD Primary Care Provider, Referring P rovider Active Ata ADAME PA Attending Provider Active Team Status: Inactive Member Role Status Dates Dr. Ana Casiano MD Primary Care Provider Active Ata ADAME PA Attending Provider, Referring Provi mau Active Team Status: Active Member Role Status Dates Dr. Ana Casiano MD Primary Care Provider, Referring P rovider Active Dr. Kaiden Gill DO Attending Provider, Other Prov ider Active Team Status: Active Member Role Status Dates Dr. Ana Casiano MD Primary Care Provider Active Yamilet Benavides BOTTOM IRONER, BOTTOM IRONER-C Attending Provider Active Team Status: Inactive Member Role Status Dates Dr. Ana Casiano MD Primary Care Provider Active Dr. Jaqueline Campbell MD Attending Provider, Referring P rovider Active Team Status: Active Member Role Status Dates Dr. Ana Casiano MD Primary Care Provider Active Richie Lai BOTTOM IRONER, BOTTOM IRONER-C Attending Provider Active Team Status: Inactive Member Role Status Dates Dr. Ana Casiano MD Primary Care Provider Active Yusuf Jurado MD Referring Provider, Emergency Provid er Active Team Status: Active Member Role Status Dates Dr. Ana Casiano MD Primary Care Provider Active Dr. Dwayne Klein MD Attending Provider Active Yamilet Benavides BOTTOM IRONER, BOTTOM IRONER-C Referring Provider Active Team Status: Inactive Member Role Status Dates Dr. Ana Casiano MD Primary Care Provider Active Dr. Kenton Dillard MD Emergency Provider Active Team Status: Inactive Member Role Status Dates Dr. Ana Casiano MD Primary Care Provider Active Yusuf Jurado MD Attending Provider, Referring Provider, Emergency Provider Active Team Status: Inactive Member Role Status Dates Dr. Ana Casiano MD Primary Care Provider Active Dr. Rell Valentine MD Emergency Provider Active Team Status: Inactive Member Role Status Dates Dr. Ana Casiano MD Primary Care Provider, Referring P rovider Active Dr. Cristiano Newman DO Attending Provider Active Team Status: Active Member Role Status Dates Dr. Ana Casiano MD Primary Care Provider Active JIMMY ORELLANA Attending Provider, Referring Pr ovider Active Team Status: Inactive Member Role Status Dates Dr. Ana Casiano MD Primary Care Provider Active Dr. Rell Valentine MD Attending Provider, Emergency Provi mau Active Team Status: Inactive Member Role Status Dates Dr. Ana Casiano MD Primary Care Provider Active Dr. Dwayne Klein MD Attending Provider, Referring Pro vider Active Budget Controller Relationship Specialty Start Date End Date Ana Casiano MD [address] [facility] [place] [address] PCP - General Family Medicine 01/12/18 Budget Controller Relationship Specialty Start Date End Date Ana Casiano MD [address] [facility] [place], [place] [address] PCP - General Family Medicine 01/12/18 Dwayne Klein MD [address] [place] [address] Cardiology 04/02/23 Budget Controller Relationship Specialty Start Date End Date Ana Casiano MD [address] [place] [address] PCP - General Family Medicine 01/12/18 Dwayne Klein MD [address] [place] [address] Cardiology 04/02/23 Team Status: Active Member Role Status Dates Dr. Ana Casiano MD Primary Care Provider Active JIMMY ORELLANA Attending Provider, Referring Provid er Active Budget Controller Relationship Specialty Start Date End Date Ana Casiano MD [address] [facility] [place] [address] PCP - General Family Medicine 01/12/18 Dwayne Klein MD [address] [place] [address] Cardiology 04/02/23 Budget Controller Relationship Specialty Start Date End Date Ana Casiano MD [address] [place] [address] PCP - General Family Medicine 01/12/18 Dwayne Klein MD [address] [place] [address] Cardiology 04/02/23 Team Status: Inactive Member Role Status Dates Dr. Ana Casiano MD Primary Care Provider Active JIMMY ORELLANA Attending Provider, Referring Provid er Active Team Status: Inactive Member Role Status Dates Dr. Ana Casiano MD Primary Care Provider, Attending Iris cano Active Budget Controller Relationship Specialty Start Date End Date Ana Casiano MD [address] [place] [address] PCP - General Family Medicine 01/12/18 Dwayne Klein MD [address] [place] [address] Cardiology 04/02/23 Budget Controller Relationship Specialty Start Date End Date Ana Casiano MD [address] [place] [address] PCP - General Family Medicine 01/12/18 Dwayne Klein MD [address] [facility] [address] [place] [address] Cardiology 04/02/23 Budget Controller Relationship Specialty Start Date End Date Ana Casiano MD [address] [facility] [place] [address] PCP - General Family Medicine 01/12/18 Dwayne Klein MD [address] [place] [address] Cardiology 04/02/23 Team Status: Inactive Member Role Status Dates Dr. Ana Casiano MD Primary Care Provider Active Dr. Jc Villarreal MD Emergency Provider Active Budget Controller Relationship Specialty Start Date End Date Ana Casiano MD [address] [place] [address] PCP - General Family Medicine 01/12/18 Dwayne Klein MD [address] [place] [address] Cardiology 04/02/23 Budget Controller Relationship Specialty Start Date End Date Ana Casiano MD [address] [place] [address] PCP - General Family Medicine 01/12/18 Dwayne Klein MD [address] [place] [address] Cardiology 04/02/23 Budget Controller Relationship Specialty Start Date End Date Ana Casiano MD [address] [facility] [place] [address] PCP - General Family Medicine 01/12/18 Dwayne Klein MD [address] [place] [address] Cardiology 04/02/23 Budget Controller Relationship Specialty Start Date End Date Ana Casiano MD [address] [place] [address] PCP - General Family Medicine 01/12/18 Dwayne Klein MD [address] [place] [address] Cardiology 04/02/23 Budget Controller Relationship Specialty Start Date End Date Ana Casiano MD [address] [facility] [place] [address] PCP - General Family Medicine 01/12/18 Dwayne Klein MD [address] [place] [address] Cardiology 04/02/23 Budget Controller Relationship Specialty Start Date End Date Ana Casiano MD [address] [facility] [place] [address] PCP - General Family Medicine 01/12/18 Dwayne Klein MD [address] [facility] [address] [place] [address] Cardiology 04/02/23 Budget Controller Relationship Specialty Start Date End Date Ana Casiano MD [address] [facility] [place] [address] PCP - General Family Medicine 01/12/18 Dwayne Klein MD [address] [facility] [address] [place] [address] Cardiology 04/02/23 Budget Controller Relationship Specialty Start Date End Date Ana Casiano MD [address] [place] [address] PCP - General Family Medicine 01/12/18 Dwayne Klein MD [address] [place] [address] Cardiology 04/02/23 Budget Controller Relationship Specialty Start Date End Date Ana Casiano MD [address] [place] [address] PCP - General Family Medicine 01/12/18 Dwayne Klein MD [address] [place] [address] Cardiology 04/02/23 Budget Controller Relationship Specialty Start Date End Date Ana Casiano MD [address] [place] [address] PCP - General Family Medicine 01/12/18 Dwayne Klein MD [address] [place] [address] Cardiology 04/02/23 Budget Controller Relationship Specialty Start Date End Date Ana Casiano MD [address] [place] [address] PCP - General Family Medicine 01/12/18 Dwayne Klein MD [address] [place] [address] Cardiology 04/02/23 Budget Controller Relationship Specialty Start Date End Date Ana Casiano MD [address] [place] [address] PCP - General Family Medicine 01/12/18 Dwayne Klein MD [address] [place] [address] Cardiology 04/02/23 Budget Controller Relationship Specialty Start Date End Date Ana Casiano MD [address] [place] [address] PCP - General Family Medicine 01/12/18 Dwayne Klein MD [address] [place] [address] Cardiology 04/02/23 Budget Controller Relationship Specialty Start Date End Date Ana Casiano MD [address] [place] [address] PCP - General Family Medicine 01/12/18 Dwayne Klein MD [address] [place] [address] Cardiology 04/02/23 Budget Controller Relationship Specialty Start Date End Date Ana Casiano MD [address] [place] [address] PCP - General Family Medicine 01/12/18 Dwayne Klein MD [address] [place] [address] Cardiology 04/02/23 Budget Controller Relationship Specialty Start Date End Date Ana Casiano MD [address] [place] [address] PCP - General Family Medicine 01/12/18 Dwayne Klein MD [address] [place] [address] Cardiology 04/02/23 Budget Controller Relationship Specialty Start Date End Date Ana Casiano MD [address] [place], [place] [address] PCP - General Family Medicine 01/12/18 Dwayne Klein MD [address] [id number] Cardiology 04/02/23 Budget Controller Relationship Specialty Start Date End Date Ana Casiano MD [address] [place] [address] PCP - General Family Medicine 01/12/18 Dwayne Klein MD [address] [id number] Cardiology 04/02/23 Team Status: Inactive Member Role Status Dates Dr. Ana Casiano MD Primary Care Provider Active Start: February 29, 2024 End: February 29, 2024 Dr. Ana Casiano MD Attending Provider Active St art: February 29, 2024 End: February 29, 2024 Dr. Ana Casiano MD Referring Provider Active St art: February 29, 2024 End: February 29, 2024 Team Status: Inactive Member Role Status Dates Dr. Ana Casiano MD Primary Care Provider Active Start: March 04, 2024 End: March 04, 2024 Dr. Clifford Delgado MD Attending Provider Active Start: March 04, 2024 End: March 04, 2024 Dr. Clifford Delgado MD Referring Provider Active Start: March 04, 2024 End: March 04, 2024 Team Status: Inactive Member Role Status Dates Dr. Ana Casiano MD Primary Care Provider Active Start: May 23, 2024 End: May 23, 2024 Dr. Ana Casiano MD Attending Provider Active St art: May 23, 2024 End: May 23, 2024 Dr. Ana Casiano MD Referring Provider Active St art: May 23, 2024 End: May 23, 2024 Dr. Clifford Delgado MD Other Provider Active Star t: May 23, 2024 End: May 23, 2024 Team Status: Inactive Member Role Status Dates Dr. Ana Casiano MD Primary Care Provider Active Start: June 20, 2024 End: June 20, 2024 Dr. Ana Casiano MD Attending Provider Active St art: June 20, 2024 End: June 20, 2024 Dr. Ana Casiano MD Referring Provider Active St art: June 20, 2024 End: June 20, 2024 Team Status: Active Member Role/Relationship Status Dates Dr. Ana Casiano MD Family Provider Active Dr. Ana Casiano MD Primary Care Provider Active Team Status: Inactive Member Role/Relationship Status Dates Dr. Ana Casiano MD Primary Care Provider Active Start: May 23, 2024 End: May 23, 2024 Dr. Ana Casiano MD Attending Provider Active St art: May 23, 2024 End: May 23, 2024 Dr. Ana Casiano MD Referring Provider Active St art: May 23, 2024 End: May 23, 2024 Dr. Clifford Delgado MD Other Provider Active Star t: May 23, 2024 End: May 23, 2024 Team Status: Inactive Member Role/Relationship Status Dates Dr. Ana Casiano MD Primary Care Provider Active Start: June 20, 2024 End: June 20, 2024 Dr. Ana Casiano MD Attending Provider Active St art: June 20, 2024 End: June 20, 2024 Dr. Ana Casiano MD Referring Provider Active St art: June 20, 2024 End: June 20, 2024 Team Status: Inactive Member Role/Relationship Status Dates Dr. Ana Casiano MD Primary Care Provider Active Start: August 19, 2024 End: August 19, 2024 Dr. Ana Casiano MD Referring Provider Active St art: August 19, 2024 End: August 19, 2024 Dr. Kaiden Gill DO Attending Provider Active Start: August 19, 2024 End: August 19, 2024 Source Comments (unrecognize d section and content) In the event this informatio n is protected by the Federal Confidentiality of Alcohol and Drug Abuse Patient Records regulations: The Federal rules restrict any use of the information to criminally investigate or prosecute any alcohol or drug abuse patient.[facility] CenterIn the event this information is protected by the Federal Confidentiality of Alcohol and Drug Abuse Patient Records regulations: The Federal rules restrict any use of the information to criminally investigate or prosecute any alcohol or drug abuse patient.[facility] CenterIn the event this information is protected by the Federal Confidentiality of Alcohol and Drug Abuse Patient Records regulations: The Federal rules restrict any use of the information to criminally investigate or prosecute any alcohol or drug abuse patient.[facility] CenterIn the event this information is protected by the Federal Confidentiality of Alcohol and Drug Abuse Patient Records regulations: The Federal rules restrict any use of the information to criminally investigate or prosecute any alcohol or drug abuse patient.[facility] CenterIn the event this information is protected by the Federal Confidentiality of Alcohol and Drug Abuse Patient Records regulations: The Federal rules restrict any use of the information to criminally investigate or prosecute any alcohol or drug abuse patient.[facility] CenterIn the event this information is protected by the Federal Confidentiality of Alcohol and Drug Abuse Patient Records regulations: The Federal rules restrict any use of the information to criminally investigate or prosecute any alcohol or drug abuse patient.[facility] CenterIn the event this information is protected by the Federal Confidentiality of Alcohol and Drug Abuse Patient Records regulations: The Federal rules restrict any use of the information to criminally investigate or prosecute any alcohol or drug abuse patient.[facility] CenterIn the event this information is protected by the Federal Confidentiality of Alcohol and Drug Abuse Patient Records regulations: The Federal rules restrict any use of the information to criminally investigate or prosecute any alcohol or drug abuse patient.[facility] CenterIn the event this information is protected by the Federal Confidentiality of Alcohol and Drug Abuse Patient Records regulations: The Federal rules restrict any use of the information to criminally investigate or prosecute any alcohol or drug abuse patient.[facility] CenterIn the event this information is protected by the Federal Confidentiality of Alcohol and Drug Abuse Patient Records regulations: The Federal rules restrict any use of the information to criminally investigate or prosecute any alcohol or drug abuse patient.[facility] CenterIn the event this information is protected by the Federal Confidentiality of Alcohol and Drug Abuse Patient Records regulations: The Federal rules restrict any use of the information to criminally investigate or prosecute any alcohol or drug abuse patient.[facility] CenterIn the event this information is protected by the Federal Confidentiality of Alcohol and Drug Abuse Patient Records regulations: The Federal rules restrict any use of the information to criminally investigate or prosecute any alcohol or drug abuse patient.[facility] CenterIn the event this information is protected by the Federal Confidentiality of Alcohol and Drug Abuse Patient Records regulations: The Federal rules restrict any use of the information to criminally investigate or prosecute any alcohol or drug abuse patient.[facility] CenterIn the event this information is protected by the Federal Confidentiality of Alcohol and Drug Abuse Patient Records regulations: The Federal rules restrict any use of the information to criminally investigate or prosecute any alcohol or drug abuse patient.[facility] CenterIn the event this information is protected by the Federal Confidentiality of Alcohol and Drug Abuse Patient Records regulations: The Federal rules restrict any use of the information to criminally investigate or prosecute any alcohol or drug abuse patient.[facility] CenterIn the event this information is protected by the Federal Confidentiality of Alcohol and Drug Abuse Patient Records regulations: The Federal rules restrict any use of the information to criminally investigate or prosecute any alcohol or drug abuse patient.[facility] CenterIn the event this information is protected by the Federal Confidentiality of Alcohol and Drug Abuse Patient Records regulations: The Federal rules restrict any use of the information to criminally investigate or prosecute any alcohol or drug abuse patient.[facility] CenterIn the event this information is protected by the Federal Confidentiality of Alcohol and Drug Abuse Patient Records regulations: The Federal rules restrict any use of the information to criminally investigate or prosecute any alcohol or drug abuse patient.[facility] CenterIn the event this information is protected by the Federal Confidentiality of Alcohol and Drug Abuse Patient Records regulations: The Federal rules restrict any use of the information to criminally investigate or prosecute any alcohol or drug abuse patient.[facility] CenterIn the event this information is protected by the Federal Confidentiality of Alcohol and Drug Abuse Patient Records regulations: The Federal rules restrict any use of the information to criminally investigate or prosecute any alcohol or drug abuse patient.[facility] CenterIn the event this information is protected by the Federal Confidentiality of Alcohol and Drug Abuse Patient Records regulations: The Federal rules restrict any use of the information to criminally investigate or prosecute any alcohol or drug abuse patient.[facility] CenterIn the event this information is protected by the Federal Confidentiality of Alcohol and Drug Abuse Patient Records regulations: The Federal rules restrict any use of the information to criminally investigate or prosecute any alcohol or drug abuse patient.[facility] CenterIn the event this information is protected by the Federal Confidentiality of Alcohol and Drug Abuse Patient Records regulations: The Federal rules restrict any use of the information to criminally investigate or prosecute any alcohol or drug abuse patient.[facility] CenterIn the event this information is protected by the Federal Confidentiality of Alcohol and Drug Abuse Patient Records regulations: The Federal rules restrict any use of the information to criminally investigate or prosecute any alcohol or drug abuse patient.[facility] CenterIn the event this information is protected by the Federal Confidentiality of Alcohol and Drug Abuse Patient Records regulations: The Federal rules restrict any use of the information to criminally investigate or prosecute any alcohol or drug abuse patient.[facility] CenterIn the event this information is protected by the Federal Confidentiality of Alcohol and Drug Abuse Patient Records regulations: The Federal rules restrict any use of the information to criminally investigate or prosecute any alcohol or drug abuse patient.[facility] CenterIn the event this information is protected by the Federal Confidentiality of Alcohol and Drug Abuse Patient Records regulations: The Federal rules restrict any use of the information to criminally investigate or prosecute any alcohol or drug abuse patient.[facility] CenterIn the event this information is protected by the Federal Confidentiality of Alcohol and Drug Abuse Patient Records regulations: The Federal rules restrict any use of the information to criminally investigate or prosecute any alcohol or drug abuse patient.[facility] CenterIn the event this information is protected by the Federal Confidentiality of Alcohol and Drug Abuse Patient Records regulations: The Federal rules restrict any use of the information to criminally investigate or prosecute any alcohol or drug abuse patient.[facility] CenterIn the event this information is protected by the Federal Confidentiality of Alcohol and Drug Abuse Patient Records regulations: The Federal rules restrict any use of the information to criminally investigate or prosecute any alcohol or drug abuse patient.[facility] CenterIn the event this information is protected by the Federal Confidentiality of Alcohol and Drug Abuse Patient Records regulations: The Federal rules restrict any use of the information to criminally investigate or prosecute any alcohol or drug abuse patient.[facility] CenterIn the event this information is protected by the Federal Confidentiality of Alcohol and Drug Abuse Patient Records regulations: The Federal rules restrict any use of the information to criminally investigate or prosecute any alcohol or drug abuse patient.[facility] CenterIn the event this information is protected by the Federal Confidentiality of Alcohol and Drug Abuse Patient Records regulations: The Federal rules restrict any use of the information to criminally investigate or prosecute any alcohol or drug abuse patient.[facility] CenterIn the event this information is protected by the Federal Confidentiality of Alcohol and Drug Abuse Patient Records regulations: The Federal rules restrict any use of the information to criminally investigate or prosecute any alcohol or drug abuse patient.[facility] CenterIn the event this information is protected by the Federal Confidentiality of Alcohol and Drug Abuse Patient Records regulations: The Federal rules restrict any use of the information to criminally investigate or prosecute any alcohol or drug abuse patient.[facility] CenterIn the event this information is protected by the Federal Confidentiality of Alcohol and Drug Abuse Patient Records regulations: The Federal rules restrict any use of the information to criminally investigate or prosecute any alcohol or drug abuse patient.[facility] CenterIn the event this information is protected by the Federal Confidentiality of Alcohol and Drug Abuse Patient Records regulations: The Federal rules restrict any use of the information to criminally investigate or prosecute any alcohol or drug abuse patient.[facility] (unrecognized sect ion and content) No Status Records FoundNo Status Records FoundNo Status Records Found INFORMATION SOURCE (unrecogn ized section and content) DATE CREATED AUTHOR 11/28/2023 [facility] DATE CREATED AUTHOR AUTHOR'S ORGANIZ ATION 05/05/2024 [facility] DATE CREATED AUTHOR AUTHOR'S ORGANIZ ATION 08/27/2024 [facility] FOR RECORDS PERTAINING TO PATIENTS WHO ARE [...] BE BASED ON THE PRIMARY CLINICAL RECORDS. [facility] [email or web address] [facility]. provides no warranty or guarantee of the accuracy or completeness of information in this document.
[2024-09-03 08:44] LABS: CPK Total, Creatine Kinase 96 U/L (24-195); Magnesium 2.3 mg/dL (1.5-2.2); Troponin T High Sensitivity 18 ng/L (<=22)
[2024-09-03 08:49] VITALS: BP 109/67; PULSE 41; RESP 19; O2SAT 97
[2024-09-03 09:00] VITALS: BP 111/69; PULSE 48; RESP 19; O2SAT 98
[2024-09-03 09:22] LABS: Anion Gap 13 (5-15); BUN 15 mg/dL (4-19); BUN/Creat Ratio 13.8 RATIO (10-20); Calcium,Total 9.7 mg/dL (7.6-11.0); Carbon Dioxide 24.2 mmol/L (21.0-32.0); Chloride 102 mmol/L (98-108); Estimated Creatinine Clearance 67.25 ml/min (50-250); Glucose 120 mg/dL (70-99); Potassium 4.1 mmol/L (3.3-5.1)
[2024-09-03 10:00] VITALS: BP 109/65; PULSE 48; RESP 18; O2SAT 99
--- NOTE | 2024-09-03 10:00 | CM.ED ---
Date of referral: 09/03/24 Reason for referral: Advanced Care Directives (ACD's) not on file Referred by: Social Work Identification Patient provided consent to social work visit. [employer] requested a copy of the ACD's which patient agreed to bring in. Celina Kramer, JACQUARD FIXER, [employer]IPYARD [employer]ER
[2024-09-03 10:50] LABS: Troponin T High Sens 2 HR 16 ng/L (<=22)
[2024-09-03 11:00] VITALS: BP 109/68; PULSE 46; RESP 18; O2SAT 100
[2024-09-03 11:19] VITALS: BP 109/68; PULSE 46; RESP 18; TEMP 37; O2SAT 100
== END 2024-09-03 11:32 | disposition home or self-care (01) ==
PROVIDERS: Emergency Provider Emergency Medicine; PCP Family Medicine; Visit Provider Emergency Medicine
DX: R07.9 Chest pain, unspecified (principal); I10 Essential (primary) hypertension; E78.5 Hyperlipidemia, unspecified; R00.1 Bradycardia, unspecified; Z85.53 Personal history of malignant neoplasm of renal pelvis; Z79.899 Other long term (current) drug therapy; Z90.5 Acquired absence of kidney
CPT/HCPCS: 71046; 80048; 82550; 83735; 84484; 85025; 93005; 96360; 99284; A4216

== ENCOUNTER → 2024-09-05 | Outpatient (CLI) | payer MEDICARE, OTHER, SELFPAY ==
[2024-09-05 19:49] LABS: Carbamazepine (Tegretol) < 2.0 ug/mL (4.0-12.0)
[2024-09-05 20:08] LABS: CRP < 3.00 mg/L (0.0-3.0)
[2024-09-07 12:09] LABS: ANTINUCLEAR ANTIBODIES DIRECT Negative (Negative)
[2024-09-07 14:08] LABS: Lyme Scn Total Ab w/Rflx Negative (Negative)
== END | disposition home or self-care (01) ==
LOC: MTLAB 16:05
PROVIDERS: PCP Family Medicine; Referring Provider Family Medicine; Visit Provider Family Medicine
DX: R53.83 Other fatigue (principal)
CPT/HCPCS: 36415; 80156; 84443; 85652; 86038; 86140; 86618

== ENCOUNTER → 2024-10-19 | Outpatient (CLI) | payer MEDICARE, OTHER, SELFPAY ==
[2024-10-19 15:54] LABS: AST(SGOT) 25 U/L (<=37); Alanine Aminotransfer ALT/SGPT 20 U/L (<=46); Albumin, Serum 4.1 g/dL (3.4-4.8); Alkaline Phosphatase 56 U/L (40-129); Anion Gap 12 (5-15); BUN 15 mg/dL (4-19); BUN/Creat Ratio 14.0 RATIO (10-20); Bilirubin, Direct 0.25 mg/dL (0.00-0.30); Calcium,Total 9.4 mg/dL (7.6-11.0); Carbon Dioxide 23.9 mmol/L (21.0-32.0); Chloride 103 mmol/L (98-108); Cholesterol 257 mg/dL (<=200); Globulin 2.2 g/dL (2.2-4.2); Glucose 90 mg/dL (70-99); Low Density Lipoprotein Calc. 176 mg/dL; Potassium 3.9 mmol/L (3.3-5.1); Triglycerides 182 mg/dL; Very Low Density Lipoprotein 36 mg/dL (5-40); cholesterol:hdl ratio screen 5.74
[2024-10-20 00:20] LABS: Hematocrit 36.8 % (40-54); Hemoglobin 12.6 g/dL (13.0-16.5); Immature Granulocytes Count 0.020 X10^3/uL (0.0-0.0); Mean Corp Hgb Conc 34.2 g/dL (32-36); Mean Corpuscular Volume 95.6 fL (80-94); Mean Platelet Vol. 10.3 fl (6.2-12.0); NRBC Flagged by Analyzer 0 % (0-5); Platelet Count 200 K/mm3 (150-450); RBC Distribution Width CV 13.6 % (11.6-14.6); RBC Distribution Width SD 47.8 fl (35.1-43.9); Red Blood Count 3.85 M/mm3 (4.6-6.2); White Blood Count 5.3 K/mm3 (4.4-11.0)
== END | disposition home or self-care (01) ==
LOC: MTLAB 11:38
PROVIDERS: Nurse Practitioner Gerontology; PCP Family Medicine; Referring Provider Internal Medicine Cardiovascular Disease; Visit Provider Internal Medicine Cardiovascular Disease
DX: E78.00 Pure hypercholesterolemia, unspecified (principal)
CPT/HCPCS: 36415; 80048; 80061; 80076; 85025

== ENCOUNTER 2024-10-31 07:24 | Day surgery (SDC) | payer MEDICARE, OTHER, SELFPAY ==
[2024-10-28 10:12] VITALS: BMI 30.9
--- OUTSIDE RECORDS SUMMARY | 2024-10-31 07:30 | XMS RPT_ITS | CCD ---
Author Organization [facility] Care Team Providers Care Door Slinger Name Role Phone Flakito Olson MD Unavailable [phone] Ana Casiano Primary Care Provider Dr. Ana Casiano Referring Provider [phone] Dr. Dwayne Klein Attending Provider Dr. [...] Dr. Ana Casiano Primary Care Provider [phone] Ana Casiano Referring Provider DEEP Danielson Attending Provider Dr. Ana Casiano Primary Care Provider Dr. Ana Casiano Referring Provider 1([facility])[phone] DEEP Danielson Attending Provider Abdon STRICKLAND, KAVONC Yamilet Attending Provider Dr. Dwayne Klein Attending Provider 1([facility])- 00 Dr. Ana Casiano Primary Care Provider 1([facility])[phone] Dr. Ana Casiano Referring Provider 1([facility])[phone] Abdon STRICKLAND, MARCO A-C Yamilet Attending Provider Dr. Dwayne Klein Attending Provider 1([facility]) 00 Dr. Ana Casiano Primary Care Provider 1([facility])[phone] Dr. Ana Casiano Referring Provider 1([facility])[phone] Abdon STRICKLAND, MARCO A-C Yamilet Attending Provider Dr. Ana Casiano Primary Care Provider 1([facility])[phone] Dr. Ana Casiano Referring Provider 1([facility])[phone] Kaiden Gill Attending Provider 1([facility]) 10 DEEP Ramirez Attending Provider 1([facility])[phone] DEEP Danielson Attending Provider 1([facility])[phone] Dr. Ana Casiano Primary Care Provider 1([facility])[phone] Dr. Ana Casiano Referring Provider 1([facility])[phone] Kaiden Gill Attending Provider 1([facility]) [phone] DEEP Ramirez Attending Provider 1([facility])[phone] DEEP Danielson Attending Provider 1([facility])[phone] Abdon STRICKLAND, COMMUNICATION INSTRUCTOR-C Yamilet Attending Provider Dr. Kaiden Gill Other Provider 1([facility])-[phone] Joelle COMMUNICATION INSTRUCTOR, COMMUNICATION INSTRUCTOR-C Richie Malik Attending Provider 1([facility])[phone] Dr. Dwayne Klein Attending Provider 1([facility])-[phone] Abdon COMMUNICATION INSTRUCTOR, COMMUNICATION INSTRUCTOR-C Yamilet Referring Provider Dr. Ana Casiano Primary Care Provider Dr. Ana Casiano Referring Provider 1([facility])[phone] Jairo, Dr. Richey Attending Provider Dr. Cristiano Newman Attending Provider 1([facility])[phone] Oh ACOSTA, Ana A Primary Care Provider 1([facility])[phone] Dwayne Klein MD Unavailable Dr. Ana Casiano Primary Care Provider [phone] Dr. Ana Casiano Referring Provider [phone] Abdon COMMUNICATION INSTRUCTOR, COMMUNICATION INSTRUCTOR-C Yamilet Attending Provider Dr. Ana Casiano Primary Care Provider Dr. Dwayne Klein Attending Provider 1([facility])-[phone] Abdon COMMUNICATION INSTRUCTOR, COMMUNICATION INSTRUCTOR-C Yamilet Referring Provider Joelle COMMUNICATION INSTRUCTOR, COMMUNICATION INSTRUCTOR-C Richie Malik Attending Provider 1([facility])[phone] Dr. Ana Casiano Referring Provider 1([facility])[phone] Cristiano Newman Attending Provider 1([facility])[phone] Abdon COMMUNICATION INSTRUCTOR, COMMUNICATION INSTRUCTOR-C Yamilet Attending Provider Dr. Ana Casiano Primary Care Provider 1([facility])[phone] Oh ACOSTA, Ana A Primary Care Provider [phone] CASIANOANA A Primary Care Unavailable NATE, RUTH [...] ANA A Primary Care Unavailable ALPA PEARSON (INDUSTRIAL ILLUMINATING ENGINEER) Attending Unavailab le CASIANO, ANA A Referring [...] Unavailable NATE, RUTH Attending Unavailable ALPA PEARSON ([facility]) Referring Unavailab le CASIANO, ANA A Primary Care Unavailable Oh ACOSTA, Dr. Mcintosh Primary Care Provider Oh ACOSTA, Dr. Mcintosh Attending Provider Oh ACOSTA, Dr. Mcintosh Referring Provider Danny ACOSTA, Dr. Horton Attending Provider Danny ACOSTA, Dr. Horton Referring Provider Danny ACOSTA, Dr. Horton Other Provider Oh ACOSTA, Dr. Mcintosh Primary Care Provider Dr. Ana Casiano MD Attending Provider [phone] Ana Casiano MD Referring Provider [phone] Kaiden Gill DO Attending Provider Dr. Latonia Petersen DO Emergency Provider [phone] Latonia Petersen DO Attending Provider Oh ACOSTA, Dr. Mcintosh Primary Care Provider Oh ACOSTA, Dr. Mcintosh Attending Provider [phone] Oh ACOSTA, Dr. Mcintosh Referring Provider [phone] Ernie ACOSTA, Dr. Rice Attending Provider Ata Ramirez Attending Provider CASIANO, ANA A Primary Care Unavailable RODERICK KOVACS Attending Unavailable CASIANO, ANA A Primary Care Unavailable CONNIE AMBROSE Attending Unavailable CONNIE AMBROSE Referring Unavailable CASIANO, ANA A Primary Care Unavailable DOMINIC GONZALEZ Attending Unavailable CASIANO, ANA A Primary Care Unavailable CASIANO, ANA A Referring Unavailable CONNIE AMBROSE Attending Unavailable Casiano, Ana Primary Care Unavailable Dwayne Klein Referring Unavailable Ernie, Dwayne Attending Unavailable Casiano, Ana Primary Care Unavailable Casiano, Ana Referring Unavailable Ata Ramirez Attending Unavailable Friend, Kaiden Attending Unavailable Casiano, Ana Primary Care Unavailable Casiano, Ana Referring Unavailable Latonia Petersen Attending Unavailable Casiano, Ana Primary Care Unavailable Casiano, Ana Referring Unavailable Casiano, Ana Primary Care Unavailable Ernie, [place] Attending Unavailable Casiano, Ana Referring Unavailable Ata Ramirez Attending Unavailable Casiano, Ana Primary Care Unavailable Ernie, Dwayne Attending Unavailable Casiano, Ana Primary Care Unavailable Casiano, Ana Attending Unavailable Casiano, Ana Referring Unavailable Casiano, Ana Primary Care Unavailable Casiano, Ana Attending Unavailable Casiano, Ana Primary Care Unavailable Casiano, Ana Referring Unavailable Casiano, Ana Primary Care Unavailable Rell Valentine Attending Unavailable Casiano, Ana Attending Unavailable Casiano, Ana Primary Care Unavailable Casiano, Ana Referring Unavailable Casiano, Ana Attending Unavailable Casiano, Ana Primary Care Unavailable Casiano, Ana Referring Unavailable Casiano, Ana Attending Unavailable Casiano, Ana Primary Care Unavailable Casiano, Ana Referring Unavailable Casiano, Ana Attending Unavailable Casiano, Ana Primary Care Unavailable Casiano, Ana Referring Unavailable Friend, Kaiden Attending Unavailable Casiano, Ana Primary Care Unavailable Casiano, Ana Referring Unavailable Ernie, [place] Referring Unavailable Ernie, Dwayne Attending Unavailable Casiano, Ana Primary Care Unavailable Casiano, Ana Primary Care Unavailable Miedel, Veneta Referring Unavailable Mirichel Veneta Attending Unavailable Casiano, Ana Attending Unavailable Casiano, Ana Referring Unavailable Miedel, Veneta Consulting Unavailable Casiano, Ana Primary Care Unavailable Allergies Allergy Classification Reported Allergen(s) Allergy Type Date of Onset Reaction(s) Facility (2 sources) egg; Translations: [EGGS] food allergy 07-12-19 [facility] Work Phone: (2 sources) [employer]; Translations: [ANIMALS] allergy to substance 04-20-19 [facility] Work Phone: (2 sources) Penicillin G Drug Allergy 07-12-19 [facility] Work Phone: (2 sources) Sulfacetamide Drug Allergy 07-12-19 [facility] Work Phone: (2 sources) PLANT POLLENS; Translations: [PLANT POLLENS] allergy to substance 07-12-19 hay fever [facility] Work Phone: (2 sources) DAIRY; Translations: [DAIRY] food allergy 07-12-19 [facility] Work Phone: (17 sources) Corticosteroids Propensity to adverse reactions 02-27-19 22 Other, hypertensive [facility] (20 sources) Penicillins; Translations: [PENICILLINS] Allergy to substance 10-02-19 14 Swelling [facility] (20 sources) Egg Derived; Translations: [EGG DERIVED] Allergy to substance 07-09-19 19 Other: See Comments [facility] Comment on above: When eaten caused to ngue swelling (17 sources) Milk Containing Products Propensity to adverse reactions 02-27-19 22 Diarrhea [facility] (20 sources) Glucocorticoid Receptor Agonists; Translations: [CORTICOSTEROIDS (GLUCOCORTICOIDS)] Propensity to adverse reactions 07-09-19 19 Hypertension [facility] (20 sources) Milk Containing Products (Dairy); Translations: [MILK CONTAINING PRODUCTS (DAIRY)] Propensity to adverse reactions 07-09-19 19 Diarrhea [facility] (20 sources) febuxostat; Translations: [FEBUXOSTAT] Drug Allergy 11-20-19 23 Rash [facility] (20 sources) Omeprazole; Translations: [OMEPRAZOLE] Drug Allergy 01-15-20 23 Itching [facility] (20 sources) pantoprazole; Translations: [PANTOPRAZOLE] Drug Allergy 01-15-20 23 Itching [facility] (20 sources) Betamethasone; Translations: [BETAMETHASONE DIPROPIONATE] Drug Allergy 05-10-19 16 Swelling [facility] (20 sources) Glucocorticoid preparation Drug Allergy 07-09-19 19 Other: See Comments, Shortness of Breath [facility] (20 sources) levoFLOXacin; Translations: [LEVOFLOXACIN] Drug Allergy 03-13-19 24 Rash [facility] (20 sources) Milk Drug Allergy 07-09-19 19 Diarrhea [facility] (20 sources) Fluconazole; Translations: [FLUCONAZOLE] Drug Allergy 05-21-19 24 Intolerance, Shortness of Breath [facility] (1 source) Corticosteroids Drug allergy (disorder) 10-07-19 [facility] (1 source) febuxostat Drug Allergy 10-07-19 [facility] (1 source) levoFLOXacin Drug Allergy 10-07-19 [facility] (1 source) Omeprazole Drug Allergy 10-07-19 [facility] (1 source) pantoprazole Drug Allergy 10-07-19 [facility] (1 source) Milk Containing Products (Dairy) Drug allergy (disorder) 10-07-19 [facility] Rep[facility] Medications Current Medications Medication Drug Class(es) Dates Sig (Normalized) Sig (Original) acetaminophen 325 mg / oxyCODONE hydrochloride 5 mg oral tablet (20 sources) Opioid Agonist Start: 06-12-2021 take 1 tablet by mouth every four hours Oxycodone-Acetami nophen Active 1 TABLET PO Q4H 14 June 12, 2021 Start: 06-09-2020 End: 02-20-2021 Oxycodone-Acetaminophen 1 TA BLET tablet Discontinued 1 {tbl} PO EVERY 6 HOURS NEEDED as needed for Pain 12 3 June 09, 2020 February 20, 2021 4:04pm Closed fracture of head of right radius Start: 06-09-2020 End: 02-20-2021 take 1 tablet by mouth every six hours as needed Oxycodone-Acetaminophen Discontinued 1 TABLET PO EVERY 6 HOURS NEEDED 12 3 June 09, 2020 February 20, 2021 4:04pm aspirin 81 mg delayed release oral tablet (20 sources) Platelet Aggregation Inhibitor, Nonsteroidal Anti-inflammatory Drug Start: 09-29-2024 take 1 tablet by mouth once daily Aspirin (Adult Aspirin Regimen) 81 mg tablet,delayed release (DR/EC) Active 81 mg PO DAILY September 29, 2024 12:00am Start: 03-15-2021 End: 03-15-2021 take 1 tablet by mouth once daily Aspirin (Adult Aspirin Regimen) 81 mg tablet,delayed release (DR/EC) Discontinued 81 mg PO DAILY March 15, 2021 1:00am March 15, 2021 8:19am colchicine 0.6 mg oral capsule (7 sources) Start: 02-20-2021 take 0.6 mg by mouth once daily Colchicine Active 0.6 MG PO DAILY February 20, 2021 1:00am cranberry fruit (CRANBERRY) 450 mg tab (5 sources) Start: 03-12-2024 cranberry frui t (CRANBERRY) 450 mg tab once daily. 03/12/2024 Active Cranberry Fruit (3 sources) Non-Standardized Food Allergenic Extract, Non-Standardized Plant Allergenic Extract Start: 09-29-2024 take 1 tablet by mouth twice daily at mealtime Cranberry Fruit 400 mg tablet Active 400 mg PO TWICE A DAY September 29, 2024 12:00am administer with meals dilTIAZem hydrochloride 120 mg oral tablet (20 sources) Calcium Channel Tia Start: 08-24-2024 take 1 tablet by mouth every twelve hours dilTIAZem (CARDIZEM) 120 mg tablet Take 1 tablet by mouth every 12 hours. 08/24/2024 Active Start: 08-14-2023 take 1 capsule by mo [facility] twice daily Diltiazem Hcl (Dilt-Xr) 120 mg capsule,ext.rel 24h degradable Active 120 mg PO TWICE A DAY August 14, 2023 11:29am Start: 05-05-2023 End: 10-17-2024 take 1 tablet by mouth every twelve hours dilTIAZem (CARDIZEM) 60 mg tablet Take 1 tablet by mouth every 12 hours. 05/05/2023 10/17/2024 Discontinued (Changing Therapy/Dosage Form) Start: 12-19-2022 End: 08-14-2023 take 1 capsule [...] 2021 12:00am indapamide 1.25 mg oral tablet (11 sources) Thiazide-like Diuretic Start: 03-21-2024 take 1 tablet by mouth once daily in the morning Indapamide 1.25 mg tablet Active 1.25 mg PO EVERY MORNING August 19, 2024 12:00am lisinopril 20 mg oral tablet (20 sources) [...] by sammie th every 12 hours. Magnesium (5 sources) Magnesium 200 mg tab Take by [...] up to 4 days. polyethylene glycol 3350 [id number] mg / potassium chloride 2970 mg / sodium bicarbonate 6740 mg / sodium chloride 5860 mg / sodium sulfate 67663 mg powder for oral solution (1 source) Osmotic Laxative Start: 03-25-19 End: 03-25-19 peg 3350-Electrolytes (GOLYTELY) 236-22.74-6.74 -5.86 gram suspension Indications: Positive colorectal cancer screening using Cologuard test Take 4,000 mL by mouth one time only for 1 dose. Refer to printed prep instructions from your provider. 4000 mL 03/25/2024 03/25/2024 Active tadalafil 5 mg oral tablet (2 sources) Phosphodiesterase 5 Inhibitor Start: 10-18-19 End: 10-18-19 take 1 tablet by mouth once daily Tadalafil (CIALIS) 5 mg tablet Indications: Erectile dysfunction of organic origin , BPH with urinary obstruction Take 1 tablet by mouth once daily. 30 tablet 11 10/17/2024 10/17/2025 Active Start: 10-17-2024 End: 10-17-2024 take 1 tablet by mouth once daily as needed Tadalafil (CIALIS) 20 mg tablet Indications: Erectile dysfunction of organic origin Take 1 tablet by mouth once daily as needed. Take 1-2 hours before sexual activity. 6 tablet 11 10/17/2024 10/17/2024 Discontinued tamsulosin hydrochloride 0.4 mg oral capsule (2 sources) alpha-Adrenergic Tia Start: 06-14-2021 take 1 capsule by mouth at bedtime Tamsulosin (Flomax) 0.4 mg capsule Active 0.4 MG PO AT BEDTIME June 14, 2021 4:15pm 12 hr timolol 5 mg/ml ophthalmic solution (1 source) beta-Adrenergic Tai Start: 07-06-2024 timolol maleate (TIMOPTIC) 0.5 % ophthalmic solution Use 1 drop in both eyes two times a day. 07/06/2024 Active traMADol hydrochloride 50 mg oral tablet (3 sources) Opioid Agonist Start: 05-13-2023 End: 05-15-2023 take 1 tablet by mouth every eight [...] D3) 1,000-100 unit-mcg tablet (20 sources) Start: 02-20-2021 take 1 tablet by mouth once daily [...] injection (7 sources) Bisphosphonate Start: 02-27-2021 Zoledronic Tyil-Hxipkfsy-Zjtqj (Reclast) 5 mg/100 mL piggyback Active 5 [...] tablet by mouth once a day allopurinol [id number] Liset Lovett RN Start: 12-13-2017 End: 02-24-2023 [...] 2018 4:28pm February 20, 2021 4:04pm supplement atorvastatin 40 mg oral tablet (20 sources) HMG-CoA Reductase Inhibitor Start: 05-21-2021 End: 06-07-2021 take 1 tablet by mouth once daily in the evening Atorvastatin 40 mg tablet Discontinued 40 mg PO EVERY EVENING 30 May 21, 2021 12:00am June 07, 2021 9:11am azelastine hydrochloride 0.137 mg/actuat metered dose nasal spray (11 sources) Histamine-1 Receptor Antagonist Start: 02-24-2023 End: [...] mouth once a day cholecalciferol (vitamin d3) [id number] Liset Lovett RN Start: 03-22-2018 End: 03-22-2018 take 1 tablet by mouth once daily Cholecalciferol (Vitamin D3) (Vitamin D3) 1,000 UNIT tablet Discontinued 1000 U PO DAILY 30 0 March 22, 2018 1:00am March 22, 2018 4:28pm ciprofloxacin 500 mg oral tablet (7 sources) Quinolone Antimicrobial Start: 07-24-2023 End: 08-03-2023 take 1 tablet by mouth twice daily Ciprofloxacin Hcl (Cipro) 500 mg tablet Discontinued 500 mg PO TWICE A DAY 20 10 0 July 24, 2023 12:00am August 02, 2023 12:00am August 03, 2023 12:07am diphenhydrAMINE (1 source) Histamine-1 Receptor Antagonist Start: 04-01-2024 End: 04-01-2024 12.5-50 mg, INTRAVENOUS, DIRECTED, Starting on Thu04/01/24 at 1230, Until Thu04/01/24 at 1629, DOSING DIRECTED BY PHYSICIAN FOR PROCEDURAL SEDATION ONLY, Intraprocedure docusate sodium 50 mg / sennosides, senior living 8.6 mg oral tablet (20 sources) Start: [...] 4:04pm doxycycline monohydrate 100 mg oral capsule (12 sources) Tetracycline-class Drug Start: 02-12-2023 End: 02-24-2023 [...] on above: Take 1 capsule by mo [facility] one time a week. famotidine 20 mg [...] mouth. Active fluconazole 100 mg oral tablet (9 sources) Azole Antifungal Start: 08-14-2023 End: 01-14-2024 [...] 120 mL PO THREE TIMES A DAY 30 0 March 22, 2018 1:00am March [...] Food Supplemt, Lactose-Reduced 0.08 gram-1.5 kcal/mL liquid (7 sources) Start: 10-18-2020 End: 02-20-2021 take 1 mL by mouth three times daily as needed Food Supplemt, Lactose-Reduced 0.08 gram-1.5 kcal/mL liquid Discontinued 120 mL PO THREE TIMES A DAY as needed for supplement October 18, 2020 8:22am February 20, 2021 4:04pm Food Supplemt, Lactose-Reduced 120 ML liquid (7 sources) Start: 03-22-2018 End: 10-18-2020 take 1 [...] mouth once a day (25 mg) hydrochlorothiazide [id number] Liset Lovett RN Start: 08-15-2013 End: 04-02-2018 [...] milk levocetirizine dihydrochloride 5 mg oral tablet (17 sources) Histamine-1 Receptor Antagonist Start: End: take [...] symptoms. magnesium oxide 400 mg oral tablet (20 sources) Start: End: [...] PO DAILY 02 09March 13, 2021 1:00am March 13, 2021 4:36pm 1 hour prior to Coronary Calcium CTA 5 ml midazolam 1 mg/ml injection (1 source) Benzodiazepine Start: 04-01-2024 End: 04-01-2024 1-5 mg, INTRAVENOUS, DIRECTED, Starting on Thu04/01/24 at 1230, Until Thu04/01/24 at 1629, DOSING DIRECTED BY PHYSICIAN FOR PROCEDURAL SEDATION ONLY, Intraprocedure nystatin [id number] unt/ml oral suspension (17 sources) Polyene Antifungal [...] 11:33am REFLEX oseltamivir 75 mg oral capsule (12 sources) Neuraminidase Inhibitor Start: 02-12-2023 End: 02-24-2023 [...] pantoprazole 40 mg delayed release oral tablet (15 sources) Proton Pump Inhibitor Start: 01-07-2023 End: [...] a week ubidecarenone 200 mg oral capsule (17 sources) Start: 06-26-2022 End: 12-05-2022 take 10 [...] by mouth once a day vitamin k2 [id number] Liset Lovett RN Problems Active Problems Problem Classification Problem Date Documented Da te Episodic/Chronic Cardiac dysrhythmias (3 sources) Supraventricular tachycardia; Translations: [SVT (supraventricular tachycardia)] Onset: 4 03-30-2023 Chronic Coronary atherosclerosis and other heart disease (20 sources) Calcification of coronary artery; Translations: [Atherosclerotic heart disease of [place] coronary artery without angina pectoris] 03-15-2021 Chronic [...] Onset: 4 05-05-2023 Chronic Headache; including migraine (7 sources) Headache; Translations: [Headache] 11-07-2023 Episodic Headache; including migraine (1 source) Headache; including migraine; Translations: [Headache, unspecified] Onset: 5 Hyperplasia of prostate (3 sources) Benign prostatic hypertrophy with outflow obstruction; Translations: [Benign prostatic hyperplasia with lower urinary tract symptoms] Onset: 5 10-17-2024 Chronic Immunizations and screening for infectious disease (1 source) Patient encounter status; Translations: [Encounter for immunization] 04-08-2024 Episodic Inflammatory conditions of male genital organs (13 sources) Balanitis; Translations: [Balanitis] 02-08-2023 Chronic Influenza (12 sources) Influenza due to Influenza A virus; Translations: [Influenza due to other identified influenza virus with other respiratory manifestations] 02-12-2023 Episodic Joint disorders and dislocations; trauma-related (2 sources) Derangement of medial meniscus; Translations: [Other meniscus derangements, other medial meniscus, right knee] Onset: 1 08-07-2020 Chronic Malaise and fatigue (20 sources) Fatigue; Translations: [Other fatigue] Onset: 5 Episodic Nonspecific chest pain (20 sources) Chest pain; Translations: [Chest pain, unspecified] Onset: 5 Episodic Osteoarthritis (2 sources) Osteoarthritis of right [...] [Benign neoplasm of rectum] 04-06-2024 Episodic Other diseases of kidney and ureters (1 source) Renal mass; Translations: [Other specified disorders of kidney and ureter] Onset: 2 05-10-2021 Chronic Other diseases of kidney and ureters (1 source) Other obstructive and reflux uropathy; Translations: [BPH with urinary obstruction] Onset: 5 Episodic Other gastrointestinal disorders (20 sources) Dysphagia; Translations: [Dysphagia, unspecified] 10-17-2022 Episodic Other gastrointestinal disorders (6 sources) Dysphagia, unspecified; Translations: [Dysphagia, unspecified] 10-17-2022 Episodic Other gastrointestinal disorders (1 source) Personal history of other diseases of the digestive system; Translations: [Status post repair of paraesophageal diaphragmatic hernia] Onset: 4 Episodic Other hematologic conditions (20 sources) Protein level - finding; Translations: [Abnormality of plasma protein, unspecified] 02-20-2021 Episodic Comment on above: M-spike on 11/09/2020 is undetectable. L/K ratio is normal. Has no evidence of Plasma cell dyscrasia.CT of T/L spine on 11/09/2020 shows DJD, no lytic lesions. Other injuries and conditions due to external causes (1 source) Unspecified injury of unspecified ankle, initial encounter; Translations: [Unspecified injury of unspecified ankle, initial encounter] Onset: 5 Episodic Other injuries and conditions due to external causes (1 source) Unspecified injury of thorax, initial encounter; Translations: [Unspecified injury of thorax, initial encounter] Onset: 5 Episodic Other injuries and conditions due to external causes (1 source) Unspecified injury of unspecified foot, initial encounter; Translations: [Unspecified injury of unspecified foot, initial encounter] Onset: 5 Episodic Other lower respiratory disease (12 sources) Interstitial pneumonia; Translations: [Interstitial pulmonary disease, unspecified] 02-12-2023 Chronic Other lower respiratory disease (20 sources) Dyspnea on exertion; Translations: [Other forms of dyspnea] 02-13-2022 Episodic Other lower respiratory disease (7 sources) Other forms of dyspnea; Translations: [Other respiratory abnormalities] Episodic Other lower respiratory disease (20 sources) Dyspnea; Translations: [Shortness of breath] 03-13-2023 Episodic Other lower respiratory disease (11 sources) Multiple nodules of lung; Translations: [Other nonspecific abnormal finding of lung field] 02-24-2023 Episodic Other lower respiratory disease (4 sources) Other nonspecific abnormal finding of lung field; Translations: [Other nonspecific abnormal finding of lung field] 02-24-2023 Episodic Other lower respiratory disease (7 sources) Pleuritic pain; Translations: [Pleurodynia] 01-22-2024 Episodic Other male genital disorders (2 sources) Secondary erectile dysfunction; Translations: [Male erectile dysfunction, unspecified] 10-17-2024 Chronic Other male genital disorders (1 source) Male erectile dysfunction, unspecified; Translations: [Erectile dysfunction of organic origin] Onset: Chronic Other non-traumatic joint disorders (14 sources) Hip pain; Translations: [Pain in unspecified hip] 01-14-2023 Episodic Other nutritional; endocrine; and metabolic disorders (20 sources) Obesity; Translations: [Obesity, unspecified] 02-20-2021 Chronic Other upper respiratory infections (20 sources) Acute upper respiratory infection; Translations: [Acute upper respiratory infection, unspecified] 11-19-2022 Episodic Pneumonia (except that caused by tuberculosis or sexually transmitted disease) (11 sources) Pneumonia; Translations: [Pneumonia, unspecified organism] 02-21-2023 Episodic Residual codes; unclassified (20 sources) Obstructive sleep apnea syndrome; Translations: [Obstructive sleep apnea (adult) (pediatric)] Onset: 4 07-08-2018 Chronic Residual codes; unclassified (6 sources) Obstructive sleep apnea (adult) (pediatric); Translations: [Obstructive sleep apnea (adult)(pediatric)] Onset: 4 02-24-2023 Chronic Residual codes; unclassified (13 sources) History of drug therapy; Translations: [Personal [...] diaphragmatic hernia] Onset: Episodic Sprains and strains (20 sources) Strain of muscle of hip; Translations: [...] of monoclonal antibody treatment Bebtelovimab and not (bamlanivimab/estesevimab or casirivimab/imdevimab... Under Assessment and Plan, it should read: Patient is unable to take Paxlovid and not Paxil over due... Clarification: There are medications which are FDA [...] neoplasm of kidney] Onset: 05-05-2023 05-05-2023 Episodic Cardiac dysrhythmias (20 sources) Tachyarrhythmia ; Translations: [Tachycardia, unspecified] Onset: 05-05-2023 Episodic Comment on above: was started on dilti azem 01/2021 ? SVT Deficiency and other anemia (20 sources) Anemia; Translations: [Other specified anemias] Onset: 05-05-2023 05-05-2023 Episodic Deficiency and other anemia (1 source) Other specified anemias; Translations: [Anemia due to other cause, not classified] Onset: 05-05-2023 Episodic Fracture of lower limb (2 sources) Fracture of patella; Translations: [Unspecified fracture of unspecified patella, initial encounter for closed fracture] Onset: 08-07-2020 08-07-2020 Episodic Mycoses (20 sources) Candidiasis of mouth and esophagus; Translations: [Candidal esophagitis] Onset: 09-24-2023 08-28-2023 Episodic Other and unspecified benign neoplasm (1 source) Benign neoplasm of rectum; Translations: [Adenomatous rectal polyp] Onset: 04-08-2024 Episodic Other bone disease and musculoskeletal deformities (1 source) Disorder of bone, unspecified; Translations: [Disorder of bone, unspecified] Onset: 12-15-2023 Episodic Other connective tissue disease (1 source) Myalgia, other site; Translations: [Myalgia, other site] Onset: 02-26-2024 Episodic Other gastrointestinal disorders (8 sources) Diarrhea; Translations: [Diarrhea, unspecified] Onset: 04-01-2024 03-25-2024 Episodic Other gastrointestinal disorders (6 sources) Stool DNA-based colorectal cancer screening positive; Translations: [Other fecal abnormalities] Onset: 04-01-2024 03-25-2024 Episodic Other gastrointestinal disorders (1 source) Other fecal abnormalities; Translations: [Positive colorectal cancer screening using Cologuard test] Onset: 04-01-2024 Episodic Other gastrointestinal disorders (1 source) Diarrhea, unspecified; Translations: [Diarrhea, unspecified type] Onset: 04-01-2024 Episodic Other lower respiratory disease (4 sources) Shortness of breath; Translations: [Shortness of breath] Onset: 03-06-2023 03-23-2023 Episodic Other lower respiratory disease (1 source) Pleurodynia; Translations: [Pleurodynia] Onset: 02-17-2024 Episodic Other non-traumatic joint disorders (4 sources) Hemarthrosis of right knee; Translations: [Hemarthrosis, right knee] Onset: 07-30-2020 08-07-2020 Episodic Other screening for suspected conditions (not mental disorders or infectious disease) (20 sources) Calcification of coronary artery; Translations: [Abnormal findings on diagnostic imaging of heart and coronary circulation] Onset: 04-01-2024 03-15-2021 Episodic Spondylosis; intervertebral disc disorders; other back problems (20 sources) Spinal stenosis; Translations: [Spinal stenosis, site unspecified] Onset: 04-22-2021 04-22-2021 Episodic Unclassified (2 sources) Problem Results Test Name Value Interpretation Reference Range Facility CBC W/Diff, Automatedon 10-10 Absolute Lymph 1.16 X10 3/uL Normal 0.83-4.51 [facility] Comment on above: Performed By: #### L 500.4100, L100.0100, L500.2500, L500.3400 #### [facility] [address] [place], [address] Absolute Neut 3.4 X10 3/uL Normal 2.0-7.7 [facility] Comment on above: Performed By: #### L 500.4100, L100.0100, L500.2500, L500.3400 #### [facility] [address] [place], [address] Basophils/100 WBC (Bld) 0.6 % Normal 0-1 [facility] Comment on above: Performed By: #### L 500.4100, L100.0100, L500.2500, L500.3400 #### [facility] [address] [place], [address] Eosinophils/100 WBC (Bld) 3.0 % Normal 0-5 [facility] Comment on above: Performed By: #### L 500.4100, L100.0100, L500.2500, L500.3400 #### [facility] [address] [place], [address] Erythrocyte distribution width (RBC) [Ratio] 13.6 % Normal 11.6-14.6 [facility] Comment on above: Performed By: #### L 500.4100, L100.0100, L500.2500, L500.3400 #### [facility] [address], [address] Hematocrit (Bld) [Volume fraction] 36.8 % Low 40-54 [facility] Comment on above: Performed By: #### L 500.4100, L100.0100, L500.2500, L500.3400 #### [facility] [address] [place], [address] Hemoglobin (Bld) [Mass/Vol] 12.6 g/dL Low 13.0-16.5 [facility] Comment on above: Performed By: #### L 500.4100, L100.0100, L500.2500, L500.3400 #### [facility] [address] [place], [address] IG% 0.400 Normal 0.0-0.9 [facility] Comment on above: Result Comment: IG% - Immature Granulocytes (promyelocytes, myelocytes and metamyelocytes) > 1% indicates that a LEFT SHIFT is Present. Performed By: #### L 500.4100, L100.0100, L500.2500, L500.3400 #### [facility] [address] [place], [address] Lymphocytes/100 WBC (Bld) 21.9 % Normal 19-41 [facility] Comment on above: Performed By: #### L 500.4100, L100.0100, L500.2500, L500.3400 #### [facility] [address] [place], [address] MCH (RBC) [Entitic mass] 32.7 pg High 27.0-32.0 [facility] Comment on above: Performed By: #### L 500.4100, L100.0100, L500.2500, L500.3400 #### [facility] [address] [place], [address] MCHC (RBC) [Mass/Vol] 34.2 g/dL Normal 32-36 [facility] Comment on above: Performed By: #### L 500.4100, L100.0100, L500.2500, L500.3400 #### [facility] [address] [place], [address] MCV (RBC) [Entitic vol] 95.6 fL High 80-94 [facility] Comment on above: Performed By: #### L 500.4100, L100.0100, L500.2500, L500.3400 #### [facility] [address] [place], [address] Monocytes/100 WBC (Bld) 10.0 % Normal 0-10 [facility] Comment on above: Performed By: #### L 500.4100, L100.0100, L500.2500, L500.3400 #### [facility] [address] [place], [address] Neutrophils/100 WBC (Bld) 64.1 % Normal 47-70 [facility] Comment on above: Performed By: #### L 500.4100, L100.0100, L500.2500, L500.3400 #### [facility] [address] [place], [address] Nucleated RBC (Bld) [#/Vol] 0 10*3/uL Normal 0-5 [facility] Comment on above: Performed By: #### L 500.4100, L100.0100, L500.2500, L500.3400 #### [facility] [address] [place], [address] Platelet mean volume (Bld) [Entitic vol] 10.3 fL Normal 6.2-12.0 [facility] Comment on above: Performed By: #### L 500.4100, L100.0100, L500.2500, L500.3400 #### [facility] [address] [place], [address] Platelets (Bld) [#/Vol] 200 10*3/uL Normal 150-450 [facility] Comment on above: Performed By: #### L 500.4100, L100.0100, L500.2500, L500.3400 #### [facility] [address] [place], [address] RBC (Bld) [#/Vol] 3.85 10*6/uL Low 4.6-6.2 [facility] Comment on above: Performed By: #### L 500.4100, L100.0100, L500.2500, L500.3400 #### [facility] [address] [place], [address] RDW SD 47.8 fl High 35.1-43.9 [facility] Comment on above: Performed By: #### L 500.4100, L100.0100, L500.2500, L500.3400 #### [facility] [address] [place], [address] WBC (Bld) [#/Vol] 5.3 10*3/uL Normal 4.4-11.0 [facility] Comment on above: Performed By: #### L 500.4100, L100.0100, L500.2500, L500.3400 #### [facility] [address] [place], [address] Basic Metabolic Profile (BMP )on 10-19-2024 BUN/CRE 14.0 RATIO Normal 10-20 [facility] Comment on above: Performed By: #### L 500.4100, L100.0100, L500.2500, L500.3400 #### [facility] [address] [place], [address] Calcium [Mass/Vol] 9.4 mg/dL Normal 7.6-11.0 [facility] Comment on above: Performed By: #### L 500.4100, L100.0100, L500.2500, L500.3400 #### [facility] [address] [place], [address] Chloride [Moles/Vol] 103 mmol/L Normal 98-108 [facility] Comment on above: Performed By: #### L 500.4100, L100.0100, L500.2500, L500.3400 #### [facility] [address] [place], [address] CO2 [Moles/Vol] 23.9 mmol/L Normal 21.0-32.0 [facility] Comment on above: Performed By: #### L 500.4100, L100.0100, L500.2500, L500.3400 #### [facility] [address] [place], [address] Creatinine [Mass/Vol] 1.04 mg/dL Normal 0.70-1.20 [facility] Comment on above: Performed By: #### L 500.4100, L100.0100, L500.2500, L500.3400 #### [facility] [address] [place], [address] GAP 12 Normal 5-15 [facility] Comment on above: Performed By: #### L 500.4100, L100.0100, L500.2500, L500.3400 #### [facility] [address] [place], [address] GFR/1.73 sq M.predicted among non-blacks MDRD (S/P/Bld) [Vol rate/Area] 75 mL/min/{1.73_m2} Normal >60 [facility] Comment on above: Result Comment: mL/m in/1.73m2 CKD-EPI Creatinine Equation (2020) Performed By: #### L 500.4100, L100.0100, L500.2500, L500.3400 #### [facility] [address] [place], [address] Glucose [Mass/Vol] 90 mg/dL Normal 70-99 [facility] Comment on above: Performed By: #### L 500.4100, L100.0100, L500.2500, L500.3400 #### [facility] [address] [place], [address] Potassium [Moles/Vol] 3.9 mmol/L Normal 3.3-5.1 [facility] Comment on above: Performed By: #### L 500.4100, L100.0100, L500.2500, L500.3400 #### [facility] [address] [place], [address] Sodium [Moles/Vol] 139 mmol/L Normal 133-145 [facility] Comment on above: Performed By: #### L 500.4100, L100.0100, L500.2500, L500.3400 #### [facility] [address] [place], [address] Urea nitrogen [Mass/Vol] 15 mg/dL Normal - [facility] Comment on above: Performed By: #### L 500.4100, L100.0100, L500.2500, L500.3400 #### [facility] [address] [place], [address] BUN Normal - [facility] Comment on above: Result Comment: RHONA Dorado Performed By: #### L 100.0100, L500.2500 #### [facility] [address] [place], [address] BUN/CRE Normal - [facility] Comment on above: Result Comment: WRON G Performed By: #### L 100.0100, L500.2500 #### [facility] [address] [place], [address] Calcium Normal 7.6-11.0 [facility] Comment on above: Result Comment: WRON G Performed By: #### L 100.0100, L500.2500 #### [facility] [address] [place], [address] CL Normal 98-108 [facility] Comment on above: Result Comment: WRON G Performed By: #### L 100.0100, L500.2500 #### [facility] [address] [place], [address] CO2 Normal 21.0-32.0 [facility] Comment on above: Result Comment: WRON G Performed By: #### L 100.0100, L500.2500 #### [facility] [address] [place], [address] CREAT,SERUM Normal 0.70-1.20 [facility] Comment on above: Result Comment: WRON G Performed By: #### L 100.0100, L500.2500 #### [facility] [address] [place], [address] eGFR Normal >60 [facility] Comment on above: Result Comment: WRON G Performed By: #### L 100.0100, L500.2500 #### [facility] [address] [place], [address] GAP Normal 5-15 [facility] Comment on above: Result Comment: WRON G Performed By: #### L 100.0100, L500.2500 #### [facility] [address] [place], [address] GLU Normal 70-99 [facility] Comment on above: Result Comment: WRON G Performed By: #### L 100.0100, L500.2500 #### [facility] [address] [place], [address] Potassium Normal 3.3-5.1 [facility] Comment on above: Result Comment: WRON G Performed By: #### L 100.0100, L500.2500 #### [facility] [address] [place], [address] Basic Metabolic Profile (BMP) Normal 133-145 [facility] Comment on above: Result Comment: WRON G Performed By: #### L 100.0100, L500.2500 #### [facility] [address] [place], [address] CBC W/Diff, Automatedon 09-1 0-2024 Absolute Neut Normal 2.0-7.7 [facility] Comment on above: Result Comment: WRON G Performed By: #### L 100.0100, L500.2500 #### [facility] [address] [place], [address] HCT Normal 40-54 [facility] Comment on above: Result Comment: WRON G Performed By: #### L 100.0100, L500.2500 #### [facility] [address] [place], [address] HGB Normal 13.0-16.5 [facility] Comment on above: Result Comment: WRON G Performed By: #### L 100.0100, L500.2500 #### [facility] [address] [place], [address] MCH Normal 27.0-32.0 [facility] Comment on above: Result Comment: WRON G Performed By: #### L 100.0100, L500.2500 #### [facility] [address] [place], [address] MCHC Normal 32-36 [facility] Comment on above: Result Comment: WRON G Performed By: #### L 100.0100, L500.2500 #### [facility] [address] [place], [address] MCV Normal 80-94 [facility] Comment on above: Result Comment: WRON G Performed By: #### L 100.0100, L500.2500 #### [facility] [address] [place], [address] NEUT% Normal 47-70 [facility] Comment on above: Result Comment: WRON G Performed By: #### L 100.0100, L500.2500 #### [facility] [address] [place], [address] PLT Normal 150-450 [facility] Comment on above: Result Comment: WRON G Performed By: #### L 100.0100, L500.2500 #### [facility] [address] [place], [address] RBC Normal 4.6-6.2 [facility] Comment on above: Result Comment: WRON G Performed By: #### L 100.0100, L500.2500 #### [facility] [address] [place], [address] RDW CV Normal 11.6-14.6 [facility] Comment on above: Result Comment: WRON G Performed By: #### L 100.0100, L500.2500 #### [facility] [address] [place], [address] RDW SD Normal 35.1-43.9 [facility] Comment on above: Result Comment: WRON G Performed By: #### L 100.0100, L500.2500 #### [facility] [address] [place], [address] WBC Normal 4.4-11.0 [facility] Comment on above: Result Comment: WRON G Performed By: #### L 100.0100, L500.2500 #### [facility] [address] [place], [address] Lipid Profileon 10-19-2024 CHOL:HDL 5.74 Normal [facility] Comment on above: Performed By: #### L 500.4100, L100.0100, L500.2500, L500.3400 #### [facility] [address] [place], [address] Cholesterol [Mass/Vol] 257 mg/dL High <=200 [facility] Comment on above: Result Comment: Chol esterol level, Desirable <200 mg/dL Borderline high cholesterol 200-239 mg/dL High cholesterol >=240 mg/dL Recommendations of the NCEP Adult Treatment Panel for the following risk-cutoff thresholds for the [place] population. Performed By: #### L 500.4100, L100.0100, L500.2500, L500.3400 #### [facility] [address] [place], [address] Cholesterol in HDL [Mass/Vol] 45 mg/dL Normal [facility] Comment on above: Result Comment: Steffanie onal Cholesterol Education Program (NCEP) guidelines: <40 mg/dL: Low HDL-cholesterol (major risk factor for CHD) >= 60 mg/dL: High HDL-cholesterol (negative risk factor for CHD) HDL-cholesterol is affected by a number of factors, e.g. smoking, exercise, hormones, sex and age. Performed By: #### L 500.4100, L100.0100, L500.2500, L500.3400 #### [facility] [address] [place], [address] Cholesterol in LDL [Mass/Vol] 176 mg/dL Normal [facility] Comment on above: Result Comment: Bord kjtktl=691-640 mg/dL Higher Kixb=781 mg/dL or greater Friedwald Equation for LDL-C Performed By: #### L 500.4100, L100.0100, L500.2500, L500.3400 #### [facility] [address] [place], [address] Cholesterol in VLDL [Mass/Vol] 36 mg/dL Normal 5-40 [facility] Comment on above: Performed By: #### L 500.4100, L100.0100, L500.2500, L500.3400 #### [facility] [address] [place], [address] Triglyceride [Mass/Vol] 182 mg/dL Normal [facility] Comment on above: Result Comment: The drugs N-Acetylcysteine and Metamizole may falsely depress this assay. Normal range: <150 mg/dL Borderline High: 150-199 mg/dL High: 200-499 mg/dL Very High: >500 mg/dL Performed By: #### L 500.4100, L100.0100, L500.2500, L500.3400 #### [facility] [address] [place], [address] Liver Profileon 10-19-2024 Albumin [Mass/Vol] 4.1 g/dL Normal 3.4-4.8 [facility] Comment on above: Performed By: #### L 500.4100, L100.0100, L500.2500, L500.3400 #### [facility] [address] [place], [address] ALK PHOS 56 U/L Normal 40-129 [facility] Comment on above: Performed By: #### L 500.4100, L100.0100, L500.2500, L500.3400 #### [facility] [address] [place], [address] ALT [Catalytic activity/Vol] 20 U/L Normal <=46 [facility] Comment on above: Performed By: #### L 500.4100, L100.0100, L500.2500, L500.3400 #### [facility] [address] [place], [address] AST [Catalytic activity/Vol] 25 U/L Normal <=37 [facility] Comment on above: Performed By: #### L 500.4100, L100.0100, L500.2500, L500.3400 #### [facility] [address] [place], [address] Bilirubin [Mass/Vol] 0.76 mg/dL Normal 0.00-1.30 [facility] Comment on above: Performed By: #### L 500.4100, L100.0100, L500.2500, L500.3400 #### [facility] [address] [place], [address] Bilirubin.direct [Mass/Vol] 0.25 mg/dL Normal 0.00-0.30 [facility] Comment on above: Performed By: #### L 500.4100, L100.0100, L500.2500, L500.3400 #### [facility] [address] [place], [address] Globulin (S) [Mass/Vol] 2.2 g/dL Normal 2.2-4.2 [facility] Comment on above: Performed By: #### L 500.4100, L100.0100, L500.2500, L500.3400 #### [facility] [address] [place], [address] T PROT 6.3 g/dL Normal 5.9-8.4 [facility] Comment on above: Performed By: #### L 500.4100, L100.0100, L500.2500, L500.3400 #### [facility] [address] [place], [address] CNOVon 10-17-2024 CNOV Office Visit (UROLMN ) MARIA LUZ SANTANA II ([id number]) 1950 M Date Time Provider Department 10/17/24 [...] The prescription has been sent to your [facility] pharmacy. Take it like a daily vitamin. [...] your testosterone levels. Please go to the [facility] [place] lab before 11:00 AM tomorrow. Fasting is not required. Follow-up: - I will schedule a follow-up appointment for you with my physician admin assistant, Tristen Voss, in [place]. He specializes in erectile dysfunction and can [...] Patient info Maria Luz Santana II 1950 [id number] CC: The patient is a 74-year-old male [...] and Cardizem for HTN. He resides in [place] and sought a new urologist due to [...] Dr. Gill EGD WITH BIOPSY(S) 09/24/2023 3 (more content not included)... Normal [facility]gent Care Visit Reporton 0 10-06-2024 Urgent Care Visit Report [facility] [address], [address] [place] [address] OFFICE VISIT Date of Service: 10/06/24 MR#: [id number] Acct: [id number] Name: MARIA LUZ SANTANA II Rep #: [id number] : 1950 Provider: DEEP Díaz Age/Sex: 74/M Location[facility] Status: Signed Intake Vital Signs 09/29/24 11:18 10/06/24 09:00 Height 5 ft 8 in Weight: 203 lb BMI 30.9 BP 105/65 110/60 Blood Pressure Location Lt brachial Position Sitting Sitting Respiration 16 16 Pulse 53 L 51 L Pulse Source Monitor Temp 97.6 F L Temp Source Oral Pulse Oximetry (%) 98 Oxygen Delivery Method room air Intake Visit Reasons: R ANKLE/FOOT, R SIDE RIBS INJURY Chief Complaint: Rt ankle/ foot pain and rib pain Accompanied by: Self Allergies Egg Derived Allergy (Severe, Verified 10/06/24 09:17) Food Allergy febuxostat (From Uloric) Allergy (Intermediate, Verified 10/06/24 09:17) Other levofloxacin (From Levaquin) Allergy (Intermediate, Verified 10/06/24 09:17) Nausea/Vom/Diarrhea Penicillins Allergy (Verified 10/06/24 09:17) Anaphylaxis omeprazole Adverse Reaction (Intermediate, Verified 10/06/24 09:17) Rash pantoprazole (From Protonix) Adverse Reaction (Intermediate, Verified 10/06/24 09:17) Hives Corticosteroids (Glucocorticoids) (steroids) Adverse Reaction (Verified 10/06/24 09:17) Hypertension Milk Containing Products (Dairy) (Milk Containing Products) Adverse Reaction (Verified 10/06/24 09:17) Diarrhea Medications ???Medication ???Instructions ???Recorded ???Confirmed ???Type lisinopril 20 mg tablet 20 mg PO BID HTN 02/20/21 10/06/24 History diltiazem HCl 120 mg 120 mg PO BID 08/14/23 10/06/24 Hi story capsule,extended release 24 hr, controlled (DILT-XR) indapamide 1.25 mg tablet 1.25 mg PO QAM 08/19/24 10/06/24 H istory aspirin 81 mg tablet,delayed 81 mg PO DAILY #90 tabs 09/29/24 0 10/06/24 Rx release (Adult Aspirin Regimen) cranberry fruit 400 mg tablet 400 mg PO BID 09/29/24 10/06/24 Hi story methylprednisolone 4 mg tablets in 4 mg PO PER PKG DIR 6 days #21 t abs 10/06/24 10/06/24 Rx a dose pack (Medrol (Joon)) Have you fallen in the past year?: No PFSH Medical History Gastric reflux BiPAP (biphasic positive airway pressure) dependence History of echocardiogram Fracture, rib Right foot strain Barretts esophagus (01/05/23) Cancer Alcohol use History of irregular heartbeat History of renal cell cancer History of renal disease Wears hearing aid Wears glasses Gout Migraine headache Difficulty swallowing Non-smoker Chronic cough Personal history of supraventricular tachycardia History of stress test Cardiology follow-up encounter Obesity Hyperuricemia Eczema Essential hypertension Fracture of right patella Fracture of right radius Osteoporosis Fracture of radial head, left, closed Closed left hip fracture Surgical History History of repair of hiatal [...] times per week HPI HPI Chief Complaint: Rt ankle/ foot pain and rib pain Details: MARIA LUZ SANTANA, is a 74 M who presents to the office today for right ankle pain that started yesterday. 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 Patient started having the pain around 3pm and it was around his ankle and then last night it was shooting up his ankle. Patient also hurt his ribs yesterday while cleaning the van seats he felt pain. Patient has a osteoprosis and he has broken a rib before. No shortness of breath or difficulty breathing or chest pain other than over the rib area. No other associated symptoms or alleviating/aggravating factors. ROS Const Constitutional: No other (6 system ROS completed with pertinent findings in the HPI otherwise normal.) Exam Const General: cooperative and healthy appearing Chest Chest palpation inspection: tenderness rib right anterior-axillary line involving the 9th rib Resp Effort Inspection: normal (more content not included)... Normal [facility] Cardiology Visit Reporton Cardiology Visit Report [facility] [address] [place] [address] OFFICE VISIT Date of Service: 09/29/24 MR#: [id number] Acct: [id number] Name: MARIA LUZ SANTANA II Rep #: [id number] : 1950 Provider: Dr. Dwayne Klein MD Age/Sex: 74/M Location: [facility] Status: Signed HPI HPI History of Present Illness Details: This is a 74-year-old man who presents to the office today for a cardiovascular follow-up visit. He has a history of hypertension and hyperlipidemia. He has complained of some palpitations for which he had a Holter monitor placed for 24 hours. It did not demonstrate any definitive supraventricular tachyarrhythmia by my perusal but the baseline was wavering. He presented to [facility] on 12/18/21 and 02/11/2022 for complaints of chest pain. On 02/11/2021 his troponins were negative, and the chest pain was thought to be musculoskeletal, and reproducible with movement. His EKG at that time demonstrated sinus bradycardia, possible inferior infarct, heart rate 58 bpm. The inferior infarct was a new finding on his EKG. He underwent a stress test on 02/28/2022 which was negative for ischemia. His echocardiogram at that time as well demonstrated an ejection fraction of 60%. He has continued to have some chest discomfort on and off described as a pressure-like sensation associated with fatigue and dizziness. He did have a stress test in 2022 which demonstrated no evidence of ischemia. He is however concerned about the chest discomfort and the fatigue. He denies, arm, jaw, or neck discomfort. He denies palpitations. He denies bilateral lower extremity edema. He denies claudication. He denies shortness of breath with activity, shortness of breath at rest, orthopnea, or PND. He acknowledges chest congestion associate with postnasal drip. He acknowledges headache. He denies chronic cough. He denies significant, sudden weight gain. He denies lightheadedness, dizziness, near-syncope, or syncope. He denies blood in urine, blood in stool, or epistaxis. He denies fever with chills. He denies myalgia. He denies fatigue. His exercise level has remained stable. 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: No Accompanied by: Significant Other Is patient in pain?: No Allergies Egg Derived Allergy (Severe, Verified 09/29/24 11:26) Food Allergy febuxostat (From Uloric) Allergy (Intermediate, Verified 09/29/24 11:26) Other levofloxacin (From Levaquin) Allergy (Intermediate, Verified 09/29/24 11:26) Nausea/Vom/Diarrhea Penicillins Allergy (Verified 09/29/24 11:26) Anaphylaxis omeprazole Adverse Reaction (Intermediate, Verified 09/29/24 11:26) Rash pantoprazole (From Protonix) Adverse Reaction (Intermediate, Verified 09/29/24 11:26) Hives Corticosteroids (Glucocorticoids) (steroids) Adverse Reaction (Verified 09/29/24 11:26) Hypertension Milk Containing Products (Dairy) (Milk Containing Products) Adverse Reaction (Verified 09/29/24 11:26) Diarrhea Medications ???Medication ???Instructions ???Recorded ???Confirmed ???Type lisinopril 20 mg tablet 20 mg PO BID HTN 02/20/21 09/29/24 History diltiazem HCl 120 mg 120 mg PO BID 08/14/23 09/29/24 Hi story capsule,extended release 24 hr, controlled (DILT-XR) indapamide 1.25 mg tablet 1.25 mg PO QAM 08/19/24 09/29/24 H istory aspirin 81 mg tablet,delayed 81 mg PO DAILY #90 tabs 09/29/24 0 09/29/24 Rx release (Adult Aspirin Regimen) cranberry fruit 400 mg tablet 400 mg PO BID 09/29/24 09/29/24 Hi story Have you fallen in the past year?: No PFSH Medical History Gastric reflux BiPAP (biphasic positive airway pressure) dependence History of echocardiogram Fracture, rib Right foot strain Barretts esophagus (01/05/23) Cancer Alcohol use History of irregular heartbeat History of renal cell cancer History of renal disease Wears hearing aid Wears glasses Gout Migraine headache Difficulty swallowing Non-smoker Chronic cough Personal history of supraventricular tachycardia History of stress test Cardiology follow-up encounter Obesity Hyperuricemia Eczema Essential hypertension Fracture of right patella Fracture of right radius Osteoporosis Fracture of radial head, left, closed Closed left hip fracture Surgical History History of repair of hiatal hernia History of esophagogastroduodenosc opy (EGD) History of colonoscopy History of partial nephrectomy His (more content not included)... Normal [facility] ANTINUCLEAR ANTIBODIES DIREC Ton 09-07-2024 ELISEO,DIRECT Negative Normal Negative [facility] Comment on above: Order Comment: Order Date: 09/05/24Order Info: [id number] - ELISEO Result Comment: Perf ormed at: - [facility] [address] [id number] Fur Mixer Operator: Aime Guadalupe PhD, Phone: [phone] Performed By: #### L 501.6710, L101.9900, L100.0500 #### [facility] [address] [place], [place], [id number] Lyme Screen W/Reflex WBon LYME SCREEN Ab Negative Normal Negative [facility] Comment on above: Order Comment: Order Date: 09/05/24Order Info: [id number] - LYMS Result Comment: Lyme antibodies not detected. Reflex testing is not indicated. No laboratory evidence of infection with B. burgdorferi (Lyme disease). Negative results may occur in patients recently infected (less than or equal to 14 days) with B. burgdorferi. If recent infection is suspected, repeat testing on a new sample collected in 7 to 14 days is recommended. Performed at: [address] [id number] Fur Mix[employer] Operator: Aime Guadalupe PhD, Phone: [phone] Performed By: #### L 501.6710, L101.9900, L100.0500 #### [facility] [address] [place], [address] CRPon 09-05-2024 C-REACTIVE PROT < 3.00 Normal 0.0-3.0 [facility] Comment on above: Order Comment: Order Date: 09/05/24Order Info: [id number] - CRPOrder Info: [id number] - TSH Performed By: #### L 501.6710, L101.9900, L100.0500 #### [facility] [address] [place], [place], [id number] Carbamazepine (Tegretol)on 0 09-05-2024 CARBAMAZEPINE < 2.0 Low 4.0-12.0 [facility] Comment on above: Order Comment: Order Date: 09/05/24Order Info: [id number] - CARB Performed By: #### L 501.6710, L101.9900, L100.0500 #### [facility] [address] [place], [place], [id number] Erythrocyte Sed Rateon 09-05 SED RATE < 1 Normal 0-20 [facility] Comment on above: Order Comment: Order Date: 09/05/24Order Info: [id number] - SED Performed By: #### L 501.6710, L101.9900, L100.0500 #### [facility] [address] [place], [place], [id number] Erythrocyte sedimentation ra teOrdered By: Ana Casiano on 09-05-2024 ESR (Bld) [Velocity] mm/h 0-20 [facility] Serum or plasma C reactive p rotein measurement (mass/volume)Ordered By: Ana Casiano on 09-05-2024 CRP [Mass/Vol] mg/L 0.0-3.0 [facility] Serum or plasma carbamazepin e level (mass/volume)Ordered By: Ana Casiano on 09-05-2024 carBAMazepine [Mass/Vol] < 2.0 ug/mL Low 4.0-12.0 [facility] TSH DL <= 0.005 mIU/L QnOrde red By: Ana Casiano on 09-05-2024 TSH Qn 1.230 uIU/mL 0.300-4.200 [facility] Thyroid Stim Hormone (TSH)on 09-05-2024 TSH 1.230 uIU/mL Normal 0.300-4.200 [facility] Comment on above: Order Comment: Order Date: 09/05/24Order Info: [id number] - CRPOrder Info: [id number] - TSH Performed By: #### L 501.6710, L101.9900, L100.0500 #### [facility] [address] [place], [address] 12 Lead EKGon 09-03-2024 12 Lead EKG [facility] Cardiovascular Services [address] [place] [address] 12 Lead EKG 09/03/24 0759 MR#: [id number] Acct: [id number] Name: MARIA LUZ SANTANA II Rep #: [id number] : 1950 73 From: Dwayne Klein MD Attending Dr: Status: DEP ER Ordering Dr: Latonia Petersen DO Date: 09/03/24 Location: ED Sex: M C Admitted: Test Reason : CP Blood Pressure : */* mmHG Vent. Rate : 50 BPM Atrial Rate : 50 BPM P-R Int : 192 ms QRS Dur : 96 ms QT Int : 448 ms P-R-T Axes : 43 6 22 degrees QTcB Int : 408 ms Sinus bradycardia Cannot rule out Inferior infarct , age undetermined Abnormal ECG Confirmed by DWAYNE KLEIN MD ([id number]), city editor KAVIN GALAN ([id number]) on 09/05/2024 7:28:45 AM Referred By: CG Confirmed By: DWAYNE KLEIN MD 09/05/24727 Dwayne Klein MD CC: Dr. Latonia Petersen DO; Dr. Ana Casiano MD Signed Normal [facility] Absolute lymphocyte countOrd ered By: Latonia Petersen on 09-03-2024 Lymphocytes Auto (Unsp spec) [#/Vol] 1.14 10*3/uL 0.83-4.51 [facility] Absolute neutrophil countOrd ered By: Latonia Petersen on 09-03-2024 Neutrophils (Bld) [#/Vol] 3.5 10*3/uL 2.0-7.7 [facility] Anion gap in Serum or Plasma Ordered By: Latonia Petersen on 09-03-2024 Anion gap [Moles/Vol] 13 mmol/L - [facility] Automated lymphocyte count a s percentage of total leukocytesOrdered By: Latonia Petersen on 09-03-2024 Lymphocytes/100 WBC Auto (Unsp spec) 21.4 % [facility] BUN/creatinine ratioOrdered By: Latonia Petersen on 09-03-2024 Urea nitrogen/Creatinine [Mass ratio] 13.8 mg/mg 11-28 [facility] Basic Metabolic Profile (BMP )on 09-03-2024 BUN/CRE 13.8 RATIO Normal 11-28 [facility] Comment on above: Performed By: #### L 501.6710, L101.9900, L100.0500 #### [facility] [address] [place], [address] Calcium [Mass/Vol] 9.7 mg/dL Normal 7.6-11.0 [facility] Comment on above: Performed By: #### L 501.6710, L101.9900, L100.0500 #### [facility] [address] [place], [address] Chloride [Moles/Vol] 102 mmol/L Normal 98-108 [facility] Comment on above: Performed By: #### L 501.6710, L101.9900, L100.0500 #### [facility] [address] [place], [address] CO2 [Moles/Vol] 24.2 mmol/L Normal 21.0-32.0 [facility] Comment on above: Performed By: #### L 501.6710, L101.9900, L100.0500 #### [facility] [address] [place], [address] Creatinine [Mass/Vol] 1.08 mg/dL Normal 0.70-1.20 [facility] Comment on above: Performed By: #### L 501.6710, L101.9900, L100.0500 #### [facility] [address] [place], [address] ECRCL 67.25 ml/min Normal 50-250 [facility] Comment on above: Performed By: #### L 501.6710, L101.9900, L100.0500 #### [facility] [address] [place], [address] GAP 13 Normal 5-15 [facility] Comment on above: Performed By: #### L 501.6710, L101.9900, L100.0500 #### [facility] [address] [place], [address] GFR/1.73 sq M.predicted among non-blacks MDRD (S/P/Bld) [Vol rate/Area] 72 mL/min/{1.73_m2} Normal >60 [facility] Comment on above: Result Comment: mL/m in/1.73m2 CKD-EPI Creatinine Equation (2020) Performed By: #### L 501.6710, L101.9900, L100.0500 #### [facility] [address] [place], [address] Glucose [Mass/Vol] 120 mg/dL High 70-99 [facility] Comment on above: Performed By: #### L 501.6710, L101.9900, L100.0500 #### [facility] [address] [place], [address] Potassium [Moles/Vol] 4.1 mmol/L Normal 3.3-5.1 [facility] Comment on above: Result Comment: Hemo lysis present, Results??could be affected. ?? Performed By: #### L 501.6710, L101.9900, L100.0500 #### [facility] [address] [place], [address] Sodium [Moles/Vol] 139 mmol/L Normal 133-145 [facility] Comment on above: Performed By: #### L 501.6710, L101.9900, L100.0500 #### [facility] [address] [place], [address] Urea nitrogen [Mass/Vol] 15 mg/dL Normal 4-19 [facility] Comment on above: Performed By: #### L 501.6710, L101.9900, L100.0500 #### [facility] [address] [place], [address] Basophil percentageOrdered B y: Latonia Godman on 09-03-2024 Basophils/100 WBC (Bld) 0.6 % 0-1 [facility] CBC W/Diff, Automatedon 08-10 Absolute Lymph 1.14 X10 3/uL Normal 0.83-4.51 [facility] Comment on above: Performed By: #### L 501.6710, L101.9900, L100.0500 #### [facility] [address] [place], [address] Absolute Neut 3.5 X10 3/uL Normal 2.0-7.7 [facility] Comment on above: Performed By: #### L 501.6710, L101.9900, L100.0500 #### [facility] [address] [place], [address] Basophils/100 WBC (Bld) 0.6 % Normal 0-1 [facility] Comment on above: Performed By: #### L 501.6710, L101.9900, L100.0500 #### [facility] [address] [place], [address] Eosinophils/100 WBC (Bld) 2.4 % Normal 0-5 [facility] Comment on above: Performed By: #### L 501.6710, L101.9900, L100.0500 #### [facility] [address] [place], [address] Erythrocyte distribution width (RBC) [Ratio] 13.7 % Normal 11.6-14.6 [facility] Comment on above: Performed By: #### L 501.6710, L101.9900, L100.0500 #### [facility] [address] [place], [address] Hematocrit (Bld) [Volume fraction] 37.5 % Low 40-54 [facility] Comment on above: Performed By: #### L 501.6710, L101.9900, L100.0500 #### [facility] [address] [place], [address] Hemoglobin (Bld) [Mass/Vol] 13.0 g/dL Normal 13.0-16.5 [facility] Comment on above: Performed By: #### L 501.6710, L101.9900, L100.0500 #### [facility] [address] [place], [address] IG% 0.400 Normal 0.0-0.9 [facility] Comment on above: Result Comment: IG% - Immature Granulocytes (promyelocytes, myelocytes and metamyelocytes) > 1% indicates that a LEFT SHIFT is Present. Performed By: #### L 501.6710, L101.9900, L100.0500 #### [facility] [address] [place], [address] Lymphocytes/100 WBC (Bld) 21.4 % Normal 19-41 [facility] Comment on above: Performed By: #### L 501.6710, L101.9900, L100.0500 #### [facility] [address] [place], [address] MCH (RBC) [Entitic mass] 32.4 pg High 27.0-32.0 [facility] Comment on above: Performed By: #### L 501.6710, L101.9900, L100.0500 #### [facility] [address] [place], [address] MCHC (RBC) [Mass/Vol] 34.7 g/dL Normal 32-36 [facility] Comment on above: Performed By: #### L 501.6710, L101.9900, L100.0500 #### [facility] [address] [place], [address] MCV (RBC) [Entitic vol] 93.5 fL Normal 80-94 [facility] Comment on above: Performed By: #### L 501.6710, L101.9900, L100.0500 #### [facility] [address] [place], [address] Monocytes/100 WBC (Bld) 10.1 % High 0-10 [facility] Comment on above: Performed By: #### L 501.6710, L101.9900, L100.0500 #### [facility] [address] [place], [address] Neutrophils/100 WBC (Bld) 65.1 % Normal 47-70 [facility] Comment on above: Performed By: #### L 501.6710, L101.9900, L100.0500 #### [facility] [address] [place], [address] Nucleated RBC (Bld) [#/Vol] 0 10*3/uL Normal 0-5 [facility] Comment on above: Performed By: #### L 501.6710, L101.9900, L100.0500 #### [facility] [address] [place], [address] Platelet mean volume (Bld) [Entitic vol] 9.5 fL Normal 6.2-12.0 [facility] Comment on above: Performed By: #### L 501.6710, L101.9900, L100.0500 #### [facility] [address] [place], [address] Platelets (Bld) [#/Vol] 182 10*3/uL Normal 150-450 [facility] Comment on above: Performed By: #### L 501.6710, L101.9900, L100.0500 #### [facility] [address] [place], [address] RBC (Bld) [#/Vol] 4.01 10*6/uL Low 4.6-6.2 [facility] Comment on above: Performed By: #### L 501.6710, L101.9900, L100.0500 #### [facility] [address] [place], [address] RDW SD 46.7 fl High 35.1-43.9 [facility] Comment on above: Performed By: #### L 501.6710, L101.9900, L100.0500 #### [facility] [address] [place], [address] WBC (Bld) [#/Vol] 5.3 10*3/uL Normal 4.4-11.0 [facility] Comment on above: Performed By: #### L 501.6710, L101.9900, L100.0500 #### [facility] [address] [place], [address] CPK Total, Creatine Kinaseon 09-03-2024 CPK TOTAL 96 U/L Normal 24-195 [facility] Comment on above: Performed By: #### L 501.6710, L101.9900, L100.0500 #### [facility] [address] [place], [address] Carbon dioxide, total [Moles /volume] in Central venous bloodOrdered By: Latonia Petersen on 09-03-2024 CO2 [Moles/Vol] 24.2 mmol/L 21.0-32.0 [facility] Chest PA and Lateralon 09-03 Chest PA and Lateral [facility] Imaging Services [address] [place] [address] Chest PA and Lateral MR#: [id number] Acct: [id number] Name: VICKIMARIA LUZ RICH BOOTHE Rep #: [id number] : 1950 M 73 From: Tarik Coulter MD PCP: Dr. Ana Casiano MD Status: PRE ER Study: Chest PA and Lateral Date of Exam: 09/03/24 Exam# [id number] Ordering Dr: Latonia Petersen DO PROCEDURE: CHEST PA AND LATERAL 09/03/2024 REASON FOR EXAM: CHEST PAIN TECHNIQUE: CHEST PA AND LATERAL COMPARISON: 01/14/2024. FINDINGS: The heart is normal in size. The lungs are hyperexpanded with probable mild chronic interstitial changes. No acute osseous abnormalities. RAD/Chest PA and Lateral IMPRESSION: No acute cardiopulmonary abnormalities. Reading Location: [id number] CC: Dr. Latonia Petersen DO; Dr. Ana Casiano MD Hardware Designer: Signed Normal [facility] Chloride assayOrdered By: Brian Petersen on 09-03-2024 Chloride [Moles/Vol] 102 mmol/L 98-108 [facility] Emergency Department Summary on 09-03-2024 Emergency Department Summary [facility] Medical Records Department [address] [place] [address] Emergency Department Summary 09/03/24 MR#: [id number] Acct: [id number] Name: MARIA LUZ SANTANA II Rep #: [id number] : 1950 73 From: Latonia Petersen DO PCP: Dr. Ana Casiano MD Status:REG ER Location: ED HPI History of Present Illness Chief Complaint: Chest Pain Informant: patient Narrative Narrative: Patient is a 73-year-old male with history of SVT, Anthony's esophagus, GERD and obstructive sleep apnea as well as hyperlipidemia presenting for chest discomfort. Patient states that he woke up at around 5 AM this morning. States it is on the left side of his chest and he has some numbness going down his left arm. States it is worse with some movements. Has had symptoms like this before and states it is usually not his heart. Denies any acute shortness of breath but states he always has a little bit of shortness of breath associate with his Anthony's. Denies any recent leg swelling. Does note that yesterday he is concerned an episode of heat exhaustion or heatstroke. States he was out mowing the lawn (a self-propelled walking mower) and was wearing headphones as well as hat. He states is very hot out and he feels like he got overheated. He came inside and was profusely sweating for about an hour. He fell asleep. He states he had an episode of cramping lower abdominal pain and diarrhea. He does not recall if there is any blood in his stool (states he did not look). Had some nausea but no vomiting. The symptoms have since resolved. His states that he might of had streaks of stroke but he did not actually think about it and that is why did not come in yesterday. He is also concerned that his SVT could be acting up. He notes he has been feeling a little off lately but no other specific complaints. Has not had any aspirin today. Denies any swelling of his legs. Denies any history of coronary artery disease, stenting or cardiac catheterization. States his last tress test was about 2 years ago and he states was normal. [facility] Medical History Right foot strain Barretts [...] mg PO BID HTN 02/20/21 06/12/21 History diltiazem HCl 120 mg 120 mg PO BID 08/14/23 Unknown His tory capsule,extended release 24 hr, controlled (DILT-XR) indapamide 1.25 mg tablet 1.25 mg PO QAM 08/19/24 Unknown Hi story Allergy/AdvReac Type Severity Reaction Status Date / Time Egg Derived Allergy Severe Food Verified 09/03/24 07:53 Allergy febuxostat (From Uloric) Allergy Intermediate Other Verified 09/03/24 07:53 Penicillins Allergy Anaphylaxis Verified 09/03/24 07:53 omeprazole AdvReac Intermediate Rash Verified 09/03/24 07:53 pantoprazole (From Protonix) AdvReac Intermediate Hives Verified 09/03/24 07:53 Corticosteroids AdvReac Hypertensio Verified 09/03/24 07:53 (Glucocorticoids) (steroids) n Milk Containing Products AdvReac Diarrhea Verified 09/03/24 07:53 (Dairy) (Milk Containing Products) Family History Mother [...] week ROS ROS ED Constitutional Constitutional ED: Reports sweats; Denies chills or fever(s) ENT ENT ED: Denies sore throat (more content not included)... Normal [facility] Eosinophil percentageOrdered By: Latonia Petersen on 09-03-2024 Eosinophils/100 WBC (Bld) 2.4 % 0-5 [facility] Erythrocyte distribution wid th ratioOrdered By: Latonia Petersen on 09-03-2024 Erythrocyte distribution width (RBC) [Ratio] 13.7 % 11.6-14.6 [facility] Erythrocyte distribution wid th standard deviationOrdered By: Latonia Pteersen on 09-03-2024 Erythrocyte distribution width (RBC) [Ratio] 46.7 fl High 35.1-43.9 [facility] Glomerular filtration rate ( GFR) estimation/1.73 sq m using serum, plasma, or whole bOrdered By: Latonia Petersen on 09-03-2024 GFR/1.73 sq M.predicted among non-blacks MDRD (S/P/Bld) [Vol rate/Area] 72 mL/min/{1.73_m2} >60 [facility] Comment on above: mL/min/1.73m2 CKD-EP I Creatinine Equation (2020) Hematocrit Auto (Bld) [Volum e fraction]Ordered By: Latonia Petersen on 09-03-2024 Hematocrit (Bld) [Volume fraction] 37.5 % Low 40-54 [facility] Hemoglobin measurementOrdere d By: Latonia Petersen on 09-03-2024 Hemoglobin (Bld) [Mass/Vol] 13.0 g/dL 13.0-16.5 [facility] Immature granulocytes/100 WB C Auto (Bld)Ordered By: Latonia Petersen on 09-03-2024 Immature granulocytes/100 WBC (Bld) 0.400 % 0.0-0.9 [facility] Comment on above: IG% - Immature Granu locytes (promyelocytes, myelocytes and metamyelocytes) > 1% indicates that a LEFT SHIFT is Present. L501.4021on 09-03-2024 Trop T High Sen 18 ng/L Normal <=22 [facility] Comment on above: Performed By: #### L 501.6710, L101.9900, L100.0500 #### [facility] [address] [place], [address] MCV (mean corpuscular volume ) determinationOrdered By: Latonia Petersen on 09-03-2024 MCV (RBC) [Entitic vol] 93.5 fL 80-94 [facility] Magnesiumon 09-03-2024 Magnesium [Mass/Vol] 2.3 mg/dL High 1.5-2.2 [facility] Comment on above: Performed By: #### L 501.6710, L101.9900, L100.0500 #### [facility] [address] [place], [address] Magnesium measurement (mass/ volume)Ordered By: Latonia Petersen on 09-03-2024 Magnesium (Unsp spec) [Mass/Vol] 2.3 mg/dL High 1.5-2.2 [facility] Mean corpuscular hemoglobin (MCH) determinationOrdered By: Latonia Petersen on 09-03-2024 MCH (RBC) [Entitic mass] 32.4 pg High 27.0-32.0 [facility] Mean corpuscular hemoglobin concentration (MCHC) determinationOrdered By: Latonia Petersen on 09-03-2024 MCHC (RBC) [Mass/Vol] 34.7 g/dL 32-36 [facility] Mean platelet volume determi nationOrdered By: Latonia Petersen on 09-03-2024 Platelet mean volume (Bld) [Entitic vol] 9.5 fL 6.2-12.0 [facility] Monocyte percentageOrdered B y: Latonia Petersen on 09-03-2024 Monocytes/100 WBC (Bld) 10.1 % High 0-10 [facility] Neutrophil percentageOrdered By: Latonia Petersen on 09-03-2024 Neutrophils/100 WBC (Bld) 65.1 % 47-70 [facility] Nucleated red blood cell per centageOrdered By: Latonia Petersen on 09-03-2024 Nucleated RBC/100 WBC (Bld) [Ratio] 0 % 0-5 [facility] Platelet countOrdered By: Brian Petersen on 09-03-2024 Platelets (Bld) [#/Vol] 182 10*3/uL 150-450 [facility] Potassium measurement (mass/ volume)Ordered By: Latonia Petersen on 09-03-2024 Potassium (Unsp spec) [Mass/Vol] 4.1 mmol/L 3.3-5.1 [facility] Comment on above: Hemolysis present, R esults could be affected. RBC Auto (Bld) [#/Vol]Ordere d By: Latonia Petersen on 09-03-2024 RBC (Bld) [#/Vol] 4.01 10*6/uL Low 4.6-6.2 [facility] Serum creatinine measurement (mass/volume)Ordered By: Latonia Petersen on 09-03-2024 Creatinine [Mass/Vol] 1.08 mg/dL 0.70-1.20 [facility] Serum glucose measurement (m ass/volume)Ordered By: Latonia Petersen on 09-03-2024 Glucose [Mass/Vol] 120 mg/dL High 70-99 [facility] Serum or plasma calcium rem[place] urement (mass/volume)Ordered By: Latonia Petersen on 09-03-2024 Calcium [Mass/Vol] 9.7 mg/dL 7.6-11.0 [facility] Serum or plasma creatine kin ase activityOrdered By: Latonia Petersen on 09-03-2024 CK [Catalytic activity/Vol] 96 U/L 24-195 [facility] Serum or plasma urea nitroge n measurement (mass/volume)Ordered By: Latonia Petersen on 09-03-2024 Urea nitrogen [Mass/Vol] 15 mg/dL 4-19 [facility] Sodium levelOrdered By: Mariana Petersen on 09-03-2024 Sodium [Moles/Vol] 139 mmol/L 133-145 [facility] Troponin T HS 2 HRon 025 Trop T High Sen 16 ng/L Normal <=22 [facility] Comment on above: Performed By: #### L 501.6710, L101.9900, L100.0500 #### [facility] [address] [place], [place], [address] Troponin T HS 4 HRon 025 Trop T High Sen Normal <=22 [facility] Comment on above: Result Comment: Canc elled via OM: Order cancelled - Patient discharged Performed By: #### L 501.6710, L101.9900, L100.0500 #### [facility] [address] [place], [address] Troponin T.cardiac [Mass/vol ume] in Serum or Plasma by High sensitivity methodOrdered By: Latonia Petersen on 09-03-2024 Troponin T.cardiac High sensitivity method [Mass/Vol] 16 ng/L <22 [facility] Troponin T.cardiac High sensitivity method [Mass/Vol] 18 ng/L <22 [facility] White blood cell (WBC) count Ordered By: Latonia Petersen on 09-03-2024 WBC (Bld) [#/Vol] 5.3 10*3/uL 4.4-11.0 [facility] Gastroenterology Visit Repor ton 08-19-2024 Gastroenterology Visit Report [facility] [address] [place] [address] OFFICE VISIT Date of Service: 08/19/24 MR#: [id number] Acct: [id number] Name: MARIA LUZ SANTANA II Rep #: [id number] : 1950 Provider: Kaiden Gill, Age/Sex: 73/M Location: [facility] Status: Signed Intake Vital Signs 01/14/24 07:30 [...] office today for follow up. PCP OV 4..23 with back pain (spinal stenosis). Additional difficulty with GERD CT abd/pel ..23 small gallstones; renal nodules; small hiatal hernia [...] for headache(s) (more content not included)... Normal [facility] PSA,Total - Annual Screenon 06-20-2024 PSA,TOT SCREEN 0.88 ng/mL Normal 0.02-4.00 [facility] Comment on above: Order Comment: DAYANAKim JA WAS ASKED ABOUT MARCO A BENAVIDES ORDERS FOR LOOD WORK AND HE REFUSED. Result Comment: This test was performed using the [employer] tPSA method. Measured values of a patient??sample can vary depending on the testing procedure used. PSA values determined on patient samples by different testing procedures cannot be used interchangeably. If there is a change in PSA assays while monitoring therapy, sequential testing should be performed to confirm baseline values. Performed By: #### L 501.6710, L101.9900, L100.0500 #### [facility] [address] [place], [address] Absolute lymphocyte countOrd ered By: Ana Casiano on 05-23-2024 Lymphocytes Auto (Unsp spec) [#/Vol] 1.04 10*3/uL 0.83-4.51 [facility] Absolute neutrophil countOrd ered By: Ana Casiano on 05-23-2024 Neutrophils (Bld) [#/Vol] 3.4 10*3/uL 2.0-7.7 [facility] Anion gap in Serum or Plasma Ordered By: Ana Casiano on 05-23-2024 Anion gap [Moles/Vol] 11 mmol/L - [facility] Automated lymphocyte count a s percentage of total leukocytesOrdered By: Ana Casiano on 05-23-2024 Lymphocytes/100 WBC Auto (Unsp spec) 19.8 % - [facility] BUN/creatinine ratioOrdered By: Ana Casiano on 05-23-2024 Urea nitrogen/Creatinine [Mass ratio] 19.6 mg/mg 10- [facility] Basophil percentageOrdered B y: Ana Casiano on 05-23-2024 Basophils/100 WBC (Bld) 0.6 % 0-1 [facility] Bilirubin, totalOrdered By: Ana Casiano on 05-23-2024 Bilirubin [Mass/Vol] 0.65 mg/dL 0.00-1.30 [facility] CBC W/Diff, Automatedon 05-10 Absolute Lymph 1.04 X10 3/uL Normal 0.83-4.51 [facility] Comment on above: Order Comment: CRP,C BC,SED(DUPLICATE TESTS FOR BOTH DRS.)OTHER TESTS-SMITHOrder Date: 05/23/24Order Info: [id number] - CBCDOrder Info: [id number] - SED Performed By: #### L 501.6710, L101.9900, L100.0500 #### [facility] [address] [place], [address] Absolute Neut 3.4 X10 3/uL Normal 2.0-7.7 [facility] Comment on above: Order Comment: CRP,C BC,SED(DUPLICATE TESTS FOR BOTH DRS.)OTHER TESTS-SMITHOrder Date: 05/23/24Order Info: [id number]- - CBCDOrder Info: [id number] - SED Performed By: #### L 501.6710, L101.9900, L100.0500 #### [facility] [address] [place], [address] Basophils/100 WBC (Bld) 0.6 % Normal 0-1 [facility] Comment on above: Order Comment: CRP,C BC,SED(DUPLICATE TESTS FOR BOTH DRS.)OTHER TESTS-SMITHOrder Date: 05/23/24Order Info: [id number] - CBCDOrder Info: [id number] - SED Performed By: #### L 501.6710, L101.9900, L100.0500 #### [facility] [address] [place], [address] Eosinophils/100 WBC (Bld) 4.0 % Normal 0-5 [facility] Comment on above: Order Comment: CRP,C BC,SED(DUPLICATE TESTS FOR BOTH DRS.)OTHER TESTS-SMITHOrder Date: 05/23/24Order Info: 018- - CBCDOrder Info: [id number] - SED Performed By: #### L 501.6710, L101.9900, L100.0500 #### [facility] [address] [place], [address] Erythrocyte distribution width (RBC) [Ratio] 13.2 % Normal 11.6-14.6 [facility] Comment on above: Order Comment: CRP,C BC,SED(DUPLICATE TESTS FOR BOTH DRS.)OTHER TESTS-SMITHOrder Date: 05/23/24Order Info: [id number] - CBCDOrder Info: [id number] - SED Performed By: #### L 501.6710, L101.9900, L100.0500 #### [facility] [address] [place], [address] Hematocrit (Bld) [Volume fraction] 35.9 % Low 40-54 [facility] Comment on above: Order Comment: CRP,C BC,SED(DUPLICATE TESTS FOR BOTH DRS.)OTHER TESTS-SMITHOrder Date: 05/23/24Order Info: [id number] - CBCDOrder Info: [id number] - SED Performed By: #### L 501.6710, L101.9900, L100.0500 #### [facility] [address] [place], [address] Hemoglobin (Bld) [Mass/Vol] 12.4 g/dL Low 13.0-16.5 [facility] Comment on above: Order Comment: CRP,C BC,SED(DUPLICATE TESTS FOR BOTH DRS.)OTHER TESTS-SMITHOrder Date: 05/23/24Order Info: 183- - CBCDOrder Info: [id number] - SED Performed By: #### L 501.6710, L101.9900, L100.0500 #### [facility] [address] [place], [address] IG% 0.600 Normal 0.0-0.9 [facility] Comment on above: Order Comment: CRP,C BC,SED(DUPLICATE TESTS FOR BOTH DRS.)OTHER TESTS-SMITHOrder Date: 05/23/24Order Info: 183- - CBCDOrder Info: [id number] - SED Result Comment: IG% - Immature Granulocytes (promyelocytes, myelocytes and metamyelocytes) > 1% indicates that a LEFT SHIFT is Present. Performed By: #### L 501.6710, L101.9900, L100.0500 #### [facility] [address] [place], [address] Lymphocytes/100 WBC (Bld) 19.8 % Normal 19-41 [facility] Comment on above: Order Comment: CRP,C BC,SED(DUPLICATE TESTS FOR BOTH DRS.)OTHER TESTS-SMITHOrder Date: 05/23/24Order Info: 183-02 - CBCDOrder Info: [id number] - SED Performed By: #### L 501.6710, L101.9900, L100.0500 #### [facility] [address] [place], [address] MCH (RBC) [Entitic mass] 33.3 pg High 27.0-32.0 [facility] Comment on above: Order Comment: CRP,C BC,SED(DUPLICATE TESTS FOR BOTH DRS.)OTHER TESTS-SMITHOrder Date: 05/23/24Order Info: 183-02 - CBCDOrder Info: [id number] - SED Performed By: #### L 501.6710, L101.9900, L100.0500 #### [facility] [address] [place], [address] MCHC (RBC) [Mass/Vol] 34.5 g/dL Normal 32-36 [facility] Comment on above: Order Comment: CRP,C BC,SED(DUPLICATE TESTS FOR BOTH DRS.)OTHER TESTS-SMITHOrder Date: 05/23/24Order Info: 183-02 - CBCDOrder Info: [id number] - SED Performed By: #### L 501.6710, L101.9900, L100.0500 #### [facility] [address] [place], [address] MCV (RBC) [Entitic vol] 96.5 fL High 80-94 [facility] Comment on above: Order Comment: CRP,C BC,SED(DUPLICATE TESTS FOR BOTH DRS.)OTHER TESTS-SMITHOrder Date: 05/23/24Order Info: 183-02 - CBCDOrder Info: [id number] - SED Performed By: #### L 501.6710, L101.9900, L100.0500 #### [facility] [address] [place], [address] Monocytes/100 WBC (Bld) 10.3 % High 0-10 [facility] Comment on above: Order Comment: CRP,C BC,SED(DUPLICATE TESTS FOR BOTH DRS.)OTHER TESTS-SMITHOrder Date: 05/23/24Order Info: 183-02 - CBCDOrder Info: [id number] - SED Performed By: #### L 501.6710, L101.9900, L100.0500 #### [facility] [address] [place], [address] Neutrophils/100 WBC (Bld) 64.7 % Normal 47-70 [facility] Comment on above: Order Comment: CRP,C BC,SED(DUPLICATE TESTS FOR BOTH DRS.)OTHER TESTS-SMITHOrder Date: 05/23/24Order Info: 183-02 - CBCDOrder Info: [id number] - SED Performed By: #### L 501.6710, L101.9900, L100.0500 #### [facility] [address] [place], [address] Nucleated RBC (Bld) [#/Vol] 0 10*3/uL Normal 0-5 [facility] Comment on above: Order Comment: CRP,C BC,SED(DUPLICATE TESTS FOR BOTH DRS.)OTHER TESTS-SMITHOrder Date: 05/23/24Order Info: [id number] - CBCDOrder Info: [id number] - SED Performed By: #### L 501.6710, L101.9900, L100.0500 #### [facility] [address] [place], [address] Platelet mean volume (Bld) [Entitic vol] 10.4 fL Normal 6.2-12.0 [facility] Comment on above: Order Comment: CRP,C BC,SED(DUPLICATE TESTS FOR BOTH DRS.)OTHER TESTS-SMITHOrder Date: 05/23/24Order Info: 183-02 - CBCDOrder Info: [id number] - SED Performed By: #### L 501.6710, L101.9900, L100.0500 #### [facility] [address] [place], [address] Platelets (Bld) [#/Vol] 196 10*3/uL Normal 150-450 [facility] Comment on above: Order Comment: CRP,C BC,SED(DUPLICATE TESTS FOR BOTH DRS.)OTHER TESTS-SMITHOrder Date: 05/23/24Order Info: 183-02 - CBCDOrder Info: [id number] - SED Performed By: #### L 501.6710, L101.9900, L100.0500 #### [facility] [address] [place], [address] RBC (Bld) [#/Vol] 3.72 10*6/uL Low 4.6-6.2 [facility] Comment on above: Order Comment: CRP,C BC,SED(DUPLICATE TESTS FOR BOTH DRS.)OTHER TESTS-SMITHOrder Date: 05/23/24Order Info: [id number] - CBCDOrder Info: [id number] - SED Performed By: #### L 501.6710, L101.9900, L100.0500 #### [facility] [address] [place], [address] RDW SD 46.9 fl High 35.1-43.9 [facility] Comment on above: Order Comment: CRP,C BC,SED(DUPLICATE TESTS FOR BOTH DRS.)OTHER TESTS-SMITHOrder Date: 05/23/24Order Info: [id number] - CBCDOrder Info: [id number] - SED Performed By: #### L 501.6710, L101.9900, L100.0500 #### [facility] [address] [place], [address] WBC (Bld) [#/Vol] 5.2 10*3/uL Normal 4.4-11.0 [facility] Comment on above: Order Comment: CRP,C BC,SED(DUPLICATE TESTS FOR BOTH DRS.)OTHER TESTS-SMITHOrder Date: 05/23/24Order Info: [id number] - CBCDOrder Info: [id number] - SED Performed By: #### L 501.6710, L101.9900, L100.0500 #### [facility] [address] [place], [address] CRPon 05-23-2024 C-REACTIVE PROT < 3.00 Normal 0.0-3.0 [facility] Comment on above: Order Comment: CRP,C BC,SED(DUPLICATE TESTS FOR BOTH DRS.)OTHER TESTS-SMITHOrder Date: 05/23/24Order Info: [id number] - CMPOrder Info: [id number] - CRP Performed By: #### L 501.6710, L101.9900, L100.0500 #### [facility] [address] [place], [address] Carbon dioxide, total [Moles /volume] in Central venous bloodOrdered By: Ana Casiano on 05-23-2024 CO2 [Moles/Vol] 27.2 mmol/L 21.0-32.0 [facility] Chloride assayOrdered By: Jaswant Casiano on 05-23-2024 Chloride [Moles/Vol] 102 mmol/L 98-108 [facility] Comprehensive Metabolic Prof ilon 05-23-2024 Albumin [Mass/Vol] 4.1 g/dL Normal 3.4-4.8 [facility] Comment on above: Order Comment: CRP,C BC,SED(DUPLICATE TESTS FOR BOTH DRS.)OTHER TESTS-SMITHOrder Date: 05/23/24Order Info: 07 - CMPOrder Info: [id number] - CRP Performed By: #### L 501.6710, L101.9900, L100.0500 #### [facility] [address] [place], [address] Albumin/Globulin [Mass ratio] 1.9 {ratio} Normal 0.9-2.4 [facility] Comment on above: Order Comment: CRP,C BC,SED(DUPLICATE TESTS FOR BOTH DRS.)OTHER TESTS-SMITHOrder Date: 05/23/24Order Info: [id number] - CMPOrder Info: [id number] - CRP Performed By: #### L 501.6710, L101.9900, L100.0500 #### [facility] [address] [place], [address] ALK PHOS 59 U/L Normal 40-129 [facility] Comment on above: Order Comment: CRP,C BC,SED(DUPLICATE TESTS FOR BOTH DRS.)OTHER TESTS-SMITHOrder Date: 05/23/24Order Info: [id number] - CMPOrder Info: [id number] - CRP Performed By: #### L 501.6710, L101.9900, L100.0500 #### [facility] [address] [place], [address] ALT [Catalytic activity/Vol] 16 U/L Normal <=46 [facility] Comment on above: Order Comment: CRP,C BC,SED(DUPLICATE TESTS FOR BOTH DRS.)OTHER TESTS-SMITHOrder Date: 05/23/24Order Info: [id number] - CMPOrder Info: [id number] - CRP Performed By: #### L 501.6710, L101.9900, L100.0500 #### [facility] [address] [place], [address] AST [Catalytic activity/Vol] 22 U/L Normal <=37 [facility] Comment on above: Order Comment: CRP,C BC,SED(DUPLICATE TESTS FOR BOTH DRS.)OTHER TESTS-SMITHOrder Date: 05/23/24Order Info: 07 - CMPOrder Info: [id number] - CRP Performed By: #### L 501.6710, L101.9900, L100.0500 #### [facility] [address] [place], [address] Bilirubin [Mass/Vol] 0.65 mg/dL Normal 0.00-1.30 [facility] Comment on above: Order Comment: CRP,C BC,SED(DUPLICATE TESTS FOR BOTH DRS.)OTHER TESTS-SMITHOrder Date: 05/23/24Order Info: [id number] - CMPOrder Info: [id number] - CRP Performed By: #### L 501.6710, L101.9900, L100.0500 #### [facility] [address] [place], [address] BUN/CRE 19.6 RATIO Normal 10-20 [facility] Comment on above: Order Comment: CRP,C BC,SED(DUPLICATE TESTS FOR BOTH DRS.)OTHER TESTS-SMITHOrder Date: 05/23/24Order Info: [id number] - CMPOrder Info: [id number] - CRP Performed By: #### L 501.6710, L101.9900, L100.0500 #### [facility] [address] [place], [address] Calcium [Mass/Vol] 9.1 mg/dL Normal 7.6-11.0 [facility] Comment on above: Order Comment: CRP,C BC,SED(DUPLICATE TESTS FOR BOTH DRS.)OTHER TESTS-SMITHOrder Date: 05/23/24Order Info: 07 - CMPOrder Info: [id number] - CRP Performed By: #### L 501.6710, L101.9900, L100.0500 #### [facility] [address] [place], [address] Chloride [Moles/Vol] 102 mmol/L Normal 98-108 [facility] Comment on above: Order Comment: CRP,C BC,SED(DUPLICATE TESTS FOR BOTH DRS.)OTHER TESTS-SMITHOrder Date: 05/23/24Order Info: [id number] - CMPOrder Info: [id number] - CRP Performed By: #### L 501.6710, L101.9900, L100.0500 #### [facility] [address] [place], [address] CO2 [Moles/Vol] 27.2 mmol/L Normal 21.0-32.0 [facility] Comment on above: Order Comment: CRP,C BC,SED(DUPLICATE TESTS FOR BOTH DRS.)OTHER TESTS-SMITHOrder Date: 05/23/24Order Info: [id number] - CMPOrder Info: [id number] - CRP Performed By: #### L 501.6710, L101.9900, L100.0500 #### [facility] [address] [place], [address] Creatinine [Mass/Vol] 1.14 mg/dL Normal 0.70-1.20 [facility] Comment on above: Order Comment: CRP,C BC,SED(DUPLICATE TESTS FOR BOTH DRS.)OTHER TESTS-SMITHOrder Date: 05/23/24Order Info: [id number] - CMPOrder Info: [id number] - CRP Performed By: #### L 501.6710, L101.9900, L100.0500 #### [facility] [address] [place], [address] GAP 11 Normal 5-15 [facility] Comment on above: Order Comment: CRP,C BC,SED(DUPLICATE TESTS FOR BOTH DRS.)OTHER TESTS-SMITHOrder Date: 04/14/25Order Info: [id number] - CMPOrder Info: [id number] - CRP Performed By: #### L 501.6710, L101.9900, L100.0500 #### [facility] [address] [place], [address] GFR/1.73 sq M.predicted among non-blacks MDRD (S/P/Bld) [Vol rate/Area] 68 mL/min/{1.73_m2} Normal >60 [facility] Comment on above: Order Comment: CRP,C BC,SED(DUPLICATE TESTS FOR BOTH DRS.)OTHER TESTS-SMITHOrder Date: 05/23/24Order Info: [id number] - CMPOrder Info: [id number] - CRP Result Comment: mL/m in/1.73m2 CKD-EPI Creatinine Equation (2020) Performed By: #### L 501.6710, L101.9900, L100.0500 #### [facility] [address] [place], [address] Globulin (S) [Mass/Vol] 2.1 g/dL Low 2.2-4.2 [facility] Comment on above: Order Comment: CRP,C BC,SED(DUPLICATE TESTS FOR BOTH DRS.)OTHER TESTS-SMITHOrder Date: 05/23/24Order Info: [id number] - CMPOrder Info: [id number] - CRP Performed By: #### L 501.6710, L101.9900, L100.0500 #### [facility] [address] [place], [address] Glucose [Mass/Vol] 109 mg/dL High 70-99 [facility] Comment on above: Order Comment: CRP,C BC,SED(DUPLICATE TESTS FOR BOTH DRS.)OTHER TESTS-SMITHOrder Date: 05/23/24Order Info: 07 - CMPOrder Info: [id number] - CRP Performed By: #### L 501.6710, L101.9900, L100.0500 #### [facility] [address] [place], [address] Potassium [Moles/Vol] 3.8 mmol/L Normal 3.3-5.1 [facility] Comment on above: Order Comment: CRP,C BC,SED(DUPLICATE TESTS FOR BOTH DRS.)OTHER TESTS-SMITHOrder Date: 05/23/24Order Info: [id number] - CMPOrder Info: [id number] - CRP Performed By: #### L 501.6710, L101.9900, L100.0500 #### [facility] [address] [place], [address] Sodium [Moles/Vol] 140 mmol/L Normal 133-145 [facility] Comment on above: Order Comment: CRP,C BC,SED(DUPLICATE TESTS FOR BOTH DRS.)OTHER TESTS-SMITHOrder Date: 05/23/24Order Info: [id number] - CMPOrder Info: - CRP Performed By: #### L 501.6710, L101.9900, L100.0500 #### [facility] [address] [place], [address] T PROT 6.2 g/dL Normal 5.9-8.4 [facility] Comment on above: Order Comment: CRP,C BC,SED(DUPLICATE TESTS FOR BOTH DRS.)OTHER TESTS-SMITHOrder Date: 05/23/24Order Info: [id number] - CMPOrder Info: [id number] - CRP Performed By: #### L 501.6710, L101.9900, L100.0500 #### [facility] [address] [place], [address] Urea nitrogen [Mass/Vol] 22 mg/dL High 4-19 [facility] Comment on above: Order Comment: CRP,C BC,SED(DUPLICATE TESTS FOR BOTH DRS.)OTHER TESTS-SMITHOrder Date: 05/23/24Order Info: [id number] - CMPOrder Info: [id number] - CRP Performed By: #### L 501.6710, L101.9900, L100.0500 #### [facility] [address] [place], [place], [address] Eosinophil percentageOrdered By: Ana Casiano on 05-23-2024 Eosinophils/100 WBC (Bld) 4.0 % 0-5 [facility] Erythrocyte Sed Rateon 05-23 SED RATE 1 mm/hr Normal 0-20 [facility] Comment on above: Order Comment: CRP,C BC,SED(DUPLICATE TESTS FOR BOTH DRS.)OTHER TESTS-SMITHOrder Date: 05/23/24Order Info: [id number] - CBCDOrder Info: [id number] - SED Performed By: #### L 501.6710, L101.9900, L100.0500 #### [facility] [address] [place], [place], [address] Erythrocyte distribution wid th ratioOrdered By: Ana Casiano on 05-23-2024 Erythrocyte distribution width (RBC) [Ratio] 13.2 % 11.6-14.6 [facility] Erythrocyte distribution wid th standard deviationOrdered By: Ana Casiano on 05-23-2024 Erythrocyte distribution width (RBC) [Ratio] 46.9 fl High 35.1-43.9 [facility] Erythrocyte sedimentation ra teOrdered By: Ana Casiano on 05-23-2024 ESR (Bld) [Velocity] 1 mm/h 0-20 [facility] Glomerular filtration rate ( GFR) estimation/1.73 sq m using serum, plasma, or whole bOrdered By: Ana Casiano on 05-23-2024 GFR/1.73 sq M.predicted among non-blacks MDRD (S/P/Bld) [Vol rate/Area] 68 mL/min/{1.73_m2} >60 [facility] Comment on above: mL/min/1.73m2 CKD-EP I Creatinine Equation (2020) Hematocrit Auto (Bld) [Volum e fraction]Ordered By: Ana Casiano on 05-23-2024 Hematocrit (Bld) [Volume fraction] 35.9 % Low 40-54 [facility] Hemoglobin measurementOrdere d By: Ana Casiano on 05-23-2024 Hemoglobin (Bld) [Mass/Vol] 12.4 g/dL Low 13.0-16.5 [facility] Immature granulocytes/100 WB C Auto (Bld)Ordered By: Ana Casiano on 05-23-2024 Immature granulocytes/100 WBC (Bld) 0.600 % 0.0-0.9 [facility] Comment on above: IG% - Immature Granu locytes (promyelocytes, myelocytes and metamyelocytes) > 1% indicates that a LEFT SHIFT is Present. Laboratory - Chemistry and C hemistry - challengeOrdered By: Ana Casiaon on 05-23-2024 AST [Catalytic activity/Vol] 22 U/L <38 [facility] MCV (mean corpuscular volume ) determinationOrdered By: Ana Casiano on 05-23-2024 MCV (RBC) [Entitic vol] 96.5 fL High 80-94 [facility] Mean corpuscular hemoglobin (MCH) determinationOrdered By: Ana Casiano on 05-23-2024 MCH (RBC) [Entitic mass] 33.3 pg High 27.0-32.0 [facility] Mean corpuscular hemoglobin concentration (MCHC) determinationOrdered By: Ana Casiano on 05-23-2024 MCHC (RBC) [Mass/Vol] 34.5 g/dL 32-36 [facility] Mean platelet volume determi nationOrdered By: Ana Casiano on 05-23-2024 Platelet mean volume (Bld) [Entitic vol] 10.4 fL 6.2-12.0 [facility] Monocyte percentageOrdered B y: Ana Casiano on 05-23-2024 Monocytes/100 WBC (Bld) 10.3 % High 0-10 [facility] Neutrophil percentageOrdered By: Ana Casiano on 05-23-2024 Neutrophils/100 WBC (Bld) 64.7 % 47-70 [facility] Nucleated red blood cell per centageOrdered By: Ana Casiano on 05-23-2024 Nucleated RBC/100 WBC (Bld) [Ratio] 0 % 0-5 [facility] Platelet countOrdered By: Jaswant Casiano on 05-23-2024 Platelets (Bld) [#/Vol] 196 10*3/uL 150-450 [facility] Potassium measurement (mass/ volume)Ordered By: Ana Casiano on 05-23-2024 Potassium (Unsp spec) [Mass/Vol] 3.8 mmol/L 3.3-5.1 [facility] RBC Auto (Bld) [#/Vol]Ordere d By: Ana Casiano on 05-23-2024 RBC (Bld) [#/Vol] 3.72 10*6/uL Low 4.6-6.2 [facility] Serum creatinine measurement (mass/volume)Ordered By: Ana Casiano on 05-23-2024 Creatinine [Mass/Vol] 1.14 mg/dL 0.70-1.20 [facility] Serum globulin measurementOr dered By: Ana Casiano on 05-23-2024 Globulin (S) [Mass/Vol] 2.1 g/dL Low 2.2-4.2 [facility] Serum glucose measurement (m ass/volume)Ordered By: Ana Casiano on 05-23-2024 Glucose [Mass/Vol] 109 mg/dL High 70-99 [facility] Serum or plasma C reactive p rotein measurement (mass/volume)Ordered By: Ana Casiano on 05-23-2024 CRP [Mass/Vol] mg/L 0.0-3.0 [facility] Serum or plasma alanine malcolm otransferase (ALT) measurementOrdered By: Ana Casiano 05-23-2024 ALT [Catalytic activity/Vol] 16 U/L <47 [facility] Serum or plasma albumin remington urement (mass/volume)Ordered By: Ana Casiano on 05-23-2024 Albumin [Mass/Vol] 4.1 g/dL 3.4-4.8 [facility] Serum or plasma albumin/glob ulin mass ratioOrdered By: Ana Casiano on 05-23-2024 Albumin/Globulin [Mass ratio] 1.9 {ratio} 0.9-2.4 [facility] Serum or plasma alkaline milagros sphatase measurementOrdered By: Ana Casiano 05-23-2024 ALP [Catalytic activity/Vol] 59 U/L 40-129 [facility] Serum or plasma calcium remington urement (mass/volume)Ordered By: Ana Casiano on 05-23-2024 Calcium [Mass/Vol] 9.1 mg/dL 7.6-11.0 [facility] Serum or plasma urea nitroge n measurement (mass/volume)Ordered By: Ana Casiano on 05-23-2024 Urea nitrogen [Mass/Vol] 22 mg/dL High 4-19 [facility] Sodium levelOrdered By: Ana Casiano on 05-23-2024 Sodium [Moles/Vol] 140 mmol/L 133-145 [facility] Total proteinOrdered By: Danisha Casiano on 05-23-2024 Protein [Mass/Vol] 6.2 g/dL 5.9-8.4 [facility] Vitamin D,25 Hydroxyon 05-23 Vitamin D 25-OH 33.2 ng/mL Normal 30-100 [facility] Comment on above: Order Comment: CRP,C BC,SED(DUPLICATE TESTS FOR BOTH DRSAndriy) OTHER TESTS-OH Order Date: 05/23/24 Order Info: [id number] - CMP Order Info: [id number] - CRP Result Comment: Cathryn min D Status Deficiency: <20 ng/mL (50nmol/L) Insufficiency: 20-30 ng/mL (50-75 nmol/L) Sufficiency: 30-100 ng/mL (75-250 nmol/L) Toxicity: >100 ng/mL (>250 nmol/L) Performed By: #### L 506.1001 #### [facility] Laboratory [facility] [place], [address] White blood cell (WBC) count Ordered By: Ana Casiano on 05-23-2024 WBC (Bld) [#/Vol] 5.2 10*3/uL 4.4-11.0 [facility] [id number] 04-01-2024 [id number] HNO ID: [id number] Author: MARIYA CHAVEZ, AILIN Service: ? Author Type: Registered Nurse Type: [id number] Filed: 04/01/2024 12:51 Note Text: The patient received a copy of Colonoscopy discharge instructions that contain information for how to contact the physician who performed the procedure and when to seek medical care. Normal [facility] Colonoscopyon 04-01-2024 Colonoscopy [facility] Gastrointestinal Endoscopy Patient Name: Maria Luz Santana Procedure Date: 04/01/2024 11:58 AM Date of : 1950 Admit Type: Outpatient Age: 73 Gender: Male Note Status: Finalized Procedure: Colonoscopy Indications: Positive Cologuard test Providers: Dominic Gonzalez MD Patient Profile: This is a 73 year old male. Refer to note in patient chart for documentation of history and physical. Last Colonoscopy: 2014. Referring Physician: Connie Ambrsoe (Referring MD) Medicines: Fentanyl 100 micrograms IV, [...] one hemostatic clip was successfully placed. Clip manager life: [employer]. There was no bleeding at the end of the procedure. Non-bleeding internal hemorrhoids were found during retroflexion. The hemorrhoids were mild and small. The terminal ileum appeared normal. The exam was otherwise without abnormality. Impression: - One small (4-6 mm) polyp in the rectum, removed with a cold snare. Resected and retrieved. Clip was placed. Clip manager life: [employer]. - Non-bleeding internal hemorrhoids. - The examined [...] be scheduled. Procedure Code(s): --- Professional --- 39770, Colonoscopy, flexible; with removal of tumor(s), polyp(s), or other lesion(s) by snare technique G0500, Moderate sedation services provided by the same physician or other qualified health manager intensive care performing a gastrointestinal endoscopic service that sedation supports, requiring the presence of an independent trained observer to assist in the monitoring of the patient's level of consciousness and physiological status; initial 15 minutes of intra-service time; patient age 5 years or older (additional time may be reported with 99761, as appropriate) 70248, Moderate sedation; each additional 15 minutes intraservice time Diagnosis Code(s): --- Professional --- D12.8, Benign neoplasm of rectum K64.8, Other hemorrhoids R19.5, Other fecal abnormalities CPT copyright 2020 [employer]. All rights reserved. The codes documented in this report are preliminary and upon marketing budget analyst review may be revised to meet current compliance requirements. Attending Participation: I personally performed the entire procedure. Scope In: 12:05:10 PM Scope Out: 12:25:56 PM MD Dominic Barney MD 04/01/2024 12:29:41 PM (more content not included)... Normal [facility] Flexible sigmoidoscopy study on 04-01-2024 [facility] Gastrointestinal Endoscopy Patient Name: Maria Luz Santana Procedure Date: 04/01/2024 11:58 AM Date of : 1950 Admit Type: Outpatient Age: 73 Gender: Male Note Status: Finalized Procedure: Colonoscopy Indications: Positive Cologuard test Providers: Dmoinic Gonzalez MD Patient Profile: This is a [...] one hemostatic clip was successfully placed. Clip manager life: [employer]. There was no bleeding at the end of the procedure. Non-bleeding internal hemorrhoids were found during retroflexion. The hemorrhoids were mild and small. The terminal ileum appeared normal. The exam was otherwise without abnormality. Impression: - One small (4-6 mm) polyp in the rectum, removed with a cold snare. Resected and retrieved. Clip was placed. Clip manager life: [employer]. - Non-bleeding internal hemorrhoids. - The examined [...] be scheduled. Procedure Code(s): --- Professional --- 61316, Colonoscopy, flexible; wit (more content not included)... [facility] Radiology Study observation (narrative) [facility] HISTORY PHYSICALon HISTORY PHYSICAL HNO ID: [id number] Author: DOMINIC GONZALEZ MD Service: General Surgery Author Type: Physician Type: H&P Filed: 04/01/2024 11:53 Note Text: HISTORY AND PHYSICAL Maria Luz Santana II : 1950 REFERRING PHYSICIAN: Ana Casiano (Jaspal) [address] [facility] [address] [phone] CHIEF COMPLAINT: Patient presents with: Consult: Positive [...] 3 days ago. Maria Luz follows with [facility] for hx of SVT. Last OV 01/02- no changes made. Denies CP, SOB, dizziness, palpitations, syncope, edema, recent hospitalizations Hx of STEPHANY c/w BiPAP Maria Luz has a hx of Anthony's esophagus which is managed by Dr. Miranda. He has hx of Toupet fundoplication. No longer taking PPIs. Last EGD 09/2023. Maria Luz has undergone prior endoscopy. Last EGD at [facility] with MAC. Impression: - Anthony's esophagus [...] Stroke Mother Coronary Artery Disease Father 60 [place] x 3 Blood Disease Father Heart Father Lymphoma Father Diabetes Maternal Grandmother SOCIAL HISTORY Social History Tobacco Use Smoking status: Never Smokeless tobacco: Never Vaping Use Vaping status: Never Used Substance Use Topics Alcohol use: Yes Comment: [id number]-1-9 times monthly Drug use: No REVIEW OF SYMPTOMS: REVIEW OF SYSTEMS: General: The patient denies fatigue, denies weight loss, denies weight gain, denies feeling hot, and feelings of cold. Eyes: The patient denies glaucoma, denies eye in (more content not included)... Normal [facility] Pathology biopsy report Hieu (Tiss)on 04-01-2024 CASE REPORT Normal [facility] Comment on above: Order Comment: Speci men Type: TISSUE SPECIMEN Ordering Facility: [facility] Address: [address] [place] [address] Result Comment: Surg [facility] Pathology Report Case: [id number] Authorizing Provider: Dominic Gonzalez MD Collected: 04/01/2024 12:22 PM Ordering Location: Ambulatory Surgery Received: 04/01/2024 01:10 PM Pathologist: Davi Mary MD Specimen: Rectum, Polyp Performed By: #### 6 6121-5 #### [facility] CLIA [id number] [address] [place] [address] OF [facility] FINAL DIAGNOSIS Normal [facility] Comment on above: Order Comment: Speci men Type: TISSUE SPECIMEN Ordering Facility: [facility] Address: [address] [place] [address] Result Comment: A. R ectum, polypectomy: -Fragments of tubular adenoma at 1344 EST Performed By: #### 6 6121-5 #### [facility] CLIA [id number] [address] [place] [address] [place] FINAL PERFORMING LAB Normal [facility] Comment on above: Order Comment: Speci men Type: TISSUE SPECIMEN Ordering Facility: [facility] Address: [address] [place] [address] Result Comment: Diag nostic interpretation performed at: [facility], [address] [place] [address] CLIA# [id number] Smt Operator: Saravanan Luis MD Performed By: #### 6 6121-5 #### [facility] CLIA [id number] [address] [place] [address] [place] GROSS DESCRIPTION Normal [facility] Comment on above: Order Comment: Speci men Type: TISSUE SPECIMEN Ordering Facility: [facility] Address: [address] [place] [address] Result Comment: A. R ectum, Polyp Received [...] 2024 12:03 AM Gross examination performed at [facility], [address] [place] [address] Performed By: #### 6 6121-5 #### [facility] CLIA [id number] [address] [id number] [facility] CNOVon 03-25-2024 CNOV Office Visit (GENSWS ) VICKI,MARIA LUZ Simmons II ([id number]) 1950 M Date Time Provider Department 03/25/24 1:00 PM CONNIE AMBROSE During your visit today, we recorded the following information about you: Pulse Blood pressure Weight Height 58/minute 111/72 91.2 kg 1.778 m Connie Ambrose APRN.INDUSTRIAL ILLUMINATING ENGINEER 03/25/2024 1:18 PM Signed HISTORY AND PHYSICAL Maria Luz Santana TL : 1950 REFERRING PHYSICIAN: Ana Casiano (Jaspal) [address] [place] [address] [phone] CHIEF COMPLAINT: Patient presents with: Consult: Positive [...] 3 days ago. Maria Luz follows with [facility] for hx of SVT. Last OV 01/02- no changes made. Denies CP, SOB, dizziness, palpitations, syncope, edema, recent hospitalizations Hx of STEPHANY c/w BiPAP Maria Luz has a hx of Anthony's esophagus which is managed by Dr. Miranda. He has hx of Toupet fundoplication. No longer taking PPIs. Last EGD 09/2023. Maria Luz has undergone prior endoscopy. Last EGD at [facility] with MAC. Impression: - Anthony's esophagus [...] Stroke Mother Coronary Artery Disease Father 60 [place] x 3 Blood Disease Father Heart Father Lymphoma Father Diabetes Maternal Grandmother Social History Tobacco Use Smoking status: Never Smokeless tobacco: Never Vaping Use Vaping status: Never Used Substance Use Topics Alcohol use: Yes Comment: [id number]-5-9 times monthly Drug use: No REVIEW OF SYMPTOMS: REVIEW OF SYSTEMS: G (more content not included)... Normal [facility] CNPNon 03-25-2024 CNPN Telephone ([facility]) MARIA LUZ SANTANA II ([id number]) 1950 Date Time Provider Department 03/25/24 CONNIE AMBROSE [employer] During your visit today, we recorded the following information about you: Marina Pleitez 03/25/2024 2:11 PM Signed 04-01-2024 Colonoscopy [facility] provider went over all prep information and [...] Date Reviewed: 03/25/2024 Reviewed by: Connie Ambrose APRN.INDUSTRIAL ILLUMINATING ENGINEER - Fully Assessed Reason for Visit: 04-01-2024 [...] Status:Closed by MARINA PLEITEZ on 05/04/24 Normal [facility] CBC-Complete Blood Cnt No Di ffon 03-04-2024 Erythrocyte distribution width (RBC) [Ratio] 13.6 % Normal 11.6-14.6 [facility] Comment on above: Performed By: #### L 501.6710, L101.9900, L100.0500 #### [facility] [address] [place], [address] Hematocrit (Bld) [Volume fraction] 37.2 % Low 40-54 [facility] Comment on above: Performed By: #### L 501.6710, L101.9900, L100.0500 #### [facility] [address] [place], [address] Hemoglobin (Bld) [Mass/Vol] 12.5 g/dL Low 13.0-16.5 [facility] Comment on above: Performed By: #### L 501.6710, L101.9900, L100.0500 #### [facility] [address] [place], [address] MCH (RBC) [Entitic mass] 31.5 pg Normal 27.0-32.0 [facility] Comment on above: Performed By: #### L 501.6710, L101.9900, L100.0500 #### [facility] [address] [place], [address] MCHC (RBC) [Mass/Vol] 33.6 g/dL Normal 32-36 [facility] Comment on above: Performed By: #### L 501.6710, L101.9900, L100.0500 #### [facility] [address] [place], [address] MCV (RBC) [Entitic vol] 93.7 fL Normal 80-94 [facility] Comment on above: Performed By: #### L 501.6710, L101.9900, L100.0500 #### [facility] [address] [place], [address] Platelet mean volume (Bld) [Entitic vol] 9.6 fL Normal 6.2-12.0 [facility] Comment on above: Performed By: #### L 501.6710, L101.9900, L100.0500 #### [facility] [address] [place], [address] Platelets (Bld) [#/Vol] 181 10*3/uL Normal 150-450 [facility] Comment on above: Performed By: #### L 501.6710, L101.9900, L100.0500 #### [facility] [address] [place], [address] RBC (Bld) [#/Vol] 3.97 10*6/uL Low 4.6-6.2 [facility] Comment on above: Performed By: #### L 501.6710, L101.9900, L100.0500 #### [facility] [address] [place], [address] RDW SD 46.8 fl High 35.1-43.9 [facility] Comment on above: Performed By: #### L 501.6710, L101.9900, L100.0500 #### [facility] [address] [place], [address] WBC (Bld) [#/Vol] 5.1 10*3/uL Normal 4.4-11.0 [facility] Comment on above: Performed By: #### L 501.6710, L101.9900, L100.0500 #### [facility] [address] [place], [address] CRPon 03-04-2024 C-REACTIVE PROT < 2.90 Normal 0.0-3.0 [facility] Comment on above: Result Comment: C-Re active Protein (CRP) provides useful information for the diagnosis, therapy and monitoring of inflammatory processes and associated diseases. For the evaluation of Relative Risk for Cardiovascular Disease, a High Sensitivity CRP (HSCRP) should be ordered. Performed By: #### L 501.6710, L101.9900, L100.0500 #### [facility] [address] [place], [address] Erythrocyte Sed Rateon 03-04 SED RATE < 1 Normal 0-20 [facility] Comment on above: Performed By: #### L 501.6710, L101.9900, L100.0500 #### [facility] [address] [place], [address] Erythrocyte distribution wid th ratioOrdered By: Clifford Delgado on 03-04-2024 Erythrocyte distribution width (RBC) [Ratio] 13.6 % 11.6-14.6 [facility] Erythrocyte distribution wid th standard deviationOrdered By: Clifford Delgado on 03-04-2024 Erythrocyte distribution width (RBC) [Ratio] 46.8 fl High 35.1-43.9 [facility] Erythrocyte sedimentation ra teOrdered By: Clifford Delgado on 03-04-2024 ESR (Bld) [Velocity] mm/h 0-20 [facility] Hematocrit Auto (Bld) [Volum e fraction]Ordered By: Clifford Delgado on 03-04-2024 Hematocrit (Bld) [Volume fraction] 37.2 % Low 40-54 [facility] Hemoglobin measurementOrdere d By: Clifford Delgado on 03-04-2024 Hemoglobin (Bld) [Mass/Vol] 12.5 g/dL Low 13.0-16.5 [facility] MCV (mean corpuscular volume ) determinationOrdered By: Clifford Delgado on 03-04-2024 MCV (RBC) [Entitic vol] 93.7 fL 80-94 [facility] Mean corpuscular hemoglobin (MCH) determinationOrdered By: Clifford Delgado on 03-04-2024 MCH (RBC) [Entitic mass] 31.5 pg 27.0-32.0 [facility] Mean corpuscular hemoglobin concentration (MCHC) determinationOrdered By: Venetaoniel Delgado on 03-04-2024 MCHC (RBC) [Mass/Vol] 33.6 g/dL 32-36 [facility] Mean platelet volume determi nationOrdered By: Clifford Danny on 03-04-2024 Platelet mean volume (Bld) [Entitic vol] 9.6 fL 6.2-12.0 [facility] Platelet countOrdered By: Aneta Delgado on 03-04-2024 Platelets (Bld) [#/Vol] 181 10*3/uL 150-450 [facility] RBC Auto (Bld) [#/Vol]Ordere d By: Clifford Danny on 03-04-2024 RBC (Bld) [#/Vol] 3.97 10*6/uL Low 4.6-6.2 [facility] White blood cell (WBC) count Ordered By: Clifford Danny on 03-04-2024 WBC (Bld) [#/Vol] 5.1 10*3/uL 4.4-11.0 [facility] PT D/C Summary (1)on 025 PT D/C Summary (1) [facility] Physical Therapy Health[address] [place] [address] / REHABILITATION SERVICES DISCHARGE SUMMARY MR#: [id number] Acct: [id number] Name: MARIA LUZ SANTANA II Rep #: [id number] : 1950 73 From: Kathi Lux MPT Referring Dr.: Dr. Ana Casiano MD [...] please feel free to call me at [phone]. Thank you for the referral of this patient. Sincerely, Kathi Lux, MPT Balance/Gait/Functional tests Balance/Special Test Scores Lower Extremity Functional Score: 60 Improvement % Improvement: 100 02/29/24 0945 CC: Dr. Ana Casiano MD Signed Normal [facility] Inital Evaluation (1) - PTon 01-29-2024 Inital Evaluation (1) - PT [facility] Physical Therapy Health[address] [place] [address] / REHABILITATION SERVICES INITIAL EVALUATION MR#: [id number] Acct: [id number] Name: MARIA LUZ SANTANA II Rep #: [id number] : 1950 73 From: Kathi DUARTE Referring [...] to be FAXED BACK to us at [phone] for Medicare purposes. For Medicare only, by signing this I certify the plan of care. Please let me know if there are questions or concerns regarding this plan of care. Physician Signature: Date: 01/29/24 1352 CC: Dr. Ana Casiano MD Signed Normal [facility] HIP, UNI W/ Pelvis 2-3 Views on 01-25-2024 HIP, UNI W/ Pelvis 2-3 Views [facility] Imaging Services [address] [place], [place] [address] HIP, UNI W/ Pelvis 2-3 Views MR#: [id number] Acct: [id number] Name: MARIA LUZ SANTANA II Rep #: [id number] : 1950 M 73 From: Tirso Cruz MD PCP: Dr. Ana Casiano MD Status: REG CLI Study: HIP, UNI W/ Pelvis 2-3 Views Date of Exam: Exam# [id number] Ordering Dr: [place] [id number] STUDY: X-RAY - PELVIS AND LEFT HIP [...] EST , CC: Dr. Ana Casiano MD Hardware Designer: Signed Normal [facility] Basic Metabolic Profile (BMP )on 01-14-2024 BUN/CRE 14.0 RATIO Normal 10-20 [facility] Comment on above: Order Comment: 'TROP ' Serial specimen #1, #2 or #3: 1 Performed By: #### L 501.6710, L101.9900, L100.0500 #### [facility] [address] [place], [address] CA,Total 9.4 mg/dL Normal 8.5-10.1 [facility] Comment on above: Order Comment: 'TROP ' Serial specimen #1, #2 or #3: 1 Performed By: #### L 501.6710, L101.9900, L100.0500 #### [facility] [address] [place], [address] Chloride [Moles/Vol] 108 mmol/L High 98-107 [facility] Comment on above: Order Comment: 'TROP ' Serial specimen #1, #2 or #3: 1 Performed By: #### L 501.6710, L101.9900, L100.0500 #### [facility] [address] [place], [address] CO2 [Moles/Vol] 27.0 mmol/L Normal 21.0-32.0 [facility] Comment on above: Order Comment: 'TROP ' Serial specimen #1, #2 or #3: 1 Performed By: #### L 501.6710, L101.9900, L100.0500 #### [facility] [address] [place], [address] Creatinine [Mass/Vol] 1.07 mg/dL Normal 0.70-1.30 [facility] Comment on above: Order Comment: 'TROP ' Serial specimen #1, #2 or #3: 1 Result Comment: The validity of the calculated GFR GFRAA in patients over 70 years has not been determined. Clinical correlation is essential. Performed By: #### L 501.6710, L101.9900, L100.0500 #### [facility] [address] [place], [address] ECRCL 67.63 ml/min Normal [facility] Comment on above: Order Comment: 'TROP ' Serial specimen #1, #2 or #3: 1 Performed By: #### L 501.6710, L101.9900, L100.0500 #### [facility] [address] [place], [address] EST GFR - AA 87 mL/min Normal >60 [facility] Comment on above: Order Comment: 'TROP ' Serial specimen #1, #2 or #3: 1 Result Comment: Afri can [place] GFR Calc Performed By: #### L 501.6710, L101.9900, L100.0500 #### [facility] [address] [place], [address] GAP 6 Normal 5-15 [facility] Comment on above: Order Comment: 'TROP ' Serial specimen #1, #2 or #3: 1 Performed By: #### L 501.6710, L101.9900, L100.0500 #### [facility] [address] [place], [address] GFR/1.73 sq M.predicted among non-blacks MDRD (S/P/Bld) [Vol rate/Area] 72 mL/min/{1.73_m2} Normal >60 [facility] Comment on above: Order Comment: 'TROP ' Serial specimen #1, #2 or #3: 1 Result Comment: Non- GFR Calc Performed By: #### L 501.6710, L101.9900, L100.0500 #### [facility] [address] [place], [address] Glucose [Mass/Vol] 105 mg/dL Normal 74-106 [facility] Comment on above: Order Comment: 'TROP ' Serial specimen #1, #2 or #3: 1 Result Comment: Fast ing Glucose result from 100 to 125 mg/dL suggests IMPAIRED HOMEOSTASIS per A.D.A. criteria. Performed By: #### L 501.6710, L101.9900, L100.0500 #### [facility] [address] [place], [address] Potassium [Moles/Vol] 3.7 mmol/L Normal 3.5-5.1 [facility] Comment on above: Order Comment: 'TROP ' Serial specimen #1, #2 or #3: 1 Performed By: #### L 501.6710, L101.9900, L100.0500 #### [facility] [address] [place], [address] Sodium [Moles/Vol] 141 mmol/L Normal 136-145 [facility] Comment on above: Order Comment: 'TROP ' Serial specimen #1, #2 or #3: 1 Performed By: #### L 501.6710, L101.9900, L100.0500 #### [facility] [address] [place], [address] Urea nitrogen [Mass/Vol] 15 mg/dL Normal 7-18 [facility] Comment on above: Order Comment: 'TROP ' Serial specimen #1, #2 or #3: 1 Performed By: #### L 501.6710, L101.9900, L100.0500 #### [facility] [address] [place], [address] CBC W/Diff, Automatedon 12-0 Absolute Lymph 1.01 X10 3/uL Normal 0.83-4.51 [facility] Comment on above: Performed By: #### L 501.6710, L101.9900, L100.0500 #### [facility] [address] [place], [address] Absolute Neut 2.7 X10 3/uL Normal 2.0-7.7 [facility] Comment on above: Performed By: #### L 501.6710, L101.9900, L100.0500 #### [facility] [address] [place], [address] Basophils/100 WBC (Bld) 0.9 % Normal 0-1 [facility] Comment on above: Performed By: #### L 501.6710, L101.9900, L100.0500 #### [facility] [address] [place], [address] Eosinophils/100 WBC (Bld) 2.4 % Normal 0-5 [facility] Comment on above: Performed By: #### L 501.6710, L101.9900, L100.0500 #### [facility] [address] [place], [address] Erythrocyte distribution width (RBC) [Ratio] 14.0 % Normal 11.6-14.6 [facility] Comment on above: Performed By: #### L 501.6710, L101.9900, L100.0500 #### [facility] [address] [place], [address] Hematocrit (Bld) [Volume fraction] 41.3 % Normal 40-54 [facility] Comment on above: Performed By: #### L 501.6710, L101.9900, L100.0500 #### [facility] [address] [place], [address] Hemoglobin (Bld) [Mass/Vol] 14.2 g/dL Normal 13.0-16.5 [facility] Comment on above: Performed By: #### L 501.6710, L101.9900, L100.0500 #### [facility] [address] [place], [address] IG% 0.500 Normal 0.0-0.9 [facility] Comment on above: Result Comment: IG% - Immature Granulocytes (promyelocytes, myelocytes and metamyelocytes) > 1% indicates that a LEFT SHIFT is Present. Performed By: #### L 501.6710, L101.9900, L100.0500 #### [facility] [address] [place], [address] Lymphocytes/100 WBC (Bld) 23.8 % Normal 19-41 [facility] Comment on above: Performed By: #### L 501.6710, L101.9900, L100.0500 #### [facility] [address] [place], [address] MCH (RBC) [Entitic mass] 32.3 pg High 27.0-32.0 [facility] Comment on above: Performed By: #### L 501.6710, L101.9900, L100.0500 #### [facility] [address] [place], [address] MCHC (RBC) [Mass/Vol] 34.4 g/dL Normal 32-36 [facility] Comment on above: Performed By: #### L 501.6710, L101.9900, L100.0500 #### [facility] [address] [place], [address] MCV (RBC) [Entitic vol] 93.9 fL Normal 80-94 [facility] Comment on above: Performed By: #### L 501.6710, L101.9900, L100.0500 #### [facility] [address] [place], [address] Monocytes/100 WBC (Bld) 9.2 % Normal 0-10 [facility] Comment on above: Performed By: #### L 501.6710, L101.9900, L100.0500 #### [facility] [address] [place], [address] Neutrophils/100 WBC (Bld) 63.2 % Normal 47-70 [facility] Comment on above: Performed By: #### L 501.6710, L101.9900, L100.0500 #### [facility] [address] [place], [address] Nucleated RBC (Bld) [#/Vol] 0 10*3/uL Normal 0-5 [facility] Comment on above: Performed By: #### L 501.6710, L101.9900, L100.0500 #### [facility] [address] [place], [address] Platelet mean volume (Bld) [Entitic vol] 9.3 fL Normal 6.2-12.0 [facility] Comment on above: Performed By: #### L 501.6710, L101.9900, L100.0500 #### [facility] [address] [place], [address] Platelets (Bld) [#/Vol] 157 10*3/uL Normal 150-450 [facility] Comment on above: Performed By: #### L 501.6710, L101.9900, L100.0500 #### [facility] [address] [place], [address] RBC (Bld) [#/Vol] 4.40 10*6/uL Low 4.6-6.2 [facility] Comment on above: Performed By: #### L 501.6710, L101.9900, L100.0500 #### [facility] [address] [place], [address] RDW SD 48.1 fl High 35.1-43.9 [facility] Comment on above: Performed By: #### L 501.6710, L101.9900, L100.0500 #### [facility] [address] [place], [address] WBC (Bld) [#/Vol] 4.3 10*3/uL Low 4.4-11.0 [facility] Comment on above: Performed By: #### L 501.6710, L101.9900, L100.0500 #### [facility] [address] [place], [address] Chest PA and Lateralon 01-13 Chest PA and Lateral [facility] Imaging Services [address] [place] [address] Chest PA and Lateral MR#: [id number] Acct: [id number] Name: MARIA LUZ SANTANA II Rep #: [id number] : 1950 M 73 From: Everton Peters MD PCP: Dr. Ana Casiano MD Status: [facility] Study: Chest PA and Lateral Date of Exam: 01/14/24 Exam# [id number] Ordering Dr: [place] [id number] STUDY: X-RAY CHEST REASON FOR EXAM: Male, [...] Ana Casiano MD; Dr. Rell Valentine MD Hardware Designer: Signed Normal [facility] D-Dimer Quantitative (DVT/PE )on 01-14-2024 D-DIMER QUANT 0.32 FEU/ug/m Normal 0.27-0.49 [facility] Comment on above: Result Comment: NORM AL D-Dimer level (<0.50) indicates no DVT or PE. Performed By: #### L 501.6710, L101.9900, L100.0500 #### [facility] [address] [place], [address] Emergency Department Summary on 01-14-2024 Emergency Department Summary [facility] Medical Records Department [address] [place] [address] Emergency Department Summary 01/14/24 MR#: [id number] Acct: [id number] Name: MARIA LUZ SANTANA II Rep #: [id number] : 1950 73 From: Rell Valentine MD [...] pectoralis muscle that has been constant since 1599. Onset at rest. He does report increased pain with breathing. He also complains of discomfort proximal left arm. He does report shortness of breath. He states this has happened in the past and no etiology has been found. He had a long distance trip to [place] this past Thanksgiving. He denies leg pain, [...] similar symptoms: Yes Recent Illness/Hospitalization : [facility] Medical History Right foot strain Barretts esophagus [...] fever(s), subjec (more content not included)... Normal [facility] L501.4020on 01-14-2024 TROPONIN-I HS 5 pg/mL Normal 3.0-78.0 [facility] Comment on above: Order Comment: 'TROP ' Serial specimen #1, #2 or #3: 1 Result Comment: Plea se Note: New Test Units and Gender Specific Reference Ranges. For more information see Policy Stat Procedure [place] High Sensitivity Troponin (TNIH) and attachments. Performed By: #### L 501.6710, L101.9900, L100.0500 #### [facility] [address] [place], [address] PT D/C Summary (1)on 024 PT D/C Summary (1) [facility] [address] [place] [address]. [address] [place] [address] / REHABILITATION SERVICES DISCHARGE SUMMARY MR#: [id number] Acct: [id number] Name: MARIA LUZ SANTANA II Rep #: [id number] : 1950 73 From: Kathi DUARTE Referring [...] please feel free to call me at [phone]. Thank you for the referral of this patient. Sincerely, GERALD Erazo Balance/Gait/Functional tests Balance/Special Test Scores Oswestry Neck Score: 6 Improvement % Improvement: 80 01/11/24 1155 CC: Dr. Ana Casiano MD Signed Normal [facility] CNOVon 11-26-2023 [facility] Office Visit (AGGENS 4) MARIA LUZ SANTANA II ([id number]) 1950 M Date Time Provider Department 11/26/23 11:30 AM RUTH SULLIVAN AGGENS4 During your visit [...] Stroke Mother Coronary Artery Disease Father 60 [place] x 3 Blood Disease Father Heart Father SOCIAL HISTORY: Social History Tobacco Use Smoking status: Never Smokeless tobacco: Never Vaping Use Vaping status: Never Used Substance Use Topics Alcohol use: Yes Comment: kaqtujmxdg-0-8 times monthly Drug use: No MEDICATIONS: Current [...] Normal appeara (more content not included)... Normal [facility] Office Visit Reporton 2023 Office Visit Report [facility] [address] [place] [address] OFFICE VISIT Date of Service: 11/18/23 MR#: [id number] Acct: [id number] Patient: MARIA LUZ SANTANA II Rep #: [id number] : 1950 Provider: DEEP Díaz Age/Sex: 73/M [facility] Status: Signed Intake Vital Signs 10/29/23 22:35 [...] fallen in the past year?: No 12/04/23 0751 Date Ata Kirby Signature: Date (if applicable) CC: Normal [facility] Femur Min 2 Viewson 11-23-19 Femur Min 2 Views [facility] Imaging Services [address] [address] Femur Min 2 Views MR#: [id number] Acct: [id number] Name: MARIA LUZ SANTANA TL Rep #: [id number] : 1950 M 73 From: Rory Sandhu MD PCP: Dr. Ana Casiano MD Status: REG CLI Study: Femur Min 2 Views Date of Exam: 11/23/23 Exam# [id number] Ordering [place]: [place] [id number] INDICATION: distal L femur lesion/update on outside [...] EDT , CC: Dr. Ana Casiano MD Hardware Designer: Signed Normal [facility] Inital Evaluation (1) - PTon 11-23-2023 Inital Evaluation (1) - PT [facility] [address] [place] [address] / REHABILITATION SERVICES INITIAL EVALUATION MR#: [id number] Acct: [id number] Name: MARIA LUZ SANTANA II Rep #: [id number] : 1950 73 From: Kathi DUARTE Referring [...] to be FAXED BACK to us at [phone] for Medicare purposes. For Medicare only, by signing this I certify the plan of care. Please let me know if there are questions or concerns regarding this plan of care. Physician Signature: Date: 11/23/23 0959 CC: Dr. Ana Casiano MD D (more content not included)... Normal [facility] RF Gastrointestinal tract up per Views W barium contrast [place] 11-06-2023 IMPRESSION: No hiatal hernia. Hardware Designer: GLORIA Transcribe Date/Time: Nov 06 2023 1:05P Dictated by : ALBERTINA KOCH MD This examination was interpreted and the report reviewed and electronically signed by: ALBERTINA KOCH MD on Nov 06 2023 1:08PM EST [facility] * * *Final Report* * * DATE [...] visualized reflux. [facility] Provider, Mike Torres [facility] - 11/06/2023 * * *Final Report* [...] visualized reflux. IMPRESSION IMPRESSION: No hiatal hernia. [facility] Trans[facility] Date/Time: Nov 06 2023 1:05P Dictated by : ALBERTINA KOCH MD This examination was interpreted and the report reviewed and electronically signed by: ALBERTINA KOCH MD on Nov 06 2023 1:08PM EST [facility] Rad[facility]ative[facility] RF Gastrointestinal tract up per Views W barium contrast POOrdered By: [facility] Provider on 11-06-2023 [facility] XR UPPER GI SINGLE CONTRASTo n 11-06-2023 [...] No visualized reflux. IMPRESSION: No hiatal hernia. Hardware Designer: GLORIA Transcribe Date/Time: Nov 06 2023 1:05P Dictated by : ALBERTINA KOCH MD This examination was interpreted and the report reviewed and electronically signed by: ALBERTINA KOCH MD on Nov 06 2023 1:08PM EST [id number] Normal [facility] 09-29-2023 CNPN Telephone (AGGENS4) MARIA LUZ SANTANA II ([id number]) 1950 Date Time Provider Department 09/29/23 RUTH SULLIVAN AGGENS4 During your visit today, [...] Encounter Status:Closed by BHARATI ONEAL on 09/30/23 [facility] CNPN Telephone (AGGENS4) VICKIMARIA LUZ II ([id number]) 1950 M Date Time Provider Department 09/29/23 [...] Encounter Status:Closed by BHARATI ONEAL on 09/29/23 [facility] ANES POSTPROC EVALon 024 ANES POSTPROC EVAL HNO ID: [id number] Author: MANISHA CRUZ MD Service: Anesthesiology Author Type: Anesthesiologist Type: Anesthesia Postprocedure Evaluation Filed: 09/24/2023 15:37 Note Text: POST ANESTHESIA EVALUATION NOTE : 1950 Procedure Summary Date: 09/24/23 Room / Location: [facility] Anesthesia Start: 1336 Anesthesia Stop: 1346 Procedure: [...] September 24, 2023 TIME: 3:37 PM CSN: [id number] Normal [facility] ANES PRE-OPon 09-24-2023 ANES PRE-OP HNO ID: [id number] Author: MANISHA CRUZ MD Service: Anesthesiology Author Type: Anesthesiologist Type: Anesthesia Preprocedure Evaluation Filed: 09/24/2023 12:36 Note Text: ANESTHESIOLOGY DAY OF SURGERY NOTE : 1950 Procedure Information Date/Time: 09/24/23 1330 Scheduled providers: Ruth Sullivan MD Procedure: EGD DIAGNOSTIC Location: [facility] Estimated body mass index is 26.54 kg/m? as calculated from the following: Height as of 08/28/23: 177.8 cm (5' 10). Weight as of 08/28/23: 83.9 kg (185 [...] and consent discussed: yes. Patient / Responsible Democrat agrees to proceed: yes Patient / Surrogate [...] September 24, 2023 TIME: 12:25 PM CSN: [id number] Normal [facility] EGD Study observation Bria santamaria 09-24-2023 [facility] Gastrointestinal Endoscopy Patient Name: Maria Luz Santana Procedure Date: 09/24/2023 1:27 PM Date of : 1950 Admit Type: Outpatient Room: [place] [address] Gender: Male Note Status: Finalized Attending MD: Ruth Sullivan MD, [id number] Procedure: Upper GI endoscopy Indications: Dysphagia Providers: [...] antiplatelet agents. Procedure Code(s): --- Professional --- 32729, Esophagogastroduodenosc opy, flexible, transoral; with biopsy, single or multiple (more content not included)... PROVATION [facility] Radiology Study observation (narrative) [facility] HISTORY PHYSICALon HISTORY PHYSICAL HNO ID: [id number] Author: CIRO STEELE PA Service: ? Author Type: Physician Brush Trimming Machine Setter Type: H&P Filed: 09/24/2023 13:17 Note Text: Summary: PAT HISTORY AND PHYSICAL EXAMINATION SERVICE DATE: 09/24/2023 SERVICE TIME: 12:22 PM Diagnosis: Thrush of mouth and esophagus (HCC) (HCC) [B37.81, B37.0] Planned Procedure: EGD Planned Anesthetic: [facility] PH[facility]ICIAN: Ana Casiano MD REASON [...] Stroke Mother Coronary Artery Disease Father 60 [place] x 3 Blood Disease Father Heart Father SOCIAL HISTORY: Social History Tobacco Use Smoking status: Never Smokeless tobacco: Never Vaping Use Vaping Use: Never used Substance Use Topics Alcohol use: Yes Comment: khclxhqtod-1-4 times monthly Drug use: No Prior to [...] COPD an (more content not included)... Normal [facility] SURGICAL PATHOLOGYon [address] [facility] Comment on above: Order Comment: Speci men Type: TISSUE SPECIMEN Ordering Facility: [facility] Address: [address] [place] [address] Result Comment: Surg ica Pathology Report Case: [id number] Authorizing Provider: Ruth Sullivan MD Collected: 09/24/2023 01:42 PM Ordering Location: [facility] Received: 09/25/2023 08:42 AM Pathologist: Bharati Milligan MD Specimens: A) - Esophagus, Biopsy, random B) - Stomach, Biopsy, r/o h.pylori Performed By: #### S #### [facility] CLIA [id number] [address] DIAGNOSIS COMMENT Normal [facility] Comment on above: Order Comment: Speci men Type: TISSUE SPECIMEN Ordering Facility: [facility] Address: [address] [place] [address] Result Comment: If c linical concern for Helicobacter pylori persists, correlation with stool antigen studies or urea breath test may be useful. Dr. Analilia Farrell reviewed part A and agrees with the diagnosis. Laboratory Developed Test (LDT) Disclaimer: Performance characteristics of immunohistochemical, immunofluorescent and chromogenic in-situ hybridization tests have been determined by the performing laboratory within [facility]???s Maria Luz Zuri [facility] Pathology and Laboratory Medicine Department ([facility], [facility], [facility], [facility], [facility], [facility], or [facility]) in a manner consistent with CLIA requirements. One or more of these tests have not been cleared or approved by the FDA. [facility] is regulated under CLIA as qualified to perform high-complexity testing. These tests are used for clinical purposes. They should not be regarded as investigational or for research. Positive and negative controls stain appropriately. Performed By: #### S #### [facility] CLIA [id number] [address] FINAL DIAGNOSIS Normal [facility] Comment on above: Order Comment: Speci men Type: TISSUE SPECIMEN Ordering Facility: [facility] Address: [address] [place] [address] Result Comment: 8. E sophagus, random, biopsy: - Squamous epithelium with minimal chronic inflammation. Special stain for PAS/D negative for fungal elements. B. Stomach, biopsy: - Mild chronic gastritis. Immunohistochemical stain for Helicobacter is negative for Helicobacter pylori-like for microorganisms. Performed By: #### S #### [facility] CLIA [id number] [address] FINAL PERFORMING LAB Normal [facility] Comment on above: Order Comment: Speci men Type: TISSUE SPECIMEN Ordering Facility: [facility] Address: [address] [place] [address] Result Comment: Diag nostic interpretation performed at [facility], [address] [place] [address] CLIA# [id number] Smt Operator: Ana Gonzales M.D. Performed By: #### S #### [facility] CLIA [id number] [address] [place] [address] OF [facility] GROSS DESCRIPTION Normal [facility] Comment on above: Order Comment: Speci men Type: TISSUE SPECIMEN Ordering Facility: [facility] Address: [address] [place] [address] Result Comment: A. E sophagus, Biopsy Received in formalin labeled random esophagus biopsy are multiple white segments of tissue aggregating to 0.9 x 0.6 x 0.1 cm. The specimens are totally submitted in formalin in 1 cassette. B. Stomach, Biopsy Received in formalin labeled stomach biopsy is a sin segment of tissue measuring 0.6 x 0.3 x 0.2 cm. The specimen is totally submitted in formalin in 1 cassette. Gross examination performed at [facility], [address] [place] [address] KVB September 25, 2023 11:49 AM Performed By: #### S #### [facility] CLIA [id number] [address] [place] [address] [place] Upper GI endoscopy 08-15-2 024 Upper GI endoscopy [facility] Gastrointestinal Endoscopy Patient Name: Maria Luz Santana Procedure Date: 09/24/2023 1:27 PM Date of : 1950 Admit Type: Outpatient Room: [place] [address] Gender: Male Note Status: Finalized Attending MD: Ruth Sullivan MD, [id number] Procedure: Upper GI endoscopy Indications: Dysphagia Providers: [...] antiplatelet agents. Procedure Code(s): --- Professional --- 21988, Esophagogastroduodenosc opy, flexible, transoral; with biopsy, single or multiple --- Technical --- 79547, Esophagogastroduodenosc opy, flexible, transoral; with biopsy, single or multiple Diagnosis Code(s): --- Professional --- K22.70, Anthony's esophagus without dysplasia K44.9, Diaphragmatic hernia without obstruction or gangrene Z98.890, Other specified postprocedural states R13.10, Dysphagia, unspecified --- Technical --- K22.70, Anthony's esophagus without dysplasia K44.9, Diaphragmatic hernia without obstruction or gangrene Z98.890, Other specified postprocedural states R13.10, Dysphagia, unspecified CPT copyright 2020 [employer]. All rights reserved. The codes documented in this report are preliminary and upon marketing budget analyst review may be revised to meet current compliance requirements. Attending Participation: I personally performed the entire procedure. Scope In: 1:39:28 PM Scope Out: 1:45:33 PM MD Ruth Sow MD 09/24/2023 1:53:57 PM This report has been signed electronically by Ruth Sullivan MD Number of Addenda: 0 Note Initiated On: 09/24/2023 1:[address] [facility] 09-07-2023 [facility] Telephone (AGGENS4) MARIA LUZ SANTANA II ([id number]) 1950 M Date Time Provider Department 09/07/23 [...] Encounter Status:Closed by BHARATI ONEAL on 09/07/23 [facility] CNPNon 09-01-2023 CNPN Telephone (AGGENS4) MARIA LUZ SANTANA II ([id number]) 1950 M Date Time Provider Department 09/01/23 RUTH SULLIVAN AGGENS4 During your visit today, we recorded the following information about you: Ryland Wallsen 09/01/2023 1:00 PM Signed LVM for patient to scheduled follow up appointment for EGD - requested patient call back to schedule appointment. Mixx message sent to patient. Allergies As of [...] Encounter Status:Closed by ZARI WALLS on 09/01/23 [facility] Amy 08-31-2023 [facility] Telephone (AGGENS4) MARIA LUZ SANTANA II ([id number]) 1950 M Date Time Provider Department 08/31/23 RUTH SULLIVAN AGGENS4 During your visit today, [...] Encounter Status:Closed by ZARI WALLS on 08/31/23 [facility] CNPN Telephone (AGGENS4) MARIA LUZ SANTANA II ([id number]) 1950 Date Time Provider Department 08/31/23 RUTH SULLIVAN AGGENS4 During your visit today, we recorded the following information about you: Zari Walls 08/31/2023 8:12 AM Signed VM received regarding patient wanting to scheduling an EGD and a follow up appointment - [facility] for patient to call back to schedule an appointment. Mixx message sent to patient. Allergies As of [...] Encounter Status:Closed by [facility]ALLS [facility] (AGGENS4) VICKIMARIA LUZ Iris BOOTHE ([id number]) 1950 M Date Time Provider Department 08/28/23 RUTH SULLIVAN During your visit today, we [...] Encounter Status:Closed by BHARATI ONEAL on 08/28/23 [facility] MARIA LUZ SANTANA II ([id number]) 1950 M Date Time Provider Department 08/04/23 EDITH ROQUE4 During your visit today, we recorded the following information about you: Edith Roque RN 08/04/2023 1:26 PM Signed Patient called today to update us. Patient is s/p PEHR w/Tojennifer on 05/12/23. Patient complains of acid reflux, describing it as in the center of my chest. If I take a deep breath is it painful. It is pressure above my breast bone, feeling like stabbing pain when I inhale deeply. Before surgery I felt the acid in the back of my throat and up high in my chest. Patient stated he has been taking his Famotidine off and on and denies having any stabbing chest pain or pain on inhaling while he is on the Famotidine. I really want to come off the Famotidine [...] stated he woke up this morning with acid reflux as he described above. Patient does have environmental allergies and takes Sima every night. He also does a nasal rinse twice a day. He denies cough, but does have intermittent PND (post nasal drip). Patient does not sound nasally congested during our conversation. I told the patient that I don't know if this is acid reflux and since he describes it as stabbing chest pain I recommended that he make an appointment with his PCP (whom he has not seen since prior to surgery) to make sure we are not overlooking something, possibly musculoskeletal. Patient agreed with the plan. Patient has a video follow up appointment with Dr. Sullivan on 09/18/23. Edith Shine-NurseJosephine 08/05/2023 2:59 PM Signed Pt says he [...] Fully Assessed Reason for Visit: Patient Question [0577] Follow Up [171] Prescriptions as of 08/05/2023 [...] Encounter Status:Closed by EDITH ROQUE on 08/04/23 [facility] Amy 07-03-2023 CNPN Telephone (AGGENS4) MARIA LUZ SANTANA II ([id number]) 1950 Date Time Provider Department 07/03/23 RUTH SULLIVAN4 [...] Pt feels good otherwise, no further questions. AILIN Jean Baptiste Cathleen, RN 07/03/2023 12:22 PM Signed I called Bernabe this morning an told him I left him a message at 4:30 on 06/30, again yesterday at 12:30 AND 4:30. Bernabe said he thought it was odd he didn't hear from me because you always call me back. That's why I called Dr. Sullivan's office. 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 They had to reset my phone to get it to work. I asked Bernabe for more detail about the message he left on Thursday stating he has heartburn again. Bernabe said I've had twinges of heartburn here and there and then Thursday it really started to hurt around 3 pm. Before surgery the burning was in my throat and I would call it irritating but this burning was in the middle of my chest and it hurts. I went back on my famotidine twice a day and it much better. Patient denies the heartburn being related to eating or drinking. He also denies nate N/V, constipation or diarrhea. Patient's 24 hour diet recall: ~breakfast-oatmeal, prunes AND 1 cup Fairlife milk ~snack-kamaljit crackers and 1 cup Fairlife milk ~Lunch-canned chicken w/veggie hand, green beans AND protein shake ~snack-kamaljit crackers AND 1 cup Fairlife milk ~Dinner-cod, Nepalese yogurt AND green beans Bernabe said he [...] STEPHY UNDERWOOD (more content not included)... Normal [facility] CNPNon 06-29-2023 CNPN Telephone (AGGENS4) MARIA LUZ SANTANA II ([id number]) 1950 M Date Time Provider Department 06/29/23 RUTH SULLIVAN AGGENS4 During your visit today, we recorded the following information about you: Edith Roque RN 06/29/2023 2:29 PM Signed Patient called because he continues to have issues with constipation. Patient has been taking colace three times a day, drinking at least 70 oz/fluid/day, taking Miralax daily for the last 3 days. He has a hard stool yesterday after using an enema, but did not feel like he completed his bowel movement. My belly got soft after the bowel movement yesterday but it is hard and distended again today. Patient had daily bowel movements before surgery. Patient's diet in the last 24 hours: Breakfast: oatmeal with cut up prunes Lunch #`:protein shake made w/Fairlife milk, Nepalese yogurt, greens and protein powder (split into [...] Fully Assessed Reason for Visit: Patient Question [8407] Prescriptions as of 06/29/2023 - nystatin (MYCOSTATIN) [...] Encounter Status:Closed by EDITH ROQUE on 06/29/23 [facility] Amy 06-22-2023 CHADDN Telephone (AGGENS4) MARIA LUZ SANTANA II ([id number]) 1950 M Date Time Provider Department 06/22/23 RUTH SULLIVAN During your visit today, we recorded the following information about you: Edith Roque, AILIN 06/22/2023 10:06 AM Signed Patient called with [...] thrush. His PCP prescribed Diflucan, but patient had a reaction to it so he was put on Nystatin, 100,000 [...] Encounter Status:Closed by EDITH ROQUE on 06/22/23 [facility] CNOVon 06-03-2023 CNOV Office Visit (AGGENS 4) MARIA LUZ SANTANA II ([id number]) 1950 M Date Time Provider Department 06/03/23 9:00 AM RUTH SULLIVAN4 During your visit today, we [...] Stroke Mother Coronary Artery Disease Father 60 [place] x 3 Blood Disease Father Heart Father SOCIAL HISTORY: Social History Tobacco Use Smoking status: Never Smokeless tobacco: Never Vaping Use Vaping Use: Never used Substance Use Topics Alcohol use: Yes Comment: kaexmcmkbk-1-9 times monthly Drug use: No MEDICATIONS: Current [...] not nervous/a (more content not included)... Normal [facility] 05-28-2023 [facility] Telephone (AGGENS4) MARIA LUZ SANTANA II ([id number]) 1950 M Date Time Provider Department 05/28/23 RUTH SULLIVAN AGGENS4 During your visit today, we recorded the following information about you: Edith Roque, AILIN 05/28/2023 10:21 AM Signed Patient called and [...] Fully Assessed Reason for Visit: Patient Question [8057] Prescriptions as of 05/28/2023 - lisinopril (ZESTRIL) [...] Encounter Status:Closed by EDITH ROQUE on 05/28/23 [facility] Amy 05-18-2023 CNPN Telephone (AGGENS4) MARIA LUZ SANTANA II ([id number]) 1950 M Date Time Provider Department 05/18/23 RUTH SULLIVANENS4 During your visit today, we recorded the following information about you: Edith Roque, AILIN 05/18/2023 10:31 AM Signed Patient called and [...] in his voice. Bernabe also reports a acidy taste in my mouth. I asked Bernabe to go to a mirror, stick his tongue out and report what he sees. Yeah, it looks weird, there is a white coating all over my tongue. I told him I suspect he may have thrush, from his symptoms and I will share that info with Dr. Sullivan. If she sends in a prescription to his [facility] pharmacy I will call him back. Patient stated he is drinking without difficulty, he has moved his bowels and is back to being regular. Patient states his abdominal distension is gone and he has been doing his walking. I told him to keep up the good work. Bernabe said he is grateful that we offer follow up phone calls once the patient is out of the hospital. It is really nice to be able to reach out to someone to make sure you are doing everything right. I told him it was my pleasure to help him recover. Edith Fields RN, RN 05/19/2023 1:55 PM Signed I called patient back and let him know that Dr. Sullivan ordered medication for him and it should be at his pharmacy in [place]. I let him know if that if [...] Encounter Status:Closed by EDITH ROQUE on 05/18/[address] [facility] CNPNon 05-15-2023 CNPN Telephone (AGGENS4) MARIA LUZ SANTANA II ([id number]) 1950 M Date Time Provider Department 05/15/23 RUTH SULLIVANENS4 During your visit today, we [...] to the point I need to throw up. I asked patient if he has moved [...] Fully Assessed Reason for Visit: Patient Question [6497] Prescriptions as of 05/15/2023 - ondansetron (ZOFRAN) [...] Encounter Status:Closed by EDITH ROQUE on 05/15/23 [facility] CNPTila 05-14-2023 CNPN Telephone (AGGENS4) MARIA LUZ SANATNA II ([id number]) 1950 M Date Time Provider Department 05/14/23 RUTH SULLIVAN CASSENS4 During your visit today, [...] by MARY BETH DEMARCO on 05/14/[address] [facility] Basic metabolic 2000 panelon 05-13-2023 Anion gap [Moles/Vol] 13 mmol/L Normal 9-18 [facility] Comment on above: Order Comment: Speci men Type: BLOOD SPECIMEN Ordering Facility: [facility] Address: [address] [place] [address] Performed By: #### 2 4321-2 #### [facility] CLIA [id number] 1 [place] [address] [place] Calcium [Mass/Vol] 8.8 mg/dL Normal 8.5-10.2 [facility] Comment on above: Order Comment: Speci men Type: BLOOD SPECIMEN Ordering Facility: [facility] Address: [address] [place] [address] Performed By: #### 2 4321-2 #### [facility] CLIA [id number] 1 [place] [address] [place] Chloride [Moles/Vol] 100 mmol/L Normal 97-105 [facility] Comment on above: Order Comment: Speci men Type: BLOOD SPECIMEN Ordering Facility: [facility] Address: [address] [place] [address] Performed By: #### 2 4321-2 #### [facility] CLIA [id number] 1 [place] [address] [place] CO2 [Moles/Vol] 25 mmol/L Normal 22-30 [facility] Comment on above: Order Comment: Speci men Type: BLOOD SPECIMEN Ordering Facility: [facility] Address: [address] [place] [address] Performed By: #### 2 4321-2 #### [facility] CLIA [id number] [address] [place] [address] [place] Creatinine [Mass/Vol] 1.06 mg/dL Normal 0.73-1.22 [facility] Comment on above: Order Comment: Speci men Type: BLOOD SPECIMEN Ordering Facility: [facility] Address: [address] [place] [address] Performed By: #### 2 4321-2 #### [facility] CLIA [id number] 1 [place] [address] [place] Creatinine and Glomerular filtration rate.predicted panel (S/P/Bld) 75 mL/min/1.73m??? Normal >=60 [facility] Comment on above: Order Comment: Stevne chen Type: BLOOD SPECIMEN Ordering Facility: [facility] Address: [address] [place] [address] Result Comment: Tasha mated Glomerular Filtration Rate [...] GFR. Performed By: #### 2 4321-2 #### [facility] CLIA [id number] [address] [place] [address] [place] Glucose [Mass/Vol] 110 mg/dL High 74-99 [facility] Comment on above: Order Comment: Steven chen Type: BLOOD SPECIMEN Ordering Facility: [facility] Address: [address] [place] [address] Result Comment: The [place] Diabetes Association (ADA) provides guidance for cutoff [...] Standards of Medical Care in Diabetes 2016, [place] [employer]. Diabetes Care. 2016.39(Suppl 1). Performed By: #### 2 4321-2 #### [facility] CLIA [id number] 1 [place] [address] [place] Potassium [Moles/Vol] 4.1 mmol/L Normal 3.7-5.1 [facility] Comment on above: Order Comment: Speci men Type: BLOOD SPECIMEN Ordering Facility: [facility] Address: [address] [place] [address] Performed By: #### 2 4321-2 #### [facility] CLIA [id number] [address] Sodium [Moles/Vol] 138 mmol/L Normal 136-144 [facility] Comment on above: Order Comment: Speci men Type: BLOOD SPECIMEN Ordering Facility: [facility] Address: [address] [place] [address] Performed By: #### 2 4321-2 #### [facility] CLIA [id number] [address] Urea nitrogen [Mass/Vol] 22 mg/dL Normal 9-24 [facility] Comment on above: Order Comment: Speci men Type: BLOOD SPECIMEN Ordering Facility: [facility] Address: [address] [place] [address] Performed By: #### 2 4321-2 #### [facility] CLIA [id number] [address] OF [facility] CASE MANAGEMon 05-13-2023 CASE MANAGEM HNO ID: [id number] Author: SORIN PATTERSON LISW Service: Social Work Author Type: Workforce Development Assistant Type: Care Mgt Progress Note Filed: 05/13/2023 12:01 Note Text: CARE MANAGEMENT PROGRESS NOTE SERVICE DATE: 05/13/2023 SERVICE TIME: 12:00 PM LOS: 1 day IMM Follow Up Copy Given: Yes Copy given to:: Patient Method: In Person IMM letter given. Patient voiced understanding. SIGNATURE: ANABELLA Mcmanus PATIENT NAME: Maria Luz Santana II DATE: May 13, 2023 TIME: 12:00 PM PAGER/CONTACT #: [phone] [facility] CASE MGT INIT ASSESon 2023 CASE MGT INIT ASSES HNO ID: [id number] Author: SORIN PATTERSON LISW Service: Social Work Author Type: Workforce Development Assistant Type: Care Mgt Initial Assessment Filed: 05/13/2023 [...] Current Advance Directive: Health Care Power of Brick Tender In Chart: Yes Up To Date and [...] to go home, Independent living, General wellness [place] of Choice Explained: [place] Given: No Reason Not Given: [...] medically ready. SIGNATURE: ANABELLA Mcmanus PATIENT NAME: Maria Luz Santana II DATE: May 13, 2023 TIME: 11:27 AM CONTACT #: [phone] [facility] CBC W Auto Differential pane l (Bld)on 05-13-2023 Basophils (Bld) [#/Vol] 10*3/uL Normal <0.11 [facility] Comment on above: Order Comment: Speci men Type: BLOOD SPECIMEN Ordering Facility: [facility] Address: [address] [place] [address] Performed By: #### 5 7021-8 #### [facility] CLIA [id number] [address] Basophils/100 WBC (Bld) 0.1 % Normal [facility] Comment on above: Order Comment: Speci men Type: BLOOD SPECIMEN Ordering Facility: [facility] Address: [address] [place] [address] Performed By: #### 5 7021-8 #### [facility] CLIA [id number] [address] OF [facility] Differential cell count method Nom (Bld) Auto Normal [facility] Comment on above: Order Comment: Speci men Type: BLOOD SPECIMEN Ordering Facility: [facility] Address: [address] [place] [address] Performed By: #### 5 7021-8 #### [facility] CLIA [id number] [address] [place] Eosinophils (Bld) [#/Vol] 10*3/uL Normal <0.46 [facility] Comment on above: Order Comment: Speci men Type: BLOOD SPECIMEN Ordering Facility: [facility] Address: [address] [place] [address] Performed By: #### 5 7021-8 #### [facility] CLIA [id number] [address] Eosinophils/100 WBC (Bld) 0.0 % Normal [facility] Comment on above: Order Comment: Speci men Type: BLOOD SPECIMEN Ordering Facility: [facility] Address: [address] [place] [address] Performed By: #### 5 7021-8 #### [facility] CLIA [id number] [address] [place] Erythrocyte distribution width (RBC) [Ratio] 13.9 % Normal 11.5-15.0 [facility] Comment on above: Order Comment: Speci men Type: BLOOD SPECIMEN Ordering Facility: [facility] Address: [address] [place] [address] Performed By: #### 5 7021-8 #### [facility] CLIA [id number] [address] [place] Hematocrit (Bld) [Volume fraction] 35.6 % Low 39.0-51.0 [facility] Comment on above: Order Comment: Speci men Type: BLOOD SPECIMEN Ordering Facility: [facility] Address: [address] [place] [address] Performed By: #### 5 7021-8 #### [facility] CLIA [id number] [address] [place] Hemoglobin (Bld) [Mass/Vol] 12.0 g/dL Low 13.0-17.0 [facility] Comment on above: Order Comment: Speci men Type: BLOOD SPECIMEN Ordering Facility: [facility] Address: [address] [place] [address] Performed By: #### 5 7021-8 #### [facility] CLIA [id number] [address] [place] Immature granulocytes (Bld) [#/Vol] 0.06 10*3/uL Normal <0.10 [facility] Comment on above: Order Comment: Speci men Type: BLOOD SPECIMEN Ordering Facility: [facility] Address: [address] [place] [address] Performed By: #### 5 7021-8 #### [facility] CLIA [id number] [address] [place] Immature granulocytes/100 WBC (Bld) 0.8 % Normal [facility] Comment on above: Order Comment: Speci men Type: BLOOD SPECIMEN Ordering Facility: [facility] Address: [address] [place] [address] Performed By: #### 5 7021-8 #### [facility] CLIA [id number] [address] [place] Lymphocytes (Bld) [#/Vol] 0.59 10*3/uL Low 1.00-4.00 [facility] Comment on above: Order Comment: Speci men Type: BLOOD SPECIMEN Ordering Facility: [facility] Address: [address] [place] [address] Performed By: #### 5 7021-8 #### [facility] CLIA [id number] [address] Lymphocytes/100 WBC (Bld) 7.4 % Normal [facility] Comment on above: Order Comment: Speci men Type: BLOOD SPECIMEN Ordering Facility: [facility] Address: [address] [place] [address] Performed By: #### 5 7021-8 #### [facility] CLIA [id number] [address] MCH (RBC) [Entitic mass] 31.7 pg Normal 26.0-34.0 [facility] Comment on above: Order Comment: Speci men Type: BLOOD SPECIMEN Ordering Facility: [facility] Address: [address] [place] [address] Performed By: #### 5 7021-8 #### [facility] CLIA [id number] [address] MCHC (RBC) [Mass/Vol] 33.7 g/dL Normal 30.5-36.0 [facility] Comment on above: Order Comment: Speci men Type: BLOOD SPECIMEN Ordering Facility: [facility] Address: [address] [place] [address] Performed By: #### 5 7021-8 #### [facility] CLIA [id number] [address] MCV (RBC) [Entitic vol] 94.2 fL Normal 80.0-100.0 [facility] Comment on above: Order Comment: Speci men Type: BLOOD SPECIMEN Ordering Facility: [facility] Address: [address] [place] [address] Performed By: #### 5 7021-8 #### [facility] CLIA [id number] [address] [place] Monocytes (Bld) [#/Vol] 0.63 10*3/uL Normal <0.87 [facility] Comment on above: Order Comment: Speci men Type: BLOOD SPECIMEN Ordering Facility: [facility] Address: [address] [place] [address] Performed By: #### 5 7021-8 #### [facility] CLIA [id number] [address] [place] Monocytes/100 WBC (Bld) 7.9 % Normal [facility] Comment on above: Order Comment: Speci men Type: BLOOD SPECIMEN Ordering Facility: [facility] Address: [address] [place] [address] Performed By: #### 5 7021-8 #### [facility] CLIA [id number] [address] [place] Neutrophils (Bld) [#/Vol] 6.71 10*3/uL Normal 1.45-7.50 [facility] Comment on above: Order Comment: Speci men Type: BLOOD SPECIMEN Ordering Facility: [facility] Address: [address] [place] [address] Performed By: #### 5 7021-8 #### [facility] CLIA [id number] [address] Neutrophils/100 WBC (Bld) 83.8 % Normal [facility] Comment on above: Order Comment: Speci men Type: BLOOD SPECIMEN Ordering Facility: [facility] Address: [address] [place] [address] Performed By: #### 5 7021-8 #### [facility] CLIA [id number] [address] [place] Nucleated RBC (Bld) [#/Vol] 10*3/uL Normal <0.01 [facility] Comment on above: Order Comment: Speci men Type: BLOOD SPECIMEN Ordering Facility: [facility] Address: [facility] [place] [address] Performed By: #### 5 7021-8 #### [facility] CLIA [id number] [address] [place] Nucleated RBC/100 WBC (Bld) [Ratio] 0.0 /[address] [facility] Comment on above: Order Comment: Speci men Type: BLOOD SPECIMEN Ordering Facility: [facility] Address: [address] [place] [address] Performed By: #### 5 7021-8 #### [facility] CLIA [id number] [address] [place] Platelet mean volume (Bld) [Entitic vol] 9.5 fL Normal 9.0-12.7 [facility] Comment on above: Order Comment: Speci men Type: BLOOD SPECIMEN Ordering Facility: [facility] Address: [address] [place] [address] Performed By: #### 5 7021-8 #### [facility] CLIA [id number] [address] [place] Platelets (Bld) [#/Vol] 146 10*3/uL Low 150-400 [facility] Comment on above: Order Comment: Speci men Type: BLOOD SPECIMEN Ordering Facility: [facility] Address: [address] [place] [address] Performed By: #### 5 7021-8 #### [facility] CLIA [id number] [address] [place] RBC (Bld) [#/Vol] 3.78 10*6/uL Low 4.20-6.00 [facility] Comment on above: Order Comment: Speci men Type: BLOOD SPECIMEN Ordering Facility: [facility] Address: [address] [place] [address] Performed By: #### 5 7021-8 #### [facility] CLIA [id number] [address] [place] WBC (Bld) [#/Vol] 8.00 10*3/uL Normal 3.70-11.00 [facility] Comment on above: Order Comment: Speci men Type: BLOOD SPECIMEN Ordering Facility: [facility] Address: [address] [place] [address] Performed By: #### 5 7021-8 #### [facility] [id number] [address] OF [facility] RAFDSoniel 05-13-2023 CNDS HNO ID: [id number] Author: RUTH SULLIVAN MD Service: General Surgery [...] WAS IN THE HOSPITAL: Patient presented to [facility] on 05/12/23 and underwent laparoscopic paraesophageal [...] Provider to Provider Information: Patient presented to [facility] on 05/12/23 and underwent laparoscopic paraesophageal hernia repair with fundoplication and mesh placement. He tolerated the operation well without any immediate post operative complications. On 05/12, he was discharged in stable condition with instruction to follow up outpatient with Dr. Sullivan in 2 weeks and continue his liquid diet. Treatment Team: Attending Provider: Ruth Sullivan MD FOLLOW-UP APPOINTMENTS ALREADY SCHEDULED WITH [facility] PROVID[facility]: Future Appointments Date Time Provider Department Center 06/03/2023 9:00 AM Ruth Sullivan MD [facility] ALLERGIES Allergen Reactions Corticosteroids (Gl* Other: [...] ZYLOPRIM DIL (more content not included)... Normal [facility] MARIA LUZ SANTANA II ([id number]) 1950 M Date Time Provider Department 05/13/23 [...] Encounter Status:Closed by EDITH ROQUE on 05/13/23 [facility] ANES POSTPROC EVALon 024 ANES POSTPROC EVAL HNO ID: [id number] Author: JEF HANNAH MD Service: Anesthesiology Author Type: Anesthesiologist Type: Anesthesia Postprocedure Evaluation Filed: 05/13/2023 09:58 Note Text: POST ANESTHESIA EVALUATION NOTE : 1950 Procedure Summary Date: 05/12/23 Room / Location: [place] Anesthesia Start: 734 Anesthesia Stop: 1022 Procedures: LAPAROSCOPIC RPR PARAESOHAGEAL HERNIA W/ FUNDOPLASTY W/ MESH, TAP BLOCK (Abdomen) EGD (Abdomen) Diagnosis: Paraesophageal hernia (Paraesophageal hernia [K44.9]) Surgeons: Ruth Sullivan MD Responsible Provider: Jef Hannah MD Anesthesia Type: general ASA Status: [...] PACU/ICU/floor team. Anesthesia Observations No Documentation SIGNATURE: Jef Hannah MD PATIENT NAME: Maria Luz Santana II DATE: May 13, 2023 TIME: 9:57 AM CSN: [id number] [facility] ANES PRE-OPon 05-12-2023 ANES PRE-OP HNO ID: [id number] Author: ALEXANDER THOMPSON MD Service: Anesthesiology Author Type: Anesthesiologist Type: Anesthesia Preprocedure Evaluation Filed: 05/12/2023 08:01 Note Text: ANESTHESIOLOGY DAY OF SURGERY NOTE : 1950 Procedure Information Date/Time: 05/12/23 0730 Procedures: LAPAROSCOPIC RPR PARAESOHAGEAL HERNIA W/ FUNDOPLASTY W/ MESH (Abdomen) TRANSFUSION BLOOD (Abdomen) Location: [place] OR OR Surgeons: Ruth Sullivan MD Estimated body mass index is 28.98 kg/m? as calculated from the following: Height as of 05/05/23: 177.8 cm (5' 10). Weight as of 05/05/23: 91.6 kg (202 [...] and consent discussed: yes. Patient / Responsible Democrat agrees to proceed: yes Patient / Surrogate [...] May 12, 2023 TIME: 6:44 AM CSN: [id number] [facility] HISTORY PHYSICALon HISTORY PHYSICAL HNO ID: [id number] Author: RUTH SULLIVAN MD Service: General Surgery [...] DATE: May 12, 2023 TIME: 7:07 AM [facility] OPERATIVE NOon 05-12-2023 OPERATIVE NO HNO ID: [id number] Author: RUTH SULLIVAN MD Service: General Surgery Author Type: Physician Type: Operative Report Filed: 05/12/2023 10:25 Note Text: OPERATIVE/PROCEDURE REPORT LOG ID: [id number] Surgery/Procedure Date: 05/12/2023 Incision/Procedure Start Time: 8:03 AM Incision Close/Procedure End Time: 10:12 AM Surgeon(s)/Proceduralis t(s) and Brush Trimming Machine Setter(s): Surgeon(s) and Role: * Ruth Sullivan MD - Primary * Edward Dorsey DO - Resident - Assisting Special Education Educational Assistant: Arnold Elizabeth (), Procedure(s): 1.- Laparoscopic repair [...] was a (more content not included)... Normal [facility] SURGICAL PATHOLOGYon CASE REPORT [facility] Comment on above: Order Comment: Speci men Type: TISSUE SPECIMENOrdering Facility: [facility] Address: [address] [place] [address] Result Comment: Surg [facility] Pathology Report Case: [id number] Authorizing Provider: Ruth Sullivan MD Collected: 05/12/2023 09:33 AM Ordering Location: [place] [facility] [place] Received: 05/12/2023 01:37 PM Pathologist: Kathi Schumacher MD Specimen: HERNIA SAC Performed By: #### S ####[facility] LABORATORYCLIA [id number] [place] [address] [place] CLINICAL HISTORY Normal [facility] Comment on above: Order Comment: Speci men Type: TISSUE SPECIMENOrdering Facility: [facility] Address: [address] [place] [address] Result Comment: Pre- op diagnosis: Paraesophageal hernia [K44.9] Performed By: #### S ####[facility] LABORATORYCLIA [id number] [address] FINAL DIAGNOSIS Normal [facility] Comment on above: Order Comment: Speci men Type: TISSUE SPECIMENOrdering Facility: [facility] Address: [address] [place] [address] Result Comment: Para esophageal hernia sac, excision: - Adipose tissue and fibromembranous tissue compatible with hernia sac. Performed By: #### S ####[facility] LABORATORYCLIA [id number] [address] FINAL PERFORMING LAB Normal [facility] Comment on above: Order Comment: Speci men Type: TISSUE SPECIMENOrdering Facility: [facility] Address: [address] [place] [address] Result Comment: Diag nostic interpretation performed at [facility], [address] [place] [address] CLIA# [id number] Smt Operator: Ana Gonzales M.D. Performed By: #### S ####[facility] LABORATORYCLIA [id number] [address] GROSS DESCRIPTION A. HERNIA SAC Normal [facility] Comment on above: Order Comment: Speci men Type: TISSUE SPECIMENOrdering Facility: [facility] Address: [address] [place] [address] Result Comment: Rece ived in formalin labeled hernia sac is a yellow fatty segment of tissue with attached pink membranous tissue measuring 3.0 x 2.3 x 1.4 cm. The specimen is sectioned. Cushion Filler sections are submitted in formalin in 1 cassette. Gross examination performed at [facility], [address] [place] [address] KVB May 12, 2023 2:09 PM Performed By: #### S ####[facility] LABORATORYCLIA [id number] [address] [facility] MAR[facility] LUZ SANTANA ([id number]) 1950 M Date Time Provider Department 05/11/23 RUTH SULLIVAN ELLA4 During your visit today, [...] Date Reviewed: 05/05/2023 Reviewed by: Lisa Alfaro APRN.[facility] - Fully Assessed Reason for Visit: Patient [...] Encounter Status:Closed by ROSELINE MENDOZA on 05/11/[address] [facility] CONFIRM BLOOD TYPEon [address] [facility] Comment on above: Order Comment: Speci men Type: BLOOD SPECIMEN [facility]ing [facility] Address: [address] [place] [address] Performed By: #### C ONABO #### [facility] CLIA [id number] [address] [place] [address] [place] Rh Nom (Bld) Positive Normal [facility] Comment on above: Order Comment: Speci men Type: BLOOD SPECIMEN Ordering [facility] Address: [address] [place] [address] Performed By: #### C ONABO #### [facility] CLIA [id number] [address] [place] [address] [place] HISTORY PHYSICALon HISTORY PHYSICAL HNO ID: [id number] Author: LISA ALFARO APRN.CHADD Service: ? Author Type: Nurse Practitioner [...] which included preparing to see the patient, [id number] patient care, completing clinical documentation, obtaining and/or reviewing separately obtained history, performing a medically appropriate examination, and counseling and educating the patient/family/caregive r. Assessment Patient has the following medical conditions which may affect familia-operative course: Pre-op exam see note for medical conditions which may affect familia-operative course that were addressed at today's visit. Paraesophageal hernia Surgery scheduled 05/12/2023 Tachyarrhythmia Diltiazem-instructed to take DOS [employer] [facility] Dr. Klein-optimization in [facility] 04/02/2023 Migraine with aura Managed [...] initiated at this time: cardiology (scanned in [facility] 04/02/2023). Planned Anesthetic: general The [...] COVID-19 Immunization Status Overdue - Covid-19 Vaccine ( season) Overdue since 10/10/2022 04/17/2020 Imm Admin: COVID-19 [...] See HPI. (more content not included)... Normal [facility] TYPE + SCREENon 05-05-[address] [facility] Comment on above: Order Comment: Speci men Type: BLOOD SPECIMEN [facility]ing [facility] Address: [address] [place] [address] Performed By: #### T SCR #### [facility] CLIA [id number] [address] HISTORICAL AB SCR STATUS Negative Normal [facility] Comment on above: Order Comment: Speci men Type: BLOOD SPECIMEN [facility]ing [facility] Address: [address] [place] [address] Performed By: #### T SCR #### [facility] CLIA [id number] [address] Rh Nom (Bld) Positive Normal [facility] Comment on above: Order Comment: Speci men Type: BLOOD SPECIMEN [facility]ing [facility] Address: [address] [place] [address] Performed By: #### T SCR #### [facility] CLIA [id number] [address] TYPE AND SCREEN EXPIRATION 06/04/2023 23:[address] [facility] Comment on above: Order Comment: Speci men Type: BLOOD SPECIMEN [facility]ing [facility]: [facility] Address: [address] [place] [address] Performed By: #### T SCR #### [facility] CLIA [id number] [address] Absolute lymphocyte countOrd ered By: Zayda Tinajero on 05-01-2023 Lymphocytes Auto (Unsp spec) [#/Vol] 1.21 10*3/uL 0.83-4.51 [facility] Automated lymphocyte count a s percentage of total leukocytesOrdered By: Zayda Tinajero on 05-01-2023 Lymphocytes/100 WBC Auto (Unsp spec) 17.4 % 19-41 [facility] Basophil percentageOrdered B y: Zayda Tinajero on 05-01-2023 Basophils/100 WBC (Bld) 0.6 % 0-1 [facility] Chloride [Moles/Vol] 106 mmol/L 98-107 [facility] Eosinophils/100 WBC (Bld) 2.9 % 0-5 [facility] Glucose [Mass/Vol] 107 mg/dL 74-106 [facility] Comment on above: Fasting Glucose resu lt from 100 to 125 mg/dL suggests IMPAIRED HOMEOSTASIS per A.D.A. criteria. Hemoglobin (Bld) [Mass/Vol] 13.6 g/dL 13.0-16.5 [facility] Monocytes/100 WBC (Bld) 8.8 % 0-10 [facility] Neutrophils (Bld) [#/Vol] 4.9 10*3/uL 2.0-7.7 [facility] Neutrophils/100 WBC (Bld) 69.9 % 47-70 [facility] Potassium [Moles/Vol] 3.5 mmol/L 3.5-5.1 [facility] Sodium [Moles/Vol] 140 mmol/L 136-145 [facility] WBC (Bld) [#/Vol] 6.9 10*3/uL 4.4-11.0 [facility] Determination of erythrocyte mean corpuscular volume (MCV)Ordered By: Zayda Tinajero on 05-01-2023 MCV (RBC) [Entitic vol] 94.8 fL 80-94 [facility] Erythrocyte distribution wid th ratioOrdered By: Zayda Tinajero on 05-01-2023 Erythrocyte distribution width (RBC) [Ratio] 14.1 % 11.6-14.6 [facility] Erythrocyte distribution wid th standard deviationOrdered By: Zayda Tinajero on 05-01-2023 Erythrocyte distribution width (RBC) [Entitic vol] 49.3 fL 35.1-43.9 [facility] Hematocrit Auto (Bld) [Volum e fraction]Ordered By: Zayda Tinajero on 05-01-2023 Hematocrit (Bld) [Volume fraction] 41.8 % 40-54 [facility] Immature granulocytes/100 WB C Auto (Bld)Ordered By: Zayda Tinajero on 05-01-2023 Immature granulocytes/100 WBC (Bld) 0.400 % 0.0-0.9 [facility] Comment on above: IG% - Immature Granu locytes (promyelocytes, myelocytes and metamyelocytes) > 1% indicates that a LEFT SHIFT is Present. Laboratory - Chemistry and C hemistry - challengeOrdered By: Zayda Tinajero on 05-01-2023 CO2 [Moles/Vol] 29.0 mmol/L 21.0-32.0 [facility] Urea nitrogen/Creatinine [Mass ratio] 15.2 mg/mg 10-20 [facility] Laboratory - Hematology and Cell countsOrdered By: Zayda Tinajero on 05-01-2023 MCH (RBC) [Entitic mass] 30.8 pg 27.0-32.0 [facility] MCHC (RBC) [Mass/Vol] 32.5 g/dL 32-36 [facility] Nucleated RBC/100 WBC (Bld) [Ratio] 0 % 0-5 [facility] Platelet mean volume (Bld) [Entitic vol] 9.2 fL 6.2-12.0 [facility] Platelets (Bld) [#/Vol] 207 10*3/uL 150-450 [facility] No Panel InformationOrdered By: Zayda Tinajero on 05-01-2023 Troponin I High Sensitivity 6 pg/mL 3.0-78.0 [facility] Comment on above: Please Note: New [place]ath[place] t Units and Gender Specific Reference Ranges. For more information see Policy Stat Procedure [place] High Sensitivity Troponin (TNIH) and attachments. Estimated Creatinine Clearance Calc 60.91 ml/min [facility] Estimated GFR (MDRD) Amer 73 mL/min >60 [facility] Comment on above: GFR Calc Estimated GFR (MDRD) Non-Af Amer 60 mL/min >60 [facility] Comment on above: Non- GFR Calc RBC Auto (Bld) [#/Vol]Ordere d By: Zayda Tinajero on 05-01-2023 RBC (Bld) [#/Vol] 4.41 10*6/uL 4.6-6.2 [facility] Serum or plasma calcium [place] urement (mass/volume)Ordered By: Zayda Tinajero on 05-01-2023 Calcium [Mass/Vol] 9.4 mg/dL 8.5-10.1 [facility] Serum or plasma creatinine m easurement (mass/volume)Ordered By: Zayda Tinajero on 05-01-2023 Creatinine [Mass/Vol] 1.25 mg/dL 0.70-1.30 [facility] Comment on above: The validity of the calculated GFR & GFRAA in patients over 70 years has not been determined. Clinical correlation is essential. Serum or plasma urea nitroge n measurement (mass/volume)Ordered By: Zayda Tinajero on 05-01-2023 Urea nitrogen [Mass/Vol] 19 mg/dL 7- [facility] Thin prep Papanicolaou smear with manual screeningOrdered By: Zayda Tinajero on 05-01-2023 Thin prep Papanicolaou smear with manual screening 5 5- [facility] CNPNon 04-30-2023 ESTER Telephone (AGGENS3) MARIA LUZ SANTANA ([id number]) 1950 M Date Time Provider Department 04/30/23 ALPA PEARSON During your visit today, we [...] Status:Closed by ALPA PEARSON on 04/30/[address] [facility] Basophil percentageOrdered B y: Matt Hopkins on 04-20-2023 Bilirubin [Mass/Vol] 0.90 mg/dL 0.20-1.00 [facility] Comment on above: For patients on eltr ombopag therapy, use of Dimension [place] TBIL is not recommended. Chloride [Moles/Vol] 107 mmol/L 98-107 [facility] Glucose [Mass/Vol] 101 mg/dL 74-106 [facility] Comment on above: Fasting Glucose resu lt from 100 to 125 mg/dL suggests IMPAIRED HOMEOSTASIS per A.D.A. criteria. Potassium [Moles/Vol] 3.9 mmol/L 3.5-5.1 [facility] Protein [Mass/Vol] 6.8 g/dL 6.4-8.2 [facility] Sodium [Moles/Vol] 142 mmol/L 136-145 [facility] Laboratory - Chemistry and C hemistry - challengeOrdered By: Matt Hopkins on 04-20-2023 Albumin/Globulin [Mass ratio] 1.1 {ratio} 0.9-2.4 [facility] ALP [Catalytic activity/Vol] 74 U/L 45-117 [facility] ALT [Catalytic activity/Vol] 28 U/L 16-61 [facility] CO2 [Moles/Vol] 30.0 mmol/L 21.0-32.0 [facility] Globulin (S) [Mass/Vol] 3.2 g/dL 2.2-4.2 [facility] Urea nitrogen/Creatinine [Mass ratio] 12.4 mg/mg 10-20 [facility] No Panel InformationOrdered By: Matt Hopkins on 04-20-2023 Estimated GFR (MDRD) Amer 82 mL/min >60 [facility] Comment on above: GFR Calc Estimated GFR (MDRD) Non-Af Amer 68 mL/min >60 [facility] Comment on above: Non- GFR Calc Parathyroid Hormone (Intact) 39.5 pg/mL 18.4-80.1 [facility] Vitamin D 25-Hydroxy 33.8 ng/mL [facility] Comment on above: Vitamin D 25(OH) Sta tus Range Deficiency <20 ng/mL (50nmol/L) Insufficiency 20 - 30 ng/mL (50 - 75 nmol/L) Sufficiency 30 - 100 ng/mL (75 - 250 nmol/L) Toxicity >100 ng/mL (>250 nmol/L) Serum or plasma calcium remington urement (mass/volume)Ordered By: Matt Hopkins on 04-20-2023 Calcium [Mass/Vol] 9.4 mg/dL 8.5-10.1 [facility] Serum or plasma creatinine m easurement (mass/volume)Ordered By: Matt Hopkins on 04-20-2023 Creatinine [Mass/Vol] 1.13 mg/dL 0.70-1.30 [facility] Comment on above: The validity of the calculated GFR & GFRAA in patients over 70 years has not been determined. Clinical correlation is essential. Serum or plasma thyroid stim ulating hormone (TSH) measurement (units/volume)Ordered By: Matt Hopkins on 04-20-2023 TSH Qn 1.56 uIU/mL 0.358-3.74 [facility] Serum or plasma urea nitroge n measurement (mass/volume)Ordered By: Matt Hopkins on 04-20-2023 Urea nitrogen [Mass/Vol] 14 mg/dL 7-18 [facility] Thin prep Papanicolaou smear with manual screeningOrdered By: Matt Hopkins on 04-20-2023 Thin prep Papanicolaou smear with manual screening 3.6 g/dL 3.2-5.0 [facility] Thin prep Papanicolaou smear with manual screening 14 U/L 15-37 [facility] Thin prep Papanicolaou smear with manual screening 5 5-15 [facility] CNPNon 04-13-2023 CNPN Telephone (AGGENS3) MARIA LUZ SANTANA ([id number]) 1950 M Date Time Provider Department 04/13/23 ALPA PEARSON3 During your visit today, we recorded the following information about you: Alpa Pearson APRN.CNP 04/13/2023 12:03 PM Signed LMV for patient to call clinic with SOC updates. Alpa Pearson APRN.INDUSTRIAL ILLUMINATING ENGINEER Allergies As of Date: 04/13/2023 Noted Allergy [...] Encounter Status:Closed by ALPA PEARSON on 04/13/23 [facility] CNOVon 04-02-2023 OV Office Visit (AGGENS 4) MARIA LUZ SANTANA ([id number]) 1950 M Date Time Provider Department 04/02/23 [...] to chronic sinus drainage. 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 He [...] for back pain) done last week at [facility] patient will get this uploaded - [...] a day. He does follow with a refrigeration systems installer for [employer]. He has not discussed this with his refrigeration systems installer due to the fact that the patient [...] mg by mouth (more content not included)... Normal [facility] CNPTila 04-02-2023 CHADDN Telephone (AGGENS4) MARIA LUZ SANTANA ([id number]) 1950 [place] Date Time Provider Department 04/02/23 RUTH SULLIVAN AGGENS4 During your visit today, we recorded the following information about you: Luis Underwood RN 04/02/2023 10:20 AM Signed Cardiology clearance letter sent/faxed to Dr. Dwayne Klein MD. Luis Underwood RN Luis Underwood RN 04/03/2023 10:25 AM Signed We have [...] Fully Assessed Reason for Visit: Medical Clearance [1983] Prescriptions as of 04/03/2023 - ergocalciferol 50,000 [...] Encounter Status:Closed by LUIS UNDERWOOD on 04/02/[address] [facility] Absolute lymphocyte countOrd ered By: Ana Casiano on 03-31-2023 Lymphocytes Auto (Unsp spec) [#/Vol] 1.45 10*3/uL 0.83-4.51 [facility] Automated lymphocyte count a s percentage of total leukocytesOrdered By: Ana Casiano on 03-31-2023 Lymphocytes/100 WBC Auto (Unsp spec) 24.8 % 19-41 [facility] Basophil percentageOrdered B y: Ana Casiano on 03-31-2023 Basophil percentage 0-5 SEEN /hpf 0-5 [facility] Basophil percentage 0.58 ng/mL 0.0-4.0 [facility] Comment on above: This test was perfor med using the TPSA assay method for [employer] chemistry system. Values obtained with differentassay methods cannot be used interchangably.When changing PSA assays in the course of monitoring apatient, additional sequential testing should be carriedout to confirm baseline values. Basophils/100 WBC (Bld) 0.7 % 0-1 [facility] Bilirubin [Mass/Vol] 1.10 mg/dL 0.20-1.00 [facility] Comment on above: For patients on eltr ombopag therapy, use of Dimension [place] TBIL is not recommended. Chloride [Moles/Vol] 104 mmol/L 98-107 [facility] Eosinophils/100 WBC (Bld) 1.9 % 0-5 [facility] Glucose [Mass/Vol] 102 mg/dL 74-106 [facility] Comment on above: Fasting Glucose resu lt from 100 to 125 mg/dL suggests IMPAIRED HOMEOSTASIS per A.D.A. criteria. Hemoglobin (Bld) [Mass/Vol] 12.6 g/dL 13.0-16.5 [facility] Monocytes/100 WBC (Bld) 9.4 % 0-10 [facility] Neutrophils (Bld) [#/Vol] 3.7 10*3/uL 2.0-7.7 [facility] Neutrophils/100 WBC (Bld) 62.9 % 47-70 [facility] Potassium [Moles/Vol] 3.7 mmol/L 3.5-5.1 [facility] Protein [Mass/Vol] 6.9 g/dL 6.4-8.2 [facility] Sodium [Moles/Vol] 138 mmol/L 136-145 [facility] WBC (Bld) [#/Vol] 5.8 10*3/uL 4.4-11.0 [facility] Bilirubin Test strip Ql (U)O rdered By: Ana Casiano on 03-31-2023 Bilirubin Ql (U) Negative Negative [facility] Culture, urineOrdered By: Jaswant Casiano on 03-31-2023 Bacteria identified Cx Nom (U) Positive [facility] Bacteria identified Cx Nom (U) Positive [facility] Determination of erythrocyte mean corpuscular volume (MCV)Ordered By: Ana Casiano on 03-31-2023 MCV (RBC) [Entitic vol] 96.0 fL 80-94 [facility] Erythrocyte distribution wid th ratioOrdered By: Ana Casiano on 03-31-2023 Erythrocyte distribution width (RBC) [Ratio] 14.5 % 11.6-14.6 [facility] Erythrocyte distribution wid th standard deviationOrdered By: Ana Casiano on 03-31-2023 Erythrocyte distribution width (RBC) [Entitic vol] 51.1 fL 35.1-43.9 [facility] Hematocrit Auto (Bld) [Volum e fraction]Ordered By: Ana Casiano on 03-31-2023 Hematocrit (Bld) [Volume fraction] 38.0 % 40-54 [facility] Immature granulocytes/100 WB C Auto (Bld)Ordered By: Ana Casiano on 03-31-2023 Immature granulocytes/100 WBC (Bld) 0.300 % 0.0-0.9 [facility] Comment on above: IG% - Immature Granu locytes (promyelocytes, myelocytes and metamyelocytes) > 1% indicates that a LEFT SHIFT is Present. Ketones Test strip Ql (U)Ord ered By: Ana Casiano on 03-31-2023 Ketones Ql (U) Negative Negative [facility] Laboratory - Chemistry and C hemistry - challengeOrdered By: Ana Casiano on 03-31-2023 Albumin/Globulin [Mass ratio] 1.2 {ratio} 0.9-2.4 [facility] ALP [Catalytic activity/Vol] 63 U/L 45-117 [facility] ALT [Catalytic activity/Vol] 31 U/L 16-61 [facility] CO2 [Moles/Vol] 28.0 mmol/L 21.0-32.0 [facility] Globulin (S) [Mass/Vol] 3.1 g/dL 2.2-4.2 [facility] Urea nitrogen/Creatinine [Mass ratio] 14.0 mg/mg 10-20 [facility] Laboratory - Hematology and Cell countsOrdered By: Ana Casiano on 03-31-2023 MCH (RBC) [Entitic mass] 31.8 pg 27.0-32.0 [facility] MCHC (RBC) [Mass/Vol] 33.2 g/dL 32-36 [facility] Nucleated RBC/100 WBC (Bld) [Ratio] 0 % 0-5 [facility] Platelet mean volume (Bld) [Entitic vol] 9.0 fL 6.2-12.0 [facility] Platelets (Bld) [#/Vol] 183 10*3/uL 150-450 [facility] Mucus LM Ql (Urine sed)Order ed By: Ana Casiano on 03-31-2023 Mucus Ql (Urine sed) 0 SEEN /hpf [facility] Nitrite Test strip Ql (U)Ord ered By: Ana Casiano on 03-31-2023 Nitrite Ql (U) Negative Negative [facility] No Panel InformationOrdered By: Ana Casiano on 03-31-2023 C-Reactive Protein Extended Range < 2.90 mg/L 0.0-3.0 [facility] Comment on above: C-Reactive Protein ( CRP) provides useful information for thediagnosis, therapy and monitoring of inflammatory processesand associated diseases. For the evaluation of Relative Riskfor Cardiovascular Disease, a High Sensitivity CRP (HSCRP)should be ordered. Estimated GFR (MDRD) Amer 66 mL/min >60 [facility] Comment on above: GFR Calc Estimated GFR (MDRD) Non-Af Amer 55 mL/min >60 [facility] Comment on above: Non- GFR Calc Urine RBC 0 SEEN /hpf 0-5 [facility] Protein Test strip Ql (U)Ord ered By: Ana Casiano on 03-31-2023 Protein Ql (U) Negative Negative [facility] RBC Auto (Bld) [#/Vol]Ordere d By: Ana Casiano on 03-31-2023 RBC (Bld) [#/Vol] 3.96 10*6/uL 4.6-6.2 [facility] Serum or plasma calcium [place] urement (mass/volume)Ordered By: Ana Casiano on 03-31-2023 Calcium [Mass/Vol] 9.2 mg/dL 8.5-10.1 [facility] Serum or plasma creatinine m easurement (mass/volume)Ordered By: Ana Casiano on 03-31-2023 Creatinine [Mass/Vol] 1.36 mg/dL 0.70-1.30 [facility] Comment on above: The validity of the calculated GFR & GFRAA in patients over 70 years has not been determined. Clinical correlation is essential. Serum or plasma urea nitroge n measurement (mass/volume)Ordered By: Ana Casiano on 03-31-2023 Urea nitrogen [Mass/Vol] 19 mg/dL 7-18 [facility] Squamous epithelial cells de tection in urine sediment by light microscopyOrdered By: Ana Casiano on 03-31-2023 Epithelial cells.squamous LM Ql (Urine sed) 0 SEEN /hpf 0-5 [facility] Thin prep Papanicolaou smear with manual screeningOrdered By: Ana Casiano on 03-31-2023 Thin prep Papanicolaou smear with manual screening 3.8 g/dL 3.2-5.0 [facility] Thin prep Papanicolaou smear with manual screening 22 U/L 15-37 [facility] Thin prep Papanicolaou smear with manual screening 6 5-15 [facility] Urine blood detectionOrdered By: Ana Casiano on 03-31-2023 RBC Ql (U) Negative Negative [facility] Urine clarityOrdered By: Danisha Casiano on 03-31-2023 Clarity (U) Clear Clear [facility] Urine color determinationOrd ered By: Ana Casiano on 03-31-2023 Color (U) Yellow Yellow [facility] Urine glucose detectionOrder ed By: Ana Casiano on 03-31-2023 Glucose Ql (U) Normal mg/dl Normal [facility] Urine leukocyte esterase det ection by dipstickOrdered By: Ana Casiano on 03-31-2023 Leukocyte esterase Test strip Ql (U) 100 /ul Negative [facility] Urine pHOrdered By: Ana royal on 03-31-2023 pH (U) 7.0 [pH] 5.0 - 8.0 [facility] Urine sediment bacteria coun t by microscopy (number/high power field)Ordered By: Ana Casiano on 03-31-2023 Bacteria LM.HPF (Urine sed) [#/Area] 0 /[HPF] None Seen [facility] Urine specific gravity measu rementOrdered By: Ana Casiano on 03-31-2023 Specific gravity (U) [Rel density] 1.010 1.002-1.030 [facility] Urine urobilinogen measureme ntOrdered By: Ana Casiano on 03-31-2023 Urobilinogen Ql (U) Normal mg/dl Normal [facility] CNOVon 03-30-2023 CNOV Office Visit (AGGENS 3) MARIA LUZ SANTANA ([id number]) 1950 M Date Time Provider Department 03/30/23 11:00 AM ALPA PEARSON AGGENS3 During your visit today, we recorded the following information about you: Pulse Respiration Blood pressure Weight 65/minute 18/minute 113/75 88.9 kg Height 1.778 m Alpa Pearson APRN.INDUSTRIAL ILLUMINATING ENGINEER 03/30/2023 11:10 AM Signed Incentive Spirometer: -Start [...] lean beef, salmon, tofu, peanut butter, eggs, irish yogurt, cottage cheese, black beans, lentils -Make [...] member be designated as your power of attorney recruiter in the event you cannot speak for [...] records with the designated Durable Power of Brick Tender. -A great web site for information: [email or web address] Sensory Aids: -If you have any [...] Pearson APRN.CNP [facility] [address] [facility], [address] [place] [address] Patient: Maria Luz Santana Date of : [...] clearance, was seen by Dr. Klein in [place] last week and reports there were no concerns from Cardiology. Reports he has been having sinus drainage, working with PCP using a few different nasal sprays. Reports a good (more content not included)... Normal [facility] Basophil percentageOrdered B y: Dwayne Klein on 03-16-2023 Bilirubin [Mass/Vol] 0.70 mg/dL 0.20-1.00 [facility] Comment on above: For patients on eltr ombopag therapy, use of Dimension [place] TBIL is not recommended. Cholesterol [Mass/Vol] 235 mg/dL <200 [facility] Comment on above: <200 mg/dL Desirable 200-240 mg/dL Borderline >240 mg/dL High Risk Protein [Mass/Vol] 6.7 g/dL 6.4-8.2 [facility] Triglyceride [Mass/Vol] 253 mg/dL <199 [facility] Comment on above: The drugs N-Acetylcy steine and Metamizole may falsely depress this assay.Serum Triglycerides Reference Interval Normal <150 mg/dL Borderline high 150 - 199 mg/dL High 200 - 499 mg/dL Very High > or = 500 mg/dL Basophil percentageOrdered B y: Yamilet Benavides on 03-16-2023 Chloride [Moles/Vol] 105 mmol/L 98-107 [facility] Glucose [Mass/Vol] 101 mg/dL 74-106 [facility] Comment on above: Fasting Glucose resu lt from 100 to 125 mg/dL suggests IMPAIRED HOMEOSTASIS per A.D.A. criteria. Hemoglobin (Bld) [Mass/Vol] 12.1 g/dL 13.0-16.5 [facility] Potassium [Moles/Vol] 3.6 mmol/L 3.5-5.1 [facility] Sodium [Moles/Vol] 140 mmol/L 136-145 [facility] WBC (Bld) [#/Vol] 5.8 10*3/uL 4.4-11.0 [facility] Determination of erythrocyte mean corpuscular volume (MCV)Ordered By: Yamilet Benavides on 03-16-2023 MCV (RBC) [Entitic vol] 95.9 fL 80-94 [facility] Direct bilirubinOrdered By: wDayne Klein on 03-16-2023 Bilirubin.direct [Mass/Vol] 0.16 mg/dL 0.00-0.30 [facility] Erythrocyte distribution wid th ratioOrdered By: Yamilet Benavides on 03-16-2023 Erythrocyte distribution width (RBC) [Ratio] 14.6 % 11.6-14.6 [facility] Erythrocyte distribution wid th standard deviationOrdered By: Yamilet Benavides on 03-16-2023 Erythrocyte distribution width (RBC) [Entitic vol] 51.2 fL 35.1-43.9 [facility] Hematocrit Auto (Bld) [Volum e fraction]Ordered By: Yamilet Benavides on 03-16-2023 Hematocrit (Bld) [Volume fraction] 37.1 % 40-54 [facility] Laboratory - Chemistry and C hemistry - challengeOrdered By: Dwayne Klein on 03-16-2023 ALP [Catalytic activity/Vol] 56 U/L 45-117 [facility] ALT [Catalytic activity/Vol] 25 U/L 16-61 [facility] Cholesterol in HDL [Mass/Vol] 43 mg/dL >40 [facility] Comment on above: The drugs N-Acetylcy steine and Metamizole may falsely depress this assay. Reference Range HDL <40 mg/dL Low HDL Cholesterol HDL >or= 60 mg/dL High HDL Cholesterol Cholesterol in LDL [Mass/Vol] 141 mg/dL 0-130 [facility] Globulin (S) [Mass/Vol] 3.1 g/dL 2.2-4.2 [facility] Laboratory - Chemistry and C hemistry - challengeOrdered By: Yamilet Benavides on 03-16-2023 CO2 [Moles/Vol] 32.0 mmol/L 21.0-32.0 [facility] Natriuretic peptide B (Bld) [Mass/Vol] 9.7 pg/mL 0-100 [facility] Urea nitrogen/Creatinine [Mass ratio] 11.9 mg/mg 10-20 [facility] Laboratory - Hematology and Cell countsOrdered By: Yamilet Benavides on 03-16-2023 MCH (RBC) [Entitic mass] 31.3 pg 27.0-32.0 [facility] MCHC (RBC) [Mass/Vol] 32.6 g/dL 32-36 [facility] Platelets (Bld) [#/Vol] 207 10*3/uL 150-450 [facility] No Panel InformationOrdered By: Yamilet Benavides on 03-16-2023 Estimated GFR (MDRD) Amer 72 mL/min >60 [facility] Comment on above: GFR Calc Estimated GFR (MDRD) Non-Af Amer 60 mL/min >60 [facility] Comment on above: Non- GFR Calc No Panel InformationOrdered By: Dwayne Klein on 03-16-2023 VLDL Cholesterol 51 mg/dL 5-40 [facility] Platelet mean volume Brijesh-Ec ker (Bld) [Entitic vol]Ordered By: Yamilet Benavides on 03-16-2023 Platelet mean volume (Bld) [Entitic vol] 9.2 fL 6.2-12.0 [facility] RBC Auto (Bld) [#/Vol]Ordere d By: Yamilet Benavides on 03-16-2023 RBC (Bld) [#/Vol] 3.87 10*6/uL 4.6-6.2 [facility] Serum or plasma calcium remington urement (mass/volume)Ordered By: Yamilet Benavides on 03-16-2023 Calcium [Mass/Vol] 9.0 mg/dL 8.5-10.1 [facility] Serum or plasma creatinine m easurement (mass/volume)Ordered By: Yaimlet Benavides on 03-16-2023 Creatinine [Mass/Vol] 1.26 mg/dL 0.70-1.30 [facility] Comment on above: The validity of the calculated GFR & GFRAA in patients over 70 years has not been determined. Clinical correlation is essential. Serum or plasma urea nitroge n measurement (mass/volume)Ordered By: Yamilet Benavides on 03-16-2023 Urea nitrogen [Mass/Vol] 15 mg/dL 7-18 [facility] Thin prep Papanicolaou smear with manual screeningOrdered By: Dwayne Klein on 03-16-2023 Thin prep Papanicolaou smear with manual screening 3.6 g/dL 3.2-5.0 [facility] Thin prep Papanicolaou smear with manual screening 19 U/L 15-37 [facility] Thin prep Papanicolaou smear with manual screeningOrdered By: Yamilet Benavides on 03-16-2023 Thin prep Papanicolaou smear with manual screening 3 5-15 [facility] NURSING PROGon 03-13-2023 NURSING PROG HNO ID: [id number] Author: JOSE HILTON RN Service: Nursing Author Type: Registered Nurse [...] procedure.No heme noted when catheter removed. Normal [facility] XR ESOPHAGRAMon 03-10-2023 XR ESOPHAGRAM * * *Final Report* * * DATE OF EXAM: Mar 10 2023 12:54PM AWX [id number] - XR ESOPHAGRAM / PROCEDURE REASON: multiple diagnoses * * * * Physician Interpretation * * * * EXAM TITLE: XR ESOPHAGRAM DATE: 03/10/2023 COMPARISON: None. CLINICAL INDICATION/HISTORY: Gastroesophageal reflux TECHNIQUE: A double contrast esophagram was performed by a higher level teaching assistant. 110 images are submitted for interpretation. 44 [...] direct visualization. Gastroesophageal reflux into the midesophagus. Hardware Designer: GLORIA Transcribe Date/Time: Mar 10 2023 1:06P Dictated by : FLAKITO HOUSE MD This examination was interpreted and the report reviewed and electronically signed by: FLAKITO HOUSE MD on Mar 10 2023 1:08PM EST [id number] Normal [facility] CNOVon 03-06-2023 CNOV Office Visit (AGGENS 4) MARIA LUZ SNATANA ([id number]) 1950 M Date Time Provider Department 03/06/23 [...] a day. He does follow with a refrigeration systems installer for [employer]. He has not discussed this with his refrigeration systems installer due to the fact that the patient [...] for heartburn. (more content not included)... Normal [facility] CNPNon 03-06-2023 [facility] Telephone (AGGENS4) MARIA LUZ SANTANA ([id number]) 1950 M Date Time Provider Department 03/06/23 [...] Encounter Status:Closed by LUZ GILLIAM on 03/06/23 [facility] Amy 03-02-2023 CNPN Telephone (AGGENS4) MARIA LUZ SANTANA ([id number]) 1950 M Date Time Provider Department 03/02/23 RUTH SULLIVAN AGGENS4 During your visit today, we recorded the following information about you: Eileen Mathis 03/02/2023 10:20 AM Signed Left voicemail for patient regarding voicemail patient left about his upcoming appointment time. Correct appointment information left on patient voicemail. Eileen Mathis March 02, 2023 10:20 AM Allergies [...] mg by mouth every evening. - ACETYLCYSTEINE (C-IWIVFL-Z-CYSTEINE MISC) - LISINOPRIL ORAL Take by mouth. - hydrochlorothiazide 12.5 mg tablet Take 12.5 mg by mouth once daily. Two tablets Problem List As Of Date: 03/02/2023 (None) Encounter Status:Closed by EILEEN MATHIS on 03/02/[address] [facility] Absolute lymphocyte countOrd ered By: ED PROVIDER on 02-13-2023 Lymphocytes Auto (Unsp spec) [#/Vol] 0.90 10*3/uL 0.83-4.51 [facility] Basophil percentageOrdered B y: Kenton Dillard on 02-13-2023 Lactate [Moles/Vol] 1.2 mmol/L 0.4-2.0 [facility] Basophil percentageOrdered B y: ED PROVIDER on 02-13-2023 Basophils/100 WBC (Bld) 0.4 % 0-1 [facility] Chloride [Moles/Vol] 103 mmol/L 98-107 [facility] Eosinophils/100 WBC (Bld) 1.3 % 0-5 [facility] Glucose [Mass/Vol] 106 mg/dL 74-106 [facility] Comment on above: Fasting Glucose resu lt from 100 to 125 mg/dL suggests IMPAIRED HOMEOSTASIS per A.D.A. criteria. Neutrophils (Bld) [#/Vol] 4.0 10*3/uL 2.0-7.7 [facility] Neutrophils/100 WBC (Bld) 72.6 % 47-70 [facility] Potassium [Moles/Vol] 3.8 mmol/L 3.5-5.1 [facility] Sodium [Moles/Vol] 137 mmol/L 136-145 [facility] WBC (Bld) [#/Vol] 5.4 10*3/uL 4.4-11.0 [facility] Blood erythrocytes count (nu mber/volume)Ordered By: ED PROVIDER on 02-13-2023 RBC (Bld) [#/Vol] 4.01 10*6/uL 4.6-6.2 [facility] Blood hemoglobin measurement (mass/volume)Ordered By: ED PROVIDER on 02-13-2023 Hemoglobin (Bld) [Mass/Vol] 12.4 g/dL 13.0-16.5 [facility] Blood lymphocytes/100 leukoc ytesOrdered By: ED PROVIDER on 02-13-2023 Lymphocytes/100 WBC (Bld) 16.5 % 19-41 [facility] Blood monocytes/100 leukocyt esOrdered By: ED PROVIDER on 02-13-2023 Monocytes/100 WBC (Bld) 8.6 % 0-10 [facility] Blood platelet mean volumeOr dered By: ED PROVIDER on 02-13-2023 Platelet mean volume (Bld) [Entitic vol] 9.5 fL 6.2-12.0 [facility] Determination of erythrocyte mean corpuscular volume (MCV)Ordered By: ED PROVIDER on 02-13-2023 MCV (RBC) [Entitic vol] 92.0 fL 80-94 [facility] Hematocrit Auto (Bld) [Volum e fraction]Ordered By: ED PROVIDER on 02-13-2023 Hematocrit (Bld) [Volume fraction] 36.9 % 40-54 [facility] Laboratory - Chemistry and C hemistry - challengeOrdered By: ED PROVIDER on 02-13-2023 CO2 [Moles/Vol] 28.0 mmol/L 21.0-32.0 [facility] Urea nitrogen/Creatinine [Mass ratio] 13.6 mg/mg 10-20 [facility] Laboratory - Hematology and Cell countsOrdered By: ED PROVIDER on 02-13-2023 Erythrocyte distribution width (RBC) [Entitic vol] 46.1 fL 35.1-43.9 [facility] Erythrocyte distribution width (RBC) [Ratio] 13.5 % 11.6-14.6 [facility] Immature granulocytes/100 WBC (Bld) 0.600 % 0.0-0.9 [facility] Comment on above: IG% - Immature Granu locytes (promyelocytes, myelocytes and metamyelocytes) > 1% indicates that a LEFT SHIFT is Present. MCH (RBC) [Entitic mass] 30.9 pg 27.0-32.0 [facility] Nucleated RBC/100 WBC (Bld) [Ratio] 0 % 0-5 [facility] Laboratory - Microbiology an d Antimicrobial susceptibilityOrdered By: Kenton Dillard on 02-13-2023 Bacteria identified Cx Nom (Bld) No growth in 5 days. [facility] Bacteria identified Cx Nom (Bld) No growth in 5 days. [facility] MCHC Auto (RBC) [Mass/Vol]Or dered By: ED PROVIDER on 02-13-2023 MCHC (RBC) [Mass/Vol] 33.6 g/dL 32-36 [facility] No Panel InformationOrdered By: ED PROVIDER on 02-13-2023 Estimated Creatinine Clearance Calc 58.43 ml/min [facility] Estimated GFR (MDRD) Amer 78 mL/min >60 [facility] Comment on above: GFR Calc Estimated GFR (MDRD) Non-Af Amer 64 mL/min >60 [facility] Comment on above: Non- GFR Calc Platelets bldOrdered By: ED PROVIDER on 02-13-2023 Platelets (Bld) [#/Vol] 250 10*3/uL 150-450 [facility] Serum or plasma calcium rem[place] urement (mass/volume)Ordered By: ED PROVIDER on 02-13-2023 Calcium [Mass/Vol] 9.2 mg/dL 8.5-10.1 [facility] Serum or plasma creatinine m easurement (mass/volume)Ordered By: ED PROVIDER on 02-13-2023 Creatinine [Mass/Vol] 1.18 mg/dL 0.70-1.30 [facility] Comment on above: The validity of the calculated GFR & GFRAA in patients over 70 years has not been determined. Clinical correlation is essential. Serum or plasma urea nitroge n measurement (mass/volume)Ordered By: ED PROVIDER on 02-13-2023 Urea nitrogen [Mass/Vol] 16 mg/dL 7-18 [facility] Thin prep Papanicolaou smear with manual screeningOrdered By: ED PROVIDER on 02-13-2023 Thin prep Papanicolaou smear with manual screening 6 5-15 [facility] Absolute lymphocyte countOrd ered By: Rell Valentine on 02-12-2023 Lymphocytes Auto (Unsp spec) [#/Vol] 0.70 10*3/uL 0.83-4.51 [facility] Basophil percentageOrdered B y: Rell Valentine on 02-12-2023 Basophils/100 WBC (Bld) 0.4 % 0-1 [facility] Chloride [Moles/Vol] 102 mmol/L 98-107 [facility] Eosinophils/100 WBC (Bld) 0.9 % 0-5 [facility] Glucose [Mass/Vol] 106 mg/dL 74-106 [facility] Comment on above: Fasting Glucose resu lt from 100 to 125 mg/dL suggests IMPAIRED HOMEOSTASIS per A.D.A. criteria. Lactate [Moles/Vol] 1.5 mmol/L 0.4-2.0 [facility] Neutrophils (Bld) [#/Vol] 3.3 10*3/uL 2.0-7.7 [facility] Neutrophils/100 WBC (Bld) 73.0 % 47-70 [facility] Potassium [Moles/Vol] 3.7 mmol/L 3.5-5.1 [facility] Sodium [Moles/Vol] 139 mmol/L 136-145 [facility] WBC (Bld) [#/Vol] 4.5 10*3/uL 4.4-11.0 [facility] Blood erythrocytes count (nu mber/volume)Ordered By: Rell Valentine on 02-12-2023 RBC (Bld) [#/Vol] 3.92 10*6/uL 4.6-6.2 [facility] Blood hemoglobin measurement (mass/volume)Ordered By: Rell Valentine on 02-12-2023 Hemoglobin (Bld) [Mass/Vol] 12.3 g/dL 13.0-16.5 [facility] Blood lymphocytes/100 leukoc ytesOrdered By: Rell Valentine on 02-12-2023 Lymphocytes/100 WBC (Bld) 15.5 % 19-41 [facility] Blood monocytes/100 leukocyt esOrdered By: Rell Valentine on 02-12-2023 Monocytes/100 WBC (Bld) 9.5 % 0-10 [facility] Blood platelet mean volumeOr dered By: Rell Valentine on 02-12-2023 Platelet mean volume (Bld) [Entitic vol] 9.7 fL 6.2-12.0 [facility] Determination of erythrocyte mean corpuscular volume (MCV)Ordered By: Rell Valentine on 02-12-2023 MCV (RBC) [Entitic vol] 92.6 fL 80-94 [facility] Hematocrit Auto (Bld) [Volum e fraction]Ordered By: Rell Valentine on 02-12-2023 Hematocrit (Bld) [Volume fraction] 36.3 % 40-54 [facility] Laboratory - Chemistry and C hemistry - challengeOrdered By: Rell Valentine on 02-12-2023 CO2 [Moles/Vol] 27.0 mmol/L 21.0-32.0 [facility] Urea nitrogen/Creatinine [Mass ratio] 12.3 mg/mg 10-20 [facility] Laboratory - Hematology and Cell countsOrdered By: Rell Valentine on 02-12-2023 Erythrocyte distribution width (RBC) [Entitic vol] 46.2 fL 35.1-43.9 [facility] Erythrocyte distribution width (RBC) [Ratio] 13.6 % 11.6-14.6 [facility] Immature granulocytes/100 WBC (Bld) 0.700 % 0.0-0.9 [facility] Comment on above: IG% - Immature Granu locytes (promyelocytes, myelocytes and metamyelocytes) > 1% indicates that a LEFT SHIFT is Present. MCH (RBC) [Entitic mass] 31.4 pg 27.0-32.0 [facility] Nucleated RBC/100 WBC (Bld) [Ratio] 0 % 0-5 [facility] Laboratory - Microbiology an d Antimicrobial susceptibilityOrdered By: Rell Valentine on 02-12-2023 SARS-CoV-2 (COVID-19) RNA KASIE+probe Ql (Unsp spec) Influenzae A [facility] SARS-CoV-2 (COVID-19) RNA KASIE+probe Ql (Unsp spec) Influenzae A [facility] MCHC Auto (RBC) [Mass/Vol]Or dered By: Rell Valentine on 02-12-2023 MCHC (RBC) [Mass/Vol] 33.9 g/dL 32-36 [facility] No Panel InformationOrdered By: Rell Valentine on 02-12-2023 Estimated Creatinine Clearance Calc 53.03 ml/min [facility] Estimated GFR (MDRD) Amer 70 mL/min >60 [facility] Comment on above: GFR Calc Estimated GFR (MDRD) Non-Af Amer 58 mL/min >60 [facility] Comment on above: Non- GFR Calc Platelets bldOrdered By: Rell Valentine on 02-12-2023 Platelets (Bld) [#/Vol] 202 10*3/uL 150-450 [facility] Serum or plasma calcium remington urement (mass/volume)Ordered By: Rell Valentine on 02-12-2023 Calcium [Mass/Vol] 9.4 mg/dL 8.5-10.1 [facility] Serum or plasma creatinine m easurement (mass/volume)Ordered By: Rell Valentine on 02-12-2023 Creatinine [Mass/Vol] 1.30 mg/dL 0.70-1.30 [facility] Comment on above: The validity of the calculated GFR & GFRAA in patients over 70 years has not been determined. Clinical correlation is essential. Serum or plasma urea nitroge n measurement (mass/volume)Ordered By: Rellmichela Valentine on 02-12-2023 Urea nitrogen [Mass/Vol] 16 mg/dL 7-18 [facility] Thin prep Papanicolaou smear with manual screeningOrdered By: Rellmichela Valentine on 02-12-2023 Thin prep Papanicolaou smear with manual screening 10 5-15 [facility] Influenza virus A and B and Respiratory syncytial virus RNA panel - Upper respiratoryOrdered By: Ata Edwards on 11-19-2022 FLUAV and FLUBV and RSV pnl KASIE+probe (Upper resp) [facility] FLUAV and FLUBV and RSV pnl KASIE+probe (Upper resp) [facility] No Panel Informationon 11-19 Influenza Types A,B Rapid (Clinic) Negative [facility] POC SARS CoV-2 Antigen Negative [facility] Basophil percentageOrdered B y: Dr. Wilhelm on 06-16-2022 Chloride [Moles/Vol] 105 mmol/L 98-107 [facility] Glucose [Mass/Vol] 127 mg/dL 74-106 [facility] Comment on above: Fasting Glucose resu lt greater than or equal to 126 mg/dL suggests DIABETES MELLITUS per A.D.A. criteria. Potassium [Moles/Vol] 3.5 mmol/L 3.5-5.1 [facility] Sodium [Moles/Vol] 139 mmol/L 136-145 [facility] WBC (Bld) [#/Vol] 5.1 10*3/uL 4.4-11.0 [facility] Blood erythrocytes count (nu mber/volume)Ordered By: Dr. Wilhelm on 06-16-2022 RBC (Bld) [#/Vol] 4.13 10*6/uL 4.6-6.2 [facility] Blood hemoglobin measurement (mass/volume)Ordered By: Dr. Wilhelm on 06-16-2022 Hemoglobin (Bld) [Mass/Vol] 13.2 g/dL 13.0-16.5 [facility] Blood platelet mean volumeOr dered By: Dr. Wilhelm on 06-16-2022 Platelet mean volume (Bld) [Entitic vol] 10.0 fL 6.2-12.0 [facility] Determination of erythrocyte mean corpuscular volume (MCV)Ordered By: Dr. Wilhelm on 06-16-2022 MCV (RBC) [Entitic vol] 94.9 fL 80-94 [facility] Hematocrit Auto (Bld) [Volum e fraction]Ordered By: Dr. Wilhelm on 06-16-2022 Hematocrit (Bld) [Volume fraction] 39.2 % 40-54 [facility] Laboratory - Chemistry and C hemistry - challengeOrdered By: Dr. Wilhelm on 06-16-2022 CO2 [Moles/Vol] 27.0 mmol/L 21.0-32.0 [facility] Urea nitrogen/Creatinine [Mass ratio] 15.8 mg/mg 10-20 [facility] Laboratory - Hematology and Cell countsOrdered By: Dr. Wilhelm on 06-16-2022 Erythrocyte distribution width (RBC) [Entitic vol] 46.6 fL 35.1-43.9 [facility] Erythrocyte distribution width (RBC) [Ratio] 13.4 % 11.6-14.6 [facility] MCH (RBC) [Entitic mass] 32.0 pg 27.0-32.0 [facility] MCHC Auto (RBC) [Mass/Vol]Or dered By: Dr. Wilhlem on 06-16-2022 MCHC (RBC) [Mass/Vol] 33.7 g/dL 32-36 [facility] No Panel InformationOrdered By: Dr. Wilhelm on 06-16-2022 Estimated GFR (MDRD) Amer 77 mL/min >60 [facility] Comment on above: GFR Calc Estimated GFR (MDRD) Non-Af Amer 63 mL/min >60 [facility] Comment on above: Non- GFR Calc Prostate Specific Antigen Screen 0.83 ng/mL 0.00-4.00 [facility] Comment on above: This test was perfor med using the TPSA assay method for the[employer]Vet chemistry system. Values obtained with differentassay methods cannot be used interchangably.When changing PSA assays in the course of monitoring apatient, additional sequential testing should be carriedout to confirm baseline values. Platelets bldOrdered By: Dr. Wlihelm on 06-16-2022 Platelets (Bld) [#/Vol] 171 10*3/uL 150-450 [facility] Serum or plasma calcium remington urement (mass/volume)Ordered By: Dr. Wilhelm on 06-16-2022 Calcium [Mass/Vol] 9.0 mg/dL 8.5-10.1 [facility] Serum or plasma creatinine m easurement (mass/volume)Ordered By: Dr. Wilhelm on 06-16-2022 Creatinine [Mass/Vol] 1.20 mg/dL 0.70-1.30 [facility] Comment on above: The validity of the calculated GFR & GFRAA in patients over 70 years has not been determined. Clinical correlation is essential. Serum or plasma urea nitroge n measurement (mass/volume)Ordered By: Dr. Wilhelm on 06-16-2022 Urea nitrogen [Mass/Vol] 19 mg/dL 7-18 [facility] Thin prep Papanicolaou smear with manual screeningOrdered By: Dr. Wilhelm on 06-16-2022 Thin prep Papanicolaou smear with manual screening 7 5-15 [facility] Basophil percentageOrdered B y: Dr. Klein on 05-07-2022 Bilirubin [Mass/Vol] 0.90 mg/dL 0.20-1.00 [facility] Comment on above: For patients on eltr ombopag therapy, use of Dimension [place] TBIL is not recommended. Cholesterol [Mass/Vol] 230 mg/dL <200 [facility] Comment on above: <200 mg/dL Desirable 200-240 mg/dL Borderline >240 mg/dL High Risk Protein [Mass/Vol] 6.3 g/dL 6.4-8.2 [facility] Triglyceride [Mass/Vol] 147 mg/dL <199 [facility] Comment on above: The drugs N-Acetylcy steine and Metamizole may falsely depress this assay.Serum Triglycerides Reference Interval Normal <150 mg/dL Borderline high 150 - 199 mg/dL High 200 - 499 mg/dL Very High > or = 500 mg/dL Direct bilirubinOrdered By: Dr. Klein on 05-07-2022 Bilirubin.direct [Mass/Vol] 0.21 mg/dL 0.00-0.30 [facility] Laboratory - Chemistry and C hemistry - challengeOrdered By: Dr. Klein on 05-07-2022 ALP [Catalytic activity/Vol] 55 U/L 45-117 [facility] [facility] ALT [Catalytic activity/Vol] 28 U/L 16-61 [facility] Globulin (S) [Mass/Vol] 2.7 g/dL 2.2-4.2 [facility] Serum or plasma albumin [place] urement (mass/volume)Ordered By: Dr. Klein on 05-07-2022 Albumin [Mass/Vol] 3.6 g/dL 3.2-5.0 [facility] Serum or plasma cholesterol in HDL measurement (mass/volume)Ordered By: Dr. Klein on 05-07-2022 Cholesterol in HDL [Mass/Vol] 43 mg/dL >40 [facility] Comment on above: The drugs N-Acetylcy steine and Metamizole may falsely depress this assay. Reference Range HDL <40 mg/dL Low HDL Cholesterol HDL >or= 60 mg/dL High HDL Cholesterol Serum or plasma cholesterol in VLDL measurement (mass/volume)Ordered By: Dr. Klein on 05-07-2022 Cholesterol in VLDL [Mass/Vol] 29 mg/dL 5-40 [facility] Serum or plasma low density lipoprotein (LDL) cholesterol measurement (mass/volume)Ordered By: Dr. Klein on 05-07-2022 Cholesterol in LDL [Mass/Vol] 158 mg/dL 0-130 [facility] Thin prep Papanicolaou smear with manual screeningOrdered By: Dr. Klein on 05-07-2022 Thin prep Papanicolaou smear with manual screening 21 U/L 15-37 [facility] Absolute lymphocyte countOrd ered By: Dr. Casiano on 03-07-2022 Lymphocytes Auto (Unsp spec) [#/Vol] 1.37 10*3/uL 0.83-4.51 [facility] Basophil percentageOrdered B y: Dr. Casiano on 03-07-2022 Ammonia (P) [Moles/Vol] 22.0 umol/L 11-32 [facility] Basophils/100 WBC (Bld) 0.6 % 0-1 [facility] Bilirubin [Mass/Vol] 0.80 mg/dL 0.20-1.00 [facility] Comment on above: For patients on eltr ombopag therapy, use of Dimension [place] TBIL is not recommended. Chloride [Moles/Vol] 104 mmol/L 98-107 [facility] Eosinophils/100 WBC (Bld) 2.6 % 0-5 [facility] Glucose [Mass/Vol] 100 mg/dL 74-106 [facility] Comment on above: Fasting Glucose resu lt from 100 to 125 mg/dL suggests IMPAIRED HOMEOSTASIS per A.D.A. criteria. Neutrophils (Bld) [#/Vol] 3.4 10*3/uL 2.0-7.7 [facility] Neutrophils/100 WBC (Bld) 61.9 % 47-70 [facility] Potassium [Moles/Vol] 3.6 mmol/L 3.5-5.1 [facility] Protein [Mass/Vol] 6.5 g/dL 6.4-8.2 [facility] Sodium [Moles/Vol] 141 mmol/L 136-145 [facility] WBC (Bld) [#/Vol] 5.5 10*3/uL 4.4-11.0 [facility] Blood erythrocytes count (nu mber/volume)Ordered By: Dr. Casiano on 03-07-2022 RBC (Bld) [#/Vol] 4.28 10*6/uL 4.6-6.2 [facility] Blood hemoglobin measurement (mass/volume)Ordered By: Dr. Casiano on 03-07-2022 Hemoglobin (Bld) [Mass/Vol] 13.8 g/dL 13.0-16.5 [facility] Blood lymphocytes/100 leukoc ytesOrdered By: Dr. Casiano on 03-07-2022 Lymphocytes/100 WBC (Bld) 25.1 % 19-41 [facility] Blood monocytes/100 leukocyt esOrdered By: Dr. Casiano on 03-07-2022 Monocytes/100 WBC (Bld) 9.4 % 0-10 [facility] Blood platelet mean volumeOr dered By: Dr. Casiano on 03-07-2022 Platelet mean volume (Bld) [Entitic vol] 9.8 fL 6.2-12.0 [facility] Determination of erythrocyte mean corpuscular volume (MCV)Ordered By: Dr. Casiano on 03-07-2022 MCV (RBC) [Entitic vol] 94.6 fL 80-94 [facility] Hematocrit Auto (Bld) [Volum e fraction]Ordered By: Dr. Casiano on 03-07-2022 Hematocrit (Bld) [Volume fraction] 40.5 % 40-54 [facility] Laboratory - Chemistry and C hemistry - challengeOrdered By: Dr. Casiano on 03-07-2022 Albumin [Mass/Vol] 3.8 g/dL 2.9-4.4 [facility] ALP [Catalytic activity/Vol] 56 U/L 45-117 [facility] ALT [Catalytic activity/Vol] 28 U/L 16-61 [facility] CO2 [Moles/Vol] 28.0 mmol/L 21.0-32.0 [facility] Urea nitrogen/Creatinine [Mass ratio] 14.5 mg/mg 10-20 [facility] Laboratory - Hematology and Cell countsOrdered By: Dr. Casiano on 03-07-2022 Erythrocyte distribution width (RBC) [Entitic vol] 48.5 fL 35.1-43.9 [facility] Erythrocyte distribution width (RBC) [Ratio] 14.0 % 11.6-14.6 [facility] Immature granulocytes/100 WBC (Bld) 0.400 % 0.0-0.9 [facility] Comment on above: IG% - Immature Granu locytes (promyelocytes, myelocytes and metamyelocytes) > 1% indicates that a LEFT SHIFT is Present. MCH (RBC) [Entitic mass] 32.2 pg 27.0-32.0 [facility] Nucleated RBC/100 WBC (Bld) [Ratio] 0 % 0-5 [facility] MCHC Auto (RBC) [Mass/Vol]Or dered By: Dr. Casiano on 03-07-2022 MCHC (RBC) [Mass/Vol] 34.1 g/dL 32-36 [facility] No Panel InformationOrdered By: Dr. Casiano on 03-07-2022 Addendum Document Comment . [facility] Comment on above: The SPE pattern appe ars unremarkable. Evidence ofmonoclonal protein is not apparent. [id number] 0.2 g/dL 0.0-0.4 [facility] Pukpg-8-Fayhejmmq 0.6 g/dL 0.4-1.0 [facility] Estimated GFR (MDRD) Amer 74 mL/min >60 [facility] Comment on above: GFR Calc Estimated GFR (MDRD) Non-Af Amer 61 mL/min >60 [facility] Comment on above: Non- GFR Calc Gamma Globulins 0.8 g/dL 0.4-1.8 [facility] Miscellaneous Test See comment [facility] Comment on above: TEST RESULT LIMITSCo enzyme Q10, Total 1.27 ug/mL 0.37-2.20 ____ TESTING PERFORMED AT [facility]. ORIGINAL REPORT ON FILE IN LAB CONTAINS ADDITIONAL TEST SITE INFORMATION. Thyroid Stimulating Hormone (TSH) 1.16 uIU/mL 0.358-3.74 [facility] Vitamin D 25-Hydroxy 60.6 ng/mL [facility] Comment on above: Vitamin D 25(OH) Sta tus Range Deficiency <20 ng/mL (50nmol/L) Insufficiency 20 - 30 ng/mL (50 - 75 nmol/L) Sufficiency 30 - 100 ng/mL (75 - 250 nmol/L) Toxicity >100 ng/mL (>250 nmol/L) Platelets bldOrdered By: Dr. Casiano on 03-07-2022 Platelets (Bld) [#/Vol] 194 10*3/uL 150-450 [facility] Protein Fractions Elph [Inte rp]Ordered By: Dr. Casiano on 03-07-2022 Protein Fractions [Interp] Comment . [facility] Comment on above: Protein electrophore sis scan will follow via computer,mail, or ager operator delivery. Serum Treponema species anti body detectionOrdered By: Dr. Casiano on 03-07-2022 Treponema sp Ab Ql (S) Non-Reactive [facility] Serum albumin to globulin ra amber by protein electrophoresisOrdered By: Dr. Casiano on 03-07-2022 Albumin/Globulin Elph [Mass ratio] 1.5 0.7-1.7 [facility] Serum globulin measurement ( mass/volume)Ordered By: Dr. Casiano on 03-07-2022 Globulin (S) [Mass/Vol] 2.6 g/dL 2.2-3.9 [facility] Serum or plasma albumin rem[place] urement (mass/volume)Ordered By: Dr. Casiano on 03-07-2022 Albumin [Mass/Vol] 3.9 g/dL 3.2-5.0 [facility] Serum or plasma albumin/glob ulin mass ratioOrdered By: Dr. Casiano on 03-07-2022 Albumin/Globulin [Mass ratio] 1.5 {ratio} 0.9-2.4 [facility] Serum or plasma beta globuli n measurement by electrophoresis (mass/volume)Ordered By: Dr. Casiano on 03-07-2022 Beta globulin Elph [Mass/Vol] 1.0 g/dL 0.7-1.3 [facility] Serum or plasma calcium rem[place] urement (mass/volume)Ordered By: Dr. Casiano on 03-07-2022 Calcium [Mass/Vol] 9.6 mg/dL 8.5-10.1 [facility] Serum or plasma creatinine m easurement (mass/volume)Ordered By: Dr. Casiano on 03-07-2022 Creatinine [Mass/Vol] 1.24 mg/dL 0.70-1.30 [facility] Comment on above: The validity of the calculated GFR & GFRAA in patients over 70 years has not been determined. Clinical correlation is essential. Serum or plasma retinol rem[place] urement (mass/volume)Ordered By: Dr. Casiano on 03-07-2022 Retinol [Mass/Vol] 64.6 ug/dL 22.0-69.5 [facility] Comment on above: Reference intervals for vitamin A determined from [facility] studies. Individuals with vitamin A less than 20ug/dL are considered vitamin A deficient and those withserum concentrations less than 10 ug/dL are consideredseverely deficient.This test was developed and its performance characteristicsdetermined by [facility]. It has not been cleared orapproved by the Food and Drug Administration.Performed at: [facility] Lab[address] [id number] Director: Aime Guadalupe PhD, Phone: [phone] at: [facility] Lab[address] [id number] Director: Alfa Kwan MD, Phone: [phone] Serum or plasma urea nitroge n measurement (mass/volume)Ordered By: Dr. Casiano on 03-07-2022 Urea nitrogen [Mass/Vol] 18 mg/dL 7-18 [facility] Thin prep Papanicolaou smear with manual screeningOrdered By: Dr. Casiano on 03-07-2022 Thin prep Papanicolaou smear with manual screening 20 U/L 15-37 [facility] Thin prep Papanicolaou smear with manual screening 9 5-15 [facility] Thin prep Papanicolaou smear with manual screening See comment [facility] Comment on above: NOT OBSERVED Total protein bloodOrdered B y: Dr. Casiano on 03-07-2022 Protein [Mass/Vol] 6.4 g/dL 6.0-8.5 [facility] Laboratory - Chemistry and C hemistry - challengeOrdered By: Yamilet Benavides on 02-13-2022 Natriuretic peptide B (Bld) [Mass/Vol] 26.2 pg/mL 0-100 [facility] Basophil percentageOrdered B y: Yamilet Benavides on 02-12-2022 Bilirubin [Mass/Vol] 0.60 mg/dL 0.20-1.00 [facility] Comment on above: For patients on eltr ombopag therapy, use of Dimension [place] TBIL is not recommended. Cholesterol [Mass/Vol] 163 mg/dL <200 [facility] Comment on above: <200 mg/dL Desirable 200-240 mg/dL Borderline >240 mg/dL High Risk Protein [Mass/Vol] 5.9 g/dL 6.4-8.2 [facility] Triglyceride [Mass/Vol] 127 mg/dL <199 [facility] Comment on above: The drugs N-Acetylcy steine and Metamizole may falsely depress this assay.Serum Triglycerides Reference Interval Normal <150 mg/dL Borderline high 150 - 199 mg/dL High 200 - 499 mg/dL Very High > or = 500 mg/dL Direct bilirubinOrdered By: Yamilet Benavides on 02-12-2022 Bilirubin.direct [Mass/Vol] 0.18 mg/dL 0.00-0.30 [facility] Laboratory - Chemistry and C hemistry - challengeOrdered By: Yamilet Benavides on 02-12-2022 ALP [Catalytic activity/Vol] 57 U/L 45-117 [facility] ALT [Catalytic activity/Vol] 24 U/L 16-61 [facility] Globulin (S) [Mass/Vol] 2.4 g/dL 2.2-4.2 [facility] Serum or plasma albumin [place] urement (mass/volume)Ordered By: Yamilet Benavides on 02-12-2022 Albumin [Mass/Vol] 3.5 g/dL 3.2-5.0 [facility] Serum or plasma cholesterol in HDL measurement (mass/volume)Ordered By: Yamilet Benavides on 02-12-2022 Cholesterol in HDL [Mass/Vol] 47 mg/dL >40 [facility] Comment on above: The drugs N-Acetylcy steine and Metamizole may falsely depress this assay. Reference Range HDL <40 mg/dL Low HDL Cholesterol HDL >or= 60 mg/dL High HDL Cholesterol Serum or plasma cholesterol in VLDL measurement (mass/volume)Ordered By: Yamilet Benavides on 02-12-2022 Cholesterol in VLDL [Mass/Vol] 25 mg/dL 5-40 [facility] Serum or plasma low density lipoprotein (LDL) cholesterol measurement (mass/volume)Ordered By: Yamilet Benavides on 02-12-2022 Cholesterol in LDL [Mass/Vol] 91 mg/dL 0-130 [facility] Thin prep Papanicolaou smear with manual screeningOrdered By: Yamilet Benavides on 02-12-2022 Thin prep Papanicolaou smear with manual screening 16 U/L 15-37 [facility] Absolute lymphocyte countOrd ered By: Dr. Dillard on 02-10-2022 Lymphocytes Auto (Unsp spec) [#/Vol] 1.00 10*3/uL 0.83-4.51 [facility] Basophil percentageOrdered B y: Dr. Dillard on 02-10-2022 Basophils/100 WBC (Bld) 0.5 % 0-1 [facility] Chloride [Moles/Vol] 108 mmol/L 98-107 [facility] Eosinophils/100 WBC (Bld) 2.6 % 0-5 [facility] Glucose [Mass/Vol] 119 mg/dL 74-106 [facility] Comment on above: Fasting Glucose resu lt from 100 to 125 mg/dL suggests IMPAIRED HOMEOSTASIS per A.D.A. criteria. Neutrophils (Bld) [#/Vol] 2.8 10*3/uL 2.0-7.7 [facility] Neutrophils/100 WBC (Bld) 65.1 % 47-70 [facility] Potassium [Moles/Vol] 4.1 mmol/L 3.5-5.1 [facility] Sodium [Moles/Vol] 143 mmol/L 136-145 [facility] WBC (Bld) [#/Vol] 4.2 10*3/uL 4.4-11.0 [facility] Blood erythrocytes count (nu mber/volume)Ordered By: Dr. Dillard on 02-10-2022 RBC (Bld) [#/Vol] 3.94 10*6/uL 4.6-6.2 [facility] Blood hemoglobin measurement (mass/volume)Ordered By: Dr. Dillard on 02-10-2022 Hemoglobin (Bld) [Mass/Vol] 12.9 g/dL 13.0-16.5 [facility] Blood lymphocytes/100 leukoc ytesOrdered By: Dr. Dillard on 02-10-2022 Lymphocytes/100 WBC (Bld) 23.7 % 19-41 [facility] Blood monocytes/100 leukocyt esOrdered By: Dr. Dillard on 02-10-2022 Monocytes/100 WBC (Bld) 7.6 % 0-10 [facility] Blood platelet mean volumeOr dered By: Dr. Dillard on 02-10-2022 Platelet mean volume (Bld) [Entitic vol] 9.9 fL 6.2-12.0 [facility] Determination of erythrocyte mean corpuscular volume (MCV)Ordered By: Dr. Dillard on 02-10-2022 MCV (RBC) [Entitic vol] 99.2 fL 80-94 [facility] Hematocrit Auto (Bld) [Volum e fraction]Ordered By: Dr. Dillard on 02-10-2022 Hematocrit (Bld) [Volume fraction] 39.1 % 40-54 [facility] Laboratory - Chemistry and C hemistry - challengeOrdered By: Dr. Dillard on 02-10-2022 CO2 [Moles/Vol] 30.0 mmol/L 21.0-32.0 [facility] Urea nitrogen/Creatinine [Mass ratio] 17.3 mg/mg 10-20 [facility] Laboratory - Hematology and Cell countsOrdered By: Dr. Dillard on 02-10-2022 Erythrocyte distribution width (RBC) [Entitic vol] 51.8 fL 35.1-43.9 [facility] Erythrocyte distribution width (RBC) [Ratio] 14.2 % 11.6-14.6 [facility] Immature granulocytes/100 WBC (Bld) 0.500 % 0.0-0.9 [facility] Comment on above: IG% - Immature Granu locytes (promyelocytes, myelocytes and metamyelocytes) > 1% indicates that a LEFT SHIFT is Present. MCH (RBC) [Entitic mass] 32.7 pg 27.0-32.0 [facility] Nucleated RBC/100 WBC (Bld) [Ratio] 0 % 0-5 [facility] MCHC Auto (RBC) [Mass/Vol]Or dered By: Dr. Dillard on 02-10-2022 MCHC (RBC) [Mass/Vol] 33.0 g/dL 32-36 [facility] No Panel InformationOrdered By: Dr. Dillard on 02-10-2022 Troponin I High Sensitivity 6 pg/mL 3.0-78.0 [facility] Comment on above: Please Note: New Nathalia t Units and Gender Specific Reference Ranges. For more information see Policy Stat Procedure [place] High Sensitivity Troponin (TNIH) and attachments. Estimated Creatinine Clearance Calc 63.60 ml/min [facility] Estimated GFR (MDRD) Amer 85 mL/min >60 [facility] Comment on above: GFR Calc Estimated GFR (MDRD) Non-Af Amer 70 mL/min >60 [facility] Comment on above: Non- GFR Calc Platelets bldOrdered By: Dr. Dillard on 02-10-2022 Platelets (Bld) [#/Vol] 157 10*3/uL 150-450 [facility] Serum or plasma calcium rem[place] urement (mass/volume)Ordered By: Dr. Dillard on 02-10-2022 Calcium [Mass/Vol] 9.3 mg/dL 8.5-10.1 [facility] Serum or plasma creatinine m easurement (mass/volume)Ordered By: Dr. Dillard on 02-10-2022 Creatinine [Mass/Vol] 1.10 mg/dL 0.70-1.30 [facility] Comment on above: The validity of the calculated GFR & GFRAA in patients over 70 years has not been determined. Clinical correlation is essential. Serum or plasma urea nitroge n measurement (mass/volume)Ordered By: Dr. Dillard on 02-10-2022 Urea nitrogen [Mass/Vol] 19 mg/dL 7-18 [facility] Thin prep Papanicolaou smear with manual screeningOrdered By: Dr. Dillard on 02-10-2022 Thin prep Papanicolaou smear with manual screening 5 5-15 [facility] Basophil percentageOrdered B y: Dr. Casiano on 02-07-2022 Chloride [Moles/Vol] 110 mmol/L 98-107 [facility] Glucose [Mass/Vol] 110 mg/dL 74-106 [facility] Comment on above: Fasting Glucose resu lt from 100 to 125 mg/dL suggests IMPAIRED HOMEOSTASIS per A.D.A. criteria. Potassium [Moles/Vol] 4.1 mmol/L 3.5-5.1 [facility] Sodium [Moles/Vol] 143 mmol/L 136-145 [facility] Laboratory - Chemistry and C hemistry - challengeOrdered By: Dr. Casiano on 02-07-2022 CO2 [Moles/Vol] 28.0 mmol/L 21.0-32.0 [facility] Urea nitrogen/Creatinine [Mass ratio] 12.8 mg/mg 10-20 [facility] No Panel InformationOrdered By: Dr. Casiano on 02-07-2022 Estimated GFR (MDRD) Amer 86 mL/min >60 [facility] Comment on above: GFR Calc Estimated GFR (MDRD) Non-Af Amer 71 mL/min >60 [facility] Comment on above: Non- GFR Calc Serum or plasma calcium rem[place] urement (mass/volume)Ordered By: Dr. Casiano on 02-07-2022 Calcium [Mass/Vol] 8.9 mg/dL 8.5-10.1 [facility] Serum or plasma creatinine m easurement (mass/volume)Ordered By: Dr. Casiano on 02-07-2022 Creatinine [Mass/Vol] 1.09 mg/dL 0.70-1.30 [facility] Comment on above: The validity of the calculated GFR & GFRAA in patients over 70 years has not been determined. Clinical correlation is essential. Serum or plasma urea nitroge n measurement (mass/volume)Ordered By: Dr. Casiano on 02-07-2022 Urea nitrogen [Mass/Vol] 14 mg/dL 7-18 [facility] Thin prep Papanicolaou smear with manual screeningOrdered By: Dr. Casiano on 02-07-2022 Thin prep Papanicolaou smear with manual screening 5 5-15 [facility] Absolute lymphocyte countOrd ered By: Dr. Levine on 01-10-2022 Lymphocytes Auto (Unsp spec) [#/Vol] 1.41 10*3/uL 0.83-4.51 [facility] Basophil percentageOrdered B y: Dr. Levine on 01-10-2022 Basophils/100 WBC (Bld) 0.4 % 0-1 [facility] Bilirubin [Mass/Vol] 0.90 mg/dL 0.20-1.00 [facility] Comment on above: For patients on eltr ombopag therapy, use of Dimension [place] TBIL is not recommended. Chloride [Moles/Vol] 101 mmol/L 98-107 [facility] Eosinophils/100 WBC (Bld) 2.5 % 0-5 [facility] Glucose [Mass/Vol] 76 mg/dL 74-106 [facility] Neutrophils (Bld) [#/Vol] 4.7 10*3/uL 2.0-7.7 [facility] Neutrophils/100 WBC (Bld) 68.0 % 47-70 [facility] Potassium [Moles/Vol] 3.1 mmol/L 3.5-5.1 [facility] Protein [Mass/Vol] 7.0 g/dL 6.4-8.2 [facility] Sodium [Moles/Vol] 139 mmol/L 136-145 [facility] WBC (Bld) [#/Vol] 6.9 10*3/uL 4.4-11.0 [facility] Blood erythrocytes count (nu mber/volume)Ordered By: Dr. Levine on 01-10-2022 RBC (Bld) [#/Vol] 4.06 10*6/uL 4.6-6.2 [facility] Blood hemoglobin measurement (mass/volume)Ordered By: Dr. Levine on 01-10-2022 Hemoglobin (Bld) [Mass/Vol] 12.8 g/dL 13.0-16.5 [facility] Blood lymphocytes/100 leukoc ytesOrdered By: Dr. Levine on 01-10-2022 Lymphocytes/100 WBC (Bld) 20.6 % 19-41 [facility] Blood monocytes/100 leukocyt esOrdered By: Dr. Levine on 01-10-2022 Monocytes/100 WBC (Bld) 7.9 % 0-10 [facility] Blood platelet mean volumeOr dered By: Dr. Levine on 01-10-2022 Platelet mean volume (Bld) [Entitic vol] 9.6 fL 6.2-12.0 [facility] Determination of erythrocyte mean corpuscular volume (MCV)Ordered By: Dr. Levine on 01-10-2022 MCV (RBC) [Entitic vol] 96.6 fL 80-94 [facility] Hematocrit Auto (Bld) [Volum e fraction]Ordered By: Dr. Levine on 01-10-2022 Hematocrit (Bld) [Volume fraction] 39.2 % 40-54 [facility] Laboratory - Chemistry and C hemistry - challengeOrdered By: Dr. Levine on 01-10-2022 ALP [Catalytic activity/Vol] 74 U/L 45-117 [facility] ALT [Catalytic activity/Vol] 33 U/L 16-61 [facility] CO2 [Moles/Vol] 32.0 mmol/L 21.0-32.0 [facility] Globulin (S) [Mass/Vol] 3.0 g/dL 2.2-4.2 [facility] Urea nitrogen/Creatinine [Mass ratio] 15.8 mg/mg 10-20 [facility] Laboratory - Hematology and Cell countsOrdered By: Dr. Levine on 01-10-2022 Erythrocyte distribution width (RBC) [Entitic vol] 48.6 fL 35.1-43.9 [facility] Erythrocyte distribution width (RBC) [Ratio] 13.8 % 11.6-14.6 [facility] Immature granulocytes/100 WBC (Bld) 0.600 % 0.0-0.9 [facility] Comment on above: IG% - Immature Granu locytes (promyelocytes, myelocytes and metamyelocytes) > 1% indicates that a LEFT SHIFT is Present. MCH (RBC) [Entitic mass] 31.5 pg 27.0-32.0 [facility] Nucleated RBC/100 WBC (Bld) [Ratio] 0 % 0-5 [facility] MCHC Auto (RBC) [Mass/Vol]Or dered By: Dr. Levine on 01-10-2022 MCHC (RBC) [Mass/Vol] 32.7 g/dL 32-36 [facility] No Panel InformationOrdered By: Dr. Levine on 01-10-2022 Estimated GFR (MDRD) Amer 81 mL/min >60 [facility] Comment on above: GFR Calc Estimated GFR (MDRD) Non-Af Amer 67 mL/min >60 [facility] Comment on above: Non- GFR Calc Hepatitis B Surface Antigen Non-Reactive Nonreactive [facility] Hepatitis C Antibody Non-Reactive Nonreactive [facility] Comment on above: Non Reactive: < 0.8 Equivocal: >/= 0.8 to < 1.0 Reactive: >/= 1.0The CDC recommends that a reactive/equivocal HCV antibody result be followed up by the HCV Nucleic Acid Amplificationtest (199639) Platelets bldOrdered By: Dr. Levine on 01-10-2022 Platelets (Bld) [#/Vol] 203 10*3/uL 150-450 [facility] Serum cyclic citrullinated p eptide IgG antibody assay (units/volume)Ordered By: Dr. Levine on 01-10-2022 Cyclic citrullinated peptide IgG Qn 2 units 0-19 [facility] Comment on above: Negative <20 Weak po sitive 20 - 39 Moderate positive 40 - 59 Strong positive >59Performed at: [facility] [id number] Director: Alfa Kwan MD, Phone: [phone] Serum hepatitis B virus surf joseph antibody IgG detectionOrdered By: Dr. Levine on 01-10-2022 HBV surface IgG Ql (S) Non-Reactive [facility] Comment on above: Non Reactive: Incons istent with immunity less than <10 mIU/mL Reactive: Consistent with immunity greater than or equal to 10 mIU/mL Serum or plasma albumin rem[place] urement (mass/volume)Ordered By: Dr. Levine on 01-10-2022 Albumin [Mass/Vol] 4.0 g/dL 3.2-5.0 [facility] Serum or plasma albumin/glob ulin mass ratioOrdered By: Dr. Levine on 01-10-2022 Albumin/Globulin [Mass ratio] 1.3 {ratio} 0.9-2.4 [facility] Serum or plasma calcium remington urement (mass/volume)Ordered By: Dr. Levine on 01-10-2022 Calcium [Mass/Vol] 9.1 mg/dL 8.5-10.1 [facility] Serum or plasma creatinine m easurement (mass/volume)Ordered By: Dr. Levine on 01-10-2022 Creatinine [Mass/Vol] 1.14 mg/dL 0.70-1.30 [facility] Comment on above: The validity of the calculated GFR & GFRAA in patients over 70 years has not been determined. Clinical correlation is essential. Serum or plasma urea nitroge n measurement (mass/volume)Ordered By: Dr. Levine on 01-10-2022 Urea nitrogen [Mass/Vol] 18 mg/dL 7-18 [facility] Serum rheumatoid factor dete ctionOrdered By: Dr. Levine on 01-10-2022 Rheumatoid factor Ql (S) < 10.0 IU/mL <15 [facility] Thin prep Papanicolaou smear with manual screeningOrdered By: Dr. Levine on 01-10-2022 Thin prep Papanicolaou smear with manual screening 18 U/L 15-37 [facility] Thin prep Papanicolaou smear with manual screening 6 5-15 [facility] Absolute lymphocyte countOrd ered By: Dr. Villarreal on 12-18-2021 Lymphocytes Auto (Unsp spec) [#/Vol] 1.15 10*3/uL 0.83-4.51 [facility] Basophil percentageOrdered B y: Dr. Villarreal on 12-18-2021 Basophils/100 WBC (Bld) 0.7 % 0-1 [facility] Chloride [Moles/Vol] 104 mmol/L 98-107 [facility] Eosinophils/100 WBC (Bld) 3.0 % 0-5 [facility] Glucose [Mass/Vol] 100 mg/dL 74-106 [facility] Comment on above: Fasting Glucose resu lt from 100 to 125 mg/dL suggests IMPAIRED HOMEOSTASIS per A.D.A. criteria. Neutrophils (Bld) [#/Vol] 3.8 10*3/uL 2.0-7.7 [facility] Neutrophils/100 WBC (Bld) 67.2 % 47-70 [facility] Potassium [Moles/Vol] 3.6 mmol/L 3.5-5.1 [facility] Sodium [Moles/Vol] 140 mmol/L 136-145 [facility] WBC (Bld) [#/Vol] 5.7 10*3/uL 4.4-11.0 [facility] Blood erythrocytes count (nu mber/volume)Ordered By: Dr. Villarreal on 12-18-2021 RBC (Bld) [#/Vol] 3.80 10*6/uL 4.6-6.2 [facility] Blood hemoglobin measurement (mass/volume)Ordered By: Dr. Villarreal on 12-18-2021 Hemoglobin (Bld) [Mass/Vol] 12.2 g/dL 13.0-16.5 [facility] Blood lymphocytes/100 leukoc ytesOrdered By: Dr. Villarreal on 12-18-2021 Lymphocytes/100 WBC (Bld) 20.4 % 19-41 [facility] Blood monocytes/100 leukocyt esOrdered By: Dr. Villarreal on 12-18-2021 Monocytes/100 WBC (Bld) 8.3 % 0-10 [facility] Blood platelet mean volumeOr dered By: Dr. Villarreal on 12-18-2021 Platelet mean volume (Bld) [Entitic vol] 9.2 fL 6.2-12.0 [facility] Determination of erythrocyte mean corpuscular volume (MCV)Ordered By: Dr. Villarreal on 12-18-2021 MCV (RBC) [Entitic vol] 96.1 fL 80-94 [facility] Hematocrit Auto (Bld) [Volum e fraction]Ordered By: Dr. Villarreal on 12-18-2021 Hematocrit (Bld) [Volume fraction] 36.5 % 40-54 [facility] Laboratory - Chemistry and C hemistry - challengeOrdered By: Dr. Villarreal on 12-18-2021 CO2 [Moles/Vol] 30.0 mmol/L 21.0-32.0 [facility] Urea nitrogen/Creatinine [Mass ratio] 14.0 mg/mg 10-20 [facility] Laboratory - Hematology and Cell countsOrdered By: Dr. Villarreal on 12-18-2021 Erythrocyte distribution width (RBC) [Entitic vol] 48.2 fL 35.1-43.9 [facility] Erythrocyte distribution width (RBC) [Ratio] 13.8 % 11.6-14.6 [facility] Immature granulocytes/100 WBC (Bld) 0.400 % 0.0-0.9 [facility] Comment on above: IG% - Immature Granu locytes (promyelocytes, myelocytes and metamyelocytes) > 1% indicates that a LEFT SHIFT is Present. MCH (RBC) [Entitic mass] 32.1 pg 27.0-32.0 [facility] Nucleated RBC/100 WBC (Bld) [Ratio] 0 % 0-5 [facility] MCHC Auto (RBC) [Mass/Vol]Or dered By: Dr. Villarreal on 12-18-2021 MCHC (RBC) [Mass/Vol] 33.4 g/dL 32-36 [facility] No Panel InformationOrdered By: Dr. Villarreal on 12-18-2021 Estimated Creatinine Clearance Calc 54.23 ml/min [facility] Estimated GFR (MDRD) Amer 71 mL/min >60 [facility] Comment on above: GFR Calc Estimated GFR (MDRD) Non-Af Amer 58 mL/min >60 [facility] Comment on above: Non- GFR Calc Troponin I High Sensitivity 6 pg/mL 3.0-78.0 [facility] Comment on above: Please Note: New Nathalia t Units and Gender Specific Reference Ranges. For more information see Policy Stat Procedure [place] High Sensitivity Troponin (TNIH) and attachments. Platelets bldOrdered By: Dr. Villarreal on 12-18-2021 Platelets (Bld) [#/Vol] 160 10*3/uL 150-450 [facility] Serum or plasma calcium remington urement (mass/volume)Ordered By: Dr. Villarreal on 12-18-2021 Calcium [Mass/Vol] 9.5 mg/dL 8.5-10.1 [facility] Serum or plasma creatinine m easurement (mass/volume)Ordered By: Dr. Villarreal on 12-18-2021 Creatinine [Mass/Vol] 1.29 mg/dL 0.70-1.30 [facility] Comment on above: The validity of the calculated GFR & GFRAA in patients over 70 years has not been determined. Clinical correlation is essential. Serum or plasma urea nitroge n measurement (mass/volume)Ordered By: Dr. Villarreal on 12-18-2021 Urea nitrogen [Mass/Vol] 18 mg/dL 7-18 [facility] Thin prep Papanicolaou smear with manual screeningOrdered By: Dr. Villarreal on 12-18-2021 Thin prep Papanicolaou smear with manual screening 6 5-15 [facility] Atypical perinuclear antineu trophil cytoplasmic antibodies measurementOrdered By: Dr. Casiano on 11-21-2021 Neutrophil cytoplasmic Ab.perinuclear.atypical IF (S) [Titer] <1:20 titer Neg:<1:20 [facility] Comment on above: The atypical pANCA p attern has been observed in asignificant percentage of patients with ulcerative colitis,primary sclerosing cholangitis and autoimmune hepatitis.Performed at: - [facility] [address] [id number] Director: Aime Guadalupe PhD, Phone: [phone] Basophil percentageOrdered B y: Dr. Casiano on 11-21-2021 Basophil percentage 0.2 AI 0.0-0.9 [facility] Basophil percentage < 0.2 AI 0.0-0.9 [facility] Bilirubin [Mass/Vol] 0.90 mg/dL 0.20-1.00 [facility] Comment on above: For patients on eltr ombopag therapy, use of Dimension [place] TBIL is not recommended. Chloride [Moles/Vol] 106 mmol/L 98-107 [facility] Cholesterol [Mass/Vol] 136 mg/dL <200 [facility] Comment on above: <200 mg/dL Desirable 200-240 mg/dL Borderline >240 mg/dL High Risk Glucose [Mass/Vol] 88 mg/dL 74-106 [facility] Potassium [Moles/Vol] 3.8 mmol/L 3.5-5.1 [facility] Protein [Mass/Vol] 6.9 g/dL 6.4-8.2 [facility] Sodium [Moles/Vol] 141 mmol/L 136-145 [facility] Laboratory - Chemistry and C hemistry - challengeOrdered By: Dr. Casiano on 11-21-2021 Albumin [Mass/Vol] 4.1 g/dL 2.9-4.4 [facility] ALP [Catalytic activity/Vol] 69 U/L 45-117 [facility] ALT [Catalytic activity/Vol] 30 U/L 16-61 [facility] CK [Catalytic activity/Vol] 111 U/L 39-308 [facility] CO2 [Moles/Vol] 30.0 mmol/L 21.0-32.0 [facility] Globulin (S) [Mass/Vol] 3.1 g/dL 2.2-4.2 [facility] Magnesium [Mass/Vol] 2.3 mg/dL 1.6-2.6 [facility] Urea nitrogen/Creatinine [Mass ratio] 16.5 mg/mg 10-20 [facility] No Panel InformationOrdered By: Dr. Casiano on 11-21-2021 Addendum Document Comment . [facility] Comment on above: The SPE pattern appe ars unremarkable. Evidence ofmonoclonal protein is not apparent. Qyfgz-9-Ljuvpjaqq 0.3 g/dL 0.0-0.4 [facility] Bqifl-3-Suzlfmkou 0.6 g/dL 0.4-1.0 [facility] Centromere B Antibody <0.2 AI 0.0-0.9 [facility] Estimated GFR (MDRD) Amer 86 mL/min >60 [facility] Comment on above: GFR Calc Estimated GFR (MDRD) Non-Af Amer 71 mL/min >60 [facility] Comment on above: Non- GFR Calc Gamma Globulins 0.7 g/dL 0.4-1.8 [facility] COATER Antibody <0.2 AI 0.0-0.9 [facility] Vitamin D 25-Hydroxy 43.6 ng/mL [facility] Comment on above: Vitamin D 25(OH) Sta tus Range Deficiency <20 ng/mL (50nmol/L) Insufficiency 20 - 30 ng/mL (50 - 75 nmol/L) Sufficiency 30 - 100 ng/mL (75 - 250 nmol/L) Toxicity >100 ng/mL (>250 nmol/L) Protein Fractions Elph [Inte rp]Ordered By: Dr. Casiano on 11-21-2021 Protein Fractions [Interp] Comment . [facility] Comment on above: Protein electrophore sis scan will follow via computer,mail, or ager operator delivery. Serum DNA double strand anti body assay (units/volume)Ordered By: Dr. Casiano on 11-21-2021 DNA double strand Ab Qn (S) [IU]/mL 0-9 [facility] Comment on above: Negative <5 Equivoca l 5 - 9 Positive >9 Serum Lorelei-1 antibody assay (u nits/volume)Ordered By: Dr. Casiano on 11-21-2021 Lorelei-1 extractable nuclear Ab Qn (S) <0.2 AI 0.0-0.9 [facility] Serum Scl-70 extractable nuc lear antibody assay (units/volume)Ordered By: Dr. Casiano on 11-21-2021 SCL-70 extractable nuclear Ab Qn (S) <0.2 AI 0.0-0.9 [facility] Serum Oh extractable nucl ear antibody detectionOrdered By: Dr. Casiano on 11-21-2021 Oh extractable nuclear Ab Ql (S) <0.2 AI 0.0-0.9 [facility] Serum albumin to globulin ra amber by protein electrophoresisOrdered By: Dr. Casiano on 11-21-2021 Albumin/Globulin Elph [Mass ratio] 1.6 0.7-1.7 [facility] Serum classic neutrophil cyt oplasmic antibody assay (units/volume)Ordered By: Dr. Casiano on 11-21-2021 Neutrophil cytoplasmic Ab.classic Qn (S) Comment titer Neg:<1:20 [facility] Comment on above: Results are Indeterm inate. Serum globulin measurement ( mass/volume)Ordered By: Dr. Casiano on 11-21-2021 Globulin (S) [Mass/Vol] 2.6 g/dL 2.2-3.9 [facility] Serum or plasma C reactive p rotein measurement (mass/volume)Ordered By: Dr. Casiano on 11-21-2021 CRP [Mass/Vol] mg/L 0.0-3.0 [facility] Comment on above: C-Reactive Protein ( CRP) provides useful information for thediagnosis, therapy and monitoring of inflammatory processesand associated diseases. For the evaluation of Relative Riskfor Cardiovascular Disease, a High Sensitivity CRP (HSCRP)should be ordered. Serum or plasma albumin remington urement (mass/volume)Ordered By: Dr. Casiano on 11-21-2021 Albumin [Mass/Vol] 3.8 g/dL 3.2-5.0 [facility] Serum or plasma albumin/glob ulin mass ratioOrdered By: Dr. Casiano on 11-21-2021 Albumin/Globulin [Mass ratio] 1.2 {ratio} 0.9-2.4 [facility] Serum or plasma beta globuli n measurement by electrophoresis (mass/volume)Ordered By: Dr. Casiano on 11-21-2021 Beta globulin Elph [Mass/Vol] 1.0 g/dL 0.7-1.3 [facility] Serum or plasma calcium remington urement (mass/volume)Ordered By: Dr. Casiano on 11-21-2021 Calcium [Mass/Vol] 9.6 mg/dL 8.5-10.1 [facility] Serum or plasma cholesterol in HDL measurement (mass/volume)Ordered By: Dr. Casiano on 11-21-2021 Cholesterol in HDL [Mass/Vol] 46 mg/dL >40 [facility] Comment on above: The drugs N-Acetylcy steine and Metamizole may falsely depress this assay. Reference Range HDL <40 mg/dL Low HDL Cholesterol HDL >or= 60 mg/dL High HDL Cholesterol Serum or plasma creatinine m easurement (mass/volume)Ordered By: Dr. Casiano on 11-21-2021 Creatinine [Mass/Vol] 1.09 mg/dL 0.70-1.30 [facility] Comment on above: The validity of the calculated GFR & GFRAA in patients over 70 years has not been determined. Clinical correlation is essential. Serum or plasma urea nitroge n measurement (mass/volume)Ordered By: Dr. Casiano on 11-21-2021 Urea nitrogen [Mass/Vol] 18 mg/dL 7-18 [facility] Serum perinuclear neutrophil cytoplasmic antibody titer by immunofluorescenceOrdered By: Dr. Casiano on 11-21-2021 Neutrophil cytoplasmic Ab.perinuclear IF (S) [Titer] <1:20 titer Neg:<1:20 [facility] Comment on above: The presence of posi tive fluorescence exhibiting P-ANCA orC-ANCA patterns alone is not specific for the diagnosis ofWegener's Granulomatosis (WG) or microscopic polyangiitis.Decisions about treatment should not be based solely onANCA IFA results. The [employer] ANCA [employer] Consensusrecommends follow up testing of positive sera with both NJ-3 and MPO-ANCA enzyme immunoassays. As many as 5% serumsamples are positive only by EIA. Ref. AM J Clin [id number];111:507-513. Thin prep Papanicolaou smear with manual screeningOrdered By: Dr. Casiano on 11-21-2021 Thin prep Papanicolaou smear with manual screening 20 U/L 15-37 [facility] Thin prep Papanicolaou smear with manual screening 5 5-15 [facility] Thin prep Papanicolaou smear with manual screening See comment [facility] Comment on above: Result: Not Observed Total protein bloodOrdered B y: Dr. Casiano on 11-21-2021 Protein [Mass/Vol] 6.7 g/dL 6.0-8.5 [facility] Absolute lymphocyte counton 08-16-2021 Lymphocytes Auto (Unsp spec) [#/Vol] 1.15 10*3/uL 0.83-4.51 [facility] Work Phone: Basophil percentageon 2021 Ammonia (P) [Moles/Vol] 23.0 umol/L 11-32 [facility] Work Phone: Basophils/100 WBC (Bld) 0.6 % 0-1 [facility] Work Phone: Bilirubin [Mass/Vol] 1.00 mg/dL 0.20-1.00 [facility] Work Phone: Comment on above: For patients on eltr ombopag therapy, use of Dimension [place] TBIL is not recommended. Chloride [Moles/Vol] 103 mmol/L 98-107 [facility] Work Phone: Eosinophils/100 WBC (Bld) 2.3 % 0-5 [facility] Work Phone: Glucose [Mass/Vol] 89 mg/dL 74-106 [facility] Work Phone: Neutrophils (Bld) [#/Vol] 3.6 10*3/uL 2.0-7.7 [facility] Work Phone: Neutrophils/100 WBC (Bld) 67.2 % 47-70 [facility] Work Phone: Potassium [Moles/Vol] 3.6 mmol/L 3.5-5.1 [facility] Work Phone: Protein [Mass/Vol] 6.7 g/dL 6.4-8.2 [facility] Work Phone: Sodium [Moles/Vol] 139 mmol/L 136-145 [facility] Work Phone: WBC (Bld) [#/Vol] 5.3 10*3/uL 4.4-11.0 [facility] Work Phone: Cholesterol [Mass/Vol] 123 mg/dL <200 [facility] Work Phone: Comment on above: <200 mg/dL Desirable 200-240 mg/dL Borderline >240 mg/dL High Risk Triglyceride [Mass/Vol] 101 mg/dL <199 [facility] Work Phone: Comment on above: The drugs N-Acetylcy steine and Metamizole may falsely depress this assay.Serum Triglycerides Reference Interval Normal <150 mg/dL Borderline high 150 - 199 mg/dL High 200 - 499 mg/dL Very High > or = 500 mg/dL Blood erythrocytes count (nu mber/volume)on 08-16-2021 RBC (Bld) [#/Vol] 3.56 10*6/uL 4.6-6.2 [facility] Work Phone: [phone] Blood hemoglobin measurement (mass/volume)on 08-16-2021 Hemoglobin (Bld) [Mass/Vol] 11.3 g/dL 13.0-16.5 [facility] Work Phone: Blood lymphocytes/100 leukoc yteson 08-16-2021 Lymphocytes/100 WBC (Bld) 21.6 % 19-41 [facility] Work Phone: [phone] Blood monocytes/100 leukocyt eson 08-16-2021 Monocytes/100 WBC (Bld) 8.1 % 0-10 [facility] Work Phone: [phone] Blood platelet mean volumeon 08-16-2021 Platelet mean volume (Bld) [Entitic vol] 9.7 fL 6.2-12.0 [facility] Work Phone: [phone] Determination of erythrocyte mean corpuscular volume (MCV)on 08-16-2021 MCV (RBC) [Entitic vol] 94.9 fL 80-94 [facility] Work Phone: [phone] Direct bilirubinon Bilirubin.direct [Mass/Vol] 0.27 mg/dL 0.00-0.30 [facility] Work Phone: [phone] Hematocrit Auto (Bld) [Volum e fraction]on 08-16-2021 Hematocrit (Bld) [Volume fraction] 33.8 % 40-54 [facility] Work Phone: [phone] Interpretation of Borrelia b urgdorferi antibody assayon 08-16-2021 B. burgdorferi Ab (S) [Interp] REF LAB [facility] Work Phone: [phone] Laboratory - Chemistry and C hemistry - challengeon 08-16-2021 ALP [Catalytic activity/Vol] 68 U/L 45-117 [facility] Work Phone: [phone] ALT [Catalytic activity/Vol] 33 U/L 16-61 [facility] Work Phone: [phone] CK [Catalytic activity/Vol] 139 U/L 39-308 [facility] Work Phone: [phone] CO2 [Moles/Vol] 30.0 mmol/L 21.0-32.0 [facility] Work Phone: [phone] Globulin (S) [Mass/Vol] 2.7 g/dL 2.2-4.2 [facility] Work Phone: [phone] Urea nitrogen/Creatinine [Mass ratio] 17.0 mg/mg 10-20 [facility] Work Phone: [phone] Laboratory - Hematology and Cell countson 08-16-2021 Erythrocyte distribution width (RBC) [Entitic vol] 49.2 fL 35.1-43.9 [facility] Work Phone: [phone] Erythrocyte distribution width (RBC) [Ratio] 14.1 % 11.6-14.6 [facility] Work Phone: [phone] Immature granulocytes/100 WBC (Bld) 0.200 % 0.0-0.9 [facility] Work Phone: [phone] Comment on above: IG% - Immature Granu locytes (promyelocytes, myelocytes and metamyelocytes) > 1% indicates that a LEFT SHIFT is Present. MCH (RBC) [Entitic mass] 31.7 pg 27.0-32.0 [facility] Work Phone: [phone] Nucleated RBC/100 WBC (Bld) [Ratio] 0 % 0-5 [facility] Work Phone: MCHC Auto (RBC) [Mass/Vol]on 08-16-2021 MCHC (RBC) [Mass/Vol] 33.4 g/dL 32-36 [facility] Work Phone: No Panel Informationon 08-16 Estimated GFR (MDRD) Amer 89 mL/min >60 [facility] Work Phone: [phone] Comment on above: GFR Calc Estimated GFR (MDRD) Non-Af Amer 73 mL/min >60 [facility] Work Phone: Comment on above: Non- GFR Calc Miscellaneous Test See comment [facility] Work Phone: Comment on above: TEST RESULT LIMITSCo enzyme Q10 (Leukocytes) 125 pmol/mg protein 66 - 183 TESTING PERFORMED AT [facility]. ORIGINAL REPORT ON FILE IN LAB CONTAINS ADDITIONAL TEST SITE INFORMATION. Thyroid Stimulating Hormone (TSH) 1.03 uIU/mL 0.358-3.74 [facility] Work Phone: Platelets bldon 08-16-2021 Platelets (Bld) [#/Vol] 145 10*3/uL 150-450 [facility] Work Phone: [phone] Serum or plasma C reactive p rotein measurement (mass/volume)on 08-16-2021 CRP [Mass/Vol] mg/L 0.0-3.0 [facility] Work Phone: Comment on above: C-Reactive Protein ( CRP) provides useful information for thediagnosis, therapy and monitoring of inflammatory processesand associated diseases. For the evaluation of Relative Riskfor Cardiovascular Disease, a High Sensitivity CRP (HSCRP)should be ordered. Serum or plasma albumin remington urement (mass/volume)on 08-16-2021 Albumin [Mass/Vol] 4.0 g/dL 3.2-5.0 [facility] Work Phone: Serum or plasma albumin/glob ulin mass ratioon 08-16-2021 Albumin/Globulin [Mass ratio] 1.5 {ratio} 0.9-2.4 [facility] Work Phone: Serum or plasma calcium remington urement (mass/volume)on 08-16-2021 Calcium [Mass/Vol] 9.1 mg/dL 8.5-10.1 [facility] Work Phone: Serum or plasma cholesterol in HDL measurement (mass/volume)on 08-16-2021 Cholesterol in HDL [Mass/Vol] 47 mg/dL >40 [facility] Work Phone: Comment on above: The drugs N-Acetylcy steine and Metamizole may falsely depress this assay. Reference Range HDL <40 mg/dL Low HDL Cholesterol HDL >or= 60 mg/dL High HDL Cholesterol Serum or plasma cholesterol in VLDL measurement (mass/volume)on 08-16-2021 Cholesterol in VLDL [Mass/Vol] 20 mg/dL 5-40 [facility] Work Phone: Serum or plasma creatinine m easurement (mass/volume)on 08-16-2021 Creatinine [Mass/Vol] 1.06 mg/dL 0.70-1.30 [facility] Work Phone: Comment on above: The validity of the calculated GFR & GFRAA in patients over 70 years has not been determined. Clinical correlation is essential. Serum or plasma low density lipoprotein (LDL) cholesterol measurement (mass/volume)on 08-16-2021 Cholesterol in LDL [Mass/Vol] 56 mg/dL 0-130 [facility] Work Phone: Serum or plasma urea nitroge n measurement (mass/volume)on 08-16-2021 Urea nitrogen [Mass/Vol] 18 mg/dL 7-18 [facility] Work Phone: Thin prep Papanicolaou smear with manual screeningon 08-16-2021 Thin prep Papanicolaou smear with manual screening 25 U/L 15-37 [facility] Work Phone: Thin prep Papanicolaou smear with manual screening 6 5-15 [facility] Work Phone: Thin prep Papanicolaou smear with manual screening Negative Negative [facility] Work Phone: Comment on above: Lyme Antibody Negati veNo laboratory evidence of infection with B. burgdorferi(Lyme disease). Negative results may occur in patientsrecently infected (greater than or equal to 14 days) withB. burgdorferi. If recent infection is suspected, repeattesting on a new sample collected in 7 to 14 days isrecommended.Performed at: [place] [id number] Director: Aime Guadalupe PhD, Phone: [phone] Laboratory - Microbiology an d Antimicrobial susceptibilityon 06-28-2021 SARS-CoV-2 (COVID-19) RNA KASIE+probe Ql (Unsp spec) Not detected Not Detect [facility] Work Phone: Comment on above: Normal Reference Ran ge: Not DetectedMethod:(RT-PCR) real-time reverse transcriptase PCRLuminex HOMERO Instrument*The Food and Drug Administration (FDA) has issued an Emergency Use Authorization (EAU) for the HOMERO SARS-CoV-2 Assay for the rapid detection of [...] percentageon 2021 Basophil percentage 2.8 mg/dL 2.5-4.9 [facility] Work Phone: Bilirubin [Mass/Vol] 0.80 mg/dL 0.20-1.00 [facility] Work Phone: [phone] Comment on above: For patients on eltr ombopag therapy, use of Dimension [place] TBIL is not recommended. Protein [Mass/Vol] 5.4 g/dL 6.4-8.2 [facility] Work Phone: [phone] Chloride [Moles/Vol] 102 mmol/L 98-107 [facility] Work Phone: [phone] Glucose [Mass/Vol] 138 mg/dL 74-106 [facility] Work Phone: [phone] Comment on above: Fasting Glucose resu lt greater than or equal to 126 mg/dL suggests DIABETES MELLITUS per A.D.A. criteria. Potassium [Moles/Vol] 3.3 mmol/L 3.5-5.1 [facility] Work Phone: [phone] Sodium [Moles/Vol] 135 mmol/L 136-145 [facility] Work Phone: [phone] WBC (Bld) [#/Vol] 6.2 10*3/uL 4.4-11.0 [facility] Work Phone: [phone] Blood erythrocytes count (nu mber/volume)on 06-13-2021 RBC (Bld) [#/Vol] 3.07 10*6/uL 4.6-6.2 [facility] Work Phone: [phone] Blood hemoglobin measurement (mass/volume)on 06-13-2021 Hemoglobin (Bld) [Mass/Vol] 10.2 g/dL 13.0-16.5 [facility] Work Phone: [phone] Blood platelet mean volumeon 06-13-2021 Platelet mean volume (Bld) [Entitic vol] 9.4 fL 6.2-12.0 [facility] Work Phone: [phone] Determination of erythrocyte mean corpuscular volume (MCV)on 06-13-2021 MCV (RBC) [Entitic vol] 98.0 fL 80-94 [facility] Work Phone: Direct bilirubinon Bilirubin.direct [Mass/Vol] 0.22 mg/dL 0.00-0.30 [facility] Work Phone: Hematocrit Auto (Bld) [Volum e fraction]on 06-13-2021 Hematocrit (Bld) [Volume fraction] 30.1 % 40-54 [facility] Work Phone: Laboratory - Chemistry and C hemistry - challengeon 06-13-2021 ALP [Catalytic activity/Vol] 49 U/L 45-117 [facility] Work Phone: ALT [Catalytic activity/Vol] 27 U/L 16-61 [facility] Work Phone: [phone] Globulin (S) [Mass/Vol] 2.4 g/dL 2.2-4.2 [facility] Work Phone: [phone] Magnesium [Mass/Vol] 2.1 mg/dL 1.6-2.6 [facility] Work Phone: [phone] CO2 [Moles/Vol] 26.0 mmol/L 21.0-32.0 [facility] Work Phone: Urea nitrogen/Creatinine [Mass ratio] 17.1 mg/mg 10-20 [facility] Work Phone: Laboratory - Hematology and Cell countson 06-13-2021 Erythrocyte distribution width (RBC) [Entitic vol] 48.2 fL 35.1-43.9 [facility] Work Phone: [phone] Erythrocyte distribution width (RBC) [Ratio] 13.5 % 11.6-14.6 [facility] Work Phone: [phone] MCH (RBC) [Entitic mass] 33.2 pg 27.0-32.0 [facility] Work Phone: MCHC Auto (RBC) [Mass/Vol]on 06-13-2021 MCHC (RBC) [Mass/Vol] 33.9 g/dL 32-36 [facility] Work Phone: No Panel Informationon 06-13 Troponin I High Sensitivity 6 pg/mL 3.0-78.0 [facility] Work Phone: Comment on above: Please Note: New Nathalia t Units and Gender Specific Reference Ranges. For more information see Policy Stat Procedure [place] High Sensitivity Troponin (TNIH) and attachments. Estimated Creatinine Clearance Calc 70.97 ml/min [facility] Work Phone: Estimated GFR (MDRD) Amer 95 mL/min >60 [facility] Work Phone: Comment on above: GFR Calc Estimated GFR (MDRD) Non-Af Amer 79 mL/min >60 [facility] Work Phone: Comment on above: Non- GFR Calc Platelets bldon 06-13-2021 Platelets (Bld) [#/Vol] 144 10*3/uL 150-450 [facility] Work Phone: Serum or plasma albumin remingtno urement (mass/volume)on 06-13-2021 Albumin [Mass/Vol] 3.0 g/dL 3.2-5.0 [facility] Work Phone: Serum or plasma calcium remington urement (mass/volume)on 06-13-2021 Calcium [Mass/Vol] 7.4 mg/dL 8.5-10.1 [facility] Work Phone: Serum or plasma creatinine m easurement (mass/volume)on 06-13-2021 Creatinine [Mass/Vol] 1.00 mg/dL 0.70-1.30 [facility] Work Phone: Comment on above: The validity of the calculated GFR & GFRAA in patients over 70 years has not been determined. Clinical correlation is essential. Serum or plasma urea nitroge n measurement (mass/volume)on 06-13-2021 Urea nitrogen [Mass/Vol] 17 mg/dL 7-18 [facility] Work Phone: Thin prep Papanicolaou smear with manual screeningon 06-13-2021 Thin prep Papanicolaou smear with manual screening 24 U/L 15-37 [facility] Work Phone: Thin prep Papanicolaou smear with manual screening 7 5-15 [facility] Work Phone: Basophil percentageon 2021 Bilirubin [Mass/Vol] 0.70 mg/dL 0.20-1.00 [facility] Work Phone: [phone] Comment on above: For patients on eltr ombopag therapy, use of Dimension [place] TBIL is not recommended. Cholesterol [Mass/Vol] 222 mg/dL <200 [facility] Work Phone: [phone] Comment on above: <200 mg/dL Desirable 200-240 mg/dL Borderline >240 mg/dL High Risk Protein [Mass/Vol] 6.6 g/dL 6.4-8.2 [facility] Work Phone: [phone] Triglyceride [Mass/Vol] 164 mg/dL <199 [facility] Work Phone: [phone] Comment on above: The drugs N-Acetylcy steine and Metamizole may falsely depress this assay.Serum Triglycerides Reference Interval Normal <150 mg/dL Borderline high 150 - 199 mg/dL High 200 - 499 mg/dL Very High > or = 500 mg/dL Direct bilirubinon Bilirubin.direct [Mass/Vol] 0.17 mg/dL 0.00-0.30 [facility] Work Phone: [phone] Laboratory - Chemistry and C hemistry - challengeon 05-17-2021 ALP [Catalytic activity/Vol] 74 U/L 45-117 [facility] Work Phone: [phone] [Catalytic activity/Vol] 34 U/L 16-61 [facility] Work Phone: [phone] Globulin (S) [Mass/Vol] 2.8 g/dL 2.2-4.2 [facility] Work Phone: [phone] Serum or plasma albumin remington urement (mass/volume)on 05-17-2021 Albumin [Mass/Vol] 3.8 g/dL 3.2-5.0 [facility] Work Phone: [phone] Serum or plasma cholesterol in HDL measurement (mass/volume)on 05-17-2021 Cholesterol in HDL [Mass/Vol] 38 mg/dL >40 [facility] Work Phone: Comment on above: The drugs N-Acetylcy steine and Metamizole may falsely depress this assay. Reference Range HDL <40 mg/dL Low HDL Cholesterol HDL >or= 60 mg/dL High HDL Cholesterol Serum or plasma cholesterol in VLDL measurement (mass/volume)on 05-17-2021 Cholesterol in VLDL [Mass/Vol] 33 mg/dL 5-40 [facility] Work Phone: Serum or plasma low density lipoprotein (LDL) cholesterol measurement (mass/volume)on 05-17-2021 Cholesterol in LDL [Mass/Vol] 151 mg/dL 0-130 [facility] Work Phone: Thin prep Papanicolaou smear with manual screeningon 05-17-2021 Thin prep Papanicolaou smear with manual screening 21 U/L 15-37 [facility] Work Phone: Clinical Summary: Katina kathy 05-10-2021 MC75 OP Visit Invalid Interpretation Code [facility] Work Phone: Office Visit: Test Result, R m: 2205-10-2021 NEGATED: Highlighted rowMRI (magnetic resonance imaging) history of the back on 05/02/2021 at [facility] Invalid Interpretation Code [facility] Work Phone: Basophil percentageon 2021 Chloride [Moles/Vol] 103 mmol/L 98-[address] [facility] [address] [facility] Work Phone: Glucose [Mass/Vol] 98 mg/dL 74-106 [facility] Work Phone: [phone] Potassium [Moles/Vol] 3.9 mmol/L 3.5-5.1 [facility] Work Phone: [phone] Sodium [Moles/Vol] 137 mmol/L 136-145 [facility] Work Phone: [phone] WBC (Bld) [#/Vol] 5.7 10*3/uL 4.4-11.0 [facility] Work Phone: Blood erythrocytes count (nu mber/volume)on 05-09-2021 RBC (Bld) [#/Vol] 3.94 10*6/uL 4.6-6.2 [facility] Work Phone: [phone] Blood hemoglobin measurement (mass/volume)on 05-09-2021 Hemoglobin (Bld) [Mass/Vol] 12.9 g/dL 13.0-16.5 [facility] Work Phone: [phone] Blood platelet mean volumeon 05-09-2021 Platelet mean volume (Bld) [Entitic vol] 8.9 fL 6.2-12.0 [facility] Work Phone: [phone] Determination of erythrocyte mean corpuscular volume (MCV)on 05-09-2021 MCV (RBC) [Entitic vol] 94.4 fL 80-94 [facility] Work Phone: [phone] Hematocrit Auto (Bld) [Volum e fraction]on 05-09-2021 Hematocrit (Bld) [Volume fraction] 37.2 % 40-54 [facility] Work Phone: Laboratory - Chemistry and C hemistry - challengeon 05-09-2021 CO2 [Moles/Vol] 31.0 mmol/L 21.0-32.0 [facility] Work Phone: [phone] Urea nitrogen/Creatinine [Mass ratio] 17.0 mg/mg 10-20 [facility] Work Phone: [phone] Laboratory - Hematology and Cell countson 05-09-2021 Erythrocyte distribution width (RBC) [Entitic vol] 46.9 fL 35.1-43.9 [facility] Work Phone: [phone] Erythrocyte distribution width (RBC) [Ratio] 13.6 % 11.6-14.6 [facility] Work Phone: [phone] MCH (RBC) [Entitic mass] 32.7 pg 27.0-32.0 [facility] Work Phone: [phone] MCHC Auto (RBC) [Mass/Vol]on 05-09-2021 MCHC (RBC) [Mass/Vol] 34.7 g/dL 32-36 [facility] Work Phone: No Panel Informationon 05-09 Estimated GFR (MDRD) Amer 95 mL/min >60 [facility] Work Phone: Comment on above: GFR Calc Estimated GFR (MDRD) Non-Af Amer 78 mL/min >60 [facility] Work Phone: Comment on above: Non- GFR Calc Prostate Specific Antigen Total 0.69 ng/mL 0.0-4.0 [facility] Work Phone: Comment on above: This test was perfor med using the TPSA assay method for [employer] chemistry system. Values obtained with differentassay methods cannot be used interchangably.When changing PSA assays in the course of monitoring apatient, additional sequential testing should be carriedout to confirm baseline values. Platelets bldon 05-09-2021 Platelets (Bld) [#/Vol] 178 10*3/uL 150-450 [facility] Work Phone: Serum or plasma calcium remington urement (mass/volume)on 05-09-2021 Calcium [Mass/Vol] 9.4 mg/dL 8.5-10.1 [facility] Work Phone: Serum or plasma creatinine m easurement (mass/volume)on 05-09-2021 Creatinine [Mass/Vol] 1.00 mg/dL 0.70-1.30 [facility] Work Phone: Comment on above: The validity of the calculated GFR & GFRAA in patients over 70 years has not been determined. Clinical correlation is essential. Serum or plasma urea nitroge n measurement (mass/volume)on 05-09-2021 Urea nitrogen [Mass/Vol] 17 mg/dL 7-18 [facility] Work Phone: Thin prep Papanicolaou smear with manual screeningon 05-09-2021 Thin prep Papanicolaou smear with manual screening 3 5-15 [facility] Work Phone: Clinical Summary: CernerFINo n 04-22-2021 MC75 OP Visit Invalid Interpretation Code [facility] Work Phone: Office Visit: New/Est - 1st visit with physician, Rm: 22on 04-22-2021 NEGATED: Highlighted rowbone scan history on 11/01/2020 at [facility] Invalid Interpretation Code [facility] Work Phone: NEGATED: Highlighted rowCT scan history of the Lumbar without contrast on 11/09/2020 at [facility] Invalid Interpretation Code [facility] Work Phone: Clinical Summary: Outcome Chavez mmary04-21-2021 Oswestry Pain Disability Index score 16 Invalid Interpretation Code [facility] Work Phone: pain affects sex life (Oswestry Pain Disability Index) 0 Invalid Interpretation Code [facility] Work Phone: pain affects sleeping (Oswestry Pain Disability Index) 0 Invalid Interpretation Code [facility] Work Phone: pain affects social life (Oswestry Pain Disability Index) 0 Invalid Interpretation Code [facility] Work Phone: pain intensity (Oswestry Pain Disability Index) 1 Invalid Interpretation Code [facility] Work Phone: pain when traveling (Oswestry Pain Disability Index) 1 Invalid Interpretation Code [facility] Work Phone: pain when walking (Oswestry Pain Disability Index) 0 Invalid Interpretation Code [facility] Work Phone: pain while sitting (Oswestry Pain Disability Index) 2 Invalid Interpretation Code [facility] Work Phone: pain while standing (Oswestry Pain Disability Index) 0 Invalid Interpretation Code [facility] Work Phone: pain with lifting (Oswestry Pain Disability Index) 3 Invalid Interpretation Code [facility] Work Phone: pain with personal care (Oswestry Pain Disability Index) 1 Invalid Interpretation Code [facility] Work Phone: diagnostic criteria for SLE #1 2 Invalid Interpretation Code [facility] Work Phone: diagnostic criteria for SLE #10 4 Invalid Interpretation Code [facility] Work Phone: diagnostic criteria for SLE #11 9 Invalid Interpretation Code [facility] Work Phone: diagnostic criteria for SLE #12 16 Invalid Interpretation Code [facility] Work Phone: diagnostic criteria for SLE #13 32.4 Invalid Interpretation Code [facility] Work Phone: diagnostic criteria for SLE #14 53.3 Invalid Interpretation Code [facility] Work Phone: diagnostic criteria for SLE #15 [phone] Invalid Interpretation Code [facility] Work Phone: diagnostic criteria for SLE #2 2 Invalid Interpretation Code [facility] Work Phone: diagnostic criteria for SLE #3 2 Invalid Interpretation Code [facility] Work Phone: diagnostic criteria for SLE #4 4 Invalid Interpretation Code [facility] Work Phone: diagnostic criteria for SLE #5 5 Invalid Interpretation Code [facility] Work Phone: diagnostic criteria for SLE #6 4 Invalid Interpretation Code [facility] Work Phone: diagnostic criteria for SLE #7 4 Invalid Interpretation Code [facility] Work Phone: diagnostic criteria for SLE #8 5 Invalid Interpretation Code [facility] Work Phone: diagnostic criteria for SLE #9 3 Invalid Interpretation Code [facility] Work Phone: Clinical Summary: Scanned López win Summaryon 04-18-2021 Data entered by patient exercise frequency 4 days per week Invalid Interpretation Code [facility] Work Phone: Data entered by patient exercise type walking, strength training, yoga Invalid Interpretation Code [facility] Work Phone: data entered by patient, alcohol (ethanol or ETOH) use No Invalid Interpretation Code [facility] Work Phone: Data entered by patient, allergy list Penicillin Animals Plant pollens (Hay Fever) Eggs Dairy Invalid Interpretation Code [facility] Work Phone: data entered by patient, drug (of abuse) use No Invalid Interpretation Code [facility] Work Phone: data entered by patient, Employer Name employed Invalid Interpretation Code [facility] Work Phone: data entered by patient, exercise history Yes Invalid Interpretation Code [facility] Work Phone: data entered by patient, father's medical history Cancer Heart disease Invalid Interpretation Code [facility] Work Phone: Data entered by patient, history of past surgeries Cataract surgery Fracture repair Knee surgery other Invalid Interpretation Code [facility] Work Phone: data entered by patient, mother's medical history Diabetes - non-insulin dependent High blood pressure Stroke/TIA Invalid Interpretation Code [facility] Work Phone: data entered by patient, past medical history Fractures GERD Gout High blood pressure Obstructive sleep apnea Osteoporosis Invalid Interpretation Code [facility] Work Phone: data entered by patient, 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, current smoker never smoker Invalid Interpretation Code [facility] Work Phone: data entered by patient, 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, marital status Invalid Interpretation Code [facility] Work Phone: data entered by patient, 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, 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 Interpretation Code [facility] Work Phone: Housing Type: apartment, house, care home, trailer, none house Invalid Interpretation Code [facility] Work Phone: housing unit size (asthma environmental history, housing) (from single family to don't know) 1 floor Invalid Interpretation Code [facility] Work Phone: Number of dependent children No Invalid Interpretation Code [facility] Work Phone: Basophil percentageon 2021 Bilirubin [Mass/Vol] 0.70 mg/dL 0.20-1.00 [facility] Work Phone: Comment on above: For patients on eltr ombopag therapy, use of Dimension [place] TBIL is not recommended. Chloride [Moles/Vol] 100 mmol/L 98-107 [facility] Work Phone: Glucose [Mass/Vol] 96 mg/dL 74-106 [facility] Work Phone: Potassium [Moles/Vol] 3.7 mmol/L 3.5-5.1 [facility] Work Phone: Protein [Mass/Vol] 6.9 g/dL 6.4-8.2 [facility] Work Phone: Sodium [Moles/Vol] 137 mmol/L 136-145 [facility] Work Phone: Iron measurement (mass/mass) on 03-22-2021 Iron (Unsp spec) [Mass/Mass] 48 ug/dL 65-175 [facility] Work Phone: [phone] Laboratory - Chemistry and C hemistry - challengeon 03-22-2021 ALP [Catalytic activity/Vol] 64 U/L 45-117 [facility] Work Phone: ALT [Catalytic activity/Vol] 28 U/L 16-61 [facility] Work Phone: CO2 [Moles/Vol] 32.0 mmol/L 21.0-32.0 [facility] Work Phone: [phone] Cobalamin (Vitamin B12) [Mass/Vol] 262 pg/mL 211-911 [facility] Work Phone: [phone] Globulin (S) [Mass/Vol] 3.1 g/dL 2.2-4.2 [facility] Work Phone: [phone] Urea nitrogen/Creatinine [Mass ratio] 22.3 mg/mg 10-20 [facility] Work Phone: No Panel Informationon 03-22 Estimated GFR (MDRD) Amer 92 mL/min >60 [facility] Work Phone: Comment on above: GFR Calc Estimated GFR (MDRD) Non-Af Amer 76 mL/min >60 [facility] Work Phone: Comment on above: Non- GFR Calc Thyroid Stimulating Hormone (TSH) 1.35 uIU/mL 0.358-3.74 [facility] Work Phone: [phone] Serum or plasma albumin remington urement (mass/volume)on 03-22-2021 Albumin [Mass/Vol] 3.8 g/dL 3.2-5.0 [facility] Work Phone: [phone] Serum or plasma albumin/glob ulin mass ratioon 03-22-2021 Albumin/Globulin [Mass ratio] 1.2 {ratio} 0.9-2.4 [facility] Work Phone: [phone] Serum or plasma calcium remington urement (mass/volume)on 03-22-2021 Calcium [Mass/Vol] 9.4 mg/dL 8.5-10.1 [facility] Work Phone: [phone] Serum or plasma creatinine m easurement (mass/volume)on 03-22-2021 Creatinine [Mass/Vol] 1.03 mg/dL 0.70-1.30 [facility] Work Phone: Comment on above: The validity of the calculated GFR & GFRAA in patients over 70 years has not been determined. Clinical correlation is essential. Serum or plasma ferritin katelyn surement (mass/volume)on 03-22-2021 Ferritin [Mass/Vol] 267 ng/mL 26-388 [facility] Work Phone: [phone] Serum or plasma folate measu rement (mass/volume)on 03-22-2021 Folate [Mass/Vol] 9.20 ng/mL 3.1-55.4 [facility] Work Phone: [phone] Serum or plasma urea nitroge n measurement (mass/volume)on 03-22-2021 Urea nitrogen [Mass/Vol] 23 mg/dL 7-18 [facility] Work Phone: [phone] Thin prep Papanicolaou smear with manual screeningon 03-22-2021 Thin prep Papanicolaou smear with manual screening 23 U/L 15-37 [facility] Work Phone: [phone] Thin prep Papanicolaou smear with manual screening 5 5-15 [facility] Work Phone: Basophil percentageon 2021 Bilirubin [Mass/Vol] 0.80 mg/dL 0.20-1.00 [facility] Work Phone: [phone] Comment on above: For patients on eltr ombopag therapy, use of Dimension [place] TBIL is not recommended. Cholesterol [Mass/Vol] 249 mg/dL <200 [facility] Work Phone: [phone] Comment on above: <200 mg/dL Desirable 200-240 mg/dL Borderline >240 mg/dL High Risk Protein [Mass/Vol] 7.1 g/dL 6.4-8.2 [facility] Work Phone: [phone] Triglyceride [Mass/Vol] 170 mg/dL [facility] Work Phone: [phone] Comment on above: The drugs N-Acetylcy steine and Metamizole may falsely depress this assay.Serum Triglycerides Reference Interval Normal <150 mg/dL Borderline high 150 - 199 mg/dL High 200 - 499 mg/dL Very High > or = 500 mg/dL Direct bilirubinon Bilirubin.direct [Mass/Vol] 0.15 mg/dL 0.00-0.30 [facility] Work Phone: Laboratory - Chemistry and C hemistry - challengeon 03-01-2021 ALP [Catalytic activity/Vol] 62 U/L 45-117 [facility] Work Phone: ALT [Catalytic activity/Vol] 29 U/L 16-61 [facility] Work Phone: Globulin (S) [Mass/Vol] 3.2 g/dL 2.2-4.2 [facility] Work Phone: [phone] Serum or plasma albumin remington urement (mass/volume)on 03-01-2021 Albumin [Mass/Vol] 3.9 g/dL 3.2-5.0 [facility] Work Phone: Serum or plasma cholesterol in HDL measurement (mass/volume)on 03-01-2021 Cholesterol in HDL [Mass/Vol] 44 mg/dL [facility] Work Phone: Comment on above: The drugs N-Acetylcy steine and Metamizole may falsely depress this assay. Reference Range HDL <40 mg/dL Low HDL Cholesterol HDL >or= 60 mg/dL High HDL Cholesterol Serum or plasma cholesterol in VLDL measurement (mass/volume)on 03-01-2021 Cholesterol in VLDL [Mass/Vol] 34 mg/dL 5-40 [facility] Work Phone: Serum or plasma low density lipoprotein (LDL) cholesterol measurement (mass/volume)on 03-01-2021 Cholesterol in LDL [Mass/Vol] 171 mg/dL 0-130 [facility] Work Phone: [phone] Thin prep Papanicolaou smear with manual screeningon 03-01-2021 Thin prep Papanicolaou smear with manual screening 22 U/L 15-37 [facility] Work Phone: [phone] Vital Signs Date Time Vital Sign Value Performing Clinician Facility 10-17-2024 10:19-0400 Body mass index (BMI) [Ratio] 29.36 kg/m2 Roderick Kovacs MD Work Phone: [facility] 10-17-2024 10:19-040 Body weight 92.8 kg Roderick Kovacs MD Work Phone: [facility] 10-17-2024 10:19-0400 Diastolic blood pressure 68 mm[Hg] Roderick Kovacs MD Work Phone: [facility] 10-17-2024 10:19-0400 Heart rate 56 /min Roderick Kovacs MD Work Phone: [facility] 10-17-2024 10:19-0400 Systolic blood pressure 105 mm[Hg] Roderick Kovacs MD Work Phone: [facility] 10-06-2024 09:00-0400 Body temperature 97.6 [degF] Dr. Ana Casiano MD Work Phone: [facility] 10-06-2024 09:00-0400 Diastolic blood pressure 60 mm[Hg] Dr. Ana Casiano MD Work Phone: [facility] 10-06-2024 09:00-0400 Heart rate 51 /min Dr. Ana Casiano MD Work Phone: [facility] 10-06-2024 09:00-0400 Respiratory rate 16 /min Dr. Ana Casiano MD Work Phone: [facility] 10-06-2024 09:00-0400 SaO2% (BldA) [Mass fraction] 98 % Dr. Ana Casiano MD Work Phone: [facility] 10-06-2024 09:00-0400 Systolic blood pressure 110 mm[Hg] Dr. Ana Casiano MD Work Phone: [facility] 10-06-2024 08:46-0400 Body height 172.[address] Ana Casiano MD Work Phone: [facility] 09-29-2024 11:18-0400 Body height 172.[address] Ana Casiano MD Work Phone: [facility] 09-29-2024 11:18-0400 Body mass index (BMI) [Ratio] 30.9 kg/m2 Dr. Ana Casiano MD Work Phone: [facility] 09-29-2024 11:18-0400 Body weight 92.[address] Ana Casiano MD Work Phone: [facility] 09-29-2024 11:18-0400 Diastolic blood pressure 65 mm[Hg] Dr. Ana Casiano MD Work Phone: [phone] [place] [address] 09-29-2024 11:18-0400 Heart rate 53 /min Dr. Ana Casiano MD Work Phone: [phone] [place] [address] 09-29-2024 11:18-0400 Respiratory rate 16 /min Dr. Ana Casiano MD Work Phone: [phone] [place] [address] 09-29-2024 11:18-0400 Systolic blood pressure 105 mm[Hg] Dr. Ana Casiano MD Work Phone: [phone] [place] [address] 09-03-2024 11:19-0400 Body temperature 98.6 [degF] Dr. Ana Casiano MD Work Phone: [phone] [place] [address] 09-03-2024 11:19-0400 Diastolic blood pressure 68 mm[Hg] Dr. Ana Casiano MD Work Phone: [phone] [place] [address] 09-03-2024 11:19-0400 Heart rate 46 /min Dr. Ana Casiano MD Work Phone: [phone] [place] [address] 09-03-2024 11:19-0400 Respiratory rate 18 /min Dr. Ana Casiano MD Work Phone: [phone] [place] [address] 09-03-2024 11:19-0400 SaO2% (BldA) [Mass fraction] 100 % Dr. Ana Casiano MD Work Phone: [phone] [address] 09-03-2024 11:19-0400 Systolic blood pressure 109 mm[Hg] Dr. Ana Casiano MD Work Phone: [phone] [place] [address] 09-03-2024 07:49-0400 Body height 172.[address] Ana Casiano MD Work Phone: [phone] [address] 09-03-2024 07:49-0400 Body mass index (BMI) [Ratio] 31 kg/m2 Dr. Ana Casiano MD Work Phone: [facility] 09-03-2024 07:49-0400 Body weight 92.[address] Ana Casiano MD Work Phone: [facility] 04-01-2024 13:00-0500 Diastolic blood pressure 68 mm[Hg] Dominic Gonzalez MD Work Phone: [facility] 04-01-2024 13:00-0500 Heart rate 62 /min Dominic Gonzalez MD Work Phone: [facility] 04-01-2024 13:00-0500 Respiratory rate 16 /min Dominic Gonzalez MD Work Phone: [facility] 04-01-2024 13:00-0500 SaO2% (BldA) [Mass fraction] 99 % Dominic Gonzalez MD Work Phone: [facility] 04-01-2024 13:00-0500 Systolic blood pressure 105 mm[Hg] Dominic Gonzalez MD Work Phone: [facility] 04-01-2024 10:51-0500 Body mass index (BMI) [Ratio] 28.85 kg/m2 Dominic Gonzalez MD Work Phone: [facility] 04-01-2024 10:51-0500 Body temperature 97.5 [degF] Dominic Gonzalez MD Work Phone: [facility] 04-01-2024 10:51-0500 Body weight 91.2 kg Dominic Gonzalez MD Work Phone: [facility] 03-25-2024 12:48-0500 Body height 177.8 cm Connie Zeus TAX DIRECTOR.INDUSTRIAL ILLUMINATING ENGINEER Work Phone: [facility] 03-25-2024 12:48-0500 Body mass index (BMI) [Ratio] 28.84 kg/m2 Connie Zeus TAX DIRECTOR.INDUSTRIAL ILLUMINATING ENGINEER Work Phone: [facility] 03-25-2024 12:48-0500 Body weight 91.17 kg Connie Zeus TAX DIRECTOR.INDUSTRIAL ILLUMINATING ENGINEER Work Phone: [facility] 03-25-2024 12:48-0500 Diastolic blood pressure 72 mm[Hg] Connie Zeus TAX DIRECTOR.INDUSTRIAL ILLUMINATING ENGINEER Work Phone: [facility] 03-25-2024 12:48-0500 Heart rate 58 /min Connie Zeus TAX DIRECTOR.INDUSTRIAL ILLUMINATING ENGINEER Work Phone: [facility] 03-25-2024 12:48-0500 SaO2% (BldA) [Mass fraction] 98 % Connie Zeus TAX DIRECTOR.INDUSTRIAL ILLUMINATING ENGINEER Work Phone: [facility] 03-25-2024 12:48-0500 Systolic blood pressure 111 mm[Hg] Connie Zeus TAX DIRECTOR.INDUSTRIAL ILLUMINATING ENGINEER Work Phone: [facility] 11-26-2023 11:16-0400 Body height 177.8 cm Ruth Sullivan MD Work Phone: [facility] 11-26-2023 11:16-0400 Body mass index (BMI) [Ratio] 27.55 kg/m2 Ruth Sullivan MD Work Phone: [facility] 11-26-2023 11:16-0400 Body weight 87.09 kg Ruth Sullivan MD Work Phone: [facility] 11-26-2023 11:16-0400 Diastolic blood pressure 60 mm[Hg] Ruth Sullivan MD Work Phone: [facility] 11-26-2023 11:16-0400 Heart rate 65 /min Ruth Sullivan MD Work Phone: [facility] 11-26-2023 11:16-0400 Systolic blood pressure 122 mm[Hg] Ruth Sullivan MD Work Phone: [facility] 09-24-2023 14:05-0400 Diastolic blood pressure 67 mm[Hg] Ruth Sullivan MD Work Phone: [facility] 09-24-2023 14:05-0400 Heart rate 54 /min Ruth Sullivan MD Work Phone: [facility] 09-24-2023 14:05-0400 Respiratory rate 15 /min Ruth Sullivan MD Work Phone: [facility] 09-24-2023 14:05-0400 SaO2% (BldA) [Mass fraction] 100 % Ruth Sullivan MD Work Phone: [facility] 09-24-2023 14:05-0400 Systolic blood pressure 128 mm[Hg] Ruth Sullivan MD Work Phone: [facility] 09-24-2023 13:47-0400 Body temperature 97.39 [degF] Ruth Sullivan MD Work Phone: [facility] 08-28-2023 13:17-0400 Body height 177.8 cm Ruth Sullivan MD Work Phone: [facility] 08-28-2023 13:17-0400 Body mass index (BMI) [Ratio] 26.54 kg/m2 Ruth Sullivan MD Work Phone: [facility] 08-28-2023 13:17-0400 Body weight 83.92 kg Ruth Sullivan MD Work Phone: [facility] 05-05-2023 14:51-0400 Body height 177.[address] [facility] 05-05-2023 14:51-0400 Body temperature 98.2 [degF] Pst 1 [facility] 05-05-2023 14:51-0400 Body weight 91.63 kg [address] 1 [facility] 05-05-2023 14:51-0400 Diastolic blood pressure 73 mm[Hg] Pst 1 [facility] 05-05-2023 14:51-0400 Heart rate 68 /min Pst 1 [facility] 05-05-2023 14:51-0400 Respiratory rate 16 /min Pst 1 [facility] 05-05-2023 14:51-0400 SaO2% (BldA) [Mass fraction] 97 % Pst 1 [facility] 05-05-2023 14:51-0400 Systolic blood pressure 120 mm[Hg] Pst 1 [facility] 05-01-2023 18:02-0400 Body temperature 96.8 [degF] Dr. Ana Casiano Work Phone: [facility] 05-01-2023 18:02-0400 Diastolic blood pressure 79 mm[Hg] Dr. Ana Casiano Work Phone: [facility] 05-01-2023 18:02-0400 Heart rate 60 /min Dr. Ana Casiano Work Phone: [facility] 05-01-2023 18:02-0400 Respiratory rate 16 /min Dr. Ana Casiano Work Phone: [facility] 05-01-2023 18:02-0400 SaO2% (BldA) [Mass fraction] 98 % Dr. Ana Casiano Work Phone: [facility] 05-01-2023 18:02-0400 Systolic blood pressure 120 mm[Hg] Dr. Ana Casiano Work Phone: [facility] 05-01-2023 14:32-0400 Body height 177.[address] Ana Casiano Work Phone: [facility] 05-01-2023 14:32-0400 Body mass index (BMI) [Ratio] 29.1 kg/m2 Dr. Ana Casiano Work Phone: [facility] 05-01-2023 14:32-0400 Body weight 92.[address] Ana Casiano Work Phone: [facility] 04-20-2023 08:00-0400 Diastolic blood pressure 71 mm[Hg] Pantera Golias PT Work Phone: [facility] 04-20-2023 08:00-0400 Heart rate 60 /min Pantera Golias PT Work Phone: [facility] 04-20-2023 08:00-0400 Systolic blood pressure 120 mm[Hg] Pantera Golias PT Work Phone: [facility] 04-02-2023 08:27-0500 Body height 177.8 cm Ruth Sullivan MD Work Phone: [facility] 04-02-2023 08:27-0500 Body weight 90.27 kg Ruth Sullivan MD Work Phone: [facility] 04-02-2023 08:27-0500 Diastolic blood pressure 68 mm[Hg] Ruth Sullivan MD Work Phone: [facility] 04-02-2023 08:27-0500 Heart rate 67 /min Ruth Sullivan MD Work Phone: [facility] 04-02-2023 08:27-0500 Systolic blood pressure 110 mm[Hg] Ruth Sullivan MD Work Phone: [facility] 03-30-2023 10:36-0500 Body height 177.8 cm Alpa Boozer TAX DIRECTOR.INDUSTRIAL ILLUMINATING ENGINEER Work Phone: [facility] 03-30-2023 10:36-0500 Body weight 88.91 kg Alpa Boozer TAX DIRECTOR.INDUSTRIAL ILLUMINATING ENGINEER Work Phone: [facility] 03-30-2023 10:36-0500 Diastolic blood pressure 75 mm[Hg] Alpa Boozer TAX DIRECTOR.INDUSTRIAL ILLUMINATING ENGINEER Work Phone: [facility] 03-30-2023 10:36-0500 Heart rate 65 /min Alpa Boozer TAX DIRECTOR.INDUSTRIAL ILLUMINATING ENGINEER Work Phone: [facility] 03-30-2023 10:36-0500 Respiratory rate 18 /min Alpa Boozer TAX DIRECTOR.INDUSTRIAL ILLUMINATING ENGINEER Work Phone: [facility] 03-30-2023 10:36-0500 SaO2% (BldA) [Mass fraction] 98 % Alap Boozer TAX DIRECTOR.INDUSTRIAL ILLUMINATING ENGINEER Work Phone: [facility] 03-30-2023 10:36-0500 Systolic blood pressure 113 mm[Hg] Alpa Boozer TAX DIRECTOR.INDUSTRIAL ILLUMINATING ENGINEER Work Phone: [facility] 03-23-2023 08:23-0500 Body height 177.[address] Ana Casiano Work Phone: [facility] 03-23-2023 08:23-0500 Body mass index (BMI) [Ratio] 28.8 kg/m2 Dr. Ana Casiano Work Phone: [facility] 03-23-2023 08:23-0500 Body weight 91.[address] Ana Casiano Work Phone: [facility] 03-23-2023 08:23-0500 Diastolic blood pressure 71 mm[Hg] Dr. Ana Casiano Work Phone: [facility] 03-23-2023 08:23-0500 Heart rate 63 /min Dr. Ana Casiano Work Phone: [facility] 03-23-2023 08:23-0500 Respiratory rate 18 /min Dr. Ana Casiano Work Phone: [facility] 03-23-2023 08:23-0500 SaO2% (BldA) [Mass fraction] 97 % Dr. Ana Casiano Work Phone: [facility] 03-23-2023 08:23-0500 Systolic blood pressure 116 mm[Hg] Dr. Ana Casiano Work Phone: [facility] 02-24-2023 08:24-0500 Body height 177.[address] Ana Casiano Work Phone: [facility] 02-24-2023 08:24-0500 Body mass index (BMI) [Ratio] 29.5 kg/m2 Dr. Ana Casiano Work Phone: [facility] 02-24-2023 08:24-0500 Body temperature 97.3 [degF] Dr. Ana Casiano Work Phone: [facility] 02-24-2023 08:24-0500 Body weight 93.[address] Ana Casiano Work Phone: [facility] 02-24-2023 08:24-0500 Diastolic blood pressure 72 mm[Hg] Dr. Ana Casiano Work Phone: [facility] 02-24-2023 08:24-0500 Heart rate 63 /min Dr. Ana Casiano Work Phone: 9(734)714-397704 [place] [address] 02-24-2023 08:24-0500 Respiratory rate 20 /min Dr. Aan Casiano Work Phone: [facility] 02-24-2023 08:24-0500 SaO2% (BldA) [Mass fraction] 98 % Dr. Ana Casiano Work Phone: [facility] 02-24-2023 08:24-0500 Systolic blood pressure 107 mm[Hg] Dr. Ana Casiano Work Phone: [facility] 02-13-2023 21:44-0500 Diastolic blood pressure 79 mm[Hg] Dr. Ana Casiano Work Phone: [facility] 02-13-2023 21:44-0500 Heart rate 85 /min Dr. Ana Casiano Work Phone: [facility] 02-13-2023 21:44-0500 Respiratory rate 18 /min Dr. Ana Casiano Work Phone: [facility] 02-13-2023 21:44-0500 SaO2% (BldA) [Mass fraction] 94 % Dr. Ana Casiano Work Phone: [facility] 02-13-2023 21:44-0500 Systolic blood pressure 125 mm[Hg] Dr. Ana Casiano Work Phone: [facility] 02-13-2023 17:16-0500 Body mass index (BMI) [Ratio] 28.6 kg/m2 Dr. Ana Casiano Work Phone: [facility] 02-13-2023 17:16-0500 Body temperature 98.9 [degF] Dr. Ana Casiano Work Phone: [facility] 02-13-2023 17:16-0500 Body weight 90.[address] Ana Casiano Work Phone: [facility] 02-12-2023 10:22-0500 Heart rate 67 /min Dr. Ana Casiano Work Phone: [facility] 02-12-2023 10:22-0500 Respiratory rate 17 /min Dr. Ana Casiano Work Phone: [facility] 02-12-2023 09:48-0500 Body temperature 98.1 [degF] Dr. Ana Casiano Work Phone: [facility] 02-12-2023 09:48-0500 Diastolic blood pressure 63 mm[Hg] Dr. Ana Casiano Work Phone: 3(331)665-626203 [address] 02-12-2023 09:48-0500 SaO2% (BldA) [Mass fraction] 97 % Dr. Ana Casiano Work Phone: 7(435)168-317085 [place] [address] 02-12-2023 09:48-0500 Systolic blood pressure 96 mm[Hg] Dr. Ana Casiano Work Phone: 3(298)260-217085 [place] [address] 02-12-2023 09:47-0500 Body height 177.[address] Ana Casiano Work Phone: 2(809)491-904085 [place] [address] 02-12-2023 09:47-0500 Body mass index (BMI) [Ratio] 29.4 kg/m2 Dr. Ana Casiano Work Phone: 7(590)214-413985 [place] [address] 02-12-2023 09:47-0500 Body weight 92.[address] Ana Casiano Work Phone: 8(206)879-613485 [place] [address] 02-08-2023 19:46-0500 Body height 177.[address] Ana Casiano Work Phone: 9(141)824-140604 [place] [address] 02-08-2023 19:46-0500 Body mass index (BMI) [Ratio] 30.2 kg/m2 Dr. Ana Casiano Work Phone: 5(638)093-888804 [place] [address] 02-08-2023 19:46-0500 Body temperature 97.3 [degF] Dr. Ana Casiano Work Phone: 4(687)046-365103 [address] 02-08-2023 19:46-0500 Body weight 95.[address] Ana Casiano Work Phone: 3(315)050-894904 [place] [address] 02-08-2023 19:46-0500 Diastolic blood pressure 68 mm[Hg] Dr. Ana Casiano Work Phone: [facility] 02-08-2023 19:46-0500 Heart rate 72 /min Dr. Ana Casiano Work Phone: [facility] 02-08-2023 19:46-0500 Respiratory rate 15 /min Dr. Ana Casiano Work Phone: [facility] 02-08-2023 19:46-0500 SaO2% (BldA) [Mass fraction] 97 % Dr. Ana Casiano Work Phone: [facility] 02-08-2023 19:46-0500 Systolic blood pressure 104 mm[Hg] Dr. Ana Casiano Work Phone: [facility] 01-14-2023 18:55-0500 Body height 177.[address] Ana Casiano Work Phone: [facility] 01-14-2023 18:55-0500 Body mass index (BMI) [Ratio] 30.5 kg/m2 Dr. Ana Casiano Work Phone: [facility] 01-14-2023 18:55-0500 Body temperature 98 [degF] Dr. Ana Casiano Work Phone: [facility] 01-14-2023 18:55-0500 Body weight 96.[address] Ana Casiano Work Phone: [facility] 01-14-2023 18:55-0500 Diastolic blood pressure 78 mm[Hg] Dr. Ana Casiano Work Phone: [facility] 01-14-2023 18:55-0500 Heart rate 97 /min Dr. Ana Casiano Work Phone: [facility] 01-14-2023 18:55-0500 Respiratory rate 16 /min Dr. Ana Casiano Work Phone: [facility] 01-14-2023 18:55-0500 SaO2% (BldA) [Mass fraction] 98 % Dr. Ana Casiano Work Phone: [facility] 01-14-2023 18:55-0500 Systolic blood pressure 125 mm[Hg] Dr. Ana Casiano Work Phone: [facility] 12-22-2022 11:25-0500 Body temperature 97.8 [degF] Dr. Ana Casiano Work Phone: [facility] 12-22-2022 11:25-0500 Diastolic blood pressure 68 mm[Hg] Dr. Ana Casiano Work Phone: 1(653)430-591404 [place] [address] 12-22-2022 11:25-0500 Heart rate 55 /min Dr. Ana Casiano Work Phone: 6(004)472-101504 [place] [address] 12-22-2022 11:25-0500 Respiratory rate 16 /min Dr. Ana Casiano Work Phone: 7(632)688-762304 [place] [address] 12-22-2022 11:25-0500 SaO2% (BldA) [Mass fraction] 99 % Dr. Ana Casiano Work Phone: 7(417)501-600604 [place] [address] 12-22-2022 11:25-0500 Systolic blood pressure 91 mm[Hg] Dr. Ana Casiano Work Phone: 5(407)641-861604 [place] [address] 12-22-2022 09:29-0500 Body height 172.[address] Ana Casiano Work Phone: 6(824)027-697604 [place] [address] 12-22-2022 09:29-0500 Body mass index (BMI) [Ratio] 31.9 kg/m2 Dr. Ana Casiano Work Phone: 7(164)475-592204 [place] [address] 12-22-2022 09:29-0500 Body weight 95.[address] Ana Casiano Work Phone: [facility] 12-05-2022 08:12-0400 Body mass index (BMI) [Ratio] 30.1 kg/m2 Dr. Ana Casiano Work Phone: [facility] 12-05-2022 08:12-0400 Body weight 95.[address] Ana Casiano Work Phone: [facility] 12-05-2022 08:12-0400 Diastolic blood pressure 72 mm[Hg] Dr. Ana Casiano Work Phone: [facility] 12-05-2022 08:12-0400 Heart rate 69 /min Dr. Ana Casiano Work Phone: [facility] 12-05-2022 08:12-0400 Respiratory rate 18 /min Dr. Ana Casiano Work Phone: [facility] 12-05-2022 08:12-0400 SaO2% (BldA) [Mass fraction] 97 % Dr. Ana Casiano Work Phone: [facility] 12-05-2022 08:12-0400 Systolic blood pressure 107 mm[Hg] Dr. Ana Casiano Work Phone: 1(945)844-866803 [address] 11-19-2022 13:26-0400 Body height 177.[address] Ana Casiano Work Phone: 9(354)610-356085 [place] [address] 11-19-2022 13:26-0400 Body mass index (BMI) [Ratio] 31 kg/m2 Dr. Ana Casiano Work Phone: 6(908)578-949604 [place] [address] 11-19-2022 13:26-0400 Body temperature 98 [degF] Dr. Ana Casiano Work Phone: 0(059)851-611585 [place] [address] 11-19-2022 13:26-0400 Body weight 98.[address] Ana Casiano Work Phone: 5(283)209-225704 [place] [address] 11-19-2022 13:26-0400 Diastolic blood pressure 72 mm[Hg] Dr. Ana Casiano Work Phone: [facility] 11-19-2022 13:26-0400 Heart rate 67 /min Dr. Ana Casiano Work Phone: [facility] 11-19-2022 13:26-0400 Respiratory rate 16 /min Dr. Ana Casiano Work Phone: [facility] 11-19-2022 13:26-0400 SaO2% (BldA) [Mass fraction] 94 % Dr. Ana Casiano Work Phone: 7(508)674-837604 [place] [address] 11-19-2022 13:26-0400 Systolic blood pressure 128 mm[Hg] Dr. Ana Casiano Work Phone: [facility] 05-16-2022 13:24-0400 Body temperature 97.4 [degF] Dr. Ana Casiano Work Phone: 5(783)276-081204 [place] [address] 05-16-2022 13:24-0400 Diastolic blood pressure 68 mm[Hg] Dr. Ana Casiano Work Phone: 8(696)656-755004 [place] [address] 05-16-2022 13:24-0400 Heart rate 52 /min Dr. Ana Casiano Work Phone: 8(925)194-528285 [place] [address] 05-16-2022 13:24-0400 Respiratory rate 16 /min Dr. Ana Casiano Work Phone: 0(180)477-572385 [place] [address] 05-16-2022 13:24-0400 SaO2% (BldA) [Mass fraction] 100 % Dr. Ana Casiano Work Phone: 4(631)865-870904 [place] [address] 05-16-2022 13:24-0400 Systolic blood pressure 106 mm[Hg] Dr. Ana Casiano Work Phone: 5(436)480-455985 [place] [address] 05-16-2022 12:41-0400 Body height 177.[address] Ana Casiano Work Phone: 6(193)065-263485 [place] [address] 05-16-2022 12:41-0400 Body mass index (BMI) [Ratio] 29.4 kg/m2 Dr. Ana Casiano Work Phone: 8(615)748-920104 [place] [address] 05-16-2022 12:41-0400 Body weight 92.[address] Ana Casiano Work Phone: 0(913)868-499704 [place] [address] 05-12-2022 08:47-0400 Body height 177.[address] Ana Casiano Work Phone: 6(039)681-775985 [place] [address] 05-12-2022 08:45-0400 Body mass index (BMI) [Ratio] 30.7 kg/m2 Dr. Ana Casiano Work Phone: 8(900)591-731504 [place] [address] 05-12-2022 08:45-0400 Body weight 97.[address] Ana Casiano Work Phone: [facility] 05-12-2022 08:45-0400 Diastolic blood pressure 75 mm[Hg] Dr. Ana Casiano Work Phone: [facility] 05-12-2022 08:45-0400 Heart rate 62 /min Dr. Ana Casiano Work Phone: [facility] 05-12-2022 08:45-0400 Respiratory rate 18 /min Dr. Ana Casiano Work Phone: [facility] 05-12-2022 08:45-0400 SaO2% (BldA) [Mass fraction] 97 % Dr. Ana Casiano Work Phone: [facility] 05-12-2022 08:45-0400 Systolic blood pressure 118 mm[Hg] Dr. Ana Casiano Work Phone: 3(333)365-291304 [place] [address] 02-13-2022 10:39-0500 Body height 177.[address] Ana Casiano Work Phone: 2(136)644-635104 [place] [address] 02-13-2022 10:39-0500 Body mass index (BMI) [Ratio] 31.8 kg/m2 Dr. Ana Casiano Work Phone: [facility] 02-13-2022 10:39-0500 Body weight 100.[address] Ana Casiano Work Phone: [facility] 02-13-2022 10:39-0500 Diastolic blood pressure 78 mm[Hg] Dr. Ana Casiano Work Phone: [facility] 02-13-2022 10:39-0500 Heart rate 64 /min Dr. Ana Caisano Work Phone: [facility] 02-13-2022 10:39-0500 Respiratory rate 16 /min Dr. Ana Casiano Work Phone: [facility] 02-13-2022 10:39-0500 SaO2% (BldA) [Mass fraction] 99 % Dr. Ana Casiano Work Phone: [facility] 02-13-2022 10:39-0500 Systolic blood pressure 138 mm[Hg] Dr. nAa Casiano Work Phone: [facility] 02-10-2022 11:39-0500 Diastolic blood pressure 79 mm[Hg] Dr. Ana Casiano Work Phone: [facility] 02-10-2022 11:39-0500 Heart rate 78 /min Dr. Ana Casiano Work Phone: [facility] 02-10-2022 11:39-0500 Respiratory rate 16 /min Dr. Ana Casiano Work Phone: [facility] 02-10-2022 11:39-0500 SaO2% (BldA) [Mass fraction] 98 % Dr. Ana Casiano Work Phone: [facility] 02-10-2022 11:39-0500 Systolic blood pressure 134 mm[Hg] Dr. Ana Casiano Work Phone: [facility] 02-10-2022 08:15-0500 Body height 177.[address] Ana Casiano Work Phone: [facility] Work Phone: 02-10-2022 08:15-0500 Body mass index (BMI) [Ratio] 30.5 kg/m2 Dr. Ana Casiano Work Phone: [facility] 02-10-2022 08:15-0500 Body temperature 96.6 [degF] Dr. Ana Casiano Work Phone: [facility] 02-10-2022 08:15-0500 Body weight 96.[address] Ana Casiano Work Phone: [facility] 12-18-2021 16:43-0500 Diastolic blood pressure 74 mm[Hg] Dr. Ana Casiano Work Phone: [facility] 12-18-2021 16:43-0500 Heart rate 55 /min Dr. Ana Casiano Work Phone: [facility] 12-18-2021 16:43-0500 Respiratory rate 16 /min Dr. Ana Casiano Work Phone: [facility] 12-18-2021 16:43-0500 SaO2% (BldA) [Mass fraction] 96 % Dr. Ana Casiano Work Phone: [facility] 12-18-2021 16:43-0500 Systolic blood pressure 113 mm[Hg] Dr. Ana Casiano Work Phone: [facility] 12-18-2021 15:49-0500 Body height 177.[address] Ana Casiano Work Phone: [facility] Work Phone: 12-18-2021 15:49-0500 Body mass index (BMI) [Ratio] 29.4 kg/m2 Dr. Ana Casiano Work Phone: [facility] 12-18-2021 15:49-0500 Body temperature 98.2 [degF] Dr. Ana Casiano Work Phone: [facility] 12-18-2021 15:49-0500 Body weight 92.[address] Ana Casiano Work Phone: [facility] 07-03-2021 15:44-0400 Body temperature 97.4 [degF] Dr. Ana Casiano Work Phone: [facility] Work Phone: 07-03-2021 15:44-0400 Diastolic blood pressure 59 mm[Hg] Dr. Ana Casiano Work Phone: [facility] Work Phone: 07-03-2021 15:44-0400 Heart rate 64 /min Dr. Ana Casiano Work Phone: [facility] Work Phone: 07-03-2021 15:44-0400 Respiratory rate 16 /min Dr. Ana Casiano Work Phone: [facility] Work Phone: 07-03-2021 15:44-0400 SaO2% (BldA) [Mass fraction] 98 % Dr. Ana Casiano Work Phone: [facility] Work Phone: 07-03-2021 15:44-0400 Systolic blood pressure 96 mm[Hg] Dr. Ana Casiano Work Phone: [facility] Work Phone: 07-03-2021 14:20-0400 Body height 177.[address] Ana Casiano Work Phone: [facility] Work Phone: 07-03-2021 14:20-0400 Body mass index (BMI) [Ratio] 28.4 kg/m2 Dr. Ana Casiano Work Phone: [facility] Work Phone: 07-03-2021 14:20-0400 Body weight 89.[address] Ana Casiano Work Phone: [facility] Work Phone: 06-14-2021 14:11-0400 Body temperature 98.4 [degF] Dr. Ana Casiano Work Phone: [facility] Work Phone: 06-14-2021 14:11-0400 Diastolic blood pressure 57 mm[Hg] Dr. Ana Casiano Work Phone: [facility] Work Phone: 06-14-2021 14:11-0400 Heart rate 88 /min Dr. Ana Casiano Work Phone: [facility] Work Phone: 06-14-2021 14:11-0400 Respiratory rate 16 /min Dr. Ana Casiano Work Phone: [facility] Work Phone: 06-14-2021 14:11-0400 SaO2% (BldA) [Mass fraction] 96 % Dr. Ana Casiano Work Phone: [facility] Work Phone: 06-14-2021 14:11-0400 Systolic blood pressure 103 mm[Hg] Dr. Ana Casiano Work Phone: [facility] Work Phone: 06-12-2021 10:45-0400 Inhaled oxygen flow rate 4 L/min Dr. Ana Casiano Work Phone: [facility] Work Phone: 06-12-2021 06:33-0400 Body height 177.[address] Ana Casiano Work Phone: [facility] Work Phone: 06-12-2021 06:33-0400 Body mass index (BMI) [Ratio] 28.8 kg/m2 Dr. Ana Casiano Work Phone: [facility] Work Phone: 06-12-2021 06:33-0400 Body weight [address] Ana Casiano Work Phone: [facility] Work Phone: 03-14-2021 12:04-0500 Body height 177.[address] Ana Casiano Work Phone: [facility] Work Phone: 03-14-2021 12:04-0500 Body mass index (BMI) [Ratio] 29.8 kg/m2 Dr. Ana Casiano Work Phone: [facility] Work Phone: 03-14-2021 12:04-0500 Body weight 94.[address] Ana Casiano Work Phone: [facility] Work Phone: 03-14-2021 12:04-0500 Diastolic blood pressure 51 mm[Hg] Dr. Ana Casiano Work Phone: [facility] Work Phone: 03-14-2021 12:04-0500 Heart rate 57 /min Dr. Ana Casiano Work Phone: [facility] Work Phone: 03-14-2021 12:04-0500 Respiratory rate 16 /min Dr. Ana Casiano Work Phone: [facility] Work Phone: 03-14-2021 12:04-0500 SaO2% (BldA) [Mass fraction] 97 % Dr. Ana Casiano Work Phone: [facility] Work Phone: 03-14-2021 12:04-0500 Systolic blood pressure 96 mm[Hg] Dr. Ana Casiano Work Phone: [facility] Work Phone: 02-27-2021 07:31-0500 Body mass index (BMI) [Ratio] 30.8 kg/m2 Dr. Ana Casiano Work Phone: [facility] Work Phone: 02-27-2021 07:31-0500 Body weight 97.[address] Ana Casiano Work Phone: [facility] Work Phone: 02-27-2021 07:31-0500 Diastolic blood pressure 77 mm[Hg] Dr. Ana Casiano Work Phone: [facility] Work Phone: 02-27-2021 07:31-0500 Heart rate 82 /min Dr. Ana Casiano Work Phone: [facility] Work Phone: 02-27-2021 07:31-0500 Respiratory rate 16 /min Dr. Ana Casiano Work Phone: [facility] Work Phone: 02-27-2021 07:31-0500 SaO2% (BldA) [Mass fraction] 96 % Dr. Ana Casiano Work Phone: [facility] Work Phone: 02-27-2021 07:31-0500 Systolic blood pressure 107 mm[Hg] Dr. Ana Casiano Work Phone: [facility] Work Phone: NEGATED: Highlighted [id number] 10:34-0400 Body height 177.8 cm Bharati Medina AT [facility] Work Phone: NEGATED: Highlighted [id number] 10:34-0400 Body height 178 cm Bharati Kulkarnibach AT [facility] Work Phone: NEGATED: Highlighted [id number] 10:34-0400 Body mass index (BMI) [Ratio] 29.23 kg/m2 Bharati Kulkarnibach AT [facility] Work Phone: NEGATED: Highlighted [id number] 10:34-0400 Body weight 92.08 kg Bharati Kelbach AT [facility] [facility] Work Phone: NEGATED: Highlighted [id number] 10:34-0400 Body weight 92 kg Bharati Kelbach AT [facility] [place] [facility] Work Phone: NEGATED: Highlighted [id number] 08:46-0400 Body height 177.8 cm Lali Reynolds AT [facility] Work Phone: NEGATED: Highlighted [id number] 08:46-0400 Body height 178 cm Lali Reynolds AT [facility] Work Phone: NEGATED: Highlighted [id number] 08:46-0400 Body mass index (BMI) [Ratio] 29.23 kg/m2 Lali Reynolds AT [facility] Work Phone: NEGATED: Highlighted [id number] 08:46-0400 Body weight 92.08 kg Lali Reynolds AT [facility] [place] [facility] Work Phone: NEGATED: Highlighted [id number] 08:46-0400 Body weight 92 kg Lali Reynolds AT [facility] Work Phone: Encounters Encounter Date Encounter Type Care Provider Facility Start: 11-08-2024 ambulatory Kaiden Gill Facility :[facility] Start: 10-31-2024 ambulatory Ana Casiano Facility:[facility] Start: 10-19-2024 ambulatory Dwayne Klein Facility:[facility] Start: 10-17-2024 End: 10-17-2024 Patient encounter procedure Roderick Kovacs MD Work Phone: Urology Comment on above: Erectile dysfunction of organic origin (Primary Dx); BPH with urinary obstruction; Essential (primary) hypertension Start: 10-17-2024 End: 10-17-2024 ambulatory ANA CASIANO Facility:[facility] Start: 10-06-2024 End: 10-06-[address] Dwayne Klein MD -[facility] Start: 10-06-2024 End: 10-06-[address] Ana Casiano MD Work Phone: -[facility] Start: 09-29-2024 End: 09-29-[address] Dwayne Klein MD -[facility] Work Phone: Start: 09-29-2024 End: 09-29-[address] Ana Casiano MD Work Phone: -[facility] Start: 09-05-2024 End: 09-05-[address] [facility] Start: 09-05-2024 End: 09-05-[address] Ana Casiano MD -[facility] Work Phone: Start: 09-05-2024 End: 09-05-2024 ambulatory Ana Casiano Facility:[facility] Start: 09-03-2024 End: 09-03-2024 Emergency department patient visit Dr. Ana Casiano MD Work Phone: -Emergency Department Work Phone: Start: 08-19-2024 End: 08-19-2024 Patient encounter procedure Kaiden Gill DO -[facility] Work Phone: Start: 08-19-2024 End: 08-19-[address] Ana Casiano MD Work Phone: [facility] Start: 06-20-2024 End: 06-20-[address] Ana Casiano MD Work Phone: [facility] Work Phone: Start: 06-20-2024 End: 06-20-[address] Ana Casiano MD -[facility] Work Phone: Start: 06-20-2024 End: 06-20-2024 ambulatory Ana Casiano Facility:[facility] Start: 05-23-2024 End: 05-23-[address] Ana Casiano MD -[facility] Work Phone: Start: 05-23-2024 End: 05-23-2024 ambulatory Ana Casiano Facility:[facility] Start: 04-08-2024 End: 04-08-2024 Admission to same day surgery center Connie Ambrose APRN.CNP Work Phone: General Surgery Comment on above: Adenomatous rectal p olyp (Primary Dx); Encounter for immunization Start: 04-08-2024 End: 04-08-2024 ambulatory ANA Mullins [place] Facility:[facility] Start: 04-08-2024 End: 04-08-2024 Telemedicine consultation with patient Connie Ambrose INDUSTRIAL ILLUMINATING ENGINEER Work Phone: General Surgery Start: 04-01-2024 End: 04-01-2024 ambulatory CONNIE AMBROSE Facility:[facility] Start: 04-01-2024 End: 04-01-2024 Subsequent hospital visit by physician Dominic Gonzalez MD Work Phone: Ambulatory Surgery Comment on above: Positive colorectal cancer screening using Cologuard test [R19.5] Start: 03-25-2024 End: 05-04-2024 Telephone encounter Connie Ambrose APRN.INDUSTRIAL ILLUMINATING ENGINEER Work Phone: General Surgery Comment on above: 04-01-2024 [facility] Start: 03-25-2024 End: 03-25-2024 ambulatory ANA CASIANO Facility:[facility] Start: 03-25-2024 End: 03-25-2024 Patient encounter procedure Conniealfredo Ambrose APRN.INDUSTRIAL ILLUMINATING ENGINEER Work Phone: General Surgery Comment on above: Positive colorectal cancer screening using Cologuard test (Primary Dx); Diarrhea, unspecified type Start: 03-04-2024 End: 03-04-[address] Clifford Delgado MD -[facility] Work Phone: Start: 03-04-2024 End: 03-04-2024 nathaly Casiano Facility:[facility] Start: 02-29-2024 End: 02-29-2024 ambulatory Ana Casiano Facility:[facility] Start: 02-29-2024 End: 02-29-[address] 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); STEPHANY treated with BiPAP; Anthony's esophagus without dysplasia Start: 11-26-2023 End: 11-26-2023 ambulatory ANA CASIANO Facility:[facility] Start: 11-23-2023 End: 11-23-2023 ambulatory Ana Casiano Facility:[facility] Start: 11-18-2023 End: 11-18-2023 ambulatory Ana Casiano [facility] Start: 11-06-2023 ambulatory ANA CASIANO [facility] Start: 11-06-2023 End: 11-06-2023 Subsequent hospital visit by physician Gi/Gu [facility] ([facility]) [facility] Comment on above: History of fundoplic ation [Z98.890] Start: 09-29-2023 End: 09-30-2023 Telephone encounter Ruth Slulivan MD Work Phone: [facility] BARI[facility]RIC DEPARTMENT Start: 09-24-2023 ambulatory ANA CASIANO Facility:[facility] Start: 09-24-2023 End: 09-24-2023 Preprocedural examination done Ruth Sullivan MD Work Phone: [facility] Work Phone: Start: 09-24-2023 End: 09-24-2023 Subsequent hospital visit by physician Ruth Sullivan MD Work Phone: [facility] Comment on above: Thrush of mouth and esophagus (HCC) (HCC) [B37.81, B37.0] Start: 09-07-2023 Telephone encounter Ruth santacruz MD Work Phone: [facility] DEPARTMENT Comment on above: Appointment (EGD new appointment. ) Start: 09-04-2023 ambulatory Ruth Sullivan MD Work Phone: [facility] DEPART[facility] Start: 09-04-2023 Patient encounter procedure Ruth Sullivan MD Work Phone: [facility] DE[facility] Comment on above: Egd question Start: 09-01-2023 Telephone encounter Ruth santacruz MD Work Phone: [facility] DE[facility] Comment on above: Appointment Start: 08-31-2023 Telephone encounter Ruth santacruz MD Work Phone: [facility] Comment on above: Appointment Start: 08-28-2023 End: 08-28-2023 Patient encounter procedure Ruth Sullivan MD Work Phone: [facility] DE[facility] Comment on above: 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); Anthony's esophagus without dysplasia; STEPHANY treated with BiPAP; Thrush of mouth and esophagus (HCC) (HCC) Start: 08-28-2023 End: 08-28-2023 Telemedicine consultation with patient Ruth Sullivan MD Work Phone: [facility] BARI[facility]RIC DE[facility]MENT Start: 08-28-2023 End: 08-28-2023 ambulatory ANA Harpreet CASIANO [facility] Start: 08-28-2023 Telephone encounter Ruth santacruz MD Work Phone: [facility] DEPART[facility] Comment on above: Orders (Schedule EGD ) Start: 08-28-2023 ambulatory ANA Harpreet ACSIANO Facility:[facility] Start: 08-04-2023 Telephone encounter Edith Durbin [facility] DEPART[facility] Comment on above: Patient Question; Fo llow Up Start: 07-03-2023 Telephone encounter Ruth santacruz MD Work Phone: [facility] DE[facility] Comment on above: Patient Question; Re turning Patient's Call Start: 06-29-2023 Telephone encounter Ruth santacruz MD Work Phone: [facility] DE[facility] Comment on above: Patient Question Start: 06-22-2023 Telephone encounter Ruth santacruz MD Work Phone: [facility] DE[facility] Comment on above: Patient Question Start: 06-03-2023 End: 06-03-2023 ambulatory ANA Mullins CASIANO [facility] Start: 05-28-2023 Telephone encounter Ruth santacruz MD Work Phone: [facility] DEPART[facility] Comment on above: Patient Question Start: 05-26-2023 ambulatory Ruth Sullivan MD Work Phone: [facility] DE[facility] Comment on above: Hard spot on stomach Start: 05-19-2023 Orders Only Ruth Sullivan MD Work Phone: [facility] Start: 05-18-2023 Telephone encounter Ruth santacruz MD Work Phone: [facility] DEPART[facility] Comment on above: Returning Patient's Call Start: 05-15-2023 Telephone encounter Ruth santacruz MD Work Phone: [facility] DE[facility] Comment on above: Patient Question Start: 05-14-2023 Telephone encounter Ruth santacruz MD Work Phone: [facility] DE[facility] Comment on above: Medication Problem ( Zofran) Start: 05-13-2023 Telephone encounter Ruth santacruz MD Work Phone: [facility] DE[facility] Comment on above: Hospital Follow Up Start: 05-12-2023 End: 05-13-2023 ambulatory RUTH SULLIVAN Facility:[facility] Start: 05-11-2023 Telephone encounter Ruth santacruz MD Work Phone: [facility] DE[facility] Comment on above: Patient Update Start: 05-05-2023 Encounter for other preprocedural examination ANA CASIANO [facility] Start: 05-05-2023 End: 05-05-2023 Admission to [address] Start: 05-05-2023 End: 05-05-2023 ambulatory ALPA PEARSON Pre Surgical Testing Comment on above: Pre-op exam; Paraesophageal hernia; Tachyarrhythmia; Migraine with aura and without status migrainosus, not intractable; History of kidney cancer; STEPHANY (obstructive sleep apnea); Primary hypertension; Anemia due to other cause, not classified Start: 05-05-2023 End: 05-05-2023 Preprocedural examination done [address] Work Phone: Start: 05-01-2023 End: 05-01-2023 Emergency department patient visit Dr. Ana Casiano Work Phone: [facility]-Emergency Department Work Phone: Start: 05-01-2023 End: 05-01-2023 ambulatory Danae Kasgrzegorzfelicita QUALITY CONTROL ASSESSOR Work Phone: [facility] Physical Therapy Comment on above: Pain in thoracic spi ne (Primary Dx) Start: 04-30-2023 Telephone encounter Alpa salter APRN.INDUSTRIAL ILLUMINATING ENGINEER Work Phone: [facility] SURGERY DEPARTMENT Comment on above: Patient Update Start: 04-23-2023 Orders Only Ruth Sullivan MD Work Phone: [facility] BARIATRIC DEPARTMENT Comment on above: Paraesophageal herni a (Primary Dx) Start: 04-20-2023 End: 04-20-[address] Ana Casiano Work Phone: [facility] Work Phone: Start: 04-20-2023 End: 04-20-[address] Ana Casiano Work Phone: [facility] Start: 04-20-2023 End: 04-20-2023 ambulatory Pantera Gallegos PT Work Phone: [facility] Physical Therapy Comment on above: Pain in thoracic spi ne Start: 04-13-2023 Telephone encounter Alpa salter APRN.INDUSTRIAL ILLUMINATING ENGINEER Work Phone: [facility] SURGERY DEPARTMENT Comment on above: Patient Update Start: 04-02-2023 Telephone encounter Ruth santacruz MD Work Phone: [facility] BARI[facility]RIC DEPARTMENT Comment on above: Medical Clearance Start: 04-02-2023 End: 04-02-2023 Patient encounter procedure Ruth Sullivan MD Work Phone: [facility] BARI[facility]RIC DEPARTMENT Comment on above: Gastroesophageal ref lux disease with esophagitis without hemorrhage (Primary Dx); Hiatal hernia; Anthony's esophagus without dysplasia; Hypertension, unspecified type; STEPHANY treated with BiPAP; SVT (supraventricular tachycardia) Start: 04-02-2023 End: 04-02-2023 ambulatory RUTH SULLIVAN Facility:[facility] Start: 03-31-2023 End: 03-31-[address] Ana Casiano Work Phone: [facility] Work Phone: Start: 03-31-2023 End: 03-31-[address] Ana Casiano Work Phone: [facility]-Laboratory Work Phone: Start: 03-30-2023 End: 03-30-2023 Patient encounter procedure Alpa Pearson APRN.INDUSTRIAL ILLUMINATING ENGINEER Work Phone: [facility] DEPARTMENT Comment on above: Paraesophageal herni a (Primary Dx); Preoperative examination; STEPHANY treated with BiPAP; Gastroesophageal reflux disease with esophagitis without hemorrhage; SVT (supraventricular tachycardia); Hypertension, unspecified type Start: 03-30-2023 End: 03-30-2023 Preprocedural examination done Alpa Pearson APRN.INDUSTRIAL ILLUMINATING ENGINEER Work Phone: [facility] Work Phone: Start: 03-30-2023 End: 03-30-2023 ambulatory ANA CASIANO Facility:[facility] Start: 03-30-2023 Encounter for other preprocedural examination ALPA (CHADD) [facility] Start: 03-23-[address] Kim Casiano Work Phone: [facility] Start: 03-23-2023 End: 03-23-2023 Admission to same day surgery center Dr. Ana Casiano Work Phone: [facility] Start: 03-23-2023 End: 03-23-[address] Ana Casiano Work Phone: [facility] Work Phone: Start: 03-20-2023 End: 03-20-[address] Ana Casiano Work Phone: [facility]-Nuclear Medicine, [facility] Work Phone: Start: 03-16-2023 End: 03-16-[address] Ana Casiano Work Phone: [facility] Work Phone: Start: 03-16-2023 End: 03-16-[address] Ana Casiano Work Phone: [facility]-Laboratory Work Phone: Start: 03-13-2023 End: 03-13-2023 ambulatory ANA CASIANO [facility] Start: 03-10-2023 ambulatory ANA CASIANO Facility:[facility] Start: 03-06-2023 End: 03-06-2023 ambulatory ANA CASIANO [facility] Start: 02-24-2023 End: 02-24-[address] Ana Casiano Work Phone: [facility]-Pulmonary Medicine [facility] Work Phone: Start: 02-13-2023 End: 02-13-2023 Emergency department patient [facility] Start: 02-12-2023 End: 02-12-2023 Emergency department patient visit Dr. Ana Casiano Work Phone: [facility]-Emergency Department Work Phone: Start: 02-08-2023 End: 02-08-2023 Emergency department patient visit Dr. Ana Casiano [facility] Start: 01-14-2023 End: 01-14-2023 Emergency department patient visit Dr. Ana Casiano [facility] Work [facility]: Start: 01-09-2023 Non-patient / Non-visit Dr. Jaswant Casiano Work Phone: [facility] Work Phone: Start: 12-30-2022 End: 12-30-[address] Ana Casiano Work Phone: [facility] Work Phone: Start: 12-30-2022 End: 12-30-[address] Ana Casiano Work Phone: [facility]-Cat Scan, [facility] Work Phone: Start: 12-26-2022 End: 12-26-2022 Non-patient / Non-visit Dr. Ana Casiano Work Phone: [facility] Work Phone: Start: 12-26-[address] [facility] Work [facility]: Start: 12-22-2022 Non-patient / Non-visit Dr. Jaswant Casiano Work Phone: [facility] Start: 12-22-2022 End: 12-22-2022 Admission to same day surgery center Dr. Ana Casiano Work Phone: [facility]-Endoscopy Work Phone: Start: 12-22-2022 End: 12-22-[address] Ana Casiano Work Phone: [facility] Work Phone: Start: 12-05-2022 End: 12-05-[address] Ana Casiano Work Phone: [facility] Work Phone: Start: 11-24-2022 End: 11-24-[address] Ana Casiano Work Phone: [facility] Work Phone: Start: 11-19-2022 End: 11-19-[address] Ana Casiano Work Phone: [facility] Work Phone: Start: 11-19-2022 End: 11-19-[address] Ana Casiano Work Phone: [facility]-Laboratory, Specimen Work Phone: Start: 11-19-2022 End: 11-19-[address] Ana Casiano Work Phone: [facility] Work Phone: Start: 10-17-2022 End: 10-17-[address] Ana Casiano Work Phone: [facility] Work Phone: Start: 06-16-2022 End: 06-16-[address] Ana Casiano Work Phone: [facility] Work Phone: Start: 06-16-2022 End: 06-16-[address] Ana Casiano Work Phone: [facility] Start: 05-16-2022 End: 05-16-[address] Ana Casiano Work Phone: [facility]-Medical Out Start: 05-16-2022 End: 05-16-[address] Ana Casiano Work Phone: [facility] Work Phone: Start: 05-16-2022 End: 05-16-[address] Ana Casiano Work Phone: [facility] Start: 05-12-2022 End: 05-12-[address] Ana Casiano Work Phone: [facility] Start: 05-07-2022 End: 05-07-[address] Ana Casiano Work Phone: [facility] Work Phone: Start: 05-07-2022 End: 05-07-[address] Ana Casiano Work Phone: [facility] Start: 03-07-2022 End: 03-07-[address] Ana Casiano Work Phone: [facility] Work Phone: Start: 03-07-2022 End: 03-07-[address] Ana Casiano Work Phone: [facility] Start: 02-28-2022 Non-patient / Non-visit Dr. Jaswant Casiano Work Phone: [facility] Start: 02-28-2022 End: 02-28-[address] Ana Casiano Work Phone: [facility] Work Phone: Start: 02-28-2022 End: 02-28-[address] Ana [facility]iano [facility] Start: 02-13-2022 End: 02-13-[address] Ana Casiano Work Phone: [facility] Work Phone: Start: 02-13-2022 End: 02-13-[address] Ana Casiano Work Phone: [facility] Start: 02-12-2022 End: 02-12-[address] Ana Casiano Work Phone: [facility] Work Phone: Start: 02-12-2022 End: 02-12-[address] Ana Casiano Work Phone: [facility] Start: 02-10-2022 End: 02-10-2022 Emergency department patient visit Dr. Ana Casiano Work Phone: [facility]-Emergency Department Start: 02-07-2022 End: 02-07-[address] Ana Casiano Work Phone: [facility] Work Phone: Start: 02-07-2022 End: 02-07-[address] [facility] Phone[facility] Start: 01-10-2022 End: 01-10-[address] Ana Casiano Work Phone: [facility] Work Phone: Start: 01-10-2022 End: 01-10-[address] Ana Casiano Work Phone: [facility] Start: 12-18-2021 End: 12-18-2021 Emergency department patient visit Dr. Ana Casiano Work Phone: [facility]-Emergency Department Start: 12-03-2021 End: 12-03-[address] Ana Casiano Work Phone: [facility] Work Phone: Start: 12-03-2021 End: 12-03-[address] Ana Csaiano Work Phone: [facility], Specimen Start: 11-28-2021 End: 11-28-[address] [facility] Start: 11-21-2021 End: 11-21-[address] Ana Casiano Work Phone: [facility] Start: 10-10-2021 End: 10-10-[address] Ana Casiano Work Phone: [facility]-Radiology, [facility] Start: 08-16-2021 End: 08-16-[address] Ana Casiano Work Phone: [facility] Start: 07-03-2021 End: 07-03-[address] Ana Casiano Work Phone: [facility]-Medical Surgical 3 Outp Start: 06-28-2021 End: 06-28-[address] Ana Casiano Work Phone: [facility], Specimen Start: 06-14-2021 Non-patient / Non-visit Dr. Jaswant Casiano Work Phone: [facility] Start: 06-13-2021 Non-patient / Non-visit Dr. Jaswant Casiano Work Phone: [facility] Start: 06-13-2021 Non-patient / Non-visit Dr. Jaswant Casiano Work Phone: [facility] Start: 06-12-2021 End: 06-14-2021 Evaluation and management of inpatient Dr. Ana Casiano [facility] Start: 05-23-2021 End: 05-23-[address] Ana Casiano Work Phone: [facility] Start: 05-17-2021 End: 05-17-[address] Ana Casiano Work Phone: [facility] Start: 05-09-2021 End: 05-09-[address] Ana Casiano Work Phone: [facility] Start: 03-22-2021 End: 03-22-[address] Ana Casiano Work Phone: [facility] Start: 03-15-2021 Non-patient / Non-visit Dr. Jaswant Casiano Work Phone: [facility] Start: 03-15-2021 End: 03-15-[address] Ana Casiano [facility] Start: 03-14-2021 Non-patient / Non-visit Dr. Jaswant Casiano Work Phone: [facility] Start: 03-14-2021 End: 03-14-[address] Ana Casiano Work Phone: [facility]-Cat Scan, [facility] Start: 03-01-2021 End: 03-01-[address] Ana Casiano Work Phone: [facility]-Laboratory Start: 02-27-2021 End: 02-27-[address] Ana Casiano Work Phone: [facility] Procedures Date Procedure Procedure Detail Performing Clinician Start: 09-05-[address] Danisha Casiano MD Work Phone: Comment on above: Performed at: [employer] [address] [id number] Director: Aime Guadalupe PhD, Phone: [phone] Start: 09-05-2024 Measurement of Borre jessica burgdorferi antibody Dr. Ana Casiano MD Work Phone: Comment on above: Lyme antibodies not detected. Reflex testing is notindicated.No laboratory evidence of infection with B. burgdorferi(Lyme disease). Negative results may occur in patientsrecently infected (less than or equal to 14 days) with B.burgdorferi. If recent infection is suspected, repeattesting on a new sample collected in 7 to 14 days isrecommended.Performed at: [facility] [address] [id number] Director: Aime Guadalupe PhD, Phone: [phone] Start: 09-03-2024 X-ray of chest, PA a nd lateral views Dr. Ana Casiano MD Work Phone: Start: 09-03-[address] Ana Casiano MD Work Phone: Start: 06-20-2024 Prostate specific an tigen measurement [...] w /collj spec when pfrmd Connie Ambrose TAX DIRECTOR.INDUSTRIAL ILLUMINATING ENGINEER Work Phone: Start: 04-01-2024 Colonoscopy Dominic cuevas [...] Speci men Type: BLOOD SPECIMEN Ordering Facility: [facility] Address: [address] [place] [address] Performed By: #### T SCR #### [place] [facility] CLIA [id number] 1 [place] [address] [place] Start: 05-01-2023 Plain [...] Casiano Work Phone: Start: 11-19-2022 Dr. Ana Otoole [facility] Work Phone: Start: 05-16-2022 CT of abdomen [...] BP scrn no perf at interval Flakito duarte MD Work Phone: Start: 05-10-2021 End: 05-10-2021 Calc BMI out nrm freda nof/u Flakito maher MD Work Phone: Start: 05-10-2021 End: [...] 05-10-2021 End: 05-10-2021 Patient encounter procedure Flakito duarte MD Work Phone: Start: 05-10-2021 End: 05-10-2021 Pt falls assess docd 2/> falls/fall w/injury/yr Flakito Olson MD Work Phone: Start: 04-22-2021 End: 04-22-2021 BP scrn no perf at interval Flakito duarte MD Work Phone: Start: 04-22-2021 End: 04-22-2021 Calc BMI abv up freda f/u Flakito oseguera MD Work Phone: Start: 04-22-2021 End: 04-22-2021 Current tobacco non-user cad cap copd pv dm Flakito Olson MD Work Phone: Start: 04-22-2021 End: 04-22-2021 Docrev cur meds by elig clin Flakito maher MD Work Phone: Start: 04-22-2021 End: 04-22-2021 No doc of pain Flakito Olson MD Work Phone: Start: 04-22-2021 End: 04-22-2021 Patient encounter procedure Flakito duarte MD Work Phone: Start: 03-14-[address] Ana mendoza Work Phone: Start: 03-14-2021 CT angiography of co ronary arteries Dr. Ana Casiano Work Phone: Start: 01-18-2015 Colonoscopy Apla salter TAX DIRECTOR.INDUSTRIAL ILLUMINATING ENGINEER Work Phone: Viral antigen assay Dr. Ana Casiano Work Phone: NEGATED: Highlighted rowStart: 05-10-2021 End: 05-10-2021 Documentation of current medications Bharati Medina AT NEGATED: Highlighted rowStart: 04-22-2021 End: 04-22-2021 Documentation of current medications Lali Reynolds AT Plan of Treatment Date Care Activity Detail Author Start: 04-01-2034 Screening for malignant neoplasm of colon [facility] Start: 12-08-2032 Urine microalbumin profile DTaP,Tdap,Td Vaccine (3 - Td or Tdap) [facility] Start: 04-01-2029 Screening for malignant neoplasm of colon [facility] Start: 03-14-2027 Screening for malignant neoplasm of colon Cologuard (FIT-DNA) [facility] Start: 05-12-2026 Diabetes Screening Diabetes Screening [facility] Start: 04-06-2026 Diabetes Screening Diabetes Screening [facility] Start: 2025 RSV Vaccine (1 - 1-dose 75+ series) RSV Vaccine (1 - 1-dose 75+ series) [facility] Start: 03-25-2025 BP Controlled (<130/80) BP Controlled (<130/80) [facility] Start: 01-18-2025 Screening for malignant neoplasm of colon [facility] Start: 11-25-2024 BP Controlled (<130/80) BP Controlled (<130/80) [facility] Start: 10-17-2024 End: 10-17-2025 BIOAVAILABLE TESTOSTERONE, ADULT MALE BIOAVAILABLE TESTOSTERONE, ADULT MALE Lab Routine Erectile dysfunction of organic origin Expected: 10/17/2024, Expires: 10/17/2025 [facility] Work Phone: Comment on above: Expected: 10/17/2024, Expires: Start: 10-17-2024 End: 10-17-2025 Estradiol (E2) [Mass/volume] in Serum or Plasma ESTRADIOL-17B BLD Lab Routine Erectile dysfunction of organic origin Expected: 10/17/2024, Expires: 10/17/2025 [facility] Comment on above: Expected: 10/17/2024, Expires: Start: 10-17-2024 End: 10-17-2025 Lutropin [Units/volume] in Serum or Plasma LUTEINIZING HORMONE Lab Routine Erectile dysfunction of organic origin Expected: 10/17/2024, Expires: 10/17/2025 [facility] Comment on above: Expected: 10/17/2024, Expires: Start: 10-17-2024 End: 10-17-2025 Prolactin [Mass/volume] in Serum or Plasma PROLACTIN Lab Routine Erectile dysfunction of organic origin Expected: 10/17/2024, Expires: 10/17/2025 [facility] Comment on above: Expected: 10/17/2024, Expires: Start: 10-10-2024 Influenza vaccination Influ[facility] Start: 10-06-2024 X-ray of ankle, three or more views Ankle min 3 Views [facility] Start: 10-06-2024 X-ray of foot, three or more views Foot min 3 Views [facility] Start: 10-06-2024 X-ray of unilateral ribs, two views without x-ray of chest Ribs Unil 2V No CXR [facility] Start: 10-06-2024 XR Ankle GE 3 Views [facility] Start: 10-06-2024 XR Foot GE 3 Views [facility] Start: 10-06-2024 XR Ribs Views [facility] Start: 09-03-2024 End: 09-03-2024 [facility] Start: 09-03-2024 [facility] Start: 06-02-2024 BP Controlled (<130/80) BP Controlled (<130/80) [facility] Start: 05-04-2024 BP Controlled (<130/80) BP Controlled (<130/80) [facility] Start: 04-19-2024 BP Controlled (<130/80) BP Controlled (<130/80) [facility] Start: 04-08-2024 End: 04-08-2024 Follow-up encounter 04/08/2024 10:30 AM EST [facility] General Surgery [address] [place] [address] Connie Ambrose APRN.INDUSTRIAL ILLUMINATING ENGINEER [address] [place] [address] 04-01 colon follow up Virtual General Surgery Comment on above: 04-01 colon follow up Virtual Start: 04-02-2024 BP Controlled (<130/80) BP Controlled (<130/80) [facility] Start: 04-01-2024 End: 04-01-2024 Patient encounter procedure 04/01/2024 2:45 PM EST Appointment Ambulatory Surgery [address] [place] [address] Dominic Gonzalez MD [address] [place] [address] Ambulatory Surgery Start: 03-30-2024 BP Controlled (<130/80) BP Controlled (<130/80) [facility] Start: 02-10-2024 Advance Directive Discussion Advance Directive Discussion [facility] Start: 11-26-2023 End: 11-26-2023 Patient encounter procedure 11/26/2023 11:30 AM EDT Office Visit [facility] BAR[facility]RIC DEPARTMENT 1 [facility] [place] [address] Ruth Sullivan MD 1 [facility] [facility] [address] [place] [address] Follow up testing results [facility] DEPARTMENT Comment on above: Follow up testing results Start: 11-20-2023 End: 11-20-2023 Patient encounter procedure 11/20/2023 11:00 AM EDT Office Visit [facility] BARIATRIC DEPARTMENT 1 [facility] [place] [address] Ruth Sullivan MD [address] [address] F/U UGI [facility] DEPARTMENT Comment on above: F/U UGI Start: 11-06-2023 End: 11-06-2023 Patient encounter procedure 11/06/2023 10:00 AM EDT Appointment [facility] [place], [place] [id number] History of fundoplication [Z98.890] [facility] Comment on above: History of fundoplication [Z98.890] Start: 10-16-2023 End: 10-16-2023 Patient encounter procedure 10/16/2023 11:00 AM EDT Appointment [facility] [address] [place] [address] [facility] Start: 10-11-2023 Covid-19 Vaccine ( season) Covid-19 Vaccine () [facility] Start: 10-11-2023 Influenza vaccination Influenza Vaccine (#1) [facility] Start: 09-24-2023 End: 09-24-2023 Patient encounter procedure 09/24/2023 3:00 PM EDT Appointment [facility] [address] [place] [address] Ruth Sullivan MD [address] [address] [facility] Start: 09-18-2023 End: 09-18-2023 Follow-up encounter 09/18/2023 8:30 AM EDT [facility]IC [facility] [place] [address] Ruth Sullivan MD 1 [facility] [address] [place], [place] [id number] HBC-3 month follow up [facility] BARIATRIC DEPARTMENT Comment on above: HBC-3 month follow up Start: 06-05-2023 Shingrix Vaccine (2 of 2) Shingrix Vaccine (2 of 2) [facility] Start: 05-01-2023 [facility] Start: 04-13-2023 End: 07-13-2023 CBC panel - Blood by Automated count CBC Lab Routine Preoperative examination Expected: 04/13/2023, Expires: 07/13/2023 [facility] Work Phone: Comment on above: Expected: 04/13/2023, Expires: Start: 04-13-2023 End: 07-13-2023 Comprehensive metabolic 2000 panel - Serum or Plasma COMP METABOLIC PANEL Lab Routine Preoperative examination Expected: 04/13/2023, Expires: 07/13/2023 [facility] Work Phone: Comment on above: Expected: 04/13/2023, Expires: Start: 04-13-2023 End: 07-13-2023 CONFIRM BLOOD TYPE CONFIRM BLOOD TYPE Blood Bank Routine Preoperative examination Expected: 04/13/2023, Expires: 07/13/2023 [facility] Work Phone: Comment on above: Expected: 04/13/2023, Expires: Start: 04-02-2023 End: 07-02-2023 Basic metabolic 2000 panel - Serum or Plasma BASIC METABOLIC PNL Lab Routine Gastroesophageal reflux disease with esophagitis without hemorrhage Expected: 04/02/2023, Expires: 07/02/2023 [facility] Work Phone: Comment on above: Expected: 04/02/2023, Expires: Start: 04-02-2023 End: 07-02-2023 CBC W Auto Differential panel - Blood CBC + DIFF Lab Routine Gastroesophageal reflux disease with esophagitis without hemorrhage Expected: 04/02/2023, Expires: 07/02/2023 [facility] Work Phone: Comment on above: Expected: 04/02/2023, Expires: 4 Start: 03-30-2023 End: 06-29-2023 TYPE + SCREEN TYPE + SCREEN Blood Bank Routine Preoperative examination Expected: 03/30/2023, Expires: 06/29/2023 [facility] Work Phone: Comment on above: Expected: 03/30/2023, Expires: Start: 03-20-2023 NM Whole body Bone Views [facility] Start: 03-20-2023 Radionuclide whole body bone study Bone Scan Whole Body [facility] Start: 02-13-2023 [facility] Start: 02-13-2023 End: 02-13-2023 [facility] Start: 02-12-2023 [facility] Start: 02-09-2023 Advance Directive Discussion Advance Directive Discussion [facility] Start: 02-09-2023 Behavioral Health Screening Behavioral Health Screening [facility] Start: 02-09-2023 Depression Assessment Depression Assessment [facility] Start: 02-08-2023 [facility] Start: 01-14-2023 [facility] Start: 12-22-2022 Egd transoral biopsy single/multiple EGD BIOPSY SINGLE/MULTIPLE [facility] Start: 12-22-2022 Patient discharge [facility] Start: 10-10-2022 Covid-19 Vaccine () Covid-19 Vaccine () [facility] Start: 05-16-2022 Iv infusion therapy prophylaxis/dx ea hour THER/PROPH/DIAG IV INF ADDON [facility] Start: 05-16-2022 Iv infusion therapy/prophylaxis /dx 1st to 1 hr THER/PROPH/DIAG IV INF INIT [facility] Start: 03-07-2022 Procedure [facility] Start: 02-10-2022 [facility] Start: 12-18-2021 Blood chemistry [facility] Work Phone: Start: 12-18-2021 End: 12-18-2021 [facility] Start: 06-14-2021 Patient discharge [facility] Work Phone: Start: 06-13-2021 End: 06-14-2021 [facility] Work Phone: Start: 06-13-2021 Tobacco use cessation education [facility] Work Phone: Start: 06-13-2021 Consultation [facility] Work Phone: Start: 06-13-2021 Removal of urinary catheter [facility] Work Phone: Start: 06-12-2021 Admission procedure [facility] Work Phone: Start: 06-12-2021 Anes xtrprtl lower abd ur tract renal don nfrct ANESTH KIDNEY/URETER SURG [facility] Work Phone: Start: 06-12-2021 Laparoscopy surg partial nephrectomy LAPARO PARTIAL NEPHRECTOMY [facility] Work Phone: Start: 06-12-2021 Following clinical pathway protocol [facility] Work Phone: Start: 06-12-2021 Following clinical pathway protocol [facility] Work Phone: Start: 06-12-2021 Incentive spirometry [facility] Work Phone: Start: 06-12-2021 Application of intermittent pneumatic compression device [facility] Work Phone: Start: 06-12-2021 Measuring intake and output [facility] Work Phone: Start: 06-12-2021 Patient education [facility] Work Phone: Start: 06-12-2021 Provision of activity privileges [facility] Work Phone: Start: 06-12-2021 Taking patient vital signs [facility] Work Phone: Start: 06-12-2021 Vital signs measurements [facility] Work Phone: Start: 06-12-2021 [facility] Work Phone: Start: 06-12-2021 [facility] Work Phone: Start: 05-10-2021 End: 05-10-2021 Patient encounter procedure Appointment [facility] Work Phone: Start: 04-22-2021 End: 04-22-2021 Patient encounter procedure Appointment [facility] Work Phone: Start: 04-22-2021 End: 04-22-2021 Mri spinal canal lumbar w/o & w/contr matrl MRI lumbar with and without contrast [facility] Work Phone: Start: 04-22-2021 End: 04-22-2021 Mri spinal canal thoracic w/o & w/contr matrl MRI thoracic with and without contrast [facility] Work Phone: Start: 10-27-2018 Pneumococcal Vaccine: 50+ (2 of 2 - PCV20 or PCV21) Pneumococcal Vaccine: 50+ (2 of 2 - PCV20 or PCV21) [facility] Start: 10-27-2018 Pneumococcal Vaccine: 50+ (2 of 2 - PPSV23) Pneumococcal Vaccine: 50+ (2 of 2 - PPSV23) [facility] Start: 10-27-2018 Pneumococcal Vaccine: 65+ (2 of 2 - PPSV23 or PCV20) Pneumococcal Vaccine: 65+ (2 of 2 - PPSV23 or PCV20) [facility] Start: 10-11-2015 Medicare Annual Wellness Visit Medicare Annual Wellness Visit [facility] Start: 2010 RSV Vaccine (1 - 1-dose 60+ series) RSV Vaccine (1 - 1-dose 60+ series) [facility] Start: 2010 RSV Vaccine (1 - Risk 60-74 years 1-dose series) RSV Vaccine (1 - Risk 60-74 years 1-dose series) [facility] Start: 2000 Shingrix Vaccine (1 of 2) Shingrix Vaccine (1 of 2) [facility] Start: 09-14-1995 Diabetes Screening Diabetes Screening [facility] Start: 09-14-1995 Screening for malignant neoplasm of colon [facility] Start: 1985 Lipid panel Lipid Screening [facility] Start: 1968 Annual PCP Team Chronic Disease Visit Annual PCP Team Chronic Disease Visit [facility] Start: 1968 Anxiety Screening Anxiety Screening [facility] Start: 1968 Depression Screening Depression Screening [facility] Start: 1968 Hepatitis C screening Hepatitis C Screening [facility] Albumin/Globulin [Ma ss Ratio] in Serum or Plasma by Electrophoresis [facility] Basic metabolic 2008 panel with ionized calcium - Serum or Plasma [facility] Cardiac event recording [facility] Catheterization of l eft heart [facility] CBC W Auto Different ial panel - Blood [facility] CT Chest WO contrast [facility] Cyclic citrullinated peptide IgG Ab [Units/volume] in Serum or Plasma [facility] Work Phone: End: 08-27-2024 EGD DIAGNOSTIC EGD DIAGNOSTIC Endoscopy Routine Thrush of mouth and esophagus (HCC) (HCC) 1 Occurrences starting 08/28/2023 until 08/27/2024 [facility] Work Phone: Comment on above: 1 Occurrences starting 08/28/2023 until 08/27/2024 Electrophoresis: albumin [facility] Electrophoresis: [id number] [facility] Electrophoresis: [id number] [facility] Electrophoresis: traci ma globulin [facility] End: 03-25-2025 Flexible sigmoidoscopy study COLONOSCOPY DIAGNOSTIC Endoscopy Routine Positive colorectal cancer screening using Cologuard test Diarrhea, unspecified type 1 Occurrences starting 03/25/2024 until 03/25/2025 [facility] Work Phone: Comment on above: 1 Occurrences starting 03/25/2024 until 03/25/2025 Globulin measurement [facility] Lipid 1996 panel - S jluis or Plasma [facility] NM Heart Views W str ess and W radionuclide IV [facility] Work Phone: NM Heart Views W str ess and W radionuclide IV [facility] Patient Education [facility] Work Phone: Patient referral [facility] Work Phone: Procedure [facility] Work Phone: Protein electrophore sis panel - Serum or Plasma [facility] Retinol [Mass/volume ] in Serum or Plasma [facility] End: 10-23-2024 RF Gastrointestinal tract upper Views W barium contrast PO XR UPPER GI SINGLE CONTRAST Radiology Routine History of fundoplication 1 Occurrences starting 09/24/2023 until 10/23/2024 [facility] Comment on above: 1 Occurrences starting 09/24/2023 until 10/23/2024 Serum protein electrophoresis [facility] SURGICAL PATHOLOGY SURGICAL PATH OLOGY Lab Routine Thrush of mouth and esophagus (HCC) (HCC) Release Upon Ordering for 1 Occurrences starting 09/24/2023 [facility] Work Phone: Comment on above: Release Upon Ordering for 1 Occurrences starting 09/24/2023 Tissue Pathology bio psy report [facility] Work Phone: Comment on above: Release Upon Ordering for 1 Occurrences starting 04/01/2024, 1 completed Total globulins measurement [facility] Work Phone: [facility] Immunizations Immunization Date Immunization Notes Care Provider Juan Jose [facility] 02-20-2023 influenza virus vaccine, unspecified formulation Ruth Sullivan MD Work Phone: [facility] 04-17-2020 Covid (Moderna) Dr. Mcintosh [facility] Work Phone: [facility] 03-20-2020 Covid (Moderna) Dr. Ana Nolen Work Phone: [facility] 12-25-2014 influenza, injectabl e, quadrivalent, preservative free Dr. Ana Casiano Work Phone: [facility] 12-25-2014 influenza, seasonal, injectable Dr. Ana Casiano Work Phone: [facility] 06-26-2014 tetanus toxoid, redu codi diphtheria toxoid, and acellular pertussis vaccine, adsorbed Dr. Ana Casiano Work Phone: [facility] Payers Date Payer Category Payer Self-pay [id number] 2022 Private Health Insurance [id number] 2022 Medicare [id number] 2015 Medicare [id number] 2015 Medicare [id number] Medicare [id number] Unknown [id number] Unknown [id number] Unknown [id number] Unknown [facility] DO NOT USE 22 [id number] Unknown [id number] 2 Unknown [id number] [id number] 2 Unknown [id number] [id number] 2 Unknown [id number] [id number] 2 Unknown [id number] [id number] 2 Unknown [id number] [id number] 2 Unknown [id number] 2.16.840.1.598866.3.579.2.46 2 Unknown [id number] 2.16.840.1.763900.3.579.2.46 2 Unknown [id number] 2.16.840.1.284781.3.579.2.46 2 Unknown [id number] [id number] 2 Unknown [id number] 2.16.840.1.084672.3.579.2.46 2 Unknown [id number] [id number] 2 Unknown [id number] 2.16.840.1.094045.3.579.2.46 2 Unknown [id number] [id number] 2 Unknown [id number] [id number] 2 Unknown [id number] [id number] 2 Unknown [id number] [id number] 2 Unknown [id number] [id number] 2 Social History Date Type Detail Facility Start: 02-27-2021 End: 05-01-2023 Assertion Unknown if ever smoked [facility] Work Phone: Start: 03-22-2018 Rare [facility] Start: 03-22-2018 None [facility] Start: 12-13-2017 Spouse/ Signif icant Other [facility] Start: 06-09-2020 Non-smoker [facility] Start: 1950 Sex Assigned At Male W [facility] Start: 03-06-2023 End: 10-06-2024 Tobacco smoking status NHIS Never smoked tobacco [facility] Start: 03-06-2023 Tobacco use and exposure Smokeless tobacco non-user [facility] Start: 03-30-2023 End: 05-27-2024 Alcohol intake Current drinker of alcohol (finding) [facility] Start: 03-06-2023 End: 03-30-2023 History of Social function [facility] Work Phone: Start: 03-06-2023 End: 03-30-2023 Tobacco use panel [facility] Work Phone: Start: 10-01-2013 National Score (1-100), lower number is lower risk 48 [facility] Work Phone: Start: 05-10-2015 Alcohol Comment [facility] Start: 1950 Sex Assigned At Not on file [facility] Start: 10-27-2019 Gender identity Identifies as male gender (finding) [facility] Start: 10-27-2019 Sexual orientation Heterosexual (fin ding) [facility] Start: 05-05-2023 Alcohol Comment [id number] times monthly [facility] Has the electric, gas, oil, or water company threatened to shut off services in your home in past 12Mo No [facility] Work Phone: (I/We) worried whether (my/our) food would run out before (I/we) got money to buy more. Never true [facility] Work Phone: NEGATED: Highlighted rowStart: 05-10-2021 End: 05-10-2021 Employment detail Employment detail [facility] Work Phone: Medical Equipment Procedure Code Equipment Code Equipment Original Text Equipment Identifier Dates Robot-assisted partial nephrectomy KIRSTY JONES LG FDA Start: 06-12-2021 Robot-assisted partial nephrectomy CLIP,LAPRA-TY FDA Start: 06-12-2021 Robot-assisted partial nephrectomy SEALANT,FLOSEAL HEMOSTATIC 5ML FDA Start: 06-12-2021 Robot-assisted partial nephrectomy Ligation clip, synthetic polymer, non-bioabsorbable [id number] FDA Start: 06-12-2021 Robot-assisted partial nephrectomy Ligation clip, synthetic polymer, non-bioabsorbable [id number] FDA Start: 06-12-2021 Robot-assisted partial nephrectomy CLIP,HEMKEMAL [...] Start: 06-12-2021 Robot-assisted partial nephrectomy CLIP,HEMOLOCK ALONDRA GIBRAN FDA Start: 06-12-2021 Robot-assisted partial nephrectomy CLIP,LAPRA-TY FDA Start: 06-12-2021 Robot-assisted partial nephrectomy SEALANT,FLOSEAL HEMOSTATIC 5ML FDA Start: 06-12-2021 Robot-assisted partial nephrectomy CLIP,HEMOLOCK ALONDRA GIBRAN FDA Start: 06-12-2021 Robot-assisted partial nephrectomy CLIP,LAPRA-TY FDA Start: 06-12-2021 Robot-assisted partial nephrectomy SEALANT,FLOSEAL HEMOSTATIC 5ML FDA Start: 06-12-2021 Robot-assisted partial nephrectomy CLIP,HEMOLOCK ALONDRA GIBRAN FDA Start: 06-12-2021 Robot-assisted partial nephrectomy CLIP,LAPRA-TY FDA Start: 06-12-2021 Robot-assisted partial nephrectomy SEALANT,FLOSEAL HEMOSTATIC 5ML FDA Start: 06-12-2021 Robot-assisted partial nephrectomy CLIP,HEMOLOEDMUND CANTU GIBRAN FDA Start: 06-12-2021 Robot-assisted partial nephrectomy [...] LOCKING LAG SC FDA Start: 03-20-2018 TRIGEN [id number] 1.5 NAIL FDA Start: 03-20-2018 INTEGRATED INTER LOCKING LAG SC FDA Start: 03-20-2018 TRIGEN [id number] 1.5 NAIL FDA Start: 03-20-2018 INTEGRATED INTER LOCKING LAG SC FDA Start: 03-20-2018 TRIGEN [id number] 1.5 NAIL FDA Start: 03-20-2018 INTEGRATED INTER LOCKING LAG SC FDA Start: 03-20-2018 TRIGEN FCAMNX7XN 1.5 NAIL FDA Start: 03-20-2018 INTEGRATED INTER LOCKING LAG SC FDA Start: 03-20-2018 TRIGEN IFUVLQ0II 1.5 NAIL FDA Start: 03-20-2018 INTEGRATED INTER LOCKING LAG SC FDA Start: 03-20-2018 TRIGEN QIGKRK9QJ 1.5 NAIL FDA Start: 03-20-2018 INTEGRATED INTER LOCKING LAG SC FDA Start: 03-20-2018 TRIGEN RAKMEH3GO 1.5 NAIL FDA Start: 03-20-2018 INTEGRATED INTER LOCKING LAG SC FDA Start: 03-20-2018 TRIGEN XZCLUB5FT 1.5 NAIL FDA Start: 03-20-2018 INTEGRATED INTER LOCKING LAG SC FDA Start: 03-20-2018 TRIGEN OOHBSE7AY 1.5 NAIL FDA Start: 03-20-2018 INTEGRATED INTER LOCKING LAG SC FDA Start: 03-20-2018 TRIGEN ZRKKQX9DA 1.5 NAIL FDA Start: 03-20-2018 INTEGRATED INTER LOCKING LAG SC FDA Start: 03-20-2018 TRIGEN PXGKUC6WJ 1.5 NAIL FDA Start: 03-20-2018 INTEGRATED INTER LOCKING LAG SC FDA Start: 03-20-2018 TRIGEN JFBKDO4RY 1.5 NAIL FDA Start: 03-20-2018 INTEGRATED INTER LOCKING LAG SC FDA Start: 03-20-2018 TRIGEN LOESXX8HI 1.5 NAIL FDA Start: 03-20-2018 INTEGRATED INTER LOCKING LAG SC FDA Start: 03-20-2018 TRIGEN ZJYQTC1FU 1.5 NAIL FDA Start: 03-20-2018 INTEGRATED INTER LOCKING LAG SC FDA Start: 03-20-2018 TRIGEN CTLFOG3JY 1.5 NAIL FDA Start: 03-20-2018 INTEGRATED INTER LOCKING LAG SC FDA Start: 03-20-2018 TRIGEN GHTIKS8VL 1.5 NAIL FDA Start: 03-20-2018 INTEGRATED INTER LOCKING LAG SC FDA Start: 03-20-2018 TRIGEN CNMFKC9WF 1.5 NAIL FDA Start: 03-20-2018 INTEGRATED INTER LOCKING LAG SC FDA Start: 03-20-2018 TRIGEN YBXJMT5GN 1.5 NAIL FDA Start: 03-20-2018 INTEGRATED INTER LOCKING LAG SC FDA Start: 03-20-2018 TRIGEN KQFVZL0OW 1.5 NAIL FDA Start: 03-20-2018 INTEGRATED INTER LOCKING LAG SC FDA Start: 03-20-2018 TRIGEN XEKRMR3QA 1.5 NAIL FDA Start: 03-20-2018 INTEGRATED INTER LOCKING LAG SC FDA Start: 03-20-2018 TRIGEN HJDPER0YI 1.5 NAIL FDA Start: 03-20-2018 Gastrointestinal telemetric monitoring system [id number] FDA Start: 12-22-2022 INTEGRATED INTER LOCKING LAG SC FDA Start: 03-20-2018 TRIGEN KXWFXR4US 1.5 NAIL FDA Start: 03-20-2018 INTEGRATED INTER LOCKING LAG SC FDA Start: 03-20-2018 TRIGEN XUCQBW7GG 1.5 NAIL FDA Start: 03-20-2018 INTEGRATED INTER LOCKING LAG SC FDA Start: 03-20-2018 TRIGEN QELBUP8KW 1.5 NAIL FDA Start: 03-20-2018 INTEGRATED INTER LOCKING LAG SC FDA Start: 03-20-2018 TRIGEN PAERFU3RM 1.5 NAIL FDA Start: 03-20-2018 INTEGRATED INTER LOCKING LAG SC FDA Start: 03-20-2018 TRIGEN MEPCBV3OB 1.5 NAIL FDA Start: 03-20-2018 INTEGRATED INTER LOCKING LAG SC FDA Start: 03-20-2018 TRIGEN MLJLBY4EI 1.5 NAIL FDA Start: 03-20-2018 INTEGRATED INTER LOCKING LAG SC FDA Start: 03-20-2018 TRIGEN XEFIOJ0XF 1.5 NAIL FDA Start: 03-20-2018 Mesh Bio-A Synth etic 10x7cm Surgical Reinforcement Hernia Repair - [id number] Start: 05-12-2023 INTEGRATED INTER LOCKING LAG SC FDA Start: 03-20-2018 TRIGEN GAHYYA1LG 1.5 NAIL FDA Start: 03-20-2018 INTEGRATED INTER LOCKING LAG SC FDA Start: 03-20-2018 TRIGEN RGEQUQ5PA 1.5 NAIL FDA Start: 03-20-2018 INTEGRATED INTER LOCKING LAG SC FDA Start: 03-20-2018 TRIGEN JFJMKI4AW 1.5 NAIL FDA Start: 03-20-2018 INTEGRATED INTER LOCKING LAG SC FDA Start: 03-20-2018 TRIGEN AFUVWA2XM 1.5 NAIL FDA Start: 03-20-2018 INTEGRATED INTER LOCKING LAG SC FDA Start: 03-20-2018 TRIGEN UFIHVU2OZ 1.5 NAIL FDA Start: 03-20-2018 INTEGRATED INTER LOCKING LAG SC FDA Start: 03-20-2018 TRIGEN QPQLKZ1AM 1.5 NAIL FDA Start: 03-20-2018 INTEGRATED INTER LOCKING LAG SC FDA Start: 03-20-2018 TRIGEN GYQHYA8KB 1.5 NAIL FDA Start: 03-20-2018 Goals Date Patient Goal Desired Activity /State Functional Status Date Assessment Result Facility 06-14-2021 Functional status Ambulates;Up ad aspen [facility] Work Phone: 06-28-2014 Are you deaf, or do you have serious difficulty hearing No 06/28/2014 1:11 PM Jef Celis LPN No [facility] 06-28-2014 Are you blind, or do you have serious difficulty seeing, even when wearing glasses No 06/28/2014 1:11 PM Jef Celis LPN No [facility] 06-28-2014 Do you have serious difficulty walking or climbing stairs No 06/28/2014 1:11 PM Jef Celis LPN No [facility] 06-28-2014 Do you have difficul ty dressing or bathing No 06/28/2014 1:11 PM Jef Celis LPN No [facility] 06-28-2014 Because of a physica l, mental, or emotional condition, do you have difficulty doing errands alone such as visiting a physician's office or shopping No 06/28/2014 1:11 PM Jef Celis LPN No [facility] Mental Status Date Assessment Result Facility 09-03-2024 Cognitive function Voice/Name [facility] Work Phone: 05-01-2023 Cognitive function Voice/Name [facility] Work Phone: 12-22-2022 Cognitive function Level Of Cons ciousness Follows Commands;Drowsy [facility] Work Phone: 12-22-2022 Cognitive function Voice/Name [facility] Work Phone: 05-16-2022 Cognitive function Level Of Cons ciousness Awake;Alert;Appropriate;Fol lows Commands [facility] Work Phone: 02-10-2022 Cognitive function Voice/Name [facility] Work Phone: 12-18-2021 Cognitive function Voice/Name [facility] Work Phone: 07-03-2021 Cognitive function Voice/Name;To uch/Shaking;Li ght Pain [facility] Work Phone: 06-14-2021 Cognitive function Appropriate;Cooperativ e [facility] Work Phone: 06-13-2021 Cognitive function Voice/Name [facility] Work Phone: 03-14-2021 Cognitive function Voice/Name [facility] Work Phone: 06-28-2014 Because of a physica l, mental, or emotional condition, do you have serious difficulty concentrating, remembering, or making decisions No 06/28/2014 1:11 PM Jef Celis LPN No [facility] Clinical Notes 12-22-2022 to 10-17-2024 Roderick Kovacs MD - 10/17/2024 11:04 AM EDTPatient Instructions Note Date & Type Note Facility 10-17-2024 Note HNO ID: [id number] Author: RODERICK KOVACS MD Service: ? Author Type: Physician Type: Progress Notes Filed: 10/17/2024 11:07 Note Text: Urology Note Patient info Maria Luz Santana II 1950 [id number] CC: The patient is a 74-year-old male [...] and Cardizem for HTN. He resides in [place] and sought a new urologist due to [...] Stroke Mother Coronary Artery Disease Father 60 [place] x 3 Blood Disease Father Heart Father [...] discussed with the Patient or Patient's Authorized Cushion Filler. As applicable, any other physician, advance practice provider, medical student, or other health professional student that will be observing or involved in the sensitive examination for educational or training purposes was discussed with the Patient or Authorized Cushion Filler. The Patient or Authorized Cushion Filler has agreed to proceed with the sensitive examination. (Sensitive examination includes inspection and/or palpation of the breasts, pelvis, prostate and anorectal regions) Exam: General: Well-appearing, no acute distress Skin: Normal HEENT: Pupils equal, round. Oral cavity, oropharynx clear Neck: Supple, no mass Breast: Deferred Respiratory: Clear to auscultation, bilaterally Cardiovascular: Regular rate and rhythm, no murmurs, rubs, or gallops Abdomen: Soft, non-tender, non-distend (more content not included)... [facility] 10-17-2024 History of Present illness Narrative Images from the original note were not included. Urology Note Patient info Maria Luz Santana II 1950 [id number] CC: The patient is a 74-year-old male [...] and Cardizem for HTN. He resides in [place] and sought a new urologist due to [...] Stroke Mother Coronary Artery Disease Father 60 [place] x 3 Blood Disease Father Heart Father [...] discussed with the Patient or Patient's Authorized Cushion Filler. As applicable, any other physician, advance practice provider, medical student, or other health professional student that will be observing or involved in the sensitive examination for educational or training purposes was discussed with the Patient or Authorized Cushion Filler. The Patient or Authorized Cushion Filler has agreed to proceed with the sensitive [...] be drawn before 11:00 AM at the [place] lab. - Discussed alternative treatment options if [...] changes in Medicare prior authorization process in [place] starting February 09. - Follow-up with DEEP Voss in [place] in about 1 month; instructed patient to contact sooner if interested in penile implant surgery. 3. Essential (primary) hypertension (I10) Patient is currently managed on lisinopril and Cardizem. - Continue current antihypertensive regimen. Discussed IPP and r/b/a at length. [facility] [employer] brochure provided. Recording using ambient [employer] software for draft documentation of the visit was discussed with the patient/authorized career services representative; all questions welcomed and answered. Patient/authorized career services representative agreed to proceed Visit complexity inherent to evaluation and management associated with medical care services that serve as the continuing focal point for all needed health care services and/or with medical care services that are part of ongoing care related to a patient s single, serious condition or a complex condition. Consultation requested by Dr. Ana Casiano MD for an opinion regarding Erectile dysfunction of organic origin [N52.9]. My final recommendations will be communicated back to the requesting physician by way of shared medical record or letter via US mail. Roderick Kovacs MD Director, [facility] Staff, [facility] [1] Social History Tobacco Use Smoking status: Never Smokeless tobacco: Never Vaping Use Vaping status: Never Used Substance Use Topics Alcohol use: Yes Comment: [id number]-0-4 times monthly Drug use: No documented in this encounter [facility] 10-17-2024 Instructions Roderick Kovacs MD - 10/17/2024 11:04 AM EDT We discussed your concerns about erectile dysfunction and trouble urinating: - I prescribed Cialis for you to take once daily at a low dose. This may help with both your erections and urination. The prescription has been sent to your [facility] pharmacy. Take it like a daily vitamin. [...] your testosterone levels. Please go to the [facility] lab before 11:00 AM tomorrow. Fasting is not required. Follow-up: - I will schedule a follow-up appointment for you with my physician admin assistant, Tristen Voss, in [place]. He specializes in erectile dysfunction and can assist with further management if needed. - If you decide you are interested in the penile implant or have any concerns after trying Cialis, please contact me directly. Please complete the blood work as soon as possible and let us know how the Cialis works for you. documented in this encounter [facility] 09-03-2024 Discharge summary [facility] 09-03-2024 Radiology Diagnostic study note [facility] Imaging Services [address] [place], [place] [address] Chest PA and Lateral MR#: [id number] Acct: [id number] Name: MARIA LUZ SANTANA II Rep #: [id number] : 1950 M 73 From: Maxim Coulter MD PCP: Dr. Ana Casiano MD Status: PRE ER Study:Chest PA and Lateral Date of Exam: 09/03/24 Exam# [id number] Ordering Dr: Jaspal Petersen DO PROCEDURE: CHEST PA AND LATERAL 09/03/2024 REASON FOR EXAM: CHEST PAIN TECHNIQUE: CHEST PA AND LATERAL COMPARISON: 01/14/2024. FINDINGS: The heart is normal in size. The lungs are hyperexpanded with probable mild chronic interstitial changes. No acute osseous abnormalities. RAD/Chest PA and Lateral IMPRESSION: No acute cardiopulmonary abnormalities. Reading Location: [id number] CC: Dr. Latonia Petersen DO; Dr. Ana Casiano MD ~ Hardware Designer: Signed [facility] 08-19-2024 Evaluation note Diagnosis Onset Date Resolution Difficulty swallowing acute Aug 7:55am [facility] Work Phone: 1(802) 105-281307-11-2025 Evaluation note* Diagnosis Onset Date Resolution Status Admit Date Difficulty swallowing acute Bert y 2024 7:55am [place] coronary artery candido cium score greater than 400 acute September 292024 11:16am Shortness of breath acute Augus t 2024 11:16am Tachyarrhythmia acute September 292024 11:16am Essential hypertension chronic Au alec 2024 11:16am Hyperlipidemia chronic September 11:16am [facility] Work Phone: 1(952) 214-890002-28-2025 History of Present illness Narrative* Connie Ambrose APRN.INDUSTRIAL ILLUMINATING ENGINEER - 04/08/2024 10:30 AM EST GENERAL SURGERY-ENDOSCOPY FOLLOW UP VIRTUAL VISIT I have communicated my name and active licensure. The patient's identity and physical location wereverified at the time of this visit. Either the patient or their legal career services representative has been informed of the risks and benefits of -- and alternatives to -- treatment through a remote evaluation andconsents to proceed with the evaluation remotely. Maria Luz Santana II 1950 [id number] REFERRING PHYSICIAN: No referring provider defined for this encounter. Maria Luz Santana II is a patient I am following for positive cologuard. Dr. Gonzalez performed lower endoscopy on 04/01/24. The patient was found to have Impression: - One small (4-6 mm) polyp in the rectum, removed with a cold snare. Resected and retrieved. Clip was placed. Clip manager life: [employer]. - Non-bleeding internal hemorrhoids. - The examined [...] with the patient, and the patient has hadthe opportunity to ask questions and have questions [...] which included preparing to see the patient, [id number] patient care, completing clinical documentation, communicating with other HCPs (not separately reported), and communicating results to the patient/family/caregiver. [facility] NoteHNO ID: [id number] Author: CONNIE AMBROSE APRN.CNP Service: ? Author Type: Nurse Practitioner Type: Progress Notes Filed: 04/08/2024 10:32 Note Text: GENERAL SURGERY-ENDOSCOPY FOLLOW UP VIRTUAL VISIT I have communicated my name and active licensure. The patient's identity and physical location were verified at the time of this visit. Either the patient or their legal career services representative has been informed of the risks and benefits of -- and alternatives to -- treatment through a remote evaluation and consents to proceed with the evaluation remotely. Maria Luz Santana II 1950 [id number] REFERRING PHYSICIAN: No referring provider defined for this encounter. Maria Luz Santana II is a patient I am following for positive cologuard. Dr. Gonzalez performed lower endoscopy on 04/01/24. The patient was found to have Impression: - One small (4-6 mm) polyp in the rectum, removed with a cold snare. Resected and retrieved. Clip was placed. Clip manager life: [employer]. - Non-bleeding internal hemorrhoids. - The examined [...] as needed for worsening/no improvement. Connie Ambrose APRN.INDUSTRIAL ILLUMINATING ENGINEER Risk of morbidity, mortality and/or complications of treatment plan: low I spent a total of 10 minutes on the date of the service which included preparing to see the patient, [id number] patient care, completing clinical documentation, communicating with other HCPs (not separately reported), and communicating results to the patient/family/caregiver.[facility] 04-01-2024 Note* Discharge Instr - Nursing - Mariya Chavez RN - 04/01/2024 12:51 PM EST The patient received a copy of Colonoscopy discharge instructions that contain information for how to contact the physician who performed the procedure and when to seek medical care. [facility]02-21-2025 Miscellaneous Notes* Discharge Instr - Nursing - Mariya Chavez RN - 04/01/2024 12:51 PM EST The patient received a copy of Colonoscopy discharge instructions that contain information for how to contact the physician who performed the procedure and when to seek medical care. [facility] History and physical note * Dominic Gonzalez MD - 04/01/2024 12:15 PM EST HISTORY AND PHYSICAL Maria Luz Santana II : 1950 REFERRING PHYSICIAN: Ana Casiano (Jaspal) [address] [place] [address] [place] [id number] CHIEF COMPLAINT: Patient presents with: Consult: Positive [...] has undergone prior endoscopy. Last EGD at [facility] with [facility]. Impression: - Anthony's esophagus [...] Stroke Mother Coronary Artery Disease Father 60 [place] x 3 Blood Disease Father Heart Father Lymphoma Father Diabetes Maternal Grandmother SOCIAL HISTORY Social History Tobacco Use Smoking status: Never Smokeless tobacco: Never Vaping Use Vaping status: Never Used Substance Use Topics Alcohol use: Yes Comment: orilwzwgmh-8-3 times monthly Drug use: No REVIEW OF [...] denies vomiting, denies black or tarry stools, denieshemorrhoids, denies bleeding from rectum, denies diverticulitis, denies [...] are equally round, sclera are anicteric, mucous membranesare moist, oropharynx is clear. Neck has no [...] Will plan for lower endoscopy. We discussed therisks and benefits of the planned endoscopy. I [...] wishes. I have explained that with IV conscioussedation there is no anesthesia provider available and [...] his/her medical condition, to let the office knowif surgery should proceed. If there are changes [...] edited and updated as necessary. Connie Ambrose APRN.INDUSTRIAL ILLUMINATING ENGINEER UPDATED HISTORY AND PHYSICAL EXAMINATION SERVICE DATE: 04/01/2024 SERVICE TIME: 11:53 AM PHYSICAL EXAM MUST BE COMPLETED ON ADMISSION The History and Physical (completed in the past 30 days) has been reviewed and the patient has beenexamined. The contents accurately reflect the patient's condition with the following additions or revisions since the H&P was completed. Examination indicates no changes. This H&P can be found in the attached. SIGNATURE: Dominic Gonzalez III, MD PATIENT NAME: Maria Luz Santana II DATE: April 01, 2024 TIME: 11:53 AM [facility]02-21-[facility] History and physical note* Domiinc Gonzalez MD - 04/01/2024 12:15 PM EST HISTORY AND PHYSICAL Maria Luz Santana II : 1950 REFERRING PHYSICIAN: Ana Casiano ([facility]) [address] [address] CHIEF COMPLAINT: Patient presents with: Consult: Positive [...] has undergone prior endoscopy. Last EGD at [facility] with [facility]. Impression: - Anthony's esophagus [...] Stroke Mother Coronary Artery Disease Father 60 [place] x 3 Blood Disease Father Heart Father Lymphoma Father Diabetes Maternal Grandmother SOCIAL HISTORY Social History Tobacco Use Smoking status: Never Smokeless tobacco: Never Vaping Use Vaping status: Never Used Substance Use Topics Alcohol use: Yes Comment: [id number]-8-7 times monthly Drug use: No REVIEW OF [...] denies vomiting, denies black or tarry stools, denieshemorrhoids, denies bleeding from rectum, denies diverticulitis, denies [...] are equally round, sclera are anicteric, mucous membranesare moist, oropharynx is clear. Neck has no [...] Will plan for lower endoscopy. We discussed therisks and benefits of the planned endoscopy. I [...] wishes. I have explained that with IV conscioussedation there is no anesthesia provider available and [...] his/her medical condition, to let the office knowif surgery should proceed. If there are changes [...] edited and updated as necessary. Connie Ambrose APRN.INDUSTRIAL ILLUMINATING ENGINEER UPDATED HISTORY AND PHYSICAL EXAMINATION SERVICE DATE: 04/01/2024 SERVICE TIME: 11:53 AM PHYSICAL EXAM MUST BE COMPLETED ON ADMISSION The History and Physical (completed in the past 30 days) has been reviewed and the patient has beenexamined. The contents accurately reflect the patient's condition with the following additions or revisions since the H&P was completed. Examination indicates no changes. This H&P can be found in the attached. SIGNATURE: Dominic Gonzalez III, MD PATIENT NAME: Maria Luz Santana II DATE: April 01, 2024 TIME: 11:53 AM documented in [facility] Telephone encounter Note * Telephone Encounter - Marina Pleitez - 03/25/2024 2:10 PM EST 04-01-2024 Colonoscopy [facility] provider went over all prep information and gave patient direct number to contact Marina Pleitez [facility]02-14-20[facility] Miscellaneous Notes* Telephone Encounter - Marina Pleitez - 03/25/2024 2:10 PM EST 04-01-2024 [facility]oscopy [facility] provider went over all prep information and gave patient direct number to contact Marina Pleitez documented in this [facility] History of Present illness Narrative* Connie Ambrose APRN.INDUSTRIAL ILLUMINATING ENGINEER - 03/25/2024 1:00 PM EST HISTORY AND PHYSICAL Maria Luz Santana II : 1950 REFERRING PHYSICIAN: Ana Casiano ([facility]) [address] [place] [address] [facility] [address] CHIEF COMPLAINT: Patient presents with: Consult: Positive [...] has undergone prior endoscopy. Last EGD at [facility] with [facility]. Impression: - Anthony's esophagus [...] Stroke Mother Coronary Artery Disease Father 60 [place] x 3 Blood Disease Father Heart Father Lymphoma Father Diabetes Maternal Grandmother Social History Tobacco Use Smoking status: Never Smokeless tobacco: Never Vaping Use Vaping status: Never Used Substance Use Topics Alcohol use: Yes Comment: euyuuedmmu-7-4 times monthly Drug use: No REVIEW OF [...] denies vomiting, denies black or tarry stools, denieshemorrhoids, denies bleeding from rectum, denies diverticulitis, denies [...] are equally round, sclera are anicteric, mucous membranesare moist, oropharynx is clear. Neck has no [...] Will plan for lower endoscopy. We discussed therisks and benefits of the planned endoscopy. I [...] wishes. I have explained that with IV conscioussedation there is no anesthesia provider available and [...] his/her medical condition, to let the office knowif surgery should proceed. If there are changes [...] edited and updated as necessary. Connie Ambrose APRN.CHADD documented in this encounterM[facility]02-14-2025 NoteHNO ID: [id number] Author: CONNIE AMBROSE APRN.INDUSTRIAL ILLUMINATING ENGINEER Service: ? Author Type: Nurse Practitioner Type: Progress Notes Filed: 03/25/2024 13:18 Note Text: HISTORY AND PHYSICAL Maria Luz Santana II : 1950 REFERRING PHYSICIAN: Ana Casiano ([facility]) [address] [place] [address] [facility] [address] CHIEF COMPLAINT: Patient presents with: Consult: Positive [...] has undergone prior endoscopy. Last EGD at [facility] with [facility]. Impression: - Anthony's esophagus [...] Stroke Mother Coronary Artery Disease Father 60 [place] x 3 Blood Disease Father Heart Father Lymphoma Father Diabetes Maternal Grandmother Social History Tobacco Use Smoking status: Never Smokeless tobacco: Never Vaping Use Vaping status: Never Used Substance Use Topics Alcohol use: Yes Comment: lxzcxngtwt-4-3 times monthly Drug use: No REVIEW OF SYMPTOMS: REVIEW OF SYSTEMS: General: The patient denies fatigue, denies weight loss, denies weight gain, denies feeling hot, and feelings of cold. Eyes: The patient denies glaucoma, denies eye injury/surgery, denies glasses or contacts. Ear/Nose/Throat: The patient + allergies, + (more content not included)... [facility]10-17-2024 NoteHNO ID: [id number] Author: RUTH SULLIVAN MD Service: ? Author [...] Stroke Mother Coronary Artery Disease Father 60 [place] x 3 Blood Disease Father Heart Father SOCIAL HISTORY: Social History Tobacco Use Smoking status: Never Smokeless tobacco: Never Vaping Use Vaping status: Never Used Substance Use Topics Alcohol use: Yes Comment: ipfsjfiuwr-8-5 times monthly Drug use: No MEDICATIONS: Current [...] reactive to light. Cardiov (more content not included)...[facility]10-17-2024 History of Present illness Narrative* Ruth Sullivan MD - 11/26/2023 11:41 AM EDT SURGICAL SERVICES HISTORY AND PHYSICAL EXAMINATION SERVICE [...] of most of his symptoms. He believes thatmost of his vocal hoarseness and chest discomfort [...] Date 48 HOUR PH STUDY 12/22/2022 Dr. Glil COLONOSCOPY 01/18/2015 EGD 01/18/2015 EGD WITH BIOPSY(S) [...] Stroke Mother Coronary Artery Disease Father 60 [place] x 3 Blood Disease Father Heart Father SOCIAL HISTORY: Social History Tobacco Use Smoking status: Never Smokeless tobacco: Never Vaping Use Vaping status: Never Used Substance Use Topics Alcohol use: Yes Comment: bytktmbonr-5-9 times monthly Drug use: No MEDICATIONS: Current [...] diaphragmatic hernia - ICD9: V45.89, ICD10: Z98.890, Z87.19(primary diagnosis) - We reviewed his recent testing and imaging together - no abnormality noted on UGI and perhaps a small sliding hernia on EGD, but his symptoms of GERD have completely resolved off of all anti-refluxmedications. He does believe that most of his symptoms of vocal hoarseness and chest discomfort aresecondary to sinus drainage and he is working [...] 26, 2023 TIME: 11:42 AM PAGER/CONTACT #: [id number] documented in this encounterMidd[facility]10-07-2024 NoteHNO ID: [id number] Author: ?, ?, ? Service: ? Author Type: ? Type: Progress Notes Filed: 11/16/2023 09:10 Note Text: Appointment canceled. [facility]08-20-2024 Telephone encounter Note* Telephone Encounter - Yamiletjoanneaneta BharatiJOAO dorman - 09/29/2023 4:44 PM EDT Patient called in confused stating that he believed he was supposed to have a test done testing hisstomach acid. This nurse reached out to Holly PARISI and she stated that that is the EGD Stafford test andnot just the EGD. Patient made aware, but still wanted to check with provider about this. Bharati Oneal LPN [facility] Work Phone: [phone] Miscellaneous Notes* Telephone Encounter - Bharati Oneal LPN - 09/29/2023 4:44 PM EDT Patient called in confused stating that he believed he was supposed to have a test done testing hisstomach acid. This nurse reached out to Holly PARISI and she stated that that is the EGD Stafford test andnot just the EGD. Patient made aware, but still wanted to check with provider about this. Bharati Oneal LPN documented in this encounterMiddletown Hospital08-15-2024 History and physical note * Ciro Steele PA - 09/24/2023 1:30 PM EDTSummary: PAT HISTORY AND PHYSICAL EXAMINATION SERVICE DATE: [...] Stroke Mother Coronary Artery Disease Father 60 [place] x 3 Blood Disease Father Heart Father SOCIAL HISTORY: Social History Tobacco Use Smoking status: Never Smokeless tobacco: Never Vaping Use Vaping Use: Never used Substance Use Topics Alcohol use: Yes Comment: bofizcagpt-1-2 times monthly Drug use: No Prior to [...] within date range. No results found for: HBA1C Assessment/Plan Patient has the following medical conditions; [...] which included preparing to see the patient, [id number]-jk-[id number] patient care, completing clinical documentation, obtaining and/or reviewing separately obtained history, performing a medically appropriate examination, counseling and educating the pat ient/family/caregiver, and ordering medications, tests, or procedures. Instructions Given to Patient: Patient given verbal preop instructions and voices comprehension and compliance. SIGNATURE: DEEP Das PATIENT NAME: Maria Luz Santana II DATE: September 24, 2023 TIME: 12:22 PM PAGER/CONTACT #: ' [facility]08-15-[facility] History and physical note* Ciro Steele PA - 09/24/2023 1:30 PM EDTSummary: PAT HISTORY AND PHYSICAL EXAMINATION SERVICE DATE: [...] Stroke Mother Coronary Artery Disease Father 60 [place] x 3 Blood Disease Father Heart Father SOCIAL HISTORY: Social History Tobacco Use Smoking status: Never Smokeless tobacco: Never Vaping Use Vaping Use: Never used Substance Use Topics Alcohol use: Yes Comment: uarwiqbkqn-3-8 times monthly Drug use: No Prior to [...] within date range. No results found for: HBA1C Assessment/Plan Patient has the following medical conditions; [...] which included preparing to see the patient, [id number] patient care, completing clinical documentation, obtaining and/or reviewing separately obtained history, performing a medically appropriate examination, counseling and educating the pat ient/family/caregiver, and ordering medications, tests, or procedures. Instructions Given to Patient: Patient given verbal preop instructions and voices comprehension and compliance. SIGNATURE: DEEP Das PATIENT NAME: Maria Luz Santana II DATE: September 24, 2023 TIME: 12:22 PM PAGER/CONTACT #: ' documented in this encounterMiddletown Hospital07-29-2024 Telephone encounter Note * Telephone Encounter - Bharati Oneal LPN - 09/07/2023 10:22 AM EDT EGD scheduled for 09/24/2023 at 3:00pm. Prep/instructions given to patient at checkout. Snapboard updated. Bharati Oneal LPN [facility] Work Phone: 1(518) 215-427207-29-2024 Miscellaneous Notes* Telephone Encounter - Bharati Oneal LPN - 09/07/2023 10:22 AM EDT EGD scheduled for 09/24/2023 at 3:00pm. Prep/instructions given to patient at checkout. [employer]board updated. Bharati Oneal LPN documented in this encounterMiddletown Hospital07-26-2024 Telephone encounter Note * Telephone Encounter - Bharati Oneal LPN - 09/04/2023 12:17 PM EDT Called patient back and left voicemail requesting return call. Bharati Oneal LPN [facility] Work Phone: [phone] 174-956407-26-2024 Miscellaneous Notes* Telephone Encounter - Bharati Oneal LPN - 09/04/2023 12:17 PM EDT Called patient back and left voicemail requesting return call. Bharati Oneal LPN documented in this encounterMiddletown Hospital07-23-2024 Telephone encounter Note * Telephone Encounter - Zari Walls - 09/01/2023 12:59 PM EDT LVM for patient to scheduled follow up appointment for EGD - requested patient call back to schedule appointment. [employer] message sent to patient. [facility] Miscellaneous Notes* Telephone Encounter - Zari Walls - 09/01/2023 12:59 PM EDT LVM for patient to scheduled follow up appointment for EGD - requested patient call back to schedule appointment. [employer] message sent to patient. documented in this encounterMiddletown Hospital07-22-2024 Telephone encounter Note * Telephone Encounter - Zari Walls - 08/31/2023 8:12 AM EDT Patient called to schedule EGD and follow up. Please call to schedule patient EGD and forward to schedule follow up. [facility]07-22-[facility] Miscellaneous Notes* Telephone Encounter - Zari Walls - 08/31/2023 8:12 AM EDT Patient called to schedule EGD and follow up. Please call to schedule patient EGD and forward to schedule follow up. documented in this encounterMiddletown Hospital07-22-2024 Telephone encounter Note * Telephone Encounter - Zari Walls - 08/31/2023 8:10 AM EDT VM received regarding patient wanting to scheduling an EGD and a follow up appointment - LVM for patient to call back to schedule an appointment. [employer] message sent to patient. [facility]07-22-[facility]24 Miscellaneous Notes* Telephone Encounter - Zari Walls - 08/31/2023 8:10 AM EDT VM received regarding patient wanting to scheduling an EGD and a follow up appointment - LVM for patient to call back to schedule an appointment. [employer] message sent to patient. documented in this encounterMiddletown Hospital07-19-2024 Telephone encounter Note * Telephone Encounter - Bharati Oneal LPN - 08/28/2023 4:28 PM EDT Attempted to call patient to schedule for EGD. Left voicemail to return. Bharati Oneal LPN [facility] Work Phone: [phone] Miscellaneous Notes* Telephone Encounter - Bharati Oneal LPN - 08/28/2023 4:28 PM EDT Attempted to call patient to schedule for EGD. Left voicemail to return. Bharati Oneal LPN documented in this encounterMiddletown Hospital07-19-2024 NoteHNO ID: [id number] Author: RUTH SULLIVAN MD Service: ? Author [...] Stroke Mother Coronary Artery Disease Father 60 [place] x 3 Blood Disease Father Heart Father SOCIAL HISTORY: Social History Tobacco Use Smoking status: Never Smokeless tobacco: Never Vaping Use Vaping Use: Never used Substance Use Topics Alcohol use: Yes Comment: mpolfozzbl-6-2 times monthly Drug use: No MEDICATIONS: Current [...] depression, hallucinations, memory loss, (more content not included)...[facility]07-19-2024 History of Present illness Narrative* Ruth Sullivan MD - 08/28/2023 3:43 PM EDT SURGICAL SERVICES HISTORY AND PHYSICAL EXAMINATION SERVICE [...] thrush is still present. He describes the s ensation of middle chest pain when he eats [...] Stroke Mother Coronary Artery Disease Father 60 [place] x 3 Blood Disease Father Heart Father SOCIAL HISTORY: Social History Tobacco Use Smoking status: Never Smokeless tobacco: Never Vaping Use Vaping Use: Never used Substance Use Topics Alcohol use: Yes Comment: tyggawitvd-5-7 times monthly Drug use: No MEDICATIONS: Current [...] have insomnia. OBJECTIVE PHYSICAL EXAM: Ht 5' 10 (1.78m) Wt 185 lb (83.9kg) BMI 26.54 [...] diaphragmatic hernia - ICD9: V45.89, ICD10: Z98.890, Z87.19(primary diagnosis) - Has vocal hoarseness and chest [...] by ongoing precautions to prevent spread and transmissionof COVID19 during the current pandemic. The visit was in lieu of an in person visit due to these restrictions and was done virtually as approved currently by the [facility] Government which has transiently waved [facility] requirements. The patient agreed to this virtual [...] 28, 2023 TIME: 3:43 PM PAGER/CONTACT #: [phone] documented in this encounterMiddletown Hospital06-25-2024 Telephone encounter Note * Telephone Encounter - Edith Roque RN - 08/04/2023 1:05 PM EDT Patient called today to update us. Patient is s/p PEHR w/Toupet on 05/12/23. Patient complains of acid reflux, describing it as in the center of my chest. If I take a deep breath is it painful. It is pressure above my breast bone, feeling like stabbing pain when I inhale deeply. Before surgery I felt the acid in the back of my throat and up high in my chest. Patient stated he has been taking his Famotidine off and on and denies having any stabbing chest pain or pain on inhaling while he is onthe Famotidine. I really want to come off the Famotidine because I mentally foggy on it. Patient followed my last recommendation of removing milk, Fairlife milk and yogurt out of his diet.He has not noticed any improvement. He does not relate the stabbing chest pain to eating in generalor eating any foods or liquids in particular, [...] is his diltiazem. I recommended that he trytaking it with a teaspoon of applesauce or yogurt. Patient agreed to try it. Patient continues to sleep with his head of bed elevated at 45 degrees. Bernabe stated he woke up this morning with acid reflux as he described above. Patient does have environmental allergies and takes Sima every night. He also does a nasal rinsetwice a day. He denies cough, but does have intermittent PND (post nasal drip). Patient does not sound nasally congested during our conversation. I told the patient that I don't know if this is acid reflux and since he describes it as stabbing chest pain I recommended that he make an appointment with his PCP (whom he has not seen since priorto surgery) to make sure we are not overlooking something, possibly musculoskeletal. Patient agreedwith the plan. Patient has a video follow up appointment with Dr. Sullivan on 09/18/23. Edith Roque RN [facility]06-25-2024 Miscellaneous Notes* Telephone Encounter - Edith Roque RN - 08/04/2023 1:05 PM EDT Patient called today to update us. Patient is s/p PEHR w/Toupet on 05/12/23. Patient complains of acid reflux, describing it as in the center of my chest. If I take a deep breath is it painful. It is pressure above my breast bone, feeling like stabbing pain when I inhale deeply. Before surgery I felt the acid in the back of my throat and up high in my chest. Patient stated he has been taking his Famotidine off and on and denies having any stabbing chest pain or pain on inhaling while he is onthe Famotidine. I really want to come off the Famotidine because I mentally foggy on it. Patient followed my last recommendation of removing milk, Fairlife milk and yogurt out of his diet.He has not noticed any improvement. He does not relate the stabbing chest pain to eating in generalor eating any foods or liquids in particular, [...] is his diltiazem. I recommended that he trytaking it with a teaspoon of applesauce or yogurt. Patient agreed to try it. Patient continues to sleep with his head of bed elevated at 45 degrees. Bernabe stated he woke up this morning with acid reflux as he described above. Patient does have environmental allergies and takes Sima every night. He also does a nasal rinsetwice a day. He denies cough, but does have intermittent PND (post nasal drip). Patient does not sound nasally congested during our conversation. I told the patient that I don't know if this is acid reflux and since he describes it as stabbing chest pain I recommended that he make an appointment with his PCP (whom he has not seen since priorto surgery) to make sure we are not overlooking something, possibly musculoskeletal. Patient agreedwith the plan. Patient has a video follow up appointment with Dr. Sullivan on 09/18/23. Edith oRque RN documented in this encounterMiddletown Hospital05-24-2024 Telephone encounter Note * Telephone Encounter - Edith Roque RN - 07/03/2023 11:45 AM EDT I called Bernabe this morning an told him I left him a message at 4:30 on 06/30, again yesterday at 12:30 & 4:30. Bernabe said he thought it was odd he didn't hear from me because you always call me back. That's why I called Dr. Sullivan's office. 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 They had to reset my phone to get it to work. I asked Bernabe for more detail about the message he left on Thursday stating he has heartburn again. Bernabe said I've had twinges of heartburn here and there and then Thursday it really started to hurt around 3 pm. Before surgery the burning was in my throat and I would call it irritating but this burning was in the middle of my chest and it hurts. I went back on my famotidine twice a day and it much better. Patient denies the heartburn being related to eating or drinking. He also denies nate N/V, constipation or diarrhea. Patient's 24 hour diet recall: ~breakfast-oatmeal, prunes & 1 cup Fairlife milk ~snack-kamaljit crackers and 1 cup Fairlife milk ~Lunch-canned chicken w/veggie hand, green beans & protein shake ~snack-kamaljit crackers & 1 cup Fairlife milk ~Dinner-cod, Nepalese yogurt & green beans Bernabe said he [...] with any other questions. Edith Roque RN [facility]05-24-2024 Miscellaneous Notes* Telephone Encounter - Edith Roque RN - 07/03/2023 11:45 AM EDT I called Bernabe this morning an told him I left him a message at 4:30 on 06/30, again yesterday at 12:30 & 4:30. Bernabe said he thought it was odd he didn't hear from me because you always call me back. That's why I called Dr. Sullivan's office. 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 They had to reset my phone to get it to work. I asked Bernabe for more detail about the message he left on Thursday stating he has heartburn again. Bernabe said I've had twinges of heartburn here and there and then Thursday it really started to hurt around 3 pm. Before surgery the burning was in my throat and I would call it irritating but this burning was in the middle of my chest and it hurts. I went back on my famotidine twice a day and it much better. Patient denies the heartburn being related to eating or drinking. He also denies nate N/V, constipation or diarrhea. Patient's 24 hour diet recall: ~breakfast-oatmeal, prunes & 1 cup Fairlife milk ~snack-kamaljit crackers and 1 cup Fairlife milk ~Lunch-canned chicken w/veggie hand, green beans & protein shake ~snack-kamaljit crackers & 1 cup Fairlife milk ~Dinner-cod, Nepalese yogurt & green beans Bernabe said he [...] with any other questions. Edith Roque RN * Telephone Encounter - Luis Underwood RN - 07/03/2023 8:04 AM EDT Pt called to speak with Edith Roque [...] questions. Luis Underwood RN documented in this encounterMiddletown Hospital05-24-2024 Telephone encounter Note * Telephone Encounter - Luis Underwood RN - 07/03/2023 8:04 AM EDT Pt called to speak with Edith Roque [...] otherwise, no further questions. Luis Underwood RN [facility]05-20-2024 Telephone encounter Note* Telephone Encounter - Edith Roque RN - 06/29/2023 2:20 PM EDT Patient called because he continues to have issues with constipation. Patient has been taking colace three times a day, drinking at least 70 oz/fluid/day, taking Miralax daily for the last 3 days. Hehas a hard stool yesterday after using an enema, but did not feel like he completed his bowel movement. My belly got soft after the bowel movement yesterday but it is hard and distended again today. Patient had daily bowel movements before surgery. Patient's diet in the last 24 hours: Breakfast: oatmeal with cut up prunes Lunch #`:protein shake made w/Fairlife milk, Nepalese yogurt, greens and protein powder (split into 2 meals). Lunch#2 : canned chicken, apple, pear Dinner: canned tuna I told Bernabe he is doing everything correctly. His last colonoscopy was 2014 and was normal. I told him I would share this info with Dr. Sullivan and ask her for recommendations. Edith Roque RN [facility]05-20-2024 Miscellaneous Notes* Telephone Encounter - Edith Roque RN - 06/29/2023 2:20 PM EDT Patient called because he continues to have issues with constipation. Patient has been taking colace three times a day, drinking at least 70 oz/fluid/day, taking Miralax daily for the last 3 days. Hehas a hard stool yesterday after using an enema, but did not feel like he completed his bowel movement. My belly got soft after the bowel movement yesterday but it is hard and distended again today. Patient had daily bowel movements before surgery. Patient's diet in the last 24 hours: Breakfast: oatmeal with cut up prunes Lunch #`:protein shake made w/Fairlife milk, Nepalese yogurt, greens and protein powder (split into 2 meals). Lunch#2 : canned chicken, apple, pear Dinner: canned tuna I told Bernabe he is doing everything correctly. His last colonoscopy was 2014 and was normal. I told him I would share this info with Dr. Sullivan and ask her for recommendations. Edith Roque RN documented in this encounterMiddletown Hospital05-13-2024 Telephone encounter Note * Telephone Encounter - Edith Roque RN - 06/22/2023 9:50 AM EDT Patient called with complaints of constipation. He [...] stool softener, like Colace, and eating a fewprunes daily. I also recommended that he take a dose of Miralax today to get things moving. Patientagreed with the plan. Patient still has thrush. His PCP prescribed Diflucan, but patient had a reaction to it so he wasput on Nystatin, 100,000 units QID swish and [...] a week; he agreed. Edith Roque RN [facility]05-13-2024 Miscellaneous Notes* Telephone Encounter - Edith Roque RN - 06/22/2023 9:50 AM EDT Patient called with complaints of constipation. He [...] stool softener, like Colace, and eating a fewprunes daily. I also recommended that he take a dose of Miralax today to get things moving. Patientagreed with the plan. Patient still has thrush. His PCP prescribed Diflucan, but patient had a reaction to it so he wasput on Nystatin, 100,000 units QID swish and [...] agreed. Edith Roque RN documented in this encounterMiddletown Hospital04-24-2024 NoteHNO ID: [id number] Author: EDITH ROQUE RN Service: ? Author Type: Nurse Clinician Type: Progress Notes Filed: 06/03/2023 09:51 Note Text: Office visit after lap Toupet procedure on 05/12/23: Swallowing: denies any difficulty swallowing fluids, foods or pills. 24 hour diet recall: Breakfast: Maypo and Fairlife milk Lunch: Protein shake with Nepalese yogurt Dinner: 4 oz. Cod, green beans [...] Follow up appt confirmation: phone call from metal numerical control programmer in 6 weeks, follow up appointment with [...] available if she has any questions. Edith Roque, [facility]04-24-2024 NoteHNO ID: [id number] Author: RUTH SULLIVAN MD Service: ? Author [...] Stroke Mother Coronary Artery Disease Father 60 [place] x 3 Blood Disease Father Heart Father SOCIAL HISTORY: Social History Tobacco Use Smoking status: Never Smokeless tobacco: Never Vaping Use Vaping Use: Never used Substance Use Topics Alcohol use: Yes Comment: qwwggxbdmz-6-0 times monthly Drug use: No MEDICATIONS: Current [...] EXAM: BP 112/67 Pulse 51 Ht 5' 10 (1.78m) Wt 194 lb (88.0kg) BMI 27.84 kg/(m2). Physical Exam Vitals reviewed. Constitutional: Appearance: Normal appearance. HENT: Head: Normocephalic a (more content not included)...[facility] 05-28-2023 Miscellaneous Notes* Telephone Encounter - Edith Roque RN - 05/28/2023 10:16 AM EDT Patient called and had a couple of questions as he enters his 3rd week post op. Patient stated thatbefore surgery he had a lot of difficulty swallowing foods. He is starting to advance to soft foodslike fish and canned fruit but is worried it will get stuck. I recommended that Bernabe start by pureeing these foods to make sure they go down. As he feels more comfortable and confident, he can start ch [place] his foods thoroughly and swallowing. Patient said that would make him more comfortable and agreed with the plan. Patient is scheduled to have his teeth cleaned on 06/03/23 and asked if that was OK. He will be 22 days post op and I agreed that should be OK. Edith Roque RN documented in this encounterMiddletown Hospital04-16-2024 Miscellaneous Notes* Telephone Encounter - Luis Underwood RN - 05/26/2023 4:12 PM EDT Called Bernabe to let him know that per Dr. Sullivan, this is most likely a stitch that he is describing,and that his body should reabsorb it as he heals. Advised him if that there is any new pain, the area gets bigger or looks infected, to please let us know and to please send a picture. Bernabe agrees nd has no further questions or concerns at this time. Luis Underwood RN documented in this encounterMiddletown Hospital04-08-2024 Miscellaneous Notes* Telephone Encounter - Edith Roque RN - 05/18/2023 10:05 AM EDT Patient called and left a message this morning asking for a return call. When I returned his call Bernabe informed me that he had his DILT-XR 24 hour capsule changed to tabletsthat he was crushing and taking with water. He was having a hard time getting all the crushed tablet out of the glass so his pharmacist recommended that he quarter the tablets and swallow them. Bernabe has noticed his mouth and throat is sore and he has noticed a difference in his voice. Bernabe also reports a acidy taste in my mouth. I asked Bernabe to go to a mirror, stick his tongue out and report what he sees. Yeah, it looks weird, there is a white coating all over my tongue. I told him I suspect he may have thrush, from his symptoms and I will share that info with Dr. Sullivan. If she sends in a pr escription to his [facility] pharmacy I will call him back. Patient stated he is drinking without difficulty, he has moved his bowels and is back to being regular. Patient states his abdominal distension is gone and he has been doing his walking. I told himto keep up the good work. Bernabe said he is grateful that we offer follow up phone calls once the patient is out of the hospital. It is really nice to be able to reach out to someone to make sure you are doing everything right. I told him it was my pleasure to help him recover. Edith Roque RN documented in this encounterMiddletown Hospital04-05-2024 Miscellaneous Notes* Telephone Encounter - Edith Roque RN - 05/15/2023 12:18 PM EDT Patient called concerned that he needs to thin out his protein shakes ([employer] brand) and sip smallmouthfuls to get it down. I assured him this is normal during the initial phase of his recovery. Patient reports that water goes down without difficulty, but if he drinks a big mouthful or too quickly if feels like it backs up. I get a little nauseated, but not to the point I need to throw up. I asked patient if he has moved [...] plan. Edith Roque RN documented in this encounterMiddletown Hospital04-04-2024 Miscellaneous Notes* Telephone Encounter - Mary Beth Demarco MA - 05/14/2023 1:52 PM EDT The Zofran pills that he was given are fine to swallow. They should not cause an issue with his fundoplication Called and spoke with and gave above message. She understood. Mary Beth Demarco MA * Telephone Encounter - Mary Beth Demarco MA - 05/14/2023 12:24 PM EDT The Su called in stating they were under the impression the Zofran was going to be quick dissolve but after they got it home they realized it was not. The is concerned that her may chockor have difficulty with the current Zofran and would prefer the quick dissolve Zofran called in if you could do that? documented in this encounterMidd[facility]own Hospital04-03-2024 Miscellaneous Notes* Telephone Encounter - Edith Roque RN - 05/13/2023 5:26 PM EDT I called patient and spoke with both him and his , Ira, after hospital discharge home after lapToupet procedure on 05/11/22: Swallowing: Patient states the [...] 48 hours if something gets stuck to allowtime for any swelling at the EG junction to resolve. Patient acknowledged understanding. I encouraged patient to call with any questions or concerns before his follow up appointment. Patient thanked me for the call. Edtih Roque RN documented in this encounterMiddletown Hospital04-03-2024 NoteHNO ID: [id number] Author: MAG NARAYAN RN Service: Care Management [...] the process utilized to ensure compliance with [facility] policy regarding Inpatient Admission and Observation Services. [...] treating physician's order as documented evidence of concurrence.[facility]04-03-2024 NoteHNO ID: [id number] Author: RUTH SULLIVAN MD Service: General Surgery [...] questions or concerns Mon-Fri 6a-5p please page [phone]. After 5pm and on Weekends and Holidays, please page [phone]. SUBJECTIVE: Patient seen and examined. He is [...] (Oral) Resp 16 Ht 177.8 cm (5' 10) Wt 93.7 kg (206 lb 9.1 oz) SpO2 95% BMI 29.64 kg/m? O2 Therapy: Room Air IANDO: Date 05/12/23 07 - 05/13/23 0659 05/13/23 0700 - 05/14/23 0659 Shift [id number] 6770-8012 9224-0111 24 Hour Total 6845-9566 1420-0900 8919-7673 24 Hour Total INTAKE PO 50 50 [...] Consult not required Rehab/Therapy (more content not included)...[facility] 05-12-2023 NoteHNO ID: [id number] Author: MARIO MCGREGOR DO Service: General Surgery [...] lb 9.1 oz) Height: 177.8 cm (5' 10) Physical Exam: General: Lungs: Regular respiratory effort, good diaphragmatic excursion, on room air Chest: Regular rate and rhythm, BP as above Abdomen: Soft, Appropriately tender to palpation, no rebound or guarding, incision clean/dry/intact Assessment/Plan: - Continue current management - Pain and nausea control as ordered - Mobilize, IS - Tolerating Diet: DIET LIQUID DIET LIQUID Mario Mcgregor, General Surgery PGY-1 May 1147:01 [facility]04-02-2024 NoteHNO ID: [id number] Author: CHIARA TURNER APRN.CNP Service: ? Author Type: Nurse Cost Accounting Clerk Type: Anesthesia Procedure Notes Filed: 05/12/2023 08:02 [...] May 12, 2023 TIME: 8:01 AM CSN: [id number] NoteHNO ID: [id number] Author: CHIARA TURNER APRN.CNP Service: ? Author Type: Nurse Cost Accounting Clerk Type: Anesthesia Procedure Notes Filed: 05/12/2023 08:01 Note Text: ANESTHESIOLOGY PROCEDURE NOTE Airway General Information Procedure Start Time/Medication Administration: 05/12/2023 7:47 AM Patient location during procedure: OR Timeout Performed Pre-procedure: timeout performed Consent Obtained: Yes Patient identity confirmed: arm band Staffing Anesthesiologist: Alexander Thompson MD INSTALLER INSPECTOR FINAL: Chiara Turner APRN.CNP Indications and Patient Condition Indications for airway management: anesthesia Preoxygenated: yes anesthesia circuit Patient position: sniffing Method: asleep Cricoid Pressure: Yes Manual In-Line Stabilization: No Final Airway Details Final airway type: endotracheal airway Final Endotracheal Airway: ETT Cuffed: yes Successful intubation technique: video laryngoscopy Devices used: DSO Interactive Endotracheal tube insertion site: oral Blade: Carri [...] May 12, 2023 TIME: 8:00 AM CSN: [id number] Miscellaneous Notes* Telephone Encounter - Roseline Mendoza - 05/11/2023 1:29 PM EDT Patient is aware of 6;00 arrival time documented in this encounterMiddletown Hospital03-26-2024 History and physical note * Lisa Alfaro APRN.CNP - 05/05/2023 3:00 PM EDT HISTORY AND PHYSICAL EXAMINATION SERVICE DATE: 05/05/2023 [...] which included preparing to see the patient, ideq-sh-mfsz patient care, completing clinical documentation, obtaining and/or reviewing separately obtained history, performing a medically appropriate examination, and counseling and educating the patient/family/caregiver. Assessment Patient has the following medical conditions which may affect familia-operative course: Pre-op exam see note for medical conditions which may affect familia-operative course that were addressed at today's visit. Paraesophageal hernia Surgery scheduled 05/12/2023 Tachyarrhythmia Diltiazem-instructed to take DOS Wellhead Pumper Dr. Klein-optimization in [facility] 04/02/2023 Migraine with aura Managed [...] initiated at this time: cardiology (scanned in [facility] 04/02/2023). Planned Anesthetic: general The Following Tests/Procedures Have Been Initiated: Orders Placed This Encounter lisinopril (ZESTRIL) 20 mg tablet Sig: Take 1 tablet by mouth every 12 hours. REASON FOR VISIT: aMria Luz Santana is a 72 year old [...] the surgeon the patient agrees to surgical i ntervention. REVIEW OF SYSTEMS: General: Negative for: unintentional [...] Stroke Mother Coronary Artery Disease Father 60 [place] x 3 Blood Disease Father Heart Father Social History Tobacco Use Smoking status: Never Smokeless tobacco: Never Vaping Use Vaping Use: Never used Substance Use Topics Alcohol use: Yes Comment: [id number]-4-0 times monthly Drug use: No Prior to [...] 68 Temp 98.2 Resp 16 Ht 5' 10 (1.78m) Wt 202 lb (91.6kg) SpO2 97% [...] within date range. No results found for: HBA1C No results found for this or any previous visit (from the past 8760 hour(s)). No results found for this or any previous visit (from the past 41871 hour(s)). Instructions Given to Patient: Instructions located in the after visit summary. Patient given verbal and written preop instructions and voices comprehension and compliance. SIGNATURE: Lisa Alfaro APRN.CNP PATIENT NAME: Maria Luz Santana DATE: May 05, 2023 TIME: 8:56 AM PAGER/CONTACT #: documented in this encounterMiddletown Hospital03-26-2024 Instructions* Patient Instructions* Lisa Alfaro APRN.CNP - 05/05/2023 2:52 PM EDT PATIENT PREOPERATIVE INSTRUCTIONS Ruth Sullivan MD has scheduled you for your procedure at this surgery center: [facility]: [phone], [address] [address] Please read below carefully for your personalized [...] - Stop Vitamin E, fish oil, Ginko, Misty's Wort, flax seed oil, multivitamins, CBD oil, [...] for the first 24 hours post surgery oryour surgery may be cancelled. Please speak with [...] but if you wish to bring undergarments forafter surgery you may. -If you do not have a copy of advance directives on file with us, please bring a copy with you on the day of surgery. If you already have an Advance Directive, please fax a copy to [phone] or email to for it to be added to your chart. If you do not have an Advance Directive, you can find the appropriate form and more information at [email or web address]. We recommend that youcomplete the Advance Directive form found on the website and bring it with you the day of your surgery. It can be witnessed and scanned into your chart that day. Please note-you should have a 72-hour period between getting your vaccine and date of surgery - If you have a stimulator, implant or pump that requires a remote please bring the remote with youday of surgery Lisa Alfaro APRN.INDUSTRIAL ILLUMINATING ENGINEER documented in this encounterMiddletown Hospital03-22-2024 History of Present illness Narrative* Danae Umanzor PTA - 05/01/2023 9:14 AM EDT Program_ID:[id number] Access Code: [email or web address] URL: [email or web address] Date: 05-01-2023 Prepared By: Pantera Gallegos Program [...] weekly - 2 sets - 10 reps * Pantera Gallegos, PT - 05/01/2023 8:44 AM EDT Episode Visit Count: 2 Therapist That Will [...] states that his pain is gone, has aslight twinge in the L scapula intermittently. Pt [...] Left, Thoracic Spine Post Treatment Pain Description: (My upper back feels much looser) OBJECTIVE MEASURES WITH LEVEL OF FUNCTION: Tight [...] 921 CHRISTA White PT documented in this encounterMiddletown Hospital03-21-2024 Miscellaneous Notes* Telephone Encounter - Alpa Pearson APRN.CNP - 04/30/2023 11:47 AM EDT Summary: SOC updates LVM on 04/28/23 for patient to call clinic with SOC updates. This is a second attempt. No call back.Will remove off of call schedule. Alpa Pearson APRN.CNP documented in this encounterMiddletown Hospital03-11-2024 History of Present illness Narrative* Pantera Gallegos PT - 04/20/2023 10:19 PM EDT Episode Visit Count: 1 Therapist That Will [...] Planned: 6 Planned Treatment Interventions: Therapeutic exercise (16271), Body Mechanics Training, Patient/Family/Caregiver Education, Self-senior care management (31335), Manual therapy (34774), Therapeutic activities (83805), Neuromuscular re- education (55103) PLAN FOR NEXT VISIT: Review, correct and [...] of L scapula. 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 He reports that prolonged sitting and driving aggravate his symptoms. He reports diagnosis of osteoporosis approximately 2 years ago. 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 [employer] Home Environment Patient Lives With: Spouse [...] Care, Home exercise program, Posture, Body Mechanics, Lifestylechanges Education Provided: Yes, see treatment interventions for [...] Stop Time : 917 Pantera Gallegos PT * Pantera Gallegos PT - 04/20/2023 9:18 AM EDT Program_ID:[id number] Access Code: [email or web address] URL: [email or web address] Date: 04-20-2023 Prepared By: Pantera Gallegos Program [...] sets - 3 reps documented in this encounterMiddletown Hospital03-04-2024 Miscellaneous Notes* Telephone Encounter - Alpa Pearson APRN.CNP - 04/13/2023 12:03 PM EST Summary: SOC Updates LMV for patient to call clinic with SOC updates. Alpa Pearson APRN.INDUSTRIAL ILLUMINATING ENGINEER documented in this encounterMiddletown Hospital02-22-2024 Miscellaneous Notes* Telephone Encounter - Luis Underwood RN - 04/02/2023 10:15 AM EST Cardiology clearance letter sent/faxed to Dr. Dwayne Klein MD. Luis Underwood RN documented in this encounterMiddletown Hospital02-22-2024 NoteHNO ID: [id number] Author: EDITH ROQUE RN Service: ? Author [...] has questions prior to surgery. Edith Roque [facility]02-22-2024 History of Present illness Narrative* Edith Roque RN - 04/02/2023 9:54 AM EST Patient given folder with written information about [...] questions prior to surgery. Edith Roque RN * Ruth Sullivan MD - 04/02/2023 8:43 AM EST SURGICAL SERVICES HISTORY AND PHYSICAL EXAMINATION SERVICE DATE: 04/02/2023 SERVICE TIME: 8:43 AM PRIMARY CARE PHYSICIAN: Ana Casiano MD SUBJECTIVE CHIEF COMPLAINT: reflux HISTORY OF PRESENT ILLNESS: Mr. Santana is a 72 year old male with a PMH of gallstones, GERD, hiatalhernia, Anthony's esophagus, HTN (HCTZ, lisinopril), SVT (diltiazem), inguinal hernias, STEPHANY (BiPAP)who presents for follow up after testing. The patient reports he has been coughing a lot recently due to chronic sinus drainage. 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 He [...] for back pain) done last week at [facility] patient will get this uploaded - [...] has been on recently. Currently he is t aking 40 mg Pepcid BID and he is [...] related to chest tightness and this happens severaltimes a day. He does follow with a refrigeration systems installer for SVT. He has not discussed this with his refrigeration systems installer due to the fact that the patient [...] embolism, pneumonia, myocardial infarction. We also discussed long chain quiller tender risks of recurrence, dysphagia, and bloating. - While we will perform appropriate precautions to minimize patient exposure and risk, by undergoing surgery during the Covid-19 pandemic, the patient understands and accepts the unpredictable natureof the Covid-19 virus and the possibility of risks specific to the Covid-19 virus including but notlimited to pneumonia, respiratory failure, sepsis, blood clots [...] 02, 2023 TIME: 8:43 AM PAGER/CONTACT #: [phone] documented in this encounterMiddletown Hospital02-22-2024 NoteHNO ID: [id number] Author: RUTH SULLIVAN MD Service: ? Author [...] to chronic sinus drainage. 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 He [...] for back pain) done last week at [facility] patient will get this uploaded - [...] a day. He does follow with a refrigeration systems installer for SVT. He has not discussed this with his refrigeration systems installer due to the fact that the patient [...] Reactions Corticosteroids (Gl* Other: (more content not included)...[facility]02-19-2024 History of Present illness Narrative* Alpa Pearson APRN.[facility] - 03/30/2023 11:00 AM ESTSummary: SOC Images from the original note were not included. Alpa Pearson APRN.[facility] (SOC) [address], [address] [place] [id number] Patient: Maria Luz Santana Date of : [...] esophogeal manometry on 03/13/23. Patient has met withDr. Sullivan and surgery is TBD. Patient reports that he has noticed sometimes he has to catch his breath. Reports he was referred to Cardiology for clearance, was seen by Dr. Klein in [place] last week and reports there were no [...] capsule by mouth one time a week. 8capsule 0 DILT-XR 120 mg 24 hr capsule [...] compliant with BiPAP) and shortness of breath (catches breath occasionally). Negative for cough. +post nasal drainage Cardiovascular: [...] 65 Resp 18 Ht 177.8 cm (5' 10) Wt 88.9 kg (196 lb) SpO2 98% [...] after surgery: no Currently involved with Case Management/Workforce Development Assistant: no Home environment/homeless/hygiene concerns: no PHQ-9 Questionnaire: [...] regularly active (3) -Vulnerable- Limited activity/tired throughout day/slowed up (4) -Mildly Frail- Help needed with [...] Asthma: no COPD: no Hypoventilation syndrome: no Clerical Assigner: NA Recent exacerbation: No recent PNA or bronchitis Cardiac: Beta Tia use: No Hx of CAD: no Hx of HLD: no CHF: no Prior [place]: no Hx abnormal EKG: no Hx abnormal heart rhythm: no Valvular heart disease: no Hx endocarditis: no PAD: no PVD: no CVA: no HTN: yes, controlled on medication Pulmonary HTN: no Hx cardiovascular surgery: no Wellhead Pumper: Dr. Klein, will get EKG from office [...] Visit: 1.) None ACS Surgical Risk Calculator: 73729 - Laparoscopy, surgical, repair of paraesophageal hernia, [...] agents should be avoided pre and postoperatively -Gift Wrapper, Dr. Norris, partial left nephrectomy in 2020 [...] requested per surgeon, saw Dr. Klein in [place] last week -will request EKG to be [...] which included preparing to see the patient, gjci-gm-avzk patient care, completing clinical documentation, obtaining and/or reviewing separately obtained history, performing a medically appropriate examination, counseling and educating the pa tient/family/caregiver, ordering medications, tests, or procedures, and communicating with other HCPs (not separately reported). ELECTRONICALLY SIGNED AND DATED BY: Alpa Pearson APRN, CNP [facility] documented in this encounterMiddletown Hospital02-19-2024 NoteHNO ID: [id number] Author: ALPA PEARSON APRN.[facility] Service: ? Author Type: Nurse Practitioner Type: Progress Notes Filed: 03/30/2023 13:18 Note Text: Summary: SOC Alpa Pearson APRN.[facility] ([facility] [address] [place] [address], [address] [place] [id number] Patient: Maria Luz Santana Date of : [...] clearance, was seen by Dr. Klein in [place] last week and reports there were no [...] compliant with BiPAP) and shortness of breath (catches breath occasionally). Negative for cough. +post nasal drainage Cardiovascular: [...] 65 Resp 18 Ht 177.8 cm (5' 10) Wt 88.9 kg (196 lb) SpO2 98% [...] or lesion. Neurological: Ment (more content not included)...[facility]02-12-2024 Instructions* Patient Instructions* Alpa Pearson APRN.[facility] - 03/23/2023 11:23 AM EST Incentive Spirometer: [...] mobility and function preoperatively will help you torecover with less complication. Your effort preoperatively will yield better results postoperatively Stress Relief: -Deep breathing exercises -Sleep: 6-8 hours of sleep each night -Meditate -Laughing -Walking -Positive self-talk -Finding a support system -Exercise, walking, being active Nutrition: -Make sure you are getting enough protein a day, with a goal of at least 1 high- protein food with each of your three meals a day -High protein sources include: chicken breast, lean beef, salmon, tofu, peanut butter, eggs, irish yogurt, cottage cheese, black beans, lentils -Make sure you are including high calcium foods, at least 3 servings a day: low- fat dairy, dark-leafy greens, sardines, or calcium-fortified cereals [...] member be designated as your power of attorney recruiter in the event you cannot speak for [...] records with the designated Durable Power of Brick Tender. -A great web site for information: [email or web address] Sensory Aids: -If you have any sensory aids, such as hearing aids, or glasses, please bring these with you day ofsurgery -Encouraged to bring sleep hygiene items such as ear plugs and eye mask for more restful sleep during hospital stay - Information sheet on Delirium given to patient Sleep Apnea: If you have a CPAP machine, please bring that with you day of surgery. documented in this encounterMiddletown Hospital01-30-2024 NoteHNO ID: [id number] Author: RIRI CLAYTON RT(R) Service: ? Author Type: Proofing Machine Operator Type: Progress Notes Filed: 03/10/2023 13:06 Note [...] PATIENT PRESENTS WITH AN IMPLANTABLE OR ATTACHED DIAMOND DIE DRILLER: No RADIOLOGY DEPARTMENT: General X-ray: Exam(s) Completed: GI/ Procedure(s): Esophogram with barium contrast PERIPHERAL IV DATA: Not applicable SIGNED BY: RT Dena(R) March 10, 2023 1:05 [facility]01-26-2024 NoteHNO ID: [id number] Author: EDITH ROQUE RN Service: ? Author [...] of patient's questions were answered. Edith Roque [facility]01-26-2024 NoteHNO ID: [id number] Author: RUTH SULLIVAN MD Service: ? Author [...] a day. He does follow with a refrigeration systems installer for SVT. He has not discussed this with his refrigeration systems installer due to the fact that the patient [...] medium hiatal hernia; Anthony's without dysplasia; Dr. Friend INGUINAL HERNIA REPAIR HX Left 10/11/1979 open [...] and neck pain. Skin (more content not included)...[facility]01-04-2024 Discharge summary Author Rell Valentine [facility] February 12, 2023 2:20pm Note Date/Time February 12, 2023 10 :40am [facility] Medical Records Department [address] [place] [address] Emergency Department Summary 02/12/23 MR#: [id number] Acct: [id number] Name: MARIA LUZ SANTANA II Rep #:[id number] : 1950 72 From: Rell Valentine MD [...] Prior similar symptoms: Yes Recent Illness/Hospitalization: Yes [facility] Medical History Alcohol use Barretts esophagus [...] [steroids] Milk Containing Products AdvReac Diarrhea Verified 12/31/23 19:50 (Dairy) [Milk Containing Products] Family History [...] 73.0 H Lymph % (Auto) 15.5 L Blanco % (Auto) 9.5 Eos % (Auto) 0.9 [...] problems, contact your Primary Care Provider. Call [employer] [facility] ([phone]) or report to the closest Emergency Room. Call 911 if necessary. 02/12/23 1420 <Electronically signed by Rell Valentine MD> Cosigner Signature (if applicable): CC: Dr. Ana Casiano MD ~ Signed [facility] Work Phone: 1(640) 222-663112-31-2023 Discharge summary Author Kenton Dillard [facility] February 08, 2023 8:55pm Note Date/Time February 08, 2023 8:55pm [facility] System Medical Records Department [address] [place] [address] Emergency Department Summary 02/08/23 MR#: [id number] Acct: [id number] Name: MARIA LUZ SANTANA II Rep #:[id number] : 1950 72 From: Kenton Dillard MD PCP: Dr. Ana Casiano MD Status:PRE ER Location: ED HPI History of Present Illness Chief Complaint: Other, Pain/Inj Narrative Narrative: Patient presents with soreness in the tip of his penis. Patient had a flulike illness over . He was written for a Z-Joon on [id number]. He took this for several days. His [...] but other than that he feels fine. [facility] Medical History (Updated 02/08/23 @ 20:54 by [...] GERD) Primary Care Provider: Ana Casiano Referrals: nAa Casiano MD [Primary Care Provider] - 1 Week if not improving Activity Restrictions/Additional Instructions: Use the clotrimazole cream twice a day for the next 2-3 weeks Disposition Disposition: Home, Self Care What to do if you have Problems For any increased pain, shortness of breath, bleeding, nausea or vomiting, chestpain, or any unexpected problems, contact your Primary Care Provider. Call [facility] ([phone]) or report to the closest Emergency Room. Call 911 if necessary. 02/08/232054 <Electronically signed by Kenton Dillard MD> Cosigner Signature (if applicable): CC: Dr. Ana Casiano MD ~ Signed [facility] Work Phone: 1(659) 724-243612-31-2023 Hospital Discharge instructions Additional Instructions Use the clotrimazole cream twice a day for the next 2-[facility] Work Phone: 1(146) 940-856012-06-2023 Discharge summary Author Yusuf Jurado [facility] January 14, 2023 8:55pm Note Date/Time January 14, 2023 7 :09pm [facility] System Medical Records Department [address] [place] [address] Emergency Department Summary 01/14/23 MR#: [id number] Acct: [id number] Name: MARIA LUZ SANTANA II Rep #:[id number] : 1950 72 From: Yusuf Jurado MD PCP: Dr. Ana Casiano MD Status:REG ER Location: ED HPI History of Present Illness Chief Complaint: Lower Extremity Injury Narrative Narrative: 72-year-old male past medical history of hypertension, states he fell a few years back and shattered his left hip. This required plate and [...] soreness to his left greater trochanter area. [facility] Medical History (Updated 01/14/23 @ 20:53 by [...] or muscular in nature. He will take cctx-tkb-guemjku analgesics as needed and follow-up with his [...] Signed: Mukesh Guardado MD at 20:49 EST , Discharge Plan Triage Chief Complaint: Lower [...] your Primary Care Provider. Call [facility] ([phone]) or report to the closest Emergency Room. Call 911 if necessary. 01/14/232054 <Electronically signed by Yusuf Jurado MD> Cosigner Signature (if applicable): CC: Dr. Ana Casiano MD ~ Signed [facility] Work Phone: 1(877) 515-127911-13-2023 Procedure [facility] 12-22-2022 Procedure [facility]11-13-2023 History and physical note Author Kaiden Friend [facility] December 22, 2022 8:50am Note Date/Time December 22, 2022 8:50am [facility] System Medical Records Department [address] [place] [address] History & Physical Exam 12/22/22 0850 MR#: [id number] Acct: [id number] Name: MARIA LUZ SANTANA TL Rep #:[id number] : 1950 72 From: Kaiden Gill DO PCP: Dr. Ana Casiano MD Status:[facility] Location: [place] [address] History and Physical Date of Admission: 12/22/22 MARIA LUZ SANTANA, is a 72 M who presents to the office today for initial consult. PCP OV 06.02. with back pain (spinal stenosis). Additional difficulty with GERD?CT abd/pel 4?small gallstones; renal nodules; small hiatal hernia? ?OV [...] Judgment: judgment good Quality Reporting Tobacco Screening ([facility] 138) Smoking Status: Never smoker Assessment and [...] Ana Casiano MD; Kaiden Gill DO~ Signed [facility] Work Phone: Discharge summary Author Latonia Petersen [facility] Note Date/Time September 03, 2024 11:1 4am [facility] Medical Records Department [address] [place] [address] Emergency Department Summary 09/03/24 MR#: [id number] Acct: [id number] Name: MARIA LUZ SANTANA II Rep #:[id number] : 1950 73 From: Latonia Roth PCP: Dr. Ana Casiano MD Status:REG ER Location: ED HPI History of Present Illness Chief Complaint: Chest Pain Informant: patient Narrative Narrative: Patient is a 73-year-old male with history of SVT, Anthony's esophagus, GERD andobstructive sleep apnea as well as hyperlipidemia presenting for chest discomfort. Patient states that he woke up at around 5 AM this morning. Statesit is on the left side of his chest and he has some numbness going down his leftarm. States it is worse with some movements. Has had symptoms like this beforeand states it is usually not his heart. Denies any acute shortness of breath but states he always has a little bit of shortness of breath associate with his Anthony's. Denies any recent leg swelling. Does note that yesterday he is concerned an episode of heat exhaustion or heatstroke. States he was out mowinBloominous (a self-propelled walking mower) and was wearing headphones as well as hat. He states is very hot out and he feels like he got overheated. He came inside and was profusely sweating for about an hour. He fell asleep. He stateshe had an episode of cramping lower abdominal pain and diarrhea. He does not recall if there is any blood in his stool (states he did not look). Had some nausea but no vomiting. The symptoms have since resolved. His states thathe might of had streaks of stroke but he did not actually think about it and that is why did not come in yesterday. He is also concerned that his SVT could be acting up. He notes he has been feeling a little off lately but no other specific complaints. Has not had any aspirin today. Denies any swelling of hislegs. Denies any history of coronary artery disease, stenting or cardiac catheterization. States his last tress test was about 2 years ago and he stateswas normal. [facility] Medical History Right foot strain Barretts [...] fracture GERD (gastroesophageal reflux disease) Home Medications ?Medication ?Instructions ?Recorded ?Last Taken ?Type lisinopril 20 mg tablet 20 mg PO BID HTN 02/20/21 History diltiazem HCl 120 mg 120 mg PO BID 08/14/23 Unkno wn History capsule,extended release 24 hr, controlled (DILT-XR) indapamide 1.25 mg tablet 1.25 mg PO QAM 08/19/24 Unkn own History Allergy/AdvReac Type Severity Reaction Status Date / Time Egg Derived Allergy Severe Food Verified 09/03/24 07:53 Allergy febuxostat (From Uloric) Allergy Intermediate Other Verified 09/03/24 07:53 Penicillins Allergy Anaphylaxis Verified 09/03/24 07:53 omeprazole AdvReac Intermediate Rash Verified 09/03/24 07:53 pantoprazole (From Protonix) AdvReac Intermediate Hives Verified 09/03/24 07:53 Corticosteroids AdvReac Hypertensio Verified 09/03/24 07:53 (Glucocorticoids) (steroids) n Milk Containing Products AdvReac Diarrhea Verified 09/03/24 07:53 (Dairy) (Milk Containing Products) Family History Mother Diabetes Dementia Heart disease tachycardia Father Heart disease Leukemia Surgical History History of repair of hiatal hernia History of esophagogastroduodenoscopy (EGD) History of colonoscopy History of partial [...] week ROS ROS ED Constitutional Constitutional ED: Reports sweats; Denies chills or fever(s) ENT ENT ED: Denies sore throat Cardiovascular Cardiovascular: Reports as per HPI and chest pain; Denies palpitations Respiratory/Chest Respiratory/Chest: Reports dyspnea; Denies cough Gastrointestinal Gastrointestinal: Reports abdominal pain, diarrhea and nausea; Denies vomiting Musculoskeletal Musculoskeletal: Denies arthralgias or myalgias Neurologic Neurologic: Reports paresthesias RUE Psychiatric Psychiatric: Denies anxiety Hematologic/Lymphatic Hematologic/Lymphatic: Denies easy bleeding or easy bruising EXAM Physical Exam Const Vital Signs: 09/03/24 07:49 09/03/24 08:07 09/03/24 08:49 Temperature 98.4 F Temperature Source Oral Pulse Rate 49 L 41 L Respiratory Rate 18 19 H Blood Pressure 126/79 H 109/67 Blood Pressure Mean 94 81 Pulse Ox 99 97 Oxygen Delivery Method Room Air Room Air Room Air 09/03/24 09:00 09/03/24 10:00 09/03/24 11:00 Temperature Temperature Source Pulse Rate 48 L 48 L 46 L Respiratory Rate 19 H 18 18 Blood Pressure 111/69 109/65 109/68 Blood Pressure Mean 83 79 81 Pulse Ox 98 99 100 Oxygen Delivery Method Room Air Room Air Room Air Positive well nourished and well developed General Appearance ED: well developed and NAD; Negative for pallor HEENT HEENT Narrative: Mildly tacky mucosal membranes normocephalic and atraumatic Eyes PERRL Neck supple and no JVD Chest Wall inspection of chest normal and palpation of chest normal Chest Narrative: No significant reproducibility of chest pain with palpation of the chest. No chest wall crepitus Resp normal respiratory effort and clear to auscultation bilaterally Cardio regular rate, regular rhythm and no murmurs Cardio Narrative: 2+ radial and PT pulses bilaterally GI normal to inspection, nondistended, normoactive bowel sounds, soft to palpation and non-tender Extremity normal to inspection General Extremety ED: Negative for edema General Extremity: Negative for edema Neuro oriented x3 Sensorium / Orientation: awake and alert Motor Exam: Negative for general weakness Psych mental status grossly normal Skin no rashes or lesions noted and no wounds General Skin Exam: Negative for pallor Heart Score History: Slightly/Non-Suspicious ECG: Normal Age: >/= 65 years Risk Factors: 1 or 2 Risk Factors Troponin: </= Normal Limit Score: 3 MDM MDM MDM Narrative Medical decision making narrative: Patient is evaluated for an episode of waves concern for heatstroke yesterday and chest pain today. Patient peers nontoxic in no acute distress. Vital signssignificant for mild bradycardia however patient is on diltiazem at baseline. Differential includes ACS, muscle skeletal chest pain/atypical chest pain, pneumonia, pneumothorax, rhabdomyolysis, dehydration and electrolyte abnormality. His abdomen is currently soft and nontender his lower suspicion for intra-abdominal process such as diverticulitis. He is currently has a normal temperature so low suspicion for hyperthermia at this time. Will obtain workup including troponins, CBC, BMP as well as CPK. EKG shows sinus bradycardia with no acute ischemia. Patient given IV fluids and aspirin in the emergency room Patient reevaluated. States he feels better after fluids.-See troponin stable at 18 and 16. Low suspicion for ACS. Will be discharged home to follow-up withhis primary care doctor. Remains hemodynamically stable in the emergency room. Does have some resting bradycardia which he is asymptomatic with and I suspect his chronic release but she is on diltiazem. Given return precautions. Discharged home in stable condition Lab Data Attestation: I reviewed the patient's lab results. Labs: Laboratory Results - last 24 hr 09/03/24 09/03/24 08:03 10:15 WBC 5.3 RBC 4.01 L Hgb 13.0 Hct 37.5 L MCV 93.5 MCH 32.4 H MCHC 34.7 RDW Std Deviation 46.7 H RDW Coeff of Tin 13.7 Plt Count 182 MPV 9.5 Immature Gran % (Auto) 0.400 Neut % (Auto) 65.1 Lymph % (Auto) 21.4 Blanco % (Auto) 10.1 H Eos % (Auto) 2.4 Baso % (Auto) 0.6 Absolute Neuts (auto) 3.5 Absolute Lymphs (auto) 1.14 Nucleated RBC % 0 Sodium 139 Potassium 4.1 Chloride 102 Carbon Dioxide 24.2 Anion Gap 13 BUN 15 Creatinine 1.08 Estim Creat Clear Calc 67.25 Est GFR (MDRD) Non-Af 72 BUN/Creatinine Ratio 13.8 Glucose 120 H Calcium 9.7 Magnesium 2.3 H Total Creatine Kinase 96 Troponin T High Sens 18 Troponin T Hi Sens 2 Hr 16 Radiography Chest X-Ray - ED: 2 View, Read by ED Physician, Read by Radiologist and No AcuteDisease Diagnostic Testing: Clinical Impression(s) from Imaging Studies Chest X-Ray 09/03/24 08:15 IMPRESSION: No acute cardiopulmonary abnormalities. Reading Location: [facility] Rhythm Strip Rhythm Strip: Sinus Rhythm Rate: 50 Ectopy: None EKG Initial EKG: Attestation: I personally reviewed and interpreted this EKG as follows: Interpretation: Sinus Bradycardia Comments: Sinus bradycardia at a rate of 50 bpm Normal axis Normal intervals Normal ST segments Discharge Plan Triage Chief Complaint: Chest Pain ED Provider: Latonia Petersen Dx/Rx/DC Orders Clinical Impression: Chest pain, Bradycardia Instructions: ED Chest Pain, Uncertain Cause Prescriptions: No Action lisinopril 20 mg tablet 20 mg PO BID Patient Comments: TAKE 1 TABLET BY MOUTH TWICE DAILY indapamide 1.25 mg tablet 1.25 mg PO QAM diltiazem HCl [DILT-XR] 120 mg capsule,ext.rel 24h degradable 120 mg PO BID Primary Care Provider: Ana Casiano Referrals: Ana Casiano MD [Primary Care Provider] - Activity Restrictions/Additional Instructions: Your workup today was very reassuring. Does not appear to be any acute cardiac process going on. Please follow with your family doctor. They might want to repeat a stress test. Print Language: Burundian Disposition Disposition: Home, Self Care What to do if you have Problems For any increased pain, shortness of breath, bleeding, nausea or vomiting, chestpain, or any unexpected problems, contact your Primary Care Provider. Call [facility] ([phone]) or report to the closest Emergency Room. Call 911 if necessary. 09/03/24 1114 <Electronically signed by Latonia Petersen DO> Cosigner Signature (if applicable): CC: Dr. Ana Casiano MD ~ Signed [facility] Work Phone: Evaluation noteThere may be information available, but it has not been provided by the sender.[facility] Work Phone: Evaluation note* Diagnosis Onset Date Resolution Status Tachyarrhythmia acute Essential hypertension chron ic Hyperlipidemia [facility] Work Phone: Evaluation note* Diagnosis Onset Date Resolution Status Tachyarrhythmia acute Essential hypertension chron ic Hyperlipidemia chronic Chest pain, atypical acute History of renal disease acu [facility] Work Phone: Evaluation note* Diagnosis Onset Date Resolution Status Chest pain, atypical [facility] noteNo assessment information available [facility] Work Phone: Evaluation note* Diagnosis Onset Date Resolution Status Chest pain acute FORREST (dyspnea on exertion) ac [facility] Fatigue acute Tachyarrhythmia acute Essential hypertension chron ic Hyperlipidemia chronic [facility] Work Phone: Evaluation note* Diagnosis Onset Date Resolution Status Chest pain acute FORREST (dyspnea on exertion) ac [facility] Fatigue acute Tachyarrhythmia acute Essential hypertension chron ic Hyperlipidemia chronic Tachyarrhythmia acute Essential hypertension chron ic Hyperlipidemia [facility] Work Phone: Evaluation note* Diagnosis Onset Date Resolution Status Difficulty swallowing acute Acute upper respiratory infection acute [facility] Work Phone: Evaluation note* Diagnosis Onset Date Resolution Status Difficulty swallowing acute Acute upper respiratory infection acute Palpitations acute Tachyarrhythmia acute Essential hypertension chron ic Hyperlipidemia chronic [facility] Work Phone: Evaluation note* Diagnosis Onset Date Resolution Status Palpitations acute Tachyarrhythmia acute Essential hypertension chron ic Hyperlipidemia chronic Multiple lung nodules on CT acute STEPHANY (obstructive sleep apnea) chronic [facility] Work Phone: Evaluation note* Diagnosis Paraesophageal hernia- Primary Diaphragmatic hernia without mention of obstruction or gangrene Preoperative examination Preoperative examination, unspecified STEPHANY treated with BiPAP Gastroesophageal reflux disease with esophagitis without hemorrhage SVT (supraventricular tachycardia) Other specified cardiac dysrhythmias Hypertension, unspecified type [facility] Diagnosis Gastroesophageal reflux disease with esophagitis without hemorrhage- Primary Hiatal hernia Diaphragmatic hernia without mention of obstruction or gangrene Anthony's esophagus without dysplasia Anthony's esophagus Hypertension, unspecified type STEPHANY treated with BiPAP SVT (supraventricular tachycardia) Other specified cardiac dysrhythmias [facility] Diagnosis Onset Date Resolution Status Multiple lung nodules on CT acute STEPHANY (obstructive sleep apnea) chronic Preoperative cardiovascular examination acute Shortness of breath acute Tachyarrhythmia acute Essential hypertension chron ic Hyperlipidemia chronic [facility] Work Phone: Evaluation note* Diagnosis Pain in thoracic spine [facility] Diagnosis Paraesophageal hernia- Primary Diaphragmatic hernia without mention of obstruction or gangrene Paraesophageal hernia Diaphragmatic hernia without mention of obstruction or gangrene [facility] Diagnosis Pain in thoracic spine- Primary Paraesophageal hernia Diaphragmatic hernia without mention of obstruction or gangrene [facility] Diagnosis Pre-op exam Preoperative examination, unspecified [...] obstruction or gangrene [facility] Diagnosis Status post repair of paraesophageal diaphragmatic hernia- Primary Other postprocedural status Anthony's esophagus without dysplasia Anthony's esophagus STEPHANY treated with BiPAP Thrush of mouth and esophagus (HCC) (HCC) Candidiasis of the esophagus [facility] Diagnosis Pre-op examination- Primary Preoperative examination, [...] Problem(s): Migraine with aura Managed by PCP. Neal hart. * Assessment & Plan Note - Ciro [...] bipap * Assessment & Plan Note - Ciro Steele PA - 09/24/2023 12:24 PM EDT Associated Problem(s): Pre-op examination See note for medical conditions which may affect familia-operative course that were addressed at today's visit. [facility] Diagnosis Pre-op exam Preoperative examination, unspecified [...] to other organs documented in this encounter [facility] note* Diagnosis Pre-op exam Preoperative examination, unspecified [...] dysplasia Anthony's esophagus documented in this encounter [facility] note* Diagnosis Pre-op exam Preoperative examination, unspecified [...] Diarrhea, unspecified type documented in this encounter [facility] note* Diagnosis Pre-op exam Preoperative examination, unspecified [...] Diarrhea, unspecified type [facility] Diagnosis Pre-op exam Preoperative examination, unspecified [...] single bacterial disease [facility] Diagnosis Onset Date Resolution Status Admit Date Difficulty swallowing acute Aug 7:55am [employer] Work Phone: Evaluation note* Diagnosis Pre-op exam Preoperative examination, unspecified [...] unspecified Thrush of mouth and esophagus (HCC) Candidiasis of the esophagus STEPHANY (obstructive [...] Personal history of surgery to other organs 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 Clinically this does not sound like cardiac chest pain. Follow-up with your doctor if not improving or return if worse.[facility] Work Phone: Hospital Discharge instructions Additional Instructions Tylenol as needed for pain. You may also follow-up with Dr. Salvador, your orthopedic surgeon as needed.[facility] Work Phone: Hospital Discharge instructions Additional Instructions Follow-up with your PCP and return for any worsening of your symptoms.[facility] Work Phone: Hospital Discharge instructionsAdditional Instructions Your workup today was very reassuring. Does not appear to be any acute cardiac process going on. Please follow with your family doctor. They might want to repeat a stress test. [facility] Work Phone: Instructions* Instruction Description Start Date CompletedPatient advised to follow-up with Primary Care Physician for BMI management. [facility] Work Phone: Instructions* Instruction Description Start Date Completed [facility] Work Phone: Reason for referral (narrative)* Outpatient Procedure (Routine) - New Request Specialty Diagnoses / Procedures Referred By Ankit barraza Referred To Contact [facility] Diagnoses Thrush of mouth and esophagus (HCC) (HCC) Procedures EGD DIAGNOSTIC ESOPHAGOGASTRODUODENOSC OPY TRANSORAL DIAGNOSTIC Ruth Sullivan MD [address] [employer] [address] [address] [facility] [address] [place] [address] Referral ID Status Reason Start Date Expiration Date Visits Requested Visits Authorized [id number] New Request Auto-Generat ed Referral 08/28/2023 08/27/2024 1 1 [facility] for referral (narrative)* Diagnostic Procedure Only (Routine) - Authorized Specialty Diagnoses / Procedures Referred By Ankit barraza Referred To Contact XR IMAGING Diagnoses History of fundoplication Procedures XR UPPER GI SINGLE CONTRAST RADIOLOGIC EXAM UPR GI TRC SINGLE CONTRAST STUDY Ruth Sullivan MD [address] [employer] [address] [address] Xr Imaging [facility] Referral ID Status Reason Start Date Expiration Date Visits Requested Visits Authorized [id number] Authorized Auto-Generat ed Referral 09/24/2023 10/23/2024 1 1 * Outpatient Procedure (Routine) - Closed Specialty Diagnoses / Procedures Referred By Ankit barraza Referred To Contact [facility] Diagnoses Thrush of mouth and esophagus (HCC) (HCC) Procedures EGD DIAGNOSTIC EGD DIAGNOSTIC ESOPHAGOGASTRODUODENOSC OPY TRANSORAL DIAGNOSTIC Ruth Sullivan MD [address] [employer] [address] [address] [facility] [address] [place] [address] Referral ID Status Reason Start Date Expiration Date V isits Requested Visits Authorized [id number] Closed Auto-Generate d Referral 08/28/2023 08/27/2024 1 1 [facility] for referral (narrative)* Diagnostic Procedure Only (Routine) - Closed Specialty Diagnoses / Procedures Referred By Contac t Referred To Contact XR IMAGING Diagnoses History of fundoplication Procedures XR UPPER GI SINGLE CONTRAST RADIOLOGIC EXAM [facility] GI TR SINGLE CONTRAST STUDY Ruth Sullivan MD [address] [employer] [address] [address] [place] [address] Referral ID Status Reason Start Date Expiration Date V isits Requested Visits Authorized [id number] Closed Auto-Generate d Referral 09/24/2023 10/23/2024 1 1 [facility] for referral (narrative)No reason for referral [facility] Narrative* Outpatient Procedure (Routine) - Closed Specialty Diagnoses / Procedures [facility] To [facility] Diagnoses Thrush of mouth and esophagus (HCC) (HCC) Procedures EGD DIAGNOSTIC EGD DIAGNOSTIC ESOPHAGOGASTRODUODENOSC OPY TRANSORAL DIAGNOSTIC Ruth Sullivan MD [address] [address] [facility] [address] [place] [address] Referral ID Status Reason Start Date Expiration Date V isits Requested Visits Authorized [id number] Closed Auto-Generate d Referral 08/28/2023 08/27/2024 1 1 [facility] for visit Narrative* Diagnostic Procedure Only (Routine) - Closed Specialty Diagnoses / Procedures Referred By Contac t Referred To Contact XR IMAGING Diagnoses History of fundoplication Procedures XR UPPER GI SINGLE CONTRAST RADIOLOGIC EXAM [facility] GI TR SINGLE CONTRAST STUDY Ruth Sullivan MD 1 [employer] [address] [address] [place] [address] Referral ID Status Reason Start Date Expiration Date V isits Requested Visits Authorized [id number] Closed Auto-Generate d Referral 09/24/2023 10/23/2024 1 1 [facility] N[facility]* Auth/Cert (Routine) Specialty Diagnoses / Procedures Referred By Ankit barraza Referred To Contact [facility] Diagnoses Other fecal abnormalities Procedures COLONOSCOPY FLX W/REMOVAL OF FOREIGN BODY(S) Ambulatory Surgery [address] [place] [address] Phone: tel: Referral ID Status Reason Start Date Expiration Date Visits Re quested Visits Authorized [id number] 1 1 [facility] Chief Complaint Chief Complaint Description Start Date [...] June 09, 2020 3: 49pm Power of Brick Tender Yes June 09, 2020 3:49pm Advance Directive Response Recorded Date/ Time Advance Directives No January 7:11am Living Will Yes June 12, 2021 12 :08pm Power of Brick Tender Yes June 12, 2021 12:08pm Advance Directive Response Recorded Date/ Time Name of Medical Power of Brick Tender KAYLAN Su Santana June 12, 2021 12:08pm Advance Directives No January 7:11am Living Will Yes June 12, 2021 12 :08pm Power of Brick Tender Yes June 12, 2021 12:08pm Advance Directive Response Recorded Date/ Time Advance Directives No January 6:11am Living Will No December 18 3:57pm Power of Brick Tender No December 18, 2021 3:57pm Advance Directive Response Recorded Date/ Time Advance Directives No January 6:11am Living Will No February 10 8:20am Power of Brick Tender No February 10 023 8:20am Advance Directive Response Recorded Date/ Time Advance Directives No January 7:11am Living Will No February 10 9:20am Power of Brick Tender No February 10 023 9:20am Advance Directive Response Recorded Date/ Time Advance Directives No January 6:11am Living Will No December 19, 2 023 10:42am Power of Brick Tender No December 19, 2022 10:42am Advance Directive Response Recorded Date/ Time Advance Directives No January 6:11am Living Will No January 14 7:22pm Power of Brick Tender No January 14, 2023 7:22pm Advance Directive Response Recorded Date/ Time Advance Directives No January 6:11am Living Will No February 08, 2 023 8:06pm Power of Brick Tender No February 08, 2023 8:06pm Advance Directive Response Recorded Date/ Time Advance Directives No January 6:11am Living Will No February 12 10:14am Power of Brick Tender No February 12 024 10:14am Advance Directive Response Recorded Date/ Time Advance Directives No January 6:11am Living Will No February 13 6:24pm Power of Brick Tender No February 13 2 024 6:24pm Advance Directive Response Recorded Date/ Time Advance Directives No January 7:11am Living Will No February 13 7:24pm Power of Brick Tender No February 13 2 024 7:24pm Advance Directive Response Recorded Date/ Time Name of Medical Power of Brick Tender Su May 01, 2023 2:45pm Advance Directives No January 7:11am Living Will Yes May 01, 2023 2:45pm Power of Brick Tender Yes April 30 2:45pm Documents on File Type Date Recorded Patient Cushion Filler Expl anation Advance Directive(s) 05/05/2023 2:32 PM Date Activated Date Inactivated Comments 05/12/2023 12:48 PM 05/13/2023 5:02 PM Question Answer Comments Full Code Order Discussed With: Patient Documents on File Type Date Recorded Patient Cushion Filler Expl anation Advance Directive(s) 05/05/2023 2:32 PM Date Activated Date Inactivated Comments 05/12/2023 12:48 PM 05/13/2023 5:02 PM Question Answer Comments Full Code Order Discussed With: Patient Advance Directive Response Recorded Date/ Time Advance Directives No January 7:11am Advance Directive Response Recorded Date/ Time Do you have a Healthcare Power of Brick Tender? Yes September 03, 2024 7:57am Name of Medical Power of Brick Tender Su Santana September 03, 2024 7:57am Advance Directives No January 7:11am Advance Directive Response Recorded Date/ Time Living Will Yes May 01, 2023 2:45pm Do you have a Healthcare Power of Brick Tender? Yes May 01, 2023 2:45pm Do you have a Healthcare Power of Brick Tender? Yes September 03, 2024 7:57am Name of Medical Power of Brick Tender Su Santana September 03, 2024 7:57am Advance Directives No January 7:11am Advance Directive Response Recorded Date/ Time Living Will Yes May 01, 2023 2:45pm Do you have a Healthcare Power of Brick Tender? Yes May 01, 2023 2:45pm Advance Directives No October 06, 2024 8:46am Do you have a Healthcare Power of Brick Tender? 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 PAIN- COPY PCP CP s/p [facility] 12 E ORDER CHEST PAIN Reason for Visit Chest pain FORREST (dyspnea on exertion) Fatigue Tachyarrhythmia Essential hypertension Hyperlipidemia Chief Complaint CP s/p [facility] 1230 E ORDER CHEST PAIN 3 M FU Reason for Visit Chest pain FORREST (dyspnea on exertion) Fatigue Tachyarrhythmia Essential hypertension Hyperlipidemia Tachyarrhythmia Essential hypertension Hyperlipidemia Chief Complaint CP s/p [facility] 1230 E ORDER CHEST PAIN 3 [...] Difficulty swallowing August 19, 2024 7: 55am Chief Complaint Admit Date HEADACHE May 23, 2024 2:5 3pm PSA June 20, 2024 10:03 am PAIN IN ESOPHAGUS August 19, 2024 7:55 am Chest Pain September 03, 2024 7:48 am Chief Complaint Admit Date PSA June 20, 2024 10:03 am PAIN IN ESOPHAGUS August 19, 2024 7:55 am Chest Pain September 03, 2024 7:48 am 1 Y FU September 29, 2024 11 :16am Chief Complaint Admit Date PSA June 20, 2024 10:03 am PAIN IN ESOPHAGUS August 19, 2024 7:55 am Chest Pain September 03, 2024 7:48 am 1 Y FU September 29, 2024 11 :16am R ANKLE/FOOT, R SIDE RIBS INJURY October 06, 2024 8:42am XRAY October 06, 2024 8: 48am Reason for Visit Admit Date Difficulty swallowing August 19, 2024 7: 55am [place] coronary artery calcium score g reater than 400 September 29, 2024 11:16am Shortness of breath September 29, 2024 11 :16am Tachyarrhythmia September 29, 2024 11 :16am Essential hypertension September 29, 2024 11:16am Hyperlipidemia September 29, 2024 11 :16am Reason for Referral Specialty Diagnoses / Procedures Referred By Contac t Referred To Contact Diagnoses Gastroesophageal reflux disease with esophagitis without hemorrhage Procedures CONSULT TO PRE-SURGICAL TESTING (AG) Ruth Sullivan MD [address] [address] Referral ID Status Reason Start Date Expiration Date Visits Requested Visits Authorized [id number] Ref Not Required PCP Requested Referral 04/02/2023 07/01/2023 1 1 Specialty Diagnoses / Procedures Referred By Contac t Referred To Contact Diagnoses Paraesophageal hernia Procedures CONSULT TO PRE-SURGICAL TESTING (AG) Ruth Sullivan MD [address] [address] Referral ID Status Reason Start Date Expiration Date Visits Requested Visits Authorized [id number] Ref Not Required PCP Requested Referral 04/23/2023 07/22/2023 1 1 Summary Purpose Additional Source Comments Reason for Visit (unrecogniz ed section and content) Reason Comments Physical Therapy Specialty Diagnoses / Procedures Referred By Contac t Referred To Contact Physical Therapy / PHYSICAL THERAPY Diagnoses back pain pt will hand carry referal to appt Procedures NEW RS PT SPINE Flakito Olson Damien [address] [place] [address] Pantera Gallegos, PT [address] [place] [address] Referral ID Status Reason Start Date Expiration Date V isits Requested Visits Authorized [id number] Authorized 02/09/2023 02/09/2024 99 99 Reason For [...] Follow Up colonoscopy Reason Comments 04-01-2024 [facility] Reason Comments Consult Goals (unrecognized section and content) Goals may [...] Provider, Referring P rovider Active Yamilet Benavides COMMUNICATION INSTRUCTOR, COMMUNICATION INSTRUCTOR-C Attending Provider Active Team Status: Inactive Member [...] MD Primary Care Provider Active Yamilet Benavides COMMUNICATION INSTRUCTOR, COMMUNICATION INSTRUCTOR-C Attending Provider Active Team Status: Inactive Member Role Status Dates Dr. Ana Casiano MD Primary Care Provider Active Yamilet Benavides COMMUNICATION INSTRUCTOR, COMMUNICATION INSTRUCTOR-C Attending Provider, Referring P rovider Active Team [...] Ata ADAME PA Attending Provider, Referring Provi mua Active Team Status: Active Member Role Status Dates Dr. Ana Casiano MD Primary Care Provider, Referring P rovider Active Dr. Kaiden Gill DO Attending Provider, Other Prov ider Active Team Status: Active Member Role Status Dates Dr. Ana Casiano MD Primary Care Provider Active Yamilet Benavides COMMUNICATION INSTRUCTOR, COMMUNICATION INSTRUCTOR-C Attending Provider Active Team Status: Inactive Member Role Status Dates Dr. Ana Casiano MD Primary Care Provider Active Dr. Jaqueline Campbell MD Attending Provider, Referring P rovider Active Team Status: Active Member Role Status Dates Dr. Ana Casiano MD Primary Care Provider Active Richie Lai COMMUNICATION INSTRUCTOR, COMMUNICATION INSTRUCTOR-C Attending Provider Active Team Status: Inactive Member Role Status Dates Dr. Ana Casiano MD Primary Care Provider Active Yusuf Jurado MD Referring Provider, Emergency Provid er Active Team Status: Active Member Role Status Dates Dr. Ana Casiano MD Primary Care Provider Active Dr. Dwayne Klein MD Attending Provider Active Yamilet Benavides COMMUNICATION INSTRUCTOR, COMMUNICATION INSTRUCTOR-C Referring Provider Active Team Status: Inactive Member [...] Casiano MD Primary Care Provider, Referring P rogeorginader Active Dr. Cristiano Newman DO Attending Provider [...] MD Attending Provider, Referring Pro vider Active Door Slinger Relationship Specialty Start Date End Date Ana Casiano MD [address] [place] [place] [address] PCP - General Family Medicine 01/12/18 Door Slinger Relationship Specialty Start Date End Date Ana Casiano MD [address] [place] [address] PCP - General Family Medicine 01/12/18 Dwayne Klein MD [address] [place] [id number] Cardiology 04/02/23 Door Slinger Relationship Specialty Start Date End Date Ana Casiano MD [address] [place] [address] PCP - General Family Medicine 01/12/18 Dwayne Klein MD [address] [place] [address] Cardiology 04/02/23 Team Status: Active Member Role Status Dates Dr. Ana Casiano MD Primary Care Provider Active JIMMY ORELLANA Attending Provider, Referring Provid er Active Door Slinger Relationship Specialty Start Date End Date Ana Casiano MD [address] [place] [address] PCP - General Family Medicine 01/12/18 Dwayne Klein MD [address] [place] [address] Cardiology 04/02/23 Door Slinger Relationship Specialty Start Date End Date Ana Casiano MD [address] [place] [address] PCP - General Family Medicine 01/12/18 Dwayne Klein MD [address] [place] [address] Cardiology 04/02/23 Team Status: Inactive Member Role Status Dates Dr. Ana Casiano MD Primary Care Provider Active JIMMY ORELLANA Attending Provider, Referring Provid er Active Team Status: Inactive Member Role Status Dates Dr. Ana Casiano MD Primary Care Provider, Attending Iris cano Active Door Slinger Relationship Specialty Start Date End Date Ana Casiano MD [address] [place] [address] PCP - General Family Medicine 01/12/18 Dwayne Klein MD [address] [place] [address] Cardiology 04/02/23 Door Slinger Relationship Specialty Start Date End Date Ana Casiano MD [address] [place] [address] PCP - General Family Medicine 01/12/18 Dwayne Klein MD [address] [place] [address] Cardiology 04/02/23 Door Slinger Relationship Specialty Start Date End Date Ana Casiano MD [address] [facility] [place] [address] PCP - General Family Medicine 01/12/18 Dwayne Klein MD [address] [place] [address] Cardiology 04/02/23 Team Status: Inactive Member Role Status Dates Dr. Ana Casiano MD Primary Care Provider Active Dr. Jc Villarreal MD Emergency Provider Active Door Slinger Relationship Specialty Start Date End Date Ana Casiano MD [address] [place] [address] PCP - General Family Medicine 01/12/18 Dwayne Klein MD [address] [place] [address] Cardiology 04/02/23 Door Slinger Relationship Specialty Start Date End Date Ana Casiano MD [address] [place] [address] PCP - General Family Medicine 01/12/18 Dwayne Klein MD [address] [place] [address] Cardiology 04/02/23 Door Slinger Relationship Specialty Start Date End Date Ana Casiano MD [address] [place] [address] PCP - General Family Medicine 01/12/18 Dwayne Klein MD [address] [place] [address] Cardiology 04/02/23 Door Slinger Relationship Specialty Start Date End Date Ana Casiano MD [address] [place] [address] PCP - General Family Medicine 01/12/18 Dwayne Klein MD [address] [place] [address] Cardiology 04/02/23 Door Slinger Relationship Specialty Start Date End Date Ana Casiano MD [address] [place] [address] PCP - General Family Medicine 01/12/18 Dwayne Klein MD [address] [place] [address] Cardiology 04/02/23 Door Slinger Relationship Specialty Start Date End Date Ana Casiano MD [address] [place] [address] PCP - General Family Medicine 01/12/18 Dwayne Klein MD [address] [place] [address] Cardiology 04/02/23 Door Slinger Relationship Specialty Start Date End Date Ana Casiano MD [address] [place] [address] PCP - General Family Medicine 01/12/18 Dwayne Klein MD [address] [place] [address] Cardiology 04/02/23 Door Slinger Relationship Specialty Start Date End Date Ana Casiano MD [address] [place] [address] PCP - General Family Medicine 01/12/18 Dwayne Klein MD [address] [place] [address] Cardiology 04/02/23 Door Slinger Relationship Specialty Start Date End Date Ana Casiano MD [address] [place] [address] PCP - General Family Medicine 01/12/18 Dwayne Klein MD [address] [place] [address] Cardiology 04/02/23 Door Slinger Relationship Specialty Start Date End Date Ana Casiano MD [address] [place] [address] PCP - General Family Medicine 01/12/18 Dwayne Klein MD [address] [place] [address] Cardiology 04/02/23 Door Slinger Relationship Specialty Start Date End Date Ana Casiano MD [address] [place] [address] PCP - General Family Medicine 01/12/18 Dwayne Klein MD [address] [place] [address] Cardiology 04/02/23 Door Slinger Relationship Specialty Start Date End Date Ana Casiano MD [address] [place] [address] PCP - General Family Medicine 01/12/18 Dwayne Klein MD [address] [place] [address] Cardiology 04/02/23 Door Slinger Relationship Specialty Start Date End Date Ana Casiano MD [address] [place] [address] PCP - General Family Medicine 01/12/18 Dwayne Klein MD [address] [place] [address] Cardiology 04/02/23 Door Slinger Relationship Specialty Start Date End Date Ana Casiano MD [address] [place] [address] PCP - General Family Medicine 01/12/18 Dwayne Klein MD [address] [place] [address] Cardiology 04/02/23 Door Slinger Relationship Specialty Start Date End Date Ana Casiano MD [address] [facility] [facility] [place] [address] PCP - General Family Medicine 01/12/18 Dwayne Klein MD [address] [place] [address] Cardiology 04/02/23 Door Slinger Relationship Specialty Start Date End Date Ana Casiano MD [address] [place], [place] [address] PCP - General Family Medicine 01/12/18 Dwayne Klein MD [address] [email or web address] [address] [place], [place] [address] Cardiology 04/02/23 Door Slinger Relationship Specialty Start Date End Date Ana Casiano MD [address] [place], [place] [address] PCP - General Family Medicine 01/12/18 Dwayne Klein MD [address], [place] [address] Cardiology 04/02/23 Door Slinger Relationship Specialty Start Date End Date Ana Casiano MD [address] [place], [place] [address] PCP - General Family Medicine 01/12/18 Dwayne Klein MD [address], [place] [id number] Cardiology 04/02/23 Team Status: Inactive Member Role [...] 2024 End: May 23, 2024 Dr. Ana Casiaon MD Referring Provider Active St art: May [...] August 19, 2024 End: August 19, 2024 Team Status: Active Member Role/Relationship Status Dates Dr. Ana Casiano MD Primary Care Provider Active Team Status: Inactive Member Role/Relationship Status Dates Dr. Ana Casiano MD Primary Care Provider Active Start: September 03, 2024 End: September 03, 2024 Dr. Latonia Petersen DO Emergency Provider Active Start: September 03, 2024 End: September 03, 2024 Team Status: Inactive Member Role/Relationship Status Dates Dr. Ana Casiano MD Primary Care Provider Active Start: September 03, 2024 End: September 03, 2024 Dr. Latonia Petersen DO Attending Provider Active Start: September 03, 2024 End: September 03, 2024 Dr. Latonia Petersen DO Emergency Provider Active Start: September 03, 2024 End: September 03, 2024 Team Status: Inactive Member Role/Relationship Status Dates Dr. Ana Casiano MD Primary Care Provider Active Start: September 05, 2024 End: September 05, 2024 Dr. Ana Casiano MD Attending Provider Active St art: September 05, 2024 End: September 05, 2024 Dr. Ana Casiano MD Referring Provider Active St art: September 05, 2024 End: September 05, 2024 Team Status: Inactive Member Role/Relationship Status [...] August 19, 2024 End: August 19, 2024 Team Status: Inactive Member Role/Relationship Status Dates Dr. Ana Casiano MD Primary Care Provider Active Start: September 03, 2024 End: September 03, 2024 Dr. aLtonia Petersen DO Attending Provider Active Start: September 03, 2024 End: September 03, 2024 Dr. Latonia Petersen DO Emergency Provider Active Start: September 03, 2024 End: September 03, 2024 Team Status: Inactive Member Role/Relationship Status Dates Dr. Ana Casiano MD Primary Care Provider Active Start: September 05, 2024 End: September 05, 2024 Dr. Ana Casiano MD Attending Provider Active St art: September 05, 2024 End: September 05, 2024 Dr. Ana Casiano MD Referring Provider Active St art: September 05, 2024 End: September 05, 2024 Team Status: Inactive Member Role/Relationship Status Dates Dr. Ana Casiano MD Primary Care Provider Active Start: September 29, 2024 End: September 29, 2024 Dr. Ana Casiano MD Referring Provider Active St art: September 29, 2024 End: September 29, 2024 Dr. Dwayne Klein MD Attending Provider Active S tart: September 29, 2024 End: September 29, 2024 Team Status: Active Member Role/Relationship Status Dates Dr. Ana Casiano MD Primary Care Provider Active Start: October 06, 2024 Dr. Ana Casiano MD Referring Provider Active St art: October 06, 2024 DEEP Alves Attending Provider Active Sta rt: October 06, 2024 Team Status: Inactive Member Role/Relationship Status Dates Dr. Ana Casiano MD Primary Care Provider Active Start: October 06, 2024 End: October 06, 2024 Dr. Dwayne Klein MD Attending Provider Active S tart: October 06, 2024 End: October 06, 2024 Team Status: Inactive Member Role/Relationship Status Dates Dr. Ana Casiano MD Primary Care Provider Active Start: October 06, 2024 End: October 06, 2024 Dr. Ana Casiano MD Referring Provider Active St art: October 06, 2024 End: October 06, 2024 DEEP Alves Attending Provider Active Sta rt: October 06, 2024 End: October 06, 2024 Door Slinger Relationship Specialty Start Date End Date Ana Casiano MD [address] [place] [address] PCP - General Family Medicine 01/12/18 Dwayne Klein MD [address] [place] [id number] Cardiology 04/02/23 Source Comments (unrecognize d section and content) In the event this informatio n is protected by the Federal Confidentiality of Alcohol and Drug Abuse Patient Records regulations: The Federal rules restrict any use of the information to criminally investigate or prosecute any alcohol or drug abuse patient.[facility] the event this information is protected by the Federal Confidentiality of Alcohol and Drug Abuse Patient Records regulations: The Federal rules restrict any use of the information to criminally investigate or prosecute any alcohol or drug abuse patient.[facility]In the event this information is protected by the Federal Confidentiality of Alcohol and Drug Abuse Patient Records regulations: The Federal rules restrict any use of the information to criminally investigate or prosecute any alcohol or drug abuse patient.[facility]In the event this information is protected by the Federal Confidentiality of Alcohol and Drug Abuse Patient Records regulations: The Federal rules restrict any use of the information to criminally investigate or prosecute any alcohol or drug abuse patient.[facility]In the event this information is protected by the Federal Confidentiality of Alcohol and Drug Abuse Patient Records regulations: The Federal rules restrict any use of the information to criminally investigate or prosecute any alcohol or drug abuse patient.[facility] HospitalIn the event this information is protected by the Federal Confidentiality of Alcohol and Drug Abuse Patient Records regulations: The Federal rules restrict any use of the information to criminally investigate or prosecute any alcohol or drug abuse patient.[facility] HospitalIn the event this information is protected by the Federal Confidentiality of Alcohol and Drug Abuse Patient Records regulations: The Federal rules restrict any use of the information to criminally investigate or prosecute any alcohol or drug abuse patient.[facility]In the event this information is protected by the Federal Confidentiality of Alcohol and Drug Abuse Patient Records regulations: The Federal rules restrict any use of the information to criminally investigate or prosecute any alcohol or drug abuse patient.[facility]In the event this information is protected by the Federal Confidentiality of Alcohol and Drug Abuse Patient Records regulations: The Federal rules restrict any use of the information to criminally investigate or prosecute any alcohol or drug abuse patient.[facility] HospitalIn the event this information is protected by the Federal Confidentiality of Alcohol and Drug Abuse Patient Records regulations: The Federal rules restrict any use of the information to criminally investigate or prosecute any alcohol or drug abuse patient.[facility] HospitalIn the event this information is protected by the Federal Confidentiality of Alcohol and Drug Abuse Patient Records regulations: The Federal rules restrict any use of the information to criminally investigate or prosecute any alcohol or drug abuse patient.[facility] HospitalIn the event this information is protected by the Federal Confidentiality of Alcohol and Drug Abuse Patient Records regulations: The Federal rules restrict any use of the information to criminally investigate or prosecute any alcohol or drug abuse patient.[facility] HospitalIn the event this information is protected by the Federal Confidentiality of Alcohol and Drug Abuse Patient Records regulations: The Federal rules restrict any use of the information to criminally investigate or prosecute any alcohol or drug abuse patient.[facility] HospitalIn the event this information is protected by the Federal Confidentiality of Alcohol and Drug Abuse Patient Records regulations: The Federal rules restrict any use of the information to criminally investigate or prosecute any alcohol or drug abuse patient.[facility] HospitalIn the event this information is protected by the Federal Confidentiality of Alcohol and Drug Abuse Patient Records regulations: The Federal rules restrict any use of the information to criminally investigate or prosecute any alcohol or drug abuse patient.[facility] HospitalIn the event this information is protected by the Federal Confidentiality of Alcohol and Drug Abuse Patient Records regulations: The Federal rules restrict any use of the information to criminally investigate or prosecute any alcohol or drug abuse patient.[facility] HospitalIn the event this information is protected by the Federal Confidentiality of Alcohol and Drug Abuse Patient Records regulations: The Federal rules restrict any use of the information to criminally investigate or prosecute any alcohol or drug abuse patient.[facility] HospitalIn the event this information is protected by the Federal Confidentiality of Alcohol and Drug Abuse Patient Records regulations: The Federal rules restrict any use of the information to criminally investigate or prosecute any alcohol or drug abuse patient.[facility] HospitalIn the event this information is protected by the Federal Confidentiality of Alcohol and Drug Abuse Patient Records regulations: The Federal rules restrict any use of the information to criminally investigate or prosecute any alcohol or drug abuse patient.[facility] HospitalIn the event this information is protected by the Federal Confidentiality of Alcohol and Drug Abuse Patient Records regulations: The Federal rules restrict any use of the information to criminally investigate or prosecute any alcohol or drug abuse patient.[facility] HospitalIn the event this information is protected by the Federal Confidentiality of Alcohol and Drug Abuse Patient Records regulations: The Federal rules restrict any use of the information to criminally investigate or prosecute any alcohol or drug abuse patient.[facility] HospitalIn the event this information is protected by the Federal Confidentiality of Alcohol and Drug Abuse Patient Records regulations: The Federal rules restrict any use of the information to criminally investigate or prosecute any alcohol or drug abuse patient.[facility] HospitalIn the event this information is protected by the Federal Confidentiality of Alcohol and Drug Abuse Patient Records regulations: The Federal rules restrict any use of the information to criminally investigate or prosecute any alcohol or drug abuse patient.[facility] HospitalIn the event this information is protected by the Federal Confidentiality of Alcohol and Drug Abuse Patient Records regulations: The Federal rules restrict any use of the information to criminally investigate or prosecute any alcohol or drug abuse patient.[facility] HospitalIn the event this information is protected by the Federal Confidentiality of Alcohol and Drug Abuse Patient Records regulations: The Federal rules restrict any use of the information to criminally investigate or prosecute any alcohol or drug abuse patient.[facility]In the event this information is protected by the Federal Confidentiality of Alcohol and Drug Abuse Patient Records regulations: The Federal rules restrict any use of the information to criminally investigate or prosecute any alcohol or drug abuse patient.[facility]In the event this information is protected by the Federal Confidentiality of Alcohol and Drug Abuse Patient Records regulations: The Federal rules restrict any use of the information to criminally investigate or prosecute any alcohol or drug abuse patient.[facility]In the event this information is protected by the Federal Confidentiality of Alcohol and Drug Abuse Patient Records regulations: The Federal rules restrict any use of the information to criminally investigate or prosecute any alcohol or drug abuse patient.[facility]In the event this information is protected by the Federal Confidentiality of Alcohol and Drug Abuse Patient Records regulations: The Federal rules restrict any use of the information to criminally investigate or prosecute any alcohol or drug abuse patient.[facility] HospitalIn the event this information is protected by the Federal Confidentiality of Alcohol and Drug Abuse Patient Records regulations: The Federal rules restrict any use of the information to criminally investigate or prosecute any alcohol or drug abuse patient.[facility] HospitalIn the event this information is protected by the Federal Confidentiality of Alcohol and Drug Abuse Patient Records regulations: The Federal rules restrict any use of the information to criminally investigate or prosecute any alcohol or drug abuse patient.[facility] HospitalIn the event this information is protected by the Federal Confidentiality of Alcohol and Drug Abuse Patient Records regulations: The Federal rules restrict any use of the information to criminally investigate or prosecute any alcohol or drug abuse patient.[facility] HospitalIn the event this information is protected by the Federal Confidentiality of Alcohol and Drug Abuse Patient Records regulations: The Federal rules restrict any use of the information to criminally investigate or prosecute any alcohol or drug abuse patient.[facility] HospitalIn the event this information is protected by the Federal Confidentiality of Alcohol and Drug Abuse Patient Records regulations: The Federal rules restrict any use of the information to criminally investigate or prosecute any alcohol or drug abuse patient.[facility] HospitalIn the event this information is protected by the Federal Confidentiality of Alcohol and Drug Abuse Patient Records regulations: The Federal rules restrict any use of the information to criminally investigate or prosecute any alcohol or drug abuse patient.[facility] HospitalIn the event this information is protected by the Federal Confidentiality of Alcohol and Drug Abuse Patient Records regulations: The Federal rules restrict any use of the information to criminally investigate or prosecute any alcohol or drug abuse patient.[facility] HospitalIn the event this information is protected by the Federal Confidentiality of Alcohol and Drug Abuse Patient Records regulations: The Federal rules restrict any use of the information to criminally investigate or prosecute any alcohol or drug abuse patient.[facility] HospitalIn the event this information is protected by the Federal Confidentiality of Alcohol and Drug Abuse Patient Records regulations: The Federal rules restrict any use of the information to criminally investigate or prosecute any alcohol or drug abuse patient.[facility] (unrecognized sect ion and content) No Status Records FoundNo Status Records FoundNo Status Records Found INFORMATION SOURCE (unrecogn ized section and content) DATE CREATED AUTHOR 11/28/2023 [facility] DATE CREATED AUTHOR AUTHOR'S ORGANIZ ATION 10/23/2024 [facility] DATE CREATED AUTHOR AUTHOR'S ORGANIZ ATION 10/29/2024 [facility] FOR RECORDS PERTAINING TO PATIENTS WHO ARE [...] BE BASED ON THE PRIMARY CLINICAL RECORDS. [facility] [employer] provides no warranty or guarantee of the accuracy or completeness of information in this document.
--- NOTE | 2024-10-31 11:04 | CL.D_ITS ---
Patient Name: MARIA LUZ COHEN Study Date: 10/31/2024 Performing: Dwayne Klein MD Ht: 68 inches 172.72 cm : 1950 Wt: 203 lbs 92.08 kg Age: 74 Gender: male BSA: 2.06 PROCEDURE(S) PERFORMED [id number])LHC/COR/LV CLINICAL PROFILE AND INDICATIONS Indications: Suspected CAD Heart Failure: None Stress/Imaging Stress/Image Study Performed: No CAD Presentations: Stable angina. CONCLUSIONS Coronary disease noted in a small distal LAD as well as a small posterior descending artery. Preserved ejection fraction is noted. RECOMMENDATIONS Will recommend maximal medical therapy. DESCRIPTION OF PROCEDURE The patient arrived to the procedure lab. The risks and benefits of the procedure as well as a full description of our services here and current unavailability of surgical backup were fully explained to the patient and/or their significant other prior to the catheterization. The Timeout was completed, verifying the correct patient and procedure. The patient's procedural site was prepped and draped in the usual fashion. Local anesthetic was given subcutaneously to right radial region with Lidocaine 2%. Using a modified Seldinger technique, arterial access was obtained via the right radial artery, a 6Fr sheath was inserted. Left Coronary Artery selective angiography was performed in multiple views using a 5 Fr. 4.0 Oakwood catheter. Right Coronary Artery selective angiography was then performed in multiple views using a 5 Fr. 4.0 Oakwood catheter. Left Ventriculography was performed in CONKLIN projection using a 5 Fr. Pigtail catheter. LV to AO pullback pressures were then recorded.The arterial sheath was pulled and a TR Band was applied for hemostasis w/ 12ml air CORONARY ANGIOGRAPHY DOMINANCE: Right Dominant LEFT HEART ASSESSMENT Left Ventricular Ejection Fraction: by LV Gram 60 % Normal LV wall motion Normal Left Ventricular systolic function LEFT MAIN: Angiographically normal LEFT ANTERIOR DESCENDING ARTERY: Small to medium size vessel with a mid to distal 70% stenosis noted first obtuse marginal branch with no significant stenosis present CIRCUMFLEX ARTERY: Mild luminal irregularities less than 30% RIGHT CORONARY ARTERY: Large dominant vessel with calcification in mid segment 30% stenosis and a small posterior descending artery with sequential 80% stenosis, a large posterolateral vessel and another large posterolateral vessel with no significant disease. An aberrant circumflex artery is also noted with no significant disease. COMPLICATIONS No Complications PROCEDURE MEDICATIONS Versed 1 mg IV Fentanyl 50 mcg IV Oxygen: 2 L/min via nasal cannula Heparin given IA 10/31/2024 09:03:34 Verapamil 2.5mg, Ntg 100mcgs, 3000 units of Heparin given IA 10/31/2024 09:03:34 SUMMARY OF HEMODYNAMIC DATA Time AIR REST ECG 07:53:21 Art 123/64 (84) 09:20:45 AO 119/70 (90) SA 09:27:36 LV 110/10, 09:36:00 LV 113/12, 09:36:09 LV 107/12, 09:36:35 LV 111/12, 09:36:44 LVp 109/12, 09:36:51 AOp 0/-4 (31) 09:36:58 Signed By Dwayne Klein MD On 10/31/2024 11:04:11 Dwayne Klein MD
== END 2024-10-31 11:30 | disposition home or self-care (01) ==
PROVIDERS: PCP Family Medicine; Referring Provider Internal Medicine Cardiovascular Disease; Visit Provider Internal Medicine Cardiovascular Disease
DX: I25.10 Atherosclerotic heart disease of native coronary artery without angina pectoris (principal); I10 Essential (primary) hypertension; E78.2 Mixed hyperlipidemia; Z79.899 Other long term (current) drug therapy; Z79.82 Long term (current) use of aspirin; K21.9 Gastro-esophageal reflux disease without esophagitis; R06.09 Other forms of dyspnea; R07.9 Chest pain, unspecified; R00.0 Tachycardia, unspecified; R93.1 Abnormal findings on diagnostic imaging of heart and coronary circulation
CPT/HCPCS: 93458; 99152; 99153; Q9967; C1769; C1894

== ENCOUNTER 2024-11-08 12:14 | Day surgery (SDC) | payer MEDICARE, OTHER, SELFPAY ==
--- OUTSIDE RECORDS SUMMARY | 2024-10-17 10:09 | XMS RPT_ITS ---
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 Name Role Phone GATITO SULLIVAN Attending Unavailable ANA CASIANO Primary Care Unavailable GATITO SULLIVAN Attending Unavailable ANA ACSIANO Primary Care Unavailable RODERICK KOVACS Attending Unavailable LILIANE, ANA Harpreet Primary Care Unavailable CONNIE AMBROSE Attending Unavailable LILIANE ANA A Primary Care Unavailable DOMINIC RAM Attending Unavailable CONNIE AMBROSE Referring Unavailable LILIANE ANA A Primary Care Unavailable CONNIE AMBROSE Attending Unavailable LILIANE ANA A Referring Unavailable CASIANO, ANA A Primary Care Unavailable PROBLEMS DATE TYPE CONDITION / CODE ATTENDING STATUS [facility] 10/17/2024 Active Erectile dysfunc tion of organic origin / N52.9(ICD-10) RODERICK KOVACS Active [facility] 10/17/2024 Active BPH with urinary obstruction / N40.1(ICD-10) RODERICK KOVACS Active [facility] 10/17/2024 Active BPH with urinary obstruction / N13.8(ICD-10) RODERICK KOVACS Active [facility] 10/17/2024 Active Essential (prima ry) hypertension / I10(ICD-10) RODERICK KOVACS Active [facility] 04/08/2024 Active Adenomatous rect al polyp / D12.8(ICD-10) CONNIE AMBROSE Active [facility] 04/01/2024 Active Encounter for sc reening colonoscopy / Z12.11(ICD-10) DOMINIC RAM Active [facility] 04/01/2024 Active Positive colorec dari cancer screening using Cologuard test / R19.5(ICD-10) DOMINIC RAM Active [facility] 04/01/2024 Active Diarrhea, unspec ified type / R19.7(ICD-10) DOMINIC RAM Active [facility] 11/26/2023 Active Status post repa ir of paraesophageal diaphragmatic hernia / Z98.890(ICD-10) GATITO SULLIVAN Active [facility] 11/26/2023 Active Status post repa ir of paraesophageal diaphragmatic hernia / Z87.19(ICD-10) [facility] Active [facility] 11/26/2023 Active STEPHANY treated with BiPAP / G47.33(ICD-10) [facility] 11/26/2023 Active 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 Author Type: Physician Type: Progress Notes Filed: 10/17/2024 11:07 Note Text: Urology Note Patient info Maria Luz Santana II 1950 [id number] CC: The patient is a 74-year-old male with hypertension, presenting for evaluation of erectile dysfunction and urinary hesitancy. HPI: The patient is a 74-year-old male with a history of HTN, presenting with erectile dysfunction and urinary difficulties. The patient reports difficulty achieving and maintaining erections sufficient for penetration, noting partial erections that are not quite there. He has not engaged in sexual activity for approximately 3 years due to his 's emotional and psychological issues related to intimacy, which she is currently addressing with a counselor. He has tried Viagra once, prescribed by his PCP, but experienced palpitations and has not used it since. He denies any known testosterone level checks. In addition to erectile dysfunction, the patient reports urinary difficulties. He is currently taking lisinopril and Cardizem for HTN. He resides in [place] and sought a new urologist due to dissatisfaction with his previous one. Patient Entered Questionnaires PROMIS Global Health 04/19/2023 10/15/2024 PROMIS Global Health Scale Physical Health Percentile 41 31 Mental Health Percentile 53 43 Patient-reported Percentiles provide an indication of how the patient's score ranks in relation to the general population. Higher percentile rankings indicate better function/quality of life. 50th percentile is the average of the general population and indicates half of respondents had a worse score. ROS: Genitourinary: (+) erectile dysfunction, (+) urinary difficulty PAST MEDICAL HISTORY Diagnosis Date Allergic rhinitis [...] apnea wears bipap SVT (supraventricular tachycardia) (HCC) Tubular adenoma of rectum 04/01/2024 PAST SURGICAL HISTORY Procedure Laterality Date 48 HOUR PH STUDY 12/22/2022 Dr. Gill COLONOSCOPY 01/18/2015 COLONOSCOPY 04/01/2024 EGD 01/18/2015 EGD WITH BIOPSY(S) 12/22/2022 medium [...] Stroke Mother Coronary Artery Disease Father 60 CO x 3 Blood Disease Father Heart Father Lymphoma Father Diabetes Maternal Grandmother SOCIAL HISTORY[1] Current Outpatient Medications Medication Sig Dispense Refill dilTIAZem (CARDIZEM) 120 mg tablet Take 1 tablet by mouth every 12 hours. timolol maleate (TIMOPTIC) 0.5 % ophthalmic solution Use 1 drop in both eyes two times a day. Tadalafil (CIALIS) 5 mg tablet Take 1 tablet by mouth once daily. 30 tablet 11 indapamide (LOZOL) 1.25 mg tablet Take 1 tablet by mouth every afternoon. cranberry fruit (CRANBERRY) 450 mg tab once daily. Magnesium 200 mg tab Take by mouth once daily. lisinopril (ZESTRIL) 20 mg tablet Take 1 tablet by mouth every 12 hours. loratadine (CLARITIN) 10 mg tablet Take 10 mg by mouth as needed for cold/allergy symptoms. No current facility-administered medications for this visit. SENSITIVE EXAMINATION CONSENT: The sensitive examination was discussed with the Patient or Patient's Authorized Tailer In. As applicable, any other physician, advance practice provider, medical student, or other health professional student that will be observing or involved in the sensitive examination for educational or training purposes was discussed with the Patient or Authorized Tailer In. The Patient or Authorized Tailer In has agreed to proceed with the sensitive examination. (Sensitive examination includes inspection and/or palpation of the breasts, pelvis, prostate and anorectal regions) Exam: General: Well-appearing, no acute distress Skin: Normal HEENT: Pupils equal, round. Oral cavity, oropharynx clear Neck: Supple, no mass Breast: Deferred Respiratory: Clear to auscultation, bilaterally Cardiovascular: Regular rate and rhythm, no murmurs, rubs, or gallops Abdomen: Soft, non-tender, non-distended, no masses palpable, no hepatosplenomegaly, normal bowel sounds Genitourinary: Deferred MSK: Back is non-tender Extremities: No clubbing, cyanosis, or edema Results: A/P: 1. 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 BPH with urinary obstruction (N40.1) Patient reports difficulty achieving erections sufficient for penetration and has a MAURICIO score of 6. He experienced palpitations with prior Viagra use. He also reports urinary symptoms consistent with BPH. - Start daily low-dose Cialis to address both erectile dysfunction and urinary symptoms. - Ordered morning serum testosterone level to be drawn before 11:00 AM at the [place] lab. - Discussed alternative treatment options if Cialis is ineffective or not tolerated: vacuum erection device, intracavernosal injections, and penile implant surgery. - Provided education on the risks and benefits of each option, including infection risk (2%) and device longevity (average 20 years) for penile implant. - Provided reading material on penile implant surgery and discussed potential changes in Medicare prior authorization process in [place] starting February 09. - Follow-up with DEEP Voss in [place] in about 1 month; instructed patient to contact sooner if interested in penile implant surgery. 3. Essential (primary) hypertension (I10) Patient is currently managed on lisinopril and Cardizem. - Continue current antihypertensive regimen. Discussed IPP and r/b/a at length. [employer] brochure provided. Recording using WHILL software for draft documentation of the visit was discussed with the patient/authorized professional healthcare representative; all questions welcomed and answered. Patient/authorized professional healthcare representative agreed to proceed Visit complexity inherent to evaluation and management associated with medical care services that serve as the continuing focal point for all needed health care services and/or with medical care services that are part of ongoing care related to a patient?s single, serious condition or a complex condition. Consultation requested by Dr. Ana Casiano MD for an opinion regarding Erectile dysfunction of organic origin [N52.9]. My final recommendations will be communicated back to the requesting physician by way of shared medical record or letter via US mail. Roderick Kovacs MD Director, [facility], [facility] [place] [1] Social History Tobacco Use Smoking status: Never Smokeless tobacco: Never Vaping Use Vaping status: Never Used Substance Use Topics Alcohol use: Yes Comment: [id number] times monthly Drug use: No CNOV Observed: 10/17/2024 10:45 AM Status: COMPLETED Source: [facility] Office Visit (UROLMN) MARIA LUZ SANTANA II ([id number]) 1950 M Date Time Provider Department 10/17/24 10:45 AM RODERICK KOVACS During your visit today, we recorded the following information about you: Pulse Blood pressure Weight 56/minute 105/68 92.8 kg Roderick Kovacs MD 10/17/2024 11:04 AM Signed We discussed your concerns about erectile dysfunction and trouble urinating: - I prescribed Cialis for you to take once daily at a low dose. This may help with both your erections and urination. The prescription has been sent to your [facility] pharmacy. Take it like a daily vitamin. - If you plan to attempt sexual activity, you can take Cialis 1-2 hours beforehand to see if it helps you achieve an erection. You will need to stimulate yourself to become aroused for it to work. - If Cialis does not provide satisfactory results or if you experience side effects, please let me know. We can explore other options, including: - A vacuum pump, which uses suction to help achieve an erection. This option has a satisfaction rate of about 30%. - Penile injections, which are administered 10 minutes before sexual activity. These have a satisfaction rate of about 60%, but many patients discontinue use over time due to the need for injections. - A penile implant, which is a surgical option that provides a natural-looking erection. This is a 30-minute outpatient procedure covered by Medicare. If you are interested in this option, please let me know soon, as there may be changes to Medicare approval processes starting February 09. We could schedule the procedure before the end of the year if needed. We discussed testing your testosterone levels: - I ordered a morning blood test to check your testosterone levels. Please go to the [facility] lab before 11:00 AM tomorrow. Fasting is not required. Follow-up: - I will schedule a follow-up appointment for you with my physician blood and plasma laboratory assistant, Tristen Voss, in [place]. He specializes in erectile dysfunction and can assist with further management if needed. - If you decide you are interested in the penile implant or have any concerns after trying Cialis, please contact me directly. Please complete the blood work as soon as possible and let us know how the Cialis works for you. Roderick Kovacs MD 10/17/2024 11:07 AM Signed Urology Note Patient info Maria Luz Santana II 1950 [id number] CC: The patient is a 74-year-old male with hypertension, presenting for evaluation of erectile dysfunction and urinary hesitancy. HPI: The patient is a 74-year-old male with a history of HTN, presenting with erectile dysfunction and urinary difficulties. The patient reports difficulty achieving and maintaining erections sufficient for penetration, noting partial erections that are not quite there. He has not engaged in sexual activity for approximately 3 years due to his 's emotional and psychological issues related to intimacy, which she is currently addressing with a counselor. He has tried Viagra once, prescribed by his PCP, but experienced palpitations and has not used it since. He denies any known testosterone level checks. In addition to erectile dysfunction, the patient reports urinary difficulties. He is currently taking lisinopril and Cardizem for HTN. He resides in [place] and sought a new urologist due to dissatisfaction with his previous one. Patient Entered Questionnaires PROMIS Global Health 04/19/2023 10/15/2024 PROMIS Global Health Scale Physical Health Percentile 41 31 Mental Health Percentile 53 43 Patient-reported Percentiles provide an indication of how the patient's score ranks in relation to the general population. Higher percentile rankings indicate better function/quality of life. 50th percentile is the average of the general population and indicates half of respondents had a worse score. ROS: Genitourinary: (+) erectile dysfunction, (+) urinary difficulty PAST MEDICAL HISTORY Diagnosis Date Allergic rhinitis [...] apnea wears bipap SVT (supraventricular tachycardia) (HCC) Tubular adenoma of rectum 04/01/2024 PAST SURGICAL HISTORY Procedure Laterality Date 48 HOUR PH STUDY 12/22/2022 Dr. Gill COLONOSCOPY 01/18/2015 COLONOSCOPY 04/01/2024 EGD 01/18/2015 EGD WITH BIOPSY(S) 12/22/2022 medium [...] Stroke Mother Coronary Artery Disease Father 60 CO x 3 Blood Disease Father Heart Father Lymphoma Father Diabetes Maternal Grandmother SOCIAL HISTORY[1] Current Outpatient Medications Medication Sig Dispense Refill dilTIAZem (CARDIZEM) 120 mg tablet Take 1 tablet by mouth every 12 hours. timolol maleate (TIMOPTIC) 0.5 % ophthalmic solution Use 1 drop in both eyes two times a day. Tadalafil (CIALIS) 5 mg tablet Take 1 tablet by mouth once daily. 30 tablet 11 indapamide (LOZOL) 1.25 mg tablet Take 1 tablet by mouth every afternoon. cranberry fruit (CRANBERRY) 450 mg tab once daily. Magnesium 200 mg tab Take by mouth once daily. lisinopril (ZESTRIL) 20 mg tablet Take 1 tablet by mouth every 12 hours. loratadine (CLARITIN) 10 mg tablet Take 10 mg by mouth as needed for cold/allergy symptoms. No current facility-administered medications for this visit. SENSITIVE EXAMINATION CONSENT: The sensitive examination was discussed with the Patient or Patient's Authorized Tailer In. As applicable, any other physician, advance practice provider, medical student, or other health professional student that will be observing or involved in the sensitive examination for educational or training purposes was discussed with the Patient or Authorized Tailer In. The Patient or Authorized Tailer In has agreed to proceed with the sensitive examination. (Sensitive examination includes inspection and/or palpation of the breasts, pelvis, prostate and anorectal regions) Exam: General: Well-appearing, no acute distress Skin: Normal HEENT: Pupils equal, round. Oral cavity, oropharynx clear Neck: Supple, no mass Breast: Deferred Respiratory: Clear to auscultation, bilaterally Cardiovascular: Regular rate and rhythm, no murmurs, rubs, or gallops Abdomen: Soft, non-tender, non-distended, no masses palpable, no hepatosplenomegaly, normal bowel sounds Genitourinary: Deferred MSK: Back is non-tender Extremities: No clubbing, cyanosis, or edema Results: A/P: 1. 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 BPH with urinary obstruction (N40.1) Patient reports difficulty achieving erections sufficient for penetration and has a MAURICIO score of 6. He experienced palpitations with prior Viagra use. He also reports urinary symptoms consistent with BPH. - Start daily low-dose Cialis to address both erectile dysfunction and urinary symptoms. - Ordered morning serum testosterone level to be drawn before 11:00 AM at the [place] lab. - Discussed alternative treatment options if Cialis is ineffective or not tolerated: vacuum erection device, intracavernosal injections, and penile implant surgery. - Provided education on the risks and benefits of each option, including infection risk (2%) and device longevity (average 20 years) for penile implant. - Provided reading material on penile implant surgery and discussed potential changes in Medicare prior authorization process in [place] starting February 09. - Follow-up with DEEP Voss in [place] in about 1 month; instructed patient to contact sooner if interested in penile implant surgery. 3. Essential (primary) hypertension (I10) Patient is currently managed on lisinopril and Cardizem. - Continue current antihypertensive regimen. Discussed IPP and r/b/a at length. [employer] brochure provided. Recording using WHILL software for draft documentation of the visit was discussed with the patient/authorized professional healthcare representative; all questions welcomed and answered. Patient/authorized professional healthcare representative agreed to proceed Visit complexity inherent to evaluation and management associated with medical care services that serve as the continuing focal point for all needed health care services and/or with medical care services that are part of ongoing care related to a patient?s single, serious condition or a complex condition. Consultation requested by Dr. Ana Casiano MD for an opinion regarding Erectile dysfunction of organic origin [N52.9]. My final recommendations will be communicated back to the requesting physician by way of shared medical record or letter via [place] mail. Roderick Kovacs MD Director, [facility], [facility] [place] [1] Social History Tobacco Use Smoking status: Never Smokeless tobacco: Never Vaping Use Vaping status: Never Used Substance Use Topics Alcohol use: Yes Comment: [id number]-0-3 times monthly Drug use: No Allergies As of Date: 10/17/2024 Noted Allergy Reaction CORTICOSTEROIDS (GLUCOCORTICOIDS) 07/08/2018 14 [...] (FEBUXOSTAT) 03/13/2023 2 - Rash Date Reviewed: 10/17/2024 Reviewed by: Roderick Kovacs MD - Fully Assessed Reason for Visit: Consult [173] Primary Visit Diagnosis:Erectile dysfunction of organic origin [N52.9] Other Visit Diagnoses:BPH with urinary obstruction [N40.1, N13.8] Essential (primary) hypertension [I10] Order(s):BIOAVAILABLE TESTOSTERONE, ADULT MALE [SQBTESTM] Order #: [id number] FUTURE LUTEINIZING HORMONE [SQLH] Order #: [id number] FUTURE ESTRADIOL-17B BLD [SQE2] Order #: [id number] FUTURE PROLACTIN [SQPROL] Order #: [id number] FUTURE Tadalafil (CIALIS) 5 mg tabletTake 1 tablet by mouth once daily.Disp: 30 tabletRfl: 11 Prescriptions as of 10/17/2024 - dilTIAZem (CARDIZEM) 120 mg tablet Take 1 tablet by mouth every 12 hours. - timolol maleate (TIMOPTIC) 0.5 % ophthalmic solution Use 1 drop in both eyes two times a day. - Tadalafil (CIALIS) 5 mg tablet Take 1 tablet by mouth once daily. - indapamide (LOZOL) 1.25 mg tablet Take 1 tablet by mouth every afternoon. - cranberry fruit (CRANBERRY) 450 mg tab once daily. - Magnesium 200 mg tab Take by mouth once daily. - lisinopril (ZESTRIL) 20 mg tablet Take 1 tablet by mouth every 12 hours. - loratadine (CLARITIN) 10 mg tablet Take 10 mg by mouth as needed for cold/allergy symptoms. 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.9] 05/05/2023 Tachyarrhythmia [R00.0] 05/05/2023 Migraine with aura [G43.109] 05/05/2023 History of kidney cancer [Z85.528] 05/05/2023 STEPHANY (obstructive sleep apnea) [G47.33] 05/05/2023 Primary hypertension [I10] 05/05/2023 Other specified anemias [D64.89] 05/05/2023 Thrush of mouth and esophagus (HCC) (HCC) [B37*09/24/2023 Diarrhea [R19.7] 04/01/2024 Positive colorectal cancer screening using [place]*04/01/2024 Other instructions from your clinician: We discussed your concerns about erectile dysfunction and trouble urinating: - I prescribed Cialis for you to take once daily at a low dose. This may help with both your erections and urination. The prescription has been sent to your [facility] pharmacy. Take it like a daily vitamin. - If you plan to attempt sexual activity, you can take Cialis 1-2 hours beforehand to see if it helps you achieve an erection. You will need to stimulate yourself to become aroused for it to work. - If Cialis does not provide satisfactory results or if you experience side effects, please let me know. We can explore other options, including: - A vacuum pump, which uses suction to help achieve an erection. This option has a satisfaction rate of about 30%. - Penile injections, which are administered 10 minutes before sexual activity. These have a satisfaction rate of about 60%, but many patients discontinue use over time due to the need for injections. - A penile implant, which is a surgical option that provides a natural-looking erection. This is a 30-minute outpatient procedure covered by Medicare. If you are interested in this option, please let me know soon, as there may be changes to Medicare approval processes starting February 09. We could schedule the procedure before the end of the year if needed. We discussed testing your testosterone levels: - I ordered a morning blood test to check your testosterone levels. Please go to the [facility] [place] lab before 11:00 AM tomorrow. Fasting is not required. Follow-up: - I will schedule a follow-up appointment for you with my physician blood and plasma laboratory assistant, Tristen Voss, in [place]. He specializes in erectile dysfunction and can assist with further management if needed. - If you decide you are interested in the penile implant or have any concerns after trying Cialis, please contact me directly. Please complete the blood work as soon as possible and let us know how the Cialis works for you. Prescriptions ordered this encounter Disp Refills Start End TADALAFIL 20 MG TABLET 6 ta* 10/17/2024 10/17/2024 Route: PO Sig: Take 1 tablet by mouth once daily as needed. Take 1-2 hours before sexual activity. TADALAFIL 5 MG TABLET 30 t* 10/17/2024 10/17/2025 Route: PO Sig: Take 1 tablet by mouth once daily. Medications Discontinued During This Encounter Prescriptions - dilTIAZem (CARDIZEM) 60 mg tablet (Discontinued) Reported on 10/17/2024 - Tadalafil (CIALIS) 20 mg tablet (Discontinued) Take 1 tablet by mouth once daily as needed. Take 1-2 hours before sexual activity. Encounter Status:Closed by RODERICK KOVACS on 10/17/24 PROGRESS Observed: 04/08/2024 10:30 AM Status: COMPLETED Source: [facility] HNO ID: [id number] Author: CONNIE AMBROSE APRN.[facility] Service: ? Author Type: Nurse Practitioner Type: Progress Notes Filed: 04/08/2024 10:32 Note Text: GENERAL SURGERY-ENDOSCOPY FOLLOW UP VIRTUAL VISIT I have communicated my name and active licensure. The patient's identity and physical location were verified at the time of this visit. Either the patient or their legal professional healthcare representative has been informed of the risks and benefits of -- and alternatives to -- treatment through a remote evaluation and consents to proceed with the evaluation remotely. Maria Luz Santana II 1950 [id number] REFERRING PHYSICIAN: No referring provider defined for this encounter. Maria Luz Santana II is a patient I am following for positive cologuard. Dr. Ram performed lower endoscopy on 04/01/24. The patient was found to have Impression: - One small (4-6 mm) polyp in the rectum, removed with a cold snare. Resected and retrieved. Clip was placed. 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 - Non-bleeding internal hemorrhoids. - The examined [...] as needed for worsening/no improvement. Connie Ambrose APRN.[employer] WORK[employer] APPRENTICE Risk of morbidity, mortality and/or complications of treatment plan: low I spent a total of 10 minutes on the date of the service which included preparing to see the patient, [id number] patient care, completing clinical documentation, communicating with other HCPs (not separately reported), and communicating results to the patient/family/caregiver. [id number] Observed: 04/01/2024 12:51 PM Status: COMPLETED Source: [facility] HNO ID: [id number] Author: RENÉ CHAVEZ RN Service: ? Author Type: Registered Nurse Type: [id number] Filed: 04/01/2024 12:51 Note Text: The patient received a copy of Colonoscopy discharge instructions that contain information for how to contact the physician who performed the procedure and when to seek medical care. [facility] PATH BX REPORT Collected: 04/01/19 12:22 PM Status: F Source: [facility] Order Comment: Specimen Type : TISSUE SPECIMEN Ordering Facility: [facility] Address: [address] [place] [address] TYPE CODE TESTS RESULT OUT OF RANGE REFERENCE UNITS PATHOLOGY [id number] CASE REPORT Result Comment: Surgical Pat hology Report Case: [id number] Authorizing Provider: Dominic Ram MD Collected: 04/01/2024 12:22 PM Ordering Location: Ambulatory Surgery Received: 04/01/2024 01:10 PM Pathologist: Davi Mary MD Specimen: Rectum, Polyp PATHOLOGY [id number] FINAL DIAGNOSIS Result Comment: A. Rectum, p olypectomy: -Fragments of tubular adenoma at 1344 EST PATHOLOGY [id number] GROSS DESCRIPTION Result Comment: A. Rectum, P olyp Received in formalin are multiple segments of [...] 2024 12:03 AM Gross examination performed at [facility], [address] [place] [address] PATHOLOGY [facility] FINAL PERFORMING LAB Result Comment: Diagnostic i nterpretation performed at: [facility], [address] [place] [address] CLIA# [id number] Entertainment Dancer: Saravanan Luis MD Performed By: #### [id number] # ### [facility] CLIA [id number] [address] [place] [address] OF [facility] HISTORY PHYSICAL Observed: 04/01/2024 12:15 PM Status: COMPLETED Source: [facility] HNO ID: [id number] Author: DOMINIC ARM MD Service: General Surgery Author Type: Physician Type: H&P Filed: 04/01/2024 11:53 Note Text: HISTORY AND PHYSICAL Maria Luz Santana II : 1950 REFERRING PHYSICIAN: Ana Caisano (John) [address] [facility] [address] CHIEF COMPLAINT: Patient presents with: Consult: Positive [...] take anything OTC -denies fevers but notes he hasn't felt great. 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 Maria Luz denies [...] has undergone prior endoscopy. Last EGD at [facility] with MAC. Impression: - Anthony's esophagus [...] Stroke Mother Coronary Artery Disease Father 60 CO x 3 Blood Disease Father Heart Father Lymphoma Father Diabetes Maternal Grandmother SOCIAL HISTORY Social History Tobacco Use Smoking status: Never Smokeless tobacco: Never Vaping Use Vaping status: Never Used Substance Use Topics Alcohol use: Yes Comment: fsczgmaxjf-9-2 times monthly Drug use: No REVIEW OF [...] pulse (!) 58, height 177.8 cm (5' 10), weight 91.2 kg (201 lb), SpO2 98%. Body mass index is 28.84 kg/m?. HEENT: Normal cephalic, ataumatic, pupils are equally [...] edited and updated as necessary. Connie Ambrose APRN.CNP UPDATED HISTORY AND PHYSICAL EXAMINATION SERVICE DATE: [...] This HANDP can be found in the attached. SIGNATURE: Dominic Ram III, MD PATIENT NAME: Maria Luz Santana II DATE: April 01, 2024 TIME: 11:53 AM COLONOSCOPY Observed: 04/01/2024 11:58 AM Status: F Source: [facility] Gastrointestinal Endoscopy Patient Name: Maria Luz Santana Procedure Date: 04/01/2024 11:58 AM Date of : 1950 Admit Type: Outpatient Age: 73 Gender: Male Note Status: Finalized Procedure: Colonoscopy Indications: Positive Cologuard test Providers: Dominic Ram MD Patient Profile: This is a 73 [...] one hemostatic clip was successfully placed. 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 There was no bleeding at the end of the procedure. Non-bleeding internal hemorrhoids were found during retroflexion. The hemorrhoids were mild and small. The terminal ileum appeared normal. The exam was otherwise without abnormality. Impression: - One small (4-6 mm) polyp in the rectum, removed with a cold snare. Resected and retrieved. Clip was placed. 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 - Non-bleeding internal hemorrhoids. - The examined [...] be scheduled. Procedure Code(s): --- Professional --- 25075, Colonoscopy, flexible; with removal of tumor(s), polyp(s), or other lesion(s) by snare technique G0500, Moderate sedation services provided by the same physician or other qualified health professional healthcare representative performing a gastrointestinal endoscopic service that sedation supports, requiring the presence of an independent trained observer to assist in the monitoring of the patient's level of consciousness and physiological status; initial 15 minutes of intra-service time; patient age 5 years or older (additional time may be reported with 02543, as appropriate) [address]7847, Moderate sedation; each additional 15 minutes intraservice time Diagnosis Code(s): --- Professional --- D12.8, Benign neoplasm of rectum K64.8, Other hemorrhoids R19.5, Other fecal abnormalities CPT copyright 2020 [employer]. All rights reserved. The codes documented in this report are preliminary and upon director specialty review may be revised to meet current compliance requirements. Attending Participation: I personally performed the entire procedure. Scope In: 12:05:10 PM Scope Out: 12:25:56 PM MD Dominic Barney MD 04/01/2024 12:29:41 PM This report has been signed electronically by Dominic Ram MD Number of Addenda: 0 Note Initiated On: 04/01/2024 11:58 AM Estimated Blood Loss: Estimated blood loss was minimal. PROGRESS Observed: 03/25/2024 1:00 PM Status: COMPLETED Source: [facility] HNO ID: [id number] Author: CONNIE AMBROSE APRN.FOUNDRY WORKER APPRENTICE Service: ? Author Type: Nurse Practitioner Type: Progress Notes Filed: 03/25/2024 13:18 Note Text: HISTORY AND PHYSICAL Maria Luz Santana II : 1950 REFERRING PHYSICIAN: Ana Casiano ([facility]) [address] [facility] [address] [facility] [address] CHIEF COMPLAINT: Patient presents with: Consult: Positive [...] take anything OTC -denies fevers but notes he hasn't felt great. 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 Maria Luz denies [...] has undergone prior endoscopy. Last EGD at [facility] with MAC. Impression: - Anthony's esophagus [...] Stroke Mother Coronary Artery Disease Father 60 CO x 3 Blood Disease Father Heart Father Lymphoma Father Diabetes Maternal Grandmother Social History Tobacco Use Smoking status: Never Smokeless tobacco: Never Vaping Use Vaping status: Never Used Substance Use Topics Alcohol use: Yes Comment: jtlgjwomso-5-0 times monthly Drug use: No REVIEW OF [...] pulse (!) 58, height 177.8 cm (5' 10), weight 91.2 kg (201 lb), SpO2 98%. Body mass index is 28.84 kg/m?. HEENT: Normal cephalic, ataumatic, pupils are equally [...] edited and updated as necessary. Connie Ambrose APRN.CNP CNOV Observed: 03/25/2024 1:00 PM Status: COMPLETED Source: [facility] MARIA LUZ SANTANA II ([id number]) 1950 M Date Time Provider Department 03/25/24 1:00 PM CONNIE AMBROSE During your visit today, we recorded the following information about you: Pulse Blood pressure Weight Height 58/minute 111/72 91.2 kg 1.778 m Connie Ambrose APRN.FOUNDRY WORKER APPRENTICE 03/25/2024 1:18 PM Signed HISTORY AND PHYSICAL Maria Luz Santana II : 1950 REFERRING PHYSICIAN: Ana Casiano ([facility]) [address] [place] [id number] CHIEF COMPLAINT: Patient presents with: Consult: Positive [...] take anything OTC -denies fevers but notes he hasn't felt great. 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 Maria Luz denies a change in bowel habits. Maria Luz denies melena. Maria Luz denies bright red blood per rectum. Maria Luz denies hemorrhoids. Maria Luz denies family history of colon issues. Maria Luz also notes an increase in acid reflux since developing diarrhea 3 days ago. Maria Luz follows with [facility] for hx of SVT. Last OV 01/02- no changes made. Denies CP, SOB, dizziness, palpitations, syncope, edema, recent hospitalizations Hx of STEPHANY c/w BiPAP Maria Luz has a hx of Anthony's esophagus which is managed by Dr. Miranda. He has hx of Toupet fundoplication. No longer taking PPIs. Last EGD 09/2023. Maria Luz has undergone prior endoscopy. Last EGD at [facility] with [facility]. Impression: - Anthony's esophagus noted. - 3 [...] RPR PARAESPHGL HRNA INCL FUNDPLSTY W/MESH 05/12/2023 Toet; Dr. Sullivan NEPHRECTOMY PARTIAL Left 2020 VASECTOMY UNI/BI SPX W/POSTOP SEMEN EXAMS FAMILY HISTORY Problem Relation Age of Onset Allergies Mother Diabetes Mother Hypertension Mother Stroke Mother Coronary Artery Disease Father 60 CO x 3 Blood Disease Father Heart Father Lymphoma Father Diabetes Maternal Grandmother Social History Tobacco Use Smoking status: Never Smokeless tobacco: Never Vaping Use Vaping status: Never Used Substance Use Topics Alcohol use: Yes Comment: kuunstsfyk-0-7 times monthly Drug use: No REVIEW OF [...] pulse (!) 58, height 177.8 cm (5' 10), weight 91.2 kg (201 lb), SpO2 98%. Body mass index is 28.84 kg/m?. HEENT: Normal cephalic, ataumatic, pupils are equally [...] edited and updated as necessary. Connie Ambrose APRN.FOUNDRY WORKER APPRENTICE Referring Provider: ANA CASIANO [[id number]] Allergies As of Date: 03/25/2024 Noted Allergy [...] Date Reviewed: 03/25/2024 Reviewed by: Connie Ambrose APRN.FOUNDRY WORKER APPRENTICE - Fully Assessed Reason for Visit: Consult [173] Cmt: Positive cologuard Primary Visit Diagnosis:Positive colorectal cancer screening using Cologuard test [R19.5] Other Visit Diagnosis:Diarrhea, unspecified type [R19.7] Order(s):peg 3350-Electrolytes (GOLYTELY) 236-22.74-6.74 -5.86 gram suspensionTake 4,000 mL by mouth one time only for 1 dose. Refer to printed prep instructions from your provider.Disp: 4000 mLRfl: 0 COLONOSCOPY DIAGNOSTIC [GI11] Order #: [id number] FUTURE Prescriptions as of 03/25/2024 - indapamide (LOZOL) 1.25 mg tablet Take 1 tablet by mouth every afternoon. - cranberry fruit (CRANBERRY) 450 mg tab once daily. - flaxseed oil (OMEGA 3 ORAL) Take by mouth. - Magnesium 200 mg tab Take by mouth once daily. - peg 3350-Electrolytes (GOLYTELY) 236-22.74-6.74 -5.86 gram suspension Take 4,000 mL by mouth one time only for 1 dose. Refer to printed prep instructions from your provider. - dilTIAZem (CARDIZEM) 60 mg tablet Take 1 tablet by mouth every 12 hours. - lisinopril (ZESTRIL) 20 mg tablet Take 1 tablet by mouth every 12 hours. - loratadine (CLARITIN) 10 mg tablet Take 10 mg by mouth as needed for cold/allergy symptoms. Medication notes this encounter LISINOPRIL 20 MG TABLET >> Karen Mcclellan MA 03/25/2024 12:46 PM >> KAREN MCCLELLAN Mar 25, 2024 12:46 PM 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] 05/05/2023 Tachyarrhythmia [R00.0] 05/05/2023 Migraine with aura [G43.109] 05/05/2023 History of kidney cancer [Z85.528] 05/05/2023 STEPHANY (obstructive sleep apnea) [G47.33] 05/05/2023 Primary hypertension [I10] 05/05/2023 Other specified anemias [D64.89] 05/05/2023 Thrush of mouth and esophagus (HCC) (HCC) [B37*09/24/2023 Prescriptions ordered this encounter Disp Refills Start End PEG 3350-ELECTROLYTES 236 GRAM-22.74* 4000* 0 03/25/2024 03/25/2024 Route: ORAL Sig: Take 4,000 mL by mouth one time only for 1 dose. Refer to printed prep instructions from your provider. Medications Discontinued During This Encounter Prescriptions - allopurinol (ZYLOPRIM) 100 mg tablet (Discontinued) Take 200 mg by mouth once daily. - ergocalciferol 50,000 unit capsule (VITAMIN D2, DRISDOL) (Discontinued) Reported on 03/25/2024 - famotidine (PEPCID) 20 mg tablet (Discontinued) Take 1 tablet by mouth every 12 hours. - hydrochlorothiazide 12.5 mg tablet (Discontinued) Take 12.5 mg by mouth once daily. Two tablets - nystatin (MYCOSTATIN) 100,000 unit/mL suspension (Discontinued) swish and spit 1 ml BY MOUTH FOUR TIMES DAILY for 1 minute - pantoprazole DR (PROTONIX) 40 mg tablet (Discontinued) Take 40 mg by mouth once daily. Encounter Status:Closed by CONNIE AMBROSE on 03/25/24 CNPN Observed: 03/25/2024 12:00 AM Status: COMPLETED Source: [facility] Telephone ([facility]) MARIA LUZ SANTANA II ([id number]) 1950 M Date Time Provider Department 03/25/24 CONNIE AMBROSE Lavish Skate During your visit today, we recorded the following information about you: Bryan Pelitez 03/25/2024 2:11 PM Signed 04-01-2024 [facility]oscopy [facility] provider went over all prep information and gave patient direct number to contact Bryan Pleitez Allergies As of Date: 03/25/2024 Noted [...] Date Reviewed: 03/25/2024 Reviewed by: Connie Ambrose APRN.FOUNDRY WORKER APPRENTICE - Fully Assessed Reason for Visit: 04-01-2024 Colon [facility] [Other] Prescriptions as of 05/04/2024 - [...] esophagus (HCC) (HCC) [B37*09/24/2023 Encounter Status:Closed by BRYAN PLEITEZ on 05/04/24 PROGRESS Observed: 11/26/2023 11:41 AM Status: COMPLETED [id number] Author: GATITO SULLIVAN MD Service: ? Author [...] these symptoms all resolved. Workup: - EGD ([facility] 09/24/23): Anthony's esophagus. Small sliding hiatal hernia [...] Stroke Mother Coronary Artery Disease Father 60 CO x 3 Blood Disease Father Heart Father SOCIAL HISTORY: Social History Tobacco Use Smoking status: Never Smokeless tobacco: Never Vaping Use Vaping status: Never Used Substance Use Topics Alcohol use: Yes Comment: zedkboosnp-1-7 times monthly Drug use: No MEDICATIONS: Current [...] EXAM: BP 122/60 Pulse 65 Ht 5' 10 (1.78m) Wt 192 lb (87.1kg) BMI 27.55 [...] Decision Making Level: 4 - Moderate SIGNATURE: Gatito Sullivan MD PATIENT NAME: Maria Luz Santana II DATE: November 26, 2023 TIME: 11:42 AM PAGER/CONTACT #: [phone] CNOV Observed: 11/26/2023 11:30 AM Status: COMPLETED Source: [facility] Office Visit ([facility]) MARIA LUZ SANTANA II ([id number]) 1950 M Date Time Provider Department 11/26/23 11:30 AM GATITO SULLIVAN [facility] During your visit today, we recorded the following information about you: Pulse Blood pressure Weight Height 65/minute 122/60 87.1 kg 1.778 m Gatito Sullivan MD 11/26/2023 11:58 AM Signed SURGICAL [...] these symptoms all resolved. Workup: - EGD ([facility] 09/24/23): Anthony's esophagus. Small sliding hiatal hernia [...] Stroke Mother Coronary Artery Disease Father 60 CO x 3 Blood Disease Father Heart Father SOCIAL HISTORY: Social History Tobacco Use Smoking status: Never Smokeless tobacco: Never Vaping Use Vaping status: Never Used Substance Use Topics Alcohol use: Yes Comment: fdskwzafsa-3-7 times monthly Drug use: No MEDICATIONS: Current [...] EXAM: BP 122/60 Pulse 65 Ht 5' 10 (1.78m) Wt 192 lb (87.1kg) BMI 27.55 [...] Decision Making Level: 4 - Moderate SIGNATURE: Gatito Sullivan MD PATIENT NAME: Maria Luz Santana II DATE: November 26, 2023 TIME: 11:42 AM PAGER/CONTACT #: [phone] Allergies As of Date: 11/26/2023 Noted Allergy Reaction CORTICOSTEROIDS (GLUCOCORTICOIDS) 07/08/2018 14 [...] (FEBUXOSTAT) 03/13/2023 2 - Rash Date Reviewed: 11/26/2023 Reviewed by: Gatito Sullivan MD - Fully Assessed Reason for Visit: Established Patient [175] Primary Visit Diagnosis:Status post repair of paraesophageal diaphragmatic hernia [Z98.890, Z87.19] Other Visit Diagnoses:STEPHANY treated with BiPAP [G47.33] Anthony's esophagus without dysplasia [K22.70] Prescriptions as of 11/26/2023 - nystatin (MYCOSTATIN) 100,000 unit/mL suspension swish [...] Two tablets Problem List As Of Date 11/26/2023 Noted Resolved Pain in thoracic spine [M54.6] 04/20/2023 Pre-op examination [Z01.818] 05/05/2023 Paraesophageal hernia [K44.9] 05/05/2023 Tachyarrhythmia [R00.0] 05/05/2023 Migraine with aura [G43.109] 05/05/2023 History of kidney cancer [Z85.528] 05/05/2023 STEPHANY (obstructive sleep apnea) [G47.33] 05/05/2023 Primary hypertension [I10] 05/05/2023 Other specified anemias [D64.89] 05/05/2023 Thrush of mouth and esophagus (HCC) (HCC) [B37*09/24/2023 Disposition: Return if symptoms worsen or fail to improve. Follow-up and Disposition History for Encounter Date Provider Department Center 11/26/2023 [id number] SULLIVAN4 Susie Stevens Letter Text Encounter Status:Closed by GATITO SULLIVAN on 11/26/23 PROGRESS Observed: 11/16/2023 9:08 AM Status: COMPLETED Source: [facility] HNO ID: [id number] Author: ?, ?, ? Service: ? Author Type: ? Type: Progress Notes Filed: 11/16/2023 09:10 Note Text: Appointment canceled. [place] ALLERGIES DATE TYPE / CODE NAME / CODE REACTION SEVERITY SOURCE 05/21/2023 DRUG INGREDI/59329 1003(SNOMED CT) FLUCONAZOLE INTOLERANCE [facility] 03/13/2023 DRUG INGREDI/16517 1003(SNOMED CT) LEVOFLOXACIN RASH [facility] 03/13/2023 DRUG INGREDI/10105 1003(SNOMED CT) OMEPRAZOLE ITCHING [facility] 03/13/2023 DRUG INGREDI/09313 1003(SNOMED CT) PANTOPRAZOLE ITCHING [facility] 03/13/2023 DRUG INGREDI/81291 1003(SNOMED CT) FEBUXOSTAT RASH [facility] 07/08/2018 Drug Class/5428524 03(SNOMED CT) CORTICOSTEROIDS (GLUCOCORTICOIDS) OTHER: SEE C [facility] 07/08/2018 Drug Class/3226337 03(SNOMED CT) EGG DERIVED OTHER: SEE [facility] 07/08/2018 Drug Class/0198869 03(SNOMED CT) MILK CONTAINING PRODUCTS (DAIRY) DIARRHEA [facility] 05/10/2015 DRUG INGREDI/77002 1003(SNOMED CT) BETAMETHASONE DIPROPIONATE SWELLING [facility] 10/01/2013 Drug Class/4105948 03(SNOMED CT) PENICILLINS SWELLING [facility] ENCOUNTERS ADMIT/DISCHARGE ACCOUNT NUMBER ADMITTING ENCOUNTER CLASS LOC ATION SOURCE 10/17/2024/ 5 [id number] [facility]UROL [facility] 04/08/2024/ 5 [id number] [facility] Hospital[facility] ing:WOGS [facility] 04/01/2024/ 5 [id number] [facility]:ASWS [facility] 03/25/2024/ 5 [id number] [facility]:WOGS [facility] 11/26/2023/ 4 [id number] [facility] 08/28/2023 [id number] [facility] PAYERS ENCOUNTER GUARANTOR PAYER SUBSCRIBER SOURCE 10/17/2024 Primary Insuranc e:MEDICARE A AND BPolicy Number: [id number] Date:5428-75-32Vren Name:Iris SANTANA IIDOB: [id number] [place], [place] [address] [place] [address] 10/17/2024 Secondary Insura nce:[place] MEDICARE SUPPLEMENTPolicy Number: [id number] Date:5116-30-96Vjxi Name:Jaspal SANTANA IIDOB: [id number] [place], [place] [address] [place] [address] 04/08/2024 Primary Insuranc e:MEDICARE A AND BPolicy Number: [id number] Date:2002-22-32Hvat Name:Iris SANTANA IIDOB: [id number] [place], [place] [address] [place] [address] 04/08/2024 Secondary Insura nce:[place] MEDICARE SUPPLEMENTPolicy Number: [id number] Date:8872-08-12Jvlp Name:Jaspal SANTANA IIDOB: [id number] [place], [place] [address] [place] [address] 04/01/2024 Primary Insuranc e:MEDICARE A AND BPolicy Number: [id number] Date:9966-73-47Iois Name:Iris SANTANA IIDOB: [id number] [place], [place] [address] [place] [address] 04/01/2024 Secondary Insura nce:[place] MEDICARE SUPPLEMENTPolicy Number: [id number] Date:2260-05-99Oxdk Name:Jaspal SANTANA IIDOB: [id number] [place], [place] [address] [place] [address] 03/25/2024 Primary Insuranc e:MEDICARE A AND BPolicy Number: [id number] Date:8860-23-88Nyqm Name:Iris SANTANA IIDOB: [id number] [place] [address] [facility] 03/25/2024 Secondary Insura nce:[place] MEDICARE SUPPLEMENTPolicy Number: [id number] Date:2031-18-48Qknd Name:Jaspal MARIA LUZ SANTANA IIDOB: [id number] [place] [address] [facility] 11/26/2023 Primary Insuranc e:MEDICARE A AND BPolicy Number: [id number] Date:6715-44-89Dpat Name:Iris SANTANA IIDOB: [id number] [place], [place] [address] [place] [address] 11/26/2023 Secondary Insura nce:[place] MEDICARE SUPPLEMENTPolicy Number: [id number] Date:3521-26-77Fybn Name:Jaspal SANTANA IIDOB: [id number] [place], [place] [address] [place] [address] 08/28/2023 Primary Insuranc e:MEDICARE A AND BPolicy Number: [id number] Date:1567-09-81Ynha Name:Iris SANTANA IIDOB: [id number] [place] [address] [facility] 08/28/2023 Secondary Insura nce:[place] MEDICARE SUPPLEMENTPolicy Number: [id number] Date:7766-24-31Fwcj Name:Jaspal SANTANA IIDOB: [id number] [address] [facility] [place] [address] [facility]
--- NOTE | 2024-11-03 14:26 | PAT.ANESEVAL ---
Pre-Assessment Diagnosis/Proposed Procedure Planned Operative Procedure(s): EGD Anesthesia History Anesthesia History - material man: Anesthesia History - material man Hx Hospitalization No 11/03/24 14:11 Any Problems With Anesthesia No 11/03/24 14:11 Cholinesterase deficiency No 11/03/24 14:11 You/Your Family Experience No 11/03/24 14:11 fever (hyperthermia) with Relationship Recent Exposure to Contagious No 10/06/24 08:46 Disease Does patient have nerve No 11/03/24 14:11 stimulator Patient instructed to have device shut off --Does patient have Pacemaker or ICD? When Was Last Pacemaker Check QUESTION #4 FULL TEXT: You/Your Family Experience fever (hyperthermia) with Anesthesia Last Oral Intake Last Oral intake: Last Oral Intake NPO since Meds taken in AM with sips of water? Meds patient instructed to take am of surgery PONV PONV - material man: PONV - material man Female No 11/03/24 14:11 HX of Motion Sickness No 11/03/24 14:11 HX of N/V After Surgery No 11/03/24 14:11 Non-Smoker Yes 11/03/24 14:11 Duration of Surgery greater No 11/03/24 14:11 than 60 minutes Number of Risk Factors 1 11/03/24 14:11 PONV Score Low Risk 11/03/24 14:11 Height & Weight Height & Weight: Anesthesia: Height & Weight Height 5 ft 8 in 10/06/24 08:46 Respiratory Assessment Respiratory Assessment - material man: Respiratory Tract Infection Hx - material man Hx Respiratory Tract Infection No 11/03/24 14:11 STOP Sleep Apnea STOP Sleep Apnea - material man: STOP Sleep Apnea - material man Hx Hypertension Yes: CONTROLLED WITH MEDS 11/03/24 14:11 Hx Sleep Apnea Yes 11/03/24 14:11 CPAP No 11/03/24 14:11 BIPAP Yes 11/03/24 14:11 Do you snore loudly (louder than talking or can be heard Do you often feel tired/ fatigued/ sleepy during daytime? Has anyone observed you stop breathing during sleep? STOP Results Positive 11/03/24 14:11 QUESTION #5 FULL TEXT : Do you snore loudly (louder than talking or can be heard through closed doors)? Tobacco Use History Tobacco Use History - material man: Tobacco Use History - material man Tobacco Use Non-smoker 10/06/24 08:46 Smoking Status Never smoker 11/03/24 14:11 Hx Tobacco Use No 11/03/24 14:11 Years Smoking Packs Smoked per Day Smoking Cessation Date was within the last 15 years Hx Smoking Cessation Date Hx Smoking Cessation Counseling Hematologic Medial History Hematologic Hx - material man: Hematologic Medical Hx - needle loom tender Hx of Blood Transfusion No 11/03/24 14:11 Hx of Transfusion in last 3 No 11/03/24 14:11 Months Date of Last Transfusion (if within last 3 months) Ever experience any problems No 11/03/24 14:11 with transfusion(s)? Specify any problems Hx of Preganancy in last 3 N/A 11/03/24 14:11 Months Nurse Filling Out Transfusion JZOLLINGE 11/03/24 14:11 & Questions: Date: 11/03/24 11/03/24 14:11 Time: 14:11 11/03/24 14:11 Patient unable to answer at this time (ie. confused, unrespo /Reproduction History /Reproductive History - material man: /Reproductive Hx- material man Hx Now No 11/03/24 14:11 Gestational Age (in weeks): EDC: Hx Hx Para Hx Section SAB No 11/03/24 14:11 PFSH Medical History Gastric reflux BiPAP (biphasic positive airway pressure) dependence History of echocardiogram Fracture, rib Right foot strain Barretts esophagus (01/05/23) Cancer Alcohol use History of irregular heartbeat History of renal cell cancer History of renal disease Wears hearing aid Wears glasses Gout Migraine headache Difficulty swallowing Non-smoker Chronic cough Personal history of supraventricular tachycardia History of stress test Cardiology follow-up encounter Obesity Hyperuricemia Eczema Essential hypertension Fracture of right patella Fracture of right radius Osteoporosis Fracture of radial head, left, closed Closed left hip fracture Home Medications ?Medication ?Instructions ?Recorded ?Last Taken ?Type lisinopril 20 mg tablet 20 mg PO BID HTN 02/20/21 06/12/21 History diltiazem HCl 120 mg 120 mg PO BID 08/14/23 Unknown History capsule,extended release 24 hr, controlled (DILT-XR) indapamide 1.25 mg tablet 1.25 mg PO QAM 08/19/24 Unknown History aspirin 81 mg tablet,delayed 81 mg PO DAILY #90 tabs 09/29/24 Unknown Rx release (Adult Aspirin Regimen) cranberry fruit 400 mg tablet 400 mg PO BID 09/29/24 Unknown History atorvastatin 40 mg tablet (Lipitor) 40 mg PO QDAY #90 tabs 10/31/24 Unknown Rx ranolazine 500 mg tablet,extended 500 mg PO BID #60 tabs 10/31/24 Unknown Rx release,12 hr timolol maleate 0.5 % eye drops 1 drp ophthalmic (eye) BID 10/31/24 10/31/24 History tadalafil 5 mg tablet 5 mg PO DAILY 11/03/24 Unknown History Allergy/AdvReac Type Severity Reaction Status Date / Time Egg Derived Allergy Severe Food Verified 11/03/24 11:50 Allergy febuxostat (From Uloric) Allergy Intermediate Other Verified 11/03/24 11:50 levofloxacin (From Levaquin) Allergy Intermediate Nausea/Vom/ Verified 11/03/24 11:50 Diarrhea Penicillins Allergy Anaphylaxis Verified 11/03/24 11:50 omeprazole AdvReac Intermediate Rash Verified 11/03/24 11:50 pantoprazole (From Protonix) AdvReac Intermediate Hives Verified 11/03/24 11:50 Corticosteroids AdvReac Hypertensio Verified 11/03/24 11:50 (Glucocorticoids) (steroids) n Milk Containing Products AdvReac Diarrhea Verified 11/03/24 11:50 (Dairy) (Milk Containing Products) Family History Mother Diabetes Dementia Heart disease tachycardia Father Heart disease Leukemia Surgical History (Updated 11/03/24 @ 14:11 by Constance Hope) History of cardiac catheterization History of repair of hiatal hernia History of esophagogastroduodenoscopy (EGD) History of colonoscopy History of partial nephrectomy History of mandibular surgery History of hip surgery Social History household members: spouse current occupational status: retired Smoking Status: Never smoker alcohol intake: current alcohol intake frequency: a few times a week Alcohol type: beer substance use type: does not use diet: lactose free caffeine: No what type of physical activity do you participate in: walking and bicycling frequency: 3-4 times per week Audit: Pertinent Findings Pertinent Findings EKG Perinent findings: 09/03/2024. Sinus bradycardia at 50 bpm. Cannot rule out inferior infarct, age undetermined. Stress test pertinent findings: February 28, 2022. EF is 70%. No areas of reversibility to suggest ischemia. No previous infarct. Echo (EF%) pertinent findings: February 28, 2022. EF of 60%. PASP is 32 mmHg. No aortic stenosis is noted. Heart catheterization pertinent findings: 10/31/2024. CAD in small distal LAD as well as small posterior descending artery. Recommend maximal medical therapy. Consult pertinent findings: September 29, 2024. Dr. Klein. 1. Tachyarrhythmia-diltiazem started January 29 for SVT. This appears stable. Continue diltiazem. 2. Gtglubnofpnf-owps-xmzmwlghxm. 3. Shortness of breath-along with elevated coronary calcium scores especially in the right coronary distribution. Will get left heart catheterization. (See above). 4. Elevated coronary calcium score?especially in the right coronary distribution. EKG unchanged. Will get left heart cath. (Above) Recommendation Anesthesia Recommendation Anesthesia recommendation: OPTIMIZED for anesthesia
[2024-11-08] VITALS (9 sets, daily range): BP systolic 81–98; BP diastolic 52–68; PULSE 42–63; RESP 16; TEMP 36.1; O2SAT 97–100; BMI 30.4
[2024-11-08] MEDS: Lactated Ringers 1,000 ML 15 ML IV (12:54)
--- NOTE | 2024-11-08 13:02 | PCM.HP.STD ---
HPI - General General Date of Admission: 11/08/24 Date of Service: 11/08/24 Chief Complaint: GERD HPI Narrative MARIA LUZ COHEN, is a 74 M who presents [MARIA LUZ COHEN, is a 73 M who presents to the office today for follow up. PCP OV 4.24.23 with back pain (spinal stenosis). Additional difficulty with GERD CT abd/pel 4.7.23 small gallstones; renal nodules; small hiatal hernia OV 9.8.23 Pt has previous dx of GERD. Currently taking famotidine 40mg BID. Has had increased dysphagia the last 2 months. Mostly has issues with bread and meats. Did have scopes with Dr. Castaneda 4-5 years ago. He told him he had a hiatal hernia. BM are normal. EGD 12.22.22- Short- segment Feliciano's Esophagus, LA Grade B reflux esophagitis, Medium HH. 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 Some heartburn. Denies nausea of vomiting. States he has issues with dry foods primarily. Is not taking any PPI. Is asking for f/u for Feliciano's. . ] [facility] Medical History Gastric reflux BiPAP (biphasic positive airway pressure) dependence History of echocardiogram Fracture, rib Right foot strain Barretts esophagus (01/05/23) Cancer Alcohol use History of irregular heartbeat History of renal cell cancer History of renal disease Wears hearing aid Wears glasses Gout Migraine headache Difficulty swallowing Non-smoker Chronic cough Personal history of supraventricular tachycardia History of stress test Cardiology follow-up encounter Obesity Hyperuricemia Eczema Essential hypertension Fracture of right patella Fracture of right radius Osteoporosis Fracture of radial head, left, closed Closed left hip fracture Home Medications ?Medication ?Instructions ?Recorded ?Last Taken ?Type lisinopril 20 mg tablet 20 mg PO BID HTN 02/20/21 06/12/21 History diltiazem HCl 120 mg 120 mg PO BID 08/14/23 11/08/24 History capsule,extended release 24 hr, controlled (DILT-XR) indapamide 1.25 mg tablet 1.25 mg PO QAM 08/19/24 11/08/24 History aspirin 81 mg tablet,delayed 81 mg PO DAILY #90 tabs 09/29/24 Unknown Rx release (Adult Aspirin Regimen) cranberry fruit 400 mg tablet 400 mg PO BID 09/29/24 Unknown History atorvastatin 40 mg tablet (Lipitor) 40 mg PO QDAY #90 tabs 10/31/24 Unknown Rx ranolazine 500 mg tablet,extended 500 mg PO BID #60 tabs 10/31/24 Unknown Rx release,12 hr timolol maleate 0.5 % eye drops 1 drp ophthalmic (eye) BID 10/31/24 10/31/24 History tadalafil 5 mg tablet 5 mg PO DAILY 11/03/24 Unknown History Allergy/AdvReac Type Severity Reaction Status Date / Time Egg Derived Allergy Severe Food Verified 11/03/24 11:50 Allergy febuxostat (From Uloric) Allergy Intermediate Other Verified 11/03/24 11:50 levofloxacin (From Levaquin) Allergy Intermediate Nausea/Vom/ Verified 11/03/24 11:50 Diarrhea Penicillins Allergy Anaphylaxis Verified 11/03/24 11:50 omeprazole AdvReac Intermediate Rash Verified 11/03/24 11:50 pantoprazole (From Protonix) AdvReac Intermediate Hives Verified 11/03/24 11:50 Corticosteroids AdvReac Hypertensio Verified 11/03/24 11:50 (Glucocorticoids) (steroids) n Milk Containing Products AdvReac Diarrhea Verified 11/03/24 11:50 (Dairy) (Milk Containing Products) Family History Mother Diabetes Dementia Heart disease tachycardia Father Heart disease Leukemia Surgical History History of cardiac catheterization History of repair of hiatal hernia History of esophagogastroduodenoscopy (EGD) History of colonoscopy History of partial nephrectomy History of mandibular surgery History of hip surgery Social History household members: spouse current occupational status: retired Smoking Status: Never smoker alcohol intake: current alcohol intake frequency: a few times a week Alcohol type: beer substance use type: does not use diet: lactose free caffeine: No what type of physical activity do you participate in: walking and bicycling frequency: 3-4 times per week Vital Signs Vital Signs Vital Signs: 11/08/24 12:47 11/08/24 12:47 Temperature 97 F L Temperature Source Temporal Pulse Rate 45 L Respiratory Rate 16 Respiratory Pattern Normal Blood Pressure 98/68 Blood Pressure Mean 78 Blood Pressure Source Monitor Blood Pressure Position Semi-Fowlers Blood Pressure Location Right Arm Pulse Ox 100 Oxygen Delivery Method Room Air Weight Weight: 200 lb 6.403 oz Body Mass Index (BMI) 30.4 Physical Exam Const alert, oriented x3, no apparent distress and healthy appearing General Appearance: cooperative GI normal to inspection, nondistended, normoactive bowel sounds, soft to palpation, non-tender and non-distended Percussion: normal to percussion Rectal Exam: deferred Assessment & Plan Assessment/Plan (1) GERD (gastroesophageal reflux disease): PLAN: Assessment and Plan Assessment and Plan (1) Difficulty swallowing: Status: Acute Qualifiers: Dysphagia type: esophageal phase Qualified Code(s): R13.19 - Other dysphagia Plan: Esophageal dysphagia in the setting of gastroesophageal reflux disease history of Schatzki's ring. He underwent an upper endoscopy back in October 2022. His upper endoscopy had shown LA grade B erosive esophagitis and Short segment feliciano's esophagus with he did a pH probe. The pH probe on day 1 revealed a DeMeester score of 71. The pH probe on day 2 revealed a DeMeester score 98. Most of his reflux events noted on the pH probe were in the supine position. Since I have seen him approximately 2 years ago he underwent a fundoplication. Recently over the last several months he has developed some trouble swallowing around the area of the sternal notch. He does admit to longtime allergies and postnasal drip. He has tried allergy shots in the past and does take some allergy medicines. He is not sure if this trouble swallowing is secondary to his sinuses or a post surgical event. He denies any chest pain or shortness of breath. He does have some intermittent esophageal dysphagia. I explained to him the natural history of a fundoplication and typically what he can expect over a certain period of time. Recommendations: - EGD with biopsies of the distal esophagus and dilation - Decrease carbohydrate intake as the more he gets bloated the more likely is to have a problem with constipation and his bowels not moving secondary to Rodney fundoplication. - He is off of PPI therapy. We have a long talk regarding his diagnosis of short segment Feliciano's esophagus and how important it is to reduce his acid load
--- NOTE | 2024-11-08 13:16 | PCM.PRE.AN2 ---
ASA Classification* ASA Classification ASA Classification: 3 Assessment & Plan Anesthesia* Anesthesia Assessment Anesthesia Assessment: Discussed sedation and/or anesthesia options, risks, benefits, and alternatives with patient/parents/legal guardian/POA. Questions invited. The patient/parents/legal guardian/POA seems to understand and agrees to proceed with anesthesia plan. Reviewed the physical assessment, medical history, allergy history and patient home medications list prior to surgery/procedure/anesthetic and documented any changes. Performed airway and anesthesia risk assessments. Anesthesia Type Anesthesia Type: MAC History Source History Obtained from:: Patient and Chart Anesthesia Focused Assessment* Temperature: 97 F Pulse Rate: 45 Blood Pressure: 98/68 Respiratory Rate: 16 Pulse Ox: 100 Oxygen Delivery Method: Room Air Airway Assessment Mouth opens: >3 cm Mallampati Score: I Teeth Condition: Intact Neck Range of motion (ROM): Limited ROM (Somewhat Decreased) Labs Anesthesia Preop lab: CBC WBC, (4.4-11.0) 5.3 K/mm3 10/19/24, 11:48 RBC, (4.6-6.2) 3.85 M/mm3 L 10/19/24, 11:48 Hgb, (13.0-16.5) 12.6 g/dL L 10/19/24, 11:48 Hct, (40-54) 36.8 % L 10/19/24, 11:48 Plt Count, (150-450) 200 K/mm3 10/19/24, 11:48 CHEMISTRY Potassium, (3.3-5.1) 3.9 mmol/L 10/19/24, 11:46 Sodium, (133-145) 139 mmol/L 10/19/24, 11:46 Magnesium, (1.5-2.2) 2.3 mg/dL H 09/03/24, 08:03 Phosphorus, (2.5-4.9) 2.8 mg/dL 06/13/21, 10:28 BUN, (4-19) 15 mg/dL 10/19/24, 11:46 Creatinine, (0.70-1.20) 1.04 mg/dL 10/19/24, 11:46 Glucose, (70-99) 90 mg/dL 10/19/24, 11:46 TSH, (0.300-4.200) 1.230 uIU/mL 09/05/24, 16:08 COAG PT, (11.7-14.9) 13.3 SECONDS 03/19/18, 09:23 Pre-Assessment Diagnosis/Proposed Procedure Planned Operative Procedure(s): EGD Anesthesia History Anesthesia History - laboratory inspector: Anesthesia History - laboratory inspector Hx Hospitalization No 11/03/24 14:11 Any Problems With Anesthesia No 11/03/24 14:11 Cholinesterase deficiency No 11/03/24 14:11 You/Your Family Experience No 11/03/24 14:11 fever (hyperthermia) with Relationship Recent Exposure to Contagious No 11/08/24 12:47 Disease Does patient have nerve No 11/03/24 14:11 stimulator Patient instructed to have device shut off --Does patient have Pacemaker No 11/08/24 12:47 or ICD? When Was Last Pacemaker Check QUESTION #4 FULL TEXT: You/Your Family Experience fever (hyperthermia) with Anesthesia Last Oral Intake Last Oral intake: Last Oral Intake NPO since 07:00 11/08/24 12:47 Meds taken in AM with sips of Yes 11/08/24 12:47 water? Meds patient instructed to take am of surgery Any additional information?: Yes NPO since: 07:00 (Patient had water at 7 AM.) Meds taken in AM with sips of water?: Yes PONV PONV - laboratory inspector: PONV - laboratory inspector Female No 11/03/24 14:11 HX of Motion Sickness No 11/03/24 14:11 HX of N/V After Surgery No 11/03/24 14:11 Non-Smoker Yes 11/03/24 14:11 Duration of Surgery greater No 11/03/24 14:11 than 60 minutes Number of Risk Factors 1 11/03/24 14:11 PONV Score Low Risk 11/03/24 14:11 Height & Weight Height & Weight: Anesthesia: Height & Weight Height 5 ft 8 in 11/08/24 12:47 Weight: 90.9 kg 11/08/24 12:47 Body Mass Index (BMI) 30.4 11/08/24 12:47 Respiratory Assessment Respiratory Assessment - laboratory inspector: Respiratory Tract Infection Hx - laboratory inspector Hx Respiratory Tract Infection No 11/03/24 14:11 STOP Sleep Apnea STOP Sleep Apnea - laboratory inspector: STOP Sleep Apnea - laboratory inspector Hx Hypertension Yes: CONTROLLED WITH MEDS 11/03/24 14:11 Hx Sleep Apnea Yes 11/03/24 14:11 CPAP No 11/03/24 14:11 BIPAP Yes 11/03/24 14:11 Do you snore loudly (louder than talking or can be heard Do you often feel tired/ fatigued/ sleepy during daytime? Has anyone observed you stop breathing during sleep? STOP Results Positive 11/03/24 14:11 QUESTION #5 FULL TEXT : Do you snore loudly (louder than talking or can be heard through closed doors)? Tobacco Use History Tobacco Use History - laboratory inspector: Tobacco Use History - laboratory inspector Tobacco Use Non-smoker 10/06/24 08:46 Smoking Status Never smoker 11/03/24 14:11 Hx Tobacco Use No 11/03/24 14:11 Years Smoking Packs Smoked per Day Smoking Cessation Date was within the last 15 years Hx Smoking Cessation Date Hx Smoking Cessation Counseling Hematologic Medial History Hematologic Hx - laboratory inspector: Hematologic Medical Hx - nursing program coordinator Hx of Blood Transfusion No 11/03/24 14:11 Hx of Transfusion in last 3 No 11/03/24 14:11 Months Date of Last Transfusion (if within last 3 months) Ever experience any problems No 11/03/24 14:11 with transfusion(s)? Specify any problems Hx of Preganancy in last 3 N/A 11/03/24 14:11 Months Nurse Filling Out Transfusion [email or web address] 11/03/24 14:11 & Questions: Date: 11/03/24 11/03/24 14:11 Time: 14:11 11/03/24 14:11 Patient unable to answer at this time (ie. confused, unrespo /Reproduction History /Reproductive History - laboratory inspector: /Reproductive Hx- laboratory inspector Hx Now No 11/03/24 14:11 Gestational Age (in weeks): EDC: Hx Hx Para Hx Section SAB No 11/03/24 14:11 Active Medications Active Medications: Current Medications Generic Name Dose Route Start Last Admin Trade Name Freq PRN Reason Stop Dose Admin Lactated Ringer's 1,000 mls @ 15 mls/hr 11/08/24 13:00 11/08/24 12:54 IV 15 mls/hr .Q48H RILEY Administration PFSH Medical History Gastric reflux BiPAP (biphasic positive airway pressure) dependence History of echocardiogram Fracture, rib Right foot strain Barretts esophagus (01/05/23) Cancer Alcohol use History of irregular heartbeat History of renal cell cancer History of renal disease Wears hearing aid Wears glasses Gout Migraine headache Difficulty swallowing Non-smoker Chronic cough Personal history of supraventricular tachycardia History of stress test Cardiology follow-up encounter Obesity Hyperuricemia Eczema Essential hypertension Fracture of right patella Fracture of right radius Osteoporosis Fracture of radial head, left, closed Closed left hip fracture Home Medications ?Medication ?Instructions ?Recorded ?Last Taken ?Type lisinopril 20 mg tablet 20 mg PO BID HTN 02/20/21 06/12/21 History diltiazem HCl 120 mg 120 mg PO BID 08/14/23 11/08/24 History capsule,extended release 24 hr, controlled (DILT-XR) indapamide 1.25 mg tablet 1.25 mg PO QAM 08/19/24 11/08/24 History aspirin 81 mg tablet,delayed 81 mg PO DAILY #90 tabs 09/29/24 Unknown Rx release (Adult Aspirin Regimen) cranberry fruit 400 mg tablet 400 mg PO BID 09/29/24 Unknown History atorvastatin 40 mg tablet (Lipitor) 40 mg PO QDAY #90 tabs 10/31/24 Unknown Rx ranolazine 500 mg tablet,extended 500 mg PO BID #60 tabs 10/31/24 Unknown Rx release,12 hr timolol maleate 0.5 % eye drops 1 drp ophthalmic (eye) BID 10/31/24 10/31/24 History tadalafil 5 mg tablet 5 mg PO DAILY 11/03/24 Unknown History Allergy/AdvReac Type Severity Reaction Status Date / Time Egg Derived Allergy Severe Food Verified 11/03/24 11:50 Allergy febuxostat (From Uloric) Allergy Intermediate Other Verified 11/03/24 11:50 levofloxacin (From Levaquin) Allergy Intermediate Nausea/Vom/ Verified 11/03/24 11:50 Diarrhea Penicillins Allergy Anaphylaxis Verified 11/03/24 11:50 omeprazole AdvReac Intermediate Rash Verified 11/03/24 11:50 pantoprazole (From Protonix) AdvReac Intermediate Hives Verified 11/03/24 11:50 Corticosteroids AdvReac Hypertensio Verified 11/03/24 11:50 (Glucocorticoids) (steroids) n Milk Containing Products AdvReac Diarrhea Verified 11/03/24 11:50 (Dairy) (Milk Containing Products) Family History Mother Diabetes Dementia Heart disease tachycardia Father Heart disease Leukemia Surgical History History of cardiac catheterization History of repair of hiatal hernia History of esophagogastroduodenoscopy (EGD) History of colonoscopy History of partial nephrectomy History of mandibular surgery History of hip surgery Social History household members: spouse current occupational status: retired Smoking Status: Never smoker alcohol intake: current alcohol intake frequency: a few times a week Alcohol type: beer substance use type: does not use diet: lactose free caffeine: No what type of physical activity do you participate in: walking and bicycling frequency: 3-4 times per week Review of Systems (Anesthesia) ROS Narrative System reviewed and no additional complaints, except as documented.
--- NOTE | 2024-11-08 13:30 | EGD_PTH ---
PATIENT: MARIA LUZ COHEN II LOC: EN U#:[id number] AGE/SX: 74/M ROOM: RE11/08/[address]: Dr. Kaiden Gill DO : 1950 BED: DIS: 11/08/2024 SPEC #: [id number] RECD: 11/08/24 15:22 STATUS: CODY REQ #: [id number] FAY: 11/08/24 13:[address]: Kaiden Gill DEPT: SURGICAL PATHOLOGY RECD BY: Fortino Hunter ENTERED: 11/09/24 14:56 SP TYPE: EGD BIOPSY JÚNIOR DR: Dr. Arnaldo Casiano MD Tissues: A - Esophagus, NOS Procedures: Surgery Specimen Level IV HEADER OPERATION: EGD with biopsy PRE-OP DIAGNOSIS: Difficulty swallowing TISSUE SUBMITTED: A- Distal esophagus biopsy MICROSCOPIC DIAGNOSIS A. Distal esophagus, biopsy: * Squamous mucosa with reactive changes. * Columnar mucosa with goblet cell metaplasia - see note. Note: The diagnosis depends on the location of the biopsy and the extent of the mucosal irregularity. If the biopsy originates from the tubular esophagus and the mucosal irregularity extends at least 1 cm above the top of the gastric folds, this represents Anthony mucosa. If the biopsy originates from the gastric cardia and / or the mucosal irregularity is less than 1 cm in extent, this represents intestinal metaplasia. MICROSCOPIC DESCRIPTION Slides are reviewed. GROSS DESCRIPTION A. Received in fixative is one container labeled with the patient's name and designated Distal esophagus biopsy. The specimen consists of multiple irregular fragments of sin tissue that in aggregate measure 0.8 x 0.6 x 0.1 cm. The specimen is totally submitted in one cassette. [place] 11/09/2024 CPT:39234
--- NOTE | 2024-11-08 14:01 | OP.EGD_ITS ---
Patient Name: Garcia Santana Procedure Date: 11/08/2024 1:42 PM Date of : 1950 Age: 74 Procedure: Upper GI endoscopy Indications: Dysphagia, Heartburn, Gastro-esophageal reflux disease, Follow-up of Anthony's esophagus Providers: Kaiden Gill DO Referring MD: Arnaldo Casiano Medicines: Monitored Anesthesia Care Patient Profile: This is a 74 year old male. Refer to note in patient chart for documentation of history and physical. Patient has symptoms of dysphagia with solids and chronic heartburn. Complications: No immediate complications. Procedure: Pre-Anesthesia Assessment: - Prior to the procedure, a History and Physical was performed, and patient medications and allergies were reviewed. The patient is competent. The risks and benefits of the procedure and the sedation options and risks were discussed with the patient. All questions were answered and informed consent was obtained. Patient identification and proposed procedure were verified by the physician in the pre-procedure area. Mental Status Examination: alert and oriented. Airway Examination: normal oropharyngeal airway and neck mobility. Respiratory Examination: clear to auscultation. CV Examination: normal. Prophylactic Antibiotics: The patient does not require prophylactic antibiotics. Prior Anticoagulants: The patient has taken no anticoagulant or antiplatelet agents except for NSAID medication. ASA Grade Assessment: II - A patient with mild systemic disease. After reviewing the risks and benefits, the patient was deemed in satisfactory condition to undergo the procedure. The anesthesia plan was to use monitored anesthesia care (MAC). Immediately prior to administration of medications, the patient was re-assessed for adequacy to receive sedatives. The heart rate, respiratory rate, oxygen saturations, blood pressure, adequacy of pulmonary ventilation, and response to care were monitored throughout the procedure. The physical status of the patient was re-assessed after the procedure. After obtaining informed consent, the endoscope was passed under direct vision. Throughout the procedure, the patient's blood pressure, pulse, and oxygen saturations were monitored continuously. The gastroscope was introduced through the mouth, and advanced to the second part of duodenum. The upper GI endoscopy was accomplished without difficulty. The patient tolerated the procedure well. Scope In: 1:52:16 PM Scope Out: 1:55:44 PM Total Procedure Duration Time 0 hours 3 minutes 28 seconds Findings: There were esophageal mucosal changes secondary to established long-segment Anthony's disease present in the lower third of the esophagus. The maximum longitudinal extent of these mucosal changes was 5 cm in length. Mucosa was biopsied with a cold forceps for histology in a targeted manner at intervals of 1 cm in the lower third of the esophagus. One specimen bottle was sent to pathology. Verification of patient identification for the specimen was done. Estimated blood loss was minimal. Evidence of a fundoplication was found in the gastric fundus. The wrap appeared loose. This was traversed. No other significant abnormalities were identified in a careful examination of the stomach. No gross lesions were noted in the entire examined duodenum. Impression: - Esophageal mucosal changes secondary to established long-segment Anthony's disease. Biopsied. - A fundoplication was found. The wrap appears loose. - No gross lesions in the entire examined duodenum. Recommendation: - Discharge patient to home. - Resume previous diet. - Continue present medications. - Await pathology results. Procedure Code(s): --- Professional --- 54563, Esophagogastroduodenoscopy, flexible, transoral; with biopsy, single or multiple CPT copyright 2021 [employer]. All rights reserved. The codes documented in this report are preliminary and upon staff development educator review may be revised to meet current compliance requirements. Kaiden Gill DO 11/08/2024 2:01:06 PM This report has been signed electronically. Number of Addenda: 0 Note Initiated On: 11/08/2024 1:42 PM
--- NOTE | 2024-11-08 14:01 | OP.PROVAT_ITS ---
11/08/2024 Arnaldo Casiano [address] [place] [address] Re : Upper GI endoscopy procedure for Garcia Santana Dear Dr. Casiano This procedure was performed on Friday, November 08, 2024. My impressions and recommendations are as follows: Impressions : - Esophageal mucosal changes secondary to established long-segment Anthony's disease. Biopsied. - A fundoplication was found. The wrap appears loose. - No gross lesions in the entire examined duodenum. Recommendations : - Discharge patient to home. - Resume previous diet. - Continue present medications. - Await pathology results. My findings are described in the full procedure note, which is enclosed. If I can be of further assistance, please feel free to contact me at . Sincerely, Kaiden Gill, 11/08/2024 2:01:06 PM This report has been signed electronically.
--- NOTE | 2024-11-08 14:11 | PCM.POST.ANE ---
Anesthesia: Postop Eval I Current Vital Signs Temperature: 97 F Pulse Rate: 57 Blood Pressure: 88/55 Respiratory Rate: 16 Pulse Ox: 100 Oxygen Delivery Method: Room Air Assessment Airway patent: Yes Spontaneous unlabored respirations: Yes Mental status: Awake and Calm nausea: No Vomiting: No Anesthesia Complication: No Fluid Hydration Crystalloid volume administer (ml): 400 Total IV fluid infused: 400 Progress Note Anesthesia document: Postop Eval 1 completed: Yes
--- NOTE | 2024-11-08 21:59 | PCM.POSTANE2 ---
Anesthesia Postop Eval I Sum Postop Eval Completion status Anesthesia document: Postop Eval 1 completed: Yes Anesthesia Postop Eval I Summary Anesthesia Postop Eval I Summary: Anesthesia Postop Eval I: Assessment Summary Airway patent Yes 11/08/24 14:11 [email or web address] Spontaneous unlabored Yes 11/08/24 14:11 [email or web address] respirations Mental status Awake,Calm 11/08/24 14:11 [email or web address] nausea No 11/08/24 14:11 [email or web address] Vomiting No 11/08/24 14:11 [email or web address] Anesthesia Postop Eval I: Fluid Summary Crystalloid volume administer 400 11/08/24 14:11 [email or web address] (ml) Colloids volume administered ( ml) Blood Product volume administered (ml) Total IV fluid infused 400 11/08/24 14:11 [email or web address] Anesthesia Postop Eval I: Summary Notes Anesthesia Complication No 11/08/24 14:11 [email or web address] Anesthesia Complication Comment: Post-operative progress note Anesthesia: Postop Eval II Evaluation Mental status: Awake and Calm Pain Level: 0 nausea: No Vomiting: No Complications Anesthesia Complication: No
== END 2024-11-08 14:47 | disposition home or self-care (01) ==
LOC: EN 12:14 → AC 12:15
PROVIDERS: PCP Family Medicine; Referring Provider Family Medicine; Visit Provider Internal Medicine Gastroenterology
PROC: 0DJ08ZZ Inspection of Upper Intestinal Tract, Via Natural or Artificial Opening Endoscopic (ICD-10-PCS; CPT 43235; principal; 2024-11-08 13:25)
DX: R13.10 Dysphagia, unspecified (principal); K21.9 Gastro-esophageal reflux disease without esophagitis; I10 Essential (primary) hypertension; K22.70 Barrett's esophagus without dysplasia; Z85.89 Personal history of malignant neoplasm of other organs and systems; Z79.899 Other long term (current) drug therapy; Z79.82 Long term (current) use of aspirin; Z90.5 Acquired absence of kidney
CPT/HCPCS: 43239; 88305; J2405

== ENCOUNTER → 2024-12-30 | Outpatient (CLI) | payer MEDICARE, OTHER, SELFPAY ==
[2024-12-30 16:04] LABS: CRP < 3.00 mg/L (0.0-3.0)
[2024-12-30 16:09] LABS: Hematocrit 34.5 % (40-54); Hemoglobin 11.9 g/dL (13.0-16.5); Mean Corp Hgb Conc 34.5 g/dL (32-36); Mean Corpuscular Volume 96.4 fL (80-94); Mean Platelet Vol. 9.7 fl (6.2-12.0); Platelet Count 164 K/mm3 (150-450); RBC Distribution Width CV 13.6 % (11.6-14.6); RBC Distribution Width SD 48.6 fl (35.1-43.9); Red Blood Count 3.58 M/mm3 (4.6-6.2); White Blood Count 5.7 K/mm3 (4.4-11.0)
== END | disposition home or self-care (01) ==
LOC: MTLAB 13:53
PROVIDERS: PCP Family Medicine; Referring Provider Ophthalmology; Visit Provider Ophthalmology
DX: R51.9 Headache, unspecified (principal)
CPT/HCPCS: 36415; 85027; 85652; 86140